=== PATIENT | female | born 1930 | race African-American/Black ===

== ENCOUNTER 2017-05-03 11:11 | Inpatient (IN) | payer OTHER ==
--- NOTE | 2017-05-03 11:15 | PDOC ---
Attending Attestation - Resident Resident Name: Abbe Guzmán - HPI HPI: 05/04/17 07:29 Pt presents to the ED complaining of shortness of breath and pleuritic upper abdominal pain. Patient has a history of COPD, and her symptoms are relieved somewhat with her inhaler. Upper abdominal pain has been present for " a while " as per her daughter, but became acutely worse today. DEnies nausea, vomiting or fever. history of renal failure with baseline Cr of 3. 05/04/17 07:41 - Physicial Exam PE: 05/04/17 07:35 Agree with resident exam. Lungs are clear with decreased air entry at the bases. Abdomen is tender in the epigastrium without guarding or rebound. Patient is tachypneic and tachycardic and appears uncomfortable. 05/04/17 07:41 - Medical Decision Making 05/04/17 08:53 Pt presents to the ED complaining of shortness of breath and upper abdominal pain. Differential included ACS, PE, biliary disease or other intraabdominal pathology, PNA. Initial EKG and troponin are negative. CT scan negative for severe intraabdominal pathology. Patient is unable to recieve contrast due to her chronic renal failure, but I am still suspcious for PE. Will anticoagulate and admit for serial cardiac enzymes and VQ scan.
[2017-05-03] MEDS ORDERED: predniSONE 20 MG TABLET (UD) PO ONE (11:23)
[2017-05-03] MEDS ORDERED: ALBUTEROL SO4 2.5/IPRATROPIUM 0.5 INH SOL 3 ML VIAL.NEB. NEB ONE (11:23)
[2017-05-03 11:24] VITALS: BMI 31.2
[2017-05-03] MEDS ORDERED: methylPREDNISolone NA SUCC 125 MG/2 ML VIAL ONE (11:31)
--- NOTE | 2017-05-03 12:02 | PDOC ---
History of Present Illness - General Chief Complaint: Shortness of Breath Stated Complaint: WEAKNESS Time Seen by Provider: 05/03/17 11:14 History Source: Patient, Family, Old Records Exam Limitations: Language Barrier - History of Present Illness Initial Comments: 05/03/17 12:05 87F Creole speaking woman with pmh of HTN, NIDDM, COPD (former smoker), SDH. CHF brought in by ambulance for increasing difficulty breathing for the past 3 days and upper right abdominal pain under her ribs, She was admitted and released from [facility] on February 19 for Nephrolithiasis treated with fluids. Patient appears tachypneic, shot of breath and tachycardic. 05/03/17 12:53 Past History - Past Medical History Allergies/Adverse Reactions: Allergies Allergy/AdvReac Type Severity Reaction Status Date / Time No Known Allergies Allergy Verified 05/03/17 11:25 Home Medications: Ambulatory Orders Albuterol Sulfate Inhaler - [Ventolin Hfa Inhaler -] 1 - 2 inh PO Q4H 05/03/17 Amlodipine Besylate [Norvasc -] 10 mg PO DAILY 05/03/17 Cyclosporine [Restasis] 1 each OP DAILY 05/03/17 Glipizide [Glipizide ER] 10 mg PO DAILY 05/03/17 Metoprolol Succinate [Toprol Xl -] 50 mg PO DAILY 05/03/17 Oxybutynin Chloride 5 mg PO DAILY 05/03/17 Pantoprazole Sodium [Protonix] 40 mg PO DAILY 05/03/17 Potassium Chloride [Klor-Con M20] 20 meq PO DAILY 05/03/17 Pregabalin [Lyrica] 75 mg PO HS 05/03/17 Rosuvastatin [Crestor -] 20 mg PO DAILY 05/03/17 Salmeterol/Fluticasone [Advair 100Mcg/50Mcg -] 1 inh PO BID 05/03/17 Tramadol HCl/Acetaminophen [Tramadol-Acetaminophn 37.5-325] 1 each PO PRN PRN Valsartan [Diovan] 160 mg PO DAILY 05/03/17 Asthma: Yes COPD: Yes Diabetes: Yes HTN: Yes Kidney Stones: Yes - Suicide/Smoking/Psychosocial Hx Smoking History: Former smoker Have you smoked in the past 12 months: No Information on smoking cessation initiated: No Hx Alcohol Use: No Drug/Substance Use Hx: No Substance Use Type: None Review of Systems - Review of Systems Able to Perform ROS?: Yes Is the patient limited Polish proficient: Yes Constitutional: No: Symptoms Reported HEENTM: No: Symptoms Reported Respiratory: Yes: Shortness of Breath, SOB at Rest, Productive cough Cardiac (ROS): Yes: Palpitations ABD/GI: No: Symptoms Reported *Physical Exam - Vital Signs Last Vital Signs Temp Pulse Resp BP Pulse Ox 97.4 F L 108 H 24 186/94 91 L 05/03/17 11:15 05/03/17 11:15 05/03/17 11:15 05/03/17 11:15 05/03/17 11:15 ED Treatment Course - LABORATORY CBC & Chemistry Diagram: 05/03/17 12:00 05/03/17 12:00 - RADIOLOGY Radiology Studies Ordered: Category Date Time Status CHEST X-RAY PORTABLE* [RAD] Stat Radiology 05/03/17 11:26 Ordered Medical Decision Making - Medical Decision Making 05/03/17 18:37 Partially distended stomach limiting evaluation of its wall with suggestion of thickening of the gastric body wall for which further evaluation with endoscopy is recommended to rule out an infectious versus infiltrative process. There is no evidence of small bowel obstruction. Small fat-containing right inguinal hernia with a herniating air filled bowel loop. Small fatcontaining left inguinal hernia. Moderate bibasal COPD changes with mild bibasal atelectatic changes and minimal right pleural effusion. Patient persistently tachycardic and with chest pain despite duoneb treatment. Elevated creatinine baseline. Will treat for PE prophylactically. *DC/Admit/Observation/Transfer Diagnosis at time of Disposition: Dyspnea, COPD exacerbation - Discharge Dispostion Admit: Yes - Referrals - Patient Instructions - Post Discharge Activity
[2017-05-03] MEDS ORDERED: morphine CARPU-JECT 2 MG/1 ML DISP.SYRIN IVPUSH ONE (12:17)
[2017-05-03 12:19] LABS: VENOUS PC02 48.8 mmHg (38-52); VENOUS PH 7.35 (7.32-7.42); VENOUS PO2 57.5 mmHg (28-48)
[2017-05-03] MEDS ORDERED: MORPHINE SULFATE 10 MG/1 ML *VIAL ONE (12:19)
[2017-05-03 12:20] LABS: BASO % 0.5 % (0-2.0); EOS % 0.8 % (0-4.5); HEMATOCRIT 33.8 % (32.4-45.2); HEMOGLOBIN 11.3 GM/dL (10.7-15.3); LYMPH % 14.9 % (8-40); MCHC 33.5 g/dl (32.0-36.0); MEAN CELL VOLUME 80.7 fl (80-96); MEAN PLT VOLUME 9.4 fl (7.5-11.1); MONO % 4.4 % (3.8-10.2); NEUT % 79.4 % (42.8-82.8); PLATELET COUNT 291 K/MM3 (134-434); RBC 4.19 M/mm3 (3.60-5.2); RDW 15.3 % (11.6-15.6); WHITE BLOOD COUNT 6.9 K/mm3 (4.0-10.0)
[2017-05-03] MEDS ORDERED: methylPREDNISolone NA SUCC 125 MG/2 ML VIAL IVPUSH ONE (12:25)
[2017-05-03 12:45] LABS: ALBUMIN 3.7 g/dl (3.4-5.0); ANION GAP 7 (8-16); BILIRUBIN,TOTAL 0.8 mg/dL (0.2-1.0); BLOOD UREA NITROGEN 27 mg/dL (7-18); CALCIUM 8.8 mg/dL (8.5-10.1); CHLORIDE 107 mmol/L (98-107); CO2 28 mmol/L (21-32); CREATININE 3.3 mg/dL (0.55-1.02); GLUCOSE,RANDOM 137 mg/dL (74-106); POTASSIUM 3.8 mmol/L (3.5-5.1); SGOT/AST 22 U/L (15-37); SGPT/ALT 26 U/L (12-78); SODIUM 142 mmol/L (136-145); TOT PROT 7.5 g/dl (6.4-8.2)
[2017-05-03 12:46] LABS: ALK PHOS 77 U/L (45-117)
[2017-05-03 12:48] LABS: INR 0.91 (0.82-1.09); PROTHROMBIN TIME (PATIENT) 10.3 SEC (9.98-11.88)
[2017-05-03 12:50] LABS: ACTIVATED PTT 31.8 SECONDS (26.9-34.4)
[2017-05-03] MEDS ORDERED: HEPARIN NA (PORCINE) 5,000 UNITS/ML 1ML VIAL IVPUSH PRN ×2 (17:02)
[2017-05-03] MEDS ORDERED: HEPARIN - 25,000 UNIT in SODIUM CHLORIDE 495 ML IV SCH (17:15)
[2017-05-03 18:15] LABS: URINE APPEARANCE CLEAR; URINE BILIRUBIN NEGATIVE (NEGATIVE); URINE BLOOD NEGATIVE (NEGATIVE); URINE COLOR LTYELLOW; URINE GLUCOSE (UA) 1+ (NEGATIVE); URINE KETONE TRACE (NEGATIVE); URINE LEUK ESTERASE NEGATIVE (NEGATIVE); URINE NITRITE NEGATIVE (NEGATIVE); URINE UROBILINOGEN NEGATIVE mg/dL (0.2-1.0)
[2017-05-03] MEDS ORDERED: HEPARIN SOD,PORK IN 0.45% NACL 25,000 UNITS/500 ML INFUS.BAG IVPB SCH (18:15)
[2017-05-03 18:44] LABS: URINE PROTEIN 3+ (NEGATIVE)
[2017-05-03] MEDS ORDERED: ALBUTEROL SO4 2.5/IPRATROPIUM 0.5 INH SOL 3 ML VIAL.NEB. NEB PRN (18:46)
--- NOTE | 2017-05-03 18:46 | PN ---
Teaching Attending Note Name of Resident: Fab Ignacio ATTENDING PHYSICIAN STATEMENT I saw and evaluated the patient. I reviewed the resident's note and discussed the case with the resident. I agree with the resident's findings and plan as documented. SUBJECTIVE: 87 yof with PMhx of HTN, NIDDM, CHF, CKD stage ?III (baseline cr 2.2 in 01/2017 as discussed with ED), remote SDH few years ago, chronic pain on tramadol, admitted to [facility] in for kidney stones managed conservatively, d/ kathryn on lasix 40 mg BID comes with vague complaints of right lower chest, right upper abdominal pain. Patient is Creole speaking and history is obtained from daughter at bedside. As discussed with daughter, patient has chronic pain concerns, generalized, had left flank pain during her admission in 01/2017, also Right upper abdominal pain /right lower chest pain that has been chronic but worsening over the last 2 weeks, prompting her to come to ED. reports sharp pain, constant aggravated by eating, deep breaths and relieve by warm compresses. Decreased PO intake over the last week. No fevers, chills, or urinary symptoms. Also reports worsening breathing (however per daughter at bedside, patient has similar breathing with any exertion or activity 12 point ROS attempted, patient vague historian, but positive as above. OBJECTIVE: Vital Signs Period Temp Pulse Resp BP Sys/Betancourt Pulse Ox Last 24 Hr 97.4 F-98 F 107-112 22-24 160-186/91-99 91-100 Intake & Output 04/30/17 05/01/17 05/02/17 05/03/17 23:59 23:59 23:59 23:59 Weight 160 lb GENERAL: anxious, holding right abdomen from pain, mouth breathing, mild use of acessory muscles of respiration HEAD: Normal with no signs of trauma. EYES: Pupils equal, round and reactive to light, extraocular movements intact, sclera anicteric, conjunctiva clear. No lid lag. EARS, NOSE, THROAT: Ears normal, nares patent, oropharynx clear without exudates. dry oral mucous membrane NECK: soft supple, neck vein distension, but neg reflux LUNGS: Breath sounds equal, clear to auscultation bilaterally. No wheezes, and no crackles. No accessory muscle use. HEART: regular tachycardic ABDOMEN: Soft, throughout, obese, right ruth-umbilical RUQ tenderness, also tenderness along right rib margin, no voluntary or involuntary guarding or rigidity, non specific moaning on exam. MUSCULOSKELETAL: Normal range of motion at all joints. No bony deformities or tenderness. left CVA tenderness (jumps in bed when examined) UPPER EXTREMITIES: 2+ pulses, warm, well-perfused. No cyanosis. No clubbing. No peripheral edema. LOWER EXTREMITIES: 2+ pulses, warm, well-perfused. No calf tenderness. No peripheral edema. NEUROLOGICAL: Cranial nerves II-XII intact. Normal speech. PSYCHIATRIC: anxious, restless SKIN: decreased skin turgor Home Medication List Medication Instructions Recorded Confirmed Type Albuterol Sulfate Inhaler - 1 - 2 inh PO Q4H 05/03/17 05/03/17 History [Ventolin Hfa Inhaler -] Amlodipine Besylate [Norvasc -] 10 mg PO DAILY 05/03/17 05/03/17 History Cyclosporine [Restasis] 1 each OP DAILY 05/03/17 05/03/17 History Glipizide [Glipizide ER] 10 mg PO DAILY 05/03/17 05/03/17 History Metoprolol Succinate [Toprol Xl -] 50 mg PO DAILY 05/03/17 05/03/17 History Oxybutynin Chloride 5 mg PO DAILY 05/03/17 05/03/17 History Pantoprazole Sodium [Protonix] 40 mg PO DAILY 05/03/17 05/03/17 History Potassium Chloride [Klor-Con M20] 20 meq PO DAILY 05/03/17 05/03/17 History Pregabalin [Lyrica] 75 mg PO HS 05/03/17 05/03/17 History Rosuvastatin [Crestor -] 20 mg PO DAILY 05/03/17 05/03/17 History Salmeterol/Fluticasone [Advair 1 inh PO BID 05/03/17 05/03/17 History 100Mcg/50Mcg -] Tramadol HCl/Acetaminophen 1 each PO PRN PRN 05/03/17 05/03/17 History [Tramadol-Acetaminophn 37.5-325] Valsartan [Diovan] 160 mg PO DAILY 05/03/17 05/03/17 History Active Medications Generic Name Dose Route Start Last Admin Trade Name Freq PRN Reason Stop Dose Admin Heparin Sodium (Porcine) 1,000 unit 05/03/17 17:02 Heparin - IVPUSH PRN PRN Heparin Heparin Sodium (Porcine) 5,000 unit 05/03/17 17:02 Heparin - IVPUSH PRN PRN Heparin HEPARIN SOD,PORK IN 0.45% NACL 25,000 units in 500 mls @ 20 mls/hr 05/03/17 18 :15 05/03/17 18:28 Heparin-1/2ns 25,000 Units/500 IVPB 1,000 units/hr TITR FORREST 20 mls/hr Protocol Administration 1,000 UNITS/HR Laboratory Results - last 24 hr 05/03/17 05/03/17 05/03/17 12:00 12:00 12:00 WBC 6.9 RBC 4.19 Hgb 11.3 Hct 33.8 MCV 80.7 MCH 27.0 MCHC 33.5 RDW 15.3 Plt Count 291 MPV 9.4 Neutrophils % 79.4 Lymphocytes % 14.9 Monocytes % 4.4 Eosinophils % 0.8 Basophils % 0.5 PT with INR INR PTT (Actin FS) VBG pH 7.35 POC VBG pCO2 48.8 POC VBG pO2 57.5 H Mixed VBG HCO3 26.2 H Sodium 142 Potassium 3.8 Chloride 107 Carbon Dioxide 28 Anion Gap 7 L BUN 27 H Creatinine 3.3 H Creat Clearance w eGFR 13.22 Random Glucose 137 H Lactic Acid Calcium 8.8 Total Bilirubin 0.8 AST 22 ALT 26 Alkaline Phosphatase 77 Creatine Kinase Creatine Kinase Index CK-MB (CK-2) Troponin I Total Protein 7.5 Albumin 3.7 Urine Color Urine Appearance Urine pH Ur Specific [place] Urine Protein Urine Glucose (UA) Urine Ketones Urine Blood Urine Nitrite Urine Bilirubin Urine Urobilinogen Ur Leukocyte Esterase Blood Type Antibody Screen 05/03/17 05/03/17 05/03/17 12:00 12:00 12:00 WBC RBC Hgb Hct MCV MCH MCHC RDW Plt Count MPV Neutrophils % Lymphocytes % Monocytes % Eosinophils % Basophils % PT with INR 10.30 INR 0.91 PTT (Actin FS) 31.8 VBG pH POC VBG pCO2 POC VBG pO2 Mixed VBG HCO3 Sodium Potassium Chloride Carbon Dioxide Anion Gap BUN Creatinine Creat Clearance w eGFR Random Glucose Lactic Acid 0.8 Calcium Total Bilirubin AST ALT Alkaline Phosphatase Creatine Kinase 202 H Creatine Kinase Index 1.2 CK-MB (CK-2) 2.442 Troponin I 0.02 Total Protein Albumin Urine Color Urine Appearance Urine pH Ur Specific [place] Urine Protein Urine Glucose (UA) Urine Ketones Urine Blood Urine Nitrite Urine Bilirubin Urine Urobilinogen Ur Leukocyte Esterase Blood Type Antibody Screen 05/03/17 05/03/17 12:00 18:00 WBC RBC Hgb Hct MCV MCH MCHC RDW Plt Count MPV Neutrophils % Lymphocytes % Monocytes % Eosinophils % Basophils % PT with INR INR PTT (Actin FS) VBG pH POC VBG pCO2 POC VBG pO2 Mixed VBG HCO3 Sodium Potassium Chloride Carbon Dioxide Anion Gap BUN Creatinine Creat Clearance w eGFR Random Glucose Lactic Acid Calcium Total Bilirubin AST ALT Alkaline Phosphatase Creatine Kinase Creatine Kinase Index CK-MB (CK-2) Troponin I Total Protein Albumin Urine Color Ltyellow Urine Appearance Clear Urine pH 6.0 Ur Specific [place] 1.014 Urine Protein 3+ H Urine Glucose (UA) 1+ H Urine Ketones Trace H Urine Blood Negative Urine Nitrite Negative Urine Bilirubin Negative Urine Urobilinogen Negative Ur Leukocyte Esterase Negative Blood Type A POSITIVE Antibody Screen Negative EKG sinus tach 100s, LVH with strain pattern CXR - ASSESSMENT AND PLAN: 87 yof with HTN, NIDDM, CKD ?stage III, ?CHF, remote SDH, nephrolithiasis admitted with dyspnea, right chest/abdominal pain and LUCY -right chest/abdominal pain, limiting exam and history, ? GB process, stone ruled out on CT A/P, cannot r/o PE given tachycardia, dyspnea, pleuritic component and not very ambulatory at baseline -Dyspnea, ?Anxiety vs Mild Asthma exac (no wheezing or decreased air entry noteD ), r/o PE -Sinus tachycardia, ?from pain, anxiety, r/o PE -LUCY suspect prerenal from decreased PO intake based on history and exam. -NIDDM -HTN -remote SDH Plan: Clears, RUQ ultrasound, pain control with morphine. Zofran prn, serial abdominal exams. IV PPI Emperic heparin (FOBt and CT head though no recent h/o falls/bleed and h/o SDh is remote), LE ultrasound and V/Q scan. pulmonary input based on findings. HOld furosemide, ARB. urine lytes, strict I/Os, renal consult, renal ultrasound. Hold oral hypoglycemics, ISS, diabetic diet Continue metoprolol, amlodipine and statin. IV PPI, heparin drip as above. Plan discussed with patient and daughter at bedside in detail, all questions answered. Total admit time spent 65 min.
[2017-05-03 18:47] LABS: URINE BACTERIA RARE /hpf (NONE SEEN); URINE MUCUS RARE
[2017-05-03] MEDS ORDERED: MORPHINE SULFATE 10 MG/1 ML *VIAL IVPUSH PRN (18:47)
[2017-05-03] MEDS ORDERED: ACETAMINOPHEN 1000 MG/100 ML VIAL (NON FORMULARY) IVPB PRN (18:47)
[2017-05-03] MEDS ORDERED: MAG HYDROX/AL HYDROX/SIMETH 30 ML UNIT-DOSE CUP PO PRN (18:53)
--- NOTE | 2017-05-03 19:16 | HP ---
CHIEF COMPLAINT: pain in right upper quadrant abdomen and lower part of chest on right side, dyspnea HISTORY OF PRESENT ILLNESS: patient is spoor historian,Patient is Creole speaking, history is obtained from daughter at bedside. 87 yof with PMhx of HTN , NIDDM, CHF, CKD stage ?III (baseline cr 2.2 in 01/2017 as discussed with ED), remote SDH few years ago, chronic pain on tramadol, [facility] for kidney stones managed conservatively and was discharged on lasix 40 mg BID. Patient now came in with a complaint on pain in right upper quadrant and lower part of chest on right side.patient states that she has chronic pain which is generalized, She reports that she has this right upper quadrant pain / right lower chest from many months but it got worse in last 2 week, sharp in nature, constant, non radiating, 10/10 in intensity, increases with breathing and touch, also inccreases with eating. Gets better with warm compresses. Patient also reports that she has decreased oral intake over the last week due to pain. Patient also reports that some time she vomits but no episode in last 2 -3 weeks. Denies fevers, chills, or urinary symptoms, productive cough( has chronic cough). Patient also reports that her breathing got worse but daughter states that this is her base line and some time she breathes from mouth. Denies orthopnea, paroxysmal dyspnea, increase swelling in legs ER course was notable for: (1)cbc, cmp, ct abdomen, cxr (2)heparin drip (3)morphine Recent Travel: no PAST MEDICAL HISTORY: as above Social History: Smoking: stopped 20 years ago Alcohol:no Drugs: no Family History: not relevent Allergies No Known Allergies Allergy (Verified 05/03/17 11:25) HOME MEDICATIONS: Home Medications Medication Instructions Recorded Albuterol Sulfate Inhaler - 1 - 2 inh PO Q4H 05/03/17 [Ventolin Hfa Inhaler -] Amlodipine Besylate [Norvasc -] 10 mg PO DAILY 05/03/17 Cyclosporine [Restasis] 1 each OP DAILY 05/03/17 Glipizide [Glipizide ER] 10 mg PO DAILY 05/03/17 Metoprolol Succinate [Toprol Xl -] 50 mg PO DAILY 05/03/17 Oxybutynin Chloride 5 mg PO DAILY 05/03/17 Pantoprazole Sodium [Protonix] 40 mg PO DAILY 05/03/17 Potassium Chloride [Klor-Con M20] 20 meq PO DAILY 05/03/17 Pregabalin [Lyrica] 75 mg PO HS 05/03/17 Rosuvastatin [Crestor -] 20 mg PO DAILY 05/03/17 Salmeterol/Fluticasone [Advair 1 inh PO BID 05/03/17 100Mcg/50Mcg -] Tramadol HCl/Acetaminophen 1 each PO PRN PRN 05/03/17 [Tramadol-Acetaminophn 37.5-325] Valsartan [Diovan] 160 mg PO DAILY 05/03/17 REVIEW OF SYSTEMS CONSTITUTIONAL: Absent: fever, chills, diaphoresis, generalized weakness, malaise, loss of appetite, weight change HEENT: Absent: rhinorrhea, nasal congestion, throat pain, throat swelling, CARDIOVASCULAR: Absent: syncope, palpitations, irregular heart rate, lightheadedness, peripheral edema RESPIRATORY: Absent: dyspnea with exertion, orthopnea, wheezing, stridor, hemoptysis GASTROINTESTINAL: as above GENITOURINARY: Absent: dysuria, frequency, urgency, hesitancy, hematuria, flank pain, genital pain MUSCULOSKELETAL: as above SKIN: Absent: rash, itching, pallor NEUROLOGIC: Absent: headache, focal weakness or paresthesias, PSYCHIATRIC: Absent: anxiety, depressi PHYSICAL EXAMINATION Vital Signs - 24 hr 05/03/17 05/03/17 05/03/17 11:15 11:18 11:30 Temperature 97.4 F L 97.9 F Pulse Rate 108 H 107 H Pulse Rate [ 107 H Left Radial] Respiratory 24 24 Rate Blood Pressure 186/94 Blood Pressure 168/99 [Right Arm] O2 Sat by Pulse 91 L 100 100 Oximetry (%) 05/03/17 05/03/17 05/03/17 11:55 14:56 18:25 Temperature 97.9 F Pulse Rate Pulse Rate [ 111 H 115 H 112 H Left Radial] Respiratory 22 20 24 Rate Blood Pressure Blood Pressure 160/91 161/90 173/92 [Right Arm] O2 Sat by Pulse 100 100 100 Oximetry (%) 05/03/17 05/03/17 18:40 18:42 Temperature 97.9 F 98 F Pulse Rate Pulse Rate [ 112 H Left Radial] Respiratory 24 Rate Blood Pressure Blood Pressure 173/92 [Right Arm] O2 Sat by Pulse 100 Oximetry (%) GENERAL:in acute distress from pain HEAD: Normal with no signs of trauma. EARS, NOSE, THROAT: dry mucous membranes. NECK: Normal range of motion, supple without lymphadenopathy, LUNGS: Breath sounds equal,decrease air entry, clear to auscultation bilaterally. No wheezes, mild crackels on right base, HEART: s1s2 normal ABDOMEN: Soft, tender in right upper quadrant, not distended, normoactive bowel sounds, no guarding, rebound tenderness present, MUSCULOSKELETAL: tenderness on lower part on right side of chest UPPER EXTREMITIES: 2+ pulses, warm, well-perfused. No cyanosis. LOWER EXTREMITIES: No peripheral edema. PSYCHIATRIC: Cooperative. Good eye contact. SKIN: Warm, dry, Laboratory Results - last 24 hr 05/03/17 05/03/17 05/03/17 12:00 12:00 12:00 WBC 6.9 RBC 4.19 Hgb 11.3 Hct 33.8 MCV 80.7 MCH 27.0 MCHC 33.5 RDW 15.3 Plt Count 291 MPV 9.4 Neutrophils % 79.4 Lymphocytes % 14.9 Monocytes % 4.4 Eosinophils % 0.8 Basophils % 0.5 PT with INR INR PTT (Actin FS) VBG pH 7.35 POC VBG pCO2 48.8 POC VBG pO2 57.5 H Mixed VBG HCO3 26.2 H Sodium 142 Potassium 3.8 Chloride 107 Carbon Dioxide 28 Anion Gap 7 L BUN 27 H Creatinine 3.3 H Creat Clearance w eGFR 13.22 Random Glucose 137 H Lactic Acid Calcium 8.8 Total Bilirubin 0.8 AST 22 ALT 26 Alkaline Phosphatase 77 Creatine Kinase Creatine Kinase Index CK-MB (CK-2) Troponin I Total Protein 7.5 Albumin 3.7 Urine Color Urine Appearance Urine pH Ur Specific [place] Urine Protein Urine Glucose (UA) Urine Ketones Urine Blood Urine Nitrite Urine Bilirubin Urine Urobilinogen Ur Leukocyte Esterase Urine WBC (Auto) Urine RBC (Auto) Urine Bacteria Urine Mucus Blood Type Antibody Screen 05/03/17 05/03/17 05/03/17 12:00 12:00 12:00 WBC RBC Hgb Hct MCV MCH MCHC RDW Plt Count MPV Neutrophils % Lymphocytes % Monocytes % Eosinophils % Basophils % PT with INR 10.30 INR 0.91 PTT (Actin FS) 31.8 VBG pH POC VBG pCO2 POC VBG pO2 Mixed VBG HCO3 Sodium Potassium Chloride Carbon Dioxide Anion Gap BUN Creatinine Creat Clearance w eGFR Random Glucose Lactic Acid 0.8 Calcium Total Bilirubin AST ALT Alkaline Phosphatase Creatine Kinase 202 H Creatine Kinase Index 1.2 CK-MB (CK-2) 2.442 Troponin I 0.02 Total Protein Albumin Urine Color Urine Appearance Urine pH Ur Specific [place] Urine Protein Urine Glucose (UA) Urine Ketones Urine Blood Urine Nitrite Urine Bilirubin Urine Urobilinogen Ur Leukocyte Esterase Urine WBC (Auto) Urine RBC (Auto) Urine Bacteria Urine Mucus Blood Type Antibody Screen 05/03/17 05/03/17 12:00 18:00 WBC RBC Hgb Hct MCV MCH MCHC RDW Plt Count MPV Neutrophils % Lymphocytes % Monocytes % Eosinophils % Basophils % PT with INR INR PTT (Actin FS) VBG pH POC VBG pCO2 POC VBG pO2 Mixed VBG HCO3 Sodium Potassium Chloride Carbon Dioxide Anion Gap BUN Creatinine Creat Clearance w eGFR Random Glucose Lactic Acid Calcium Total Bilirubin AST ALT Alkaline Phosphatase Creatine Kinase Creatine Kinase Index CK-MB (CK-2) Troponin I Total Protein Albumin Urine Color Ltyellow Urine Appearance Clear Urine pH 6.0 Ur Specific [place] 1.014 Urine Protein 3+ H Urine Glucose (UA) 1+ H Urine Ketones Trace H Urine Blood Negative Urine Nitrite Negative Urine Bilirubin Negative Urine Urobilinogen Negative Ur Leukocyte Esterase Negative Urine WBC (Auto) 3 Urine RBC (Auto) 2 Urine Bacteria Rare Urine Mucus Rare Blood Type A POSITIVE Antibody Screen Negative EKG sinus tach 100s, LVH with strain pattern ASSESSMENT AND PLAN: 87 yof with HTN, NIDDM, CKD ?stage III, ?CHF, remote SDH, nephrolithiasis admitted with dyspnea, right chest/abdominal pain and LUCY - Right chest/abdominal pain: d/d can be GB stone, PE can not be ruled out patient tachycardia, dyspnea, not ambulatory, Pluritic - CT abdomne reviewed - Ultrasound liver ordered, CT is not sensitive for GB stones. - V/Q scan for pe ordered in ED , cant get CTA due to lucy - Pain control with morphine and tylenol, avoid NSAID - Monito vitals. - Monitor intake and output - stated on clear liquid ( not on iV fluid, has h/o chf) - Zofranfor vomiting - Protonix 40 bid COPD - no wheezing, got solu 125 in ed on duoneb symbicort keep spo2>90 pulmonology consult Tachycardia: could be due to pain, anxiety, pe on heparin drip Follow v/q scan and duplex scan FOBt and CT head ordered ( h/o sdh many year ago) -LUCY likely prerenal stop home lasix 40 bid urine electrolytes, pro: cratnine ordered renal ultrasound ordered avoid nephrotoxic drugs nephro consult DM BGM novalog sliding scale hold oral hypoglycemic HTN hold valsartan continue with amlodipine and metoprolol HLD continue with statin fluid: orally allowed electrolyte: repeat in am diet: clear liquid gi pro: protonix 40 bid dvt pro; heparin drip dispo: tele Visit type - Emergency Visit Emergency Visit: Yes ED Registration Date: 05/03/17 Care time: The patient presented to the Emergency Department on the above date and was hospitalized for further evaluation of their emergent condition. - New Patient This patient is new to me today: Yes Date on this admission: 05/03/17 - Critical Care Critical Care patient: No Hospitalist Screening - Colonoscopy Questionnaire Colonoscopy Questionnaire: Colonoscopy Questionnaire - Patient: 50 - 75 years old and never had a screening colonoscopy: Unknown History of colon or rectal polyps, or CA: Unknown History of IBD, Crohn's disease or UC: Unknown History of abdominal radiation therapy as a child: Unknown - Relative: 1 with colon or rectal CA, or polyps at age 60 or younger: Unknown Colon or rectal CA diagnosed at age 45 or younger: Unknown Multiple relatives with colon or rectal CA: Unknown - Outcome: Screening Result: Negative Screen
[2017-05-03] MEDS ORDERED: amLODIPine BESYLATE 5 MG TABLET (FP) PO ONE (22:22)
[2017-05-03] MEDS: PREGABALIN 25 MG CAPSULE PO SCH (22:35)
[2017-05-03] MEDS: PANTOPRAZOLE SODIUM 40 MG VIAL IVPUSH SCH (22:35)
[2017-05-03] MEDS: METOPROLOL TARTRATE 50 MG TABLET (FP) PO SCH (22:35)
[2017-05-03] MEDS: INSULIN SLIDING SCALE (NOVOLOG) 1 VIAL SQ SCH (22:44)
[2017-05-03] MEDS ORDERED: MELATONIN 5 MG TABLETS PO ONE (23:00)
[2017-05-03] MEDS: BUDESONIDE/FORMETEROL FUMARATE 160/4.5 mcg INHALER IH SCH (23:16)
[2017-05-04] MEDS: INSULIN SLIDING SCALE (NOVOLOG) 1 VIAL SQ SCH ×4 (07:44→21:43)
[2017-05-04 08:06] LABS: BASO % 0.2 % (0-2.0); HEMATOCRIT 28.2 % (32.4-45.2); HEMOGLOBIN 9.5 GM/dL (10.7-15.3); MCH 27.4 pg (25.7-33.7); MCHC 33.5 g/dl (32.0-36.0); MEAN CELL VOLUME 81.7 fl (80-96); MEAN PLT VOLUME 9.4 fl (7.5-11.1); MONO % 10.8 % (3.8-10.2); PLATELET COUNT 252 K/MM3 (134-434); RBC 3.46 M/mm3 (3.60-5.2); RDW 15.1 % (11.6-15.6); WHITE BLOOD COUNT 4.8 K/mm3 (4.0-10.0)
[2017-05-04 08:31] LABS: ANION GAP 12 (8-16); BLOOD UREA NITROGEN 36 mg/dL (7-18); CALCIUM 8.6 mg/dL (8.5-10.1); CHLORIDE 108 mmol/L (98-107); CO2 25 mmol/L (21-32); CREATININE 3.8 mg/dL (0.55-1.02); GLUCOSE,RANDOM 103 mg/dL (74-106); MAGNESIUM 2.3 mg/dL (1.8-2.4); PHOSPHOROUS 5.1 mg/dL (2.5-4.9); POTASSIUM 4.3 mmol/L (3.5-5.1); SGOT/AST 16 U/L (15-37); SGPT/ALT 21 U/L (12-78); SODIUM 145 mmol/L (136-145)
[2017-05-04 08:36] LABS: ALK PHOS 62 U/L (45-117); BILIRUBIN,TOTAL 0.5 mg/dL (0.2-1.0); TOT PROT 6.5 g/dl (6.4-8.2)
[2017-05-04] MEDS ORDERED: hydrALAZINE HCL 20 MG/ML VIAL IVPUSH PRN (08:41)
[2017-05-04] MEDS ORDERED: amLODIPine BESYLATE 10 MG TABLET (FP) PO SCH (10:00)
[2017-05-04] MEDS ORDERED: PANTOPRAZOLE SODIUM 40 MG VIAL IVPUSH SCH (10:00)
[2017-05-04] MEDS ORDERED: VALSARTAN 160 MG TABLET (UD) PO SCH (10:00)
[2017-05-04] MEDS: amLODIPine BESYLATE 10 MG TABLET (FP) PO SCH (10:25)
[2017-05-04] MEDS: METOPROLOL TARTRATE 50 MG TABLET (FP) PO SCH ×2 (10:25→21:19)
[2017-05-04] MEDS: PANTOPRAZOLE SODIUM 40 MG VIAL IVPUSH SCH ×2 (10:25→21:22)
--- NOTE | 2017-05-04 10:54 | CONSULT ---
Consult - text type - Consultation Consultation Note: NEUROSURGERY CONSULTATION Araceli Crouch is a 87 year old female with multiple medical problems who was brought to the [facility] ER yesterday with shortness of breath and flank pain. She has a history of bilateral Subdural hematoma drainage 10 years ago at [facility]. CT Head demonstrates a very thin subdural hematoma layering on the Right sided tentorium with no mass effect. Patient is at her Neurological baseline and per her daughter is alert and oriented although in some respiratory discomfort. Repeat Head CT is stable. At this point, there is no acute Neurosurgical intervention which is planned for this small intracranial bleed and most likely no further imaging will be needed unless she develops new symptoms. I have given them contact information and discussed situations where further investigation may be considered.
[2017-05-04] MEDS: BUDESONIDE/FORMETEROL FUMARATE 160/4.5 mcg INHALER IH SCH ×2 (13:15→21:22)
--- NOTE | 2017-05-04 13:50 | CON.PULM ---
Consult Consult Specialty:: PULMONARY Referred by:: Dr. Ignacio Reason for Consultation:: shortness of breath - History of Present Illness Chief Complaint: shortness of breath History of Present Illness: 87yo female with h/o HTN, DM, CKD, CHF, COPD, subdural hematoma who was admitted with RUQ/chest pain. Also reports worsening shortness of breath from her baseline. Reports a cough productive of white sputum and wheezing. No fevers , chills or sweats. No sick contacts or recent travel. She does follow with an outside head of sales and marketing who has told her that she has COPD and restrictive lung disease. She was a heavy smoker in the past, is originally from [facility]. 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 No occupational exposures. She is maintained at home on Advair, atrovent and proair. Does not use home oxygen. Occasional cough while eating. - History Source History Provided By: Patient, Family Member, Medical Record Limitations to Obtaining History: Language Barrier - Past Medical History Cardio/Vascular: Yes: HTN Pulmonary: Yes: COPD ...: No Endocrine: Yes: Diabetes Mellitus - Alcohol/Substance Use Hx Alcohol Use: No - Smoking History Smoking history: Former smoker Have you smoked in the past 12 months: No Home Medications - Allergies Allergies/Adverse Reactions: Allergies Allergy/AdvReac Type Severity Reaction Status Date / Time No Known Allergies Allergy Verified 05/03/17 11:25 - Home Medications Home Medications: Ambulatory Orders Albuterol Sulfate Inhaler - [Ventolin Hfa Inhaler -] 1 - 2 inh PO Q4H 05/03/17 Amlodipine Besylate [Norvasc -] 10 mg PO DAILY 05/03/17 Cyclosporine [Restasis] 1 each OP DAILY 05/03/17 Glipizide [Glipizide ER] 10 mg PO DAILY 05/03/17 Metoprolol Succinate [Toprol Xl -] 50 mg PO DAILY 05/03/17 Oxybutynin Chloride 5 mg PO DAILY 05/03/17 Pantoprazole Sodium [Protonix] 40 mg PO DAILY 05/03/17 Potassium Chloride [Klor-Con M20] 20 meq PO DAILY 05/03/17 Pregabalin [Lyrica] 75 mg PO HS 05/03/17 Rosuvastatin [Crestor -] 20 mg PO DAILY 05/03/17 Salmeterol/Fluticasone [Advair 100Mcg/50Mcg -] 1 inh PO BID 05/03/17 Tramadol HCl/Acetaminophen [Tramadol-Acetaminophn 37.5-325] 1 each PO PRN PRN Valsartan [Diovan] 160 mg PO DAILY 05/03/17 Review of Systems - Review of Systems Constitutional: denies: Chills, Fever, Weakness Eyes: denies: Recent Change in Vision Neck: denies: Stiffness, Tenderness Cardiovascular: reports: Chest Pain, Shortness of Breath. denies: Edema, Palpitations Respiratory: reports: Cough, Exercise Intolerance, SOB on Exertion, Wheezing. denies: Hemoptysis Gastrointestinal: reports: Abdominal Pain. denies: Nausea, Vomiting Genitourinary: denies: Dysuria, Hematuria Neurological: denies: Dizziness, Headache Physical Exam Vital Sings: Vital Signs Temperature 98.9 F 05/04/17 05:00 Pulse Rate 93 H 05/04/17 05:00 Respiratory Rate 20 05/04/17 05:00 Blood Pressure 143/84 05/04/17 05:00 O2 Sat by Pulse Oximetry (%) 95 05/04/17 03:01 Constitutional: Yes: Mild Distress (tachypneic with minimal exertion) Eyes: Yes: Conjunctiva Clear, EOM Intact HENT: Yes: Atraumatic, Normocephalic Neck: Yes: Supple, Trachea Midline Cardiovascular: Yes: Regular Rate and Rhythm Respiratory: Yes: Rhonchi, Wheezes ...Clubbing: No Gastrointestinal: Yes: Normal Bowel Sounds, Soft. No: Tenderness Edema: No Labs: CBC, BMP 05/04/17 06:00 05/04/17 07:28 Imaging - Results Chest X-ray: Report Reviewed, Image Reviewed (RLL infiltrate) Problem List - Problems (1) COPD exacerbation Code(s): J44.1 - CHRONIC OBSTRUCTIVE PULMONARY DISEASE W (ACUTE) EXACERBATION (2) Pneumonia Code(s): J18.9 - PNEUMONIA, UNSPECIFIED ORGANISM (3) Hypertension Code(s): I10 - ESSENTIAL (PRIMARY) HYPERTENSION (4) Diabetes Code(s): E11.9 - TYPE 2 DIABETES MELLITUS WITHOUT COMPLICATIONS (5) Hypercholesterolemia Code(s): E78.00 - PURE HYPERCHOLESTEROLEMIA, UNSPECIFIED Assessment/Plan Acute COPD Exacerbation r/o Pneumonia/Aspiration HTN DM Hypercholesterolemia - IV medrol - inhaled bronchodilators standing and PRN - will start empiric antibiotics even though pt afebrile and with normal WBC as pt with increasing RLL infiltrate and pleuritic pain - O2 to keep Spo2 >90% - monitor CXR - low suspicion for VTE given negative LE dopplers and pt actively wheezing on exam with significant COPD history, can defer V/Q scan - DVT prophylaxis Thank you for this consult Campos Kolb MD
[2017-05-04] MEDS ORDERED: ALBUTEROL SO4 0.083% IH SOL 2.5 MG/3 ML VIAL.NEB. NEB PRN (13:54)
--- NOTE | 2017-05-04 14:26 | EKG ---
Test Reason : Blood Pressure : / mmHG Vent. Rate : 108 BPM Atrial Rate : 108 BPM P-R Int : 180 ms QRS Dur : 076 ms QT Int : 330 ms P-R-T Axes : 075 073 092 degrees QTc Int : 442 ms POOR DATA QUALITY, INTERPRETATION MAY BE ADVERSELY AFFECTED SINUS TACHYCARDIA LEFT VENTRICULAR HYPERTROPHY WITH REPOLARIZATION ABNORMALITY NONSPECIFIC T WAVE ABNORMALITY ABNORMAL ECG Confirmed by MD JESSICA, VIPUL ([id number]) on 05/04/2017 2:25:50 PM Referred By: Confirmed By:VIPUL LOPEZ MD
--- NOTE | 2017-05-04 14:46 | PN ---
Teaching Attending Note Name of Resident: May Coyle Time of evaluation: 8:40 AM SUBJECTIVE: Patient seen and examined, sleeping comfortable, when woken up, denies any dyspnea or pain, no headaches, new weakness or concerns noted. OBJECTIVE: Vital Signs Period Temp Pulse Resp BP Sys/Betancourt Pulse Ox Last 24 Hr 97.9 F-99.0 F 86-115 18-24 141-178/75-92 95-100 Intake & Output 05/01/17 05/02/17 05/03/17 05/04/17 23:59 23:59 23:59 23:59 Intake Total 140 Balance 140 Weight 160 lb 160 lb General: comfortable in bed CVS;S1S2 regular Chest: decreased air entry with basilar rales, no active wheezing heard currently Abdomen: soft, obese, NT throughout, no RUQ or CVA tenderness elicited currently , no tenderness along right rib margin noted currently Neuro AA, power 5/5, EOMI, PERRL, facial symmetry, sensation intact to light touch, non focal exam Extremities: no edema Home Medication List Medication Instructions Recorded Confirmed Type Albuterol Sulfate Inhaler - 1 - 2 inh PO Q4H 05/03/17 05/03/17 History [Ventolin Hfa Inhaler -] Amlodipine Besylate [Norvasc -] 10 mg PO DAILY 05/03/17 05/03/17 History Cyclosporine [Restasis] 1 each OP DAILY 05/03/17 05/03/17 History Glipizide [Glipizide ER] 10 mg PO DAILY 05/03/17 05/03/17 History Metoprolol Succinate [Toprol Xl -] 50 mg PO DAILY 05/03/17 05/03/17 History Oxybutynin Chloride 5 mg PO DAILY 05/03/17 05/03/17 History Pantoprazole Sodium [Protonix] 40 mg PO DAILY 05/03/17 05/03/17 History Potassium Chloride [Klor-Con M20] 20 meq PO DAILY 05/03/17 05/03/17 History Pregabalin [Lyrica] 75 mg PO HS 05/03/17 05/03/17 History Rosuvastatin [Crestor -] 20 mg PO DAILY 05/03/17 05/03/17 History Salmeterol/Fluticasone [Advair 1 inh PO BID 05/03/17 05/03/17 History 100Mcg/50Mcg -] Tramadol HCl/Acetaminophen 1 each PO PRN PRN 05/03/17 05/03/17 History [Tramadol-Acetaminophn 37.5-325] Valsartan [Diovan] 160 mg PO DAILY 05/03/17 05/03/17 History Active Medications Generic Name Dose Route Start Last Admin Trade Name Shubham PRN Reason Stop Dose Admin Acetaminophen 1,000 mg 05/03/17 18:47 Ofirmev Injection - IVPB Q6H PRN PAIN LEVEL 1-5 Al Hydroxide/Mg Hydroxide 30 ml 05/03/17 18:53 Mylanta Oral Suspension - PO Q6H PRN DYSPEPSIA Albuterol Sulfate 1 amp 05/04/17 13:54 Ventolin 0.083% Nebulizer Soln - NEB Q4H PRN SHORT OF BREATH/WHEEZING Albuterol/Ipratropium 1 amp 05/04/17 16:00 Duoneb - NEB RQID [facility] Amlodipine Besylate 10 mg 05/04/17 10:00 05/04/17 10:25 Norvasc - PO 10 mg DAILY [facility] Administration Budesonide/Formoterol Fumarate 2 puff 05/03/17 22:00 05/04/17 13:15 Symbicort 160/4.5mcg - IH 2 puff BID [facility] Administration Hydralazine HCl 10 mg 05/04/17 08:41 Apresoline Injection - IVPUSH Q6H PRN HYPERTENSION CEFTRIAXONE 1 G/50 ML PREMIX 50 mls @ 100 mls/hr 05/04/17 14:00 Ceftriaxone 1 Gm-D5w Bag IVPB DAILY [facility] Azithromycin 500 mg/ Dextrose 250 mls @ 250 mls/hr 05/04/17 14:00 IVPB 05/08/17 10:59 DAILY [facility] Insulin Aspart 1 vial 05/03/17 22:00 05/04/17 13:15 Novolog Vial Sliding Scale - SQ Not Given ACHS [facility] Protocol Methylprednisolone Sodium Succinate 60 mg 05/04/17 14:00 Solu-Medrol - IVPUSH Q8H-IV [facility] Metoprolol Tartrate 50 mg 05/03/17 22:00 05/04/17 10:25 Lopressor - PO 50 mg BID [facility] Administration Morphine Sulfate 1 mg 05/03/17 18:47 Morphine Injection - IVPUSH Q4H PRN PAIN LEVEL 6-10 Pantoprazole Sodium 40 mg 05/03/17 22:00 05/04/17 10:25 Protonix Iv IVPUSH 40 mg BID [facility] Administration Pregabalin 75 mg 05/03/17 22:00 05/03/17 22:35 Lyrica - PO 75 mg HS [facility] Administration Rosuvastatin Calcium 20 mg 05/04/17 22:00 Crestor - PO HS [facility] Laboratory Results - last 24 hr 05/03/17 05/03/17 05/03/17 12:00 18:00 18:04 WBC RBC Hgb Hct MCV MCH MCHC RDW Plt Count MPV Neutrophils % Lymphocytes % Monocytes % Eosinophils % Basophils % Sodium Potassium Chloride Carbon Dioxide Anion Gap BUN Creatinine Creat Clearance w eGFR POC Glucometer Random Glucose Hemoglobin A1c % Lactic Acid 0.8 Calcium Phosphorus Magnesium Total Bilirubin AST ALT Alkaline Phosphatase Creatine Kinase 197 H Creatine Kinase Index 1.4 CK-MB (CK-2) 2.772 Troponin I 0.03 B-Natriuretic Peptide Total Protein Albumin Urine Color Ltyellow Urine Appearance Clear Urine pH 6.0 Ur Specific [place] 1.014 Urine Protein 3+ H Urine Glucose (UA) 1+ H Urine Ketones Trace H Urine Blood Negative Urine Nitrite Negative Urine Bilirubin Negative Urine Urobilinogen Negative Ur Leukocyte Esterase Negative Urine WBC (Auto) 3 Urine RBC (Auto) 2 Urine Bacteria Rare Urine Mucus Rare 05/03/17 05/03/17 05/04/17 18:04 22:42 05:38 WBC RBC Hgb Hct MCV MCH MCHC RDW Plt Count MPV Neutrophils % Lymphocytes % Monocytes % Eosinophils % Basophils % Sodium Potassium Chloride Carbon Dioxide Anion Gap BUN Creatinine Creat Clearance w eGFR POC Glucometer 210 113 Random Glucose Hemoglobin A1c % Lactic Acid Calcium Phosphorus Magnesium Total Bilirubin AST ALT Alkaline Phosphatase Creatine Kinase Creatine Kinase Index CK-MB (CK-2) Troponin I B-Natriuretic Peptide 2186.06 H Total Protein Albumin Urine Color Urine Appearance Urine pH Ur Specific [place] Urine Protein Urine Glucose (UA) Urine Ketones Urine Blood Urine Nitrite Urine Bilirubin Urine Urobilinogen Ur Leukocyte Esterase Urine WBC (Auto) Urine RBC (Auto) Urine Bacteria Urine Mucus 05/04/17 05/04/17 05/04/17 06:00 06:00 07:28 WBC 4.8 D RBC 3.46 L Hgb 9.5 L D Hct 28.2 L D MCV 81.7 MCH 27.4 MCHC 33.5 RDW 15.1 Plt Count 252 MPV 9.4 Neutrophils % 68.0 Lymphocytes % 21.0 D Monocytes % 10.8 H D Eosinophils % 0.0 D Basophils % 0.2 Sodium 145 Potassium 4.3 Chloride 108 H Carbon Dioxide 25 Anion Gap 12 BUN 36 H Creatinine 3.8 H Creat Clearance w eGFR 11.24 POC Glucometer Random Glucose 103 Hemoglobin A1c % 6.2 H Lactic Acid Calcium 8.6 Phosphorus 5.1 H Magnesium 2.3 Total Bilirubin 0.5 D AST 16 ALT 21 Alkaline Phosphatase 62 Creatine Kinase 167 Creatine Kinase Index 2.0 CK-MB (CK-2) 3.495 Troponin I 0.05 B-Natriuretic Peptide Total Protein 6.5 Albumin 3.0 L Urine Color Urine Appearance Urine pH Ur Specific [place] Urine Protein Urine Glucose (UA) Urine Ketones Urine Blood Urine Nitrite Urine Bilirubin Urine Urobilinogen Ur Leukocyte Esterase Urine WBC (Auto) Urine RBC (Auto) Urine Bacteria Urine Mucus 05/04/17 11:58 WBC RBC Hgb Hct MCV MCH MCHC RDW Plt Count MPV Neutrophils % Lymphocytes % Monocytes % Eosinophils % Basophils % Sodium Potassium Chloride Carbon Dioxide Anion Gap BUN Creatinine Creat Clearance w eGFR POC Glucometer 111 Random Glucose Hemoglobin A1c % Lactic Acid Calcium Phosphorus Magnesium Total Bilirubin AST ALT Alkaline Phosphatase Creatine Kinase Creatine Kinase Index CK-MB (CK-2) Troponin I B-Natriuretic Peptide Total Protein Albumin Urine Color Urine Appearance Urine pH Ur Specific [place] Urine Protein Urine Glucose (UA) Urine Ketones Urine Blood Urine Nitrite Urine Bilirubin Urine Urobilinogen Ur Leukocyte Esterase Urine WBC (Auto) Urine RBC (Auto) Urine Bacteria Urine Mucus Microbiology 05/03/17 12:00 Blood - Peripheral Venous Blood Culture - Preliminary NO GROWTH OBTAINED AFTER 24 HOURS, INCUBATION TO CONTINUE FOR 4 DAYS. 05/03/17 12:00 Blood - Peripheral Venous Blood Culture - Preliminary NO GROWTH OBTAINED AFTER 24 HOURS, INCUBATION TO CONTINUE FOR 4 DAYS. 05/03/17 18:30 Nasopharyngeal Swab Influenza Types A,B Antigen (ALAN) - Preliminary 05/03/17 18:30 Nasopharyngeal Swab - Preliminary CT brain repeat unchanged acute/subacute SDH CXR - worsened RLL findings ASSESSMENT AND PLAN: 87 yof with HTN, NIDDM, CKD ?stage III, ?CHF, remote SDH, nephrolithiasis admitted with dyspnea, right chest/abdominal pain and LUCY -right chest/abdominal pain, suspected RLL CAP -Dyspnea, suspect mild asthma exacerbaton (wheezing noted by pulmonary), no concerns on my exam -Acute/subacute SDH (reports recent h/o falls, ? few months ago however patient poor historian) vs heparin mediated. -Sinus tachycardia, improved -LUCY suspect prerenal from decreased PO intake based on history and exam. -NIDDM -HTN -remote SDH Plan: Symptoms improved. pulmonary input appreciated. Solumedrol, ceftriaxone/azithromycin day 2, standing and prn nebs. Check RA saturations. heparin drip d/kathryn given Acute /subacute SDH, currently contraindication. Pulmonary input noted, also symptoms have improved, HR better, defer V/Q scan for now and monitor. Neuro checks, repeat CT head stable. Neurosurgery input appreciated. Renal function worsening. Needs strict I/Os, bell, renal ultrasound, follow up renal input. Avoid nephrotoxins, hold lasix, renal dosing of meds. ISs, diabetic diet. BP control given SDH. continue metoprolol, norvasc, hold ARB. taper morphine. Stomach thickening on CT A/p, outpatient GI unless new symptoms inhouse. DVTPPX with SCds PT eval, ambulatory oxygen needs Dispo pending above, anticipate in 2-3 days if continues to improve.
[2017-05-04] MEDS ORDERED: MORPHINE SULFATE 10 MG/1 ML *VIAL IVPUSH PRN (14:57)
[2017-05-04] MEDS ORDERED: PT OWN MED DRAWER 7, Y5N ONE (15:13)
[2017-05-04] MEDS: methylPREDNISolone NA SUCC 125 MG/2 ML VIAL IVPUSH SCH ×2 (15:25→17:19)
[2017-05-04] MEDS: CEFTRIAXONE 1 G/50 ML PREMIX 50 ML IVPB SCH (15:26)
[2017-05-04] MEDS: ALBUTEROL SO4 2.5/IPRATROPIUM 0.5 INH SOL 3 ML VIAL.NEB. NEB SCH ×2 (16:20→20:00)
[2017-05-04] MEDS: AZITHROMYCIN IVPB 500 MG in DEXTROSE 5%-WATER - 250 ML IVPB SCH (17:17)
--- NOTE | 2017-05-04 19:36 | CON.NEP ---
Consult Consult Specialty:: nephrology Referred by:: dr gtz Reason for Consultation:: azotemia - History of Present Illness Chief Complaint: right pleuritic pain History of Present Illness: admitted with sob and pleuritic chest pain x 3 days being worked up for pneumonia she has azotemia on admission labs she has a history of kidney disease from before one of the daughters reports that her creatinine has been higher than 2 in the past also there was a question of kidney stone disease managed at [facility] in january 2017 they had brought in some papers from the other other hosp which cannot be found now. reportedly her creat was 2.2 in dec she is s/p bell catheter insertion denies voiding problems - History Source History Provided By: Patient, Family Member - Past Medical History Cardio/Vascular: Yes: HTN Pulmonary: Yes: COPD Renal/: Yes: Renal Calculi (maybe- she had flank pain) ...: No Endocrine: Yes: Diabetes Mellitus - Alcohol/Substance Use Hx Alcohol Use: No - Smoking History Smoking history: Former smoker Have you smoked in the past 12 months: No Home Medications - Allergies Allergies/Adverse Reactions: Allergies Allergy/AdvReac Type Severity Reaction Status Date / Time No Known Allergies Allergy Verified 05/03/17 11:25 - Home Medications Home Medications: Ambulatory Orders Albuterol Sulfate Inhaler - [Ventolin Hfa Inhaler -] 1 - 2 inh PO Q4H 05/03/17 Amlodipine Besylate [Norvasc -] 10 mg PO DAILY 05/03/17 Cyclosporine [Restasis] 1 each OP DAILY 05/03/17 Glipizide [Glipizide ER] 10 mg PO DAILY 05/03/17 Metoprolol Succinate [Toprol Xl -] 50 mg PO DAILY 05/03/17 Oxybutynin Chloride 5 mg PO DAILY 05/03/17 Pantoprazole Sodium [Protonix] 40 mg PO DAILY 05/03/17 Potassium Chloride [Klor-Con M20] 20 meq PO DAILY 05/03/17 Pregabalin [Lyrica] 75 mg PO HS 05/03/17 Rosuvastatin [Crestor -] 20 mg PO DAILY 05/03/17 Salmeterol/Fluticasone [Advair 100Mcg/50Mcg -] 1 inh PO BID 05/03/17 Tramadol HCl/Acetaminophen [Tramadol-Acetaminophn 37.5-325] 1 each PO PRN PRN Valsartan [Diovan] 160 mg PO DAILY 05/03/17 Nephrology Consult - Height Height: 5 ft - Weight Weight: 160 lb - BMI Body Mass Index (BMI): 31.2 - Lab Results CBC,BMP: CBC, BMP 05/04/17 06:00 05/04/17 07:28 Anion Gap: Anion Gap Anion Gap 12 (8-16) 05/04/17 07:28 - Physical Examination Vital Signs: Vital Signs Temperature 98.7 F 05/04/17 17:00 Pulse Rate 103 H 05/04/17 17:00 Respiratory Rate 20 05/04/17 17:00 Blood Pressure 162/87 05/04/17 17:00 O2 Sat by Pulse Oximetry (%) 97 05/04/17 10:00 Musculoskeletal: Yes: Other (tender right rib cage, multiple ribs) Assessment/Plan sob/pleuritic chest pain being worked up for pneumonia tender right rib cage, no recent trauma, no bruise on exam r/o rib fx or other pathology kidney failure/proteinuria- probable acute componenet leonid prerenal 2/2 acute illness underlying CKD in association with HTN and DM she pointedly denies any retinopathy or any laser treatment r/o underlying glomerular disease given moderate degree of proteinuria on u/a hyperphosphatemia suggests long standing advanced stage CKD anemia- needs w/u dm type 2, good control a1c 6.2 LV dysfunction - Elevated BNP would benefit from echocardiogram Plan- renal sono rib xrays urine protein quantitation intact pth consider glomerular disease w/u if proteinuria is significant start renvela for high phosphorus vit d levels outpatient
[2017-05-04] MEDS: PREGABALIN 25 MG CAPSULE PO SCH (21:19)
[2017-05-04] MEDS: ROSUVASTATIN CA 20 MG TABLET (FP) PO SCH (21:19)
[2017-05-04 23:31] LABS: RATIO URIN PROTEIN/URIN CREAT 2.66 MG/DL
[2017-05-05] MEDS: methylPREDNISolone NA SUCC 125 MG/2 ML VIAL IVPUSH SCH ×3 (01:12→19:20)
[2017-05-05] MEDS: INSULIN SLIDING SCALE (NOVOLOG) 1 VIAL SQ SCH ×5 (06:22→21:45)
--- NOTE | 2017-05-05 06:52 | PN ---
Physical Exam: SUBJECTIVE: Patient seen and examined. No acute events overnight. Patient complains of RUQ tenderness which she says she's had since she was admitted. She denies SOB, dizziness, nausea, vomiting, lightheadedness, chest pain. OBJECTIVE: Vital Signs Period Temp Pulse Resp BP Sys/Betancourt Pulse Ox Last 24 Hr 98.1 F-99.0 F 86-103 20-20 139-162/73-92 97-97 GENERAL: The patient is awake, alert, and fully oriented, in no acute distress. EYES: extraocular movements intact ENT:oropharynx clear without exudates, moist mucous membranes. NECK: supple. LUNGS: bibasilar rales, audible wheezing and and course coughing. HEART: Regular rate and rhythm, S1, S2 without murmur, rub or gallop. ABDOMEN: RUQ tenderness, neg cuellar, ND, positive bowel sounds EXTREMITIES: 2+ pulses, warm, well-perfused, no edema. NEUROLOGICAL: Cranial nerves II through XII grossly intact. Normal speech, gait not observed PSYCH: Normal mood, normal affect. Laboratory Results - last 24 hr 05/04/17 05/04/17 05/04/17 06:00 06:00 07:28 WBC 4.8 D RBC 3.46 L Hgb 9.5 L D Hct 28.2 L D MCV 81.7 MCH 27.4 MCHC 33.5 RDW 15.1 Plt Count 252 MPV 9.4 Neutrophils % 68.0 Lymphocytes % 21.0 D Monocytes % 10.8 H D Eosinophils % 0.0 D Basophils % 0.2 Sodium 145 Potassium 4.3 Chloride 108 H Carbon Dioxide 25 Anion Gap 12 BUN 36 H Creatinine 3.8 H Creat Clearance w eGFR 11.24 POC Glucometer Random Glucose 103 Hemoglobin A1c % 6.2 H Calcium 8.6 Phosphorus 5.1 H Magnesium 2.3 Total Bilirubin 0.5 D AST 16 ALT 21 Alkaline Phosphatase 62 Creatine Kinase 167 Creatine Kinase Index 2.0 CK-MB (CK-2) 3.495 Troponin I 0.05 Total Protein 6.5 Albumin 3.0 L Urine Protein U Random Total Protein Ur Random Sodium Ur Random Potassium Ur Random Chloride Urine Creatinine Protein/Creatinin Ratio 05/04/17 05/04/17 05/04/17 11:58 21:25 23:00 WBC RBC Hgb Hct MCV MCH MCHC RDW Plt Count MPV Neutrophils % Lymphocytes % Monocytes % Eosinophils % Basophils % Sodium Potassium Chloride Carbon Dioxide Anion Gap BUN Creatinine Creat Clearance w eGFR POC Glucometer 111 241 Random Glucose Hemoglobin A1c % Calcium Phosphorus Magnesium Total Bilirubin AST ALT Alkaline Phosphatase Creatine Kinase Creatine Kinase Index CK-MB (CK-2) Troponin I Total Protein Albumin Urine Protein U Random Total Protein Ur Random Sodium 16 Ur Random Potassium 38.8 Ur Random Chloride 11 Urine Creatinine Protein/Creatinin Ratio 05/04/17 05/04/17 05/05/17 23:00 23:00 05:55 WBC RBC Hgb Hct MCV MCH MCHC RDW Plt Count MPV Neutrophils % Lymphocytes % Monocytes % Eosinophils % Basophils % Sodium Potassium Chloride Carbon Dioxide Anion Gap BUN Creatinine Creat Clearance w eGFR POC Glucometer 188 Random Glucose Hemoglobin A1c % Calcium Phosphorus Magnesium Total Bilirubin AST ALT Alkaline Phosphatase Creatine Kinase Creatine Kinase Index CK-MB (CK-2) Troponin I Total Protein Albumin Urine Protein Cancelled U Random Total Protein 375 H Ur Random Sodium Ur Random Potassium Ur Random Chloride Urine Creatinine Cancelled 141.0 Protein/Creatinin Ratio 2.66 Active Medications Generic Name Dose Route Start Last Admin Trade Name Freq PRN Reason Stop Dose Admin Acetaminophen 1,000 mg 05/03/17 18:47 Ofirmev Injection - IVPB Q6H PRN PAIN LEVEL 1-5 Al Hydroxide/Mg Hydroxide 30 ml 05/03/17 18:53 05/04/17 18:47 Mylanta Oral Suspension - PO 30 ml Q6H PRN Administration DYSPEPSIA Albuterol Sulfate 1 amp 05/04/17 13:54 Ventolin 0.083% Nebulizer Soln - NEB Q4H PRN SHORT OF BREATH/WHEEZING Albuterol/Ipratropium 1 amp 05/04/17 16:00 05/04/17 20:00 Duoneb - NEB 1 amp RQID [facility] Administration Amlodipine Besylate 10 mg 05/04/17 10:00 05/04/17 10:25 Norvasc - PO 10 mg DAILY [facility] Administration Budesonide/Formoterol Fumarate 2 puff 05/03/17 22:00 05/04/17 21:22 Symbicort 160/4.5mcg - IH 2 puff BID [facility] Administration Hydralazine HCl 10 mg 05/04/17 08:41 Apresoline Injection - IVPUSH Q6H PRN HYPERTENSION CEFTRIAXONE 1 G/50 ML PREMIX 50 mls @ 100 mls/hr 05/04/17 14:00 05/04/17 15: 26 Ceftriaxone 1 Gm-D5w Bag IVPB 100 mls/hr DAILY [facility] Administration Azithromycin 500 mg/ Dextrose 250 mls @ 250 mls/hr 05/04/17 14:00 05/04/17 17 :17 IVPB 05/08/17 10:59 250 mls/hr DAILY [facility] Administration Insulin Aspart 1 vial 05/03/17 22:00 05/05/17 06:22 Novolog Vial Sliding Scale - SQ Not Given ACHS [facility] Protocol Methylprednisolone Sodium Succinate 60 mg 05/04/17 14:00 05/05/17 01:12 Solu-Medrol - IVPUSH 60 mg Q8H-IV [facility] Administration Metoprolol Tartrate 50 mg 05/03/17 22:00 05/04/17 21:19 Lopressor - PO 50 mg BID [facility] Administration Morphine Sulfate 0.5 mg 05/04/17 14:57 Morphine Injection - IVPUSH Q4H PRN PAIN LEVEL 6-10 Pantoprazole Sodium 40 mg 05/03/17 22:00 05/04/17 21:22 Protonix Iv IVPUSH 40 mg BID [facility] Administration Pregabalin 75 mg 05/03/17 22:00 05/04/17 21:19 Lyrica - PO 75 mg HS [facility] Administration Rosuvastatin Calcium 20 mg 05/04/17 22:00 05/04/17 21:19 Crestor - PO 20 mg HS [facility] Administration Sevelamer Carbonate 800 mg 05/05/17 08:00 Renvela - PO TIDCM [facility] ASSESSMENT/PLAN: 87 yof with HTN, NIDDM, CKD stage III? ?CHF, remote SDH, nephrolithiasis admitted with dyspnea, right chest/abdominal pain and LUCY. #RLL CAP -right chest/abdominal pain -Chest Xray 3/4: The patient appears to have a progressive infiltrate / atelectasis at the right base. -Cont. IV abx: Azithromycin/Ceftriaxone Day 2 -no leukocytosis, afebrile #Acute Asthma exacerbation -improved -audible wheezing and coughing on PE -Solu-medrol 60mg IV q8h -Pulm on board -Duonebs standing, PRN -Currently 88% on RA -Doppler LE neg for DVT #Acute on chronic CKD Stage IV -likely pre-renal, decreased PO intake on history -worsening, current Cr 4.1, Cr clearance w GFR: 10.29 -Baseline creatinine 2.61 per PCP from medical records from [facility]. -Patient creatinine in January admission at [facility] 3.03 and improved to 2.8. -Nephro consulted: Renal workup in progress -Canca, panca, hep panel -Renal/Bladder U/S: Small and echogenic kidneys consistent with chronic medical renal disease. There is no evidence of hydronephrosis or acute pathology. -Strict I/O's -Patient pulling on bell, bell d/c'ed -Bladder scan q6h -renal dosing meds -avoid nephrotoxins -FU renal outpatient -Fu renal reccs #Sinus Tachycardia -improved -HR improved -CT chest ordered -doppler LE neg for DVT -Defer V/Q scan for now and monitor #Acute/Subacute Subdural hematoma -reports recent history of falls, very poor historian. vs heparin mediated -heparin d/c'ed given CT Head of acute/subacute subdural hematoma. Contraindicated -neuro checks -repeat CT head stable -Neurosurgery: No acute Neurosurgical intervention planned. -Heparin drip D/c'ed, contraindicated #DM -ISS -BGM -Diabetic diet #HTN -Cont. Metoprolol, Norvasc -Hold ARB #FEN -No IV fluids -replete as needed -diabetic diet #DVT Ppx -SCD's Records obtained from [facility]. In patient file. Dispo: possible discharge in 24 hours if patient stable. Visit type - Emergency Visit Emergency Visit: Yes ED Registration Date: 05/03/17 Care time: The patient presented to the Emergency Department on the above date and was hospitalized for further evaluation of their emergent condition. - New Patient This patient is new to me today: Yes Date on this admission: 05/05/17 - Critical Care Critical Care patient: No
[2017-05-05 07:11] LABS: BASO % 0.1 % (0-2.0); HEMATOCRIT 31.3 % (32.4-45.2); HEMOGLOBIN 10.4 GM/dL (10.7-15.3); LYMPH % 11.3 % (8-40); MCH 27.4 pg (25.7-33.7); MCHC 33.3 g/dl (32.0-36.0); MEAN CELL VOLUME 82.1 fl (80-96); MEAN PLT VOLUME 9.6 fl (7.5-11.1); MONO % 1.1 % (3.8-10.2); NEUT % 87.5 % (42.8-82.8); PLATELET COUNT 268 K/MM3 (134-434); RBC 3.81 M/mm3 (3.60-5.2); RDW 15.4 % (11.6-15.6); WHITE BLOOD COUNT 6.1 K/mm3 (4.0-10.0)
[2017-05-05] MEDS: ALBUTEROL SO4 2.5/IPRATROPIUM 0.5 INH SOL 3 ML VIAL.NEB. NEB SCH ×4 (07:35→20:30)
[2017-05-05 07:41] LABS: CHLORIDE 104 mmol/L (98-107); POTASSIUM 4.6 mmol/L (3.5-5.1); SODIUM 139 mmol/L (136-145)
[2017-05-05 07:48] LABS: ALBUMIN 3.5 g/dl (3.4-5.0); ALK PHOS 66 U/L (45-117); ANION GAP 8 (8-16); BILIRUBIN,TOTAL 0.5 mg/dL (0.2-1.0); BLOOD UREA NITROGEN 50 mg/dL (7-18); CALCIUM 8.3 mg/dL (8.5-10.1); CO2 27 mmol/L (21-32); CREATININE 4.1 mg/dL (0.55-1.02); GLUCOSE,RANDOM 169 mg/dL (74-106); MAGNESIUM 2.5 mg/dL (1.8-2.4); PHOSPHOROUS 4.8 mg/dL (2.5-4.9); SGOT/AST 22 U/L (15-37); SGPT/ALT 25 U/L (12-78); TOT PROT 7.1 g/dl (6.4-8.2)
--- NOTE | 2017-05-05 08:45 | PN ---
Teaching Attending Note Name of Resident: Lyudmila Rasmussen ATTENDING PHYSICIAN STATEMENT Time of evaluation: 10:40 AM I saw and evaluated the patient. I reviewed the resident's note and discussed the case with the resident. I agree with the resident's findings and plan as documented with exceptions mentioned below. SUBJECTIVE: Patient seen and examined. still with right lower chest/upper abdominal pain. dyspnea, no fevers/chills or new concerns. OBJECTIVE: Vital Signs Period Temp Pulse Resp BP Sys/Betancourt Pulse Ox Last 24 Hr 98.1 F-99.0 F 86-103 20-20 139-162/73-92 97-97 Intake & Output 05/02/17 05/03/17 05/04/17 05/05/17 23:59 23:59 23:59 23:59 Intake Total 650 Output Total 300 375 Balance 350 -375 Weight 160 lb 160 lb General: sitting in bed in no acute distress, Audible wheeze with coarse coughing Abdomen: soft, obese, RUQ abdominal pain, vague tenderness, unable to examine Orantes's sign, no voluntary or involuntary guarding or rigidity Chest: bibasilar rales, audible wheezing with coarse cough, positive air entry extremities: no edema Home Medication List Medication Instructions Recorded Confirmed Type Albuterol Sulfate Inhaler - 1 - 2 inh PO Q4H 05/03/17 05/03/17 History [Ventolin Hfa Inhaler -] Amlodipine Besylate [Norvasc -] 10 mg PO DAILY 05/03/17 05/03/17 History Cyclosporine [Restasis] 1 each OP DAILY 05/03/17 05/03/17 History Glipizide [Glipizide ER] 10 mg PO DAILY 05/03/17 05/03/17 History Metoprolol Succinate [Toprol Xl -] 50 mg PO DAILY 05/03/17 05/03/17 History Oxybutynin Chloride 5 mg PO DAILY 05/03/17 05/03/17 History Pantoprazole Sodium [Protonix] 40 mg PO DAILY 05/03/17 05/03/17 History Potassium Chloride [Klor-Con M20] 20 meq PO DAILY 05/03/17 05/03/17 History Pregabalin [Lyrica] 75 mg PO HS 05/03/17 05/03/17 History Rosuvastatin [Crestor -] 20 mg PO DAILY 05/03/17 05/03/17 History Salmeterol/Fluticasone [Advair 1 inh PO BID 05/03/17 05/03/17 History 100Mcg/50Mcg -] Tramadol HCl/Acetaminophen 1 each PO PRN PRN 05/03/17 05/03/17 History [Tramadol-Acetaminophn 37.5-325] Valsartan [Diovan] 160 mg PO DAILY 05/03/17 05/03/17 History Active Medications Generic Name Dose Route Start Last Admin Trade Name Freq PRN Reason Stop Dose Admin Acetaminophen 1,000 mg 05/03/17 18:47 Ofirmev Injection - IVPB Q6H PRN PAIN LEVEL 1-5 Al Hydroxide/Mg Hydroxide 30 ml 05/03/17 18:53 05/04/17 18:47 Mylanta Oral Suspension - PO 30 ml Q6H PRN Administration DYSPEPSIA Albuterol Sulfate 1 amp 05/04/17 13:54 Ventolin 0.083% Nebulizer Soln - NEB Q4H PRN SHORT OF BREATH/WHEEZING Albuterol/Ipratropium 1 amp 05/04/17 16:00 05/05/17 07:35 Duoneb - NEB 1 amp RQID [facility] Administration Amlodipine Besylate 10 mg 05/04/17 10:00 05/04/17 10:25 Norvasc - PO 10 mg DAILY [facility] Administration Budesonide/Formoterol Fumarate 2 puff 05/03/17 22:00 05/04/17 21:22 Symbicort 160/4.5mcg - IH 2 puff BID [facility] Administration Hydralazine HCl 10 mg 05/04/17 08:41 Apresoline Injection - IVPUSH Q6H PRN HYPERTENSION CEFTRIAXONE 1 G/50 ML PREMIX 50 mls @ 100 mls/hr 05/04/17 14:00 05/04/17 15: 26 Ceftriaxone 1 Gm-D5w Bag IVPB 100 mls/hr DAILY [facility] Administration Azithromycin 500 mg/ Dextrose 250 mls @ 250 mls/hr 05/04/17 14:00 05/04/17 17 :17 IVPB 05/08/17 10:59 250 mls/hr DAILY [facility] Administration Insulin Aspart 1 vial 05/03/17 22:00 05/05/17 06:22 Novolog Vial Sliding Scale - SQ Not Given ACHS [facility] Protocol Methylprednisolone Sodium Succinate 60 mg 05/04/17 14:00 05/05/17 01:12 Solu-Medrol - IVPUSH 60 mg Q8H-IV [facility] Administration Metoprolol Tartrate 50 mg 05/03/17 22:00 05/04/17 21:19 Lopressor - PO 50 mg BID [facility] Administration Morphine Sulfate 0.5 mg 05/04/17 14:57 Morphine Injection - IVPUSH Q4H PRN PAIN LEVEL 6-10 Pantoprazole Sodium 40 mg 05/03/17 22:00 05/04/17 21:22 Protonix Iv IVPUSH 40 mg BID [facility] Administration Pregabalin 75 mg 05/03/17 22:00 05/04/17 21:19 Lyrica - PO 75 mg HS [facility] Administration Rosuvastatin Calcium 20 mg 05/04/17 22:00 05/04/17 21:19 Crestor - PO 20 mg HS [facility] Administration Sevelamer Carbonate 800 mg 05/05/17 08:00 Renvela - PO TIDCM [facility] Laboratory Results - last 24 hr 05/04/17 05/04/17 05/04/17 06:00 07:28 11:58 WBC RBC Hgb Hct MCV MCH MCHC RDW Plt Count MPV Neutrophils % Lymphocytes % Monocytes % Eosinophils % Basophils % PTT (Actin FS) Sodium 145 Potassium 4.3 Chloride 108 H Carbon Dioxide 25 Anion Gap 12 BUN 36 H Creatinine 3.8 H Creat Clearance w eGFR 11.24 POC Glucometer 111 Random Glucose 103 Hemoglobin A1c % 6.2 H Calcium 8.6 Phosphorus 5.1 H Magnesium 2.3 Total Bilirubin 0.5 D AST 16 ALT 21 Alkaline Phosphatase 62 Creatine Kinase 167 Creatine Kinase Index 2.0 CK-MB (CK-2) 3.495 Troponin I 0.05 Total Protein 6.5 Albumin 3.0 L Urine Protein U Random Total Protein Ur Random Sodium Ur Random Potassium Ur Random Chloride Urine Creatinine Protein/Creatinin Ratio 05/04/17 05/04/17 05/04/17 21:25 23:00 23:00 WBC RBC Hgb Hct MCV MCH MCHC RDW Plt Count MPV Neutrophils % Lymphocytes % Monocytes % Eosinophils % Basophils % PTT (Actin FS) Sodium Potassium Chloride Carbon Dioxide Anion Gap BUN Creatinine Creat Clearance w eGFR POC Glucometer 241 Random Glucose Hemoglobin A1c % Calcium Phosphorus Magnesium Total Bilirubin AST ALT Alkaline Phosphatase Creatine Kinase Creatine Kinase Index CK-MB (CK-2) Troponin I Total Protein Albumin Urine Protein Cancelled U Random Total Protein Ur Random Sodium 16 Ur Random Potassium 38.8 Ur Random Chloride 11 Urine Creatinine Cancelled Protein/Creatinin Ratio 05/04/17 05/05/17 05/05/17 23:00 05:55 06:45 WBC RBC Hgb Hct MCV MCH MCHC RDW Plt Count MPV Neutrophils % Lymphocytes % Monocytes % Eosinophils % Basophils % PTT (Actin FS) 27.8 Sodium Potassium Chloride Carbon Dioxide Anion Gap BUN Creatinine Creat Clearance w eGFR POC Glucometer 188 Random Glucose Hemoglobin A1c % Calcium Phosphorus Magnesium Total Bilirubin AST ALT Alkaline Phosphatase Creatine Kinase Creatine Kinase Index CK-MB (CK-2) Troponin I Total Protein Albumin Urine Protein U Random Total Protein 375 H Ur Random Sodium Ur Random Potassium Ur Random Chloride Urine Creatinine 141.0 Protein/Creatinin Ratio 2.66 05/05/17 05/05/17 06:45 06:45 WBC 6.1 RBC 3.81 Hgb 10.4 L Hct 31.3 L MCV 82.1 MCH 27.4 MCHC 33.3 RDW 15.4 Plt Count 268 MPV 9.6 Neutrophils % 87.5 H D Lymphocytes % 11.3 D Monocytes % 1.1 L D Eosinophils % 0.0 Basophils % 0.1 PTT (Actin FS) Sodium 139 Potassium 4.6 Chloride 104 Carbon Dioxide 27 Anion Gap 8 BUN 50 H Creatinine 4.1 H Creat Clearance w eGFR 10.29 POC Glucometer Random Glucose 169 H Hemoglobin A1c % Calcium 8.3 L Phosphorus 4.8 Magnesium 2.5 H Total Bilirubin 0.5 AST 22 ALT 25 Alkaline Phosphatase 66 Creatine Kinase Creatine Kinase Index CK-MB (CK-2) Troponin I Total Protein 7.1 Albumin 3.5 Urine Protein U Random Total Protein Ur Random Sodium Ur Random Potassium Ur Random Chloride Urine Creatinine Protein/Creatinin Ratio Microbiology 05/03/17 12:00 Blood - Peripheral Venous Blood Culture - Preliminary NO GROWTH OBTAINED AFTER 24 HOURS, INCUBATION TO CONTINUE FOR 4 DAYS. 05/03/17 12:00 Blood - Peripheral Venous Blood Culture - Preliminary NO GROWTH OBTAINED AFTER 24 HOURS, INCUBATION TO CONTINUE FOR 4 DAYS. 05/03/17 18:30 Nasopharyngeal Swab Influenza Types A,B Antigen (ALAN) - Preliminary 05/03/17 18:30 Nasopharyngeal Swab - Preliminary ASSESSMENT AND PLAN: 87 yof with HTN, NIDDM, CKD ?stage III, ?CHF, remote SDH, nephrolithiasis admitted with dyspnea, right chest/abdominal pain and LUCY -right chest/abdominal pain, suspected RLL CAP (Liver US limited but acute concerns) -Dyspnea, wheezing with coarse cough on exam, making acute asthma exacerbation likely etiology rather than PE. -Acute/subacute SDH (reports recent h/o falls, ? few months ago however patient poor historian) vs heparin mediated. -Sinus tachycardia, improved -LUCY suspect prerenal from decreased PO intake based on history and exam. -NIDDM -HTN -remote SDH Plan: Symptoms improved. pulmonary input appreciated. Solumedrol, ceftriaxone/azithromycin day 2, standing and prn nebs. 88% on RA currently with coarse coughing and audible whezing. heparin drip d/kathryn given Acute /subacute SDH, currently contraindicated. Pulmonary input noted, also symptoms have improved, HR better, CT chest. Defer V /Q scan for now and monitor. doppler LE neg for DVT Neuro checks, repeat CT head stable. Neurosurgery input appreciated. Renal function worsening. Strict I/Os, patient pulling at bell, d/c and bladder scan q6h, follow up renal recs. Avoid nephrotoxins, hold lasix, renal dosing of meds. renal US noted. ISs, diabetic diet. BP control given SDH. continue metoprolol, norvasc, hold ARB. low dose morphine prn. transition to oral tramadol/acetaminophen in 24-48 hours as improves. Stomach thickening on CT A/p, outpatient GI unless new symptoms inhouse. DVTPPX with SCds PT eval, ambulatory oxygen needs Dispo pending above, anticipate in 2-3 days if continues to improve.
[2017-05-05] MEDS: CEFTRIAXONE 1 G/50 ML PREMIX 50 ML IVPB SCH (10:26)
[2017-05-05] MEDS: METOPROLOL TARTRATE 50 MG TABLET (FP) PO SCH ×2 (10:26→21:40)
[2017-05-05] MEDS: PANTOPRAZOLE SODIUM 40 MG VIAL IVPUSH SCH ×2 (10:26→21:41)
[2017-05-05] MEDS: SEVELAMER CARBONATE 800 MG TAB (FP) PO SCH ×3 (10:26→19:19)
[2017-05-05] MEDS: BUDESONIDE/FORMETEROL FUMARATE 160/4.5 mcg INHALER IH SCH ×2 (10:26→21:47)
[2017-05-05] MEDS: amLODIPine BESYLATE 10 MG TABLET (FP) PO SCH (10:26)
--- NOTE | 2017-05-05 12:19 | PN ---
Progress Note, Physician History of Present Illness: PULMONARY ALERT,STILL C/O SOB,COUGH - Current Medication List Current Medications: Active Medications Acetaminophen (Ofirmev Injection -) 1,000 mg IVPB Q6H PRN PRN Reason: PAIN LEVEL 1-5 Al Hydroxide/Mg Hydroxide (Mylanta Oral Suspension -) 30 ml PO Q6H PRN PRN Reason: DYSPEPSIA Last Admin: 05/04/17 18:47 Dose: 30 ml Albuterol Sulfate (Ventolin 0.083% Nebulizer Soln -) 1 amp NEB Q4H PRN PRN Reason: SHORT OF BREATH/WHEEZING Albuterol/Ipratropium (Duoneb -) 1 amp NEB RQID [facility] Last Admin: 05/05/17 11:35 Dose: 1 amp Amlodipine Besylate (Norvasc -) 10 mg PO DAILY [facility] Last Admin: 05/05/17 10:26 Dose: 10 mg Budesonide/Formoterol Fumarate (Symbicort 160/4.5mcg -) 2 puff IH BID [facility] Last Admin: 05/05/17 10:26 Dose: 2 puff Hydralazine HCl (Apresoline Injection -) 10 mg IVPUSH Q6H PRN PRN Reason: HYPERTENSION CEFTRIAXONE 1 G/50 ML PREMIX (Ceftriaxone 1 Gm-D5w Bag) 50 mls @ 100 mls/hr IVPB DAILY [facility] Last Admin: 05/05/17 10:26 Dose: 100 mls/hr Azithromycin 500 mg/ Dextrose 250 mls @ 250 mls/hr IVPB DAILY [facility] Stop: 05/08/17 10:59 Last Admin: 05/04/17 17:17 Dose: 250 mls/hr Insulin Aspart (Novolog Vial Sliding Scale -) 1 vial SQ ACHS [facility] PRN Reason: Protocol Last Admin: 05/05/17 06:22 Dose: Not Given Methylprednisolone Sodium Succinate (Solu-Medrol -) 60 mg IVPUSH Q8H-IV [facility] Last Admin: 05/05/17 10:26 Dose: 60 mg Metoprolol Tartrate (Lopressor -) 50 mg PO BID [facility] Last Admin: 05/05/17 10:26 Dose: 50 mg Pantoprazole Sodium (Protonix Iv) 40 mg IVPUSH BID [facility] Last Admin: 05/05/17 10:26 Dose: 40 mg Pregabalin (Lyrica -) 75 mg PO HS [facility] Last Admin: 05/04/17 21:19 Dose: 75 mg Rosuvastatin Calcium (Crestor -) 20 mg PO [facility] Last Admin: 05/04/17 21:19 Dose: 20 mg Sevelamer Carbonate (Renvela -) 800 mg PO TIDCM [facility] Last Admin: 05/05/17 10:26 Dose: 800 mg - Objective Vital Signs: Vital Signs Temperature 98.7 F 05/05/17 06:00 Pulse Rate 97 H 05/05/17 06:00 Respiratory Rate 20 05/05/17 06:00 Blood Pressure 156/92 05/05/17 06:00 O2 Sat by Pulse Oximetry (%) 97 05/04/17 20:42 Constitutional: Yes: Well Nourished, Calm Eyes: Yes: WNL HENT: Yes: WNL Neck: Yes: WNL Cardiovascular: Yes: Regular Rate and Rhythm, S1, S2 Respiratory: Yes: Wheezes (SCATTERED KAITLIN WHEEZES) Gastrointestinal: Yes: Normal Bowel Sounds, Soft Extremities: Yes: WNL Edema: No Labs: CBC, BMP 05/05/17 06:45 05/05/17 06:45 INR, PTT INR 0.91 (0.82-1.09) 05/03/17 12:00 Problem List - Problems (1) Chronic kidney disease Code(s): N18.9 - CHRONIC KIDNEY DISEASE, UNSPECIFIED (2) Diabetes Code(s): E11.9 - TYPE 2 DIABETES MELLITUS WITHOUT COMPLICATIONS (3) Dyspnea Code(s): R06.00 - DYSPNEA, UNSPECIFIED Assessment/Plan Problem List - Problems (1) COPD exacerbation Code(s): J44.1 - CHRONIC OBSTRUCTIVE PULMONARY DISEASE W (ACUTE) EXACERBATION (2) Pneumonia Code(s): J18.9 - PNEUMONIA, UNSPECIFIED ORGANISM (3) Hypertension Code(s): I10 - ESSENTIAL (PRIMARY) HYPERTENSION (4) Diabetes Code(s): E11.9 - TYPE 2 DIABETES MELLITUS WITHOUT COMPLICATIONS (5) Hypercholesterolemia Code(s): E78.00 - PURE HYPERCHOLESTEROLEMIA, UNSPECIFIED Assessment/Plan Acute COPD Exacerbation r/o Pneumonia/Aspiration HTN DM Hypercholesterolemia - IV medrol - inhaled bronchodilators standing and PRN - will start empiric antibiotics even though pt afebrile and with normal WBC as pt with increasing RLL infiltrate and pleuritic pain - O2 to keep Spo2 >90% - Chest ct - DVT prophylaxis DR SANABRIA
[2017-05-05] MEDS: AZITHROMYCIN IVPB 500 MG in DEXTROSE 5%-WATER - 250 ML IVPB SCH (14:33)
--- NOTE | 2017-05-05 16:03 | PN ---
Progress Note, Physician History of Present Illness: Pt seen and examined at bedside. She is awake and alert. She feels that her breathing is improved with oxygen. Pt and family are not aware of any kidney disease. - Current Medication List Current Medications: Active Medications Acetaminophen (Ofirmev Injection -) 1,000 mg IVPB Q6H PRN PRN Reason: PAIN LEVEL 1-5 Al Hydroxide/Mg Hydroxide (Mylanta Oral Suspension -) 30 ml PO Q6H PRN PRN Reason: DYSPEPSIA Last Admin: 05/04/17 18:47 Dose: 30 ml Albuterol Sulfate (Ventolin 0.083% Nebulizer Soln -) 1 amp NEB Q4H PRN PRN Reason: SHORT OF BREATH/WHEEZING Albuterol/Ipratropium (Duoneb -) 1 amp NEB RQID [facility] Last Admin: 05/05/17 15:50 Dose: 1 amp Amlodipine Besylate (Norvasc -) 10 mg PO DAILY [facility] Last Admin: 05/05/17 10:26 Dose: 10 mg Budesonide/Formoterol Fumarate (Symbicort 160/4.5mcg -) 2 puff IH BID [facility] Last Admin: 05/05/17 10:26 Dose: 2 puff Hydralazine HCl (Apresoline Injection -) 10 mg IVPUSH Q6H PRN PRN Reason: HYPERTENSION CEFTRIAXONE 1 G/50 ML PREMIX (Ceftriaxone 1 Gm-D5w Bag) 50 mls @ 100 mls/hr IVPB DAILY [facility] Last Admin: 05/05/17 10:26 Dose: 100 mls/hr Azithromycin 500 mg/ Dextrose 250 mls @ 250 mls/hr IVPB DAILY [facility] Stop: 05/08/17 10:59 Last Admin: 05/05/17 14:33 Dose: 250 mls/hr Insulin Aspart (Novolog Vial Sliding Scale -) 1 vial SQ ACHS [facility] PRN Reason: Protocol Last Admin: 05/05/17 12:00 Dose: Not Given Methylprednisolone Sodium Succinate (Solu-Medrol -) 60 mg IVPUSH Q8H-IV [facility] Last Admin: 05/05/17 10:26 Dose: 60 mg Metoprolol Tartrate (Lopressor -) 50 mg PO BID [facility] Last Admin: 05/05/17 10:26 Dose: 50 mg Pantoprazole Sodium (Protonix Iv) 40 mg IVPUSH BID [facility] Last Admin: 05/05/17 10:26 Dose: 40 mg Pregabalin (Lyrica -) 75 mg PO [facility] Last Admin: 05/04/17 21:19 Dose: 75 mg Rosuvastatin Calcium (Crestor -) 20 mg PO [facility] Last Admin: 05/04/17 21:19 Dose: 20 mg Sevelamer Carbonate (Renvela -) 800 mg PO TIDCM [facility] Last Admin: 05/05/17 14:33 Dose: 800 mg - Objective Vital Signs: Vital Signs Temperature 98.2 F 05/05/17 10:00 Pulse Rate 93 H 05/05/17 10:00 Respiratory Rate 20 05/05/17 10:00 Blood Pressure 159/71 05/05/17 10:00 O2 Sat by Pulse Oximetry (%) 96 05/05/17 10:00 Constitutional: Yes: Calm Eyes: Yes: Conjunctiva Clear HENT: Yes: Atraumatic Cardiovascular: Yes: S1, S2 Respiratory: Yes: CTA Bilaterally, On Nasal O2 Gastrointestinal: Yes: Soft Genitourinary: Yes: WNL Musculoskeletal: Yes: WNL Edema: Yes Neurological: Yes: Oriented Psychiatric: Yes: Oriented Labs: CBC, BMP 05/05/17 06:45 05/05/17 06:45 INR, PTT INR 0.91 (0.82-1.09) 05/03/17 12:00 - ....Imaging Chest X-ray: Report Reviewed Ultrasound: Report Reviewed Problem List - Problems (1) COPD exacerbation Code(s): J44.1 - CHRONIC OBSTRUCTIVE PULMONARY DISEASE W (ACUTE) EXACERBATION (2) Chronic kidney disease Code(s): N18.9 - CHRONIC KIDNEY DISEASE, UNSPECIFIED (3) Diabetes Code(s): E11.9 - TYPE 2 DIABETES MELLITUS WITHOUT COMPLICATIONS (4) Hypertension Code(s): I10 - ESSENTIAL (PRIMARY) HYPERTENSION Assessment/Plan Current Medications Generic Name Dose Route Start Last Admin Trade Name Freq PRN Reason Stop Dose Admin Acetaminophen 1,000 mg 05/03/17 18:47 Ofirmev Injection - IVPB Q6H PRN PAIN LEVEL 1-5 Al Hydroxide/Mg Hydroxide 30 ml 05/03/17 18:53 05/04/17 18:47 Mylanta Oral Suspension - PO 30 ml Q6H PRN Administration DYSPEPSIA Albuterol Sulfate 1 amp 05/04/17 13:54 Ventolin 0.083% Nebulizer Soln - NEB Q4H PRN SHORT OF BREATH/WHEEZING Albuterol/Ipratropium 1 amp 05/04/17 16:00 05/05/17 15:50 Duoneb - NEB 1 amp RQID [facility] Administration Amlodipine Besylate 10 mg 05/04/17 10:00 05/05/17 10:26 Norvasc - PO 10 mg DAILY [facility] Administration Budesonide/Formoterol Fumarate 2 puff 05/03/17 22:00 05/05/17 10:26 Symbicort 160/4.5mcg - IH 2 puff BID [facility] Administration Hydralazine HCl 10 mg 05/04/17 08:41 Apresoline Injection - IVPUSH Q6H PRN HYPERTENSION CEFTRIAXONE 1 G/50 ML PREMIX 50 mls @ 100 mls/hr 05/04/17 14:00 05/05/17 10: 26 Ceftriaxone 1 Gm-D5w Bag IVPB 100 mls/hr DAILY [facility] Administration Azithromycin 500 mg/ Dextrose 250 mls @ 250 mls/hr 05/04/17 14:00 05/05/17 14 :33 IVPB 05/08/17 10:59 250 mls/hr DAILY [facility] Administration Insulin Aspart 1 vial 05/03/17 22:00 05/05/17 12:00 Novolog Vial Sliding Scale - SQ Not Given ACHS [facility] Protocol Methylprednisolone Sodium Succinate 60 mg 05/04/17 14:00 05/05/17 10:26 Solu-Medrol - IVPUSH 60 mg Q8H-IV [facility] Administration Metoprolol Tartrate 50 mg 05/03/17 22:00 05/05/17 10:26 Lopressor - PO 50 mg BID [facility] Administration Pantoprazole Sodium 40 mg 05/03/17 22:00 05/05/17 10:26 Protonix Iv IVPUSH 40 mg BID [facility] Administration Pregabalin 75 mg 05/03/17 22:00 05/04/17 21:19 Lyrica - PO 75 mg HS [facility] Administration Rosuvastatin Calcium 20 mg 05/04/17 22:00 05/04/17 21:19 Crestor - PO 20 mg HS [facility] Administration Sevelamer Carbonate 800 mg 05/05/17 08:00 05/05/17 14:33 Renvela - PO 800 mg TIDCM [facility] Administration Laboratory Tests 05/03/17 05/04/17 05/04/17 18:00 07:28 23:00 Creatinine 3.8 H Urine Protein 3+ H Urine Blood Negative Protein/Creatinin Ratio 2.66 05/05/17 06:45 Creatinine 4.1 H Urine Protein Urine Blood Protein/Creatinin Ratio Impression 1. CKD 2. HTN 3. HLD 4. COPD exacerbation 5. DM Plan - renal workup in progress - reviewed renal ultrasound and pt does have echogenic kidneys - repeat labs in am - there is negative blood in the urine however she does have about 2.6 grams of protein, which can be explained by DM - will wait for outpt labs to be retrieved Dr Reis
--- NOTE | 2017-05-05 16:10 | PN ---
Progress Note (short form) - Note Progress Note: Patient is Neurologically stable. Awake and alert. No acute Neurosurgical intervention planned.
[2017-05-05] MEDS ORDERED: INSULIN (NOVOLOG) ASPART 100 UNITS/ML 10ML VIAL ONE (18:18)
[2017-05-05] MEDS: ROSUVASTATIN CA 20 MG TABLET (FP) PO SCH (21:40)
[2017-05-05] MEDS: PREGABALIN 25 MG CAPSULE PO SCH (21:41)
[2017-05-06] MEDS: methylPREDNISolone NA SUCC 125 MG/2 ML VIAL IVPUSH SCH ×2 (02:20→09:47)
[2017-05-06] MEDS: INSULIN SLIDING SCALE (NOVOLOG) 1 VIAL SQ SCH ×4 (06:38→22:31)
--- NOTE | 2017-05-06 06:38 | PN ---
Physical Exam: SUBJECTIVE: Patient seen and examined. No acute events overnight. Patient offers no new complaints. Says she still experiences RUQ tenderness. OBJECTIVE: Vital Signs Period Temp Pulse Resp BP Sys/Betancourt Pulse Ox Last 24 Hr 98.2 F-98.8 F 88-103 18-20 137-159/71-90 95-96 GENERAL: The patient is awake, alert, and fully oriented, in no acute distress. EYES: extraocular movements intact ENT:oropharynx clear without exudates, moist mucous membranes. NECK: supple. LUNGS: bibasilar rales, expiratory wheezing and and course coughing. HEART: Regular rate and rhythm, S1, S2 without murmur, rub or gallop. ABDOMEN: RUQ tenderness, neg cuellar, ND, positive bowel sounds EXTREMITIES: 2+ pulses, warm, well-perfused, no edema. NEUROLOGICAL: Cranial nerves II through XII grossly intact. Normal speech, gait not observed PSYCH: Normal mood, normal affect. Laboratory Results - last 24 hr 05/05/17 05/05/17 05/05/17 05:55 06:45 06:45 WBC 6.1 RBC 3.81 Hgb 10.4 L Hct 31.3 L MCV 82.1 MCH 27.4 MCHC 33.3 RDW 15.4 Plt Count 268 MPV 9.6 Neutrophils % 87.5 H D Lymphocytes % 11.3 D Monocytes % 1.1 L D Eosinophils % 0.0 Basophils % 0.1 PTT (Actin FS) 27.8 Sodium Potassium Chloride Carbon Dioxide Anion Gap BUN Creatinine Creat Clearance w eGFR POC Glucometer 188 Random Glucose Calcium Phosphorus Magnesium Total Bilirubin AST ALT Alkaline Phosphatase Total Protein Albumin 05/05/17 05/05/17 05/05/17 06:45 17:17 21:39 WBC RBC Hgb Hct MCV MCH MCHC RDW Plt Count MPV Neutrophils % Lymphocytes % Monocytes % Eosinophils % Basophils % PTT (Actin FS) Sodium 139 Potassium 4.6 Chloride 104 Carbon Dioxide 27 Anion Gap 8 BUN 50 H Creatinine 4.1 H Creat Clearance w eGFR 10.29 POC Glucometer 229 252 Random Glucose 169 H Calcium 8.3 L Phosphorus 4.8 Magnesium 2.5 H Total Bilirubin 0.5 AST 22 ALT 25 Alkaline Phosphatase 66 Total Protein 7.1 Albumin 3.5 Active Medications Generic Name Dose Route Start Last Admin Trade Name Freq PRN Reason Stop Dose Admin Acetaminophen 1,000 mg 05/03/17 18:47 Ofirmev Injection - IVPB Q6H PRN PAIN LEVEL 1-5 Al Hydroxide/Mg Hydroxide 30 ml 05/03/17 18:53 05/04/17 18:47 Mylanta Oral Suspension - PO 30 ml Q6H PRN Administration DYSPEPSIA Albuterol Sulfate 1 amp 05/04/17 13:54 Ventolin 0.083% Nebulizer Soln - NEB Q4H PRN SHORT OF BREATH/WHEEZING Albuterol/Ipratropium 1 amp 05/04/17 16:00 05/05/17 20:30 Duoneb - NEB 1 amp RQID [facility] Administration Amlodipine Besylate 10 mg 05/04/17 10:00 05/05/17 10:26 Norvasc - PO 10 mg DAILY [facility] Administration Budesonide/Formoterol Fumarate 2 puff 05/03/17 22:00 05/05/17 21:47 Symbicort 160/4.5mcg - IH 2 puff BID [facility] Administration Hydralazine HCl 10 mg 05/04/17 08:41 Apresoline Injection - IVPUSH Q6H PRN HYPERTENSION CEFTRIAXONE 1 G/50 ML PREMIX 50 mls @ 100 mls/hr 05/04/17 14:00 05/05/17 10: 26 Ceftriaxone 1 Gm-D5w Bag IVPB 100 mls/hr DAILY [facility] Administration Azithromycin 500 mg/ Dextrose 250 mls @ 250 mls/hr 05/04/17 14:00 05/05/17 14 :33 IVPB 05/08/17 10:59 250 mls/hr DAILY [facility] Administration Insulin Aspart 1 vial 05/03/17 22:00 05/05/17 21:45 Novolog Vial Sliding Scale - SQ 4 units ACHS [facility] Administration Protocol Methylprednisolone Sodium Succinate 60 mg 05/04/17 14:00 05/06/17 02:20 Solu-Medrol - IVPUSH 60 mg Q8H-IV [facility] Administration Metoprolol Tartrate 50 mg 05/03/17 22:00 05/05/17 21:40 Lopressor - PO 50 mg BID [facility] Administration Pantoprazole Sodium 40 mg 05/03/17 22:00 05/05/17 21:41 Protonix Iv IVPUSH 40 mg BID [facility] Administration Pregabalin 75 mg 05/03/17 22:00 05/05/17 21:41 Lyrica - PO 75 mg HS [facility] Administration Rosuvastatin Calcium 20 mg 05/04/17 22:00 05/05/17 21:40 Crestor - PO 20 mg HS [facility] Administration Sevelamer Carbonate 800 mg 05/05/17 08:00 05/05/17 19:19 Renvela - PO 800 mg TIDCM [facility] Administration ASSESSMENT/PLAN: 87 yo f with HTN, NIDDM, CKD, CHF, remote SDH, nephrolithiasis admitted with dyspnea, right chest/abdominal pain and LUCY. #Acute COPD exacerbation -improved -wheezing and coughing on PE -Taper Solu-medrol now 40mg IV q6h -Pulm on board -Duonebs standing, PRN -Chest Xray 3: The patient appears to have a progressive infiltrate / atelectasis at the right base. However not shown on Chest CT. -Cont. IV abx: Azithromycin/Ceftriaxone Day 3 -Doppler LE neg for DVT #Epigastric Pain -possible duodenal ulcer -labs WNL -never had EGD -GI consulted: Dr. Noland -CT abdomen showing partially distended stomach. #Acute on chronic CKD Stage IV -likely pre-renal, decreased PO intake on history -baseline 2.6 -FENA <1%, creatinine 4.1 (No change since yesterday) -Nephro consulted: Renal workup in progress -Canca, panca, hep panel -Renal/Bladder U/S: Small and echogenic kidneys consistent with chronic medical renal disease. There is no evidence of hydronephrosis or acute pathology. -Strict I/O's -Bladder scan q6h -renal dosing meds -avoid nephrotoxins -FU renal outpatient #Sinus Tachycardia -improved -HR improved -CT chest ordered -doppler LE neg for DVT -Defer V/Q scan for now and monitor #Acute/Subacute Subdural hematoma -reports recent history of falls, very poor historian. vs heparin mediated -heparin d/c'ed given CT Head of acute/subacute subdural hematoma. Contraindicated -neuro checks -repeat CT head stable -Neurosurgery: No acute Neurosurgical intervention planned. -Heparin drip D/c'ed, contraindicated #Normocytic Anemia -slowly trending down -iron studies -follow H&H #DM -ISS -BGM -Diabetic diet #HTN -Cont. Metoprolol, Norvasc -Hold ARB #FEN -No IV fluids -replete as needed -diabetic diet #DVT Ppx -SCD's Plan to DC in 24 hours if patient remains stable. Visit type - Emergency Visit Emergency Visit: Yes ED Registration Date: 05/03/17 Care time: The patient presented to the Emergency Department on the above date and was hospitalized for further evaluation of their emergent condition. - New Patient This patient is new to me today: No - Critical Care Critical Care patient: No
[2017-05-06 07:14] LABS: HEMATOCRIT 29.8 % (32.4-45.2); HEMOGLOBIN 9.9 GM/dL (10.7-15.3); MCH 27.2 pg (25.7-33.7); MCHC 33.3 g/dl (32.0-36.0); MEAN CELL VOLUME 81.9 fl (80-96); MEAN PLT VOLUME 9.6 fl (7.5-11.1); PLATELET COUNT 255 K/MM3 (134-434); RBC 3.65 M/mm3 (3.60-5.2); RDW 15.3 % (11.6-15.6); WHITE BLOOD COUNT 8.7 K/mm3 (4.0-10.0)
[2017-05-06 07:36] LABS: ALBUMIN 3.2 g/dl (3.4-5.0); ANION GAP 11 (8-16); BLOOD UREA NITROGEN 59 mg/dL (7-18); CALCIUM 8.9 mg/dL (8.5-10.1); CHLORIDE 106 mmol/L (98-107); CO2 25 mmol/L (21-32); CREATININE 4.1 mg/dL (0.55-1.02); GLUCOSE,RANDOM 147 mg/dL (74-106); POTASSIUM 4.9 mmol/L (3.5-5.1); SGOT/AST 16 U/L (15-37); SGPT/ALT 24 U/L (12-78); SODIUM 142 mmol/L (136-145)
[2017-05-06 07:38] LABS: ALK PHOS 57 U/L (45-117); BILIRUBIN,TOTAL 0.5 mg/dL (0.2-1.0); TOT PROT 6.7 g/dl (6.4-8.2)
[2017-05-06] MEDS: ALBUTEROL SO4 2.5/IPRATROPIUM 0.5 INH SOL 3 ML VIAL.NEB. NEB SCH ×4 (07:40→20:46)
[2017-05-06] MEDS: SEVELAMER CARBONATE 800 MG TAB (FP) PO SCH ×3 (07:48→17:38)
[2017-05-06] MEDS: CEFTRIAXONE 1 G/50 ML PREMIX 50 ML IVPB SCH (09:47)
[2017-05-06] MEDS: METOPROLOL TARTRATE 50 MG TABLET (FP) PO SCH ×2 (09:48→22:15)
[2017-05-06] MEDS: amLODIPine BESYLATE 10 MG TABLET (FP) PO SCH (09:48)
[2017-05-06] MEDS: AZITHROMYCIN IVPB 500 MG in DEXTROSE 5%-WATER - 250 ML IVPB SCH (09:51)
[2017-05-06] MEDS ORDERED: PT OWN MED DRAWER 7, Y5N ONE (09:51)
[2017-05-06] MEDS: BUDESONIDE/FORMETEROL FUMARATE 160/4.5 mcg INHALER IH SCH ×2 (09:52→22:16)
[2017-05-06] MEDS: PANTOPRAZOLE SODIUM 40 MG VIAL IVPUSH SCH ×2 (09:52→22:16)
--- NOTE | 2017-05-06 11:36 | PN ---
Progress Note, Physician History of Present Illness: PULMONARY ALERT,STILL C/O COUGH,STILL CONGESTED - Current Medication List Current Medications: Active Medications Acetaminophen (Ofirmev Injection -) 1,000 mg IVPB Q6H PRN PRN Reason: PAIN LEVEL 1-5 Al Hydroxide/Mg Hydroxide (Mylanta Oral Suspension -) 30 ml PO Q6H PRN PRN Reason: DYSPEPSIA Last Admin: 05/04/17 18:47 Dose: 30 ml Albuterol Sulfate (Ventolin 0.083% Nebulizer Soln -) 1 amp NEB Q4H PRN PRN Reason: SHORT OF BREATH/WHEEZING Albuterol/Ipratropium (Duoneb -) 1 amp NEB RQID [facility] Last Admin: 05/06/17 11:31 Dose: 1 amp Amlodipine Besylate (Norvasc -) 10 mg PO DAILY [facility] Last Admin: 05/06/17 09:48 Dose: 10 mg Budesonide/Formoterol Fumarate (Symbicort 160/4.5mcg -) 2 puff IH BID [facility] Last Admin: 05/06/17 09:52 Dose: 2 puff Hydralazine HCl (Apresoline Injection -) 10 mg IVPUSH Q6H PRN PRN Reason: HYPERTENSION CEFTRIAXONE 1 G/50 ML PREMIX (Ceftriaxone 1 Gm-D5w Bag) 50 mls @ 100 mls/hr IVPB DAILY [facility] Last Admin: 05/06/17 09:47 Dose: 100 mls/hr Azithromycin 500 mg/ Dextrose 250 mls @ 250 mls/hr IVPB DAILY [facility] Stop: 05/08/17 10:59 Last Admin: 05/06/17 09:51 Dose: 250 mls/hr Insulin Aspart (Novolog Vial Sliding Scale -) 1 vial SQ ACHS [facility] PRN Reason: Protocol Last Admin: 05/06/17 06:38 Dose: 2 units Methylprednisolone Sodium Succinate (Solu-Medrol -) 60 mg IVPUSH Q8H-IV [facility] Last Admin: 05/06/17 09:47 Dose: 60 mg Metoprolol Tartrate (Lopressor -) 50 mg PO BID [facility] Last Admin: 05/06/17 09:48 Dose: 50 mg Pantoprazole Sodium (Protonix Iv) 40 mg IVPUSH BID [facility] Last Admin: 05/06/17 09:52 Dose: 40 mg Pregabalin (Lyrica -) 75 mg PO [facility] Last Admin: 05/05/17 21:41 Dose: 75 mg Rosuvastatin Calcium (Crestor -) 20 mg PO [facility] Last Admin: 05/05/17 21:40 Dose: 20 mg Sevelamer Carbonate (Renvela -) 800 mg PO TIDCM [facility] Last Admin: 05/06/17 07:48 Dose: 800 mg - Objective Vital Signs: Vital Signs Temperature 98.6 F 05/06/17 07:51 Pulse Rate 87 05/06/17 07:51 Respiratory Rate 19 05/06/17 07:53 Blood Pressure 143/75 05/06/17 07:51 O2 Sat by Pulse Oximetry (%) 95 05/06/17 07:53 Constitutional: Yes: Well Nourished, Calm Eyes: Yes: WNL HENT: Yes: WNL Neck: Yes: WNL Cardiovascular: Yes: Regular Rate and Rhythm, S1, S2 Respiratory: Yes: Wheezes (BILATERAL WHEEZES) Gastrointestinal: Yes: Normal Bowel Sounds, Soft Extremities: Yes: WNL Edema: No Labs: CBC, BMP 05/06/17 06:30 05/06/17 06:30 INR, PTT INR 0.91 (0.82-1.09) 05/03/17 12:00 - ....Imaging Cat Scan: Report Reviewed, Image Reviewed (chest ct,-infiltrates,-effusions) Problem List - Problems (1) Chronic kidney disease Code(s): N18.9 - CHRONIC KIDNEY DISEASE, UNSPECIFIED (2) Diabetes Code(s): E11.9 - TYPE 2 DIABETES MELLITUS WITHOUT COMPLICATIONS (3) Dyspnea Code(s): R06.00 - DYSPNEA, UNSPECIFIED Assessment/Plan Problem List - Problems (1) COPD exacerbation Code(s): J44.1 - CHRONIC OBSTRUCTIVE PULMONARY DISEASE W (ACUTE) EXACERBATION (2) Pneumonia Code(s): J18.9 - PNEUMONIA, UNSPECIFIED ORGANISM (3) Hypertension Code(s): I10 - ESSENTIAL (PRIMARY) HYPERTENSION (4) Diabetes Code(s): E11.9 - TYPE 2 DIABETES MELLITUS WITHOUT COMPLICATIONS (5) Hypercholesterolemia Code(s): E78.00 - PURE HYPERCHOLESTEROLEMIA, UNSPECIFIED Assessment/Plan Acute COPD Exacerbation r/o Pneumonia/Aspiration HTN DM Hypercholesterolemia - IV medrol taper - inhaled bronchodilators standing and PRN - O2 to keep Spo2 >90 - DVT prophylaxis DR SANABRIA
[2017-05-06 14:14] LABS: MICROALBUMIN/CREATININE RATIO 2061.5 mg/g creat (0.0-30.0)
[2017-05-06 14:55] LABS: LIPASE 93 U/L (73-393)
--- NOTE | 2017-05-06 15:25 | PN ---
Progress Note, Physician History of Present Illness: Pt seen and examined at bedside. She is awake and alert. She feels that her breathing is improving. - Current Medication List Current Medications: Active Medications Acetaminophen (Ofirmev Injection -) 1,000 mg IVPB Q6H PRN PRN Reason: PAIN LEVEL 1-5 Al Hydroxide/Mg Hydroxide (Mylanta Oral Suspension -) 30 ml PO Q6H PRN PRN Reason: DYSPEPSIA Last Admin: 05/04/17 18:47 Dose: 30 ml Albuterol Sulfate (Ventolin 0.083% Nebulizer Soln -) 1 amp NEB Q4H PRN PRN Reason: SHORT OF BREATH/WHEEZING Albuterol/Ipratropium (Duoneb -) 1 amp NEB RQID [facility] Last Admin: 05/06/17 11:31 Dose: 1 amp Amlodipine Besylate (Norvasc -) 10 mg PO DAILY [facility] Last Admin: 05/06/17 09:48 Dose: 10 mg Budesonide/Formoterol Fumarate (Symbicort 160/4.5mcg -) 2 puff IH BID [facility] Last Admin: 05/06/17 09:52 Dose: 2 puff Hydralazine HCl (Apresoline Injection -) 10 mg IVPUSH Q6H PRN PRN Reason: HYPERTENSION CEFTRIAXONE 1 G/50 ML PREMIX (Ceftriaxone 1 Gm-D5w Bag) 50 mls @ 100 mls/hr IVPB DAILY [facility] Last Admin: 05/06/17 09:47 Dose: 100 mls/hr Azithromycin 500 mg/ Dextrose 250 mls @ 250 mls/hr IVPB DAILY [facility] Stop: 05/08/17 10:59 Last Admin: 05/06/17 09:51 Dose: 250 mls/hr Insulin Aspart (Novolog Vial Sliding Scale -) 1 vial SQ ACHS [facility] PRN Reason: Protocol Last Admin: 05/06/17 11:54 Dose: 4 units Methylprednisolone Sodium Succinate (Solu-Medrol -) 40 mg IVPUSH Q8H-IV [facility] Metoprolol Tartrate (Lopressor -) 50 mg PO BID [facility] Last Admin: 05/06/17 09:48 Dose: 50 mg Pantoprazole Sodium (Protonix Iv) 40 mg IVPUSH BID [facility] Last Admin: 05/06/17 09:52 Dose: 40 mg Pregabalin (Lyrica -) 75 mg PO HS [facility] Last Admin: 05/05/17 21:41 Dose: 75 mg Rosuvastatin Calcium (Crestor -) 20 mg PO [facility] Last Admin: 05/05/17 21:40 Dose: 20 mg Sevelamer Carbonate (Renvela -) 800 mg PO TIDCM [facility] Last Admin: 05/06/17 11:55 Dose: 800 mg - Objective Vital Signs: Vital Signs Temperature 97.9 F 05/06/17 14:32 Pulse Rate 97 H 05/06/17 14:32 Respiratory Rate 20 05/06/17 14:32 Blood Pressure 147/73 05/06/17 14:32 O2 Sat by Pulse Oximetry (%) 95 05/06/17 07:53 Constitutional: Yes: Calm Eyes: Yes: Conjunctiva Clear HENT: Yes: Atraumatic Cardiovascular: Yes: S1, S2 Respiratory: Yes: On Nasal O2, Wheezes Gastrointestinal: Yes: Soft Genitourinary: Yes: WNL Musculoskeletal: Yes: WNL Edema: No Neurological: Yes: Oriented Psychiatric: Yes: Oriented Labs: CBC, BMP 05/06/17 06:30 05/06/17 06:30 INR, PTT INR 0.91 (0.82-1.09) 05/03/17 12:00 Problem List - Problems (1) COPD exacerbation Code(s): J44.1 - CHRONIC OBSTRUCTIVE PULMONARY DISEASE W (ACUTE) EXACERBATION (2) Chronic kidney disease Code(s): N18.9 - CHRONIC KIDNEY DISEASE, UNSPECIFIED (3) Diabetes Code(s): E11.9 - TYPE 2 DIABETES MELLITUS WITHOUT COMPLICATIONS (4) Hypertension Code(s): I10 - ESSENTIAL (PRIMARY) HYPERTENSION Assessment/Plan Current Medications Generic Name Dose Route Start Last Admin Trade Name Freq PRN Reason Stop Dose Admin Acetaminophen 1,000 mg 05/03/17 18:47 Ofirmev Injection - IVPB Q6H PRN PAIN LEVEL 1-5 Al Hydroxide/Mg Hydroxide 30 ml 05/03/17 18:53 05/04/17 18:47 Mylanta Oral Suspension - PO 30 ml Q6H PRN Administration DYSPEPSIA Albuterol Sulfate 1 amp 05/04/17 13:54 Ventolin 0.083% Nebulizer Soln - NEB Q4H PRN SHORT OF BREATH/WHEEZING Albuterol/Ipratropium 1 amp 05/04/17 16:00 05/06/17 11:31 Duoneb - NEB 1 amp RQID [facility] Administration Amlodipine Besylate 10 mg 05/04/17 10:00 05/06/17 09:48 Norvasc - PO 10 mg DAILY [facility] Administration Budesonide/Formoterol Fumarate 2 puff 05/03/17 22:00 05/06/17 09:52 Symbicort 160/4.5mcg - IH 2 puff BID [facility] Administration Hydralazine HCl 10 mg 05/04/17 08:41 Apresoline Injection - IVPUSH Q6H PRN HYPERTENSION CEFTRIAXONE 1 G/50 ML PREMIX 50 mls @ 100 mls/hr 05/04/17 14:00 05/06/17 09: 47 Ceftriaxone 1 Gm-D5w Bag IVPB 100 mls/hr DAILY [facility] Administration Azithromycin 500 mg/ Dextrose 250 mls @ 250 mls/hr 05/04/17 14:00 05/06/17 09 :51 IVPB 05/08/17 10:59 250 mls/hr DAILY [facility] Administration Insulin Aspart 1 vial 05/03/17 22:00 05/06/17 11:54 Novolog Vial Sliding Scale - SQ 4 units ACHS [facility] Administration Protocol Methylprednisolone Sodium Succinate 40 mg 05/06/17 11:36 Solu-Medrol - IVPUSH Q8H-IV [facility] Metoprolol Tartrate 50 mg 05/03/17 22:00 05/06/17 09:48 Lopressor - PO 50 mg BID [facility] Administration Pantoprazole Sodium 40 mg 05/03/17 22:00 05/06/17 09:52 Protonix Iv IVPUSH 40 mg BID [facility] Administration Pregabalin 75 mg 05/03/17 22:00 05/05/17 21:41 Lyrica - PO 75 mg HS [facility] Administration Rosuvastatin Calcium 20 mg 05/04/17 22:00 05/05/17 21:40 Crestor - PO 20 mg HS [facility] Administration Sevelamer Carbonate 800 mg 05/05/17 08:00 05/06/17 11:55 Renvela - PO 800 mg TIDCM [facility] Administration Laboratory Tests 05/06/17 06:30 JUAN DAVID Screen Pending c-ANCA Pending Proteinase 3 (PR3) Pending p-ANCA Pending Atypical p-ANCA Pending Myeloperoxidase Ab Pending Hepatitis A Ab Total Pending Hep Bs Antigen Pending Hep Bs Antibody Pending Hep B Core Total Ab Pending Impression 1. CKD 2. HTN 3. HLD 4. COPD exacerbation 5. DM Plan - follow renal workup - will also need outpt follow up - awaiting outpt labs - consider cardio eval - no indication for HD at this point - will follow Dr Reis
--- NOTE | 2017-05-06 15:54 | PN ---
Teaching Attending Note Name of Resident: Lyudmila Rasmussen ATTENDING PHYSICIAN STATEMENT I saw and evaluated the patient. I reviewed the resident's note and discussed the case with the resident. I agree with the resident's findings and plan as documented. SUBJECTIVE: c/o epigastric pain that improves with eating. been having for several months but worse in the past week. breathing has improved. denies Cp, SOB< fever, chills, cough, N/V/C/D OBJECTIVE: Last Vital Signs Temp Pulse Resp BP Pulse Ox 97.9 F 97 H 20 147/73 95 05/06/17 14:32 05/06/17 14:32 05/06/17 14:32 05/06/17 14:32 05/06/17 07:53 General NAD CV S1 S2 RRR no murmur/rub/gallop Lungs diffuse expiratory wheezing no crackles Abdomen soft NT/ND negative cuellar sign Extremities no pedal edema ASSESSMENT AND PLAN: 87yo F wtih PMH DM, HTN, CKD stage 3, CHF, and COPD presented to the ER with difficulty breathing and chest pain 1. Acute COPD exacerbation- modest improvement. agree with pulmonary on slowly titrating down to 40mg Q8H. on Azithromycin and Cefrtriaxone day 3. on inhalers. questionable R base infiltrate on CXR however not seen on abdominal CT. will treat at this time. on nebs. pulmonary on board. will need pre and post prior to discharge 2. Epigastric pain- possible duodenal ulcer. lipase WNL. liver enzymes WNL. not on recent steroids po. never had EGD done. CT of abdomen showing partially distended stomach. concern as pt will be on long steroid taper if there is an ulcer which will place pt at increased risk of bleeding. will consult GI 3. Acute on CKD stage III- baseline Cr 2.6. FeNa <1%. Cr now stabilizing. renal on board. workup sent out. will f/u labs. nephrology on board.hold nephrotoxic agents. no indication for HD 4. SDH- hx of fall. shows stable in size on repeat imaging. no deficits. neurosurgery on board. no intervention indicated at this time 5. Normocytic anemia- slowly trending down. no signs of bleeding. check iron studies. no indication for txn 6. CHF- no signs of volume overload. 7. DVT ppx- SCD 8. case d/w daughter present at bedside. all questions answered. verbalized understanding and agreement with plan. can d/c cardiac monitoring
[2017-05-06] MEDS: methylPREDNISolone NA SUCC 40 MG/1 ML VIAL IVPUSH SCH (17:38)
[2017-05-06] MEDS: ROSUVASTATIN CA 20 MG TABLET (FP) PO SCH (22:15)
[2017-05-06] MEDS: PREGABALIN 25 MG CAPSULE PO SCH (22:15)
[2017-05-07] MEDS: methylPREDNISolone NA SUCC 40 MG/1 ML VIAL IVPUSH SCH ×3 (02:37→21:59)
[2017-05-07] MEDS: INSULIN SLIDING SCALE (NOVOLOG) 1 VIAL SQ SCH ×4 (06:40→21:58)
[2017-05-07 06:59] LABS: HEMATOCRIT 30.1 % (32.4-45.2); HEMOGLOBIN 9.9 GM/dL (10.7-15.3); MCHC 32.8 g/dl (32.0-36.0); MEAN PLT VOLUME 9.4 fl (7.5-11.1); PLATELET COUNT 248 K/MM3 (134-434); RBC 3.66 M/mm3 (3.60-5.2); RDW 15.3 % (11.6-15.6); WHITE BLOOD COUNT 7.7 K/mm3 (4.0-10.0)
[2017-05-07] MEDS: ALBUTEROL SO4 2.5/IPRATROPIUM 0.5 INH SOL 3 ML VIAL.NEB. NEB SCH ×4 (08:08→21:35)
[2017-05-07] MEDS ORDERED: PT OWN MED DRAWER 7, Y5N ONE (08:29)
[2017-05-07 09:18] LABS: ANION GAP 9 (8-16); BLOOD UREA NITROGEN 74 mg/dL (7-18); CALCIUM 8.1 mg/dL (8.5-10.1); CHLORIDE 108 mmol/L (98-107); CO2 25 mmol/L (21-32); CREATININE 4.1 mg/dL (0.55-1.02); GLUCOSE,RANDOM 158 mg/dL (74-106); POTASSIUM 4.5 mmol/L (3.5-5.1); SODIUM 142 mmol/L (136-145)
[2017-05-07] MEDS: CEFTRIAXONE 1 G/50 ML PREMIX 50 ML IVPB SCH (09:36)
[2017-05-07] MEDS: amLODIPine BESYLATE 10 MG TABLET (FP) PO SCH (09:36)
[2017-05-07] MEDS: METOPROLOL TARTRATE 50 MG TABLET (FP) PO SCH ×2 (09:36→21:58)
[2017-05-07] MEDS: PANTOPRAZOLE SODIUM 40 MG VIAL IVPUSH SCH ×2 (09:37→22:15)
[2017-05-07] MEDS: AZITHROMYCIN IVPB 500 MG in DEXTROSE 5%-WATER - 250 ML IVPB SCH (09:37)
[2017-05-07] MEDS: SEVELAMER CARBONATE 800 MG TAB (FP) PO SCH ×3 (09:37→18:02)
[2017-05-07] MEDS: BUDESONIDE/FORMETEROL FUMARATE 160/4.5 mcg INHALER IH SCH ×2 (09:38→21:59)
--- NOTE | 2017-05-07 10:12 | CON.GI ---
Consult Consult Specialty:: GI Reason for Consultation:: epigastric pain - History of Present Illness History of Present Illness: chart reviewed. Events noted. 87F with PMH DM, HTN, CKD stage 3, normocytic, normochroic anemia, CHF, and COPD presented to the ER with COPD excaserbation. recovering nicely from pulmonary standpoint, while on steroids, however now has epigastric pain that improves with meals and not associated with breathing, dyspnea, chest tightness. The non-radiating, 4-5/10, deep pain has been present on/off for few months. The patient was noted to have normal hepatic panel, US of the liver, and lipase. CT a/p revealed thickened gastric antrum. No significant weight loss , jaundice, melena, hematochezia, or hematemesis. - History Source History Provided By: Patient, Medical Record, Caregiver - Past Medical History Cardio/Vascular: Yes: HTN Pulmonary: Yes: COPD Renal/: Yes: Renal Calculi (maybe- she had flank pain) ...: No Endocrine: Yes: Diabetes Mellitus - Alcohol/Substance Use Hx Alcohol Use: No - Smoking History Smoking history: Former smoker Have you smoked in the past 12 months: No Home Medications - Allergies Allergies/Adverse Reactions: Allergies Allergy/AdvReac Type Severity Reaction Status Date / Time No Known Allergies Allergy Verified 05/03/17 11:25 - Home Medications Home Medications: Ambulatory Orders Albuterol Sulfate Inhaler - [Ventolin Hfa Inhaler -] 1 - 2 inh PO Q4H 05/03/17 Amlodipine Besylate [Norvasc -] 10 mg PO DAILY 05/03/17 Cyclosporine [Restasis] 1 each OP DAILY 05/03/17 Glipizide [Glipizide ER] 10 mg PO DAILY 05/03/17 Metoprolol Succinate [Toprol Xl -] 50 mg PO DAILY 05/03/17 Oxybutynin Chloride 5 mg PO DAILY 05/03/17 Pantoprazole Sodium [Protonix] 40 mg PO DAILY 05/03/17 Potassium Chloride [Klor-Con M20] 20 meq PO DAILY 05/03/17 Pregabalin [Lyrica] 75 mg PO HS 05/03/17 Rosuvastatin [Crestor -] 20 mg PO DAILY 05/03/17 Salmeterol/Fluticasone [Advair 100Mcg/50Mcg -] 1 inh PO BID 05/03/17 Tramadol HCl/Acetaminophen [Tramadol-Acetaminophn 37.5-325] 1 each PO PRN PRN Valsartan [Diovan] 160 mg PO DAILY 05/03/17 Family Disease History - Family Disease History Family History: Unremarkable Review of Systems Findings/Remarks: as per HPI, H&P Physical Exam-GI Vital Signs: Vital Signs Temperature 98.6 F 05/07/17 05:55 Pulse Rate 101 H 05/07/17 09:00 Respiratory Rate 20 05/07/17 09:00 Blood Pressure 148/89 05/07/17 09:00 O2 Sat by Pulse Oximetry (%) 95 05/07/17 08:58 Constitutional: Yes: Well Nourished, No Distress Eyes: Yes: Conjunctiva Clear HENT: Yes: Atraumatic Neck: Yes: Supple Gastrointestinal Inspection: No: Ascites, Distention ...Palpate: Yes: Guarding, Soft, Tenderness, Epigastium Neurological: Yes: Alert Labs: CBC, BMP 05/07/17 05:05 05/07/17 05:05 INR, PTT INR 0.91 (0.82-1.09) 05/03/17 12:00 CBCD WBC 7.7 K/mm3 (4.0-10.0) 05/07/17 05:05 RBC 3.66 M/mm3 (3.60-5.2) 05/07/17 05:05 Hgb 9.9 GM/dL (10.7-15.3) L 05/07/17 05:05 Hct 30.1 % (32.4-45.2) L 05/07/17 05:05 MCV 82.0 fl (80-96) 05/07/17 05:05 MCHC 32.8 g/dl (32.0-36.0) 05/07/17 05:05 RDW 15.3 % (11.6-15.6) 05/07/17 05:05 Plt Count 248 K/MM3 (134-434) 05/07/17 05:05 MPV 9.4 fl (7.5-11.1) 05/07/17 05:05 CMP Sodium 142 mmol/L (136-145) 05/07/17 05:05 Potassium 4.5 mmol/L (3.5-5.1) 05/07/17 05:05 Chloride 108 mmol/L (98-107) H 05/07/17 05:05 Carbon Dioxide 25 mmol/L (21-32) 05/07/17 05:05 Anion Gap 9 (8-16) 05/07/17 05:05 BUN 74 mg/dL (7-18) H 05/07/17 05:05 Creatinine 4.1 mg/dL (0.55-1.02) H 05/07/17 05:05 Creat Clearance w eGFR 10.29 (>60) 05/06/17 06:30 Calcium 8.1 mg/dL (8.5-10.1) L 05/07/17 05:05 Total Bilirubin 0.5 mg/dL (0.2-1.0) 05/06/17 06:30 AST 16 U/L (15-37) 05/06/17 06:30 ALT 24 U/L (12-78) 05/06/17 06:30 Alkaline Phosphatase 57 U/L (45-117) 05/06/17 06:30 Total Protein 6.7 g/dl (6.4-8.2) 05/06/17 06:30 Albumin 3.2 g/dl (3.4-5.0) L 05/06/17 06:30 Imaging - Results X-ray: Report Reviewed Cat Scan: Report Reviewed Ultrasound: Report Reviewed Problem List - Problems (1) Epigastric abdominal pain Code(s): R10.13 - EPIGASTRIC PAIN (2) Abnormal CT of the abdomen Code(s): R93.5 - ABN FINDINGS ON DX IMAGING OF ABD REGIONS, INC RETROPERITON (3) COPD exacerbation Code(s): J44.1 - CHRONIC OBSTRUCTIVE PULMONARY DISEASE W (ACUTE) EXACERBATION (4) Chronic kidney disease Code(s): N18.9 - CHRONIC KIDNEY DISEASE, UNSPECIFIED (5) Diabetes Code(s): E11.9 - TYPE 2 DIABETES MELLITUS WITHOUT COMPLICATIONS (6) Dyspnea Code(s): R06.00 - DYSPNEA, UNSPECIFIED (7) Hypercholesterolemia Code(s): E78.00 - PURE HYPERCHOLESTEROLEMIA, UNSPECIFIED (8) Hypertension Code(s): I10 - ESSENTIAL (PRIMARY) HYPERTENSION (9) Pneumonia Code(s): J18.9 - PNEUMONIA, UNSPECIFIED ORGANISM Assessment/Plan An 87 F with multiple risk factors for PU/ presents with abnormal CT of the stomach and epigastric pain. Agree with PPI Plan EGD Full liquid diet today, NPO after midnight.
--- NOTE | 2017-05-07 11:02 | PN ---
Progress Note (short form) - Note Progress Note: PULMONARY Breathing better. Less cough and wheezing. Last Vital Signs Temp Pulse Resp BP Pulse Ox 98.6 F 101 H 20 148/89 95 05/07/17 05:55 05/07/17 09:00 05/07/17 09:00 05/07/17 09:00 05/07/17 08:58 Gen: NAD at rest Heart: RRR Lung: decreased breath sounds at the bases, no wheezes/rhonchi Abd: soft, nontender Ext: no edema CBC, BMP 05/07/17 05:05 05/07/17 05:05 Active Medications Acetaminophen (Ofirmev Injection -) 1,000 mg IVPB Q6H PRN PRN Reason: PAIN LEVEL 1-5 Al Hydroxide/Mg Hydroxide (Mylanta Oral Suspension -) 30 ml PO Q6H PRN PRN Reason: DYSPEPSIA Last Admin: 05/04/17 18:47 Dose: 30 ml Albuterol Sulfate (Ventolin 0.083% Nebulizer Soln -) 1 amp NEB Q4H PRN PRN Reason: SHORT OF BREATH/WHEEZING Albuterol/Ipratropium (Duoneb -) 1 amp NEB RQID [facility] Last Admin: 05/07/17 08:08 Dose: 1 amp Amlodipine Besylate (Norvasc -) 10 mg PO DAILY [facility] Last Admin: 05/07/17 09:36 Dose: 10 mg Budesonide/Formoterol Fumarate (Symbicort 160/4.5mcg -) 2 puff IH BID [facility] Last Admin: 05/07/17 09:38 Dose: 2 puff Hydralazine HCl (Apresoline Injection -) 10 mg IVPUSH Q6H PRN PRN Reason: HYPERTENSION CEFTRIAXONE 1 G/50 ML PREMIX (Ceftriaxone 1 Gm-D5w Bag) 50 mls @ 100 mls/hr IVPB DAILY [facility] Last Admin: 05/07/17 09:36 Dose: 100 mls/hr Azithromycin 500 mg/ Dextrose 250 mls @ 250 mls/hr IVPB DAILY [facility] Stop: 05/08/17 10:59 Last Admin: 05/07/17 09:37 Dose: 250 mls/hr Insulin Aspart (Novolog Vial Sliding Scale -) 1 vial SQ ACHS [facility] PRN Reason: Protocol Last Admin: 03/07/18 06:40 Dose: 2 units Methylprednisolone Sodium Succinate (Solu-Medrol -) 40 mg IVPUSH BID [facility] Metoprolol Tartrate (Lopressor -) 50 mg PO BID [facility] Last Admin: 05/07/17 09:36 Dose: 50 mg Pantoprazole Sodium (Protonix Iv) 40 mg IVPUSH BID [facility] Last Admin: 05/07/17 09:37 Dose: 40 mg Pregabalin (Lyrica -) 75 mg PO [facility] Last Admin: 05/06/17 22:15 Dose: 75 mg Rosuvastatin Calcium (Crestor -) 20 mg PO [facility] Last Admin: 05/06/17 22:15 Dose: 20 mg Sevelamer Carbonate (Renvela -) 800 mg PO TIDCM [facility] Last Admin: 05/07/17 09:37 Dose: 800 mg A/P Acute COPD Exacerbation r/o Pneumonia/Aspiration HTN DM Hypercholesterolemia - medrol taper, if continues to improve can likely change steroids to PO prednisone 40mg daily and taper as outpt - inhaled bronchodilators standing and PRN - would complete 7 days of empiric antibiotics, can change to PO when ready for discharge - O2 to keep Spo2 >90% - will need outpt f/u of CXR to ensure resolution of infiltrate - DVT prophylaxis Problem List - Problems (1) COPD exacerbation Code(s): J44.1 - CHRONIC OBSTRUCTIVE PULMONARY DISEASE W (ACUTE) EXACERBATION (2) Pneumonia Code(s): J18.9 - PNEUMONIA, UNSPECIFIED ORGANISM (3) Hypertension Code(s): I10 - ESSENTIAL (PRIMARY) HYPERTENSION (4) Diabetes Code(s): E11.9 - TYPE 2 DIABETES MELLITUS WITHOUT COMPLICATIONS (5) Hypercholesterolemia Code(s): E78.00 - PURE HYPERCHOLESTEROLEMIA, UNSPECIFIED
--- NOTE | 2017-05-07 11:26 | PN ---
Teaching Attending Note Name of Resident: Lyudmila Rasmussen ATTENDING PHYSICIAN STATEMENT I saw and evaluated the patient. I reviewed the resident's note and discussed the case with the resident. I agree with the resident's findings and plan as documented. SUBJECTIVE:continues to have epigastric pain. breathing improved. denies Cp, SOB , fever, chills, cough, N/V/C/D OBJECTIVE: Last Vital Signs Temp Pulse Resp BP Pulse Ox 98.6 F 101 H 20 148/89 95 05/07/17 05:55 05/07/17 09:00 05/07/17 09:00 05/07/17 09:00 05/07/17 08:58 General NAD CV S1 S2 RRR no murmur/rub/gallop Lungs scattered expiratory wheezing no crackles Abdomen soft +epigatric tenderness ND negative cuellar sign ASSESSMENT AND PLAN: 87yo F wtih PMH DM, HTN, CKD stage 3, CHF, and COPD presented to the ER with difficulty breathing and chest pain 1. Acute COPD exacerbation-improved from yesterday. will decrease steroids to 40mg BID will possible transition to po in 24-48H. on Azithromycin and Cefrtriaxone day 4. on inhalers. on nebs. pulmonary on board. will need pre and post prior to discharge 2. Epigastric pain- possible duodenal ulcer. appreciate GI recommendations and plan to proceed with EGD in AM. NPO past midnight. 3. Acute on CKD stage III- baseline Cr 2.6. FeNa <1%. Cr stable for past 3 days. renal on board. workup sent out. will f/u labs. nephrology on board.hold nephrotoxic agents. no indication for HD 4. SDH- hx of fall. shows stable in size on repeat imaging. no deficits. neurosurgery on board. no intervention indicated at this time 5. Normocytic anemia- Hgb stable. iron studies pending. no indication for txn 6. CHF- no signs of volume overload. 7. DVT ppx- SCD 8. PT eval, pre and post in AM. d/c cardiac monitoring
--- NOTE | 2017-05-07 12:08 | PN ---
Physical Exam: SUBJECTIVE: Patient seen and examined. No acute events overnight. Patient says she still experiences the RUQ/Epigastric pain that has yet to resolve. She denies SOB, dizziness, lightheadedness, chest pain, nausea,vomiting, fevers. OBJECTIVE: Vital Signs Period Temp Pulse Resp BP Sys/Betancourt Pulse Ox Last 24 Hr 97.9 F-99.2 F 84-101 19-20 145-150/71-89 95-95 GENERAL: The patient is awake, alert, and fully oriented, in no acute distress. EYES: extraocular movements intact ENT:oropharynx clear without exudates, moist mucous membranes. NECK: supple. LUNGS: CTA b/l, no wheezing appreciated HEART: Regular rate and rhythm, S1, S2 without murmur, rub or gallop. ABDOMEN: epigastric tenderness, neg cuellar, ND, positive bowel sounds EXTREMITIES: 2+ pulses, warm, well-perfused, no edema. NEUROLOGICAL: Cranial nerves II through XII grossly intact. Normal speech, gait not observed PSYCH: Normal mood, normal affect. Laboratory Results - last 24 hr 05/04/17 05/05/17 05/06/17 23:00 06:45 06:00 WBC RBC Hgb Hct MCV MCH MCHC RDW Plt Count MPV PTT (Actin FS) Sodium Potassium Chloride Carbon Dioxide Anion Gap BUN Creatinine Creat Clearance w eGFR POC Glucometer Random Glucose Calcium 8.9 Ferritin Total Bilirubin AST ALT Alkaline Phosphatase Total Protein Albumin Lipase Cancelled PTH Intact 294 H PTH Intact Intraop 0 m Ur Random Creatinine 130.3 Ur Random Microalbumin 2686.1 Microalb/Creat Ratio 2061.5 H 05/06/17 05/06/17 05/06/17 06:30 11:51 17:31 WBC RBC Hgb Hct MCV MCH MCHC RDW Plt Count MPV PTT (Actin FS) Sodium 142 Potassium 4.9 Chloride 106 Carbon Dioxide 25 Anion Gap 11 BUN 59 H Creatinine 4.1 H Creat Clearance w eGFR 10.29 POC Glucometer 216 246 Random Glucose 147 H Calcium 8.9 Ferritin Total Bilirubin 0.5 AST 16 ALT 24 Alkaline Phosphatase 57 Total Protein 6.7 Albumin 3.2 L Lipase 93 PTH Intact PTH Intact Intraop 0 m Ur Random Creatinine Ur Random Microalbumin Microalb/Creat Ratio 05/06/17 05/07/17 05/07/17 22:30 05:05 05:05 WBC 7.7 RBC 3.66 Hgb 9.9 L Hct 30.1 L MCV 82.0 MCH 27.0 MCHC 32.8 RDW 15.3 Plt Count 248 MPV 9.4 PTT (Actin FS) 22.9 L Sodium Potassium Chloride Carbon Dioxide Anion Gap BUN Creatinine Creat Clearance w eGFR POC Glucometer 233 Random Glucose Calcium Ferritin Total Bilirubin AST ALT Alkaline Phosphatase Total Protein Albumin Lipase PTH Intact PTH Intact Intraop 0 m Ur Random Creatinine Ur Random Microalbumin Microalb/Creat Ratio 05/07/17 05/07/17 05/07/17 05:05 05:05 06:16 WBC RBC Hgb Hct MCV MCH MCHC RDW Plt Count MPV PTT (Actin FS) Sodium 142 Cancelled Potassium 4.5 Cancelled Chloride 108 H Cancelled Carbon Dioxide 25 Cancelled Anion Gap 9 Cancelled BUN 74 H Cancelled Creatinine 4.1 H Cancelled Creat Clearance w eGFR POC Glucometer 165 Random Glucose 158 H Cancelled Calcium 8.1 L Cancelled Ferritin 29.102 Total Bilirubin AST ALT Alkaline Phosphatase Total Protein Albumin Lipase PTH Intact PTH Intact Intraop 0 m Ur Random Creatinine Ur Random Microalbumin Microalb/Creat Ratio 05/07/17 06:18 WBC RBC Hgb Hct MCV MCH MCHC RDW Plt Count MPV PTT (Actin FS) Sodium Potassium Chloride Carbon Dioxide Anion Gap BUN Creatinine Creat Clearance w eGFR POC Glucometer 76 Random Glucose Calcium Ferritin Total Bilirubin AST ALT Alkaline Phosphatase Total Protein Albumin Lipase PTH Intact PTH Intact Intraop 0 m Ur Random Creatinine Ur Random Microalbumin Microalb/Creat Ratio Active Medications Generic Name Dose Route Start Last Admin Trade Name Freq PRN Reason Stop Dose Admin Acetaminophen 1,000 mg 05/03/17 18:47 Ofirmev Injection - IVPB Q6H PRN PAIN LEVEL 1-5 Al Hydroxide/Mg Hydroxide 30 ml 05/03/17 18:53 05/04/17 18:47 Mylanta Oral Suspension - PO 30 ml Q6H PRN Administration DYSPEPSIA Albuterol Sulfate 1 amp 05/04/17 13:54 Ventolin 0.083% Nebulizer Soln - NEB Q4H PRN SHORT OF BREATH/WHEEZING Albuterol/Ipratropium 1 amp 05/04/17 16:00 05/07/17 11:39 Duoneb - NEB 1 amp RQID [facility] Administration Amlodipine Besylate 10 mg 05/04/17 10:00 05/07/17 09:36 Norvasc - PO 10 mg DAILY [facility] Administration Budesonide/Formoterol Fumarate 2 puff 05/03/17 22:00 05/07/17 09:38 Symbicort 160/4.5mcg - IH 2 puff BID [facility] Administration CEFTRIAXONE 1 G/50 ML PREMIX 50 mls @ 100 mls/hr 05/04/17 14:00 05/07/17 09: 36 Ceftriaxone 1 Gm-D5w Bag IVPB 100 mls/hr DAILY [facility] Administration Azithromycin 500 mg/ Dextrose 250 mls @ 250 mls/hr 05/04/17 14:00 05/07/17 09 :37 IVPB 05/08/17 10:59 250 mls/hr DAILY [facility] Administration Insulin Aspart 1 vial 05/03/17 22:00 05/07/17 06:40 Novolog Vial Sliding Scale - SQ 2 units ACHS [facility] Administration Protocol Methylprednisolone Sodium Succinate 40 mg 05/07/17 22:00 Solu-Medrol - IVPUSH BID [facility] Metoprolol Tartrate 50 mg 05/03/17 22:00 05/07/17 09:36 Lopressor - PO 50 mg BID [facility] Administration Pantoprazole Sodium 40 mg 05/03/17 22:00 05/07/17 09:37 Protonix Iv IVPUSH 40 mg BID [facility] Administration Pregabalin 75 mg 05/03/17 22:00 05/06/17 22:15 Lyrica - PO 75 mg HS [facility] Administration Rosuvastatin Calcium 20 mg 05/04/17 22:00 05/06/17 22:15 Crestor - PO 20 mg HS [facility] Administration Sevelamer Carbonate 800 mg 05/05/17 08:00 05/07/17 09:37 Renvela - PO 800 mg TIDCM [facility] Administration ASSESSMENT/PLAN: 87 yo f with HTN, NIDDM, CKD, CHF, remote SDH, nephrolithiasis admitted with dyspnea, right chest/abdominal pain and LUCY. #Acute COPD exacerbation -improved -did not appreciate wheezing on PE this morning -Taper Solu-medrol now 40mg IV BID, plan to transition to oral tomorrow. -Pulm on board -Duonebs standing, PRN -Chest Xray 3/4: The patient appears to have a progressive infiltrate / atelectasis at the right base. However not shown on Chest CT. -Chest CT 05/05- severe emphysematous changes -Cont. IV abx: Azithromycin/Ceftriaxone Day 4 -Doppler LE neg for DVT #Epigastric Pain -possible duodenal ulcer -labs WNL -GI consulted: Dr. Noland -planned EGD for tomorrow. -NPO after midnight -CT abdomen showing partially distended stomach. #Acute on chronic CKD Stage IV -likely pre-renal, decreased PO intake on history -baseline 2.6 -Currently 4.1, stable the last 3 days. -FENA <1%, creatinine 4.1 (No change since yesterday) -Nephro consulted: Renal workup in progress, FU reccs -Canca, panca, hep panel -Renal/Bladder U/S: Small and echogenic kidneys consistent with chronic medical renal disease. There is no evidence of hydronephrosis or acute pathology. -Strict I/O's -renal dosing meds -avoid nephrotoxins -FU renal outpatient #Sinus Tachycardia -improved -doppler LE neg for DVT -Defer V/Q scan for now and monitor #Acute/Subacute Subdural hematoma -reports recent history of falls, very poor historian. vs heparin mediated -heparin d/c'ed given CT Head of acute/subacute subdural hematoma. Contraindicated -neuro checks -repeat CT head stable -No deficits. -Neurosurgery: No acute Neurosurgical intervention planned. -Heparin drip D/c'ed, contraindicated #Normocytic Anemia -slowly trending down -iron studies -follow H&H #DM -ISS -BGM -Diabetic diet #HTN -Cont. Metoprolol, Norvasc -Hold ARB #FEN -No IV fluids -replete as needed -diabetic diet #DVT Ppx -SCD's PT eval. Pre/post in AM Visit type - Emergency Visit Emergency Visit: Yes ED Registration Date: 05/03/17 Care time: The patient presented to the Emergency Department on the above date and was hospitalized for further evaluation of their emergent condition. - New Patient This patient is new to me today: No - Critical Care Critical Care patient: No
--- NOTE | 2017-05-07 13:29 | PN ---
Progress Note, Physician History of Present Illness: Pt seen and examined at bedside. She appear comfortable on oxygen. - Current Medication List Current Medications: Active Medications Acetaminophen (Ofirmev Injection -) 1,000 mg IVPB Q6H PRN PRN Reason: PAIN LEVEL 1-5 Al Hydroxide/Mg Hydroxide (Mylanta Oral Suspension -) 30 ml PO Q6H PRN PRN Reason: DYSPEPSIA Last Admin: 05/04/17 18:47 Dose: 30 ml Albuterol Sulfate (Ventolin 0.083% Nebulizer Soln -) 1 amp NEB Q4H PRN PRN Reason: SHORT OF BREATH/WHEEZING Albuterol/Ipratropium (Duoneb -) 1 amp NEB RQID [facility] Last Admin: 05/07/17 11:39 Dose: 1 amp Amlodipine Besylate (Norvasc -) 10 mg PO DAILY [facility] Last Admin: 05/07/17 09:36 Dose: 10 mg Budesonide/Formoterol Fumarate (Symbicort 160/4.5mcg -) 2 puff IH BID [facility] Last Admin: 05/07/17 09:38 Dose: 2 puff CEFTRIAXONE 1 G/50 ML PREMIX (Ceftriaxone 1 Gm-D5w Bag) 50 mls @ 100 mls/hr IVPB DAILY [facility] Last Admin: 05/07/17 09:36 Dose: 100 mls/hr Azithromycin 500 mg/ Dextrose 250 mls @ 250 mls/hr IVPB DAILY [facility] Stop: 05/08/17 10:59 Last Admin: 05/07/17 09:37 Dose: 250 mls/hr Insulin Aspart (Novolog Vial Sliding Scale -) 1 vial SQ ACHS [facility] PRN Reason: Protocol Last Admin: 05/07/17 13:03 Dose: Not Given Methylprednisolone Sodium Succinate (Solu-Medrol -) 40 mg IVPUSH BID [facility] Metoprolol Tartrate (Lopressor -) 50 mg PO BID [facility] Last Admin: 05/07/17 09:36 Dose: 50 mg Pantoprazole Sodium (Protonix Iv) 40 mg IVPUSH BID [facility] Last Admin: 05/07/17 09:37 Dose: 40 mg Pregabalin (Lyrica -) 75 mg PO [facility] Last Admin: 05/06/17 22:15 Dose: 75 mg Rosuvastatin Calcium (Crestor -) 20 mg PO [facility] Last Admin: 05/06/17 22:15 Dose: 20 mg Sevelamer Carbonate (Renvela -) 800 mg PO TIDCM [facility] Last Admin: 05/07/17 13:03 Dose: 800 mg - Objective Vital Signs: Vital Signs Temperature 98.6 F 05/07/17 05:55 Pulse Rate 101 H 05/07/17 09:00 Respiratory Rate 20 05/07/17 09:00 Blood Pressure 148/89 05/07/17 09:00 O2 Sat by Pulse Oximetry (%) 95 05/07/17 08:58 Constitutional: Yes: Calm Eyes: Yes: Conjunctiva Clear HENT: Yes: Atraumatic Neck: Yes: Supple Cardiovascular: Yes: S1, S2 Respiratory: Yes: On Nasal O2, Wheezes Gastrointestinal: Yes: Soft Genitourinary: Yes: WNL Musculoskeletal: Yes: WNL Edema: No Neurological: Yes: Oriented Psychiatric: Yes: Oriented Labs: CBC, BMP 05/07/17 05:05 05/07/17 05:05 INR, PTT INR 0.91 (0.82-1.09) 05/03/17 12:00 Problem List - Problems (1) COPD exacerbation Code(s): J44.1 - CHRONIC OBSTRUCTIVE PULMONARY DISEASE W (ACUTE) EXACERBATION (2) Chronic kidney disease Code(s): N18.9 - CHRONIC KIDNEY DISEASE, UNSPECIFIED (3) Diabetes Code(s): E11.9 - TYPE 2 DIABETES MELLITUS WITHOUT COMPLICATIONS (4) Hypertension Code(s): I10 - ESSENTIAL (PRIMARY) HYPERTENSION Assessment/Plan Current Medications Generic Name Dose Route Start Last Admin Trade Name Freq PRN Reason Stop Dose Admin Acetaminophen 1,000 mg 05/03/17 18:47 Ofirmev Injection - IVPB Q6H PRN PAIN LEVEL 1-5 Al Hydroxide/Mg Hydroxide 30 ml 05/03/17 18:53 05/04/17 18:47 Mylanta Oral Suspension - PO 30 ml Q6H PRN Administration DYSPEPSIA Albuterol Sulfate 1 amp 05/04/17 13:54 Ventolin 0.083% Nebulizer Soln - NEB Q4H PRN SHORT OF BREATH/WHEEZING Albuterol/Ipratropium 1 amp 05/04/17 16:00 05/07/17 11:39 Duoneb - NEB 1 amp RQID [facility] Administration Amlodipine Besylate 10 mg 05/04/17 10:00 05/07/17 09:36 Norvasc - PO 10 mg DAILY [facility] Administration Budesonide/Formoterol Fumarate 2 puff 05/03/17 22:00 05/07/17 09:38 Symbicort 160/4.5mcg - IH 2 puff BID [facility] Administration CEFTRIAXONE 1 G/50 ML PREMIX 50 mls @ 100 mls/hr 05/04/17 14:00 05/07/17 09: 36 Ceftriaxone 1 Gm-D5w Bag IVPB 100 mls/hr DAILY [facility] Administration Azithromycin 500 mg/ Dextrose 250 mls @ 250 mls/hr 05/04/17 14:00 05/07/17 09 :37 IVPB 05/08/17 10:59 250 mls/hr DAILY [facility] Administration Insulin Aspart 1 vial 05/03/17 22:00 05/07/17 13:03 Novolog Vial Sliding Scale - SQ Not Given ACHS [facility] Protocol Methylprednisolone Sodium Succinate 40 mg 05/07/17 22:00 Solu-Medrol - IVPUSH BID [facility] Metoprolol Tartrate 50 mg 05/03/17 22:00 05/07/17 09:36 Lopressor - PO 50 mg BID [facility] Administration Pantoprazole Sodium 40 mg 05/03/17 22:00 05/07/17 09:37 Protonix Iv IVPUSH 40 mg BID [facility] Administration Pregabalin 75 mg 05/03/17 22:00 05/06/17 22:15 Lyrica - PO 75 mg HS [facility] Administration Rosuvastatin Calcium 20 mg 05/04/17 22:00 05/06/17 22:15 Crestor - PO 20 mg HS [facility] Administration Sevelamer Carbonate 800 mg 05/05/17 08:00 05/07/17 13:03 Renvela - PO 800 mg TIDCM [facility] Administration Laboratory Tests 05/06/17 06:30 JUAN DAVID Screen Pending c-ANCA Pending Proteinase 3 (PR3) Pending p-ANCA Pending Atypical p-ANCA Pending Myeloperoxidase Ab Pending Hepatitis A Ab Total Pending Hep Bs Antigen Pending Hep Bs Antibody Pending Hep B Core Total Ab Pending Impression 1. CKD 2. HTN 3. HLD 4. COPD exacerbation 5. DM Plan - check bmp daily - avoid nsaids - egd in am - renal workup is in progress - awaiting outpt labs - consider cardio eval for the chest pain she gets - no indication for HD at this point - will follow Dr Reis
[2017-05-07] MEDS: PREGABALIN 25 MG CAPSULE PO SCH (21:58)
[2017-05-07] MEDS: ROSUVASTATIN CA 20 MG TABLET (FP) PO SCH (21:59)
[2017-05-08 06:08] LABS: HBSAG SCREEN Negative (Negative); HEP A AB, IGM Negative (Negative); HEP B CORE AB, TOT Positive (Negative)
[2017-05-08] MEDS: INSULIN SLIDING SCALE (NOVOLOG) 1 VIAL SQ SCH ×2 (06:18→12:03)
[2017-05-08 06:39] LABS: HEMATOCRIT 31.4 % (32.4-45.2); HEMOGLOBIN 10.4 GM/dL (10.7-15.3); MCH 27.1 pg (25.7-33.7); MCHC 33.1 g/dl (32.0-36.0); MEAN CELL VOLUME 81.9 fl (80-96); MEAN PLT VOLUME 9.9 fl (7.5-11.1); PLATELET COUNT 292 K/MM3 (134-434); RBC 3.84 M/mm3 (3.60-5.2); RDW 15.5 % (11.6-15.6); WHITE BLOOD COUNT 8.4 K/mm3 (4.0-10.0)
[2017-05-08] MEDS: ALBUTEROL SO4 2.5/IPRATROPIUM 0.5 INH SOL 3 ML VIAL.NEB. NEB SCH ×3 (07:26→15:48)
[2017-05-08 08:00] LABS: CHLORIDE 104 mmol/L (98-107); POTASSIUM 4.1 mmol/L (3.5-5.1); SODIUM 142 mmol/L (136-145)
[2017-05-08 08:09] LABS: ALBUMIN 2.9 g/dl (3.4-5.0); ALK PHOS 50 U/L (45-117); ANION GAP 11 (8-16); BILIRUBIN,TOTAL 0.6 mg/dL (0.2-1.0); BLOOD UREA NITROGEN 66 mg/dL (7-18); CALCIUM 8.3 mg/dL (8.5-10.1); CO2 27 mmol/L (21-32); CREATININE 3.7 mg/dL (0.55-1.02); GLUCOSE,RANDOM 123 mg/dL (74-106); SGOT/AST 11 U/L (15-37); SGPT/ALT 21 U/L (12-78)
[2017-05-08] MEDS: SEVELAMER CARBONATE 800 MG TAB (FP) PO SCH ×2 (08:48→12:24)
[2017-05-08] MEDS: PANTOPRAZOLE SODIUM 40 MG VIAL IVPUSH SCH ×2 (08:51→10:35)
[2017-05-08] MEDS: methylPREDNISolone NA SUCC 40 MG/1 ML VIAL IVPUSH SCH ×2 (08:51→10:34)
[2017-05-08] MEDS: amLODIPine BESYLATE 10 MG TABLET (FP) PO SCH ×2 (08:55→09:50)
[2017-05-08] MEDS: METOPROLOL TARTRATE 50 MG TABLET (FP) PO SCH ×2 (09:00→09:50)
[2017-05-08] MEDS: AZITHROMYCIN IVPB 500 MG in DEXTROSE 5%-WATER - 250 ML IVPB SCH (10:34)
[2017-05-08] MEDS: CEFTRIAXONE 1 G/50 ML PREMIX 50 ML IVPB SCH (10:34)
[2017-05-08] MEDS: BUDESONIDE/FORMETEROL FUMARATE 160/4.5 mcg INHALER IH SCH (10:35)
--- NOTE | 2017-05-08 11:41 | PN ---
Progress Note, Physician History of Present Illness: PULMONARY ALERT,NAD,-SOB. PT SCHEDULED TO HAVE EGD TODAY. - Current Medication List Current Medications: Active Medications Acetaminophen (Ofirmev Injection -) 1,000 mg IVPB Q6H PRN PRN Reason: PAIN LEVEL 1-5 Al Hydroxide/Mg Hydroxide (Mylanta Oral Suspension -) 30 ml PO Q6H PRN PRN Reason: DYSPEPSIA Last Admin: 05/04/17 18:47 Dose: 30 ml Albuterol Sulfate (Ventolin 0.083% Nebulizer Soln -) 1 amp NEB Q4H PRN PRN Reason: SHORT OF BREATH/WHEEZING Albuterol/Ipratropium (Duoneb -) 1 amp NEB RQID [facility] Last Admin: 05/08/17 11:17 Dose: 1 amp Amlodipine Besylate (Norvasc -) 10 mg PO DAILY [facility] Last Admin: 05/08/17 09:50 Dose: Not Given Budesonide/Formoterol Fumarate (Symbicort 160/4.5mcg -) 2 puff IH BID [facility] Last Admin: 05/08/17 10:35 Dose: 2 puff CEFTRIAXONE 1 G/50 ML PREMIX (Ceftriaxone 1 Gm-D5w Bag) 50 mls @ 100 mls/hr IVPB DAILY [facility] Last Admin: 05/08/17 10:34 Dose: 100 mls/hr Insulin Aspart (Novolog Vial Sliding Scale -) 1 vial SQ ACHS [facility] PRN Reason: Protocol Last Admin: 05/08/17 06:18 Dose: Not Given Methylprednisolone Sodium Succinate (Solu-Medrol -) 40 mg IVPUSH BID [facility] Last Admin: 05/08/17 10:34 Dose: 40 mg Metoprolol Tartrate (Lopressor -) 50 mg PO BID [facility] Last Admin: 05/08/17 09:50 Dose: Not Given Pantoprazole Sodium (Protonix Iv) 40 mg IVPUSH BID [facility] Last Admin: 05/08/17 10:35 Dose: 40 mg Pregabalin (Lyrica -) 75 mg PO HS [facility] Last Admin: 05/07/17 21:58 Dose: 75 mg Rosuvastatin Calcium (Crestor -) 20 mg PO HS [facility] Last Admin: 05/07/17 21:59 Dose: 20 mg Sevelamer Carbonate (Renvela -) 800 mg PO TIDCM [facility] Last Admin: 05/08/17 08:48 Dose: Not Given - Objective Vital Signs: Vital Signs Temperature 98.6 F 05/08/17 06:09 Pulse Rate 84 05/08/17 06:09 Respiratory Rate 20 05/08/17 06:09 Blood Pressure 152/75 05/08/17 06:09 O2 Sat by Pulse Oximetry (%) 95 05/07/17 21:00 Constitutional: Yes: Well Nourished, Calm Eyes: Yes: WNL HENT: Yes: WNL Neck: Yes: WNL Cardiovascular: Yes: Regular Rate and Rhythm, S1, S2 Respiratory: Yes: Diminished Gastrointestinal: Yes: Normal Bowel Sounds, Soft Extremities: Yes: WNL Edema: No Labs: CBC, BMP 05/08/17 05:05 05/08/17 05:05 INR, PTT INR 0.91 (0.82-1.09) 05/03/17 12:00 Problem List - Problems (1) Chronic kidney disease Code(s): N18.9 - CHRONIC KIDNEY DISEASE, UNSPECIFIED (2) Diabetes Code(s): E11.9 - TYPE 2 DIABETES MELLITUS WITHOUT COMPLICATIONS (3) Dyspnea Code(s): R06.00 - DYSPNEA, UNSPECIFIED Assessment/Plan Problem List - Problems (1) COPD exacerbation Code(s): J44.1 - CHRONIC OBSTRUCTIVE PULMONARY DISEASE W (ACUTE) EXACERBATION (2) Pneumonia Code(s): J18.9 - PNEUMONIA, UNSPECIFIED ORGANISM (3) Hypertension Code(s): I10 - ESSENTIAL (PRIMARY) HYPERTENSION (4) Diabetes Code(s): E11.9 - TYPE 2 DIABETES MELLITUS WITHOUT COMPLICATIONS (5) Hypercholesterolemia Code(s): E78.00 - PURE HYPERCHOLESTEROLEMIA, UNSPECIFIED Assessment/Plan Acute COPD Exacerbation improving r/o Pneumonia/Aspiration HTN DM Hypercholesterolemia - Prednisone in am - inhaled bronchodilators standing and PRN - O2 to keep Spo2 >90 - DVT prophylaxis - EGD today DR SANABRIA
[2017-05-08] MEDS ORDERED: PROPOFOL 20 ML ONE ×2 (12:46)
[2017-05-08] MEDS ORDERED: MIDAZOLAM HCL 2 MG/2 ML SINGLE DOSE VIAL ONE (12:46)
[2017-05-08] MEDS ORDERED: LIDOCAINE HCL/PF 2% SDV 5ML VIAL ONE (12:47)
--- NOTE | 2017-05-08 12:50 | PN ---
Teaching Attending Note Name of Resident: Lyudmila Rasmussen ATTENDING PHYSICIAN STATEMENT I saw and evaluated the patient. I reviewed the resident's note and discussed the case with the resident. I agree with the resident's findings and plan as documented. SUBJECTIVE:breathing improved. continues to have epigastric pain. denies CP, SOB , fever, chills, N/V/C/D OBJECTIVE: Last Vital Signs Temp Pulse Resp BP Pulse Ox 97.8 F 94 H 18 180/89 94 L 05/08/17 10:00 05/08/17 11:45 05/08/17 10:00 05/08/17 10:00 05/08/17 11:45 General NAD Lungs CTA B/L no wheezing or crackles Abdomen soft +epigatric tenderness ND negative cuellar sign ASSESSMENT AND PLAN: 87yo F wtih PMH DM, HTN, CKD stage 3, CHF, and COPD presented to the ER with difficulty breathing and chest pain 1. Acute COPD exacerbation-improved. will decrase steroids to daily dosing. likely transition to po in the AM. check pre and post. on Azithromycin and Cefrtriaxone day 5. on inhalers and nebs. pulmonary on board. 2. Epigastric pain- possible duodenal ulcer. appreciate GI recommendations and plan to proceed with EGD today 3. Acute on CKD stage III- baseline Cr 2.6. FeNa <1%. slowly trending down. renal on board. workup sent out. will f/u labs. nephrology on board.hold nephrotoxic agents. no indication for HD 4. SDH- hx of fall. shows stable in size on repeat imaging. no deficits. neurosurgery on board. no intervention indicated at this time 5. Normocytic anemia- Hgb stable. iron studies pending. no indication for txn 6. CHF- no signs of volume overload. 7. DVT ppx- SCD 8. PT eval, d/c planning for the AM. notified daughter present at bedside. explained plan. all questions answered. verbalized understanding and agreement
[2017-05-08] MEDS ORDERED: TETRACAINE/BENZOCAINE/BUTAMBEN 20 GM SPR TP ONE (12:58)
--- NOTE | 2017-05-08 13:24 | PROC ---
Endoscopy Procedure Endoscopy procedure completed. Please see scanned procedure report. Mild gastritis in the antrum and esophagitis at the GEJ , otherwise normal exam. No biopsie staken. Avoid NSAIDs. Small dose PPI po qam
[2017-05-08] MEDS ORDERED: METOPROLOL TARTRATE 50 MG TABLET (FP) PO SCH (13:44)
--- NOTE | 2017-05-08 14:14 | PN ---
Progress Note, Physician History of Present Illness: Pt seen and examined at bedside. She is awake and alert. She is going for an endoscopy. - Current Medication List Current Medications: Active Medications Acetaminophen (Ofirmev Injection -) 1,000 mg IVPB Q6H PRN PRN Reason: PAIN LEVEL 1-5 Al Hydroxide/Mg Hydroxide (Mylanta Oral Suspension -) 30 ml PO Q6H PRN PRN Reason: DYSPEPSIA Last Admin: 05/04/17 18:47 Dose: 30 ml Albuterol Sulfate (Ventolin 0.083% Nebulizer Soln -) 1 amp NEB Q4H PRN PRN Reason: SHORT OF BREATH/WHEEZING Albuterol/Ipratropium (Duoneb -) 1 amp NEB RQID [facility] Last Admin: 05/08/17 11:17 Dose: 1 amp Amlodipine Besylate (Norvasc -) 10 mg PO DAILY [facility] Last Admin: 05/08/17 09:50 Dose: Not Given Budesonide/Formoterol Fumarate (Symbicort 160/4.5mcg -) 2 puff IH BID [facility] Last Admin: 05/08/17 10:35 Dose: 2 puff CEFTRIAXONE 1 G/50 ML PREMIX (Ceftriaxone 1 Gm-D5w Bag) 50 mls @ 100 mls/hr IVPB DAILY [facility] Last Admin: 05/08/17 10:34 Dose: 100 mls/hr Insulin Aspart (Novolog Vial Sliding Scale -) 1 vial SQ ACHS [facility] PRN Reason: Protocol Last Admin: 05/08/17 12:03 Dose: Not Given Methylprednisolone Sodium Succinate (Solu-Medrol -) 40 mg IVPUSH BID [facility] Stop: 05/08/17 23:00 Last Admin: 05/08/17 10:34 Dose: 40 mg Metoprolol Tartrate (Lopressor -) 75 mg PO BID [facility] Pantoprazole Sodium (Protonix Iv) 40 mg IVPUSH BID [facility] Last Admin: 05/08/17 10:35 Dose: 40 mg Prednisone (Deltasone -) 40 mg PO DAILY [facility] Pregabalin (Lyrica -) 75 mg PO HS [facility] Last Admin: 05/07/17 21:58 Dose: 75 mg Rosuvastatin Calcium (Crestor -) 20 mg PO HS [facility] Last Admin: 05/07/17 21:59 Dose: 20 mg Sevelamer Carbonate (Renvela -) 800 mg PO TIDCM [facility] Last Admin: 05/08/17 12:24 Dose: Not Given - Objective Vital Signs: Vital Signs Temperature 98.9 F 05/08/17 13:16 Pulse Rate 87 05/08/17 13:58 Respiratory Rate 20 05/08/17 13:58 Blood Pressure 157/72 05/08/17 13:58 O2 Sat by Pulse Oximetry (%) 100 05/08/17 13:58 Constitutional: Yes: Calm Eyes: Yes: Conjunctiva Clear HENT: Yes: Atraumatic Cardiovascular: Yes: S1, S2 Respiratory: Yes: On Nasal O2 Gastrointestinal: Yes: Soft Genitourinary: Yes: WNL Musculoskeletal: Yes: WNL Edema: No Neurological: Yes: Oriented Labs: CBC, BMP 05/08/17 05:05 05/08/17 05:05 INR, PTT INR 0.91 (0.82-1.09) 05/03/17 12:00 Problem List - Problems (1) COPD exacerbation Code(s): J44.1 - CHRONIC OBSTRUCTIVE PULMONARY DISEASE W (ACUTE) EXACERBATION (2) Chronic kidney disease Code(s): N18.9 - CHRONIC KIDNEY DISEASE, UNSPECIFIED (3) Diabetes Code(s): E11.9 - TYPE 2 DIABETES MELLITUS WITHOUT COMPLICATIONS (4) Hypertension Code(s): I10 - ESSENTIAL (PRIMARY) HYPERTENSION Assessment/Plan Current Medications Generic Name Dose Route Start Last Admin Trade Name Freq PRN Reason Stop Dose Admin Acetaminophen 1,000 mg 05/03/17 18:47 Ofirmev Injection - IVPB Q6H PRN PAIN LEVEL 1-5 Al Hydroxide/Mg Hydroxide 30 ml 05/03/17 18:53 05/04/17 18:47 Mylanta Oral Suspension - PO 30 ml Q6H PRN Administration DYSPEPSIA Albuterol Sulfate 1 amp 05/04/17 13:54 Ventolin 0.083% Nebulizer Soln - NEB Q4H PRN SHORT OF BREATH/WHEEZING Albuterol/Ipratropium 1 amp 05/04/17 16:00 05/08/17 11:17 Duoneb - NEB 1 amp RQID [facility] Administration Amlodipine Besylate 10 mg 05/04/17 10:00 05/08/17 09:50 Norvasc - PO Not Given DAILY [facility] Budesonide/Formoterol Fumarate 2 puff 05/03/17 22:00 05/08/17 10:35 Symbicort 160/4.5mcg - IH 2 puff BID [facility] Administration CEFTRIAXONE 1 G/50 ML PREMIX 50 mls @ 100 mls/hr 05/04/17 14:00 05/08/17 10: 34 Ceftriaxone 1 Gm-D5w Bag IVPB 100 mls/hr DAILY [facility] Administration Insulin Aspart 1 vial 05/03/17 22:00 05/08/17 12:03 Novolog Vial Sliding Scale - SQ Not Given ACHS [facility] Protocol Methylprednisolone Sodium Succinate 40 mg 05/07/17 22:00 05/08/17 10:34 Solu-Medrol - IVPUSH 05/08/17 23:00 40 mg BID [facility] Administration Metoprolol Tartrate 75 mg 05/08/17 13:44 Lopressor - PO BID [facility] Pantoprazole Sodium 40 mg 05/03/17 22:00 05/08/17 10:35 Protonix Iv IVPUSH 40 mg BID [facility] Administration Prednisone 40 mg 05/09/17 10:00 Deltasone - PO DAILY [facility] Pregabalin 75 mg 05/03/17 22:00 05/07/17 21:58 Lyrica - PO 75 mg HS [facility] Administration Rosuvastatin Calcium 20 mg 05/04/17 22:00 05/07/17 21:59 Crestor - PO 20 mg HS [facility] Administration Sevelamer Carbonate 800 mg 05/05/17 08:00 05/08/17 12:24 Renvela - PO Not Given TIDCM [facility] Laboratory Tests 05/06/17 06:30 JUAN DAVID Screen Pending c-ANCA Pending Proteinase 3 (PR3) Pending p-ANCA Pending Atypical p-ANCA Pending Myeloperoxidase Ab Pending Hepatitis A Ab Total Positive H Hep Bs Antigen Negative Hep Bs Antibody Reactive Hep B Core Total Ab Positive H Impression 1. CKD 2. HTN 3. HLD 4. COPD exacerbation 5. DM 6. 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
[2017-05-08 14:18] VITALS: PULSE 89
[2017-05-08] MEDS ORDERED: METOPROLOL TARTRATE 25 MG TABLET (FP) PO ONE (14:29)
[2017-05-08 15:09] VITALS: BP 153/85; TEMP 98.8
--- NOTE | 2017-05-08 15:12 | DS ---
Physical Exam: SUBJECTIVE: Patient seen and examined. No acute events overnight. Offers no new complaints. Says her abdominal pain has improved. Also says her breathing is better today but still has shortness of breath at times. She denies chest pain , dizziness, nausea, vomiting, fevers. OBJECTIVE: Vital Signs Period Temp Pulse Resp BP Sys/Betancourt Pulse Ox Last 24 Hr 97.8 F-98.9 F 74-94 18-21 152-180/72-89 92-100 PHYSICAL EXAM GENERAL: The patient is awake, alert, and fully oriented, in no acute distress. EYES: extraocular movements intact ENT:oropharynx clear without exudates, moist mucous membranes. NECK: supple. LUNGS: CTA b/l, no wheezing appreciated HEART: Regular rate and rhythm, S1, S2 without murmur, rub or gallop. ABDOMEN: NT, ND, positive bowel sounds EXTREMITIES: 2+ pulses, warm, well-perfused, no edema. NEUROLOGICAL: Cranial nerves II through XII grossly intact. Normal speech, gait not observed PSYCH: Normal mood, normal affect. LABS Laboratory Results - last 24 hr 05/06/17 05/07/17 05/07/17 06:30 16:15 21:32 WBC RBC Hgb Hct MCV MCH MCHC RDW Plt Count MPV PTT (Actin FS) Sodium Potassium Chloride Carbon Dioxide Anion Gap BUN Creatinine Creat Clearance w eGFR POC Glucometer 231 192 Random Glucose Calcium Total Bilirubin AST ALT Alkaline Phosphatase Total Protein Albumin Hep A IgM Ab Confirm Negative Hepatitis A Ab Total Positive H Hep Bs Antigen Negative Hep Bs Antibody Reactive Hep B Core Total Ab Positive H 05/08/17 05/08/17 05/08/17 05:05 05:05 05:05 WBC 8.4 RBC 3.84 Hgb 10.4 L Hct 31.4 L MCV 81.9 MCH 27.1 MCHC 33.1 RDW 15.5 Plt Count 292 MPV 9.9 PTT (Actin FS) 23.9 L Sodium 142 Potassium 4.1 Chloride 104 Carbon Dioxide 27 Anion Gap 11 BUN 66 H Creatinine 3.7 H Creat Clearance w eGFR 11.59 POC Glucometer Random Glucose 123 H Calcium 8.3 L Total Bilirubin 0.6 AST 11 L ALT 21 Alkaline Phosphatase 50 Total Protein 6.0 L Albumin 2.9 L Hep A IgM Ab Confirm Hepatitis A Ab Total Hep Bs Antigen Hep Bs Antibody Hep B Core Total Ab 05/08/17 05:44 WBC RBC Hgb Hct MCV MCH MCHC RDW Plt Count MPV PTT (Actin FS) Sodium Potassium Chloride Carbon Dioxide Anion Gap BUN Creatinine Creat Clearance w eGFR POC Glucometer 121 Random Glucose Calcium Total Bilirubin AST ALT Alkaline Phosphatase Total Protein Albumin Hep A IgM Ab Confirm Hepatitis A Ab Total Hep Bs Antigen Hep Bs Antibody Hep B Core Total Ab HOSPITAL COURSE: Date of Admission:05/03/17 87yo F wtih PMH DM, HTN, CKD stage 3, CHF, and COPD presented to the ER with difficulty breathing and chest pain and was found to have Acute COPD exacerbation and acute on chronic CKD. Trop negative x 3. Lower extremity duplex negative for dvt. Patient was also found to have SDH on Head CT and repeat showed bleed was stable. no deficits. neurosurgery consulted and no interventions indicated as per neuro. She was followed by Nephrology and Pulm. Patients baseline Cr is 2.6. Her creatinine slowly trended down during hospital stay. Patient was started on IV steroids and IV antibiotics (completed 5 days) . Patient underwent EGD for the chest/abdominal pain and was found to have gastritis/esophagitis. Patient's BP was slightly elevated. She will be discharged on Lopressor 50mg BID, Norvasc 10mg, and Hydralazine 10mg daily. She will also be discharged on a prednisone taper. Patient and family's questions answered. Family in agreement. Patient will follow up with PCP, nephrology and Pulm outpatient in 1 week for further management and care. Date of Discharge: 05/08/17 Minutes to complete discharge: 35 Discharge Summary Reason For Visit: DYSPNEA COPD Current Active Problems Abnormal CT of the abdomen (Acute) COPD exacerbation (Acute) Chronic kidney disease (Acute) Diabetes (Acute) Dyspnea (Acute) Epigastric abdominal pain (Acute) Hypercholesterolemia (Acute) Hypertension (Acute) Pneumonia (Acute) Condition: Stable - Instructions Diet, Activity, Other Instructions: You were at the hospital because of your COPD. You completed antibiotics in the hospital. You are being sent home on a steroid taper. Please follow taper below. Also take protonix while on steroids. this will reduce the risk of developing an ulcer. You have an EGD here to make sure you had no ulcers prior to leaving. You will need to use oxygen while exerting yourself. You will need 2 liters to maintain an oxygen level >20% Your kidney function was poor while in the hospital. It is important yo follow up with polisher and sander for results of workup here Your home medication has changed refer to medication list for these changes. Avoid taking and aspirin on NSAID like products while on steroids (this includes medications like aleive, ibuprofen, naproxen, etc) You will need to follow up with your Lung doctor in 1 week so for further management and testing. You will also need to follow up with your kidney doctor in 1 week. He will go over the lab results. Follow up with your primary care physician in 1 week. You will be discharged on steroids- Prednisone. Take 40mg (4 tablets) for 3 days (end 05/11) 30mg (3 tablets) for 3 days (end 05/14) 20mg (2 tablets) for 3 days (end 05/17) 10mg (1 tablet) for 3 days (end 05/20) If you start feeling short of breath, dizziness, chest pain, or fevers, please call your doctor or go to the nearest emergency department. Referrals: Zelda Reis MD [Staff Physician] - 1 Week Campos Kolb MD, MD [Staff Physician] - 1 Week Disposition: HOME - Home Medications Comprehensive Discharge Medication List: Ambulatory Orders Albuterol Sulfate Inhaler - [Ventolin HFA Inhaler -] 1 - 2 inh PO Q4H 05/03/17 Amlodipine Besylate [Norvasc -] 10 mg PO DAILY 05/03/17 Cyclosporine [Restasis] 1 each OP DAILY 05/03/17 Glipizide [Glipizide ER] 10 mg PO DAILY 05/03/17 Oxybutynin Chloride 5 mg PO DAILY 05/03/17 Pantoprazole Sodium [Protonix] 40 mg PO DAILY 05/03/17 Potassium Chloride [Klor-Con M20] 20 meq PO DAILY 05/03/17 Pregabalin [Lyrica] 75 mg PO HS 05/03/17 Rosuvastatin [Crestor -] 20 mg PO DAILY 05/03/17 Salmeterol/Fluticasone [Advair 100Mcg/50Mcg -] 1 inh PO BID 05/03/17 Tramadol HCl/Acetaminophen [Tramadol-Acetaminophn 37.5-325] 1 each PO PRN PRN Budesonide/Formeterol Fumarate [SYMBICORT 160/4.5mcg -] 2 puff IH BID #1 inhaler 05/08/17 Metoprolol Tartrate [Lopressor -] 50 mg PO BID #60 tablet 05/08/17 Sevelamer Carbonate [Renvela -] 800 mg PO TIDCM #90 tab 05/08/17 predniSONE [Deltasone -] See Taper PO ASDIR #30 tab 05/08/17 This patient is new to me today: No Emergency Visit: Yes ED Registration Date: 05/03/17 Care time: The patient presented to the Emergency Department on the above date and was hospitalized for further evaluation of their emergent condition. Critical Care patient: No - Discharge Referral Referred to [facility] No
[2017-05-09 00:07] LABS: ATYPICAL pANCA <1:20 titer (Neg:<1:20); C-ANCA <1:20 titer (Neg:<1:20); P-ANCA <1:20 titer (Neg:<1:20); PROTEINASE-3 ANTIBODY <3.5 U/mL (0.0-3.5)
[2017-05-09 06:06] LABS: SERUM IRON SATURATION 15 % (15-55); TOTAL IRON BINDING CAPACITY 279 ug/dL (250-450); TRANSFERRIN 250 mg/dL (200-370); UIBC 236 ug/dL (118-369)
[2017-05-09] MEDS ORDERED: predniSONE 20 MG TABLET (UD) PO SCH (10:00)
== END 2017-05-08 16:59 | disposition home or self-care (01) | DRG 193 ==
LOC: JER 11:11 → JERBED 17:52 → J4W 21:39
PROVIDERS: ADMIT Hospitalist; ATTEND Internal Medicine
PROC: 0DJ08ZZ Inspection of Upper Intestinal Tract, Via Natural or Artificial Opening Endoscopic (ICD-10-PCS; principal; 2017-05-08 14:45)
DX: J18.9 Pneumonia, unspecified organism (principal); I62.01 Nontraumatic acute subdural hemorrhage; J44.1 Chronic obstructive pulmonary disease with (acute) exacerbation; N17.9 Acute kidney failure, unspecified; I13.0 Hypertensive heart and chronic kidney disease with heart failure and stage 1 through stage 4 chronic kidney disease, or unspecified chronic kidney disease; J45.901 Unspecified asthma with (acute) exacerbation; J98.11 Atelectasis; R00.0 Tachycardia, unspecified; E78.5 Hyperlipidemia, unspecified; E11.22 Type 2 diabetes mellitus with diabetic chronic kidney disease; N18.3 Chronic kidney disease, stage 3 (moderate); I50.9 Heart failure, unspecified; K29.70 Gastritis, unspecified, without bleeding; K20.9 Esophagitis, unspecified; D64.9 Anemia, unspecified
CPT/HCPCS: 36415; 70450-TC; 71045-TC-FY; 71101-TC-RT-FY; 71250-TC; 74176-TC; 76705-TC; 76775-TC; 76856-TC; 80048; 80053; 81003; 81015; 82043; 82310; 82436; 82550; 82553; 82570; 82728; 82803; 82962; 83036; 83520; 83540; 83550; 83605; 83690; 83735; 83880; 83970; 84100; 84133; 84156; 84300; 84466; 84484; 85025; 85027; 85610; 85730; 86038; 86256; 86704; 86706; 86708; 86850; 86900; 86901; 87040; 87086; 87340; 87804; 93005; 93010; 93970-TC; 94640; 94761; 97116-GP; 97161-GP; 99285-25

== ENCOUNTER 2017-10-08 17:45 | Observation (INO) | payer OTHER ==
[2017-10-08 18:06] VITALS: BMI 24.0
--- NOTE | 2017-10-08 18:36 | PDOC ---
History of Present Illness - General History Source: Patient, Family Exam Limitations: No Limitations - History of Present Illness Initial Comments: 10/08/17 20:34 The patient is an 87-year-old female, with a past medical history of asthma, COPD (on O2 at home), HTN, kidney stones, kidney disease, and frequent UTIs, who presents to the ED with a few days of epigastric pain and constipation. Daughter is at bedside and reports that the patient was recently seen by her PCP for her symptoms and was started on Linzess. Patient reports to the ED for further evaluation because she had 4 episodes of melena today. The patient denies any fever, chills, nausea, or vomiting. Denies any chest pain. Denies any urinary symptoms. Allergies: NKA Social History: Former smoker. Surgical History: None reported. <Anel Walker - Last Filed: 10/08/17 20:43> <Megan Bella - Last Filed: 10/09/17 00:33> - General Chief Complaint: Rectal Bleed Stated Complaint: RECTAL BLEED Time Seen by Provider: 10/08/17 18:35 Past History <Anel Walker - Last Filed: 10/08/17 20:43> - Past Medical History Asthma: Yes COPD: Yes Diabetes: Yes HTN: Yes Kidney Stones: Yes Other medical history: kidney disease, UTI - Immunization History Immunization Up to Date: Yes - Suicide/Smoking/Psychosocial Hx Smoking History: Former smoker Have you smoked in the past 12 months: No Information on smoking cessation initiated: No Hx Alcohol Use: No Drug/Substance Use Hx: No Substance Use Type: None Hx Substance Use Treatment: No <Megan Bella - Last Filed: 10/09/17 00:33> - Past Medical History Allergies/Adverse Reactions: Allergies Allergy/AdvReac Type Severity Reaction Status Date / Time No Known Allergies Allergy Verified 10/08/17 17:57 Home Medications: Ambulatory Orders Albuterol Sulfate Inhaler - [Ventolin HFA Inhaler -] 1 - 2 inh PO Q4H 05/03/17 Amlodipine Besylate [Norvasc -] 10 mg PO DAILY 05/03/17 Cyclosporine [Restasis] 1 each OP DAILY 05/03/17 Glipizide [Glipizide ER] 10 mg PO DAILY 05/03/17 Oxybutynin Chloride 5 mg PO DAILY 05/03/17 Pantoprazole Sodium [Protonix] 40 mg PO DAILY 05/03/17 Potassium Chloride [Klor-Con M20] 20 meq PO DAILY 05/03/17 Pregabalin [Lyrica] 75 mg PO HS 05/03/17 Rosuvastatin [Crestor -] 20 mg PO DAILY 05/03/17 Salmeterol/Fluticasone [Advair 100Mcg/50Mcg -] 1 inh PO BID 05/03/17 Tramadol HCl/Acetaminophen [Tramadol-Acetaminophn 37.5-325] 1 each PO PRN PRN Hydralazine HCl 10 mg PO DAILY #30 tablet 05/08/17 Metoprolol Tartrate [Lopressor -] 50 mg PO BID #60 tablet 05/08/17 Sevelamer Carbonate [Renvela -] 800 mg PO TIDCM #90 tab 05/08/17 predniSONE [Deltasone -] See Taper PO ASDIR #30 tab 05/08/17 Review of Systems - Review of Systems Able to Perform ROS?: Yes Comments:: 10/08/17 20:44 GENERAL/CONSTITUTIONAL: No fever or chills. No weakness. HEAD, EYES, EARS, NOSE AND THROAT: No change in vision. No ear pain or discharge. No sore throat. CARDIOVASCULAR: No chest pain or shortness of breath. RESPIRATORY: No cough, wheezing, or hemoptysis. GASTROINTESTINAL: (+)abdominal pain, constipation, melena. No nausea, vomiting, diarrhea. GENITOURINARY: No dysuria, frequency, or change in urination. MUSCULOSKELETAL: No joint or muscle swelling or pain. No neck or back pain. SKIN: No rash NEUROLOGIC: No headache, vertigo, loss of consciousness, or change in strength/ sensation. ENDOCRINE: No increased thirst. No abnormal weight change. HEMATOLOGIC/LYMPHATIC: No anemia, easy bleeding, or history of blood clots. ALLERGIC/IMMUNOLOGIC: No hives or skin allergy. <Anel Walker - Last Filed: 10/08/17 20:43> *Physical Exam - Vital Signs Last Vital Signs Temp Pulse Resp BP Pulse Ox 99.1 F 87 22 160/71 100 10/08/17 17:57 10/08/17 17:57 10/08/17 17:57 10/08/17 17:57 10/08/17 17:57 - Physical Exam Comments: 10/08/17 20:48 GENERAL: Awake, alert, and fully oriented, in no acute distress HEAD: No signs of trauma EYES: PERRLA, EOMI, sclera anicteric, conjunctiva clear ENT: Auricles normal inspection, hearing grossly normal, nares patent, oropharynx clear without exudates. Moist mucosa NECK: Normal ROM, supple, no lymphadenopathy, JVD, or masses LUNGS: Breath sounds equal, clear to auscultation bilaterally. No wheezes, and no crackles HEART: Regular rate and rhythm, normal S1 and S2, no murmurs, rubs or gallops ABDOMEN: (+)Epigastric tenderness to palpation. Soft, normoactive bowel sounds. No guarding, no rebound. No masses EXTREMITIES: Normal range of motion, no edema. No clubbing or cyanosis. No cords, erythema, or tenderness NEUROLOGICAL: Cranial nerves II through XII grossly intact. Normal speech, normal gait SKIN: Warm, Dry, normal turgor, no rashes or lesions noted. <Anel Walker - Last Filed: 10/08/17 20:43> - Vital Signs Last Vital Signs Temp Pulse Resp BP Pulse Ox 99.1 F 87 22 160/71 100 10/08/17 17:57 10/08/17 17:57 10/08/17 17:57 10/08/17 17:57 10/08/17 17:57 <Megan Bella - Last Filed: 10/09/17 00:33> Heart Score/ECG Review - ECG Intrepretation Comment:: 10/08/17 21:35 sinus at 87, 1st degree av block, nl axis, no acute st/t wave findings, q waves septally that are age indeterminate <Megan Bella - Last Filed: 10/09/17 00:33> ED Treatment Course - LABORATORY CBC & Chemistry Diagram: 10/08/17 20:30 10/08/17 20:30 <Megan Bella - Last Filed: 10/09/17 00:33> Medical Decision Making - Medical Decision Making 10/08/17 21:31 a/p: 87yo Creole speaking female presents with her daughters for eval of 4 episdes of melena today -pt with crampy epigastric pain x 2 weeks -saw her PMD yesterday who started Linzess -today with 4 episodes of melena -no n/v -no cp/sob -no blood thinners -will send labs, ekg, cxr, stool for heme -will start ivf hydration -will give protonix 10/09/17 00:31 ct shows small pericardial effusion gastric inflamm secondary to pud vs infection emphysema small r inguinal hernia that contains small bowel without bowel obstruction case discussed with [facility] who accepts pt to service consult placed to GI pt with 4 episodes of melena earlier today will keep in obs for pud/gi bleed to trend h/h <Megan Bella - Last Filed: 10/09/17 00:33> *DC/Admit/Observation/Transfer - Attestations Scribe Attestion: 10/08/17 20:49 Documentation prepared by Anel Walker, acting as medical assembly for Megan Bella DO. <Anel Walker - Last Filed: 10/08/17 20:43> - Discharge Dispostion Decision to Admit order: Yes - Attestations Physician Attestion: 10/09/17 00:30 I, Dr. Megan Bella DO, attest that this document has been prepared under my direction and personally reviewed by me in its entirety. I further attest, that it accurately reflects all work, treatment, procedures and medical decision -making performed by me. <Megan Bella - Last Filed: 10/09/17 00:33> Diagnosis at time of Disposition: Epigastric abdominal pain, GIB (gastrointestinal bleeding) - Discharge Dispostion Condition at time of disposition: Fair
[2017-10-08] MEDS ORDERED: SODIUM CHLORIDE 0.9% 1000 ML INFUS.BAG IV ONE (19:57)
[2017-10-08] MEDS ORDERED: PANTOPRAZOLE SODIUM 40 MG VIAL IVPUSH ONE (19:57)
[2017-10-08] MEDS ORDERED: PANTOPRAZOLE SODIUM 40 MG/100 ML BAG IVPB ONE (20:59)
[2017-10-08 21:11] LABS: BASO % 0.4 % (0-2.0); EOS % 1.9 % (0-4.5); HEMATOCRIT 30.3 % (32.4-45.2); HEMOGLOBIN 9.9 GM/dL (10.7-15.3); LYMPH % 24.9 % (8-40); MCH 25.9 pg (25.7-33.7); MCHC 32.6 g/dl (32.0-36.0); MEAN CELL VOLUME 79.5 fl (80-96); MEAN PLT VOLUME 8.8 fl (7.5-11.1); MONO % 8.9 % (3.8-10.2); NEUT % 63.9 % (42.8-82.8); PLATELET COUNT 220 K/MM3 (134-434); RBC 3.82 M/mm3 (3.60-5.2); RDW 16.4 % (11.6-15.6); WHITE BLOOD COUNT 5.1 K/mm3 (4.0-10.0)
[2017-10-08 21:20] LABS: URINE APPEARANCE CLEAR; URINE BILIRUBIN NEGATIVE (<2.0 mg/dL); URINE COLOR COLORLESS; URINE GLUCOSE (UA) NEGATIVE (NEGATIVE); URINE KETONE NEGATIVE (NEGATIVE); URINE LEUK ESTERASE NEGATIVE (NEGATIVE); URINE NITRITE NEGATIVE (NEGATIVE); URINE UROBILINOGEN NEGATIVE mg/dL (0.2-1.0)
[2017-10-08 21:23] LABS: INR 0.86 (0.83-1.09); PROTHROMBIN TIME (PATIENT) 9.7 SEC (9.7-13.0)
[2017-10-08 21:24] LABS: URINE PROTEIN 2+ (NEGATIVE)
[2017-10-08 21:26] LABS: ACTIVATED PTT 34.1 SECONDS (25.2-36.5)
[2017-10-08 21:29] LABS: EPI CELLS RARE /HPF (FEW)
[2017-10-08 21:30] LABS: ALBUMIN 4.2 g/dl (3.4-5.0); ANION GAP 11 (8-16); BILIRUBIN,TOTAL 0.9 mg/dL (0.2-1.0); BLOOD UREA NITROGEN 37 mg/dL (7-18); CALCIUM 9.4 mg/dL (8.5-10.1); CHLORIDE 105 mmol/L (98-107); CO2 29 mmol/L (21-32); CREATININE 4.9 mg/dL (0.55-1.02); GLUCOSE,RANDOM 98 mg/dL (74-106); MAGNESIUM 2.4 mg/dL (1.8-2.4); POTASSIUM 3.7 mmol/L (3.5-5.1); SGOT/AST 22 U/L (15-37); SGPT/ALT 21 U/L (12-78); SODIUM 145 mmol/L (136-145); TOT PROT 7.4 g/dl (6.4-8.2)
[2017-10-08 21:33] LABS: ALK PHOS 56 U/L (45-117); LIPASE 217 U/L (73-393)
[2017-10-08] MEDS ORDERED: ACETAMINOPHEN 1000 MG/100 ML VIAL (NON FORMULARY) IVPB ONE (22:00)
[2017-10-09] MEDS ORDERED: MAG HYDROX/AL HYDROX/SIMETH 30 ML UNIT-DOSE CUP PO ONE (00:15)
[2017-10-09] MEDS: SODIUM CHLORIDE 1,000 ML IV SCH ×2 (00:30→23:24)
[2017-10-09] MEDS ORDERED: MAG HYDROX/AL HYDROX/SIMETH 30 ML UNIT-DOSE CUP ONE (00:36)
[2017-10-09] MEDS ORDERED: ALBUTEROL SO4 8 GM HFA INHALER IH SCH (00:45)
[2017-10-09] MEDS ORDERED: ALBUTEROL SO4 8 GM HFA INHALER IH PRN (00:50)
[2017-10-09] MEDS ORDERED: morphine CARPU-JECT 2 MG/1 ML DISP.SYRIN IVPUSH ONE (01:43)
[2017-10-09] MEDS ORDERED: MORPHINE SULFATE 2 MG/ML VIAL ONE (02:08)
--- NOTE | 2017-10-09 03:20 | HP ---
CHIEF COMPLAINT: abdominal pain HISTORY OF PRESENT ILLNESS: 87 year old creole-speaking female with a hx of COPD (2L O2 at home), asthma, hypertension, CHF, renal stones, CKD presented to the hospital for several day history of epigastric abdominal pain. Her daughter reports that she has had a crampy, diffuse pain located mainly in the epigastrum. She was brought to the emergency room for 4 episodes of dark stools. The daughter states that she herself did not see the stools, but the patient only told her after they occurred. Denies any known inciting factors. Currently the patient denies any abdominal pain, chest pain, shortness of breath, nausea, vomiting, diarrhea, fevers, chills, dysuria. Patient saw her PCP recently who prescribed her Linzess , which is the only new medication she has recently gotten. Denies recent travel or sick contacts. Patient had EGD on 05/08/17 Mild gastritis in the antrum and esophagitis at the [facility] , otherwise normal exam. No biopsies Recent Travel: denies PAST MEDICAL HISTORY: COPD (2L O2 at home), asthma, hypertension, renal stones, CKD PAST SURGICAL HISTORY: Social History: Smoking: former smoker Alcohol: denies Drugs: denies Family History: unknown Allergies No Known Allergies Allergy (Verified 10/08/17 17:57) HOME MEDICATIONS: Home Medications Medication Instructions Recorded Albuterol Sulfate Inhaler - 1 - 2 inh PO Q4H 05/03/17 [Ventolin HFA Inhaler -] Amlodipine Besylate [Norvasc -] 10 mg PO DAILY 05/03/17 Cyclosporine [Restasis] 1 each OP DAILY 05/03/17 Glipizide [Glipizide ER] 10 mg PO DAILY 05/03/17 Oxybutynin Chloride 5 mg PO DAILY 05/03/17 Pantoprazole Sodium [Protonix] 40 mg PO DAILY 05/03/17 Potassium Chloride [Klor-Con M20] 20 meq PO DAILY 05/03/17 Pregabalin [Lyrica] 75 mg PO HS 05/03/17 Rosuvastatin [Crestor -] 20 mg PO DAILY 05/03/17 Salmeterol/Fluticasone [Advair 1 inh PO BID 05/03/17 100Mcg/50Mcg -] Tramadol HCl/Acetaminophen 1 each PO PRN PRN 05/03/17 [Tramadol-Acetaminophn 37.5-325] Hydralazine HCl 10 mg PO DAILY #30 tablet 05/08/17 Metoprolol Tartrate [Lopressor -] 50 mg PO BID #60 tablet 05/08/17 Sevelamer Carbonate [Renvela -] 800 mg PO TIDCM #90 tab 05/08/17 predniSONE [Deltasone -] See Taper PO ASDIR #30 tab 05/08/17 REVIEW OF SYSTEMS CONSTITUTIONAL: Absent: fever, chills, diaphoresis, generalized weakness, malaise, loss of appetite, weight change HEENT: Absent: rhinorrhea, nasal congestion, throat pain, throat swelling, difficulty swallowing, mouth swelling, ear pain, eye pain, visual changes CARDIOVASCULAR: Absent: chest pain, syncope, palpitations, irregular heart rate, lightheadedness , peripheral edema RESPIRATORY: Absent: cough, shortness of breath, dyspnea with exertion, orthopnea, wheezing, stridor, hemoptysis GASTROINTESTINAL: Absent: abdominal pain, abdominal distension, nausea, vomiting, diarrhea, constipation, melena, hematochezia GENITOURINARY: Absent: dysuria, frequency, urgency, hesitancy, hematuria, flank pain, genital pain MUSCULOSKELETAL: Absent: myalgia, arthralgia, joint swelling, back pain, neck pain SKIN: Absent: rash, itching, pallor HEMATOLOGIC/IMMUNOLOGIC: Absent: easy bleeding, easy bruising, lymphadenopathy, frequent infections ENDOCRINE: Absent: unexplained weight gain, unexplained weight loss, heat intolerance, cold intolerance NEUROLOGIC: Absent: headache, focal weakness or paresthesias, dizziness, unsteady gait, seizure, mental status changes, bladder or bowel incontinence PSYCHIATRIC: Absent: anxiety, depression, suicidal or homicidal ideation, hallucinations. PHYSICAL EXAMINATION Vital Signs - 24 hr 10/08/17 10/09/17 17:57 01:39 Temperature 99.1 F 97.5 F L Pulse Rate 87 Pulse Rate [ 87 Right Radial] Respiratory 22 24 Rate Blood Pressure 160/71 Blood Pressure 162/94 [Left Arm] O2 Sat by Pulse 100 99 Oximetry (%) GENERAL: A&Ox3, no acute distress EYES: PERRLA, EOMI ENT: Dry mucus membranes NECK: No JVD LUNGS: CTA, no wheezes HEART: RRR, no murmurs ABDOMEN: Soft, nontender, BS present MUSCULOSKELETAL: No CVA Tenderness EXTREMITIES: 2+ pulses, no edema. NEUROLOGICAL: Cranial nerves II-XII intact. Laboratory Results - last 24 hr 10/08/17 10/08/17 10/08/17 20:30 20:30 20:30 WBC RBC Hgb Hct MCV MCH MCHC RDW Plt Count MPV Absolute Neuts (auto) Neutrophils % Lymphocytes % Monocytes % Eosinophils % Basophils % Nucleated RBC % PT with INR 9.70 INR 0.86 PTT (Actin FS) 34.1 Sodium 145 Potassium 3.7 Chloride 105 Carbon Dioxide 29 Anion Gap 11 BUN 37 H Creatinine 4.9 H Creat Clearance w eGFR 8.38 Random Glucose 98 Lactic Acid Calcium 9.4 Magnesium 2.4 Total Bilirubin 0.9 AST 22 ALT 21 Alkaline Phosphatase 56 Creatine Kinase 228 H Creatine Kinase Index 0.6 CK-MB (CK-2) 1.46 Troponin I < 0.02 Total Protein 7.4 Albumin 4.2 Lipase 217 Urine Color Colorless Urine Appearance Clear Urine pH 7.0 Ur Specific Olcott 1.005 Urine Protein 2+ H Urine Glucose (UA) Negative Urine Ketones Negative Urine Blood Negative Urine Nitrite Negative Urine Bilirubin Negative Urine Urobilinogen Negative Ur Leukocyte Esterase Negative Urine WBC (Auto) 1 Urine RBC (Auto) None Ur Epithelial Cells Rare Stool Occult Blood Blood Type Antibody Screen 10/08/17 10/08/17 10/08/17 20:30 20:30 20:30 WBC 5.1 RBC 3.82 Hgb 9.9 L Hct 30.3 L MCV 79.5 L MCH 25.9 MCHC 32.6 RDW 16.4 H Plt Count 220 D MPV 8.8 D Absolute Neuts (auto) 3.3 Neutrophils % 63.9 D Lymphocytes % 24.9 D Monocytes % 8.9 D Eosinophils % 1.9 D Basophils % 0.4 D Nucleated RBC % 0 PT with INR INR PTT (Actin FS) Sodium Potassium Chloride Carbon Dioxide Anion Gap BUN Creatinine Creat Clearance w eGFR Random Glucose Lactic Acid 0.4 Calcium Magnesium Total Bilirubin AST ALT Alkaline Phosphatase Creatine Kinase Creatine Kinase Index CK-MB (CK-2) Troponin I Total Protein Albumin Lipase Urine Color Urine Appearance Urine pH Ur Specific Olcott Urine Protein Urine Glucose (UA) Urine Ketones Urine Blood Urine Nitrite Urine Bilirubin Urine Urobilinogen Ur Leukocyte Esterase Urine WBC (Auto) Urine RBC (Auto) Ur Epithelial Cells Stool Occult Blood Blood Type A POSITIVE Antibody Screen Negative 10/08/17 21:00 WBC RBC Hgb Hct MCV MCH MCHC RDW Plt Count MPV Absolute Neuts (auto) Neutrophils % Lymphocytes % Monocytes % Eosinophils % Basophils % Nucleated RBC % PT with INR INR PTT (Actin FS) Sodium Potassium Chloride Carbon Dioxide Anion Gap BUN Creatinine Creat Clearance w eGFR Random Glucose Lactic Acid Calcium Magnesium Total Bilirubin AST ALT Alkaline Phosphatase Creatine Kinase Creatine Kinase Index CK-MB (CK-2) Troponin I Total Protein Albumin Lipase Urine Color Urine Appearance Urine pH Ur Specific Olcott Urine Protein Urine Glucose (UA) Urine Ketones Urine Blood Urine Nitrite Urine Bilirubin Urine Urobilinogen Ur Leukocyte Esterase Urine WBC (Auto) Urine RBC (Auto) Ur Epithelial Cells Stool Occult Blood Negative Blood Type Antibody Screen ASSESSMENT/PLAN: 87 year old female with a hx of COPD (2L O2 at home), asthma, hypertension, CHF , renal stones, CKD presented to the hospital with epigastric abdominal pain and dark stools #Epigastric Abdominal Pain: resolved currently during exam, daughter reports latest BM being dark brown - likely 2/2 PUD or GERD vs infection -lipase wnl -recent EGD was done: Mild gastritis in the antrum and esophagitis at the [facility] , otherwise normal exam. No biopsies -CT abdomen pelvis shows 1.7cm thick pericardial effusion and gastric inflammation, R inguinal -FOBT negative -GI consulted -will observe H&H overnight -may need new EGD/Colonoscopy -protonix 40mg daily #Anemia: stable, hgb is at current baseline -monitor H&H, transfuse if hgb < 7 #LUCY on CKD: cre 4.9, which is slightly elevated from baseline -monitor BUN/Cre -fluids -continue lasix -hold valsartan due to kidney function #CHF: chronic -continue lasix #DM: chronic -ISS -BGMs #COPD: chronic -Advair, albuterol, trelegy #Hypertension -cont home metoprolol XL 50 #Hyperlipidemia: stable -continue rosuvastatin #FEN -NS @ 75cc/hr -replete lytes in AM -diabetic diet #Prophylaxis -SCDs #Disposition -admit obs Visit type - Emergency Visit Emergency Visit: Yes ED Registration Date: 10/09/17 Care time: The patient presented to the Emergency Department on the above date and was hospitalized for further evaluation of their emergent condition. - New Patient This patient is new to me today: Yes Date on this admission: 10/09/17 - Critical Care Critical Care patient: No Hospitalist Screening - Colonoscopy Questionnaire Colonoscopy Questionnaire: Colonoscopy Questionnaire - Patient: 50 - 75 years old and never had a screening colonoscopy: Unknown History of colon or rectal polyps, or CA: Unknown History of IBD, Crohn's disease or UC: Unknown History of abdominal radiation therapy as a child: Unknown - Relative: 1 with colon or rectal CA, or polyps at age 60 or younger: Unknown Colon or rectal CA diagnosed at age 45 or younger: Unknown Multiple relatives with colon or rectal CA: Unknown - Outcome: Screening Result: Negative Screen
--- NOTE | 2017-10-09 03:22 | PN ---
Teaching Attending Note Name of Resident: Mayco Stock ATTENDING PHYSICIAN STATEMENT I saw and evaluated the patient. Chart, data, imaging reviewed. I reviewed the resident's note and discussed the case with the resident. I agree with the resident's findings and plan as documented. SUBJECTIVE: 87-year-old woman with a past medical history of asthma, COPD (on O2 at home), HTN, kidney stones, kidney disease who was brought in by daughter to hospital because of 4 dark BMs on 10/08 which were concerning for melena. Patient w/ constipation previously, prescribed Linzess by PCP. FOBT neg in ER. Recent egd with only mild gastritis. As per daughter, recent colonoscopy which showed polyps. OBJECTIVE: Last Vital Signs Temp Pulse Resp BP Pulse Ox 97.5 F L 87 24 162/94 99 10/09/17 01:39 10/09/17 01:39 10/09/17 01:39 10/09/17 01:39 10/09/17 01:39 General- nad, nontoxic appearing heent- moist oral mucosa neck - no jvd cv -s1+s2+rrr chest w/ b/l breath sounds abdomen -mild periumbilical tenderness appreciated ext no pedal edema Abnormal Lab Results 10/08/17 10/08/17 10/08/17 20:30 20:30 20:30 Hgb 9.9 L Hct 30.3 L MCV 79.5 L RDW 16.4 H BUN 37 H Creatinine 4.9 H Creatine Kinase 228 H Urine Protein 2+ H ASSESSMENT AND PLAN: 87yo woman with gastritis. FOBT neg so do not suspect GI bleed at this time. H, H stable. -observation -monitor h,h -protonix -avoid NSAIDs -restart home meds -SCDs for dvt ppx
[2017-10-09] MEDS ORDERED: LEVALBUTEROL HCL 1.25 MG IH SCH (04:45)
[2017-10-09] MEDS ORDERED: [UNRECOGNIZED DRUG - OTHER] PO SCH (06:00)
[2017-10-09] MEDS: INSULIN SLIDING SCALE (NOVOLOG) 1 VIAL SQ SCH ×5 (06:50→23:22)
[2017-10-09 07:20] LABS: HEMATOCRIT 29.4 % (32.4-45.2); HEMOGLOBIN 9.7 GM/dL (10.7-15.3); MCH 26.7 pg (25.7-33.7); MCHC 33.1 g/dl (32.0-36.0); MEAN CELL VOLUME 80.6 fl (80-96); MEAN PLT VOLUME 8.6 fl (7.5-11.1); PLATELET COUNT 212 K/MM3 (134-434); RBC 3.64 M/mm3 (3.60-5.2); RDW 16.5 % (11.6-15.6); WHITE BLOOD COUNT 5.8 K/mm3 (4.0-10.0)
[2017-10-09 08:38] LABS: CHLORIDE 108 mmol/L (98-107); POTASSIUM 3.7 mmol/L (3.5-5.1); SODIUM 147 mmol/L (136-145)
[2017-10-09 08:44] LABS: ANION GAP 9 (8-16); BLOOD UREA NITROGEN 34 mg/dL (7-18); CALCIUM 9.4 mg/dL (8.5-10.1); CO2 30 mmol/L (21-32); CREATININE 4.3 mg/dL (0.55-1.02); GLUCOSE,RANDOM 100 mg/dL (74-106); MAGNESIUM 2.6 mg/dL (1.8-2.4)
[2017-10-09] MEDS: ISOSORBIDE DINITRATE 20 MG TABLET (FP) PO SCH ×3 (09:53→17:51)
[2017-10-09] MEDS: hydrALAZINE HCL 25 MG TABLET (FP) PO SCH ×3 (09:53→17:51)
[2017-10-09] MEDS: OXYBUTYNIN CHLORIDE 5 MG TABLET PO SCH (09:54)
[2017-10-09] MEDS: amLODIPine BESYLATE 10 MG TABLET (FP) PO SCH (09:55)
[2017-10-09] MEDS: FUROSEMIDE 40 MG TABLET (FP) PO SCH (09:55)
[2017-10-09] MEDS: PANTOPRAZOLE 40 MG TABLET (FP) PO SCH (09:55)
[2017-10-09] MEDS: FLUTICASONE/SALMETEROL 100 MCG/50 MCG DISKUS IH SCH ×2 (09:56→23:18)
[2017-10-09] MEDS ORDERED: POTASSIUM CHLORIDE TABS 20 MEQ TABLET.ER (FP) PO SCH (10:00)
[2017-10-09] MEDS ORDERED: hydrALAZINE HCL 10 MG TABLET PO SCH (10:00)
[2017-10-09] MEDS ORDERED: VALSARTAN 160 MG TABLET (UD) PO SCH (10:00)
[2017-10-09] MEDS ORDERED: PATIENT'S OWN MEDICATION (NON-FORMULARY) (Cyclosporine [Restasis] 1 EACH) OP SCH ×2 (10:00)
[2017-10-09] MEDS ORDERED: METOPROLOL TARTRATE 50 MG TABLET (FP) PO SCH (10:00)
[2017-10-09] MEDS ORDERED: PANTOPRAZOLE 40 MG TABLET (FP) PO SCH (10:00)
[2017-10-09] MEDS ORDERED: amLODIPine BESYLATE 10 MG TABLET (FP) PO SCH (10:00)
--- NOTE | 2017-10-09 14:12 | ECHO ---
Name: BRIAN ONEILL Exam:Adult Echocardiogram Study Date: 10/09/2017 11:02 AM Age: 87 yrs Reason For Study: PERICARDIAL EFFUSION Height: 64 in Weight: 140 lb BSA: 1.7 m2 MMode/2D Measurements & Calculations IVSd: 1.0 cm Ao root diam: 2.7 cm LVIDd: 4.3 cm LA dimension: 3.8 cm LVIDs: 3.3 cm LVPWd: 1.0 cm EDV(Teich): 84.2 ml TAPSE: 3.3 cm ESV(Teich): 44.6 ml RV S Edinson: 11.9 cm/sec Doppler Measurements & Calculations MV E max edinson: 49.4 cm/sec TR max edinson: 274.7 cm/sec MV A max edinson: 103.2 cm/sec TR max P.3 mmHg MV E/A: 0.48 Med Peak E' Edinson: 3.8 cm/sec Med E/e': 13.1 Lat Peak E' Edinson: 3.1 cm/sec Lat E/e': 15.9 Procedure A complete two-dimensional transthoracic echocardiogram was performed (2D, M-mode, Doppler and color flow Doppler). Left Ventricle The left ventricular size, thickness and function are normal. Ejection Fraction = 60-65%. The left ve ntricular wall motion is normal. Right Ventricle The right ventricle is normal in size and function. Atria Normal left and right atrial size and function. Mitral Valve There is no mitral regurgitation noted. Tricuspid Valve There is mild tricuspid regurgitation. Right ventricular systolic pressure is normal. Aortic Valve No hemodynamically significant valvular aortic stenosis. No aortic regurgitation is present. Pulmonic Valve There is no pulmonic valvular regurgitation. Great Vessels The aortic root is normal size. Pericardium/Pleura Small pericardial effusion (<1cm). There are no echocardiographic indications of cardiac tamponade. Interpretation Summary The left ventricular size, thickness and function are normal. The right ventricle is normal in size and function. There is mild tricuspid regurgitation. Small pericardial effusion (<1cm). There are no echocardiographic indications of cardiac tamponade. MD Go Skinner 10/09/2017 02:11 PM
--- NOTE | 2017-10-09 14:18 | CON.GI ---
Consult Consult Specialty:: GI Reason for Consultation:: epigastric pain, back pain , constipation - History of Present Illness History of Present Illness: Chart reviewed. Events and ED records noted. The pt is known to gi service from prior admission where GI was called for the same. History obtained with help from pt's bartolo Per initial intake: 87 year old creole-speaking female with a hx of COPD (2L O2 at home), asthma, hypertension, CHF, renal stones, CKD presented to the hospital for several day history of epigastric abdominal pain. Her daughter reports that she has had a crampy, diffuse pain located mainly in the epigastrum. She was brought to the emergency room for 4 episodes of dark stools. The daughter states that she herself did not see the stools, but the patient only told her after they occurred. Denies any known inciting factors. Currently the patient denies any abdominal pain, chest pain, shortness of breath , nausea, vomiting, diarrhea, fevers, chills, dysuria. Patient saw her PCP recently who prescribed her Linzess, which is the only new medication she has recently gotten. Denies recent travel or sick contacts. Patient had EGD on 05/08/17. Mild gastritis in the antrum and esophagitis at the GEJ , otherwise normal exam. No biopsies At the time of this encounter in ED, the pt c/o RUQ pain, chich is chronic. No BMs x 12 days until yesterday when she had a large bm after taking a dose of laxative. No melena, hematochezia, nausea, or vomiting, no fever, chills, or jaundice reported. The RUQ pain is chronic and occurs in conjunction with back pain, per pt's daughter. CT, again, reports thickened gastric wall which is more prominent now. Pt was tolerating regular diet while in ED, per pt's nurse. - History Source History Provided By: Patient, Family Member, Medical Record - Past Medical History Cardio/Vascular: Yes: HTN Pulmonary: Yes: COPD Renal/: Yes: Renal Calculi (maybe- she had flank pain) Endocrine: Yes: Diabetes Mellitus - Alcohol/Substance Use Hx Alcohol Use: No - Smoking History Smoking history: Former smoker Have you smoked in the past 12 months: No Home Medications - Allergies Allergies/Adverse Reactions: Allergies Allergy/AdvReac Type Severity Reaction Status Date / Time No Known Allergies Allergy Verified 10/08/17 17:57 - Home Medications Home Medications: Ambulatory Orders Albuterol Sulfate Inhaler - [Ventolin HFA Inhaler -] 1 - 2 inh PO Q6H 05/03/17 Amlodipine Besylate [Norvasc -] 10 mg PO DAILY 05/03/17 Oxybutynin Chloride 5 mg PO BID 05/03/17 Pregabalin [Lyrica] 75 mg PO HS 05/03/17 Sevelamer Carbonate [Renvela -] 800 mg PO TIDCM #90 tab 05/08/17 Calcitriol [Rocaltrol] 0.25 mcg PO ASDIR 10/09/17 Cyclosporine [Restasis] 1 each OP BID 10/09/17 Esomeprazole Magnesium [Nexium 24Hr] 20 mg PO DAILY 10/09/17 Fluticasone/Salmeterol [Advair 250-50 Diskus] 1 each IH Q12H 10/09/17 Fluticasone/Umeclidin/Vilanter [Trelegy Ellipta 100-62.5-25] 1 each IH DAILY 11/18 Furosemide [Lasix] 80 mg PO DAILY 10/09/17 Insulin Lispro [Humalog] 5 unit SQ TID 10/09/17 Isosorbibe Dinit/Hydralazine [Bidil Tablet] 1 each PO TID 10/09/17 Levalbuterol HCl 1.25 mg IH Q8H 10/09/17 Metoprolol Succinate [Toprol Xl] 50 mg PO DAILY 10/09/17 Rosuvastatin Calcium [Crestor] 20 mg PO DAILY 10/09/17 Tramadol HCl 50 mg PO BID 10/09/17 Valsartan 160 mg PO DAILY 10/09/17 Family Disease History - Family Disease History Family History: Unremarkable Review of Systems Findings/Remarks: asp er HPI, ED, H&P Physical Exam-GI Vital Signs: Vital Signs Temperature 98.3 F 10/09/17 09:25 Pulse Rate 86 10/09/17 09:25 Respiratory Rate 18 10/09/17 09:25 Blood Pressure 163/91 10/09/17 09:25 O2 Sat by Pulse Oximetry (%) 99 10/09/17 09:25 Constitutional: Yes: Calm Eyes: Yes: Conjunctiva Clear HENT: Yes: Atraumatic Neck: Yes: Supple Cardiovascular: Yes: Regular Rate and Rhythm Respiratory: Yes: Regular Gastrointestinal Inspection: No: Ascites, Distention ...Auscultate: Yes: Normoactive Bowel Sounds ...Palpate: Yes: Soft. No: Firm/Rigid, Guarding, Mass, Tenderness, Tenderness, Epigastium, Tenderness, Rebound Neurological: Yes: Alert Labs: CBC, BMP 10/09/17 06:30 10/09/17 06:30 INR, PTT INR 0.86 (0.83-1.09) 10/08/17 20:30 Laboratory Last Values WBC 5.8 K/mm3 (4.0-10.0) 10/09/17 06:30 RBC 3.64 M/mm3 (3.60-5.2) 10/09/17 06:30 Hgb 9.7 GM/dL (10.7-15.3) L 10/09/17 06:30 Hct 29.4 % (32.4-45.2) L 10/09/17 06:30 MCV 80.6 fl (80-96) 10/09/17 06:30 MCH 26.7 pg (25.7-33.7) 10/09/17 06:30 MCHC 33.1 g/dl (32.0-36.0) 10/09/17 06:30 RDW 16.5 % (11.6-15.6) H 10/09/17 06:30 Plt Count 212 K/MM3 (134-434) 10/09/17 06:30 MPV 8.6 fl (7.5-11.1) 10/09/17 06:30 Absolute Neuts (auto) 3.3 # 10/08/17 20:30 Neutrophils % 63.9 % (42.8-82.8) D 10/08/17 20:30 Lymphocytes % 24.9 % (8-40) D 10/08/17 20:30 Monocytes % 8.9 % (3.8-10.2) D 10/08/17 20:30 Eosinophils % 1.9 % (0-4.5) D 10/08/17 20:30 Basophils % 0.4 % (0-2.0) D 10/08/17 20:30 Nucleated RBC % 0 % (0-0) 10/08/17 20:30 PT with INR 9.70 SEC (9.7-13.0) 10/08/17 20:30 INR 0.86 (0.83-1.09) 10/08/17 20:30 PTT (Actin FS) 34.1 SECONDS (25.2-36.5) 10/08/17 20:30 Sodium 147 mmol/L (136-145) H 10/09/17 06:30 Potassium 3.7 mmol/L (3.5-5.1) 10/09/17 06:30 Chloride 108 mmol/L (98-107) H 10/09/17 06:30 Carbon Dioxide 30 mmol/L (21-32) 10/09/17 06:30 Anion Gap 9 (8-16) 10/09/17 06:30 BUN 34 mg/dL (7-18) H 10/09/17 06:30 Creatinine 4.3 mg/dL (0.55-1.02) H 10/09/17 06:30 Creat Clearance w eGFR 9.74 (>60) 10/09/17 06:30 POC Glucometer 186 UNITS (80-120) 10/09/17 11:50 Random Glucose 100 mg/dL (74-106) 10/09/17 06:30 Lactic Acid 0.4 mmol/L (0.0-2.0) 10/08/17 20:30 Calcium 9.4 mg/dL (8.5-10.1) 10/09/17 06:30 Magnesium 2.6 mg/dL (1.8-2.4) H 10/09/17 06:30 Total Bilirubin 0.9 mg/dL (0.2-1.0) 10/08/17 20:30 AST 22 U/L (15-37) 10/08/17 20:30 ALT 21 U/L (12-78) 10/08/17 20:30 Alkaline Phosphatase 56 U/L (45-117) 10/08/17 20:30 Creatine Kinase 228 IU/L (26-192) H 10/08/17 20:30 Creatine Kinase Index 0.6 % (0.0-5.0) 10/08/17 20:30 CK-MB (CK-2) 1.46 ng/mL (0.5-3.6) 10/08/17 20:30 Troponin I < 0.02 ng/ml (0.00-0.05) 10/08/17 20:30 Total Protein 7.4 g/dl (6.4-8.2) 10/08/17 20:30 Albumin 4.2 g/dl (3.4-5.0) 10/08/17 20:30 Lipase 217 U/L (73-393) 10/08/17 20:30 Urine Color Colorless 10/08/17 20:30 Urine Appearance Clear 10/08/17 20:30 Urine pH 7.0 (5.0-8.0) 10/08/17 20:30 Ur Specific [place] 1.005 (1.001-1.035) 10/08/17 20:30 Urine Protein 2+ (NEGATIVE) H 10/08/17 20:30 Urine Glucose (UA) Negative (NEGATIVE) 10/08/17 20:30 Urine Ketones Negative (NEGATIVE) 10/08/17 20:30 Urine Blood Negative (NEGATIVE) 10/08/17 20:30 Urine Nitrite Negative (NEGATIVE) 10/08/17 20:30 Urine Bilirubin Negative (<2.0 mg/dL) 10/08/17 20:30 Urine Urobilinogen Negative mg/dL (0.2-1.0) 10/08/17 20:30 Ur Leukocyte Esterase Negative (NEGATIVE) 10/08/17 20:30 Urine WBC (Auto) 1 /hpf (3-5) 10/08/17 20:30 Urine RBC (Auto) None /hpf (0-3) 10/08/17 20:30 Ur Epithelial Cells Rare /HPF (FEW) 10/08/17 20:30 Stool Occult Blood Negative (NEGATIVE) 10/08/17 21:00 Blood Type A POSITIVE 10/08/17 20:30 Antibody Screen Negative 10/08/17 20:30 Imaging - Results Cat Scan: Report Reviewed Problem List - Problems (1) Epigastric abdominal pain Code(s): R10.13 - EPIGASTRIC PAIN (2) Abnormal CT of the abdomen Code(s): R93.5 - ABN FINDINGS ON DX IMAGING OF ABD REGIONS, INC RETROPERITON Assessment/Plan recommend: PPI po, clear liquid deit today, npo after midnight for a repeat EGD in am.
--- NOTE | 2017-10-09 15:03 | PN ---
Teaching Attending Note Name of Resident: Dk Sol ATTENDING PHYSICIAN STATEMENT I saw and evaluated the patient. I reviewed the resident's note and discussed the case with the resident. I agree with the resident's findings and plan as documented. SUBJECTIVE:continues to have abdominal pain. no repeat episods of dark stool since arrival to the hospital. states she saw her PMD for this abdominal pain which she was told is from constipation and linzess was prescribed. seems she had abdominal pain earlier this year which EGD was done showing esophagitis and gastritis. reports decreased appetite and subjective weight loss over the past few months. had colonoscopy in the past showing polyps. denies CP, SOB, fever, chills, N/V/C/D unknown if there is family hx for cancer daughter translated as pt is [place] speaking OBJECTIVE: Last Vital Signs Temp Pulse Resp BP Pulse Ox 98.3 F 86 18 163/91 99 10/09/17 09:25 10/09/17 09:25 10/09/17 09:25 10/09/17 09:25 10/09/17 09:25 General NAD CV S1 S2 heart sounds distant. no JVD Lungs CTA B/L no wheezing/rales/rhonchi Abdomen soft slightly distended. dull to percussion. obese Extremities no pedal edema ASSESSMENT AND PLAN: 87yo F wtih PMH COPD on home O2, HTN, CKD stage V presented to the ER after 4 episodes of black stools iwth abdominal pain 1. Abdominal pain- likely from constipation however concerning for thickened gastric lining in setting of weight loss. will start clear liquid diet. will wait to hear from Gi if they want to repeat EGD. 2. Black stools- low suspicion for melena. FOBT neg x1 with stable Hgb. no repeat episodes. will cont to monitor here 3. Pericardial effusion- seen on CT. will get echo to further clarify. no signs of cardiac tamponade 4. HTN- elevated. will re-start all home medication. titrate to optimizecontrol 5. CKD stage V- pt is getting prepped as outpatient for AV graft placement. no need for emergent HD at this time. cont renvela 6. COPD on home O2 7. DM- controlled. cont medication 8. DVT ppx- SCD. will start hep sq if Hgb remains stable
--- NOTE | 2017-10-09 16:27 | PN ---
Physical Exam: SUBJECTIVE: Patient seen and examined at bedside. still w/ abdominal pain but has not noticed anymore dark stool since arrival to the hospital. reports decreased appetite and subjective weight loss over the past few months. denies fever, chills, CP, SOB, N/V/D, urinary sxs states she saw her PMD for this abdominal pain which she was told is from constipation and linzess was prescribed. seems she had abdominal pain earlier this year which EGD was done showing esophagitis and gastritis. had colonoscopy in the past showing polyps. unknown if there is family hx for cancer daughter translated as pt is Greek speaking OBJECTIVE: Vital Signs Period Temp Pulse Resp BP Sys/Betancourt Pulse Ox Last 24 Hr 97.5 F-99.1 F 78-87 18-24 146-163/71-94 99-100 GENERAL: A&Ox3, no acute distress. obese EYES: PERRLA, EOMI ENT: MMM NECK: No JVD LUNGS: b/l crackles HEART: RRR, S1 S2 distant heart sounds. no m/r/g ABDOMEN: Soft, NTND, BS present MUSCULOSKELETAL: No CVA Tenderness EXTREMITIES: 2+ pulses, no edema. NEUROLOGICAL: Cranial nerves II-XII intact. sensation and strength grossly intact Laboratory Results - last 24 hr 10/08/17 10/08/17 10/08/17 20:30 20:30 20:30 WBC RBC Hgb Hct MCV MCH MCHC RDW Plt Count MPV Absolute Neuts (auto) Neutrophils % Lymphocytes % Monocytes % Eosinophils % Basophils % Nucleated RBC % PT with INR 9.70 INR 0.86 PTT (Actin FS) 34.1 Sodium 145 Potassium 3.7 Chloride 105 Carbon Dioxide 29 Anion Gap 11 BUN 37 H Creatinine 4.9 H Creat Clearance w eGFR 8.38 POC Glucometer Random Glucose 98 Lactic Acid Calcium 9.4 Magnesium 2.4 Total Bilirubin 0.9 AST 22 ALT 21 Alkaline Phosphatase 56 Creatine Kinase 228 H Creatine Kinase Index 0.6 CK-MB (CK-2) 1.46 Troponin I < 0.02 Total Protein 7.4 Albumin 4.2 Lipase 217 Urine Color Colorless Urine Appearance Clear Urine pH 7.0 Ur Specific [place] 1.005 Urine Protein 2+ H Urine Glucose (UA) Negative Urine Ketones Negative Urine Blood Negative Urine Nitrite Negative Urine Bilirubin Negative Urine Urobilinogen Negative Ur Leukocyte Esterase Negative Urine WBC (Auto) 1 Urine RBC (Auto) None Ur Epithelial Cells Rare Stool Occult Blood Blood Type Antibody Screen 10/08/17 10/08/17 10/08/17 20:30 20:30 20:30 WBC 5.1 RBC 3.82 Hgb 9.9 L Hct 30.3 L MCV 79.5 L MCH 25.9 MCHC 32.6 RDW 16.4 H Plt Count 220 D MPV 8.8 D Absolute Neuts (auto) 3.3 Neutrophils % 63.9 D Lymphocytes % 24.9 D Monocytes % 8.9 D Eosinophils % 1.9 D Basophils % 0.4 D Nucleated RBC % 0 PT with INR INR PTT (Actin FS) Sodium Potassium Chloride Carbon Dioxide Anion Gap BUN Creatinine Creat Clearance w eGFR POC Glucometer Random Glucose Lactic Acid 0.4 Calcium Magnesium Total Bilirubin AST ALT Alkaline Phosphatase Creatine Kinase Creatine Kinase Index CK-MB (CK-2) Troponin I Total Protein Albumin Lipase Urine Color Urine Appearance Urine pH Ur Specific [place] Urine Protein Urine Glucose (UA) Urine Ketones Urine Blood Urine Nitrite Urine Bilirubin Urine Urobilinogen Ur Leukocyte Esterase Urine WBC (Auto) Urine RBC (Auto) Ur Epithelial Cells Stool Occult Blood Blood Type A POSITIVE Antibody Screen Negative 10/08/17 10/09/17 10/09/17 21:00 06:30 06:30 WBC 5.8 RBC 3.64 Hgb 9.7 L Hct 29.4 L MCV 80.6 MCH 26.7 MCHC 33.1 RDW 16.5 H Plt Count 212 MPV 8.6 Absolute Neuts (auto) Neutrophils % Lymphocytes % Monocytes % Eosinophils % Basophils % Nucleated RBC % PT with INR INR PTT (Actin FS) Sodium 147 H Potassium 3.7 Chloride 108 H Carbon Dioxide 30 Anion Gap 9 BUN 34 H Creatinine 4.3 H Creat Clearance w eGFR 9.74 POC Glucometer Random Glucose 100 Lactic Acid Calcium 9.4 Magnesium 2.6 H Total Bilirubin AST ALT Alkaline Phosphatase Creatine Kinase Creatine Kinase Index CK-MB (CK-2) Troponin I Total Protein Albumin Lipase Urine Color Urine Appearance Urine pH Ur Specific [place] Urine Protein Urine Glucose (UA) Urine Ketones Urine Blood Urine Nitrite Urine Bilirubin Urine Urobilinogen Ur Leukocyte Esterase Urine WBC (Auto) Urine RBC (Auto) Ur Epithelial Cells Stool Occult Blood Negative Blood Type Antibody Screen 10/09/17 10/09/17 06:49 11:50 WBC RBC Hgb Hct MCV MCH MCHC RDW Plt Count MPV Absolute Neuts (auto) Neutrophils % Lymphocytes % Monocytes % Eosinophils % Basophils % Nucleated RBC % PT with INR INR PTT (Actin FS) Sodium Potassium Chloride Carbon Dioxide Anion Gap BUN Creatinine Creat Clearance w eGFR POC Glucometer 123.91984 186 Random Glucose Lactic Acid Calcium Magnesium Total Bilirubin AST ALT Alkaline Phosphatase Creatine Kinase Creatine Kinase Index CK-MB (CK-2) Troponin I Total Protein Albumin Lipase Urine Color Urine Appearance Urine pH Ur Specific [place] Urine Protein Urine Glucose (UA) Urine Ketones Urine Blood Urine Nitrite Urine Bilirubin Urine Urobilinogen Ur Leukocyte Esterase Urine WBC (Auto) Urine RBC (Auto) Ur Epithelial Cells Stool Occult Blood Blood Type Antibody Screen Active Medications Generic Name Dose Route Start Last Admin Trade Name Freq PRN Reason Stop Dose Admin Amlodipine Besylate 10 mg 10/09/17 10:00 10/09/17 09:55 Norvasc - PO 10 mg DAILY FORREST Administration Furosemide 80 mg 10/09/17 10:00 10/09/17 09:55 Lasix - PO 80 mg DAILY FORREST Administration Hydralazine HCl 37.5 mg 10/09/17 08:00 10/09/17 14:35 Apresoline - PO 37.5 mg TIDISORDIL FORREST Administration Sodium Chloride 1,000 mls @ 75 mls/hr 10/09/17 00:30 10/09/17 00:30 Normal Saline - IV 75 mls/hr ASDIR FORREST Administration Insulin Aspart 1 vial 10/09/17 07:00 10/09/17 12:00 Novolog Vial Sliding Scale - SQ Not Given ACHS FORREST Protocol Isosorbide Dinitrate 20 mg 10/09/17 08:00 10/09/17 14:35 Isordil - PO Not Given TIDISORDIL FORREST Metoprolol Succinate 50 mg 10/09/17 10:00 10/09/17 09:55 Toprol Xl - PO 50 mg DAILY FORREST Administration Non-Formulary Medication 1 each 10/09/17 10:00 Cyclosporine [Restasis] OP DAILY FORREST Non-Formulary Medication 1 each 10/09/17 10:00 Fluticasone/Umeclidin/Vilanter [Trelegy Ellipta 100-62.5-25] IH DAILY FORREST Non-Formulary Medication 1.25 mg 10/09/17 04:45 10/09/17 06:40 Levalbuterol Hcl [Levalbuterol Hcl] IH Not Given Q8H OFRREST Oxybutynin Chloride 5 mg 10/09/17 10:00 10/09/17 09:54 Ditropan - PO 5 mg DAILY FORREST Administration Pantoprazole Sodium 40 mg 10/09/17 10:00 10/09/17 09:55 Protonix - PO 40 mg DAILY FORREST Administration Pregabalin 75 mg 10/09/17 22:00 Lyrica - PO HS FORREST Rosuvastatin Calcium 20 mg 10/09/17 22:00 Crestor - PO HS FORREST Fluticasone/Salmeterol 1 puff 10/09/17 10:00 10/09/17 09:56 Advair 100mcg/50mcg - IH Not Given BID FORREST ASSESSMENT/PLAN: 87 year old female with a hx of COPD (2L O2 at home), asthma, hypertension, CHF , renal stones, CKD stage V (nearing ESRD) presented to the hospital with epigastric abdominal pain and 4 episodes of black stools #Epigastric Abdominal Pain: resolved currently during exam, daughter reports latest BM being dark brown - likely from constipation however concerning for thickened gastric lining in setting of weight loss -GI consult, Dr. Noland -start clear liquid diet -NPO at midnight for repeat EGD. -lipase wnl -recent EGD was done: Mild gastritis in the antrum and esophagitis at the GEJ , otherwise normal exam. No biopsies -CT abdomen pelvis shows 1.7cm thick pericardial effusion and gastric inflammation, R inguinal -FOBT negative -GI consulted -will observe H&H overnight -protonix 40mg daily #Black stools- low suspicion for melena. -FOBT neg x1 with stable Hgb. no repeat episodes. -will cont to monitor here -monitor H/H #Pericardial effusion- seen on CT. -echo shows small pericardial efussion <1cm and no signs of cardiac tamponade #Anemia: stable, hgb is at current baseline -monitor H&H, transfuse if hgb < 7 #LUCY on CKD stage V: cre 4.9, which is slightly elevated from baseline. pt is getting prepped as outpatient for AV graft placement. no need for emergent HD at this time -monitor BUN/Cre -fluids -continue lasix -c/w sevelamer -hold valsartan due to kidney function? #CHF: chronic -continue lasix #DM: chronic controlled. -ISS -BGMs #COPD: chronic. on home O2 -Advair, albuterol, trelegy #Hypertension -cont home meds -hold valsartan? #Hyperlipidemia: stable -continue rosuvastatin #FEN -NS @ 75cc/hr -replete lytes in AM -clear liquid diet -NPO at midnight for repeat EGD. #Prophylaxis -SCDs, start hep sq if Hgb remains stable #Disposition -obs Visit type - Emergency Visit Emergency Visit: Yes ED Registration Date: 10/09/17 Care time: The patient presented to the Emergency Department on the above date and was hospitalized for further evaluation of their emergent condition. - New Patient This patient is new to me today: Yes Date on this admission: 10/09/17 - Critical Care Critical Care patient: No
[2017-10-09] MEDS ORDERED: CALCITRIOL 0.25 MCG PO SCH (16:45)
--- NOTE | 2017-10-09 16:48 | EKG ---
Test Reason : Blood Pressure : / mmHG Vent. Rate : 087 BPM Atrial Rate : 087 BPM P-R Int : 218 ms QRS Dur : 086 ms QT Int : 348 ms P-R-T Axes : 078 081 075 degrees QTc Int : 418 ms SINUS RHYTHM WITH 1ST DEGREE A-V BLOCK SEPTAL INFARCT , AGE UNDETERMINED ABNORMAL ECG WHEN COMPARED WITH ECG OF 03-MAY-2017 11:45, CT INTERVAL HAS INCREASED SEPTAL INFARCT IS NOW PRESENT NONSPECIFIC T WAVE ABNORMALITY HAS REPLACED INVERTED T WAVES IN LATERAL LEADS Confirmed by MADELINE ALDANA MD ([id number]) on 10/09/2017 3:46:44 PM Referred By: Confirmed By:MADELINE ALDANA MD
[2017-10-09] MEDS: SEVELAMER CARBONATE 800 MG TAB (FP) PO SCH (17:50)
[2017-10-09] MEDS: PREGABALIN 25 MG CAPSULE PO SCH (23:17)
[2017-10-09] MEDS: ROSUVASTATIN CA 20 MG TABLET (FP) PO SCH (23:17)
[2017-10-10] MEDS: SODIUM CHLORIDE 1,000 ML IV SCH (04:29)
[2017-10-10] MEDS: INSULIN SLIDING SCALE (NOVOLOG) 1 VIAL SQ SCH ×4 (06:03→21:43)
--- NOTE | 2017-10-10 08:31 | PN ---
Teaching Attending Note Name of Resident: Dk Sol ATTENDING PHYSICIAN STATEMENT I saw and evaluated the patient. I reviewed the resident's note and discussed the case with the resident. I agree with the resident's findings and plan as documented. SUBJECTIVE: Comfortable with no acute distress. OBJECTIVE: Vital Signs Temperature 98.5 F 10/10/17 06:00 Pulse Rate 79 10/10/17 06:00 Respiratory Rate 20 10/10/17 06:00 Blood Pressure 150/77 10/10/17 06:00 O2 Sat by Pulse Oximetry (%) 98 10/10/17 01:00 CBCD WBC 5.8 K/mm3 (4.0-10.0) 10/09/17 06:30 RBC 3.64 M/mm3 (3.60-5.2) 10/09/17 06:30 Hgb 9.7 GM/dL (10.7-15.3) L 10/09/17 06:30 Hct 29.4 % (32.4-45.2) L 10/09/17 06:30 MCV 80.6 fl (80-96) 10/09/17 06:30 MCHC 33.1 g/dl (32.0-36.0) 10/09/17 06:30 RDW 16.5 % (11.6-15.6) H 10/09/17 06:30 Plt Count 212 K/MM3 (134-434) 10/09/17 06:30 MPV 8.6 fl (7.5-11.1) 10/09/17 06:30 CMP Sodium 147 mmol/L (136-145) H 10/09/17 06:30 Potassium 3.7 mmol/L (3.5-5.1) 10/09/17 06:30 Chloride 108 mmol/L (98-107) H 10/09/17 06:30 Carbon Dioxide 30 mmol/L (21-32) 10/09/17 06:30 Anion Gap 9 (8-16) 10/09/17 06:30 BUN 34 mg/dL (7-18) H 10/09/17 06:30 Creatinine 4.3 mg/dL (0.55-1.02) H 10/09/17 06:30 Creat Clearance w eGFR 9.74 (>60) 10/09/17 06:30 Random Glucose 100 mg/dL (74-106) 10/09/17 06:30 Calcium 9.4 mg/dL (8.5-10.1) 10/09/17 06:30 Total Bilirubin 0.9 mg/dL (0.2-1.0) 10/08/17 20:30 AST 22 U/L (15-37) 10/08/17 20:30 ALT 21 U/L (12-78) 10/08/17 20:30 Alkaline Phosphatase 56 U/L (45-117) 10/08/17 20:30 Total Protein 7.4 g/dl (6.4-8.2) 10/08/17 20:30 Albumin 4.2 g/dl (3.4-5.0) 10/08/17 20:30 CARDIAC ENZYMES Creatine Kinase 228 IU/L (26-192) H 10/08/17 20:30 Troponin I < 0.02 ng/ml (0.00-0.05) 10/08/17 20:30 Current Medications Generic Name Dose Route Start Last Admin Trade Name Shubham PRN Reason Stop Dose Admin Amlodipine Besylate 10 mg 10/09/17 10:00 10/09/17 09:55 Norvasc - PO 10 mg DAILY [facility] Administration Furosemide 80 mg 10/09/17 10:00 10/09/17 09:55 Lasix - PO 80 mg DAILY [facility] Administration Hydralazine HCl 37.5 mg 10/09/17 08:00 10/09/17 17:51 Apresoline - PO 37.5 mg TIDISORDIL [facility] Administration Sodium Chloride 1,000 mls @ 75 mls/hr 10/09/17 00:30 10/10/17 04:29 Normal Saline - IV Not Given ASDIR [facility] Insulin Aspart 1 vial 10/09/17 07:00 10/10/17 06:03 Novolog Vial Sliding Scale - SQ Not Given ACHS [facility] Protocol Isosorbide Dinitrate 20 mg 10/09/17 08:00 10/09/17 17:51 Isordil - PO Not Given TIDISORDIL [facility] Metoprolol Succinate 50 mg 10/09/17 10:00 10/09/17 09:55 Toprol Xl - PO 50 mg DAILY [facility] Administration Non-Formulary Medication 1 each 10/09/17 10:00 Cyclosporine [Restasis] OP DAILY [facility] Non-Formulary Medication 1 each 10/09/17 10:00 Fluticasone/Umeclidin/Vilanter [Trelegy Ellipta 100-62.5-25] IH DAILY [facility] Non-Formulary Medication 1.25 mg 10/09/17 04:45 10/09/17 06:40 Levalbuterol Hcl [Levalbuterol Hcl] IH Not Given Q8H [facility] Oxybutynin Chloride 5 mg 10/09/17 10:00 10/09/17 09:54 Ditropan - PO 5 mg DAILY [facility] Administration Pantoprazole Sodium 40 mg 10/09/17 10:00 10/09/17 09:55 Protonix - PO 40 mg DAILY [facility] Administration Pregabalin 75 mg 10/09/17 22:00 10/09/17 23:17 Lyrica - PO 75 mg HS [facility] Administration Rosuvastatin Calcium 20 mg 10/09/17 22:00 10/09/17 23:17 Crestor - PO 20 mg HS [facility] Administration Fluticasone/Salmeterol 1 puff 10/09/17 10:00 10/09/17 23:18 Advair 100mcg/50mcg - IH 1 puff BID [facility] Administration Sevelamer Carbonate 800 mg 10/09/17 17:30 10/09/17 17:50 Renvela - PO 800 mg TIDCM [facility] Administration Home Medications Medication Instructions Recorded Albuterol Sulfate Inhaler - 1 - 2 inh PO Q6H 05/03/17 [Ventolin HFA Inhaler -] Amlodipine Besylate [Norvasc -] 10 mg PO DAILY 05/03/17 Oxybutynin Chloride 5 mg PO BID 05/03/17 Pregabalin [Lyrica] 75 mg PO HS 05/03/17 Sevelamer Carbonate [Renvela -] 800 mg PO TIDCM #90 tab 05/08/17 Calcitriol [Rocaltrol] 0.25 mcg PO ASDIR 10/09/17 Cyclosporine [Restasis] 1 each OP BID 10/09/17 Esomeprazole Magnesium [Nexium 20 mg PO DAILY 10/09/17 24Hr] Fluticasone/Salmeterol [Advair 1 each IH Q12H 10/09/17 250-50 Diskus] Fluticasone/Umeclidin/Vilanter 1 each IH DAILY 10/09/17 [Trelegy Ellipta 100-62.5-25] Furosemide [Lasix] 80 mg PO DAILY 10/09/17 Insulin Lispro [Humalog] 5 unit SQ TID 10/09/17 Levalbuterol HCl 1.25 mg IH Q8H 10/09/17 Metoprolol Succinate [Toprol Xl] 50 mg PO DAILY 10/09/17 Rosuvastatin Calcium [Crestor] 20 mg PO DAILY 10/09/17 Tramadol HCl 50 mg PO BID 10/09/17 General NAD CV S1 S2 heart sounds distant. no JVD Lungs CTA B/L no wheezing/rales/rhonchi Abdomen soft slightly distended. dull to percussion. obese Extremities no pedal edema ASSESSMENT AND PLAN: 87yo F wtih PMH COPD on home O2, HTN, CKD stage V presented to the ER after 4 episodes of black stools iwth abdominal pain # Abdominal pain most likely from constipation .s/p EGD with normal result. thickened gastric lining in setting of weight loss s/p EGD with normal result . # Pericardial effusion- seen on CT. will get echo to further clarify. no signs of cardiac tamponade # HTN- elevated. continue home meds # CKD stage V- pt is getting prepped as outpatient for AV graft placement. no need for emergent HD at this time. cont renvela # COPD continue home O2 # DM- controlled. cont medication DVT ppx- SCD. will start hep sq if Hgb remains stable
[2017-10-10] MEDS: hydrALAZINE HCL 25 MG TABLET (FP) PO SCH ×3 (09:00→18:03)
[2017-10-10] MEDS: ISOSORBIDE DINITRATE 20 MG TABLET (FP) PO SCH ×3 (09:00→18:04)
[2017-10-10] MEDS: SEVELAMER CARBONATE 800 MG TAB (FP) PO SCH ×3 (09:01→18:02)
[2017-10-10] MEDS ORDERED: PT OWN MED DRAWER 7, Y5N ONE ×3 (10:00→21:19)
[2017-10-10] MEDS: amLODIPine BESYLATE 10 MG TABLET (FP) PO SCH (10:01)
[2017-10-10] MEDS: OXYBUTYNIN CHLORIDE 5 MG TABLET PO SCH (10:01)
[2017-10-10] MEDS: FUROSEMIDE 40 MG TABLET (FP) PO SCH (10:02)
[2017-10-10] MEDS: PANTOPRAZOLE 40 MG TABLET (FP) PO SCH (10:02)
[2017-10-10] MEDS: FLUTICASONE/SALMETEROL 100 MCG/50 MCG DISKUS IH SCH ×2 (10:09→21:39)
[2017-10-10 10:10] LABS: BASO % 0.3 % (0-2.0); EOS % 2.9 % (0-4.5); HEMATOCRIT 29.9 % (32.4-45.2); HEMOGLOBIN 9.9 GM/dL (10.7-15.3); LYMPH % 23.3 % (8-40); MCH 26.4 pg (25.7-33.7); MCHC 33.1 g/dl (32.0-36.0); MEAN PLT VOLUME 8.7 fl (7.5-11.1); MONO % 8.8 % (3.8-10.2); NEUT % 64.7 % (42.8-82.8); PLATELET COUNT 202 K/MM3 (134-434); RBC 3.74 M/mm3 (3.60-5.2); RDW 16.5 % (11.6-15.6); WHITE BLOOD COUNT 4.1 K/mm3 (4.0-10.0)
[2017-10-10 10:35] LABS: ALBUMIN 3.9 g/dl (3.4-5.0); ANION GAP 8 (8-16); BLOOD UREA NITROGEN 29 mg/dL (7-18); CALCIUM 9.2 mg/dL (8.5-10.1); CHLORIDE 109 mmol/L (98-107); CO2 31 mmol/L (21-32); CREATININE 3.9 mg/dL (0.55-1.02); GLUCOSE,RANDOM 104 mg/dL (74-106); MAGNESIUM 2.2 mg/dL (1.8-2.4); PHOSPHOROUS 4.7 mg/dL (2.5-4.9); POTASSIUM 3.5 mmol/L (3.5-5.1); SGOT/AST 18 U/L (15-37); SGPT/ALT 19 U/L (12-78); SODIUM 148 mmol/L (136-145)
[2017-10-10 10:38] LABS: ALK PHOS 59 U/L (45-117); BILIRUBIN,TOTAL 1.1 mg/dL (0.2-1.0)
[2017-10-10 10:46] LABS: INR 0.92 (0.83-1.09); PROTHROMBIN TIME (PATIENT) 10.4 SEC (9.7-13.0)
[2017-10-10] MEDS ORDERED: ACETAMINOPHEN 1000 MG/100 ML VIAL (NON FORMULARY) IVPB ONE ×2 (12:00→18:15)
--- NOTE | 2017-10-10 13:57 | PROC ---
Endoscopy Procedure Endoscopy procedure completed. Please see scanned procedure report. Normal upper endoscopy. Consider CT angiogram
--- NOTE | 2017-10-10 15:39 | PN ---
Physical Exam: SUBJECTIVE: Patient seen and examined OBJECTIVE: Vital Signs Period Temp Pulse Resp BP Sys/Betancourt Pulse Ox Last 24 Hr 98.0 F-98.8 F 76-85 18-20 140-161/67-78 93-99 GENERAL: The patient is awake, alert, and fully oriented, in no acute distress. HEAD: Normal with no signs of trauma. EYES: PERRL, extraocular movements intact, sclera anicteric, conjunctiva clear. No ptosis. ENT: Ears normal, nares patent, oropharynx clear without exudates, moist mucous membranes. NECK: Trachea midline, full range of motion, supple. LUNGS: Breath sounds equal, clear to auscultation bilaterally, no wheezes, no crackles, no accessory muscle use. HEART: Regular rate and rhythm, S1, S2 without murmur, rub or gallop. ABDOMEN: Soft, nontender, nondistended, normoactive bowel sounds, no guarding, no rebound, no hepatosplenomegaly, no masses. EXTREMITIES: 2+ pulses, warm, well-perfused, no edema. NEUROLOGICAL: Cranial nerves II through XII grossly intact. Normal speech, gait not observed. PSYCH: Normal mood, normal affect. SKIN: Warm, dry, normal turgor, no rashes or lesions noted Laboratory Results - last 24 hr 10/09/17 10/09/17 10/09/17 17:15 20:30 23:22 WBC RBC Hgb Hct MCV MCH MCHC RDW Plt Count MPV Absolute Neuts (auto) Neutrophils % Lymphocytes % Monocytes % Eosinophils % Basophils % Nucleated RBC % PT with INR INR PTT (Actin FS) 29.8 Sodium Potassium Chloride Carbon Dioxide Anion Gap BUN Creatinine Creat Clearance w eGFR POC Glucometer 106 85 Random Glucose Calcium Phosphorus Magnesium Total Bilirubin AST ALT Alkaline Phosphatase Total Protein Albumin 10/10/17 10/10/17 10/10/17 06:00 09:35 09:55 WBC 4.1 RBC 3.74 Hgb 9.9 L Hct 29.9 L MCV 80.0 MCH 26.4 MCHC 33.1 RDW 16.5 H Plt Count 202 MPV 8.7 Absolute Neuts (auto) 2.6 Neutrophils % 64.7 Lymphocytes % 23.3 Monocytes % 8.8 Eosinophils % 2.9 Basophils % 0.3 Nucleated RBC % 0 PT with INR 10.40 INR 0.92 PTT (Actin FS) Sodium Potassium Chloride Carbon Dioxide Anion Gap BUN Creatinine Creat Clearance w eGFR POC Glucometer 96 Random Glucose Calcium Phosphorus Magnesium Total Bilirubin AST ALT Alkaline Phosphatase Total Protein Albumin 10/10/17 10/10/17 09:55 12:46 WBC RBC Hgb Hct MCV MCH MCHC RDW Plt Count MPV Absolute Neuts (auto) Neutrophils % Lymphocytes % Monocytes % Eosinophils % Basophils % Nucleated RBC % PT with INR INR PTT (Actin FS) Sodium 148 H Potassium 3.5 Chloride 109 H Carbon Dioxide 31 Anion Gap 8 BUN 29 H Creatinine 3.9 H Creat Clearance w eGFR 10.91 POC Glucometer 102 Random Glucose 104 Calcium 9.2 Phosphorus 4.7 Magnesium 2.2 Total Bilirubin 1.1 H AST 18 ALT 19 Alkaline Phosphatase 59 Total Protein 7.0 Albumin 3.9 Active Medications Generic Name Dose Route Start Last Admin Trade Name Freq PRN Reason Stop Dose Admin Amlodipine Besylate 10 mg 10/09/17 10:00 10/10/17 10:01 Norvasc - PO 10 mg DAILY [facility] Administration Furosemide 80 mg 10/09/17 10:00 10/10/17 10:02 Lasix - PO 80 mg DAILY [facility] Administration Hydralazine HCl 37.5 mg 10/09/17 08:00 10/10/17 09:00 Apresoline - PO 37.5 mg TIDISORDIL [facility] Administration Sodium Chloride 1,000 mls @ 75 mls/hr 10/09/17 00:30 10/10/17 04:29 Normal Saline - IV Not Given ASDIR [facility] Insulin Aspart 1 vial 10/09/17 07:00 10/10/17 11:30 Novolog Vial Sliding Scale - SQ Not Given ACHS [facility] Protocol Isosorbide Dinitrate 20 mg 10/09/17 08:00 10/10/17 09:00 Isordil - PO 20 mg TIDISORDIL [facility] Administration Metoprolol Succinate 50 mg 10/09/17 10:00 10/10/17 10:01 Toprol Xl - PO 50 mg DAILY [facility] Administration Non-Formulary Medication 1 each 10/09/17 10:00 Cyclosporine [Restasis] OP DAILY [facility] Non-Formulary Medication 1 each 10/09/17 10:00 Fluticasone/Umeclidin/Vilanter [Trelegy Ellipta 100-62.5-25] IH DAILY [facility] Non-Formulary Medication 1.25 mg 10/09/17 04:45 10/09/17 06:40 Levalbuterol Hcl [Levalbuterol Hcl] IH Not Given Q8H [facility] Oxybutynin Chloride 5 mg 10/09/17 10:00 10/10/17 10:01 Ditropan - PO 5 mg DAILY [facility] Administration Pantoprazole Sodium 40 mg 10/09/17 10:00 10/10/17 10:02 Protonix - PO 40 mg DAILY [facility] Administration Pregabalin 75 mg 10/09/17 22:00 10/09/17 23:17 Lyrica - PO 75 mg HS [facility] Administration Rosuvastatin Calcium 20 mg 10/09/17 22:00 10/09/17 23:17 Crestor - PO 20 mg HS [facility] Administration Fluticasone/Salmeterol 1 puff 10/09/17 10:00 10/10/17 10:09 Advair 100mcg/50mcg - IH 1 puff BID [facility] Administration Sevelamer Carbonate 800 mg 10/09/17 17:30 10/10/17 09:01 Renvela - PO 800 mg TIDCM [facility] Administration ASSESSMENT/PLAN:
--- NOTE | 2017-10-10 16:44 | CONSULT ---
Consult Consult Specialty:: Nephrology Reason for Consultation:: CKD - History of Present Illness Chief Complaint: abdominal pain History of Present Illness: Pt is an 87 year old female with pmhx of CKD, CODP, HTN, and nephrolithiasis who presents to the ER for abdominal pain. Pt also complains of endoscopy. She had also had melena. I was called to evaluate her for elevated creatinine. She has history of CKD. Her renal function is at baseline. I discussed AV access with family as outpt and they will follow with vascular. - History Source History Provided By: Medical Record - Past Medical History Cardio/Vascular: Yes: HTN Pulmonary: Yes: COPD Renal/: Yes: Renal Calculi (maybe- she had flank pain) ...: No Endocrine: Yes: Diabetes Mellitus - Alcohol/Substance Use Hx Alcohol Use: No - Smoking History Smoking history: Former smoker Have you smoked in the past 12 months: No Aproximately how many cigarettes per day: 0 Home Medications - Allergies Allergies/Adverse Reactions: Allergies Allergy/AdvReac Type Severity Reaction Status Date / Time No Known Allergies Allergy Verified 10/08/17 17:57 - Home Medications Home Medications: Ambulatory Orders Albuterol Sulfate Inhaler - [Ventolin HFA Inhaler -] 1 - 2 inh PO Q6H 05/03/17 Amlodipine Besylate [Norvasc -] 10 mg PO DAILY 05/03/17 Oxybutynin Chloride 5 mg PO BID 05/03/17 Pregabalin [Lyrica] 75 mg PO HS 05/03/17 Sevelamer Carbonate [Renvela -] 800 mg PO TIDCM #90 tab 05/08/17 Calcitriol [Rocaltrol] 0.25 mcg PO ASDIR 10/09/17 Cyclosporine [Restasis] 1 each OP BID 10/09/17 Esomeprazole Magnesium [Nexium 24Hr] 20 mg PO DAILY 10/09/17 Fluticasone/Salmeterol [Advair 250-50 Diskus] 1 each IH Q12H 10/09/17 Fluticasone/Umeclidin/Vilanter [Trelegy Ellipta 100-62.5-25] 1 each IH DAILY 11/18 Furosemide [Lasix] 80 mg PO DAILY 10/09/17 Insulin Lispro [Humalog] 5 unit SQ TID 10/09/17 Levalbuterol HCl 1.25 mg IH Q8H 10/09/17 Metoprolol Succinate [Toprol Xl] 50 mg PO DAILY 10/09/17 Rosuvastatin Calcium [Crestor] 20 mg PO DAILY 10/09/17 Tramadol HCl 50 mg PO BID 10/09/17 Cyclosporine [Restasis] 1 drop OP BID 10/10/17 Isosorbibe Dinit/Hydralazine [Bidil Tablet] 37.5 mg PO TID 10/10/17 Linaclotide [Linzess] 290 mcg PO DAILY 10/10/17 Review of Systems - Review of Systems Constitutional: reports: Malaise Eyes: reports: No Symptoms HENT: reports: No Symptoms Neck: reports: No Symptoms Cardiovascular: reports: No Symptoms Respiratory: reports: No Symptoms, SOB on Exertion Gastrointestinal: reports: Abdominal Pain Genitourinary: reports: No Symptoms Musculoskeletal: reports: No Symptoms Integumentary: reports: No Symptoms Neurological: reports: No Symptoms Endocrine: reports: No Symptoms Physical Exam Vital Signs: Vital Signs Temperature 98.2 F 10/10/17 15:14 Pulse Rate 80 10/10/17 15:14 Respiratory Rate 18 10/10/17 15:14 Blood Pressure 161/68 10/10/17 15:14 O2 Sat by Pulse Oximetry (%) 96 10/10/17 14:24 Constitutional: Yes: Calm Eyes: Yes: Conjunctiva Clear HENT: Yes: Atraumatic Cardiovascular: Yes: S1, S2 Respiratory: Yes: CTA Bilaterally Gastrointestinal: Yes: Soft Renal/: Yes: WNL Musculoskeletal: Yes: WNL Edema: No Integumentary: Yes: WNL Neurological: Yes: Oriented Labs: CBC, BMP 10/10/17 09:55 10/10/17 09:55 Imaging - Results Cat Scan: Report Reviewed Problem List - Problems (1) Epigastric abdominal pain Code(s): R10.13 - EPIGASTRIC PAIN (2) Chronic kidney disease Code(s): N18.9 - CHRONIC KIDNEY DISEASE, UNSPECIFIED (3) Hypertension Code(s): I10 - ESSENTIAL (PRIMARY) HYPERTENSION Assessment/Plan Current Medications Generic Name Dose Route Start Last Admin Trade Name Freq PRN Reason Stop Dose Admin Amlodipine Besylate 10 mg 10/09/17 10:00 10/10/17 10:01 Norvasc - PO 10 mg DAILY [facility] Administration Furosemide 80 mg 08/09/18 10:00 10/10/17 10:02 Lasix - PO 80 mg DAILY [facility] Administration Hydralazine HCl 37.5 mg 10/09/17 08:00 10/10/17 09:00 Apresoline - PO 37.5 mg TIDISORDIL [facility] Administration Sodium Chloride 1,000 mls @ 75 mls/hr 10/09/17 00:30 10/10/17 04:29 Normal Saline - IV Not Given ASDIR [facility] Insulin Aspart 1 vial 10/09/17 07:00 10/10/17 11:30 Novolog Vial Sliding Scale - SQ Not Given ACHS [facility] Protocol Isosorbide Dinitrate 20 mg 10/09/17 08:00 10/10/17 09:00 Isordil - PO 20 mg TIDISORDIL [facility] Administration Metoprolol Succinate 50 mg 10/09/17 10:00 10/10/17 10:01 Toprol Xl - PO 50 mg DAILY [facility] Administration Non-Formulary Medication 1 each 10/09/17 10:00 Cyclosporine [Restasis] OP DAILY [facility] Non-Formulary Medication 1 each 10/09/17 10:00 Fluticasone/Umeclidin/Vilanter [Trelegy Ellipta 100-62.5-25] IH DAILY [facility] Non-Formulary Medication 1.25 mg 10/09/17 04:45 10/09/17 06:40 Levalbuterol Hcl [Levalbuterol Hcl] IH Not Given Q8H [facility] Oxybutynin Chloride 5 mg 10/09/17 10:00 10/10/17 10:01 Ditropan - PO 5 mg DAILY [facility] Administration Pantoprazole Sodium 40 mg 10/09/17 10:00 10/10/17 10:02 Protonix - PO 40 mg DAILY [facility] Administration Pregabalin 75 mg 10/09/17 22:00 10/09/17 23:17 Lyrica - PO 75 mg HS [facility] Administration Rosuvastatin Calcium 20 mg 10/09/17 22:00 10/09/17 23:17 Crestor - PO 20 mg HS [facility] Administration Fluticasone/Salmeterol 1 puff 10/09/17 10:00 10/10/17 10:09 Advair 100mcg/50mcg - IH 1 puff BID [facility] Administration Sevelamer Carbonate 800 mg 10/09/17 17:30 10/10/17 09:01 Renvela - PO 800 mg TIDCM [facility] Administration Impression 1. CKD 2. HTN 3. HLD 4. COPD 5. DM 6. pos heb b core 7. abd pain Plan - d/c fluids once pt tolerating diet - av access as outpt - renal function close to baseline - renal diet - avoid nsaids - avoid nephrotoxins - will follow Dr Reis
--- NOTE | 2017-10-10 17:12 | PN ---
Physical Exam: SUBJECTIVE: Patient seen and examined at bedside. NPO overnight for EGD today. still w/ abdominal pain but has not noticed anymore dark stool since arrival to the hospital. denies fever, chills, CP, SOB, N/V/D, urinary sxs OBJECTIVE: Vital Signs Period Temp Pulse Resp BP Sys/Betancourt Pulse Ox Last 24 Hr 98.0 F-98.8 F 76-85 18-20 140-161/67-78 93-99 GENERAL: A&Ox3, no acute distress. obese EYES: PERRLA, EOMI ENT: MMM NECK: No JVD LUNGS: b/l crackles HEART: RRR, S1 S2 distant heart sounds. no m/r/g ABDOMEN: Soft, mild TTP L side ND, BS present MUSCULOSKELETAL: No CVA Tenderness EXTREMITIES: 2+ pulses, no edema. NEUROLOGICAL: Cranial nerves II-XII intact. sensation and strength grossly intact Laboratory Results - last 24 hr 10/09/17 10/09/17 10/09/17 17:15 20:30 23:22 WBC RBC Hgb Hct MCV MCH MCHC RDW Plt Count MPV Absolute Neuts (auto) Neutrophils % Lymphocytes % Monocytes % Eosinophils % Basophils % Nucleated RBC % PT with INR INR PTT (Actin FS) 29.8 Sodium Potassium Chloride Carbon Dioxide Anion Gap BUN Creatinine Creat Clearance w eGFR POC Glucometer 106 85 Random Glucose Calcium Phosphorus Magnesium Total Bilirubin AST ALT Alkaline Phosphatase Total Protein Albumin 10/10/17 10/10/17 10/10/17 06:00 09:35 09:55 WBC 4.1 RBC 3.74 Hgb 9.9 L Hct 29.9 L MCV 80.0 MCH 26.4 MCHC 33.1 RDW 16.5 H Plt Count 202 MPV 8.7 Absolute Neuts (auto) 2.6 Neutrophils % 64.7 Lymphocytes % 23.3 Monocytes % 8.8 Eosinophils % 2.9 Basophils % 0.3 Nucleated RBC % 0 PT with INR 10.40 INR 0.92 PTT (Actin FS) Sodium Potassium Chloride Carbon Dioxide Anion Gap BUN Creatinine Creat Clearance w eGFR POC Glucometer 96 Random Glucose Calcium Phosphorus Magnesium Total Bilirubin AST ALT Alkaline Phosphatase Total Protein Albumin 10/10/17 10/10/17 09:55 12:46 WBC RBC Hgb Hct MCV MCH MCHC RDW Plt Count MPV Absolute Neuts (auto) Neutrophils % Lymphocytes % Monocytes % Eosinophils % Basophils % Nucleated RBC % PT with INR INR PTT (Actin FS) Sodium 148 H Potassium 3.5 Chloride 109 H Carbon Dioxide 31 Anion Gap 8 BUN 29 H Creatinine 3.9 H Creat Clearance w eGFR 10.91 POC Glucometer 102 Random Glucose 104 Calcium 9.2 Phosphorus 4.7 Magnesium 2.2 Total Bilirubin 1.1 H AST 18 ALT 19 Alkaline Phosphatase 59 Total Protein 7.0 Albumin 3.9 Active Medications Generic Name Dose Route Start Last Admin Trade Name Shubham PRN Reason Stop Dose Admin Amlodipine Besylate 10 mg 10/09/17 10:00 10/10/17 10:01 Norvasc - PO 10 mg DAILY [facility] Administration Furosemide 80 mg 10/09/17 10:00 10/10/17 10:02 Lasix - PO 80 mg DAILY [facility] Administration Hydralazine HCl 37.5 mg 10/09/17 08:00 10/10/17 09:00 Apresoline - PO 37.5 mg TIDISORDIL [facility] Administration Sodium Chloride 1,000 mls @ 75 mls/hr 10/09/17 00:30 10/10/17 04:29 Normal Saline - IV Not Given ASDIR [facility] Insulin Aspart 1 vial 10/09/17 07:00 10/10/17 11:30 Novolog Vial Sliding Scale - SQ Not Given ACHS [facility] Protocol Isosorbide Dinitrate 20 mg 10/09/17 08:00 10/10/17 09:00 Isordil - PO 20 mg TIDISORDIL [facility] Administration Metoprolol Succinate 50 mg 10/09/17 10:00 10/10/17 10:01 Toprol Xl - PO 50 mg DAILY [facility] Administration Non-Formulary Medication 1 each 10/09/17 10:00 Cyclosporine [Restasis] OP DAILY [facility] Non-Formulary Medication 1 each 10/09/17 10:00 Fluticasone/Umeclidin/Vilanter [Trelegy Ellipta 100-62.5-25] IH DAILY [facility] Non-Formulary Medication 1.25 mg 10/09/17 04:45 10/09/17 06:40 Levalbuterol Hcl [Levalbuterol Hcl] IH Not Given Q8H [facility] Oxybutynin Chloride 5 mg 10/09/17 10:00 10/10/17 10:01 Ditropan - PO 5 mg DAILY [facility] Administration Pantoprazole Sodium 40 mg 10/09/17 10:00 10/10/17 10:02 Protonix - PO 40 mg DAILY [facility] Administration Pregabalin 75 mg 10/09/17 22:00 10/09/17 23:17 Lyrica - PO 75 mg HS [facility] Administration Rosuvastatin Calcium 20 mg 10/09/17 22:00 10/09/17 23:17 Crestor - PO 20 mg HS [facility] Administration Fluticasone/Salmeterol 1 puff 10/09/17 10:00 10/10/17 10:09 Advair 100mcg/50mcg - IH 1 puff BID [facility] Administration Sevelamer Carbonate 800 mg 10/09/17 17:30 10/10/17 09:01 Renvela - PO 800 mg TIDCM [facility] Administration ASSESSMENT/PLAN: 87 year old female with a hx of COPD (2L O2 at home), asthma, hypertension, CHF , renal stones, CKD stage V (nearing ESRD) presented to the hospital with epigastric abdominal pain and 4 episodes of black stools #Epigastric Abdominal Pain: resolved currently during exam, daughter reports latest BM being dark brown - likely from constipation however concerning for thickened gastric lining in setting of weight loss -GI consult, Dr. Noland -renal diet -EGD today was normal. -lipase wnl -recent EGD was done: Mild gastritis in the antrum and esophagitis at the GEJ , otherwise normal exam. No biopsies -CT abdomen pelvis shows 1.7cm thick pericardial effusion and gastric inflammation, R inguinal -FOBT negative -observe H&H -protonix 40mg daily #Black stools- low suspicion for melena. -FOBT neg x1 with stable Hgb. no repeat episodes. -will cont to monitor here -monitor H/H #Pericardial effusion- seen on CT. -echo shows small pericardial efussion <1cm and no signs of cardiac tamponade #Anemia: stable, hgb is at current baseline -monitor H&H, transfuse if hgb < 7 #LUCY on CKD stage V: cre 4.9...Cr today 3.9, which is slightly elevated from baseline. Follows w/ Dr. Reis outpt. Has declined HD in the past. no need for emergent HD at this time. -monitor BUN/Cre -hold fluids for now -continue lasix -c/w sevelamer -hold valsartan due to kidney function? #CHF: chronic -continue lasix #DM: chronic controlled. -ISS -BGMs #COPD: chronic. on home O2 -Advair, albuterol, trelegy #Hypertension -cont home meds -hold valsartan? #Hyperlipidemia: stable -continue rosuvastatin #FEN -no fluids -replete lytes prn -renal diet low salt low fat #Prophylaxis -SCDs, start hep sq if Hgb remains stable #Disposition -medsurg Visit type - Emergency Visit Emergency Visit: Yes ED Registration Date: 10/09/17 Care time: The patient presented to the Emergency Department on the above date and was hospitalized for further evaluation of their emergent condition. - New Patient This patient is new to me today: Yes Date on this admission: 10/10/17 - Critical Care Critical Care patient: No
[2017-10-10] MEDS ORDERED: ACETAMINOPHEN 325 MG TABLET (FP) PO SCH (21:30)
[2017-10-10] MEDS ORDERED: ACETAMINOPHEN 325 MG TABLET (FP) PO ONE (21:30)
[2017-10-10] MEDS: ROSUVASTATIN CA 20 MG TABLET (FP) PO SCH (21:38)
[2017-10-10] MEDS: PREGABALIN 25 MG CAPSULE PO SCH (21:39)
[2017-10-10] MEDS ORDERED: INSULIN (NOVOLOG) ASPART 100 UNITS/ML 10ML VIAL ONE (21:43)
[2017-10-10] MEDS ORDERED: MELATONIN 5 MG TABLETS PO ONE (22:15)
[2017-10-11] MEDS: INSULIN SLIDING SCALE (NOVOLOG) 1 VIAL SQ SCH ×4 (06:42→21:56)
[2017-10-11 07:58] LABS: BASO % 0.9 % (0-2.0); EOS % 2.2 % (0-4.5); HEMATOCRIT 28.7 % (32.4-45.2); HEMOGLOBIN 9.5 GM/dL (10.7-15.3); LYMPH % 28.7 % (8-40); MCH 26.5 pg (25.7-33.7); MCHC 33.1 g/dl (32.0-36.0); MEAN CELL VOLUME 80.2 fl (80-96); MEAN PLT VOLUME 9.1 fl (7.5-11.1); MONO % 8.1 % (3.8-10.2); NEUT % 60.1 % (42.8-82.8); PLATELET COUNT 207 K/MM3 (134-434); RBC 3.58 M/mm3 (3.60-5.2); RDW 16.5 % (11.6-15.6); WHITE BLOOD COUNT 4.3 K/mm3 (4.0-10.0)
[2017-10-11 08:03] LABS: ALBUMIN 3.7 g/dl (3.4-5.0); ANION GAP 6 (8-16); BLOOD UREA NITROGEN 34 mg/dL (7-18); CHLORIDE 107 mmol/L (98-107); CO2 32 mmol/L (21-32); GLUCOSE,RANDOM 81 mg/dL (74-106); MAGNESIUM 2.1 mg/dL (1.8-2.4); POTASSIUM 3.6 mmol/L (3.5-5.1); SGOT/AST 19 U/L (15-37); SGPT/ALT 19 U/L (12-78); SODIUM 145 mmol/L (136-145)
[2017-10-11 08:06] LABS: ALK PHOS 56 U/L (45-117); CREATININE 4.2 mg/dL (0.55-1.02); TOT PROT 6.8 g/dl (6.4-8.2)
[2017-10-11] MEDS: SEVELAMER CARBONATE 800 MG TAB (FP) PO SCH ×3 (10:06→17:57)
[2017-10-11] MEDS: FUROSEMIDE 40 MG TABLET (FP) PO SCH (10:06)
[2017-10-11] MEDS: PANTOPRAZOLE 40 MG TABLET (FP) PO SCH (10:06)
[2017-10-11] MEDS: OXYBUTYNIN CHLORIDE 5 MG TABLET PO SCH (10:06)
[2017-10-11] MEDS: amLODIPine BESYLATE 10 MG TABLET (FP) PO SCH (10:06)
[2017-10-11] MEDS: hydrALAZINE HCL 25 MG TABLET (FP) PO SCH ×3 (10:07→18:00)
[2017-10-11] MEDS: FLUTICASONE/SALMETEROL 100 MCG/50 MCG DISKUS IH SCH ×2 (10:16→21:47)
[2017-10-11] MEDS ORDERED: PT OWN MED DRAWER 7, Y5N ONE ×2 (10:19→18:12)
[2017-10-11] MEDS: ISOSORBIDE DINITRATE 20 MG TABLET (FP) PO SCH ×3 (10:21→18:00)
--- NOTE | 2017-10-11 11:00 | PN ---
Progress Note (short form) - Note Progress Note: RENAL Pt is awake and alert speaks very little moldovan complains of back pain and asthma nurse speaks czech and translates Last Vital Signs Temp Pulse Resp BP Pulse Ox 98.2 F 85 20 138/65 98 10/11/17 06:00 10/11/17 06:00 10/11/17 06:00 10/11/17 06:00 10/10/17 21:52 lungs crackles cvs s1s2 rr abd soft ext no edema neuro awake, answers questions CBC, BMP 10/11/17 06:00 10/11/17 06:00 Current Medications Generic Name Dose Route Start Last Admin Trade Name Shubham PRN Reason Stop Dose Admin Amlodipine Besylate 10 mg 10/09/17 10:00 10/11/17 10:06 Norvasc - PO 10 mg DAILY [facility] Administration Furosemide 80 mg 10/09/17 10:00 10/11/17 10:06 Lasix - PO 80 mg DAILY [facility] Administration Hydralazine HCl 37.5 mg 10/09/17 08:00 10/11/17 10:07 Apresoline - PO 37.5 mg TIDISORDIL [facility] Administration Insulin Aspart 1 vial 10/09/17 07:00 10/11/17 06:42 Novolog Vial Sliding Scale - SQ Not Given ACHS [facility] Protocol Isosorbide Dinitrate 20 mg 10/09/17 08:00 10/11/17 10:21 Isordil - PO 20 mg TIDISORDIL [facility] Administration Metoprolol Succinate 50 mg 10/09/17 10:00 10/11/17 10:06 Toprol Xl - PO 50 mg DAILY [facility] Administration Non-Formulary Medication 1 each 10/09/17 10:00 Cyclosporine [Restasis] OP DAILY [facility] Non-Formulary Medication 1 each 10/09/17 10:00 Fluticasone/Umeclidin/Vilanter [Trelegy Ellipta 100-62.5-25] IH DAILY [facility] Non-Formulary Medication 1.25 mg 10/09/17 04:45 10/09/17 06:40 Levalbuterol Hcl [Levalbuterol Hcl] IH Not Given Q8H [facility] Oxybutynin Chloride 5 mg 10/09/17 10:00 10/11/17 10:06 Ditropan - PO 5 mg DAILY [facility] Administration Pantoprazole Sodium 40 mg 10/09/17 10:00 10/11/17 10:06 Protonix - PO 40 mg DAILY [facility] Administration Pregabalin 75 mg 10/09/17 22:00 10/10/17 21:39 Lyrica - PO 75 mg HS [facility] Administration Rosuvastatin Calcium 20 mg 10/09/17 22:00 10/10/17 21:38 Crestor - PO 20 mg HS [facility] Administration Fluticasone/Salmeterol 1 puff 10/09/17 10:00 10/11/17 10:16 Advair 100mcg/50mcg - IH 1 puff BID [facility] Administration Sevelamer Carbonate 800 mg 10/09/17 17:30 10/11/17 10:06 Renvela - PO 800 mg TIDCM [facility] Administration Impression 1. CKD 2. HTN 3. HLD 4. COPD 5. DM 6. pos heb b core 7. abd pain 8 chf- probable diastolic dysf Plan - av access as outpt - renal diet - avoid nsaids - avoid nephrotoxins - lasix may have helped her kidney function since she had chf- continue but hold if creat continues to rise MV
[2017-10-11] MEDS: oxyCODONE HCL 5 MG TABLET PO PRN (18:00)
--- NOTE | 2017-10-11 20:26 | PN ---
Progress Note (short form) - Note Progress Note: comfortable with no acute distress. Vital Signs Temperature 98.5 F 10/11/17 18:46 Pulse Rate 78 10/11/17 18:46 Respiratory Rate 20 10/11/17 18:46 Blood Pressure 134/61 10/11/17 18:46 O2 Sat by Pulse Oximetry (%) 98 10/10/17 21:52 CV S1 S2 heart sounds distant. no JVD Lungs CTA B/L no wheezing/rales/rhonchi Abdomen soft slightly distended. dull to percussion. obese Extremities no pedal edema CBCD WBC 4.3 K/mm3 (4.0-10.0) 10/11/17 06:00 RBC 3.58 M/mm3 (3.60-5.2) L 10/11/17 06:00 Hgb 9.5 GM/dL (10.7-15.3) L 10/11/17 06:00 Hct 28.7 % (32.4-45.2) L 10/11/17 06:00 MCV 80.2 fl (80-96) 10/11/17 06:00 MCHC 33.1 g/dl (32.0-36.0) 10/11/17 06:00 RDW 16.5 % (11.6-15.6) H 10/11/17 06:00 Plt Count 207 K/MM3 (134-434) 10/11/17 06:00 MPV 9.1 fl (7.5-11.1) 10/11/17 06:00 CMP Sodium 145 mmol/L (136-145) 10/11/17 06:00 Potassium 3.6 mmol/L (3.5-5.1) 10/11/17 06:00 Chloride 107 mmol/L (98-107) 10/11/17 06:00 Carbon Dioxide 32 mmol/L (21-32) 10/11/17 06:00 Anion Gap 6 (8-16) L 10/11/17 06:00 BUN 34 mg/dL (7-18) H 10/11/17 06:00 Creatinine 4.2 mg/dL (0.55-1.02) H 10/11/17 06:00 Creat Clearance w eGFR 10.01 (>60) 10/11/17 06:00 Random Glucose 81 mg/dL (74-106) 10/11/17 06:00 Calcium 9.0 mg/dL (8.5-10.1) 10/11/17 06:00 Total Bilirubin 1.0 mg/dL (0.2-1.0) 10/11/17 06:00 AST 19 U/L (15-37) 10/11/17 06:00 ALT 19 U/L (12-78) 10/11/17 06:00 Alkaline Phosphatase 56 U/L (45-117) 10/11/17 06:00 Total Protein 6.8 g/dl (6.4-8.2) 10/11/17 06:00 Albumin 3.7 g/dl (3.4-5.0) 10/11/17 06:00 CARDIAC ENZYMES Creatine Kinase 228 IU/L (26-192) H 10/08/17 20:30 Troponin I < 0.02 ng/ml (0.00-0.05) 10/08/17 20:30 Current Medications Generic Name Dose Route Start Last Admin Trade Name Shubham PRN Reason Stop Dose Admin Amlodipine Besylate 10 mg 10/09/17 10:00 10/11/17 10:06 Norvasc - PO 10 mg DAILY [facility] Administration Furosemide 80 mg 10/09/17 10:00 10/11/17 10:06 Lasix - PO 80 mg DAILY [facility] Administration Hydralazine HCl 37.5 mg 10/09/17 08:00 10/11/17 18:00 Apresoline - PO 37.5 mg TIDISORDIL [facility] Administration Insulin Aspart 1 vial 10/09/17 07:00 10/11/17 17:57 Novolog Vial Sliding Scale - SQ Not Given ACHS [facility] Protocol Isosorbide Dinitrate 20 mg 10/09/17 08:00 10/11/17 18:00 Isordil - PO Not Given TIDISORDIL [facility] Metoprolol Succinate 50 mg 10/09/17 10:00 10/11/17 10:06 Toprol Xl - PO 50 mg DAILY [facility] Administration Oxycodone HCl 2.5 mg 10/11/17 17:35 10/11/17 18:00 Roxicodone - PO 2.5 mg Q12H PRN Administration PAIN LEVEL 6-10 Pantoprazole Sodium 40 mg 10/09/17 10:00 10/11/17 10:06 Protonix - PO 40 mg DAILY [facility] Administration Pregabalin 75 mg 10/09/17 22:00 10/10/17 21:39 Lyrica - PO 75 mg HS [facility] Administration Rosuvastatin Calcium 20 mg 10/09/17 22:00 10/10/17 21:38 Crestor - PO 20 mg HS [facility] Administration Fluticasone/Salmeterol 1 puff 10/09/17 10:00 10/11/17 10:16 Advair 100mcg/50mcg - IH 1 puff BID [facility] Administration Sevelamer Carbonate 800 mg 10/09/17 17:30 10/11/17 17:57 Renvela - PO 800 mg TIDCM [facility] Administration Home Medications Medication Instructions Recorded Albuterol Sulfate Inhaler - 1 - 2 inh PO Q6H 05/03/17 [Ventolin HFA Inhaler -] Amlodipine Besylate [Norvasc -] 10 mg PO DAILY 05/03/17 Oxybutynin Chloride 5 mg PO BID 05/03/17 Pregabalin [Lyrica] 75 mg PO HS 05/03/17 Sevelamer Carbonate [Renvela -] 800 mg PO TIDCM #90 tab 05/08/17 Calcitriol [Rocaltrol] 0.25 mcg PO ASDIR 10/09/17 Cyclosporine [Restasis] 1 each OP BID 10/09/17 Esomeprazole Magnesium [Nexium 20 mg PO DAILY 10/09/17 24Hr] Fluticasone/Salmeterol [Advair 1 each IH Q12H 10/09/17 250-50 Diskus] Fluticasone/Umeclidin/Vilanter 1 each IH DAILY 10/09/17 [Trelegy Ellipta 100-62.5-25] Furosemide [Lasix] 80 mg PO DAILY 10/09/17 Insulin Lispro [Humalog] 5 unit SQ TID 10/09/17 Levalbuterol HCl 1.25 mg IH Q8H 10/09/17 Metoprolol Succinate [Toprol Xl] 50 mg PO DAILY 10/09/17 Rosuvastatin Calcium [Crestor] 20 mg PO DAILY 10/09/17 Tramadol HCl 50 mg PO BID 10/09/17 Cyclosporine [Restasis] 1 drop OP BID 10/10/17 Isosorbibe Dinit/Hydralazine 37.5 mg PO TID 10/10/17 [Bidil Tablet] Linaclotide [Linzess] 290 mcg PO DAILY 10/10/17 ASSESSMENT AND PLAN: 87yo F wtih PMH COPD on home O2, HTN, CKD stage V presented to the ER after 4 episodes of black stools iwth abdominal pain # Abdominal pain most likely from constipation .s/p EGD with normal result. thickened gastric lining in setting of weight loss s/p EGD with normal result . # Pericardial effusion- seen on CT. no sign of unstability # HTN- contorlled continue home meds # CKD stage V- pt is getting prepped as outpatient for AV graft placement. no need for emergent HD at this time. cont renvela # COPD continue home O2 # DM- controlled. cont medication DVT ppx- SCD. will start hep sq if Hgb remains stable if dtsble dc in am Visit type - Emergency Visit Emergency Visit: Yes ED Registration Date: 10/09/17 Care time: The patient presented to the Emergency Department on the above date and was hospitalized for further evaluation of their emergent condition. - New Patient This patient is new to me today: No - Critical Care Critical Care patient: No - Discharge Referral Referred to [facility] No
[2017-10-11] MEDS: PREGABALIN 25 MG CAPSULE PO SCH (21:48)
[2017-10-11] MEDS: ROSUVASTATIN CA 20 MG TABLET (FP) PO SCH (21:48)
[2017-10-11 22:17] LABS: URINE APPEARANCE CLEAR; URINE BILIRUBIN NEGATIVE (<2.0 mg/dL); URINE COLOR STRAW; URINE GLUCOSE (UA) NEGATIVE (NEGATIVE); URINE KETONE NEGATIVE (NEGATIVE); URINE LEUK ESTERASE NEGATIVE (NEGATIVE); URINE NITRITE NEGATIVE (NEGATIVE); URINE UROBILINOGEN NEGATIVE mg/dL (0.2-1.0)
[2017-10-11 22:33] LABS: URINE PROTEIN 2+ (NEGATIVE)
[2017-10-11 22:35] LABS: EPI CELLS RARE /HPF (FEW); URINE MUCUS RARE
[2017-10-12] MEDS ORDERED: PT OWN MED DRAWER 7, Y5N ONE (01:58)
[2017-10-12] MEDS: INSULIN SLIDING SCALE (NOVOLOG) 1 VIAL SQ SCH ×4 (06:57→23:11)
[2017-10-12] MEDS: hydrALAZINE HCL 25 MG TABLET (FP) PO SCH ×3 (08:50→18:00)
[2017-10-12] MEDS: FUROSEMIDE 40 MG TABLET (FP) PO SCH ×2 (08:51→12:14)
[2017-10-12] MEDS: amLODIPine BESYLATE 10 MG TABLET (FP) PO SCH ×2 (08:51→12:15)
[2017-10-12] MEDS: SEVELAMER CARBONATE 800 MG TAB (FP) PO SCH ×3 (08:51→16:44)
[2017-10-12] MEDS: oxyCODONE HCL 5 MG TABLET PO PRN ×2 (08:52→16:43)
[2017-10-12] MEDS: PANTOPRAZOLE 40 MG TABLET (FP) PO SCH ×2 (08:53→12:15)
[2017-10-12] MEDS: ISOSORBIDE DINITRATE 20 MG TABLET (FP) PO SCH ×3 (08:54→18:01)
--- NOTE | 2017-10-12 11:13 | PN ---
Progress Note (short form) - Note Progress Note: RENAL Pt is awake and alert speaks very little venezuelan seen with daughter who says she had lower back pain, but is better. Has burning sensation Last Vital Signs Temp Pulse Resp BP Pulse Ox 84 F L 84 20 156/74 98 10/12/17 05:41 10/12/17 05:41 10/12/17 05:41 10/12/17 05:41 10/10/17 21:52 sitting up in bed lungs clear cvs s1s2 rr abd soft ext no edema neuro awake, answers questions CBC, BMP 10/11/17 06:00 10/11/17 06:00 Current Medications Generic Name Dose Route Start Last Admin Trade Name Freq PRN Reason Stop Dose Admin Amlodipine Besylate 10 mg 10/09/17 10:00 10/12/17 08:51 Norvasc - PO 10 mg DAILY [facility] Administration Furosemide 80 mg 10/09/17 10:00 10/12/17 08:51 Lasix - PO 80 mg DAILY [facility] Administration Hydralazine HCl 37.5 mg 10/09/17 08:00 10/12/17 08:50 Apresoline - PO 37.5 mg TIDISORDIL [facility] Administration Insulin Aspart 1 vial 10/09/17 07:00 10/12/17 06:57 Novolog Vial Sliding Scale - SQ Not Given ACHS [facility] Protocol Isosorbide Dinitrate 20 mg 10/09/17 08:00 10/12/17 08:54 Isordil - PO 20 mg TIDISORDIL [facility] Administration Metoprolol Succinate 50 mg 10/09/17 10:00 10/12/17 08:52 Toprol Xl - PO 50 mg DAILY [facility] Administration Oxycodone HCl 2.5 mg 10/11/17 17:35 10/12/17 08:52 Roxicodone - PO 2.5 mg Q12H PRN Administration PAIN LEVEL 6-10 Pantoprazole Sodium 40 mg 10/09/17 10:00 10/12/17 08:53 Protonix - PO 40 mg DAILY [facility] Administration Pregabalin 75 mg 10/09/17 22:00 10/11/17 21:48 Lyrica - PO 75 mg HS [facility] Administration Rosuvastatin Calcium 20 mg 10/09/17 22:00 10/11/17 21:48 Crestor - PO 20 mg HS [facility] Administration Fluticasone/Salmeterol 1 puff 10/09/17 10:00 10/11/17 21:47 Advair 100mcg/50mcg - IH 1 puff BID [facility] Administration Sevelamer Carbonate 800 mg 10/09/17 17:30 10/12/17 08:51 Renvela - PO 800 mg TIDCM [facility] Administration Impression 1. CKD 2. HTN 3. HLD 4. COPD 5. DM 6. pos heb b core 7. abd pain 8 chf- probable diastolic dysf Plan - av access as outpt - renal diet - avoid nsaids - avoid nephrotoxins - lasix may have helped her kidney function since she had chf- continue but hold if creat continues to rise -follow todays labs MV
[2017-10-12] MEDS ORDERED: GLYCERIN 1 RECTAL SUPPOSITORY, ADULT PR ONE (11:29)
[2017-10-12] MEDS: FLUTICASONE/SALMETEROL 100 MCG/50 MCG DISKUS IH SCH ×2 (12:13→23:01)
--- NOTE | 2017-10-12 12:52 | PN ---
Physical Exam: SUBJECTIVE: Patient seen and examined at bedside.tolerating food well. still w/ abdominal pain and c/o of burning w/ urination but has not noticed anymore dark stool since arrival to the hospital. denies fever, chills, CP, SOB, N/V/D, urinary sxs OBJECTIVE: Vital Signs Period Temp Pulse Resp BP Sys/Betancourt Pulse Ox Last 24 Hr 84 F-98.8 F 78-111 20-20 113-156/61-75 GENERAL: A&Ox3, no acute distress. obese EYES: PERRLA, EOMI ENT: MMM NECK: No JVD LUNGS: b/l crackles HEART: RRR, S1 S2 distant heart sounds. no m/r/g ABDOMEN: Soft, mild TTP L side and suprapubic ND, BS present MUSCULOSKELETAL: No CVA Tenderness EXTREMITIES: 2+ pulses, no edema. NEUROLOGICAL: Cranial nerves II-XII intact. sensation and strength grossly intact Laboratory Results - last 24 hr 10/11/17 10/11/17 10/11/17 12:35 20:15 21:50 POC Glucometer 155 124 Urine Color Straw Urine Appearance Clear Urine pH 6.0 Ur Specific [place] 1.010 Urine Protein 2+ H Urine Glucose (UA) Negative Urine Ketones Negative Urine Blood Negative Urine Nitrite Negative Urine Bilirubin Negative Urine Urobilinogen Negative Ur Leukocyte Esterase Negative Urine WBC (Auto) 1 Urine RBC (Auto) 1 Ur Epithelial Cells Rare Urine Mucus Rare 10/12/17 10/12/17 06:55 12:10 POC Glucometer 93 159 Urine Color Urine Appearance Urine pH Ur Specific [place] Urine Protein Urine Glucose (UA) Urine Ketones Urine Blood Urine Nitrite Urine Bilirubin Urine Urobilinogen Ur Leukocyte Esterase Urine WBC (Auto) Urine RBC (Auto) Ur Epithelial Cells Urine Mucus Active Medications Generic Name Dose Route Start Last Admin Trade Name Freq PRN Reason Stop Dose Admin Amlodipine Besylate 10 mg 10/09/17 10:00 10/12/17 12:15 Norvasc - PO Not Given DAILY [facility] Docusate Sodium 300 mg 10/12/17 22:00 Colace - PO HS [facility] Furosemide 80 mg 10/09/17 10:00 10/12/17 12:14 Lasix - PO Not Given DAILY [facility] Hydralazine HCl 37.5 mg 10/09/17 08:00 10/12/17 08:50 Apresoline - PO 37.5 mg TIDISORDIL [facility] Administration Insulin Aspart 1 vial 10/09/17 07:00 10/12/17 12:16 Novolog Vial Sliding Scale - SQ Not Given ACHS [facility] Protocol Isosorbide Dinitrate 20 mg 10/09/17 08:00 10/12/17 08:54 Isordil - PO 20 mg TIDISORDIL [facility] Administration Metoprolol Succinate 50 mg 10/09/17 10:00 10/12/17 12:16 Toprol Xl - PO Not Given DAILY [facility] Oxycodone HCl 2.5 mg 10/11/17 17:35 10/12/17 08:52 Roxicodone - PO 2.5 mg Q12H PRN Administration PAIN LEVEL 6-10 Pantoprazole Sodium 40 mg 10/09/17 10:00 10/12/17 12:15 Protonix - PO 40 mg DAILY [facility] Administration Polyethylene Glycol 17 gm 10/12/17 11:30 Miralax (For Daily Use) - PO BID [facility] Pregabalin 75 mg 10/09/17 22:00 10/11/17 21:48 Lyrica - PO 75 mg HS [facility] Administration Rosuvastatin Calcium 20 mg 10/09/17 22:00 10/11/17 21:48 Crestor - PO 20 mg HS [facility] Administration Fluticasone/Salmeterol 1 puff 10/09/17 10:00 10/12/17 12:13 Advair 100mcg/50mcg - IH 1 puff BID [facility] Administration Sevelamer Carbonate 800 mg 10/09/17 17:30 10/12/17 12:16 Renvela - PO 800 mg TIDCM [facility] Administration ASSESSMENT/PLAN: 87 year old female with a hx of COPD (2L O2 at home), asthma, hypertension, CHF , renal stones, CKD stage V (nearing ESRD) presented to the hospital with epigastric abdominal pain and 4 episodes of black stools #Epigastric Abdominal Pain: resolved currently during exam, daughter reports latest BM being dark brown - likely from constipation however concerning for thickened gastric lining in setting of weight loss -GI consult, Dr. Noland -renal diet -EGD was normal. -lipase wnl -recent EGD was done: Mild gastritis in the antrum and esophagitis at the GEJ , otherwise normal exam. No biopsies -CT abdomen pelvis shows 1.7cm thick pericardial effusion and gastric inflammation, R inguinal -FOBT negative -observe H&H -protonix 40mg daily -aggressive bowel regimen #dysuria -UA neg -Ucx pending -held oxybut #Black stools- low suspicion for melena. -FOBT neg x1 with stable Hgb. no repeat episodes. -will cont to monitor here -monitor H/H #Pericardial effusion- seen on CT. -echo shows small pericardial efussion <1cm and no signs of cardiac tamponade #Anemia: stable, hgb is at current baseline -monitor H&H, transfuse if hgb < 7 #LUCY on CKD stage V: cre 4.9...Cr today 3.9, which is slightly elevated from baseline. Follows w/ Dr. Chato dobson. pt is getting prepped as outpatient for AV graft placement. no need for emergent HD at this time. -monitor BUN/Cre -hold fluids for now -continue lasix -c/w sevelamer -hold valsartan due to kidney function? #CHF: chronic -continue lasix #DM: chronic controlled. -ISS -BGMs #COPD: chronic. on home O2 -Advair, albuterol, trelegy #Hypertension -cont home meds -hold valsartan? #Hyperlipidemia: stable -continue rosuvastatin #FEN -no fluids -replete lytes prn -renal diet low salt low fat #Prophylaxis -SCDs, start hep sq if Hgb remains stable #Disposition -medsurg Visit type - Emergency Visit Emergency Visit: Yes ED Registration Date: 10/09/17 Care time: The patient presented to the Emergency Department on the above date and was hospitalized for further evaluation of their emergent condition. - New Patient This patient is new to me today: Yes Date on this admission: 10/12/17 - Critical Care Critical Care patient: No
[2017-10-12] MEDS: POLYETHYLENE GLYCOL 3350 119 GM BTL PO SCH ×2 (13:36→23:05)
[2017-10-12] MEDS ORDERED: oxyCODONE HCL 5 MG TABLET PO ONE (17:00)
--- NOTE | 2017-10-12 19:03 | PN ---
Teaching Attending Note Name of Resident: Dk Sol ATTENDING PHYSICIAN STATEMENT I saw and evaluated the patient. I reviewed the resident's note and discussed the case with the resident. I agree with the resident's findings and plan as documented. SUBJECTIVE: comfortable with no new changes OBJECTIVE: Vital Signs Temperature 98.4 F 10/12/17 18:59 Pulse Rate 75 10/12/17 18:59 Respiratory Rate 20 10/12/17 18:59 Blood Pressure 121/63 10/12/17 18:59 O2 Sat by Pulse Oximetry (%) 98 10/10/17 21:52 CBCD WBC 4.3 K/mm3 (4.0-10.0) 10/11/17 06:00 RBC 3.58 M/mm3 (3.60-5.2) L 10/11/17 06:00 Hgb 9.5 GM/dL (10.7-15.3) L 10/11/17 06:00 Hct 28.7 % (32.4-45.2) L 10/11/17 06:00 MCV 80.2 fl (80-96) 10/11/17 06:00 MCHC 33.1 g/dl (32.0-36.0) 10/11/17 06:00 RDW 16.5 % (11.6-15.6) H 10/11/17 06:00 Plt Count 207 K/MM3 (134-434) 10/11/17 06:00 MPV 9.1 fl (7.5-11.1) 10/11/17 06:00 CMP Sodium 145 mmol/L (136-145) 10/11/17 06:00 Potassium 3.6 mmol/L (3.5-5.1) 10/11/17 06:00 Chloride 107 mmol/L (98-107) 10/11/17 06:00 Carbon Dioxide 32 mmol/L (21-32) 10/11/17 06:00 Anion Gap 6 (8-16) L 10/11/17 06:00 BUN 34 mg/dL (7-18) H 10/11/17 06:00 Creatinine 4.2 mg/dL (0.55-1.02) H 10/11/17 06:00 Creat Clearance w eGFR 10.01 (>60) 10/11/17 06:00 Random Glucose 81 mg/dL (74-106) 10/11/17 06:00 Calcium 9.0 mg/dL (8.5-10.1) 10/11/17 06:00 Total Bilirubin 1.0 mg/dL (0.2-1.0) 10/11/17 06:00 AST 19 U/L (15-37) 10/11/17 06:00 ALT 19 U/L (12-78) 10/11/17 06:00 Alkaline Phosphatase 56 U/L (45-117) 10/11/17 06:00 Total Protein 6.8 g/dl (6.4-8.2) 10/11/17 06:00 Albumin 3.7 g/dl (3.4-5.0) 10/11/17 06:00 CARDIAC ENZYMES Creatine Kinase 228 IU/L (26-192) H 10/08/17 20:30 Troponin I < 0.02 ng/ml (0.00-0.05) 10/08/17 20:30 Current Medications Generic Name Dose Route Start Last Admin Trade Name Freq PRN Reason Stop Dose Admin Amlodipine Besylate 10 mg 10/09/17 10:00 10/12/17 12:15 Norvasc - PO Not Given DAILY [facility] Docusate Sodium 300 mg 10/12/17 22:00 Colace - PO HS [facility] Furosemide 80 mg 10/09/17 10:00 10/12/17 12:14 Lasix - PO Not Given DAILY [facility] Hydralazine HCl 37.5 mg 10/09/17 08:00 10/12/17 18:00 Apresoline - PO 37.5 mg TIDISORDIL [facility] Administration Insulin Aspart 1 vial 10/09/17 07:00 10/12/17 17:58 Novolog Vial Sliding Scale - SQ Not Given ACHS [facility] Protocol Isosorbide Dinitrate 20 mg 10/09/17 08:00 10/12/17 18:01 Isordil - PO 20 mg TIDISORDIL [facility] Administration Metoprolol Succinate 50 mg 10/09/17 10:00 10/12/17 12:16 Toprol Xl - PO Not Given DAILY [facility] Oxycodone HCl 2.5 mg 10/11/17 17:35 10/12/17 16:43 Roxicodone - PO 2.5 mg Q12H PRN Administration PAIN LEVEL 6-10 Pantoprazole Sodium 40 mg 10/09/17 10:00 10/12/17 12:15 Protonix - PO 40 mg DAILY [facility] Administration Polyethylene Glycol 17 gm 10/12/17 11:30 10/12/17 13:36 Miralax (For Daily Use) - PO 17 gm BID [facility] Administration Pregabalin 75 mg 10/09/17 22:00 10/11/17 21:48 Lyrica - PO 75 mg HS [facility] Administration Rosuvastatin Calcium 20 mg 10/09/17 22:00 10/11/17 21:48 Crestor - PO 20 mg HS [facility] Administration Fluticasone/Salmeterol 1 puff 10/09/17 10:00 10/12/17 12:13 Advair 100mcg/50mcg - IH 1 puff BID [facility] Administration Sevelamer Carbonate 800 mg 10/09/17 17:30 10/12/17 16:44 Renvela - PO 800 mg TIDCM [facility] Administration Home Medications Medication Instructions Recorded Albuterol Sulfate Inhaler - 1 - 2 inh PO Q6H 05/03/17 [Ventolin HFA Inhaler -] Amlodipine Besylate [Norvasc -] 10 mg PO DAILY 05/03/17 Oxybutynin Chloride 5 mg PO BID 05/03/17 Pregabalin [Lyrica] 75 mg PO HS 05/03/17 Sevelamer Carbonate [Renvela -] 800 mg PO TIDCM #90 tab 05/08/17 Calcitriol [Rocaltrol] 0.25 mcg PO ASDIR 10/09/17 Cyclosporine [Restasis] 1 each OP BID 10/09/17 Esomeprazole Magnesium [Nexium 20 mg PO DAILY 10/09/17 24Hr] Fluticasone/Salmeterol [Advair 1 each IH Q12H 10/09/17 250-50 Diskus] Fluticasone/Umeclidin/Vilanter 1 each IH DAILY 10/09/17 [Trelegy Ellipta 100-62.5-25] Furosemide [Lasix] 80 mg PO DAILY 10/09/17 Insulin Lispro [Humalog] 5 unit SQ TID 10/09/17 Levalbuterol HCl 1.25 mg IH Q8H 10/09/17 Metoprolol Succinate [Toprol Xl] 50 mg PO DAILY 08/09/18 Rosuvastatin Calcium [Crestor] 20 mg PO DAILY 10/09/17 Tramadol HCl 50 mg PO BID 10/09/17 Cyclosporine [Restasis] 1 drop OP BID 10/10/17 Isosorbibe Dinit/Hydralazine 37.5 mg PO TID 10/10/17 [Bidil Tablet] Linaclotide [Linzess] 290 mcg PO DAILY 10/10/17 PE: per resident's note ASSESSMENT AND PLAN: 87yo F wtih PMH COPD on home O2, HTN, CKD stage V presented to the ER after 4 episodes of black stools iwth abdominal pain # Abdominal pain most likely from constipation .s/p EGD with normal result. thickened gastric lining in setting of weight loss s/p EGD with normal result . # Pericardial effusion- seen on CT. no sign of unstability # HTN- contorlled continue home meds # CKD stage V- pt is getting prepped as outpatient for AV graft placement. no need for emergent HD at this time. cont renvela # COPD continue home O2 # DM- controlled. cont medication DVT ppx- SCD. will start hep sq if Hgb remains stable if stable dc in am
[2017-10-12] MEDS ORDERED: DOCUSATE SODIUM 100 MG CAPSULE (FP) PO SCH (22:00)
[2017-10-12] MEDS: PREGABALIN 25 MG CAPSULE PO SCH (23:01)
[2017-10-12] MEDS: ROSUVASTATIN CA 20 MG TABLET (FP) PO SCH (23:02)
[2017-10-13] MEDS: INSULIN SLIDING SCALE (NOVOLOG) 1 VIAL SQ SCH ×3 (06:52→16:57)
[2017-10-13 07:35] LABS: BASO % 0.5 % (0-2.0); EOS % 2.5 % (0-4.5); HEMATOCRIT 28.5 % (32.4-45.2); HEMOGLOBIN 9.4 GM/dL (10.7-15.3); LYMPH % 24.7 % (8-40); MCH 26.5 pg (25.7-33.7); MEAN CELL VOLUME 80.4 fl (80-96); MEAN PLT VOLUME 8.9 fl (7.5-11.1); MONO % 7.2 % (3.8-10.2); NEUT % 65.1 % (42.8-82.8); PLATELET COUNT 196 K/MM3 (134-434); RBC 3.54 M/mm3 (3.60-5.2); RDW 16.5 % (11.6-15.6); WHITE BLOOD COUNT 5.9 K/mm3 (4.0-10.0)
[2017-10-13 08:03] LABS: ALBUMIN 3.9 g/dl (3.4-5.0); ALK PHOS 54 U/L (45-117); ANION GAP 8 (8-16); BILIRUBIN,TOTAL 0.8 mg/dL (0.2-1.0); BLOOD UREA NITROGEN 38 mg/dL (7-18); CALCIUM 9.2 mg/dL (8.5-10.1); CHLORIDE 107 mmol/L (98-107); CO2 30 mmol/L (21-32); CREATININE 4.6 mg/dL (0.55-1.02); GLUCOSE,RANDOM 94 mg/dL (74-106); PHOSPHOROUS 4.5 mg/dL (2.5-4.9); SGOT/AST 17 U/L (15-37); SGPT/ALT 18 U/L (12-78); SODIUM 145 mmol/L (136-145); TOT PROT 6.9 g/dl (6.4-8.2)
[2017-10-13] MEDS ORDERED: PT OWN MED DRAWER 7, Y5N ONE ×2 (09:10→18:47)
--- NOTE | 2017-10-13 09:25 | PN ---
Teaching Attending Note Name of Resident: Dk Sol ATTENDING PHYSICIAN STATEMENT I saw and evaluated the patient. I reviewed the resident's note and discussed the case with the resident. I agree with the resident's findings and plan as documented. SUBJECTIVE: Patient is comfortable, family member at bedside. OBJECTIVE: Vital Signs Temperature 98.2 F 10/13/17 06:00 Pulse Rate 88 10/13/17 06:00 Respiratory Rate 20 10/13/17 06:00 Blood Pressure 157/85 10/13/17 06:00 O2 Sat by Pulse Oximetry (%) 98 10/10/17 21:52 CBCD WBC 5.9 K/mm3 (4.0-10.0) 10/13/17 06:15 RBC 3.54 M/mm3 (3.60-5.2) L 10/13/17 06:15 Hgb 9.4 GM/dL (10.7-15.3) L 10/13/17 06:15 Hct 28.5 % (32.4-45.2) L 10/13/17 06:15 MCV 80.4 fl (80-96) 10/13/17 06:15 MCHC 33.0 g/dl (32.0-36.0) 10/13/17 06:15 RDW 16.5 % (11.6-15.6) H 10/13/17 06:15 Plt Count 196 K/MM3 (134-434) 10/13/17 06:15 MPV 8.9 fl (7.5-11.1) 10/13/17 06:15 CMP Sodium 145 mmol/L (136-145) 10/13/17 06:15 Potassium 4.0 mmol/L (3.5-5.1) 10/13/17 06:15 Chloride 107 mmol/L (98-107) 10/13/17 06:15 Carbon Dioxide 30 mmol/L (21-32) 10/13/17 06:15 Anion Gap 8 (8-16) 10/13/17 06:15 BUN 38 mg/dL (7-18) H 10/13/17 06:15 Creatinine 4.6 mg/dL (0.55-1.02) H 10/13/17 06:15 Creat Clearance w eGFR 9.01 (>60) 10/13/17 06:15 Random Glucose 94 mg/dL (74-106) 10/13/17 06:15 Calcium 9.2 mg/dL (8.5-10.1) 10/13/17 06:15 Total Bilirubin 0.8 mg/dL (0.2-1.0) 10/13/17 06:15 AST 17 U/L (15-37) 10/13/17 06:15 ALT 18 U/L (12-78) 10/13/17 06:15 Alkaline Phosphatase 54 U/L (45-117) 10/13/17 06:15 Total Protein 6.9 g/dl (6.4-8.2) 10/13/17 06:15 Albumin 3.9 g/dl (3.4-5.0) 10/13/17 06:15 CARDIAC ENZYMES Creatine Kinase 228 IU/L (26-192) H 10/08/17 20:30 Troponin I < 0.02 ng/ml (0.00-0.05) 10/08/17 20:30 Current Medications Generic Name Dose Route Start Last Admin Trade Name Shubham PRN Reason Stop Dose Admin Amlodipine Besylate 10 mg 10/09/17 10:00 10/12/17 12:15 Norvasc - PO Not Given DAILY [facility] Docusate Sodium 300 mg 10/12/17 22:00 10/12/17 23:01 Colace - PO 300 mg HS [facility] Administration Furosemide 80 mg 10/09/17 10:00 10/12/17 12:14 Lasix - PO Not Given DAILY [facility] Hydralazine HCl 37.5 mg 10/09/17 08:00 10/12/17 18:00 Apresoline - PO 37.5 mg TIDISORDIL [facility] Administration Insulin Aspart 1 vial 10/09/17 07:00 10/13/17 06:52 Novolog Vial Sliding Scale - SQ Not Given ACHS [facility] Protocol Isosorbide Dinitrate 20 mg 10/09/17 08:00 10/12/17 18:01 Isordil - PO 20 mg TIDISORDIL [facility] Administration Metoprolol Succinate 50 mg 10/09/17 10:00 10/12/17 12:16 Toprol Xl - PO Not Given DAILY [facility] Oxycodone HCl 2.5 mg 10/11/17 17:35 10/12/17 16:43 Roxicodone - PO 2.5 mg Q12H PRN Administration PAIN LEVEL 6-10 Pantoprazole Sodium 40 mg 10/09/17 10:00 10/12/17 12:15 Protonix - PO 40 mg DAILY [facility] Administration Polyethylene Glycol 17 gm 10/12/17 11:30 10/12/17 23:05 Miralax (For Daily Use) - PO 17 gm BID [facility] Administration Pregabalin 75 mg 10/09/17 22:00 10/12/17 23:01 Lyrica - PO 75 mg HS [facility] Administration Rosuvastatin Calcium 20 mg 10/09/17 22:00 10/12/17 23:02 Crestor - PO 20 mg HS [facility] Administration Fluticasone/Salmeterol 1 puff 10/09/17 10:00 10/12/17 23:01 Advair 100mcg/50mcg - IH 1 puff BID [facility] Administration Sevelamer Carbonate 800 mg 10/09/17 17:30 10/12/17 16:44 Renvela - PO 800 mg TIDCM [facility] Administration Home Medications Medication Instructions Recorded Albuterol Sulfate Inhaler - 1 - 2 inh PO Q6H 05/03/17 [Ventolin HFA Inhaler -] Amlodipine Besylate [Norvasc -] 10 mg PO DAILY 05/03/17 Oxybutynin Chloride 5 mg PO BID 05/03/17 Pregabalin [Lyrica] 75 mg PO HS 05/03/17 Sevelamer Carbonate [Renvela -] 800 mg PO TIDCM #90 tab 05/08/17 Calcitriol [Rocaltrol] 0.25 mcg PO ASDIR 10/09/17 Cyclosporine [Restasis] 1 each OP BID 10/09/17 Esomeprazole Magnesium [Nexium 20 mg PO DAILY 10/09/17 24Hr] Fluticasone/Salmeterol [Advair 1 each IH Q12H 10/09/17 250-50 Diskus] Fluticasone/Umeclidin/Vilanter 1 each IH DAILY 10/09/17 [Trelegy Ellipta 100-62.5-25] Furosemide [Lasix] 80 mg PO DAILY 10/09/17 Insulin Lispro [Humalog] 5 unit SQ TID 10/09/17 Levalbuterol HCl 1.25 mg IH Q8H 10/09/17 Metoprolol Succinate [Toprol Xl] 50 mg PO DAILY 10/09/17 Rosuvastatin Calcium [Crestor] 20 mg PO DAILY 10/09/17 Tramadol HCl 50 mg PO BID 10/09/17 Cyclosporine [Restasis] 1 drop OP BID 10/10/17 Isosorbibe Dinit/Hydralazine 37.5 mg PO TID 10/10/17 [Bidil Tablet] Linaclotide [Linzess] 290 mcg PO DAILY 10/10/17 PE: per resident's note ASSESSMENT AND PLAN: 87yo F wtih PMH COPD on home O2, HTN, CKD stage V presented to the ER after 4 episodes of black stools iwth abdominal pain # Acute abdominal pain most likely from constipation .s/p EGD with normal result. patient had Miralax and colace given, patient has a BM( small one) will discharge her home on Miralx and Colace 300mg hs # HTN- contorlled continue home meds # CKD stage V- pt is getting prepped as outpatient for AV graft placement. no need for emergent HD at this time. cont renvela, follow with Nephro for further care. # COPD continue home O2 # DM- controlled. cont medication discharge patient home. patient has an aid at home.
[2017-10-13] MEDS: FLUTICASONE/SALMETEROL 100 MCG/50 MCG DISKUS IH SCH (09:29)
[2017-10-13] MEDS: PANTOPRAZOLE 40 MG TABLET (FP) PO SCH (09:30)
[2017-10-13] MEDS: amLODIPine BESYLATE 10 MG TABLET (FP) PO SCH (09:30)
[2017-10-13] MEDS: SEVELAMER CARBONATE 800 MG TAB (FP) PO SCH ×3 (09:30→17:20)
[2017-10-13] MEDS: hydrALAZINE HCL 25 MG TABLET (FP) PO SCH ×3 (09:30→17:19)
[2017-10-13] MEDS: FUROSEMIDE 40 MG TABLET (FP) PO SCH ×2 (09:30→10:22)
[2017-10-13] MEDS: POLYETHYLENE GLYCOL 3350 119 GM BTL PO SCH (09:31)
[2017-10-13] MEDS: ISOSORBIDE DINITRATE 20 MG TABLET (FP) PO SCH ×3 (09:31→17:20)
--- NOTE | 2017-10-13 14:21 | PN ---
Progress Note, Physician History of Present Illness: Pt seen and examined at bedside. She appear comfortable. She denies shortness of breath. - Current Medication List Current Medications: Active Medications Amlodipine Besylate (Norvasc -) 10 mg PO DAILY [facility] Last Admin: 10/13/17 09:30 Dose: 10 mg Docusate Sodium (Colace -) 300 mg PO HS [facility] Last Admin: 10/12/17 23:01 Dose: 300 mg Furosemide (Lasix -) 80 mg PO DAILY [facility] Last Admin: 10/13/17 10:22 Dose: Not Given Hydralazine HCl (Apresoline -) 37.5 mg PO TIDISORDIL [facility] Last Admin: 10/13/17 09:30 Dose: 37.5 mg Insulin Aspart (Novolog Vial Sliding Scale -) 1 vial SQ ACHS [facility]; Protocol Last Admin: 10/13/17 11:52 Dose: Not Given Isosorbide Dinitrate (Isordil -) 20 mg PO TIDISORDIL [facility] Last Admin: 10/13/17 09:31 Dose: 20 mg Metoprolol Succinate (Toprol Xl -) 50 mg PO DAILY [facility] Last Admin: 10/13/17 09:30 Dose: 50 mg Oxycodone HCl (Roxicodone -) 2.5 mg PO Q12H PRN PRN Reason: PAIN LEVEL 6-10 Last Admin: 10/12/17 16:43 Dose: 2.5 mg Pantoprazole Sodium (Protonix -) 40 mg PO DAILY [facility] Last Admin: 10/13/17 09:30 Dose: 40 mg Polyethylene Glycol (Miralax (For Daily Use) -) 17 gm PO TID [facility] Pregabalin (Lyrica -) 75 mg PO [facility] Last Admin: 10/12/17 23:01 Dose: 75 mg Rosuvastatin Calcium (Crestor -) 20 mg PO [facility] Last Admin: 10/12/17 23:02 Dose: 20 mg Fluticasone/Salmeterol (Advair 100mcg/50mcg -) 1 puff IH BID [facility] Last Admin: 10/13/17 09:29 Dose: 1 puff Sevelamer Carbonate (Renvela -) 800 mg PO TIDCM [facility] Last Admin: 10/13/17 09:30 Dose: 800 mg - Objective Vital Signs: Vital Signs Temperature 98.6 F 10/13/17 10:00 Pulse Rate 83 10/13/17 10:00 Respiratory Rate 20 10/13/17 10:00 Blood Pressure 146/74 10/13/17 10:00 O2 Sat by Pulse Oximetry (%) 96 10/13/17 10:00 Constitutional: Yes: Calm Eyes: Yes: Conjunctiva Clear HENT: Yes: Atraumatic Cardiovascular: Yes: S1, S2 Respiratory: Yes: On Nasal O2 Gastrointestinal: Yes: Soft Genitourinary: Yes: WNL Musculoskeletal: Yes: WNL Edema: LLE: Trace, RLE: Trace Neurological: Yes: Oriented Psychiatric: Yes: Oriented Labs: CBC, BMP 10/13/17 06:15 10/13/17 06:15 INR, PTT INR 0.92 (0.83-1.09) 10/10/17 09:35 Problem List - Problems (1) Epigastric abdominal pain Code(s): R10.13 - EPIGASTRIC PAIN (2) Chronic kidney disease Code(s): N18.9 - CHRONIC KIDNEY DISEASE, UNSPECIFIED (3) Hypertension Code(s): I10 - ESSENTIAL (PRIMARY) HYPERTENSION Assessment/Plan Current Medications Generic Name Dose Route Start Last Admin Trade Name Freq PRN Reason Stop Dose Admin Amlodipine Besylate 10 mg 10/09/17 10:00 10/13/17 09:30 Norvasc - PO 10 mg DAILY [facility] Administration Docusate Sodium 300 mg 10/12/17 22:00 10/12/17 23:01 Colace - PO 300 mg HS [facility] Administration Furosemide 80 mg 10/09/17 10:00 10/13/17 10:22 Lasix - PO Not Given DAILY [facility] Hydralazine HCl 37.5 mg 10/09/17 08:00 10/13/17 09:30 Apresoline - PO 37.5 mg TIDISORDIL [facility] Administration Insulin Aspart 1 vial 10/09/17 07:00 10/13/17 11:52 Novolog Vial Sliding Scale - SQ Not Given ACHS [facility] Protocol Isosorbide Dinitrate 20 mg 10/09/17 08:00 10/13/17 09:31 Isordil - PO 20 mg TIDISORDIL [facility] Administration Metoprolol Succinate 50 mg 10/09/17 10:00 10/13/17 09:30 Toprol Xl - PO 50 mg DAILY [facility] Administration Oxycodone HCl 2.5 mg 10/11/17 17:35 10/12/17 16:43 Roxicodone - PO 2.5 mg Q12H PRN Administration PAIN LEVEL 6-10 Pantoprazole Sodium 40 mg 10/09/17 10:00 10/13/17 09:30 Protonix - PO 40 mg DAILY [facility] Administration Polyethylene Glycol 17 gm 10/13/17 22:00 Miralax (For Daily Use) - PO TID [facility] Pregabalin 75 mg 10/09/17 22:00 10/12/17 23:01 Lyrica - PO 75 mg HS [facility] Administration Rosuvastatin Calcium 20 mg 10/09/17 22:00 10/12/17 23:02 Crestor - PO 20 mg HS [facility] Administration Fluticasone/Salmeterol 1 puff 10/09/17 10:00 10/13/17 09:29 Advair 100mcg/50mcg - IH 1 puff BID [facility] Administration Sevelamer Carbonate 800 mg 10/09/17 17:30 10/13/17 09:30 Renvela - PO 800 mg TIDCM [facility] Administration Impression 1. CKD 2. HTN 3. HLD 4. COPD 5. DM 6. pos heb b core 7. abd pain Plan - hold lasix for now - monitor renal function - encourage PO intake - av access as outpt - renal diet - avoid nsaids - avoid nephrotoxins - will follow Dr Reis
[2017-10-13 17:06] VITALS: BP 128/61; PULSE 76; TEMP 97.9
[2017-10-13] MEDS: oxyCODONE HCL 5 MG TABLET PO PRN (17:19)
--- NOTE | 2017-10-13 18:56 | DS ---
Physical Exam: SUBJECTIVE: Patient seen and examined at bedside.tolerating food well. still w/ some abdominal pain but has not noticed anymore dark stool since arrival to the hospital. had two small bowel movements overnight. denies fever, chills, CP, SOB , N/V/D, urinary sxs OBJECTIVE: Vital Signs Period Temp Pulse Resp BP Sys/Betancourt Pulse Ox Last 24 Hr 97.9 F-98.6 F 75-88 20-20 121-157/61-85 96 PHYSICAL EXAM GENERAL: A&Ox3, no acute distress. obese EYES: PERRLA, EOMI ENT: MMM NECK: No JVD LUNGS: b/l crackles HEART: RRR, S1 S2 distant heart sounds. no m/r/g ABDOMEN: Soft, mild TTP L side and suprapubic ND, BS present MUSCULOSKELETAL: No CVA Tenderness EXTREMITIES: 2+ pulses, no edema. NEUROLOGICAL: Cranial nerves II-XII intact. sensation and strength grossly intact LABS Laboratory Results - last 24 hr 10/12/17 10/13/17 10/13/17 23:07 06:15 06:15 WBC 5.9 RBC 3.54 L Hgb 9.4 L Hct 28.5 L MCV 80.4 MCH 26.5 MCHC 33.0 RDW 16.5 H Plt Count 196 MPV 8.9 Absolute Neuts (auto) 3.9 Neutrophils % 65.1 Lymphocytes % 24.7 Monocytes % 7.2 Eosinophils % 2.5 Basophils % 0.5 Nucleated RBC % 0 Sodium 145 Potassium 4.0 Chloride 107 Carbon Dioxide 30 Anion Gap 8 BUN 38 H Creatinine 4.6 H Creat Clearance w eGFR 9.01 POC Glucometer 148 Random Glucose 94 Calcium 9.2 Phosphorus 4.5 Magnesium 2.0 Total Bilirubin 0.8 AST 17 ALT 18 Alkaline Phosphatase 54 Total Protein 6.9 Albumin 3.9 10/13/17 10/13/17 10/13/17 06:52 11:48 16:51 WBC RBC Hgb Hct MCV MCH MCHC RDW Plt Count MPV Absolute Neuts (auto) Neutrophils % Lymphocytes % Monocytes % Eosinophils % Basophils % Nucleated RBC % Sodium Potassium Chloride Carbon Dioxide Anion Gap BUN Creatinine Creat Clearance w eGFR POC Glucometer 98 123 101 Random Glucose Calcium Phosphorus Magnesium Total Bilirubin AST ALT Alkaline Phosphatase Total Protein Albumin HOSPITAL COURSE: Date of Admission:10/09/17 Date of Discharge: 10/13/17 87 year old female with a hx of COPD (2L O2 at home), asthma, hypertension, CHF , renal stones, CKD stage V (nearing ESRD) presented to the hospital with epigastric abdominal pain and 4 episodes of black stools Admitted for epigastric abdominal pain likely 2/2 constipation. H/H remained stable throughout hospitalization at pt baseline. FOBT negative. lipase wnl. CT abdomen pelvis shows 1.7cm thick pericardial effusion and gastric inflammation. Echo showed small pericardial efussion <1cm and no signs of cardiac tamponade. GI was consulted, and pt was given PPI and underwent EGD which was normal/ unchanged from prior EGD. Pt was put on aggressive bowel regimen for constipation. pt had two small BMs w/ no black stools noted. Pt has CKD stage V. Follows w/ Dr. Chato gatespt. pt is getting prepped as outpatient for AV graft placement. There was no need for emergent HD. We held pt's oxybut bec pt was c/o dysuria. UA neg. Ucx showed non significant growth Pt is stable and ready for discharge w/ appropriate follow up. Minutes to complete discharge: 40 Discharge Summary Reason For Visit: EPIGASTRIC PAIN GI HEMORRHAGE Current Active Problems Abnormal CT of the abdomen (Acute) Epigastric abdominal pain (Acute) GIB (gastrointestinal bleeding) (Acute) Gastritis (Acute) Chronic kidney disease (Chronic) Diabetes (Chronic) Hypercholesterolemia (Chronic) Hypertension (Chronic) Condition: Stable - Instructions Diet, Activity, Other Instructions: You came to the hospital with abdominal pain and and black stools. The CT scan showed some inflammation in your stomach and intestines. We did an endoscopy to look at your stomach which was normal. You were found to be constipated. we gave you laxatives which helped. Please continue taking miralax three times a day for 2 days or until you have a bowel movement then you can take two times a day. Please take colace at night Please avoid spicy foods such as peppers Please monitor your blood pressure Please resume your home medications as before coming to the hospital You have bad kidney disease please follow up with your kidney doctor after being discharged Please follow up with your primary care physician in 1 week Please follow up with your GI doctor in 1 week Please follow up with your kidney doctor in 1 week If you experience increase in abdominal pain, chest pain, fever, chills, blood in your stools, diarrhea, blood in your vomit, please call 911 or come to the ER Referrals: Haja Noland MD [Staff Physician] - 1 Week Zelda Reis MD [Staff Physician] - 1 Week Disposition: HOME - Home Medications Comprehensive Discharge Medication List: Ambulatory Orders Albuterol Sulfate Inhaler - [Ventolin HFA Inhaler -] 1 - 2 inh PO Q6H 05/03/17 Amlodipine Besylate [Norvasc -] 10 mg PO DAILY 05/03/17 Oxybutynin Chloride 5 mg PO BID 05/03/17 Pregabalin [Lyrica] 75 mg PO HS 05/03/17 Sevelamer Carbonate [Renvela -] 800 mg PO TIDCM #90 tab 05/08/17 Calcitriol [Rocaltrol] 0.25 mcg PO ASDIR 10/09/17 Cyclosporine [Restasis] 1 each OP BID 10/09/17 Esomeprazole Magnesium [Nexium 24Hr] 20 mg PO DAILY 10/09/17 Fluticasone/Salmeterol [Advair 250-50 Diskus] 1 each IH Q12H 10/09/17 Fluticasone/Umeclidin/Vilanter [Trelegy Ellipta 100-62.5-25] 1 each IH DAILY 11/18 Furosemide [Lasix] 80 mg PO DAILY 10/09/17 Insulin Lispro [Humalog] 5 unit SQ TID 10/09/17 Levalbuterol HCl 1.25 mg IH Q8H 10/09/17 Metoprolol Succinate [Toprol Xl] 50 mg PO DAILY 10/09/17 Rosuvastatin Calcium [Crestor] 20 mg PO DAILY 10/09/17 Isosorbibe Dinit/Hydralazine [Bidil Tablet] 37.5 mg PO TID 10/10/17 Linaclotide [Linzess] 290 mcg PO DAILY 10/10/17 Docusate Sodium [Colace] 300 mg PO HS #100 capsule 10/13/17 Isosorbide Dinitrate [Isordil -] 20 mg PO TIDISORDIL tablet 10/13/17 Pantoprazole Sodium [Protonix -] 40 mg PO DAILY tablet.ec 10/13/17 Polyethylene Glycol 3350 [Miralax 119 gm Btl -] 17 gm PO TID #1 bottle 10/13/17 hydrALAZINE HCL [Apresoline -] 37.5 mg PO TIDISORDIL tablet 10/13/17 This patient is new to me today: Yes Date on this admission: 10/13/17 Emergency Visit: Yes ED Registration Date: 10/09/17 Care time: The patient presented to the Emergency Department on the above date and was hospitalized for further evaluation of their emergent condition. Critical Care patient: No - Discharge Referral Referred to [facility] No
[2017-10-13] MEDS ORDERED: POLYETHYLENE GLYCOL 3350 119 GM BTL PO SCH (22:00)
== END 2017-10-13 20:03 | disposition home or self-care (01) ==
LOC: JER 17:45 → JERBED 10-09 00:30 → UNDOADMOB 10-09 01:17 → JERBED 10-09 01:17 → J7W 10-09 19:30
PROVIDERS: ADMIT Internal Medicine; ATTEND Internal Medicine
PROC: 0DJ08ZZ Inspection of Upper Intestinal Tract, Via Natural or Artificial Opening Endoscopic (ICD-10-PCS; principal; 2017-10-09)
PROC: 3E033NZ Introduction of Analgesics, Hypnotics, Sedatives into Peripheral Vein, Percutaneous Approach (ICD-10-PCS; 2017-10-09)
PROC: 3E033GC Introduction of Other Therapeutic Substance into Peripheral Vein, Percutaneous Approach (ICD-10-PCS; 2017-10-09)
PROC: 3E0337Z Introduction of Electrolytic and Water Balance Substance into Peripheral Vein, Percutaneous Approach (ICD-10-PCS; 2017-10-09)
PROC: 3E0F7GC Introduction of Other Therapeutic Substance into Respiratory Tract, Via Natural or Artificial Opening (ICD-10-PCS; 2017-10-09)
DX: R10.13 Epigastric pain (principal); R19.5 Other fecal abnormalities; E11.22 Type 2 diabetes mellitus with diabetic chronic kidney disease; I12.0 Hypertensive chronic kidney disease with stage 5 chronic kidney disease or end stage renal disease; N18.5 Chronic kidney disease, stage 5; N17.9 Acute kidney failure, unspecified; Z79.84 Long term (current) use of oral hypoglycemic drugs; D64.9 Anemia, unspecified; I50.89 Other heart failure; I44.0 Atrioventricular block, first degree; J44.9 Chronic obstructive pulmonary disease, unspecified; E78.5 Hyperlipidemia, unspecified; R93.5 Abnormal findings on diagnostic imaging of other abdominal regions, including retroperitoneum; I31.3 Pericardial effusion (noninflammatory); R30.0 Dysuria
CPT/HCPCS: 36415; 71045-TC-FY; 74176-TC; 80048; 80053; 81003; 81015; 82272; 82550; 82553; 82962; 83605; 83690; 83735; 84100; 84484; 85025; 85027; 85610; 85730; 86850; 86900; 86901; 87077; 87086; 87186; 93005; 93010; 93306-TC; 94640; 96374; 96375; 96376; 99285-25; G0378; J0131; J7030

== ENCOUNTER 2017-11-12 12:14 | Day surgery (SDC) | payer OTHER ==
[2017-11-12] MEDS ORDERED: HEPARIN NA (PORCINE) 5,000 UNITS/ML 1ML VIAL ONE ×2 (14:10→15:30)
[2017-11-12] MEDS ORDERED: PAPAVERINE HCL 30 MG/1 ML 10 ML VIAL NR ONE (14:10)
[2017-11-12] MEDS ORDERED: LIDOCAINE HCL 2% (20ML MULTI-DOSE VIAL) NR ONE (14:10)
[2017-11-12] MEDS ORDERED: MIDAZOLAM HCL 2 MG/2 ML SINGLE DOSE VIAL ONE (14:20)
[2017-11-12] MEDS ORDERED: PROPOFOL 20 ML ONE (14:27)
[2017-11-12] MEDS ORDERED: LIDOCAINE HCL 1%, 10 MG/ML (20ML VIAL) NR ONE (14:38)
[2017-11-12] MEDS ORDERED: HEPARIN NA (PORCINE) 5,000 UNITS/ML 1ML VIAL SQ ONE (14:42)
--- NOTE | 2017-11-12 15:39 | HP ---
History & Physical Update - Plan Currently as noted:: Creation AV fistula left arm
--- NOTE | 2017-11-12 15:40 | OP ---
Operative Note - Note: Operative Date: 11/12/17 Pre-Operative Diagnosis: CKD stage 5 Operation: Creation AV fistula left arm Findings: Patent cephalic vein above elbow. Brachial artery 4 mm Post-Operative Diagnosis: Same as Pre-op Surgeon: Trevor Gaming Photographic Printer: Ridge Restrepo Anesthesiologist/OBSERVATION NURSE: Radha aLrson MD Anesthesia: Fractional
--- NOTE | 2017-11-12 15:47 | SURG ---
Surgery Assistant Track And Field Coach Note Assistant Track And Field Coach: Ridge Restrepo PA-C Date of Service: 11/12/17 Diagnosis: end stage renal failure Procedure: Creation of AV fistula Left arm I was present for the entirety of the operative procedure. For further detail, please refer to operative report.
[2017-11-12] MEDS ORDERED: ONDANSETRON 4 MG/2 ML VIAL IVPUSH PRN (15:55)
[2017-11-12 17:59] VITALS: BP 151/70; PULSE 84; TEMP 98.7
--- NOTE | 2017-11-24 19:40 | OP ---
DATE OF OPERATION: 11/12/2017 SURGEON: Trevor Galindo MD DUDE RANCH MANAGER: ROCÍO Dixon PROCEDURE: Creation of arteriovenous fistula, left arm. PREOPERATIVE DIAGNOSIS: Chronic kidney disease. POSTOPERATIVE DIAGNOSIS: Chronic kidney disease. ANESTHESIA: Fractional. ANESTHESIOLOGIST: Radha Larson MD OPERATIVE FINDINGS: The left arm cephalic vein was patent from the elbow proximally. The brachial artery was approximately 4 mm in diameter. OPERATIVE PROCEDURE: Following routine patient identification with site and side verification, intravenous sedation was established. The left arm was prepped with ChloraPrep. A time-out was performed. Then 1% lidocaine was infiltrated in the antecubital fossa, and a longitudinal incision was made. The cephalic vein was identified and mobilized from its bed. Left side branches were ligated and divided. The vein was ligated distally and incised. It was distended with heparin and Papaverine solution. No. 5 and No. 8 feeding tubes were passed proximally without resistance. The vein was filled with heparin solution and was occluded with a clamp. The wound was deepened through the muscle fascia, and the brachial artery was mobilized. It was secured proximally and distally with Vessel Loops. Side branches were ligated and divided. The artery was then occluded with the Vessel Loops and opened on exposed surface with a 6-mm arteriotomy. The vein was freed and spatulated and anastomosed to the side of the artery with a running suture of 6-0 Prolene. Prior to completion of the suture line, the artery was allowed to back bleed and flush, and the vein was flushed with heparin solution. Suture line was completed, and all vessels were released. There was good flow through the anastomosis with a palpable thrill proximally. Bleeding from the suture line was controlled with Surgicel. Good hemostasis was achieved. The wounds were irrigated and closed with interrupted suture of 3-0 Vicryl and skin mandy. Sterile dressings were applied, and the patient was taken to the recovery room in stable condition. TREVOR GALINDO M.D. [id number]
== END 2017-11-12 18:00 | disposition home or self-care (01) ==
LOC: JASU-SURG 12:14
PROVIDERS: ATTEND Surgery
PROC: 03180ZD Bypass Left Brachial Artery to Upper Arm Vein, Open Approach (ICD-10-PCS; principal; 2017-11-12 13:30)
DX: I12.0 Hypertensive chronic kidney disease with stage 5 chronic kidney disease or end stage renal disease (principal); E11.22 Type 2 diabetes mellitus with diabetic chronic kidney disease; N18.6 End stage renal disease; Z99.2 Dependence on renal dialysis; Z79.4 Long term (current) use of insulin
CPT/HCPCS: 94760; J1644

== ENCOUNTER 2018-02-10 17:32 | Inpatient (IN) | payer OTHER ==
--- NOTE | 2018-02-10 17:51 | PDOC ---
History of Present Illness - History of Present Illness Initial Comments: 02/10/18 17:51 Ms. Crouch is an 87 yo female w/ pmh of asthma, COPD (on home O2), HTN, nephrolithiasis, frequent UTIs, prior gastrointestinal bleed, CKD stage IV (L A/ V fistula currently maturing but not in use at this time) who presents for evaluation of 1 week of weakness complicated by 1 day history of nausea/ vomiting with abdominal pain. Patient is creole speaking and daughters who are with her translate. Patient also endorses 2 day history of diarrhea as well. The patient denies chest pain, shortness of breath, headache and dizziness. Denies fever, chills, and constipation. Denies dysuria, frequency, urgency and hematuria. <Manuel Rothman - Last Filed: 02/10/18 21:51> <Sally Reece - Last Filed: 02/11/18 00:32> - General Stated Complaint: VOMITING Time Seen by Provider: 02/10/18 17:51 Past History - Past Medical History Asthma: Yes COPD: Yes Diabetes: Yes HTN: Yes Kidney Stones: Yes - Immunization History Immunization Up to Date: Yes - Suicide/Smoking/Psychosocial Hx Smoking History: Former smoker Have you smoked in the past 12 months: No Number of Cigarettes Smoked Daily: 0 Cigars Per Day: 0 Hx Alcohol Use: No Drug/Substance Use Hx: No Substance Use Type: None Hx Substance Use Treatment: No <Manuel Rothman - Last Filed: 02/10/18 21:51> <Sally Reece - Last Filed: 02/11/18 00:32> - Past Medical History Allergies/Adverse Reactions: Allergies Allergy/AdvReac Type Severity Reaction Status Date / Time No Known Allergies Allergy Verified 10/08/17 17:57 Home Medications: Ambulatory Orders Albuterol Sulfate Inhaler - [Ventolin HFA Inhaler -] 1 - 2 inh PO Q6H 05/03/17 Amlodipine Besylate [Norvasc -] 10 mg PO DAILY 05/03/17 Pregabalin [Lyrica] 75 mg PO HS 05/03/17 Sevelamer Carbonate [Renvela -] 800 mg PO TIDCM #90 tab 05/08/17 Calcitriol [Rocaltrol] 0.25 mcg PO ASDIR 10/09/17 Cyclosporine [Restasis] 1 each OP BID 10/09/17 Fluticasone/Umeclidin/Vilanter [Trelegy Ellipta 100-62.5-25] 1 each IH DAILY 11/18 Furosemide [Lasix] 80 mg PO DAILY 10/09/17 Insulin Lispro [Humalog] 5 unit SQ TID 10/09/17 Levalbuterol HCl 1.25 mg IH Q8H 10/09/17 Metoprolol Succinate [Toprol Xl] 50 mg PO DAILY 10/09/17 Rosuvastatin Calcium [Crestor] 20 mg PO DAILY 10/09/17 Pantoprazole Sodium [Protonix -] 40 mg PO DAILY tablet.ec 10/13/17 Polyethylene Glycol 3350 [Miralax 119 gm Btl -] 17 gm PO TID #1 bottle 10/13/17 Acetaminophen W/ Codeine #3 [Tylenol # 3 -] 1 tab PO Q6H PRN #10 tablet MDD 4 Docusate Sodium [Colace] 100 mg PO BID #30 capsule 11/12/17 Review of Systems - Review of Systems Comments:: 02/10/18 18:05 GENERAL/CONSTITUTIONAL: +Weakness for 1 week. No fever or chills. HEAD, EYES, EARS, NOSE AND THROAT: No change in vision. No ear pain or discharge. No sore throat. CARDIOVASCULAR: No chest pain or shortness of breath RESPIRATORY: No cough, wheezing, or hemoptysis. GASTROINTESTINAL: +N/V/D as described. No constipation. GENITOURINARY: No dysuria, frequency, or change in urination. MUSCULOSKELETAL: No joint or muscle swelling or pain. No neck or back pain. SKIN: No rash NEUROLOGIC: No headache, vertigo, loss of consciousness, or change in strength/ sensation. ENDOCRINE: No increased thirst. No abnormal weight change HEMATOLOGIC/LYMPHATIC: No anemia, easy bleeding, or history of blood clots. ALLERGIC/IMMUNOLOGIC: No hives or skin allergy. <Manuel Rothman - Last Filed: 02/10/18 21:51> *Physical Exam - Physical Exam Comments: 02/10/18 18:06 GENERAL: Awake, alert, and fully oriented, in no acute distress HEAD: No signs of trauma, normocephalic, atraumatic EYES: PERRLA, EOMI, sclera anicteric, conjunctiva clear ENT: Auricles normal inspection, hearing grossly normal, nares patent, oropharynx clear without exudates. Moist mucosa NECK: Normal ROM, supple, no lymphadenopathy, JVD, or masses LUNGS: No distress, speaks full sentences, clear to auscultation bilaterally HEART: Regular rate and rhythm, normal S1 and S2, no murmurs, rubs or gallops, peripheral pulses normal and equal bilaterally. ABDOMEN: +Bilateral upper abdominal pain. Soft, normoactive bowel sounds. No guarding, no rebound. No masses EXTREMITIES: Normal inspection, Normal range of motion, no edema. No clubbing or cyanosis. NEUROLOGICAL: Cranial nerves II through XII grossly intact. Normal speech, normal gait, no focal sensorimotor deficits SKIN: Warm, Dry, normal turgor, no rashes or lesions noted. <Manuel Rothman - Last Filed: 02/10/18 21:51> - Vital Signs Last Vital Signs Temp Pulse Resp BP Pulse Ox 97.4 F L 81 24 H 154/74 100 02/10/18 20:24 02/10/18 20:24 02/10/18 20:24 02/10/18 20:24 02/10/18 20:24 <Sally Reece - Last Filed: 02/11/18 00:32> Moderate Sedation - Procedure Monitoring Vital Signs: Procedure Monitoring Vital Signs Temperature 97.4 F L 02/10/18 20:24 Pulse Rate 81 02/10/18 20:24 Respiratory Rate 24 H 02/10/18 20:24 Blood Pressure 154/74 02/10/18 20:24 O2 Sat by Pulse Oximetry (%) 100 02/10/18 20:24 <Sally Reece - Last Filed: 02/11/18 00:32> ED Treatment Course - LABORATORY CBC & Chemistry Diagram: 02/10/18 19:00 02/10/18 19:00 <Manuel Rothman - Last Filed: 02/10/18 21:51> - LABORATORY CBC & Chemistry Diagram: 02/10/18 19:00 02/10/18 19:00 - ADDITIONAL ORDERS Additional order review: Laboratory Results 02/10/18 02/10/18 19:00 18:45 Sodium 146 H Potassium 4.0 Chloride 106 Carbon Dioxide 33 H Anion Gap 8 BUN 47 H Creatinine 4.8 H Creat Clearance w eGFR 8.58 Random Glucose 128 H Calcium 9.2 Total Bilirubin 1.2 H AST 18 ALT 27 Alkaline Phosphatase 80 Creatine Kinase 141 Troponin I 0.02 Total Protein 7.1 Albumin 4.0 Urine Color Straw Urine Appearance Clear Urine pH 8.0 D Ur Specific [place] 1.008 L Urine Protein 3+ H Urine Glucose (UA) Negative Urine Ketones Negative Urine Blood Negative Urine Nitrite Negative Urine Bilirubin Negative Urine Urobilinogen Negative Ur Leukocyte Esterase Negative Urine WBC (Auto) 1 Urine RBC (Auto) <1 Urine Mucus Rare 02/10/18 19:00 RBC 3.43 L MCV 80.1 MCHC 33.9 RDW 16.3 H MPV 9.4 Neutrophils % 79.2 D Lymphocytes % 12.3 D Monocytes % 8.1 Eosinophils % 0.1 D Basophils % 0.3 - Medications Given in the ED: ED Medications Discontinued Medications Generic Name Dose Route Start Last Admin Trade Name Freq PRN Reason Stop Dose Admin Al Hydroxide/Mg Hydroxide 30 ml 02/10/18 18:08 02/10/18 19:09 Mylanta Oral Suspension - PO 02/10/18 18:09 30 ml ONCE ONE Administration Famotidine/Sodium Chloride 20 mg in 50 mls @ 100 mls/hr 02/10/18 18:08 19:09 Pepcid 20 Mg Premixed Ivpb - IVPB 02/10/18 18:37 100 mls/hr ONCE ONE Administration Ondansetron HCl 4 mg 02/10/18 18:08 02/10/18 19:09 Zofran Injection IVPUSH 02/10/18 18:09 4 mg ONCE ONE Administration Ondansetron HCl 4 mg 02/10/18 21:29 02/10/18 22:20 Zofran Injection IVPUSH 02/10/18 21:30 4 mg ONCE ONE Administration <Sally Reece - Last Filed: 02/11/18 00:32> Medical Decision Making - Medical Decision Making 02/10/18 21:29 Ms. Crouch is an 87 yo female w/ pmh as described who presents for evaluation of symptoms concerning for gastritis vs. viral illness vs. GI bleed. Symptomatic relief given w/ GI cocktail; labs and abd/pelvis CT sent for further evaluation. 02/10/18 21:51 Patient signed out to Dr. Reece for further evaluation. <Manuel Rothman - Last Filed: 02/10/18 21:51> *DC/Admit/Observation/Transfer <Manuel Rothman - Last Filed: 02/10/18 21:51> - Discharge Dispostion Decision to Admit order: Yes <Sally Reece - Last Filed: 02/11/18 00:32> Diagnosis at time of Disposition: Epigastric abdominal pain Chronic kidney disease Qualifiers: Chronic kidney disease stage: stage 5, not on chronic dialysis Qualified Code(s ): N18.5 - Chronic kidney disease, stage 5 Vomiting Qualifiers: Vomiting type: unspecified Vomiting Intractability: non-intractable Nausea presence: with nausea Qualified Code(s): R11.2 - Nausea with vomiting, unspecified
[2018-02-10] MEDS ORDERED: ONDANSETRON 4 MG/2 ML VIAL IVPUSH ONE ×2 (18:08→21:29)
[2018-02-10] MEDS ORDERED: FAMOTIDINE 20 MG/50 ML IVPB 20 MG/50 ML MG IVPB ONE ×2 (18:08→18:34)
[2018-02-10] MEDS ORDERED: MAG HYDROX/AL HYDROX/SIMETH 30 ML UNIT-DOSE CUP PO ONE (18:08)
--- NOTE | 2018-02-10 18:09 | PDOC ---
Attending Attestation - HPI HPI: 02/10/18 18:11 The patient is a 87 year old female, creole speaking with sisters at bedside, with a significant past medical history of asthma, COPD (on home O2), HTN, nephrolithiasis, frequent UTIs , who presents to the emergency department with one week of generalized weakness and one day of nausea, vomiting, diarrhea, and midline abdominal pain. The patient denies chest pain, shortness of breath, headache and dizziness. The patient denies fever, chills, and constipation. The patient denies dysuria, frequency, urgency and hematuria. Allergies: NKDA - Physicial Exam PE: 02/10/18 18:11 GENERAL: Well developed, well nourished. Awake and alert. No acute distress. HEENT: Normocephalic, atraumatic. PERRLA, EOMI. No conjunctival pallor. Sclera are non- icteric. Moist mucous membranes. Oropharynx is clear. NECK: Supple. Full ROM. No JVD. Carotid pulses 2+ and symmetric, without bruits. No thyromegaly. No lymphadenopathy. CARDIOVASCULAR: Regular rate and rhythm. No murmurs, rubs, or gallops. Distal pulses are 2+ and symmetric. PULMONARY: No evidence of respiratory distress. Lungs clear to auscultation bilaterally. No wheezing, rales or rhonchi. ABDOMINAL: (+) Bilateral upper abdominal quadrant tenderness on palpation. Soft. Non- distended. No rebound or guarding. No organomegaly. Normoactive bowel sounds. MUSCULOSKELETAL Normal range of motion at all joints. No bony deformities or tenderness. No CVA tenderness. EXTREMITIES: No cyanosis. No clubbing. No edema. No calf tenderness. SKIN: Warm and dry. Normal capillary refill. No rashes. No jaundice. NEUROLOGICAL: Alert, awake, appropriate. Cranial nerves 2-12 intact. Normoreflexic in the upper and lower extremities. Normal speech. Toes are down-going bilaterally. Gait is normal without ataxia. PSYCHIATRIC: Cooperative. Good eye contact. Appropriate mood and affect. - Medical Decision Making 02/10/18 18:11 Documentation prepared by Nafisa Arellano, acting as medical doctor for Sally Reece MD <Nafisa Arellano - Last Filed: 02/10/18 18:12> - Resident Resident Name: Manuel Rothman - ED Attending Attestation I have performed the following: I have examined & evaluated the patient, The case was reviewed & discussed with the resident, I agree w/resident's findings & plan, Exceptions are as noted - Medical Decision Making 02/10/18 18:[address] Gaming created an AV fistula in the left arm. She had EGD done on May 08 this year that showed a mild gastritis and mild esophagitis. She has a history of chronic right upper quadrant pain. History of COPD and she is using 2 L home O2 02/10/18 21:14 labs reviewed and reveals chronic anemia hbg=9.3 ,hct=27 CKI with cr=4.0 02/10/18 23:03 Dr. Simon came into see the patient and feels that she is dehydrated and would benefit from gentle hydration ct scan abd/.pel 02/11/18 00:30 <Sally Reece - Last Filed: 02/11/18 00:31>
[2018-02-10] MEDS ORDERED: MAG HYDROX/AL HYDROX/SIMETH 30 ML UNIT-DOSE CUP ONE (18:33)
[2018-02-10] MEDS ORDERED: ONDANSETRON 4 MG/2 ML VIAL ONE ×2 (18:34→22:06)
[2018-02-10 19:46] LABS: BASO % 0.3 % (0-2.0); EOS % 0.1 % (0-4.5); HEMATOCRIT 27.4 % (32.4-45.2); HEMOGLOBIN 9.3 GM/dL (10.7-15.3); LYMPH % 12.3 % (8-40); MCH 27.1 pg (25.7-33.7); MCHC 33.9 g/dl (32.0-36.0); MEAN CELL VOLUME 80.1 fl (80-96); MEAN PLT VOLUME 9.4 fl (7.5-11.1); MONO % 8.1 % (3.8-10.2); NEUT % 79.2 % (42.8-82.8); PLATELET COUNT 250 K/MM3 (134-434); RBC 3.43 M/mm3 (3.60-5.2); RDW 16.3 % (11.6-15.6); WHITE BLOOD COUNT 4.6 K/mm3 (4.0-10.0)
[2018-02-10 20:09] LABS: URINE APPEARANCE CLEAR; URINE BILIRUBIN NEGATIVE (<2.0 mg/dL); URINE COLOR STRAW; URINE GLUCOSE (UA) NEGATIVE (NEGATIVE); URINE KETONE NEGATIVE (NEGATIVE); URINE LEUK ESTERASE NEGATIVE (NEGATIVE); URINE NITRITE NEGATIVE (NEGATIVE); URINE PROTEIN 3+ (NEGATIVE); URINE UROBILINOGEN NEGATIVE mg/dL (0.2-1.0)
[2018-02-10 20:14] LABS: URINE MUCUS RARE
[2018-02-10 20:19] LABS: ALK PHOS 80 U/L (45-117); ANION GAP 8 MMOL/L (8-16); BILIRUBIN,TOTAL 1.2 mg/dL (0.2-1); BLOOD UREA NITROGEN 47 mg/dL (7-18); CALCIUM 9.2 mg/dL (8.5-10.1); CHLORIDE 106 mmol/L (98-107); CO2 33 mmol/L (21-32); CREATININE 4.8 mg/dL (0.55-1.3); GLUCOSE,RANDOM 128 mg/dL (74-106); SGOT/AST 18 U/L (15-37); SGPT/ALT 27 U/L (13-61); SODIUM 146 mmol/L (136-145); TOT PROT 7.1 g/dl (6.4-8.2)
--- NOTE | 2018-02-10 23:11 | CONSULT ---
Consult Consult Specialty:: Nephrology Reason for Consultation:: CKD - History of Present Illness Chief Complaint: nausea and vomiting History of Present Illness: Pt is an 87 year old female with pmhx of CKD, asthma, COPD on home o2, HTN, UTI , nephrolithiasis and GI bleed who presents with nausea and vomiting. I was called earlier today by her daughter and told that she had been vomiting all day. I recommended that she come in the ER to have her evaluated and her labs checks as she has advanced uremia. She denies shortness of breath. SHe denies abdominal pain. She has av access but is not yet on HD. She is on diuretics at home. - History Source History Provided By: Family Member - Past Medical History Cardio/Vascular: Yes: HTN Pulmonary: Yes: COPD Renal/: Yes: Renal Inusuff, Renal Calculi (maybe- she had flank pain) Endocrine: Yes: Diabetes Mellitus - Past Surgical History Past Surgical History: Yes: AV Fistula/Graft - Alcohol/Substance Use Hx Alcohol Use: No - Smoking History Smoking history: Former smoker Have you smoked in the past 12 months: No Aproximately how many cigarettes per day: 0 Home Medications - Allergies Allergies/Adverse Reactions: Allergies Allergy/AdvReac Type Severity Reaction Status Date / Time No Known Allergies Allergy Verified 10/08/17 17:57 - Home Medications Home Medications: Ambulatory Orders Albuterol Sulfate Inhaler - [Ventolin HFA Inhaler -] 1 - 2 inh PO Q6H 05/03/17 Amlodipine Besylate [Norvasc -] 10 mg PO DAILY 05/03/17 Pregabalin [Lyrica] 75 mg PO HS 05/03/17 Sevelamer Carbonate [Renvela -] 800 mg PO TIDCM #90 tab 05/08/17 Calcitriol [Rocaltrol] 0.25 mcg PO ASDIR 10/09/17 Cyclosporine [Restasis] 1 each OP BID 10/09/17 Fluticasone/Umeclidin/Vilanter [Trelegy Ellipta 100-62.5-25] 1 each IH DAILY 11/18 Furosemide [Lasix] 80 mg PO DAILY 10/09/17 Insulin Lispro [Humalog] 5 unit SQ TID 10/09/17 Levalbuterol HCl 1.25 mg IH Q8H 10/09/17 Metoprolol Succinate [Toprol Xl] 50 mg PO DAILY 10/09/17 Rosuvastatin Calcium [Crestor] 20 mg PO DAILY 10/09/17 Pantoprazole Sodium [Protonix -] 40 mg PO DAILY tablet.ec 10/13/17 Polyethylene Glycol 3350 [Miralax 119 gm Btl -] 17 gm PO TID #1 bottle 10/13/17 Acetaminophen W/ Codeine #3 [Tylenol # 3 -] 1 tab PO Q6H PRN #10 tablet MDD 4 Docusate Sodium [Colace] 100 mg PO BID #30 capsule 11/12/17 Review of Systems - Review of Systems Constitutional: reports: Malaise. denies: Chills, Fever Eyes: reports: No Symptoms HENT: reports: No Symptoms Cardiovascular: reports: No Symptoms Respiratory: reports: SOB on Exertion Gastrointestinal: reports: Abdominal Pain, Diarrhea, Nausea, Vomiting Genitourinary: reports: No Symptoms Musculoskeletal: reports: No Symptoms Integumentary: reports: No Symptoms Neurological: reports: No Symptoms Endocrine: reports: No Symptoms Hematology/Lymphatic: reports: No Symptoms Psychiatric: reports: No Symptoms Physical Exam Vital Signs: Vital Signs Temperature 97.4 F L 02/10/18 20:24 Pulse Rate 81 02/10/18 20:24 Respiratory Rate 24 H 02/10/18 20:24 Blood Pressure 154/74 02/10/18 20:24 O2 Sat by Pulse Oximetry (%) 100 02/10/18 20:24 Constitutional: Yes: Calm Eyes: Yes: Conjunctiva Clear HENT: Yes: Atraumatic Neck: Yes: Supple Cardiovascular: Yes: S1, S2 Respiratory: Yes: CTA Bilaterally Gastrointestinal: Yes: Soft Musculoskeletal: Yes: WNL Edema: No Neurological: Yes: Oriented Psychiatric: Yes: Oriented Labs: CBC, BMP 02/10/18 19:00 02/10/18 19:00 Problem List - Problems (1) Esophagitis Code(s): K20.9 - ESOPHAGITIS, UNSPECIFIED (2) Chronic kidney disease Code(s): N18.9 - CHRONIC KIDNEY DISEASE, UNSPECIFIED (3) Diabetes Code(s): E11.9 - TYPE 2 DIABETES MELLITUS WITHOUT COMPLICATIONS Assessment/Plan Impression 1. CKD 2. HTN 3. HLD 4. COPD 5. DM 6. pos heb b core 7. abd pain 8. vomiting 9. anemia Plan - pt appears dehydrated - hold tomorrows lasix - will give 500 cc of 1/2 ns at 50 cc per hour - follow up ct - discussed with family - discussed with ER - will follow Dr Reis
[2018-02-10] MEDS ORDERED: SODIUM CHLORIDE 0.45% 1,000 ML IV SCH (23:15)
[2018-02-10] MEDS ORDERED: SODIUM CHLORIDE 0.45% 500 ML IV SCH (23:30)
[2018-02-11] MEDS ORDERED: ONDANSETRON 4 MG/2 ML VIAL IVPUSH PRN ×2 (00:12→08:13)
--- NOTE | 2018-02-11 00:16 | PN ---
Teaching Attending Note Name of Resident: Tito Steen ATTENDING PHYSICIAN STATEMENT I saw and evaluated the patient. I reviewed the resident's note and discussed the case with the resident. I agree with the resident's findings and plan as documented. SUBJECTIVE: Seen and examined with resident; please refer to their note for further details. 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 In the ER she was found on imaging to have a R-basilar effusion, enlarging pericardial effusion (small on prior echo), any to have labs consistent with dehydration. Her notch grinder was called who placed her on 1/2NS for 500cc for the dehydration. I spoke with the daughter personally who was able to confirm history. She is doing well here clinically and hasn't had any episodes of emesis and appears comfortable. She is on baseline O2 at home for her COPD at 2L but will titrate up if she becomes subjectively SOB. 10 sys ROS done and negative aside from HPI PMH and PSH reviewed FH asked and noncontributory Social hx reviewed Medication list reviewed; resident to reconcile and confirm with pharmacy when open OBJECTIVE: VS, labs, imaging reviewed NAD, AAO, resting in bed Some mild rales and wheezes R>L but poor respiratory effort, sym exp NT ND +BS CN2-12 wnl, no fnd NC AT EOMI PERRLA Normal mood, appropriate behavior Labs show unremarkable CBC with h/h at baseline and no white count; BMP shows CKD-V without any pressing e-lyte abnormalities. LFTs show slight elevation in bilirubin. CT scan shows R-basilar consolidation, moderate pericardial effusion, gastric thickening ASSESSMENT AND PLAN: Mrs. Crouch is an 87 y/o female presenting to the ER with cough and vomitting found to have a pneumonia, dehydration, and a largening pericardial effusion 1) Likely R-sided PNA -She has a history of productive cough and infiltrate but no WBC or fever; will opt for caution and treat for CAP -CURB-65 very low and she can likely be changed to PO quite quickly -Followup sputum, urine Ag, blood cx -Empiric cef/azith; qTC checked -Monitor O2 requirements, etc. if she goes into a COPD exacerbation. Check swallow study with Ranjeet Bear to ensure no aspiration component given the location of the pneumonia. 2) Moderate Pericardial Effusion -Ddx includes viral issue (but no diffuse ST-T indicating pericarditis) vs. uremic pericarditis vs. other -No s/s tamponade, stable hemodynamics. Already got fluid from nephro. -Consult cardiology; no need for urgent pericardiocentesis. Echo pending 3) Gastric Thickening -No new issues; incidentally found on CT back on last admission and had a negative EGD at that point. Should continue to followup ith GI as an outpatient. 4) Anemia -At baseline; would likely benefit from epo with HD 5) COPD hx -On home O2 2-3L depending on level of SOB; continue O2 and home medications ( no indication to switch off inhalers unless issue #1 causes airway irritation leading to exacerbation). 6) DM -SSI 7) CKD-V pending HD -Management per nephrology -Monitor BMP; got 500cc 1/2NS and then will lock. -HD when physically able with fistula. -Monitor UOP. 8) Vomitting with dehydration -Could be post-tussive, irritation from pericardial effusion, underlying uremia , etc. -PRN management; control underlying issues. Hydrate per nephro 9) Mild hypernatremia -Rechecking after fluids 10) HLD -Continue home tx Consultants: Cardiology, Nephrology FENA -Per nephro; 500cc 1/2NS -PRN replete; monitor -Renal diet -As tolerated Full Code
[2018-02-11] MEDS ORDERED: ALBUTEROL SO4 0.083% IH SOL 2.5 MG/3 ML VIAL.NEB. NEB PRN ×2 (00:29→08:13)
--- NOTE | 2018-02-11 00:47 | HP ---
CHIEF COMPLAINT: nausea/vomiting PCP: HISTORY OF PRESENT ILLNESS: Patient is an 87 y/o F w/ PMHx COPD on 2L O2, HTN, nephrolithiasis, GERD, DM, frequent UTIs, GI bleed, stage IV CKD stage IV w/ A/V fistula placed but not currently on HD. P/w NBNB vomiting x 1-2 days along w/ 1 week mildly productive cough and generalized weakness. Is followed by Dr. Reis for CKD who recommended presentation to ED. VS wnl. Labs on presentation notable for stable chronic anemia, BUN/Cr c/w CKD, electrolytes wnl. UA positive only for protein. CT a/p w/o contrast re-identified gastric thickening seen in October and concerning for malignancy, and identified enlarging pericardial effusion, R basilar consolidation. Endoscopy was recommended at that time but this was apparently not followed up. Given 1/2 NS, [place], pepcid, zofran in ED. Denies any pain at time of encounter. ER course was notable for: (1) Cr 4.8 (2) K 4 (3) CT a/p: re-identification of gastric thickening suspicious for malignancy, pericardial effusion, R basilar effusion Recent Travel: PAST MEDICAL HISTORY: As per HPI PAST SURGICAL HISTORY: As per HPI Social History: Smoking: Alcohol: Drugs: Family History: Allergies No Known Allergies Allergy (Verified 10/08/17 17:57) HOME MEDICATIONS: Home Medications Medication Instructions Recorded Albuterol Sulfate Inhaler - 1 - 2 inh PO Q6H 05/03/17 [Ventolin HFA Inhaler -] Amlodipine Besylate [Norvasc -] 10 mg PO DAILY 05/03/17 Pregabalin [Lyrica] 75 mg PO HS 05/03/17 Sevelamer Carbonate [Renvela -] 800 mg PO TIDCM #90 tab 05/08/17 Calcitriol [Rocaltrol] 0.25 mcg PO ASDIR 10/09/17 Cyclosporine [Restasis] 1 each OP BID 10/09/17 Fluticasone/Umeclidin/Vilanter 1 each IH DAILY 10/09/17 [Trelegy Ellipta 100-62.5-25] Furosemide [Lasix] 80 mg PO DAILY 10/09/17 Insulin Lispro [Humalog] 5 unit SQ TID 10/09/17 Levalbuterol HCl 1.25 mg IH Q8H 10/09/17 Metoprolol Succinate [Toprol Xl] 50 mg PO DAILY 10/09/17 Rosuvastatin Calcium [Crestor] 20 mg PO DAILY 10/09/17 Pantoprazole Sodium [Protonix -] 40 mg PO DAILY tablet.ec 10/13/17 Polyethylene Glycol 3350 [Miralax 17 gm PO TID #1 bottle 10/13/17 119 gm Btl -] Acetaminophen W/ Codeine #3 1 tab PO Q6H PRN #10 tablet MDD 4 11/12/17 [Tylenol # 3 -] Docusate Sodium [Colace] 100 mg PO BID #30 capsule 11/12/17 REVIEW OF SYSTEMS As per HPI PHYSICAL EXAMINATION Vital Signs - 24 hr 02/10/18 02/10/18 02/10/18 17:33 17:56 20:24 Temperature 98.4 F 97.4 F L Pulse Rate 92 H Pulse Rate [ 81 Left] Respiratory 24 H 24 H Rate Blood Pressure 170/88 Blood Pressure 154/74 [Right Arm] O2 Sat by Pulse 97 99 100 Oximetry (%) GENERAL: A&Ox3, NAD HEAD: NC/AT EYES: PERRLA, EOMI EARS, NOSE, THROAT: MMM NECK: No JVD, no LAD LUNGS: Diffuse rhoncorous breath sounds HEART: RRR, holosystolic murmur at LUSB ABDOMEN: +bs, soft, NT, ND UPPER EXTREMITIES: 2+ pulses, warm, well-perfused. AV fistula w/ thrill on left. LOWER EXTREMITIES: 2+ pulses, warm, well-perfused. No calf tenderness. No peripheral edema. NEUROLOGICAL: spinning frame tender, motor, sensory systems w/o focal deficit PSYCHIATRIC: Cooperative. Good eye contact. Appropriate mood and affect. SKIN: Warm, dry, normal turgor, no rashes or lesions noted, normal capillary refill. Laboratory Results - last 24 hr 02/10/18 02/10/18 02/10/18 18:45 19:00 19:00 WBC 4.6 RBC 3.43 L Hgb 9.3 L Hct 27.4 L MCV 80.1 MCH 27.1 MCHC 33.9 RDW 16.3 H Plt Count 250 D MPV 9.4 Absolute Neuts (auto) 3.7 Neutrophils % 79.2 D Lymphocytes % 12.3 D Monocytes % 8.1 Eosinophils % 0.1 D Basophils % 0.3 Nucleated RBC % 0 Sodium 146 H Potassium 4.0 Chloride 106 Carbon Dioxide 33 H Anion Gap 8 BUN 47 H Creatinine 4.8 H Creat Clearance w eGFR 8.58 Random Glucose 128 H Calcium 9.2 Total Bilirubin 1.2 H AST 18 ALT 27 Alkaline Phosphatase 80 Creatine Kinase 141 Troponin I 0.02 Total Protein 7.1 Albumin 4.0 Urine Color Straw Urine Appearance Clear Urine pH 8.0 D Ur Specific [place] 1.008 L Urine Protein 3+ H Urine Glucose (UA) Negative Urine Ketones Negative Urine Blood Negative Urine Nitrite Negative Urine Bilirubin Negative Urine Urobilinogen Negative Ur Leukocyte Esterase Negative Urine WBC (Auto) 1 Urine RBC (Auto) <1 Urine Mucus Rare ASSESSMENT/PLAN: 87 y/o F w/ PMHx COPD on 2L O2, HTN, nephrolithiasis, GERD, DM, HLD, frequent UTIs, GI bleed, stage IV CKD stage IV w/ A/V fistula placed but not currently on HD. P/w nausea and NBNB vomiting x 1-2 days, cough and generalized weakness x 1 week. #cough -CT a/p and CXR demonstrate RLL consolidation -will treat empirically for PNA -ceftriaxone, azithromycin -blood Cx, sputum Cx -ESR, CRP #n/v -questionable presence of abd pain, none on exam -symptoms suggestive of viral gastroenteritis, may also be post-tussive emesis -abnormal CT findings could represent chronic gastritis and/or neoplastic process driving current symptoms -will require endoscopic evaluation; inpatient endoscopy is advisable given prior LTF -per nephrology: -500 ccs 1/2 NS @ 50/hr -hold Lasix at this time #pericardial effusion -enlarging -echo ordered -cardiology consulted -cardiac monitoring #CKD -nephrology consulted -no HD as yet -electrolytes currently wnl -500 ccs 1/2 NS @ 50/hr -hold Lasix given likely dehydration in setting of vomiting -restart sevelamer #GERD -IV protonix #DM -has had no treatment in months, glucose 128 on presentation -BGM ACHS -SSI -repeat A1c #HTN -restart home amlodipine #HLD -restart home statin #FEN -500 ccs 1/2 NS @ 50/hr -monitor and correct electrolytes -renal/diabetic diet #PPx -DVT: heparin subq -GI: IV protonix #code -full #dispo -admit to telemetry Visit type - Emergency Visit Emergency Visit: Yes ED Registration Date: 02/11/18 Care time: The patient presented to the Emergency Department on the above date and was hospitalized for further evaluation of their emergent condition. - New Patient This patient is new to me today: Yes Date on this admission: 02/11/18 - Critical Care Critical Care patient: No
[2018-02-11] MEDS ORDERED: CEFTRIAXONE 1 GM in DEXTROSE 5%-WATER - 100 ML IVPB SCH (01:52)
[2018-02-11] MEDS ORDERED: AZITHROMYCIN IVPB 500 MG in DEXTROSE 5%-WATER - 250 ML IVPB SCH (01:53)
[2018-02-11] MEDS ORDERED: CEFTRIAXONE 1 GM/50 ML BAG ONE (02:13)
[2018-02-11] MEDS ORDERED: AZITHROMYCIN IVPB 500 MG/250 ML BAG IVPB ONE (02:13)
[2018-02-11] MEDS ORDERED: CEFTRIAXONE 1 GM in DEXTROSE 5%-WATER - 50 ML IVPB SCH (05:47)
[2018-02-11] MEDS ORDERED: HEPARIN NA (PORCINE) 5,000 UNITS/ML 1ML VIAL SQ SCH (06:00)
[2018-02-11] MEDS ORDERED: INSULIN SLIDING SCALE (NOVOLOG) 1 VIAL SQ SCH (07:00)
[2018-02-11] MEDS ORDERED: SEVELAMER CARBONATE 800 MG TAB (FP) PO SCH (08:00)
[2018-02-11] MEDS ORDERED: SODIUM CHLORIDE 0.45% 500 ML IV SCH (08:13)
[2018-02-11 08:20] LABS: BASO % 0.5 % (0-2.0); EOS % 0.6 % (0-4.5); HEMATOCRIT 24.6 % (32.4-45.2); HEMOGLOBIN 8.3 GM/dL (10.7-15.3); LYMPH % 20.8 % (8-40); MCH 27.1 pg (25.7-33.7); MCHC 33.5 g/dl (32.0-36.0); MEAN CELL VOLUME 80.8 fl (80-96); MEAN PLT VOLUME 8.3 fl (7.5-11.1); MONO % 9.3 % (3.8-10.2); NEUT % 68.8 % (42.8-82.8); PLATELET COUNT 213 K/MM3 (134-434); RBC 3.05 M/mm3 (3.60-5.2); RDW 16.7 % (11.6-15.6); WHITE BLOOD COUNT 4.2 K/mm3 (4.0-10.0)
[2018-02-11 08:54] LABS: ALBUMIN 3.5 g/dl (3.4-5.0); ALK PHOS 100 U/L (45-117); ANION GAP 10 MMOL/L (8-16); BILIRUBIN,TOTAL 1.3 mg/dL (0.2-1); BLOOD UREA NITROGEN 43 mg/dL (7-18); CALCIUM 8.9 mg/dL (8.5-10.1); CHLORIDE 116 mmol/L (98-107); CO2 33 mmol/L (21-32); CREATININE 4.6 mg/dL (0.55-1.3); GLUCOSE,RANDOM 91 mg/dL (74-106); MAGNESIUM 2.4 mg/dL (1.8-2.4); PHOSPHOROUS 5.4 mg/dL (2.5-4.9); POTASSIUM 4.3 mmol/L (3.5-5.1); SGOT/AST 29 U/L (15-37); SGPT/ALT 33 U/L (13-61); SODIUM 159 mmol/L (136-145); TOT PROT 6.5 g/dl (6.4-8.2)
--- NOTE | 2018-02-11 09:45 | EKG ---
Test Reason : Blood Pressure : / mmHG Vent. Rate : 083 BPM Atrial Rate : 083 BPM P-R Int : 198 ms QRS Dur : 086 ms QT Int : 358 ms P-R-T Axes : 068 061 076 degrees QTc Int : 420 ms SINUS RHYTHM WITH PREMATURE ATRIAL COMPLEXES OTHERWISE NORMAL ECG WHEN COMPARED WITH ECG OF 08-OCT-2017 20:28, PREMATURE ATRIAL COMPLEXES ARE NOW PRESENT Confirmed by MOUSTAPHA MIDDLETON, GAIL ([id number]) on 02/11/2018 9:45:23 AM Referred By: Confirmed By:GAIL GERARD MD
[2018-02-11] MEDS ORDERED: amLODIPine BESYLATE 10 MG TABLET (FP) PO SCH (10:00)
[2018-02-11] MEDS ORDERED: AZITHROMYCIN IVPB 500 MG/250 ML BAG IVPB SCH (10:00)
[2018-02-11] MEDS ORDERED: PANTOPRAZOLE SODIUM 40 MG VIAL IVPUSH SCH (10:00)
[2018-02-11] MEDS ORDERED: DEXTROSE 5%-WATER - 1,000 ML IV SCH ×2 (10:15→12:33)
[2018-02-11] MEDS: PANTOPRAZOLE SODIUM 40 MG VIAL IVPUSH SCH (10:19)
[2018-02-11] MEDS: amLODIPine BESYLATE 10 MG TABLET (FP) PO SCH (10:19)
--- NOTE | 2018-02-11 10:48 | PN ---
Physical Exam: SUBJECTIVE: Patient seen and examined. No acute events overnight. I spoke with Pt.s daughter over the phone and Pt. has dementia/delirium at baseline but is oriented to her name. Over the last week there has been a rapid decline in mental status and ambulation. Pt. was able to walk around her home with a can but over the last week Pt. has been having increased difficulty getting out of bed. Pt. normally eats rice and regular food at home, however Pt. has been eating more and more soft and pureed food especially over this last week. OBJECTIVE: Vital Signs Period Temp Pulse Resp BP Sys/Betancourt Pulse Ox Last 24 Hr 97.4 F-98.6 F 73-92 16-24 123-170/61-88 95-100 GENERAL: The patient is somnolent arousable to verbal and tactile stimulation, in no acute distress HEAD: Normal with no signs of trauma. EYES: PERRL, sclera anicteric, conjunctiva clear. No ptosis. ENT: Ears normal, nares patent, moist mucous membranes. LUNGS: Breath sounds equal, clear to auscultation bilaterally, no wheezes, no crackles, no accessory muscle use. HEART: Regular rate and rhythm, S1, S2 without murmur ABDOMEN: Soft, nontender, nondistended, normoactive bowel sounds, no guarding, no rebound, no CVA tenderness EXTREMITIES: 2+ dorsal pedal pulses, warm, no calf tenderness, well-perfused, no edema. NEUROLOGICAL: Confused vs. delirious PSYCH: Pt. was noncooperative with physical exam. SKIN: Warm, dry, normal turgor Laboratory Results - last 24 hr 02/10/18 02/10/18 02/10/18 18:45 19:00 19:00 WBC 4.6 RBC 3.43 L Hgb 9.3 L Hct 27.4 L MCV 80.1 MCH 27.1 MCHC 33.9 RDW 16.3 H Plt Count 250 D MPV 9.4 Absolute Neuts (auto) 3.7 Neutrophils % 79.2 D Lymphocytes % 12.3 D Monocytes % 8.1 Eosinophils % 0.1 D Basophils % 0.3 Nucleated RBC % 0 ESR Sodium 146 H Potassium 4.0 Chloride 106 Carbon Dioxide 33 H Anion Gap 8 BUN 47 H Creatinine 4.8 H Creat Clearance w eGFR 8.58 POC Glucometer Random Glucose 128 H Hemoglobin A1c % Calcium 9.2 Phosphorus Magnesium Total Bilirubin 1.2 H AST 18 ALT 27 Alkaline Phosphatase 80 Creatine Kinase 141 Troponin I 0.02 C-Reactive Protein Total Protein 7.1 Albumin 4.0 Urine Color Straw Urine Appearance Clear Urine pH 8.0 D Ur Specific [place] 1.008 L Urine Protein 3+ H Urine Glucose (UA) Negative Urine Ketones Negative Urine Blood Negative Urine Nitrite Negative Urine Bilirubin Negative Urine Urobilinogen Negative Ur Leukocyte Esterase Negative Urine WBC (Auto) 1 Urine RBC (Auto) <1 Urine Mucus Rare 02/11/18 02/11/18 02/11/18 03:49 06:33 07:45 WBC 4.2 RBC 3.05 L Hgb 8.3 L Hct 24.6 L MCV 80.8 MCH 27.1 MCHC 33.5 RDW 16.7 H Plt Count 213 MPV 8.3 D Absolute Neuts (auto) 2.9 Neutrophils % 68.8 Lymphocytes % 20.8 D Monocytes % 9.3 Eosinophils % 0.6 D Basophils % 0.5 Nucleated RBC % 0 ESR Sodium Potassium Chloride Carbon Dioxide Anion Gap BUN Creatinine Creat Clearance w eGFR POC Glucometer 112 Random Glucose Hemoglobin A1c % Calcium Phosphorus Magnesium Total Bilirubin AST ALT Alkaline Phosphatase Creatine Kinase Troponin I 0.04 C-Reactive Protein Total Protein Albumin Urine Color Urine Appearance Urine pH Ur Specific [place] Urine Protein Urine Glucose (UA) Urine Ketones Urine Blood Urine Nitrite Urine Bilirubin Urine Urobilinogen Ur Leukocyte Esterase Urine WBC (Auto) Urine RBC (Auto) Urine Mucus 02/11/18 02/11/18 02/11/18 07:45 07:45 07:45 WBC RBC Hgb Hct MCV MCH MCHC RDW Plt Count MPV Absolute Neuts (auto) Neutrophils % Lymphocytes % Monocytes % Eosinophils % Basophils % Nucleated RBC % ESR 20 Sodium 159 H Potassium 4.3 Chloride 116 H Carbon Dioxide 33 H Anion Gap 10 BUN 43 H Creatinine 4.6 H Creat Clearance w eGFR 9.01 POC Glucometer Random Glucose 91 Hemoglobin A1c % Calcium 8.9 Phosphorus 5.4 H Magnesium 2.4 Total Bilirubin 1.3 H AST 29 ALT 33 Alkaline Phosphatase 100 Creatine Kinase Troponin I < 0.02 C-Reactive Protein < 0.3 Total Protein 6.5 Albumin 3.5 Urine Color Urine Appearance Urine pH Ur Specific [place] Urine Protein Urine Glucose (UA) Urine Ketones Urine Blood Urine Nitrite Urine Bilirubin Urine Urobilinogen Ur Leukocyte Esterase Urine WBC (Auto) Urine RBC (Auto) Urine Mucus 02/11/18 07:45 WBC RBC Hgb Hct MCV MCH MCHC RDW Plt Count MPV Absolute Neuts (auto) Neutrophils % Lymphocytes % Monocytes % Eosinophils % Basophils % Nucleated RBC % ESR Sodium Potassium Chloride Carbon Dioxide Anion Gap BUN Creatinine Creat Clearance w eGFR POC Glucometer Random Glucose Hemoglobin A1c % 5.7 Calcium Phosphorus Magnesium Total Bilirubin AST ALT Alkaline Phosphatase Creatine Kinase Troponin I C-Reactive Protein Total Protein Albumin Urine Color Urine Appearance Urine pH Ur Specific [place] Urine Protein Urine Glucose (UA) Urine Ketones Urine Blood Urine Nitrite Urine Bilirubin Urine Urobilinogen Ur Leukocyte Esterase Urine WBC (Auto) Urine RBC (Auto) Urine Mucus Active Medications Home Medications Medication Instructions Recorded Albuterol Sulfate Inhaler - 1 - 2 inh PO Q6H 05/03/17 [Ventolin HFA Inhaler -] Amlodipine Besylate [Norvasc -] 10 mg PO DAILY 05/03/17 Pregabalin [Lyrica] 75 mg PO HS 05/03/17 Sevelamer Carbonate [Renvela -] 800 mg PO TIDCM #90 tab 05/08/17 Calcitriol [Rocaltrol] 0.25 mcg PO ASDIR 10/09/17 Cyclosporine [Restasis] 1 each OP BID 10/09/17 Fluticasone/Umeclidin/Vilanter 1 each IH DAILY 10/09/17 [Trelegy Ellipta 100-62.5-25] Furosemide [Lasix] 80 mg PO DAILY 10/09/17 Insulin Lispro [Humalog] 5 unit SQ TID 10/09/17 Levalbuterol HCl 1.25 mg IH Q8H 10/09/17 Metoprolol Succinate [Toprol Xl] 50 mg PO DAILY 10/09/17 Rosuvastatin Calcium [Crestor] 20 mg PO DAILY 10/09/17 Pantoprazole Sodium [Protonix -] 40 mg PO DAILY tablet.ec 10/13/17 Polyethylene Glycol 3350 [Miralax 17 gm PO TID #1 bottle 10/13/17 119 gm Btl -] Acetaminophen W/ Codeine #3 1 tab PO Q6H PRN #10 tablet MDD 4 11/12/17 [Tylenol # 3 -] Docusate Sodium [Colace] 100 mg PO BID #30 capsule 11/12/17 Current Medications Albuterol Sulfate (Ventolin 0.083% Nebulizer Soln -) 1 amp NEB Q4H PRN PRN Reason: SHORT OF BREATH/WHEEZING Amlodipine Besylate (Norvasc -) 10 mg PO DAILY [facility] Heparin Sodium (Porcine) (Heparin -) 5,000 unit SQ TID [facility] Ceftriaxone Sodium 1 gm/ (Dextrose) 50 mls @ 100 mls/hr IVPB DAILY [facility]; Protocol Azithromycin (Zithromax 500mg Ivpb (Pre-Docked)) 500 mg in 250 mls @ 250 mls/ hr IVPB DAILY [facility] Dextrose (D5w -) 1,000 mls @ 42 mls/hr IV .[id number] [facility] Insulin Aspart (Novolog Vial Sliding Scale -) 1 vial SQ ACHS [facility]; Protocol Metoprolol Succinate (Toprol Xl -) 50 mg PO DAILY [facility] Ondansetron HCl (Zofran Injection) 4 mg IVPUSH Q4H PRN PRN Reason: NAUSEA AND/OR VOMITING Pantoprazole Sodium (Protonix Iv) 40 mg IVPUSH DAILY [facility] Rosuvastatin Calcium (Crestor -) 20 mg PO HS [facility] Sevelamer Carbonate (Renvela -) 800 mg PO TIDCM [facility] ASSESSMENT/PLAN: An 87 y.o. F w/ PMHx. COPD (on 2L O2), HTN, nephrolithiasis, GERD, DM, HLD, frequent UTIs, GI bleed, stage IV CKD w/ A/V fistula (placed but not on HD.) presents with nausea and NB/NB vomiting for 2 days, cough and generalized weakness for 1 week. #R/O CAP -CT a/p and CXR demonstrate RLL consolidation -will treat empirically for PNA as CXR may be delayed in showing infiltrates -c/w ceftriaxone and azithromycin -F/u blood Cx, sputum Cx. -ESR: 20 (wnl) #Nausea/ Vomiting -Questionable presence of abdominal pain, none on exam -symptoms suggestive of viral gastroenteritis, may also be post-tussive emesis -abnormal CT findings could represent chronic gastritis and/or neoplastic process driving current symptoms -may require endoscopic evaluation; inpatient endoscopy is advisable given prior LTF -c/w Ondansetron 4mg q4h -nephrology(Dr. Reis) consult: hold Lasix for today, f/u Cx., no HD today but will talk to family about Dialysis tomorrow #Dementia vs. Uremic Encephalopathy -Pt. likely has a combination of both pathologies. As noted from conversation from daughter, Pt. has been in progressive neurocognitive decline for years but has had a rapid decrease in function and mental status over the last week. -Pt. not currently receiving treatment for dementia -monitor Pt. for signs of improvement #Pericardial effusion -enlarging -Moderate pericardial effusion seen on CT, also seen on echo: normal LV size, thickness and function, mild to moderate MR, severe TR, RV systolic pressure above 60mmHg, no signs of tamponade -cardiology(Dr. León) consulted: no clinical signs of tamponade -consider cardiac monitoring #CKD -Nephrology (Dr. Reis) consulted -no HD as yet -electrolytes currently wnl, f/u urine electrolytes, urea and creatinine -D5W -hold Lasix given likely dehydration in setting of vomiting -c/w sevelamer #GERD -c/w IV Protonix 40mg #DM -Pt. not currently on treatment at home -BGM ACHS -SSI -A1c: 5.7%- consider taking off sliding scale #HTN -c/w Norvasc 10mg -c/w Metoprolol Succinate 50mg Daily -Of note Pt. has not picked up medications since January because medications were on hold? by Dr. Reid Marrufo #HLD -c/w Rosuvastatin #F/E/N -D5W @ 42mls/hr -monitor and correct electrolytes -renal/diabetic diet #PPx -DVT: heparin subq -GI: IV protonix #Code -full #Dispo -Med/Surg Pt.s daughter Heather Francis ([phone])- Can be contacted for translation. Visit type - Emergency Visit Emergency Visit: Yes ED Registration Date: 02/11/18 Care time: The patient presented to the Emergency Department on the above date and was hospitalized for further evaluation of their emergent condition. - New Patient This patient is new to me today: Yes Date on this admission: 02/11/18 - Critical Care Critical Care patient: No - Discharge Referral Referred to [facility] Med [facility] No
[2018-02-11] MEDS ORDERED: cefTRIAXone SODIUM 1 GM VIAL ONE (10:55)
[2018-02-11] MEDS ORDERED: DEXTROSE 5%-WATER - 50 ML IVPB ONE (10:55)
--- NOTE | 2018-02-11 11:43 | CON.CARD ---
Consult Consult Specialty:: Cardiology - History of Present Illness History of Present Illness: Ms. Crouch is an 87 yo female w/ pmh of asthma, COPD (on home O2), HTN, nephrolithiasis, frequent UTIs, prior gastrointestinal bleed, CKD stage IV (L A/ V fistula currently maturing but not in use at this time) who presents for evaluation of 1 week of weakness complicated by 1 day history of nausea/ vomiting with abdominal pain. Patient is creole speaking and daughters who are with her translate. Patient also endorses 2 day history of diarrhea as well. The patient denies chest pain, shortness of breath, headache and dizziness. Denies fever, chills, and constipation. Denies dysuria, frequency, urgency and hematuria. - History Source History Provided By: Patient, Medical Record - Past Medical History Cardio/Vascular: Yes: HTN Pulmonary: Yes: COPD Renal/: Yes: Renal Inusuff, Renal Calculi (maybe- she had flank pain) Endocrine: Yes: Diabetes Mellitus - Past Surgical History Past Surgical History: Yes: AV Fistula/Graft - Alcohol/Substance Use Hx Alcohol Use: No - Smoking History Smoking history: Former smoker Have you smoked in the past 12 months: No Aproximately how many cigarettes per day: 0 Home Medications - Allergies Allergies/Adverse Reactions: Allergies Allergy/AdvReac Type Severity Reaction Status Date / Time No Known Allergies Allergy Verified 10/08/17 17:57 - Home Medications Home Medications: Ambulatory Orders Albuterol Sulfate Inhaler - [Ventolin HFA Inhaler -] 1 - 2 inh PO Q6H 05/03/17 Amlodipine Besylate [Norvasc -] 10 mg PO DAILY 05/03/17 Pregabalin [Lyrica] 75 mg PO HS 05/03/17 Sevelamer Carbonate [Renvela -] 800 mg PO TIDCM #90 tab 05/08/17 Calcitriol [Rocaltrol] 0.25 mcg PO ASDIR 10/09/17 Cyclosporine [Restasis] 1 each OP BID 10/09/17 Fluticasone/Umeclidin/Vilanter [Trelegy Ellipta 100-62.5-25] 1 each IH DAILY 11/18 Furosemide [Lasix] 80 mg PO DAILY 10/09/17 Insulin Lispro [Humalog] 5 unit SQ TID 10/09/17 Levalbuterol HCl 1.25 mg IH Q8H 10/09/17 Metoprolol Succinate [Toprol Xl] 50 mg PO DAILY 10/09/17 Rosuvastatin Calcium [Crestor] 20 mg PO DAILY 10/09/17 Pantoprazole Sodium [Protonix -] 40 mg PO DAILY tablet.ec 10/13/17 Polyethylene Glycol 3350 [Miralax 119 gm Btl -] 17 gm PO TID #1 bottle 10/13/17 Acetaminophen W/ Codeine #3 [Tylenol # 3 -] 1 tab PO Q6H PRN #10 tablet MDD 4 Docusate Sodium [Colace] 100 mg PO BID #30 capsule 11/12/17 Review of Systems - Review of Systems Constitutional: reports: Weakness Eyes: reports: No Symptoms HENT: reports: No Symptoms Neck: reports: No Symptoms Cardiovascular: reports: No Symptoms Gastrointestinal: reports: Nausea, Vomiting Genitourinary: reports: No Symptoms Breasts: reports: No Symptoms Reported Musculoskeletal: reports: No Symptoms Integumentary: reports: No Symptoms Neurological: reports: No Symptoms Endocrine: reports: No Symptoms Hematology/Lymphatic: reports: No Symptoms Psychiatric: reports: No Symptoms Vital Signs: Vital Signs Temperature 98.4 F 02/11/18 09:00 Pulse Rate 83 02/11/18 09:00 Respiratory Rate 20 02/11/18 09:00 Blood Pressure 156/73 02/11/18 09:00 O2 Sat by Pulse Oximetry (%) 99 02/11/18 04:55 Constitutional: Yes: Well Nourished, No Distress, Calm Eyes: Yes: WNL, Conjunctiva Clear, EOM Intact HENT: Yes: WNL, Atraumatic, Normocephalic Neck: Yes: WNL, Supple, Trachea Midline Respiratory: Yes: WNL, Regular, CTA Bilaterally Gastrointestinal: Yes: WNL, Normal Bowel Sounds Renal/: Yes: WNL Cardiovascular: Yes: WNL, Regular Rate and Rhythm Musculoskeletal: Yes: WNL Extremities: Yes: WNL Integumentary: Yes: WNL Neurological: Yes: WNL, Alert, Oriented ...Motor Strength: WNL Psychiatric: Yes: WNL, Alert, Oriented - Other Data Labs, Other Data: CBC, BMP 02/11/18 07:45 Troponin, BNP 02/10/18 02/11/18 02/11/18 19:00 03:49 07:45 Troponin I 0.02 0.04 < 0.02 Troponin, BNP 02/10/18 02/11/18 02/11/18 19:00 03:49 07:45 Troponin I 0.02 0.04 < 0.02 Laboratory Tests 02/10/18 02/10/18 02/10/18 18:45 19:00 19:00 WBC 4.6 RBC 3.43 L Hgb 9.3 L Hct 27.4 L MCV 80.1 MCH 27.1 MCHC 33.9 RDW 16.3 H Plt Count 250 D MPV 9.4 Absolute Neuts (auto) 3.7 Neutrophils % 79.2 D Lymphocytes % 12.3 D Monocytes % 8.1 Eosinophils % 0.1 D Basophils % 0.3 Nucleated RBC % 0 ESR Sodium 146 H Potassium 4.0 Chloride 106 Carbon Dioxide 33 H Anion Gap 8 BUN 47 H Creatinine 4.8 H Creat Clearance w eGFR 8.58 POC Glucometer Random Glucose 128 H Hemoglobin A1c % Calcium 9.2 Phosphorus Magnesium Total Bilirubin 1.2 H AST 18 ALT 27 Alkaline Phosphatase 80 Creatine Kinase 141 Troponin I 0.02 C-Reactive Protein Total Protein 7.1 Albumin 4.0 Urine Color Straw Urine Appearance Clear Urine pH 8.0 D Ur Specific [place] 1.008 L Urine Protein 3+ H Urine Glucose (UA) Negative Urine Ketones Negative Urine Blood Negative Urine Nitrite Negative Urine Bilirubin Negative Urine Urobilinogen Negative Ur Leukocyte Esterase Negative Urine WBC (Auto) 1 Urine RBC (Auto) <1 Urine Mucus Rare 02/11/18 02/11/18 02/11/18 03:49 06:33 07:45 WBC 4.2 RBC 3.05 L Hgb 8.3 L Hct 24.6 L MCV 80.8 MCH 27.1 MCHC 33.5 RDW 16.7 H Plt Count 213 MPV 8.3 D Absolute Neuts (auto) 2.9 Neutrophils % 68.8 Lymphocytes % 20.8 D Monocytes % 9.3 Eosinophils % 0.6 D Basophils % 0.5 Nucleated RBC % 0 ESR Sodium Potassium Chloride Carbon Dioxide Anion Gap BUN Creatinine Creat Clearance w eGFR POC Glucometer 112 Random Glucose Hemoglobin A1c % Calcium Phosphorus Magnesium Total Bilirubin AST ALT Alkaline Phosphatase Creatine Kinase Troponin I 0.04 C-Reactive Protein Total Protein Albumin Urine Color Urine Appearance Urine pH Ur Specific [place] Urine Protein Urine Glucose (UA) Urine Ketones Urine Blood Urine Nitrite Urine Bilirubin Urine Urobilinogen Ur Leukocyte Esterase Urine WBC (Auto) Urine RBC (Auto) Urine Mucus 02/11/18 02/11/18 02/11/18 07:45 07:45 07:45 WBC RBC Hgb Hct MCV MCH MCHC RDW Plt Count MPV Absolute Neuts (auto) Neutrophils % Lymphocytes % Monocytes % Eosinophils % Basophils % Nucleated RBC % ESR 20 Sodium 159 H Potassium 4.3 Chloride 116 H Carbon Dioxide 33 H Anion Gap 10 BUN 43 H Creatinine 4.6 H Creat Clearance w eGFR 9.01 POC Glucometer Random Glucose 91 Hemoglobin A1c % Calcium 8.9 Phosphorus 5.4 H Magnesium 2.4 Total Bilirubin 1.3 H AST 29 ALT 33 Alkaline Phosphatase 100 Creatine Kinase Troponin I < 0.02 C-Reactive Protein < 0.3 Total Protein 6.5 Albumin 3.5 Urine Color Urine Appearance Urine pH Ur Specific [place] Urine Protein Urine Glucose (UA) Urine Ketones Urine Blood Urine Nitrite Urine Bilirubin Urine Urobilinogen Ur Leukocyte Esterase Urine WBC (Auto) Urine RBC (Auto) Urine Mucus 02/11/18 07:45 WBC RBC Hgb Hct MCV MCH MCHC RDW Plt Count MPV Absolute Neuts (auto) Neutrophils % Lymphocytes % Monocytes % Eosinophils % Basophils % Nucleated RBC % ESR Sodium Potassium Chloride Carbon Dioxide Anion Gap BUN Creatinine Creat Clearance w eGFR POC Glucometer Random Glucose Hemoglobin A1c % 5.7 Calcium Phosphorus Magnesium Total Bilirubin AST ALT Alkaline Phosphatase Creatine Kinase Troponin I C-Reactive Protein Total Protein Albumin Urine Color Urine Appearance Urine pH Ur Specific [place] Urine Protein Urine Glucose (UA) Urine Ketones Urine Blood Urine Nitrite Urine Bilirubin Urine Urobilinogen Ur Leukocyte Esterase Urine WBC (Auto) Urine RBC (Auto) Urine Mucus Imaging - Results Chest X-ray: Image Reviewed (no i/e) Cat Scan: Report Reviewed (moderate pericardial effusion) EKG: Image Reviewed (sr apcs rep abn) Problem List - Problems (1) Abnormal CT of the abdomen Code(s): R93.5 - ABN FINDINGS ON DX IMAGING OF ABD REGIONS, INC RETROPERITON (2) Dyspnea Code(s): R06.00 - DYSPNEA, UNSPECIFIED (3) Epigastric abdominal pain Code(s): R10.13 - EPIGASTRIC PAIN (4) Esophagitis Code(s): K20.9 - ESOPHAGITIS, UNSPECIFIED (5) GIB (gastrointestinal bleeding) Code(s): K92.2 - GASTROINTESTINAL HEMORRHAGE, UNSPECIFIED (6) Gastritis Code(s): K29.70 - GASTRITIS, UNSPECIFIED, WITHOUT BLEEDING (7) COPD exacerbation Code(s): J44.1 - CHRONIC OBSTRUCTIVE PULMONARY DISEASE W (ACUTE) EXACERBATION (8) Chronic kidney disease Code(s): N18.9 - CHRONIC KIDNEY DISEASE, UNSPECIFIED (9) Diabetes Code(s): E11.9 - TYPE 2 DIABETES MELLITUS WITHOUT COMPLICATIONS (10) Hypercholesterolemia Code(s): E78.00 - PURE HYPERCHOLESTEROLEMIA, UNSPECIFIED (11) Hypertension Code(s): I10 - ESSENTIAL (PRIMARY) HYPERTENSION (12) Pneumonia Code(s): J18.9 - PNEUMONIA, UNSPECIFIED ORGANISM Assessment/Plan asthma, COPD (on home O2), HTN, nephrolithiasis, frequent UTIs, prior gastrointestinal bleed, CKD stage IV (L A/V fistula currently maturing but not in use at this time) who presents for evaluation of 1 week of weakness complicated by 1 day history of nausea/vomiting with abdominal pain. CT showed moderate pericardial effusion. Plan echo GI w/u will f/u clinnically not in tamponade
[2018-02-11 11:55] LABS: ANION GAP 8 MMOL/L (8-16); BLOOD UREA NITROGEN 43 mg/dL (7-18); CALCIUM 8.7 mg/dL (8.5-10.1); CHLORIDE 104 mmol/L (98-107); CO2 33 mmol/L (21-32); CREATININE 4.8 mg/dL (0.55-1.3); GLUCOSE,RANDOM 132 mg/dL (74-106); POTASSIUM 3.7 mmol/L (3.5-5.1); SODIUM 144 mmol/L (136-145)
[2018-02-11] MEDS: SEVELAMER CARBONATE 800 MG TAB (FP) PO SCH ×2 (12:10→17:43)
[2018-02-11] MEDS: INSULIN SLIDING SCALE (NOVOLOG) 1 VIAL SQ SCH ×2 (12:12→17:32)
--- NOTE | 2018-02-11 12:33 | PN ---
Progress Note, Physician History of Present Illness: Pt seen and examined at bedside. She is awake and appears much more comfortable. She denies shortness of breath. - Current Medication List Current Medications: Active Medications Albuterol Sulfate (Ventolin 0.083% Nebulizer Soln -) 1 amp NEB Q4H PRN PRN Reason: SHORT OF BREATH/WHEEZING Amlodipine Besylate (Norvasc -) 10 mg PO DAILY [facility] Last Admin: 02/11/18 10:19 Dose: 10 mg Heparin Sodium (Porcine) (Heparin -) 5,000 unit SQ TID [facility] Ceftriaxone Sodium 1 gm/ (Dextrose) 50 mls @ 100 mls/hr IVPB DAILY [facility]; Protocol Last Admin: 02/11/18 10:20 Dose: 100 mls/hr Azithromycin (Zithromax 500mg Ivpb (Pre-Docked)) 500 mg in 250 mls @ 250 mls/ hr IVPB DAILY [facility] Last Admin: 02/11/18 12:09 Dose: 250 mls/hr Dextrose (D5w -) 1,000 mls @ 42 mls/hr IV .[id number] [facility] Insulin Aspart (Novolog Vial Sliding Scale -) 1 vial SQ ACHS [facility]; Protocol Last Admin: 02/11/18 12:12 Dose: Not Given Metoprolol Succinate (Toprol Xl -) 50 mg PO DAILY [facility] Last Admin: 02/11/18 10:19 Dose: 50 mg Ondansetron HCl (Zofran Injection) 4 mg IVPUSH Q4H PRN PRN Reason: NAUSEA AND/OR VOMITING Pantoprazole Sodium (Protonix Iv) 40 mg IVPUSH DAILY [facility] Last Admin: 02/11/18 10:19 Dose: 40 mg Rosuvastatin Calcium (Crestor -) 20 mg PO HS [facility] Sevelamer Carbonate (Renvela -) 800 mg PO TIDCM [facility] Last Admin: 02/11/18 12:10 Dose: 800 mg - Objective Vital Signs: Vital Signs Temperature 98.4 F 02/11/18 09:00 Pulse Rate 83 02/11/18 09:00 Respiratory Rate 20 02/11/18 09:00 Blood Pressure 156/73 02/11/18 09:00 O2 Sat by Pulse Oximetry (%) 99 02/11/18 04:55 Constitutional: Yes: Calm Eyes: Yes: Conjunctiva Clear HENT: Yes: Atraumatic Cardiovascular: Yes: S1, S2 Respiratory: Yes: On Nasal O2 Gastrointestinal: Yes: Normal Bowel Sounds, Soft Genitourinary: Yes: WNL Musculoskeletal: Yes: WNL Extremities: Yes: Other (fistula with thrill and bruit) Edema: No Neurological: Yes: Oriented Psychiatric: Yes: Oriented Labs: CBC, BMP 02/11/18 07:45 02/11/18 11:00 Problem List - Problems (1) Esophagitis Code(s): K20.9 - ESOPHAGITIS, UNSPECIFIED (2) Chronic kidney disease Code(s): N18.9 - CHRONIC KIDNEY DISEASE, UNSPECIFIED (3) Diabetes Code(s): E11.9 - TYPE 2 DIABETES MELLITUS WITHOUT COMPLICATIONS Assessment/Plan Current Medications Generic Name Dose Route Start Last Admin Trade Name Freq PRN Reason Stop Dose Admin Albuterol Sulfate 1 amp 02/11/18 08:13 Ventolin 0.083% Nebulizer Soln - NEB Q4H PRN SHORT OF BREATH/WHEEZING Amlodipine Besylate 10 mg 02/11/18 10:00 02/11/18 10:19 Norvasc - PO 10 mg DAILY [facility] Administration Heparin Sodium (Porcine) 5,000 unit 02/11/18 14:00 Heparin - SQ TID [facility] Ceftriaxone Sodium 1 gm/ 50 mls @ 100 mls/hr 02/11/18 05:47 02/11/18 10:20 Dextrose IVPB 100 mls/hr DAILY [facility] Administration Protocol Azithromycin 500 mg in 250 mls @ 250 mls/hr 02/11/18 10:00 02/11/18 12:09 Zithromax 500mg Ivpb (Pre-Docked) IVPB 250 mls/hr DAILY [facility] Administration Dextrose 1,000 mls @ 42 mls/hr 02/11/18 10:15 D5w - IV .[id number] [facility] Insulin Aspart 1 vial 02/11/18 11:00 02/11/18 12:12 Novolog Vial Sliding Scale - SQ Not Given ACHS [facility] Protocol Metoprolol Succinate 50 mg 02/11/18 10:00 02/11/18 10:19 Toprol Xl - PO 50 mg DAILY [facility] Administration Ondansetron HCl 4 mg 02/11/18 08:13 Zofran Injection IVPUSH Q4H PRN NAUSEA AND/OR VOMITING Pantoprazole Sodium 40 mg 02/11/18 10:00 02/11/18 10:19 Protonix Iv IVPUSH 40 mg DAILY [facility] Administration Rosuvastatin Calcium 20 mg 02/11/18 22:00 Crestor - PO HS [facility] Sevelamer Carbonate 800 mg 02/11/18 12:00 02/11/18 12:10 Renvela - PO 800 mg TIDCM [facility] Administration Laboratory Tests 02/10/18 02/11/18 02/11/18 19:00 07:45 11:00 Sodium 146 H 159 H 144 Impression 1. CKD 2. HTN 3. HLD 4. COPD 5. DM 6. pos heb b core 7. abd pain 8. vomiting 9. anemia Plan - repeat sodium is actually in normal range - will give d5w for a few hours - PO intake is improved - hold lasix today - follow cultures - will not start HD at this time - discussed case with her daughter - will follow Dr Reis
--- NOTE | 2018-02-11 14:07 | PN ---
Teaching Attending Note Name of Resident: Catia Mukherjee ATTENDING PHYSICIAN STATEMENT I saw and evaluated the patient. I reviewed the resident's note and discussed the case with the resident. I agree with the resident's findings and plan as documented. SUBJECTIVE: she feels al ittle better , denies any pain. hasno SOB. was hypoxic earlier this am , O2 was increased to 5 L . no N/V and was able to tolerate her food OBJECTIVE: NAD CV: RRR, , JVD Lungs: b/l cracklesa t bases Abd:soft, NT, ND , NL BS Ext : no edema A/P 87 y/o lady with h/o CKD V, COPD on home O2, GERD, htn, HLP, DM, and other medical problems who presented with N/V and was found ot have RLL PNA 1- RLL CAP: CT image and Cxray reviewed. cont Azithro and CEftriaxone . QTC 420. follow blood cultures , legionella AG and sputum cx 2- N/V : likely due to PNA. CT with no obstruction but with gastric wall thickening. family was made aware and will nilson full GI w/u as out pt PPI while here 3- Pericardial effusion : echo to further characterize. no clinical signs of tamponade likely due to uremia check TSH ? HD card eval done 4- hypernatremia, dehydration . due to N/V . repeat NA was NL. likely the acute jump was not real. looks euvolemic on exam received IVF , and on D5w per renal now hold lasix 5- COPD 6- DM : SSI
--- NOTE | 2018-02-11 14:08 | ECHO ---
Name: BRIAN ONEILL Olivia Exam:Adult Echocardiogram Study Date: 02/11/2018 10:01 AM Age: 87 yrs Reason For Study: Pericardial Effusion Height: 63 in Weight: 140 lb BSA: 1.7 m2 MMode/2D Measurements & Calculations IVSd: 1.1 cm Ao root diam: 2.8 cm LVIDd: 4.4 cm LA dimension: 3.8 cm LVIDs: 2.6 cm LVPWd: 1.0 cm EDV(Teich): 88.8 ml ESV(Teich): 25.2 ml Doppler Measurements & Calculations TR max aura: 393.6 cm/sec TR max P.2 mmHg Procedure A two-dimensional transthoracic echocardiogram with color flow and Doppler was performed. Left Ventricle The left ventricular size, thickness and function are normal. The left ventricular ejection fraction is normal. The left ventricular wall motion is normal. Right Ventricle The right ventricle is normal in size and function. Atria Normal left and right atrial size and function. Mitral Valve There is mild mitral valve thickening. There is no mitral valve stenosis. There is mild to moderate m itral regurgitation. Tricuspid Valve There is mild tricuspid valve thickening. There is no tricuspid stenosis. There is severe tricuspid regurgitation. Right ventricular systolic pressure is elevated at >60mmHg. Aortic Valve The aortic valve is normal in structure and function. No hemodynamically significant valvular aortic stenosis. No aortic regurgitation is present. Pulmonic Valve The pulmonic valve is not well visualized. Great Vessels The aortic root is normal size. Pericardium/Pleura Moderate pericardial effusion (1-2 cm). in comparison to previous ECHO on 10-09-2017 pericardial efussi on has increased. A circumferential pericardial effusion is noted. There are no echocardiographic indication s of cardiac tamponade. Interpretation Summary The left ventricular size, thickness and function are normal The left ventricular ejection fraction is normal. Moderate pericardial effusion (1-2 cm) in comparison to previous ECHO on 10-09-2017 pericardial efussion has increased. There is mild to moderate mitral regurgitation. There is severe tricuspid regurgitation. Right ventricular systolic pressure is elevated at >60mmHg. A circumferential pericardial effusion is noted. There are no echocardiographic indications of cardiac tamponade. The left ventricular wall motion is normal. MD Jez León 02/11/2018 02:08 PM
[2018-02-11] MEDS: HEPARIN NA (PORCINE) 5,000 UNITS/ML 1ML VIAL SQ SCH ×2 (14:54→21:50)
[2018-02-11] MEDS ORDERED: ROSUVASTATIN CA 10 MG TABLET (FP) ONE (21:46)
[2018-02-11] MEDS: ROSUVASTATIN CA 20 MG TABLET (FP) PO SCH (21:50)
[2018-02-11] MEDS ORDERED: ROSUVASTATIN CA 20 MG TABLET (FP) PO SCH (22:00)
[2018-02-12] MEDS: HEPARIN NA (PORCINE) 5,000 UNITS/ML 1ML VIAL SQ SCH ×3 (05:51→21:40)
[2018-02-12 07:19] LABS: BASO % 0.4 % (0-2.0); EOS % 1.7 % (0-4.5); HEMATOCRIT 26.4 % (32.4-45.2); HEMOGLOBIN 8.3 GM/dL (10.7-15.3); LYMPH % 27.8 % (8-40); MCH 25.6 pg (25.7-33.7); MCHC 31.3 g/dl (32.0-36.0); MEAN CELL VOLUME 81.7 fl (80-96); MEAN PLT VOLUME 8.6 fl (7.5-11.1); MONO % 5.5 % (3.8-10.2); NEUT % 64.6 % (42.8-82.8); PLATELET COUNT 204 K/MM3 (134-434); RBC 3.23 M/mm3 (3.60-5.2); RDW 16.6 % (11.6-15.6); WHITE BLOOD COUNT 5.5 K/mm3 (4.0-10.0)
[2018-02-12 08:27] LABS: ANION GAP 9 MMOL/L (8-16); BILIRUBIN,TOTAL 0.9 mg/dL (0.2-1); BLOOD UREA NITROGEN 47 mg/dL (7-18); CALCIUM 8.7 mg/dL (8.5-10.1); CHLORIDE 100 mmol/L (98-107); CO2 31 mmol/L (21-32); CREATININE 5.3 mg/dL (0.55-1.3); GLUCOSE,RANDOM 100 mg/dL (74-106); MAGNESIUM 2.1 mg/dL (1.8-2.4); PHOSPHOROUS 4.6 mg/dL (2.5-4.9); POTASSIUM 4.1 mmol/L (3.5-5.1); SODIUM 139 mmol/L (136-145)
[2018-02-12] MEDS: SEVELAMER CARBONATE 800 MG TAB (FP) PO SCH ×3 (08:55→17:33)
[2018-02-12] MEDS ORDERED: cefTRIAXone SODIUM 1 GM VIAL ONE (09:56)
[2018-02-12] MEDS ORDERED: DEXTROSE 5%-WATER - 50 ML IVPB ONE (09:56)
--- NOTE | 2018-02-12 10:42 | PN ---
Teaching Attending Note Name of Resident: Lloyd Akins ATTENDING PHYSICIAN STATEMENT I saw and evaluated the patient. I reviewed the resident's note and discussed the case with the resident. I agree with the resident's findings and plan as documented. SUBJECTIVE: practice assistant phone was used, but patient dod not cooperate with it and could not hear. she did now allow exam as well. over night events were noted for confusion and pulling her IV line ASSESSMENT AND PLAN: 87 y/o lady with h/o CKD V, COPD on home O2, GERD, HTN, HLP, DM, and other medical problems who presented with N/V and was found to have RLL PNA 1- RLL CAP: lost IV access, and has no leukocytosis , fever , or vomiting. switch Abx to po vantin and azithro with adjusted dosing fro her CrCl of 7 legionella AG pending , will straight cath no sputum production. blood cx neg to date 2- N/V : likely due to PNA. resolved . tolerated diet PPI f/u with GI fro endoscopy due to gastric wall thickening noted on CT scan 3- Pericardial effusion: echo with no echocardiographic evidence of tamponate, and clinically remains with no tachycardia, or hypotension effusion is likely due to uremia. TSH NL d/w Dr. Resi, no urgent indication fro HD at this point. family prefer to start HD after new year 4- Dehydration : Unfortunately, I am not able to assess her volume status without exam, buther Cr increased today. will d/w renal if IVF still needed 5- acute delirium: family to stay with her. avoid any sedatives meds. discharge home as soon as possible . 6- COPD 7- DM : SSI PT eval. dispo if volume status is felt to be euvolemic and no IVF needed , then will plan for dc
[2018-02-12] MEDS: amLODIPine BESYLATE 10 MG TABLET (FP) PO SCH (10:50)
[2018-02-12] MEDS ORDERED: CEFPODOXIME PROXETIL 100 MG TABLET PO SCH (11:10)
[2018-02-12] MEDS: AZITHROMYCIN 250 MG TABLET PO SCH (11:55)
--- NOTE | 2018-02-12 11:57 | PN ---
Physical Exam: SUBJECTIVE: Patient seen and examined. Pt. was agitated over night, pulled out her IV multiple times. Pt. had no fevers or chills overnight. Pt. had no BMs overnight. After discussion with family Pt. was confused because Pt. was in ED, fell asleep and awoke when she was in her room so she became confused and thought she was at her neighbors house. When she got out of bed and attempted to go home, security had been called so she then thought she was in [facility]. Pt. is still confused and per family it will take some time to have her become more reoriented to her location. OBJECTIVE: Vital Signs Period Temp Pulse Resp BP Sys/Betancourt Pulse Ox Last 24 Hr 98.2 F-98.4 F 72-76 20-20 120-164/51-72 92-98 GENERAL: The patient is awake and alert to name only, in no acute distress HEAD: Normal with no signs of trauma. EYES: PERRL, sclera anicteric, conjunctiva clear. No ptosis. ENT: Ears normal, nares patent, moist mucous membranes. LUNGS: Breath sounds equal, clear to auscultation bilaterally, no wheezes, no crackles, no accessory muscle use. HEART: Regular rate and rhythm, S1, S2 without murmur ABDOMEN: Soft, nontender, nondistended, normoactive bowel sounds, no guarding, no rebound, no CVA tenderness EXTREMITIES: 2+ dorsal pedal pulses, warm, no calf tenderness, well-perfused, no edema. NEUROLOGICAL: Confused vs. delirious PSYCH: Pt. was noncooperative with physical exam. SKIN: Warm, dry, normal turgor Laboratory Results - last 24 hr 02/11/18 02/12/18 02/12/18 11:57 06:30 06:30 WBC 5.5 RBC 3.23 L Hgb 8.3 L Hct 26.4 L MCV 81.7 MCH 25.6 L MCHC 31.3 L RDW 16.6 H Plt Count 204 MPV 8.6 Absolute Neuts (auto) 3.5 Neutrophils % 64.6 Lymphocytes % 27.8 D Monocytes % 5.5 Eosinophils % 1.7 D Basophils % 0.4 Nucleated RBC % 0 Sodium 139 Potassium 4.1 Chloride 100 Carbon Dioxide 31 Anion Gap 9 BUN 47 H Creatinine 5.3 H Creat Clearance w eGFR 7.65 POC Glucometer 196 Random Glucose 100 Calcium 8.7 Phosphorus 4.6 Magnesium 2.1 Total Bilirubin 0.9 TSH 1.91 Free T4 1.09 Active Medications Home Medications Medication Instructions Recorded Albuterol Sulfate Inhaler - 1 - 2 inh PO Q6H 05/03/17 [Ventolin HFA Inhaler -] Amlodipine Besylate [Norvasc -] 10 mg PO DAILY 05/03/17 Pregabalin [Lyrica] 75 mg PO HS 05/03/17 Sevelamer Carbonate [Renvela -] 800 mg PO TIDCM #90 tab 05/08/17 Calcitriol [Rocaltrol] 0.25 mcg PO ASDIR 10/09/17 Cyclosporine [Restasis] 1 each OP BID 10/09/17 Fluticasone/Umeclidin/Vilanter 1 each IH DAILY 10/09/17 [Trelegy Ellipta 100-62.5-25] Furosemide [Lasix] 80 mg PO DAILY 10/09/17 Insulin Lispro [Humalog] 5 unit SQ TID 10/09/17 Levalbuterol HCl 1.25 mg IH Q8H 10/09/17 Metoprolol Succinate [Toprol Xl] 50 mg PO DAILY 10/09/17 Rosuvastatin Calcium [Crestor] 20 mg PO DAILY 10/09/17 Pantoprazole Sodium [Protonix -] 40 mg PO DAILY tablet.ec 10/13/17 Polyethylene Glycol 3350 [Miralax 17 gm PO TID #1 bottle 10/13/17 119 gm Btl -] Acetaminophen W/ Codeine #3 1 tab PO Q6H PRN #10 tablet MDD 4 11/12/17 [Tylenol # 3 -] Docusate Sodium [Colace] 100 mg PO BID #30 capsule 11/12/17 Esomeprazole Magnesium [Nexium 20 mg PO QID 02/11/18 24Hr] Isosorbibe Dinit/Hydralazine 1 each PO TID 02/11/18 [Bidil Tablet] Current Medications Albuterol Sulfate (Ventolin 0.083% Nebulizer Soln -) 1 amp NEB Q4H PRN PRN Reason: SHORT OF BREATH/WHEEZING Amlodipine Besylate (Norvasc -) 10 mg PO DAILY [facility] Last Admin: 02/12/18 10:50 Dose: 10 mg Azithromycin (Zithromax -) 250 mg PO DAILY [facility] Last Admin: 02/12/18 11:55 Dose: 250 mg Cefpodoxime Proxetil (Vantin -) 200 mg PO DAILY [facility] Heparin Sodium (Porcine) (Heparin -) 5,000 unit SQ TID [facility] Last Admin: 02/12/18 14:55 Dose: 5,000 unit Dextrose/Sodium Chloride (D5-1/3ns -) 500 mls @ 42 mls/hr IV ASDIR [facility] Stop: 02/13/18 00:29 Last Admin: 02/12/18 14:55 Dose: 42 mls/hr Metoprolol Succinate (Toprol Xl -) 50 mg PO DAILY [facility] Last Admin: 02/12/18 10:50 Dose: 50 mg Ondansetron HCl (Zofran Injection) 4 mg IVPUSH Q4H PRN PRN Reason: NAUSEA AND/OR VOMITING Pantoprazole Sodium (Protonix Iv) 40 mg IVPUSH DAILY [facility] Last Admin: 02/12/18 12:54 Dose: Not Given Rosuvastatin Calcium (Crestor -) 20 mg PO HS [facility] Last Admin: 02/11/18 21:50 Dose: 20 mg Sevelamer Carbonate (Renvela -) 800 mg PO TIDCM [facility] Last Admin: 02/12/18 12:40 Dose: 800 mg ASSESSMENT/PLAN: An 87 y.o. F w/ PMHx. COPD (on 2L O2), HTN, nephrolithiasis, GERD, DM, HLD, frequent UTIs, GI bleed, stage IV CKD w/ A/V fistula (placed but not on HD.) presents with nausea and NB/NB vomiting for 2 days, cough and generalized weakness for 1 week. #R/O CAP -CT a/p and CXR demonstrate RLL consolidation -c/w empirical treatment for PNA as CXR may be delayed in showing infiltrates -switched ceftriaxone and azithromycin to PO cefpodoxime and azithromycin -F/u blood Cx, sputum Cx.- NTD -ESR: 20 (wnl) -f/u Legionella Ag #Nausea/ Vomiting-resolved -Questionable presence of abdominal pain, none on exam -c/w Ondansetron 4mg q4h PRN -nephrology (Dr. Reis) consult: hold Lasix for today, f/u Cx., no HD today but will talk to family about Dialysis tomorrow #Dementia vs. Uremic Encephalopathy -Pt. likely has a combination of both pathologies. As noted from conversation from daughter, Pt. has been in progressive neurocognitive decline for years but has had a rapid decrease in function and mental status over the last week. -Pt. not currently receiving treatment for dementia -Monitor Pt. for signs of improvement #CKD -Nephrology (Dr. Reis) consulted -no HD as of yet -electrolytes currently wnl, f/u urine electrolytes, urea and creatinine -IVF -hold Lasix given likely dehydration in setting of vomiting -c/w sevelamer #Pericardial effusion-stable -Enlarged since last Echo -Moderate pericardial effusion seen on CT, also seen on echo: normal LV size, thickness and function, mild to moderate MR, severe TR, RV systolic pressure above 60mmHg, no signs of tamponade -cardiology (Dr. León) consulted: no clinical signs of tamponade -consider cardiac monitoring #GERD -c/w IV Protonix 40mg -Pt. denies any signs or symptoms at this time #DM -Pt. not currently on treatment at home -A1c: 5.7% -D/C-ed ISS and BGMs at this time #HTN -c/w Norvasc 10mg -c/w Metoprolol Succinate 50mg Daily -Of note Pt. has not picked up medications since January because medications were on hold? by Dr. Reid Marrufo #HLD -c/w Rosuvastatin #F/E/N -D/C-ed; started D5 1/3NS @ 42mls/hr -monitor and correct electrolytes -renal/diabetic diet #PPx -DVT: Hep SQ -GI: IV protonix #Code -full #Dispo -Med/Surg Pt.s daughter Heather Francis ([phone])- Health care proxy. Visit type - Emergency Visit Emergency Visit: Yes ED Registration Date: 02/11/18 Care time: The patient presented to the Emergency Department on the above date and was hospitalized for further evaluation of their emergent condition. - New Patient This patient is new to me today: No - Critical Care Critical Care patient: No - Discharge Referral Referred to [facility] Med P.C.: No
--- NOTE | 2018-02-12 12:04 | PN ---
Progress Note, Physician Chief Complaint: Pt sitting up at bedside, eating lunch; not dyspneic. History of Present Illness: Ms. Crouch is an 87 yo black woman w/ pmh of asthma, COPD (on home O2), HTN, nephrolithiasis, frequent UTIs, prior gastrointestinal bleed, CKD stage IV (L A/ V fistula currently maturing but not in use at this time) who presents for evaluation of 1 week of weakness complicated by 1 day history of nausea/ vomiting with abdominal pain. Patient is creole speaking and daughters who are with her translate. Patient also endorses 2 day history of diarrhea as well. - Current Medication List Current Medications: Active Medications Albuterol Sulfate (Ventolin 0.083% Nebulizer Soln -) 1 amp NEB Q4H PRN PRN Reason: SHORT OF BREATH/WHEEZING Amlodipine Besylate (Norvasc -) 10 mg PO DAILY [facility] Last Admin: 02/11/18 10:19 Dose: 10 mg Azithromycin (Zithromax -) 250 mg PO DAILY [facility] Cefpodoxime Proxetil (Vantin -) 200 mg PO DAILY [facility] Heparin Sodium (Porcine) (Heparin -) 5,000 unit SQ TID [facility] Last Admin: 02/12/18 05:51 Dose: 5,000 unit Metoprolol Succinate (Toprol Xl -) 50 mg PO DAILY [facility] Last Admin: 02/11/18 10:19 Dose: 50 mg Ondansetron HCl (Zofran Injection) 4 mg IVPUSH Q4H PRN PRN Reason: NAUSEA AND/OR VOMITING Pantoprazole Sodium (Protonix Iv) 40 mg IVPUSH DAILY [facility] Last Admin: 02/11/18 10:19 Dose: 40 mg Rosuvastatin Calcium (Crestor -) 20 mg PO HS [facility] Last Admin: 02/11/18 21:50 Dose: 20 mg Sevelamer Carbonate (Renvela -) 800 mg PO TIDCM [facility] Last Admin: 02/11/18 17:43 Dose: 800 mg - Objective Vital Signs: Vital Signs Temperature 98.2 F 02/12/18 02:00 Pulse Rate 72 02/12/18 08:00 Respiratory Rate 20 02/12/18 02:00 Blood Pressure 164/72 02/12/18 02:00 O2 Sat by Pulse Oximetry (%) 98 02/12/18 08:01 Constitutional: Yes: Calm Eyes: Yes: WNL HENT: Yes: WNL Neck: Yes: WNL Cardiovascular: Yes: S1, S2, S4 Respiratory: Yes: Regular Gastrointestinal: Yes: Soft ...Rectal Exam: Yes: Deferred Genitourinary: No: Anuria Breast(s): Yes: WNL Musculoskeletal: Yes: WNL Extremities: Yes: WNL Edema: No Peripheral Pulses WNL: Yes Integumentary: Yes: WNL Neurological: Yes: Alert Psychiatric: Yes: Other Labs: CBC, BMP 02/12/18 06:30 02/12/18 06:30 Abnormal Lab Results 02/12/18 02/12/18 06:30 06:30 RBC 3.23 L Hgb 8.3 L Hct 26.4 L MCH 25.6 L MCHC 31.3 L RDW 16.6 H BUN 47 H Creatinine 5.3 H - ....Imaging EKG: Image Reviewed (NSR; APCs) Problem List - Problems (1) Pericardial effusion Assessment/Plan: moderate amount of pericardial effusion ( increase from previous study); no evidence of cardiac tamponade. Normal WBCs; afebrile; BP WNL-->elevated. F/u clinically. Code(s): I31.3 - PERICARDIAL EFFUSION (NONINFLAMMATORY) (2) Diastolic CHF Code(s): I50.30 - UNSPECIFIED DIASTOLIC (CONGESTIVE) HEART FAILURE (3) Moderate to severe pulmonary hypertension Code(s): I27.20 - PULMONARY HYPERTENSION, UNSPECIFIED (4) COPD exacerbation Code(s): J44.1 - CHRONIC OBSTRUCTIVE PULMONARY DISEASE W (ACUTE) EXACERBATION (5) Chronic kidney disease Assessment/Plan: deteriorating since at least 05/2017; f/u with interior painter. Code(s): N18.9 - CHRONIC KIDNEY DISEASE, UNSPECIFIED (6) Diabetes Code(s): E11.9 - TYPE 2 DIABETES MELLITUS WITHOUT COMPLICATIONS (7) Hypercholesterolemia Assessment/Plan: on rosuvastatin. Code(s): E78.00 - PURE HYPERCHOLESTEROLEMIA, UNSPECIFIED (8) Hypertension Assessment/Plan: on amlodipine; f/u BP serially. Code(s): I10 - ESSENTIAL (PRIMARY) HYPERTENSION
[2018-02-12] MEDS: PANTOPRAZOLE SODIUM 40 MG VIAL IVPUSH SCH (12:54)
--- NOTE | 2018-02-12 14:23 | PN ---
Progress Note, Physician History of Present Illness: Pt seen and examined at bedside. She is agitated today. She did agree to physical exam. - Current Medication List Current Medications: Active Medications Albuterol Sulfate (Ventolin 0.083% Nebulizer Soln -) 1 amp NEB Q4H PRN PRN Reason: SHORT OF BREATH/WHEEZING Amlodipine Besylate (Norvasc -) [address] [facility] Last Admin: 02/12/18 10:50 Dose: 10 mg Azithromycin (Zithromax -) [address] [facility] Cefpodoxime Proxetil (Vantin -) [address] [facility] Heparin Sodium (Porcine) (Heparin -) 5,[address] [facility] Last Admin: 02/12/18 05:51 Dose: 5,000 unit Metoprolol Succinate (Toprol Xl -) [address] [facility] Last Admin: 02/12/18 10:50 Dose: 50 mg Ondansetron HCl (Zofran Injection) 4 mg IVPUSH Q4H PRN PRN Reason: NAUSEA AND/OR VOMITING Pantoprazole Sodium (Protonix Iv) [address] [facility] Last Admin: 02/12/18 12:54 Dose: Not Given Rosuvastatin Calcium (Crestor -) [address] [facility] Last Admin: 02/11/18 21:50 Dose: 20 mg Sevelamer Carbonate (Renvela -) [address] [facility] Last Admin: 02/12/18 12:40 Dose: 800 mg - Objective Vital Signs: Vital Signs Temperature 98.6 F 02/12/18 14:16 Pulse Rate 85 02/12/18 14:16 Respiratory Rate 20 02/12/18 02:00 Blood Pressure 161/80 02/12/18 14:16 O2 Sat by Pulse Oximetry (%) 98 02/12/18 08:01 Constitutional: Yes: Calm Eyes: Yes: Conjunctiva Clear HENT: Yes: Atraumatic Cardiovascular: Yes: S1, S2 Respiratory: Yes: On Nasal O2 Gastrointestinal: Yes: Soft Genitourinary: Yes: WNL Musculoskeletal: Yes: WNL Edema: No Neurological: Yes: Confusion Labs: CBC, BMP 02/12/18 06:30 02/12/18 06:30 Problem List - Problems (1) Esophagitis Code(s): K20.9 - ESOPHAGITIS, UNSPECIFIED (2) Chronic kidney disease Code(s): N18.9 - CHRONIC KIDNEY DISEASE, UNSPECIFIED (3) Diabetes Code(s): E11.9 - TYPE 2 DIABETES MELLITUS WITHOUT COMPLICATIONS Assessment/Plan Current Medications Generic Name Dose Route Start Last Admin Trade Name Freq PRN Reason Stop Dose Admin Albuterol Sulfate 1 amp 02/11/18 08:13 Ventolin 0.083% Nebulizer Soln - NEB Q4H PRN SHORT OF BREATH/WHEEZING Amlodipine Besylate 10 mg 02/11/18 10:00 02/12/18 10:50 Norvasc - PO 10 mg DAILY [facility] Administration Azithromycin 250 mg 02/12/18 11:10 Zithromax - PO DAILY [facility] Cefpodoxime Proxetil 200 mg 02/12/18 11:21 Vantin - PO DAILY [facility] Heparin Sodium (Porcine) 5,000 unit 02/11/18 14:00 02/12/18 05:51 Heparin - SQ 5,000 unit TID [facility] Administration Metoprolol Succinate 50 mg 02/11/18 10:00 02/12/18 10:50 Toprol Xl - PO 50 mg DAILY [facility] Administration Ondansetron HCl 4 mg 02/11/18 08:13 Zofran Injection IVPUSH Q4H PRN NAUSEA AND/OR VOMITING Pantoprazole Sodium 40 mg 02/11/18 10:00 02/12/18 12:54 Protonix Iv IVPUSH Not Given DAILY [facility] Rosuvastatin Calcium 20 mg 02/11/18 22:00 02/11/18 21:50 Crestor - PO 20 mg HS [facility] Administration Sevelamer Carbonate 800 mg 02/11/18 12:00 02/12/18 12:40 Renvela - PO 800 mg TIDCM [facility] Administration Impression 1. CKD 2. HTN 3. HLD 4. COPD 5. DM 6. pos heb b core 7. abd pain 8. vomiting 9. anemia Plan - renal function is worsening - will give more fluids - pt confused - called and left message for daughter to discuss HD - hold lasix today - follow cultures - will follow Dr Reis
[2018-02-12] MEDS ORDERED: DEXTROSE 5%-1/3 NS - 500 ML IV SCH (14:30)
[2018-02-12] MEDS ORDERED: MELATONIN 5 MG TABLETS PO ONE (21:32)
[2018-02-12] MEDS ORDERED: ROSUVASTATIN CA 10 MG TABLET (FP) ONE (21:36)
[2018-02-12] MEDS: ROSUVASTATIN CA 20 MG TABLET (FP) PO SCH (21:40)
[2018-02-13] MEDS: HEPARIN NA (PORCINE) 5,000 UNITS/ML 1ML VIAL SQ SCH ×3 (06:11→22:03)
[2018-02-13 07:21] LABS: BASO % 0.5 % (0-2.0); EOS % 1.4 % (0-4.5); HEMOGLOBIN 8.1 GM/dL (10.7-15.3); LYMPH % 18.2 % (8-40); MCH 25.6 pg (25.7-33.7); MCHC 31.3 g/dl (32.0-36.0); MEAN CELL VOLUME 81.8 fl (80-96); MONO % 8.3 % (3.8-10.2); NEUT % 71.6 % (42.8-82.8); PLATELET COUNT 197 K/MM3 (134-434); RBC 3.17 M/mm3 (3.60-5.2); RDW 16.6 % (11.6-15.6); WHITE BLOOD COUNT 4.7 K/mm3 (4.0-10.0)
[2018-02-13 08:17] LABS: ALBUMIN 3.5 g/dl (3.4-5.0); ALK PHOS 68 U/L (45-117); ANION GAP 7 MMOL/L (8-16); BILIRUBIN,TOTAL 0.8 mg/dL (0.2-1); BLOOD UREA NITROGEN 50 mg/dL (7-18); CALCIUM 8.4 mg/dL (8.5-10.1); CHLORIDE 102 mmol/L (98-107); CO2 32 mmol/L (21-32); CREATININE 5.2 mg/dL (0.55-1.3); GLUCOSE,RANDOM 124 mg/dL (74-106); MAGNESIUM 2.3 mg/dL (1.8-2.4); POTASSIUM 3.7 mmol/L (3.5-5.1); SGOT/AST 25 U/L (15-37); SGPT/ALT 27 U/L (13-61); SODIUM 141 mmol/L (136-145); TOT PROT 6.3 g/dl (6.4-8.2)
[2018-02-13] MEDS ORDERED: PT OWN MED DRAWER 7, Y5N ONE (10:56)
[2018-02-13] MEDS: SEVELAMER CARBONATE 800 MG TAB (FP) PO SCH ×3 (10:59→18:09)
[2018-02-13] MEDS: AZITHROMYCIN 250 MG TABLET PO SCH (10:59)
[2018-02-13] MEDS: PANTOPRAZOLE SODIUM 40 MG VIAL IVPUSH SCH (10:59)
[2018-02-13] MEDS: CEFPODOXIME PROXETIL 200 MG TABLET [NF] PO SCH (10:59)
[2018-02-13] MEDS: amLODIPine BESYLATE 10 MG TABLET (FP) PO SCH (10:59)
--- NOTE | 2018-02-13 12:06 | PN ---
Progress Note, Physician History of Present Illness: Pt seen and examined at bedside. She has been confused. - Current Medication List Current Medications: Active Medications Albuterol Sulfate (Ventolin 0.083% Nebulizer Soln -) 1 amp NEB Q4H PRN PRN Reason: SHORT OF BREATH/WHEEZING Amlodipine Besylate (Norvasc -) 10 mg PO DAILY [facility] Last Admin: 02/13/18 10:59 Dose: 10 mg Azithromycin (Zithromax -) 250 mg PO DAILY [facility] Last Admin: 02/13/18 10:59 Dose: 250 mg Cefpodoxime Proxetil (Vantin -) 200 mg PO DAILY [facility] Last Admin: 02/13/18 10:59 Dose: 200 mg Heparin Sodium (Porcine) (Heparin -) 5,000 unit SQ TID [facility] Last Admin: 02/13/18 06:11 Dose: 5,000 unit Metoprolol Succinate (Toprol Xl -) 50 mg PO DAILY [facility] Last Admin: 02/13/18 10:59 Dose: 50 mg Ondansetron HCl (Zofran Injection) 4 mg IVPUSH Q4H PRN PRN Reason: NAUSEA AND/OR VOMITING Pantoprazole Sodium (Protonix Iv) 40 mg IVPUSH DAILY [facility] Last Admin: 02/13/18 10:59 Dose: 40 mg Rosuvastatin Calcium (Crestor -) 20 mg PO HS [facility] Last Admin: 02/12/18 21:40 Dose: 20 mg Sevelamer Carbonate (Renvela -) 800 mg PO TIDCM [facility] Last Admin: 02/13/18 10:59 Dose: 800 mg - Objective Vital Signs: Vital Signs Temperature 98.3 F 02/13/18 11:14 Pulse Rate 73 02/13/18 11:14 Respiratory Rate 20 02/13/18 11:14 Blood Pressure 148/67 02/13/18 11:14 O2 Sat by Pulse Oximetry (%) 97 02/12/18 21:00 Constitutional: Yes: No Distress, Calm Eyes: Yes: Conjunctiva Clear HENT: Yes: Atraumatic Neck: Yes: Supple Cardiovascular: Yes: S1, S2 Respiratory: Yes: CTA Bilaterally, On Nasal O2 Gastrointestinal: Yes: Soft Genitourinary: Yes: WNL Musculoskeletal: Yes: WNL Edema: No Neurological: Yes: Confusion Labs: CBC, BMP 02/13/18 05:40 02/13/18 05:40 Problem List - Problems (1) Esophagitis Code(s): K20.9 - ESOPHAGITIS, UNSPECIFIED (2) Chronic kidney disease Code(s): N18.9 - CHRONIC KIDNEY DISEASE, UNSPECIFIED (3) Diabetes Code(s): E11.9 - TYPE 2 DIABETES MELLITUS WITHOUT COMPLICATIONS Assessment/Plan Current Medications Generic Name Dose Route Start Last Admin Trade Name Freq PRN Reason Stop Dose Admin Albuterol Sulfate 1 amp 02/11/18 08:13 Ventolin 0.083% Nebulizer Soln - NEB Q4H PRN SHORT OF BREATH/WHEEZING Amlodipine Besylate 10 mg 02/11/18 10:00 02/13/18 10:59 Norvasc - PO 10 mg DAILY [facility] Administration Azithromycin 250 mg 02/12/18 11:10 02/13/18 10:59 Zithromax - PO 250 mg DAILY [facility] Administration Cefpodoxime Proxetil 200 mg 02/12/18 11:21 02/13/18 10:59 Vantin - PO 200 mg DAILY [facility] Administration Heparin Sodium (Porcine) 5,000 unit 02/11/18 14:00 02/13/18 06:11 Heparin - SQ 5,000 unit TID [facility] Administration Metoprolol Succinate 50 mg 02/11/18 10:00 02/13/18 10:59 Toprol Xl - PO 50 mg DAILY [facility] Administration Ondansetron HCl 4 mg 02/11/18 08:13 Zofran Injection IVPUSH Q4H PRN NAUSEA AND/OR VOMITING Pantoprazole Sodium 40 mg 02/11/18 10:00 02/13/18 10:59 Protonix Iv IVPUSH 40 mg DAILY [facility] Administration Rosuvastatin Calcium 20 mg 02/11/18 22:00 02/12/18 21:40 Crestor - PO 20 mg HS [facility] Administration Sevelamer Carbonate 800 mg 02/11/18 12:00 02/13/18 10:59 Renvela - PO 800 mg TIDCM [facility] Administration Impression 1. CKD 2. HTN 3. HLD 4. COPD 5. DM 6. pos heb b core 7. abd pain 8. vomiting 9. anemia Plan - cont to monitor renal function - encourage PO intake - cont abx - discussed with family and pmd Dr sanders [phone], [phone] - hold diuretics - will hold of fluids for today - follow cultures - will follow Dr Reis
--- NOTE | 2018-02-13 13:41 | PN ---
Progress Note, Physician History of Present Illness: Ms. Crouch is an 87 yo female w/ pmh of asthma, COPD (on home O2), HTN, nephrolithiasis, frequent UTIs, prior gastrointestinal bleed, CKD stage IV (L A/ V fistula currently maturing but not in use at this time) who presents for evaluation of 1 week of weakness complicated by 1 day history of nausea/ vomiting with abdominal pain. Patient is creole speaking and daughters who are with her translate. Patient also endorses 2 day history of diarrhea as well. The patient denies chest pain, shortness of breath, headache and dizziness. Denies fever, chills, and constipation. Denies dysuria, frequency, urgency and hematuria. - Current Medication List Current Medications: Active Medications Albuterol Sulfate (Ventolin 0.083% Nebulizer Soln -) 1 amp NEB Q4H PRN PRN Reason: SHORT OF BREATH/WHEEZING Amlodipine Besylate (Norvasc -) 10 mg PO DAILY [facility] Last Admin: 02/13/18 10:59 Dose: 10 mg Azithromycin (Zithromax -) 250 mg PO DAILY [facility] Last Admin: 02/13/18 10:59 Dose: 250 mg Cefpodoxime Proxetil (Vantin -) 200 mg PO DAILY [facility] Last Admin: 02/13/18 10:59 Dose: 200 mg Heparin Sodium (Porcine) (Heparin -) 5,000 unit SQ TID [facility] Last Admin: 02/13/18 06:11 Dose: 5,000 unit Metoprolol Succinate (Toprol Xl -) 50 mg PO DAILY [facility] Last Admin: 02/13/18 10:59 Dose: 50 mg Ondansetron HCl (Zofran Injection) 4 mg IVPUSH Q4H PRN PRN Reason: NAUSEA AND/OR VOMITING Pantoprazole Sodium (Protonix Iv) 40 mg IVPUSH DAILY [facility] Last Admin: 02/13/18 10:59 Dose: 40 mg Rosuvastatin Calcium (Crestor -) 20 mg PO HS [facility] Last Admin: 02/12/18 21:40 Dose: 20 mg Sevelamer Carbonate (Renvela -) 800 mg PO TIDCM [facility] Last Admin: 02/13/18 10:59 Dose: 800 mg - Objective Vital Signs: Vital Signs Temperature 98.3 F 02/13/18 11:14 Pulse Rate 73 12/14/18 11:14 Respiratory Rate 20 02/13/18 11:14 Blood Pressure 148/67 02/13/18 11:14 O2 Sat by Pulse Oximetry (%) 97 02/13/18 09:00 Eyes: Yes: WNL, Conjunctiva Clear, EOM Intact HENT: Yes: WNL, Atraumatic, Normocephalic Neck: Yes: WNL, Supple, Trachea Midline Cardiovascular: Yes: WNL, Regular Rate and Rhythm Respiratory: Yes: WNL, Regular, CTA Bilaterally Gastrointestinal: Yes: WNL, Normal Bowel Sounds Genitourinary: Yes: WNL Musculoskeletal: Yes: WNL Extremities: Yes: WNL Edema: No Integumentary: Yes: WNL Neurological: Yes: WNL, Alert, Oriented ...Motor Strength: WNL Psychiatric: Yes: WNL Labs: CBC, BMP 02/13/18 05:40 02/13/18 05:40 Problem List - Problems (1) Abnormal CT of the abdomen Code(s): R93.5 - ABN FINDINGS ON DX IMAGING OF ABD REGIONS, INC RETROPERITON (2) Dyspnea Code(s): R06.00 - DYSPNEA, UNSPECIFIED (3) Epigastric abdominal pain Code(s): R10.13 - EPIGASTRIC PAIN (4) Esophagitis Code(s): K20.9 - ESOPHAGITIS, UNSPECIFIED (5) GIB (gastrointestinal bleeding) Code(s): K92.2 - GASTROINTESTINAL HEMORRHAGE, UNSPECIFIED (6) Gastritis Code(s): K29.70 - GASTRITIS, UNSPECIFIED, WITHOUT BLEEDING (7) COPD exacerbation Code(s): J44.1 - CHRONIC OBSTRUCTIVE PULMONARY DISEASE W (ACUTE) EXACERBATION (8) Chronic kidney disease Code(s): N18.9 - CHRONIC KIDNEY DISEASE, UNSPECIFIED (9) Diabetes Code(s): E11.9 - TYPE 2 DIABETES MELLITUS WITHOUT COMPLICATIONS (10) Hypercholesterolemia Code(s): E78.00 - PURE HYPERCHOLESTEROLEMIA, UNSPECIFIED (11) Hypertension Code(s): I10 - ESSENTIAL (PRIMARY) HYPERTENSION (12) Pneumonia Code(s): J18.9 - PNEUMONIA, UNSPECIFIED ORGANISM Assessment/Plan - Problems (1) Pericardial effusion Assessment/Plan: moderate amount of pericardial effusion ( increase from previous study); no evidence of cardiac tamponade. Normal WBCs; afebrile; BP WNL-->elevated. F/u clinically. f/u ECHO 1-2 weeks Code(s): I31.3 - PERICARDIAL EFFUSION (NONINFLAMMATORY) (2) Diastolic CHF Code(s): I50.30 - UNSPECIFIED DIASTOLIC (CONGESTIVE) HEART FAILURE (3) Moderate to severe pulmonary hypertension Code(s): I27.20 - PULMONARY HYPERTENSION, UNSPECIFIED (4) COPD exacerbation Code(s): J44.1 - CHRONIC OBSTRUCTIVE PULMONARY DISEASE W (ACUTE) EXACERBATION (5) Chronic kidney disease Assessment/Plan: deteriorating since at least 05/2017; f/u with cooker cleaner. Code(s): N18.9 - CHRONIC KIDNEY DISEASE, UNSPECIFIED (6) Diabetes Code(s): E11.9 - TYPE 2 DIABETES MELLITUS WITHOUT COMPLICATIONS (7) Hypercholesterolemia Assessment/Plan: on rosuvastatin. Code(s): E78.00 - PURE HYPERCHOLESTEROLEMIA, UNSPECIFIED (8) Hypertension Assessment/Plan: on amlodipine; f/u BP serially. Code(s): I10 - ESSENTIAL (PRIMARY) HYPERTENSION
--- NOTE | 2018-02-13 16:54 | PN ---
Teaching Attending Note Name of Resident: Lloyd Akins ATTENDING PHYSICIAN STATEMENT I saw and evaluated the patient. I reviewed the resident's note and discussed the case with the resident. I agree with the resident's findings and plan as documented. SUBJECTIVE: No fever or chills . No abd pain . no SOB. OBJECTIVE: NAD , calm and cooperative CV: RRR lungs: bibasilar crackles , now half way down on L side Ext: no edema A/P : 87 y/o lady with h/o CKD V, COPD on home O2, GERD, HTN, HLP, DM, and other medical problems who presented with N/V and was found to have RLL PNA 1- RLL CAP: - cont vantin and azithro. day 3/5 legionella Ag. neg. blood cx nGTD 2- N/V : likely due to PNA. resolved . tolerated diet PPI f/u with GI fro endoscopy due to gastric wall thickening noted on CT scan 3- Pericardial effusion: No tamponade. f/u echo in 1-2 weeks 4- Dehydration : volume status improved . hold off IVF but contot hold lasix. crackle sin lungs worse after IVF. beny monitor closely . 5- Acute delirium: much improved . avoid sedatives 6- COPD 7- DM : SSI dipo : pending decision on HD
--- NOTE | 2018-02-13 16:56 | PN ---
Physical Exam: SUBJECTIVE: Patient seen and examined. Pt. placed on [place] because she was agitated and confused overnight. Pt. uses home O2 when ambulating. Pt. wakes up confused and starts walking, desaturates and then becomes more confused. Pt. given Melatonin to help sleep. OBJECTIVE: Vital Signs Period Temp Pulse Resp BP Sys/Betancourt Pulse Ox Last 24 Hr 70 F-98.3 F 70-75 20-20 120-150/63-80 97-97 GENERAL: The patient is awake and alert to name only, in no acute distress HEAD: Normal with no signs of trauma. EYES: PERRL, sclera anicteric, conjunctiva clear. No ptosis. ENT: Ears normal, nares patent, dry mucous membranes. LUNGS: Breath sounds equal, clear to auscultation bilaterally, no wheezes, no crackles, no accessory muscle use. HEART: Regular rate and rhythm, S1, S2 without murmur ABDOMEN: Soft, nontender, nondistended, normoactive bowel sounds, no guarding, no rebound, no CVA tenderness EXTREMITIES: 2+ dorsal pedal pulses, warm, no calf tenderness, well-perfused, no edema. NEUROLOGICAL: Confused vs. delirious PSYCH: Pt. was noncooperative with physical exam. SKIN: Warm, dry, normal turgor Laboratory Results - last 24 hr 02/13/18 02/13/18 02/13/18 03:21 05:40 05:40 WBC 4.7 RBC 3.17 L Hgb 8.1 L Hct 26.0 L MCV 81.8 MCH 25.6 L MCHC 31.3 L RDW 16.6 H Plt Count 197 MPV 9.0 Absolute Neuts (auto) 3.4 Neutrophils % 71.6 Lymphocytes % 18.2 D Monocytes % 8.3 Eosinophils % 1.4 Basophils % 0.5 Nucleated RBC % 0 Sodium 141 Potassium 3.7 Chloride 102 Carbon Dioxide 32 Anion Gap 7 L BUN 50 H Creatinine 5.2 H Creat Clearance w eGFR 7.82 POC Glucometer 167 Random Glucose 124 H Calcium 8.4 L Phosphorus 5.0 H Magnesium 2.3 Total Bilirubin 0.8 AST 25 ALT 27 Alkaline Phosphatase 68 Total Protein 6.3 L Albumin 3.5 Active Medications Home Medications Medication Instructions Recorded Albuterol Sulfate Inhaler - 1 - 2 inh PO Q6H 05/03/17 [Ventolin HFA Inhaler -] Amlodipine Besylate [Norvasc -] 10 mg PO DAILY 05/03/17 Pregabalin [Lyrica] 75 mg PO HS 05/03/17 Sevelamer Carbonate [Renvela -] 800 mg PO TIDCM #90 tab 05/08/17 Calcitriol [Rocaltrol] 0.25 mcg PO ASDIR 10/09/17 Cyclosporine [Restasis] 1 each OP BID 10/09/17 Fluticasone/Umeclidin/Vilanter 1 each IH DAILY 10/09/17 [Trelegy Ellipta 100-62.5-25] Furosemide [Lasix] 80 mg PO DAILY 10/09/17 Insulin Lispro [Humalog] 5 unit SQ TID 10/09/17 Levalbuterol HCl 1.25 mg IH Q8H 10/09/17 Metoprolol Succinate [Toprol Xl] 50 mg PO DAILY 10/09/17 Rosuvastatin Calcium [Crestor] 20 mg PO DAILY 10/09/17 Pantoprazole Sodium [Protonix -] 40 mg PO DAILY tablet.ec 10/13/17 Polyethylene Glycol 3350 [Miralax 17 gm PO TID #1 bottle 10/13/17 119 gm Btl -] Acetaminophen W/ Codeine #3 1 tab PO Q6H PRN #10 tablet MDD 4 11/12/17 [Tylenol # 3 -] Docusate Sodium [Colace] 100 mg PO BID #30 capsule 11/12/17 Esomeprazole Magnesium [Nexium 20 mg PO QID 02/11/18 24Hr] Isosorbibe Dinit/Hydralazine 1 each PO TID 02/11/18 [Bidil Tablet] Current Medications Albuterol Sulfate (Ventolin 0.083% Nebulizer Soln -) 1 amp NEB Q4H PRN PRN Reason: SHORT OF BREATH/WHEEZING Amlodipine Besylate (Norvasc -) 10 mg PO DAILY [facility] Last Admin: 02/13/18 10:59 Dose: 10 mg Azithromycin (Zithromax -) 250 mg PO DAILY [facility] Last Admin: 02/13/18 10:59 Dose: 250 mg Cefpodoxime Proxetil (Vantin -) 200 mg PO DAILY [facility] Last Admin: 02/13/18 10:59 Dose: 200 mg Heparin Sodium (Porcine) (Heparin -) 5,000 unit SQ TID [facility] Last Admin: 02/13/18 14:22 Dose: 5,000 unit Metoprolol Succinate (Toprol Xl -) 50 mg PO DAILY [facility] Last Admin: 02/13/18 10:59 Dose: 50 mg Ondansetron HCl (Zofran Injection) 4 mg IVPUSH Q4H PRN PRN Reason: NAUSEA AND/OR VOMITING Pantoprazole Sodium (Protonix Iv) 40 mg IVPUSH DAILY [facility] Last Admin: 02/13/18 10:59 Dose: 40 mg Rosuvastatin Calcium (Crestor -) 20 mg PO HS [facility] Last Admin: 02/12/18 21:40 Dose: 20 mg Sevelamer Carbonate (Renvela -) 800 mg PO TIDCM [facility] Last Admin: 02/13/18 12:22 Dose: 800 mg ASSESSMENT/PLAN: An 87 y.o. F w/ PMHx. COPD (on 2L O2), HTN, nephrolithiasis, GERD, DM, HLD, frequent UTIs, GI bleed, stage IV CKD w/ A/V fistula (placed but not on HD.) presents with nausea and NB/NB vomiting for 2 days, cough and generalized weakness for 1 week. #R/O CAP -CT a/p and CXR demonstrate RLL consolidation -c/w empirical treatment for PNA as CXR may be delayed in showing infiltrates -switched ceftriaxone and azithromycin to PO cefpodoxime and azithromycin -F/u blood Cx, sputum Cx.- NTD -ESR: 20 (wnl) -Legionella Ag - -Strep Pneumo Ag - #Nausea/ Vomiting-resolved -Questionable presence of abdominal pain, none on exam -c/w Ondansetron 4mg q4h PRN -nephrology (Dr. Reis) consult: hold Lasix for today, f/u Cx., no HD today but will talk to family about Dialysis tomorrow #Dementia vs. Uremic Encephalopathy -Pt. likely has a combination of both pathologies. As noted from conversation from daughter, Pt. has been in progressive neurocognitive decline for years but has had a rapid decrease in function and mental status over the last week. -Pt. not currently receiving treatment for dementia -Monitor Pt. for signs of improvement #CKD -Nephrology (Dr. Reis) consulted -no HD as of yet -electrolytes currently wnl, f/u urine electrolytes, urea and creatinine -IVF -hold Lasix given likely dehydration in setting of vomiting -c/w sevelamer #Pericardial effusion-stable -Enlarged since last Echo -Moderate pericardial effusion seen on CT, also seen on echo: normal LV size, thickness and function, mild to moderate MR, severe TR, RV systolic pressure above 60mmHg, no signs of tamponade -cardiology (Dr. León) consulted: no clinical signs of tamponade -consider cardiac monitoring #GERD -c/w IV Protonix 40mg -Pt. denies any signs or symptoms at this time #DM -Pt. not currently on treatment at home -A1c: 5.7% -D/C-ed ISS and BGMs at this time #HTN -c/w Norvasc 10mg -c/w Metoprolol Succinate 50mg Daily -Of note Pt. has not picked up medications since January because medications were on hold? by Dr. Reid Marrufo #HLD -c/w Rosuvastatin #F/E/N -Hold IVF for today -monitor and correct electrolytes -renal/diabetic diet #PPx -DVT: Hep SQ -GI: IV protonix #Code -full #Dispo -DC Planning Pt.s daughter Heather Francis ([phone])- Health care proxy. Visit type - Emergency Visit Emergency Visit: Yes ED Registration Date: 02/11/18 Care time: The patient presented to the Emergency Department on the above date and was hospitalized for further evaluation of their emergent condition. - New Patient This patient is new to me today: No - Critical Care Critical Care patient: No - Discharge Referral Referred to [facility] Med P.C.: No
[2018-02-13] MEDS ORDERED: ROSUVASTATIN CA 10 MG TABLET (FP) ONE (21:29)
[2018-02-13] MEDS: ROSUVASTATIN CA 20 MG TABLET (FP) PO SCH (22:03)
[2018-02-13 23:38] VITALS: BMI 24.6
[2018-02-14] MEDS: HEPARIN NA (PORCINE) 5,000 UNITS/ML 1ML VIAL SQ SCH ×3 (06:43→21:50)
[2018-02-14 08:02] LABS: HEMATOCRIT 25.1 % (32.4-45.2); MCH 25.7 pg (25.7-33.7); MCHC 31.8 g/dl (32.0-36.0); MEAN PLT VOLUME 8.6 fl (7.5-11.1); PLATELET COUNT 195 K/MM3 (134-434); RDW 16.6 % (11.6-15.6); WHITE BLOOD COUNT 3.6 K/mm3 (4.0-10.0)
[2018-02-14 08:41] LABS: ANION GAP 6 MMOL/L (8-16); BLOOD UREA NITROGEN 50 mg/dL (7-18); CALCIUM 8.4 mg/dL (8.5-10.1); CHLORIDE 103 mmol/L (98-107); CO2 33 mmol/L (21-32); CREATININE 5.1 mg/dL (0.55-1.3); GLUCOSE,RANDOM 82 mg/dL (74-106); MAGNESIUM 2.4 mg/dL (1.8-2.4); PHOSPHOROUS 5.5 mg/dL (2.5-4.9); POTASSIUM 3.7 mmol/L (3.5-5.1); SODIUM 142 mmol/L (136-145)
[2018-02-14] MEDS: amLODIPine BESYLATE 10 MG TABLET (FP) PO SCH ×2 (08:42→10:22)
[2018-02-14] MEDS: SEVELAMER CARBONATE 800 MG TAB (FP) PO SCH ×3 (08:43→17:45)
--- NOTE | 2018-02-14 09:20 | PN ---
Physical Exam: SUBJECTIVE: Patient seen and examined; first encounter with patient; confused; not at baseline as per daughter; did not understand language when translated by phone. She ate a pancake for breakfast. Denies any pain or OBJECTIVE: Vital Signs Period Temp Pulse Resp BP Sys/Betancourt Pulse Ox Last 24 Hr 97.4 F-98.5 F 70-83 20-20 120-171/63-80 97 GENERAL: The patient is awake, alert, and fully oriented, in no acute distress. HEAD: Normal with no signs of trauma. EYES: PERRL, extraocular movements intact, sclera anicteric, conjunctiva clear. No ptosis. ENT: Ears normal, nares patent, oropharynx clear without exudates, moist mucous membranes. NECK: Trachea midline, full range of motion, supple. LUNGS: Breath sounds equal, clear to auscultation bilaterally, no wheezes, no crackles, no accessory muscle use. HEART: Regular rate and rhythm, S1, S2 without murmur, rub or gallop. ABDOMEN: Soft, nontender, nondistended, normoactive bowel sounds, no guarding, no rebound, no hepatosplenomegaly, no masses. EXTREMITIES: 2+ pulses, warm, well-perfused, no edema. NEUROLOGICAL: Cranial nerves II through XII grossly intact. Normal speech, gait not observed. PSYCH: Normal mood, normal affect. SKIN: Warm, dry, normal turgor, no rashes or lesions noted Laboratory Results - last 24 hr 02/14/18 02/14/18 06:00 06:00 WBC 3.6 L RBC 3.10 L Hgb 8.0 L Hct 25.1 L MCV 81.0 MCH 25.7 MCHC 31.8 L RDW 16.6 H Plt Count 195 MPV 8.6 Sodium 142 Potassium 3.7 Chloride 103 Carbon Dioxide 33 H Anion Gap 6 L BUN 50 H Creatinine 5.1 H Creat Clearance w eGFR 8.00 Random Glucose 82 Calcium 8.4 L Phosphorus 5.5 H Magnesium 2.4 Active Medications Generic Name Dose Route Start Last Admin Trade Name Freq PRN Reason Stop Dose Admin Albuterol Sulfate 1 amp 02/11/18 08:13 Ventolin 0.083% Nebulizer Soln - NEB Q4H PRN SHORT OF BREATH/WHEEZING Amlodipine Besylate 10 mg 02/11/18 10:00 02/14/18 08:42 Norvasc - PO 10 mg DAILY [facility] Administration Azithromycin 250 mg 02/12/18 11:10 02/13/18 10:59 Zithromax - PO 250 mg DAILY [facility] Administration Cefpodoxime Proxetil 200 mg 02/12/18 11:21 02/13/18 10:59 Vantin - PO 200 mg DAILY [facility] Administration Heparin Sodium (Porcine) 5,000 unit 02/11/18 14:00 02/14/18 06:43 Heparin - SQ 5,000 unit TID [facility] Administration Metoprolol Succinate 50 mg 02/11/18 10:00 02/13/18 10:59 Toprol Xl - PO 50 mg DAILY [facility] Administration Ondansetron HCl 4 mg 02/11/18 08:13 Zofran Injection IVPUSH Q4H PRN NAUSEA AND/OR VOMITING Pantoprazole Sodium 40 mg 02/11/18 10:00 02/13/18 10:59 Protonix Iv IVPUSH 40 mg DAILY [facility] Administration Rosuvastatin Calcium 20 mg 02/11/18 22:00 02/13/18 22:03 Crestor - PO 20 mg HS [facility] Administration Sevelamer Carbonate 800 mg 02/11/18 12:00 02/14/18 08:43 Renvela - PO 800 mg TIDCM [facility] Administration ASSESSMENT/PLAN: This is a 87 year old female with a medical history of asthma, COPD (on home O2) , HTN, nephrolithiasis, frequent UTIs, prior gastrointestinal bleed, CKD stage IV (L A/V fistula never used), who presented with nausea, vomiting and generalized weakness, found to have a LLL PNA. Still with altered mental status after receiving antibiotics and afebrile. Multiple etiology, possible UTI, uremic encephalopathy, delerium from hospitalization, CVA?, get UA to rule out other infectious process, if negative proceed with head CT. Plan for possible HD on Friday. #PNA -day 4 out of 5 for azithromycin -cont cefpodoxime #AMS -infection with pna; -r/o UTI --possible delirium -head ct if ua negative -possible uremic encephalopathy; possible HD on Friday as per nephro -appears slightly dry; beny give 1/2 ns 5occ per hour for 4 hrs; encourage po intake #N/V/D: resolved -abdominal CT showing gastric thickening; nee outpatient GI f/u #Pericardial effusion: moderate effusionl will have repeat echo in two weeks as outpatient #CKD -potential plan for HD on Friday as per nephrology -cont monitor renal function -cont renvela to bind phosphate -iron supp -procrit once mental status improves -av fistula never used ; as per nephro HD #anemia -iron supp sec to CKD #HTN; -cont norvas and amlodipine #HLD: -statin #COPD: -supplemental o2 -cont bronchodilators #Walked 50 feet with physical therapy today; fatigued #medication reconciled with [facility] pharmacy VTE : ppl: heparin sq Disposition: medsurg ;cont management Visit type - Emergency Visit Emergency Visit: Yes ED Registration Date: 02/11/18 Care time: The patient presented to the Emergency Department on the above date and was hospitalized for further evaluation of their emergent condition. - New Patient This patient is new to me today: Yes Date on this admission: 02/14/18 - Critical Care Critical Care patient: No - Discharge Referral Referred to [facility] Med P.C.: No
[2018-02-14] MEDS: CEFPODOXIME PROXETIL 200 MG TABLET [NF] PO SCH (10:31)
[2018-02-14] MEDS: AZITHROMYCIN 250 MG TABLET PO SCH (10:31)
[2018-02-14] MEDS: PANTOPRAZOLE SODIUM 40 MG VIAL IVPUSH SCH (10:31)
--- NOTE | 2018-02-14 10:44 | PN ---
Teaching Attending Note Name of Resident: Peri Rene ATTENDING PHYSICIAN STATEMENT I saw and evaluated the patient. I reviewed the resident's note and discussed the case with the resident. I agree with the resident's findings and plan as documented. SUBJECTIVE: Textile Engineer phone was used, but no Creole interpreters were available. slightly confused over night per RN. no other events OBJECTIVE: NAD, calm and cooperative. slightly dry MM CV: RRR lungs: bibasilar crackles, much improved compared to yesterday Ext: no edema A/P : 87 y/o lady with h/o CKD V, COPD on home O2, GERD, HTN, HLP, DM, and other medical problems who presented with N/V and was found to have RLL PNA 1- RLL CAP: - cont vantin and azithro. day 4/5 blood cx neg 72 hours 2- N/V : likely due to PNA. resolved . tolerated diet PPI f/u with GI for endoscopy due to gastric wall thickening noted on CT scan 3- Pericardial effusion: No tamponade. f/u echo in 1-2 weeks 4- slight volume depletion: give 1/2 NS @50 CC hr x 4 hours only . then cont po hydration . hold lasix 5- Acute delirium: much improved . avoid sedatives 6- HTN: there is some confusion bout home meds. will confirm her meds with daughter and pharmacy 7- DM: SSI 8- CKD V: d/w dr. Reis last night. family declined HD at this point. there is no urgency to start HD at this point. will f/u with renal as out pt Dipo : will d/w renal if later today , more renal tests or intervention indicated. if not , can dc. repeat PT eval today
--- NOTE | 2018-02-14 11:36 | PN ---
Progress Note (short form) - Note Progress Note: RENAL Pt is awake, confused daughter by bedside Last Vital Signs Temp Pulse Resp BP Pulse Ox 98.5 F 83 20 171/78 H 97 02/14/18 06:00 02/14/18 06:00 02/14/18 06:00 02/14/18 06:00 02/13/18 21:00 lungs clear cvs s1s2 rr abd soft ext no edema, avf in left upper extremity good thrill neuro has some tremors, also asterixis CBC, BMP 02/14/18 06:00 02/14/18 06:00 Current Medications Generic Name Dose Route Start Last Admin Trade Name Freq PRN Reason Stop Dose Admin Albuterol Sulfate 1 amp 02/11/18 08:13 Ventolin 0.083% Nebulizer Soln - NEB Q4H PRN SHORT OF BREATH/WHEEZING Amlodipine Besylate 10 mg 02/11/18 10:00 02/14/18 10:22 Norvasc - PO Not Given DAILY [facility] Azithromycin 250 mg 02/12/18 11:10 02/14/18 10:31 Zithromax - PO 250 mg DAILY [facility] Administration Cefpodoxime Proxetil 200 mg 02/12/18 11:21 02/14/18 10:31 Vantin - PO 200 mg DAILY [facility] Administration Heparin Sodium (Porcine) 5,000 unit 02/11/18 14:00 02/14/18 06:43 Heparin - SQ 5,000 unit TID [facility] Administration Metoprolol Succinate 50 mg 02/11/18 10:00 02/14/18 10:31 Toprol Xl - PO 50 mg DAILY [facility] Administration Ondansetron HCl 4 mg 02/11/18 08:13 Zofran Injection IVPUSH Q4H PRN NAUSEA AND/OR VOMITING Pantoprazole Sodium 40 mg 02/11/18 10:00 02/14/18 10:31 Protonix Iv IVPUSH 40 mg DAILY [facility] Administration Rosuvastatin Calcium 20 mg 02/11/18 22:00 02/13/18 22:03 Crestor - PO 20 mg HS [facility] Administration Sevelamer Carbonate 800 mg 02/11/18 12:00 02/14/18 08:43 Renvela - PO 800 mg TIDCM [facility] Administration Impression 1. CKD 2. HTN 3. HLD 4. COPD 5. DM 6. pos heb b core 7. abd pain 8. vomiting 9. anemia 10 confusion can be from renal insuff but this is unlikely at this level of BUN Plan -would give trial of hd on friday or friday if MS not improving -repeat urinalysis - dc antibiotics and observe - would give procrit once MS improves MV
[2018-02-14] MEDS ORDERED: SODIUM CHLORIDE 0.45% 1,000 ML IV SCH (12:30)
[2018-02-14] MEDS ORDERED: BACITRACIN 15 GM TUBE TOPICAL OINTMENT TP SCH (13:15)
[2018-02-14] MEDS ORDERED: ZINC OXIDE 20% TOPICAL OINTMENT 30 GM TUBE TP SCH (13:15)
[2018-02-14 17:48] LABS: URINE APPEARANCE CLEAR; URINE BILIRUBIN NEGATIVE (<2.0 mg/dL); URINE COLOR STRAW; URINE GLUCOSE (UA) NEGATIVE (NEGATIVE); URINE KETONE NEGATIVE (NEGATIVE); URINE LEUK ESTERASE NEGATIVE (NEGATIVE); URINE NITRITE NEGATIVE (NEGATIVE); URINE PROTEIN 3+ (NEGATIVE); URINE UROBILINOGEN NEGATIVE mg/dL (0.2-1.0)
[2018-02-14 17:53] LABS: EPI CELLS RARE /HPF (FEW); URINE BACTERIA RARE /hpf (NONE SEEN); URINE MUCUS RARE
[2018-02-14] MEDS ORDERED: ROSUVASTATIN CA 10 MG TABLET (FP) ONE (20:51)
[2018-02-14] MEDS: ROSUVASTATIN CA 20 MG TABLET (FP) PO SCH (21:50)
[2018-02-15] MEDS: HEPARIN NA (PORCINE) 5,000 UNITS/ML 1ML VIAL SQ SCH ×3 (06:01→21:15)
[2018-02-15 07:39] LABS: BASO % 0.9 % (0-2.0); EOS % 2.6 % (0-4.5); HEMATOCRIT 24.4 % (32.4-45.2); HEMOGLOBIN 8.2 GM/dL (10.7-15.3); LYMPH % 22.1 % (8-40); MCH 26.8 pg (25.7-33.7); MCHC 33.4 g/dl (32.0-36.0); MEAN CELL VOLUME 80.2 fl (80-96); MEAN PLT VOLUME 8.8 fl (7.5-11.1); MONO % 9.4 % (3.8-10.2); PLATELET COUNT 221 K/MM3 (134-434); RBC 3.04 M/mm3 (3.60-5.2); RDW 16.7 % (11.6-15.6); WHITE BLOOD COUNT 4.4 K/mm3 (4.0-10.0)
[2018-02-15] MEDS: SEVELAMER CARBONATE 800 MG TAB (FP) PO SCH ×3 (07:59→17:14)
[2018-02-15 08:17] LABS: ALBUMIN 3.5 g/dl (3.4-5.0); ALK PHOS 66 U/L (45-117); ANION GAP 5 MMOL/L (8-16); BLOOD UREA NITROGEN 51 mg/dL (7-18); CALCIUM 8.5 mg/dL (8.5-10.1); CHLORIDE 104 mmol/L (98-107); CO2 33 mmol/L (21-32); GLUCOSE,RANDOM 97 mg/dL (74-106); MAGNESIUM 2.2 mg/dL (1.8-2.4); PHOSPHOROUS 5.1 mg/dL (2.5-4.9); POTASSIUM 3.6 mmol/L (3.5-5.1); SGOT/AST 26 U/L (15-37); SGPT/ALT 29 U/L (13-61); SODIUM 142 mmol/L (136-145); TOT PROT 6.2 g/dl (6.4-8.2)
[2018-02-15] MEDS ORDERED: FERROUS SO4 325 MG TABLET (FP) PO SCH (10:00)
--- NOTE | 2018-02-15 10:15 | PN ---
Progress Note (short form) - Note Progress Note: RENAL Awake appears comfortable langauge barrier Last Vital Signs Temp Pulse Resp BP Pulse Ox 98.4 F 88 20 169/79 99 02/15/18 06:00 02/15/18 06:00 02/15/18 06:00 02/15/18 06:00 02/14/18 21:00 lungs clear cvs s1s2 rr abd soft ext no edema, avf in left upper extremity good thrill neuro has some tremors, also asterixis CBC, BMP 02/15/18 07:15 02/15/18 07:15 Current Medications Generic Name Dose Route Start Last Admin Trade Name Freq PRN Reason Stop Dose Admin Albuterol Sulfate 1 amp 02/11/18 08:13 Ventolin 0.083% Nebulizer Soln - NEB Q4H PRN SHORT OF BREATH/WHEEZING Amlodipine Besylate 10 mg 02/11/18 10:00 02/14/18 10:22 Norvasc - PO Not Given DAILY [facility] Azithromycin 250 mg 02/12/18 11:10 02/14/18 10:31 Zithromax - PO 250 mg DAILY [facility] Administration Cefpodoxime Proxetil 200 mg 02/12/18 11:21 02/14/18 10:31 Vantin - PO 200 mg DAILY [facility] Administration Heparin Sodium (Porcine) 5,000 unit 02/11/18 14:00 02/15/18 06:01 Heparin - SQ 5,000 unit TID [facility] Administration Metoprolol Succinate 50 mg 02/11/18 10:00 02/14/18 10:31 Toprol Xl - PO 50 mg DAILY [facility] Administration Ondansetron HCl 4 mg 02/11/18 08:13 Zofran Injection IVPUSH Q4H PRN NAUSEA AND/OR VOMITING Pantoprazole Sodium 40 mg 02/11/18 10:00 02/14/18 10:31 Protonix Iv IVPUSH 40 mg DAILY [facility] Administration Rosuvastatin Calcium 20 mg 02/11/18 22:00 02/14/18 21:50 Crestor - PO 20 mg HS [facility] Administration Sevelamer Carbonate 800 mg 02/11/18 12:00 02/15/18 07:59 Renvela - PO 800 mg TIDCM [facility] Administration Impression 1. CKD 2. HTN 3. HLD 4. COPD 5. DM 6. pos heb b core 7. abd pain 8. vomiting 9. anemia 10 confusion can be from renal insuff but this is unlikely at this level of BUN Plan - would give trial of hd on friday or friday if MS not improving- to exclude uremia as cause of ams though I doubt - dc antibiotics and observe- ?cause of change in MS - would give procrit once MS improves- this is not urgent MV
[2018-02-15] MEDS: AZITHROMYCIN 250 MG TABLET PO SCH (10:45)
[2018-02-15] MEDS: amLODIPine BESYLATE 10 MG TABLET (FP) PO SCH (10:45)
[2018-02-15] MEDS: PANTOPRAZOLE SODIUM 40 MG VIAL IVPUSH SCH (10:45)
[2018-02-15] MEDS: CEFPODOXIME PROXETIL 200 MG TABLET [NF] PO SCH (10:46)
--- NOTE | 2018-02-15 12:31 | PN ---
Progress Note (short form) - Note Progress Note: Subjective: No events over night , daughter stayed with her Objective: Vital Signs: Last Vital Signs Temp Pulse Resp BP Pulse Ox 98.4 F 82 20 161/68 99 02/15/18 06:00 02/15/18 10:00 02/15/18 10:00 02/15/18 10:00 02/15/18 09:00 Laboratory Results - last 24 hr 02/14/18 02/15/18 02/15/18 15:20 07:15 07:15 WBC 4.4 RBC 3.04 L Hgb 8.2 L Hct 24.4 L MCV 80.2 MCH 26.8 MCHC 33.4 RDW 16.7 H Plt Count 221 MPV 8.8 Absolute Neuts (auto) 2.9 Neutrophils % 65.0 Lymphocytes % 22.1 D Monocytes % 9.4 Eosinophils % 2.6 D Basophils % 0.9 Nucleated RBC % 0 Sodium 142 Potassium 3.6 Chloride 104 Carbon Dioxide 33 H Anion Gap 5 L BUN 51 H Creatinine 5.0 H Creat Clearance w eGFR 8.19 Random Glucose 97 Calcium 8.5 Phosphorus 5.1 H Magnesium 2.2 Total Bilirubin 1.0 AST 26 ALT 29 Alkaline Phosphatase 66 Total Protein 6.2 L Albumin 3.5 Urine Color Straw Urine Appearance Clear Urine pH 6.0 D Ur Specific [place] 1.009 L Urine Protein 3+ H Urine Glucose (UA) Negative Urine Ketones Negative Urine Blood Negative Urine Nitrite Negative Urine Bilirubin Negative Urine Urobilinogen Negative Ur Leukocyte Esterase Negative Urine WBC (Auto) 1 Urine RBC (Auto) <1 Ur Epithelial Cells Rare Urine Bacteria Rare Urine Mucus Rare PE: NAD, calm and cooperative. MMM CV: RRR lungs: bibasilar crackles,. Ext: no edema A/P : 87 y/o lady with h/o CKD V, COPD on home O2, GERD, HTN, HLP, DM, and other medical problems who presented with N/V and was found to have RLL PNA 1- RLL CAP: - day 5 of Abx . will stop blood cx neg 96 hours 2- N/V : likely due to PNA. resolved . tolerated diet PPI f/u with GI for endoscopy due to gastric wall thickening noted on CT scan 3- Pericardial effusion: No tamponade. f/u echo in 1-2 weeks 4- CKD : family to decide on HD. confusion is likely due to delirium rather than renal failure d/w Dr. Patterson 5- Acute delirium: much improved . avoid sedatives 6- HTN: cont norvasc . hold lasix 7- h/o DM: A1c 5.7. not on any treatment at home. will dc SSI family meeting with 3 daughters yesterday. awaiting their decision on HD. at dc will arrange for rehab . if no HD , then can dc tomorrow Visit type - Emergency Visit Emergency Visit: Yes ED Registration Date: 02/14/18 Care time: The patient presented to the Emergency Department on the above date and was hospitalized for further evaluation of their emergent condition. - New Patient This patient is new to me today: No - Critical Care Critical Care patient: No
[2018-02-15] MEDS ORDERED: ROSUVASTATIN CA 10 MG TABLET (FP) ONE (21:02)
[2018-02-15] MEDS: ROSUVASTATIN CA 20 MG TABLET (FP) PO SCH (21:15)
[2018-02-16] MEDS: HEPARIN NA (PORCINE) 5,000 UNITS/ML 1ML VIAL SQ SCH ×2 (06:01→13:54)
--- NOTE | 2018-02-16 06:58 | PN ---
Physical Exam: SUBJECTIVE: Patient seen and examined OBJECTIVE: Vital Signs Temperature 98.1 F 02/16/18 05:30 Pulse Rate 80 02/16/18 05:30 Respiratory Rate 16 02/16/18 05:30 Blood Pressure 159/68 02/16/18 05:30 O2 Sat by Pulse Oximetry (%) 99 02/15/18 21:00 GENERAL: The patient is awake, alert, and fully oriented, in no acute distress. HEAD: Normal with no signs of trauma. EYES: PERRL, extraocular movements intact, sclera anicteric, conjunctiva clear. No ptosis. ENT: Ears normal, nares patent, oropharynx clear without exudates, moist mucous membranes. NECK: Trachea midline, full range of motion, supple. LUNGS: Breath sounds equal, clear to auscultation bilaterally, no wheezes, no crackles, no accessory muscle use. HEART: Regular rate and rhythm, S1, S2 without murmur, rub or gallop. ABDOMEN: Soft, nontender, nondistended, normoactive bowel sounds, no guarding, no rebound, no hepatosplenomegaly, no masses. EXTREMITIES: 2+ pulses, warm, well-perfused, no edema. NEUROLOGICAL: Cranial nerves II through XII grossly intact. Normal speech, gait not observed. PSYCH: Normal mood, normal affect. SKIN: Warm, dry, normal turgor, no rashes or lesions noted CBCD WBC 4.4 K/mm3 (4.0-10.0) 02/15/18 07:15 RBC 3.04 M/mm3 (3.60-5.2) L 02/15/18 07:15 Hgb 8.2 GM/dL (10.7-15.3) L 02/15/18 07:15 Hct 24.4 % (32.4-45.2) L 02/15/18 07:15 MCV 80.2 fl (80-96) 02/15/18 07:15 MCHC 33.4 g/dl (32.0-36.0) 02/15/18 07:15 RDW 16.7 % (11.6-15.6) H 02/15/18 07:15 Plt Count 221 K/MM3 (134-434) 02/15/18 07:15 MPV 8.8 fl (7.5-11.1) 02/15/18 07:15 CMP Sodium 142 mmol/L (136-145) 02/15/18 07:15 Potassium 3.6 mmol/L (3.5-5.1) 02/15/18 07:15 Chloride 104 mmol/L (98-107) 02/15/18 07:15 Carbon Dioxide 33 mmol/L (21-32) H 02/15/18 07:15 Anion Gap 5 MMOL/L (8-16) L 02/15/18 07:15 BUN 51 mg/dL (7-18) H 02/15/18 07:15 Creatinine 5.0 mg/dL (0.55-1.3) H 02/15/18 07:15 Creat Clearance w eGFR 8.19 (>60) 02/15/18 07:15 Calcium 8.5 mg/dL (8.5-10.1) 02/15/18 07:15 Total Bilirubin 1.0 mg/dL (0.2-1) 02/15/18 07:15 AST 26 U/L (15-37) 02/15/18 07:15 ALT 29 U/L (13-61) 02/15/18 07:15 Alkaline Phosphatase 66 U/L (45-117) 02/15/18 07:15 Total Protein 6.2 g/dl (6.4-8.2) L 02/15/18 07:15 Albumin 3.5 g/dl (3.4-5.0) 02/15/18 07:15 Active Medications Albuterol Sulfate (Ventolin 0.083% Nebulizer Soln -) 1 amp NEB Q4H PRN PRN Reason: SHORT OF BREATH/WHEEZING Amlodipine Besylate (Norvasc -) 10 mg PO DAILY [facility] Last Admin: 02/15/18 10:45 Dose: 10 mg Heparin Sodium (Porcine) (Heparin -) 5,000 unit SQ TID [facility] Last Admin: 02/16/18 06:01 Dose: 5,000 unit Metoprolol Succinate (Toprol Xl -) 50 mg PO DAILY [facility] Last Admin: 02/15/18 10:45 Dose: 50 mg Pantoprazole Sodium (Protonix -) 40 mg PO DAILY [facility] Rosuvastatin Calcium (Crestor -) 20 mg PO HS [facility] Last Admin: 02/15/18 21:15 Dose: 20 mg Sevelamer Carbonate (Renvela -) 800 mg PO TIDCM [facility] Last Admin: 02/15/18 17:14 Dose: 800 mg ASSESSMENT/PLAN:
[2018-02-16] MEDS: SEVELAMER CARBONATE 800 MG TAB (FP) PO SCH ×3 (08:33→18:03)
--- NOTE | 2018-02-16 09:28 | PN ---
Teaching Attending Note Name of Resident: Celeste Velazquez ATTENDING PHYSICIAN STATEMENT I saw and evaluated the patient. I reviewed the resident's note and discussed the case with the resident. I agree with the resident's findings and plan as documented. SUBJECTIVE: Not able to obtain hx . no events over night OBJECTIVE: NAD, calm and cooperative. MMM CV: RRR lungs: CTAB Ext: no edema A/P : 87 y/o lady with h/o CKD V, COPD on home O2, GERD, HTN, HLP, DM, and other medical problems who presented with N/V and was found to have RLL PNA 1- RLL CAP: - finished a course of 5 days of Abx . final blood cx neg 2- N/V : likely due to PNA. resolved . tolerated diet PPI f/u with GI for endoscopy due to gastric wall thickening noted on CT scan 3- Pericardial effusion: No tamponade. f/u echo in 1-2 weeks 4- CKD : spoke to daughter Heather, decision was made to do no HD at this point 5- Acute delirium: much improved. 6- HTN: cont norvasc and BB . hold lasix , will resume after dc ( dose will be d/w renal ) 7- h/o DM: A1c 5.7. dispo: BMP is pending . if OK , will dc to rehab penidng bed availability . d/ w SW
[2018-02-16] MEDS ORDERED: PANTOPRAZOLE 40 MG TABLET (FP) PO SCH (10:00)
[2018-02-16] MEDS: amLODIPine BESYLATE 10 MG TABLET (FP) PO SCH (10:52)
[2018-02-16 11:33] LABS: ANION GAP 6 MMOL/L (8-16); BLOOD UREA NITROGEN 50 mg/dL (7-18); CALCIUM 8.4 mg/dL (8.5-10.1); CHLORIDE 104 mmol/L (98-107); CO2 31 mmol/L (21-32); CREATININE 5.1 mg/dL (0.55-1.3); GLUCOSE,RANDOM 194 mg/dL (74-106); POTASSIUM 3.7 mmol/L (3.5-5.1); SODIUM 141 mmol/L (136-145)
--- NOTE | 2018-02-16 14:02 | PN ---
Progress Note, Physician History of Present Illness: Ms. Crouch is an 87 yo female w/ pmh of asthma, COPD (on home O2), HTN, nephrolithiasis, frequent UTIs, prior gastrointestinal bleed, CKD stage IV (L A/ V fistula currently maturing but not in use at this time) who presents for evaluation of 1 week of weakness complicated by 1 day history of nausea/ vomiting with abdominal pain. Patient is creole speaking and daughters who are with her translate. Patient also endorses 2 day history of diarrhea as well. The patient denies chest pain, shortness of breath, headache and dizziness. Denies fever, chills, and constipation. Denies dysuria, frequency, urgency and hematuria. - Current Medication List Current Medications: Active Medications Amlodipine Besylate (Norvasc -) 10 mg PO DAILY [facility] Last Admin: 02/16/18 10:52 Dose: 10 mg Heparin Sodium (Porcine) (Heparin -) 5,000 unit SQ TID [facility] Last Admin: 02/16/18 13:54 Dose: 5,000 unit Metoprolol Succinate (Toprol Xl -) 50 mg PO DAILY [facility] Last Admin: 02/16/18 10:52 Dose: 50 mg Pantoprazole Sodium (Protonix -) 40 mg PO DAILY [facility] Last Admin: 02/16/18 10:52 Dose: 40 mg Rosuvastatin Calcium (Crestor -) 20 mg PO HS [facility] Last Admin: 02/15/18 21:15 Dose: 20 mg Sevelamer Carbonate (Renvela -) 800 mg PO TIDCM [facility] Last Admin: 02/16/18 12:08 Dose: 800 mg - Objective Vital Signs: Vital Signs Temperature 98.1 F 02/16/18 05:30 Pulse Rate 80 02/16/18 05:30 Respiratory Rate 16 02/16/18 05:30 Blood Pressure 159/68 02/16/18 05:30 O2 Sat by Pulse Oximetry (%) 99 02/15/18 21:00 Eyes: Yes: WNL, Conjunctiva Clear, EOM Intact HENT: Yes: WNL, Atraumatic, Normocephalic Neck: Yes: WNL, Supple, Trachea Midline Cardiovascular: Yes: WNL, Regular Rate and Rhythm Respiratory: Yes: WNL, Regular, CTA Bilaterally Gastrointestinal: Yes: WNL, Normal Bowel Sounds Genitourinary: Yes: WNL Musculoskeletal: Yes: WNL Extremities: Yes: WNL Edema: No Integumentary: Yes: WNL Neurological: Yes: WNL, Alert, Oriented ...Motor Strength: WNL Psychiatric: Yes: WNL Labs: CBC, BMP 02/15/18 07:15 02/16/18 10:25 Problem List - Problems (1) Abnormal CT of the abdomen Code(s): R93.5 - ABN FINDINGS ON DX IMAGING OF ABD REGIONS, INC RETROPERITON (2) Dyspnea Code(s): R06.00 - DYSPNEA, UNSPECIFIED (3) Epigastric abdominal pain Code(s): R10.13 - EPIGASTRIC PAIN (4) Esophagitis Code(s): K20.9 - ESOPHAGITIS, UNSPECIFIED (5) GIB (gastrointestinal bleeding) Code(s): K92.2 - GASTROINTESTINAL HEMORRHAGE, UNSPECIFIED (6) Gastritis Code(s): K29.70 - GASTRITIS, UNSPECIFIED, WITHOUT BLEEDING (7) COPD exacerbation Code(s): J44.1 - CHRONIC OBSTRUCTIVE PULMONARY DISEASE W (ACUTE) EXACERBATION (8) Chronic kidney disease Code(s): N18.9 - CHRONIC KIDNEY DISEASE, UNSPECIFIED (9) Diabetes Code(s): E11.9 - TYPE 2 DIABETES MELLITUS WITHOUT COMPLICATIONS (10) Hypercholesterolemia Code(s): E78.00 - PURE HYPERCHOLESTEROLEMIA, UNSPECIFIED (11) Hypertension Code(s): I10 - ESSENTIAL (PRIMARY) HYPERTENSION (12) Pneumonia Code(s): J18.9 - PNEUMONIA, UNSPECIFIED ORGANISM Assessment/Plan - Problems (1) Pericardial effusion Assessment/Plan: moderate amount of pericardial effusion ( increase from previous study); no evidence of cardiac tamponade. Normal WBCs; afebrile; BP WNL-->elevated. F/u clinically. f/u ECHO 1-2 weeks Code(s): I31.3 - PERICARDIAL EFFUSION (NONINFLAMMATORY) (2) Diastolic CHF Code(s): I50.30 - UNSPECIFIED DIASTOLIC (CONGESTIVE) HEART FAILURE (3) Moderate to severe pulmonary hypertension Code(s): I27.20 - PULMONARY HYPERTENSION, UNSPECIFIED (4) COPD exacerbation Code(s): J44.1 - CHRONIC OBSTRUCTIVE PULMONARY DISEASE W (ACUTE) EXACERBATION (5) Chronic kidney disease Assessment/Plan: deteriorating since at least 05/2017; f/u with ping pong table assembler. Code(s): N18.9 - CHRONIC KIDNEY DISEASE, UNSPECIFIED (6) Diabetes Code(s): E11.9 - TYPE 2 DIABETES MELLITUS WITHOUT COMPLICATIONS (7) Hypercholesterolemia Assessment/Plan: on rosuvastatin. Code(s): E78.00 - PURE HYPERCHOLESTEROLEMIA, UNSPECIFIED (8) Hypertension Assessment/Plan: on amlodipine; f/u BP serially. Code(s): I10 - ESSENTIAL (PRIMARY) HYPERTENSION
--- NOTE | 2018-02-16 14:15 | PN ---
Progress Note, Physician History of Present Illness: Pt seen and examined at bedside. She appears calmer today. She is tolerating diet. - Current Medication List Current Medications: Active Medications Amlodipine Besylate (Norvasc -) 10 mg PO DAILY [facility] Last Admin: 02/16/18 10:52 Dose: 10 mg Heparin Sodium (Porcine) (Heparin -) 5,000 unit SQ TID [facility] Last Admin: 02/16/18 13:54 Dose: 5,000 unit Metoprolol Succinate (Toprol Xl -) 50 mg PO DAILY [facility] Last Admin: 02/16/18 10:52 Dose: 50 mg Pantoprazole Sodium (Protonix -) 40 mg PO DAILY [facility] Last Admin: 02/16/18 10:52 Dose: 40 mg Rosuvastatin Calcium (Crestor -) 20 mg PO HS [facility] Last Admin: 02/15/18 21:15 Dose: 20 mg Sevelamer Carbonate (Renvela -) 800 mg PO TIDCM [facility] Last Admin: 02/16/18 12:08 Dose: 800 mg - Objective Vital Signs: Vital Signs Temperature 98.1 F 02/16/18 05:30 Pulse Rate 80 02/16/18 05:30 Respiratory Rate 16 02/16/18 05:30 Blood Pressure 159/68 02/16/18 05:30 O2 Sat by Pulse Oximetry (%) 99 02/15/18 21:00 Constitutional: Yes: Calm Eyes: Yes: Conjunctiva Clear HENT: Yes: Atraumatic Neck: Yes: Supple Cardiovascular: Yes: S1, S2 Respiratory: Yes: CTA Bilaterally, On Nasal O2 Gastrointestinal: Yes: Soft Genitourinary: Yes: WNL Musculoskeletal: Yes: WNL Edema: No Neurological: Yes: Confusion Labs: CBC, BMP 02/15/18 07:15 02/16/18 10:25 Problem List - Problems (1) Esophagitis Code(s): K20.9 - ESOPHAGITIS, UNSPECIFIED (2) Chronic kidney disease Code(s): N18.9 - CHRONIC KIDNEY DISEASE, UNSPECIFIED (3) Diabetes Code(s): E11.9 - TYPE 2 DIABETES MELLITUS WITHOUT COMPLICATIONS Assessment/Plan Current Medications Generic Name Dose Route Start Last Admin Trade Name Freq PRN Reason Stop Dose Admin Amlodipine Besylate 10 mg 02/11/18 10:00 02/16/18 10:52 Norvasc - PO 10 mg DAILY [facility] Administration Heparin Sodium (Porcine) 5,000 unit 02/11/18 14:00 02/16/18 13:54 Heparin - SQ 5,000 unit TID [facility] Administration Metoprolol Succinate 50 mg 02/11/18 10:00 02/16/18 10:52 Toprol Xl - PO 50 mg DAILY [facility] Administration Pantoprazole Sodium 40 mg 02/16/18 10:00 02/16/18 10:52 Protonix - PO 40 mg DAILY [facility] Administration Rosuvastatin Calcium 20 mg 02/11/18 22:00 02/15/18 21:15 Crestor - PO 20 mg HS [facility] Administration Sevelamer Carbonate 800 mg 02/11/18 12:00 02/16/18 12:08 Renvela - PO 800 mg TIDCM [facility] Administration Impression 1. CKD 2. HTN 3. HLD 4. COPD 5. DM 6. pos heb b core 7. abd pain 8. vomiting 9. anemia Plan - will keep lasix on hold for now - pt tolerating diet - family do not want to start HD at this point, will talk to them again - GI workup in progress - pmd Dr sanders [phone], [phone] - will follow Dr Reis
[2018-02-16 15:11] VITALS: BP 142/68; PULSE 72; TEMP 99.1
--- NOTE | 2018-02-16 16:05 | DS ---
Physical Exam: SUBJECTIVE: Patient seen and examined. No acute events overnight. OBJECTIVE: Vital Signs Period Temp Pulse Resp BP Sys/Betancourt Pulse Ox Last 24 Hr 98 F-99.1 F 68-80 16-20 142-159/59-73 99 PHYSICAL EXAM GENERAL: The patient is awake and alert to name only, in no acute distress HEAD: Normal with no signs of trauma. EYES: PERRL, sclera anicteric, conjunctiva clear. No ptosis. ENT: Ears normal, nares patent, dry mucous membranes. LUNGS: Breath sounds equal, clear to auscultation bilaterally, no wheezes, no crackles, no accessory muscle use. HEART: Regular rate and rhythm, S1, S2 without murmur ABDOMEN: Soft, nontender, nondistended, normoactive bowel sounds, no guarding, no rebound, no CVA tenderness EXTREMITIES: 2+ dorsal pedal pulses, warm, no calf tenderness, well-perfused, no edema. NEUROLOGICAL: Confused vs. delirious PSYCH: Pt. was noncooperative with physical exam. SKIN: Warm, dry, normal turgor LABS Laboratory Results - last 24 hr 02/16/18 10:25 Sodium 141 Potassium 3.7 Chloride 104 Carbon Dioxide 31 Anion Gap 6 L BUN 50 H Creatinine 5.1 H Creat Clearance w eGFR 8.00 Random Glucose 194 H Calcium 8.4 L HOSPITAL COURSE: Date of Admission:02/14/18 IMAGING: * CTAP: R basilar consolidation. Moderate pericardial effusion. Gastric thickening, a malignancy cannot be excluded. R hiatal hernia. No acute pathology within abd or pelvis. * CXR: Improvement since 10/08/17. Large heart, sclerotic knob, decreased lung changes. An acute process is not seen. * Head CT: No definite interval change is seen. * Echo: LV size, thickness, fxn are normal. LVEF normal. Moderate pericardial effusion (1-2cm). Pericardial effusion has increased compared to Echo on . Mild to mod MR. Severe TR. RV systolic pressure is elevated at >60 mmHg. Circumferential pericardial effusion is noted. No echocardiographic indications of cardiac tamponade. LV wall motion is normal. 87 y.o. F w/ PMHx. COPD (on 2L O2), HTN, nephrolithiasis, GERD, DM, HLD, frequent UTIs, GI bleed, stage IV CKD w/ A/V fistula (placed but not on HD) presented with nausea and NB/NB vomiting for 2 days, cough and generalized weakness for 1 week. In the ED, CTAP was done that showed RLL consolidation. Pt was given Ceftriaxone and azithromycin. Blood and sputum cultures were neg. Legionella Ag and Strep pneumo Ag were also neg. Pt later switched to Vantin and Azithromycin for treatment of pna and completed a 5 day course of abx throughout hospital stay. CTAP also showed pericardial effusion and cardio was subsequently consulted. Echo was ordered that showed no indication of cardiac tamponade, normal LVEF. Additionally, due to pt's CKD, nephro was consulted. Upon nephro eval, pt was recommended to undergo HD, however, pt's family declined HD at this time. Her initial symptoms of vomiting, cough improved, however pt remained weak. Pt and pt's family weregiven recommendation to discharge her to SNF, however pt's family declined this dispo at this time. Upon discharge, she was advised to follow up with her pcp, nephro for HD, and GI doctor for further evaluation of CTAP findings (gastric thickening). Pt was also advised to follow up with her bass fisher for repeat echo to evaluate pericardial effusion. Pt was given a prescription to take Metoprolol XL and directions to discontinue home Lasix until evaluated by nephro outpatient. All other home meds were continued as directed. Date of Discharge: 02/16/18 Minutes to complete discharge: 40 Discharge Summary Reason For Visit: DIABETES MELLITUS,GASTRITIS,CHRONIC KIDNEY DISEASE Current Active Problems Diastolic CHF (Chronic) Pericardial effusion (Chronic) Condition: Improved - Instructions Diet, Activity, Other Instructions: You were seen in the hospital for complaints of cough and were treated for right lower lobe pneumonia. During your stay, you were given antibiotics and your symptoms improved. An echocardiogram (ultrasound of the heart) was done and you were found to have fluid around your heart. You were evaluated by a bass fisher and found to have no acute cardiac condition at this time. You are being discharged home. Additionally, a CT scan of your abdomen and pelvis was done and you were found to have thickening of your stomach wall. Please follow up with your GI doctor, Dr. Do within 1 week. You will need further evaluation of gastric thickening found on CT scan of the abdomen/pelvis. MEDICAL RECOMMENDATIONS Please stop taking Lasix, and Dr. Reis will guid you regarding that Follow up with your kidney doctor in one week's time to determine if you need to continue lasix. We have started you on a medication for your heart Please continue taking all of your home meds. CONSULT RECOMMENDATIONS Please follow up with your primary care physician within [address] sanders [phone], [phone] Please follow up with your bass fisher, Dr. León within 1-2 weeks. You will need a repeat echocardiogram to assess the fluid around your heart. Please follow up with your GI doctor, Dr. Do within 1 week. You will need further evaluation of gastric thickening found on CT scan of the abdomen/pelvis. Please follow up with your registered route associate, Dr. Reis within 1 week. Referrals: Edson Do DO [Staff Physician] - Jez León MD [Staff Physician] - 2 Weeks Zelda Reis MD [Staff Physician] - 1 Week Disposition: HOME - Home Medications Comprehensive Discharge Medication List: Ambulatory Orders Amlodipine Besylate [Norvasc -] 10 mg PO DAILY 05/03/17 Calcitriol [Rocaltrol] 0.25 mcg PO ASDIR 10/09/17 Fluticasone/Umeclidin/Vilanter [Trelegy Ellipta 100-62.5-25] 1 each IH DAILY 11/18 Levalbuterol HCl 1.25 mg IH Q8H 10/09/17 Polyethylene Glycol 3350 [Miralax 119 gm Btl -] 17 gm PO TID #1 bottle 10/13/17 Esomeprazole Magnesium [Nexium 24Hr] 20 mg PO QID 02/11/18 Linaclotide [Linzess] 290 mcg PO DAILY 02/14/18 Oxybutynin Chloride 5 mg PO DAILY 02/14/18 Sevelamer Carbonate [Renvela -] 800 mg PO TID 02/14/18 Ferrous Sulfate [Feosol] 325 mg PO DAILY [facility] 02/16/18 Metoprolol Succinate [Toprol XL -] 50 mg PO DAILY #30 tab.sr.24h 02/16/18 Pantoprazole Sodium [Protonix -] 40 mg PO DAILY tablet.ec 02/16/18 Rosuvastatin [Crestor -] 20 mg PO HS tablet 02/16/18 Sevelamer Carbonate [Renvela -] 800 mg PO TIDCM tab 02/16/18 This patient is new to me today: Yes Date on this admission: 02/16/18 Emergency Visit: Yes ED Registration Date: 02/14/18 Care time: The patient presented to the Emergency Department on the above date and was hospitalized for further evaluation of their emergent condition. Critical Care patient: No - Discharge Referral Referred to [facility] Med [facility] No Physician Referral: Arturo Do DO (GI)
== END 2018-02-16 20:15 | disposition home or self-care (01) | DRG 194 ==
LOC: JER 17:32 → JERBED 02-11 00:32 → J6S 02-11 06:25 → OBSVTOIN 02-14 15:18
PROVIDERS: ADMIT Internal Medicine; ATTEND Internal Medicine
DX: J18.9 Pneumonia, unspecified organism (principal); N18.5 Chronic kidney disease, stage 5; I50.30 Unspecified diastolic (congestive) heart failure; I31.3 Pericardial effusion (noninflammatory); E87.0 Hyperosmolality and hypernatremia; I13.2 Hypertensive heart and chronic kidney disease with heart failure and with stage 5 chronic kidney disease, or end stage renal disease; R41.0 Disorientation, unspecified; K21.9 Gastro-esophageal reflux disease without esophagitis; E78.5 Hyperlipidemia, unspecified; E11.22 Type 2 diabetes mellitus with diabetic chronic kidney disease; D64.9 Anemia, unspecified; J44.9 Chronic obstructive pulmonary disease, unspecified; R11.2 Nausea with vomiting, unspecified; E86.0 Dehydration; I27.20 Pulmonary hypertension, unspecified
CPT/HCPCS: 36415; 70450-TC; 71045-TC-FY; 74176-TC; 80048; 80053; 81003; 81015; 82247; 82550; 82962; 83036; 83735; 84100; 84439; 84443; 84484; 85025; 85027; 85651; 86140; 87040; 87086; 87899; 93005; 93010; 93306-TC; 97116-GP; 97161-GP; 99283-25; G0378; J1644

== ENCOUNTER 2018-03-04 16:30 | Inpatient (IN) | payer OTHER ==
--- NOTE | 2018-03-04 16:45 | PDOC ---
Rapid Medical Evaluation Chief Complaint: Shortness of Breath Time Seen by Provider: 03/04/18 16:41 Medical Evaluation: Allergies Allergy/AdvReac Type Severity Reaction Status Date / Time egg AdvReac Vomiting Verified 02/14/18 01:43 03/04/18 16:42 I have performed a brief in-person evaluation of this patient. The patient presents with a chief complaint of: sent by renal for admission Pertinent physical exam findings: fine crackles bibasally. 4 word dyspnea I have ordered the following: labs, urine, cxr, ekg The patient will proceed to the ED for further evaluation. Discharge Disposition - Diagnosis Dyspnea - Referrals - Patient Instructions - Post Discharge Activity
--- NOTE | 2018-03-04 17:12 | PDOC ---
History of Present Illness - General Chief Complaint: Shortness of Breath Stated Complaint: PCP ADMIT/DIALYSIS Time Seen by Provider: 03/04/18 16:41 - History of Present Illness Initial Comments: 03/04/18 17:54 The patient is an 87 year old female with a history of HTN, HLD, DM, Asthma, ESRD who presents for admission for dialysis. The patient is accompanied by family who assist in providing the history. They note worsening nausea, vomiting and abdominal discomfort over the past 24 hours. They spoke with the patient's sales agent financial report service Dr. Pack who wanted the patient admitted for dialysis. The patient notes that her symptoms have improved on presentation to the ED, however she continues to be short of breath at baseline and utilizes home O2. They otherwise deny fevers, chills, chest pain, or changes with urination or bowel movements. Past History - Past Medical History Allergies/Adverse Reactions: Allergies Allergy/AdvReac Type Severity Reaction Status Date / Time egg AdvReac Vomiting Verified 02/14/18 01:43 Home Medications: Ambulatory Orders Amlodipine Besylate [Norvasc -] 10 mg PO DAILY 05/03/17 Calcitriol [Rocaltrol] 0.25 mcg PO TID 10/09/17 Esomeprazole Magnesium [Nexium 24Hr] 20 mg PO BID 02/11/18 Metoprolol Succinate [Toprol XL -] 50 mg PO DAILY #30 tab.sr.24h 02/16/18 Rosuvastatin [Crestor -] 20 mg PO HS tablet 02/16/18 Sevelamer Carbonate [Renvela -] 800 mg PO TIDCM tab 02/16/18 Insulin Lispro [Humalog] 100 unit SQ ASDIR 03/04/18 Levalbuterol Tartrate [Xopenex Hfa] 15 gm IH PRN PRN 03/04/18 Pregabalin [Lyrica -] 75 mg PO DAILY 03/04/18 Asthma: Yes COPD: Yes Diabetes: Yes HTN: Yes Kidney Stones: Yes - Immunization History Immunization Up to Date: Yes - Suicide/Smoking/Psychosocial Hx Smoking History: Never smoked Have you smoked in the past 12 months: No Number of Cigarettes Smoked Daily: 0 Cigars Per Day: 0 Information on smoking cessation initiated: No Hx Alcohol Use: No Drug/Substance Use Hx: No Substance Use Type: None Hx Substance Use Treatment: No Review of Systems - Review of Systems Comments:: 03/04/18 18:02 Constitutional: No fevers, chills, fatigue, malaise HEENT: No Rhinorrhea, nasal congestion, visual changes Cardiovascular: No chest pain, syncope, palpitations, lightheadedness Respiratory: SOB. No Cough, Hemoptysis, Gastrointestinal: Abdominal pain, nausea, vomiting. No Constipation, Diarrhea, Melena Genitourinary: No Dysuria, Frequency, Urgency, Hesitancy, Hematuria, Flank pain Musculoskeletal: No Myalgia, arthralgia Skin: No rashes, itching, bruising, pallor Neurologic: No Headache, Dizziness, Numbness, Weakness, or Tingling Psychiatric: No Hallucinations. No SI or HI *Physical Exam - Vital Signs Last Vital Signs Temp Pulse Resp BP Pulse Ox 97.3 F L 95 H 16 181/73 H 97 03/04/18 16:41 03/04/18 16:41 03/04/18 16:41 03/04/18 16:41 03/04/18 16:41 - Physical Exam Comments: 03/04/18 18:02 General Appearance: Nourished. No Apparent Distress HEENT: No Pharyngeal Erythema, Tonsillar Exudate, Tonsillar Erythema Neck: No Cervical Lymphadenopathy Respiratory/Chest: Lungs Clear, Normal Breath Sounds. No Crackles, Rales, Rhonchi, Wheezing Cardiovascular: Regular Rhythm, Regular Rate. No Murmur, Gallops, Rubs Gastrointestinal/Abdominal: Normal Bowel Sounds, Soft. No Guarding, Rebound, Tenderness Musculoskeletal: No CVA Tenderness Extremity: Left AV fistula in place with palpable thrill. Normal Capillary Refill Integumentary: Normal Color, Dry, Warm Neurologic: Fully Oriented, Alert, Normal Mood/Affect, Normal Response, Moderate Sedation - Procedure Monitoring Vital Signs: Procedure Monitoring Vital Signs Temperature 97.3 F L 03/04/18 16:41 Pulse Rate 95 H 03/04/18 16:41 Respiratory Rate 16 03/04/18 16:41 Blood Pressure 181/73 H 03/04/18 16:41 O2 Sat by Pulse Oximetry (%) 97 03/04/18 16:41 ED Treatment Course - LABORATORY CBC & Chemistry Diagram: 03/06/18 06:10 03/06/18 06:10 Medical Decision Making - Medical Decision Making 03/04/18 18:03 The patient is an 87 year old female with a history of HTN, HLD, DM, Asthma, ESRD who presents for admission for dialysis. Given the patient's history and physical exam, we will obtain a cbc, cmp, coags, ekg, chest plain film to evaluate further. We will continue to monitor and reassess while here in the ED. 03/04/18 20:00 CBC, is unremarkable. CMP demonstrates an elevated creatinine. Chest plain film is unremarkable. The patient was signed out to the night team pending admission under the hospitalists for dialysis. *DC/Admit/Observation/Transfer Diagnosis at time of Disposition: Dyspnea - Referrals - Patient Instructions - Post Discharge Activity
--- NOTE | 2018-03-04 17:50 | PDOC ---
Attending Attestation - HPI HPI: 03/04/18 17:54 The patient is a 87 year old female, creole speaking with sisters at bedside, with a significant past medical history of asthma, COPD (on home O2), HTN, nephrolithiasis, frequent UTIs , who presents to the emergency department sent by Dr. Reis for HD who complains of nausea, vomiting, and shakes today. The daughter at bedside states the patient had been looking well the past 3 days, however, woke up nauseous and had multiple episodes of NBNB emesis. The patient reports mild abdominal discomfort yesterday which was alleviated after a bowel movement. She denies pain today. The patient denies chest pain, shortness of breath, headache and dizziness. The patient denies fever, chills, and constipation. The patient denies dysuria, frequency, urgency and hematuria. Allergies: NKDA - Physicial Exam PE: 03/04/18 17:54 GENERAL: The patient is in no acute distress. HEAD: Normal with no signs of trauma. EYES: PERRLA, EOMI, sclera anicteric, conjunctiva clear. ENT: Ears normal, nares patent, oropharynx clear without exudates. Moist mucous membranes. NECK: Normal range of motion, supple without lymphadenopathy, JVD, or masses. LUNGS: (+) coarse breath sounds. Breath sounds equal, No wheezes, and no crackles. HEART:Regular rate and rhythm, normal S1 and S2 without murmur, rub or gallop. ABDOMEN: Soft, nontender, normoactive bowel sounds. No guarding, no rebound. No masses palpable. EXTREMITIES: Normal range of motion, no edema. No clubbing or cyanosis. No erythema, or tenderness. NEUROLOGICAL: (+) tremulous. Cranial nerves II through XII grossly intact. Normal speech. No focal neurological deficits. MUSCULOSKELETAL: Back non-tender to palpation, no CVA tenderness SKIN: Warm, Dry, normal turgor, no rashes or lesions noted. - Medical Decision Making 03/04/18 17:54 Documentation prepared by Nafisa Arellano, acting as medical claims specialist for Pattie Garcia MD <Nafisa Arellano - Last Filed: 03/04/18 17:54> - Resident Resident Name: Obed Claudio - ED Attending Attestation I have performed the following: I have examined & evaluated the patient, The case was reviewed & discussed with the resident, I agree w/resident's findings & plan, Exceptions are as noted - Medical Decision Making 03/04/18 17:53 EKG - Twelve-lead EKG was performed and reviewed by me. There is normal sinus rhythm with a normal rate. The axis is normal. The intervals are normal. There are no ST or T wave abnormalities. Impression: Normal twelve-lead EKG Labs pending Pt sent to the ER for initiation of HD Signed out to Dr Larsen <Pattie Garcia - Last Filed: 03/06/18 08:06>
[2018-03-04 18:09] LABS: BASO % 0.9 % (0-2.0); EOS % 0.6 % (0-4.5); HEMATOCRIT 26.4 % (32.4-45.2); HEMOGLOBIN 9.2 GM/dL (10.7-15.3); LYMPH % 13.4 % (8-40); MCH 27.6 pg (25.7-33.7); MCHC 34.8 g/dl (32.0-36.0); MEAN CELL VOLUME 79.5 fl (80-96); MONO % 4.1 % (3.8-10.2); PLATELET COUNT 273 K/MM3 (134-434); RBC 3.32 M/mm3 (3.60-5.2); RDW 17.5 % (11.6-15.6); WHITE BLOOD COUNT 4.8 K/mm3 (4.0-10.0)
[2018-03-04 18:33] LABS: INR 0.9 (0.83-1.09); PROTHROMBIN TIME (PATIENT) 10.6 SEC (9.7-13.0)
[2018-03-04 18:54] LABS: ALBUMIN 3.7 g/dl (3.4-5.0); ALK PHOS 72 U/L (45-117); ANION GAP 5 MMOL/L (8-16); BILIRUBIN,TOTAL 0.9 mg/dL (0.2-1); BLOOD UREA NITROGEN 43 mg/dL (7-18); CALCIUM 9.2 mg/dL (8.5-10.1); CHLORIDE 103 mmol/L (98-107); CO2 32 mmol/L (21-32); CREATININE 5.9 mg/dL (0.55-1.3); GLUCOSE,RANDOM 156 mg/dL (74-106); POTASSIUM 4.8 mmol/L (3.5-5.1); SGOT/AST 20 U/L (15-37); SGPT/ALT 24 U/L (13-61); SODIUM 140 mmol/L (136-145); TOT PROT 7.2 g/dl (6.4-8.2)
--- NOTE | 2018-03-04 19:34 | PN ---
Teaching Attending Note Name of Resident: Xin Barrera ATTENDING PHYSICIAN STATEMENT I saw and evaluated the patient. I reviewed the resident's note and discussed the case with the resident. I agree with the resident's findings and plan as documented. SUBJECTIVE: Patient is an 87 year old woman with a history of HTN, HLD, DM, Asthma and ESRD who presents for admission for dialysis. The patient is accompanied by family who assist in providing the history. They note worsening nausea, vomiting and abdominal discomfort over the past 24 hours. They spoke with the patient's forensic sergeant Dr. Pack who wanted the patient admitted for dialysis. The patient notes that her symptoms have improved on presentation to the ED, however she continues to have SOB and is on home O2. She denies fevers, chills , chest pain, or changes with urination or bowel movements. OBJECTIVE: Alert Vital Signs Period Temp Pulse Resp BP Sys/Betancourt Pulse Ox Last 24 Hr 97.3 F 77-95 16-16 140-181/73-73 97-99 HEENT: No Jaundice, eye redness or discharge, PERRLA, EOMI. Normocephalic, atraumatic. External ears are normal and hearing is grossly intact. No nasal discharge. Neck: Supple, nontender. No palpable adenopathy or thyromegaly. No JVD Chest: Good effort. Clear to auscultation and percussion. Heart: Regular. No S3, rub or murmur Abdomen: Not distended, soft, nontender and no HSM. No rebound or guarding. Normoactive bowel sounds. Ext: Peripheral pulses intact. Left UE AVF - good thrill and bruit. Trace leg edema. Skin: Warm and dry. No petechiae, rash or ecchymosis. Neuro: Alert. Oriented x3. CN 2-12 grossly intact. Sensation grossly intact in all four extremities and DTR are symmetric. Home Medications Medication Instructions Recorded Amlodipine Besylate [Norvasc -] 10 mg PO DAILY 05/03/17 Calcitriol [Rocaltrol] 0.25 mcg PO TID 10/09/17 Esomeprazole Magnesium [Nexium 20 mg PO BID 02/11/18 24Hr] Metoprolol Succinate [Toprol XL -] 50 mg PO DAILY #30 tab.sr.24h 02/16/18 Rosuvastatin [Crestor -] 20 mg PO HS tablet 02/16/18 Sevelamer Carbonate [Renvela -] 800 mg PO TIDCM tab 02/16/18 Insulin Lispro [Humalog] 100 unit SQ ASDIR 03/04/18 Levalbuterol Tartrate [Xopenex Hfa] 15 gm IH PRN PRN 03/04/18 Pregabalin [Lyrica -] 75 mg PO DAILY 03/04/18 Abnormal Lab Results 03/04/18 03/04/18 17:36 17:53 RBC 3.32 L Hgb 9.2 L Hct 26.4 L MCV 79.5 L RDW 17.5 H Anion Gap 5 L BUN 43 H Creatinine 5.9 H Random Glucose 156 H ASSESSMENT AND PLAN: 1. ESRD - Patient showing symptoms of uremia. CXR shows cardiomegaly. For hemodialysis tomorrow. Continue PPI for possible gastritis. BP improved. Restart home antihypertensive drugs to ultimately attain normotension. Nonpharmacologic measures to control hypertension like weight loss, salt restriction and exercise discussed. 2. DM - For now, we will hold the home diabetes drugs and implement sliding scale insulin regimen. Provide comprehensive diabetes care with patient teaching and counseling about the importance of euglycemia, eye care and foot care. 3. Low MCV Anemia - Do basic anemia work up including serial stool guaiacs, reticulocyte count and iron studies. Would benefit from Procrit therapy once iron replete. 4. DVT prophylaxis - Heparin 5000u sq tid. 5. Advance directives - Full code
--- NOTE | 2018-03-04 21:25 | HP ---
CHIEF COMPLAINT: Starting HD PCP: NEPHRO: Dr. Reis DAUGHTER: Heather Francis [phone] HISTORY OF PRESENT ILLNESS: 87 y/o F, Primarily creole speaking, with PMHx of Stage 4 CKD, COPD (on 2L Home O2), HTN, GERD, DM, CHF presents from Dr. Reis's office to begin HD. Patient is primarily creole speaking, thus most of the history was provided by the Daughter, Heather at bedside. Patients AV Fistula was placed in November [address] Gaming; Patient has not had HD in the past. Patient was recently discharged from [facility] on 02/15 after completing a 5 day course of ABx for PNA. Patient tolerated her meals yesterday and went to sleep without any new symptoms. This morning, patient woke feeling Nausea accompanied by 5 episodes of NBNB Vomiting, Abdominal Discomfort and SOB. She tried her home meds and Inhaler without relief. During her routine appointment at Dr. Reis' s office today, The decision was made to begin hemodialysis tomorrow and the patient visited the ED. Denies any recent fevers, chills, chest pain, SOB, nausea, vomiting, diarrhea, constipation. Recent Travel: Denies PAST MEDICAL HISTORY: Stage 4 CKD (with AV Fistula placed but has not started HD yet), Subdural hematoma, COPD (on 2L Home O2), HTN, GERD, Nephrolithiasis, DM, Frequent UTIs, Asthma, CVA, CHF PAST SURGICAL HISTORY: Subdural hematoma requiring 2 surgeries Social History: Smoking: Quit 30 years ago Alcohol: Denies Drugs: Denies Ambulation: Walker Residence: Lives with Daughter and has multimedia designer Aide Family History: Denies Allergies egg Adverse Reaction (Verified 02/14/18 01:43) Vomiting HOME MEDICATIONS: Home Medications Medication Instructions Recorded Amlodipine Besylate [Norvasc -] 10 mg PO DAILY 05/03/17 Calcitriol [Rocaltrol] 0.25 mcg PO TID 10/09/17 Esomeprazole Magnesium [Nexium 20 mg PO BID 02/11/18 24Hr] Metoprolol Succinate [Toprol XL -] 50 mg PO DAILY #30 tab.sr.24h 02/16/18 Rosuvastatin [Crestor -] 20 mg PO HS tablet 02/16/18 Sevelamer Carbonate [Renvela -] 800 mg PO TIDCM tab 12/17/18 Insulin Lispro [Humalog] 100 unit SQ ASDIR 03/04/18 Levalbuterol Tartrate [Xopenex Hfa] 15 gm IH PRN PRN 03/04/18 Pregabalin [Lyrica -] 75 mg PO DAILY 03/04/18 REVIEW OF SYSTEMS As per HPI PHYSICAL EXAMINATION Vital Signs - 24 hr 03/04/18 03/04/18 16:41 18:27 Temperature 97.3 F L Pulse Rate 95 H 95 H Pulse Rate [ 77 Left Apical] Respiratory 16 16 Rate Blood Pressure 181/73 H Blood Pressure 140/73 [Right Arm] O2 Sat by Pulse 97 99 Oximetry (%) GENERAL: A&Ox3, NAD HEAD: NCAT EYES: PERRL, EOMI EARS, NOSE, THROAT: Moist mucous membranes. NECK: No JVD LUNGS: Rales at the bases, No wheezes, no crackles HEART: Regular rate and rhythm, normal S1 and S2 without murmur ABDOMEN: Soft, nontender, not distended, + bowel sounds, no guarding, no rebound UPPER EXTREMITIES: Left Upper extremity AV Fistula with palpable thrill and auscultatable bruit LOWER EXTREMITIES: 2+ pulses, Trace edema NEUROLOGICAL: Cranial nerves II-XII intact. SKIN: Warm, dry Laboratory Results - last 24 hr 03/04/18 03/04/18 03/04/18 17:36 17:36 17:53 WBC 4.8 RBC 3.32 L Hgb 9.2 L Hct 26.4 L MCV 79.5 L MCH 27.6 MCHC 34.8 RDW 17.5 H Plt Count 273 D MPV 9.0 Absolute Neuts (auto) 3.9 Neutrophils % 81.0 D Lymphocytes % 13.4 D Monocytes % 4.1 Eosinophils % 0.6 Basophils % 0.9 Nucleated RBC % 0 PT with INR 10.60 INR 0.90 Sodium 140 Potassium 4.8 Chloride 103 Carbon Dioxide 32 Anion Gap 5 L BUN 43 H Creatinine 5.9 H Creat Clearance w eGFR 6.76 Random Glucose 156 H Calcium 9.2 Total Bilirubin 0.9 AST 20 ALT 24 Alkaline Phosphatase 72 Total Protein 7.2 Albumin 3.7 ASSESSMENT/PLAN: 87 y/o F with PMHx of Stage 4 CKD, COPD (on 2L Home O2), HTN, GERD, DM, CHF presents to begin HD #Stage 4 CKD -To begin HD Tmrw -AV Fistula placed by Dr. Gaming on 11/18 with palpable thrill -Nephrology (Dr. Reis) consulted -NPO -EKG: NSR, VR 95, QTc 424 #Microcytic Anemia -Iron studies, Retic Count, FOBT Pending #DM -ISS BGMs ACHS #HTN -Restart home dose Norvasc, Metoprolol #GERD -PO Protonix 20mg BID #COPD -CXR: Large heart, No infiltrate or effusion on my read, pending official read -Continue 2L via NC -Continue home dose inhalers #FEN -PO FLuids -Lytes WNL -NPO #PPx -DVT: Heparin TID Dispo: Admit to Med-Surg, will need Med-Rec Visit type - Emergency Visit Emergency Visit: Yes ED Registration Date: 03/04/18 Care time: The patient presented to the Emergency Department on the above date and was hospitalized for further evaluation of their emergent condition. - New Patient This patient is new to me today: Yes Date on this admission: 03/06/18 - Critical Care Critical Care patient: No
[2018-03-04] MEDS ORDERED: PANTOPRAZOLE 40 MG TABLET (FP) ONE (22:10)
[2018-03-04] MEDS ORDERED: INSULIN (NOVOLOG) ASPART 100 UNITS/ML 10ML VIAL ONE (22:26)
[2018-03-04] MEDS: PANTOPRAZOLE 20 MG TABLET (FP) PO SCH (22:32)
[2018-03-04] MEDS: INSULIN SLIDING SCALE (NOVOLOG) 1 VIAL SQ SCH (22:32)
[2018-03-04] MEDS ORDERED: SODIUM CHLORIDE 250 ML IV PRN (22:58)
[2018-03-05] MEDS: INSULIN SLIDING SCALE (NOVOLOG) 1 VIAL SQ SCH ×4 (06:05→22:01)
[2018-03-05] MEDS: HEPARIN NA (PORCINE) 5,000 UNITS/ML 1ML VIAL SQ SCH ×3 (06:06→21:56)
[2018-03-05 07:47] LABS: BASO % 0.5 % (0-2.0); EOS % 1.3 % (0-4.5); HEMATOCRIT 25.3 % (32.4-45.2); HEMOGLOBIN 8.2 GM/dL (10.7-15.3); LYMPH % 28.9 % (8-40); MCH 26.4 pg (25.7-33.7); MCHC 32.4 g/dl (32.0-36.0); MEAN CELL VOLUME 81.4 fl (80-96); MEAN PLT VOLUME 8.3 fl (7.5-11.1); NEUT % 62.3 % (42.8-82.8); PLATELET COUNT 204 K/MM3 (134-434); RDW 17.1 % (11.6-15.6); WHITE BLOOD COUNT 4.7 K/mm3 (4.0-10.0)
[2018-03-05 08:37] LABS: ALBUMIN 3.2 g/dl (3.4-5.0); ALK PHOS 64 U/L (45-117); ANION GAP 5 MMOL/L (8-16); BILIRUBIN,TOTAL 0.9 mg/dL (0.2-1); BLOOD UREA NITROGEN 44 mg/dL (7-18); CALCIUM 8.5 mg/dL (8.5-10.1); CHLORIDE 105 mmol/L (98-107); CO2 30 mmol/L (21-32); CREATININE 5.7 mg/dL (0.55-1.3); GLUCOSE,RANDOM 79 mg/dL (74-106); PHOSPHOROUS 4.5 mg/dL (2.5-4.9); POTASSIUM 4.4 mmol/L (3.5-5.1); SGOT/AST 16 U/L (15-37); SGPT/ALT 21 U/L (13-61); SODIUM 140 mmol/L (136-145)
[2018-03-05] MEDS: amLODIPine BESYLATE 10 MG TABLET (FP) PO SCH ×2 (12:13→15:41)
--- NOTE | 2018-03-05 15:09 | CONSULT ---
Consult Consult Specialty:: Nephrology Reason for Consultation:: ESRD - History of Present Illness Chief Complaint: sent in for uremia History of Present Illness: Pt is an 87 year old female with pmhx of ckd htn and anemia who I sent in from my office to start HD. She presented yesterday with weakness and vomiting. She has not had appetite. She also has worsening of her shortness of breath. She denies chest pain. Her renal failure has been progressive. She does have a fistula. - History Source History Provided By: Medical Record - Past Medical History Cardio/Vascular: Yes: HTN Pulmonary: Yes: COPD Gastrointestinal: Yes: GERD Renal/: Yes: Renal Inusuff, Renal Calculi (maybe- she had flank pain) Endocrine: Yes: Diabetes Mellitus - Past Surgical History Past Surgical History: Yes: AV Fistula/Graft - Alcohol/Substance Use Hx Alcohol Use: No - Smoking History Smoking history: Former smoker Have you smoked in the past 12 months: No Aproximately how many cigarettes per day: 0 Home Medications - Allergies Allergies/Adverse Reactions: Allergies Allergy/AdvReac Type Severity Reaction Status Date / Time egg AdvReac Vomiting Verified 02/14/18 01:43 - Home Medications Home Medications: Ambulatory Orders Amlodipine Besylate [Norvasc -] 10 mg PO DAILY 05/03/17 Calcitriol [Rocaltrol] 0.25 mcg PO TID 10/09/17 Esomeprazole Magnesium [Nexium 24Hr] 20 mg PO BID 02/11/18 Metoprolol Succinate [Toprol XL -] 50 mg PO DAILY #30 tab.sr.24h 02/16/18 Rosuvastatin [Crestor -] 20 mg PO HS tablet 02/16/18 Sevelamer Carbonate [Renvela -] 800 mg PO TIDCM tab 02/16/18 Insulin Lispro [Humalog] 100 unit SQ ASDIR 03/04/18 Levalbuterol Tartrate [Xopenex Hfa] 15 gm IH PRN PRN 03/04/18 Pregabalin [Lyrica -] 75 mg PO DAILY 03/04/18 Family Disease History - Family Disease History Family History: Unable to Obtain Review of Systems - Review of Systems Constitutional: reports: Loss of Appetite, Malaise. denies: Chills, Fever Eyes: reports: No Symptoms HENT: reports: No Symptoms Neck: reports: No Symptoms Cardiovascular: reports: Edema, Shortness of Breath Respiratory: reports: Cough, SOB, SOB on Exertion Gastrointestinal: reports: Nausea, Vomiting Musculoskeletal: reports: No Symptoms Integumentary: reports: No Symptoms Neurological: reports: No Symptoms Endocrine: reports: No Symptoms Hematology/Lymphatic: reports: No Symptoms Physical Exam Vital Signs: Vital Signs Temperature 97.5 F L 03/05/18 14:58 Pulse Rate 87 03/05/18 14:58 Respiratory Rate 18 03/05/18 14:58 Blood Pressure 183/77 H 03/05/18 14:58 O2 Sat by Pulse Oximetry (%) 98 03/05/18 09:00 Constitutional: Yes: Calm Eyes: Yes: Conjunctiva Clear HENT: Yes: Atraumatic Cardiovascular: Yes: S1, S2 Respiratory: Yes: On Nasal O2 Gastrointestinal: Yes: Normal Bowel Sounds, Soft Renal/: Yes: WNL Musculoskeletal: Yes: WNL Edema: Yes Edema: LLE: Trace, RLE: Trace Neurological: Yes: Oriented Psychiatric: Yes: Oriented Labs: CBC, BMP 03/05/18 06:30 03/05/18 06:30 Laboratory Tests 03/04/18 03/05/18 03/05/18 17:53 06:30 06:30 Hgb 9.2 L 8.2 L Sodium 140 Potassium 4.4 Anion Gap 5 L BUN 44 H Creatinine 5.7 H Hepatitis A Ab Total Hep Bs Antigen Hep Bs Antibody Hep B Core Total Ab Hep C Ab Diagnostic 03/05/18 03/05/18 12:40 12:40 Hgb Sodium Potassium Anion Gap BUN Creatinine Hepatitis A Ab Total Pending Hep Bs Antigen Pending Hep Bs Antibody Pending Hep B Core Total Ab Pending Hep C Ab Diagnostic Pending Imaging - Results Chest X-ray: Report Reviewed Problem List - Problems (1) ESRD (end stage renal disease) Code(s): N18.6 - END STAGE RENAL DISEASE (2) Dyspnea Code(s): R06.00 - DYSPNEA, UNSPECIFIED Assessment/Plan Current Medications Generic Name Dose Route Start Last Admin Trade Name Freq PRN Reason Stop Dose Admin Amlodipine Besylate 10 mg 03/05/18 10:00 03/05/18 12:13 Norvasc - PO Not Given DAILY [facility] Heparin Sodium (Porcine) 5,000 unit 03/05/18 06:00 03/05/18 06:06 Heparin - SQ 5,000 unit TID [facility] Administration Sodium Chloride 250 mls @ 3,000 mls/hr 03/04/18 22:58 Normal Saline - IV 03/05/18 22:58 PRN PRN Hypotension during Dialysis Insulin Aspart 1 vial 03/04/18 22:00 03/05/18 12:13 Novolog Vial Sliding Scale - SQ Not Given ACHS [facility] Protocol Metoprolol Succinate 50 mg 03/05/18 10:00 03/05/18 12:13 Toprol Xl - PO Not Given DAILY [facility] Pantoprazole Sodium 20 mg 03/04/18 22:00 03/04/18 22:32 Protonix - PO 20 mg BID [facility] Administration Impression 1. ESRD 2. HTN 3. HLD 4. COPD 5. DM 6. pos heb b core 7. abd pain 8. vomiting 9. anemia Plan - will start HD today - pt seen on HD - discussed with family at bedside - follow hep panel - hold bp meds before HD - will dialyze a short run today - will not UF volume today - [facility] - spoke to nurse outreach case manager - will follow Dr Reis
[2018-03-05] MEDS ORDERED: PT OWN MED DRAWER 7, Y5N ONE (15:27)
[2018-03-05] MEDS: PANTOPRAZOLE 20 MG TABLET (FP) PO SCH ×2 (15:41→21:56)
--- NOTE | 2018-03-05 16:13 | PN ---
Physical Exam: SUBJECTIVE: Patient seen and examined. Abdominal pain, nausea, vomiting improved. OBJECTIVE: Vital Signs Period Temp Pulse Resp BP Sys/Betancourt Pulse Ox Last 24 Hr 97.3 F-98.2 F 77-97 16-18 140-188/57-101 97-99 GENERAL: The patient is awake, alert, and fully oriented, in no acute distress. LUNGS: Breath sounds equal, clear to auscultation bilaterally, no wheezes, no crackles, no accessory muscle use. HEART: Regular rate and rhythm, S1, S2 without murmur, rub or gallop. ABDOMEN: Soft, nontender, nondistended, normoactive bowel sounds, no guarding, no rebound, no hepatosplenomegaly, no masses. EXTREMITIES: 2+ pulses, warm, well-perfused, no edema. Laboratory Results - last 24 hr 03/04/18 03/04/18 03/04/18 06:30 17:36 17:36 WBC RBC Hgb Hct MCV MCH MCHC RDW Plt Count MPV Absolute Neuts (auto) Neutrophils % Lymphocytes % Monocytes % Eosinophils % Basophils % Nucleated RBC % Retic Count 1.02 PT with INR 10.60 INR 0.90 Sodium 140 Potassium 4.8 Chloride 103 Carbon Dioxide 32 Anion Gap 5 L BUN 43 H Creatinine 5.9 H Creat Clearance w eGFR 6.76 POC Glucometer Random Glucose 156 H Calcium 9.2 Phosphorus Magnesium Ferritin Total Bilirubin 0.9 AST 20 ALT 24 Alkaline Phosphatase 72 Total Protein 7.2 Albumin 3.7 03/04/18 03/04/18 03/05/18 17:53 22:14 06:04 WBC 4.8 RBC 3.32 L Hgb 9.2 L Hct 26.4 L MCV 79.5 L MCH 27.6 MCHC 34.8 RDW 17.5 H Plt Count 273 D MPV 9.0 Absolute Neuts (auto) 3.9 Neutrophils % 81.0 D Lymphocytes % 13.4 D Monocytes % 4.1 Eosinophils % 0.6 Basophils % 0.9 Nucleated RBC % 0 Retic Count PT with INR INR Sodium Potassium Chloride Carbon Dioxide Anion Gap BUN Creatinine Creat Clearance w eGFR POC Glucometer 152.01155 89 Random Glucose Calcium Phosphorus Magnesium Ferritin Total Bilirubin AST ALT Alkaline Phosphatase Total Protein Albumin 03/05/18 03/05/18 03/05/18 06:30 06:30 11:57 WBC 4.7 RBC 3.10 L Hgb 8.2 L Hct 25.3 L MCV 81.4 MCH 26.4 MCHC 32.4 RDW 17.1 H Plt Count 204 D MPV 8.3 Absolute Neuts (auto) 2.9 Neutrophils % 62.3 D Lymphocytes % 28.9 D Monocytes % 7.0 Eosinophils % 1.3 D Basophils % 0.5 Nucleated RBC % 0 Retic Count PT with INR INR Sodium 140 Potassium 4.4 Chloride 105 Carbon Dioxide 30 Anion Gap 5 L BUN 44 H Creatinine 5.7 H Creat Clearance w eGFR 7.04 POC Glucometer 89 Random Glucose 79 Calcium 8.5 Phosphorus 4.5 Magnesium 2.0 Ferritin 31.8 Total Bilirubin 0.9 AST 16 ALT 21 Alkaline Phosphatase 64 Total Protein 6.0 L Albumin 3.2 L 03/05/18 14:25 WBC RBC Hgb Hct MCV MCH MCHC RDW Plt Count MPV Absolute Neuts (auto) Neutrophils % Lymphocytes % Monocytes % Eosinophils % Basophils % Nucleated RBC % Retic Count PT with INR INR Sodium Potassium Chloride Carbon Dioxide Anion Gap BUN Creatinine Creat Clearance w eGFR POC Glucometer 122 Random Glucose Calcium Phosphorus Magnesium Ferritin Total Bilirubin AST ALT Alkaline Phosphatase Total Protein Albumin Active Medications Generic Name Dose Route Start Last Admin Trade Name Freq PRN Reason Stop Dose Admin Amlodipine Besylate 10 mg 03/05/18 10:00 03/05/18 15:41 Norvasc - PO 10 mg DAILY [facility] Administration Heparin Sodium (Porcine) 5,000 unit 03/05/18 06:00 03/05/18 15:42 Heparin - SQ 5,000 unit TID [facility] Administration Sodium Chloride 250 mls @ 3,000 mls/hr 03/04/18 22:58 Normal Saline - IV 03/05/18 22:58 PRN PRN Hypotension during Dialysis Insulin Aspart 1 vial 03/04/18 22:00 03/05/18 12:13 Novolog Vial Sliding Scale - SQ Not Given ACHS [facility] Protocol Metoprolol Succinate 50 mg 03/05/18 10:00 03/05/18 15:41 Toprol Xl - PO 50 mg DAILY [facility] Administration Pantoprazole Sodium 20 mg 03/04/18 22:00 03/05/18 15:41 Protonix - PO 20 mg BID [facility] Administration ASSESSMENT/PLAN: This is an 87 year old woman with a history of stage 4 CKD, chronic hypoxic respiratory failure, COPD, HTN, GERD, type 2 DM, chronic diastolic heart failure who presented to the ED with SOB, abdominal pain, nausea, vomiting. 1. ESRD - HD started today - Will do outpatient HD at [facility] 2. Abdominal pain, nausea, vomiting, SOB secondary to ESRD - Improved after HD - Start clear liquids and advance as tolerated 3. Anemia, likely secondary to CKD - Iron studies pending 4. Type 2 DM - Continue Novolog sliding scale 5. HTN - Continue Norvasc, Toprol XL 6. GERD - Continue Protonix 7. Chronic hypoxic respiratory failure secondary to COPD - Continue oxygen to maintain saturation >90% 8. Chronic diastolic heart failure - Stable Visit type - Emergency Visit Emergency Visit: Yes ED Registration Date: 03/04/18 Care time: The patient presented to the Emergency Department on the above date and was hospitalized for further evaluation of their emergent condition. - New Patient This patient is new to me today: Yes Date on this admission: 03/05/18 - Critical Care Critical Care patient: No - Discharge Referral Referred to [facility] Med [facility] No
--- NOTE | 2018-03-05 16:19 | EKG ---
Test Reason : Blood Pressure : / mmHG Vent. Rate : 095 BPM Atrial Rate : 095 BPM P-R Int : 198 ms QRS Dur : 084 ms QT Int : 338 ms P-R-T Axes : 065 068 058 degrees QTc Int : 424 ms NORMAL SINUS RHYTHM NORMAL ECG WHEN COMPARED WITH ECG OF 10-FEB-2018 19:52, PREMATURE ATRIAL COMPLEXES ARE NO LONGER PRESENT Confirmed by MADELINE ALDANA MD ([id number]) on 03/05/2018 4:19:19 PM Referred By: Confirmed By:MADELINE ALDANA MD
[2018-03-06 04:15] LABS: SERUM IRON SATURATION 14 % (15-55); TOTAL IRON BINDING CAPACITY 301 ug/dL (250-450); UIBC 258 ug/dL (118-369)
[2018-03-06] MEDS: HEPARIN NA (PORCINE) 5,000 UNITS/ML 1ML VIAL SQ SCH ×3 (07:00→21:02)
[2018-03-06] MEDS: INSULIN SLIDING SCALE (NOVOLOG) 1 VIAL SQ SCH ×4 (07:02→21:46)
[2018-03-06 07:30] LABS: HEMATOCRIT 24.1 % (32.4-45.2); HEMOGLOBIN 7.7 GM/dL (10.7-15.3); MCH 25.8 pg (25.7-33.7); MCHC 31.8 g/dl (32.0-36.0); MEAN PLT VOLUME 8.7 fl (7.5-11.1); PLATELET COUNT 171 K/MM3 (134-434); RBC 2.98 M/mm3 (3.60-5.2); RDW 16.9 % (11.6-15.6); WHITE BLOOD COUNT 3.5 K/mm3 (4.0-10.0)
[2018-03-06 07:46] LABS: ANION GAP 6 MMOL/L (8-16); BLOOD UREA NITROGEN 27 mg/dL (7-18); CALCIUM 8.6 mg/dL (8.5-10.1); CHLORIDE 104 mmol/L (98-107); CO2 32 mmol/L (21-32); CREATININE 4.3 mg/dL (0.55-1.3); GLUCOSE,RANDOM 77 mg/dL (74-106); POTASSIUM 4.1 mmol/L (3.5-5.1); SODIUM 142 mmol/L (136-145)
--- NOTE | 2018-03-06 14:08 | PN ---
Progress Note, Physician History of Present Illness: Pt seen and examined at bedside. She tolerated HD yesterday. She feels that her appetite is improved. - Current Medication List Current Medications: Active Medications Amlodipine Besylate (Norvasc -) 10 mg PO DAILY [facility] Last Admin: 03/05/18 15:41 Dose: 10 mg Heparin Sodium (Porcine) (Heparin -) 5,000 unit SQ TID [facility] Last Admin: 03/06/18 07:00 Dose: 5,000 unit Sodium Chloride (Normal Saline -) 250 mls @ 3,000 mls/hr IV PRN PRN PRN Reason: Hypotension during Dialysis Stop: 03/05/18 22:58 Insulin Aspart (Novolog Vial Sliding Scale -) 1 vial SQ ACHS [facility]; Protocol Last Admin: 03/06/18 12:10 Dose: Not Given Metoprolol Succinate (Toprol Xl -) 50 mg PO DAILY [facility] Last Admin: 03/05/18 15:41 Dose: 50 mg Pantoprazole Sodium (Protonix -) 20 mg PO BID [facility] Last Admin: 03/05/18 21:56 Dose: 20 mg - Objective Vital Signs: Vital Signs Temperature 97.9 F 03/06/18 06:00 Pulse Rate 78 03/06/18 06:00 Respiratory Rate 18 03/06/18 06:00 Blood Pressure 157/71 03/06/18 06:00 O2 Sat by Pulse Oximetry (%) 98 03/05/18 21:00 Constitutional: Yes: Calm Eyes: Yes: Conjunctiva Clear HENT: Yes: Atraumatic Cardiovascular: Yes: S1, S2 Respiratory: Yes: On Nasal O2 Gastrointestinal: Yes: Soft Genitourinary: Yes: WNL Musculoskeletal: Yes: WNL Edema: Yes Edema: LLE: 1+, RLE: 1+ Neurological: Yes: Oriented Psychiatric: Yes: Oriented Labs: CBC, BMP 03/06/18 06:10 03/06/18 06:10 INR, PTT INR 0.90 (0.83-1.09) 03/04/18 17:36 Problem List - Problems (1) ESRD (end stage renal disease) Code(s): N18.6 - END STAGE RENAL DISEASE (2) Dyspnea Code(s): R06.00 - DYSPNEA, UNSPECIFIED Assessment/Plan Current Medications Generic Name Dose Route Start Last Admin Trade Name Freq PRN Reason Stop Dose Admin Amlodipine Besylate 10 mg 03/05/18 10:00 03/05/18 15:41 Norvasc - PO 10 mg DAILY [facility] Administration Epoetin Nnamdi 6,000 unit 03/06/18 14:05 Epogen - IVPUSH 03/06/18 14:06 ONCE ONE Heparin Sodium (Porcine) 5,000 unit 03/05/18 06:00 03/06/18 07:00 Heparin - SQ 5,000 unit TID [facility] Administration Sodium Chloride 250 mls @ 3,000 mls/hr 03/04/18 22:58 Normal Saline - IV 03/05/18 22:58 PRN PRN Hypotension during Dialysis Sodium Chloride 250 mls @ 3,000 mls/hr 03/06/18 14:05 Normal Saline - IV 03/07/18 14:05 PRN PRN Hypotension during Dialysis Insulin Aspart 1 vial 03/04/18 22:00 03/06/18 12:10 Novolog Vial Sliding Scale - SQ Not Given ACHS [facility] Protocol Metoprolol Succinate 50 mg 03/05/18 10:00 03/05/18 15:41 Toprol Xl - PO 50 mg DAILY [facility] Administration Pantoprazole Sodium 20 mg 03/04/18 22:00 03/05/18 21:56 Protonix - PO 20 mg BID [facility] Administration Impression 1. ESRD 2. HTN 3. HLD 4. COPD 5. DM 6. pos heb b core 7. abd pain 8. vomiting 9. anemia Plan - will arrange for HD today - will do another short run - will start epogen - repeat cbc in am - may need transfusion if she is dropping - renal diet - will UF volume today - can give lasix on non HD days if needed - pending placement in HD - will follow Dr Reis
[2018-03-06] MEDS ORDERED: SODIUM CHLORIDE 250 ML IV PRN (14:34)
[2018-03-06] MEDS ORDERED: EPOETIN ALFA 2,000 UNIT/1 ML VIAL IVPUSH ONE (14:45)
--- NOTE | 2018-03-06 14:48 | PN ---
Physical Exam: SUBJECTIVE: Patient seen and examined, she is back to her baseline per her daughter and she is hungry to eat real food and has tolerated clear liquid diet OBJECTIVE: Vital Signs Period Temp Pulse Resp BP Sys/Betancourt Pulse Ox Last 24 Hr 97.5 F-97.9 F 76-87 18-18 146-183/64-88 98 she is an elderly, at baseline is SOB and has severe NÚÑEZ and is on home o2 Is skiny, in no distress CVS:S1S2 has decreased breath sounds, no wheezing at this time Abd:BS+ NT/ND No ELAINA edema at this time Laboratory Results - last 24 hr 03/05/18 03/05/18 03/05/18 06:30 12:40 14:25 WBC RBC Hgb Hct MCV MCH MCHC RDW Plt Count MPV Sodium Potassium Chloride Carbon Dioxide Anion Gap BUN Creatinine Creat Clearance w eGFR POC Glucometer 122 Random Glucose Calcium Iron 43 TIBC 301 Iron Saturation 14 L Transferrin 243 Hep C Ab Diagnostic 0.1 03/05/18 03/05/18 03/06/18 17:01 22:00 06:10 WBC 3.5 L RBC 2.98 L Hgb 7.7 L Hct 24.1 L MCV 81.0 MCH 25.8 MCHC 31.8 L RDW 16.9 H Plt Count 171 MPV 8.7 Sodium Potassium Chloride Carbon Dioxide Anion Gap BUN Creatinine Creat Clearance w eGFR POC Glucometer 190 80 Random Glucose Calcium Iron TIBC Iron Saturation Transferrin Hep C Ab Diagnostic 03/06/18 03/06/18 03/06/18 06:10 07:01 11:46 WBC RBC Hgb Hct MCV MCH MCHC RDW Plt Count MPV Sodium 142 Potassium 4.1 Chloride 104 Carbon Dioxide 32 Anion Gap 6 L BUN 27 H Creatinine 4.3 H Creat Clearance w eGFR 9.74 POC Glucometer 80 121 Random Glucose 77 Calcium 8.6 Iron TIBC Iron Saturation Transferrin Hep C Ab Diagnostic Active Medications Generic Name Dose Route Start Last Admin Trade Name Freq PRN Reason Stop Dose Admin Amlodipine Besylate 10 mg 03/05/18 10:00 03/05/18 15:41 Norvasc - PO 10 mg DAILY [facility] Administration Epoetin Nnamdi 6,000 unit 03/06/18 14:45 Epogen - IVPUSH 03/06/18 14:46 ONCE ONE Heparin Sodium (Porcine) 5,000 unit 03/05/18 06:00 03/06/18 07:00 Heparin - SQ 5,000 unit TID [facility] Administration Sodium Chloride 250 mls @ 3,000 mls/hr 03/06/18 14:34 Normal Saline - IV 03/07/18 14:33 PRN PRN Hypotension during Dialysis Insulin Aspart 1 vial 03/04/18 22:00 03/06/18 12:10 Novolog Vial Sliding Scale - SQ Not Given ACHS [facility] Protocol Metoprolol Succinate 50 mg 03/05/18 10:00 03/05/18 15:41 Toprol Xl - PO 50 mg DAILY [facility] Administration Pantoprazole Sodium 20 mg 03/04/18 22:00 03/05/18 21:56 Protonix - PO 20 mg BID [facility] Administration ASSESSMENT/PLAN: This is an 87 year old woman with a history of stage 4 CKD, chronic hypoxic respiratory failure, COPD, HTN, GERD, type 2 DM, chronic diastolic heart failure who presented to the ED with SOB, abdominal pain, nausea, vomiting. she has no complaints at this time and her breathing is at baseline. 1. ESRD - HD started on 03/05 and is to get one today - Will do outpatient HD at [facility] 2. Abdominal pain, nausea, vomiting, SOB secondary to ESRD,has improved, tolerated clear liquid will advance it to renal diet - 3. Anemia, likely secondary to CKD, has low Iron sat, will be repleted by nephrology 4. Type 2 DM - Continue Novolog sliding scale 5. HTN - Continue Norvasc, Toprol XL 6. GERD - Continue Protonix 7. Chronic hypoxic respiratory failure secondary to COPD - Continue oxygen to maintain saturation >90% 8. Chronic diastolic heart failure - Stable Visit type - Emergency Visit Emergency Visit: No - New Patient This patient is new to me today: Yes Date on this admission: 03/06/18 - Critical Care Critical Care patient: No - Discharge Referral Referred to [facility] No
[2018-03-06] MEDS: amLODIPine BESYLATE 10 MG TABLET (FP) PO SCH (17:47)
[2018-03-06] MEDS: PANTOPRAZOLE 20 MG TABLET (FP) PO SCH (17:47)
[2018-03-06 22:12] LABS: HBSAG SCREEN Negative (Negative); HEP A AB, IGM Negative (Negative); HEP B CORE AB, TOT Positive (Negative)
[2018-03-07] MEDS: HEPARIN NA (PORCINE) 5,000 UNITS/ML 1ML VIAL SQ SCH ×3 (06:01→21:39)
[2018-03-07] MEDS: INSULIN SLIDING SCALE (NOVOLOG) 1 VIAL SQ SCH ×4 (06:26→21:40)
--- NOTE | 2018-03-07 08:55 | PN ---
Progress Note, Physician History of Present Illness: no issues overnight - Current Medication List Current Medications: Active Medications Amlodipine Besylate (Norvasc -) 10 mg PO DAILY [facility] Last Admin: 03/06/18 17:47 Dose: 10 mg Heparin Sodium (Porcine) (Heparin -) 5,000 unit SQ TID [facility] Last Admin: 03/07/18 06:01 Dose: Not Given Sodium Chloride (Normal Saline -) 250 mls @ 3,000 mls/hr IV PRN PRN PRN Reason: Hypotension during Dialysis Stop: 03/07/18 14:33 Insulin Aspart (Novolog Vial Sliding Scale -) 1 vial SQ ACHS [facility]; Protocol Last Admin: 03/07/18 06:26 Dose: Not Given Metoprolol Succinate (Toprol Xl -) 50 mg PO DAILY [facility] Last Admin: 03/06/18 14:54 Dose: 50 mg Pantoprazole Sodium (Protonix -) 20 mg PO BID [facility] - Objective Vital Signs: Vital Signs Temperature 98 F 03/07/18 05:53 Pulse Rate 82 03/07/18 05:53 Respiratory Rate 18 03/07/18 05:53 Blood Pressure 172/74 H 03/07/18 05:53 O2 Sat by Pulse Oximetry (%) 98 03/06/18 21:00 Constitutional: Yes: Well Nourished, No Distress, Calm Eyes: Yes: WNL, Conjunctiva Clear, EOM Intact HENT: Yes: Atraumatic, Normocephalic Neck: Yes: WNL, Supple, Trachea Midline Cardiovascular: Yes: WNL, Regular Rate and Rhythm Respiratory: Yes: WNL, Regular, CTA Bilaterally Gastrointestinal: Yes: WNL, Normal Bowel Sounds, Soft ...Rectal Exam: Yes: Deferred Edema: LLE: Trace, RLE: Trace Labs: CBC, BMP 03/06/18 06:10 03/06/18 06:10 INR, PTT INR 0.90 (0.83-1.09) 03/04/18 17:36 Problem List - Problems (1) Dyspnea Code(s): R06.00 - DYSPNEA, UNSPECIFIED (2) ESRD (end stage renal disease) Code(s): N18.6 - END STAGE RENAL DISEASE (3) Epigastric abdominal pain Code(s): R10.13 - EPIGASTRIC PAIN (4) Esophagitis Code(s): K20.9 - ESOPHAGITIS, UNSPECIFIED (5) Gastritis Code(s): K29.70 - GASTRITIS, UNSPECIFIED, WITHOUT BLEEDING (6) COPD exacerbation Code(s): J44.1 - CHRONIC OBSTRUCTIVE PULMONARY DISEASE W (ACUTE) EXACERBATION (7) Diabetes Code(s): E11.9 - TYPE 2 DIABETES MELLITUS WITHOUT COMPLICATIONS (8) Diastolic CHF Code(s): I50.30 - UNSPECIFIED DIASTOLIC (CONGESTIVE) HEART FAILURE (9) Hypercholesterolemia Code(s): E78.00 - PURE HYPERCHOLESTEROLEMIA, UNSPECIFIED (10) Hypertension Code(s): I10 - ESSENTIAL (PRIMARY) HYPERTENSION Assessment/Plan This is an 87 year old woman with a history of stage 4 CKD, chronic hypoxic respiratory failure, COPD, HTN, GERD, type 2 DM, chronic diastolic heart failure who presented to the ED with SOB, abdominal pain, nausea, vomiting. 1. ESRD - HD started today - Will do outpatient HD at [facility] [place] 2. Abdominal pain, nausea, vomiting, SOB secondary to ESRD - Improved after HD - Start clear liquids and advance as tolerated 3. Anemia, likely secondary to CKD - Iron studies pending 4. Type 2 DM - Continue Novolog sliding scale 5. HTN - Continue amlodipine - c/w metoprolol succinate XL 6. GERD - Continue pantaprazole 7. Chronic hypoxic respiratory failure secondary to COPD - Continue oxygen to maintain saturation >90% 8. Chronic diastolic heart failure - Stable
[2018-03-07] MEDS: amLODIPine BESYLATE 10 MG TABLET (FP) PO SCH (11:58)
[2018-03-07] MEDS: PANTOPRAZOLE 20 MG TABLET (FP) PO SCH ×2 (11:59→21:39)
--- NOTE | 2018-03-07 22:12 | PN ---
Progress Note (short form) - Note Progress Note: problems 1. ESRD 2. HTN 3. HLD 4. COPD 5. DM 6. pos heb b core 7. abd pain 8. vomiting 9. anemia Current Medications Amlodipine Besylate (Norvasc -) 10 mg PO DAILY [facility] Last Admin: 03/07/18 11:58 Dose: 10 mg Heparin Sodium (Porcine) (Heparin -) 5,000 unit SQ TID [facility] Last Admin: 03/07/18 21:39 Dose: 5,000 unit Insulin Aspart (Novolog Vial Sliding Scale -) 1 vial SQ ACHS [facility]; Protocol Last Admin: 03/07/18 21:40 Dose: 2 units Metoprolol Succinate (Toprol Xl -) 50 mg PO DAILY [facility] Last Admin: 03/07/18 11:58 Dose: 50 mg Pantoprazole Sodium (Protonix -) 20 mg PO BID [facility] Last Admin: 03/07/18 21:39 Dose: 20 mg Last Vital Signs Temp Pulse Resp BP Pulse Ox 98.6 F 75 20 150/67 98 03/07/18 20:11 03/07/18 20:11 03/07/18 20:11 03/07/18 20:11 03/07/18 09:00 Lungs clear Heart reg Abd soft Ext no edema CBC, BMP 03/06/18 06:10 03/06/18 06:10 IMP- ESRD no sign of fluid overload Plan- HD on friday
[2018-03-08] MEDS: HEPARIN NA (PORCINE) 5,000 UNITS/ML 1ML VIAL SQ SCH ×3 (05:51→21:32)
[2018-03-08] MEDS: INSULIN SLIDING SCALE (NOVOLOG) 1 VIAL SQ SCH ×4 (06:01→21:32)
--- NOTE | 2018-03-08 08:15 | PN ---
Progress Note, Physician History of Present Illness: no issues overnight - Current Medication List Current Medications: Active Medications Amlodipine Besylate (Norvasc -) 10 mg PO DAILY [facility] Last Admin: 03/07/18 11:58 Dose: 10 mg Heparin Sodium (Porcine) (Heparin -) 5,000 unit SQ TID [facility] Last Admin: 03/08/18 05:51 Dose: 5,000 unit Insulin Aspart (Novolog Vial Sliding Scale -) 1 vial SQ ACHS [facility]; Protocol Last Admin: 03/08/18 06:01 Dose: Not Given Metoprolol Succinate (Toprol Xl -) 50 mg PO DAILY [facility] Last Admin: 03/07/18 11:58 Dose: 50 mg Pantoprazole Sodium (Protonix -) 20 mg PO BID [facility] Last Admin: 03/07/18 21:39 Dose: 20 mg - Objective Vital Signs: Vital Signs Temperature 98.6 F 03/07/18 20:11 Pulse Rate 77 03/08/18 04:00 Respiratory Rate 20 03/08/18 04:00 Blood Pressure 159/67 03/08/18 04:00 O2 Sat by Pulse Oximetry (%) 98 03/07/18 21:00 Constitutional: Yes: Well Nourished, No Distress, Calm Eyes: Yes: WNL, Conjunctiva Clear, EOM Intact HENT: Yes: WNL, Atraumatic, Normocephalic Neck: Yes: WNL, Supple, Trachea Midline Cardiovascular: Yes: WNL, Regular Rate and Rhythm, S1, S2 Respiratory: Yes: WNL, Regular, CTA Bilaterally Gastrointestinal: Yes: WNL, Normal Bowel Sounds, Soft Musculoskeletal: Yes: WNL Extremities: Yes: WNL Integumentary: Yes: WNL Neurological: Yes: WNL, Alert ...Motor Strength: WNL Psychiatric: Yes: WNL, Alert, Oriented (to herself) Labs: INR, PTT INR 0.90 (0.83-1.09) 03/04/18 17:36 Problem List - Problems (1) Dyspnea Code(s): R06.00 - DYSPNEA, UNSPECIFIED (2) ESRD (end stage renal disease) Code(s): N18.6 - END STAGE RENAL DISEASE (3) Epigastric abdominal pain Code(s): R10.13 - EPIGASTRIC PAIN (4) Esophagitis Code(s): K20.9 - ESOPHAGITIS, UNSPECIFIED (5) Gastritis Code(s): K29.70 - GASTRITIS, UNSPECIFIED, WITHOUT BLEEDING (6) COPD exacerbation Code(s): J44.1 - CHRONIC OBSTRUCTIVE PULMONARY DISEASE W (ACUTE) EXACERBATION (7) Diabetes Code(s): E11.9 - TYPE 2 DIABETES MELLITUS WITHOUT COMPLICATIONS (8) Diastolic CHF Code(s): I50.30 - UNSPECIFIED DIASTOLIC (CONGESTIVE) HEART FAILURE (9) Hypercholesterolemia Code(s): E78.00 - PURE HYPERCHOLESTEROLEMIA, UNSPECIFIED (10) Hypertension Code(s): I10 - ESSENTIAL (PRIMARY) HYPERTENSION Assessment/Plan This is an 87 year old woman with a history of stage 4 CKD, chronic hypoxic respiratory failure, COPD, HTN, GERD, type 2 DM, chronic diastolic heart failure who presented to the ED with SOB, abdominal pain, nausea, vomiting. 1. ESRD - HD started today - Will do outpatient HD at [facility] 2. Abdominal pain, nausea, vomiting, SOB secondary to ESRD - Improved after HD - Start clear liquids and advance as tolerated 3. Anemia, likely secondary to CKD - Iron studies pending 4. Type 2 DM - Continue Novolog sliding scale 5. HTN - Continue amlodipine - c/w metoprolol succinate XL 6. GERD - Continue pantaprazole 7. Chronic hypoxic respiratory failure secondary to COPD - Continue oxygen to maintain saturation >90% 8. Chronic diastolic heart failure - Stable
[2018-03-08] MEDS ORDERED: PT OWN MED DRAWER 7, Y5N ONE (11:24)
[2018-03-08] MEDS: amLODIPine BESYLATE 10 MG TABLET (FP) PO SCH (11:35)
[2018-03-08] MEDS: PANTOPRAZOLE 20 MG TABLET (FP) PO SCH ×2 (11:35→21:33)
[2018-03-08 12:32] LABS: BLOOD UREA NITROGEN 27 mg/dL (7-18); CHLORIDE 104 mmol/L (98-107); CO2 33 mmol/L (21-32); CREATININE 5.3 mg/dL (0.55-1.3); GLUCOSE,RANDOM 74 mg/dL (74-106); POTASSIUM 3.8 mmol/L (3.5-5.1); SODIUM 143 mmol/L (136-145)
[2018-03-08 12:33] LABS: ALK PHOS 56 U/L (45-117); ANION GAP 6 MMOL/L (8-16); BILIRUBIN,TOTAL 0.8 mg/dL (0.2-1); CALCIUM 8.2 mg/dL (8.5-10.1); MAGNESIUM 1.7 mg/dL (1.8-2.4); SGOT/AST 16 U/L (15-37); SGPT/ALT 16 U/L (13-61); TOT PROT 5.5 g/dl (6.4-8.2)
[2018-03-08 14:00] LABS: BASO % 0.8 % (0-2.0); EOS % 1.8 % (0-4.5); HEMATOCRIT 25.8 % (32.4-45.2); HEMOGLOBIN 8.1 GM/dL (10.7-15.3); LYMPH % 37.7 % (8-40); MCH 25.5 pg (25.7-33.7); MCHC 31.3 g/dl (32.0-36.0); MEAN CELL VOLUME 81.5 fl (80-96); MEAN PLT VOLUME 9.2 fl (7.5-11.1); MONO % 9.3 % (3.8-10.2); NEUT % 50.4 % (42.8-82.8); PLATELET COUNT 121 K/MM3 (134-434); RBC 3.16 M/mm3 (3.60-5.2); RDW 17.1 % (11.6-15.6)
[2018-03-08] MEDS ORDERED: INSULIN (NOVOLOG) ASPART 100 UNITS/ML 10ML VIAL ONE (20:26)
--- NOTE | 2018-03-08 21:49 | PN ---
Progress Note (short form) - Note Progress Note: problems 1. ESRD 2. HTN 3. HLD 4. COPD 5. DM 6. pos heb b core 7. abd pain 8. vomiting 9. anemia Current Medications Amlodipine Besylate (Norvasc -) 10 mg PO DAILY [facility] Last Admin: 03/08/18 11:35 Dose: 10 mg Heparin Sodium (Porcine) (Heparin -) 5,000 unit SQ TID [facility] Last Admin: 03/08/18 21:32 Dose: 5,000 unit Sodium Chloride (Normal Saline -) 250 mls @ 3,000 mls/hr IV PRN PRN PRN Reason: Hypotension during Dialysis Stop: 03/09/18 21:44 Insulin Aspart (Novolog Vial Sliding Scale -) 1 vial SQ ACHS [facility]; Protocol Last Admin: 03/08/18 21:32 Dose: Not Given Metoprolol Succinate (Toprol Xl -) 50 mg PO DAILY [facility] Last Admin: 03/08/18 11:35 Dose: 50 mg Pantoprazole Sodium (Protonix -) 20 mg PO BID [facility] Last Admin: 03/08/18 21:33 Dose: 20 mg Last Vital Signs Temp Pulse Resp BP Pulse Ox 98.2 F 71 18 152/61 98 03/08/18 18:00 03/08/18 18:00 03/08/18 18:00 03/08/18 18:00 03/08/18 09:00 Lungs clear Heart reg Abd soft Ext no edema CBC, BMP 03/08/18 06:35 03/08/18 06:35 IMP- ESRD no sign of fluid overload Plan- HD tomorrow increase duration of tx (tolerated 2 hours well) increase blood flow
[2018-03-09] MEDS: INSULIN SLIDING SCALE (NOVOLOG) 1 VIAL SQ SCH ×4 (06:05→21:41)
[2018-03-09] MEDS: HEPARIN NA (PORCINE) 5,000 UNITS/ML 1ML VIAL SQ SCH ×3 (06:13→21:41)
[2018-03-09] MEDS: PANTOPRAZOLE 20 MG TABLET (FP) PO SCH ×2 (10:21→21:41)
--- NOTE | 2018-03-09 13:13 | PN ---
Progress Note, Physician History of Present Illness: Pt seen and examined at bedside. She appears comfortable. Appetite is improved. - Current Medication List Current Medications: Active Medications Amlodipine Besylate (Norvasc -) 10 mg PO DAILY [facility] Last Admin: 03/08/18 11:35 Dose: 10 mg Heparin Sodium (Porcine) (Heparin -) 5,000 unit SQ TID [facility] Last Admin: 03/09/18 06:13 Dose: 5,000 unit Sodium Chloride (Normal Saline -) 250 mls @ 3,000 mls/hr IV PRN PRN PRN Reason: Hypotension during Dialysis Stop: 03/09/18 21:44 Insulin Aspart (Novolog Vial Sliding Scale -) 1 vial SQ ACHS [facility]; Protocol Last Admin: 03/09/18 12:16 Dose: Not Given Metoprolol Succinate (Toprol Xl -) 50 mg PO DAILY [facility] Last Admin: 03/09/18 10:19 Dose: 50 mg Pantoprazole Sodium (Protonix -) 20 mg PO BID [facility] Last Admin: 03/09/18 10:21 Dose: 20 mg - Objective Vital Signs: Vital Signs Temperature 98.2 F 03/09/18 06:25 Pulse Rate 75 03/09/18 06:25 Respiratory Rate 18 03/09/18 06:25 Blood Pressure 168/83 03/09/18 06:25 O2 Sat by Pulse Oximetry (%) 99 03/08/18 21:00 Constitutional: Yes: Calm Eyes: Yes: Conjunctiva Clear Cardiovascular: Yes: S1, S2 Respiratory: Yes: CTA Bilaterally Gastrointestinal: Yes: Normal Bowel Sounds, Soft Genitourinary: Yes: WNL Edema: Yes Edema: LLE: 1+, RLE: 1+ Neurological: Yes: Oriented Psychiatric: Yes: Oriented Labs: CBC, BMP 03/08/18 06:35 03/08/18 06:35 INR, PTT INR 0.90 (0.83-1.09) 03/04/18 17:36 Problem List - Problems (1) ESRD (end stage renal disease) Code(s): N18.6 - END STAGE RENAL DISEASE (2) Dyspnea Code(s): R06.00 - DYSPNEA, UNSPECIFIED Assessment/Plan Current Medications Generic Name Dose Route Start Last Admin Trade Name Freq PRN Reason Stop Dose Admin Amlodipine Besylate 10 mg 03/05/18 10:00 03/08/18 11:35 Norvasc - PO 10 mg DAILY [facility] Administration Heparin Sodium (Porcine) 5,000 unit 03/05/18 06:00 03/09/18 06:13 Heparin - SQ 5,000 unit TID [facility] Administration Sodium Chloride 250 mls @ 3,000 mls/hr 03/08/18 21:44 Normal Saline - IV 03/09/18 21:44 PRN PRN Hypotension during Dialysis Insulin Aspart 1 vial 03/04/18 22:00 03/09/18 12:16 Novolog Vial Sliding Scale - SQ Not Given ACHS [facility] Protocol Metoprolol Succinate 50 mg 03/05/18 10:00 03/09/18 10:19 Toprol Xl - PO 50 mg DAILY [facility] Administration Pantoprazole Sodium 20 mg 03/07/18 10:00 03/09/18 10:21 Protonix - PO 20 mg BID [facility] Administration Impression 1. ESRD 2. HTN 3. HLD 4. COPD 5. DM 6. pos heb b core 7. abd pain 8. vomiting 9. anemia Plan - HD today - pending placement for HD - epogen for anemia - appetite is improving - renal diet - will UF volume today - can give lasix on non HD days if needed - will follow Dr Reis
--- NOTE | 2018-03-09 13:29 | PN ---
Physical Exam: SUBJECTIVE: Patient seen and examined Feels better. No acute distress. Comfortable. OBJECTIVE: Vital Signs Period Temp Pulse Resp BP Sys/Betancourt Pulse Ox Last 24 Hr 98.2 F-98.4 F 69-77 18-24 133-168/47-83 99 GENERAL: The patient is awake, alert, and fully oriented, in no acute distress. HEAD: Normal with no signs of trauma. EYES: PERRL, extraocular movements intact, sclera anicteric, conjunctiva clear. No ptosis. ENT: Ears normal, nares patent, oropharynx clear without exudates, moist mucous membranes. NECK: Trachea midline, full range of motion, supple. LUNGS: Breath sounds equal, clear to auscultation bilaterally, no wheezes, no crackles, no accessory muscle use. HEART: Regular rate and rhythm, S1, S2 without murmur, rub or gallop. ABDOMEN: Soft, nontender, nondistended, normoactive bowel sounds, no guarding, no rebound, no hepatosplenomegaly, no masses. EXTREMITIES: 2+ pulses, warm, LUE AVF with mild edema. NEUROLOGICAL: Cranial nerves II through XII grossly intact. Normal speech, gait not observed. PSYCH: Normal mood, normal affect. SKIN: Warm, dry, normal turgor, no rashes or lesions noted Laboratory Results - last 24 hr 03/08/18 03/08/18 03/08/18 06:35 17:36 21:30 WBC 4.0 RBC 3.16 L Hgb 8.1 L Hct 25.8 L MCV 81.5 MCH 25.5 L MCHC 31.3 L RDW 17.1 H Plt Count 121 L D MPV 9.2 Absolute Neuts (auto) 2.0 Neutrophils % 50.4 Lymphocytes % 37.7 D Monocytes % 9.3 Eosinophils % 1.8 Basophils % 0.8 Nucleated RBC % 0 POC Glucometer 124 119 03/09/18 03/09/18 05:52 12:01 WBC RBC Hgb Hct MCV MCH MCHC RDW Plt Count MPV Absolute Neuts (auto) Neutrophils % Lymphocytes % Monocytes % Eosinophils % Basophils % Nucleated RBC % POC Glucometer 94 104 Active Medications Generic Name Dose Route Start Last Admin Trade Name Freq PRN Reason Stop Dose Admin Amlodipine Besylate 10 mg 03/05/18 10:00 03/08/18 11:35 Norvasc - PO 10 mg DAILY [facility] Administration Epoetin Nnamdi 7,000 unit 03/09/18 13:13 Procrit - IVPUSH 03/09/18 13:14 ONCE ONE Heparin Sodium (Porcine) 5,000 unit 03/05/18 06:00 03/09/18 06:13 Heparin - SQ 5,000 unit TID [facility] Administration Sodium Chloride 250 mls @ 3,000 mls/hr 03/08/18 21:44 Normal Saline - IV 03/09/18 21:44 PRN PRN Hypotension during Dialysis Insulin Aspart 1 vial 03/04/18 22:00 03/09/18 12:16 Novolog Vial Sliding Scale - SQ Not Given ACHS [facility] Protocol Metoprolol Succinate 50 mg 03/05/18 10:00 03/09/18 10:19 Toprol Xl - PO 50 mg DAILY [facility] Administration Pantoprazole Sodium 20 mg 03/07/18 10:00 03/09/18 10:21 Protonix - PO 20 mg BID [facility] Administration ASSESSMENT/PLAN: 87 y/o F, Primarily creole speaking, with PMHx of Stage 4 CKD, COPD (on 2L Home O2), HTN, GERD, DM, CHF presents from Dr. Reis's office to begin HD. Patient is primarily creole speaking, thus most of the history was provided by the Daughter, Heather at bedside. Patients AV Fistula was placed in November [address] Gaming; Patient has not had HD in the past. Patient was recently discharged from [facility] on 02/15 after completing a 5 day course of ABx for PNA. # ESRD on HD now. Awaiting HD placement. # HTN > Uncontrolled. Will adjust BP meds accordingly. # Chronic Respiratory failure 2/2 COPD. On home . # GERD/DM/CHF >> Clinically stable. C/W current medical mgmt. Visit type - Emergency Visit Emergency Visit: Yes ED Registration Date: 03/04/18 Care time: The patient presented to the Emergency Department on the above date and was hospitalized for further evaluation of their emergent condition. - New Patient This patient is new to me today: Yes Date on this admission: 03/09/18 - Critical Care Critical Care patient: No - Discharge Referral Referred to [facility] No
[2018-03-09] MEDS ORDERED: SODIUM CHLORIDE 250 ML IV PRN (13:39)
[2018-03-09] MEDS: amLODIPine BESYLATE 10 MG TABLET (FP) PO SCH (13:47)
[2018-03-09] MEDS ORDERED: EPOETIN ALFA 10,000 UNIT/1 ML VIAL IVPUSH ONE (14:15)
[2018-03-09 15:42] VITALS: BMI 22.1
[2018-03-10] MEDS: INSULIN SLIDING SCALE (NOVOLOG) 1 VIAL SQ SCH ×4 (06:45→21:39)
[2018-03-10] MEDS: HEPARIN NA (PORCINE) 5,000 UNITS/ML 1ML VIAL SQ SCH ×3 (06:45→21:39)
[2018-03-10] MEDS: amLODIPine BESYLATE 10 MG TABLET (FP) PO SCH (09:25)
[2018-03-10] MEDS: PANTOPRAZOLE 20 MG TABLET (FP) PO SCH ×2 (09:25→21:38)
--- NOTE | 2018-03-10 11:29 | PN ---
Physical Exam: SUBJECTIVE: Patient seen and examined OBJECTIVE: bp elevated, start hydralazine Vital Signs Period Temp Pulse Resp BP Sys/Betancourt Pulse Ox Last 24 Hr 97.9 F-98.8 F 72-88 18-20 148-202/68-101 100 GENERAL: The patient is awake, alert, and fully oriented, in no acute distress - speaks creole, daughter at bedside. HEAD: Normal with no signs of trauma. EYES: PERRL, extraocular movements intact, sclera anicteric, conjunctiva clear. No ptosis. ENT: Ears normal, nares patent, oropharynx clear without exudates, moist mucous membranes. NECK: Trachea midline, full range of motion, supple. LUNGS: Breath sounds equal, clear to auscultation bilaterally HEART: Regular rate and rhythm, S1, S2 without murmur, rub or gallop. ABDOMEN: Soft, nontender, nondistended, normoactive bowel sounds, no guarding, no rebound, no hepatosplenomegaly, no masses. EXTREMITIES:+ bruit thrill on left upper arm NEUROLOGICAL: Normal speech, gait not observed. PSYCH: Normal mood, normal affect. Laboratory Results - last 24 hr 03/09/18 03/09/18 03/09/18 12:01 17:33 21:08 POC Glucometer 104 148 113 03/10/18 06:27 POC Glucometer 93 Active Medications Generic Name Dose Route Start Last Admin Trade Name Nileq PRN Reason Stop Dose Admin Amlodipine Besylate 10 mg 03/05/18 10:00 03/10/18 09:25 Norvasc - PO 10 mg DAILY [facility] Administration Heparin Sodium (Porcine) 5,000 unit 03/05/18 06:00 03/10/18 06:45 Heparin - SQ Not Given TID [facility] Hydralazine HCl 10 mg 03/10/18 11:30 Apresoline - PO BID [facility] Insulin Aspart 1 vial 03/04/18 22:00 03/10/18 11:23 Novolog Vial Sliding Scale - SQ 4 units ACHS [facility] Administration Protocol Metoprolol Succinate 100 mg 03/10/18 07:49 03/10/18 09:25 Toprol Xl - PO 100 mg DAILY [facility] Administration Pantoprazole Sodium 20 mg 03/07/18 10:00 03/10/18 09:25 Protonix - PO 20 mg BID [facility] Administration ASSESSMENT/PLAN: Patient is an 87 year old female with a significant past medical history of stage 4 CKD, COPD (on 2L Home O2), HTN, GERD, DM, CHF presents from Dr. Reis 's office to begin HD. Patient is primarily creole speaking, thus most of the history was provided by the Daughter, Heather at bedside. Patients AV Fistula was placed in November [address] Gaming; Patient has not had HD in the past. Patient was recently discharged from [facility] on 02/15/18 after completing a 5 day course of ABx for PNA. Renal ESRD on dialysis via left upper arm fistula Awaiting HD placement for dialysis tomorrow. had dialysis yesterday. Cardiology: Hypertension. uncontrolled On metoprolol succ 100mg daily. add hydralazine low dose and monitor Pulm: Chronic Respiratory failure 2/2 COPD. On home 02. at baseline. fen no ivf, has esrd monitor electrolytes renal diet full code heparin tid Visit type - Emergency Visit Emergency Visit: Yes ED Registration Date: 03/04/18 Care time: The patient presented to the Emergency Department on the above date and was hospitalized for further evaluation of their emergent condition. - New Patient This patient is new to me today: Yes Date on this admission: 03/10/18 - Critical Care Critical Care patient: No - Discharge Referral Referred to [facility] No
[2018-03-10] MEDS: hydrALAZINE HCL 10 MG TABLET PO SCH ×2 (12:00→21:38)
[2018-03-10 12:15] LABS: EOS % 2.4 % (0-4.5); HEMATOCRIT 24.5 % (32.4-45.2); HEMOGLOBIN 8.1 GM/dL (10.7-15.3); LYMPH % 20.2 % (8-40); MCH 26.8 pg (25.7-33.7); MCHC 33.2 g/dl (32.0-36.0); MEAN CELL VOLUME 80.6 fl (80-96); MEAN PLT VOLUME 8.1 fl (7.5-11.1); MONO % 8.7 % (3.8-10.2); NEUT % 67.7 % (42.8-82.8); PLATELET COUNT 151 K/MM3 (134-434); RBC 3.03 M/mm3 (3.60-5.2); RDW 17.2 % (11.6-15.6); WHITE BLOOD COUNT 3.9 K/mm3 (4.0-10.0)
[2018-03-10 12:55] LABS: ALBUMIN 3.1 g/dl (3.4-5.0); ALK PHOS 55 U/L (45-117); ANION GAP 3 MMOL/L (8-16); BILIRUBIN,TOTAL 0.8 mg/dL (0.2-1); BLOOD UREA NITROGEN 18 mg/dL (7-18); CALCIUM 8.5 mg/dL (8.5-10.1); CHLORIDE 101 mmol/L (98-107); CO2 34 mmol/L (21-32); CREATININE 4.6 mg/dL (0.55-1.3); GLUCOSE,RANDOM 206 mg/dL (74-106); POTASSIUM 3.6 mmol/L (3.5-5.1); SGOT/AST 9 U/L (15-37); SGPT/ALT 16 U/L (13-61); SODIUM 139 mmol/L (136-145)
--- NOTE | 2018-03-10 15:04 | PN ---
Progress Note, Physician History of Present Illness: Pt seen and examined at bedside. She is awake and alert. She denies shortness of breath. - Current Medication List Current Medications: Active Medications Amlodipine Besylate (Norvasc -) 10 mg PO DAILY [facility] Last Admin: 03/10/18 09:25 Dose: 10 mg Heparin Sodium (Porcine) (Heparin -) 5,000 unit SQ TID [facility] Last Admin: 03/10/18 13:38 Dose: 5,000 unit Hydralazine HCl (Apresoline -) 10 mg PO BID [facility] Last Admin: 03/10/18 12:00 Dose: 10 mg Insulin Aspart (Novolog Vial Sliding Scale -) 1 vial SQ ACHS [facility]; Protocol Last Admin: 03/10/18 11:23 Dose: 4 units Metoprolol Succinate (Toprol Xl -) 100 mg PO DAILY [facility] Last Admin: 03/10/18 09:25 Dose: 100 mg Pantoprazole Sodium (Protonix -) 20 mg PO BID [facility] Last Admin: 03/10/18 09:25 Dose: 20 mg - Objective Vital Signs: Vital Signs Temperature 98.4 F 03/10/18 09:00 Pulse Rate 72 03/10/18 09:00 Respiratory Rate 18 03/10/18 09:00 Blood Pressure 185/70 H 03/10/18 09:00 O2 Sat by Pulse Oximetry (%) 100 03/10/18 09:00 Constitutional: Yes: Calm Eyes: Yes: Conjunctiva Clear HENT: Yes: Atraumatic Cardiovascular: Yes: S1, S2 Respiratory: Yes: CTA Bilaterally Gastrointestinal: Yes: Normal Bowel Sounds, Soft Genitourinary: Yes: WNL Edema: Yes Edema: LLE: Trace, RLE: Trace Neurological: Yes: Oriented Psychiatric: Yes: Oriented Labs: CBC, BMP 03/10/18 11:55 03/10/18 11:55 INR, PTT INR 0.90 (0.83-1.09) 03/04/18 17:36 Problem List - Problems (1) ESRD (end stage renal disease) Code(s): N18.6 - END STAGE RENAL DISEASE (2) Dyspnea Code(s): R06.00 - DYSPNEA, UNSPECIFIED Assessment/Plan Current Medications Generic Name Dose Route Start Last Admin Trade Name Freq PRN Reason Stop Dose Admin Amlodipine Besylate 10 mg 03/05/18 10:00 03/10/18 09:25 Norvasc - PO 10 mg DAILY [facility] Administration Heparin Sodium (Porcine) 5,000 unit 03/05/18 06:00 03/10/18 13:38 Heparin - SQ 5,000 unit TID [facility] Administration Hydralazine HCl 10 mg 03/10/18 11:45 03/10/18 12:00 Apresoline - PO 10 mg BID [facility] Administration Insulin Aspart 1 vial 03/04/18 22:00 03/10/18 11:23 Novolog Vial Sliding Scale - SQ 4 units ACHS [facility] Administration Protocol Metoprolol Succinate 100 mg 03/10/18 07:49 03/10/18 09:25 Toprol Xl - PO 100 mg DAILY [facility] Administration Pantoprazole Sodium 20 mg 03/07/18 10:00 03/10/18 09:25 Protonix - PO 20 mg BID [facility] Administration Impression 1. ESRD 2. HTN 3. HLD 4. COPD 5. DM 6. pos heb b core 7. abd pain 8. vomiting 9. anemia Plan - increase hydralazine - repeat bmp after meds - metoprolol increased yesterday - she has HD set up for tomorrow - epogen for anemia - appetite is improving - renal diet - will follow Dr Reis
[2018-03-10] MEDS ORDERED: INSULIN (NOVOLOG) ASPART 100 UNITS/ML 10ML VIAL ONE (21:07)
[2018-03-11] MEDS: HEPARIN NA (PORCINE) 5,000 UNITS/ML 1ML VIAL SQ SCH ×2 (06:28→14:34)
[2018-03-11] MEDS: INSULIN SLIDING SCALE (NOVOLOG) 1 VIAL SQ SCH ×3 (06:28→17:34)
[2018-03-11] MEDS: amLODIPine BESYLATE 10 MG TABLET (FP) PO SCH (10:49)
[2018-03-11] MEDS: PANTOPRAZOLE 20 MG TABLET (FP) PO SCH (10:49)
[2018-03-11] MEDS: hydrALAZINE HCL 10 MG TABLET PO SCH (10:49)
--- NOTE | 2018-03-11 11:41 | PN ---
Physical Exam: SUBJECTIVE: Patient seen and examined OBJECTIVE: The patient requires a light weight wheel chair in order to complete ADLs within the home. Patient can not self propel in a standard wheelchair due to her COPD/CHF and past CVA. She can self propel in a light weight chair. Vital Signs Period Temp Pulse Resp BP Sys/Betancourt Pulse Ox Last 24 Hr 97.9 F-99.2 F 68-82 18-18 138-160/64-88 100 GENERAL: The patient is awake, alert, and fully oriented, in no acute distress. HEAD: Normal with no signs of trauma. EYES: PERRL, extraocular movements intact, sclera anicteric, conjunctiva clear. No ptosis. ENT: Ears normal, nares patent, oropharynx clear without exudates, moist mucous membranes. NECK: Trachea midline, full range of motion, supple. LUNGS: Breath sounds equal, clear to auscultation bilaterally, no wheezes, no crackles, no accessory muscle use. HEART: Regular rate and rhythm, S1, S2 without murmur, rub or gallop. ABDOMEN: Soft, nontender, nondistended, normoactive bowel sounds, no guarding, no rebound, no hepatosplenomegaly, no masses. EXTREMITIES: 2+ pulses, warm, well-perfused, no edema. NEUROLOGICAL: Cranial nerves II through XII grossly intact. Normal speech, gait not observed. PSYCH: Normal mood, normal affect. SKIN: Warm, dry, normal turgor, no rashes or lesions noted Laboratory Results - last 24 hr 03/10/18 03/10/18 03/10/18 11:19 11:55 11:55 WBC 3.9 L RBC 3.03 L Hgb 8.1 L Hct 24.5 L MCV 80.6 MCH 26.8 MCHC 33.2 RDW 17.2 H Plt Count 151 D MPV 8.1 D Absolute Neuts (auto) 2.7 Neutrophils % 67.7 D Lymphocytes % 20.2 D Monocytes % 8.7 Eosinophils % 2.4 Basophils % 1.0 Nucleated RBC % 0 Sodium 139 Potassium 3.6 Chloride 101 Carbon Dioxide 34 H Anion Gap 3 L BUN 18 Creatinine 4.6 H Creat Clearance w eGFR 9.01 POC Glucometer 239 Random Glucose 206 H Calcium 8.5 Total Bilirubin 0.8 AST 9 L ALT 16 Alkaline Phosphatase 55 Total Protein 6.0 L Albumin 3.1 L 03/10/18 03/10/18 03/11/18 16:21 21:31 05:49 WBC RBC Hgb Hct MCV MCH MCHC RDW Plt Count MPV Absolute Neuts (auto) Neutrophils % Lymphocytes % Monocytes % Eosinophils % Basophils % Nucleated RBC % Sodium Potassium Chloride Carbon Dioxide Anion Gap BUN Creatinine Creat Clearance w eGFR POC Glucometer 95 141 87 Random Glucose Calcium Total Bilirubin AST ALT Alkaline Phosphatase Total Protein Albumin Active Medications Generic Name Dose Route Start Last Admin Trade Name Nileq PRN Reason Stop Dose Admin Amlodipine Besylate 10 mg 03/05/18 10:00 03/11/18 10:49 Norvasc - PO 10 mg DAILY [facility] Administration Heparin Sodium (Porcine) 5,000 unit 03/05/18 06:00 03/11/18 06:28 Heparin - SQ 5,000 unit TID [facility] Administration Hydralazine HCl 10 mg 03/10/18 11:45 03/11/18 10:49 Apresoline - PO 10 mg BID [facility] Administration Insulin Aspart 1 vial 03/04/18 22:00 03/11/18 06:28 Novolog Vial Sliding Scale - SQ Not Given ACHS [facility] Protocol Metoprolol Succinate 100 mg 03/10/18 07:49 03/11/18 10:49 Toprol Xl - PO 100 mg DAILY [facility] Administration Pantoprazole Sodium 20 mg 03/07/18 10:00 03/11/18 10:49 Protonix - PO 20 mg BID [facility] Administration ASSESSMENT/PLAN:
[2018-03-11] MEDS ORDERED: EPOETIN ALFA 10,000 UNIT/1 ML VIAL IVPUSH ONE (12:11)
--- NOTE | 2018-03-11 12:13 | PN ---
Progress Note, Physician History of Present Illness: Pt seen and examined at bedside. She is tolerating HD. She is going home today. She has HD set up as outpt. - Current Medication List Current Medications: Active Medications Amlodipine Besylate (Norvasc -) 10 mg PO DAILY [facility] Last Admin: 03/11/18 10:49 Dose: 10 mg Heparin Sodium (Porcine) (Heparin -) 5,000 unit SQ TID [facility] Last Admin: 03/11/18 06:28 Dose: 5,000 unit Hydralazine HCl (Apresoline -) 10 mg PO BID [facility] Last Admin: 03/11/18 10:49 Dose: 10 mg Insulin Aspart (Novolog Vial Sliding Scale -) 1 vial SQ ACHS [facility]; Protocol Last Admin: 03/11/18 06:28 Dose: Not Given Metoprolol Succinate (Toprol Xl -) 100 mg PO DAILY [facility] Last Admin: 03/11/18 10:49 Dose: 100 mg Pantoprazole Sodium (Protonix -) 20 mg PO BID [facility] Last Admin: 03/11/18 10:49 Dose: 20 mg - Objective Vital Signs: Vital Signs Temperature 98.3 F 03/11/18 06:00 Pulse Rate 82 03/11/18 06:00 Respiratory Rate 18 03/11/18 06:00 Blood Pressure 138/68 03/11/18 06:00 O2 Sat by Pulse Oximetry (%) 100 03/10/18 21:00 Constitutional: Yes: Calm Eyes: Yes: Conjunctiva Clear HENT: Yes: Atraumatic Neck: Yes: Supple Cardiovascular: Yes: S1, S2 Respiratory: Yes: On Nasal O2 Gastrointestinal: Yes: Soft Genitourinary: Yes: WNL Musculoskeletal: Yes: WNL Edema: No Neurological: Yes: Oriented Labs: CBC, BMP 03/10/18 11:55 03/10/18 11:55 INR, PTT INR 0.90 (0.83-1.09) 03/04/18 17:36 Problem List - Problems (1) ESRD (end stage renal disease) Code(s): N18.6 - END STAGE RENAL DISEASE (2) Dyspnea Code(s): R06.00 - DYSPNEA, UNSPECIFIED Assessment/Plan Current Medications Generic Name Dose Route Start Last Admin Trade Name Freq PRN Reason Stop Dose Admin Amlodipine Besylate 10 mg 03/05/18 10:00 03/11/18 10:49 Norvasc - PO 10 mg DAILY [facility] Administration Epoetin Nnamdi 10,000 unit 03/11/18 12:11 Procrit - IVPUSH 03/11/18 12:12 ONCE ONE Heparin Sodium (Porcine) 5,000 unit 03/05/18 06:00 03/11/18 06:28 Heparin - SQ 5,000 unit TID [facility] Administration Hydralazine HCl 10 mg 03/10/18 11:45 03/11/18 10:49 Apresoline - PO 10 mg BID [facility] Administration Insulin Aspart 1 vial 03/04/18 22:00 03/11/18 06:28 Novolog Vial Sliding Scale - SQ Not Given ACHS [facility] Protocol Metoprolol Succinate 100 mg 03/10/18 07:49 03/11/18 10:49 Toprol Xl - PO 100 mg DAILY [facility] Administration Pantoprazole Sodium 20 mg 03/07/18 10:00 03/11/18 10:49 Protonix - PO 20 mg BID [facility] Administration Impression 1. ESRD 2. HTN 3. HLD 4. COPD 5. DM 6. pos heb b core 7. abd pain 8. vomiting 9. anemia Plan - bp is improved - HD today - she has HD set up as outpt - epogen for anemia - appetite is improving - renal diet - will follow Dr Reis
--- NOTE | 2018-03-11 12:33 | DS ---
Physical Exam: SUBJECTIVE: Patient seen and examined at the bedside. feels well, at dialysis. dialysis scheduled outpatient at [facility] on a MWF schedule at 11am OBJECTIVE: Patient requires a light weight wheelchair in order to complete ADLs within the home. Patient cannot self propel in a standard wheelchair due to her COPD, CHF and past CVA. Patient can self propel with ligh weight wheelchair. Vital Signs Period Temp Pulse Resp BP Sys/Betancourt Pulse Ox Last 24 Hr 97.9 F-99.2 F 68-82 18-18 138-160/64-88 100 PHYSICAL EXAM GENERAL: The patient is awake, alert, and fully oriented, in no acute distress - speaks creole, daughter at bedside. HEAD: Normal with no signs of trauma. EYES: PERRL, extraocular movements intact, sclera anicteric, conjunctiva clear. No ptosis. ENT: Ears normal, nares patent, oropharynx clear without exudates, moist mucous membranes. NECK: Trachea midline, full range of motion, supple. LUNGS: Breath sounds equal, clear to auscultation bilaterally HEART: Regular rate and rhythm, S1, S2 without murmur, rub or gallop. ABDOMEN: Soft, nontender, nondistended, normoactive bowel sounds, no guarding, no rebound, no hepatosplenomegaly, no masses. EXTREMITIES:+ bruit thrill on left upper arm NEUROLOGICAL: Normal speech, gait not observed. PSYCH: Normal mood, normal affect. LABS Laboratory Results - last 24 hr 03/10/18 03/10/18 03/10/18 11:55 16:21 21:31 Sodium 139 Potassium 3.6 Chloride 101 Carbon Dioxide 34 H Anion Gap 3 L BUN 18 Creatinine 4.6 H Creat Clearance w eGFR 9.01 POC Glucometer 95 141 Random Glucose 206 H Calcium 8.5 Total Bilirubin 0.8 AST 9 L ALT 16 Alkaline Phosphatase 55 Total Protein 6.0 L Albumin 3.1 L 03/11/18 05:49 Sodium Potassium Chloride Carbon Dioxide Anion Gap BUN Creatinine Creat Clearance w eGFR POC Glucometer 87 Random Glucose Calcium Total Bilirubin AST ALT Alkaline Phosphatase Total Protein Albumin HOSPITAL COURSE: Patient is an 87 year old female with a significant past medical history of stage 4 CKD, COPD (on 2L Home O2), HTN, GERD, DM, CHF presents from Dr. Reis 's office to begin HD. Patient is primarily creole speaking, thus most of the history was provided by the Daughter, Heather at bedside. Patients AV Fistula was placed in November [address] Gaming; Patient has not had HD in the past. Patient was recently discharged from [facility] on 02/15/18 after completing a 5 day course of ABx for pneumonia. Renal ESRD on dialysis via left upper arm fistula Patient to continue dialysis at [facility] on a MWF schedule. She had dialysis today prior to discharge. next dialysis on Friday at 11am Cardiology: Hypertension. uncontrolled On metoprolol succ 100mg daily. added hydralazine low dose and monitor BP monitoring outpatient. Pulm: Chronic Respiratory failure 2/2 COPD. On home 02. at baseline. Patient is being discharged today to her home. She will receive dialysis via her left arm fistula at [facility] Dialysis center on MWF at 11a.m. Date of Admission:03/04/18 Date of Discharge: 03/11/18 Minutes to complete discharge: 60 Discharge Summary Reason For Visit: SOB/DIALYSIS PATIENT Current Active Problems Dyspnea (Acute) ESRD (end stage renal disease) (Acute) Condition: Improved - Instructions Diet, Activity, Other Instructions: Mrs Crouch: You were admitted for shortness of breath and we have started dialysis. Please continue dialysis as an outpatient as we have set up for you. Here are our recommendations #ESRD on dialysis via left upper arm fistula. continue dialysis as an outpatient. Dialysis scheduled outpatient at [facility] on a MWF schedule at 11am Please protect your left arm from any heavy weights or needle sticks. Your blood pressure should be done on your right arm only #High blood pressure Your blood pressures have been high. We started you on metoprolol 100mg daily, Amlodopine 10mg daily and Hydralazine 10mg twice per day. These medications may need to be adjusted if your blood pressure remains high. #Pulmonary: continue your home oxygen therapy Please call me with any questions you may have. Thank you [facility] [phone] Referrals: Reid Marrufo [Primary Care Provider] - Zelda Reis MD [Staff Physician] - 1 Week Disposition: HOME - Home Medications Comprehensive Discharge Medication List: Ambulatory Orders Amlodipine Besylate [Norvasc -] 10 mg PO DAILY 05/03/17 Calcitriol [Rocaltrol] 0.25 mcg PO TID 10/09/17 Esomeprazole Magnesium [Nexium 24Hr] 20 mg PO BID 02/11/18 Metoprolol Succinate [Toprol XL -] 50 mg PO DAILY #30 tab.sr.24h 02/16/18 Rosuvastatin [Crestor -] 20 mg PO HS tablet 02/16/18 Sevelamer Carbonate [Renvela -] 800 mg PO TIDCM tab 02/16/18 Insulin Lispro [Humalog] 100 unit SQ ASDIR 03/04/18 Levalbuterol Tartrate [Xopenex Hfa] 15 gm IH PRN PRN 03/04/18 Pregabalin [Lyrica -] 75 mg PO DAILY 03/04/18 This patient is new to me today: No Emergency Visit: Yes ED Registration Date: 03/04/18 Care time: The patient presented to the Emergency Department on the above date and was hospitalized for further evaluation of their emergent condition. Critical Care patient: No - Discharge Referral Referred to [facility] No
[2018-03-11 13:41] VITALS: TEMP 98.2
[2018-03-11 15:12] VITALS: BP 150/62; PULSE 74
== END 2018-03-11 17:45 | disposition home or self-care (01) | DRG 291 ==
LOC: JER 16:30 → JERBED 19:52 → OBSVTOIN 20:55 → J5S 03-05 02:55
PROVIDERS: ADMIT Internal Medicine; ATTEND Nurse Practitioner Family
PROC: 5A1D70Z Performance of Urinary Filtration, Intermittent, Less than 6 Hours Per Day (ICD-10-PCS; principal; 2018-03-06)
PROC: 5A1D70Z Performance of Urinary Filtration, Intermittent, Less than 6 Hours Per Day (ICD-10-PCS; 2018-03-09)
PROC: 5A1D70Z Performance of Urinary Filtration, Intermittent, Less than 6 Hours Per Day (ICD-10-PCS; 2018-03-11)
DX: I13.2 Hypertensive heart and chronic kidney disease with heart failure and with stage 5 chronic kidney disease, or end stage renal disease (principal); N18.6 End stage renal disease; J96.11 Chronic respiratory failure with hypoxia; I50.22 Chronic systolic (congestive) heart failure; E78.5 Hyperlipidemia, unspecified; J44.9 Chronic obstructive pulmonary disease, unspecified; K21.9 Gastro-esophageal reflux disease without esophagitis; R10.9 Unspecified abdominal pain; R11.2 Nausea with vomiting, unspecified; E11.22 Type 2 diabetes mellitus with diabetic chronic kidney disease; D63.1 Anemia in chronic kidney disease; Z99.2 Dependence on renal dialysis; Z99.81 Dependence on supplemental oxygen; Z87.442 Personal history of urinary calculi
CPT/HCPCS: 36415; 71046-TC-FY; 80048; 80053; 82728; 82962; 83540; 83550; 83735; 84100; 84466; 85025; 85027; 85044; 85610; 86704; 86706; 86708; 86803; 87340; 93005; 93010; 97116-GP; 97162-GP; 99285-25; G0378; J0885; J1644

== ENCOUNTER 2018-04-08 14:29 | Inpatient (IN) | payer OTHER ==
[2018-04-08 14:49] VITALS: BMI 23.0
--- NOTE | 2018-04-08 14:51 | PDOC ---
Attending Attestation - Resident Resident Name: IsisChevy - ED Attending Attestation I have performed the following: I have examined & evaluated the patient, The case was reviewed & discussed with the resident, I agree w/resident's findings & plan, Exceptions are as noted - HPI HPI: 04/08/18 16:23 The patient is an 87-year-old female, with a history of HTN, HLD, DM, Asthma, COPD, kidney stones, ESRD who presents to the ED via EMS for sudden onset of chest pain and shortness of breath while getting dialyzed today. The patient finished 2 of her normal 3 hours of HD. Patients BP was noted to be 220/100 at the dialysis center and 180/100 upon arrival of EMS. She was placed on cpap and given 2 sublingual nitrates prior to arrival to the ED. Pt reports feeling better at tihis madhav, but still SOB. DEnies headache, focal weakness/numbness, fevers, chills. - Physicial Exam PE: 04/08/18 16:29 agree with resident exam - Medical Decision Making 04/08/18 16:00 87yo F hx ESRD on HD presents to the ED with sudden onset SOB during HD. BP elevated to the 200s/100s in the field, improved with cpap/nitro with improvement in sxs. Pt put on bipap in ED, BP 145/82, pt states she feels better. Lungs with bibasilar rales on initial evaluation. Likely acute pulm edema due to fluid shifts during HD. ACS and PE also on ddx, but in light of improvement with BP control with nitro and bipap, more likely APE. Will continue bipap, anticipate admission. 04/08/18 16:40 Pt remians on bipap Labs with elevated BNP although unreliable as pt is HD pt. CXR with possible effusion on L, some congestion on my read. Trop neg Pt admitted to Dr. Ybarra for further mgmt Case discussed in detail with admitting physician including history, physical exam and ancillary studies. Admitting physician has assumed care for the patient, will follow all pending diagnostics and will complete the evaluation and treatment. Heart Score/ECG Review #1 04/08/18 14:50 Twelve-lead EKG was performed and reviewed by me. Sinus rhythm, rate 74. Normal axis. No ST elevations .
--- NOTE | 2018-04-08 15:29 | PDOC ---
History of Present Illness - General Chief Complaint: Shortness of Breath Stated Complaint: Shortness of Breath Time Seen by Provider: 04/08/18 14:39 History Source: Patient Exam Limitations: No Limitations - History of Present Illness Initial Comments: 04/08/18 15:24 Patient is an 87F with history of HTN, HLD, DM, Asthma, ESRD on dialysis here today complaining of shortness of breath. Patient speaks creole and her aide was used to help collect history. Patient started feeling short of breath acutely after 2 of 3 hours of dialysis. Patient also complained of an associated epigastric and lower chest pain. Denies fevers, chills, nausea, vomiting. Denies lower abdominal pain, arm pain, fistula pain, leg swelling/ pain. Denies history of blood clots. Paramedics report that she was found initially to be tachypneic with a BP of 220 /110. Patient was given two nitrate tabs, and improved. Past History - Past Medical History Allergies/Adverse Reactions: Allergies Allergy/AdvReac Type Severity Reaction Status Date / Time egg AdvReac Vomiting Verified 04/08/18 14:49 Home Medications: Ambulatory Orders Acetaminophen W/ Codeine #3 [Tylenol # 3 -] 1 tab PO TID 04/08/18 Amlodipine Besylate 10 mg PO DAILY 04/08/18 Docusate Sodium 100 mg PO BID 04/08/18 Glipizide 10 mg PO BID 04/08/18 Metoprolol Tartrate 50 mg PO BID 04/08/18 Pregabalin [Lyrica -] 150 mg PO BID 04/08/18 Rosuvastatin [Crestor -] 20 mg PO HS 04/08/18 Salmeterol/Fluticasone [Advair 100Mcg/50Mcg -] 1 puff IH BID 04/08/18 Sevelamer Carbonate [Renvela -] 800 mg PO TID 04/08/18 Ventolin HFA Inhaler - 2 puff IH QID 04/08/18 Asthma: Yes COPD: Yes CHF: Yes Diabetes: Yes GI Disorders: Yes (GERD) HTN: Yes Kidney Stones: Yes - Immunization History Immunization Up to Date: Yes - Suicide/Smoking/Psychosocial Hx Smoking History: Former smoker Have you smoked in the past 12 months: No Number of Cigarettes Smoked Daily: 0 Cigars Per Day: 0 Information on smoking cessation initiated: No Hx Alcohol Use: No Drug/Substance Use Hx: No Substance Use Type: None Hx Substance Use Treatment: No Review of Systems - Review of Systems Comments:: 04/08/18 15:26 GENERAL/CONSTITUTIONAL: No fever or chills. No weakness. HEAD, EYES, EARS, NOSE AND THROAT: No change in vision. No sore throat. CARDIOVASCULAR: +chest pain +shortness of breath RESPIRATORY: No cough, wheezing, or hemoptysis. GASTROINTESTINAL: No nausea, vomiting, diarrhea or constipation. GENITOURINARY: No dysuria, frequency, or change in urination. MUSCULOSKELETAL: No joint or muscle swelling or pain. No neck or back pain. SKIN: No rash NEUROLOGIC: No headache, vertigo, loss of consciousness, or change in strength/ sensation. ENDOCRINE: No increased thirst. No abnormal weight change HEMATOLOGIC/LYMPHATIC: +anemia, no easy bleeding, or history of blood clots. ALLERGIC/IMMUNOLOGIC: No hives or skin allergy. *Physical Exam - Vital Signs Last Vital Signs Temp Pulse Resp BP Pulse Ox 73 22 H 143/65 98 04/08/18 14:48 04/08/18 14:48 04/08/18 14:48 04/08/18 14:48 - Physical Exam Comments: 04/08/18 15:27 GENERAL: Awake, alert, on CPAP HEAD: No signs of trauma, normocephalic, atraumatic EYES: PERRLA, EOMI, sclera anicteric, conjunctiva clear ENT: Auricles normal inspection, hearing grossly normal, nares patent, oropharynx clear without exudates. Moist mucosa NECK: Normal ROM, supple, no lymphadenopathy, JVD, or masses LUNGS: Tachypneic, coarse breath sounds bilaterally HEART: Regular rate and rhythm, normal S1 and S2, no murmurs, rubs or gallops, peripheral pulses normal and equal bilaterally. ABDOMEN: Soft, nontender, normoactive bowel sounds. No guarding, no rebound. No masses EXTREMITIES: Normal inspection, Normal range of motion, no edema. No clubbing or cyanosis. NEUROLOGICAL: Cranial nerves II through XII grossly intact. Normal speech, no focal sensorimotor deficits SKIN: Warm, Dry, normal turgor, no rashes or lesions noted. Moderate Sedation - Procedure Monitoring Vital Signs: Procedure Monitoring Vital Signs Temperature Pulse Rate 73 04/08/18 14:48 Respiratory Rate 22 H 04/08/18 14:48 Blood Pressure 143/65 04/08/18 14:48 O2 Sat by Pulse Oximetry (%) 98 04/08/18 14:48 ED Treatment Course - LABORATORY CBC & Chemistry Diagram: 04/08/18 15:26 04/08/18 15:26 - RADIOLOGY Radiology Studies Ordered: Category Date Time Status CHEST X-RAY PORTABLE* [RAD] Stat Radiology 04/08/18 14:39 Ordered Medical Decision Making - Medical Decision Making 04/08/18 15:27 Patient is 87F here today from dialysis with shortness of breath. Vitals initially hypertensive in the field, on CPAP. BPs normalized now in ED. Vitals stable. Suspect acute pulmonary edema, likely 2/2 fluid shifts 2/2 dialysis. DDx also includes, but is not limited to: ACS, CHF exacerbation. Will send cardiac labs, ekg, cxr. 04/08/18 16:39 CBC stable anemia. CMP reassuring. Trop 0.02, less than threshold. BNP elevated. EKG shows normal sinus rhythm with rate of 74. No st elevations/depressions. Normal axis. Normal intervals. No significant t-wave abnormalities. CXR shows cadiomegaly, likely left pleural effusion. No infiltrate. Bipap titrated down to 40% O2. Stable. D/w Dr Ybarra, admitted to floor. 04/08/18 19:29 Patient weaned off bipap, satting 95%, on 4L. *DC/Admit/Observation/Transfer Diagnosis at time of Disposition: Acute pulmonary edema - Discharge Dispostion Condition at time of disposition: Stable Decision to Admit order: Yes - Referrals - Patient Instructions - Post Discharge Activity
[2018-04-08 15:37] LABS: BASO % 0.8 % (0-2.0); EOS % 0.7 % (0-4.5); HEMATOCRIT 27.4 % (32.4-45.2); HEMOGLOBIN 9.2 GM/dL (10.7-15.3); LYMPH % 9.4 % (8-40); MCH 28.5 pg (25.7-33.7); MCHC 33.5 g/dl (32.0-36.0); MEAN CELL VOLUME 85.1 fl (80-96); MONO % 9.1 % (3.8-10.2); RBC 3.22 M/mm3 (3.60-5.2); WHITE BLOOD COUNT 6.5 K/mm3 (4.0-10.0)
[2018-04-08 16:02] LABS: INR 0.89 (0.83-1.09); PROTHROMBIN TIME (PATIENT) 10.5 SEC (9.7-13.0)
[2018-04-08 16:07] LABS: ALBUMIN 3.4 g/dl (3.4-5.0); ALK PHOS 61 U/L (45-117); ANION GAP 4 MMOL/L (8-16); BILIRUBIN,TOTAL 0.7 mg/dL (0.2-1); BLOOD UREA NITROGEN 16 mg/dL (7-18); CALCIUM 8.5 mg/dL (8.5-10.1); CHLORIDE 104 mmol/L (98-107); CO2 32 mmol/L (21-32); CREATININE 3.3 mg/dL (0.55-1.3); GLUCOSE,RANDOM 113 mg/dL (74-106); MAGNESIUM 2.2 mg/dL (1.8-2.4); N-TERMINAL BNP 2764.7 pg/ml (5-450); POTASSIUM 4.2 mmol/L (3.5-5.1); SGOT/AST 21 U/L (15-37); SGPT/ALT 14 U/L (13-61); SODIUM 140 mmol/L (136-145); TOT PROT 6.3 g/dl (6.4-8.2)
[2018-04-08 16:26] LABS: PLATELET COUNT 70 K/MM3 (134-434)
[2018-04-08 16:41] LABS: PLATELET ESTIMATE DECREASED
--- NOTE | 2018-04-08 21:31 | HP ---
Admitting History and Physical - Primary Care Physician PCP: Lisset Ybarra - Admission History of Present Illness: 87F with history of HTN, HLD, DM, Asthma, ESRD on dialysis here today complaining of shortness of breath. Patient speaks creole and her aide was used to help collect history. Patient started feeling short of breath acutely after 2 of 3 hours of dialysis. Patient also complained of an associated epigastric and lower chest pain. Denies fevers, chills, nausea, vomiting. Denies lower abdominal pain, arm pain, fistula pain, leg swelling/pain. Denies history of blood clots. Paramedics report that she was found initially to be tachypneic with a BP of 220 /110. Patient was given two nitrate tabs, and improved. - Past Medical History Cardiovascular: Yes: HTN Pulmonary: Yes: COPD Gastrointestinal: Yes: GERD Renal/: Yes: Renal Inusuff, Renal Calculi (maybe- she had flank pain) Endocrine: Yes: Diabetes Mellitus - Past Surgical History Past Surgical History: Yes: AV Fistula/Graft - Smoking History Smoking history: Former smoker Have you smoked in the past 12 months: No Aproximately how many cigarettes per day: 0 - Alcohol/Substance Use Hx Alcohol Use: No Home Medications - Allergies Allergies/Adverse Reactions: Allergies Allergy/AdvReac Type Severity Reaction Status Date / Time egg AdvReac Vomiting Verified 04/08/18 14:49 - Home Medications Home Medications: Ambulatory Orders Acetaminophen W/ Codeine #3 [Tylenol # 3 -] 1 tab PO TID 04/08/18 Amlodipine Besylate 10 mg PO DAILY 04/08/18 Docusate Sodium 100 mg PO BID 04/08/18 Glipizide 10 mg PO BID 04/08/18 Metoprolol Tartrate 50 mg PO BID 04/08/18 Pregabalin [Lyrica -] 150 mg PO BID 04/08/18 Rosuvastatin [Crestor -] 20 mg PO HS 04/08/18 Salmeterol/Fluticasone [Advair 100Mcg/50Mcg -] 1 puff IH BID 04/08/18 Sevelamer Carbonate [Renvela -] 800 mg PO TID 04/08/18 Ventolin HFA Inhaler - 2 puff IH QID 04/08/18 Review of Systems - Review of Systems Respiratory: reports: SOB Physical Examination Vital Signs: Vital Signs Temperature 98.7 F 04/08/18 19:32 Pulse Rate 72 04/08/18 19:32 Respiratory Rate 16 04/08/18 19:32 Blood Pressure 157/72 04/08/18 19:32 O2 Sat by Pulse Oximetry (%) 100 04/08/18 19:32 Constitutional: Yes: No Distress HENT: Yes: Atraumatic Neck: Yes: Supple Cardiovascular: Yes: Regular Rate and Rhythm Respiratory: Yes: CTA Bilaterally Gastrointestinal: Yes: Normal Bowel Sounds Extremities: Yes: WNL Edema: No Neurological: Yes: Alert, Oriented Labs: CBC, BMP 04/08/18 15:26 04/08/18 15:26 Problem List - Problems (1) Acute pulmonary edema Code(s): J81.0 - ACUTE PULMONARY EDEMA (2) ESRD (end stage renal disease) Assessment/Plan: for hd Code(s): N18.6 - END STAGE RENAL DISEASE (3) Chronic kidney disease Code(s): N18.9 - CHRONIC KIDNEY DISEASE, UNSPECIFIED (4) Diabetes Assessment/Plan: on meds stable Code(s): E11.9 - TYPE 2 DIABETES MELLITUS WITHOUT COMPLICATIONS Qualifiers: Diabetes mellitus type: type 2 Diabetes mellitus manager long term care insulin use: without manager long term care use Diabetes mellitus complication status: with kidney complications Diabetes mellitus complication detail: with chronic kidney disease Chronic kidney disease stage: on chronic dialysis Qualified Code(s) : E11.22 - Type 2 diabetes mellitus with diabetic chronic kidney disease; N18.6 - End stage renal disease; Z99.2 - Dependence on renal dialysis (5) Diastolic CHF Assessment/Plan: for echo cardio on board Code(s): I50.30 - UNSPECIFIED DIASTOLIC (CONGESTIVE) HEART FAILURE Qualifiers: Heart failure chronicity: acute on chronic Qualified Code(s): I50.33 - Acute on chronic diastolic (congestive) heart failure (6) Hypercholesterolemia Assessment/Plan: on meds Code(s): E78.00 - PURE HYPERCHOLESTEROLEMIA, UNSPECIFIED Assessment/Plan Laboratory Tests 04/08/18 04/08/18 04/08/18 15:26 15:26 15:26 WBC 6.5 RBC 3.22 L Hgb 9.2 L Hct 27.4 L MCV 85.1 MCH 28.5 MCHC 33.5 RDW 18.0 H Plt Count 70 L D Absolute Neuts (auto) 5.2 Neutrophils % 80.0 Lymphocytes % 9.4 D Monocytes % 9.1 Eosinophils % 0.7 Basophils % 0.8 Nucleated RBC % 0 Platelet Estimate Decreased Platelet Comment No clumping noted PT with INR 10.50 INR 0.89 Sodium 140 Potassium 4.2 Chloride 104 Carbon Dioxide 32 Anion Gap 4 L BUN 16 Creatinine 3.3 H Creat Clearance w eGFR 13.22 Random Glucose 113 H Calcium 8.5 Magnesium 2.2 Total Bilirubin 0.7 AST 21 ALT 14 Alkaline Phosphatase 61 Creatine Kinase 49 Troponin I 0.02 B-Natriuretic Peptide 2764.7 H Total Protein 6.3 L Albumin 3.4 Active Medications Generic Name Dose Route Start Last Admin Trade Name Freq PRN Reason Stop Dose Admin Albuterol Sulfate 2 puff 04/08/18 21:34 Ventolin Hfa Inhaler - IH Q4H PRN SHORT OF BREATH/WHEEZING Amlodipine Besylate 10 mg 04/09/18 10:00 04/09/18 10:52 Norvasc - PO 10 mg DAILY FOR[facility] Administration Glipizide 10 mg 04/09/18 07:00 04/09/18 16:53 Glucotrol - PO Not Given BIDI [facility] Hydralazine HCl 10 mg 04/09/18 22:00 Apresoline - PO BID FOR[facility] Sodium Chloride 250 mls @ 3,000 mls/hr 04/09/18 19:16 Normal Saline - IV 04/10/18 19:15 PRN PRN Hypotension during Dialysis Metoprolol Tartrate 50 mg 04/08/18 22:00 04/09/18 10:52 Lopressor - PO 50 mg BID FORREST Administration Pregabalin 100 mg/ Pregabalin 150 mg 04/08/18 22:00 04/09/18 10:52 50 mg PO 150 mg BID FORREST Administration Rosuvastatin Calcium 20 mg 04/08/18 22:00 04/08/18 22:15 Crestor - PO 20 mg HS FORREST Administration Fluticasone/Salmeterol 1 puff 04/08/18 22:00 04/09/18 11:40 Advair 100mcg/50mcg - IH 1 puff BID FOR[facility] Administration Sevelamer Carbonate 800 mg 04/09/18 08:00 04/09/18 16:53 Renvela - PO Not Given TIDCM [facility]
[2018-04-08] MEDS ORDERED: ALBUTEROL SO4 8 GM HFA INHALER IH PRN (21:34)
[2018-04-08] MEDS ORDERED: PATIENT'S OWN MEDICATION (NON-FORMULARY) (Pregabalin [Lyrica -] 150 MG) PO SCH (22:00)
[2018-04-08] MEDS: ROSUVASTATIN CA 20 MG TABLET (FP) PO SCH (22:15)
[2018-04-09] MEDS ORDERED: PREGABALIN 100 MG CAPSULE ONE ×3 (01:01→23:33)
[2018-04-09] MEDS ORDERED: PREGABALIN 50 MG CAPSULE ONE ×3 (01:01→23:32)
[2018-04-09] MEDS: PREGABALIN 100 MG, PREGABALIN 50 MG PO SCH ×3 (01:19→23:35)
[2018-04-09] MEDS ORDERED: glipiZIDE 5 MG TABLET (FP) ONE (07:04)
[2018-04-09] MEDS: glipiZIDE 10 MG TABLET (FP) PO SCH ×2 (07:11→16:53)
[2018-04-09] MEDS: METOPROLOL TARTRATE 50 MG TABLET (FP) PO SCH ×3 (07:11→23:35)
[2018-04-09 07:44] LABS: HEMATOCRIT 27.5 % (32.4-45.2); HEMOGLOBIN 9.1 GM/dL (10.7-15.3); MCH 28.1 pg (25.7-33.7); MEAN CELL VOLUME 85.1 fl (80-96); MEAN PLT VOLUME 8.9 fl (7.5-11.1); PLATELET COUNT 90 K/MM3 (134-434); RBC 3.23 M/mm3 (3.60-5.2); RDW 18.4 % (11.6-15.6); WHITE BLOOD COUNT 5.1 K/mm3 (4.0-10.0)
[2018-04-09 08:33] LABS: ALBUMIN 3.2 g/dl (3.4-5.0); ALK PHOS 52 U/L (45-117); ANION GAP 4 MMOL/L (8-16); BILIRUBIN,TOTAL 0.6 mg/dL (0.2-1); BLOOD UREA NITROGEN 20 mg/dL (7-18); CALCIUM 8.4 mg/dL (8.5-10.1); CHLORIDE 106 mmol/L (98-107); CO2 32 mmol/L (21-32); CREATININE 4.2 mg/dL (0.55-1.3); GLUCOSE,RANDOM 81 mg/dL (74-106); POTASSIUM 4.1 mmol/L (3.5-5.1); SGOT/AST 14 U/L (15-37); SGPT/ALT 14 U/L (13-61); SODIUM 142 mmol/L (136-145); TOT PROT 5.8 g/dl (6.4-8.2)
[2018-04-09] MEDS: amLODIPine BESYLATE 10 MG TABLET (FP) PO SCH (10:52)
[2018-04-09] MEDS: SEVELAMER CARBONATE 800 MG TAB (FP) PO SCH ×3 (10:52→16:53)
--- NOTE | 2018-04-09 10:58 | CON.CARD ---
Consult Consult Specialty:: Cardiology Referred by:: Hospitalist Medicine Reason for Consultation:: Diastolic heart failure - History of Present Illness Chief Complaint: Dyspnea History of Present Illness: Ms. Crouch is an 87 yo female w/ pmh of asthma, COPD (on home O2), HTN, nephrolithiasis, frequent UTIs, prior gastrointestinal bleed, ESRD on HD, hyperlipidemia, DM who presents for shortness of breath. Patient speaks creole and her aide was used to help collect history. Patient started feeling short of breath acutely after 2 of 3 hours of dialysis. Patient also complained of an associated epigastric and lower chest pain. Denies fevers, chills, nausea, vomiting. Denies lower abdominal pain, arm pain, fistula pain, leg swelling/pain , near or true syncope, palpitations, orthopnea, history of blood clots. Paramedics report that she was found initially to be tachypneic with a BP of 220 /110. Patient was given two nitrate tabs, and symptoms improved. - History Source History Provided By: Medical Record Limitations to Obtaining History: Language Barrier - Past Medical History Cardio/Vascular: Yes: HTN Pulmonary: Yes: COPD Gastrointestinal: Yes: GERD Renal/: Yes: Renal Inusuff, Renal Calculi (maybe- she had flank pain) Endocrine: Yes: Diabetes Mellitus - Past Surgical History Past Surgical History: Yes: AV Fistula/Graft - Alcohol/Substance Use Hx Alcohol Use: No - Smoking History Smoking history: Former smoker Have you smoked in the past 12 months: No Aproximately how many cigarettes per day: 0 Home Medications - Allergies Allergies/Adverse Reactions: Allergies Allergy/AdvReac Type Severity Reaction Status Date / Time egg AdvReac Vomiting Verified 04/08/18 14:49 - Home Medications Home Medications: Ambulatory Orders Acetaminophen W/ Codeine #3 [Tylenol # 3 -] 1 tab PO TID 04/08/18 Amlodipine Besylate 10 mg PO DAILY 04/08/18 Docusate Sodium 100 mg PO BID 04/08/18 Glipizide 10 mg PO BID 04/08/18 Metoprolol Tartrate 50 mg PO BID 04/08/18 Pregabalin [Lyrica -] 150 mg PO BID 04/08/18 Rosuvastatin [Crestor -] 20 mg PO HS 04/08/18 Salmeterol/Fluticasone [Advair 100Mcg/50Mcg -] 1 puff IH BID 04/08/18 Sevelamer Carbonate [Renvela -] 800 mg PO TID 04/08/18 Ventolin HFA Inhaler - 2 puff IH QID 04/08/18 Review of Systems - Review of Systems Respiratory: reports: Exercise Intolerance, SOB Vital Signs: Vital Signs Temperature 98.7 F 04/09/18 08:00 Pulse Rate 79 04/09/18 08:00 Respiratory Rate 15 04/09/18 08:00 Blood Pressure 151/91 04/09/18 08:00 O2 Sat by Pulse Oximetry (%) 100 04/09/18 08:00 Constitutional: Yes: No Distress, Calm Neck: Yes: Supple Respiratory: Yes: Regular, Diminished, On Nasal O2 Gastrointestinal: Yes: Normal Bowel Sounds, Soft Cardiovascular: Yes: Regular Rate and Rhythm JVD: No Carotid Bruit: No Heart Sounds: Yes: S1, S2 Murmur: Yes: Systolic Murmur, Grade 2 Edema: No - Other Data Labs, Other Data: CBC, BMP 04/09/18 06:25 04/09/18 06:25 INR, PTT INR 0.89 (0.83-1.09) 04/08/18 15:26 Troponin, BNP 04/08/18 15:26 Troponin I 0.02 B-Natriuretic Peptide 2764.7 H Troponin, BNP 04/08/18 15:26 Troponin I 0.02 B-Natriuretic Peptide 2764.7 H NSR @ 95 Ejection Fraction %: LVEF > or = 40 % Imaging - Results Chest X-ray: Report Reviewed (Possible retrocardiac infiltrate, no failure) Problem List - Problems (1) Hypertensive urgency Code(s): I16.0 - HYPERTENSIVE URGENCY (2) Dyspnea Code(s): R06.00 - DYSPNEA, UNSPECIFIED Qualifiers: Dyspnea type: shortness of breath Qualified Code(s): R06.02 - Shortness of breath; R06.00 - Dyspnea, unspecified; R06.01 - Orthopnea (3) ESRD (end stage renal disease) Code(s): N18.6 - END STAGE RENAL DISEASE (4) Diabetes Code(s): E11.9 - TYPE 2 DIABETES MELLITUS WITHOUT COMPLICATIONS Qualifiers: Diabetes mellitus type: type 2 Diabetes mellitus custodial insulin use: without custodial use Diabetes mellitus complication status: with kidney complications Diabetes mellitus complication detail: with chronic kidney disease Chronic kidney disease stage: on chronic dialysis Qualified Code(s) : E11.22 - Type 2 diabetes mellitus with diabetic chronic kidney disease; N18.6 - End stage renal disease; Z99.2 - Dependence on renal dialysis (5) Diastolic CHF Code(s): I50.30 - UNSPECIFIED DIASTOLIC (CONGESTIVE) HEART FAILURE Qualifiers: Heart failure chronicity: acute on chronic Qualified Code(s): I50.33 - Acute on chronic diastolic (congestive) heart failure (6) Hypercholesterolemia Code(s): E78.00 - PURE HYPERCHOLESTEROLEMIA, UNSPECIFIED (7) Pericardial effusion Code(s): I31.3 - PERICARDIAL EFFUSION (NONINFLAMMATORY) Assessment/Plan 02/11/2018 Echo: Normal LV size and fxn, moderate pericardial effusion, mild- mod MR, severe TR, RVSP>60 1. Acute on chronic diastolic heart failure with pulm HTN 2. Hypertensive urgency 3. ESRD on HD 4. COPD 5. Type 2 DM 6. Hyperlipidemia 7. Pericardial effusion suspect uremic etiology 8. Anemia, thrombocytopenia P:1. Volume removal via HD 2. Continue Norvasc 10 qd, Lopressor 50 bid, Crestor 20 qhs with uptitration as hemodynamics tolerate 3. Repeat echo to assess interval change in pericardial effusion with HD, check lipid panel 4. BD, O2 as needed 5. Thank you for consultative opportunity
[2018-04-09] MEDS: FLUTICASONE/SALMETEROL 100 MCG/50 MCG DISKUS IH SCH ×2 (11:40→23:35)
[2018-04-09 12:06] LABS: ANISOCYTOSIS 1+; MACROCYTOSIS 0; PLATELET ESTIMATE DECREASED
--- NOTE | 2018-04-09 15:32 | CONSULT ---
Consult Consult Specialty:: Nephrology Reason for Consultation:: ESRD - History of Present Illness Chief Complaint: shortness of breath History of Present Illness: Pt is an 87 year old female with pmhx of ESRD, HTN, DM, asthma, copd, and pericardial effusion who was sent to the ER for chest pain and shortness of breath. SHe currently denies chest pain. SHe complains of shortness of breath with minimal exertion. She is on home 02 at baseline. She was also markedly hypertensive yesterday. It is unclear if she took her am bp meds yesterday. - History Source History Provided By: Medical Record - Past Medical History Cardio/Vascular: Yes: HTN Pulmonary: Yes: COPD Gastrointestinal: Yes: GERD Renal/: Yes: Renal Inusuff, Hemodialysis, Renal Calculi (maybe- she had flank pain) Endocrine: Yes: Diabetes Mellitus - Past Surgical History Past Surgical History: Yes: AV Fistula/Graft - Alcohol/Substance Use Hx Alcohol Use: No - Smoking History Smoking history: Former smoker Have you smoked in the past 12 months: No Aproximately how many cigarettes per day: 0 Home Medications - Allergies Allergies/Adverse Reactions: Allergies Allergy/AdvReac Type Severity Reaction Status Date / Time egg AdvReac Vomiting Verified 04/08/18 14:49 - Home Medications Home Medications: Ambulatory Orders Acetaminophen W/ Codeine #3 [Tylenol # 3 -] 1 tab PO TID 04/08/18 Amlodipine Besylate 10 mg PO DAILY 04/08/18 Docusate Sodium 100 mg PO BID 04/08/18 Glipizide 10 mg PO BID 04/08/18 Metoprolol Tartrate 50 mg PO BID 04/08/18 Pregabalin [Lyrica -] 150 mg PO BID 04/08/18 Rosuvastatin [Crestor -] 20 mg PO HS 04/08/18 Salmeterol/Fluticasone [Advair 100Mcg/50Mcg -] 1 puff IH BID 04/08/18 Sevelamer Carbonate [Renvela -] 800 mg PO TID 04/08/18 Ventolin HFA Inhaler - 2 puff IH QID 04/08/18 Family Disease History - Family Disease History Family History: Denies Review of Systems - Review of Systems Constitutional: reports: Malaise. denies: Chills Eyes: reports: No Symptoms HENT: reports: No Symptoms Neck: reports: No Symptoms Cardiovascular: reports: Chest Pain, Edema, Shortness of Breath Respiratory: reports: SOB Gastrointestinal: reports: No Symptoms Genitourinary: reports: No Symptoms Musculoskeletal: reports: No Symptoms Integumentary: reports: No Symptoms Neurological: reports: No Symptoms Endocrine: reports: No Symptoms Hematology/Lymphatic: reports: No Symptoms Psychiatric: reports: No Symptoms Physical Exam Vital Signs: Vital Signs Temperature 98.7 F 04/09/18 08:00 Pulse Rate 79 04/09/18 08:00 Respiratory Rate 15 04/09/18 08:00 Blood Pressure 151/91 04/09/18 08:00 O2 Sat by Pulse Oximetry (%) 95 04/09/18 11:37 Constitutional: Yes: Calm Eyes: Yes: Conjunctiva Clear HENT: Yes: Atraumatic Neck: Yes: Supple Cardiovascular: Yes: S1, S2 Respiratory: Yes: On Nasal O2 Gastrointestinal: Yes: Soft Renal/: Yes: WNL Musculoskeletal: Yes: WNL Edema: Yes Edema: LLE: Trace, RLE: Trace Neurological: Yes: Oriented Psychiatric: Yes: Oriented Labs: CBC, BMP 04/09/18 06:25 04/09/18 06:25 Imaging - Results Chest X-ray: Report Reviewed Problem List - Problems (1) Hypertensive urgency Code(s): I16.0 - HYPERTENSIVE URGENCY (2) ESRD (end stage renal disease) Code(s): N18.6 - END STAGE RENAL DISEASE (3) Pericardial effusion Code(s): I31.3 - PERICARDIAL EFFUSION (NONINFLAMMATORY) Assessment/Plan Current Medications Generic Name Dose Route Start Last Admin Trade Name Freq PRN Reason Stop Dose Admin Albuterol Sulfate 2 puff 04/08/18 21:34 Ventolin Hfa Inhaler - IH Q4H PRN SHORT OF BREATH/WHEEZING Amlodipine Besylate 10 mg 04/09/18 10:00 04/09/18 10:52 Norvasc - PO 10 mg DAILY FORREST Administration Glipizide 10 mg 04/09/18 07:00 04/09/18 07:11 Glucotrol - PO 10 mg BIDI FORREST Administration Hydralazine HCl 10 mg 04/09/18 22:00 Apresoline - PO BID FORREST Sodium Chloride 250 mls @ 3,000 mls/hr 04/09/18 14:56 Normal Saline - IV 04/10/18 14:56 PRN PRN Hypotension during Dialysis Metoprolol Tartrate 50 mg 04/08/18 22:00 04/09/18 10:52 Lopressor - PO 50 mg BID FORREST Administration Pregabalin 100 mg/ Pregabalin 150 mg 04/08/18 22:00 04/09/18 10:52 50 mg PO 150 mg BID FORREST Administration Rosuvastatin Calcium 20 mg 04/08/18 22:00 04/08/18 22:15 Crestor - PO 20 mg HS FORREST Administration Fluticasone/Salmeterol 1 puff 04/08/18 22:00 04/09/18 11:40 Advair 100mcg/50mcg - IH 1 puff BID FORREST Administration Sevelamer Carbonate 800 mg 04/09/18 08:00 04/09/18 12:18 Renvela - PO Not Given TIDCM FOR[facility] Impression 1. ESRD 2. HTN 3. HLD 4. COPD 5. DM 6. pos heb b core 7. abd pain 8. vomiting 9. anemia 10. pericardial effusion Plan - will arrange for HD today as she did not complete her session yesterday - follow up echo, discussed with cardio - bp is better today - cont to monitor - monitor mental status - discussed with family - renal diet - will follow Dr Reis
--- NOTE | 2018-04-09 16:04 | ECHO ---
Name: BRIAN ONEILL Exam:Adult Echocardiogram Study Date: 04/09/2018 12:50 PM Age: 87 yrs Reason For Study: ESRD ON HD, ASSESS PERICARDIAL EFFUSION Height: 63 in Weight: 130 lb BSA: 1.6 m2 MMode/2D Measurements & Calculations IVSs: 1.3 cm Ao root diam: 3.2 cm LA dimension: 4.5 cm Doppler Measurements & Calculations MV E max edinson: 78.0 cm/sec Ao V2 max: 187.9 cm/sec MV A max edinson: 90.3 cm/sec Ao max P.1 mmHg MV E/A: 0.86 Ao V2 mean: 133.9 cm/sec Ao mean P.7 mmHg Ao V2 VTI: 42.4 cm TR max edinson: 342.7 cm/sec Med Peak E' Edinson: 4.2 cm/sec TR max P.0 mmHg Med E/e': 18.6 Lat Peak E' Edinson: 5.1 cm/sec Lat E/e': 15.4 Procedure A complete two-dimensional transthoracic echocardiogram was performed (2D, M-mode, Doppler and color flow Doppler). Left Ventricle The left ventricular size, thickness and function are normal. The left ventricular ejection fraction is normal. Ejection Fraction = 60-65%. The left ventricular wall motion is normal. Right Ventricle The right ventricle is normal in size and function. Atria Normal left and right atrial size and function. Mitral Valve There is mild mitral regurgitation. Tricuspid Valve There is moderate tricuspid regurgitation. Right ventricular systolic pressure is elevated at 40-50mm Hg. Aortic Valve No hemodynamically significant valvular aortic stenosis. No aortic regurgitation is present. Pulmonic Valve There is no pulmonic valvular regurgitation. Great Vessels The aortic root is normal size. Pericardium/Pleura Small pericardial effusion (<1cm). There are no echocardiographic indications of cardiac tamponade. Interpretation Summary The left ventricular size, thickness and function are normal The right ventricle is normal in size and function. There is mild mitral regurgitation. There is moderate tricuspid regurgitation. Right ventricular systolic pressure is elevated at 40-50mmHg. Small pericardial effusion (<1cm) MD Go Skinner 04/09/2018 04:03 PM
--- NOTE | 2018-04-09 16:45 | EKG ---
Test Reason : Blood Pressure : / mmHG Vent. Rate : 074 BPM Atrial Rate : 074 BPM P-R Int : 172 ms QRS Dur : 078 ms QT Int : 364 ms P-R-T Axes : 065 042 074 degrees QTc Int : 404 ms SINUS RHYTHM WITH PREMATURE ATRIAL COMPLEXES OTHERWISE NORMAL ECG WHEN COMPARED WITH ECG OF 04-MAR-2018 17:48, PREMATURE ATRIAL COMPLEXES ARE NOW PRESENT Confirmed by JOVAN MIDDLETON, MADELINE ([id number]) on 04/09/2018 4:45:13 PM Referred By: Confirmed By:MADELINE ALDANA MD
[2018-04-09 17:40] LABS: CREATININE 4.8 mg/dL (0.55-1.3)
[2018-04-09] MEDS ORDERED: SODIUM CHLORIDE 250 ML IV PRN (19:16)
--- NOTE | 2018-04-09 19:53 | PN ---
Progress Note, Physician - Current Medication List Current Medications: Active Medications Albuterol Sulfate (Ventolin Hfa Inhaler -) 2 puff IH Q4H PRN PRN Reason: SHORT OF BREATH/WHEEZING Amlodipine Besylate (Norvasc -) 10 mg PO DAILY [facility] Last Admin: 04/09/18 10:52 Dose: 10 mg Glipizide (Glucotrol -) 10 mg PO BIDI [facility] Last Admin: 04/09/18 16:53 Dose: Not Given Hydralazine HCl (Apresoline -) 10 mg PO BID [facility] Sodium Chloride (Normal Saline -) 250 mls @ 3,000 mls/hr IV PRN PRN PRN Reason: Hypotension during Dialysis Stop: 04/10/18 19:15 Metoprolol Tartrate (Lopressor -) 50 mg PO BID [facility] Last Admin: 04/09/18 10:52 Dose: 50 mg Pregabalin 100 mg/ Pregabalin (50 mg) 150 mg PO BID [facility] Last Admin: 04/09/18 10:52 Dose: 150 mg Rosuvastatin Calcium (Crestor -) 20 mg PO HS [facility] Last Admin: 04/08/18 22:15 Dose: 20 mg Fluticasone/Salmeterol (Advair 100mcg/50mcg -) 1 puff IH BID [facility] Last Admin: 04/09/18 11:40 Dose: 1 puff Sevelamer Carbonate (Renvela -) 800 mg PO TIDCM [facility] Last Admin: 04/09/18 16:53 Dose: Not Given - Objective Vital Signs: Vital Signs Temperature 98.3 F 04/09/18 14:10 Pulse Rate 190 H 04/09/18 19:10 Respiratory Rate 18 04/09/18 19:10 Blood Pressure 163/75 04/09/18 19:10 O2 Sat by Pulse Oximetry (%) 95 04/09/18 11:37 Constitutional: Yes: No Distress HENT: Yes: Atraumatic Neck: Yes: Supple Cardiovascular: Yes: Regular Rate and Rhythm Respiratory: Yes: CTA Bilaterally Gastrointestinal: Yes: Normal Bowel Sounds Extremities: Yes: WNL Edema: No Peripheral Pulses WNL: Yes Neurological: Yes: Alert, Oriented Labs: CBC, BMP 04/09/18 06:25 04/09/18 16:55 INR, PTT INR 0.89 (0.83-1.09) 04/08/18 15:26 Problem List - Problems (1) Acute pulmonary edema Code(s): J81.0 - ACUTE PULMONARY EDEMA (2) ESRD (end stage renal disease) Assessment/Plan: for hd Code(s): N18.6 - END STAGE RENAL DISEASE (3) Chronic kidney disease Code(s): N18.9 - CHRONIC KIDNEY DISEASE, UNSPECIFIED (4) Diabetes Assessment/Plan: on meds stable Code(s): E11.9 - TYPE 2 DIABETES MELLITUS WITHOUT COMPLICATIONS Qualifiers: Diabetes mellitus type: type 2 Diabetes mellitus rn long term care insulin use: without rn long term care use Diabetes mellitus complication status: with kidney complications Diabetes mellitus complication detail: with chronic kidney disease Chronic kidney disease stage: on chronic dialysis Qualified Code(s) : E11.22 - Type 2 diabetes mellitus with diabetic chronic kidney disease; N18.6 - End stage renal disease; Z99.2 - Dependence on renal dialysis (5) Diastolic CHF Assessment/Plan: echo done cardio on board Code(s): I50.30 - UNSPECIFIED DIASTOLIC (CONGESTIVE) HEART FAILURE Qualifiers: Heart failure chronicity: acute on chronic Qualified Code(s): I50.33 - Acute on chronic diastolic (congestive) heart failure (6) Hypercholesterolemia Assessment/Plan: on meds Code(s): E78.00 - PURE HYPERCHOLESTEROLEMIA, UNSPECIFIED
[2018-04-09 21:46] LABS: CREATININE 1.4 mg/dL (0.55-1.3)
[2018-04-09] MEDS ORDERED: hydrALAZINE HCL 10 MG TABLET PO SCH (22:00)
[2018-04-09] MEDS: ROSUVASTATIN CA 20 MG TABLET (FP) PO SCH (23:35)
[2018-04-10 06:32] LABS: HEMATOCRIT 27.4 % (32.4-45.2); MCHC 32.8 g/dl (32.0-36.0); MEAN CELL VOLUME 85.5 fl (80-96); MEAN PLT VOLUME 8.1 fl (7.5-11.1); PLATELET COUNT 64 K/MM3 (134-434); RDW 18.8 % (11.6-15.6); WHITE BLOOD COUNT 4.5 K/mm3 (4.0-10.0)
[2018-04-10] MEDS: hydrALAZINE HCL 10 MG TABLET PO SCH ×2 (06:50→13:10)
[2018-04-10] MEDS: glipiZIDE 10 MG TABLET (FP) PO SCH ×2 (06:50→17:33)
[2018-04-10 07:07] LABS: ANION GAP 4 MMOL/L (8-16); BLOOD UREA NITROGEN 10 mg/dL (7-18); CALCIUM 8.4 mg/dL (8.5-10.1); CHLORIDE 103 mmol/L (98-107); CHOLESTEROL 166 mg/dL (50-200); CO2 35 mmol/L (21-32); CREATININE 2.8 mg/dL (0.55-1.3); GLUCOSE,RANDOM 70 mg/dL (74-106); HDL CHOLESTEROL 86 mg/dL (40-60); POTASSIUM 3.7 mmol/L (3.5-5.1); SODIUM 141 mmol/L (136-145); TRIGLYCERIDES 77 mg/dL (0-150)
--- NOTE | 2018-04-10 08:57 | PN ---
Progress Note, Physician History of Present Illness: No further chest pain or dyspnea. BP with improved control. - Current Medication List Current Medications: Active Medications Albuterol Sulfate (Ventolin Hfa Inhaler -) 2 puff IH Q4H PRN PRN Reason: SHORT OF BREATH/WHEEZING Amlodipine Besylate (Norvasc -) 10 mg PO DAILY [facility] Last Admin: 04/09/18 10:52 Dose: 10 mg Glipizide (Glucotrol -) 10 mg PO BIDI [facility] Last Admin: 04/10/18 06:50 Dose: 10 mg Hydralazine HCl (Apresoline -) 10 mg PO TID [facility] Last Admin: 04/10/18 06:50 Dose: 10 mg Sodium Chloride (Normal Saline -) 250 mls @ 3,000 mls/hr IV PRN PRN PRN Reason: Hypotension during Dialysis Stop: 04/10/18 19:15 Metoprolol Tartrate (Lopressor -) 50 mg PO BID [facility] Last Admin: 04/09/18 23:35 Dose: 50 mg Pregabalin 100 mg/ Pregabalin (50 mg) 150 mg PO BID [facility] Last Admin: 04/09/18 23:35 Dose: 150 mg Rosuvastatin Calcium (Crestor -) 20 mg PO HS [facility] Last Admin: 04/09/18 23:35 Dose: 20 mg Fluticasone/Salmeterol (Advair 100mcg/50mcg -) 1 puff IH BID [facility] Last Admin: 04/09/18 23:35 Dose: Not Given Sevelamer Carbonate (Renvela -) 800 mg PO TIDCM [facility] Last Admin: 04/09/18 16:53 Dose: Not Given - Objective Vital Signs: Vital Signs Temperature 98.4 F 04/10/18 02:00 Pulse Rate 78 04/10/18 06:00 Respiratory Rate 20 04/10/18 06:00 Blood Pressure 161/72 04/10/18 06:00 O2 Sat by Pulse Oximetry (%) 95 04/09/18 21:31 Constitutional: Yes: No Distress, Calm Neck: Yes: Supple Cardiovascular: Yes: Regular Rate and Rhythm Respiratory: Yes: Regular, Diminished Gastrointestinal: Yes: Normal Bowel Sounds, Soft Edema: No Labs: CBC, BMP 04/10/18 05:30 04/10/18 06:00 INR, PTT INR 0.89 (0.83-1.09) 04/08/18 15:26 Problem List - Problems (1) Hypertensive urgency Code(s): I16.0 - HYPERTENSIVE URGENCY (2) Dyspnea Code(s): R06.00 - DYSPNEA, UNSPECIFIED Qualifiers: Dyspnea type: shortness of breath Qualified Code(s): R06.02 - Shortness of breath; R06.00 - Dyspnea, unspecified; R06.01 - Orthopnea (3) ESRD (end stage renal disease) Code(s): N18.6 - END STAGE RENAL DISEASE (4) Diabetes Code(s): E11.9 - TYPE 2 DIABETES MELLITUS WITHOUT COMPLICATIONS Qualifiers: Diabetes mellitus type: type 2 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 use: without joint terminal attack controller use Diabetes mellitus complication status: with kidney complications Diabetes mellitus complication detail: with chronic kidney disease Chronic kidney disease stage: on chronic dialysis Qualified Code(s) : E11.22 - Type 2 diabetes mellitus with diabetic chronic kidney disease; N18.6 - End stage renal disease; Z99.2 - Dependence on renal dialysis (5) Diastolic CHF Code(s): I50.30 - UNSPECIFIED DIASTOLIC (CONGESTIVE) HEART FAILURE Qualifiers: Heart failure chronicity: acute on chronic Qualified Code(s): I50.33 - Acute on chronic diastolic (congestive) heart failure (6) Hypercholesterolemia Code(s): E78.00 - PURE HYPERCHOLESTEROLEMIA, UNSPECIFIED (7) Pericardial effusion Code(s): I31.3 - PERICARDIAL EFFUSION (NONINFLAMMATORY) Assessment/Plan 02/11/2018 Echo: Normal LV size and fxn, moderate pericardial effusion, mild- mod MR, severe TR, RVSP>60 04/09/2018 Echo: Normal LV and RV size and fxn, mod TR RVSP 40-50 mmHg, mild MR , small pericardial effusion < 1 cm 1. Acute on chronic diastolic heart failure with pulm HTN resolving 2. Hypertensive urgency 3. ESRD on HD 4. COPD 5. Type 2 DM 6. Hyperlipidemia 7. Pericardial effusion suspect uremic etiology resolving 8. Anemia, thrombocytopenia P:1. Volume removal via HD 2. Continue Norvasc 10 qd, Lopressor 50 bid, Crestor 20 qhs, hydralazine 10 tid with uptitration as hemodynamics tolerate 3. BD, O2 as needed
[2018-04-10] MEDS ORDERED: PREGABALIN 50 MG CAPSULE ONE ×2 (09:01→21:05)
[2018-04-10] MEDS ORDERED: PREGABALIN 100 MG CAPSULE ONE ×2 (09:01→21:05)
[2018-04-10] MEDS: SEVELAMER CARBONATE 800 MG TAB (FP) PO SCH ×3 (09:58→17:34)
[2018-04-10 10:00] LABS: ANISOCYTOSIS 0; MACROCYTOSIS 0; PLATELET ESTIMATE DECREASED; TARGET CELLS 1+
[2018-04-10] MEDS: amLODIPine BESYLATE 10 MG TABLET (FP) PO SCH (10:11)
[2018-04-10] MEDS: FLUTICASONE/SALMETEROL 100 MCG/50 MCG DISKUS IH SCH ×2 (10:12→22:30)
[2018-04-10] MEDS: METOPROLOL TARTRATE 50 MG TABLET (FP) PO SCH ×2 (10:12→22:30)
[2018-04-10] MEDS: PREGABALIN 100 MG, PREGABALIN 50 MG PO SCH ×2 (10:12→22:30)
--- NOTE | 2018-04-10 12:19 | DS ---
Physical Examination Vital Signs: Vital Signs Temperature 98 F 04/10/18 10:00 Pulse Rate 76 04/10/18 10:00 Respiratory Rate 20 04/10/18 10:00 Blood Pressure 165/77 04/10/18 10:00 O2 Sat by Pulse Oximetry (%) 97 04/10/18 09:00 Labs: CBC, BMP 04/10/18 05:30 04/10/18 06:00 Discharge Summary Reason For Visit: ACUTE PULMONARY EDEMA Current Active Problems Acute pulmonary edema (Acute) Hypertensive urgency (Acute) Condition: Stable - Instructions Diet, Activity, Other Instructions: see your pmd/renal in 2-3 days - Home Medications Comprehensive Discharge Medication List: Ambulatory Orders Acetaminophen W/ Codeine #3 [Tylenol # 3 -] 1 tab PO TID 04/08/18 Amlodipine Besylate 10 mg PO DAILY 04/08/18 Docusate Sodium 100 mg PO BID 04/08/18 Glipizide 10 mg PO BID 04/08/18 Metoprolol Tartrate 50 mg PO BID 04/08/18 Pregabalin [Lyrica -] 150 mg PO BID 04/08/18 Rosuvastatin [Crestor -] 20 mg PO HS 04/08/18 Salmeterol/Fluticasone [Advair 100Mcg/50Mcg -] 1 puff IH BID 04/08/18 Sevelamer Carbonate [Renvela -] 800 mg PO TID 04/08/18 Ventolin HFA Inhaler - 2 puff IH QID 04/08/18 dc
--- NOTE | 2018-04-10 16:32 | PN ---
Progress Note, Physician History of Present Illness: Pt seen and examined at bedside. She is still short of breath. She tolerated HD last night. She did require bipap. - Current Medication List Current Medications: Active Medications Albuterol Sulfate (Ventolin Hfa Inhaler -) 2 puff IH Q4H PRN PRN Reason: SHORT OF BREATH/WHEEZING Amlodipine Besylate (Norvasc -) 10 mg PO DAILY [facility] Last Admin: 04/10/18 10:11 Dose: 10 mg Glipizide (Glucotrol -) 10 mg PO BIDI [facility] Last Admin: 04/10/18 06:50 Dose: 10 mg Hydralazine HCl (Apresoline -) 10 mg PO TID [facility] Last Admin: 04/10/18 13:10 Dose: 10 mg Sodium Chloride (Normal Saline -) 250 mls @ 3,000 mls/hr IV PRN PRN PRN Reason: Hypotension during Dialysis Stop: 04/10/18 19:15 Metoprolol Tartrate (Lopressor -) 50 mg PO BID [facility] Last Admin: 04/10/18 10:12 Dose: 50 mg Pregabalin 100 mg/ Pregabalin (50 mg) 150 mg PO BID [facility] Last Admin: 04/10/18 10:12 Dose: 150 mg Rosuvastatin Calcium (Crestor -) 20 mg PO HS [facility] Last Admin: 04/09/18 23:35 Dose: 20 mg Fluticasone/Salmeterol (Advair 100mcg/50mcg -) 1 puff IH BID [facility] Last Admin: 04/10/18 10:12 Dose: 1 puff Sevelamer Carbonate (Renvela -) 800 mg PO TIDCM [facility] Last Admin: 04/10/18 12:22 Dose: Not Given - Objective Vital Signs: Vital Signs Temperature 98.2 F 04/10/18 14:15 Pulse Rate 77 04/10/18 14:15 Respiratory Rate 20 04/10/18 14:15 Blood Pressure 149/93 04/10/18 14:15 O2 Sat by Pulse Oximetry (%) 97 04/10/18 09:00 Constitutional: Yes: Calm Eyes: Yes: Conjunctiva Clear HENT: Yes: Atraumatic Cardiovascular: Yes: S1, S2 Respiratory: Yes: On Nasal O2 Gastrointestinal: Yes: Soft Genitourinary: Yes: WNL Musculoskeletal: Yes: WNL Edema: Yes Edema: LLE: Trace, RLE: Trace Neurological: Yes: Oriented Psychiatric: Yes: Oriented Labs: CBC, BMP 04/10/18 05:30 04/10/18 06:00 INR, PTT INR 0.89 (0.83-1.09) 04/08/18 15:26 Problem List - Problems (1) Hypertensive urgency Code(s): I16.0 - HYPERTENSIVE URGENCY (2) ESRD (end stage renal disease) Code(s): N18.6 - END STAGE RENAL DISEASE (3) Pericardial effusion Code(s): I31.3 - PERICARDIAL EFFUSION (NONINFLAMMATORY) Assessment/Plan Current Medications Generic Name Dose Route Start Last Admin Trade Name Freq PRN Reason Stop Dose Admin Albuterol Sulfate 2 puff 04/08/18 21:34 Ventolin Hfa Inhaler - IH Q4H PRN SHORT OF BREATH/WHEEZING Amlodipine Besylate 10 mg 04/09/18 10:00 04/10/18 10:11 Norvasc - PO 10 mg DAILY [facility] Administration Glipizide 10 mg 04/09/18 07:00 04/10/18 06:50 Glucotrol - PO 10 mg BIDI [facility] Administration Hydralazine HCl 10 mg 04/10/18 06:00 04/10/18 13:10 Apresoline - PO 10 mg TID [facility] Administration Sodium Chloride 250 mls @ 3,000 mls/hr 04/09/18 19:16 Normal Saline - IV 04/10/18 19:15 PRN PRN Hypotension during Dialysis Metoprolol Tartrate 50 mg 04/08/18 22:00 04/10/18 10:12 Lopressor - PO 50 mg BID [facility] Administration Pregabalin 100 mg/ Pregabalin 150 mg 04/08/18 22:00 04/10/18 10:12 50 mg PO 150 mg BID [facility] Administration Rosuvastatin Calcium 20 mg 04/08/18 22:00 04/09/18 23:35 Crestor - PO 20 mg HS [facility] Administration Fluticasone/Salmeterol 1 puff 04/08/18 22:00 04/10/18 10:12 Advair 100mcg/50mcg - IH 1 puff BID [facility] Administration Sevelamer Carbonate 800 mg 04/09/18 08:00 04/10/18 12:22 Renvela - PO Not Given TIDCM [facility] Impression 1. ESRD 2. HTN 3. HLD 4. COPD 5. DM 6. pos heb b core 7. abd pain 8. vomiting 9. anemia 10. pericardial effusion Plan - HD tomorrow - do not discharge today - cont oxygen - pt does have significan underlying copd - discussed with family - renal diet - will follow Dr Reis
[2018-04-10] MEDS ORDERED: DEXTROSE 50%-WATER - 25 GM/50 ML VIAL ONE (17:17)
--- NOTE | 2018-04-10 17:29 | PN ---
Progress Note, Physician - Current Medication List Current Medications: Active Medications Albuterol Sulfate (Ventolin Hfa Inhaler -) 2 puff IH Q4H PRN PRN Reason: SHORT OF BREATH/WHEEZING Amlodipine Besylate (Norvasc -) 10 mg PO DAILY [facility] Epoetin Nnamdi (Procrit -) 10,000 unit IVPUSH ONCE ONE Stop: 04/11/18 16:35 Glipizide (Glucotrol -) 10 mg PO BIDI [facility] Last Admin: 04/10/18 06:50 Dose: 10 mg Hydralazine HCl (Apresoline -) 25 mg PO BID [facility] Sodium Chloride (Normal Saline -) 250 mls @ 3,000 mls/hr IV PRN PRN PRN Reason: Hypotension during Dialysis Stop: 04/10/18 19:15 Sodium Chloride (Normal Saline -) 250 mls @ 3,000 mls/hr IV PRN PRN PRN Reason: Hypotension during Dialysis Stop: 04/11/18 16:34 Metoprolol Tartrate (Lopressor -) 50 mg PO BID [facility] Last Admin: 04/10/18 10:12 Dose: 50 mg Pregabalin 100 mg/ Pregabalin (50 mg) 150 mg PO BID [facility] Last Admin: 04/10/18 10:12 Dose: 150 mg Rosuvastatin Calcium (Crestor -) 20 mg PO HS [facility] Last Admin: 04/09/18 23:35 Dose: 20 mg Fluticasone/Salmeterol (Advair 100mcg/50mcg -) 1 puff IH BID [facility] Last Admin: 04/10/18 10:12 Dose: 1 puff Sevelamer Carbonate (Renvela -) 800 mg PO TIDCM [facility] Last Admin: 04/10/18 12:22 Dose: Not Given - Objective Vital Signs: Vital Signs Temperature 98.2 F 04/10/18 14:15 Pulse Rate 77 04/10/18 14:15 Respiratory Rate 20 04/10/18 14:15 Blood Pressure 149/93 04/10/18 14:15 O2 Sat by Pulse Oximetry (%) 97 04/10/18 09:00 Constitutional: Yes: No Distress HENT: Yes: Atraumatic Neck: Yes: Supple Cardiovascular: Yes: Regular Rate and Rhythm Respiratory: Yes: Rhonchi Gastrointestinal: Yes: Normal Bowel Sounds Extremities: Yes: WNL Edema: No Peripheral Pulses WNL: Yes Neurological: Yes: Alert, Oriented Labs: CBC, BMP 04/10/18 05:30 04/10/18 06:00 INR, PTT INR 0.89 (0.83-1.09) 04/08/18 15:26 Problem List - Problems (1) Acute pulmonary edema Code(s): J81.0 - ACUTE PULMONARY EDEMA (2) ESRD (end stage renal disease) Assessment/Plan: for hd Code(s): N18.6 - END STAGE RENAL DISEASE (3) Chronic kidney disease Code(s): N18.9 - CHRONIC KIDNEY DISEASE, UNSPECIFIED (4) Diabetes Assessment/Plan: on meds stable monitor bs Code(s): E11.9 - TYPE 2 DIABETES MELLITUS WITHOUT COMPLICATIONS Qualifiers: Diabetes mellitus type: type 2 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 use: without retirement use Diabetes mellitus complication status: with kidney complications Diabetes mellitus complication detail: with chronic kidney disease Chronic kidney disease stage: on chronic dialysis Qualified Code(s) : E11.22 - Type 2 diabetes mellitus with diabetic chronic kidney disease; N18.6 - End stage renal disease; Z99.2 - Dependence on renal dialysis (5) Diastolic CHF Assessment/Plan: echo done cardio on board on meds Code(s): I50.30 - UNSPECIFIED DIASTOLIC (CONGESTIVE) HEART FAILURE Qualifiers: Heart failure chronicity: acute on chronic Qualified Code(s): I50.33 - Acute on chronic diastolic (congestive) heart failure (6) Hypercholesterolemia Assessment/Plan: on meds Code(s): E78.00 - PURE HYPERCHOLESTEROLEMIA, UNSPECIFIED
[2018-04-10] MEDS ORDERED: DEXTROSE 50%-WATER - 25 GM/50 ML VIAL IVPUSH ONE ×2 (18:00→23:45)
[2018-04-10] MEDS ORDERED: hydrALAZINE HCL 25 MG TABLET (FP) PO SCH (22:00)
[2018-04-10] MEDS: ROSUVASTATIN CA 20 MG TABLET (FP) PO SCH (22:30)
[2018-04-10] MEDS ORDERED: DEXTROSE 50%-WATER 25 GM/50 ML DISP.SYRIN ONE (22:52)
[2018-04-11] MEDS ORDERED: DEXTROSE 50%-WATER 25 GM/50 ML DISP.SYRIN ONE (05:41)
[2018-04-11] MEDS ORDERED: DEXTROSE 50%-WATER - 25 GM/50 ML VIAL IVPUSH ONE (06:15)
--- NOTE | 2018-04-11 06:49 | PN ---
Progress Note (short form) - Note Progress Note: Chief Complaint: Events noted, notes reviewed, confused and disoriented self D/ C monitor, mild respiratory distress, denies any chest pain, on HD History of Present Illness: Seen and examined on telemetry. Events noted, notes reviewed, confused and disoriented self D/C monitor, mild respiratory distress, denies any chest pain, on HD Echocardiography dated 02/11/2018 revealed normal LV size and function, moderate pericardial effusion, mild-moderate MR, severe TR, RVSP>60 Echocardiography dated 04/09/2018 revealed normal LV and RV size and function, moderate TR with RVSP 40-50 mmHg, mild MR, small pericardial effusion < 1 cm Current Medications: Current Medications Albuterol Sulfate (Ventolin Hfa Inhaler -) 2 puff IH Q4H PRN PRN Reason: SHORT OF BREATH/WHEEZING Amlodipine Besylate (Norvasc -) 10 mg PO DAILY [facility] Epoetin Nnamdi (Procrit -) 10,000 unit IVPUSH ONCE ONE Stop: 04/11/18 09:01 Hydralazine HCl (Apresoline -) 25 mg PO BID [facility] Last Admin: 04/10/18 22:30 Dose: 25 mg Sodium Chloride (Normal Saline -) 250 mls @ 3,000 mls/hr IV PRN PRN PRN Reason: Hypotension during Dialysis Stop: 04/12/18 07:59 Metoprolol Tartrate (Lopressor -) 50 mg PO BID [facility] Last Admin: 04/10/18 22:30 Dose: 50 mg Pregabalin 100 mg/ Pregabalin (50 mg) 150 mg PO BID [facility] Last Admin: 04/10/18 22:30 Dose: 150 mg Rosuvastatin Calcium (Crestor -) 20 mg PO HS [facility] Last Admin: 04/10/18 22:30 Dose: 20 mg Fluticasone/Salmeterol (Advair 100mcg/50mcg -) 1 puff IH BID [facility] Last Admin: 04/10/18 22:30 Dose: 1 puff Sevelamer Carbonate (Renvela -) 800 mg PO TIDCM [facility] Last Admin: 04/10/18 17:34 Dose: Not Given Review of Systems Constitutional: denies Chills or Fever Respiratory: denies Cough or Sputum Production Cardiovascular: As noted above Gastrointestinal: denies Nausea, Vomiting, Diarrhea, Constipation or Abdominal Pain Genitourinary: denies Frequency or Urgency Musculoskeletal: No symptoms reported - Objective Vital Signs: Last Vital Signs Temp Pulse Resp BP Pulse Ox 98.2 F 84 20 154/80 95 04/11/18 06:00 04/11/18 06:00 04/11/18 06:00 04/11/18 06:00 04/10/18 19:35 Intake & Output 04/08/18 04/09/18 04/10/18 04/11/18 23:59 23:59 23:59 23:59 Intake Total 20 60 Balance 20 60 Weight 130 lb Neck: Supple Negative JVD No bruit Respiratory: Diminished breath sounds at the bases Cardiovascular: S1, S2 Regular Rate Rhythm Gastrointestinal: Soft Benign Normal Bowel Sounds Ext: Negative Edema Labs: CBC, BMP 04/10/18 05:30 04/10/18 19:00 Assessment/Plan ASSESSMENT: 1. Acute on chronic class II-III NYHA classification diastolic heart failure, resolving 2. CAD/coronary artery calcification on CT scan of the chest 05/05/2017 with no clinical angina pectoris 3. Hypertensive urgency, resolved 3. DM 4. Hypercholesterolemia 5. Pericardial effusion suspect uremic etiology resolving 6. 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 COPD 8. ESRD on HD 9. Anemia, thrombocytopenia PLAN: 1. HD as per renal service 2. Continue Norvasc 3. Continue Lopressor 4. Add ACEI or ARBS unless contraindicated 5. D/C Hydralazine 6. Continue Crestor 7. May transfer to floor care from the cardiovascular point of view Karen Garcia MD
[2018-04-11] MEDS ORDERED: SODIUM CHLORIDE 250 ML IV PRN (08:00)
[2018-04-11] MEDS: SEVELAMER CARBONATE 800 MG TAB (FP) PO SCH ×2 (08:30→12:06)
[2018-04-11 08:41] LABS: HEMATOCRIT 27.5 % (32.4-45.2); MCHC 32.9 g/dl (32.0-36.0); MEAN PLT VOLUME 8.9 fl (7.5-11.1); PLATELET COUNT 94 K/MM3 (134-434); RBC 3.23 M/mm3 (3.60-5.2); RDW 19.2 % (11.6-15.6); WHITE BLOOD COUNT 4.3 K/mm3 (4.0-10.0)
[2018-04-11 08:55] LABS: ANION GAP 4 MMOL/L (8-16); BLOOD UREA NITROGEN 24 mg/dL (7-18); CALCIUM 7.9 mg/dL (8.5-10.1); CHLORIDE 103 mmol/L (98-107); CO2 33 mmol/L (21-32); CREATININE 3.9 mg/dL (0.55-1.3); GLUCOSE,RANDOM 54 mg/dL (74-106); POTASSIUM 3.8 mmol/L (3.5-5.1); SODIUM 140 mmol/L (136-145)
[2018-04-11] MEDS ORDERED: EPOETIN ALFA 10,000 UNIT/1 ML VIAL IVPUSH ONE (09:00)
[2018-04-11] MEDS ORDERED: VALSARTAN 80 MG TABLET (UD) PO SCH (10:00)
[2018-04-11] MEDS ORDERED: amLODIPine BESYLATE 10 MG TABLET (FP) PO SCH (10:00)
[2018-04-11 11:14] LABS: HBSAG SCREEN Negative (Negative); HEP A AB, IGM Negative (Negative); HEP B CORE AB, TOT Positive (Negative)
[2018-04-11] MEDS ORDERED: PREGABALIN 50 MG CAPSULE ONE (11:16)
[2018-04-11] MEDS ORDERED: PREGABALIN 100 MG CAPSULE ONE (11:17)
[2018-04-11] MEDS: PREGABALIN 100 MG, PREGABALIN 50 MG PO SCH (12:06)
[2018-04-11] MEDS: FLUTICASONE/SALMETEROL 100 MCG/50 MCG DISKUS IH SCH (12:06)
[2018-04-11] MEDS: METOPROLOL TARTRATE 50 MG TABLET (FP) PO SCH (12:07)
--- NOTE | 2018-04-11 14:10 | PN ---
Progress Note (short form) - Note Progress Note: JOLLY I saw this patient in the dialysis unit and sent her to the [facility] she was very dyspneic and had JVD today she is much better for dialysis today Last Vital Signs Temp Pulse Resp BP Pulse Ox 98.5 F 91 H 18 119/62 99 04/11/18 07:35 04/11/18 11:00 04/11/18 11:00 04/11/18 11:00 04/11/18 09:56 lungs clear cvs s1s2 rr abd soft ext no edema neuro alert Current Medications Generic Name Dose Route Start Last Admin Trade Name Freq PRN Reason Stop Dose Admin Albuterol Sulfate 2 puff 04/08/18 21:34 Ventolin Hfa Inhaler - IH Q4H PRN SHORT OF BREATH/WHEEZING Amlodipine Besylate 10 mg 04/11/18 10:00 04/11/18 12:06 Norvasc - PO 10 mg DAILY [facility] Administration Sodium Chloride 250 mls @ 3,000 mls/hr 04/11/18 08:00 Normal Saline - IV 04/12/18 07:59 PRN PRN Hypotension during Dialysis Metoprolol Tartrate 50 mg 04/08/18 22:00 04/11/18 12:07 Lopressor - PO 50 mg BID [facility] Administration Pregabalin 100 mg/ Pregabalin 150 mg 04/08/18 22:00 04/11/18 12:06 50 mg PO 150 mg BID [facility] Administration Rosuvastatin Calcium 20 mg 04/08/18 22:00 04/10/18 22:30 Crestor - PO 20 mg HS [facility] Administration Fluticasone/Salmeterol 1 puff 04/08/18 22:00 04/11/18 12:06 Advair 100mcg/50mcg - IH 1 puff BID [facility] Administration Sevelamer Carbonate 800 mg 04/09/18 08:00 04/11/18 12:06 Renvela - PO 800 mg TIDCM [facility] Administration Valsartan 80 mg 04/11/18 10:00 04/11/18 12:07 Diovan - PO 80 mg DAILY [facility] Administration CBC, BMP 04/11/18 07:30 04/11/18 07:30 Impression 1. ESRD 2. HTN 3. HLD 4. COPD 5. DM 6. pos heb b core 7. abd pain 8. vomiting 9. anemia 10. pericardial effusion Plan I think she sounded more like a copd exacerbation on admission than chf though could have been both for hd today continue current meds and oxygen MV
[2018-04-11 14:37] VITALS: BP 129/56; PULSE 78; TEMP 97.7
--- NOTE | 2018-04-11 16:35 | DS ---
Physical Examination Vital Signs: Vital Signs Temperature 97.7 F 04/11/18 14:00 Pulse Rate 78 04/11/18 14:00 Respiratory Rate 22 H 04/11/18 14:00 Blood Pressure 129/56 L 04/11/18 14:00 O2 Sat by Pulse Oximetry (%) 99 04/11/18 09:56 Constitutional: Yes: No Distress HENT: Yes: Atraumatic Neck: Yes: Supple Cardiovascular: Yes: Regular Rate and Rhythm Respiratory: Yes: CTA Bilaterally Gastrointestinal: Yes: Normal Bowel Sounds Extremities: Yes: WNL Edema: No Neurological: Yes: Alert, Oriented Labs: CBC, BMP 04/11/18 07:30 04/11/18 07:30 Discharge Summary Reason For Visit: ACUTE PULMONARY EDEMA Current Active Problems Acute pulmonary edema (Acute) Hypertensive urgency (Acute) Condition: Stable - Instructions Diet, Activity, Other Instructions: see your pmd/renal in 2-3 days patients blood glucose have been extremely low, monitor at home stop glipizide discuss with your pmd - Home Medications Comprehensive Discharge Medication List: Ambulatory Orders Acetaminophen W/ Codeine #3 [Tylenol # 3 -] 1 tab PO TID 04/08/18 Amlodipine Besylate 10 mg PO DAILY 04/08/18 Docusate Sodium 100 mg PO BID 04/08/18 Metoprolol Tartrate 50 mg PO BID 04/08/18 Pregabalin [Lyrica -] 150 mg PO BID 04/08/18 Rosuvastatin [Crestor -] 20 mg PO HS 04/08/18 Salmeterol/Fluticasone [Advair 100Mcg/50Mcg -] 1 puff IH BID 04/08/18 Sevelamer Carbonate [Renvela -] 800 mg PO TID 04/08/18 Ventolin HFA Inhaler - 2 puff IH QID 04/08/18 oh home
== END 2018-04-11 17:23 | disposition home or self-care (01) | DRG 291 ==
LOC: JER 14:29 → JERBED 16:39 → INTOOBSV 16:39 → J4W 04-09 09:19 → OBSVTOIN 04-10 14:46
PROVIDERS: ADMIT Internal Medicine; ATTEND Internal Medicine
PROC: 5A1D70Z Performance of Urinary Filtration, Intermittent, Less than 6 Hours Per Day (ICD-10-PCS; principal; 2018-04-09)
DX: I13.2 Hypertensive heart and chronic kidney disease with heart failure and with stage 5 chronic kidney disease, or end stage renal disease (principal); N18.6 End stage renal disease; I50.33 Acute on chronic diastolic (congestive) heart failure; I31.3 Pericardial effusion (noninflammatory); I16.0 Hypertensive urgency; J44.9 Chronic obstructive pulmonary disease, unspecified; E11.22 Type 2 diabetes mellitus with diabetic chronic kidney disease; D64.9 Anemia, unspecified; E78.5 Hyperlipidemia, unspecified; D69.6 Thrombocytopenia, unspecified; I25.10 Atherosclerotic heart disease of native coronary artery without angina pectoris; I27.20 Pulmonary hypertension, unspecified; Z99.2 Dependence on renal dialysis
CPT/HCPCS: 36415; 71045-TC-FY; 80048; 80053; 80061; 82550; 82565; 82947; 82962; 83721; 83735; 83880; 84484; 84520; 85025; 85027; 85610; 86704; 86706; 86708; 86803; 87340; 93005; 93010; 93306-TC; 94660; 99285-25; G0378; J0885

== ENCOUNTER 2018-04-29 13:09 | Inpatient (IN) | payer OTHER ==
--- NOTE | 2018-04-29 13:27 | PDOC ---
History of Present Illness - General Chief Complaint: Shortness of Breath Stated Complaint: DIFFICULTY BREATHING Time Seen by Provider: 04/29/18 13:27 History Source: Patient, Care Provider Exam Limitations: Language Barrier - History of Present Illness Initial Comments: 04/29/18 13:51 88 year old female with PMH ESRD on HD (M/W/F), CHF, COPD, asthma, GERD, HTN, DM , on home O2 (2L) brought to ED via ambulance from Dialysis center for acute SOB. Pt stated she received 1.5 hours of dialysis, then became acutely short of breath with chest pain. She stated when she was removed from the dialysis machine her symptoms resolved. She denied fever, chills, coughing, nausea, vomiting, diarrhea, lower extremity swelling. Nephro: Dr. Reis Past History - Past Medical History Allergies/Adverse Reactions: Allergies Allergy/AdvReac Type Severity Reaction Status Date / Time egg AdvReac Vomiting Verified 04/29/18 13:24 Home Medications: Ambulatory Orders Acetaminophen W/ Codeine #3 [Tylenol # 3 -] 1 tab PO TID 04/08/18 Amlodipine Besylate 10 mg PO DAILY 04/08/18 Docusate Sodium 100 mg PO BID 04/08/18 Metoprolol Tartrate 50 mg PO BID 04/08/18 Pregabalin [Lyrica -] 150 mg PO BID 04/08/18 Rosuvastatin [Crestor -] 20 mg PO HS 04/08/18 Salmeterol/Fluticasone [Advair 100Mcg/50Mcg -] 1 puff IH BID 04/08/18 Sevelamer Carbonate [Renvela -] 800 mg PO TID 04/08/18 Ventolin HFA Inhaler - 2 puff IH QID 04/08/18 Asthma: Yes COPD: Yes (home o2) CHF: Yes Diabetes: Yes GI Disorders: Yes (GERD) HTN: Yes Kidney Stones: Yes - Immunization History Immunization Up to Date: Yes - Suicide/Smoking/Psychosocial Hx Smoking History: Former smoker Have you smoked in the past 12 months: No Number of Cigarettes Smoked Daily: 0 Cigars Per Day: 0 Hx Alcohol Use: No Drug/Substance Use Hx: No Substance Use Type: None Hx Substance Use Treatment: No Review of Systems - Review of Systems Able to Perform ROS?: Yes Comments:: 04/29/18 13:53 General: denied fever, chills, night sweats, generalized weakness. HEENT: denied sore throat, rhinorrhea, ear pain. Heart: admitted to chest pain. denied palpitations, syncope, diaphoresis. Respiratory: admitted to shortness of breath. denied cough, sputum production, hemoptysis. Abdomen: denied abdominal pain, nausea, vomiting, diarrhea, constipation, blood in stool. : denied dysuria, increased urinary frequency, hematuria, urinary incontinence , flank pain. Back: denied back pain. Musculoskeletal: denied joint pain, muscle pain, joint swelling. Neurological: denied headache, dizziness, numbness, tingling, weakness. Skin: denied rash, laceration, abrasion. *Physical Exam - Physical Exam Comments: 04/29/18 13:55 Constitutional: Well-nourished, Well-developed, appearing stated age. HEENT: head is normocephalic, atraumatic. EOMI. PERRLA. Neck: supple. Full ROM. Heart: regular rhythm. no murmurs, rubs or gallops. Lungs: bibasilar crackles, R>L. no wheezing. Abdomen: soft, nontender. normal bowel sounds. no rebound, guarding, masses. Extremities: Peripheral pulses intact. No lower extremity edema. Neurological: CN 2-12 grossly intact. Moves all four extremities. Psych: awake, alert, oriented x3. Follows commands. Answers questions appropriately. ED Treatment Course - LABORATORY CBC & Chemistry Diagram: 04/29/18 17:28 04/29/18 13:42 Medical Decision Making - Medical Decision Making 04/29/18 13:56 88 year old female with above PMH BIBA to ED for acute shortness of breath and chest pain while at dialysis today. Dr. Reis, nephro, at bedside upon presentation. Stated pt has history of SOB with dialysis. Initial Vital Signs Temp Pulse Resp BP Pulse Ox 97.5 F L 84 20 140/65 100 04/29/18 13:25 04/29/18 13:25 04/29/18 13:25 04/29/18 13:25 04/29/18 13:25 Afebrile. No tachycardia. No tachypnea. Mild systolic hypertension. No hypoxia on 4L O2. Labs ordered: CBC, CMP, BNP, troponin, PT/PTT, Mag, Phos Imaging ordered: CXR Medications ordered: none EKG performed at 1331: rate 83, regular rhythm, normal axis, normal intervals, no acute ST changes, LVH. CBC WBC 6.1 K/mm3 (4.0-10.0) 04/29/18 13:42 RBC 4.03 M/mm3 (3.60-5.2) 04/29/18 13:42 Hgb 11.5 GM/dL (10.7-15.3) 04/29/18 13:42 Hct 35.0 % (32.4-45.2) D 04/29/18 13:42 MCV 86.7 fl (80-96) 04/29/18 13:42 MCH 28.6 pg (25.7-33.7) 04/29/18 13:42 MCHC 33.0 g/dl (32.0-36.0) 04/29/18 13:42 RDW 18.2 % (11.6-15.6) H 04/29/18 13:42 Absolute Neuts (auto) 5.2 K/mm3 (1.5-8.0) 04/29/18 13:42 Neutrophils % 84.8 % (42.8-82.8) H 04/29/18 13:42 Lymphocytes % 4.0 % (8-40) L D 04/29/18 13:42 Monocytes % 9.9 % (3.8-10.2) 04/29/18 13:42 Eosinophils % 0.9 % (0-4.5) 04/29/18 13:42 Basophils % 0.4 % (0-2.0) 04/29/18 13:42 Nucleated RBC % 0 % (0-0) 04/29/18 13:42 No leukocytosis. No anemia. Thrombocytopenia - Plt 27 - Hx of thrombocytopenia, but usually higher (60s, 70s, 90s). 04/29/18 14:49 CMP Sodium 137 mmol/L (136-145) 04/29/18 13:42 Potassium 3.9 mmol/L (3.5-5.1) 04/29/18 13:42 Chloride 103 mmol/L (98-107) 04/29/18 13:42 Carbon Dioxide 31 mmol/L (21-32) 04/29/18 13:42 Anion Gap 4 MMOL/L (8-16) L 04/29/18 13:42 BUN 32 mg/dL (7-18) H 04/29/18 13:42 Creatinine 5.6 mg/dL (0.55-1.3) H 04/29/18 13:42 Creat Clearance w eGFR 7.17 (>60) 04/29/18 13:42 Random Glucose 203 mg/dL (74-106) H 04/29/18 13:42 Calcium 8.5 mg/dL (8.5-10.1) 04/29/18 13:42 Phosphorus 1.9 mg/dL (2.5-4.9) L 04/29/18 13:42 Magnesium 2.0 mg/dL (1.8-2.4) 04/29/18 13:42 Total Bilirubin 0.9 mg/dL (0.2-1) 04/29/18 13:42 AST 13 U/L (15-37) L 04/29/18 13:42 ALT 12 U/L (13-61) L 04/29/18 13:42 Alkaline Phosphatase 53 U/L (45-117) 04/29/18 13:42 Troponin I < 0.02 ng/ml (0.00-0.05) 04/29/18 13:42 B-Natriuretic Peptide 1611.0 pg/ml (5-450) H 04/29/18 13:42 Total Protein 6.8 g/dl (6.4-8.2) 04/29/18 13:42 Albumin 3.7 g/dl (3.4-5.0) 04/29/18 13:42 Hypophosphatemia. No other electrolyte abnormalities. CKD No transaminitis. First troponin normal. Mild elevation of BNP, would expect higher value for acute CHF exacerbation. Dr. Reis paged for recs. 04/29/18 15:35 Dr. Reis recs admission for new thrombocytopenia, recs hem/onc consult. - Nonemergency consultation to be done by admitting team Medications ordered: 2 Phos PO packets 04/29/18 15:53 I spoke with IM resident Dr. Burnette about the case, pt admitted to Dr. Myers 's service. Pending admission. Pending official CXR report. 04/29/18 17:57 Official CXR report: large heart, sclerotic knob, prominent gadiel, scarring in the right upper lobe and some atelectatic changes at bases. since 04/08/2018 the retrocardiac area appears better aerated. *DC/Admit/Observation/Transfer Diagnosis at time of Disposition: Thrombocytopenia, Shortness of breath, History of end stage renal disease, Hypophosphatemia - Discharge Dispostion Condition at time of disposition: Stable Decision to Admit order: Yes - Referrals - Patient Instructions - Post Discharge Activity
[2018-04-29 13:55] LABS: BASO % 0.4 % (0-2.0); EOS % 0.9 % (0-4.5); HEMOGLOBIN 11.5 GM/dL (10.7-15.3); MCH 28.6 pg (25.7-33.7); MEAN CELL VOLUME 86.7 fl (80-96); MONO % 9.9 % (3.8-10.2); NEUT % 84.8 % (42.8-82.8); RBC 4.03 M/mm3 (3.60-5.2); RDW 18.2 % (11.6-15.6); WHITE BLOOD COUNT 6.1 K/mm3 (4.0-10.0)
[2018-04-29 14:31] LABS: ALBUMIN 3.7 g/dl (3.4-5.0); ALK PHOS 53 U/L (45-117); ANION GAP 4 MMOL/L (8-16); BILIRUBIN,TOTAL 0.9 mg/dL (0.2-1); BLOOD UREA NITROGEN 32 mg/dL (7-18); CALCIUM 8.5 mg/dL (8.5-10.1); CHLORIDE 103 mmol/L (98-107); CO2 31 mmol/L (21-32); CREATININE 5.6 mg/dL (0.55-1.3); GLUCOSE,RANDOM 203 mg/dL (74-106); PHOSPHOROUS 1.9 mg/dL (2.5-4.9); POTASSIUM 3.9 mmol/L (3.5-5.1); SGOT/AST 13 U/L (15-37); SGPT/ALT 12 U/L (13-61); SODIUM 137 mmol/L (136-145); TOT PROT 6.8 g/dl (6.4-8.2)
[2018-04-29 14:44] LABS: INR 0.9 (0.83-1.09); PROTHROMBIN TIME (PATIENT) 10.6 SEC (9.7-13.0)
--- NOTE | 2018-04-29 14:44 | PDOC ---
Attending Attestation - HPI HPI: 04/29/18 15:41 The patient is a 88 year old female, with a significant past medical history of ESRD on HD (M/W/F), CHF, COPD, asthma, GERD, HTN, DM, on home O2 (2L) who presents to the emergency department who presents via ems from Dialysis center for acute onset of shortness of breath after receiving about 1.5 hours of dialysis. The patient denies chest pain, headache and dizziness. The patient denies fever , chills, nausea, vomit, diarrhea and constipation. The patient denies dysuria, frequency, urgency and hematuria. PCP - Dr. Garcia Nephro: Dr. Reis - Physicial Exam PE: 04/29/18 15:41 Constitutional: Well-nourished, Well-developed, appearing stated age. HEENT: head is normocephalic, atraumatic. EOMI. PERRLA. Neck: supple. Full ROM. Heart: regular rhythm. no murmurs, rubs or gallops. Lungs: (+)bibasilar crackles(R>L). no wheezing. Abdomen: soft, nontender. normal bowel sounds. no rebound, guarding, masses. Extremities: Peripheral pulses intact. No lower extremity edema. Neurological: CN 2-12 grossly intact. Moves all four extremities. Psych: awake, alert, oriented x3. Follows commands. Answers questions appropriately. <Nafisa Arellano - Last Filed: 04/29/18 16:20> - Resident Resident Name: Gena Maciel - ED Attending Attestation I have performed the following: I have examined & evaluated the patient, The case was reviewed & discussed with the resident, I agree w/resident's findings & plan, Exceptions are as noted - Medical Decision Making 04/30/18 08:30 Laboratory Tests 04/29/18 04/29/18 04/29/18 13:42 13:42 13:42 WBC 6.1 Hgb 11.5 Hct 35.0 D Plt Count 27 L* D INR 0.90 Potassium 3.9 BUN 32 H Creatinine 5.6 H Troponin I < 0.02 B-Natriuretic Peptide 1611.0 H Pt platelets are low which is a new finding for her Will plan to admit for further assessment Pt trop negative No evidence of fluid overloading SOB has resolved since pt is off of HD machine Clinical impression: thrombocytopenia, initial presentation <Pattie Garcia - Last Filed: 04/30/18 08:32> Attestations - Attestations 04/29/18 15:41 Documentation prepared by Nafisa Arellano, acting as curator medical museum for Pattie Garcia MD <Nafisa Arellano - Last Filed: 04/29/18 16:20>
[2018-04-29 14:57] LABS: PLATELET ESTIMATE DECREASED
[2018-04-29 15:03] LABS: PLATELET COUNT 27 K/MM3 (134-434)
[2018-04-29] MEDS ORDERED: NAPH,MB-DB/K PH,MBDB POWDER PACKET PO ONE (15:35)
--- NOTE | 2018-04-29 16:38 | PN ---
Teaching Attending Note Name of Resident: Mayco Burnette ATTENDING PHYSICIAN STATEMENT I saw and evaluated the patient. I reviewed the resident's note and discussed the case with the resident. I agree with the resident's findings and plan as documented. SUBJECTIVE: Patient is a creol speaking lady from [facility]. was send ti ed. due to having low platelets. OBJECTIVE: Vital Signs Temperature 97.5 F L 04/29/18 13:25 Pulse Rate 84 04/29/18 13:25 Respiratory Rate 20 04/29/18 13:25 Blood Pressure 140/65 04/29/18 13:25 O2 Sat by Pulse Oximetry (%) 100 04/29/18 13:25 GENERAL: NAD, awake, alert, and fully oriented HEENT: Nc/AT, EOMI, MARZENA, sclera anicteric, no mucosal ulcerations, MMM, no JVD noted LUNGS: CTA bilaterally. No wheezes, and no crackles. No accessory muscle use. On 2.5L HEART: RRR, normal S1 and S2 without murmur ABDOMEN: Soft, NT/ND, normoactive bowel sounds, no guarding, No hepatomegaly per palpation, no splenomegaly per palpation. MUSCULOSKELETAL: Contracted lower extremities, no CVA tenderness. EXTREMITIES: LUE AV fistula with palpable thrill, no signs of bleeding, bandages overlying without blood, 1+ pulses in other 3 limbs, warm, No calf tenderness. No peripheral edema. PSYCHIATRIC: Cooperative. Good eye contact. Appropriate mood and affect. SKIN: Warm, dry, no rashes or lesions noted including palpable purpura CBCD WBC 6.1 K/mm3 (4.0-10.0) 04/29/18 13:42 RBC 4.03 M/mm3 (3.60-5.2) 04/29/18 13:42 Hgb 11.5 GM/dL (10.7-15.3) 04/29/18 13:42 Hct 35.0 % (32.4-45.2) D 04/29/18 13:42 MCV 86.7 fl (80-96) 04/29/18 13:42 MCHC 33.0 g/dl (32.0-36.0) 04/29/18 13:42 RDW 18.2 % (11.6-15.6) H 04/29/18 13:42 Plt Count 27 K/MM3 (134-434) L* D 04/29/18 13:42 MPV 8.0 fl (7.5-11.1) D 04/29/18 13:42 CMP Sodium 137 mmol/L (136-145) 04/29/18 13:42 Potassium 3.9 mmol/L (3.5-5.1) 04/29/18 13:42 Chloride 103 mmol/L (98-107) 04/29/18 13:42 Carbon Dioxide 31 mmol/L (21-32) 04/29/18 13:42 Anion Gap 4 MMOL/L (8-16) L 04/29/18 13:42 BUN 32 mg/dL (7-18) H 04/29/18 13:42 Creatinine 5.6 mg/dL (0.55-1.3) H 04/29/18 13:42 Creat Clearance w eGFR 7.17 (>60) 04/29/18 13:42 Random Glucose 203 mg/dL (74-106) H 04/29/18 13:42 Calcium 8.5 mg/dL (8.5-10.1) 04/29/18 13:42 Total Bilirubin 0.9 mg/dL (0.2-1) 04/29/18 13:42 AST 13 U/L (15-37) L 04/29/18 13:42 ALT 12 U/L (13-61) L 04/29/18 13:42 Alkaline Phosphatase 53 U/L (45-117) 04/29/18 13:42 Total Protein 6.8 g/dl (6.4-8.2) 04/29/18 13:42 Albumin 3.7 g/dl (3.4-5.0) 04/29/18 13:42 CARDIAC ENZYMES Troponin I < 0.02 ng/ml (0.00-0.05) 04/29/18 13:42 Home Medications Medication Instructions Recorded Acetaminophen W/ Codeine #3 1 tab PO TID 04/08/18 [Tylenol # 3 -] Amlodipine Besylate 10 mg PO DAILY 04/08/18 Docusate Sodium 100 mg PO BID 04/08/18 Metoprolol Tartrate 50 mg PO BID 04/08/18 Pregabalin [Lyrica -] 150 mg PO BID 04/08/18 Rosuvastatin [Crestor -] 20 mg PO HS 04/08/18 Salmeterol/Fluticasone [Advair 1 puff IH BID 04/08/18 100Mcg/50Mcg -] Sevelamer Carbonate [Renvela -] 800 mg PO TID 04/08/18 Ventolin HFA Inhaler - 2 puff IH QID 04/08/18 ASSESSMENT AND PLAN: Patient is a 88yo creol speaking Female with PMHx of ESRD (M/W/F), 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 Patient was send to ED. for further care and was found to have low platelets of 27K. #Acute thrombocytopenia repeat level the same, will get HIT2 level since patient a dialysis patient and given HEPARIN, FOR CONSULT. FALL PRECAUTION, BED ALARM. #ESRD on HD , on the case. #Hypophosphatemia : patient is a dialysis patient. # hx of COPD (not in exacerbation)continue home meds. # Hx of CHF (not in exacerbation) # hx of HTN continue home meds. # hx of DM ss with coverage. DVT Px; SCDs patient is bedridden.
--- NOTE | 2018-04-29 16:40 | HP ---
CHIEF COMPLAINT: Shortness of breath during dialysis PCP: HISTORY OF PRESENT ILLNESS: *Pt is Creole-speaking and history obtained with assistance from daughter at bedside* 88yo F with h/o ESRD (M/W/F), ? CHF, COPD (2.5-3L 02 dependent), HTN, DM who presents today due to shortness of breath during her dialysis session. Pt was undergoing her routine dialysis session at [facility] dialysis when around the 1.5hr tyesha she developed shortness of breath. She reports she couldn't catch her breath and she admittedly became anxious. Pt reports that once the machine was stopped she started to feel better. She was sent here for further evaluation/investigation. In the ED she was incidentally found to have severe thrombocytopenia down to 27,000 (down from her usual 90,000). Pt denies having continuous bleeding her graft site as well as any other bleeding problems in the past. She denies any recent viral illness or sick contacts. Pt denies headaches, lightheadedness, blurry vision, cough, chest pain/discomfort. Pt reports being anuric and thus has no urinary symptoms to relay. Currently pt has improved breathing and only has complaint of generalized dull abdominal discomfort, however the pt reports having chronic constipation and not having a BM in 1 day. She reports taking Colace regularly, but sometimes will need to take extra. No nausea or vomiting Recent Travel: Denies PAST MEDICAL HISTORY: ESRD (M/W/F; 4hrs, heparin given during session, [facility]) COPD (2.5-3L baseline) ? CHF (last echo 04/09/18 - LV size/function normal, RV normal, Mild MR, Mod TR , RV pressures 40-50, Small pericardial effusion [<1cm]) HTN NIDDM PAST SURGICAL HISTORY: AV fistula creation Social History: Smoking: Denies Alcohol: Denies Drugs: Denies Wheelchair bound, lives with daughter (eldest) Family History: No history of bleeding disorders or vasculitis Allergies egg Adverse Reaction (Verified 04/29/18 13:24) Vomiting HOME MEDICATIONS: Home Medications Medication Instructions Recorded Acetaminophen W/ Codeine #3 1 tab PO TID 04/08/18 [Tylenol # 3 -] Amlodipine Besylate 10 mg PO DAILY 04/08/18 Docusate Sodium 100 mg PO BID 04/08/18 Metoprolol Tartrate 50 mg PO BID 04/08/18 Pregabalin [Lyrica -] 150 mg PO BID 04/08/18 Rosuvastatin [Crestor -] 20 mg PO HS 04/08/18 Salmeterol/Fluticasone [Advair 1 puff IH BID 04/08/18 100Mcg/50Mcg -] Sevelamer Carbonate [Renvela -] 800 mg PO TID 04/08/18 Ventolin HFA Inhaler - 2 puff IH QID 04/08/18 REVIEW OF SYSTEMS As per HPI PHYSICAL EXAMINATION Vital Signs - 24 hr 04/29/18 13:25 Temperature 97.5 F L Pulse Rate 84 Respiratory 20 Rate Blood Pressure 140/65 O2 Sat by Pulse 100 Oximetry (%) GENERAL: NAD, awake, alert, and fully oriented HEENT: Nc/AT, EOMI, MARZENA, sclera anicteric, no mucosal ulcerations, MMM, no JVD noted LUNGS: CTA bilaterally. No wheezes, and no crackles. No accessory muscle use. On baseline 2.5L HEART: RRR, normal S1 and S2 without murmur ABDOMEN: Soft, NT/ND, normoactive bowel sounds, no guarding, No hepatomegaly per palpation, no splenomegaly per palpation. MUSCULOSKELETAL: Contracted lower extremities, no CVA tenderness. EXTREMITIES: LUE AV fistula with palpable thrill, no signs of bleeding, bandages overlying without blood, 1+ pulses in other 3 limbs, warm, No calf tenderness. No peripheral edema. PSYCHIATRIC: Cooperative. Good eye contact. Appropriate mood and affect. SKIN: Warm, dry, no rashes or lesions noted including palpable purpura Laboratory Results 04/29/18 13:42 WBC 6.1 RBC 4.03 Hgb 11.5 Hct 35.0 D MCV 86.7 MCH 28.6 MCHC 33.0 RDW 18.2 H Plt Count 27 L* D MPV 8.0 D Absolute Neuts (auto) 5.2 Neutrophils % 84.8 H Lymphocytes % 4.0 L D Monocytes % 9.9 Eosinophils % 0.9 Basophils % 0.4 Nucleated RBC % 0 Platelet Estimate Decreased Platelet Comment Rare giant plts PT with INR 10.60 INR 0.9 PTT (Actin FS) 28.6 Sodium Potassium Chloride Carbon Dioxide Anion Gap BUN Creatinine Creat Clearance w eGFR Random Glucose Calcium Phosphorus Magnesium Total Bilirubin AST ALT Alkaline Phosphatase Troponin I B-Natriuretic Peptide Total Protein Albumin 04/29/18 13:42 WBC RBC Hgb Hct MCV MCH MCHC RDW Plt Count MPV Absolute Neuts (auto) Neutrophils % Lymphocytes % Monocytes % Eosinophils % Basophils % Nucleated RBC % Platelet Estimate Platelet Comment PT with INR INR PTT (Actin FS) Sodium 137 Potassium 3.9 Chloride 103 Carbon Dioxide 31 Anion Gap 4 L BUN 32 H Creatinine 5.6 H Creat Clearance w eGFR 7.17 Random Glucose 203 H Calcium 8.5 Phosphorus 1.9 L Magnesium 2.0 Total Bilirubin 0.9 AST 13 L ALT 12 L Alkaline Phosphatase 53 Troponin I < 0.02 B-Natriuretic Peptide 1611.0 H Total Protein 6.8 Albumin 3.7 ECG - NSR@83bpm, normal axis, delayed R-wave progression with evidence of LVH, no MARY KAY/STD, isolated Q-wave in Lead III without evidence of R-heart strain, no alternans, QTc 406ms ASSESSMENT/PLAN: Severe thrombocytopenia ESRD on dialysis Hypophosphatemia Shortness of breath COPD (not in exacerbation) CHF (not in exacerbation) HTN DM --Thrombocytopenia acutely lower than baselne (now 27,000 from 90,000's) --DDx includes HIT (heparin during dialysis sessions), ITP, lab error --Unlikely TTP/HUS due to lack of signs/symptoms --Unlikely vasculitis issue surfacing now --Rpt CBC stat --B12 and folate ordered --HIT antibody ordered --Monitor for signs of bleeding; currently none --Hematology consulted --Pt received 1.5/4 hr of dialysis today --Not acutely overloaded; not overly uremia, no potassium abnormalities --Nephrology consulted --Shortness of breath likely 2/2 to anxiety during dialysis sessions --Doubt COPD exacerbation; not fluid overloaded --Doubt PE due to lack of hypoxia (baseline 2.5-3L O2 unchanged and not tachycardic) --BGM ACHS; ISS --Hold oral glycemic control medications FEN: Fluids: Not indicated Electrolyte abnormalities: Hypophosphatemia (Na-K packet supplementation) Nutrition: Renal diabetic diet PPX: DVT - Mod risk; avoid prophylaxis due to severe thrombocytopenia GI - Not indicated Dispo: M/S obs Case discussed with Dr. Barrios and Dr. Chato Burnette, DO - IM PGY-2 Visit type - Emergency Visit Emergency Visit: Yes ED Registration Date: 04/29/18 Care time: The patient presented to the Emergency Department on the above date and was hospitalized for further evaluation of their emergent condition. - New Patient This patient is new to me today: Yes Date on this admission: 04/29/18 - Critical Care Critical Care patient: No
--- NOTE | 2018-04-29 16:52 | CONSULT ---
Consult Consult Specialty:: Nephrology Reason for Consultation:: ESRD - History of Present Illness Chief Complaint: dyspnea History of Present Illness: Pt is an 88 year old female with pmhx of ESRD, CHF, COPD, astham, HTN, and DM who was sent in from HD for SOB. She became short of breath at about an hour into HD. She was then anxious. She was taken off of the machine and given oxygen at which point she calmed down. She appears comfortable and denies shortness of breath at the moment. She denies fevers or chills. - History Source History Provided By: Patient, Family Member - Past Medical History Cardio/Vascular: Yes: HTN Pulmonary: Yes: COPD Gastrointestinal: Yes: GERD Renal/: Yes: Renal Inusuff, Hemodialysis, Renal Calculi (maybe- she had flank pain) Endocrine: Yes: Diabetes Mellitus - Past Surgical History Past Surgical History: Yes: AV Fistula/Graft - Alcohol/Substance Use Hx Alcohol Use: No - Smoking History Smoking history: Former smoker Have you smoked in the past 12 months: No Aproximately how many cigarettes per day: 0 Home Medications - Allergies Allergies/Adverse Reactions: Allergies Allergy/AdvReac Type Severity Reaction Status Date / Time egg AdvReac Vomiting Verified 04/29/18 13:24 - Home Medications Home Medications: Ambulatory Orders Acetaminophen W/ Codeine #3 [Tylenol # 3 -] 1 tab PO TID 04/08/18 Amlodipine Besylate 10 mg PO DAILY 04/08/18 Docusate Sodium 100 mg PO BID 04/08/18 Metoprolol Tartrate 50 mg PO BID 04/08/18 Pregabalin [Lyrica -] 150 mg PO BID 04/08/18 Rosuvastatin [Crestor -] 20 mg PO HS 04/08/18 Salmeterol/Fluticasone [Advair 100Mcg/50Mcg -] 1 puff IH BID 04/08/18 Sevelamer Carbonate [Renvela -] 800 mg PO TID 04/08/18 Ventolin HFA Inhaler - 2 puff IH QID 04/08/18 Family Disease History - Family Disease History Family History: Denies Review of Systems - Review of Systems Constitutional: reports: Malaise. denies: Chills, Fever Eyes: reports: No Symptoms HENT: reports: No Symptoms Neck: reports: No Symptoms Cardiovascular: reports: No Symptoms Respiratory: reports: SOB Gastrointestinal: reports: No Symptoms Genitourinary: reports: No Symptoms Musculoskeletal: reports: No Symptoms Integumentary: reports: No Symptoms Neurological: reports: No Symptoms Endocrine: reports: No Symptoms Hematology/Lymphatic: reports: No Symptoms Psychiatric: reports: No Symptoms Physical Exam Vital Signs: Vital Signs Temperature 97.5 F L 04/29/18 13:25 Pulse Rate 84 04/29/18 13:25 Respiratory Rate 20 04/29/18 13:25 Blood Pressure 140/65 04/29/18 13:25 O2 Sat by Pulse Oximetry (%) 100 04/29/18 13:25 Constitutional: Yes: Calm Eyes: Yes: Conjunctiva Clear HENT: Yes: Atraumatic Cardiovascular: Yes: S1, S2 Respiratory: Yes: On Nasal O2 Gastrointestinal: Yes: Soft Renal/: Yes: WNL Musculoskeletal: Yes: WNL Edema: No Neurological: Yes: Oriented Psychiatric: Yes: Oriented Labs: CBC, BMP 04/29/18 13:42 04/29/18 13:42 Laboratory Tests 03/08/18 04/08/18 04/09/18 06:35 15:26 06:25 WBC RBC Plt Count 121 L D 70 L D 90 L D INR Sodium Potassium BUN Creatinine 04/10/18 04/11/18 04/29/18 05:30 07:30 13:42 WBC 6.1 RBC 4.03 Plt Count 64 L D 94 L D 27 L* D INR Sodium Potassium BUN Creatinine 04/29/18 04/29/18 13:42 13:42 WBC RBC Plt Count INR 0.90 Sodium 137 Potassium 3.9 BUN 32 H Creatinine 5.6 H Assessment/Plan Current Medications Generic Name Dose Route Start Last Admin Trade Name Freq PRN Reason Stop Dose Admin Amlodipine Besylate 10 mg 04/30/18 10:00 Norvasc - PO DAILY FORREST Docusate Sodium 100 mg 04/29/18 22:00 Colace - PO BID FORREST Metoprolol Tartrate 50 mg 04/29/18 22:00 Lopressor - PO BID FORREST Rosuvastatin Calcium 20 mg 04/29/18 22:00 Crestor - PO HS FORREST Fluticasone/Salmeterol 1 puff 04/29/18 22:00 Advair 100mcg/50mcg - IH BID FORREST Impression 1. ESRD 2. HTN 3. HLD 4. COPD 5. DM 6. pos heb b core 7. abd pain 8. vomiting 9. anemia 10. pericardial effusion 11. thrombocytopenia Plan - pt had about an hour and a half of hd today - send platelet abx - heme eval - d/c heparin from hd, she did get 500 cc today - repeat labs in am - discussed with medicine
[2018-04-29 17:37] LABS: WHITE BLOOD COUNT 6.2 K/mm3 (4.0-10.0)
[2018-04-29 17:43] LABS: HEMATOCRIT 35.5 % (32.4-45.2); HEMOGLOBIN 11.9 GM/dL (10.7-15.3); MCH 29.1 pg (25.7-33.7); MCHC 33.6 g/dl (32.0-36.0); MEAN CELL VOLUME 86.6 fl (80-96); MEAN PLT VOLUME 8.3 fl (7.5-11.1); RDW 18.4 % (11.6-15.6)
[2018-04-29 17:46] LABS: PLATELET COUNT 28 K/MM3 (134-434)
[2018-04-29] MEDS ORDERED: INSULIN (NOVOLOG) ASPART 100 UNITS/ML 10ML VIAL ONE (21:30)
[2018-04-29] MEDS ORDERED: ROSUVASTATIN CA 20 MG TABLET (FP) PO SCH (22:00)
[2018-04-29] MEDS: DOCUSATE SODIUM 100 MG CAPSULE (FP) PO SCH (22:02)
[2018-04-29] MEDS: FLUTICASONE/SALMETEROL 100 MCG/50 MCG DISKUS IH SCH (22:03)
[2018-04-29] MEDS: METOPROLOL TARTRATE 50 MG TABLET (FP) PO SCH (22:03)
[2018-04-29] MEDS: INSULIN SLIDING SCALE (NOVOLOG) 1 VIAL SQ SCH (22:21)
[2018-04-30] MEDS: INSULIN SLIDING SCALE (NOVOLOG) 1 VIAL SQ SCH ×4 (06:06→21:05)
--- NOTE | 2018-04-30 08:43 | PN ---
Progress Note (short form) - Note Progress Note: outpt labs 03/13/18 platelets 236 04/08/18 platelets 247
[2018-04-30 09:18] LABS: BASO % 1.4 % (0-2.0); EOS % 1.2 % (0-4.5); HEMATOCRIT 36.7 % (32.4-45.2); HEMOGLOBIN 11.9 GM/dL (10.7-15.3); LYMPH % 9.4 % (8-40); MCH 28.7 pg (25.7-33.7); MCHC 32.6 g/dl (32.0-36.0); MEAN CELL VOLUME 88.1 fl (80-96); MEAN PLT VOLUME 9.9 fl (7.5-11.1); MONO % 11.1 % (3.8-10.2); NEUT % 76.9 % (42.8-82.8); PLATELET COUNT 67 K/MM3 (134-434); RBC 4.16 M/mm3 (3.60-5.2); RDW 18.5 % (11.6-15.6); WHITE BLOOD COUNT 4.6 K/mm3 (4.0-10.0)
[2018-04-30 09:30] LABS: INR 0.86 (0.83-1.09); PROTHROMBIN TIME (PATIENT) 10.1 SEC (9.7-13.0)
[2018-04-30 09:33] LABS: ACTIVATED PTT 26.7 SECONDS (25.2-36.5)
[2018-04-30 09:39] LABS: ALBUMIN 3.7 g/dl (3.4-5.0); ALK PHOS 53 U/L (45-117); ANION GAP 10 MMOL/L (8-16); BILIRUBIN,TOTAL 0.9 mg/dL (0.2-1); BLOOD UREA NITROGEN 43 mg/dL (7-18); CALCIUM 9.1 mg/dL (8.5-10.1); CHLORIDE 109 mmol/L (98-107); CO2 25 mmol/L (21-32); CREATININE 6.7 mg/dL (0.55-1.3); GLUCOSE,RANDOM 87 mg/dL (74-106); POTASSIUM 4.7 mmol/L (3.5-5.1); SGOT/AST 13 U/L (15-37); SGPT/ALT 12 U/L (13-61); SODIUM 144 mmol/L (136-145); TOT PROT 6.6 g/dl (6.4-8.2)
[2018-04-30] MEDS ORDERED: SODIUM CHLORIDE 250 ML IV PRN ×2 (09:59→18:41)
[2018-04-30] MEDS ORDERED: amLODIPine BESYLATE 10 MG TABLET (FP) PO SCH (10:00)
[2018-04-30] MEDS ORDERED: PT OWN MED DRAWER 7, Y5N ONE ×3 (10:55→21:40)
[2018-04-30] MEDS: DOCUSATE SODIUM 100 MG CAPSULE (FP) PO SCH ×2 (10:56→21:05)
[2018-04-30] MEDS: METOPROLOL TARTRATE 50 MG TABLET (FP) PO SCH ×3 (10:57→21:05)
[2018-04-30] MEDS: FLUTICASONE/SALMETEROL 100 MCG/50 MCG DISKUS IH SCH ×2 (10:58→21:12)
--- NOTE | 2018-04-30 13:34 | CONSULT ---
Consultation: REQUESTING PROVIDER: Dr. Burnette CONSULT REQUEST: We have been asked to medically evaluate this patient for thrombocytopenia. HISTORY OF PRESENT ILLNESS: This is an 88 year old female with a history ESRD on HD, CHF, COPD on home oxygen, HTN , DM , who presented with shortness of breath while getting dialysis found to have severe thrombocytopenia, platelets 27,000. Coagulation studies wnl. Patient denies active bleed, or history of bleed, she gets heparin with dialysis. Previous records indicate that she had platelet count of 70 04/08/18 when she was admitted for pulmonary edema and hypertensive urgency. All other platelet counts recorded ranged 200-300s. Daughter at bedside; translating; patient speaks Creole; As per daughter, patients admits to chronic history of abdominal pain, n, intermittent vomiting and wt loss over the past year or more. She has never had GI evaluation; never had colonoscopy or endoscopy. REVIEW OF SYSTEMS: CONSTITUTIONAL: Absent: fever, chills, diaphoresis, generalized weakness, malaise, loss of appetite, weight change HEENT: Absent: rhinorrhea, nasal congestion, throat pain, throat swelling, difficulty swallowing, mouth swelling, ear pain, eye pain, visual changes CARDIOVASCULAR: Absent: chest pain, syncope, palpitations, irregular heart rate, lightheadedness , peripheral edema RESPIRATORY: Absent: cough, shortness of breath, dyspnea with exertion, orthopnea, wheezing, stridor, hemoptysis GASTROINTESTINAL: Absent: abdominal pain, abdominal distension, nausea, vomiting, diarrhea, constipation, melena, hematochezia GENITOURINARY: Absent: dysuria, frequency, urgency, hesitancy, hematuria, flank pain, genital pain MUSCULOSKELETAL: Absent: myalgia, arthralgia, joint swelling, back pain, neck pain SKIN: Absent: rash, itching, pallor HEMATOLOGIC/IMMUNOLOGIC: Absent: easy bleeding, easy bruising, lymphadenopathy, frequent infections ENDOCRINE: Absent: unexplained weight gain, unexplained weight loss, heat intolerance, cold intolerance NEUROLOGIC: Absent: headache, focal weakness or paresthesias, dizziness, unsteady gait, seizure, mental status changes, bladder or bowel incontinence PSYCHIATRIC: Absent: anxiety, depression, suicidal or homicidal ideation, hallucinations. PHYSICAL EXAMINATION Vital Signs - 24 hr 04/29/18 04/29/18 04/29/18 17:53 19:03 21:09 Temperature 98.2 F 98.7 F 98.7 F Pulse Rate 69 69 Pulse Rate [ 69 Right Radial] Respiratory 17 22 H 22 H Rate Blood Pressure 129/57 L 129/57 L Blood Pressure 130/80 [Left Arm] O2 Sat by Pulse 100 98 Oximetry (%) 04/29/18 04/30/18 04/30/18 23:00 00:40 07:00 Temperature 98.7 F 98.3 F Pulse Rate 69 72 Pulse Rate [ Right Radial] Respiratory 22 H 22 H 20 Rate Blood Pressure 129/57 L 144/77 Blood Pressure [Left Arm] O2 Sat by Pulse 98 Oximetry (%) 04/30/18 04/30/18 04/30/18 10:48 11:45 11:50 Temperature 98.2 F Pulse Rate 66 71 68 Pulse Rate [ Right Radial] Respiratory 20 18 18 Rate Blood Pressure 137/59 L 171/70 H 152/66 Blood Pressure [Left Arm] O2 Sat by Pulse Oximetry (%) 04/30/18 04/30/18 04/30/18 12:20 12:45 12:50 Temperature Pulse Rate 99 H 96 H 99 H Pulse Rate [ Right Radial] Respiratory 18 18 18 Rate Blood Pressure 160/86 172/85 H 170/82 Blood Pressure [Left Arm] O2 Sat by Pulse Oximetry (%) GENERAL: Awake, alert, and fully oriented, in no acute distress. NECK: Normal range of motion, supple without lymphadenopathy, JVD, or masses. LUNGS: scattered rhonchi HEART: Regular rate and rhythm, normal S1 and S2 without murmur, rub or gallop. Breast/axilly; no masses, lumps, nipple discharge ABDOMEN: soft; tenderness to palpation of the spleen and gallbladder UPPER EXTREMITIES: 2+ pulses, warm, well-perfused. No cyanosis. No clubbing. Cap refill <2 seconds. No peripheral edema. LOWER EXTREMITIES: 2+ pulses, warm, well-perfused. No calf tenderness. No peripheral edema. NEUROLOGICAL: Cranial nerves II-XII intact. Normal speech. PSYCHIATRIC: Cooperative. Good eye contact. Appropriate mood and affect. SKIN: Warm, dry, normal turgor, no rashes or lesions noted. Laboratory Results - last 24 hr 04/29/18 04/29/18 04/29/18 13:42 13:42 13:42 WBC 6.1 RBC 4.03 Hgb 11.5 Hct 35.0 D MCV 86.7 MCH 28.6 MCHC 33.0 RDW 18.2 H Plt Count 27 L* D MPV 8.0 D Absolute Neuts (auto) 5.2 Neutrophils % 84.8 H Lymphocytes % 4.0 L D Monocytes % 9.9 Eosinophils % 0.9 Basophils % 0.4 Nucleated RBC % 0 Platelet Estimate Decreased Platelet Comment Rare giant plts PT with INR 10.60 INR 0.90 PTT (Actin FS) 28.6 Sodium Potassium Chloride Carbon Dioxide Anion Gap BUN Creatinine Creat Clearance w eGFR POC Glucometer Random Glucose Calcium Phosphorus Magnesium Total Bilirubin AST ALT Alkaline Phosphatase Troponin I B-Natriuretic Peptide Total Protein Albumin Vitamin B12 Serum Folate 04/29/18 04/29/18 04/29/18 13:42 17:28 17:28 WBC 6.2 RBC 4.10 Hgb 11.9 Hct 35.5 MCV 86.6 MCH 29.1 MCHC 33.6 RDW 18.4 H Plt Count 28 L* MPV 8.3 Absolute Neuts (auto) Neutrophils % Lymphocytes % Monocytes % Eosinophils % Basophils % Nucleated RBC % Platelet Estimate Platelet Comment PT with INR INR PTT (Actin FS) Sodium 137 Potassium 3.9 Chloride 103 Carbon Dioxide 31 Anion Gap 4 L BUN 32 H Creatinine 5.6 H Creat Clearance w eGFR 7.17 POC Glucometer Random Glucose 203 H Calcium 8.5 Phosphorus 1.9 L Magnesium 2.0 Total Bilirubin 0.9 AST 13 L ALT 12 L Alkaline Phosphatase 53 Troponin I < 0.02 B-Natriuretic Peptide 1611.0 H Total Protein 6.8 Albumin 3.7 Vitamin B12 531 Serum Folate 9 04/29/18 04/29/18 04/30/18 17:28 22:06 05:55 WBC RBC Hgb Hct MCV MCH MCHC RDW Plt Count MPV Absolute Neuts (auto) Neutrophils % Lymphocytes % Monocytes % Eosinophils % Basophils % Nucleated RBC % Platelet Estimate Platelet Comment PT with INR INR PTT (Actin FS) Sodium Potassium Chloride Carbon Dioxide Anion Gap BUN Creatinine Creat Clearance w eGFR POC Glucometer 171 79 Random Glucose Calcium Phosphorus Magnesium Total Bilirubin AST ALT Alkaline Phosphatase Troponin I 0.03 B-Natriuretic Peptide Total Protein Albumin Vitamin B12 Serum Folate 04/30/18 04/30/18 04/30/18 08:50 08:50 08:50 WBC 4.6 RBC 4.16 Hgb 11.9 Hct 36.7 MCV 88.1 MCH 28.7 MCHC 32.6 RDW 18.5 H Plt Count 67 L D MPV 9.9 D Absolute Neuts (auto) 3.5 Neutrophils % 76.9 Lymphocytes % 9.4 D Monocytes % 11.1 H Eosinophils % 1.2 Basophils % 1.4 D Nucleated RBC % 0 Platelet Estimate Platelet Comment PT with INR 10.10 INR 0.86 PTT (Actin FS) 26.7 Sodium 144 Potassium 4.7 Chloride 109 H Carbon Dioxide 25 Anion Gap 10 BUN 43 H Creatinine 6.7 H Creat Clearance w eGFR 5.83 POC Glucometer Random Glucose 87 Calcium 9.1 Phosphorus Magnesium Total Bilirubin 0.9 AST 13 L ALT 12 L Alkaline Phosphatase 53 Troponin I B-Natriuretic Peptide Total Protein 6.6 Albumin 3.7 Vitamin B12 Serum Folate Active Medications Generic Name Dose Route Start Last Admin Trade Name Freq PRN Reason Stop Dose Admin Amlodipine Besylate 10 mg 04/30/18 10:00 04/30/18 10:57 Norvasc - PO Not Given DAILY [facility] Docusate Sodium 100 mg 04/29/18 22:00 04/30/18 10:56 Colace - PO Not Given BID [facility] Sodium Chloride 250 mls @ 3,000 mls/hr 04/30/18 09:59 Normal Saline - IV 05/01/18 09:59 PRN PRN Hypotension during Dialysis Insulin Aspart 1 vial 04/29/18 22:00 04/30/18 06:06 Novolog Vial Sliding Scale - SQ Not Given ACHS [facility] Protocol Losartan Potassium 50 mg 04/30/18 13:30 Cozaar - PO DAILY [facility] Metoprolol Tartrate 50 mg 04/29/18 22:00 04/30/18 10:57 Lopressor - PO Not Given BID [facility] Rosuvastatin Calcium 20 mg 04/29/18 22:00 04/29/18 22:02 Crestor - PO 20 mg HS [facility] Administration Fluticasone/Salmeterol 1 puff 04/29/18 22:00 04/30/18 10:58 Advair 100mcg/50mcg - IH 1 puff BID [facility] Administration ASSESSMENT/PLAN: This is an 88 year old female with a history ESRD on HD, CHF, COPD on home oxygen, HTN , DM , who presented with shortness of breath while getting dialysis found to have severe thrombocytopenia, platelets 27,000. Coagulation studies wnl. Thrombocytopenia; Abdominal pain ESRD on HD la err/ due to clumpting vs ITP? vsHIT? -platelets 27-->67 today; no active bleed; coagulation studies wnl -last admission 04/08/18 platelet cbc 70; and as per nephrology; labs drawn same day at dialysis center platelets were 247 -need to get proper tubing for lab draw to prevent clumping ; green top or blue top -HIT antibody pending -seretonin releease assay pending -abdominal US pending Dispo: We will continue to follow the patient. Thank you for this consultative opportunity. Visit type - Emergency Visit Emergency Visit: Yes ED Registration Date: 04/30/18 Care time: The patient presented to the Emergency Department on the above date and was hospitalized for further evaluation of their emergent condition. - New Patient This patient is new to me today: Yes Date on this admission: 04/30/18 - Critical Care Critical Care patient: No
[2018-04-30] MEDS: LOSARTAN POTASSIUM 50 MG TABLET (FP) PO SCH (13:51)
[2018-04-30] MEDS ORDERED: NITROGLYCERIN 2% OINTMENT - 1GM PACKET TD ONE (14:19)
--- NOTE | 2018-04-30 15:10 | PN ---
Teaching Attending Note Name of Resident: Escobar Kelley ATTENDING PHYSICIAN STATEMENT I saw and evaluated the patient. I reviewed the resident's note and discussed the case with the resident. I agree with the resident's findings and plan as documented. SUBJECTIVE: patient is c/o stomach pain . is going for dialysis today. OBJECTIVE: Vital Signs Temperature 98.2 F 04/30/18 13:35 Pulse Rate 91 H 04/30/18 13:35 Respiratory Rate 20 04/30/18 13:35 Blood Pressure 143/72 04/30/18 13:35 O2 Sat by Pulse Oximetry (%) 98 04/30/18 00:40 GENERAL: NAD, awake, alert, and fully oriented HEENT: Nc/AT, EOMI, MARZENA, sclera anicteric, no mucosal ulcerations, MMM, no JVD noted LUNGS: CTA bilaterally. No wheezes, and no crackles. No accessory muscle use. On 2.5L at home. HEART: RRR, normal S1 and S2 without murmur ABDOMEN: Soft, NT/ND, normoactive bowel sounds, no guarding, No hepatomegaly per palpation, no splenomegaly per palpation. MUSCULOSKELETAL: Contracted lower extremities, no CVA tenderness. EXTREMITIES: LUE AV fistula with palpable thrill, no signs of bleeding, bandages overlying without blood, 1+ pulses in other 3 limbs, warm, No calf tenderness. No peripheral edema. PSYCHIATRIC: Cooperative. Good eye contact. Appropriate mood and affect. SKIN: Warm, dry, no rashes or lesions noted including palpable purpura CBCD WBC 4.6 K/mm3 (4.0-10.0) 04/30/18 08:50 RBC 4.16 M/mm3 (3.60-5.2) 04/30/18 08:50 Hgb 11.9 GM/dL (10.7-15.3) 04/30/18 08:50 Hct 36.7 % (32.4-45.2) 04/30/18 08:50 MCV 88.1 fl (80-96) 04/30/18 08:50 MCHC 32.6 g/dl (32.0-36.0) 04/30/18 08:50 RDW 18.5 % (11.6-15.6) H 04/30/18 08:50 Plt Count 67 K/MM3 (134-434) L D 04/30/18 08:50 MPV 9.9 fl (7.5-11.1) D 04/30/18 08:50 CMP Sodium 144 mmol/L (136-145) 04/30/18 08:50 Potassium 4.7 mmol/L (3.5-5.1) 04/30/18 08:50 Chloride 109 mmol/L (98-107) H 04/30/18 08:50 Carbon Dioxide 25 mmol/L (21-32) 04/30/18 08:50 Anion Gap 10 MMOL/L (8-16) 04/30/18 08:50 BUN 43 mg/dL (7-18) H 04/30/18 08:50 Creatinine 6.7 mg/dL (0.55-1.3) H 04/30/18 08:50 Creat Clearance w eGFR 5.83 (>60) 04/30/18 08:50 Random Glucose 87 mg/dL (74-106) 04/30/18 08:50 Calcium 9.1 mg/dL (8.5-10.1) 04/30/18 08:50 Total Bilirubin 0.9 mg/dL (0.2-1) 04/30/18 08:50 AST 13 U/L (15-37) L 04/30/18 08:50 ALT 12 U/L (13-61) L 04/30/18 08:50 Alkaline Phosphatase 53 U/L (45-117) 04/30/18 08:50 Total Protein 6.6 g/dl (6.4-8.2) 04/30/18 08:50 Albumin 3.7 g/dl (3.4-5.0) 04/30/18 08:50 CARDIAC ENZYMES Troponin I 0.03 ng/ml (0.00-0.05) 04/29/18 17:28 Current Medications Generic Name Dose Route Start Last Admin Trade Name Freq PRN Reason Stop Dose Admin Amlodipine Besylate 10 mg 04/30/18 10:00 04/30/18 10:57 Norvasc - PO Not Given DAILY [facility] Docusate Sodium 100 mg 04/29/18 22:00 04/30/18 10:56 Colace - PO Not Given BID [facility] Sodium Chloride 250 mls @ 3,000 mls/hr 04/30/18 09:59 Normal Saline - IV 05/01/18 09:59 PRN PRN Hypotension during Dialysis Insulin Aspart 1 vial 04/29/18 22:00 04/30/18 13:31 Novolog Vial Sliding Scale - SQ Not Given ACHS [facility] Protocol Losartan Potassium 50 mg 04/30/18 13:30 04/30/18 13:51 Cozaar - PO 50 mg DAILY [facility] Administration Metoprolol Tartrate 50 mg 04/29/18 22:00 04/30/18 13:59 Lopressor - PO 50 mg BID [facility] Administration Rosuvastatin Calcium 20 mg 04/29/18 22:00 04/29/18 22:02 Crestor - PO 20 mg HS [facility] Administration Fluticasone/Salmeterol 1 puff 04/29/18 22:00 04/30/18 10:58 Advair 100mcg/50mcg - IH 1 puff BID [facility] Administration Home Medications Medication Instructions Recorded RX: Acetaminophen W/ Codeine #3 1 tab PO TID 04/08/18 [Tylenol # 3 -] RX: Amlodipine Besylate 10 mg PO DAILY 04/08/18 RX: Docusate Sodium 100 mg PO BID 04/08/18 RX: Metoprolol Tartrate 50 mg PO BID 04/08/18 RX: Pregabalin [Lyrica -] 150 mg PO BID 04/08/18 RX: Rosuvastatin [Crestor -] 20 mg PO HS 04/08/18 RX: Salmeterol/Fluticasone [Advair 1 puff IH BID 04/08/18 100Mcg/50Mcg -] RX: Sevelamer Carbonate [Renvela -] 800 mg PO TID 04/08/18 Ventolin HFA Inhaler - 2 puff IH QID 04/08/18 ASSESSMENT AND PLAN: Patient is a 88yo creol speaking Female with PMHx of ESRD (M/W/F), 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 Patient was send to ED. for further care and was found to have low platelets of 27K. #Acute thrombocytopenia 27k--28k--> 68k today, follow HIT2 level since patient a dialysis patient and receives HEPARIN during dialysis. FOR CONSULT appreciated. #ESRD on HD , on the case. #Hypophosphatemia : patient is a dialysis patient. # hx of COPD (not in exacerbation)continue home meds. # Hx of CHF (not in exacerbation) # hx of HTN continue home meds. # hx of DM ss with coverage. DVT Px; SCDs patient is bedridden. FALL PRECAUTION, BED ALARM. Inpatient today
--- NOTE | 2018-04-30 15:21 | PN ---
Physical Exam: SUBJECTIVE: Patient seen and examined at bed side , no acute events over night , reports abdominal pain RUQ this am with no N/v , feel constipated reports SOB when on HD OBJECTIVE: Vital Signs Period Temp Pulse Resp BP Sys/Betancourt Pulse Ox Last 24 Hr 98.2 F-98.7 F 66-99 17-22 129-172/57-86 98-100 GENERAL: NAD, AAOx3 , bed ridden HEENT: Nc/AT, EOMI, MARZENA, MMM, No JVD LUNGS: CTA bilaterally. fine crackles at left base , On baseline 2.5L HEART: RRR, normal S1 and S2 without murmur ABDOMEN: Soft, NT/ND, normoactive bowel sounds, no guarding, MUSCULOSKELETAL: Contracted lower extremities, no CVA tenderness. EXTREMITIES: LUE AV fistula with palpable thrill, no signs of bleeding, bandages overlying without blood, 1+ pulses in other 3 limbs, warm, No calf tenderness. No peripheral edema. PSYCHIATRIC: Cooperative. Laboratory Results - last 24 hr 04/29/18 04/29/18 04/29/18 11:50 17:28 17:28 WBC 6.2 RBC 4.10 Hgb 11.9 Hct 35.5 MCV 86.6 MCH 29.1 MCHC 33.6 RDW 18.4 H Plt Count 28 L* MPV 8.3 Absolute Neuts (auto) Neutrophils % Lymphocytes % Monocytes % Eosinophils % Basophils % Nucleated RBC % PT with INR INR PTT (Actin FS) Sodium Potassium Chloride Carbon Dioxide Anion Gap BUN Creatinine Creat Clearance w eGFR POC Glucometer Random Glucose Calcium Total Bilirubin AST ALT Alkaline Phosphatase Troponin I Total Protein Albumin Vitamin B12 531 Serum Folate 9 Blood Type A POSITIVE Antibody Screen Negative 04/29/18 04/29/18 04/30/18 17:28 22:06 05:55 WBC RBC Hgb Hct MCV MCH MCHC RDW Plt Count MPV Absolute Neuts (auto) Neutrophils % Lymphocytes % Monocytes % Eosinophils % Basophils % Nucleated RBC % PT with INR INR PTT (Actin FS) Sodium Potassium Chloride Carbon Dioxide Anion Gap BUN Creatinine Creat Clearance w eGFR POC Glucometer 171 79 Random Glucose Calcium Total Bilirubin AST ALT Alkaline Phosphatase Troponin I 0.03 Total Protein Albumin Vitamin B12 Serum Folate Blood Type Antibody Screen 04/30/18 04/30/18 04/30/18 08:50 08:50 08:50 WBC 4.6 RBC 4.16 Hgb 11.9 Hct 36.7 MCV 88.1 MCH 28.7 MCHC 32.6 RDW 18.5 H Plt Count 67 L D MPV 9.9 D Absolute Neuts (auto) 3.5 Neutrophils % 76.9 Lymphocytes % 9.4 D Monocytes % 11.1 H Eosinophils % 1.2 Basophils % 1.4 D Nucleated RBC % 0 PT with INR 10.10 INR 0.86 PTT (Actin FS) 26.7 Sodium 144 Potassium 4.7 Chloride 109 H Carbon Dioxide 25 Anion Gap 10 BUN 43 H Creatinine 6.7 H Creat Clearance w eGFR 5.83 POC Glucometer Random Glucose 87 Calcium 9.1 Total Bilirubin 0.9 AST 13 L ALT 12 L Alkaline Phosphatase 53 Troponin I Total Protein 6.6 Albumin 3.7 Vitamin B12 Serum Folate Blood Type Antibody Screen 04/30/18 13:30 WBC RBC Hgb Hct MCV MCH MCHC RDW Plt Count MPV Absolute Neuts (auto) Neutrophils % Lymphocytes % Monocytes % Eosinophils % Basophils % Nucleated RBC % PT with INR INR PTT (Actin FS) Sodium Potassium Chloride Carbon Dioxide Anion Gap BUN Creatinine Creat Clearance w eGFR POC Glucometer 104 Random Glucose Calcium Total Bilirubin AST ALT Alkaline Phosphatase Troponin I Total Protein Albumin Vitamin B12 Serum Folate Blood Type Antibody Screen Active Medications Generic Name Dose Route Start Last Admin Trade Name Freq PRN Reason Stop Dose Admin Amlodipine Besylate 10 mg 04/30/18 10:00 04/30/18 10:57 Norvasc - PO Not Given DAILY [facility] Docusate Sodium 100 mg 04/29/18 22:00 04/30/18 10:56 Colace - PO Not Given BID [facility] Sodium Chloride 250 mls @ 3,000 mls/hr 04/30/18 09:59 Normal Saline - IV 05/01/18 09:59 PRN PRN Hypotension during Dialysis Insulin Aspart 1 vial 04/29/18 22:00 04/30/18 13:31 Novolog Vial Sliding Scale - SQ Not Given ACHS [facility] Protocol Losartan Potassium 50 mg 04/30/18 13:30 04/30/18 13:51 Cozaar - PO 50 mg DAILY [facility] Administration Metoprolol Tartrate 50 mg 04/29/18 22:00 04/30/18 13:59 Lopressor - PO 50 mg BID [facility] Administration Rosuvastatin Calcium 20 mg 04/29/18 22:00 04/29/18 22:02 Crestor - PO 20 mg HS [facility] Administration Fluticasone/Salmeterol 1 puff 04/29/18 22:00 04/30/18 10:58 Advair 100mcg/50mcg - IH 1 puff BID [facility] Administration CBC, BMP 04/30/18 08:50 04/30/18 08:50 ECG - NSR@83bpm, normal axis, delayed R-wave progression with evidence of LVH, no MARY KAY/STD, isolated Q-wave in Lead III without evidence of R-heart strain, no alternans, QTc 406ms ASSESSMENT/PLAN: Patient is a 88yo creol speaking Female with PMHx of ESRD (M/W/F), 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 Patient was send to ED. for further care and was found to have low platelets of 27K. #Thrombocytopenia acutely lower than baselne (now 27,000 from 90,000's) * DDx includes HIT (heparin during dialysis sessions), ITP, lab error * Rpt CBC this AM with PLt [id number] , monitor * B12 and folate WNL * HIT antibody peniing , avoid Heparine or LMWH * Monitor for signs of bleeding * Hematology consulted #chest pain during HD and Shortness of breath * transfer to tele * cardiology consulted recommend losartan 50 daily, cont Norvasc and lopressor , * EKG , Trop trend , CXR , echo # Abdominal pain likley due to contipation will start colace 100 po BID and US pending , # ESRD on MWF HD * has session today last one hour * Nephro on board DR Griffin recomendation appreciated # HTN , resume home meds # HLD: cont Crestor 20 mg HS #DM * BGM ACHS; ISS * Hold oral agents # H/O CHF and H/O COPD not in exacerbation #FEN: F: No standing fluids E: monitor and replinished as needed Nutrition: Renal diabetic diet #PPX: DVT - Mod risk; avoid prophylaxis due to severe thrombocytopenia, scds GI - Not indicated #Dispo: M/S switch to inpatient tele Visit type - Emergency Visit Emergency Visit: Yes ED Registration Date: 04/30/18 Care time: The patient presented to the Emergency Department on the above date and was hospitalized for further evaluation of their emergent condition. - New Patient This patient is new to me today: Yes Date on this admission: 04/30/18 - Critical Care Critical Care patient: No - Discharge Referral Referred to [facility] Med P.C.: No
--- NOTE | 2018-04-30 15:32 | PN ---
Progress Note, Physician History of Present Illness: Pt seen and examined at bedside. She developed chest pain about 45 minutes into HD today. She had a similar episode yesterday in HD. - Current Medication List Current Medications: Active Medications Amlodipine Besylate (Norvasc -) 10 mg PO DAILY [facility] Last Admin: 04/30/18 10:57 Dose: Not Given Docusate Sodium (Colace -) 100 mg PO BID [facility] Last Admin: 04/30/18 10:56 Dose: Not Given Sodium Chloride (Normal Saline -) 250 mls @ 3,000 mls/hr IV PRN PRN PRN Reason: Hypotension during Dialysis Stop: 05/01/18 09:59 Insulin Aspart (Novolog Vial Sliding Scale -) 1 vial SQ ACHS [facility]; Protocol Last Admin: 04/30/18 13:31 Dose: Not Given Losartan Potassium (Cozaar -) 50 mg PO DAILY [facility] Last Admin: 04/30/18 13:51 Dose: 50 mg Metoprolol Tartrate (Lopressor -) 50 mg PO BID [facility] Last Admin: 04/30/18 13:59 Dose: 50 mg Rosuvastatin Calcium (Crestor -) 20 mg PO HS [facility] Last Admin: 04/29/18 22:02 Dose: 20 mg Fluticasone/Salmeterol (Advair 100mcg/50mcg -) 1 puff IH BID [facility] Last Admin: 04/30/18 10:58 Dose: 1 puff - Objective Vital Signs: Vital Signs Temperature 98.2 F 04/30/18 13:35 Pulse Rate 91 H 04/30/18 13:35 Respiratory Rate 20 04/30/18 13:35 Blood Pressure 143/72 04/30/18 13:35 O2 Sat by Pulse Oximetry (%) 98 04/30/18 00:40 Constitutional: Yes: Anxious Eyes: Yes: Conjunctiva Clear HENT: Yes: Atraumatic Cardiovascular: Yes: S1, S2 Respiratory: Yes: On Nasal O2 Gastrointestinal: Yes: Normal Bowel Sounds, Soft Genitourinary: Yes: WNL Musculoskeletal: Yes: WNL Edema: LLE: Trace, RLE: Trace Neurological: Yes: Oriented Psychiatric: Yes: Oriented Labs: CBC, BMP 04/30/18 08:50 04/30/18 08:50 INR, PTT INR 0.86 (0.83-1.09) 04/30/18 08:50 Assessment/Plan Current Medications Generic Name Dose Route Start Last Admin Trade Name Shubham PRN Reason Stop Dose Admin Amlodipine Besylate 10 mg 04/30/18 10:00 04/30/18 10:57 Norvasc - PO Not Given DAILY [facility] Docusate Sodium 100 mg 04/29/18 22:00 04/30/18 10:56 Colace - PO Not Given BID [facility] Sodium Chloride 250 mls @ 3,000 mls/hr 04/30/18 09:59 Normal Saline - IV 05/01/18 09:59 PRN PRN Hypotension during Dialysis Insulin Aspart 1 vial 04/29/18 22:00 04/30/18 13:31 Novolog Vial Sliding Scale - SQ Not Given ACHS [facility] Protocol Losartan Potassium 50 mg 04/30/18 13:30 04/30/18 13:51 Cozaar - PO 50 mg DAILY [facility] Administration Metoprolol Tartrate 50 mg 04/29/18 22:00 04/30/18 13:59 Lopressor - PO 50 mg BID [facility] Administration Rosuvastatin Calcium 20 mg 04/29/18 22:00 04/29/18 22:02 Crestor - PO 20 mg HS [facility] Administration Fluticasone/Salmeterol 1 puff 04/29/18 22:00 04/30/18 10:58 Advair 100mcg/50mcg - IH 1 puff BID [facility] Administration Impression 1. ESRD 2. HTN 3. HLD 4. COPD 5. DM 6. pos heb b core 7. abd pain 8. vomiting 9. anemia 10. pericardial effusion 11. thrombocytopenia 12. chest pain Plan - terminated HD due to chest pain - check cardiac enzymes, get cxr, and transfer to tele, spoke to medical team about plan - cardio eval - platelets are improved - hematology follow up - get echo - pt now off of heparin - discussed plan with family - dialyzer used here is different than dialyzer used in HD - bp is better controlled - please do not hold bp meds in am on HD days
--- NOTE | 2018-04-30 16:51 | EKG ---
Test Reason : Blood Pressure : / mmHG Vent. Rate : 091 BPM Atrial Rate : 091 BPM P-R Int : 202 ms QRS Dur : 084 ms QT Int : 348 ms P-R-T Axes : 082 062 081 degrees QTc Int : 428 ms SINUS RHYTHM WITH OCCASIONAL PREMATURE VENTRICULAR COMPLEXES MODERATE VOLTAGE CRITERIA FOR LVH, MAY BE NORMAL VARIANT BORDERLINE ECG WHEN COMPARED WITH ECG OF 29-APR-2018 13:31, PREMATURE VENTRICULAR COMPLEXES ARE NOW PRESENT Confirmed by MADELINE ALDANA MD ([id number]) on 04/30/2018 4:51:20 PM Referred By: CAMDEN ZAMARRIPA Confirmed By:MADELINE ALDANA MD
--- NOTE | 2018-04-30 16:57 | EKG ---
Test Reason : Blood Pressure : / mmHG Vent. Rate : 083 BPM Atrial Rate : 083 BPM P-R Int : 194 ms QRS Dur : 078 ms QT Int : 346 ms P-R-T Axes : 073 028 072 degrees QTc Int : 406 ms NORMAL SINUS RHYTHM POSSIBLE LEFT ATRIAL ENLARGEMENT LEFT VENTRICULAR HYPERTROPHY ABNORMAL ECG WHEN COMPARED WITH ECG OF 08-APR-2018 14:43, PREMATURE ATRIAL COMPLEXES ARE NO LONGER PRESENT Confirmed by JOVAN MIDDLETON, MADELINE ([id number]) on 04/30/2018 4:57:17 PM Referred By: Confirmed By:MADELINE ALDANA MD
[2018-04-30] MEDS: ROSUVASTATIN CA 20 MG TABLET (FP) PO SCH (21:05)
--- NOTE | 2018-04-30 23:05 | PN ---
Teaching Attending Note Name of Resident: Peri Rene ATTENDING PHYSICIAN STATEMENT I saw and evaluated the patient. I reviewed the resident's note and discussed the case with the resident. I agree with the resident's findings and plan as documented. ASSESSMENT AND PLAN: This is an 88 year old female with a history ESRD on HD, CHF, COPD on home oxygen, HTN , DM , who presented with shortness of breath while getting dialysis found to have severe thrombocytopenia, platelets 27,000. Coagulation studies wnl. Thrombocytopenia ESRD on HD cxr with bibasilar opacities r/o pneumonia-- ID consult/cultures low platelets --?passive congestion ? occult infection ? liver disease ? ITP improving and suspect passive congestion will follow
[2018-05-01] MEDS: INSULIN SLIDING SCALE (NOVOLOG) 1 VIAL SQ SCH ×4 (06:14→22:04)
[2018-05-01 07:04] LABS: ALBUMIN 3.3 g/dl (3.4-5.0); ALK PHOS 45 U/L (45-117); ANION GAP 4 MMOL/L (8-16); BILIRUBIN,TOTAL 0.8 mg/dL (0.2-1); BLOOD UREA NITROGEN 37 mg/dL (7-18); CALCIUM 7.9 mg/dL (8.5-10.1); CHLORIDE 106 mmol/L (98-107); CO2 32 mmol/L (21-32); CREATININE 5.8 mg/dL (0.55-1.3); GLUCOSE,RANDOM 76 mg/dL (74-106); PHOSPHOROUS 3.7 mg/dL (2.5-4.9); POTASSIUM 4.2 mmol/L (3.5-5.1); SGOT/AST 10 U/L (15-37); SGPT/ALT 14 U/L (13-61); SODIUM 142 mmol/L (136-145); TOT PROT 6.1 g/dl (6.4-8.2)
[2018-05-01 09:09] LABS: BASO % 0.4 % (0-2.0); EOS % 2.8 % (0-4.5); HEMATOCRIT 39.3 % (32.4-45.2); HEMOGLOBIN 12.9 GM/dL (10.7-15.3); LYMPH % 20.8 % (8-40); MCH 28.7 pg (25.7-33.7); MCHC 32.7 g/dl (32.0-36.0); MEAN CELL VOLUME 87.7 fl (80-96); MEAN PLT VOLUME 10.4 fl (7.5-11.1); MONO % 9.2 % (3.8-10.2); NEUT % 66.8 % (42.8-82.8); PLATELET COUNT 72 K/MM3 (134-434); RBC 4.49 M/mm3 (3.60-5.2); RDW 18.1 % (11.6-15.6); WHITE BLOOD COUNT 4.6 K/mm3 (4.0-10.0)
[2018-05-01] MEDS ORDERED: PT OWN MED DRAWER 7, Y5N ONE (09:41)
[2018-05-01] MEDS: DOCUSATE SODIUM 100 MG CAPSULE (FP) PO SCH ×2 (10:06→21:57)
[2018-05-01] MEDS: amLODIPine BESYLATE 10 MG TABLET (FP) PO SCH (10:06)
[2018-05-01] MEDS: METOPROLOL TARTRATE 50 MG TABLET (FP) PO SCH ×2 (10:07→21:57)
[2018-05-01] MEDS: LOSARTAN POTASSIUM 50 MG TABLET (FP) PO SCH (10:07)
[2018-05-01] MEDS: FLUTICASONE/SALMETEROL 100 MCG/50 MCG DISKUS IH SCH ×2 (10:09→21:56)
--- NOTE | 2018-05-01 10:35 | PN ---
Progress Note (short form) - Note Progress Note: ID consult dictated [email or web address] asked to see for possible pneumonia 88 you female admitted from hd with chest pain and SOB on 04/29 found to have thrombocytopenia HD started in March no fevers notes intermittent abdominal pain states she has had it for a month treated in January for pneumonia lungs are clear has not completed HD session due to recurrent Chest pain while on HD suspect cxray findings are mild volume overload thrombocytopenia sob do not suspect pneumonia clinically suspect mild volume overload agree with blood cultures HIT antibody pending heme f/u abdominal pain agree with ultrasound of RUQ (normal lfts, normal wbc, no fever or cough) of noted ct scan abd/pelvis in January was notable for gastric thickening- could she have a gastric malignancy esrd/hd history of cad copd home oxygen would continue workup off antibiotics for now Problem List - Problems (1) Shortness of breath Code(s): R06.02 - SHORTNESS OF BREATH (2) Thrombocytopenia Code(s): D69.6 - THROMBOCYTOPENIA, UNSPECIFIED (3) Abdominal pain Code(s): R10.9 - UNSPECIFIED ABDOMINAL PAIN (4) Abnormal CT of the abdomen Code(s): R93.5 - ABN FINDINGS ON DX IMAGING OF ABD REGIONS, INC RETROPERITON (5) ESRD (end stage renal disease) on dialysis Code(s): N18.6 - END STAGE RENAL DISEASE; Z99.2 - DEPENDENCE ON RENAL DIALYSIS
--- NOTE | 2018-05-01 11:30 | CONS ---
DATE OF CONSULTATION: DATE OF DICTATION: 05/01/2018 REQUESTING PHYSICIAN: Fern Harris MD HISTORY OF PRESENT ILLNESS: This is an 88-year-old woman with a past medical history of CKD recently started on dialysis in March. She has a history of CHF, COPD on home oxygen, asthma, GERD, hypertension, diabetes. She is primarily Creole-speaking. She is originally from [facility], has been in this country for 12 years. The history was obtained via [employer] phone as the patient does not speak Kazakh. She lives at home with her daughter. She was sent from dialysis. On the , became fishy, became short of breath, and developed chest pain during dialysis. Symptoms all resolved after she came to the emergency room. She was admitted for further evaluation. At the same time, she was noted to be profoundly thrombocytopenic with a platelet count of 27,000. Prior to dialysis in January, her platelet count was normal, and it started dropping in March and in April, she had 2 admissions, and during the 2nd admission, it was noted to be low. She was treated in January for community-acquired pneumonia, right lower lobe, with Rocephin and Zithromax. She currently has no fever or cough. She notes she has had this right-sided abdominal pain for about 1 month now. She has no cough and she otherwise has no complaints. She notes she has had some constipation. She has no diarrhea. She is able to eat. Food does not affect her abdominal pain at all, and currently, now that she is off dialysis, she has no chest pain. PAST MEDICAL HISTORY: As previously stated is notable for history of end-stage renal disease, recently started dialysis in March, COPD, she is on oxygen at home, congestive heart failure, on her admission in January prior to starting dialysis, she had a moderate pericardial effusion, has a history of hypertension, [id number] diabetes. Surgical history notable for AV fistula. She was admitted in March to start dialysis, was readmitted in April for pulmonary edema. ALLERGIES: She is allergic to EGGS. MEDICATIONS: As an outpatient include Ventolin inhaler, Renvela, Advair, Crestor, Lyrica, metoprolol, Colace, amlodipine, and Tylenol Number 3. FAMILY HISTORY: Noncontributory. SOCIAL HISTORY: She is originally from [facility]. No recent travel. She came here 12 years ago. There is no history of cigarette, alcohol, or substance use. She uses a wheelchair at home. REVIEW OF SYSTEMS: As per HPI. She denies shortness of breath. She currently has no chest pain. She has had this abdominal discomfort for the last month. PHYSICAL EXAMINATION Vital signs: She is afebrile. She has never had any fever since admission. Temperature is 97.8; pulse is 76, blood pressure is 152/68, respiratory rate 18, she weighs 52 kg. HEENT: She is normocephalic. Her eyes are anicteric. Neck: Supple. Lungs: Clear to auscultation. Heart: Regular rate and rhythm. Abdomen: Soft. She has some right upper quadrant discomfort on deep palpation. There is no rebound or guarding. She has good bowel sounds. Extremities: Without edema. AV fistula is without edema. DIAGNOSTIC DATA: Labs are notable for a white count of 4.6, hemoglobin 12.9, platelets are 72,000 (they were 28 on admission). Her BUN is 37, creatinine is 5.8. Troponins are normal. Urinalysis is not done. Her hepatitis antibody is pending. She is hepatitis A positive and hepatitis B core antibody positive and hepatitis C negative. Blood cultures are pending. Chest x-ray is notable for cardiomegaly. There is no clear infiltrate. SUMMARY: This is an 88-year-old woman on hemodialysis admitted with chest pain, shortness of breath, asked to see for possible pneumonia. Her lungs are clear on exam. She has not completed any hemodialysis session due to recurrent chest pain. I would suspect increased markings on her chest x-ray are more consistent with mild volume overload. The etiology of her thrombocytopenia appears to be temporally related to her dialysis. She is now off heparin. I would await her antibody. I would agree with blood cultures for the thrombocytopenia, would agree with ultrasound of the right upper quadrant given the pain she describes for the last month. Of note, a CT scan that was done in January of her abdomen and pelvis was notable for gastric thickening. This would raise the issue of whether she needs endoscopy and whether she has a gastric malignancy. I would continue her workup off antibiotics for now. CARL MADRID M.D. [id number]
--- NOTE | 2018-05-01 13:04 | CON.CARD ---
Consult Consult Specialty:: Cardiology Referred by:: Hospitalist Medicine Reason for Consultation:: Chest pain - History of Present Illness Chief Complaint: Chest pain History of Present Illness: Ms. Crouch is an 87 yo bedbound female w/ pmh of asthma, COPD (on home O2), HTN , nephrolithiasis, frequent UTIs, prior gastrointestinal bleed, ESRD on HD, hyperlipidemia, DM, diastolic dysfunction with h/o failure who presents for shortness of breath, elevated BP and chest pain an hour into HD. Patient speaks creole and her aide was used to help collect history. She denies palpitations, near or true syncope, or LE edema. - History Source History Provided By: Family Member Limitations to Obtaining History: Language Barrier - Past Medical History Cardio/Vascular: Yes: HTN Pulmonary: Yes: COPD Gastrointestinal: Yes: GERD Renal/: Yes: Renal Inusuff, Hemodialysis, Renal Calculi (maybe- she had flank pain) ...: No Endocrine: Yes: Diabetes Mellitus - Past Surgical History Past Surgical History: Yes: AV Fistula/Graft - Alcohol/Substance Use Hx Alcohol Use: No - Smoking History Smoking history: Former smoker Have you smoked in the past 12 months: No Aproximately how many cigarettes per day: 0 Home Medications - Allergies Allergies/Adverse Reactions: Allergies Allergy/AdvReac Type Severity Reaction Status Date / Time egg AdvReac Vomiting Verified 04/29/18 13:24 - Home Medications Home Medications: Ambulatory Orders Acetaminophen W/ Codeine #3 [Tylenol # 3 -] 1 tab PO TID 04/08/18 Amlodipine Besylate 10 mg PO DAILY 04/08/18 Docusate Sodium 100 mg PO BID 04/08/18 Metoprolol Tartrate 50 mg PO BID 04/08/18 Pregabalin [Lyrica -] 150 mg PO BID 04/08/18 Rosuvastatin [Crestor -] 20 mg PO HS 04/08/18 Salmeterol/Fluticasone [Advair 100Mcg/50Mcg -] 1 puff IH BID 04/08/18 Sevelamer Carbonate [Renvela -] 800 mg PO TID 04/08/18 Ventolin HFA Inhaler - 2 puff IH QID 04/08/18 Review of Systems - Review of Systems Cardiovascular: reports: Chest Pain Respiratory: reports: SOB Vital Signs: Vital Signs Temperature 97.8 F 05/01/18 06:00 Pulse Rate 76 05/01/18 06:00 Respiratory Rate 18 05/01/18 06:00 Blood Pressure 152/68 05/01/18 06:00 O2 Sat by Pulse Oximetry (%) 98 04/30/18 19:58 Constitutional: Yes: No Distress, Calm Neck: Yes: Supple Respiratory: Yes: Regular, CTA Bilaterally Gastrointestinal: Yes: Normal Bowel Sounds, Soft Cardiovascular: Yes: Regular Rate and Rhythm JVD: No Carotid Bruit: No Heart Sounds: Yes: S1, S2 Murmur: Yes: Systolic Murmur, Grade 2 Edema: No - Other Data Labs, Other Data: CBC, BMP 05/01/18 08:40 05/01/18 06:00 INR, PTT INR 0.86 (0.83-1.09) 04/30/18 08:50 Troponin, BNP 04/30/18 04/30/18 04/30/18 12:54 20:19 23:34 Troponin I < 0.02 0.02 0.03 05/01/18 08:40 Troponin I 0.02 Troponin, BNP 04/30/18 04/30/18 04/30/18 12:54 20:19 23:34 Troponin I < 0.02 0.02 0.03 05/01/18 08:40 Troponin I 0.02 NSR @ 91 1st deg AVB LVH, PVC Ejection Fraction %: LVEF > or = 40 % Imaging - Results Chest X-ray: Report Reviewed (Retrocardiac and right base infiltrate vs ATX) Problem List - Problems (1) ESRD (end stage renal disease) on dialysis Code(s): N18.6 - END STAGE RENAL DISEASE; Z99.2 - DEPENDENCE ON RENAL DIALYSIS (2) Shortness of breath Code(s): R06.02 - SHORTNESS OF BREATH (3) Acute pulmonary edema Code(s): J81.0 - ACUTE PULMONARY EDEMA (4) Hypertensive urgency Code(s): I16.0 - HYPERTENSIVE URGENCY (5) Diastolic CHF Code(s): I50.30 - UNSPECIFIED DIASTOLIC (CONGESTIVE) HEART FAILURE Qualifiers: Heart failure chronicity: acute on chronic Qualified Code(s): I50.33 - Acute on chronic diastolic (congestive) heart failure (6) Hypercholesterolemia Code(s): E78.00 - PURE HYPERCHOLESTEROLEMIA, UNSPECIFIED (7) Hypertension Code(s): I10 - ESSENTIAL (PRIMARY) HYPERTENSION Qualifiers: Hypertension type: essential hypertension Qualified Code(s): I10 - Essential (primary) hypertension (8) Pulmonary hypertension Code(s): I27.20 - PULMONARY HYPERTENSION, UNSPECIFIED Assessment/Plan 02/11/2018 Echo: Normal LV size and fxn, moderate pericardial effusion, mild- mod MR, severe TR, RVSP>60 04/09/2018 Echo: Normal LV and RV size and fxn, mod TR RVSP 40-50 mmHg, mild MR , small pericardial effusion < 1 cm 05/01/2018 Echo: Normal LV and RV size and fxn LVEF 55-60%, mod TR RVSP 40-50 mmHg, mild MR trace pericardial effusion 1. Acute on chronic diastolic heart failure with pulm HTN resolving 2. Hypertensive urgency 3. ESRD on HD 4. COPD 5. Type 2 DM 6. Hyperlipidemia 7. Pericardial effusion suspect uremic etiology resolving 8. Anemia, thrombocytopenia referable to passive congestion improving P:1. Ruled out for UT, volume removal via HD as tolerated 2. Agree with adding Imdur 30 qd to decrease pulm pressures, continue Norvasc 10 qd, Lopressor 50 bid, Crestor 20 qhs with uptitration as hemodynamics tolerate 3. BD, O2 as needed 4. Lexiscan Myoview r/o ischemia once euvolemic
--- NOTE | 2018-05-01 13:36 | PN ---
Physical Exam: SUBJECTIVE: Patient seen and examined at bedside- no acute events overnight; patient still complaining of slight RUQ pain however denies any CP or shortness of breath OBJECTIVE: Vital Signs Period Temp Pulse Resp BP Sys/Betancourt Pulse Ox Last 24 Hr 97.2 F-98.2 F 69-91 18-20 135-152/56-72 98-98 GENERAL: The patient is awake, alert, and fully oriented, in no acute distress. EYES: PEERLA; eomi; no scleral icterus . NECK: no JVD; no lymhadenopathy LUNGS: CTA B/L; no rales, rhonchi ro wheezing HEART: Regular rate and rhythm, S1, S2 without murmur, rub or gallop. ABDOMEN: Soft, slight RUQ tenderness upon palpation, nondistended, normoactive bowel sounds, no guarding, no rebound, no hepatosplenomegaly, no masses. EXTREMITIES: 2+ pulses, warm, well-perfused, no edema. PSYCH: Normal mood, normal affect. SKIN: Warm, dry, normal turgor, no rashes or lesions noted Laboratory Results - last 24 hr 04/29/18 04/30/18 04/30/18 11:50 12:54 13:30 WBC RBC Hgb Hct MCV MCH MCHC RDW Plt Count MPV Absolute Neuts (auto) Neutrophils % Lymphocytes % Monocytes % Eosinophils % Basophils % Nucleated RBC % Sodium Potassium Chloride Carbon Dioxide Anion Gap BUN Creatinine Creat Clearance w eGFR POC Glucometer 104 Random Glucose Calcium Phosphorus Magnesium Total Bilirubin AST ALT Alkaline Phosphatase Creatine Kinase 39 Troponin I < 0.02 Total Protein Albumin Blood Type A POSITIVE Antibody Screen Negative 04/30/18 04/30/18 04/30/18 17:16 20:19 20:51 WBC RBC Hgb Hct MCV MCH MCHC RDW Plt Count MPV Absolute Neuts (auto) Neutrophils % Lymphocytes % Monocytes % Eosinophils % Basophils % Nucleated RBC % Sodium Potassium Chloride Carbon Dioxide Anion Gap BUN Creatinine Creat Clearance w eGFR POC Glucometer 256 125 Random Glucose Calcium Phosphorus Magnesium Total Bilirubin AST ALT Alkaline Phosphatase Creatine Kinase Troponin I 0.02 Total Protein Albumin Blood Type Antibody Screen 04/30/18 05/01/18 05/01/18 23:34 05:43 06:00 WBC RBC Hgb Hct MCV MCH MCHC RDW Plt Count MPV Absolute Neuts (auto) Neutrophils % Lymphocytes % Monocytes % Eosinophils % Basophils % Nucleated RBC % Sodium 142 Potassium 4.2 Chloride 106 Carbon Dioxide 32 Anion Gap 4 L BUN 37 H Creatinine 5.8 H Creat Clearance w eGFR 6.88 POC Glucometer 78 Random Glucose 76 Calcium 7.9 L Phosphorus 3.7 Magnesium 2.0 Total Bilirubin 0.8 AST 10 L ALT 14 Alkaline Phosphatase 45 Creatine Kinase Troponin I 0.03 Total Protein 6.1 L Albumin 3.3 L Blood Type Antibody Screen 05/01/18 05/01/18 08:40 08:40 WBC 4.6 RBC 4.49 Hgb 12.9 Hct 39.3 MCV 87.7 MCH 28.7 MCHC 32.7 RDW 18.1 H Plt Count 72 L MPV 10.4 Absolute Neuts (auto) 3.1 Neutrophils % 66.8 Lymphocytes % 20.8 D Monocytes % 9.2 Eosinophils % 2.8 D Basophils % 0.4 Nucleated RBC % 0 Sodium Potassium Chloride Carbon Dioxide Anion Gap BUN Creatinine Creat Clearance w eGFR POC Glucometer Random Glucose Calcium Phosphorus Magnesium Total Bilirubin AST ALT Alkaline Phosphatase Creatine Kinase Troponin I 0.02 Total Protein Albumin Blood Type Antibody Screen Active Medications Generic Name Dose Route Start Last Admin Trade Name Freq PRN Reason Stop Dose Admin Amlodipine Besylate 10 mg 05/01/18 10:00 Norvasc - PO DAILY FORREST Docusate Sodium 100 mg 04/30/18 22:00 04/30/18 21:05 Colace - PO 100 mg BID FORREST Administration Insulin Aspart 1 vial 04/30/18 22:00 05/01/18 06:14 Novolog Vial Sliding Scale - SQ Not Given ACHS FORREST Protocol Losartan Potassium 50 mg 04/30/18 13:30 04/30/18 13:51 Cozaar - PO 50 mg DAILY FORREST Administration Metoprolol Tartrate 50 mg 04/30/18 22:00 04/30/18 21:05 Lopressor - PO 50 mg BID FORREST Administration Rosuvastatin Calcium 20 mg 04/30/18 22:00 04/30/18 21:05 Crestor - PO 20 mg HS FORREST Administration Fluticasone/Salmeterol 1 puff 04/30/18 22:00 05/01/18 10:09 Advair 100mcg/50mcg - IH 1 puff BID FORREST Administration ASSESSMENT/PLAN: Patient is a 88yo creol speaking Female with PMHx of ESRD (M/W/F), 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 Patient was send to ED. for further care and was found to have low platelets of 27K. #Thrombocytopenia acutely lower than baseline - improving this AM 72,000 * DDx includes HIT (heparin during dialysis sessions), ITP, lab error * B12 and folate WNL * HIT antibody peniing , avoid Heparine or LMWH * Monitor for signs of bleeding * Hematology consulted- * ultrasound showed either fatty infiltration v. passive congestion #chest pain during HD and Shortness of breath * transfer to tele * cardiology consulted recommend losartan 50 daily, cont Norvasc and lopressor added imdur 30 today, * going for stress tonight * # Abdominal pain likley due to contipation will start colace 100 po BID and US pending , # ESRD on MWF HD * going today for HD- add imdur to hopefully decrease chest pain * Nephro on board DR Griffin recomendation appreciated # HTN , resume home meds # HLD: cont Crestor 20 mg HS #DM * BGM ACHS; ISS * Hold oral agents # H/O CHF and H/O COPD not in exacerbation #FEN: F: No standing fluids E: monitor and replinished as needed Nutrition: Renal diabetic diet #PPX: DVT - Mod risk; avoid prophylaxis due to severe thrombocytopenia, scds GI - Not indicated Visit type - Emergency Visit Emergency Visit: Yes ED Registration Date: 04/30/18 Care time: The patient presented to the Emergency Department on the above date and was hospitalized for further evaluation of their emergent condition. - New Patient This patient is new to me today: Yes Date on this admission: 05/01/18 - Critical Care Critical Care patient: No
--- NOTE | 2018-05-01 13:39 | PN ---
Teaching Attending Note Name of Resident: Basia Stevens ATTENDING PHYSICIAN STATEMENT I saw and evaluated the patient. I reviewed the resident's note and discussed the case with the resident. I agree with the resident's findings and plan as documented. SUBJECTIVE: Patient is feeling better but c/o having chest pain every time she goes into dialysis. OBJECTIVE: Vital Signs Temperature 97.8 F 05/01/18 06:00 Pulse Rate 76 05/01/18 06:00 Respiratory Rate 18 05/01/18 06:00 Blood Pressure 152/68 05/01/18 06:00 O2 Sat by Pulse Oximetry (%) 98 04/30/18 19:58 GENERAL: NAD, awake, alert, and fully oriented HEENT: Nc/AT, EOMI, MARZENA, sclera anicteric, no mucosal ulcerations, MMM, no JVD noted LUNGS: CTA bilaterally. No wheezes, and no crackles. No accessory muscle use. On 2.5L at home. HEART: RRR, normal S1 and S2 without murmur ABDOMEN: Soft, NT/ND, normoactive bowel sounds, no guarding, No hepatomegaly per palpation, no splenomegaly per palpation. MUSCULOSKELETAL: Contracted lower extremities, no CVA tenderness. EXTREMITIES: LUE AV fistula with palpable thrill, bandages overlying without blood, 1+ pulses in other 3 limbs, warm, No peripheral edema. PSYCHIATRIC: Cooperative. Good eye contact. Appropriate mood and affect. SKIN: Warm, dry, no rashes or lesions noted including palpable purpura CBCD WBC 4.6 K/mm3 (4.0-10.0) 05/01/18 08:40 RBC 4.49 M/mm3 (3.60-5.2) 05/01/18 08:40 Hgb 12.9 GM/dL (10.7-15.3) 05/01/18 08:40 Hct 39.3 % (32.4-45.2) 05/01/18 08:40 MCV 87.7 fl (80-96) 05/01/18 08:40 MCHC 32.7 g/dl (32.0-36.0) 05/01/18 08:40 RDW 18.1 % (11.6-15.6) H 05/01/18 08:40 Plt Count 72 K/MM3 (134-434) L 05/01/18 08:40 MPV 10.4 fl (7.5-11.1) 05/01/18 08:40 CMP Sodium 142 mmol/L (136-145) 05/01/18 06:00 Potassium 4.2 mmol/L (3.5-5.1) 05/01/18 06:00 Chloride 106 mmol/L (98-107) 05/01/18 06:00 Carbon Dioxide 32 mmol/L (21-32) 05/01/18 06:00 Anion Gap 4 MMOL/L (8-16) L 05/01/18 06:00 BUN 37 mg/dL (7-18) H 05/01/18 06:00 Creatinine 5.8 mg/dL (0.55-1.3) H 05/01/18 06:00 Creat Clearance w eGFR 6.88 (>60) 05/01/18 06:00 Random Glucose 76 mg/dL (74-106) 05/01/18 06:00 Calcium 7.9 mg/dL (8.5-10.1) L 05/01/18 06:00 Total Bilirubin 0.8 mg/dL (0.2-1) 05/01/18 06:00 AST 10 U/L (15-37) L 05/01/18 06:00 ALT 14 U/L (13-61) 05/01/18 06:00 Alkaline Phosphatase 45 U/L (45-117) 05/01/18 06:00 Total Protein 6.1 g/dl (6.4-8.2) L 05/01/18 06:00 Albumin 3.3 g/dl (3.4-5.0) L 05/01/18 06:00 CARDIAC ENZYMES Creatine Kinase 39 U/L (26-192) 04/30/18 12:54 Troponin I 0.02 ng/ml (0.00-0.05) 05/01/18 08:40 Current Medications Generic Name Dose Route Start Last Admin Trade Name Nileq PRN Reason Stop Dose Admin Amlodipine Besylate 10 mg 05/01/18 10:00 Norvasc - PO DAILY FORREST Docusate Sodium 100 mg 04/30/18 22:00 04/30/18 21:05 Colace - PO 100 mg BID FORREST Administration Insulin Aspart 1 vial 04/30/18 22:00 05/01/18 06:14 Novolog Vial Sliding Scale - SQ Not Given ACHS FORREST Protocol Losartan Potassium 50 mg 04/30/18 13:30 04/30/18 13:51 Cozaar - PO 50 mg DAILY FORREST Administration Metoprolol Tartrate 50 mg 04/30/18 22:00 04/30/18 21:05 Lopressor - PO 50 mg BID FORREST Administration Rosuvastatin Calcium 20 mg 04/30/18 22:00 04/30/18 21:05 Crestor - PO 20 mg HS FORREST Administration Fluticasone/Salmeterol 1 puff 04/30/18 22:00 05/01/18 10:09 Advair 100mcg/50mcg - IH 1 puff BID FORREST Administration Home Medications Medication Instructions Recorded Acetaminophen W/ Codeine #3 1 tab PO TID 04/08/18 [Tylenol # 3 -] Amlodipine Besylate 10 mg PO DAILY 04/08/18 Docusate Sodium 100 mg PO BID 04/08/18 Metoprolol Tartrate 50 mg PO BID 04/08/18 Pregabalin [Lyrica -] 150 mg PO BID 04/08/18 Rosuvastatin [Crestor -] 20 mg PO HS 04/08/18 Salmeterol/Fluticasone [Advair 1 puff IH BID 04/08/18 100Mcg/50Mcg -] Sevelamer Carbonate [Renvela -] 800 mg PO TID 04/08/18 Ventolin HFA Inhaler - 2 puff IH QID 04/08/18 ASSESSMENT AND PLAN: Patient is a 88yo creol speaking Female with PMHx of ESRD (M/W/F), 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 Patient was send to ED. for further care and was found to have low platelets of 27K. #Acute thrombocytopenia 27k--28k--> 68k-->72K today, follow HIT2 level since patient a dialysis patient and receives HEPARIN during dialysis. FOR CONSULT appreciated. # Acute chest pain during dialysis will need to r/o ischemia , will place the patient on Imdur 30mg dily discussed with and Nina, will dialysis her in am. also stress test on friday as per . #ESRD on HD, on the case. #Hypophosphatemia : patient is a dialysis patient. # hx of COPD (not in exacerbation)continue home meds. # Hx of CHF (not in exacerbation) # hx of HTN continue home meds. # hx of DM ss with coverage. DVT Px; SCDs patient is bedridden. FALL PRECAUTION, BED ALARM.
--- NOTE | 2018-05-01 13:50 | ECHO ---
Name: BRIAN ONEILL Olivia Exam:Adult Echocardiogram Study Date: 05/01/2018 11:45 AM Age: 88 yrs Reason For Study: chest pain sob Height: 62 in Weight: 127 lb BSA: 1.6 m2 MMode/2D Measurements & Calculations IVSd: 1.0 cm Ao root diam: 2.6 cm LVIDd: 5.1 cm LA dimension: 2.9 cm LVIDs: 3.1 cm LVPWd: 0.93 cm LVPWs: 2.2 cm EDV(Teich): 123.4 ml ESV(Teich): 37.1 ml LVOT diam: 1.8 cm TAPSE: 1.7 cm RV S Edinson: 12.2 cm/sec Doppler Measurements & Calculations MV E max edinson: 48.9 cm/sec Ao V2 max: 168.1 cm/sec MV A max edinson: 92.8 cm/sec Ao max P.3 mmHg MV E/A: 0.53 Ao V2 mean: 115.2 cm/sec MV dec time: 0.13 sec Ao mean P.0 mmHg Ao V2 VTI: 38.7 cm SRAVANTHI(I,D): 2.4 cm2 SRAVANTHI(V,D): 2.2 cm2 LV V1 max P.0 mmHg SV(LVOT): 94.8 ml LV V1 mean P.8 mmHg LV V1 max: 139.5 cm/sec LV V1 mean: 90.8 cm/sec LV V1 VTI: 35.8 cm TR max edinson: 337.8 cm/sec PA V2 max: 109.3 cm/sec TR max P.9 mmHg PA max P.8 mmHg PI end-d edinson: 167.6 cm/sec Med Peak E' Edinson: 3.6 cm/sec Med E/e': 13.5 Lat Peak E' Edinson: 3.0 cm/sec Lat E/e': 16.2 Left Ventricle Ejection Fraction = 55-60%. The transmitral spectral Doppler flow pattern is suggestive of impaired L V relaxation. Right Ventricle The right ventricle is normal in size and function. Atria The left atrium is borderline dilated. Right atrial size is normal. The atrial septum is aneurysmal. Mitral Valve There is mild mitral annular calcification. There is no mitral valve stenosis. There is mild mitral regurgitation. Tricuspid Valve The tricuspid valve is normal in structure and function. There is moderate tricuspid regurgitation. R ight ventricular systolic pressure is elevated at 40-50mmHg. Aortic Valve The aortic valve opens well. No hemodynamically significant valvular aortic stenosis. No aortic regur gitation is present. Pulmonic Valve The pulmonic valve is not well seen, but is grossly normal. There is no pulmonic valvular stenosis. M ild pulmonic valvular regurgitation. Great Vessels The aortic root is normal size. Pericardium/Pleura Trivial pericardial effusion not hemodynamically significant. Interpretation Summary Trivial pericardial effusion not hemodynamically significant Ejection Fraction = 55-60%. The transmitral spectral Doppler flow pattern is suggestive of impaired LV relaxation. The right ventricle is normal in size and function. There is mild mitral annular calcification. There is mild mitral regurgitation. There is moderate tricuspid regurgitation. Right ventricular systolic pressure is elevated at 40-50mmHg. The atrial septum is aneurysmal. MD Cunningham *Chitra 05/01/2018 01:49 PM
[2018-05-01] MEDS: ISOSORBIDE MONONITRATE 30 MG TAB.SR.24H (FP) PO SCH (15:05)
[2018-05-01] MEDS ORDERED: SODIUM CHLORIDE 250 ML IV PRN (15:44)
--- NOTE | 2018-05-01 15:44 | PN ---
Progress Note, Physician History of Present Illness: Pt seen and examined at bedside. She is awake and alert. She appears comfortable. Family are at bedside. - Current Medication List Current Medications: Active Medications Amlodipine Besylate (Norvasc -) 10 mg PO DAILY [facility] Docusate Sodium (Colace -) 100 mg PO BID [facility] Last Admin: 04/30/18 21:05 Dose: 100 mg Insulin Aspart (Novolog Vial Sliding Scale -) 1 vial SQ ACHS [facility]; Protocol Last Admin: 05/01/18 06:14 Dose: Not Given Isosorbide Mononitrate (Imdur -) 30 mg PO DAILY [facility] Losartan Potassium (Cozaar -) 50 mg PO DAILY [facility] Last Admin: 04/30/18 13:51 Dose: 50 mg Metoprolol Tartrate (Lopressor -) 50 mg PO BID [facility] Last Admin: 04/30/18 21:05 Dose: 50 mg Rosuvastatin Calcium (Crestor -) 20 mg PO HS [facility] Last Admin: 04/30/18 21:05 Dose: 20 mg Fluticasone/Salmeterol (Advair 100mcg/50mcg -) 1 puff IH BID [facility] Last Admin: 05/01/18 10:09 Dose: 1 puff - Objective Vital Signs: Vital Signs Temperature 98.9 F 05/01/18 13:20 Pulse Rate 87 05/01/18 13:20 Respiratory Rate 16 05/01/18 13:20 Blood Pressure 162/78 05/01/18 13:20 O2 Sat by Pulse Oximetry (%) 98 04/30/18 19:58 Constitutional: Yes: Calm Eyes: Yes: Conjunctiva Clear HENT: Yes: Atraumatic Cardiovascular: Yes: S1, S2 Respiratory: Yes: On Nasal O2 Gastrointestinal: Yes: Soft Genitourinary: Yes: WNL Musculoskeletal: Yes: WNL Edema: Yes Edema: LLE: Trace, RLE: Trace Neurological: Yes: Oriented Psychiatric: Yes: Oriented Labs: CBC, BMP 05/01/18 08:40 05/01/18 06:00 INR, PTT INR 0.86 (0.83-1.09) 04/30/18 08:50 Assessment/Plan Current Medications Generic Name Dose Route Start Last Admin Trade Name Freq PRN Reason Stop Dose Admin Amlodipine Besylate 10 mg 05/01/18 10:00 Norvasc - PO DAILY [facility] Docusate Sodium 100 mg 04/30/18 22:00 04/30/18 21:05 Colace - PO 100 mg BID [facility] Administration Insulin Aspart 1 vial 04/30/18 22:00 05/01/18 06:14 Novolog Vial Sliding Scale - SQ Not Given ACHS [facility] Protocol Isosorbide Mononitrate 30 mg 05/01/18 14:15 Imdur - PO DAILY [facility] Losartan Potassium 50 mg 04/30/18 13:30 04/30/18 13:51 Cozaar - PO 50 mg DAILY [facility] Administration Metoprolol Tartrate 50 mg 04/30/18 22:00 04/30/18 21:05 Lopressor - PO 50 mg BID [facility] Administration Rosuvastatin Calcium 20 mg 04/30/18 22:00 04/30/18 21:05 Crestor - PO 20 mg HS [facility] Administration Fluticasone/Salmeterol 1 puff 04/30/18 22:00 05/01/18 10:09 Advair 100mcg/50mcg - IH 1 puff BID [facility] Administration Impression 1. ESRD 2. HTN 3. HLD 4. COPD 5. DM 6. pos heb b core 7. abd pain 8. vomiting 9. anemia 10. pericardial effusion 11. thrombocytopenia 12. chest pain 13. angina Plan - case discussed with medical team - imdur started today - HD tomorrow, low flow, will monitor for chest pain - platelets improving, hit abs pending - citrate bath on HD - pt to get cardiac stress test - PD is not an option for this patient as she can not do it herself and there is noone at home to help, spoke to family again. - will follow Dr Reis
[2018-05-01] MEDS: ROSUVASTATIN CA 20 MG TABLET (FP) PO SCH (21:57)
[2018-05-02] MEDS: INSULIN SLIDING SCALE (NOVOLOG) 1 VIAL SQ SCH ×4 (06:08→21:44)
[2018-05-02 06:41] LABS: HEMATOCRIT 34.7 % (32.4-45.2); HEMOGLOBIN 11.3 GM/dL (10.7-15.3); MCH 28.2 pg (25.7-33.7); MCHC 32.5 g/dl (32.0-36.0); MEAN CELL VOLUME 86.8 fl (80-96); PLATELET COUNT 104 K/MM3 (134-434); RDW 18.3 % (11.6-15.6); WHITE BLOOD COUNT 4.2 K/mm3 (4.0-10.0)
[2018-05-02 07:23] LABS: ALBUMIN 3.5 g/dl (3.4-5.0); ALK PHOS 49 U/L (45-117); ANION GAP 7 MMOL/L (8-16); BILIRUBIN,TOTAL 1.1 mg/dL (0.2-1); BLOOD UREA NITROGEN 54 mg/dL (7-18); CALCIUM 8.2 mg/dL (8.5-10.1); CHLORIDE 104 mmol/L (98-107); CO2 31 mmol/L (21-32); CREATININE 6.5 mg/dL (0.55-1.3); GLUCOSE,RANDOM 85 mg/dL (74-106); MAGNESIUM 1.9 mg/dL (1.8-2.4); PHOSPHOROUS 4.3 mg/dL (2.5-4.9); POTASSIUM 3.6 mmol/L (3.5-5.1); SGOT/AST 11 U/L (15-37); SGPT/ALT 13 U/L (13-61); SODIUM 142 mmol/L (136-145); TOT PROT 6.4 g/dl (6.4-8.2)
--- NOTE | 2018-05-02 08:32 | PN ---
Progress Note (short form) - Note Progress Note: Chief Complaint: Events noted, notes reviewed, denies any chest pain or dyspnea , HD session in progress at the bedside History of Present Illness: Seen and examined on telemetry. Events noted, notes reviewed, denies any chest pain or dyspnea, HD session in progress at the bedside 02/11/2018 Echo: Normal LV size and fxn, moderate pericardial effusion, mild- mod MR, severe TR, RVSP>60 04/09/2018 Echo: Normal LV and RV size and fxn, mod TR RVSP 40-50 mmHg, mild MR , small pericardial effusion < 1 cm 05/01/2018 Echo: Normal LV and RV size and fxn LVEF 55-60%, mod TR RVSP 40-50 mmHg, mild MR trace pericardial effusion - Current Medication List Current Medications: Current Medications Amlodipine Besylate (Norvasc -) 10 mg PO DAILY [facility] Last Admin: 05/01/18 10:06 Dose: 10 mg Docusate Sodium (Colace -) 100 mg PO BID [facility] Last Admin: 05/01/18 21:57 Dose: 100 mg Sodium Chloride (Normal Saline -) 250 mls @ 3,000 mls/hr IV PRN PRN PRN Reason: Hypotension during Dialysis Stop: 05/02/18 15:44 Insulin Aspart (Novolog Vial Sliding Scale -) 1 vial SQ ACHS [facility]; Protocol Last Admin: 05/02/18 06:08 Dose: Not Given Isosorbide Mononitrate (Imdur -) 30 mg PO DAILY [facility] Last Admin: 05/01/18 15:05 Dose: 30 mg Losartan Potassium (Cozaar -) 50 mg PO DAILY [facility] Last Admin: 05/01/18 10:07 Dose: 50 mg Metoprolol Tartrate (Lopressor -) 50 mg PO BID [facility] Last Admin: 05/01/18 21:57 Dose: 50 mg Rosuvastatin Calcium (Crestor -) 20 mg PO HS [facility] Last Admin: 05/01/18 21:57 Dose: 20 mg Fluticasone/Salmeterol (Advair 100mcg/50mcg -) 1 puff IH BID [facility] Last Admin: 05/01/18 21:56 Dose: 1 puff Review of Systems Cardiovascular: As noted above Respiratory: denies: denies: Cough or Sputum Production Gastrointestinal: denies: Nausea, Vomiting, Diarrhea, Constipation or Abdominal Discomfort Musculoskeletal: No Symptoms Reported Endocrine: No Symptoms Reported - Objective Vital Signs: Last Vital Signs Temp Pulse Resp BP Pulse Ox 98.4 F 100 H 18 173/96 H 95 05/02/18 06:50 05/02/18 08:00 05/02/18 08:00 05/02/18 08:00 05/01/18 21:00 Intake & Output 04/29/18 04/30/18 05/01/18 05/02/18 23:59 23:59 23:59 23:59 Intake Total 200 1040 880 100 Balance 200 1040 880 100 Weight 127 lb 3.2 oz 116 lb 12.8 oz Constitutional: No Distress Neck: Supple Negative JVD No Bruit Cardiovascular: S1 S2 Regular Rate Rhythm Respiratory: Diminished Breath Sounds Bilaterally Gastrointestinal: Soft Benign Normal Bowel Sounds Ext: No Edema Labs: Troponin, BNP 05/01/18 08:40 Troponin I 0.02 CBC, BMP 05/02/18 05:45 05/02/18 05:45 Hepatic Panel Total Bilirubin 1.1 mg/dL (0.2-1) H 05/02/18 05:45 AST 11 U/L (15-37) L 05/02/18 05:45 ALT 13 U/L (13-61) 05/02/18 05:45 Alkaline Phosphatase 49 U/L (45-117) 05/02/18 05:45 Albumin 3.5 g/dl (3.4-5.0) 05/02/18 05:45 Assessment/Plan ASSESSMENT: 1. 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 Hypertensive urgency, resolved 3. CAD angina pectoris 4. DM 5. Hyperlipidemia 6. Pericardial effusion, probably uremic 7. COPD 8. ESRD on HD 9. Anemia and thrombocytopenia PLAN: 1. HD as per renal service 2. Continue Imdur 3. Continue Norvasc 4. Continue Lopressor 5. Continue Cozaaar 6. Continue Crestor 7. Pharmacologic MPI study once clinically euvolemic Karen Garcia MD
[2018-05-02] MEDS: amLODIPine BESYLATE 10 MG TABLET (FP) PO SCH (10:40)
[2018-05-02] MEDS: DOCUSATE SODIUM 100 MG CAPSULE (FP) PO SCH ×2 (10:40→21:46)
[2018-05-02] MEDS: ISOSORBIDE MONONITRATE 30 MG TAB.SR.24H (FP) PO SCH (10:40)
[2018-05-02] MEDS: LOSARTAN POTASSIUM 50 MG TABLET (FP) PO SCH (10:41)
[2018-05-02] MEDS: METOPROLOL TARTRATE 50 MG TABLET (FP) PO SCH ×2 (10:41→21:46)
[2018-05-02] MEDS: FLUTICASONE/SALMETEROL 100 MCG/50 MCG DISKUS IH SCH ×2 (10:49→21:46)
--- NOTE | 2018-05-02 15:07 | PN ---
Progress Note, Physician History of Present Illness: Pt seen and examined at bedside. She is awake and alert. She tolerated HD today. She did not have any chest pain. - Current Medication List Current Medications: Active Medications Amlodipine Besylate (Norvasc -) 10 mg PO DAILY [facility] Last Admin: 05/02/18 10:40 Dose: 10 mg Docusate Sodium (Colace -) 100 mg PO BID [facility] Last Admin: 05/02/18 10:40 Dose: 100 mg Sodium Chloride (Normal Saline -) 250 mls @ 3,000 mls/hr IV PRN PRN PRN Reason: Hypotension during Dialysis Stop: 05/02/18 15:44 Insulin Aspart (Novolog Vial Sliding Scale -) 1 vial SQ ACHS [facility]; Protocol Last Admin: 05/02/18 10:56 Dose: 2 units Isosorbide Mononitrate (Imdur -) 30 mg PO DAILY [facility] Last Admin: 05/02/18 10:40 Dose: 30 mg Losartan Potassium (Cozaar -) 50 mg PO DAILY [facility] Last Admin: 05/02/18 10:41 Dose: 50 mg Metoprolol Tartrate (Lopressor -) 50 mg PO BID [facility] Last Admin: 05/02/18 10:41 Dose: 50 mg Rosuvastatin Calcium (Crestor -) 20 mg PO HS [facility] Last Admin: 05/01/18 21:57 Dose: 20 mg Fluticasone/Salmeterol (Advair 100mcg/50mcg -) 1 puff IH BID [facility] Last Admin: 05/02/18 10:49 Dose: 1 puff - Objective Vital Signs: Vital Signs Temperature 98.2 F 05/02/18 14:00 Pulse Rate 78 05/02/18 14:00 Respiratory Rate 18 05/02/18 14:00 Blood Pressure 130/65 05/02/18 14:00 O2 Sat by Pulse Oximetry (%) 100 05/02/18 09:00 Constitutional: Yes: Calm Eyes: Yes: Conjunctiva Clear HENT: Yes: Atraumatic Neck: Yes: Supple Cardiovascular: Yes: S1, S2 Respiratory: Yes: On Nasal O2 Gastrointestinal: Yes: Soft Genitourinary: Yes: WNL Musculoskeletal: Yes: WNL Edema: No Neurological: Yes: Oriented Psychiatric: Yes: Oriented Labs: CBC, BMP 05/02/18 05:45 05/02/18 05:45 INR, PTT INR 0.86 (0.83-1.09) 04/30/18 08:50 Problem List - Problems (1) ESRD (end stage renal disease) on dialysis Code(s): N18.6 - END STAGE RENAL DISEASE; Z99.2 - DEPENDENCE ON RENAL DIALYSIS Assessment/Plan Current Medications Generic Name Dose Route Start Last Admin Trade Name Freq PRN Reason Stop Dose Admin Amlodipine Besylate 10 mg 05/01/18 10:00 05/02/18 10:40 Norvasc - PO 10 mg DAILY [facility] Administration Docusate Sodium 100 mg 04/30/18 22:00 05/02/18 10:40 Colace - PO 100 mg BID [facility] Administration Sodium Chloride 250 mls @ 3,000 mls/hr 05/01/18 15:44 Normal Saline - IV 05/02/18 15:44 PRN PRN Hypotension during Dialysis Insulin Aspart 1 vial 04/30/18 22:00 05/02/18 10:56 Novolog Vial Sliding Scale - SQ 2 units ACHS [facility] Administration Protocol Isosorbide Mononitrate 30 mg 05/01/18 14:15 05/02/18 10:40 Imdur - PO 30 mg DAILY [facility] Administration Losartan Potassium 50 mg 04/30/18 13:30 05/02/18 10:41 Cozaar - PO 50 mg DAILY [facility] Administration Metoprolol Tartrate 50 mg 04/30/18 22:00 05/02/18 10:41 Lopressor - PO 50 mg BID [facility] Administration Rosuvastatin Calcium 20 mg 04/30/18 22:00 05/01/18 21:57 Crestor - PO 20 mg HS [facility] Administration Fluticasone/Salmeterol 1 puff 04/30/18 22:00 05/02/18 10:49 Advair 100mcg/50mcg - IH 1 puff BID [facility] Administration Laboratory Tests 04/29/18 05/02/18 17:28 05:45 Plt Count 104 L D Heparin-Ind Plt Ab Scrn 0.298 Impression 1. ESRD 2. HTN 3. HLD 4. COPD 5. DM 6. pos heb b core 7. abd pain 8. vomiting 9. anemia 10. pericardial effusion 11. thrombocytopenia 12. chest pain 13. angina Plan - cont with imdur - stress test on Friday - pt tolerated HD today - low blood flow on HD, 300 cc - platelets improved and HIT ab neg Dr Reis
--- NOTE | 2018-05-02 20:26 | PN ---
Progress Note (short form) - Note Progress Note: Patient is feeling better, had dialysis today without any chest pain. Vital Signs Temperature 98.9 F 05/02/18 17:59 Pulse Rate 74 05/02/18 17:59 Respiratory Rate 20 05/02/18 17:59 Blood Pressure 137/67 05/02/18 17:59 O2 Sat by Pulse Oximetry (%) 100 05/02/18 09:00 GENERAL: NAD, awake, alert, and fully oriented HEENT: Nc/AT, EOMI, MARZENA, sclera anicteric, no mucosal ulcerations, MMM, no JVD noted LUNGS: CTA bilaterally. No wheezes, and no crackles. No accessory muscle use. On 2.5L at home. HEART: RRR, normal S1 and S2 without murmur ABDOMEN: Soft, NT/ND, normoactive bowel sounds, no guarding, No hepatomegaly per palpation, no splenomegaly per palpation. MUSCULOSKELETAL: Contracted lower extremities, no CVA tenderness. EXTREMITIES: LUE AV fistula with palpable thrill, bandages overlying without blood, 1+ pulses in other 3 limbs, warm, No peripheral edema. PSYCHIATRIC: Cooperative. Good eye contact. Appropriate mood and affect. SKIN: Warm, dry, no rashes or lesions noted including palpable purpuraCBCD WBC 4.2 K/mm3 (4.0-10.0) 05/02/18 05:45 RBC 4.00 M/mm3 (3.60-5.2) 05/02/18 05:45 Hgb 11.3 GM/dL (10.7-15.3) 05/02/18 05:45 Hct 34.7 % (32.4-45.2) 05/02/18 05:45 MCV 86.8 fl (80-96) 05/02/18 05:45 MCHC 32.5 g/dl (32.0-36.0) 05/02/18 05:45 RDW 18.3 % (11.6-15.6) H 05/02/18 05:45 Plt Count 104 K/MM3 (134-434) L D 05/02/18 05:45 MPV 10.0 fl (7.5-11.1) 05/02/18 05:45 CMP Sodium 142 mmol/L (136-145) 05/02/18 05:45 Potassium 3.6 mmol/L (3.5-5.1) 05/02/18 05:45 Chloride 104 mmol/L (98-107) 05/02/18 05:45 Carbon Dioxide 31 mmol/L (21-32) 05/02/18 05:45 Anion Gap 7 MMOL/L (8-16) L 05/02/18 05:45 BUN 54 mg/dL (7-18) H 05/02/18 05:45 Creatinine 6.5 mg/dL (0.55-1.3) H 05/02/18 05:45 Creat Clearance w eGFR 6.03 (>60) 05/02/18 05:45 Random Glucose 85 mg/dL (74-106) 05/02/18 05:45 Calcium 8.2 mg/dL (8.5-10.1) L 05/02/18 05:45 Total Bilirubin 1.1 mg/dL (0.2-1) H 05/02/18 05:45 AST 11 U/L (15-37) L 05/02/18 05:45 ALT 13 U/L (13-61) 05/02/18 05:45 Alkaline Phosphatase 49 U/L (45-117) 05/02/18 05:45 Total Protein 6.4 g/dl (6.4-8.2) 05/02/18 05:45 Albumin 3.5 g/dl (3.4-5.0) 05/02/18 05:45 CARDIAC ENZYMES Creatine Kinase 39 U/L (26-192) 04/30/18 12:54 Troponin I 0.02 ng/ml (0.00-0.05) 05/01/18 08:40 Current Medications Generic Name Dose Route Start Last Admin Trade Name Freq PRN Reason Stop Dose Admin Amlodipine Besylate 10 mg 05/01/18 10:00 05/02/18 10:40 Norvasc - PO 10 mg DAILY [facility] Administration Docusate Sodium 100 mg 04/30/18 22:00 05/02/18 10:40 Colace - PO 100 mg BID [facility] Administration Sodium Chloride 250 mls @ 3,000 mls/hr 05/01/18 15:44 Normal Saline - IV 05/02/18 15:44 PRN PRN Hypotension during Dialysis Insulin Aspart 1 vial 04/30/18 22:00 05/02/18 17:03 Novolog Vial Sliding Scale - SQ Not Given ACHS [facility] Protocol Isosorbide Mononitrate 30 mg 05/01/18 14:15 05/02/18 10:40 Imdur - PO 30 mg DAILY [facility] Administration Losartan Potassium 50 mg 04/30/18 13:30 05/02/18 10:41 Cozaar - PO 50 mg DAILY [facility] Administration Metoprolol Tartrate 50 mg 04/30/18 22:00 05/02/18 10:41 Lopressor - PO 50 mg BID [facility] Administration Rosuvastatin Calcium 20 mg 04/30/18 22:00 05/01/18 21:57 Crestor - PO 20 mg HS [facility] Administration Fluticasone/Salmeterol 1 puff 04/30/18 22:00 05/02/18 10:49 Advair 100mcg/50mcg - IH 1 puff BID [facility] Administration Home Medications Medication Instructions Recorded RX: Acetaminophen W/ Codeine #3 1 tab PO TID 04/08/18 [Tylenol # 3 -] RX: Amlodipine Besylate 10 mg PO DAILY 04/08/18 RX: Docusate Sodium 100 mg PO BID 04/08/18 RX: Metoprolol Tartrate 50 mg PO BID 04/08/18 RX: Pregabalin [Lyrica -] 150 mg PO BID 04/08/18 RX: Rosuvastatin [Crestor -] 20 mg PO HS 04/08/18 RX: Salmeterol/Fluticasone [Advair 1 puff IH BID 04/08/18 100Mcg/50Mcg -] RX: Sevelamer Carbonate [Renvela -] 800 mg PO TID 04/08/18 Ventolin HFA Inhaler - 2 puff IH QID 04/08/18 Assessment/plan: Patient is a 88yo creol speaking Female with PMHx of ESRD (M/W/F), 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 Patient was send to ED. for further care and was found to have low platelets of 27K. #Acute thrombocytopenia 27k--28k--> 68k-->72K-->104 today, follow HIT2 antibodies are Negative. FOR CONSULT appreciated. # Acute chest pain during dialysis resolved post adding Imdur 30mg po daily , will need stress test to r/o ischemia. will have stress test on Friday. Discussed with Cardio And . #ESRD on HD(MWF) , on the case. #Hypophosphatemia : patient is a dialysis patient. # hx of COPD (not in exacerbation)continue home meds. # Hx of CHF (not in exacerbation) # hx of HTN continue home meds. # hx of DM ss with coverage. DVT Px; SCDs patient is bedridden. FALL PRECAUTION, BED ALARM. Visit type - Emergency Visit Emergency Visit: Yes ED Registration Date: 04/30/18 Care time: The patient presented to the Emergency Department on the above date and was hospitalized for further evaluation of their emergent condition. - New Patient This patient is new to me today: No - Critical Care Critical Care patient: No - Discharge Referral Referred to [facility] Med [facility].: No
[2018-05-02] MEDS ORDERED: PT OWN MED DRAWER 7, Y5N ONE (21:30)
[2018-05-02] MEDS: ROSUVASTATIN CA 20 MG TABLET (FP) PO SCH (21:46)
[2018-05-03] MEDS: INSULIN SLIDING SCALE (NOVOLOG) 1 VIAL SQ SCH ×4 (06:01→22:13)
--- NOTE | 2018-05-03 07:46 | PN ---
Progress Note (short form) - Note Progress Note: Chief Complaint: Events noted, notes reviewed, denies any chest pain or dyspnea History of Present Illness: Seen and examined on telemetry. Events noted, notes reviewed, denies any chest pain or dyspnea 02/11/2018 Echo: Normal LV size and fxn, moderate pericardial effusion, mild- mod MR, severe TR, RVSP>60 04/09/2018 Echo: Normal LV and RV size and fxn, mod TR RVSP 40-50 mmHg, mild MR , small pericardial effusion < 1 cm 05/01/2018 Echo: Normal LV and RV size and fxn LVEF 55-60%, mod TR RVSP 40-50 mmHg, mild MR trace pericardial effusion - Current Medication List Current Medications: Current Medications Amlodipine Besylate (Norvasc -) 10 mg PO DAILY [facility] Last Admin: 05/03/18 09:13 Dose: 10 mg Docusate Sodium (Colace -) 100 mg PO BID [facility] Last Admin: 05/03/18 09:13 Dose: 100 mg Sodium Chloride (Normal Saline -) 250 mls @ 3,000 mls/hr IV PRN PRN PRN Reason: Hypotension during Dialysis Stop: 05/02/18 15:44 Insulin Aspart (Novolog Vial Sliding Scale -) 1 vial SQ ACHS [facility]; Protocol Last Admin: 05/03/18 06:01 Dose: Not Given Isosorbide Mononitrate (Imdur -) 30 mg PO DAILY [facility] Last Admin: 05/03/18 09:13 Dose: 30 mg Losartan Potassium (Cozaar -) 50 mg PO DAILY [facility] Last Admin: 05/03/18 09:13 Dose: 50 mg Metoprolol Tartrate (Lopressor -) 50 mg PO BID [facility] Last Admin: 05/03/18 09:13 Dose: 50 mg Rosuvastatin Calcium (Crestor -) 20 mg PO HS [facility] Last Admin: 05/02/18 21:46 Dose: 20 mg Fluticasone/Salmeterol (Advair 100mcg/50mcg -) 1 puff IH BID [facility] Last Admin: 05/03/18 09:13 Dose: 1 puff Review of Systems Cardiovascular: As noted above Respiratory: denies: denies: Cough or Sputum Production Gastrointestinal: denies: Nausea, Vomiting, Diarrhea, Constipation or Abdominal Discomfort Musculoskeletal: No Symptoms Reported Endocrine: No Symptoms Reported - Objective Vital Signs: Last Vital Signs Temp Pulse Resp BP Pulse Ox 98.1 F 76 18 152/72 99 05/03/18 06:00 05/03/18 06:00 05/03/18 06:00 05/03/18 06:00 05/02/18 21:00 Intake & Output 04/30/18 05/01/18 05/02/18 05/03/18 23:59 23:59 23:59 23:59 Intake Total 1040 880 790 Balance 1040 880 790 Weight 116 lb 12.8 oz Constitutional: No Distress Neck: Supple Negative JVD No Bruit Cardiovascular: S1 S2 Regular Rate Rhythm Respiratory: Diminished Breath Sounds Bilaterally Gastrointestinal: Soft Benign Normal Bowel Sounds Ext: No Edema Labs: CBC, BMP 05/02/18 05:45 05/02/18 05:45 Hepatic Panel Total Bilirubin 1.1 mg/dL (0.2-1) H 05/02/18 05:45 AST 11 U/L (15-37) L 05/02/18 05:45 ALT 13 U/L (13-61) 05/02/18 05:45 Alkaline Phosphatase 49 U/L (45-117) 05/02/18 05:45 Albumin 3.5 g/dl (3.4-5.0) 05/02/18 05:45 INR, PTT INR 0.86 (0.83-1.09) 04/30/18 08:50 Assessment/Plan ASSESSMENT: 1. 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 HTN post hypertensive urgency, resolved 3. CAD angina pectoris, stabilized 4. DM 5. Hyperlipidemia 6. Pericardial effusion, probably uremic etiology 7. COPD 8. ESRD on HD 9. Anemia and thrombocytopenia PLAN: 1. HD as per renal service 2. Continue Imdur and titrate dosage as needed and tolerated 3. Continue Norvasc 4. Continue Lopressor 5. Continue Cozaaar 6. Continue Crestor 7. Recommend ASA unless it is contraindicated 8. Pharmacologic MPI study as planned Karen Garcia MD
[2018-05-03] MEDS ORDERED: PT OWN MED DRAWER 7, Y5N ONE (09:10)
[2018-05-03] MEDS: DOCUSATE SODIUM 100 MG CAPSULE (FP) PO SCH ×2 (09:13→22:13)
[2018-05-03] MEDS: LOSARTAN POTASSIUM 50 MG TABLET (FP) PO SCH (09:13)
[2018-05-03] MEDS: ISOSORBIDE MONONITRATE 30 MG TAB.SR.24H (FP) PO SCH (09:13)
[2018-05-03] MEDS: FLUTICASONE/SALMETEROL 100 MCG/50 MCG DISKUS IH SCH ×2 (09:13→22:13)
[2018-05-03] MEDS: METOPROLOL TARTRATE 50 MG TABLET (FP) PO SCH ×2 (09:13→22:13)
[2018-05-03] MEDS: amLODIPine BESYLATE 10 MG TABLET (FP) PO SCH (09:13)
--- NOTE | 2018-05-03 13:21 | PN ---
Physical Exam: SUBJECTIVE: Patient seen and examined at bedside. Feeling well. Not complaining of chest pain today. OBJECTIVE: Vital Signs Period Temp Pulse Resp BP Sys/Betancourt Pulse Ox Last 24 Hr 98.0 F-98.9 F 65-79 18-20 130-159/65-81 94-99 GENERAL: The patient is awake, alert, and fully oriented, in no acute distress. NECK: full range of motion, supple. LUNGS: Breath sounds equal, clear to auscultation bilaterally, no wheezes, no crackles, no accessory muscle use. HEART: Regular rate and rhythm, S1, S2 without murmur, rub or gallop. ABDOMEN: Soft, nontender, nondistended, normoactive bowel sounds, no guarding, no rebound, no hepatosplenomegaly, no masses. EXTREMITIES: warm, well-perfused, no edema. NEUROLOGICAL: Cranial nerves II through XII grossly intact. Normal speech, gait not observed. PSYCH: Normal mood, normal affect. SKIN: Warm, dry Laboratory Results - last 24 hr 05/02/18 05/02/18 05/03/18 17:02 21:43 05:46 POC Glucometer 114 83 97 05/03/18 12:12 POC Glucometer 101 Active Medications Generic Name Dose Route Start Last Admin Trade Name Freq PRN Reason Stop Dose Admin Amlodipine Besylate 10 mg 05/01/18 10:00 05/03/18 09:13 Norvasc - PO 10 mg DAILY [facility] Administration Docusate Sodium 100 mg 04/30/18 22:00 05/03/18 09:13 Colace - PO 100 mg BID [facility] Administration Sodium Chloride 250 mls @ 3,000 mls/hr 05/01/18 15:44 Normal Saline - IV 05/02/18 15:44 PRN PRN Hypotension during Dialysis Insulin Aspart 1 vial 04/30/18 22:00 05/03/18 12:16 Novolog Vial Sliding Scale - SQ Not Given ACHS [facility] Protocol Isosorbide Mononitrate 30 mg 05/01/18 14:15 05/03/18 09:13 Imdur - PO 30 mg DAILY [facility] Administration Losartan Potassium 50 mg 04/30/18 13:30 05/03/18 09:13 Cozaar - PO 50 mg DAILY [facility] Administration Metoprolol Tartrate 50 mg 04/30/18 22:00 05/03/18 09:13 Lopressor - PO 50 mg BID [facility] Administration Rosuvastatin Calcium 20 mg 04/30/18 22:00 05/02/18 21:46 Crestor - PO 20 mg HS [facility] Administration Fluticasone/Salmeterol 1 puff 04/30/18 22:00 05/03/18 09:13 Advair 100mcg/50mcg - IH 1 puff BID [facility] Administration ASSESSMENT/PLAN: Patient is a 88yo creol speaking Female with PMHx of ESRD (M/W/F), 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 Patient was send to ED. for further care and was found to have low platelets of 27K. #Thrombocytopenia Improving - at 102 today B12 and folate WNL HIT antibody peniing , avoid Heparine or LMWH Monitor for signs of bleeding Hematology consulted- ultrasound showed either fatty infiltration v. passive congestion #chest pain during HD and Shortness of breath cardiology consulted recommend losartan 50 daily, cont Norvasc and lopressor added imdur 30 today, going for stress tomorrow AM chest pain improved with imdur # Abdominal pain likely due to constipation colace 100 po BID # ESRD on MWF HD HD per nephrology # HTN resume home meds # HLD cont Crestor 20 mg HS #DM BGM ACHS; ISS Hold oral agents # H/O CHF and H/O COPD not in exacerbation #FEN: F: No standing fluids E: monitor and replenished as needed Nutrition: Renal diabetic diet #PPX: DVT - Mod risk; scds due to low platelets #Dispo: Monitor on tele Visit type - Emergency Visit Emergency Visit: Yes ED Registration Date: 04/30/18 Care time: The patient presented to the Emergency Department on the above date and was hospitalized for further evaluation of their emergent condition. - New Patient This patient is new to me today: Yes Date on this admission: 05/03/18 - Critical Care Critical Care patient: No
--- NOTE | 2018-05-03 17:34 | PN ---
Progress Note, Physician Chief Complaint: Pt seen and examined at bedside. She has not had any chest pain. History of Present Illness: Pt seen and examined at bedside. SHe has not had any chest pain. She feels that her breathing is comfortable. - Current Medication List Current Medications: Active Medications Amlodipine Besylate (Norvasc -) 10 mg PO DAILY [facility] Last Admin: 05/03/18 09:13 Dose: 10 mg Docusate Sodium (Colace -) 100 mg PO BID [facility] Last Admin: 05/03/18 09:13 Dose: 100 mg Sodium Chloride (Normal Saline -) 250 mls @ 3,000 mls/hr IV PRN PRN PRN Reason: Hypotension during Dialysis Stop: 05/02/18 15:44 Insulin Aspart (Novolog Vial Sliding Scale -) 1 vial SQ ACHS [facility]; Protocol Last Admin: 05/03/18 17:24 Dose: Not Given Isosorbide Mononitrate (Imdur -) 30 mg PO DAILY [facility] Last Admin: 05/03/18 09:13 Dose: 30 mg Losartan Potassium (Cozaar -) 50 mg PO DAILY [facility] Last Admin: 05/03/18 09:13 Dose: 50 mg Metoprolol Tartrate (Lopressor -) 50 mg PO BID [facility] Last Admin: 05/03/18 09:13 Dose: 50 mg Rosuvastatin Calcium (Crestor -) 20 mg PO HS [facility] Last Admin: 05/02/18 21:46 Dose: 20 mg Fluticasone/Salmeterol (Advair 100mcg/50mcg -) 1 puff IH BID [facility] Last Admin: 05/03/18 09:13 Dose: 1 puff - Objective Vital Signs: Vital Signs Temperature 97.9 F 05/03/18 14:00 Pulse Rate 69 05/03/18 14:00 Respiratory Rate 18 05/03/18 14:00 Blood Pressure 131/56 L 05/03/18 14:00 O2 Sat by Pulse Oximetry (%) 94 L 05/03/18 10:00 Constitutional: Yes: Calm Eyes: Yes: Conjunctiva Clear HENT: Yes: Atraumatic Neck: Yes: Supple Cardiovascular: Yes: S1, S2 Respiratory: Yes: On Nasal O2 Gastrointestinal: Yes: Soft Genitourinary: Yes: WNL Musculoskeletal: Yes: WNL Edema: No Neurological: Yes: Oriented Psychiatric: Yes: Oriented Labs: CBC, BMP 05/02/18 05:45 05/02/18 05:45 INR, PTT INR 0.86 (0.83-1.09) 04/30/18 08:50 Problem List - Problems (1) ESRD (end stage renal disease) on dialysis Code(s): N18.6 - END STAGE RENAL DISEASE; Z99.2 - DEPENDENCE ON RENAL DIALYSIS Assessment/Plan Current Medications Generic Name Dose Route Start Last Admin Trade Name Freq PRN Reason Stop Dose Admin Amlodipine Besylate 10 mg 05/01/18 10:00 05/03/18 09:13 Norvasc - PO 10 mg DAILY [facility] Administration Docusate Sodium 100 mg 04/30/18 22:00 05/03/18 09:13 Colace - PO 100 mg BID [facility] Administration Sodium Chloride 250 mls @ 3,000 mls/hr 05/01/18 15:44 Normal Saline - IV 05/02/18 15:44 PRN PRN Hypotension during Dialysis Insulin Aspart 1 vial 04/30/18 22:00 05/03/18 17:24 Novolog Vial Sliding Scale - SQ Not Given ACHS [facility] Protocol Isosorbide Mononitrate 30 mg 05/01/18 14:15 05/03/18 09:13 Imdur - PO 30 mg DAILY [facility] Administration Losartan Potassium 50 mg 04/30/18 13:30 05/03/18 09:13 Cozaar - PO 50 mg DAILY [facility] Administration Metoprolol Tartrate 50 mg 04/30/18 22:00 05/03/18 09:13 Lopressor - PO 50 mg BID [facility] Administration Rosuvastatin Calcium 20 mg 04/30/18 22:00 05/02/18 21:46 Crestor - PO 20 mg HS [facility] Administration Fluticasone/Salmeterol 1 puff 04/30/18 22:00 05/03/18 09:13 Advair 100mcg/50mcg - IH 1 puff BID [facility] Administration Impression 1. ESRD 2. HTN 3. HLD 4. COPD 5. DM 6. pos heb b core 7. abd pain 8. vomiting 9. anemia 10. pericardial effusion 11. thrombocytopenia 12. chest pain 13. angina Plan - pt for stress test tomorrow - HD tomorrow, pt on MW schedule - monitor bp - cont with imdur - low blood flow on HD, 300 cc - platelets improved and HIT ab neg Dr Reis
[2018-05-03] MEDS ORDERED: SODIUM CHLORIDE 250 ML IV PRN (18:36)
--- NOTE | 2018-05-03 20:24 | PN ---
Teaching Attending Note Name of Resident: Guy Lagos ATTENDING PHYSICIAN STATEMENT I saw and evaluated the patient. I reviewed the resident's note and discussed the case with the resident. I agree with the resident's findings and plan as documented. SUBJECTIVE: Patient is comfortable with no acute distress. Chest pain resolved post Imdur. OBJECTIVE: Vital Signs Temperature 98.8 F 05/03/18 18:41 Pulse Rate 69 05/03/18 18:41 Respiratory Rate 18 05/03/18 18:41 Blood Pressure 148/69 05/03/18 18:41 O2 Sat by Pulse Oximetry (%) 94 L 05/03/18 10:00 GENERAL: NAD, awake, alert, and fully oriented HEENT: Nc/AT, EOMI, MARZENA, sclera anicteric, no mucosal ulcerations, MMM, no JVD noted LUNGS: CTA bilaterally. No wheezes, and no crackles. No accessory muscle use. On 2.5L at home. HEART: RRR, normal S1 and S2 without murmur ABDOMEN: Soft, NT/ND, BS positive, no guarding, No hepatomegaly or splenomegaly per palpation. EXTREMITIES: LUE AV fistula with palpable thrill, bandages overlying without blood, positive pulses. No peripheral edema. PSYCHIATRIC: Cooperative. Good eye contact. Appropriate mood and affect. SKIN: Warm, dry, no rashes or lesions. CBCD WBC 4.2 K/mm3 (4.0-10.0) 05/02/18 05:45 RBC 4.00 M/mm3 (3.60-5.2) 05/02/18 05:45 Hgb 11.3 GM/dL (10.7-15.3) 05/02/18 05:45 Hct 34.7 % (32.4-45.2) 05/02/18 05:45 MCV 86.8 fl (80-96) 05/02/18 05:45 MCHC 32.5 g/dl (32.0-36.0) 05/02/18 05:45 RDW 18.3 % (11.6-15.6) H 05/02/18 05:45 Plt Count 104 K/MM3 (134-434) L D 05/02/18 05:45 MPV 10.0 fl (7.5-11.1) 05/02/18 05:45 CMP Sodium 142 mmol/L (136-145) 05/02/18 05:45 Potassium 3.6 mmol/L (3.5-5.1) 05/02/18 05:45 Chloride 104 mmol/L (98-107) 05/02/18 05:45 Carbon Dioxide 31 mmol/L (21-32) 05/02/18 05:45 Anion Gap 7 MMOL/L (8-16) L 05/02/18 05:45 BUN 54 mg/dL (7-18) H 05/02/18 05:45 Creatinine 6.5 mg/dL (0.55-1.3) H 05/02/18 05:45 Creat Clearance w eGFR 6.03 (>60) 05/02/18 05:45 Random Glucose 85 mg/dL (74-106) 05/02/18 05:45 Calcium 8.2 mg/dL (8.5-10.1) L 05/02/18 05:45 Total Bilirubin 1.1 mg/dL (0.2-1) H 05/02/18 05:45 AST 11 U/L (15-37) L 05/02/18 05:45 ALT 13 U/L (13-61) 05/02/18 05:45 Alkaline Phosphatase 49 U/L (45-117) 05/02/18 05:45 Total Protein 6.4 g/dl (6.4-8.2) 05/02/18 05:45 Albumin 3.5 g/dl (3.4-5.0) 05/02/18 05:45 CARDIAC ENZYMES Creatine Kinase 39 U/L (26-192) 04/30/18 12:54 Troponin I 0.02 ng/ml (0.00-0.05) 05/01/18 08:40 Current Medications Generic Name Dose Route Start Last Admin Trade Name Freq PRN Reason Stop Dose Admin Amlodipine Besylate 10 mg 05/01/18 10:00 05/03/18 09:13 Norvasc - PO 10 mg DAILY [facility] Administration Docusate Sodium 100 mg 04/30/18 22:00 05/03/18 09:13 Colace - PO 100 mg BID [facility] Administration Sodium Chloride 250 mls @ 3,000 mls/hr 05/03/18 17:34 Normal Saline - IV 05/04/18 17:34 PRN PRN Hypotension during Dialysis Insulin Aspart 1 vial 04/30/18 22:00 05/03/18 17:24 Novolog Vial Sliding Scale - SQ Not Given ACHS [facility] Protocol Isosorbide Mononitrate 30 mg 05/01/18 14:15 05/03/18 09:13 Imdur - PO 30 mg DAILY [facility] Administration Losartan Potassium 50 mg 04/30/18 13:30 05/03/18 09:13 Cozaar - PO 50 mg DAILY [facility] Administration Metoprolol Tartrate 50 mg 04/30/18 22:00 05/03/18 09:13 Lopressor - PO 50 mg BID [facility] Administration Rosuvastatin Calcium 20 mg 04/30/18 22:00 05/02/18 21:46 Crestor - PO 20 mg HS [facility] Administration Fluticasone/Salmeterol 1 puff 04/30/18 22:00 05/03/18 09:13 Advair 100mcg/50mcg - IH 1 puff BID [facility] Administration Home Medications Medication Instructions Recorded Acetaminophen W/ Codeine #3 1 tab PO TID 04/08/18 [Tylenol # 3 -] Amlodipine Besylate 10 mg PO DAILY 04/08/18 Docusate Sodium 100 mg PO BID 04/08/18 Metoprolol Tartrate 50 mg PO BID 04/08/18 Pregabalin [Lyrica -] 150 mg PO BID 04/08/18 Rosuvastatin [Crestor -] 20 mg PO HS 04/08/18 Salmeterol/Fluticasone [Advair 1 puff IH BID 04/08/18 100Mcg/50Mcg -] Sevelamer Carbonate [Renvela -] 800 mg PO TID 04/08/18 Ventolin HFA Inhaler - 2 puff IH QID 04/08/18 ASSESSMENT AND PLAN: Patient is a 88yo creol speaking Female with PMHx of ESRD (M/W/F), 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 Patient was send to ED. for further care and was found to have low platelets of 27K. #Acute thrombocytopenia 27k--28k--> 68k-->72K-->104 today, HIT2 antibodies are Negative. 's CONSULT appreciated. # Acute chest pain during dialysis resolved post adding Imdur 30mg po daily , will need stress test to r/o ischemia. will have stress test on Friday. Discussed with Cardio And . #ESRD on HD(MWF) , on the case. #Hypophosphatemia : patient is a dialysis patient. # hx of COPD (not in exacerbation)continue home meds. # Hx of CHF (not in exacerbation) # hx of HTN continue home meds. # hx of DM ss with coverage. DVT Px; SCDs patient is bedridden. FALL PRECAUTION, BED ALARM. NPO after midnight stress test in am
[2018-05-03] MEDS: ROSUVASTATIN CA 20 MG TABLET (FP) PO SCH (22:13)
[2018-05-04] MEDS: INSULIN SLIDING SCALE (NOVOLOG) 1 VIAL SQ SCH ×4 (06:22→22:42)
[2018-05-04 07:50] LABS: ALK PHOS 57 U/L (45-117); ANION GAP 9 MMOL/L (8-16); BILIRUBIN,TOTAL 0.9 mg/dL (0.2-1); BLOOD UREA NITROGEN 56 mg/dL (7-18); CALCIUM 8.5 mg/dL (8.5-10.1); CHLORIDE 99 mmol/L (98-107); CO2 32 mmol/L (21-32); CREATININE 6.3 mg/dL (0.55-1.3); GLUCOSE,RANDOM 85 mg/dL (74-106); SGOT/AST 13 U/L (15-37); SGPT/ALT 16 U/L (13-61); SODIUM 140 mmol/L (136-145); TOT PROT 7.2 g/dl (6.4-8.2)
[2018-05-04] MEDS ORDERED: PT OWN MED DRAWER 7, Y5N ONE (08:25)
[2018-05-04] MEDS: METOPROLOL TARTRATE 50 MG TABLET (FP) PO SCH ×3 (08:30→22:37)
[2018-05-04] MEDS: FLUTICASONE/SALMETEROL 100 MCG/50 MCG DISKUS IH SCH ×3 (08:31→22:37)
[2018-05-04] MEDS: ISOSORBIDE MONONITRATE 30 MG TAB.SR.24H (FP) PO SCH ×2 (08:31→11:26)
[2018-05-04] MEDS: amLODIPine BESYLATE 10 MG TABLET (FP) PO SCH ×2 (08:31→11:28)
[2018-05-04] MEDS: DOCUSATE SODIUM 100 MG CAPSULE (FP) PO SCH ×3 (08:31→22:36)
[2018-05-04] MEDS: LOSARTAN POTASSIUM 50 MG TABLET (FP) PO SCH ×2 (08:31→11:26)
--- NOTE | 2018-05-04 09:12 | PN ---
Physical Exam: SUBJECTIVE: Patient seen and examined at bedside- no acute events overnight; patient states she is feeling better- she denies any more CP or abdominal pain; going for stress test this AM and then going for HD. OBJECTIVE: Vital Signs Period Temp Pulse Resp BP Sys/Betancourt Pulse Ox Last 24 Hr 97.3 F-98.8 F 69-79 18-20 131-179/56-84 94-94 GENERAL: The patient is awake, alert, and fully oriented, in no acute distress. EYES: PEERLA; EOMI; no scleral icteus . NECK: no JVD; no lymphadenopathy LUNGS: CTA B/L; no rales, rhonchi or wheezing HEART: Regular rate and rhythm, S1, S2 without murmur, rub or gallop. ABDOMEN: soft; non-tender; non-distended +BS in all 4 quadrants EXTREMITIES: 2+ pulses, warm, well-perfused, no edema. PSYCH: Normal mood, normal affect. SKIN: Warm, dry, normal turgor, no rashes or lesions noted Laboratory Results - last 24 hr 05/03/18 05/03/18 05/03/18 12:12 17:20 22:12 Sodium Potassium Chloride Carbon Dioxide Anion Gap BUN Creatinine Creat Clearance w eGFR POC Glucometer 101 118 95 Random Glucose Calcium Total Bilirubin AST ALT Alkaline Phosphatase Total Protein Albumin 05/04/18 05/04/18 06:20 06:21 Sodium 140 Potassium 4.0 Chloride 99 Carbon Dioxide 32 Anion Gap 9 BUN 56 H Creatinine 6.3 H Creat Clearance w eGFR 6.26 POC Glucometer 90 Random Glucose 85 Calcium 8.5 Total Bilirubin 0.9 AST 13 L ALT 16 Alkaline Phosphatase 57 Total Protein 7.2 Albumin 4.0 Active Medications Generic Name Dose Route Start Last Admin Trade Name Freq PRN Reason Stop Dose Admin Amlodipine Besylate 10 mg 05/01/18 10:00 05/04/18 08:31 Norvasc - PO 10 mg DAILY [facility] Administration Docusate Sodium 100 mg 04/30/18 22:00 05/04/18 08:31 Colace - PO 100 mg BID [facility] Administration Sodium Chloride 250 mls @ 3,000 mls/hr 05/03/18 17:34 Normal Saline - IV 05/04/18 17:34 PRN PRN Hypotension during Dialysis Insulin Aspart 1 vial 04/30/18 22:00 05/04/18 06:22 Novolog Vial Sliding Scale - SQ Not Given ACHS [facility] Protocol Isosorbide Mononitrate 60 mg 05/04/18 07:36 05/04/18 08:31 Imdur - PO 60 mg DAILY [facility] Administration Losartan Potassium 50 mg 04/30/18 13:30 05/04/18 08:31 Cozaar - PO 50 mg DAILY [facility] Administration Metoprolol Tartrate 50 mg 04/30/18 22:00 05/03/18 22:13 Lopressor - PO 50 mg BID [facility] Administration Rosuvastatin Calcium 20 mg 04/30/18 22:00 05/03/18 22:13 Crestor - PO 20 mg HS [facility] Administration Fluticasone/Salmeterol 1 puff 04/30/18 22:00 05/04/18 08:31 Advair 100mcg/50mcg - IH 1 puff BID [facility] Administration ASSESSMENT/PLAN: Patient is a 88yo creol speaking Female with PMHx of ESRD (M/W/F), 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 Patient was send to ED. for further care and was found to have low platelets of 27K. #Thrombocytopenia Improving -135 this AM B12 and folate WNL HIT antibody peniing , avoid Heparine or LMWH Monitor for signs of bleeding Hematology consulted- ultrasound showed either fatty infiltration v. passive congestion #chest pain during HD and Shortness of breath cardiology consulted recommend losartan 50 daily, cont Norvasc and lopressor 50 daily, increased imdur to 60 daily going for stress this AM # Abdominal pain likely due to constipation colace 100 po BID # ESRD on MWF HD HD per nephrology this AM # HTN resume home meds # HLD cont Crestor 20 mg HS #DM BGM ACHS; ISS Hold oral agents # H/O CHF and H/O COPD not in exacerbation #FEN: F: No standing fluids E: monitor and replenished as needed Nutrition: Renal diabetic diet #PPX: DVT - Mod risk; scds due to low platelets Problem List - Problems (1) ESRD (end stage renal disease) on dialysis Code(s): N18.6 - END STAGE RENAL DISEASE; Z99.2 - DEPENDENCE ON RENAL DIALYSIS (2) Pulmonary hypertension Code(s): I27.20 - PULMONARY HYPERTENSION, UNSPECIFIED (3) History of end stage renal disease Code(s): Z87.448 - PERSONAL HISTORY OF OTHER DISEASES OF URINARY SYSTEM (4) Shortness of breath Code(s): R06.02 - SHORTNESS OF BREATH (5) Thrombocytopenia Code(s): D69.6 - THROMBOCYTOPENIA, UNSPECIFIED Visit type - Emergency Visit Emergency Visit: Yes ED Registration Date: 04/30/18 Care time: The patient presented to the Emergency Department on the above date and was hospitalized for further evaluation of their emergent condition. - New Patient This patient is new to me today: No - Critical Care Critical Care patient: No
[2018-05-04] MEDS ORDERED: REGADENOSON 0.4 MG/5 ML PRE-FILLED SYRINGE IVPUSH ONE ×2 (09:25→10:30)
[2018-05-04 09:28] LABS: BASO % 0.9 % (0-2.0); EOS % 2.4 % (0-4.5); HEMATOCRIT 39.6 % (32.4-45.2); HEMOGLOBIN 13.1 GM/dL (10.7-15.3); LYMPH % 42.6 % (8-40); MCH 28.8 pg (25.7-33.7); MCHC 33.2 g/dl (32.0-36.0); MEAN CELL VOLUME 86.7 fl (80-96); MEAN PLT VOLUME 10.4 fl (7.5-11.1); MONO % 10.3 % (3.8-10.2); NEUT % 43.8 % (42.8-82.8); PLATELET COUNT 135 K/MM3 (134-434); RBC 4.57 M/mm3 (3.60-5.2); RDW 17.6 % (11.6-15.6); WHITE BLOOD COUNT 5.1 K/mm3 (4.0-10.0)
--- NOTE | 2018-05-04 10:03 | PN ---
Progress Note, Physician History of Present Illness: No further shortness of breath and chest pain. She denies palpitations, near or true syncope, or LE edema. Nuclear stress negative for ischemia. - Current Medication List Current Medications: Active Medications Amlodipine Besylate (Norvasc -) 10 mg PO DAILY [facility] Last Admin: 05/04/18 08:31 Dose: 10 mg Docusate Sodium (Colace -) 100 mg PO BID [facility] Last Admin: 05/04/18 08:31 Dose: 100 mg Sodium Chloride (Normal Saline -) 250 mls @ 3,000 mls/hr IV PRN PRN PRN Reason: Hypotension during Dialysis Stop: 05/04/18 17:34 Insulin Aspart (Novolog Vial Sliding Scale -) 1 vial SQ ACHS [facility]; Protocol Last Admin: 05/04/18 06:22 Dose: Not Given Isosorbide Mononitrate (Imdur -) 60 mg PO DAILY [facility] Last Admin: 05/04/18 08:31 Dose: 60 mg Losartan Potassium (Cozaar -) 50 mg PO DAILY [facility] Last Admin: 05/04/18 08:31 Dose: 50 mg Metoprolol Tartrate (Lopressor -) 50 mg PO BID [facility] Last Admin: 05/03/18 22:13 Dose: 50 mg Rosuvastatin Calcium (Crestor -) 20 mg PO HS [facility] Last Admin: 05/03/18 22:13 Dose: 20 mg Fluticasone/Salmeterol (Advair 100mcg/50mcg -) 1 puff IH BID [facility] Last Admin: 05/04/18 08:31 Dose: 1 puff - Objective Vital Signs: Vital Signs Temperature 98.6 F 05/04/18 07:31 Pulse Rate 73 05/04/18 07:31 Respiratory Rate 18 05/04/18 07:31 Blood Pressure 148/64 05/04/18 07:31 O2 Sat by Pulse Oximetry (%) 94 L 05/03/18 21:00 Constitutional: Yes: No Distress, Calm, Thin Neck: Yes: Supple Cardiovascular: Yes: Regular Rate and Rhythm Respiratory: Yes: Regular, Diminished Gastrointestinal: Yes: Normal Bowel Sounds, Soft Edema: No Labs: CBC, BMP 05/04/18 06:20 05/04/18 06:20 INR, PTT INR 0.86 (0.83-1.09) 04/30/18 08:50 Problem List - Problems (1) ESRD (end stage renal disease) on dialysis Code(s): N18.6 - END STAGE RENAL DISEASE; Z99.2 - DEPENDENCE ON RENAL DIALYSIS (2) Shortness of breath Code(s): R06.02 - SHORTNESS OF BREATH (3) Acute pulmonary edema Code(s): J81.0 - ACUTE PULMONARY EDEMA (4) Hypertensive urgency Code(s): I16.0 - HYPERTENSIVE URGENCY (5) Diastolic CHF Code(s): I50.30 - UNSPECIFIED DIASTOLIC (CONGESTIVE) HEART FAILURE Qualifiers: Heart failure chronicity: acute on chronic Qualified Code(s): I50.33 - Acute on chronic diastolic (congestive) heart failure (6) Hypercholesterolemia Code(s): E78.00 - PURE HYPERCHOLESTEROLEMIA, UNSPECIFIED (7) Hypertension Code(s): I10 - ESSENTIAL (PRIMARY) HYPERTENSION Qualifiers: Hypertension type: essential hypertension Qualified Code(s): I10 - Essential (primary) hypertension (8) Pulmonary hypertension Code(s): I27.20 - PULMONARY HYPERTENSION, UNSPECIFIED Assessment/Plan 02/11/2018 Echo: Normal LV size and fxn, moderate pericardial effusion, mild- mod MR, severe TR, RVSP>60 04/09/2018 Echo: Normal LV and RV size and fxn, mod TR RVSP 40-50 mmHg, mild MR , small pericardial effusion < 1 cm 05/01/2018 Echo: Normal LV and RV size and fxn LVEF 55-60%, mod TR RVSP 40-50 mmHg, mild MR trace pericardial effusion 05/04/2018 Regadenoson Myoview: No ischemia, occ PVC, normal LVEF 85% 1. 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 HTN post hypertensive urgency, resolved 3. CAD angina pectoris, MPI negative for ischemia 4. DM 5. Hyperlipidemia 6. Pericardial effusion, probably uremic etiology 7. COPD 8. ESRD on HD 9. Resolved thrombocytopenia P:1. Ruled out for LA, volume removal via HD as tolerated 2. Continue Imdur 60 qd to decrease pulm pressures, continue Norvasc 10 qd, Lopressor 50 bid, Cozaar 50 qd, Crestor 20 qhs with uptitration as hemodynamics tolerate, add ASA 81 qd as Plt recovered 3. BD, O2 as needed 4. D/c planning with f/u in office
--- NOTE | 2018-05-04 14:23 | PN ---
Teaching Attending Note Name of Resident: Basia Stevens ATTENDING PHYSICIAN STATEMENT I saw and evaluated the patient. I reviewed the resident's note and discussed the case with the resident. I agree with the resident's findings and plan as documented. SUBJECTIVE: Patient is comfortable with no acute distress. Patient had the stress test. OBJECTIVE: Vital Signs Temperature 98.1 F 05/04/18 08:30 Pulse Rate 77 05/04/18 08:30 Respiratory Rate 20 05/04/18 08:30 Blood Pressure 165/79 05/04/18 08:30 O2 Sat by Pulse Oximetry (%) 94 L 05/04/18 08:30 GENERAL: NAD, awake, alert, and fully oriented HEENT: Nc/AT, EOMI, MARZENA, sclera anicteric, no mucosal ulcerations, MMM, no JVD noted LUNGS: CTA bilaterally. No wheezes, and no crackles. No accessory muscle use. On 2.5L at home. HEART: RRR, normal S1 and S2 without murmur ABDOMEN: Soft, NT/ND, BS positive, no guarding, No hepatomegaly or splenomegaly per palpation. EXTREMITIES: LUE AV fistula with palpable thrill. positive pulses. No peripheral edema. PSYCHIATRIC: Cooperative. Good eye contact. Appropriate mood and affect. SKIN: Warm, dry, no rashes or lesions. CBCD WBC 5.1 K/mm3 (4.0-10.0) 05/04/18 06:20 RBC 4.57 M/mm3 (3.60-5.2) 05/04/18 06:20 Hgb 13.1 GM/dL (10.7-15.3) 05/04/18 06:20 Hct 39.6 % (32.4-45.2) 05/04/18 06:20 MCV 86.7 fl (80-96) 05/04/18 06:20 MCHC 33.2 g/dl (32.0-36.0) 05/04/18 06:20 RDW 17.6 % (11.6-15.6) H 05/04/18 06:20 Plt Count 135 K/MM3 (134-434) D 05/04/18 06:20 MPV 10.4 fl (7.5-11.1) 05/04/18 06:20 CMP Sodium 140 mmol/L (136-145) 05/04/18 06:20 Potassium 4.0 mmol/L (3.5-5.1) 05/04/18 06:20 Chloride 99 mmol/L (98-107) 05/04/18 06:20 Carbon Dioxide 32 mmol/L (21-32) 05/04/18 06:20 Anion Gap 9 MMOL/L (8-16) 05/04/18 06:20 BUN 56 mg/dL (7-18) H 05/04/18 06:20 Creatinine 6.3 mg/dL (0.55-1.3) H 05/04/18 06:20 Creat Clearance w eGFR 6.26 (>60) 05/04/18 06:20 Random Glucose 85 mg/dL (74-106) 05/04/18 06:20 Calcium 8.5 mg/dL (8.5-10.1) 05/04/18 06:20 Total Bilirubin 0.9 mg/dL (0.2-1) 05/04/18 06:20 AST 13 U/L (15-37) L 05/04/18 06:20 ALT 16 U/L (13-61) 05/04/18 06:20 Alkaline Phosphatase 57 U/L (45-117) 05/04/18 06:20 Total Protein 7.2 g/dl (6.4-8.2) 05/04/18 06:20 Albumin 4.0 g/dl (3.4-5.0) 05/04/18 06:20 CARDIAC ENZYMES Creatine Kinase 39 U/L (26-192) 04/30/18 12:54 Troponin I 0.02 ng/ml (0.00-0.05) 05/01/18 08:40 Current Medications Generic Name Dose Route Start Last Admin Trade Name Freq PRN Reason Stop Dose Admin Amlodipine Besylate 10 mg 05/01/18 10:00 05/04/18 11:28 Norvasc - PO Not Given DAILY [facility] Docusate Sodium 100 mg 04/30/18 22:00 05/04/18 11:25 Colace - PO Not Given BID [facility] Sodium Chloride 250 mls @ 3,000 mls/hr 05/03/18 17:34 Normal Saline - IV 05/04/18 17:34 PRN PRN Hypotension during Dialysis Insulin Aspart 1 vial 04/30/18 22:00 05/04/18 12:22 Novolog Vial Sliding Scale - SQ Not Given ACHS [facility] Protocol Isosorbide Mononitrate 60 mg 05/04/18 07:36 05/04/18 11:26 Imdur - PO Not Given DAILY [facility] Losartan Potassium 50 mg 04/30/18 13:30 05/04/18 11:26 Cozaar - PO Not Given DAILY [facility] Metoprolol Tartrate 50 mg 04/30/18 22:00 05/04/18 11:27 Lopressor - PO Not Given BID [facility] Rosuvastatin Calcium 20 mg 04/30/18 22:00 05/03/18 22:13 Crestor - PO 20 mg HS [facility] Administration Fluticasone/Salmeterol 1 puff 04/30/18 22:00 05/04/18 11:25 Advair 100mcg/50mcg - IH Not Given BID [facility] Home Medications Medication Instructions Recorded Acetaminophen W/ Codeine #3 1 tab PO TID 04/08/18 [Tylenol # 3 -] Amlodipine Besylate 10 mg PO DAILY 04/08/18 Docusate Sodium 100 mg PO BID 04/08/18 Metoprolol Tartrate 50 mg PO BID 04/08/18 Pregabalin [Lyrica -] 150 mg PO BID 04/08/18 Rosuvastatin [Crestor -] 20 mg PO HS 04/08/18 Salmeterol/Fluticasone [Advair 1 puff IH BID 04/08/18 100Mcg/50Mcg -] Sevelamer Carbonate [Renvela -] 800 mg PO TID 04/08/18 Ventolin HFA Inhaler - 2 puff IH QID 04/08/18 Isosorbide Mononitrate [Imdur -] 30 mg PO DAILY #30 tab.sr.24h 05/04/18 Losartan Potassium [Cozaar -] 50 mg PO DAILY 30 Days #30 tablet 05/04/18 ASSESSMENT AND PLAN: Patient is a 88yo creol speaking Female with PMHx of ESRD (M/W/F), 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 Patient was send to ED. for further care and was found to have low platelets of 27K. #Acute thrombocytopenia 27k--28k--> 68k-->72K-->104-->135K today, HIT2 antibodies are Negative. 's CONSULT appreciated. # Acute chest pain during dialysis resolved post adding Imdur 60mg po daily increased by ,stress test is negative , no ischemia. As per cardio and nephro , patient can go home. # Acute shortness of breath due to her COPD, while getting dialyzed , patient became short of breath. Given a nebulizer treatment, felt better, will get pulmonary to see her before her discharge. # hx of COPD continue home meds. #ESRD on HD(MWF) , on the case. #Hypophosphatemia : patient is a dialysis patient. # Hx of CHF (not in exacerbation) # hx of HTN continue home meds. # hx of DM ss with coverage. DVT Px; SCDs patient is bedridden. FALL PRECAUTION, BED ALARM.
--- NOTE | 2018-05-04 14:52 | PN ---
Progress Note, Physician History of Present Illness: Pt seen and examined at bedside. She is tolerating HD so far. - Current Medication List Current Medications: Active Medications Amlodipine Besylate (Norvasc -) 10 mg PO DAILY [facility] Last Admin: 05/04/18 11:28 Dose: Not Given Docusate Sodium (Colace -) 100 mg PO BID [facility] Last Admin: 05/04/18 11:25 Dose: Not Given Sodium Chloride (Normal Saline -) 250 mls @ 3,000 mls/hr IV PRN PRN PRN Reason: Hypotension during Dialysis Stop: 05/04/18 17:34 Insulin Aspart (Novolog Vial Sliding Scale -) 1 vial SQ ACHS [facility]; Protocol Last Admin: 05/04/18 12:22 Dose: Not Given Isosorbide Mononitrate (Imdur -) 60 mg PO DAILY [facility] Last Admin: 05/04/18 11:26 Dose: Not Given Losartan Potassium (Cozaar -) 50 mg PO DAILY [facility] Last Admin: 05/04/18 11:26 Dose: Not Given Metoprolol Tartrate (Lopressor -) 50 mg PO BID [facility] Last Admin: 05/04/18 11:27 Dose: Not Given Rosuvastatin Calcium (Crestor -) 20 mg PO HS [facility] Last Admin: 05/03/18 22:13 Dose: 20 mg Fluticasone/Salmeterol (Advair 100mcg/50mcg -) 1 puff IH BID [facility] Last Admin: 05/04/18 11:25 Dose: Not Given - Objective Vital Signs: Vital Signs Temperature 98.1 F 05/04/18 08:30 Pulse Rate 77 05/04/18 08:30 Respiratory Rate 20 05/04/18 08:30 Blood Pressure 165/79 05/04/18 08:30 O2 Sat by Pulse Oximetry (%) 94 L 05/04/18 08:30 Constitutional: Yes: Calm Eyes: Yes: Conjunctiva Clear HENT: Yes: Atraumatic Cardiovascular: Yes: S1, S2 Respiratory: Yes: On Nasal O2 Gastrointestinal: Yes: Soft Genitourinary: Yes: WNL Musculoskeletal: Yes: WNL Edema: No Neurological: Yes: Oriented Psychiatric: Yes: Oriented Labs: CBC, BMP 05/04/18 06:20 05/04/18 06:20 INR, PTT INR 0.86 (0.83-1.09) 04/30/18 08:50 Problem List - Problems (1) ESRD (end stage renal disease) on dialysis Code(s): N18.6 - END STAGE RENAL DISEASE; Z99.2 - DEPENDENCE ON RENAL DIALYSIS Assessment/Plan Current Medications Generic Name Dose Route Start Last Admin Trade Name Freq PRN Reason Stop Dose Admin Amlodipine Besylate 10 mg 05/01/18 10:00 05/04/18 11:28 Norvasc - PO Not Given DAILY [facility] Docusate Sodium 100 mg 04/30/18 22:00 05/04/18 11:25 Colace - PO Not Given BID [facility] Sodium Chloride 250 mls @ 3,000 mls/hr 05/03/18 17:34 Normal Saline - IV 05/04/18 17:34 PRN PRN Hypotension during Dialysis Insulin Aspart 1 vial 04/30/18 22:00 05/04/18 12:22 Novolog Vial Sliding Scale - SQ Not Given ACHS [facility] Protocol Isosorbide Mononitrate 60 mg 05/04/18 07:36 05/04/18 11:26 Imdur - PO Not Given DAILY [facility] Losartan Potassium 50 mg 04/30/18 13:30 05/04/18 11:26 Cozaar - PO Not Given DAILY [facility] Metoprolol Tartrate 50 mg 04/30/18 22:00 05/04/18 11:27 Lopressor - PO Not Given BID [facility] Rosuvastatin Calcium 20 mg 04/30/18 22:00 05/03/18 22:13 Crestor - PO 20 mg HS [facility] Administration Fluticasone/Salmeterol 1 puff 04/30/18 22:00 05/04/18 11:25 Advair 100mcg/50mcg - IH Not Given BID [facility] Impression 1. ESRD 2. HTN 3. HLD 4. COPD 5. DM 6. pos heb b core 7. abd pain 8. vomiting 9. anemia 10. pericardial effusion 11. thrombocytopenia 12. chest pain 13. angina Plan - HD today - monitor for chest pain - cont cozaar on discharge - monitor bp - cont with imdur - low blood flow on HD, 300 cc, called unit and changed rate - HIT ab neg Dr Reis
[2018-05-04] MEDS ORDERED: ALBUTEROL SO4 2.5/IPRATROPIUM 0.5 INH SOL 3 ML VIAL.NEB. NEB ONE ×2 (14:54→15:35)
[2018-05-04 15:38] LABS: HEMATOCRIT 34.3 % (32.4-45.2); HEMOGLOBIN 11.3 GM/dL (10.7-15.3); MCH 28.2 pg (25.7-33.7); MCHC 32.9 g/dl (32.0-36.0); MEAN CELL VOLUME 85.7 fl (80-96); PLATELET COUNT 140 K/MM3 (134-434); RDW 17.5 % (11.6-15.6); WHITE BLOOD COUNT 4.1 K/mm3 (4.0-10.0)
[2018-05-04 15:46] LABS: ANION GAP 10 MMOL/L (8-16); BLOOD UREA NITROGEN 58 mg/dL (7-18); CALCIUM 8.2 mg/dL (8.5-10.1); CHLORIDE 99 mmol/L (98-107); CO2 29 mmol/L (21-32); CREATININE 6.9 mg/dL (0.55-1.3); GLUCOSE,RANDOM 179 mg/dL (74-106); POTASSIUM 4.1 mmol/L (3.5-5.1); SODIUM 138 mmol/L (136-145)
[2018-05-04 19:47] LABS: CREATININE 2.4 mg/dL (0.55-1.3)
[2018-05-04] MEDS: ROSUVASTATIN CA 20 MG TABLET (FP) PO SCH (22:37)
[2018-05-05] MEDS: INSULIN SLIDING SCALE (NOVOLOG) 1 VIAL SQ SCH ×3 (06:20→17:42)
--- NOTE | 2018-05-05 08:20 | PN ---
Teaching Attending Note Name of Resident: Basia Stevens ATTENDING PHYSICIAN STATEMENT I saw and evaluated the patient. I reviewed the resident's note and discussed the case with the resident. I agree with the resident's findings and plan as documented. SUBJECTIVE: Patient is feeling better today with no acute distress, daughter at bedside. discussed the plan. OBJECTIVE: Vital Signs Temperature 98.1 F 05/05/18 06:00 Pulse Rate 65 05/05/18 06:00 Respiratory Rate 18 05/05/18 06:00 Blood Pressure 150/66 05/05/18 06:00 O2 Sat by Pulse Oximetry (%) 98 05/04/18 21:00 Initial Vital Signs Temp Pulse Resp BP Pulse Ox 97.5 F L 84 20 140/65 100 04/29/18 13:25 04/29/18 13:25 04/29/18 13:25 04/29/18 13:25 04/29/18 13:25 GENERAL: NAD, awake, alert, and fully oriented HEENT: Nc/AT, EOMI, MARZENA, sclera anicteric, no mucosal ulcerations, MMM, no JVD noted LUNGS: CTA bilaterally. No wheezes, and no crackles. No accessory muscle use. On 2.5L at home. HEART: RRR, normal S1 and S2 without murmur ABDOMEN: Soft, NT/ND, BS positive, no guarding, No hepatomegaly or splenomegaly per palpation. EXTREMITIES: LUE AV fistula with palpable thrill. positive pulses. No peripheral edema. PSYCHIATRIC: Cooperative. Good eye contact. Appropriate mood and affect. SKIN: Warm, dry, no rashes or lesions. CBCD WBC 4.1 K/mm3 (4.0-10.0) 05/04/18 14:25 RBC 4.00 M/mm3 (3.60-5.2) 05/04/18 14:25 Hgb 11.3 GM/dL (10.7-15.3) 05/04/18 14:25 Hct 34.3 % (32.4-45.2) 05/04/18 14:25 MCV 85.7 fl (80-96) 05/04/18 14:25 MCHC 32.9 g/dl (32.0-36.0) 05/04/18 14:25 RDW 17.5 % (11.6-15.6) H 05/04/18 14:25 Plt Count 140 K/MM3 (134-434) 05/04/18 14:25 MPV 10.0 fl (7.5-11.1) 05/04/18 14:25 CMP Sodium 138 mmol/L (136-145) 05/04/18 14:25 Potassium 4.1 mmol/L (3.5-5.1) 05/04/18 14:25 Chloride 99 mmol/L (98-107) 05/04/18 14:25 Carbon Dioxide 29 mmol/L (21-32) 05/04/18 14:25 Anion Gap 10 MMOL/L (8-16) 05/04/18 14:25 BUN 16 mg/dL (7-18) 05/04/18 17:00 Creatinine 2.4 mg/dL (0.55-1.3) H 05/04/18 17:00 Creat Clearance w eGFR 5.63 (>60) 05/04/18 14:25 Random Glucose 179 mg/dL (74-106) H 05/04/18 14:25 Calcium 8.2 mg/dL (8.5-10.1) L 05/04/18 14:25 Total Bilirubin 0.9 mg/dL (0.2-1) 05/04/18 06:20 AST 13 U/L (15-37) L 05/04/18 06:20 ALT 16 U/L (13-61) 05/04/18 06:20 Alkaline Phosphatase 57 U/L (45-117) 05/04/18 06:20 Total Protein 7.2 g/dl (6.4-8.2) 05/04/18 06:20 Albumin 4.0 g/dl (3.4-5.0) 05/04/18 06:20 CARDIAC ENZYMES Creatine Kinase 39 U/L (26-192) 04/30/18 12:54 Troponin I 0.02 ng/ml (0.00-0.05) 05/01/18 08:40 Current Medications Generic Name Dose Route Start Last Admin Trade Name Freq PRN Reason Stop Dose Admin Amlodipine Besylate 10 mg 05/01/18 10:00 05/04/18 11:28 Norvasc - PO Not Given DAILY [facility] Docusate Sodium 100 mg 04/30/18 22:00 05/04/18 22:36 Colace - PO 100 mg BID [facility] Administration Insulin Aspart 1 vial 04/30/18 22:00 05/05/18 06:20 Novolog Vial Sliding Scale - SQ Not Given ACHS [facility] Protocol Isosorbide Mononitrate 60 mg 05/04/18 07:36 05/04/18 11:26 Imdur - PO Not Given DAILY [facility] Losartan Potassium 50 mg 04/30/18 13:30 05/04/18 11:26 Cozaar - PO Not Given DAILY [facility] Metoprolol Tartrate 50 mg 04/30/18 22:00 05/04/18 22:37 Lopressor - PO 50 mg BID [facility] Administration Rosuvastatin Calcium 20 mg 04/30/18 22:00 05/04/18 22:37 Crestor - PO 20 mg HS [facility] Administration Fluticasone/Salmeterol 1 puff 04/30/18 22:00 05/04/18 22:37 Advair 100mcg/50mcg - IH 1 puff BID [facility] Administration Home Medications Medication Instructions Recorded Acetaminophen W/ Codeine #3 1 tab PO TID 04/08/18 [Tylenol # 3 -] Amlodipine Besylate 10 mg PO DAILY 04/08/18 Docusate Sodium 100 mg PO BID 04/08/18 Metoprolol Tartrate 50 mg PO BID 04/08/18 Pregabalin [Lyrica -] 150 mg PO BID 04/08/18 Rosuvastatin [Crestor -] 20 mg PO HS 04/08/18 Salmeterol/Fluticasone [Advair 1 puff IH BID 04/08/18 100Mcg/50Mcg -] Sevelamer Carbonate [Renvela -] 800 mg PO TID 04/08/18 Ventolin HFA Inhaler - 2 puff IH QID 04/08/18 Losartan Potassium [Cozaar -] 50 mg PO DAILY 30 Days #30 tablet 05/04/18 Isosorbide Mononitrate [Imdur -] 60 mg PO DAILY #30 tab.sr.24h 05/05/18 ASSESSMENT AND PLAN: Patient is a 88yo creol speaking Female with PMHx of ESRD (M/W/F), 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 Patient was send to ED. for further care and was found to have low platelets of 27K. #Acute thrombocytopenia 27k--28k--> 68k-->72K-->104-->135K-->140k today, HIT2 antibodies are Negative. 's CONSULT appreciated. # Acute chest pain during dialysis resolved post adding Imdur 60mg po daily increased by ,stress test is negative , no ischemia. As per cardio and nephro , patient can go home. also post Imdur patient has no longer chest pain. # Acute shortness of breath due to her COPD, while getting dialyzed as per patient , patient became short of breath. Given a nebulizer treatment, felt better, pulmonary consult appreciated. CT of chest ordered, No acute changes, Emphysematoes lung. continue o2 at home, as per Dr. Gautam Jimenez while having dialysis. . # hx of COPD continue home meds. continue home 02 #ESRD on HD(MWF) , on the case. # Hx of CHF (not in exacerbation) # hx of HTN continue home meds. # hx of DM ss with coverage. continue home meds. patient is bedridden.
[2018-05-05] MEDS ORDERED: PT OWN MED DRAWER 7, Y5N ONE (09:06)
[2018-05-05] MEDS: FLUTICASONE/SALMETEROL 100 MCG/50 MCG DISKUS IH SCH (09:20)
[2018-05-05] MEDS: LOSARTAN POTASSIUM 50 MG TABLET (FP) PO SCH (09:20)
[2018-05-05] MEDS: DOCUSATE SODIUM 100 MG CAPSULE (FP) PO SCH (09:20)
[2018-05-05] MEDS: ISOSORBIDE MONONITRATE 30 MG TAB.SR.24H (FP) PO SCH (09:20)
[2018-05-05] MEDS: amLODIPine BESYLATE 10 MG TABLET (FP) PO SCH (09:21)
[2018-05-05] MEDS: METOPROLOL TARTRATE 50 MG TABLET (FP) PO SCH (09:21)
--- NOTE | 2018-05-05 10:19 | PN ---
Progress Note, Physician Chief Complaint: Events noted Appears comfortable this am History of Present Illness: Patient was seen and examined. Awake and alert. Chart was reviewed Denies chest pain, less SOB and no palpitations - Current Medication List Current Medications: Active Medications Amlodipine Besylate (Norvasc -) 10 mg PO DAILY [facility] Last Admin: 05/05/18 09:21 Dose: 10 mg Docusate Sodium (Colace -) 100 mg PO BID [facility] Last Admin: 05/05/18 09:20 Dose: 100 mg Insulin Aspart (Novolog Vial Sliding Scale -) 1 vial SQ ACHS [facility]; Protocol Last Admin: 05/05/18 06:20 Dose: Not Given Isosorbide Mononitrate (Imdur -) 60 mg PO DAILY [facility] Last Admin: 05/05/18 09:20 Dose: 60 mg Losartan Potassium (Cozaar -) 50 mg PO DAILY [facility] Last Admin: 05/05/18 09:20 Dose: 50 mg Metoprolol Tartrate (Lopressor -) 50 mg PO BID [facility] Last Admin: 05/05/18 09:21 Dose: 50 mg Rosuvastatin Calcium (Crestor -) 20 mg PO HS [facility] Last Admin: 05/04/18 22:37 Dose: 20 mg Fluticasone/Salmeterol (Advair 100mcg/50mcg -) 1 puff IH BID [facility] Last Admin: 05/05/18 09:20 Dose: 1 puff - Objective Vital Signs: Vital Signs Temperature 98.1 F 05/05/18 06:00 Pulse Rate 65 05/05/18 06:00 Respiratory Rate 18 05/05/18 06:00 Blood Pressure 150/66 05/05/18 06:00 O2 Sat by Pulse Oximetry (%) 98 05/04/18 21:00 HENT: Yes: Atraumatic Neck: Yes: Supple Cardiovascular: Yes: Regular Rate and Rhythm, S1, S2 Respiratory: Yes: CTA Bilaterally Gastrointestinal: Yes: Normal Bowel Sounds, Soft. No: Tenderness Edema: No Additional Findings/Remarks: - Review of Systems Constitutional: denies: Chills, Fever Cardiovascular: denies: Shortness of Breath. denies: Chest Pain, Palpitations Respiratory: denies: SOB, SOB on Exertion. denies: Cough, Hemoptysis, Orthopnea , PND Gastrointestinal: denies: Abdominal Pain, Constipation, Diarrhea, Melena, Nausea , Rectal Bleeding, Vomiting Musculoskeletal: denies: Back Pain, Joint Pain Neurological: denies: Dizziness, Headache, Seizure, Syncope Labs: CBC, BMP 05/04/18 14:25 05/04/18 17:00 Problem List - Problems (1) ESRD (end stage renal disease) on dialysis Code(s): N18.6 - END STAGE RENAL DISEASE; Z99.2 - DEPENDENCE ON RENAL DIALYSIS (2) Pulmonary hypertension Code(s): I27.20 - PULMONARY HYPERTENSION, UNSPECIFIED (3) Shortness of breath Code(s): R06.02 - SHORTNESS OF BREATH (4) Thrombocytopenia Code(s): D69.6 - THROMBOCYTOPENIA, UNSPECIFIED (5) Diabetes Code(s): E11.9 - TYPE 2 DIABETES MELLITUS WITHOUT COMPLICATIONS Qualifiers: Diabetes mellitus type: type 2 Diabetes mellitus fdc insulin use: without long term acute care registered nurse use Diabetes mellitus complication status: with kidney complications Diabetes mellitus complication detail: with chronic kidney disease Chronic kidney disease stage: on chronic dialysis Qualified Code(s) : E11.22 - Type 2 diabetes mellitus with diabetic chronic kidney disease; N18.6 - End stage renal disease; Z99.2 - Dependence on renal dialysis (6) Diastolic CHF Code(s): I50.30 - UNSPECIFIED DIASTOLIC (CONGESTIVE) HEART FAILURE Qualifiers: Heart failure chronicity: acute on chronic Qualified Code(s): I50.33 - Acute on chronic diastolic (congestive) heart failure (7) Hypercholesterolemia Code(s): E78.00 - PURE HYPERCHOLESTEROLEMIA, UNSPECIFIED (8) Hypertension Code(s): I10 - ESSENTIAL (PRIMARY) HYPERTENSION Qualifiers: Hypertension type: essential hypertension Qualified Code(s): I10 - Essential (primary) hypertension (9) Pericardial effusion Code(s): I31.3 - PERICARDIAL EFFUSION (NONINFLAMMATORY) Assessment/Plan 1. Acute on chronic class II-III NYHA classification diastolic heart failure with pulmonary HTN 2. HTN 3. CAD angina pectoris, MPI negative for ischemia 4. DM 5. Hypercholesterolemia 6. Pericardial effusion, probably uremic etiology 7. COPD 8. ESRD on HD 9. Resolved thrombocytopenia PLAN: 1. HD as per Renal 2. Respiratory symptom appears to be due to pulmonary HTN as nuclear MPI was unremarkable for CAD. Echocardiography report was noted. Continue Imdur 60 mg QD and continue Norvasc 10 mg QD, Lopressor 50 mg BID, Cozaar 50 mg QD and Crestor 20 mg QHS with uptitration as tolerated. 3. Bronchodilator and O2 as needed 4. D/c planning with f/u in office Onesimo Hightower MD
[2018-05-05] MEDS ORDERED: SODIUM CHLORIDE 250 ML IV PRN (11:54)
--- NOTE | 2018-05-05 11:54 | PN ---
Progress Note, Physician History of Present Illness: Pt seen and examined at bedside. She is awake and alert. She is not short of breath today. - Current Medication List Current Medications: Active Medications Amlodipine Besylate (Norvasc -) 10 mg PO DAILY [facility] Last Admin: 05/05/18 09:21 Dose: 10 mg Docusate Sodium (Colace -) 100 mg PO BID [facility] Last Admin: 05/05/18 09:20 Dose: 100 mg Insulin Aspart (Novolog Vial Sliding Scale -) 1 vial SQ ACHS [facility]; Protocol Last Admin: 05/05/18 06:20 Dose: Not Given Isosorbide Mononitrate (Imdur -) 60 mg PO DAILY [facility] Last Admin: 05/05/18 09:20 Dose: 60 mg Losartan Potassium (Cozaar -) 50 mg PO DAILY [facility] Last Admin: 05/05/18 09:20 Dose: 50 mg Metoprolol Tartrate (Lopressor -) 50 mg PO BID [facility] Last Admin: 05/05/18 09:21 Dose: 50 mg Rosuvastatin Calcium (Crestor -) 20 mg PO HS [facility] Last Admin: 05/04/18 22:37 Dose: 20 mg Fluticasone/Salmeterol (Advair 100mcg/50mcg -) 1 puff IH BID [facility] Last Admin: 05/05/18 09:20 Dose: 1 puff - Objective Vital Signs: Vital Signs Temperature 98.1 F 05/05/18 06:00 Pulse Rate 65 05/05/18 06:00 Respiratory Rate 18 05/05/18 06:00 Blood Pressure 150/66 05/05/18 06:00 O2 Sat by Pulse Oximetry (%) 98 05/04/18 21:00 Constitutional: Yes: Calm Eyes: Yes: Conjunctiva Clear HENT: Yes: Atraumatic Neck: Yes: Supple Cardiovascular: Yes: S1, S2 Respiratory: Yes: On Nasal O2 Gastrointestinal: Yes: Soft Genitourinary: Yes: WNL Musculoskeletal: Yes: WNL Edema: No Neurological: Yes: Oriented Psychiatric: Yes: Oriented Labs: CBC, BMP 05/04/18 14:25 05/04/18 17:00 INR, PTT INR 0.86 (0.83-1.09) 04/30/18 08:50 Problem List - Problems (1) ESRD (end stage renal disease) on dialysis Code(s): N18.6 - END STAGE RENAL DISEASE; Z99.2 - DEPENDENCE ON RENAL DIALYSIS Assessment/Plan Current Medications Generic Name Dose Route Start Last Admin Trade Name Shubham PRN Reason Stop Dose Admin Amlodipine Besylate 10 mg 05/01/18 10:00 05/05/18 09:21 Norvasc - PO 10 mg DAILY [facility] Administration Docusate Sodium 100 mg 04/30/18 22:00 05/05/18 09:20 Colace - PO 100 mg BID [facility] Administration Insulin Aspart 1 vial 04/30/18 22:00 05/05/18 06:20 Novolog Vial Sliding Scale - SQ Not Given ACHS [facility] Protocol Isosorbide Mononitrate 60 mg 05/04/18 07:36 05/05/18 09:20 Imdur - PO 60 mg DAILY [facility] Administration Losartan Potassium 50 mg 04/30/18 13:30 05/05/18 09:20 Cozaar - PO 50 mg DAILY [facility] Administration Metoprolol Tartrate 50 mg 04/30/18 22:00 05/05/18 09:21 Lopressor - PO 50 mg BID [facility] Administration Rosuvastatin Calcium 20 mg 04/30/18 22:00 05/04/18 22:37 Crestor - PO 20 mg HS [facility] Administration Fluticasone/Salmeterol 1 puff 04/30/18 22:00 05/05/18 09:20 Advair 100mcg/50mcg - IH 1 puff BID [facility] Administration Impression 1. ESRD 2. HTN 3. HLD 4. COPD 5. DM 6. pos heb b core 7. abd pain 8. vomiting 9. anemia 10. pericardial effusion 11. thrombocytopenia 12. chest pain 13. angina Plan - pt had HD yesterday - cont current meds - imdur increased to 60 mg - monitor bp - she has HD set up as outpt - HIT ab neg Dr Reis
--- NOTE | 2018-05-05 13:29 | PN ---
Progress Note (short form) - Note Progress Note: PULMONARY CONSULTATION DICTATED 05/05/18 IMP DYSPNEA CHF ESRD PULMONARY HTN COPD O2 DEPENDENT ASHD HTN DM PERICARDIAL EFFUSION THROMBOCYOPENIA RESOLVED PLAN O2 INHALED BRONCHODILATORS CONSIDER BIPAP DURING DIALYSIS CHEST CT IMDUR ABG PFTS OUTPATIENT DR SANABRIA Problem List - Problems (1) ESRD (end stage renal disease) on dialysis Code(s): N18.6 - END STAGE RENAL DISEASE; Z99.2 - DEPENDENCE ON RENAL DIALYSIS (2) History of end stage renal disease Code(s): Z87.448 - PERSONAL HISTORY OF OTHER DISEASES OF URINARY SYSTEM (3) Pulmonary hypertension Code(s): I27.20 - PULMONARY HYPERTENSION, UNSPECIFIED (4) Shortness of breath Code(s): R06.02 - SHORTNESS OF BREATH (5) Thrombocytopenia Code(s): D69.6 - THROMBOCYTOPENIA, UNSPECIFIED (6) Acute pulmonary edema Code(s): J81.0 - ACUTE PULMONARY EDEMA (7) Dyspnea Code(s): R06.00 - DYSPNEA, UNSPECIFIED Qualifiers: Dyspnea type: shortness of breath Qualified Code(s): R06.02 - Shortness of breath; R06.00 - Dyspnea, unspecified; R06.01 - Orthopnea (8) COPD exacerbation Code(s): J44.1 - CHRONIC OBSTRUCTIVE PULMONARY DISEASE W (ACUTE) EXACERBATION (9) Diastolic CHF Code(s): I50.30 - UNSPECIFIED DIASTOLIC (CONGESTIVE) HEART FAILURE Qualifiers: Heart failure chronicity: acute on chronic Qualified Code(s): I50.33 - Acute on chronic diastolic (congestive) heart failure (10) Hypertension Code(s): I10 - ESSENTIAL (PRIMARY) HYPERTENSION Qualifiers: Hypertension type: essential hypertension Qualified Code(s): I10 - Essential (primary) hypertension (11) Pericardial effusion Code(s): I31.3 - PERICARDIAL EFFUSION (NONINFLAMMATORY)
--- NOTE | 2018-05-05 13:55 | CONS ---
DATE OF CONSULTATION: 05/05/2018 REFERRING PHYSICIAN: Vivian Barrios MD HISTORY: The patient is an 88-year-old black female with past medical history of end-stage renal disease on hemodialysis 3 times weekly for approximately 2 months, CHF, pulmonary hypertension, COPD O2 dependent, hypertension, diabetes, ASHD admitted to [facility] on April 30 secondary to shortness of breath while getting dialysis. The patient apparently while getting dialysis became acutely short of breath. She presented to [facility] ER for further monitoring. In the ER, she was also noted to be severely thrombocytopenic with a platelet count of 27,000. She was admitted for further therapy. On admission, she was evaluated by Dr. Conrad for cardiology consultation and felt that the patient likely had acute on chronic CHF. She was also evaluated by Hematology who felt that the thrombocytopenia was most likely due to passive congestion. Hospitalization is significant for her symptoms improved. Thrombocytopenia resolved. Yesterday, while the patient was getting dialysis again, she developed respiratory distress at which time she was placed on BiPAP with a good clinical response. She denied any chest pain, nausea, vomiting, or diaphoresis at that time. There was no hemoptysis. According to the patient's daughter, since she has been on dialysis for approximately 2 months, every time she starts the procedure she develops severe dyspnea requiring her to go to the ER as well as developed chest pains. Of note, as an outpatient she has been tried on different dialyzers as well as given Ativan prior to initiation of therapy, which also not much improvement. The patient has a history of tobacco use approximately 30 years. Quit 30 years ago. There is no history of occupational exposure to chemicals or fumes. She was born in [facility] and moved to the [facility] many years ago. PAST MEDICAL HISTORY: Again, includes COPD on home O2, hypertension, nephrolithiasis, frequent UTIs, history of GI bleed, end-stage renal disease on hemodialysis, hyperlipidemia, diabetes, diastolic dysfunction with heart failure. REVIEW OF SYSTEMS: Positive dyspnea. No cough. Positive intermittent chest pains, which have subsequently resolved. No fever, no chills, no hemoptysis, no abdominal pain. CURRENT MEDICATIONS: Include Ativan, Cozaar, Lopressor, Colace, Norvasc, normal saline, Crestor, NovoLog, and Imdur. PHYSICAL EXAMINATION: General: The patient is an elderly black female awake, alert in no acute distress. Vital Signs: She is afebrile. Blood pressure is 133/60, respirations 18, O2 saturation 98% on 2 L nasal cannula. HEENT: Normocephalic and atraumatic. Neck: Supple. Heart: Regular with S1, S2. Chest: Clear. Abdomen: Soft. Bowel sounds positive. Extremities: No cyanosis or edema. LABORATORIES: WBC 4.1, hemoglobin 11.3, hematocrit 34.3 with a platelet count of 140,000. INR 0.86. Venous blood gas 7.35, PCO2 of 38, PO2 of 57, BUN 16, creatinine 2.4. Chest x-ray: Retrocardiac area possible infiltrate, minimal fluid, possible infiltrate right base. IMPRESSION: 1. Dyspnea most likely acute on chronic congestive heart failure. 2. Shortness of breath during hemodialysis possibly secondary to dialysis, possible hypoventilation during procedure. 3. Possible anxiety. 4. Possible arteriosclerotic heart disease. 5. Pulmonary hypertension, again, end-stage renal disease. 6. Chronic obstructive pulmonary disease O2 dependent. 7. Arteriosclerotic heart disease. 8. Diagnosed with hypertension. 9. Pericardial effusion. 10. Thrombocytopenia, resolved. PLAN: Continue O2. Inhaled bronchodilators. Consider BiPAP during dialysis. CT scan of the chest. Imdur. Consider ABG to see if the patient is significantly hypercapnic. PFT as an outpatient. SEBASTIAN SANABRIA M.D. BRIAN/[id number]
[2018-05-05 14:43] LABS: ARTERIAL BLD GAS O2 SATURATION 97.5 % (90-98.9); ARTERIAL BLOOD GAS BASE EXCESS 7.1 meq/l (-2-2); ARTERIAL BLOOD GAS PCO2 46.6 mmHg (35-45); ARTERIAL BLOOD GAS PO2 95.3 mmHg (68-100); ARTERIAL BLOOD GAS pH 7.45 (7.35-7.45)
[2018-05-05 14:44] LABS: ALLENS TEST POSITIVE
[2018-05-05 14:49] VITALS: BMI 23.0
--- NOTE | 2018-05-05 17:16 | PN ---
Physical Exam: SUBJECTIVE: Patient seen and examined OBJECTIVE: Vital Signs Period Temp Pulse Resp BP Sys/Betancourt Pulse Ox Last 24 Hr 97.8 F-98.9 F 65-97 18-19 111-151/49-84 98-98 GENERAL: The patient is awake, alert, and fully oriented, in no acute distress. HEAD: Normal with no signs of trauma. EYES: PERRL, extraocular movements intact, sclera anicteric, conjunctiva clear. No ptosis. ENT: Ears normal, nares patent, oropharynx clear without exudates, moist mucous membranes. NECK: Trachea midline, full range of motion, supple. LUNGS: Breath sounds equal, clear to auscultation bilaterally, no wheezes, no crackles, no accessory muscle use. HEART: Regular rate and rhythm, S1, S2 without murmur, rub or gallop. ABDOMEN: Soft, nontender, nondistended, normoactive bowel sounds, no guarding, no rebound, no hepatosplenomegaly, no masses. EXTREMITIES: 2+ pulses, warm, well-perfused, no edema. NEUROLOGICAL: Cranial nerves II through XII grossly intact. Normal speech, gait not observed. PSYCH: Normal mood, normal affect. SKIN: Warm, dry, normal turgor, no rashes or lesions noted Laboratory Results - last 24 hr 05/04/18 05/04/18 05/04/18 17:00 17:23 22:35 Puncture Site ABG pH ABG pCO2 at Pt Temp ABG pO2 at Pt Temp ABG HCO3 ABG O2 Sat (Measured) ABG O2 Content ABG Base Excess Usman Test Oxygen Flow Rate BUN 16 Creatinine 2.4 H POC Glucometer 101 101 05/05/18 05/05/18 05/05/18 06:19 11:17 13:33 Puncture Site Right radial ABG pH 7.45 ABG pCO2 at Pt Temp 46.6 H ABG pO2 at Pt Temp 95.3 ABG HCO3 31.6 H ABG O2 Sat (Measured) 97.5 ABG O2 Content 14.4 L ABG Base Excess 7.1 H Usman Test Positive Oxygen Flow Rate Yes BUN Creatinine POC Glucometer 79 223 05/05/18 16:20 Puncture Site ABG pH ABG pCO2 at Pt Temp ABG pO2 at Pt Temp ABG HCO3 ABG O2 Sat (Measured) ABG O2 Content ABG Base Excess Usman Test Oxygen Flow Rate BUN Creatinine POC Glucometer 182 Active Medications Generic Name Dose Route Start Last Admin Trade Name Freq PRN Reason Stop Dose Admin Amlodipine Besylate 10 mg 05/01/18 10:00 05/05/18 09:21 Norvasc - PO 10 mg DAILY FORREST Administration Docusate Sodium 100 mg 04/30/18 22:00 05/05/18 09:20 Colace - PO 100 mg BID FORREST Administration Sodium Chloride 250 mls @ 3,000 mls/hr 05/05/18 11:54 Normal Saline - IV 05/06/18 11:54 PRN PRN Hypotension during Dialysis Insulin Aspart 1 vial 04/30/18 22:00 05/05/18 12:44 Novolog Vial Sliding Scale - SQ 4 units ACHS FORREST Administration Protocol Isosorbide Mononitrate 60 mg 05/04/18 07:36 05/05/18 09:20 Imdur - PO 60 mg DAILY FORREST Administration Losartan Potassium 50 mg 04/30/18 13:30 05/05/18 09:20 Cozaar - PO 50 mg DAILY FORREST Administration Metoprolol Tartrate 50 mg 04/30/18 22:00 05/05/18 09:21 Lopressor - PO 50 mg BID FORREST Administration Rosuvastatin Calcium 20 mg 04/30/18 22:00 05/04/18 22:37 Crestor - PO 20 mg HS FORREST Administration Fluticasone/Salmeterol 1 puff 04/30/18 22:00 05/05/18 09:20 Advair 100mcg/50mcg - IH 1 puff BID FORREST Administration ASSESSMENT/PLAN: Patient is a 88yo creol speaking Female with PMHx of ESRD (M/W/F), 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 Patient was send to ED. for further care and was found to have low platelets of 27K. #Thrombocytopenia Improving -135 this AM B12 and folate WNL HIT antibody peniing , avoid Heparine or LMWH Monitor for signs of bleeding Hematology consulted- ultrasound showed either fatty infiltration v. passive congestion #chest pain during HD and Shortness of breath cardiology consulted recommend losartan 50 daily, cont Norvasc and lopressor 50 daily, increased imdur to 60 daily going for stress this AM # Abdominal pain likely due to constipation colace 100 po BID # ESRD on MWF HD HD per nephrology this AM # HTN resume home meds # HLD cont Crestor 20 mg HS #DM BGM ACHS; ISS Hold oral agents # H/O CHF and H/O COPD not in exacerbation #FEN: F: No standing fluids E: monitor and replenished as needed Nutrition: Renal diabetic diet #PPX: DVT - Mod risk; scds due to low platelets Problem List - Problems (1) ESRD (end stage renal disease) on dialysis Code(s): N18.6 - END STAGE RENAL DISEASE; Z99.2 - DEPENDENCE ON RENAL DIALYSIS (2) Pulmonary hypertension Code(s): I27.20 - PULMONARY HYPERTENSION, UNSPECIFIED (3) History of end stage renal disease Code(s): Z87.448 - PERSONAL HISTORY OF OTHER DISEASES OF URINARY SYSTEM (4) Shortness of breath Code(s): R06.02 - SHORTNESS OF BREATH (5) Thrombocytopenia Code(s): D69.6 - THROMBOCYTOPENIA, UNSPECIFIED
[2018-05-05 18:22] VITALS: BP 112/53; PULSE 70; TEMP 98.1
--- NOTE | 2018-05-05 18:54 | DS ---
Physical Exam: SUBJECTIVE: Patient seen and examined at bedside no acute events overngight ; patient is not longer ahving dyspnea and she is ready to go home- denies CP./SOB /N/V OBJECTIVE: Vital Signs Period Temp Pulse Resp BP Sys/Betancourt Pulse Ox Last 24 Hr 97.8 F-98.9 F 65-97 18-18 111-151/49-84 98-98 PHYSICAL EXAM GENERAL: The patient is awake, alert, and fully oriented, in no acute distress. EYES: PEERLA: EOMI no scleral icteus NECK: no JVD: no lymphadenopathy. LUNGS: slight rales at the bases HEART: Regular rate and rhythm, S1, S2 without murmur, rub or gallop. ABDOMEN: Soft, nontender, nondistended, normoactive bowel sounds, no guarding, no rebound, no hepatosplenomegaly, no masses. EXTREMITIES: 2+ pulses, warm, well-perfused, no edema. PSYCH: Normal mood, normal affect. SKIN: Warm, dry, normal turgor, no rashes or lesions noted. LABS Laboratory Results - last 24 hr 05/04/18 05/04/18 05/05/18 17:00 22:35 06:19 Puncture Site ABG pH ABG pCO2 at Pt Temp ABG pO2 at Pt Temp ABG HCO3 ABG O2 Sat (Measured) ABG O2 Content ABG Base Excess Usman Test Oxygen Flow Rate BUN 16 Creatinine 2.4 H POC Glucometer 101 79 05/05/18 05/05/18 05/05/18 11:17 13:33 16:20 Puncture Site Right radial ABG pH 7.45 ABG pCO2 at Pt Temp 46.6 H ABG pO2 at Pt Temp 95.3 ABG HCO3 31.6 H ABG O2 Sat (Measured) 97.5 ABG O2 Content 14.4 L ABG Base Excess 7.1 H Usman Test Positive Oxygen Flow Rate Yes BUN Creatinine POC Glucometer 223 182 HOSPITAL COURSE: Date of Admission:04/30/18 88 y/o female with PMH CKD< HTN , HLD presented while having chest pain and shortness of breath duirng dialysis and was sent in by dr perkins. in addition her plateelts were found to be very low at 23 on arrival. she was given 2 units of platelets, seen by heme-onc who did U/S of abdomen which showed hepatic congestion v. fatty disease/. CXR was done which shows emphseyma with air trapping but no focal infiltrate. in regards to her chest pain, she had a stress test which was negative and an echo which was normal/ she was discharged home on imdur 60 - she was also given neb treatments. she was discharged home with follow up to see the wheat shipper and pulmonolgist as patient may need BIPAP during dialysis as this has been happening to her quite frequently in the past. she was stable enough for dc home Date of Discharge: 05/05/18 Minutes to complete discharge: 39 Discharge Summary Reason For Visit: SOB/THROMBOCYTOPENIA/HYPOPHOSPHATEMIA/END-STAGE Current Active Problems Abdominal pain (Acute) ESRD (end stage renal disease) on dialysis (Acute) History of end stage renal disease (Acute) Hypophosphatemia (Acute) Pulmonary hypertension (Acute) Shortness of breath (Acute) Thrombocytopenia (Acute) Condition: Stable - Instructions Diet, Activity, Other Instructions: You came to the hospital with worsening of shortness of breath and chest pain during your regularly scheduled dialysis session and you underwent a stress test which was normal. In addition, your platelets were found to be low on admission to the hospital, which has since improved. Please resume all of your home medications in addition: -please take the medication Imdur 60mg daily -please take the medication Losartan 50mg daily Please follow up with your primary care physician, Dr. Marrufo within one week Please follow up with Dr. Reis within one week Please follow up with Dr. Conrad, the wheat shipper within one week Please follow up with Dr. Florez, the land development manager within one week to get pulmonary function tests performed PLease use your nebulizer before dialysis and BIPAP during dialysis to reduce shortness of breath. *if you begin to experience any chest pains, shortness of breath, nausea/ vomiting please return to the emergency room immediately Referrals: Reid Marrufo [Other] - 1 Week Ayden Florez MD [Staff Physician] - 1 Week Zelda Reis MD [Staff Physician] - 1 Week Hal Conrad MD [Staff Physician] - 1 Week Disposition: HOME - Home Medications Comprehensive Discharge Medication List: Ambulatory Orders Acetaminophen W/ Codeine #3 [Tylenol # 3 -] 1 tab PO TID 04/08/18 Amlodipine Besylate 10 mg PO DAILY 04/08/18 Docusate Sodium 100 mg PO BID 04/08/18 Metoprolol Tartrate 50 mg PO BID 04/08/18 Pregabalin [Lyrica -] 150 mg PO BID 04/08/18 Rosuvastatin [Crestor -] 20 mg PO HS 04/08/18 Salmeterol/Fluticasone [Advair 100Mcg/50Mcg -] 1 puff IH BID 04/08/18 Sevelamer Carbonate [Renvela -] 800 mg PO TID 04/08/18 Ventolin HFA Inhaler - 2 puff IH QID 04/08/18 Losartan Potassium [Cozaar -] 50 mg PO DAILY 30 Days #30 tablet 05/04/18 Isosorbide Mononitrate [Imdur -] 60 mg PO DAILY #30 tab.sr.24h 05/05/18 Problem List - Problems (1) ESRD (end stage renal disease) on dialysis Code(s): N18.6 - END STAGE RENAL DISEASE; Z99.2 - DEPENDENCE ON RENAL DIALYSIS (2) Pulmonary hypertension Code(s): I27.20 - PULMONARY HYPERTENSION, UNSPECIFIED (3) History of end stage renal disease Code(s): Z87.448 - PERSONAL HISTORY OF OTHER DISEASES OF URINARY SYSTEM (4) Shortness of breath Code(s): R06.02 - SHORTNESS OF BREATH (5) Thrombocytopenia Code(s): D69.6 - THROMBOCYTOPENIA, UNSPECIFIED This patient is new to me today: No Emergency Visit: Yes ED Registration Date: 04/30/18 Care time: The patient presented to the Emergency Department on the above date and was hospitalized for further evaluation of their emergent condition. Critical Care patient: No - Discharge Referral Referred to [facility] Med [facility].C[facility] No
== END 2018-05-05 19:35 | disposition home or self-care (01) | DRG 813 ==
LOC: JER 13:09 → JERBED 15:37 → J5S 18:23 → OBSVTOIN 04-30 11:15 → J4S 04-30 15:46
PROVIDERS: ADMIT Internal Medicine; ATTEND Internal Medicine
PROC: 5A1D70Z Performance of Urinary Filtration, Intermittent, Less than 6 Hours Per Day (ICD-10-PCS; principal; 2018-04-30)
PROC: 5A1D70Z Performance of Urinary Filtration, Intermittent, Less than 6 Hours Per Day (ICD-10-PCS; 2018-05-02)
PROC: 5A1D70Z Performance of Urinary Filtration, Intermittent, Less than 6 Hours Per Day (ICD-10-PCS; 2018-05-04)
DX: D69.6 Thrombocytopenia, unspecified (principal); N18.6 End stage renal disease; I50.33 Acute on chronic diastolic (congestive) heart failure; J81.0 Acute pulmonary edema; I31.3 Pericardial effusion (noninflammatory); I13.2 Hypertensive heart and chronic kidney disease with heart failure and with stage 5 chronic kidney disease, or end stage renal disease; K21.9 Gastro-esophageal reflux disease without esophagitis; E11.9 Type 2 diabetes mellitus without complications; E83.39 Other disorders of phosphorus metabolism; N20.0 Calculus of kidney; R11.10 Vomiting, unspecified; R07.89 Other chest pain; J44.9 Chronic obstructive pulmonary disease, unspecified; I27.20 Pulmonary hypertension, unspecified; I16.0 Hypertensive urgency; E11.22 Type 2 diabetes mellitus with diabetic chronic kidney disease; Z99.2 Dependence on renal dialysis; I25.119 Atherosclerotic heart disease of native coronary artery with unspecified angina pectoris; D64.9 Anemia, unspecified; Z99.81 Dependence on supplemental oxygen; Z87.891 Personal history of nicotine dependence
CPT/HCPCS: 36415; 36600; 71045-TC-FY; 71250-TC; 76700-TC; 78452-TC; 80048; 80053; 82542; 82550; 82565; 82607; 82746; 82803; 82962; 83735; 83880; 84100; 84484; 84520; 85025; 85027; 85610; 85730; 86022; 86850; 86900; 86901; 87040; 93005; 93010; 93017; 93306-TC; 94640; 99284-25; A9502; G0378; J2785

== ENCOUNTER 2018-05-27 12:15 | Inpatient (IN) | payer OTHER ==
--- NOTE | 2018-05-27 13:48 | CONSULT ---
Consultation: CONSULT REQUEST: Nephrology HISTORY OF PRESENT ILLNESS: Poor historian 88yo F with h/o ESRD (M/W/F), COPD (on home O2), HTN, DM, diastolic dysfunction who was sent here from dialysis center because she was being combative during dialysis. Per daughter, patient has been confused and more altered over the last 5 days. She says her mom has been urinating less over the past week and had complaints of lower abdominal pain. The daughter did not report any other complaints or symptoms from the patient. PMHx: ESRD (M/W/F), COPD (on home O2), HTN, DM, diastolic dysfunction Social hx: unable to obtain REVIEW OF SYSTEMS: unable to obtain due to confusion. PHYSICAL EXAMINATION Vital Signs - 24 hr 05/27/18 12:43 Pulse Rate 112 H Respiratory 20 Rate Blood Pressure 190/83 H O2 Sat by Pulse 91 L Oximetry (%) Limited Physical exam due to confusion and patient combative. GENERAL: in no acute distress, confused and combative EYES: Pupils equal, round and reactive to light, conjunctiva clear. LUNGS: Breath sounds equal, clear to auscultation bilaterally HEART: Regular rate and rhythm ABDOMEN: nontender but very difficult to assess due to her being combative. LOWER EXTREMITIES: No peripheral edema. ASSESSMENT/PLAN: 88yo F with h/o ESRD (M/W/F), COPD (on home O2), HTN, DM, diastolic dysfunction who was sent here from dialysis center because of confusion. #AMS #ESRD #COPD #HTN #DM #D CHF -Check U/A, urine culture -Will need Head CT -Order CXR -Follow BMP -Will dialyze once CVA r/o -cont home breathing treatments -avoid nephrotoxins Dispo: We will continue to follow the patient. Thank you for this consultative opportunity. Visit type - Emergency Visit Emergency Visit: Yes Care time: The patient presented to the Emergency Department on the above date and was hospitalized for further evaluation of their emergent condition. - New Patient This patient is new to me today: Yes Date on this admission: 05/27/18 - Critical Care Critical Care patient: No
--- NOTE | 2018-05-27 13:56 | PDOC ---
Attending Attestation - HPI HPI: 05/27/18 14:33 The patient is a 88 year old female, with a significant past medical history of ESRD (on HD M/W/F), CHF, COPD (on home O2 2L), asthma, GERD, HTN, DM, and diastolic dysfunction, who presents to the emergency department with, 5 days of worsening altered mental status. As per aid at bedside translating (patient speaks Creole), she has come increasingly combative at dialysis prompting her arrival to the ED. Allergies: Egg. Primary Care Physician: Dr. Garcia Nephro: Dr. Reis <Pio Fulton - Last Filed: 05/27/18 14:33> - Resident Resident Name: Bartolo Bruno - ED Attending Attestation I have performed the following: I have examined & evaluated the patient, The case was reviewed & discussed with the resident, I agree w/resident's findings & plan, Exceptions are as noted - Physicial Exam PE: 05/27/18 15:37 Patient is alert, agitated, combative, attempting to spit, bite and strike staff members Normocephalic and atraumatic PERRLA, EOMI CTA RRR Moving all extremities symmetrically - Medical Decision Making 05/27/18 15:37 Patient is an 88-year-old female with multiple comorbidities, history of end- stage renal disease on hemodialysis (Friday/Friday/Friday) last dialysis 2 days previously presents to the ER with altered mental status, agitation and hallucinations. Symptoms are consistent with acute delirium. Patient will require physical and chemical sedation. Will obtain CT head. Will rule out infection or metabolic encephalopathy. Likely admission. <Blayne Branham - Last Filed: 05/27/18 15:39> Attestations - Attestations 05/27/18 14:34 Documentation prepared by Pio Fulton, acting as medical management specialist for Blayne Branham MD. <Pio Fulton - Last Filed: 05/27/18 14:33>
[2018-05-27] MEDS ORDERED: LORazepam 2 MG/ML SDV VIAL ONE (14:00)
--- NOTE | 2018-05-27 14:18 | PDOC ---
History of Present Illness - General Chief Complaint: Altered Mental Status Stated Complaint: Altered Mental Status Time Seen by Provider: 05/27/18 13:06 History Source: Patient Exam Limitations: No Limitations - History of Present Illness Initial Comments: 05/27/18 14:07 88 yo female pmh NIDDM, COPD (2L O2 at home) HTN, CKD (Nephro is [facility], dialysis M/W/F, last dialyzed on Friday) HTN, HLD and recent admission for SOB during dialysis (found to also have hepatic congestion with platelets of 23 requiring transfusion) presents to the ED with worsening AMS for 5 days. Pt speaks Creole, Human Geography Faculty Member present and HPI provided by pts daughter over the phone. States her mother was a previously high functioning 88 yo, AOX3 but recently has been acting very odd. Pt has been hallucinating, states someone is trying to kill her and has been crawling on her bed like a baby. Today pt is AOX1, became agitated and aggressive while at dialysis (did not start dialysis today due to aggression). Family states pt does currently make urine however pt has not been producing as much urine recently and also had suprapubic discomfort. Pt has never had a similar episode in the past, family denies recent illness/sick contacts, F/C/N/V, CP, SOB, back pain Past History - Past Medical History Allergies/Adverse Reactions: Allergies Allergy/AdvReac Type Severity Reaction Status Date / Time egg AdvReac Vomiting Verified 05/27/18 12:48 Home Medications: Ambulatory Orders Albuterol Sulfate Inhaler - [Ventolin Hfa Inhaler -] 2 inh PO Q6H 05/27/18 Amlodipine Besylate 10 mg PO HS 05/27/18 Isosorbide Mononitrate [Imdur -] 60 mg PO DAILY 05/27/18 Losartan Potassium 50 mg PO DAILY 05/27/18 Metoprolol Tartrate 50 mg PO BID 05/27/18 Pregabalin [Lyrica -] 75 mg PO DAILY 05/27/18 Rosuvastatin [Crestor -] 20 mg PO HS 05/27/18 Salmeterol/Fluticasone [Advair 100Mcg/50Mcg -] 1 inh PO BID 05/27/18 Sevelamer Carbonate [Renvela] 800 mg PO TID 05/27/18 Anemia: Yes Asthma: Yes Cancer: No CVA: Yes COPD: Yes (home o2) CHF: Yes Dementia: No Diabetes: Yes GI Disorders: Yes (GERD) HTN: Yes Kidney Stones: Yes Liver Disease: No Seizures: No Thyroid Disease: No - Surgical History Abdominal Surgery: No - Immunization History Immunization Up to Date: Yes - Suicide/Smoking/Psychosocial Hx Smoking History: Never smoked Have you smoked in the past 12 months: No Number of Cigarettes Smoked Daily: 0 Cigars Per Day: 0 Information on smoking cessation initiated: No Hx Alcohol Use: No Drug/Substance Use Hx: No Substance Use Type: None Hx Substance Use Treatment: No Review of Systems - Review of Systems Able to Perform ROS?: No (AMS) *Physical Exam - Vital Signs Last Vital Signs Temp Pulse Resp BP Pulse Ox 112 H 20 190/83 H 91 L 05/27/18 12:43 05/27/18 12:43 05/27/18 12:43 05/27/18 12:43 - Physical Exam General Appearance: Yes: Nourished, Appropriately Dressed, Apparent Distress ( combative ) HEENT: positive: EOMI, CHAN, Normal Voice, Hearing Grossly Normal Neck: positive: Supple. negative: Carotid bruit, Decreased range of motion, Tender midline Respiratory/Chest: positive: Lungs Clear, Normal Breath Sounds. negative: Accessory Muscle Use, Rapid RR, Crackles, Rales, Rhonchi, Stridor, Wheezing Cardiovascular: positive: Regular Rhythm, Tachycardia. negative: Edema, Murmur Vascular Pulses: Dorsalis-Pedis (R): 4+, Doralis-Pedis (L): 4+ Gastrointestinal/Abdominal: positive: Flat, Soft. negative: Pulsatile Mass, Protuberent, Distended, Guarding, Rebound, Tenderness Musculoskeletal: positive: Normal Inspection. negative: CVA Tenderness Extremity: positive: Normal Capillary Refill, Normal Inspection, Normal Range of Motion. negative: Pedal Edema Integumentary: positive: Normal Color, Dry, Warm Neurologic: positive: electronic resources librarian II-XII NML intact (unable to follow commands however 2 -12 appear grossly intact ), Alert, Motor Strength 5/5 (moving all ext againts resistance), Confused, Disoriented. negative: Fully Oriented (X1), Normal Mood/ Affect (aggitated, aggressive and hallucinations), EOM Palsy, Facial Droop ED Treatment Course - LABORATORY CBC & Chemistry Diagram: 05/28/18 06:30 05/28/18 06:30 - RADIOLOGY Radiology Studies Ordered: Category Date Time Status HEAD CT WITHOUT CONTRAST [CT] Stat CT Scan 05/27/18 13:19 Ordered CHEST X-RAY PORTABLE* [RAD] Stat Radiology 05/27/18 13:23 Ordered Medical Decision Making - Medical Decision Making 05/27/18 18:21 88 yo prior high functioning female, pmh CKD presents with hallucinations, agitation and aggression. Recently started Lyrica and Ranexa. Vitals show elevated HR and BP, O2 at bedside 94% on RA. Pt is to combative to keep home O2 of 2L on currently EKG NSR without ST elevations or depressions Pt very combative in the ED attempts to kick and bite staff. Physical and chemical restraints required to attain blood, prevent pt from removing IV and to keep calm for imaging. Pt responds to ativan and benadryl, 2L NC O2 given DDX INLT: Infectious/toxic/metabolic etiology, CVA, uremia, hepatic encephalopathy, UTI Head CT negative for acute pathology Labs including ammonia, WBC and UA negative Pt continues to be agitated and have hallucinations. Daughters present at the bedside Case discussed with Dr. Breen (Neurology) states pt would benefit from MRI and admission for further work up Nephro aware of pt and was seen at the bedside Pt admitted for further workup of AMS *DC/Admit/Observation/Transfer Diagnosis at time of Disposition: Altered mental status, unspecified - Discharge Dispostion Decision to Admit order: Yes - Referrals - Patient Instructions - Post Discharge Activity
[2018-05-27 14:28] LABS: BASO % 0.8 % (0-2.0); EOS % 0.1 % (0-4.5); HEMATOCRIT 41.5 % (32.4-45.2); HEMOGLOBIN 13.1 GM/dL (10.7-15.3); LYMPH % 6.3 % (8-40); MCH 26.8 pg (25.7-33.7); MCHC 31.5 g/dl (32.0-36.0); MEAN PLT VOLUME 9.5 fl (7.5-11.1); MONO % 7.1 % (3.8-10.2); NEUT % 85.7 % (42.8-82.8); PLATELET COUNT 126 K/MM3 (134-434); RBC 4.88 M/mm3 (3.60-5.2); RDW 16.4 % (11.6-15.6); WHITE BLOOD COUNT 4.4 K/mm3 (4.0-10.0)
[2018-05-27 14:46] LABS: INR 0.82 (0.83-1.09); PROTHROMBIN TIME (PATIENT) 9.7 SEC (9.7-13.0)
[2018-05-27 14:48] LABS: ACTIVATED PTT 24.9 SECONDS (25.2-36.5)
[2018-05-27 14:51] LABS: ALBUMIN 4.4 g/dl (3.4-5.0); ALK PHOS 78 U/L (45-117); ANION GAP 10 MMOL/L (8-16); BILIRUBIN,TOTAL 0.7 mg/dL (0.2-1); BLOOD UREA NITROGEN 38 mg/dL (7-18); CALCIUM 9.3 mg/dL (8.5-10.1); CHLORIDE 101 mmol/L (98-107); CO2 29 mmol/L (21-32); CREATININE 7.1 mg/dL (0.55-1.3); GLUCOSE,RANDOM 151 mg/dL (74-106); POTASSIUM 4.4 mmol/L (3.5-5.1); SGOT/AST 17 U/L (15-37); SGPT/ALT 15 U/L (13-61); SODIUM 140 mmol/L (136-145); TOT PROT 7.8 g/dl (6.4-8.2)
[2018-05-27 17:43] LABS: MAGNESIUM 2.1 mg/dL (1.8-2.4); PHOSPHOROUS 2.1 mg/dL (2.5-4.9)
--- NOTE | 2018-05-27 17:57 | PN ---
Teaching Attending Note Name of Resident: Lyudmila Rasmussen (Nephrology) ATTENDING PHYSICIAN STATEMENT I saw and evaluated the patient. I reviewed the resident's note and discussed the case with the resident. I agree with the resident's findings and plan as documented. Renal Pt is an 88 year old female with pmhx of esrd, copd, htn and enemia who I sent in from HD for agitation. She presented with confusion this morning. She is unable to give history. I spoke to her daughter and she says that her symptoms started on Friday and have gotten worse. She also has suprapubic discomfort. pmhx esrd htn copd pshx avg allergies egg family hx non contrib ros unable to assess Microbiology Laboratory Tests 05/27/18 05/27/18 13:59 13:59 WBC 4.4 Hgb 13.1 Potassium 4.4 Carbon Dioxide 29 cardio s1s2 reg pulm fine rhonchi right base Gi soft ext neg edema neuro confusion skin neg rash Impression 1. ESRD 2. HTN 3. HLD 4. COPD 5. DM 6. pos heb b core 7. confusion with altered mental status 8. anemia Plan - send urine and blood cultures - check ua - pt is too agitated for HD at this point - ct head neg - repeat labs in am - resume bp meds - if she refused PO can give IV
[2018-05-27 19:03] LABS: PH,URINE 8.5 (5.0-8.0); URINE APPEARANCE CLEAR; URINE BACTERIA 0.8 /hpf (NEGATIVE); URINE BILIRUBIN NEGATIVE (NEGATIVE); URINE CASTS 2 /hpf (0-8); URINE COLOR YELLOW; URINE GLUCOSE (UA) NEGATIVE (NEGATIVE); URINE KETONE NEGATIVE (NEGATIVE); URINE LEUK ESTERASE NEGATIVE (NEGATIVE); URINE NITRITE NEGATIVE (NEGATIVE); URINE PROTEIN 3+ (NEGATIVE); URINE RBC 3 /hpf (0-4); URINE UROBILINOGEN 0.2 mg/dL (0.2-1.0); URINE WBC 1 /hpf (0-5)
--- NOTE | 2018-05-27 19:50 | HP ---
CHIEF COMPLAINT: Agitation ,AMS PCP: Dr. Garcia HISTORY OF PRESENT ILLNESS: Patient is an 88 year old woman with PMH of ESRD on hemodialysis (M/W/F), COPD ( on home O2), HTN, NIDDM and diastolic dysfunction who was sent here from dialysis center because she was being combative during dialysis. Per daughter, patient has been confused and more altered over the last 5 days. She says her mom has been urinating less over the past week and had complaints of lower abdominal pain. The daughter did not report any other complaints or symptoms from the patient. ER course was notable for: (1) CT head (2)cbc, cmp (3)Ativan , Benadryl , IV fluids Recent Travel:denies PAST MEDICAL HISTORY: as per HPI PAST SURGICAL HISTORY: Av fistula Social History: Smoking:denies Alcohol:denies Drugs: denies Family History: noncontributory Allergies egg Adverse Reaction (Verified 05/27/18 12:48) Vomiting HOME MEDICATIONS: Home Medications Medication Instructions Recorded Albuterol Sulfate Inhaler - 2 inh PO Q6H 05/27/18 [Ventolin Hfa Inhaler -] Amlodipine Besylate 10 mg PO HS 05/27/18 Isosorbide Mononitrate [Imdur -] 60 mg PO DAILY 05/27/18 Losartan Potassium 50 mg PO DAILY 05/27/18 Metoprolol Tartrate 50 mg PO BID 05/27/18 Pregabalin [Lyrica -] 150 mg PO BID 05/27/18 Rosuvastatin [Crestor -] 20 mg PO HS 05/27/18 Salmeterol/Fluticasone [Advair 1 inh PO BID 05/27/18 100Mcg/50Mcg -] Sevelamer Carbonate [Renvela] 800 mg PO TID 05/27/18 REVIEW OF SYSTEMS: Agitation , AMS , paranoid CONSTITUTIONAL: Absent: fever, chills, diaphoresis, generalized weakness, malaise, loss of appetite, weight change HEENT: Absent: rhinorrhea, nasal congestion, throat pain, throat swelling, difficulty swallowing, mouth swelling, ear pain, eye pain, visual changes CARDIOVASCULAR: Absent: chest pain, syncope, palpitations, irregular heart rate, lightheadedness , peripheral edema RESPIRATORY: Absent: cough, shortness of breath, dyspnea with exertion, orthopnea, wheezing, stridor, hemoptysis GASTROINTESTINAL: Absent: abdominal pain, abdominal distension, nausea, vomiting, diarrhea, constipation, melena, hematochezia GENITOURINARY: Absent: dysuria, frequency, urgency, hesitancy, hematuria, flank pain, genital pain MUSCULOSKELETAL: Absent: myalgia, arthralgia, joint swelling, back pain, neck pain SKIN: Absent: rash, itching, pallor HEMATOLOGIC/IMMUNOLOGIC: Absent: easy bleeding, easy bruising, lymphadenopathy, frequent infections ENDOCRINE: Absent: unexplained weight gain, unexplained weight loss, heat intolerance, cold intolerance NEUROLOGIC: Absent: headache, focal weakness or paresthesias, dizziness, unsteady gait, seizure, mental status changes, bladder or bowel incontinence PSYCHIATRIC: Absent: anxiety, depression, suicidal or homicidal ideation, hallucinations. PHYSICAL EXAMINATION Vital Signs - 24 hr 05/27/18 05/27/18 05/27/18 12:43 12:52 18:40 Temperature 98.3 F 98 F Pulse Rate 112 H Pulse Rate [ 98 H Left Radial] Respiratory 20 18 Rate Blood Pressure 190/83 H Blood Pressure 162/86 [Right Arm] O2 Sat by Pulse 91 L 98 Oximetry (%) GENERAL: Awake, alert, and fully oriented, in no acute distress. HEAD: Normal with no signs of trauma. EYES: Pupils equal, round and reactive to light, extraocular movements intact, sclera anicteric, conjunctiva clear. No lid lag. EARS, NOSE, THROAT: Ears normal, nares patent, oropharynx clear without exudates. Moist mucous membranes. NECK: Normal range of motion, supple without lymphadenopathy, JVD, or masses. LUNGS: Breath sounds equal, clear to auscultation bilaterally. No wheezes, and no crackles. No accessory muscle use. HEART: Regular rate and rhythm, normal S1 and S2 without murmur, rub or gallop. ABDOMEN: Soft, nontender, not distended, normoactive bowel sounds, no guarding, no rebound, no masses. No hepatomegaly or splenomegaly. MUSCULOSKELETAL: Normal range of motion at all joints. No bony deformities or tenderness. No CVA tenderness. UPPER EXTREMITIES: 2+ pulses, warm, well-perfused. No cyanosis. No clubbing. No peripheral edema. LOWER EXTREMITIES: 2+ pulses, warm, well-perfused. No calf tenderness. No peripheral edema. NEUROLOGICAL: Cranial nerves II-XII intact. Normal speech. Normal gait. PSYCHIATRIC: Cooperative. Good eye contact. Appropriate mood and affect. SKIN: Warm, dry, normal turgor, no rashes or lesions noted, normal capillary refill. Laboratory Results - last 24 hr 05/27/18 05/27/18 05/27/18 13:59 13:59 13:59 WBC 4.4 RBC 4.88 Hgb 13.1 Hct 41.5 D MCV 85.0 MCH 26.8 MCHC 31.5 L RDW 16.4 H Plt Count 126 L MPV 9.5 Absolute Neuts (auto) 3.7 Neutrophils % 85.7 H D Lymphocytes % 6.3 L D Monocytes % 7.1 Eosinophils % 0.1 D Basophils % 0.8 Nucleated RBC % 0 PT with INR 9.70 INR 0.82 L PTT (Actin FS) 24.9 L Sodium 140 Potassium 4.4 Chloride 101 Carbon Dioxide 29 Anion Gap 10 BUN 38 H Creatinine 7.1 H Creat Clearance w eGFR 5.45 POC Glucometer Random Glucose 151 H Lactic Acid Calcium 9.3 Phosphorus 2.1 L Magnesium 2.1 Total Bilirubin 0.7 AST 17 ALT 15 Alkaline Phosphatase 78 Ammonia Creatine Kinase 74 Troponin I < 0.02 Total Protein 7.8 Albumin 4.4 Urine Color Urine Appearance Urine pH Ur Specific [place] Urine Protein Urine Glucose (UA) Urine Ketones Urine Blood Urine Nitrite Urine Bilirubin Urine Urobilinogen Ur Leukocyte Esterase Urine WBC (Auto) Urine RBC (Auto) Urine Casts (Auto) U Epithel Cells (Auto) Urine Bacteria (Auto) Blood Type Antibody Screen 05/27/18 05/27/18 05/27/18 13:59 13:59 13:59 WBC RBC Hgb Hct MCV MCH MCHC RDW Plt Count MPV Absolute Neuts (auto) Neutrophils % Lymphocytes % Monocytes % Eosinophils % Basophils % Nucleated RBC % PT with INR INR PTT (Actin FS) Sodium Potassium Chloride Carbon Dioxide Anion Gap BUN Creatinine Creat Clearance w eGFR POC Glucometer Random Glucose Lactic Acid 2.4 H* Calcium Phosphorus Magnesium Total Bilirubin AST ALT Alkaline Phosphatase Ammonia 14.30 Creatine Kinase Troponin I Total Protein Albumin Urine Color Urine Appearance Urine pH Ur Specific [place] Urine Protein Urine Glucose (UA) Urine Ketones Urine Blood Urine Nitrite Urine Bilirubin Urine Urobilinogen Ur Leukocyte Esterase Urine WBC (Auto) Urine RBC (Auto) Urine Casts (Auto) U Epithel Cells (Auto) Urine Bacteria (Auto) Blood Type A POSITIVE Antibody Screen Negative 05/27/18 05/27/18 14:08 16:13 WBC RBC Hgb Hct MCV MCH MCHC RDW Plt Count MPV Absolute Neuts (auto) Neutrophils % Lymphocytes % Monocytes % Eosinophils % Basophils % Nucleated RBC % PT with INR INR PTT (Actin FS) Sodium Potassium Chloride Carbon Dioxide Anion Gap BUN Creatinine Creat Clearance w eGFR POC Glucometer 147 Random Glucose Lactic Acid Calcium Phosphorus Magnesium Total Bilirubin AST ALT Alkaline Phosphatase Ammonia Creatine Kinase Troponin I Total Protein Albumin Urine Color Yellow Urine Appearance Clear Urine pH 8.5 H D Ur Specific [place] 1.014 Urine Protein 3+ H Urine Glucose (UA) Negative Urine Ketones Negative Urine Blood Negative Urine Nitrite Negative Urine Bilirubin Negative Urine Urobilinogen 0.2 Ur Leukocyte Esterase Negative Urine WBC (Auto) 1 Urine RBC (Auto) 3 Urine Casts (Auto) 2 U Epithel Cells (Auto) 2.0 Urine Bacteria (Auto) 0.8 Blood Type Antibody Screen CBC, BMP 05/27/18 13:59 05/27/18 13:59 ASSESSMENT/PLAN: #AMS likely due to uremia vs dehydration vs HTN encephalopathy vs electrolytes imbalance hypophosphatemia * started on Friday and has been worsning , could not finish HD today due to agitation * AAOx2 place and person with fluctuation * LA was elevated R.O infection componenet , impoved with Gentle hydration , * will hold merari and renvela for now * Head CT with no acute pathology * R.O reversible causes : B12 , folic acid and TSH * was given ativan and Benadryl in ED for agitation * cxr with scoliosis, blunted left CP angle and RLL atelectasis will monitor off abx # Thrombocytopenia likley due to hepatic congestion * worked up in last visit * chronic , no active bleeding * DC Heparin if drop below 100 * repeat lab #ESRD on dialysis * cont HD M/W/F * Dr Reis consulted #Hypophosphatemia * acute on chronic * replinished as needed as it might contribute to ai agitation #COPD (not in exacerbation) * cont home meds Adavir , duoneb , albuterol PRN #D CHF (not in exacerbation) * resume home meds #HTN resume home meds * she was dc on imdur 60 once daily alst visit switch by her pcp to BIDIL * resume other home meds #DM * last A1c 5.6 but daughter reports some elevation at home in 200 * ISS * BGM ACHS * diabetic diet low NA diet # FEN * NS @ 42 CC/hr * Monitor lytes and replinished as needed * low NA , diabetic diet # Proph * DVTS: SCDS , Hep BID * GI: PPI 20 mg po daily * Visit type - Emergency Visit Emergency Visit: Yes ED Registration Date: 05/27/18 Care time: The patient presented to the Emergency Department on the above date and was hospitalized for further evaluation of their emergent condition. - New Patient This patient is new to me today: Yes Date on this admission: 05/27/18 - Critical Care Critical Care patient: No
--- NOTE | 2018-05-27 20:35 | PN ---
Teaching Attending Note Name of Resident: Escobar Kelley ATTENDING PHYSICIAN STATEMENT I saw and evaluated the patient. I reviewed the resident's note and discussed the case with the resident. I agree with the resident's findings and plan as documented. SUBJECTIVE: Patient is an 88 year old woman with PMH of ESRD on hemodialysis (M/W/F), COPD ( on home O2), HTN, NIDDM and diastolic dysfunction who was sent here from dialysis center because she was being combative during dialysis. Per daughter, patient has been confused and more altered over the last 5 days. She says her mom has been urinating less over the past week and had complaints of lower abdominal pain. The daughter did not report any other complaints or symptoms from the patient. OBJECTIVE: Alert Vital Signs Period Temp Pulse Resp BP Sys/Betancourt Pulse Ox Last 24 Hr 98 F-98.3 F 98-112 18-20 162-190/83-86 91-98 HEENT: No Jaundice, eye redness or discharge, PERRLA, EOMI. Normocephalic, atraumatic. External ears are normal and hearing is grossly intact. No nasal discharge. Neck: Supple, nontender. No palpable adenopathy or thyromegaly. No JVD Chest: Good effort. Clear to auscultation and percussion. Heart: Regular. No S3, rub or murmur Abdomen: Not distended, soft, nontender and no HSM. No rebound or guarding. Normal bowel sounds. Ext: Peripheral pulses intact. No leg edema. Skin: Warm and dry. No petechiae, rash or ecchymosis. Neuro: Alert. Agitated. Oriented to person. CN 2-12 grossly intact. Sensation grossly intact in all four extremities and DTR are symmetric. Psych: Agitated. Home Medications Medication Instructions Recorded Albuterol Sulfate Inhaler - 2 inh PO Q6H 05/27/18 [Ventolin Hfa Inhaler -] Amlodipine Besylate 10 mg PO HS 05/27/18 Isosorbide Mononitrate [Imdur -] 60 mg PO DAILY 05/27/18 Losartan Potassium 50 mg PO DAILY 05/27/18 Metoprolol Tartrate 50 mg PO BID 05/27/18 Pregabalin [Lyrica -] 150 mg PO BID 05/27/18 Rosuvastatin [Crestor -] 20 mg PO HS 05/27/18 Salmeterol/Fluticasone [Advair 1 inh PO BID 05/27/18 100Mcg/50Mcg -] Sevelamer Carbonate [Renvela] 800 mg PO TID 05/27/18 Abnormal Lab Results 05/27/18 05/27/18 05/27/18 13:59 13:59 13:59 MCHC 31.5 L RDW 16.4 H Plt Count 126 L Neutrophils % 85.7 H D Lymphocytes % 6.3 L D INR 0.82 L PTT (Actin FS) 24.9 L BUN 38 H Creatinine 7.1 H Random Glucose 151 H Lactic Acid Phosphorus 2.1 L Urine pH Urine Protein 05/27/18 05/27/18 13:59 16:13 MCHC RDW Plt Count Neutrophils % Lymphocytes % INR PTT (Actin FS) BUN Creatinine Random Glucose Lactic Acid 2.4 H* Phosphorus Urine pH 8.5 H D Urine Protein 3+ H ASSESSMENT AND PLAN: 1. Altered Mental Status - Etiology unclear. No acute pathology on head CT. CXR shows scoliosis, blunted left CP angle and RLL atelectasis. No acute ST-T wave changes on EKG. Lactic acidosis raises the possibility of infection, but there is no other finding in support of infection and no obvious source. Will repeat lactic acid level and monitor her closely. No indication for antibiotics at his time. Hypertensive encephalopathy may be the culprit - will treat hypertension. Unclear why she is on Lyrica - will hold Lyrica since it may have LEAD SHIPPER side effects. Hypophosphatemia may be due to Renvela therapy and may partly explain AMS. Will hold Renvela and treat with Neutraphos. 2. DM Will implement sliding scale insulin regimen. Provide comprehensive diabetes care with patient teaching and counseling about the importance of adherence to prescribed diabetes regimen, euglycemia, eye care and foot care. 3. ESRD - Will consult nephrology to review dialysis prescription and continue thrice weekly hemodialysis. 4. Hypertension - Restart outpatient antihypertensive drugs and ensure adequate dialytic fluid removal to ensure smooth [id number] good BP control. Nonpharmacologic measures to control hypertension like weight loss, salt restriction and exercise discussed. 5. DVT prophylaxis - Heparin 5000u sq tid. 6. Advance directives - Full code
[2018-05-27] MEDS ORDERED: SODIUM CHLORIDE 1,000 ML IV SCH (21:15)
[2018-05-27] MEDS ORDERED: NAPH,MB-DB/K PH,MBDB POWDER PACKET PO ONE (21:29)
[2018-05-27] MEDS ORDERED: ROSUVASTATIN CA 20 MG TABLET (FP) PO SCH (22:00)
[2018-05-27] MEDS ORDERED: PREGABALIN 75 MG CAPSULE PO SCH (22:00)
[2018-05-27] MEDS: FLUTICASONE/SALMETEROL 100 MCG/50 MCG DISKUS IH SCH (22:58)
[2018-05-27] MEDS: amLODIPine BESYLATE 10 MG TABLET (FP) PO SCH (22:59)
[2018-05-27] MEDS: HEPARIN NA (PORCINE) 5,000 UNITS/ML 1ML VIAL SQ SCH (22:59)
[2018-05-27] MEDS: METOPROLOL TARTRATE 50 MG TABLET (FP) PO SCH (22:59)
[2018-05-27] MEDS: ROSUVASTATIN CA 10 MG TABLET (FP) PO SCH (22:59)
[2018-05-27] MEDS: RANOLAZINE E.R. 500 MG TABLET (FP) PO SCH (23:00)
[2018-05-27] MEDS: INSULIN SLIDING SCALE (NOVOLOG) 1 VIAL SQ SCH (23:00)
[2018-05-28] MEDS: ALBUTEROL SO4 8 GM HFA INHALER IH SCH ×4 (01:58→17:26)
[2018-05-28] MEDS: INSULIN SLIDING SCALE (NOVOLOG) 1 VIAL SQ SCH ×4 (06:15→21:23)
[2018-05-28 07:57] LABS: INR 0.87 (0.83-1.09); PROTHROMBIN TIME (PATIENT) 10.3 SEC (9.7-13.0)
[2018-05-28 07:58] LABS: HEMATOCRIT 39.4 % (32.4-45.2); HEMOGLOBIN 12.6 GM/dL (10.7-15.3); MCH 27.6 pg (25.7-33.7); MCHC 32.1 g/dl (32.0-36.0); PLATELET COUNT 144 K/MM3 (134-434); RBC 4.58 M/mm3 (3.60-5.2); RDW 16.3 % (11.6-15.6); WHITE BLOOD COUNT 6.2 K/mm3 (4.0-10.0)
[2018-05-28 07:59] LABS: ACTIVATED PTT 30.7 SECONDS (25.2-36.5)
[2018-05-28 08:00] LABS: ALBUMIN 3.9 g/dl (3.4-5.0); ALK PHOS 71 U/L (45-117); ANION GAP 9 MMOL/L (8-16); BILIRUBIN,TOTAL 0.8 mg/dL (0.2-1); BLOOD UREA NITROGEN 43 mg/dL (7-18); CALCIUM 8.7 mg/dL (8.5-10.1); CHLORIDE 107 mmol/L (98-107); CO2 27 mmol/L (21-32); GLUCOSE,RANDOM 85 mg/dL (74-106); PHOSPHOROUS 3.6 mg/dL (2.5-4.9); POTASSIUM 4.4 mmol/L (3.5-5.1); SGOT/AST 19 U/L (15-37); SGPT/ALT 14 U/L (13-61); SODIUM 143 mmol/L (136-145); TOT PROT 6.9 g/dl (6.4-8.2)
[2018-05-28] MEDS ORDERED: SEVELAMER CARBONATE 800 MG TAB (FP) PO SCH (08:00)
[2018-05-28 08:15] LABS: CREATININE 7.5 mg/dL (0.55-1.3)
--- NOTE | 2018-05-28 08:53 | CON.NEURO ---
Consult - History of Present Illness History of Present Illness: 88 year old woman with PMH of ESRD on hemodialysis (M/W/F), COPD (on home O2), HTN, NIDDM and diastolic dysfunction who was sent here from dialysis center because she was being combative during dialysis. Per daughter, patient has been confused and more altered over the last 5 days. She says her mom has been urinating less over the past week and had complaints of lower abdominal pain. The daughter did not report any other complaints or symptoms from the patient. THis AM agitated and speaking creole , as per nephro this is not her baseline -elevated lactic acid -CT HD No intracranial hemorrhage is seen. There is no extra-axial fluid collection. No discrete infarct is identified within the limitations of CT. In comparison to prior CT studies of 02/15/2018 and 05/03/2017 note is again made of minimal to mild focal hyperdense dural thickening along the right tentorial leaf medially. Status post small bilateral parietal craniotomies as on prior studies. There is no gross mass lesion on noncontrast imaging. No obstructive hydrocephalus is noted. Impression: There is no CT evidence of acute intracranial pathology. No definite interval change is identified in comparison to prior exams. Note is again made of stable nonspecific minimal to mild focal dural thickening along the right tentorial leaf. Correlation with 6-12 month follow-up CT is suggested to document continued stability. - Past Medical History Cardio/Vascular: Yes: HTN Pulmonary: Yes: COPD Gastrointestinal: Yes: GERD Renal/: Yes: Renal Inusuff, Hemodialysis, Renal Calculi (maybe- she had flank pain) Endocrine: Yes: Diabetes Mellitus - Past Surgical History Past Surgical History: Yes: AV Fistula/Graft - Alcohol/Substance Use Hx Alcohol Use: No - Smoking History Smoking history: Former smoker Have you smoked in the past 12 months: No Aproximately how many cigarettes per day: 0 Home Medications - Allergies Allergies/Adverse Reactions: Allergies Allergy/AdvReac Type Severity Reaction Status Date / Time egg AdvReac Vomiting Verified 05/27/18 12:48 - Home Medications Home Medications: Ambulatory Orders Albuterol Sulfate Inhaler - [Ventolin Hfa Inhaler -] 2 inh PO Q6H 05/27/18 Amlodipine Besylate 10 mg PO HS 05/27/18 Isosorbide Mononitrate [Imdur -] 60 mg PO DAILY 05/27/18 Losartan Potassium 50 mg PO DAILY 05/27/18 Metoprolol Tartrate 50 mg PO BID 05/27/18 Pregabalin [Lyrica -] 75 mg PO DAILY 05/27/18 Rosuvastatin [Crestor -] 20 mg PO HS 05/27/18 Salmeterol/Fluticasone [Advair 100Mcg/50Mcg -] 1 inh PO BID 05/27/18 Sevelamer Carbonate [Renvela] 800 mg PO TID 05/27/18 Physical Exam-Neuro Vital Signs: Vital Signs Temperature 98.4 F 05/28/18 05:48 Pulse Rate 101 H 05/28/18 05:48 Respiratory Rate 20 05/28/18 05:48 Blood Pressure 160/79 05/28/18 05:48 O2 Sat by Pulse Oximetry (%) 98 05/27/18 21:43 Labs: CBC, BMP 05/28/18 06:30 05/28/18 06:30 INR, PTT INR 0.87 (0.83-1.09) 05/28/18 06:30 Problem List - Problems (1) Altered mental status, unspecified Code(s): R41.82 - ALTERED MENTAL STATUS, UNSPECIFIED (2) ESRD (end stage renal disease) Code(s): N18.6 - END STAGE RENAL DISEASE (3) Epigastric abdominal pain Code(s): R10.13 - EPIGASTRIC PAIN Assessment/Plan 88 year old woman with PMH of ESRD on hemodialysis (M/W/F), COPD (on home O2), HTN, NIDDM and diastolic dysfunction who was sent here from dialysis center because she was being combative during dialysis. Per daughter, patient has been confused and more altered over the last 5 days. She says her mom has been urinating less over the past week and had complaints of lower abdominal pain. The daughter did not report any other complaints or symptoms from the patient. AP : suspect either new onset delirium vs new stroke, less likely encephalitis/ meningitis she was unable to complete dialysis, so metabolic derangements compound this issue ? underlying infection now new medication reported , agree with DC LYRICA can use ATIVAN 1mg to help with agitation PRN , if dialysis required (can give up to 2mg AND IF NO change consider low dose HALDOL 2mg) MRI BRAIN ; slight dural thickening/hyperdensity over R tentorium --stable on CT; no acute finding DR STINSON
[2018-05-28] MEDS ORDERED: ISOSORBIDE DINITRATE 20 MG TABLET (FP) PO SCH (10:00)
[2018-05-28] MEDS ORDERED: ISOSORBIDE MONONITRATE 60 MG TAB.SR.24H (FP) PO SCH (10:00)
[2018-05-28 11:34] LABS: ANISOCYTOSIS 1+; MACROCYTOSIS 0; PLATELET ESTIMATE NORMAL; TARGET CELLS 1+
--- NOTE | 2018-05-28 11:49 | EKG ---
Test Reason : Blood Pressure : / mmHG Vent. Rate : 097 BPM Atrial Rate : 097 BPM P-R Int : 188 ms QRS Dur : 094 ms QT Int : 356 ms P-R-T Axes : 077 082 078 degrees QTc Int : 452 ms NORMAL SINUS RHYTHM VOLTAGE CRITERIA FOR LEFT VENTRICULAR HYPERTROPHY ABNORMAL ECG WHEN COMPARED WITH ECG OF 30-APR-2018 13:17, PREMATURE VENTRICULAR COMPLEXES ARE NO LONGER PRESENT Confirmed by JOVAN MIDDLETON, MADELINE ([id number]) on 05/28/2018 11:49:26 AM Referred By: Confirmed By:MADELINE ALDANA MD
[2018-05-28] MEDS ORDERED: METOPROLOL TARTRATE 5 MG/5 ML VIAL IVPUSH PRN (12:08)
[2018-05-28] MEDS: FLUTICASONE/SALMETEROL 100 MCG/50 MCG DISKUS IH SCH ×2 (12:38→21:26)
[2018-05-28] MEDS: LOSARTAN POTASSIUM 50 MG TABLET (FP) PO SCH ×2 (12:38→12:58)
[2018-05-28] MEDS: hydrALAZINE HCL 25 MG TABLET (FP) PO SCH ×3 (12:38→17:25)
[2018-05-28] MEDS: HEPARIN NA (PORCINE) 5,000 UNITS/ML 1ML VIAL SQ SCH ×2 (12:38→21:27)
[2018-05-28] MEDS: RANOLAZINE E.R. 500 MG TABLET (FP) PO SCH ×3 (12:39→21:27)
[2018-05-28] MEDS: METOPROLOL TARTRATE 50 MG TABLET (FP) PO SCH ×3 (12:39→21:27)
[2018-05-28] MEDS: PANTOPRAZOLE 20 MG TABLET (FP) PO SCH ×2 (12:39→12:58)
--- NOTE | 2018-05-28 13:08 | PN ---
Physical Exam: SUBJECTIVE: Patient seen and examined at bedside- patient is very combative and agitated kicking and speaking in creole; seems very anxious this AM; spit out all of her PO meds- ROS could not be obtained given AMS OBJECTIVE: Vital Signs Period Temp Pulse Resp BP Sys/Betancourt Pulse Ox Last 24 Hr 98 F-98.4 F 90-101 18-20 152-162/79-89 96-98 GENERAL: The patient is awake, agitated; combative EYES:PEERLA: EOMI; no scleral icterus. NECK: no JVD: no lymphadenopathy LUNGS: CTA B/L; no rales, rhonchi or wheezing HEART: Regular rate and rhythm, S1, S2 without murmur, rub or gallop. ABDOMEN: Soft, nontender, nondistended, normoactive bowel sounds, no guarding, no rebound, no hepatosplenomegaly, no masses. EXTREMITIES: 2+ pulses, warm, well-perfused, no edema. PSYCH: confused; kicking/screaming; agitated SKIN: Warm, dry, normal turgor, no rashes or lesions noted Laboratory Results - last 24 hr 05/27/18 05/27/18 05/27/18 13:59 13:59 13:59 WBC 4.4 RBC 4.88 Hgb 13.1 Hct 41.5 D MCV 85.0 MCH 26.8 MCHC 31.5 L RDW 16.4 H Plt Count 126 L MPV 9.5 Absolute Neuts (auto) 3.7 Neutrophils % 85.7 H D Neutrophils % (Manual) Band Neutrophils % Lymphocytes % 6.3 L D Lymphocytes % (Manual) Monocytes % 7.1 Monocytes % (Manual) Eosinophils % 0.1 D Eosinophils % (Manual) Basophils % 0.8 Basophils % (Manual) Myelocytes % (Man) Promyelocytes % (Man) Blast Cells % (Manual) Nucleated RBC % 0 Metamyelocytes Hypochromia Platelet Estimate Polychromasia Poikilocytosis Anisocytosis Microcytosis Macrocytosis Target Cells PT with INR 9.70 INR 0.82 L PTT (Actin FS) 24.9 L Sodium 140 Potassium 4.4 Chloride 101 Carbon Dioxide 29 Anion Gap 10 BUN 38 H Creatinine 7.1 H Creat Clearance w eGFR 5.45 POC Glucometer Random Glucose 151 H Lactic Acid Calcium 9.3 Phosphorus 2.1 L Magnesium 2.1 Total Bilirubin 0.7 AST 17 ALT 15 Alkaline Phosphatase 78 Ammonia Creatine Kinase 74 Troponin I < 0.02 C-Reactive Protein B-Natriuretic Peptide Total Protein 7.8 Albumin 4.4 Vitamin B12 Serum Folate TSH Urine Color Urine Appearance Urine pH Ur Specific [place] Urine Protein Urine Glucose (UA) Urine Ketones Urine Blood Urine Nitrite Urine Bilirubin Urine Urobilinogen Ur Leukocyte Esterase Urine WBC (Auto) Urine RBC (Auto) Urine Casts (Auto) U Epithel Cells (Auto) Urine Bacteria (Auto) Blood Type Antibody Screen 05/27/18 05/27/18 05/27/18 13:59 13:59 13:59 WBC RBC Hgb Hct MCV MCH MCHC RDW Plt Count MPV Absolute Neuts (auto) Neutrophils % Neutrophils % (Manual) Band Neutrophils % Lymphocytes % Lymphocytes % (Manual) Monocytes % Monocytes % (Manual) Eosinophils % Eosinophils % (Manual) Basophils % Basophils % (Manual) Myelocytes % (Man) Promyelocytes % (Man) Blast Cells % (Manual) Nucleated RBC % Metamyelocytes Hypochromia Platelet Estimate Polychromasia Poikilocytosis Anisocytosis Microcytosis Macrocytosis Target Cells PT with INR INR PTT (Actin FS) Sodium Potassium Chloride Carbon Dioxide Anion Gap BUN Creatinine Creat Clearance w eGFR POC Glucometer Random Glucose Lactic Acid 2.4 H* Calcium Phosphorus Magnesium Total Bilirubin AST ALT Alkaline Phosphatase Ammonia 14.30 Creatine Kinase Troponin I C-Reactive Protein B-Natriuretic Peptide Total Protein Albumin Vitamin B12 Serum Folate TSH Urine Color Urine Appearance Urine pH Ur Specific [place] Urine Protein Urine Glucose (UA) Urine Ketones Urine Blood Urine Nitrite Urine Bilirubin Urine Urobilinogen Ur Leukocyte Esterase Urine WBC (Auto) Urine RBC (Auto) Urine Casts (Auto) U Epithel Cells (Auto) Urine Bacteria (Auto) Blood Type A POSITIVE Antibody Screen Negative 05/27/18 05/27/18 05/27/18 14:08 16:13 22:47 WBC RBC Hgb Hct MCV MCH MCHC RDW Plt Count MPV Absolute Neuts (auto) Neutrophils % Neutrophils % (Manual) Band Neutrophils % Lymphocytes % Lymphocytes % (Manual) Monocytes % Monocytes % (Manual) Eosinophils % Eosinophils % (Manual) Basophils % Basophils % (Manual) Myelocytes % (Man) Promyelocytes % (Man) Blast Cells % (Manual) Nucleated RBC % Metamyelocytes Hypochromia Platelet Estimate Polychromasia Poikilocytosis Anisocytosis Microcytosis Macrocytosis Target Cells PT with INR INR PTT (Actin FS) Sodium Potassium Chloride Carbon Dioxide Anion Gap BUN Creatinine Creat Clearance w eGFR POC Glucometer 147 82 Random Glucose Lactic Acid Calcium Phosphorus Magnesium Total Bilirubin AST ALT Alkaline Phosphatase Ammonia Creatine Kinase Troponin I C-Reactive Protein B-Natriuretic Peptide Total Protein Albumin Vitamin B12 Serum Folate TSH Urine Color Yellow Urine Appearance Clear Urine pH 8.5 H D Ur Specific [place] 1.014 Urine Protein 3+ H Urine Glucose (UA) Negative Urine Ketones Negative Urine Blood Negative Urine Nitrite Negative Urine Bilirubin Negative Urine Urobilinogen 0.2 Ur Leukocyte Esterase Negative Urine WBC (Auto) 1 Urine RBC (Auto) 3 Urine Casts (Auto) 2 U Epithel Cells (Auto) 2.0 Urine Bacteria (Auto) 0.8 Blood Type Antibody Screen 05/28/18 05/28/18 05/28/18 02:10 05:50 06:30 WBC 6.2 RBC 4.58 Hgb 12.6 Hct 39.4 MCV 86.0 MCH 27.6 MCHC 32.1 RDW 16.3 H Plt Count 144 MPV 10.0 Absolute Neuts (auto) 3.8 Neutrophils % No Result Required. Neutrophils % (Manual) 69.5 Band Neutrophils % 0.0 Lymphocytes % No Result Required. Lymphocytes % (Manual) 16.2 D Monocytes % Monocytes % (Manual) 7 Eosinophils % Eosinophils % (Manual) 0.9 Basophils % Basophils % (Manual) 1.0 Myelocytes % (Man) 0 Promyelocytes % (Man) 0 Blast Cells % (Manual) 0 Nucleated RBC % 0 Metamyelocytes 0 Hypochromia 0 Platelet Estimate Normal Polychromasia 0 Poikilocytosis 1+ Anisocytosis 1+ Microcytosis 1+ Macrocytosis 0 Target Cells 1+ PT with INR INR PTT (Actin FS) Sodium Potassium Chloride Carbon Dioxide Anion Gap BUN Creatinine Creat Clearance w eGFR POC Glucometer 91 Random Glucose Lactic Acid 0.7 Calcium Phosphorus Magnesium Total Bilirubin AST ALT Alkaline Phosphatase Ammonia Creatine Kinase Troponin I C-Reactive Protein B-Natriuretic Peptide Total Protein Albumin Vitamin B12 Serum Folate TSH Urine Color Urine Appearance Urine pH Ur Specific [place] Urine Protein Urine Glucose (UA) Urine Ketones Urine Blood Urine Nitrite Urine Bilirubin Urine Urobilinogen Ur Leukocyte Esterase Urine WBC (Auto) Urine RBC (Auto) Urine Casts (Auto) U Epithel Cells (Auto) Urine Bacteria (Auto) Blood Type Antibody Screen 05/28/18 05/28/18 05/28/18 06:30 06:30 06:30 WBC RBC Hgb Hct MCV MCH MCHC RDW Plt Count MPV Absolute Neuts (auto) Neutrophils % Neutrophils % (Manual) Band Neutrophils % Lymphocytes % Lymphocytes % (Manual) Monocytes % Monocytes % (Manual) Eosinophils % Eosinophils % (Manual) Basophils % Basophils % (Manual) Myelocytes % (Man) Promyelocytes % (Man) Blast Cells % (Manual) Nucleated RBC % Metamyelocytes Hypochromia Platelet Estimate Polychromasia Poikilocytosis Anisocytosis Microcytosis Macrocytosis Target Cells PT with INR 10.30 INR 0.87 PTT (Actin FS) 30.7 Sodium 143 Potassium 4.4 Chloride 107 Carbon Dioxide 27 Anion Gap 9 BUN 43 H Creatinine 7.5 H* Creat Clearance w eGFR 5.12 POC Glucometer Random Glucose 85 Lactic Acid 0.7 Calcium 8.7 Phosphorus 3.6 Magnesium 2.0 Total Bilirubin 0.8 AST 19 ALT 14 Alkaline Phosphatase 71 Ammonia Creatine Kinase Troponin I C-Reactive Protein < 0.3 B-Natriuretic Peptide 2868.0 H Total Protein 6.9 Albumin 3.9 Vitamin B12 531 Serum Folate 13 TSH 1.17 Urine Color Urine Appearance Urine pH Ur Specific [place] Urine Protein Urine Glucose (UA) Urine Ketones Urine Blood Urine Nitrite Urine Bilirubin Urine Urobilinogen Ur Leukocyte Esterase Urine WBC (Auto) Urine RBC (Auto) Urine Casts (Auto) U Epithel Cells (Auto) Urine Bacteria (Auto) Blood Type Antibody Screen Active Medications Generic Name Dose Route Start Last Admin Trade Name Freq PRN Reason Stop Dose Admin Albuterol Sulfate 2 puff 05/28/18 00:00 05/28/18 06:15 Ventolin Hfa Inhaler - IH Not Given Q6HPO [facility] Albuterol/Ipratropium 1 amp 05/27/18 21:23 Duoneb - NEB Q4H PRN SHORTNESS OF BREATH Amlodipine Besylate 10 mg 05/27/18 22:00 05/27/18 22:59 Norvasc - PO 10 mg HS [facility] Administration Heparin Sodium (Porcine) 5,000 unit 05/27/18 22:00 05/28/18 12:38 Heparin - SQ Not Given BID [facility] Hydralazine HCl 37.5 mg 05/28/18 10:00 05/28/18 12:58 Apresoline - PO 37.5 mg BID@1000,1800 [facility] Administration Insulin Aspart 1 vial 05/27/18 22:00 05/28/18 06:15 Novolog Vial Sliding Scale - SQ Not Given ACHS [facility] Protocol Isosorbide Dinitrate 20 mg 05/28/18 10:00 05/28/18 12:39 Isordil - PO Not Given BIDISORDIL [facility] Losartan Potassium 50 mg 05/28/18 10:00 05/28/18 12:58 Cozaar - PO 50 mg DAILY [facility] Administration Metoprolol Tartrate 50 mg 05/27/18 22:00 05/28/18 12:58 Lopressor - PO 50 mg BID [facility] Administration Metoprolol Tartrate 5 mg 05/28/18 12:48 Lopressor Injection - IVPB Q4H PRN HYPERTENSION Pantoprazole Sodium 20 mg 05/28/18 10:00 05/28/18 12:58 Protonix - PO 20 mg DAILY [facility] Administration Ranolazine 500 mg 05/27/18 22:00 05/28/18 12:58 Ranexa - PO 500 mg BID [facility] Administration Rosuvastatin Calcium 10 mg 05/27/18 22:00 05/27/18 22:59 Crestor - PO 10 mg HS [facility] Administration Fluticasone/Salmeterol 1 puff 05/27/18 22:00 05/28/18 12:38 Advair 100mcg/50mcg - IH Not Given BID [facility] ASSESSMENT/PLAN: 88 y/o female with PMH of ESRD (m/w/f) COPD, HTN, DM was sent in from dialysis after she was found to be very agitated/altered and combative. #AMS possibly 2/2 not completing dialysis however etiology unclear head CT negative; MRI ordered (if cannot be done then repeat CT in 24 hrs as per neuro) neuro on board U/A negative hholding lyrica as could give DOCUMENTATION LEAD effects ativan 2mg PRN for agitation psych consult placed avoid fluids as patient has elevated BNP and CKD #HTN since patient not tolerating PO HTN meds; will give lopressor 5 q4H with holding parameters (hr < 60, sys BP <120) monitor hemodynamics #ESRD patient did not completed HD yesterday Dr. Reis on board monitor electrolytes #DM ISS BGMS ACHS #COPD not currently in exacerbation c/w home inhalers F/E/N not on fluids monitor electrolytes diabetic diet Problem List - Problems (1) Altered mental status, unspecified Code(s): R41.82 - ALTERED MENTAL STATUS, UNSPECIFIED (2) ESRD (end stage renal disease) Code(s): N18.6 - END STAGE RENAL DISEASE Visit type - Emergency Visit Emergency Visit: Yes ED Registration Date: 05/27/18 Care time: The patient presented to the Emergency Department on the above date and was hospitalized for further evaluation of their emergent condition. - New Patient This patient is new to me today: Yes Date on this admission: 05/28/18 - Critical Care Critical Care patient: No
[2018-05-28] MEDS ORDERED: EPOETIN ALFA 2,000 UNIT/1 ML VIAL IVPUSH ONE (13:55)
[2018-05-28] MEDS ORDERED: SODIUM CHLORIDE 250 ML IV PRN (13:55)
--- NOTE | 2018-05-28 13:55 | PN ---
Progress Note, Physician History of Present Illness: Pt seen and examined at bedside. She remains confused. Her daughter is at bedside. - Current Medication List Current Medications: Active Medications Albuterol Sulfate (Ventolin Hfa Inhaler -) 2 puff IH Q6HPO [facility] Last Admin: 05/28/18 13:19 Dose: Not Given Albuterol/Ipratropium (Duoneb -) 1 amp NEB Q4H PRN PRN Reason: SHORTNESS OF BREATH Amlodipine Besylate (Norvasc -) 10 mg PO HS [facility] Last Admin: 05/27/18 22:59 Dose: 10 mg Heparin Sodium (Porcine) (Heparin -) 5,000 unit SQ BID [facility] Last Admin: 05/28/18 12:38 Dose: Not Given Hydralazine HCl (Apresoline -) 37.5 mg PO BID@1000,1800 [facility] Last Admin: 05/28/18 12:58 Dose: 37.5 mg Insulin Aspart (Novolog Vial Sliding Scale -) 1 vial SQ ACHS [facility]; Protocol Last Admin: 05/28/18 13:19 Dose: Not Given Isosorbide Dinitrate (Isordil -) 20 mg PO BIDISORDIL [facility] Last Admin: 05/28/18 12:39 Dose: Not Given Losartan Potassium (Cozaar -) 50 mg PO DAILY [facility] Last Admin: 05/28/18 12:58 Dose: 50 mg Metoprolol Tartrate (Lopressor -) 50 mg PO BID [facility] Last Admin: 05/28/18 12:58 Dose: 50 mg Metoprolol Tartrate (Lopressor Injection -) 5 mg IVPB Q4H PRN PRN Reason: HYPERTENSION Pantoprazole Sodium (Protonix -) 20 mg PO DAILY [facility] Last Admin: 05/28/18 12:58 Dose: 20 mg Ranolazine (Ranexa -) 500 mg PO BID [facility] Last Admin: 05/28/18 12:58 Dose: 500 mg Rosuvastatin Calcium (Crestor -) 10 mg PO HS [facility] Last Admin: 05/27/18 22:59 Dose: 10 mg Fluticasone/Salmeterol (Advair 100mcg/50mcg -) 1 puff IH BID [facility] Last Admin: 05/28/18 12:38 Dose: Not Given - Objective Vital Signs: Vital Signs Temperature 97.2 F L 03/28/19 13:03 Pulse Rate 97 H 05/28/18 13:03 Respiratory Rate 18 05/28/18 13:03 Blood Pressure 148/71 05/28/18 13:03 O2 Sat by Pulse Oximetry (%) 98 05/27/18 21:43 Constitutional: Yes: Calm Eyes: Yes: Conjunctiva Clear HENT: Yes: Atraumatic Cardiovascular: Yes: S1, S2 Respiratory: Yes: On Nasal O2 Gastrointestinal: Yes: Soft Genitourinary: Yes: Incontinence Musculoskeletal: Yes: WNL Edema: Yes Edema: LLE: Trace, RLE: Trace Integumentary: Yes: WNL Neurological: Yes: Confusion Labs: CBC, BMP 05/28/18 06:30 05/28/18 06:30 INR, PTT INR 0.87 (0.83-1.09) 05/28/18 06:30 Assessment/Plan Current Medications Generic Name Dose Route Start Last Admin Trade Name Freq PRN Reason Stop Dose Admin Albuterol Sulfate 2 puff 05/28/18 00:00 05/28/18 13:19 Ventolin Hfa Inhaler - IH Not Given Q6HPO [facility] Albuterol/Ipratropium 1 amp 05/27/18 21:23 Duoneb - NEB Q4H PRN SHORTNESS OF BREATH Amlodipine Besylate 10 mg 05/27/18 22:00 05/27/18 22:59 Norvasc - PO 10 mg HS [facility] Administration Heparin Sodium (Porcine) 5,000 unit 05/27/18 22:00 05/28/18 12:38 Heparin - SQ Not Given BID [facility] Hydralazine HCl 37.5 mg 05/28/18 10:00 05/28/18 12:58 Apresoline - PO 37.5 mg BID@1000,1800 [facility] Administration Insulin Aspart 1 vial 05/27/18 22:00 05/28/18 13:19 Novolog Vial Sliding Scale - SQ Not Given ACHS [facility] Protocol Isosorbide Dinitrate 20 mg 05/28/18 10:00 05/28/18 12:39 Isordil - PO Not Given BIDISORDIL [facility] Losartan Potassium 50 mg 05/28/18 10:00 05/28/18 12:58 Cozaar - PO 50 mg DAILY [facility] Administration Metoprolol Tartrate 50 mg 05/27/18 22:00 03/28/19 12:58 Lopressor - PO 50 mg BID [facility] Administration Metoprolol Tartrate 5 mg 05/28/18 12:48 Lopressor Injection - IVPB Q4H PRN HYPERTENSION Pantoprazole Sodium 20 mg 05/28/18 10:00 05/28/18 12:58 Protonix - PO 20 mg DAILY [facility] Administration Ranolazine 500 mg 05/27/18 22:00 05/28/18 12:58 Ranexa - PO 500 mg BID [facility] Administration Rosuvastatin Calcium 10 mg 05/27/18 22:00 05/27/18 22:59 Crestor - PO 10 mg HS [facility] Administration Fluticasone/Salmeterol 1 puff 05/27/18 22:00 05/28/18 12:38 Advair 100mcg/50mcg - IH Not Given BID [facility] Microbiology Laboratory Tests 05/27/18 16:13 Urine WBC (Auto) 1 Urine Bacteria (Auto) 0.8 Impression 1. ESRD 2. HTN 3. HLD 4. COPD 5. DM 6. pos heb b core 7. confusion with altered mental status 8. anemia Plan - neuro input appreciated, discussed with them today - follow cultures - will give ativan before HD, pt was on ativan at home - discussed plan with daughter at length
[2018-05-28] MEDS ORDERED: METOPROLOL TARTRATE 5 MG/5 ML VIAL IVPB PRN (14:15)
[2018-05-28] MEDS ORDERED: LORazepam 2 MG/ML SDV VIAL IVPUSH ONE (14:30)
--- NOTE | 2018-05-28 15:16 | EKG ---
Test Reason : Blood Pressure : / mmHG Vent. Rate : 093 BPM Atrial Rate : 093 BPM P-R Int : 190 ms QRS Dur : 090 ms QT Int : 356 ms P-R-T Axes : 081 082 089 degrees QTc Int : 442 ms NORMAL SINUS RHYTHM NORMAL ECG WHEN COMPARED WITH ECG OF 27-MAY-2018 17:38, NO SIGNIFICANT CHANGE WAS FOUND Confirmed by MADELINE ALDANA MD ([id number]) on 05/28/2018 3:16:24 PM Referred By: Confirmed By:MADELINE ALDANA MD
--- NOTE | 2018-05-28 17:10 | PN ---
Teaching Attending Note Name of Resident: Basia Stevens ATTENDING PHYSICIAN STATEMENT I saw and evaluated the patient. I reviewed the resident's note and discussed the case with the resident. I agree with the resident's findings and plan as documented. SUBJECTIVE: Patient is a agitated and confused. OBJECTIVE: Vital Signs Temperature 97.9 F 05/28/18 15:15 Pulse Rate 93 H 05/28/18 16:50 Respiratory Rate 18 05/28/18 16:50 Blood Pressure 135/83 05/28/18 16:50 O2 Sat by Pulse Oximetry (%) 98 05/27/18 21:43 GENERAL: The patient is awake, agitated; combative EYES:PEERLA: EOMI; no scleral icterus. NECK: no JVD: no lymphadenopathy LUNGS: decreased BS at the basis HEART: Regular rate and rhythm, S1, S2 without murmur, rub or gallop. ABDOMEN: Soft, NT, ND, normoactive bowel sounds, no guarding, no rebound, no hepatosplenomegaly, no masses. EXTREMITIES: 2+ pulses, warm, well-perfused, no edema. PSYCH: confused; agitated SKIN: Warm, dry, normal turgor, no rashes or lesions noted CBCD WBC 6.2 K/mm3 (4.0-10.0) 05/28/18 06:30 RBC 4.58 M/mm3 (3.60-5.2) 05/28/18 06:30 Hgb 12.6 GM/dL (10.7-15.3) 05/28/18 06:30 Hct 39.4 % (32.4-45.2) 05/28/18 06:30 MCV 86.0 fl (80-96) 05/28/18 06:30 MCHC 32.1 g/dl (32.0-36.0) 05/28/18 06:30 RDW 16.3 % (11.6-15.6) H 05/28/18 06:30 Plt Count 144 K/MM3 (134-434) 05/28/18 06:30 MPV 10.0 fl (7.5-11.1) 05/28/18 06:30 CMP Sodium 143 mmol/L (136-145) 05/28/18 06:30 Potassium 4.4 mmol/L (3.5-5.1) 05/28/18 06:30 Chloride 107 mmol/L (98-107) 05/28/18 06:30 Carbon Dioxide 27 mmol/L (21-32) 05/28/18 06:30 Anion Gap 9 MMOL/L (8-16) 05/28/18 06:30 BUN 43 mg/dL (7-18) H 05/28/18 06:30 Creatinine 7.5 mg/dL (0.55-1.3) H* 05/28/18 06:30 Creat Clearance w eGFR 5.12 (>60) 05/28/18 06:30 Random Glucose 85 mg/dL (74-106) 05/28/18 06:30 Calcium 8.7 mg/dL (8.5-10.1) 05/28/18 06:30 Total Bilirubin 0.8 mg/dL (0.2-1) 05/28/18 06:30 AST 19 U/L (15-37) 05/28/18 06:30 ALT 14 U/L (13-61) 05/28/18 06:30 Alkaline Phosphatase 71 U/L (45-117) 05/28/18 06:30 Total Protein 6.9 g/dl (6.4-8.2) 05/28/18 06:30 Albumin 3.9 g/dl (3.4-5.0) 05/28/18 06:30 CARDIAC ENZYMES Creatine Kinase 74 U/L (26-192) 05/27/18 13:59 Troponin I < 0.02 ng/ml (0.00-0.05) 05/27/18 13:59 Current Medications Generic Name Dose Route Start Last Admin Trade Name Shubham PRN Reason Stop Dose Admin Albuterol Sulfate 2 puff 05/28/18 00:00 05/28/18 13:19 Ventolin Hfa Inhaler - IH Not Given Q6HPO [facility] Albuterol/Ipratropium 1 amp 05/27/18 21:23 Duoneb - NEB Q4H PRN SHORTNESS OF BREATH Amlodipine Besylate 10 mg 05/27/18 22:00 05/27/18 22:59 Norvasc - PO 10 mg HS [facility] Administration Heparin Sodium (Porcine) 5,000 unit 05/27/18 22:00 05/28/18 12:38 Heparin - SQ Not Given BID [facility] Hydralazine HCl 37.5 mg 05/28/18 10:00 05/28/18 12:58 Apresoline - PO 37.5 mg BID@1000,1800 [facility] Administration Sodium Chloride 250 mls @ 3,000 mls/hr 05/28/18 13:55 Normal Saline - IV 05/29/18 13:55 PRN PRN Hypotension during Dialysis Insulin Aspart 1 vial 05/27/18 22:00 05/28/18 13:19 Novolog Vial Sliding Scale - SQ Not Given ACHS [facility] Protocol Isosorbide Dinitrate 20 mg 05/28/18 10:00 05/28/18 12:39 Isordil - PO Not Given BIDISORDIL [facility] Losartan Potassium 50 mg 05/28/18 10:00 05/28/18 12:58 Cozaar - PO 50 mg DAILY [facility] Administration Metoprolol Tartrate 50 mg 05/27/18 22:00 05/28/18 12:58 Lopressor - PO 50 mg BID [facility] Administration Metoprolol Tartrate 5 mg 05/28/18 14:15 Lopressor Injection - IVPB Q4H PRN HYPERTENSION Pantoprazole Sodium 20 mg 05/28/18 10:00 05/28/18 12:58 Protonix - PO 20 mg DAILY [facility] Administration Ranolazine 500 mg 05/27/18 22:00 05/28/18 12:58 Ranexa - PO 500 mg BID [facility] Administration Rosuvastatin Calcium 10 mg 05/27/18 22:00 05/27/18 22:59 Crestor - PO 10 mg HS [facility] Administration Fluticasone/Salmeterol 1 puff 05/27/18 22:00 05/28/18 12:38 Advair 100mcg/50mcg - IH Not Given BID [facility] Home Medications Medication Instructions Recorded Albuterol Sulfate Inhaler - 2 inh PO Q6H 05/27/18 [Ventolin Hfa Inhaler -] Amlodipine Besylate 10 mg PO HS 05/27/18 Isosorbide Mononitrate [Imdur -] 60 mg PO DAILY 05/27/18 Losartan Potassium 50 mg PO DAILY 05/27/18 Metoprolol Tartrate 50 mg PO BID 05/27/18 Pregabalin [Lyrica -] 75 mg PO DAILY 05/27/18 Rosuvastatin [Crestor -] 20 mg PO HS 05/27/18 Salmeterol/Fluticasone [Advair 1 inh PO BID 05/27/18 100Mcg/50Mcg -] Sevelamer Carbonate [Renvela] 800 mg PO TID 05/27/18 ASSESSMENT AND PLAN: Patient is an 88 y/o female with PMHx of ESRD (m/w/f) COPD, HTN, DM was sent in from dialysis after she was found to be very agitated/altered and combative. #AMS due metabolic encephalopathy #HTN continue with IV Lopressor since not taking her oral meds. #ESRD (MWF) irvin on board #T2DM sliding scale #COPD continue home meds. 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 consult _Lopressor IV since not taking her meds orally spitting up -continue home inhalers DVT Px: heparin sq
--- NOTE | 2018-05-28 18:09 | PN ---
Progress Note, Physician Chief Complaint: CALLED TO SEE PATIENT FOR ALTERER MENTAL STATUS TAKEN TO DIALYSIS, UNABLE TO COMPLETE FULL EXAMINATION. sHE IS AN 88YO FEMALE, CARED FOR BY DAUGHTER. sHE HAS RECENT ONSET OF CONFUSION REFUSING HER DIALYSIS YESTERDAY. cONSULT CALLED BY THERESE Orozco FROM [facility]. CT SCAN COMPLETE TODAY. hISTORY OF PRESENT ILLNESS INFORMATION PROVIDED BY ASHLEIGH Pierce. aPPARENTLY SHE SPIT OUT HER MEDICATIONS TODAY, ANXIOUS LEVEL . sHE WAS GIVEN ATIVAN 0.5 MG IV PUSH THAT IMEDIATLY CALMED HER PRIOR TO GOING TO dIALYSIS. sPEAKS CREOLE, DAUGHTER WAS RE-COUNTING NUMBERS IN [place] TO [place] TODAY TO HER SOOTHE HER. RECOMMEND KEEPING LORAZEPAM DOSE LOW EFFECTIVE DOSE, DUE TO COPD HISTORY. HAD ATIVAN AND BENADRLY FOR AGITATION IN ER. NO ALCHOL SUBSTANCE USE HISTORY. WILL COME BACK TO SEE PATIENT. - Current Medication List Current Medications: Active Medications Albuterol Sulfate (Ventolin Hfa Inhaler -) 2 puff IH Q6HPO [facility] Last Admin: 05/28/18 17:26 Dose: Not Given Albuterol/Ipratropium (Duoneb -) 1 amp NEB Q4H PRN PRN Reason: SHORTNESS OF BREATH Amlodipine Besylate (Norvasc -) 10 mg PO HS [facility] Last Admin: 05/27/18 22:59 Dose: 10 mg Heparin Sodium (Porcine) (Heparin -) 5,000 unit SQ BID [facility] Last Admin: 05/28/18 12:38 Dose: Not Given Hydralazine HCl (Apresoline -) 37.5 mg PO BID@1000,1800 [facility] Last Admin: 05/28/18 17:25 Dose: Not Given Sodium Chloride (Normal Saline -) 250 mls @ 3,000 mls/hr IV PRN PRN PRN Reason: Hypotension during Dialysis Stop: 05/29/18 13:55 Insulin Aspart (Novolog Vial Sliding Scale -) 1 vial SQ ACHS [facility]; Protocol Last Admin: 05/28/18 17:20 Dose: Not Given Isosorbide Mononitrate (Imdur -) 60 mg PO DAILY [facility] Losartan Potassium (Cozaar -) 50 mg PO DAILY [facility] Last Admin: 05/28/18 12:58 Dose: 50 mg Metoprolol Tartrate (Lopressor -) 50 mg PO BID [facility] Last Admin: 05/28/18 12:58 Dose: 50 mg Metoprolol Tartrate (Lopressor Injection -) 5 mg IVPB Q4H PRN PRN Reason: HYPERTENSION Pantoprazole Sodium (Protonix -) 20 mg PO DAILY [facility] Last Admin: 05/28/18 12:58 Dose: 20 mg Ranolazine (Ranexa -) 500 mg PO BID [facility] Last Admin: 05/28/18 12:58 Dose: 500 mg Rosuvastatin Calcium (Crestor -) 10 mg PO HS [facility] Last Admin: 05/27/18 22:59 Dose: 10 mg Fluticasone/Salmeterol (Advair 100mcg/50mcg -) 1 puff IH BID [facility] Last Admin: 05/28/18 12:38 Dose: Not Given - Objective Vital Signs: Vital Signs Temperature 97.9 F 05/28/18 15:15 Pulse Rate 93 H 05/28/18 16:50 Respiratory Rate 18 05/28/18 16:50 Blood Pressure 135/83 05/28/18 16:50 O2 Sat by Pulse Oximetry (%) 98 05/27/18 21:43 Labs: CBC, BMP 05/28/18 06:30 05/28/18 06:30 INR, PTT INR 0.87 (0.83-1.09) 05/28/18 06:30
[2018-05-28] MEDS: amLODIPine BESYLATE 10 MG TABLET (FP) PO SCH (21:26)
[2018-05-28] MEDS: ROSUVASTATIN CA 10 MG TABLET (FP) PO SCH (21:26)
[2018-05-29] MEDS: ALBUTEROL SO4 8 GM HFA INHALER IH SCH ×5 (00:33→23:21)
[2018-05-29] MEDS: INSULIN SLIDING SCALE (NOVOLOG) 1 VIAL SQ SCH ×4 (06:09→21:51)
[2018-05-29 07:17] LABS: HEMATOCRIT 42.7 % (32.4-45.2); HEMOGLOBIN 13.5 GM/dL (10.7-15.3); MCH 27.2 pg (25.7-33.7); MCHC 31.6 g/dl (32.0-36.0); MEAN CELL VOLUME 86.1 fl (80-96); MEAN PLT VOLUME 8.8 fl (7.5-11.1); PLATELET COUNT 99 K/MM3 (134-434); RBC 4.96 M/mm3 (3.60-5.2); RDW 16.2 % (11.6-15.6); WHITE BLOOD COUNT 7.8 K/mm3 (4.0-10.0)
[2018-05-29 07:43] LABS: ANION GAP 6 MMOL/L (8-16); BLOOD UREA NITROGEN 25 mg/dL (7-18); CALCIUM 8.6 mg/dL (8.5-10.1); CHLORIDE 101 mmol/L (98-107); CO2 32 mmol/L (21-32); CREATININE 5.1 mg/dL (0.55-1.3); GLUCOSE,RANDOM 74 mg/dL (74-106); PHOSPHOROUS 4.3 mg/dL (2.5-4.9); POTASSIUM 3.9 mmol/L (3.5-5.1); SODIUM 138 mmol/L (136-145)
[2018-05-29] MEDS ORDERED: PT OWN MED DRAWER 7, Y5N ONE (08:59)
--- NOTE | 2018-05-29 09:12 | PN ---
Progress Note (short form) - Note Progress Note: HPI: 88 year old woman with PMH of ESRD on hemodialysis (M/W/F), COPD (on home O2), HTN, NIDDM and diastolic dysfunction who was sent here from dialysis center because she was being combative during dialysis. Per daughter, patient has been confused and more altered over the last 5 days. She says her mom has been urinating less over the past week and had complaints of lower abdominal pain. The daughter did not report any other complaints or symptoms from the patient. THis AM agitated and speaking creole , as per nephro this is not her baseline -elevated lactic acid -CT HD No intracranial hemorrhage is seen. There is no extra-axial fluid collection. No discrete infarct is identified within the limitations of CT. In comparison to prior CT studies of 02/15/2018 and 05/03/2017 note is again made of minimal to mild focal hyperdense dural thickening along the right tentorial leaf medially. Status post small bilateral parietal craniotomies as on prior studies. MRI Impression. Limited study due to the motion artifacts. No evidence of hydrocephalus, midline shift, intra-axial, extra-axial fluid collections. The CSF spaces are age-appropriate. Supratentorial chronic white matter microangiopathic ischemic changes, gliosis. No restrictive changes are seen on the diffusion-weighted images. FU : this AM more alert and awake, though still maybe inattentive MRI BRAIN reviewed--no new stroke - Past Medical History Cardio/Vascular: Yes: HTN Pulmonary: Yes: COPD Gastrointestinal: Yes: GERD Renal/: Yes: Renal Inusuff, Hemodialysis, Renal Calculi (maybe- she had flank pain) Endocrine: Yes: Diabetes Mellitus - Past Surgical History Past Surgical History: Yes: AV Fistula/Graft - Alcohol/Substance Use Hx Alcohol Use: No - Smoking History Smoking history: Former smoker Have you smoked in the past 12 months: No Aproximately how many cigarettes per day: 0 Home Medications - Allergies Allergies/Adverse Reactions: Allergies Allergy/AdvReac Type Severity Reaction Status Date / Time egg AdvReac Vomiting Verified 05/27/18 12:48 - Home Medications Home Medications: Ambulatory Orders Albuterol Sulfate Inhaler - [Ventolin Hfa Inhaler -] 2 inh PO Q6H 05/27/18 Amlodipine Besylate 10 mg PO HS 05/27/18 Isosorbide Mononitrate [Imdur -] 60 mg PO DAILY 05/27/18 Losartan Potassium 50 mg PO DAILY 05/27/18 Metoprolol Tartrate 50 mg PO BID 05/27/18 Pregabalin [Lyrica -] 75 mg PO DAILY 05/27/18 Rosuvastatin [Crestor -] 20 mg PO HS 05/27/18 Salmeterol/Fluticasone [Advair 100Mcg/50Mcg -] 1 inh PO BID 05/27/18 Sevelamer Carbonate [Renvela] 800 mg PO TID 05/27/18 Physical Exam-Neuro Vital Signs: Vital Signs Temperature 98.0 F 05/29/18 06:27 Pulse Rate 80 05/29/18 06:27 Respiratory Rate 18 05/29/18 06:27 Blood Pressure 122/59 L 05/29/18 06:27 O2 Sat by Pulse Oximetry (%) 98 05/28/18 21:00 Labs: CBC, BMP 05/28/18 06:30 05/28/18 06:30 INR, PTT INR 0.87 (0.83-1.09) 05/28/18 06:30 Problem List - Problems (1) Altered mental status, unspecified Code(s): R41.82 - ALTERED MENTAL STATUS, UNSPECIFIED (2) ESRD (end stage renal disease) Code(s): N18.6 - END STAGE RENAL DISEASE (3) Epigastric abdominal pain Code(s): R10.13 - EPIGASTRIC PAIN Assessment/Plan 88 year old woman with PMH of ESRD on hemodialysis (M/W/F), COPD (on home O2), HTN, NIDDM and diastolic dysfunction who was sent here from dialysis center because she was being combative during dialysis. Per daughter, patient has been confused and more altered over the last 5 days. She says her mom has been urinating less over the past week and had complaints of lower abdominal pain. The daughter did not report any other complaints or symptoms from the patient. AP : suspect either new onset delirium , less likely encephalitis/meningitis perhaps underlying dementia as well she was unable to complete dialysis, so metabolic derangements compound this issue MS improving suggesting toxic/metabolic/infectious cause , closer to baseline MRI (-) acute pathology DR STINSON Problem List - Problems (1) Altered mental status, unspecified Code(s): R41.82 - ALTERED MENTAL STATUS, UNSPECIFIED (2) ESRD (end stage renal disease) Code(s): N18.6 - END STAGE RENAL DISEASE (3) Epigastric abdominal pain Code(s): R10.13 - EPIGASTRIC PAIN
--- NOTE | 2018-05-29 09:19 | PN ---
Physical Exam: SUBJECTIVE: Patient seen and examined at bedside- no acute events overnight; patient is more awake/alert today and is no longer combative and is off restraints. she denies any complaints OBJECTIVE: Vital Signs Period Temp Pulse Resp BP Sys/Betancourt Pulse Ox Last 24 Hr 97.2 F-98.0 F 80-97 18-18 116-171/59-102 98 GENERAL: The patient is awake, alert, orienetd to self/time/ EYES: PEERLA; EOMI; no scleral icterus NECK: no JVD; no lymphadenopathy LUNGS:CTA B/L; no rales, rhonchi or wheezing HEART: Regular rate and rhythm, S1, S2 without murmur, rub or gallop. ABDOMEN: Soft, nontender, nondistended, normoactive bowel sounds, no guarding, no rebound, no hepatosplenomegaly, no masses. EXTREMITIES: 2+ pulses, warm, well-perfused, no edema. PSYCH: no longer agitated, no longer wearing restraints . SKIN: Warm, dry, normal turgor, no rashes or lesions noted Laboratory Results - last 24 hr 05/28/18 05/28/18 05/28/18 06:30 06:30 06:30 WBC RBC Hgb Hct MCV MCH MCHC RDW Plt Count MPV Neutrophils % (Manual) 69.5 Band Neutrophils % 0.0 Lymphocytes % (Manual) 16.2 D Monocytes % (Manual) 7 Eosinophils % (Manual) 0.9 Basophils % (Manual) 1.0 Myelocytes % (Man) 0 Promyelocytes % (Man) 0 Blast Cells % (Manual) 0 Metamyelocytes 0 Hypochromia 0 Platelet Estimate Normal Polychromasia 0 Poikilocytosis 1+ Anisocytosis 1+ Microcytosis 1+ Macrocytosis 0 Target Cells 1+ ESR 7 Sodium 143 Potassium 4.4 Chloride 107 Carbon Dioxide 27 Anion Gap 9 BUN 43 H Creatinine 7.5 H* Creat Clearance w eGFR 5.12 POC Glucometer Random Glucose 85 Calcium 8.7 Phosphorus 3.6 Magnesium 2.0 Total Bilirubin 0.8 AST 19 ALT 14 Alkaline Phosphatase 71 C-Reactive Protein < 0.3 B-Natriuretic Peptide 2868.0 H Total Protein 6.9 Albumin 3.9 Vitamin B12 531 Serum Folate 13 TSH 1.17 03/28/19 03/28/19 03/29/19 13:16 21:20 06:08 WBC RBC Hgb Hct MCV MCH MCHC RDW Plt Count MPV Neutrophils % (Manual) Band Neutrophils % Lymphocytes % (Manual) Monocytes % (Manual) Eosinophils % (Manual) Basophils % (Manual) Myelocytes % (Man) Promyelocytes % (Man) Blast Cells % (Manual) Metamyelocytes Hypochromia Platelet Estimate Polychromasia Poikilocytosis Anisocytosis Microcytosis Macrocytosis Target Cells ESR Sodium Potassium Chloride Carbon Dioxide Anion Gap BUN Creatinine Creat Clearance w eGFR POC Glucometer 129 86 80 Random Glucose Calcium Phosphorus Magnesium Total Bilirubin AST ALT Alkaline Phosphatase C-Reactive Protein B-Natriuretic Peptide Total Protein Albumin Vitamin B12 Serum Folate TSH 05/29/18 05/29/18 06:30 06:30 WBC 7.8 RBC 4.96 Hgb 13.5 Hct 42.7 MCV 86.1 MCH 27.2 MCHC 31.6 L RDW 16.2 H Plt Count 99 L D MPV 8.8 D Neutrophils % (Manual) Band Neutrophils % Lymphocytes % (Manual) Monocytes % (Manual) Eosinophils % (Manual) Basophils % (Manual) Myelocytes % (Man) Promyelocytes % (Man) Blast Cells % (Manual) Metamyelocytes Hypochromia Platelet Estimate Polychromasia Poikilocytosis Anisocytosis Microcytosis Macrocytosis Target Cells ESR Sodium 138 Potassium 3.9 Chloride 101 Carbon Dioxide 32 Anion Gap 6 L BUN 25 H Creatinine 5.1 H Creat Clearance w eGFR 7.98 POC Glucometer Random Glucose 74 Calcium 8.6 Phosphorus 4.3 Magnesium 2.0 Total Bilirubin AST ALT Alkaline Phosphatase C-Reactive Protein B-Natriuretic Peptide Total Protein Albumin Vitamin B12 Serum Folate TSH Active Medications Generic Name Dose Route Start Last Admin Trade Name Freq PRN Reason Stop Dose Admin Albuterol Sulfate 2 puff 05/28/18 00:00 05/29/18 06:11 Ventolin Hfa Inhaler - IH Not Given Q6HPO [facility] Albuterol/Ipratropium 1 amp 05/27/18 21:23 Duoneb - NEB Q4H PRN SHORTNESS OF BREATH Amlodipine Besylate 10 mg 05/27/18 22:00 05/28/18 21:26 Norvasc - PO 10 mg HS [facility] Administration Heparin Sodium (Porcine) 5,000 unit 05/27/18 22:00 05/28/18 21:27 Heparin - SQ 5,000 unit BID [facility] Administration Hydralazine HCl 37.5 mg 05/28/18 10:00 05/28/18 17:25 Apresoline - PO Not Given BID@1000,1800 [facility] Sodium Chloride 250 mls @ 3,000 mls/hr 05/28/18 13:55 Normal Saline - IV 05/29/18 13:55 PRN PRN Hypotension during Dialysis Insulin Aspart 1 vial 05/27/18 22:00 05/29/18 06:09 Novolog Vial Sliding Scale - SQ Not Given ACHS [facility] Protocol Isosorbide Mononitrate 60 mg 05/29/18 10:00 Imdur - PO DAILY [facility] Losartan Potassium 50 mg 05/28/18 10:00 05/28/18 12:58 Cozaar - PO 50 mg DAILY [facility] Administration Metoprolol Tartrate 50 mg 05/27/18 22:00 05/28/18 21:27 Lopressor - PO 50 mg BID [facility] Administration Metoprolol Tartrate 5 mg 05/28/18 14:15 Lopressor Injection - IVPB Q4H PRN HYPERTENSION Pantoprazole Sodium 20 mg 05/28/18 10:00 05/28/18 12:58 Protonix - PO 20 mg DAILY [facility] Administration Ranolazine 500 mg 05/27/18 22:00 05/28/18 21:27 Ranexa - PO 500 mg BID [facility] Administration Rosuvastatin Calcium 10 mg 05/27/18 22:00 05/28/18 21:26 Crestor - PO 10 mg HS [facility] Administration Fluticasone/Salmeterol 1 puff 05/27/18 22:00 05/28/18 21:26 Advair 100mcg/50mcg - IH 1 puff BID [facility] Administration ASSESSMENT/PLAN: 88 y/o female with PMH of ESRD (m/w/f) COPD, HTN, DM was sent in from dialysis after she was found to be very agitated/altered and combative. #AMS patients mental status has improved f/u MRI report d/c lyrica monitor mental status #HTN since patient not tolerating PO HTN meds; will give lopressor 5 q4H with holding parameters (hr < 60, sys BP <120) monitor hemodynamics #ESRD pateint got HD yesterday; will get again tomorrow Dr. Samarneh on board monitor electrolytes #DM ISS BGMS ACHS #COPD not currently in exacerbation c/w home inhalers F/E/N not on fluids monitor electrolytes diabetic diet Problem List - Problems (1) Altered mental status, unspecified Code(s): R41.82 - ALTERED MENTAL STATUS, UNSPECIFIED (2) ESRD (end stage renal disease) Code(s): N18.6 - END STAGE RENAL DISEASE Visit type - Emergency Visit Emergency Visit: Yes ED Registration Date: 05/27/18 Care time: The patient presented to the Emergency Department on the above date and was hospitalized for further evaluation of their emergent condition. - New Patient This patient is new to me today: No - Critical Care Critical Care patient: No
[2018-05-29] MEDS: PANTOPRAZOLE 20 MG TABLET (FP) PO SCH (09:36)
[2018-05-29] MEDS: LOSARTAN POTASSIUM 50 MG TABLET (FP) PO SCH (09:36)
[2018-05-29] MEDS: METOPROLOL TARTRATE 50 MG TABLET (FP) PO SCH ×2 (09:36→21:52)
[2018-05-29] MEDS: ISOSORBIDE MONONITRATE 60 MG TAB.SR.24H (FP) PO SCH (09:36)
[2018-05-29] MEDS ORDERED: LORazepam 2 MG/ML SDV VIAL IVPUSH ONE (09:38)
[2018-05-29] MEDS: RANOLAZINE E.R. 500 MG TABLET (FP) PO SCH ×2 (09:38→21:52)
[2018-05-29] MEDS: hydrALAZINE HCL 25 MG TABLET (FP) PO SCH ×2 (09:38→18:12)
[2018-05-29] MEDS: HEPARIN NA (PORCINE) 5,000 UNITS/ML 1ML VIAL SQ SCH ×2 (09:38→21:52)
[2018-05-29] MEDS: FLUTICASONE/SALMETEROL 100 MCG/50 MCG DISKUS IH SCH ×2 (09:44→21:52)
[2018-05-29] MEDS: ALBUTEROL SO4 2.5/IPRATROPIUM 0.5 INH SOL 3 ML VIAL.NEB. NEB PRN (13:50)
[2018-05-29] MEDS: ACETAMINOPHEN 325 MG TABLET (FP) PO PRN (14:15)
[2018-05-29] MEDS ORDERED: SODIUM CHLORIDE 250 ML IV PRN (15:21)
--- NOTE | 2018-05-29 15:21 | PN ---
Progress Note, Physician History of Present Illness: Pt seen and examined at bedside. She is calmer but still confused. She denies shortness of breath. - Current Medication List Current Medications: Active Medications Acetaminophen (Tylenol -) 650 mg PO Q6H PRN PRN Reason: Fever Or Pain Last Admin: 05/29/18 14:15 Dose: 650 mg Albuterol Sulfate (Ventolin Hfa Inhaler -) 2 puff IH Q6HPO [facility] Last Admin: 05/29/18 14:14 Dose: Not Given Albuterol/Ipratropium (Duoneb -) 1 amp NEB Q4H PRN PRN Reason: SHORTNESS OF BREATH Amlodipine Besylate (Norvasc -) 10 mg PO [facility] Last Admin: 05/28/18 21:26 Dose: 10 mg Heparin Sodium (Porcine) (Heparin -) 5,000 unit SQ BID [facility] Last Admin: 05/29/18 09:38 Dose: 5,000 unit Hydralazine HCl (Apresoline -) 37.5 mg PO BID@1000,1800 [facility] Last Admin: 05/29/18 09:38 Dose: 37.5 mg Insulin Aspart (Novolog Vial Sliding Scale -) 1 vial SQ [facility]; Protocol Last Admin: 05/29/18 11:24 Dose: Not Given Isosorbide Mononitrate (Imdur -) 60 mg PO DAILY [facility] Last Admin: 05/29/18 09:36 Dose: 60 mg Lorazepam (Ativan Injection -) 1 mg IVPUSH ONCE ONE Stop: 05/29/18 09:39 Losartan Potassium (Cozaar -) 50 mg PO DAILY [facility] Last Admin: 05/29/18 09:36 Dose: 50 mg Metoprolol Tartrate (Lopressor -) 50 mg PO BID [facility] Last Admin: 05/29/18 09:36 Dose: 50 mg Metoprolol Tartrate (Lopressor Injection -) 5 mg IVPB Q4H PRN PRN Reason: HYPERTENSION Pantoprazole Sodium (Protonix -) 20 mg PO DAILY [facility] Last Admin: 05/29/18 09:36 Dose: 20 mg Ranolazine (Ranexa -) 500 mg PO BID [facility] Last Admin: 05/29/18 09:38 Dose: 500 mg Rosuvastatin Calcium (Crestor -) 10 mg PO [facility] Last Admin: 05/28/18 21:26 Dose: 10 mg Fluticasone/Salmeterol (Advair 100mcg/50mcg -) 1 puff IH BID [facility] Last Admin: 05/29/18 09:44 Dose: Not Given - Objective Vital Signs: Vital Signs Temperature 100.6 F H 05/29/18 14:04 Pulse Rate 79 05/29/18 14:04 Respiratory Rate 20 05/29/18 14:04 Blood Pressure 119/51 L 05/29/18 14:04 O2 Sat by Pulse Oximetry (%) 97 05/29/18 09:00 Constitutional: Yes: Calm Eyes: Yes: Conjunctiva Clear HENT: Yes: Atraumatic Cardiovascular: Yes: S1, S2 Respiratory: Yes: CTA Bilaterally Gastrointestinal: Yes: Soft Genitourinary: Yes: WNL Musculoskeletal: Yes: WNL Edema: No Neurological: Yes: Confusion Labs: CBC, BMP 05/29/18 06:30 05/29/18 06:30 INR, PTT INR 0.87 (0.83-1.09) 05/28/18 06:30 Assessment/Plan Current Medications Generic Name Dose Route Start Last Admin Trade Name Freq PRN Reason Stop Dose Admin Acetaminophen 650 mg 05/29/18 13:45 05/29/18 14:15 Tylenol - PO 650 mg Q6H PRN Administration Fever Or Pain Albuterol Sulfate 2 puff 05/28/18 00:00 05/29/18 14:14 Ventolin Hfa Inhaler - IH Not Given Q6HPO [facility] Albuterol/Ipratropium 1 amp 05/27/18 21:23 Duoneb - NEB Q4H PRN SHORTNESS OF BREATH Amlodipine Besylate 10 mg 05/27/18 22:00 05/28/18 21:26 Norvasc - PO 10 mg HS [facility] Administration Heparin Sodium (Porcine) 5,000 unit 05/27/18 22:00 05/29/18 09:38 Heparin - SQ 5,000 unit BID [facility] Administration Hydralazine HCl 37.5 mg 05/28/18 10:00 05/29/18 09:38 Apresoline - PO 37.5 mg BID@1000,1800 [facility] Administration Insulin Aspart 1 vial 05/27/18 22:00 05/29/18 11:24 Novolog Vial Sliding Scale - SQ Not Given ACHS [facility] Protocol Isosorbide Mononitrate 60 mg 05/29/18 10:00 05/29/18 09:36 Imdur - PO 60 mg DAILY [facility] Administration Lorazepam 1 mg 05/29/18 09:38 Ativan Injection - IVPUSH 05/29/18 09:39 ONCE ONE Losartan Potassium 50 mg 05/28/18 10:00 05/29/18 09:36 Cozaar - PO 50 mg DAILY [facility] Administration Metoprolol Tartrate 50 mg 05/27/18 22:00 05/29/18 09:36 Lopressor - PO 50 mg BID [facility] Administration Metoprolol Tartrate 5 mg 05/28/18 14:15 Lopressor Injection - IVPB Q4H PRN HYPERTENSION Pantoprazole Sodium 20 mg 05/28/18 10:00 05/29/18 09:36 Protonix - PO 20 mg DAILY [facility] Administration Ranolazine 500 mg 05/27/18 22:00 05/29/18 09:38 Ranexa - PO 500 mg BID [facility] Administration Rosuvastatin Calcium 10 mg 05/27/18 22:00 05/28/18 21:26 Crestor - PO 10 mg HS [facility] Administration Fluticasone/Salmeterol 1 puff 05/27/18 22:00 05/29/18 09:44 Advair 100mcg/50mcg - IH Not Given BID [facility] Microbiology 05/27/18 16:13 Urine - Urine - Catheterized Urine Culture - Final NO GROWTH OBTAINED 05/27/18 13:59 Blood - Peripheral Venous Blood Culture - Preliminary NO GROWTH OBTAINED AFTER 48 HOURS, INCUBATION TO CONTINUE FOR 3 DAYS. 05/27/18 13:59 Blood - Peripheral Venous Blood Culture - Preliminary NO GROWTH OBTAINED AFTER 48 HOURS, INCUBATION TO CONTINUE FOR 3 DAYS. Impression 1. ESRD 2. HTN 3. HLD 4. COPD 5. DM 6. pos heb b core 7. confusion with altered mental status 8. anemia Plan - will order HD for tomorrow, pt is off schedule, should be on MWF starting next week - cultures are negative so far - PO antivan tomorrow before HD - discussed plan with daughter
--- NOTE | 2018-05-29 18:41 | PN ---
Teaching Attending Note Name of Resident: Basia Stevens ATTENDING PHYSICIAN STATEMENT I saw and evaluated the patient. I reviewed the resident's note and discussed the case with the resident. I agree with the resident's findings and plan as documented. SUBJECTIVE: Patient is feeling better today, back to her norm. Not agitated or combative. OBJECTIVE: Vital Signs Temperature 99.7 F H 05/29/18 15:39 Pulse Rate 79 05/29/18 14:04 Respiratory Rate 20 05/29/18 14:04 Blood Pressure 119/51 L 05/29/18 14:04 O2 Sat by Pulse Oximetry (%) 97 05/29/18 09:00 GENERAL: The patient is awake, agitated; combative EYES:PEERLA: EOMI; no scleral icterus. NECK: no JVD: no lymphadenopathy LUNGS: decreased BS at the basis HEART: Regular rate and rhythm, S1, S2 without murmur, rub or gallop. ABDOMEN: Soft, NT, ND, normoactive bowel sounds, no guarding, no rebound, no hepatosplenomegaly, no masses. EXTREMITIES: 2+ pulses, warm, well-perfused, no edema. PSYCH: back to her baseline SKIN: Warm, dry, normal turgor, no rashes or lesions noted CBCD WBC 7.8 K/mm3 (4.0-10.0) 05/29/18 06:30 RBC 4.96 M/mm3 (3.60-5.2) 05/29/18 06:30 Hgb 13.5 GM/dL (10.7-15.3) 05/29/18 06:30 Hct 42.7 % (32.4-45.2) 05/29/18 06:30 MCV 86.1 fl (80-96) 05/29/18 06:30 MCHC 31.6 g/dl (32.0-36.0) L 05/29/18 06:30 RDW 16.2 % (11.6-15.6) H 05/29/18 06:30 Plt Count 99 K/MM3 (134-434) L D 05/29/18 06:30 MPV 8.8 fl (7.5-11.1) D 05/29/18 06:30 CMP Sodium 138 mmol/L (136-145) 05/29/18 06:30 Potassium 3.9 mmol/L (3.5-5.1) 05/29/18 06:30 Chloride 101 mmol/L (98-107) 05/29/18 06:30 Carbon Dioxide 32 mmol/L (21-32) 05/29/18 06:30 Anion Gap 6 MMOL/L (8-16) L 05/29/18 06:30 BUN 25 mg/dL (7-18) H 05/29/18 06:30 Creatinine 5.1 mg/dL (0.55-1.3) H 05/29/18 06:30 Creat Clearance w eGFR 7.98 (>60) 05/29/18 06:30 Random Glucose 74 mg/dL (74-106) 05/29/18 06:30 Calcium 8.6 mg/dL (8.5-10.1) 05/29/18 06:30 Total Bilirubin 0.8 mg/dL (0.2-1) 05/28/18 06:30 AST 19 U/L (15-37) 05/28/18 06:30 ALT 14 U/L (13-61) 05/28/18 06:30 Alkaline Phosphatase 71 U/L (45-117) 05/28/18 06:30 Total Protein 6.9 g/dl (6.4-8.2) 05/28/18 06:30 Albumin 3.9 g/dl (3.4-5.0) 05/28/18 06:30 CARDIAC ENZYMES Creatine Kinase 74 U/L (26-192) 05/27/18 13:59 Troponin I < 0.02 ng/ml (0.00-0.05) 05/27/18 13:59 Current Medications Generic Name Dose Route Start Last Admin Trade Name Freq PRN Reason Stop Dose Admin Acetaminophen 650 mg 05/29/18 13:45 05/29/18 14:15 Tylenol - PO 650 mg Q6H PRN Administration Fever Or Pain Albuterol Sulfate 2 puff 05/28/18 00:00 05/29/18 18:33 Ventolin Hfa Inhaler - IH 2 puff Q6HPO [facility] Administration Albuterol/Ipratropium 1 amp 05/27/18 21:23 05/29/18 13:50 Duoneb - NEB 1 amp Q4H PRN Administration SHORTNESS OF BREATH Amlodipine Besylate 10 mg 05/27/18 22:00 05/28/18 21:26 Norvasc - PO 10 mg HS [facility] Administration Heparin Sodium (Porcine) 5,000 unit 05/27/18 22:00 05/29/18 09:38 Heparin - SQ 5,000 unit BID [facility] Administration Hydralazine HCl 37.5 mg 05/28/18 10:00 05/29/18 18:12 Apresoline - PO Not Given BID@1000,1800 [facility] Sodium Chloride 250 mls @ 3,000 mls/hr 05/29/18 15:21 Normal Saline - IV 05/30/18 15:21 PRN PRN Hypotension during Dialysis Insulin Aspart 1 vial 05/27/18 22:00 05/29/18 17:48 Novolog Vial Sliding Scale - SQ Not Given ACHS [facility] Protocol Isosorbide Mononitrate 60 mg 05/29/18 10:00 05/29/18 09:36 Imdur - PO 60 mg DAILY [facility] Administration Lorazepam 1 mg 05/29/18 09:38 Ativan Injection - IVPUSH 05/29/18 09:39 ONCE ONE Lorazepam 0.5 mg 05/30/18 10:00 Ativan - PO DAILY PRN ANXIETY BEFORE DIALYSIS Losartan Potassium 50 mg 05/28/18 10:00 05/29/18 09:36 Cozaar - PO 50 mg DAILY [facility] Administration Metoprolol Tartrate 50 mg 05/27/18 22:00 05/29/18 09:36 Lopressor - PO 50 mg BID [facility] Administration Metoprolol Tartrate 5 mg 05/28/18 14:15 Lopressor Injection - IVPB Q4H PRN HYPERTENSION Pantoprazole Sodium 20 mg 05/28/18 10:00 05/29/18 09:36 Protonix - PO 20 mg DAILY [facility] Administration Ranolazine 500 mg 05/27/18 22:00 05/29/18 09:38 Ranexa - PO 500 mg BID [facility] Administration Rosuvastatin Calcium 10 mg 05/27/18 22:00 05/28/18 21:26 Crestor - PO 10 mg HS [facility] Administration Fluticasone/Salmeterol 1 puff 05/27/18 22:00 05/29/18 09:44 Advair 100mcg/50mcg - IH Not Given BID [facility] Home Medications Medication Instructions Recorded Albuterol Sulfate Inhaler - 2 inh PO Q6H 05/27/18 [Ventolin HFA Inhaler -] Amlodipine Besylate 10 mg PO HS 05/27/18 Isosorbide Mononitrate [Imdur -] 60 mg PO DAILY 05/27/18 Losartan Potassium 50 mg PO DAILY 05/27/18 Metoprolol Tartrate 50 mg PO BID 05/27/18 Rosuvastatin [Crestor -] 20 mg PO HS 05/27/18 Salmeterol/Fluticasone [Advair 1 inh PO BID 05/27/18 100Mcg/50Mcg -] Sevelamer Carbonate [Renvela -] 800 mg PO TID 05/27/18 MRI: slight dural thickening/hyperdensity over R tentorium --stable; no acute finding ASSESSMENT AND PLAN: Patient is an 88 y/o female with PMHx of ESRD (m/w/f) COPD, HTN, DM was sent in from dialysis after she was found to be very agitated/altered and combative. #AMS due metabolic encephalopathy: back to her norm. now #HTN continue with IV Lopressor , will switch back to her po meds. #ESRD (MWF) irvin on board #T2DM sliding scale #COPD continue home meds. -neuro consult appreciated, hold lyrica for possible HEEL SCOURER effect -follow MRi of the head (if cannot be done then repeat CT in 24 hrs as per neuro ) -ativan as per neuro prn -avoid fluids -nephro consulted for esrd MWF -[facility] consult appreciated -continue home inhalers DVT Px: heparin sq can be discharged home, post dialysis in am
[2018-05-29] MEDS: amLODIPine BESYLATE 10 MG TABLET (FP) PO SCH (21:52)
[2018-05-29] MEDS: ROSUVASTATIN CA 10 MG TABLET (FP) PO SCH (21:52)
[2018-05-30] MEDS: ACETAMINOPHEN 325 MG TABLET (FP) PO PRN ×2 (01:32→10:49)
[2018-05-30] MEDS: INSULIN SLIDING SCALE (NOVOLOG) 1 VIAL SQ SCH ×4 (06:42→21:55)
[2018-05-30] MEDS: ALBUTEROL SO4 8 GM HFA INHALER IH SCH ×3 (06:42→18:24)
[2018-05-30 07:07] LABS: HEMATOCRIT 36.1 % (32.4-45.2); HEMOGLOBIN 11.8 GM/dL (10.7-15.3); MCHC 32.7 g/dl (32.0-36.0); MEAN CELL VOLUME 85.6 fl (80-96); MEAN PLT VOLUME 9.9 fl (7.5-11.1); PLATELET COUNT 112 K/MM3 (134-434); RBC 4.21 M/mm3 (3.60-5.2); RDW 16.2 % (11.6-15.6); WHITE BLOOD COUNT 6.6 K/mm3 (4.0-10.0)
[2018-05-30 07:28] LABS: ANION GAP 8 MMOL/L (8-16); BLOOD UREA NITROGEN 40 mg/dL (7-18); CALCIUM 7.8 mg/dL (8.5-10.1); CHLORIDE 103 mmol/L (98-107); CO2 30 mmol/L (21-32); CREATININE 7.1 mg/dL (0.55-1.3); GLUCOSE,RANDOM 88 mg/dL (74-106); MAGNESIUM 1.7 mg/dL (1.8-2.4); POTASSIUM 4.5 mmol/L (3.5-5.1); SODIUM 141 mmol/L (136-145)
--- NOTE | 2018-05-30 08:24 | PN ---
Progress Note (short form) - Note Progress Note: RENAL Pt is awake and alert comfortable smiling Last Vital Signs Temp Pulse Resp BP Pulse Ox 98.9 F 84 20 136/59 L 97 05/30/18 05:35 05/30/18 05:35 05/30/18 05:35 05/30/18 05:35 05/29/18 21:00 lungs has end expiratory wheezes and basialr crackles cvs s1s2 rr abd soft ext no edema, left avf +thrill neuro awake and alert CBC, BMP 05/30/18 05:30 05/30/18 05:30 Current Medications Generic Name Dose Route Start Last Admin Trade Name Freq PRN Reason Stop Dose Admin Acetaminophen 650 mg 05/29/18 13:45 05/30/18 01:32 Tylenol - PO 650 mg Q6H PRN Administration Fever Or Pain Albuterol Sulfate 2 puff 05/28/18 00:00 05/30/18 06:42 Ventolin Hfa Inhaler - IH Not Given Q6HPO [facility] Albuterol/Ipratropium 1 amp 05/27/18 21:23 05/29/18 13:50 Duoneb - NEB 1 amp Q4H PRN Administration SHORTNESS OF BREATH Amlodipine Besylate 10 mg 05/27/18 22:00 05/29/18 21:52 Norvasc - PO 10 mg HS [facility] Administration Heparin Sodium (Porcine) 5,000 unit 05/27/18 22:00 05/29/18 21:52 Heparin - SQ 5,000 unit BID [facility] Administration Hydralazine HCl 37.5 mg 05/28/18 10:00 05/29/18 18:12 Apresoline - PO Not Given BID@1000,1800 [facility] Sodium Chloride 250 mls @ 3,000 mls/hr 05/29/18 15:21 Normal Saline - IV 05/30/18 15:21 PRN PRN Hypotension during Dialysis Insulin Aspart 1 vial 05/27/18 22:00 05/30/18 06:42 Novolog Vial Sliding Scale - SQ Not Given ACHS [facility] Protocol Isosorbide Mononitrate 60 mg 05/29/18 10:00 05/29/18 09:36 Imdur - PO 60 mg DAILY [facility] Administration Lorazepam 1 mg 05/29/18 09:38 Ativan Injection - IVPUSH 05/29/18 09:39 ONCE ONE Lorazepam 0.5 mg 05/30/18 10:00 Ativan - PO DAILY PRN ANXIETY BEFORE DIALYSIS Losartan Potassium 50 mg 05/28/18 10:00 05/29/18 09:36 Cozaar - PO 50 mg DAILY [facility] Administration Metoprolol Tartrate 50 mg 05/27/18 22:00 05/29/18 21:52 Lopressor - PO 50 mg BID [facility] Administration Metoprolol Tartrate 5 mg 05/28/18 14:15 Lopressor Injection - IVPB Q4H PRN HYPERTENSION Pantoprazole Sodium 20 mg 05/28/18 10:00 05/29/18 09:36 Protonix - PO 20 mg DAILY [facility] Administration Ranolazine 500 mg 05/27/18 22:00 05/29/18 21:52 Ranexa - PO 500 mg BID [facility] Administration Rosuvastatin Calcium 10 mg 05/27/18 22:00 05/29/18 21:52 Crestor - PO 10 mg HS [facility] Administration Fluticasone/Salmeterol 1 puff 05/27/18 22:00 05/29/18 21:52 Advair 100mcg/50mcg - IH Not Given BID [facility] Impression 1. ESRD 2. HTN 3. HLD 4. COPD 5. DM 6. pos heb b core 7. confusion with altered mental status 8. anemia and thrombocytopenia Plan for HD today, daughter to be present as a calming effect continue inhaled steroids MV
[2018-05-30] MEDS: hydrALAZINE HCL 25 MG TABLET (FP) PO SCH ×2 (09:55→18:20)
[2018-05-30] MEDS ORDERED: LORazepam 0.5 MG TABLET PO PRN (10:00)
[2018-05-30 10:09] LABS: HBSAG SCREEN Negative (Negative); HEP A AB, IGM Negative (Negative); HEP B CORE AB, TOT Positive (Negative)
[2018-05-30] MEDS ORDERED: PT OWN MED DRAWER 7, Y5N ONE (12:40)
[2018-05-30] MEDS: HEPARIN NA (PORCINE) 5,000 UNITS/ML 1ML VIAL SQ SCH ×2 (12:52→21:54)
[2018-05-30] MEDS: PANTOPRAZOLE 20 MG TABLET (FP) PO SCH (12:52)
[2018-05-30] MEDS: METOPROLOL TARTRATE 50 MG TABLET (FP) PO SCH ×2 (12:52→21:54)
[2018-05-30] MEDS: RANOLAZINE E.R. 500 MG TABLET (FP) PO SCH ×2 (12:52→21:55)
[2018-05-30] MEDS: LOSARTAN POTASSIUM 50 MG TABLET (FP) PO SCH (12:53)
[2018-05-30] MEDS: FLUTICASONE/SALMETEROL 100 MCG/50 MCG DISKUS IH SCH ×2 (12:56→21:53)
[2018-05-30] MEDS: ISOSORBIDE MONONITRATE 60 MG TAB.SR.24H (FP) PO SCH (12:56)
[2018-05-30] MEDS: ALBUTEROL SO4 2.5/IPRATROPIUM 0.5 INH SOL 3 ML VIAL.NEB. NEB PRN ×2 (16:20→21:30)
--- NOTE | 2018-05-30 19:44 | PN ---
Progress Note (short form) - Note Progress Note: Patient is comfortable with no acute distress, comfortable. less agitated today. Vital Signs Temperature 98.6 F 05/30/18 14:58 Pulse Rate 94 H 05/30/18 14:58 Respiratory Rate 20 05/30/18 14:58 Blood Pressure 124/54 L 05/30/18 14:58 O2 Sat by Pulse Oximetry (%) 100 05/30/18 13:05 GENERAL: The patient is awake, less agitated EYES:PEERLA: EOMI; no scleral icterus. NECK: no JVD: no lymphadenopathy LUNGS: decreased BS at the basis HEART: Regular rate and rhythm, S1, S2 without murmur, rub or gallop. ABDOMEN: Soft, NT, ND, normoactive bowel sounds, no guarding, no rebound, no hepatosplenomegaly, no masses. EXTREMITIES: 2+ pulses, warm, well-perfused, no edema. PSYCH: back to her baseline SKIN: Warm, dry, normal turgor, no rashes or lesions noted CBCD WBC 6.6 K/mm3 (4.0-10.0) 05/30/18 05:30 RBC 4.21 M/mm3 (3.60-5.2) 05/30/18 05:30 Hgb 11.8 GM/dL (10.7-15.3) 05/30/18 05:30 Hct 36.1 % (32.4-45.2) D 05/30/18 05:30 MCV 85.6 fl (80-96) 05/30/18 05:30 MCHC 32.7 g/dl (32.0-36.0) 05/30/18 05:30 RDW 16.2 % (11.6-15.6) H 05/30/18 05:30 Plt Count 112 K/MM3 (134-434) L 05/30/18 05:30 MPV 9.9 fl (7.5-11.1) D 05/30/18 05:30 CMP Sodium 141 mmol/L (136-145) 05/30/18 05:30 Potassium 4.5 mmol/L (3.5-5.1) 05/30/18 05:30 Chloride 103 mmol/L (98-107) 05/30/18 05:30 Carbon Dioxide 30 mmol/L (21-32) 05/30/18 05:30 Anion Gap 8 MMOL/L (8-16) 05/30/18 05:30 BUN 40 mg/dL (7-18) H 05/30/18 05:30 Creatinine 7.1 mg/dL (0.55-1.3) H 05/30/18 05:30 Creat Clearance w eGFR 5.45 (>60) 05/30/18 05:30 Random Glucose 88 mg/dL (74-106) 05/30/18 05:30 Calcium 7.8 mg/dL (8.5-10.1) L 05/30/18 05:30 Total Bilirubin 0.8 mg/dL (0.2-1) 05/28/18 06:30 AST 19 U/L (15-37) 05/28/18 06:30 ALT 14 U/L (13-61) 05/28/18 06:30 Alkaline Phosphatase 71 U/L (45-117) 05/28/18 06:30 Total Protein 6.9 g/dl (6.4-8.2) 05/28/18 06:30 Albumin 3.9 g/dl (3.4-5.0) 05/28/18 06:30 CARDIAC ENZYMES Creatine Kinase 74 U/L (26-192) 05/27/18 13:59 Troponin I < 0.02 ng/ml (0.00-0.05) 05/27/18 13:59 Current Medications Generic Name Dose Route Start Last Admin Trade Name Freq PRN Reason Stop Dose Admin Acetaminophen 650 mg 05/29/18 13:45 05/30/18 10:49 Tylenol - PO 650 mg Q6H PRN Administration Fever Or Pain Albuterol Sulfate 2 puff 05/28/18 00:00 05/30/18 18:24 Ventolin Hfa Inhaler - IH Not Given Q6HPO [facility] Albuterol/Ipratropium 1 amp 05/27/18 21:23 05/30/18 16:20 Duoneb - NEB 1 amp Q4H PRN Administration SHORTNESS OF BREATH Amlodipine Besylate 10 mg 05/27/18 22:00 05/29/18 21:52 Norvasc - PO 10 mg HS [facility] Administration Heparin Sodium (Porcine) 5,000 unit 05/27/18 22:00 05/30/18 12:52 Heparin - SQ 5,000 unit BID [facility] Administration Hydralazine HCl 37.5 mg 05/28/18 10:00 05/30/18 18:20 Apresoline - PO 37.5 mg BID@1000,1800 [facility] Administration Sodium Chloride 250 mls @ 3,000 mls/hr 05/29/18 15:21 Normal Saline - IV 05/30/18 15:21 PRN PRN Hypotension during Dialysis Insulin Aspart 1 vial 05/27/18 22:00 05/30/18 17:16 Novolog Vial Sliding Scale - SQ Not Given ACHS [facility] Protocol Isosorbide Mononitrate 60 mg 05/29/18 10:00 05/30/18 12:56 Imdur - PO 60 mg DAILY [facility] Administration Lorazepam 1 mg 05/29/18 09:38 Ativan Injection - IVPUSH 05/29/18 09:39 ONCE ONE Lorazepam 0.5 mg 05/30/18 10:00 05/30/18 08:53 Ativan - PO 0.5 mg DAILY PRN Administration ANXIETY BEFORE DIALYSIS Losartan Potassium 50 mg 05/28/18 10:00 05/30/18 12:53 Cozaar - PO 50 mg DAILY [facility] Administration Metoprolol Tartrate 50 mg 05/27/18 22:00 05/30/18 12:52 Lopressor - PO 50 mg BID [facility] Administration Metoprolol Tartrate 5 mg 05/28/18 14:15 Lopressor Injection - IVPB Q4H PRN HYPERTENSION Pantoprazole Sodium 20 mg 05/28/18 10:00 05/30/18 12:52 Protonix - PO 20 mg DAILY [facility] Administration Ranolazine 500 mg 05/27/18 22:00 05/30/18 12:52 Ranexa - PO 500 mg BID [facility] Administration Rosuvastatin Calcium 10 mg 05/27/18 22:00 05/29/18 21:52 Crestor - PO 10 mg HS [facility] Administration Fluticasone/Salmeterol 1 puff 05/27/18 22:00 05/30/18 12:56 Advair 100mcg/50mcg - IH 1 puff BID [facility] Administration Home Medications Medication Instructions Recorded Albuterol Sulfate Inhaler - 2 inh PO Q6H 05/27/18 [Ventolin HFA Inhaler -] Amlodipine Besylate 10 mg PO HS 05/27/18 Isosorbide Mononitrate [Imdur -] 60 mg PO DAILY 05/27/18 Losartan Potassium 50 mg PO DAILY 05/27/18 Metoprolol Tartrate 50 mg PO BID 05/27/18 Rosuvastatin [Crestor -] 20 mg PO HS 05/27/18 Salmeterol/Fluticasone [Advair 1 inh PO BID 05/27/18 100Mcg/50Mcg -] Sevelamer Carbonate [Renvela -] 800 mg PO TID 05/27/18 MRI: slight dural thickening/hyperdensity over R tentorium --stable; no acute finding ASSESSMENT AND PLAN: Patient is an 88 y/o female with PMHx of ESRD (m/w/f) COPD, HTN, DM was sent in from dialysis after she was found to be very agitated/altered and combative. #AMS due metabolic encephalopathy: back to her norm. now, most likely due waxing and weaning symptoms of dementia #HTN continue with IV Lopressor , will switch back to her po meds. #ESRD (MWF) caroline on board #T2DM sliding scale #COPD continue home meds. -neuro consult appreciated, hold lyrica for possible BRICK PICKER effect -follow MRi of the head (if cannot be done then repeat CT in 24 hrs as per neuro ) -ativan as per neuro prn -avoid fluids -nephro consulted for esrd MWF -[facility]. consult appreciated -continue home inhalers DVT Px: heparin sq can be discharged in am if stable Visit type - Emergency Visit Emergency Visit: Yes ED Registration Date: 05/27/18 Care time: The patient presented to the Emergency Department on the above date and was hospitalized for further evaluation of their emergent condition. - New Patient This patient is new to me today: No - Critical Care Critical Care patient: No - Discharge Referral Referred to [facility] Med P.C.: No
[2018-05-30] MEDS: ROSUVASTATIN CA 10 MG TABLET (FP) PO SCH (21:54)
[2018-05-30] MEDS: amLODIPine BESYLATE 10 MG TABLET (FP) PO SCH (21:54)
[2018-05-31] MEDS: ALBUTEROL SO4 8 GM HFA INHALER IH SCH ×4 (00:23→18:02)
[2018-05-31] MEDS: INSULIN SLIDING SCALE (NOVOLOG) 1 VIAL SQ SCH ×4 (06:02→22:36)
[2018-05-31] MEDS ORDERED: PT OWN MED DRAWER 7, Y5N ONE (09:21)
--- NOTE | 2018-05-31 09:21 | PN ---
Progress Note (short form) - Note Progress Note: RENAL Pt is awake and alert comfortable smiling had rigors during hd without fever Last Vital Signs Temp Pulse Resp BP Pulse Ox 98.9 F 85 18 140/65 95 05/31/18 05:45 05/31/18 05:45 05/31/18 08:59 05/31/18 05:45 05/31/18 08:59 lungs has wheezes and basialr crackles cvs s1s2 rr abd soft ext no edema, left avf +thrill neuro awake and alert CBC, BMP 05/30/18 05:30 05/30/18 05:30 Current Medications Generic Name Dose Route Start Last Admin Trade Name Freq PRN Reason Stop Dose Admin Acetaminophen 650 mg 05/29/18 13:45 05/30/18 10:49 Tylenol - PO 650 mg Q6H PRN Administration Fever Or Pain Albuterol Sulfate 2 puff 05/28/18 00:00 05/31/18 06:03 Ventolin Hfa Inhaler - IH 2 puff Q6HPO [facility] Administration Albuterol/Ipratropium 1 amp 05/27/18 21:23 05/30/18 21:30 Duoneb - NEB 1 amp Q4H PRN Administration SHORTNESS OF BREATH Amlodipine Besylate 10 mg 05/27/18 22:00 05/30/18 21:54 Norvasc - PO 10 mg HS [facility] Administration Heparin Sodium (Porcine) 5,000 unit 05/27/18 22:00 05/30/18 21:54 Heparin - SQ 5,000 unit BID [facility] Administration Hydralazine HCl 37.5 mg 05/28/18 10:00 05/30/18 18:20 Apresoline - PO 37.5 mg BID@1000,1800 [facility] Administration Sodium Chloride 250 mls @ 3,000 mls/hr 05/29/18 15:21 Normal Saline - IV 05/30/18 15:21 PRN PRN Hypotension during Dialysis Insulin Aspart 1 vial 05/27/18 22:00 05/31/18 06:02 Novolog Vial Sliding Scale - SQ Not Given ACHS [facility] Protocol Isosorbide Mononitrate 60 mg 05/29/18 10:00 05/30/18 12:56 Imdur - PO 60 mg DAILY [facility] Administration Lorazepam 1 mg 05/29/18 09:38 Ativan Injection - IVPUSH 05/29/18 09:39 ONCE ONE Lorazepam 0.5 mg 05/30/18 10:00 05/30/18 08:53 Ativan - PO 0.5 mg DAILY PRN Administration ANXIETY BEFORE DIALYSIS Losartan Potassium 50 mg 05/28/18 10:00 05/30/18 12:53 Cozaar - PO 50 mg DAILY [facility] Administration Metoprolol Tartrate 50 mg 05/27/18 22:00 05/30/18 21:54 Lopressor - PO 50 mg BID [facility] Administration Metoprolol Tartrate 5 mg 05/28/18 14:15 Lopressor Injection - IVPB Q4H PRN HYPERTENSION Pantoprazole Sodium 20 mg 05/28/18 10:00 05/30/18 12:52 Protonix - PO 20 mg DAILY [facility] Administration Ranolazine 500 mg 05/27/18 22:00 05/30/18 21:55 Ranexa - PO 500 mg BID [facility] Administration Rosuvastatin Calcium 10 mg 05/27/18 22:00 05/30/18 21:54 Crestor - PO 10 mg HS [facility] Administration Fluticasone/Salmeterol 1 puff 05/27/18 22:00 05/30/18 21:53 Advair 100mcg/50mcg - IH 1 puff BID [facility] Administration Impression 1. ESRD 2. HTN 3. HLD 4. COPD 5. DM 6. pos heb b core 7. confusion with altered mental status 8. anemia and thrombocytopenia Plan heparin free hd given thrombocytopenia continue inhaled steroids follow blood culture from hd unit yesterday. So far neg MV
[2018-05-31] MEDS: PANTOPRAZOLE 20 MG TABLET (FP) PO SCH (09:24)
[2018-05-31] MEDS: HEPARIN NA (PORCINE) 5,000 UNITS/ML 1ML VIAL SQ SCH ×2 (09:24→22:36)
[2018-05-31] MEDS: METOPROLOL TARTRATE 50 MG TABLET (FP) PO SCH ×2 (09:24→22:36)
[2018-05-31] MEDS: LOSARTAN POTASSIUM 50 MG TABLET (FP) PO SCH (09:24)
[2018-05-31] MEDS: hydrALAZINE HCL 25 MG TABLET (FP) PO SCH ×2 (09:24→18:01)
[2018-05-31] MEDS: ISOSORBIDE MONONITRATE 60 MG TAB.SR.24H (FP) PO SCH (09:24)
[2018-05-31] MEDS: RANOLAZINE E.R. 500 MG TABLET (FP) PO SCH ×2 (09:28→22:36)
[2018-05-31] MEDS: FLUTICASONE/SALMETEROL 100 MCG/50 MCG DISKUS IH SCH ×2 (09:45→22:35)
--- NOTE | 2018-05-31 14:45 | PN ---
Progress Note (short form) - Note Progress Note: Patient is having mild labored breathing. no fever or chills. Vital Signs Temperature 98.7 F 05/31/18 14:30 Pulse Rate 75 05/31/18 14:30 Respiratory Rate 18 05/31/18 14:30 Blood Pressure 106/52 L 05/31/18 14:30 O2 Sat by Pulse Oximetry (%) 100 05/31/18 08:59 GENERAL: The patient is awake, less agitated, calmer and smiling EYES:PEERLA: EOMI; no scleral icterus. NECK: no JVD: no lymphadenopathy LUNGS: decreased BS at the basis , positive for wheezing with increased use of increased accessory muscle use. HEART: Regular rate and rhythm, S1, S2 without murmur, rub or gallop. ABDOMEN: Soft, NT, ND, normoactive bowel sounds, no guarding, no rebound, no hepatosplenomegaly, no masses. EXTREMITIES: 2+ pulses, warm, well-perfused, no edema. PSYCH: back to her baseline SKIN: Warm, dry, normal turgor, no rashes or lesions noted CBCD WBC 6.6 K/mm3 (4.0-10.0) 05/30/18 05:30 RBC 4.21 M/mm3 (3.60-5.2) 05/30/18 05:30 Hgb 11.8 GM/dL (10.7-15.3) 05/30/18 05:30 Hct 36.1 % (32.4-45.2) D 05/30/18 05:30 MCV 85.6 fl (80-96) 05/30/18 05:30 MCHC 32.7 g/dl (32.0-36.0) 05/30/18 05:30 RDW 16.2 % (11.6-15.6) H 05/30/18 05:30 Plt Count 112 K/MM3 (134-434) L 05/30/18 05:30 MPV 9.9 fl (7.5-11.1) D 05/30/18 05:30 CMP Sodium 141 mmol/L (136-145) 05/30/18 05:30 Potassium 4.5 mmol/L (3.5-5.1) 05/30/18 05:30 Chloride 103 mmol/L (98-107) 05/30/18 05:30 Carbon Dioxide 30 mmol/L (21-32) 05/30/18 05:30 Anion Gap 8 MMOL/L (8-16) 05/30/18 05:30 BUN 40 mg/dL (7-18) H 05/30/18 05:30 Creatinine 7.1 mg/dL (0.55-1.3) H 05/30/18 05:30 Creat Clearance w eGFR 5.45 (>60) 05/30/18 05:30 Random Glucose 88 mg/dL (74-106) 05/30/18 05:30 Calcium 7.8 mg/dL (8.5-10.1) L 05/30/18 05:30 Total Bilirubin 0.8 mg/dL (0.2-1) 05/28/18 06:30 AST 19 U/L (15-37) 05/28/18 06:30 ALT 14 U/L (13-61) 05/28/18 06:30 Alkaline Phosphatase 71 U/L (45-117) 05/28/18 06:30 Total Protein 6.9 g/dl (6.4-8.2) 05/28/18 06:30 Albumin 3.9 g/dl (3.4-5.0) 05/28/18 06:30 CARDIAC ENZYMES Creatine Kinase 74 U/L (26-192) 05/27/18 13:59 Troponin I < 0.02 ng/ml (0.00-0.05) 05/27/18 13:59 Current Medications Generic Name Dose Route Start Last Admin Trade Name Freq PRN Reason Stop Dose Admin Acetaminophen 650 mg 05/29/18 13:45 05/30/18 10:49 Tylenol - PO 650 mg Q6H PRN Administration Fever Or Pain Albuterol Sulfate 2 puff 05/28/18 00:00 05/31/18 06:03 Ventolin Hfa Inhaler - IH 2 puff Q6HPO [facility] Administration Albuterol/Ipratropium 1 amp 05/27/18 21:23 05/30/18 21:30 Duoneb - NEB 1 amp Q4H PRN Administration SHORTNESS OF BREATH Amlodipine Besylate 10 mg 05/27/18 22:00 05/30/18 21:54 Norvasc - PO 10 mg HS [facility] Administration Heparin Sodium (Porcine) 5,000 unit 05/27/18 22:00 05/31/18 09:24 Heparin - SQ 5,000 unit BID [facility] Administration Hydralazine HCl 37.5 mg 05/28/18 10:00 05/31/18 09:24 Apresoline - PO 37.5 mg BID@1000,1800 [facility] Administration Sodium Chloride 250 mls @ 3,000 mls/hr 05/29/18 15:21 Normal Saline - IV 05/30/18 15:21 PRN PRN Hypotension during Dialysis Insulin Aspart 1 vial 05/27/18 22:00 05/31/18 13:50 Novolog Vial Sliding Scale - SQ Not Given ACHS [facility] Protocol Isosorbide Mononitrate 60 mg 05/29/18 10:00 05/31/18 09:24 Imdur - PO 60 mg DAILY [facility] Administration Lorazepam 1 mg 05/29/18 09:38 Ativan Injection - IVPUSH 05/29/18 09:39 ONCE ONE Lorazepam 0.5 mg 05/30/18 10:00 05/30/18 08:53 Ativan - PO 0.5 mg DAILY PRN Administration ANXIETY BEFORE DIALYSIS Losartan Potassium 50 mg 05/28/18 10:00 05/31/18 09:24 Cozaar - PO 50 mg DAILY [facility] Administration Metoprolol Tartrate 50 mg 05/27/18 22:00 05/31/18 09:24 Lopressor - PO 50 mg BID [facility] Administration Metoprolol Tartrate 5 mg 05/28/18 14:15 Lopressor Injection - IVPB Q4H PRN HYPERTENSION Pantoprazole Sodium 20 mg 05/28/18 10:00 05/31/18 09:24 Protonix - PO 20 mg DAILY [facility] Administration Ranolazine 500 mg 05/27/18 22:00 05/31/18 09:28 Ranexa - PO 500 mg BID [facility] Administration Rosuvastatin Calcium 10 mg 05/27/18 22:00 05/30/18 21:54 Crestor - PO 10 mg HS [facility] Administration Fluticasone/Salmeterol 1 puff 05/27/18 22:00 05/31/18 09:45 Advair 100mcg/50mcg - IH 1 puff BID [facility] Administration Home Medications Medication Instructions Recorded Albuterol Sulfate Inhaler - 2 inh PO Q6H 05/27/18 [Ventolin HFA Inhaler -] Amlodipine Besylate 10 mg PO HS 05/27/18 Isosorbide Mononitrate [Imdur -] 60 mg PO DAILY 05/27/18 Losartan Potassium 50 mg PO DAILY 05/27/18 Metoprolol Tartrate 50 mg PO BID 05/27/18 Rosuvastatin [Crestor -] 20 mg PO HS 05/27/18 Salmeterol/Fluticasone [Advair 1 inh PO BID 05/27/18 100Mcg/50Mcg -] Sevelamer Carbonate [Renvela -] 800 mg PO TID 05/27/18 MRI: slight dural thickening/hyperdensity over R tentorium --stable; no acute finding ASSESSMENT AND PLAN: Patient is an 88 y/o female with PMHx of ESRD (m/w/f) COPD, HTN, DM was sent in from dialysis after she was found to be very agitated/altered and combative. # acute mild exacerbation of COPD with labored breathing #AMS due metabolic encephalopathy: back to her norm. will get y to evaluate the patient. #HTN continue with IV Lopressor , will switch back to her po meds. #ESRD (MWF) brooke on board #T2DM sliding scale #COPD continue home meds. -neuro consult appreciated, hold lyrica for possible PUBLIC STENOGRAPHER effect - MRi of the head done, reviewed -ativan as per neuro prn -avoid fluids -nephro for esrd MWF -[facility]. consult appreciated -continue home inhalers DVT Px: heparin sq can be discharged in am if stable Visit type - Emergency Visit Emergency Visit: Yes ED Registration Date: 05/27/18 Care time: The patient presented to the Emergency Department on the above date and was hospitalized for further evaluation of their emergent condition. - New Patient This patient is new to me today: No - Critical Care Critical Care patient: No - Discharge Referral Referred to [facility] Med P.C.: No
[2018-05-31] MEDS: ALBUTEROL SO4 2.5/IPRATROPIUM 0.5 INH SOL 3 ML VIAL.NEB. NEB PRN (15:57)
[2018-05-31] MEDS: ROSUVASTATIN CA 10 MG TABLET (FP) PO SCH (22:35)
[2018-05-31] MEDS: amLODIPine BESYLATE 10 MG TABLET (FP) PO SCH (22:36)
[2018-06-01] MEDS: ALBUTEROL SO4 8 GM HFA INHALER IH SCH ×4 (02:17→17:38)
[2018-06-01] MEDS: INSULIN SLIDING SCALE (NOVOLOG) 1 VIAL SQ SCH ×4 (06:06→21:18)
[2018-06-01] MEDS: HEPARIN NA (PORCINE) 5,000 UNITS/ML 1ML VIAL SQ SCH ×3 (09:12→21:14)
[2018-06-01] MEDS: METOPROLOL TARTRATE 50 MG TABLET (FP) PO SCH ×3 (09:13→21:12)
[2018-06-01] MEDS: LOSARTAN POTASSIUM 50 MG TABLET (FP) PO SCH ×2 (09:13→10:23)
[2018-06-01] MEDS: hydrALAZINE HCL 25 MG TABLET (FP) PO SCH ×3 (09:13→17:33)
[2018-06-01] MEDS: PANTOPRAZOLE 20 MG TABLET (FP) PO SCH ×2 (09:13→10:23)
[2018-06-01] MEDS: RANOLAZINE E.R. 500 MG TABLET (FP) PO SCH ×3 (09:13→21:12)
[2018-06-01] MEDS: ISOSORBIDE MONONITRATE 60 MG TAB.SR.24H (FP) PO SCH ×2 (09:13→10:23)
[2018-06-01] MEDS: FLUTICASONE/SALMETEROL 100 MCG/50 MCG DISKUS IH SCH ×3 (09:14→21:22)
[2018-06-01] MEDS ORDERED: LORazepam 0.5 MG TABLET PO PRN (09:15)
[2018-06-01] MEDS ORDERED: LORazepam 2 MG/ML SDV VIAL IVPUSH ONE ×2 (11:00→14:06)
--- NOTE | 2018-06-01 13:02 | PN ---
Physical Exam: SUBJECTIVE: Patient seen and examined at bedside- patient is very agitated/ combative this AM not tolerating any PO meds; OBJECTIVE: Vital Signs Period Temp Pulse Resp BP Sys/Betancourt Pulse Ox Last 24 Hr 98.4 F-99 F 69-93 18-20 106-150/52-81 96 GENERAL: The patient is awake, alert, agitated/combative. EYES:PEERLA: EOMI no scleral icterus. NECK: no JV: no lymphadenopathy LUNGS: diminished breath sounds HEART: Regular rate and rhythm, S1, S2 without murmur, rub or gallop. ABDOMEN: Soft, nontender, nondistended, normoactive bowel sounds, no guarding, no rebound, no hepatosplenomegaly, no masses. EXTREMITIES: 2+ pulses, warm, well-perfused, no edema. . PSYCH: agitated/combative. SKIN: Warm, dry, normal turgor, no rashes or lesions noted Laboratory Results - last 24 hr 05/31/18 05/31/18 05/31/18 12:52 13:01 16:56 POC Glucometer 56 59 71 05/31/18 06/01/18 06/01/18 22:34 04:59 12:01 POC Glucometer 91 91 110 Active Medications Generic Name Dose Route Start Last Admin Trade Name Freq PRN Reason Stop Dose Admin Acetaminophen 650 mg 05/29/18 13:45 05/30/18 10:49 Tylenol - PO 650 mg Q6H PRN Administration Fever Or Pain Albuterol Sulfate 2 puff 05/28/18 00:00 06/01/18 05:15 Ventolin Hfa Inhaler - IH Not Given Q6HPO [facility] Albuterol/Ipratropium 1 amp 05/27/18 21:23 05/31/18 15:57 Duoneb - NEB 1 amp Q4H PRN Administration SHORTNESS OF BREATH Amlodipine Besylate 10 mg 05/27/18 22:00 05/31/18 22:36 Norvasc - PO 10 mg HS [facility] Administration Heparin Sodium (Porcine) 5,000 unit 05/27/18 22:00 06/01/18 10:23 Heparin - SQ Not Given BID [facility] Hydralazine HCl 37.5 mg 05/28/18 10:00 06/01/18 10:23 Apresoline - PO Not Given BID@1000,1800 [facility] Insulin Aspart 1 vial 05/27/18 22:00 06/01/18 12:05 Novolog Vial Sliding Scale - SQ Not Given ACHS [facility] Protocol Isosorbide Mononitrate 60 mg 05/29/18 10:00 06/01/18 10:23 Imdur - PO Not Given DAILY [facility] Lorazepam 0.5 mg 06/01/18 09:15 Ativan - PO DAILY PRN ANXIETY BEFORE DIALYSIS Losartan Potassium 50 mg 05/28/18 10:00 06/01/18 10:23 Cozaar - PO Not Given DAILY [facility] Metoprolol Tartrate 50 mg 05/27/18 22:00 06/01/18 10:23 Lopressor - PO Not Given BID [facility] Metoprolol Tartrate 5 mg 05/28/18 14:15 06/01/18 10:31 Lopressor Injection - IVPB 5 mg Q4H PRN Administration HYPERTENSION Pantoprazole Sodium 20 mg 05/28/18 10:00 06/01/18 10:23 Protonix - PO Not Given DAILY [facility] Ranolazine 500 mg 05/27/18 22:00 06/01/18 10:24 Ranexa - PO Not Given BID [facility] Rosuvastatin Calcium 10 mg 05/27/18 22:00 05/31/18 22:35 Crestor - PO 10 mg HS [facility] Administration Fluticasone/Salmeterol 1 puff 05/27/18 22:00 06/01/18 10:23 Advair 100mcg/50mcg - IH Not Given BID [facility] ASSESSMENT/PLAN: 88 y/o female with PMH of ESRD (m/w/f) COPD, HTN, DM was sent in from dialysis after she was found to be very agitated/altered and combative. #AMS pateint is still agitated/combative at times d/c lyrica monitor mental status #HTN since patient not tolerating PO HTN meds; will give lopressor 5 q4H with holding parameters (hr < 60, sys BP <120) monitor hemodynamics #ESRD will get HD again tomorrow Dr. Reis on board monitor electrolytes #DM ISS BGMS ACHS #COPD not currently in exacerbation c/w home inhalers F/E/N not on fluids monitor electrolytes diabetic diet Problem List - Problems (1) Altered mental status, unspecified Code(s): R41.82 - ALTERED MENTAL STATUS, UNSPECIFIED (2) ESRD (end stage renal disease) Code(s): N18.6 - END STAGE RENAL DISEASE Visit type - Emergency Visit Emergency Visit: Yes ED Registration Date: 05/27/18 Care time: The patient presented to the Emergency Department on the above date and was hospitalized for further evaluation of their emergent condition. - New Patient This patient is new to me today: No - Critical Care Critical Care patient: No
[2018-06-01] MEDS ORDERED: SODIUM CHLORIDE 250 ML IV PRN (13:54)
--- NOTE | 2018-06-01 13:54 | PN ---
Progress Note, Physician History of Present Illness: Pt seen and examined at bedside. She is awake but is still confused. She requires a one to one sit. - Current Medication List Current Medications: Active Medications Acetaminophen (Tylenol -) 650 mg PO Q6H PRN PRN Reason: Fever Or Pain Last Admin: 05/30/18 10:49 Dose: 650 mg Albuterol Sulfate (Ventolin Hfa Inhaler -) 2 puff IH Q6HPO [facility] Last Admin: 06/01/18 13:31 Dose: Not Given Albuterol/Ipratropium (Duoneb -) 1 amp NEB Q4H PRN PRN Reason: SHORTNESS OF BREATH Last Admin: 05/31/18 15:57 Dose: 1 amp Amlodipine Besylate (Norvasc -) 10 mg PO HS [facility] Last Admin: 05/31/18 22:36 Dose: 10 mg Heparin Sodium (Porcine) (Heparin -) 5,000 unit SQ BID [facility] Last Admin: 06/01/18 10:23 Dose: Not Given Hydralazine HCl (Apresoline -) 37.5 mg PO BID@1000,1800 [facility] Last Admin: 06/01/18 10:23 Dose: Not Given Insulin Aspart (Novolog Vial Sliding Scale -) 1 vial SQ [facility]; Protocol Last Admin: 06/01/18 12:05 Dose: Not Given Isosorbide Mononitrate (Imdur -) 60 mg PO DAILY [facility] Last Admin: 06/01/18 10:23 Dose: Not Given Lorazepam (Ativan -) 0.5 mg PO DAILY PRN PRN Reason: ANXIETY BEFORE DIALYSIS Losartan Potassium (Cozaar -) 50 mg PO DAILY [facility] Last Admin: 06/01/18 10:23 Dose: Not Given Metoprolol Tartrate (Lopressor -) 50 mg PO BID [facility] Last Admin: 06/01/18 10:23 Dose: Not Given Metoprolol Tartrate (Lopressor Injection -) 5 mg IVPB Q4H PRN PRN Reason: HYPERTENSION Last Admin: 06/01/18 10:31 Dose: 5 mg Pantoprazole Sodium (Protonix -) 20 mg PO DAILY [facility] Last Admin: 06/01/18 10:23 Dose: Not Given Ranolazine (Ranexa -) 500 mg PO BID [facility] Last Admin: 06/01/18 10:24 Dose: Not Given Rosuvastatin Calcium (Crestor -) 10 mg PO HS [facility] Last Admin: 05/31/18 22:35 Dose: 10 mg Fluticasone/Salmeterol (Advair 100mcg/50mcg -) 1 puff IH BID [facility] Last Admin: 06/01/18 10:23 Dose: Not Given - Objective Vital Signs: Vital Signs Temperature 99 F 06/01/18 05:24 Pulse Rate 93 H 06/01/18 10:31 Respiratory Rate 20 06/01/18 10:00 Blood Pressure 149/81 06/01/18 10:31 O2 Sat by Pulse Oximetry (%) 96 06/01/18 09:00 Constitutional: Yes: Calm Eyes: Yes: Conjunctiva Clear HENT: Yes: Atraumatic Cardiovascular: Yes: S1, S2 Respiratory: Yes: On Nasal O2 Gastrointestinal: Yes: Normal Bowel Sounds, Soft Genitourinary: Yes: Incontinence Musculoskeletal: Yes: WNL Edema: No Neurological: Yes: Confusion Labs: CBC, BMP 05/30/18 05:30 05/30/18 05:30 INR, PTT INR 0.87 (0.83-1.09) 05/28/18 06:30 Assessment/Plan Current Medications Generic Name Dose Route Start Last Admin Trade Name Freq PRN Reason Stop Dose Admin Acetaminophen 650 mg 05/29/18 13:45 05/30/18 10:49 Tylenol - PO 650 mg Q6H PRN Administration Fever Or Pain Albuterol Sulfate 2 puff 05/28/18 00:00 06/01/18 13:31 Ventolin Hfa Inhaler - IH Not Given Q6HPO [facility] Albuterol/Ipratropium 1 amp 05/27/18 21:23 05/31/18 15:57 Duoneb - NEB 1 amp Q4H PRN Administration SHORTNESS OF BREATH Amlodipine Besylate 10 mg 05/27/18 22:00 05/31/18 22:36 Norvasc - PO 10 mg HS [facility] Administration Heparin Sodium (Porcine) 5,000 unit 05/27/18 22:00 06/01/18 10:23 Heparin - SQ Not Given BID [facility] Hydralazine HCl 37.5 mg 05/28/18 10:00 06/01/18 10:23 Apresoline - PO Not Given BID@1000,1800 [facility] Insulin Aspart 1 vial 05/27/18 22:00 06/01/18 12:05 Novolog Vial Sliding Scale - SQ Not Given ACHS [facility] Protocol Isosorbide Mononitrate 60 mg 05/29/18 10:00 06/01/18 10:23 Imdur - PO Not Given DAILY [facility] Lorazepam 0.5 mg 06/01/18 09:15 Ativan - PO DAILY PRN ANXIETY BEFORE DIALYSIS Losartan Potassium 50 mg 05/28/18 10:00 06/01/18 10:23 Cozaar - PO Not Given DAILY [facility] Metoprolol Tartrate 50 mg 05/27/18 22:00 06/01/18 10:23 Lopressor - PO Not Given BID [facility] Metoprolol Tartrate 5 mg 05/28/18 14:15 06/01/18 10:31 Lopressor Injection - IVPB 5 mg Q4H PRN Administration HYPERTENSION Pantoprazole Sodium 20 mg 05/28/18 10:00 06/01/18 10:23 Protonix - PO Not Given DAILY [facility] Ranolazine 500 mg 05/27/18 22:00 06/01/18 10:24 Ranexa - PO Not Given BID [facility] Rosuvastatin Calcium 10 mg 05/27/18 22:00 05/31/18 22:35 Crestor - PO 10 mg HS [facility]REST Administration Fluticasone/Salmeterol 1 puff 05/27/18 22:00 06/01/18 10:23 Advair 100mcg/50mcg - IH Not Given BID [facility] Impression 1. ESRD 2. HTN 3. HLD 4. COPD 5. DM 6. pos heb b core 7. confusion with altered mental status 8. anemia Plan - HD tomorrow - atican before HD - mental status has not improved - will not be able to dialyze pt as outpt unless she is calm
--- NOTE | 2018-06-01 18:09 | CON.PSY ---
Psychiatry Consult Chief Complaint: 88 year old female with a history of DEmentia, ESRD seen for acute onset of Visual hallucinations and paranoid and aggressive behaviour. patient accusing staff and her own family that they are going to kill her. apprehensive and agitated and placed on 1:1. Case discussed and additiuonal history obtained from daughters. Symptoms: reports: Sleep Disturbance, Memory Impairment, Aggressivity, Impulsivity, Disorganized/Disruptive Thoughts, Hallucinations, Paranoia - Previous Psychiatric Treatment Outpatient: None Inpatient: None - Previous Substance Abuse Treatment Outpatient: None Inpatient: None - Current Medications Current Medications: Active Medications Acetaminophen (Tylenol -) 650 mg PO Q6H PRN PRN Reason: Fever Or Pain Last Admin: 05/30/18 10:49 Dose: 650 mg Albuterol Sulfate (Ventolin Hfa Inhaler -) 2 puff IH Q6HPO [facility] Last Admin: 06/01/18 17:38 Dose: 2 puff Albuterol/Ipratropium (Duoneb -) 1 amp NEB Q4H PRN PRN Reason: SHORTNESS OF BREATH Last Admin: 05/31/18 15:57 Dose: 1 amp Amlodipine Besylate (Norvasc -) 10 mg PO HS [facility] Last Admin: 05/31/18 22:36 Dose: 10 mg Heparin Sodium (Porcine) (Heparin -) 5,000 unit SQ BID [facility] Last Admin: 06/01/18 10:23 Dose: Not Given Hydralazine HCl (Apresoline -) 37.5 mg PO BID@1000,1800 [facility] Last Admin: 06/01/18 17:33 Dose: 37.5 mg Sodium Chloride (Normal Saline -) 250 mls @ 3,000 mls/hr IV PRN PRN PRN Reason: Hypotension during Dialysis Stop: 06/02/18 13:54 Insulin Aspart (Novolog Vial Sliding Scale -) 1 vial SQ ACHS [facility]; Protocol Last Admin: 06/01/18 16:52 Dose: Not Given Isosorbide Mononitrate (Imdur -) 60 mg PO DAILY [facility] Last Admin: 06/01/18 10:23 Dose: Not Given Losartan Potassium (Cozaar -) 50 mg PO DAILY [facility] Last Admin: 06/01/18 10:23 Dose: Not Given Metoprolol Tartrate (Lopressor -) 50 mg PO BID [facility] Last Admin: 06/01/18 10:23 Dose: Not Given Metoprolol Tartrate (Lopressor Injection -) 5 mg IVPB Q4H PRN PRN Reason: HYPERTENSION Last Admin: 06/01/18 10:31 Dose: 5 mg Pantoprazole Sodium (Protonix -) 20 mg PO DAILY [facility] Last Admin: 06/01/18 10:23 Dose: Not Given Ranolazine (Ranexa -) 500 mg PO BID [facility] Last Admin: 06/01/18 10:24 Dose: Not Given Rosuvastatin Calcium (Crestor -) 10 mg PO HS [facility] Last Admin: 05/31/18 22:35 Dose: 10 mg Fluticasone/Salmeterol (Advair 100mcg/50mcg -) 1 puff IH BID [facility] Last Admin: 06/01/18 10:23 Dose: Not Given - Allergies Allergies: Allergies Allergy/AdvReac Type Severity Reaction Status Date / Time egg AdvReac Vomiting Verified 05/27/18 12:48 - Current Living Status Usual Living Arrangement: With Significant Other - Current Mental Status Evaluation Appearance: Well Groomed Attitude: Uncooperative - Affect Affect: Constrictive Appropriateness: Not Appropriate - Mood Mood: Angry - Speech/Language Expressive: Delayed - Psychomotor Activity Psychomotor Activity: Agitated - Thought Process Thought Process: Circumstantial - Thought Content Type: Auditory Type: Persectory - Self Perception Self Perception: No Impairment - Cognition Attention: Alert Orientation: Time Memory, Short Term: 1/3 Memory, Remote with Promptin/3 - Abstraction Proverb Interpretation: Impaired Judgement: Moderately Impaired - Insight Insight: Impaired - Impulse Control Impulse Control: Moderately Impaired - Suicidal Ideation Suicidal Ideation: No - Homicidal Ideation Homicidal Ideation: No Assessment/Plan 1) No more Benzos. 2) zyprexa 5mg po BID>
[2018-06-01] MEDS ORDERED: INSULIN (NOVOLOG) ASPART 100 UNITS/ML 10ML VIAL ONE (18:43)
[2018-06-01] MEDS ORDERED: PT OWN MED DRAWER 7, Y5N ONE (18:44)
--- NOTE | 2018-06-01 20:53 | PN ---
Teaching Attending Note Name of Resident: Basia Stevens ATTENDING PHYSICIAN STATEMENT I saw and evaluated the patient. I reviewed the resident's note and discussed the case with the resident. I agree with the resident's findings and plan as documented. SUBJECTIVE: Patient is confused, slightly better than yesterday, her niece is at bedside, patient is having visual hallucinations. OBJECTIVE: Vital Signs Temperature 98.1 F 06/01/18 18:00 Pulse Rate 95 H 06/01/18 18:00 Respiratory Rate 18 06/01/18 18:00 Blood Pressure 138/87 06/01/18 18:00 O2 Sat by Pulse Oximetry (%) 96 06/01/18 09:00 GENERAL: The patient is awake, confused ,not agitated; combative EYES:PEERLA: EOMI; no scleral icterus. NECK: no JVD: no lymphadenopathy LUNGS: decreased BS at the basis HEART: Regular rate and rhythm, S1, S2 without murmur, rub or gallop. ABDOMEN: Soft, NT, ND, normoactive bowel sounds, no guarding, no rebound, no hepatosplenomegaly, no masses. EXTREMITIES: 2+ pulses, warm, well-perfused, no edema. PSYCH: back to her baseline SKIN: Warm, dry, normal turgor, no rashes or lesions noted CBCD WBC 6.6 K/mm3 (4.0-10.0) 05/30/18 05:30 RBC 4.21 M/mm3 (3.60-5.2) 05/30/18 05:30 Hgb 11.8 GM/dL (10.7-15.3) 05/30/18 05:30 Hct 36.1 % (32.4-45.2) D 05/30/18 05:30 MCV 85.6 fl (80-96) 05/30/18 05:30 MCHC 32.7 g/dl (32.0-36.0) 05/30/18 05:30 RDW 16.2 % (11.6-15.6) H 05/30/18 05:30 Plt Count 112 K/MM3 (134-434) L 05/30/18 05:30 MPV 9.9 fl (7.5-11.1) D 05/30/18 05:30 CMP Sodium 141 mmol/L (136-145) 05/30/18 05:30 Potassium 4.5 mmol/L (3.5-5.1) 05/30/18 05:30 Chloride 103 mmol/L (98-107) 05/30/18 05:30 Carbon Dioxide 30 mmol/L (21-32) 05/30/18 05:30 Anion Gap 8 MMOL/L (8-16) 05/30/18 05:30 BUN 40 mg/dL (7-18) H 05/30/18 05:30 Creatinine 7.1 mg/dL (0.55-1.3) H 05/30/18 05:30 Creat Clearance w eGFR 5.45 (>60) 05/30/18 05:30 Random Glucose 88 mg/dL (74-106) 05/30/18 05:30 Calcium 7.8 mg/dL (8.5-10.1) L 05/30/18 05:30 Total Bilirubin 0.8 mg/dL (0.2-1) 05/28/18 06:30 AST 19 U/L (15-37) 05/28/18 06:30 ALT 14 U/L (13-61) 05/28/18 06:30 Alkaline Phosphatase 71 U/L (45-117) 05/28/18 06:30 Total Protein 6.9 g/dl (6.4-8.2) 05/28/18 06:30 Albumin 3.9 g/dl (3.4-5.0) 05/28/18 06:30 CARDIAC ENZYMES Creatine Kinase 74 U/L (26-192) 05/27/18 13:59 Troponin I < 0.02 ng/ml (0.00-0.05) 05/27/18 13:59 Current Medications Generic Name Dose Route Start Last Admin Trade Name Freq PRN Reason Stop Dose Admin Acetaminophen 650 mg 05/29/18 13:45 05/30/18 10:49 Tylenol - PO 650 mg Q6H PRN Administration Fever Or Pain Albuterol Sulfate 2 puff 05/28/18 00:00 06/01/18 17:38 Ventolin Hfa Inhaler - IH 2 puff Q6HPO [facility] Administration Albuterol/Ipratropium 1 amp 05/27/18 21:23 05/31/18 15:57 Duoneb - NEB 1 amp Q4H PRN Administration SHORTNESS OF BREATH Amlodipine Besylate 10 mg 03/27/19 22:00 05/31/18 22:36 Norvasc - PO 10 mg HS [facility] Administration Heparin Sodium (Porcine) 5,000 unit 05/27/18 22:00 06/01/18 10:23 Heparin - SQ Not Given BID [facility] Hydralazine HCl 37.5 mg 05/28/18 10:00 06/01/18 17:33 Apresoline - PO 37.5 mg BID@1000,1800 [facility] Administration Sodium Chloride 250 mls @ 3,000 mls/hr 06/01/18 13:54 Normal Saline - IV 06/02/18 13:54 PRN PRN Hypotension during Dialysis Insulin Aspart 1 vial 05/27/18 22:00 06/01/18 16:52 Novolog Vial Sliding Scale - SQ Not Given ACHS [facility] Protocol Isosorbide Mononitrate 60 mg 05/29/18 10:00 06/01/18 10:23 Imdur - PO Not Given DAILY [facility] Losartan Potassium 50 mg 05/28/18 10:00 06/01/18 10:23 Cozaar - PO Not Given DAILY [facility] Metoprolol Tartrate 50 mg 05/27/18 22:00 06/01/18 10:23 Lopressor - PO Not Given BID [facility] Metoprolol Tartrate 5 mg 05/28/18 14:15 06/01/18 10:31 Lopressor Injection - IVPB 5 mg Q4H PRN Administration HYPERTENSION Olanzapine 5 mg 06/01/18 22:00 Zyprexa - PO BID [facility] Pantoprazole Sodium 20 mg 05/28/18 10:00 06/01/18 10:23 Protonix - PO Not Given DAILY [facility] Ranolazine 500 mg 05/27/18 22:00 06/01/18 10:24 Ranexa - PO Not Given BID [facility] Rosuvastatin Calcium 10 mg 05/27/18 22:00 05/31/18 22:35 Crestor - PO 10 mg HS [facility] Administration Fluticasone/Salmeterol 1 puff 05/27/18 22:00 06/01/18 10:23 Advair 100mcg/50mcg - IH Not Given BID [facility] Home Medications Medication Instructions Recorded Albuterol Sulfate Inhaler - 2 inh PO Q6H 05/27/18 [Ventolin HFA Inhaler -] Amlodipine Besylate 10 mg PO HS 05/27/18 Isosorbide Mononitrate [Imdur -] 60 mg PO DAILY 05/27/18 Losartan Potassium 50 mg PO DAILY 05/27/18 Metoprolol Tartrate 50 mg PO BID 05/27/18 Rosuvastatin [Crestor -] 20 mg PO HS 05/27/18 Salmeterol/Fluticasone [Advair 1 inh PO BID 05/27/18 100Mcg/50Mcg -] Sevelamer Carbonate [Renvela -] 800 mg PO TID 05/27/18 MRI: slight dural thickening/hyperdensity over R tentorium --stable; no acute finding ASSESSMENT AND PLAN: Patient is an 88 y/o female with PMHx of ESRD (m/w/f) COPD, HTN, DM was sent in from dialysis after she was found to be very agitated/altered and combative. #AMS due metabolic encephalopathy: patient is confused again, psych consult appreciated, and started the patient on Zyprxa 2.5mg po bid , and suggested not to give ativan #HTN continue her meds. #ESRD (MWF) irvin on board #T2DM sliding scale #COPD continue home meds. 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
[2018-06-01] MEDS: OLANZapine 5 MG TABLET PO SCH (21:12)
[2018-06-01] MEDS: amLODIPine BESYLATE 10 MG TABLET (FP) PO SCH (21:12)
[2018-06-01] MEDS: ROSUVASTATIN CA 10 MG TABLET (FP) PO SCH (21:13)
[2018-06-01 21:57] LABS: ARTERIAL BLOOD GAS BASE EXCESS 2.2 meq/l (-2-2); ARTERIAL BLOOD GAS PO2 60.6 mmHg (80-105); ARTERIAL BLOOD GAS pH 7.34 (7.35-7.45)
[2018-06-01 21:59] LABS: ALLENS TEST POSITIVE
[2018-06-02] MEDS: ALBUTEROL SO4 2.5/IPRATROPIUM 0.5 INH SOL 3 ML VIAL.NEB. NEB PRN ×4 (01:29→19:09)
[2018-06-02] MEDS: ALBUTEROL SO4 8 GM HFA INHALER IH SCH ×4 (02:16→17:27)
[2018-06-02] MEDS: INSULIN SLIDING SCALE (NOVOLOG) 1 VIAL SQ SCH ×4 (06:03→22:32)
--- NOTE | 2018-06-02 08:37 | PN ---
Physical Exam: SUBJECTIVE: Patient seen and examined at bedside- patient is still very agitated and confused- she is going for HD today. OBJECTIVE: Vital Signs Period Temp Pulse Resp BP Sys/Betancourt Pulse Ox Last 24 Hr 98.1 F-99.2 F 83-97 18-20 138-160/61-87 96-100 GENERAL: The patient is awake, alert, agitated/combative EYES: PEERLA: EOMI; no scleral icterus NECK: no JVD; no lymphadenopathy LUNGS: dimished breath sounds HEART: Regular rate and rhythm, S1, S2 without murmur, rub or gallop. ABDOMEN: Soft, nontender, nondistended, normoactive bowel sounds, no guarding, no rebound, no hepatosplenomegaly, no masses. EXTREMITIES: 2+ pulses, warm, well-perfused, no edema. PSYCH: agitated/restless. SKIN: Warm, dry, normal turgor, no rashes or lesions noted Laboratory Results - last 24 hr 05/31/18 06/01/18 06/01/18 22:34 12:01 16:25 Anticoagulation Therapy Puncture Site ABG pH ABG pCO2 at Pt Temp ABG pO2 at Pt Temp ABG HCO3 ABG O2 Sat (Measured) ABG O2 Content ABG Base Excess Usman Test O2 Delivery Device Oxygen Flow Rate Vent Mode Vent Rate Mechanical Rate Pressure Support Vent POC Glucometer 91 110 121 06/01/18 06/01/18 06/02/18 21:16 21:30 05:27 Anticoagulation Therapy No Result Required. Puncture Site Right radial ABG pH 7.34 L ABG pCO2 at Pt Temp 55.0 H ABG pO2 at Pt Temp 60.6 L ABG HCO3 28.6 H ABG O2 Sat (Measured) 88.0 L ABG O2 Content 15.9 ABG Base Excess 2.2 H Usman Test Positive O2 Delivery Device No Result Required. Oxygen Flow Rate Yes Vent Mode No Result Required. Vent Rate No Result Required. Mechanical Rate No Result Required. Pressure Support Vent No Result Required. POC Glucometer 161 79 Active Medications Generic Name Dose Route Start Last Admin Trade Name Freq PRN Reason Stop Dose Admin Acetaminophen 650 mg 05/29/18 13:45 05/30/18 10:49 Tylenol - PO 650 mg Q6H PRN Administration Fever Or Pain Albuterol Sulfate 2 puff 05/28/18 00:00 06/02/18 05:28 Ventolin Hfa Inhaler - IH 2 puff Q6HPO [facility] Administration Albuterol/Ipratropium 1 amp 05/27/18 21:23 06/02/18 01:29 Duoneb - NEB 1 amp Q4H PRN Administration SHORTNESS OF BREATH Amlodipine Besylate 10 mg 05/27/18 22:00 06/01/18 21:12 Norvasc - PO 10 mg HS [facility] Administration Heparin Sodium (Porcine) 5,000 unit 05/27/18 22:00 06/01/18 21:14 Heparin - SQ 5,000 unit BID [facility] Administration Hydralazine HCl 37.5 mg 05/28/18 10:00 06/01/18 17:33 Apresoline - PO 37.5 mg BID@1000,1800 [facility] Administration Sodium Chloride 250 mls @ 3,000 mls/hr 06/01/18 13:54 Normal Saline - IV 06/02/18 13:54 PRN PRN Hypotension during Dialysis Insulin Aspart 1 vial 05/27/18 22:00 06/02/18 06:03 Novolog Vial Sliding Scale - SQ Not Given ACHS [facility] Protocol Isosorbide Mononitrate 60 mg 05/29/18 10:00 06/01/18 10:23 Imdur - PO Not Given DAILY [facility] Losartan Potassium 50 mg 05/28/18 10:00 06/01/18 10:23 Cozaar - PO Not Given DAILY [facility] Metoprolol Tartrate 50 mg 05/27/18 22:00 06/01/18 21:12 Lopressor - PO 50 mg BID [facility] Administration Metoprolol Tartrate 5 mg 05/28/18 14:15 06/01/18 10:31 Lopressor Injection - IVPB 5 mg Q4H PRN Administration HYPERTENSION Olanzapine 5 mg 06/01/18 22:00 06/01/18 21:12 Zyprexa - PO 5 mg BID [facility] Administration Pantoprazole Sodium 20 mg 05/28/18 10:00 06/01/18 10:23 Protonix - PO Not Given DAILY [facility] Ranolazine 500 mg 05/27/18 22:00 06/01/18 21:12 Ranexa - PO 500 mg BID [facility] Administration Rosuvastatin Calcium 10 mg 05/27/18 22:00 06/01/18 21:13 Crestor - PO 10 mg HS [facility] Administration Fluticasone/Salmeterol 1 puff 05/27/18 22:00 06/01/18 21:22 Advair 100mcg/50mcg - IH 1 puff BID [facility] Administration ASSESSMENT/PLAN: 88 y/o female with PMH of ESRD (m/w/f) COPD, HTN, DM was sent in from dialysis after she was found to be very agitated/altered and combative. #AMS pateint is still agitated/combative at times d/c lyrica monitor mental status dr. fuentes saw patient last night: no benzos; added zyprexa 5mg BID #HTN since patient not tolerating PO HTN meds; will give lopressor 5 q4H with holding parameters (hr < 60, sys BP <120) monitor hemodynamics #ESRD getting HD again this AM Dr. Reis on board monitor electrolytes #DM ISS BGMS ACHS #COPD not currently in exacerbation c/w home inhalers F/E/N not on fluids monitor electrolytes diabetic diet Problem List - Problems (1) Altered mental status, unspecified Code(s): R41.82 - ALTERED MENTAL STATUS, UNSPECIFIED (2) ESRD (end stage renal disease) Code(s): N18.6 - END STAGE RENAL DISEASE Visit type - Emergency Visit Emergency Visit: Yes ED Registration Date: 05/27/18 Care time: The patient presented to the Emergency Department on the above date and was hospitalized for further evaluation of their emergent condition. - New Patient This patient is new to me today: No - Critical Care Critical Care patient: No
--- NOTE | 2018-06-02 08:39 | PN ---
Teaching Attending Note Name of Resident: Basia Stevens ATTENDING PHYSICIAN STATEMENT I saw and evaluated the patient. I reviewed the resident's note and discussed the case with the resident. I agree with the resident's findings and plan as documented. SUBJECTIVE: Patient is back agitated and confused. OBJECTIVE: Vital Signs Temperature 99.2 F 06/02/18 05:43 Pulse Rate 83 06/02/18 05:43 Respiratory Rate 18 06/02/18 05:43 Blood Pressure 139/61 06/02/18 05:43 O2 Sat by Pulse Oximetry (%) 100 06/01/18 21:00 GENERAL: The patient is awake, agitated; confused aain EYES:PEERLA: EOMI; no scleral icterus. NECK: no JVD: no lymphadenopathy LUNGS: decreased BS at the basis HEART: Regular rate and rhythm, S1, S2 without murmur, rub or gallop. ABDOMEN: Soft, NT, ND, normoactive bowel sounds, no guarding, no rebound, no hepatosplenomegaly, no masses. EXTREMITIES: 2+ pulses, warm, well-perfused, no edema. PSYCH: back to her baseline SKIN: Warm, dry, normal turgor, no rashes or lesions noted CBCD WBC 6.6 K/mm3 (4.0-10.0) 05/30/18 05:30 RBC 4.21 M/mm3 (3.60-5.2) 05/30/18 05:30 Hgb 11.8 GM/dL (10.7-15.3) 05/30/18 05:30 Hct 36.1 % (32.4-45.2) D 05/30/18 05:30 MCV 85.6 fl (80-96) 05/30/18 05:30 MCHC 32.7 g/dl (32.0-36.0) 05/30/18 05:30 RDW 16.2 % (11.6-15.6) H 05/30/18 05:30 Plt Count 112 K/MM3 (134-434) L 05/30/18 05:30 MPV 9.9 fl (7.5-11.1) D 05/30/18 05:30 CMP Sodium 141 mmol/L (136-145) 05/30/18 05:30 Potassium 4.5 mmol/L (3.5-5.1) 05/30/18 05:30 Chloride 103 mmol/L (98-107) 05/30/18 05:30 Carbon Dioxide 30 mmol/L (21-32) 05/30/18 05:30 Anion Gap 8 MMOL/L (8-16) 05/30/18 05:30 BUN 40 mg/dL (7-18) H 05/30/18 05:30 Creatinine 7.1 mg/dL (0.55-1.3) H 05/30/18 05:30 Creat Clearance w eGFR 5.45 (>60) 05/30/18 05:30 Random Glucose 88 mg/dL (74-106) 05/30/18 05:30 Calcium 7.8 mg/dL (8.5-10.1) L 05/30/18 05:30 Total Bilirubin 0.8 mg/dL (0.2-1) 05/28/18 06:30 AST 19 U/L (15-37) 05/28/18 06:30 ALT 14 U/L (13-61) 05/28/18 06:30 Alkaline Phosphatase 71 U/L (45-117) 05/28/18 06:30 Total Protein 6.9 g/dl (6.4-8.2) 05/28/18 06:30 Albumin 3.9 g/dl (3.4-5.0) 05/28/18 06:30 CARDIAC ENZYMES Creatine Kinase 74 U/L (26-192) 05/27/18 13:59 Troponin I < 0.02 ng/ml (0.00-0.05) 05/27/18 13:59 Current Medications Generic Name Dose Route Start Last Admin Trade Name Nileq PRN Reason Stop Dose Admin Acetaminophen 650 mg 05/29/18 13:45 05/30/18 10:49 Tylenol - PO 650 mg Q6H PRN Administration Fever Or Pain Albuterol Sulfate 2 puff 05/28/18 00:00 06/02/18 05:28 Ventolin Hfa Inhaler - IH 2 puff Q6HPO [facility] Administration Albuterol/Ipratropium 1 amp 05/27/18 21:23 06/02/18 01:29 Duoneb - NEB 1 amp Q4H PRN Administration SHORTNESS OF BREATH Amlodipine Besylate 10 mg 05/27/18 22:00 06/01/18 21:12 Norvasc - PO 10 mg HS [facility] Administration Heparin Sodium (Porcine) 5,000 unit 05/27/18 22:00 06/01/18 21:14 Heparin - SQ 5,000 unit BID [facility] Administration Hydralazine HCl 37.5 mg 05/28/18 10:00 06/01/18 17:33 Apresoline - PO 37.5 mg BID@1000,1800 [facility] Administration Sodium Chloride 250 mls @ 3,000 mls/hr 06/01/18 13:54 Normal Saline - IV 06/02/18 13:54 PRN PRN Hypotension during Dialysis Insulin Aspart 1 vial 05/27/18 22:00 06/02/18 06:03 Novolog Vial Sliding Scale - SQ Not Given ACHS [facility] Protocol Isosorbide Mononitrate 60 mg 05/29/18 10:00 06/01/18 10:23 Imdur - PO Not Given DAILY [facility] Losartan Potassium 50 mg 05/28/18 10:00 06/01/18 10:23 Cozaar - PO Not Given DAILY [facility] Metoprolol Tartrate 50 mg 05/27/18 22:00 06/01/18 21:12 Lopressor - PO 50 mg BID [facility] Administration Metoprolol Tartrate 5 mg 05/28/18 14:15 06/01/18 10:31 Lopressor Injection - IVPB 5 mg Q4H PRN Administration HYPERTENSION Olanzapine 5 mg 06/01/18 22:00 06/01/18 21:12 Zyprexa - PO 5 mg BID [facility] Administration Pantoprazole Sodium 20 mg 05/28/18 10:00 06/01/18 10:23 Protonix - PO Not Given DAILY [facility] Ranolazine 500 mg 05/27/18 22:00 06/01/18 21:12 Ranexa - PO 500 mg BID [facility] Administration Rosuvastatin Calcium 10 mg 05/27/18 22:00 06/01/18 21:13 Crestor - PO 10 mg HS [facility] Administration Fluticasone/Salmeterol 1 puff 05/27/18 22:00 06/01/18 21:22 Advair 100mcg/50mcg - IH 1 puff BID [facility] Administration Home Medications Medication Instructions Recorded Albuterol Sulfate Inhaler - 2 inh PO Q6H 05/27/18 [Ventolin HFA Inhaler -] Amlodipine Besylate 10 mg PO HS 05/27/18 Isosorbide Mononitrate [Imdur -] 60 mg PO DAILY 05/27/18 Losartan Potassium 50 mg PO DAILY 05/27/18 Metoprolol Tartrate 50 mg PO BID 05/27/18 Rosuvastatin [Crestor -] 20 mg PO HS 05/27/18 Salmeterol/Fluticasone [Advair 1 inh PO BID 05/27/18 100Mcg/50Mcg -] Sevelamer Carbonate [Renvela -] 800 mg PO TID 05/27/18 MRI: slight dural thickening/hyperdensity over R tentorium --stable; no acute finding ASSESSMENT AND PLAN: Patient is an 88 y/o female with PMHx of ESRD (m/w/f) COPD, HTN, DM was sent in from dialysis after she was found to be very agitated/altered and combative. #AMS due metabolic encephalopathy: patient is agitated again, psych consult appreciated, started on Zyprxa 2.5mg po bid as per psych. #HTN continue her po meds. #ESRD (MWF) irvin on board #T2DM sliding scale #COPD continue home meds. 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
[2018-06-02 08:55] LABS: ANION GAP 12 MMOL/L (8-16); BLOOD UREA NITROGEN 53 mg/dL (7-18); CALCIUM 9.1 mg/dL (8.5-10.1); CHLORIDE 103 mmol/L (98-107); CO2 24 mmol/L (21-32); GLUCOSE,RANDOM 87 mg/dL (74-106); MAGNESIUM 2.2 mg/dL (1.8-2.4); PHOSPHOROUS 5.2 mg/dL (2.5-4.9); SODIUM 139 mmol/L (136-145)
[2018-06-02 08:58] LABS: HEMATOCRIT 41.3 % (32.4-45.2); HEMOGLOBIN 13.1 GM/dL (10.7-15.3); MCH 27.4 pg (25.7-33.7); MCHC 31.7 g/dl (32.0-36.0); MEAN CELL VOLUME 86.4 fl (80-96); MEAN PLT VOLUME 9.8 fl (7.5-11.1); PLATELET COUNT 226 K/MM3 (134-434); RBC 4.78 M/mm3 (3.60-5.2); RDW 16.1 % (11.6-15.6); WHITE BLOOD COUNT 7.2 K/mm3 (4.0-10.0)
[2018-06-02 09:23] LABS: CREATININE 7.7 mg/dL (0.55-1.3)
[2018-06-02] MEDS ORDERED: LORazepam 2 MG/ML SDV VIAL IVPUSH ONE (10:29)
[2018-06-02 10:58] LABS: ANISOCYTOSIS 1+; MACROCYTOSIS 0; PLATELET ESTIMATE NORMAL; TARGET CELLS 1+; TEAR DROP CELLS 1+
[2018-06-02] MEDS: FLUTICASONE/SALMETEROL 100 MCG/50 MCG DISKUS IH SCH ×2 (13:20→22:40)
[2018-06-02] MEDS: hydrALAZINE HCL 25 MG TABLET (FP) PO SCH ×2 (13:20→17:26)
[2018-06-02] MEDS: OLANZapine 5 MG TABLET PO SCH ×2 (13:22→22:31)
[2018-06-02] MEDS: HEPARIN NA (PORCINE) 5,000 UNITS/ML 1ML VIAL SQ SCH ×2 (13:22→22:40)
[2018-06-02] MEDS: METOPROLOL TARTRATE 50 MG TABLET (FP) PO SCH ×2 (13:22→22:32)
[2018-06-02] MEDS: RANOLAZINE E.R. 500 MG TABLET (FP) PO SCH ×2 (13:22→22:32)
--- NOTE | 2018-06-02 13:58 | PN ---
Progress Note, Physician History of Present Illness: Pt seen and examined at bedside. She is tolerating HD. SHe has family at bedside. She appears calm. - Current Medication List Current Medications: Active Medications Acetaminophen (Tylenol -) 650 mg PO Q6H PRN PRN Reason: Fever Or Pain Last Admin: 05/30/18 10:49 Dose: 650 mg Albuterol Sulfate (Ventolin Hfa Inhaler -) 2 puff IH Q6HPO [facility] Last Admin: 06/02/18 13:53 Dose: Not Given Albuterol/Ipratropium (Duoneb -) 1 amp NEB Q4H PRN PRN Reason: SHORTNESS OF BREATH Last Admin: 06/02/18 09:01 Dose: 1 amp Amlodipine Besylate (Norvasc -) 10 mg PO HS [facility] Last Admin: 06/01/18 21:12 Dose: 10 mg Heparin Sodium (Porcine) (Heparin -) 5,000 unit SQ BID [facility] Last Admin: 06/02/18 13:22 Dose: Not Given Hydralazine HCl (Apresoline -) 37.5 mg PO BID@1000,1800 [facility] Last Admin: 06/02/18 13:20 Dose: Not Given Sodium Chloride (Normal Saline -) 250 mls @ 3,000 mls/hr IV PRN PRN PRN Reason: Hypotension during Dialysis Stop: 06/02/18 13:54 Insulin Aspart (Novolog Vial Sliding Scale -) 1 vial SQ ACHS [facility]; Protocol Last Admin: 06/02/18 13:23 Dose: Not Given Isosorbide Mononitrate (Imdur -) 60 mg PO DAILY [facility] Last Admin: 06/01/18 10:23 Dose: Not Given Losartan Potassium (Cozaar -) 50 mg PO DAILY [facility] Last Admin: 06/01/18 10:23 Dose: Not Given Metoprolol Tartrate (Lopressor -) 50 mg PO BID [facility] Last Admin: 06/02/18 13:22 Dose: Not Given Metoprolol Tartrate (Lopressor Injection -) 5 mg IVPB Q4H PRN PRN Reason: HYPERTENSION Last Admin: 06/01/18 10:31 Dose: 5 mg Olanzapine (Zyprexa -) 5 mg PO BID [facility] Last Admin: 06/02/18 13:22 Dose: Not Given Pantoprazole Sodium (Protonix -) 20 mg PO DAILY [facility] Last Admin: 06/01/18 10:23 Dose: Not Given Ranolazine (Ranexa -) 500 mg PO BID [facility] Last Admin: 06/02/18 13:22 Dose: Not Given Rosuvastatin Calcium (Crestor -) 10 mg PO HS [facility] Last Admin: 06/01/18 21:13 Dose: 10 mg Fluticasone/Salmeterol (Advair 100mcg/50mcg -) 1 puff IH BID [facility] Last Admin: 06/02/18 13:20 Dose: Not Given - Objective Vital Signs: Vital Signs Temperature 98 F 06/02/18 10:35 Pulse Rate 100 H 06/02/18 13:10 Respiratory Rate 18 06/02/18 13:10 Blood Pressure 178/80 H 06/02/18 13:10 O2 Sat by Pulse Oximetry (%) 94 L 06/02/18 09:00 Constitutional: Yes: Calm Eyes: Yes: Conjunctiva Clear HENT: Yes: Atraumatic Cardiovascular: Yes: S1, S2 Respiratory: Yes: On Nasal O2 Gastrointestinal: Yes: Normal Bowel Sounds, Soft Genitourinary: Yes: WNL Musculoskeletal: Yes: WNL Edema: No Integumentary: Yes: WNL Neurological: Yes: Confusion Labs: CBC, BMP 06/02/18 06:30 06/02/18 06:30 INR, PTT INR 0.87 (0.83-1.09) 05/28/18 06:30 Problem List - Problems (1) Altered mental status, unspecified Code(s): R41.82 - ALTERED MENTAL STATUS, UNSPECIFIED (2) ESRD (end stage renal disease) Code(s): N18.6 - END STAGE RENAL DISEASE Assessment/Plan Current Medications Generic Name Dose Route Start Last Admin Trade Name Freq PRN Reason Stop Dose Admin Acetaminophen 650 mg 05/29/18 13:45 05/30/18 10:49 Tylenol - PO 650 mg Q6H PRN Administration Fever Or Pain Albuterol Sulfate 2 puff 05/28/18 00:00 06/02/18 13:53 Ventolin Hfa Inhaler - IH Not Given Q6HPO [facility] Albuterol/Ipratropium 1 amp 05/27/18 21:23 06/02/18 09:01 Duoneb - NEB 1 amp Q4H PRN Administration SHORTNESS OF BREATH Amlodipine Besylate 10 mg 05/27/18 22:00 06/01/18 21:12 Norvasc - PO 10 mg HS [facility] Administration Heparin Sodium (Porcine) 5,000 unit 05/27/18 22:00 06/02/18 13:22 Heparin - SQ Not Given BID [facility] Hydralazine HCl 37.5 mg 05/28/18 10:00 06/02/18 13:20 Apresoline - PO Not Given BID@1000,1800 [facility] Sodium Chloride 250 mls @ 3,000 mls/hr 06/01/18 13:54 Normal Saline - IV 06/02/18 13:54 PRN PRN Hypotension during Dialysis Insulin Aspart 1 vial 05/27/18 22:00 06/02/18 13:23 Novolog Vial Sliding Scale - SQ Not Given ACHS [facility] Protocol Isosorbide Mononitrate 60 mg 05/29/18 10:00 06/01/18 10:23 Imdur - PO Not Given DAILY [facility] Losartan Potassium 50 mg 05/28/18 10:00 06/01/18 10:23 Cozaar - PO Not Given DAILY [facility] Metoprolol Tartrate 50 mg 05/27/18 22:00 06/02/18 13:22 Lopressor - PO Not Given BID [facility] Metoprolol Tartrate 5 mg 05/28/18 14:15 06/01/18 10:31 Lopressor Injection - IVPB 5 mg Q4H PRN Administration HYPERTENSION Olanzapine 5 mg 06/01/18 22:00 06/02/18 13:22 Zyprexa - PO Not Given BID [facility] Pantoprazole Sodium 20 mg 05/28/18 10:00 06/01/18 10:23 Protonix - PO Not Given DAILY [facility] Ranolazine 500 mg 05/27/18 22:00 06/02/18 13:22 Ranexa - PO Not Given BID [facility] Rosuvastatin Calcium 10 mg 05/27/18 22:00 06/01/18 21:13 Crestor - PO 10 mg HS [facility] Administration Fluticasone/Salmeterol 1 puff 05/27/18 22:00 06/02/18 13:20 Advair 100mcg/50mcg - IH Not Given BID [facility] Impression 1. ESRD 2. HTN 3. HLD 4. COPD 5. DM 6. pos heb b core 7. confusion with altered mental status 8. anemia Plan - pt tolerating HD - she appears to be calmer today - renal diet - psych recommended to stop benzos and use zyprexa - cxr reviewed
[2018-06-02] MEDS: ISOSORBIDE MONONITRATE 60 MG TAB.SR.24H (FP) PO SCH (14:30)
[2018-06-02] MEDS: LOSARTAN POTASSIUM 50 MG TABLET (FP) PO SCH (14:30)
[2018-06-02] MEDS: PANTOPRAZOLE 20 MG TABLET (FP) PO SCH (14:31)
[2018-06-02] MEDS ORDERED: FUROSEMIDE 40 MG/4 ML INJECTABLE VIAL IVPUSH ONE (18:59)
[2018-06-02] MEDS ORDERED: FUROSEMIDE 40 MG/4 ML INJECTABLE VIAL ONE (19:06)
[2018-06-02] MEDS ORDERED: PT OWN MED DRAWER 7, Y5N ONE (20:37)
[2018-06-02] MEDS: amLODIPine BESYLATE 10 MG TABLET (FP) PO SCH (22:31)
[2018-06-02] MEDS: ROSUVASTATIN CA 10 MG TABLET (FP) PO SCH (22:31)
[2018-06-03] MEDS: ALBUTEROL SO4 8 GM HFA INHALER IH SCH ×4 (00:47→18:07)
[2018-06-03] MEDS: INSULIN SLIDING SCALE (NOVOLOG) 1 VIAL SQ SCH ×3 (06:17→18:05)
[2018-06-03] MEDS ORDERED: FUROSEMIDE 40 MG/4 ML INJECTABLE VIAL IVPUSH ONE (07:30)
[2018-06-03 07:59] LABS: HEMATOCRIT 40.5 % (32.4-45.2); HEMOGLOBIN 12.9 GM/dL (10.7-15.3); MCH 27.3 pg (25.7-33.7); MCHC 31.8 g/dl (32.0-36.0); MEAN CELL VOLUME 85.9 fl (80-96); MEAN PLT VOLUME 8.7 fl (7.5-11.1); PLATELET COUNT 188 K/MM3 (134-434); RBC 4.72 M/mm3 (3.60-5.2); RDW 15.2 % (11.6-15.6); WHITE BLOOD COUNT 5.5 K/mm3 (4.0-10.0)
[2018-06-03 08:27] LABS: ANION GAP 7 MMOL/L (8-16); BLOOD UREA NITROGEN 33 mg/dL (7-18); CALCIUM 8.7 mg/dL (8.5-10.1); CHLORIDE 104 mmol/L (98-107); CO2 34 mmol/L (21-32); CREATININE 5.3 mg/dL (0.55-1.3); GLUCOSE,RANDOM 89 mg/dL (74-106); MAGNESIUM 2.1 mg/dL (1.8-2.4); PHOSPHOROUS 3.8 mg/dL (2.5-4.9); POTASSIUM 4.3 mmol/L (3.5-5.1); SODIUM 144 mmol/L (136-145)
--- NOTE | 2018-06-03 09:09 | PN ---
Physical Exam: SUBJECTIVE: Patient seen and examined at bedside- patient was more calm last night however has been having trouble breathing since dialysis ; she received a neb treatment and 1 dose of 20 mg IV lasix; denies any CP/N/V however endorses dyspnea - = OBJECTIVE: Vital Signs Period Temp Pulse Resp BP Sys/Betancourt Pulse Ox Last 24 Hr 97.8 F-99.2 F 89-114 16-18 133-178/56-89 94 GENERAL: The patient is awake, alert, and fully oriented, in no acute distress. HEAD: Normal with no signs of trauma. EYES: PERRL, extraocular movements intact, sclera anicteric, conjunctiva clear. No ptosis. ENT: Ears normal, nares patent, oropharynx clear without exudates, moist mucous membranes. NECK: Trachea midline, full range of motion, supple. LUNGS: Breath sounds equal, clear to auscultation bilaterally, no wheezes, no crackles, no accessory muscle use. HEART: Regular rate and rhythm, S1, S2 without murmur, rub or gallop. ABDOMEN: Soft, nontender, nondistended, normoactive bowel sounds, no guarding, no rebound, no hepatosplenomegaly, no masses. EXTREMITIES: 2+ pulses, warm, well-perfused, no edema. NEUROLOGICAL: Cranial nerves II through XII grossly intact. Normal speech, gait not observed. PSYCH: Normal mood, normal affect. SKIN: Warm, dry, normal turgor, no rashes or lesions noted Laboratory Results - last 24 hr 06/02/18 06/02/18 06/02/18 06:30 06:30 14:25 WBC 7.2 RBC 4.78 Hgb 13.1 Hct 41.3 MCV 86.4 MCH 27.4 MCHC 31.7 L RDW 16.1 H Plt Count 226 D MPV 9.8 Absolute Neuts (auto) 4.7 Neutrophils % No Result Required. Neutrophils % (Manual) 71.0 Band Neutrophils % 4.0 Lymphocytes % No Result Required. Lymphocytes % (Manual) 19.0 Monocytes % (Manual) 4 Eosinophils % (Manual) 0.0 D Basophils % (Manual) 0.0 Myelocytes % (Man) 2 D Promyelocytes % (Man) 0 Blast Cells % (Manual) 0 Nucleated RBC % 0 Metamyelocytes 0 Hypochromia 0 Platelet Estimate Normal Polychromasia 0 Poikilocytosis 0 Anisocytosis 1+ Microcytosis 1+ Macrocytosis 0 Target Cells 1+ Tear Drop Cells 1+ Sodium 139 Potassium 5.0 Chloride 103 Carbon Dioxide 24 Anion Gap 12 BUN 53 H Creatinine 7.7 H* Creat Clearance w eGFR 4.96 POC Glucometer 135 Random Glucose 87 Calcium 9.1 Phosphorus 5.2 H Magnesium 2.2 TSH 1.12 06/02/18 06/02/18 06/03/18 17:30 22:29 05:51 WBC RBC Hgb Hct MCV MCH MCHC RDW Plt Count MPV Absolute Neuts (auto) Neutrophils % Neutrophils % (Manual) Band Neutrophils % Lymphocytes % Lymphocytes % (Manual) Monocytes % (Manual) Eosinophils % (Manual) Basophils % (Manual) Myelocytes % (Man) Promyelocytes % (Man) Blast Cells % (Manual) Nucleated RBC % Metamyelocytes Hypochromia Platelet Estimate Polychromasia Poikilocytosis Anisocytosis Microcytosis Macrocytosis Target Cells Tear Drop Cells Sodium Potassium Chloride Carbon Dioxide Anion Gap BUN Creatinine Creat Clearance w eGFR POC Glucometer 171 209 76 Random Glucose Calcium Phosphorus Magnesium TSH 06/03/18 06/03/18 07:15 07:15 WBC 5.5 RBC 4.72 Hgb 12.9 Hct 40.5 MCV 85.9 MCH 27.3 MCHC 31.8 L RDW 15.2 Plt Count 188 MPV 8.7 D Absolute Neuts (auto) Neutrophils % Neutrophils % (Manual) Band Neutrophils % Lymphocytes % Lymphocytes % (Manual) Monocytes % (Manual) Eosinophils % (Manual) Basophils % (Manual) Myelocytes % (Man) Promyelocytes % (Man) Blast Cells % (Manual) Nucleated RBC % Metamyelocytes Hypochromia Platelet Estimate Polychromasia Poikilocytosis Anisocytosis Microcytosis Macrocytosis Target Cells Tear Drop Cells Sodium 144 Potassium 4.3 Chloride 104 Carbon Dioxide 34 H Anion Gap 7 L BUN 33 H Creatinine 5.3 H Creat Clearance w eGFR 7.64 POC Glucometer Random Glucose 89 Calcium 8.7 Phosphorus 3.8 Magnesium 2.1 TSH Active Medications Generic Name Dose Route Start Last Admin Trade Name Freq PRN Reason Stop Dose Admin Acetaminophen 650 mg 05/29/18 13:45 05/30/18 10:49 Tylenol - PO 650 mg Q6H PRN Administration Fever Or Pain Albuterol Sulfate 2 puff 05/28/18 00:00 06/03/18 06:17 Ventolin Hfa Inhaler - IH Not Given Q6HPO [facility] Albuterol/Ipratropium 1 amp 05/27/18 21:23 06/02/18 19:09 Duoneb - NEB 1 amp Q4H PRN Administration SHORTNESS OF BREATH Amlodipine Besylate 10 mg 05/27/18 22:00 06/02/18 22:31 Norvasc - PO 10 mg HS [facility] Administration Heparin Sodium (Porcine) 5,000 unit 05/27/18 22:00 06/02/18 22:40 Heparin - SQ 5,000 unit BID [facility] Administration Hydralazine HCl 37.5 mg 05/28/18 10:00 06/02/18 17:26 Apresoline - PO 37.5 mg BID@1000,1800 [facility] Administration Sodium Chloride 250 mls @ 3,000 mls/hr 06/01/18 13:54 Normal Saline - IV 06/02/18 13:54 PRN PRN Hypotension during Dialysis Insulin Aspart 1 vial 05/27/18 22:00 06/03/18 06:17 Novolog Vial Sliding Scale - SQ Not Given ACHS [facility] Protocol Isosorbide Mononitrate 60 mg 05/29/18 10:00 06/02/18 14:30 Imdur - PO 60 mg DAILY [facility] Administration Losartan Potassium 50 mg 05/28/18 10:00 06/02/18 14:30 Cozaar - PO 50 mg DAILY [facility] Administration Metoprolol Tartrate 50 mg 05/27/18 22:00 06/02/18 22:32 Lopressor - PO 50 mg BID [facility] Administration Metoprolol Tartrate 5 mg 05/28/18 14:15 06/01/18 10:31 Lopressor Injection - IVPB 5 mg Q4H PRN Administration HYPERTENSION Olanzapine 5 mg 06/01/18 22:00 06/02/18 22:31 Zyprexa - PO 5 mg BID [facility] Administration Pantoprazole Sodium 20 mg 05/28/18 10:00 06/02/18 14:31 Protonix - PO 20 mg DAILY [facility] Administration Ranolazine 500 mg 05/27/18 22:00 06/02/18 22:32 Ranexa - PO 500 mg BID [facility] Administration Rosuvastatin Calcium 10 mg 05/27/18 22:00 06/02/18 22:31 Crestor - PO 10 mg HS [facility] Administration Fluticasone/Salmeterol 1 puff 05/27/18 22:00 06/02/18 22:40 Advair 100mcg/50mcg - IH 1 puff BID [facility] Administration ASSESSMENT/PLAN: 88 y/o female with PMH of ESRD (m/w/f) COPD, HTN, DM was sent in from dialysis after she was found to be very agitated/altered and combative. #AMS pateint is still agitated/combative at times d/c lyrica monitor mental status dr. fuentes saw patient : no benzos; added zyprexa 5mg BID #HTN since patient not tolerating PO HTN meds; will give lopressor 5 q4H with holding parameters (hr < 60, sys BP <120) monitor hemodynamics #ESRD had HD yesterday Dr. Reis on board monitor electrolytes #DM ISS BGMS ACHS #COPD not currently in exacerbation c/w home inhalers F/E/N not on fluids monitor electrolytes diabetic diet Problem List - Problems (1) Altered mental status, unspecified Code(s): R41.82 - ALTERED MENTAL STATUS, UNSPECIFIED (2) ESRD (end stage renal disease) Code(s): N18.6 - END STAGE RENAL DISEASE
[2018-06-03] MEDS: hydrALAZINE HCL 25 MG TABLET (FP) PO SCH ×2 (09:27→18:06)
[2018-06-03] MEDS: ISOSORBIDE MONONITRATE 60 MG TAB.SR.24H (FP) PO SCH (09:27)
[2018-06-03] MEDS: HEPARIN NA (PORCINE) 5,000 UNITS/ML 1ML VIAL SQ SCH (09:27)
[2018-06-03] MEDS: RANOLAZINE E.R. 500 MG TABLET (FP) PO SCH (09:27)
[2018-06-03] MEDS: OLANZapine 5 MG TABLET PO SCH (09:28)
[2018-06-03] MEDS: FLUTICASONE/SALMETEROL 100 MCG/50 MCG DISKUS IH SCH (09:28)
[2018-06-03] MEDS: LOSARTAN POTASSIUM 50 MG TABLET (FP) PO SCH (09:28)
[2018-06-03] MEDS: PANTOPRAZOLE 20 MG TABLET (FP) PO SCH (09:28)
[2018-06-03] MEDS: METOPROLOL TARTRATE 50 MG TABLET (FP) PO SCH (09:28)
--- NOTE | 2018-06-03 11:18 | CONSULT ---
Admitting History and Physical - Primary Care Physician PCP: Yon Carson - Admission History of Present Illness: 88 year old woman with PMH of ESRD on hemodialysis (M/W/F), COPD (on home O2), HTN, NIDDM and diastolic dysfunction admitted from dialysis center because increased confusion/combativeness. MRI (-) acute pathology Apprehensive and agitated- placed on 1:1. Last evening, per report pt tolerated dialysis but was coughing and wheezing was heard on expiration. CXR done and swallowing evaluation placed. Selected Entries 06/01/18 06/01/18 06/01/18 00:00 05:24 18:00 Breakfast Temperature 99 F 99 F 98.1 F 06/01/18 06/02/18 06/02/18 22:00 01:16 05:43 Breakfast Temperature 98.1 F 98.1 F 99.2 F 06/02/18 06/02/18 06/02/18 09:34 09:35 10:00 Breakfast 25% 25% 25% Temperature 06/02/18 06/02/18 06/02/18 10:35 14:34 18:00 Breakfast Temperature 98 F 98 F 97.8 F 06/02/18 06/03/18 06/03/18 22:00 05:54 09:21 Breakfast 75% Temperature 99 F 99.2 F Laboratory Tests 06/02/18 06/03/18 06:30 07:15 WBC 7.2 5.5 History Source: Family Member, Medical Record Limitations to Obtaining History: Clinical Condition, Language Barrier - Past Medical History Cardiovascular: Yes: HTN Pulmonary: Yes: COPD Gastrointestinal: Yes: GERD Renal/: Yes: Renal Inusuff, Hemodialysis, Renal Calculi (maybe- she had flank pain) Endocrine: Yes: Diabetes Mellitus - Past Surgical History Past Surgical History: Yes: AV Fistula/Graft - Smoking History Smoking history: Never smoked Have you smoked in the past 12 months: No Aproximately how many cigarettes per day: 0 - Alcohol/Substance Use Hx Alcohol Use: No History - Admission Reason For Visit: ALTERED MENTAL STATUS - Diagnostics X-ray: Report Reviewed - General Mental Status: Awake and Alert, Able to Follow Commands, Vague, Intermittently Confused Attention: Distractible, Mild Impairment Ability to Follow Directions: Good Head/Neck Control: WFL - Hearing Hearing: Normal Hearing Aide: No With Patient: No Speech Evaluation - Communication Primary Language: SHYANN BERNSTEIN Communication: Yes: Within Normal Limits, Language Barrier Oral Expression Ability: Yes: No Impairment - Speech Production Able to Make Needs Known: Yes: WNL Intelligibility: Yes: WNL - Speech Characteristics Voice Loudness: Normal Voice Pitch: Yes: Normal Voice Phonatory-based Quality: Yes: Normal Speech Pattern: Normal Speech Clarity: < 100% Nasal Resonance: Normal Articulation: Yes: Precise Rate of Speech: Intact - Language/Auditory Comprehension Follows: Yes: 1 Stage Simple Commands - Language/Verbal Expression Able to Respond to Simple Queries: Yes: WNL Able to Communicate Wants and Needs: Yes: WNL Functional Communication Status: Yes: WNL - Swallow Evaluation/Bedside Assessment Current Nutritional Intake: Regular, Thin Liquids Oral Secretions: Yes: WFL Dentition: Yes: Adequate Facial Symmetry at Rest: Symmetrical Facial Symmetry on Retraction: Symmetrical Facial Movement: Controlled Against Resistance Opening: Normal Against Resistance Closing: Normal Pucker Lips: Normal Smile: Normal Lingual Movement: Normal, Symmetric Lingual Speed of Movement: Normal Lingual Movement Strgth Against Opposition: Normal Lingual Movement Characteristics: Normal Velopharyngeal Movement: Normal Laryngeal Elevation: WFL Laryngeal Movement: Able to Palpate Rate of Intake: Impulsive Bolus Size: WFL Labial Seal: WFL Chewing: WFL Oral Prep Time: WFL A-P Transit: WFL Pocketing: None Coughing/Throat Clear: No Change in Voice: No Recommendations - Speech Evaluation, Impression/Plan Impression: Daughters served at informant and engineering [employer]. Intermittently oriented, thought she was in the market but when oriented to hospital, she said she was here all week.Impaired reasoning.Defensive.Paranoid-like. Reported to be more cooperative. - Dysphagia Impressions/Plan Swallowing Skills: WF Dysphagia Impressions: No Impairment *Silent aspiration: cannot be R/O at bedside Dysphagia Treatment Plan: OOB for meals, OOB for 1 h. after meals - Recommendations Diet Consistency: Regular Medication Administration: Whole with water Liquids: Thin Liquids
[2018-06-03 12:17] VITALS: BMI 19.8
[2018-06-03] MEDS ORDERED: SODIUM CHLORIDE 250 ML IV PRN (12:40)
--- NOTE | 2018-06-03 12:40 | PN ---
Progress Note, Physician History of Present Illness: Pt seen and examined at bedside. She is calm but confused. Family at bedside and care discussed with them. - Current Medication List Current Medications: Active Medications Acetaminophen (Tylenol -) 650 mg PO Q6H PRN PRN Reason: Fever Or Pain Last Admin: 05/30/18 10:49 Dose: 650 mg Albuterol Sulfate (Ventolin Hfa Inhaler -) 2 puff IH Q6HPO [facility] Last Admin: 06/03/18 12:05 Dose: Not Given Albuterol/Ipratropium (Duoneb -) 1 amp NEB Q4H PRN PRN Reason: SHORTNESS OF BREATH Last Admin: 06/02/18 19:09 Dose: 1 amp Amlodipine Besylate (Norvasc -) 10 mg PO HS [facility] Last Admin: 06/02/18 22:31 Dose: 10 mg Heparin Sodium (Porcine) (Heparin -) 5,000 unit SQ BID [facility] Last Admin: 06/03/18 09:27 Dose: 5,000 unit Hydralazine HCl (Apresoline -) 37.5 mg PO BID@1000,1800 [facility] Last Admin: 06/03/18 09:27 Dose: 37.5 mg Insulin Aspart (Novolog Vial Sliding Scale -) 1 vial SQ ACHS [facility]; Protocol Last Admin: 06/03/18 11:44 Dose: Not Given Isosorbide Mononitrate (Imdur -) 60 mg PO DAILY [facility] Last Admin: 06/03/18 09:27 Dose: 60 mg Losartan Potassium (Cozaar -) 50 mg PO DAILY [facility] Last Admin: 06/03/18 09:28 Dose: 50 mg Metoprolol Tartrate (Lopressor -) 50 mg PO BID [facility] Last Admin: 06/03/18 09:28 Dose: 50 mg Metoprolol Tartrate (Lopressor Injection -) 5 mg IVPB Q4H PRN PRN Reason: HYPERTENSION Last Admin: 06/01/18 10:31 Dose: 5 mg Olanzapine (Zyprexa -) 5 mg PO BID [facility] Last Admin: 06/03/18 09:28 Dose: 5 mg Pantoprazole Sodium (Protonix -) 20 mg PO DAILY [facility] Last Admin: 06/03/18 09:28 Dose: 20 mg Ranolazine (Ranexa -) 500 mg PO BID [facility] Last Admin: 06/03/18 09:27 Dose: 500 mg Rosuvastatin Calcium (Crestor -) 10 mg PO HS [facility] Last Admin: 06/02/18 22:31 Dose: 10 mg Fluticasone/Salmeterol (Advair 100mcg/50mcg -) 1 puff IH BID [facility] Last Admin: 06/03/18 09:28 Dose: 1 puff - Objective Vital Signs: Vital Signs Temperature 98.9 F 06/03/18 10:00 Pulse Rate 95 H 06/03/18 10:00 Respiratory Rate 20 06/03/18 10:00 Blood Pressure 147/60 06/03/18 10:00 O2 Sat by Pulse Oximetry (%) 94 L 06/02/18 21:00 Constitutional: Yes: Calm Eyes: Yes: Conjunctiva Clear HENT: Yes: Atraumatic Cardiovascular: Yes: S1, S2 Respiratory: Yes: CTA Bilaterally Gastrointestinal: Yes: Soft Genitourinary: Yes: WNL Musculoskeletal: Yes: WNL Edema: No Neurological: Yes: Confusion Labs: CBC, BMP 06/03/18 07:15 06/03/18 07:15 INR, PTT INR 0.87 (0.83-1.09) 05/28/18 06:30 Problem List - Problems (1) Altered mental status, unspecified Code(s): R41.82 - ALTERED MENTAL STATUS, UNSPECIFIED (2) ESRD (end stage renal disease) Code(s): N18.6 - END STAGE RENAL DISEASE Assessment/Plan Current Medications Generic Name Dose Route Start Last Admin Trade Name Freq PRN Reason Stop Dose Admin Acetaminophen 650 mg 05/29/18 13:45 05/30/18 10:49 Tylenol - PO 650 mg Q6H PRN Administration Fever Or Pain Albuterol Sulfate 2 puff 05/28/18 00:00 06/03/18 12:05 Ventolin Hfa Inhaler - IH Not Given Q6HPO [facility] Albuterol/Ipratropium 1 amp 05/27/18 21:23 06/02/18 19:09 Duoneb - NEB 1 amp Q4H PRN Administration SHORTNESS OF BREATH Amlodipine Besylate 10 mg 05/27/18 22:00 06/02/18 22:31 Norvasc - PO 10 mg HS [facility] Administration Heparin Sodium (Porcine) 5,000 unit 05/27/18 22:00 06/03/18 09:27 Heparin - SQ 5,000 unit BID [facility] Administration Hydralazine HCl 37.5 mg 05/28/18 10:00 06/03/18 09:27 Apresoline - PO 37.5 mg BID@1000,1800 [facility] Administration Insulin Aspart 1 vial 05/27/18 22:00 06/03/18 11:44 Novolog Vial Sliding Scale - SQ Not Given ACHS [facility] Protocol Isosorbide Mononitrate 60 mg 05/29/18 10:00 06/03/18 09:27 Imdur - PO 60 mg DAILY [facility] Administration Losartan Potassium 50 mg 05/28/18 10:00 06/03/18 09:28 Cozaar - PO 50 mg DAILY [facility] Administration Metoprolol Tartrate 50 mg 05/27/18 22:00 06/03/18 09:28 Lopressor - PO 50 mg BID [facility] Administration Metoprolol Tartrate 5 mg 05/28/18 14:15 06/01/18 10:31 Lopressor Injection - IVPB 5 mg Q4H PRN Administration HYPERTENSION Olanzapine 5 mg 06/01/18 22:00 06/03/18 09:28 Zyprexa - PO 5 mg BID [facility] Administration Pantoprazole Sodium 20 mg 05/28/18 10:00 06/03/18 09:28 Protonix - PO 20 mg DAILY [facility] Administration Ranolazine 500 mg 05/27/18 22:00 06/03/18 09:27 Ranexa - PO 500 mg BID [facility] Administration Rosuvastatin Calcium 10 mg 05/27/18 22:00 06/02/18 22:31 Crestor - PO 10 mg HS [facility] Administration Fluticasone/Salmeterol 1 puff 05/27/18 22:00 06/03/18 09:28 Advair 100mcg/50mcg - IH 1 puff BID [facility] Administration Impression 1. ESRD 2. HTN 3. HLD 4. COPD 5. DM 6. pos heb b core 7. confusion with altered mental status 8. anemia Plan - next HD tomorrow - she appear calmer - pt now on zyprexa - renal diet - discussed with family - d/c planning, family is not sure if they can care for her at home
--- NOTE | 2018-06-03 14:00 | PN ---
Teaching Attending Note Name of Resident: Basia Stevens ATTENDING PHYSICIAN STATEMENT I saw and evaluated the patient. I reviewed the resident's note and discussed the case with the resident. I agree with the resident's findings and plan as documented. SUBJECTIVE: No events over night . OBJECTIVE: NAD,awake, and alert . calm and cooperative. MMM CV: RRR, no MRG lungs: CTAB Ext: no edema A/P : 87 y/o lady with h/o ESRD on HD MWF, COPD on home O2, GERD, HTN, HLP, DM, and other medical problems who presented with agitation and AMS during HD 1- AMS: likely due to delirium on a back ground of possible early dementia improved after adding zyprexa. cont to hold ativan during Hd cont to hold lyrica full neuropsych eval as out pt 2- ESRD: cont HD as out pt. next one tomorrow 3- HTN: cont [facility] emeds . BP is controlled 4- COPD, cont home inhalers and O2 dispo : DC home with VNS and increased hours of aid. f/u as out pt for full neuropsych eval
--- NOTE | 2018-06-03 14:00 | DS ---
Physical Exam: SUBJECTIVE: Patient seen and examined at bedside- patient was more calm last night however has been having trouble breathing since dialysis ; she received a neb treatment and 1 dose of 20 mg IV lasix; denies any CP/N/V however endorses dyspnea - OBJECTIVE: Vital Signs Period Temp Pulse Resp BP Sys/Betancourt Pulse Ox Last 24 Hr 97.8 F-99.2 F 81-114 16-20 101-157/50-86 94 PHYSICAL EXAM GENERAL: The patient is awake, alert, oriented EYES:PEERLA: EOMI; no scleral icterus . NECK: no JVD; no lymphadenopathy LUNGS: slight crackles at the bases. HEART: Regular rate and rhythm, S1, S2 without murmur, rub or gallop. ABDOMEN: Soft, nontender, nondistended, normoactive bowel sounds, no guarding, no rebound, no hepatosplenomegaly, no masses. EXTREMITIES: 2+ pulses, warm, well-perfused, no edema. PSYCH: more calm today SKIN: Warm, dry, normal turgor, no rashes or lesions noted. LABS Laboratory Results - last 24 hr 06/02/18 06/02/18 06/02/18 14:25 17:30 22:29 WBC RBC Hgb Hct MCV MCH MCHC RDW Plt Count MPV Sodium Potassium Chloride Carbon Dioxide Anion Gap BUN Creatinine Creat Clearance w eGFR POC Glucometer 135 171 209 Random Glucose Calcium Phosphorus Magnesium 06/03/18 06/03/18 06/03/18 05:51 07:15 07:15 WBC 5.5 RBC 4.72 Hgb 12.9 Hct 40.5 MCV 85.9 MCH 27.3 MCHC 31.8 L RDW 15.2 Plt Count 188 MPV 8.7 D Sodium 144 Potassium 4.3 Chloride 104 Carbon Dioxide 34 H Anion Gap 7 L BUN 33 H Creatinine 5.3 H Creat Clearance w eGFR 7.64 POC Glucometer 76 Random Glucose 89 Calcium 8.7 Phosphorus 3.8 Magnesium 2.1 06/03/18 11:40 WBC RBC Hgb Hct MCV MCH MCHC RDW Plt Count MPV Sodium Potassium Chloride Carbon Dioxide Anion Gap BUN Creatinine Creat Clearance w eGFR POC Glucometer 88 Random Glucose Calcium Phosphorus Magnesium Brain MRI: MRI: slight dural thickening/hyperdensity over R tentorium --stable; no acute finding HOSPITAL COURSE: Date of Admission:05/27/18 Patient is an 88 year old woman with PMH of ESRD on hemodialysis (M/W/F), COPD ( on home O2), HTN, NIDDM and diastolic dysfunction who was sent here from dialysis center because she was being combative during dialysis. Per daughter, patient has been confused and more altered over the last 5 days. when she came her BP was elevated but she did not have an elevated WBC, U/A was negative. head CT was negative for any acute pathology- she was seen by neurology who recommedned brain MRI (with results shown above). she remained slightly altered through her stay needing ativan and restraints during HD> she was seen by psych who recommended no benzos and started patient on zyprexa 5 mg BID- patients mental sttaus improved and she was stbale to be dc home. she will be resuming her normal m/w/f HD schedule with more home health aid hours Date of Discharge: 06/03/18 Minutes to complete discharge: 39 Discharge Summary Reason For Visit: ALTERED MENTAL STATUS Condition: Improved - Instructions Diet, Activity, Other Instructions: You came to the emergency room after you were sent in from dialysis for having changes in mental status and behavior. You got an MRI and a cat scan of your head both of which were normal. You were seen by both a neurologist and psychiatrist who started who on a new medication. You had dialysis while in the hospital and your mental status improved and you were stable to be discharged home. Please resume all of your home medications in addition: please take the medication Zyprexa 5mg twice a day EXCEPT: do not continue taking Lyrica Please follow up with Dr. Reis within one week Please follow up with Dr. Breen, the neurologist within one week Please follow up with Dr. Dangelo, the psychiatrist Please resume your normal Friday ,Friday,Friday dialysis schedule *if you begin to experience any changes in behavior/mental status, chest pains, shortness of breath, nausea/vomiting please return to the emergency room immediately please follow up with Dr. Breen , for further neuro psych eval fro dementia follow up with Dr. Dietrich from psych - avoid ativan with dialysis Referrals: Ke Dangelo MD [Staff Physician] - 1 Week Yusef Breen DO [Staff Physician] - 1 Week Zelda Reis MD [Primary Care Provider] - 1 Week Disposition: VNS/HOME HEALTH CARE - Home Medications Comprehensive Discharge Medication List: Ambulatory Orders Albuterol Sulfate Inhaler - [Ventolin HFA Inhaler -] 2 inh PO Q6H 05/27/18 Amlodipine Besylate 10 mg PO HS 05/27/18 Isosorbide Mononitrate [Imdur -] 60 mg PO DAILY 05/27/18 Losartan Potassium 50 mg PO DAILY 05/27/18 Metoprolol Tartrate 50 mg PO BID 05/27/18 Rosuvastatin [Crestor -] 20 mg PO HS 05/27/18 Salmeterol/Fluticasone [Advair 100Mcg/50Mcg -] 1 inh PO BID 05/27/18 Sevelamer Carbonate [Renvela -] 800 mg PO TID 05/27/18 Olanzapine [Zyprexa -] 5 mg PO BID #60 tablet 06/03/18 Problem List - Problems (1) Altered mental status, unspecified Code(s): R41.82 - ALTERED MENTAL STATUS, UNSPECIFIED (2) ESRD (end stage renal disease) Code(s): N18.6 - END STAGE RENAL DISEASE This patient is new to me today: No Emergency Visit: Yes ED Registration Date: 05/27/18 Care time: The patient presented to the Emergency Department on the above date and was hospitalized for further evaluation of their emergent condition. Critical Care patient: No - Discharge Referral Referred to [facility] Med P.C.: No
[2018-06-03 19:12] VITALS: BP 131/61; PULSE 89; TEMP 97.6
== END 2018-06-03 20:26 | disposition home health service (06) | DRG 884 ==
LOC: JER 12:15 → SUPCPDRO 12:15 → JERBED 20:04 → J7W 21:31
PROVIDERS: ADMIT Internal Medicine; ATTEND Internal Medicine
PROC: 5A1D70Z Performance of Urinary Filtration, Intermittent, Less than 6 Hours Per Day (ICD-10-PCS; principal; 2018-06-02)
DX: F03.90 Unspecified dementia, unspecified severity, without behavioral disturbance, psychotic disturbance, mood disturbance, and anxiety (principal); G93.41 Metabolic encephalopathy; N18.6 End stage renal disease; F05 Delirium due to known physiological condition; I67.4 Hypertensive encephalopathy; J98.11 Atelectasis; I12.0 Hypertensive chronic kidney disease with stage 5 chronic kidney disease or end stage renal disease; J44.1 Chronic obstructive pulmonary disease with (acute) exacerbation; R41.0 Disorientation, unspecified; E11.22 Type 2 diabetes mellitus with diabetic chronic kidney disease; Z99.2 Dependence on renal dialysis; R41.82 Altered mental status, unspecified; K21.9 Gastro-esophageal reflux disease without esophagitis; E78.5 Hyperlipidemia, unspecified; D64.9 Anemia, unspecified; D69.6 Thrombocytopenia, unspecified; E83.39 Other disorders of phosphorus metabolism
CPT/HCPCS: 36415; 36600; 70450-TC; 70551-TC; 71045-TC-FY; 80048; 80053; 81003; 82140; 82550; 82607; 82746; 82803; 82962; 83605; 83735; 83880; 84100; 84439; 84443; 84484; 85025; 85027; 85610; 85651; 85730; 86140; 86704; 86706; 86708; 86803; 86850; 86900; 86901; 87040; 87086; 87340; 93005; 93010; 94640; 97116-GP; 97161-GP; 99283-25; J1644; J7030

== ENCOUNTER 2018-06-04 23:58 | Inpatient (IN) | payer OTHER ==
--- NOTE | 2018-06-05 00:14 | PDOC ---
History of Present Illness - General Stated Complaint: DIFFUCULTY BREATHING History Source: Patient Exam Limitations: No Limitations - History of Present Illness Initial Comments: 06/05/18 00:06 88YOF with h/o ESRD on hemodialysis (normally is MWF but recently was admitted and was on /Fri schedule, last tx was this , next scheduled treatment is this Fri), COPD (on home O2 2 LPM), HTN, NIDDM, and diastolic dysfunction who returns to [facility] with continued (and now worsening) SOB similar to that which she had on recent admission. She was discharged on 06/03/18 after admission for delirium, and her daughter states that she became SOB during the admission and this worsened significantly just after she returned home. She has additionally had a wet-sounding cough and began to tire out this evening, which prompted them to come back to the hospital. The daughter needed to give her Lasix 20 mg which they had a stock of at home (but patient does not regularly take this). No f/c/n/v/d/c, dysuria, chest pain, abdominal pain, swelling, etc. Patient is DNR (no chest compressions) but she is not DNI (family states she would want intubation if necessary). Past History - Past Medical History Allergies/Adverse Reactions: Allergies Allergy/AdvReac Type Severity Reaction Status Date / Time egg AdvReac Vomiting Verified 05/27/18 12:48 Home Medications: Ambulatory Orders Albuterol Sulfate Inhaler - [Ventolin HFA Inhaler -] 2 inh PO Q6H 05/27/18 Amlodipine Besylate 10 mg PO HS 05/27/18 Isosorbide Mononitrate [Imdur -] 60 mg PO DAILY 05/27/18 Losartan Potassium 50 mg PO DAILY 05/27/18 Metoprolol Tartrate 50 mg PO BID 05/27/18 Rosuvastatin [Crestor -] 20 mg PO HS 05/27/18 Salmeterol/Fluticasone [Advair 100Mcg/50Mcg -] 1 inh PO BID 05/27/18 Sevelamer Carbonate [Renvela -] 800 mg PO TID 05/27/18 Olanzapine [Zyprexa -] 5 mg PO BID #60 tablet 06/03/18 Anemia: Yes Asthma: Yes Cancer: No Cardiac Disorders: No CVA: Yes COPD: Yes (home o2) CHF: Yes Dementia: No Diabetes: Yes GI Disorders: Yes (GERD) Disorders: Yes HTN: Yes Hypercholesterolemia: Yes Kidney Stones: Yes Liver Disease: No Seizures: No Thyroid Disease: No - Surgical History Abdominal Surgery: No Appendectomy: No Cardiac Surgery: No Cholecystectomy: No Lung Surgery: No Neurologic Surgery: Yes (CRANIOTOMY 10YEARS AGO) Orthopedic Surgery: No - Immunization History Immunization Up to Date: Yes - Suicide/Smoking/Psychosocial Hx Smoking History: Never smoked Have you smoked in the past 12 months: No Number of Cigarettes Smoked Daily: 0 Cigars Per Day: 0 Hx Alcohol Use: No Drug/Substance Use Hx: No Substance Use Type: None Hx Substance Use Treatment: No Review of Systems - Review of Systems Able to Perform ROS?: Yes Comments:: 06/05/18 00:14 GEN: no fever, chills, malaise, generalized weakness, or weight change HEENT: no ear pain, sore throat, vision change, or eye pain CV: no chest pain, palpitations, lightheadedness, syncope, or edema RESP: cough, wheezing, SOB GI: no abdominal pain, nausea, vomiting, diarrhea, constipation, or white/black/ bloody stool : no dysuria, hematuria, incontinence, retention, bleeding, or discharge MSK: no neck/back pain, muscle weakness/pain, or joint swelling/pain NEURO: no headache, seizure, vertigo, numbness, tingling, or focal weakness PSYCH: no substance use, no behavior change SKIN: no jaundice, no rash ROS otherwise negative except as noted in HPI *Physical Exam - Vital Signs Initial Vital Signs Temp Pulse Resp BP Pulse Ox 99.8 F H 101 H 19 162/71 100 06/05/18 00:15 06/05/18 00:15 06/05/18 00:15 06/05/18 00:15 06/05/18 00:15 - Physical Exam Comments: GENERAL: elderly, [id number]-voominll and daughter translates, on venti-mask and sitting upright straight, not tripoding HEENT: PERRLA, EOMI, moist mucous membranes NECK/BACK: no spinal stepoff or deformity, no hematoma, neck supple CARDIOVASCULAR: regular rate/rhythm, normal S1S2, no MGR, capillary refill <2 seconds, extremities wwp, no edema LUNGS/RESPIRATORY: tachypneic, 3 word sentences, occasional wet cough with poor force, b/l mild wheezes with poor air movement, diffuse crackles GI/ABDOMEN: symmetric [id number], normoactive BS, soft, no midline pulsatile masses, no organomegaly : normal external appearance, no lesions, no swelling, non-malodorous EXTREMITIES: no muscle atrophy, no acute deformity, no edema SKIN: warm and dry, no pallor, no jaundice, no rash, no bruising, no skin breakdown, no cuts NEUROLOGICAL: CN II-XII grossly intact, no obvious facial droop, moving all extremities Heart Score/ECG Review #1 06/05/18 06:05 Sinus rhythm, rate 100, normal axis, mild prolonged EMy=[id number], no MARY KAY, meets LVH criteria ED Treatment Course - LABORATORY CBC & Chemistry Diagram: 06/05/18 10:34 06/05/18 10:34 Medical Decision Making - Medical Decision Making 06/05/18 00:29 Pt with h/o CHF and ESRD and COPD who p/w SOB, cough, orthopnea same as their prior CHF. Initial Vital Signs Temp Pulse Resp BP Pulse Ox 99.8 F H 101 H 19 162/71 100 06/05/18 00:15 06/05/18 00:15 06/05/18 00:15 06/05/18 00:15 06/05/18 00:15 Exam: As noted in Physical Exam section. DDX IBNLT: pulmonary edema, CHF, volume overload from under-dialysis, COPD, PNA/ bronchitis, anemia, ACS, cardiomyopathy, PE, malignancy (e.g. causing pericardial effusion or vascular shunt), other infection, pulmonary HTN, etc. W/U ordered: CBCD CMP Mg Phos Troponin CK CKMB BNP Blood Gas UA UCx EKG CXR TX ordered: O2, BiPAP, Pt positioned with head of bed up EKG: Reviewed; results as noted in ECG Review section. RAD/CHEST X-RAY PORTABLE* Chest: Shortness of breath Single AP view of the chest is submitted. Since the prior study of 06/02/2018 there are progressive bibasilar infiltrates. Laboratory Tests 06/05/18 06/05/18 06/05/18 00:30 00:30 00:30 WBC 10.8 H RBC 4.38 Hgb 12.3 Hct 37.2 MCV 85.0 MCH 28.0 MCHC 32.9 RDW 15.9 H Plt Count 209 MPV 9.4 Absolute Neuts (auto) 9.7 H Neutrophils % 89.9 H Lymphocytes % 3.9 L D Monocytes % 6.0 Eosinophils % 0.0 D Basophils % 0.2 Nucleated RBC % 0 PT with INR 10.70 INR 0.91 PTT (Actin FS) 30.9 VBG pH 7.34 POC VBG pCO2 59.6 H POC VBG pO2 42.1 H VBG HCO3 31.6 H VBG O2 Sat (Claudia) 70.4 VBG Base Excess 4.8 H Sodium Potassium Chloride Carbon Dioxide Anion Gap BUN Creatinine Creat Clearance w eGFR Random Glucose Calcium Phosphorus Magnesium Total Bilirubin AST ALT Alkaline Phosphatase Creatine Kinase Troponin I Total Protein Albumin Blood Type Antibody Screen 06/05/18 06/05/18 00:30 00:30 WBC RBC Hgb Hct MCV MCH MCHC RDW Plt Count MPV Absolute Neuts (auto) Neutrophils % Lymphocytes % Monocytes % Eosinophils % Basophils % Nucleated RBC % PT with INR INR PTT (Actin FS) VBG pH POC VBG pCO2 POC VBG pO2 VBG HCO3 VBG O2 Sat (Claudia) VBG Base Excess Sodium 141 Potassium 5.4 H Chloride 105 Carbon Dioxide 32 Anion Gap 4 L BUN 53 H Creatinine 8.3 H* Creat Clearance w eGFR 4.55 Random Glucose 204 H Calcium 8.8 Phosphorus 1.8 L Magnesium 1.8 Total Bilirubin 0.6 AST 25 ALT 19 Alkaline Phosphatase 70 Creatine Kinase 50 Troponin I < 0.02 Total Protein 7.3 Albumin 3.3 L Blood Type A POSITIVE Antibody Screen Negative Reassessment: Patient appears more comfortable still on BiPAP. ADMIT The Pt is unsafe for discharge at this time. They require further hospital observation, workup, and treatment. Microblog sent to [facility] for admission. Blank Decision to Admit order is placed per ED protocol. 06/05/18 03:54 Spoke with admitting team cordage sales representative Escobar Kelley, in agreement Pt to be admitted. Decision to Admit order corrected with admitting team covering attendings name , Dr. Schwarz. *DC/Admit/Observation/Transfer Diagnosis at time of Disposition: Shortness of breath, Generalized weakness - Discharge Dispostion Condition at time of disposition: Guarded Decision to Admit order: Yes - Referrals - Patient Instructions - Post Discharge Activity
[2018-06-05 00:50] LABS: BASO % 0.2 % (0-2.0); HEMATOCRIT 37.2 % (32.4-45.2); HEMOGLOBIN 12.3 GM/dL (10.7-15.3); LYMPH % 3.9 % (8-40); MCHC 32.9 g/dl (32.0-36.0); MEAN PLT VOLUME 9.4 fl (7.5-11.1); NEUT % 89.9 % (42.8-82.8); PLATELET COUNT 209 K/MM3 (134-434); RBC 4.38 M/mm3 (3.60-5.2); RDW 15.9 % (11.6-15.6); VENOUS PC02 59.6 mmHg (41-51); VENOUS PH 7.34 (7.31-7.41); VENOUS PO2 42.1 mmHg (30-40); WHITE BLOOD COUNT 10.8 K/mm3 (4.0-10.0)
[2018-06-05 01:05] LABS: INR 0.91 (0.83-1.09); PROTHROMBIN TIME (PATIENT) 10.7 SEC (9.7-13.0)
[2018-06-05 01:08] LABS: ACTIVATED PTT 30.9 SECONDS (25.2-36.5)
[2018-06-05 01:33] LABS: ALBUMIN 3.3 g/dl (3.4-5.0); ALK PHOS 70 U/L (45-117); ANION GAP 4 MMOL/L (8-16); BILIRUBIN,TOTAL 0.6 mg/dL (0.2-1); BLOOD UREA NITROGEN 53 mg/dL (7-18); CALCIUM 8.8 mg/dL (8.5-10.1); CHLORIDE 105 mmol/L (98-107); CO2 32 mmol/L (21-32); GLUCOSE,RANDOM 204 mg/dL (74-106); MAGNESIUM 1.8 mg/dL (1.8-2.4); PHOSPHOROUS 1.8 mg/dL (2.5-4.9); POTASSIUM 5.4 mmol/L (3.5-5.1); SGOT/AST 25 U/L (15-37); SGPT/ALT 19 U/L (13-61); SODIUM 141 mmol/L (136-145); TOT PROT 7.3 g/dl (6.4-8.2)
[2018-06-05 01:38] LABS: CREATININE 8.3 mg/dL (0.55-1.3)
--- NOTE | 2018-06-05 02:03 | PDOC ---
Attending Attestation - Resident Resident Name: Lisa Crockett - ED Attending Attestation I have performed the following: I have examined & evaluated the patient, The case was reviewed & discussed with the resident, I agree w/resident's findings & plan, Exceptions are as noted - HPI HPI: 06/05/18 07:18 88F pmh ESRD on HD TTS, COPD, DM, HTN, here after being discharged from inpatient on 06/03/18. C/o sob and productive cough. - Physicial Exam PE: 06/05/18 07:19 Lungs good air movement, increased wob crackles at bases of lungs R>L - Medical Decision Making 06/05/18 07:20 Consider failure, new infection, HCAP? f/u labs, cxr RLL pna? admit for HCAP
[2018-06-05] MEDS ORDERED: ALBUTEROL SO4 2.5/IPRATROPIUM 0.5 INH SOL 3 ML VIAL.NEB. NEB ONE ×3 (03:19→17:21)
--- NOTE | 2018-06-05 04:16 | HP ---
CHIEF COMPLAINT: SOB , cough green sputum PCP:Dr. Garcia HISTORY OF PRESENT ILLNESS: 88YOF with h/o ESRD on hemodialysis (normally is MWF but recently was admitted and was on /Fri schedule, last tx was this , next scheduled treatment is this Fri), COPD (on home O2 2 LPM), HTN, NIDDM, and diastolic dysfunction who returns to [facility] with continued (and now worsening) SOB similar to that which she had on recent admission. She was discharged on 06/03/18 after admission for delirium, and her daughter states that she became SOB during the admission and this worsened significantly just after she returned home. She has additionally had a wet-sounding cough and began to tire out this evening, which prompted them to come back to the hospital. The daughter needed to give her Lasix 20 mg which they had a stock of at home (but patient does not regularly take this). No f/c/n/v/d/c, dysuria, chest pain, abdominal pain, swelling, etc. Patient is DNR (no chest compressions) but she is not DNI (family states she would want intubation if necessary). pt denies using any zeprexa since dc and denies any psychosis begavior but they are using Ativan PRN at home ER course was notable for: (1)CXR (2)cbc, cmp (3)Duoneb Recent Travel: denies PAST MEDICAL HISTORY: as per HPI PAST SURGICAL HISTORY: AV fistula Social History: Smoking:denies Alcohol:denies Drugs: denies Family History: Allergies egg Adverse Reaction (Verified 05/27/18 12:48) Vomiting HOME MEDICATIONS: Home Medications Medication Instructions Recorded Albuterol Sulfate Inhaler - 2 inh PO Q6H 05/27/18 [Ventolin HFA Inhaler -] Amlodipine Besylate 10 mg PO HS 05/27/18 Isosorbide Mononitrate [Imdur -] 60 mg PO DAILY 05/27/18 Losartan Potassium 50 mg PO DAILY 05/27/18 Metoprolol Tartrate 50 mg PO BID 05/27/18 Rosuvastatin [Crestor -] 20 mg PO HS 05/27/18 Salmeterol/Fluticasone [Advair 1 inh PO BID 05/27/18 100Mcg/50Mcg -] Sevelamer Carbonate [Renvela -] 800 mg PO TID 05/27/18 Olanzapine [Zyprexa -] 5 mg PO BID #60 tablet 06/03/18 REVIEW OF SYSTEMS: cough, wheezing, SOB CONSTITUTIONAL: Absent: fever, chills, diaphoresis, generalized weakness, malaise, loss of appetite, weight change HEENT: Absent: rhinorrhea, nasal congestion, throat pain, throat swelling, difficulty swallowing, mouth swelling, ear pain, eye pain, visual changes CARDIOVASCULAR: Absent: chest pain, syncope, palpitations, irregular heart rate, lightheadedness , peripheral edema RESPIRATORY: Absent: cough, shortness of breath, dyspnea with exertion, orthopnea, wheezing, stridor, hemoptysis GASTROINTESTINAL: Absent: abdominal pain, abdominal distension, nausea, vomiting, diarrhea, constipation, melena, hematochezia GENITOURINARY: Absent: dysuria, frequency, urgency, hesitancy, hematuria, flank pain, genital pain MUSCULOSKELETAL: Absent: myalgia, arthralgia, joint swelling, back pain, neck pain SKIN: Absent: rash, itching, pallor HEMATOLOGIC/IMMUNOLOGIC: Absent: easy bleeding, easy bruising, lymphadenopathy, frequent infections ENDOCRINE: Absent: unexplained weight gain, unexplained weight loss, heat intolerance, cold intolerance NEUROLOGIC: Absent: headache, focal weakness or paresthesias, dizziness, unsteady gait, seizure, mental status changes, bladder or bowel incontinence PSYCHIATRIC: Absent: anxiety, depression, suicidal or homicidal ideation, hallucinations. PHYSICAL EXAMINATION Vital Signs - 24 hr 06/05/18 06/05/18 00:15 00:30 Temperature 99.8 F H Pulse Rate 101 H Respiratory 19 Rate Blood Pressure 162/71 O2 Sat by Pulse 100 97 Oximetry (%) GENERAL: The patient is awake ,not agitated; EYES:PEERLA: EOMI; no scleral icterus. NECK: no JVD: no lymphadenopathy LUNGS: coarse breath sound at ai bases , Right base with crackles HEART: Sinus tachy , S1, S2, 2/6 systolic murmur LUSB , no rub or gallop. ABDOMEN: Soft, NT, ND, normoactive bowel sounds, EXTREMITIES: 2+ pulses, warm, well-perfused, no edema. PSYCH: cooperative SKIN: Warm, dry, Laboratory Results - last 24 hr 06/05/18 06/05/18 06/05/18 00:30 00:30 00:30 WBC 10.8 H RBC 4.38 Hgb 12.3 Hct 37.2 MCV 85.0 MCH 28.0 MCHC 32.9 RDW 15.9 H Plt Count 209 MPV 9.4 Absolute Neuts (auto) 9.7 H Neutrophils % 89.9 H Lymphocytes % 3.9 L D Monocytes % 6.0 Eosinophils % 0.0 D Basophils % 0.2 Nucleated RBC % 0 PT with INR 10.70 INR 0.91 PTT (Actin FS) 30.9 VBG pH 7.34 POC VBG pCO2 59.6 H POC VBG pO2 42.1 H VBG HCO3 31.6 H VBG O2 Sat (Claudia) 70.4 VBG Base Excess 4.8 H Sodium Potassium Chloride Carbon Dioxide Anion Gap BUN Creatinine Creat Clearance w eGFR Random Glucose Calcium Phosphorus Magnesium Total Bilirubin AST ALT Alkaline Phosphatase Creatine Kinase Troponin I Total Protein Albumin Blood Type Antibody Screen 06/05/18 06/05/18 00:30 00:30 WBC RBC Hgb Hct MCV MCH MCHC RDW Plt Count MPV Absolute Neuts (auto) Neutrophils % Lymphocytes % Monocytes % Eosinophils % Basophils % Nucleated RBC % PT with INR INR PTT (Actin FS) VBG pH POC VBG pCO2 POC VBG pO2 VBG HCO3 VBG O2 Sat (Claudia) VBG Base Excess Sodium 141 Potassium 5.4 H Chloride 105 Carbon Dioxide 32 Anion Gap 4 L BUN 53 H Creatinine 8.3 H* Creat Clearance w eGFR 4.55 Random Glucose 204 H Calcium 8.8 Phosphorus 1.8 L Magnesium 1.8 Total Bilirubin 0.6 AST 25 ALT 19 Alkaline Phosphatase 70 Creatine Kinase 50 Troponin I < 0.02 Total Protein 7.3 Albumin 3.3 L Blood Type A POSITIVE Antibody Screen Negative CBC, BMP 06/05/18 00:30 06/05/18 00:30 ASSESSMENT/PLAN: 88YOF with h/o ESRD on hemodialysis (normally is MWF but recently was admitted and was on /Fri schedule, last tx was this , next scheduled treatment is this Fri), COPD (on home O2 2 LPM), HTN, NIDDM, and diastolic dysfunction who returns to [facility] with SOBa nd productive cough of green sputum admitted for RLL PNA # SOB Acute hypoxic respiratory failure with RLL PNA Aspiration vs HPNA * CXR RLL consolidation , cough with green sputum , WBC 10.8 drom 5.5 2 days ago * o2 to maintain o2 > 90 * urine legionella ag * vanco,zosyn , azithromycin * duoneb , albuterol , Solumedrol 40 Q 8hr * recieved lasix 80 Po at home by her niece will give 20 mg IVPUSH as need if over loaded * Mucinix 600 BID #ESRD on dialysis # Hyperkalemia * cont HD M/W/F * Dr Reis consulted * repeat later after HD * no EKG changes #Hypophosphatemia * acute on chronic * replenished as needed Phospho pack TID #COPD (not in exacerbation) * cont home meds Adavir , duoneb , albuterol PRN * abx and Solumedrol as above #D CHF (not in exacerbation) * resume home meds #HTN resume home meds * she was dc on imdur 60 once daily last visit switch by her pcp to BIDIL * resume other home meds #DM * last A1c 5.6 but daughter reports some elevation at home in 200 * ISS * BGM ACHS * diabetic diet low NA diet # AMS with psychosis in 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 - New Patient This patient is new to me today: Yes Date on this admission: 06/05/18 - Critical Care Critical Care patient: No
--- NOTE | 2018-06-05 04:32 | PN ---
Teaching Attending Note Name of Resident: Escobar Kelley ATTENDING PHYSICIAN STATEMENT I saw and evaluated the patient. I reviewed the resident's note and discussed the case with the resident. I agree with the resident's findings and plan as documented. SUBJECTIVE: Patient is an 88 year old woman with PMH of ESRD on hemodialysis, COPD (on home O2), HTN, NIDDM, craniotomy and diastolic dysfunction who returns to [facility] with continued (and now worsening) SOB similar to that which she had on recent admission. On 05/27/18 she was sent to the ER from dialysis center because she was being combative during dialysis. Per daughter, patient had been confused and more altered - her hospital stay was complicated by SOB. She was discharged on 06/03/18 and her daughter states that SOB has worsened significantly just after she returned home. She has additionally had a wet- sounding cough and began to tire out this evening. There was no associated nausea, fever, cough, vomiting, diarrhea, constipation, dysuria, chest pain, or abdominal pain. Patient has DNR instructions (no chest compressions) but she is not DNI (family states she would want intubation if necessary). OBJECTIVE: Alert and on Bipap Vital Signs Period Temp Pulse Resp BP Sys/Betancourt Pulse Ox Last 24 Hr 99.8 F 101 19 162/71 97-100 HEENT: No Jaundice, eye redness or discharge, PERRLA, EOMI. Normocephalic, atraumatic. External ears are normal and hearing is grossly intact. No nasal discharge. Neck: Supple, nontender. No palpable adenopathy or thyromegaly. No JVD Chest: Good effort. Wheezing and coarse breath sounds, but diminished in the right base. Clear to percussion. Heart: Tachycardia. No S3, rub or murmur Abdomen: Not distended, soft, nontender and no HSM. No rebound or guarding. Normal bowel sounds. Ext: Peripheral pulses intact. No leg edema. Left UE AVF - good thrill and bruit. Skin: Warm and dry. No petechiae, rash or ecchymosis. Neuro: Alert. Oriented x3. CN 2-12 grossly intact. Sensation grossly intact in all four extremities and DTR are symmetric. Psych: Appropriate mood and affect. Good insight. Current Medications Generic Name Dose Route Start Last Admin Trade Name Freq PRN Reason Stop Dose Admin Albuterol Sulfate 1 amp 06/05/18 04:34 Ventolin 0.083% Nebulizer Soln - NEB Q6H PRN SHORT OF BREATH/WHEEZING Albuterol/Ipratropium 1 amp 06/05/18 04:45 Duoneb - NEB RQ4H [facility] Amlodipine Besylate 10 mg 06/05/18 22:00 Norvasc - PO HS [facility] Enoxaparin Sodium 30 mg 06/05/18 10:00 Lovenox - SQ DAILY [facility] Vancomycin HCl 1,000 mg/ 250 mls @ 166.667 mls/hr 06/05/18 04:41 Dextrose IVPB 06/05/18 06:10 ONCE ONE Protocol Isosorbide Mononitrate 60 mg 06/05/18 10:00 Imdur - PO DAILY [facility] Losartan Potassium 50 mg 06/05/18 10:00 Cozaar - PO DAILY [facility] Metoprolol Tartrate 50 mg 06/05/18 10:00 Lopressor - PO BID [facility] Olanzapine 5 mg 06/05/18 10:00 Zyprexa - PO BID [facility] Rosuvastatin Calcium 20 mg 06/05/18 22:00 Crestor - PO HS [facility] Fluticasone/Salmeterol 1 puff 06/05/18 10:00 Advair 100mcg/50mcg - IH BID [facility] Home Medications Medication Instructions Recorded Albuterol Sulfate Inhaler - 2 inh PO Q6H 05/27/18 [Ventolin HFA Inhaler -] Amlodipine Besylate 10 mg PO HS 05/27/18 Isosorbide Mononitrate [Imdur -] 60 mg PO DAILY 05/27/18 Losartan Potassium 50 mg PO DAILY 05/27/18 Metoprolol Tartrate 50 mg PO BID 05/27/18 Rosuvastatin [Crestor -] 20 mg PO HS 05/27/18 Salmeterol/Fluticasone [Advair 1 inh PO BID 05/27/18 100Mcg/50Mcg -] Sevelamer Carbonate [Renvela -] 800 mg PO TID 05/27/18 Olanzapine [Zyprexa -] 5 mg PO BID #60 tablet 06/03/18 Abnormal Lab Results 06/05/18 06/05/18 06/05/18 00:30 00:30 00:30 WBC 10.8 H RDW 15.9 H Absolute Neuts (auto) 9.7 H Neutrophils % 89.9 H Lymphocytes % 3.9 L D POC VBG pCO2 59.6 H POC VBG pO2 42.1 H VBG HCO3 31.6 H VBG Base Excess 4.8 H Potassium 5.4 H Anion Gap 4 L BUN 53 H Creatinine 8.3 H* Random Glucose 204 H Phosphorus 1.8 L Albumin 3.3 L ASSESSMENT AND PLAN: 1. Sepsis due to RLL Pneumonia - Likely due to aspiration and technically HCAP. Will treat with GFR-adjusted doses of IV vancomycin, zosyn and azithromycin as well as solumedrol 40 mg q 8 hours and duoneb q 4 hours. Consult nephrology for thrice weekly hemodialysis. Hold Renvela in view of hypophosphatemia, allow her to eat a regular diet and ensure adequate protein intake of at least 1.5 gm/Kg body weight per day. Treat with neutraphos 2 tablets tid. EKG shows sinus tachycardia with no significant ST-T wave changes. 2. Hypoalbuminemia - Possibly due to combined effects of malnutrition and inflammation associated with comorbid chronic conditions. Will ensure adequate dietary protein intake and also consult sales negotiator. 3. DM For now, we will hold the home diabetes drugs and implement sliding scale insulin regimen. Provide comprehensive diabetes care with patient teaching and counseling about the importance of adherence to prescribed diabetes regimen, euglycemia, eye care and foot care. 4. Hypertension - Restart outpatient antihypertensive drugs and ensure adequate dialytic fluid removal to control BP. Nonpharmacologic measures to control hypertension like weight loss, salt restriction and exercise discussed. 5. DVT prophylaxis - Heparin 5000u sq tid. 6. Advance directives - DNR (no chest compression but wants intubation)
[2018-06-05] MEDS ORDERED: ALBUTEROL SO4 0.083% IH SOL 2.5 MG/3 ML VIAL.NEB. NEB PRN (04:34)
[2018-06-05] MEDS: ALBUTEROL SO4 2.5/IPRATROPIUM 0.5 INH SOL 3 ML VIAL.NEB. NEB SCH ×5 (04:45→20:27)
[2018-06-05] MEDS ORDERED: VANCOMYCIN 1 GRAM (PRE-DOCKED) 1,000 MG/250 ML BAG IVPB ONE (04:45)
[2018-06-05] MEDS: INSULIN SLIDING SCALE (NOVOLOG) 1 VIAL SQ SCH ×4 (07:04→21:37)
[2018-06-05] MEDS: NAPH,MB-DB/K PH,MBDB POWDER PACKET PO SCH ×3 (07:25→21:37)
[2018-06-05 07:48] LABS: URINE APPEARANCE CLEAR; URINE BACTERIA 492.5 /hpf (NEGATIVE); URINE BILIRUBIN NEGATIVE (NEGATIVE); URINE CASTS 4 /hpf (0-8); URINE COLOR YELLOW; URINE GLUCOSE (UA) NEGATIVE (NEGATIVE); URINE KETONE NEGATIVE (NEGATIVE); URINE LEUK ESTERASE NEGATIVE (NEGATIVE); URINE NITRITE NEGATIVE (NEGATIVE); URINE PROTEIN 3+ (NEGATIVE); URINE UROBILINOGEN 0.2 mg/dL (0.2-1.0); URINE WBC 6 /hpf (0-5)
[2018-06-05 09:32] LABS: URINE RBC 12.8 /hpf (0-4)
--- NOTE | 2018-06-05 09:36 | PN ---
Physical Exam: SUBJECTIVE: Patient seen and examined at bedside- patient is currently using the BIPAP with saturations in the high 90's ; does not seem in distress she denies having any CP/N/V of fevers OBJECTIVE: Vital Signs Period Temp Pulse Resp BP Sys/Betancourt Pulse Ox Last 24 Hr 99.8 F 101-107 19-30 127-162/65-71 95-100 GENERAL: The patient is awake, alert, and fully oriented,wearing BIPAP EYES: PEERLA: EOMI: no scleral icterus. NECK: no JVD: no lymphadenopathy LUNGS: coarse breath sounds B/L with slight crackles at right base HEART: Regular rate and rhythm, S1, S2 without murmur, rub or gallop. ABDOMEN: Soft, nontender, nondistended, normoactive bowel sounds, no guarding, no rebound, no hepatosplenomegaly, no masses. EXTREMITIES: 2+ pulses, warm, well-perfused, no edema. PSYCH: Normal mood, normal affect. SKIN: Warm, dry, normal turgor, no rashes or lesions noted Laboratory Results - last 24 hr 06/05/18 06/05/18 06/05/18 00:30 00:30 00:30 WBC 10.8 H RBC 4.38 Hgb 12.3 Hct 37.2 MCV 85.0 MCH 28.0 MCHC 32.9 RDW 15.9 H Plt Count 209 MPV 9.4 Absolute Neuts (auto) 9.7 H Neutrophils % 89.9 H Lymphocytes % 3.9 L D Monocytes % 6.0 Eosinophils % 0.0 D Basophils % 0.2 Nucleated RBC % 0 PT with INR 10.70 INR 0.91 PTT (Actin FS) 30.9 VBG pH 7.34 POC VBG pCO2 59.6 H POC VBG pO2 42.1 H VBG HCO3 31.6 H VBG O2 Sat (Claudia) 70.4 VBG Base Excess 4.8 H Sodium Potassium Chloride Carbon Dioxide Anion Gap BUN Creatinine Creat Clearance w eGFR POC Glucometer Random Glucose Calcium Phosphorus Magnesium Total Bilirubin AST ALT Alkaline Phosphatase Creatine Kinase Troponin I Total Protein Albumin Urine Color Urine Appearance Urine pH Ur Specific Anderson Urine Protein Urine Glucose (UA) Urine Ketones Urine Blood Urine Nitrite Urine Bilirubin Urine Urobilinogen Ur Leukocyte Esterase Urine WBC (Auto) Urine RBC (Auto) Urine Casts (Auto) U Epithel Cells (Auto) Urine Bacteria (Auto) Blood Type Antibody Screen 06/05/18 06/05/18 06/05/18 00:30 00:30 05:01 WBC RBC Hgb Hct MCV MCH MCHC RDW Plt Count MPV Absolute Neuts (auto) Neutrophils % Lymphocytes % Monocytes % Eosinophils % Basophils % Nucleated RBC % PT with INR INR PTT (Actin FS) VBG pH POC VBG pCO2 POC VBG pO2 VBG HCO3 VBG O2 Sat (Claudia) VBG Base Excess Sodium 141 Potassium 5.4 H Chloride 105 Carbon Dioxide 32 Anion Gap 4 L BUN 53 H Creatinine 8.3 H* Creat Clearance w eGFR 4.55 POC Glucometer 131 Random Glucose 204 H Calcium 8.8 Phosphorus 1.8 L Magnesium 1.8 Total Bilirubin 0.6 AST 25 ALT 19 Alkaline Phosphatase 70 Creatine Kinase 50 Troponin I < 0.02 Total Protein 7.3 Albumin 3.3 L Urine Color Urine Appearance Urine pH Ur Specific Anderson Urine Protein Urine Glucose (UA) Urine Ketones Urine Blood Urine Nitrite Urine Bilirubin Urine Urobilinogen Ur Leukocyte Esterase Urine WBC (Auto) Urine RBC (Auto) Urine Casts (Auto) U Epithel Cells (Auto) Urine Bacteria (Auto) Blood Type A POSITIVE Antibody Screen Negative 06/05/18 06:30 WBC RBC Hgb Hct MCV MCH MCHC RDW Plt Count MPV Absolute Neuts (auto) Neutrophils % Lymphocytes % Monocytes % Eosinophils % Basophils % Nucleated RBC % PT with INR INR PTT (Actin FS) VBG pH POC VBG pCO2 POC VBG pO2 VBG HCO3 VBG O2 Sat (Claudia) VBG Base Excess Sodium Potassium Chloride Carbon Dioxide Anion Gap BUN Creatinine Creat Clearance w eGFR POC Glucometer Random Glucose Calcium Phosphorus Magnesium Total Bilirubin AST ALT Alkaline Phosphatase Creatine Kinase Troponin I Total Protein Albumin Urine Color Yellow Urine Appearance Clear Urine pH 6.0 D Ur Specific Anderson 1.014 Urine Protein 3+ H Urine Glucose (UA) Negative Urine Ketones Negative Urine Blood Negative Urine Nitrite Negative Urine Bilirubin Negative Urine Urobilinogen 0.2 Ur Leukocyte Esterase Negative Urine WBC (Auto) 6 Urine RBC (Auto) 12.8 Urine Casts (Auto) 4 U Epithel Cells (Auto) 3.0 Urine Bacteria (Auto) 492.5 Blood Type Antibody Screen Active Medications Generic Name Dose Route Start Last Admin Trade Name Freq PRN Reason Stop Dose Admin Albuterol Sulfate 1 amp 06/05/18 04:34 Ventolin 0.083% Nebulizer Soln - NEB Q6H PRN SHORT OF BREATH/WHEEZING Albuterol/Ipratropium 1 amp 06/05/18 04:45 06/05/18 07:55 Duoneb - NEB 1 amp RQ4H [facility] Administration Amlodipine Besylate 10 mg 06/05/18 22:00 Norvasc - PO HS [facility] Enoxaparin Sodium 30 mg 06/05/18 10:00 Lovenox - SQ DAILY [facility] Guaifenesin 600 mg 06/05/18 10:00 Mucinex - PO BID [facility] Piperacillin Sod/Tazobactam 50 mls @ 100 mls/hr 06/05/18 10:00 Sod 2.25 gm/ Dextrose IVPB Q8H-IV [facility] Protocol Piperacillin Sod/Tazobactam 50 mls @ 100 mls/hr 06/05/18 10:00 Sod 2.25 gm/ Dextrose IVPB 06/06/18 02:29 Q8H-IV [facility] Protocol Azithromycin 250 mg/ Dextrose 250 mls @ 250 mls/hr 06/05/18 10:00 IVPB DAILY [facility] Insulin Aspart 1 vial 06/05/18 07:00 06/05/18 07:04 Novolog Vial Sliding Scale - SQ Not Given ACHS [facility] Protocol Isosorbide Mononitrate 60 mg 06/05/18 10:00 Imdur - PO DAILY [facility] Methylprednisolone Sodium Succinate 40 mg 06/05/18 10:00 Solu-Medrol - IVPUSH Q8H-IV [facility] Metoprolol Tartrate 50 mg 06/05/18 10:00 Lopressor - PO BID [facility] Olanzapine 5 mg 06/05/18 10:00 Zyprexa - PO BID [facility] Potassium Phos/Sodium Phos 1 packet 06/05/18 06:00 Phos-Nak Packet - PO TID [facility] Rosuvastatin Calcium 10 mg 06/05/18 22:00 Crestor - PO HS [facility] Fluticasone/Salmeterol 1 puff 06/05/18 10:00 Advair 100mcg/50mcg - IH BID [facility] ASSESSMENT/PLAN: SOB Acute hypoxic respiratory failure with RLL PNA Aspiration vs HPNA * CXR RLL consolidation , cough with green sputum , elevated WBC at 10.8 * o2 to maintain o2 > 90 * urine legionella ag * vanco,zosyn , azithromycin * duoneb , albuterol , Solumedrol 40 Q 8hr * Mucinix 600 BID * Pulm consult pending #ESRD on dialysis * cont HD M// * Dr Reis consulted #COPD (not in exacerbation) * cont home meds Adavir , duoneb , albuterol PRN * abx and Solumedrol as above #CHF (not in exacerbation) * resume home meds #HTN resume home meds #DM * ISS * BGM ACHS * diabetic diet low NA diet # AMS with psychosis in last visit started on Zyprexa 5 mg po daily , cont * pt daughter denies using it at home and report using ATivan # FEN * no standing fluids * Monitor lytes and replinished as needed * high protien diet Problem List - Problems (1) Shortness of breath Code(s): R06.02 - SHORTNESS OF BREATH (2) Abdominal pain Code(s): R10.9 - UNSPECIFIED ABDOMINAL PAIN (3) Dyspnea Code(s): R06.00 - DYSPNEA, UNSPECIFIED Qualifiers: Dyspnea type: shortness of breath Qualified Code(s): R06.02 - Shortness of breath; R06.00 - Dyspnea, unspecified; R06.01 - Orthopnea (4) ESRD (end stage renal disease) Code(s): N18.6 - END STAGE RENAL DISEASE Visit type - Emergency Visit Emergency Visit: Yes ED Registration Date: 06/05/18 Care time: The patient presented to the Emergency Department on the above date and was hospitalized for further evaluation of their emergent condition. - New Patient This patient is new to me today: Yes Date on this admission: 06/05/18 - Critical Care Critical Care patient: No
[2018-06-05] MEDS ORDERED: methylPREDNISolone NA SUCC 40 MG/1 ML VIAL IVPUSH SCH (10:00)
[2018-06-05] MEDS ORDERED: ENOXAPARIN NA (PORCINE) 30 MG/0.3 ML DISP.SYRIN SQ SCH (10:00)
[2018-06-05] MEDS ORDERED: LOSARTAN POTASSIUM 50 MG TABLET (FP) PO SCH (10:00)
[2018-06-05] MEDS ORDERED: PIPERACILLIN/TAZOB 2.25 GM 2.25 GM in DEXTROSE 5%-WATER - 50 ML IVPB SCH (10:00)
[2018-06-05] MEDS ORDERED: PIPERACILLIN/TAZOB 2.25 GM 2.25 GM/50 ML BAG IVPB ONE ×2 (10:12→18:17)
[2018-06-05 10:48] LABS: ARTERIAL BLD GAS O2 SATURATION 89.8 % (95-98); ARTERIAL BLOOD GAS BASE EXCESS 4.9 meq/l (-2-2); ARTERIAL BLOOD GAS PCO2 51.4 mmHg (35-45); ARTERIAL BLOOD GAS PO2 61.1 mmHg (80-105); ARTERIAL BLOOD GAS pH 7.39 (7.35-7.45)
[2018-06-05] MEDS: guaiFENesin 600 MG TABLET.ER (FP) PO SCH ×2 (10:50→21:37)
[2018-06-05] MEDS: OLANZapine 5 MG TABLET PO SCH ×2 (10:50→21:37)
[2018-06-05] MEDS: METOPROLOL TARTRATE 50 MG TABLET (FP) PO SCH ×2 (11:00→21:37)
[2018-06-05] MEDS: FLUTICASONE/SALMETEROL 100 MCG/50 MCG DISKUS IH SCH ×2 (11:00→21:36)
[2018-06-05] MEDS: ISOSORBIDE MONONITRATE 60 MG TAB.SR.24H (FP) PO SCH (11:00)
[2018-06-05 11:06] LABS: BASO % 0.2 % (0-2.0); HEMATOCRIT 36.5 % (32.4-45.2); HEMOGLOBIN 11.8 GM/dL (10.7-15.3); LYMPH % 8.1 % (8-40); MCH 27.4 pg (25.7-33.7); MCHC 32.2 g/dl (32.0-36.0); MEAN CELL VOLUME 85.1 fl (80-96); MEAN PLT VOLUME 9.7 fl (7.5-11.1); MONO % 5.2 % (3.8-10.2); NEUT % 86.5 % (42.8-82.8); PLATELET COUNT 223 K/MM3 (134-434); RBC 4.29 M/mm3 (3.60-5.2); RDW 15.5 % (11.6-15.6)
[2018-06-05 11:08] LABS: ALLENS TEST POSITIVE
[2018-06-05 11:40] LABS: ANION GAP 9 MMOL/L (8-16); BLOOD UREA NITROGEN 59 mg/dL (7-18); CALCIUM 8.8 mg/dL (8.5-10.1); CHLORIDE 105 mmol/L (98-107); CO2 31 mmol/L (21-32); GLUCOSE,RANDOM 120 mg/dL (74-106); MAGNESIUM 1.7 mg/dL (1.8-2.4); POTASSIUM 4.8 mmol/L (3.5-5.1); SODIUM 144 mmol/L (136-145)
[2018-06-05 11:41] LABS: ALBUMIN 3.3 g/dl (3.4-5.0); ALK PHOS 73 U/L (45-117); BILIRUBIN,TOTAL 0.7 mg/dL (0.2-1); SGOT/AST 18 U/L (15-37); SGPT/ALT 16 U/L (13-61)
[2018-06-05 12:21] LABS: CREATININE 8.9 mg/dL (0.55-1.3)
--- NOTE | 2018-06-05 12:22 | EKG ---
Test Reason : Blood Pressure : / mmHG Vent. Rate : 102 BPM Atrial Rate : 102 BPM P-R Int : 166 ms QRS Dur : 080 ms QT Int : 350 ms P-R-T Axes : 053 -74 071 degrees QTc Int : 456 ms SINUS TACHYCARDIA LEFT AXIS DEVIATION ABNORMAL ECG WHEN COMPARED WITH ECG OF 28-MAY-2018 13:17, QRS AXIS SHIFTED LEFT Confirmed by GAIL GERARD MD [id number]) on 06/05/2018 12:22:03 PM Referred By: RENEE ANDREWS Confirmed By:GAIL GERARD MD
--- NOTE | 2018-06-05 12:58 | CON.NEP ---
Consult Consult Specialty:: Nephrology Referred by:: kahlil Reason for Consultation:: esrd. hd. hyperkalemia - History of Present Illness Chief Complaint: sob, pna, needs dialysis History of Present Illness: esrd on hd TIW MWF readmitted after d/c on friday from hosp did not get dialysis on friday came to er night c/ worse sob progressing to distress cxr shows new and progressing basilar infiltrates being rx'd for pneumonia/copd exacerbation - History Source History Provided By: Family Member (daughter ) - Past Medical History Cardio/Vascular: Yes: HTN Pulmonary: Yes: COPD Gastrointestinal: Yes: GERD Renal/: Yes: Renal Inusuff, Hemodialysis, Renal Calculi (maybe- she had flank pain) Endocrine: Yes: Diabetes Mellitus - Past Surgical History Past Surgical History: Yes: AV Fistula/Graft - Alcohol/Substance Use Hx Alcohol Use: No - Smoking History Smoking history: Never smoked Have you smoked in the past 12 months: No Aproximately how many cigarettes per day: 0 - Social History Usual Living Arrangement: With Significant Other Home Medications - Allergies Allergies/Adverse Reactions: Allergies Allergy/AdvReac Type Severity Reaction Status Date / Time egg AdvReac Vomiting Verified 05/27/18 12:48 - Home Medications Home Medications: Ambulatory Orders Albuterol Sulfate Inhaler - [Ventolin HFA Inhaler -] 2 inh PO Q6H 05/27/18 Amlodipine Besylate 10 mg PO HS 05/27/18 Isosorbide Mononitrate [Imdur -] 60 mg PO DAILY 05/27/18 Losartan Potassium 50 mg PO DAILY 05/27/18 Metoprolol Tartrate 50 mg PO BID 05/27/18 Rosuvastatin [Crestor -] 20 mg PO HS 05/27/18 Salmeterol/Fluticasone [Advair 100Mcg/50Mcg -] 1 inh PO BID 05/27/18 Sevelamer Carbonate [Renvela -] 800 mg PO TID 05/27/18 Olanzapine [Zyprexa -] 5 mg PO BID #60 tablet 06/03/18 Nephrology Consult - Height Height: 5 ft 4 in - Weight Weight: 125 lb - BMI Body Mass Index (BMI): 21.4 - Lab Results CBC,BMP: CBC, BMP 06/05/18 10:34 06/05/18 10:34 Anion Gap: Anion Gap Anion Gap 9 MMOL/L (8-16) 06/05/18 10:34 - Physical Examination Vital Signs: Vital Signs Temperature 98.9 F 06/05/18 10:55 Pulse Rate 110 H 06/05/18 11:30 Respiratory Rate 18 06/05/18 11:30 Blood Pressure 141/71 06/05/18 11:30 O2 Sat by Pulse Oximetry (%) 98 06/05/18 11:00 Constitutional: Yes: Cachectic, Severe Distress Eyes: Yes: EOM Intact. No: Sclera Icterus HENT: Yes: WNL, Atraumatic, Normocephalic Neck: Yes: WNL, Supple, Trachea Midline Cardiovascular: Yes: Tachycardia, JVD Respiratory: Yes: Accessory Muscle Use, Diminished, On BiPap, Rhonchi (Left lung field posteriorly), SOB Gastrointestinal: Yes: WNL, Normal Bowel Sounds Access for Hemodialysis: AV Fistula (left upper arm) Musculoskeletal: Yes: WNL Edema: No Peripheral Pulses WNL: Yes Assessment/Plan ESRD ON HD TIW MWF AT [facility] PNA COPD EXACERBATION CHRONIC HYPOXIA seen on dialysis on BiPap mildly improved during the first hour of HD Unclear what her current weight is 54.5 KG in chronic unit currently weight is recorded at 125lbs (56.8 kg) Plan- HD with fluid removal as drake eval for short tx tomorrow
--- NOTE | 2018-06-05 14:10 | EKG ---
Test Reason : Blood Pressure : / mmHG Vent. Rate : 114 BPM Atrial Rate : 114 BPM P-R Int : 154 ms QRS Dur : 090 ms QT Int : 348 ms P-R-T Axes : 087 087 068 degrees QTc Int : 479 ms SINUS TACHYCARDIA RIGHT ATRIAL ENLARGEMENT VOLTAGE CRITERIA FOR LEFT VENTRICULAR HYPERTROPHY ABNORMAL ECG WHEN COMPARED WITH ECG OF 05-JUN-2018 06:05, PREMATURE ATRIAL COMPLEXES ARE NO LONGER PRESENT T WAVE INVERSION NO LONGER EVIDENT IN LATERAL LEADS Confirmed by GAIL GERARD MD ([id number]) on 06/05/2018 2:10:06 PM Referred By: JAYSHREE CUEVAS Confirmed By:GAIL GERARD MD
--- NOTE | 2018-06-05 14:15 | CON.PULM ---
Consult Consult Specialty:: PULM/CCM Referred by:: Hospitalist Reason for Consultation:: SOB - History of Present Illness Chief Complaint: SOB History of Present Illness: 88 F, ESRD on HD (TTS), last treatment was this Tues, O2 dependent COPD (2 LPM) , HTN, NIDDM, and diastolic dysfunction. Admitted via the ER due to progressive worsening of SOB that apparently started during her recent hospitalization. She was recently admitted to [facility] for an acute delirium and was discharged on 06/03/2018. Reports of a "wet sounding" cough that prompted the family to give her 20mg Lasix and subsequently brought her to the hospital. No documented fever or chills. No night sweats or hemoptysis. 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 No: Asthma, Pulmonary Embolus, Sleep Apnea Gastrointestinal: Yes: GERD Renal/: Yes: Renal Inusuff, Hemodialysis, Renal Calculi (maybe- she had flank pain) Endocrine: Yes: Diabetes Mellitus - Past Surgical History Past Surgical History: Yes: AV Fistula/Graft - Alcohol/Substance Use Hx Alcohol Use: No - Smoking History Smoking history: Never smoked Have you smoked in the past 12 months: No Aproximately how many cigarettes per day: 0 - Social History Usual Living Arrangement: With Significant Other Home Medications - Allergies Allergies/Adverse Reactions: Allergies Allergy/AdvReac Type Severity Reaction Status Date / Time egg AdvReac Vomiting Verified 05/27/18 12:48 - Home Medications Home Medications: Ambulatory Orders Albuterol Sulfate Inhaler - [Ventolin HFA Inhaler -] 2 inh PO Q6H 05/27/18 Amlodipine Besylate 10 mg PO HS 05/27/18 Isosorbide Mononitrate [Imdur -] 60 mg PO DAILY 05/27/18 Losartan Potassium 50 mg PO DAILY 05/27/18 Metoprolol Tartrate 50 mg PO BID 05/27/18 Rosuvastatin [Crestor -] 20 mg PO HS 05/27/18 Salmeterol/Fluticasone [Advair 100Mcg/50Mcg -] 1 inh PO BID 05/27/18 Sevelamer Carbonate [Renvela -] 800 mg PO TID 05/27/18 Olanzapine [Zyprexa -] 5 mg PO BID #60 tablet 06/03/18 Review of Systems Unable to obtain ROS, reason: unable to provide Physical Exam Vital Sings: Vital Signs Temperature 98.9 F 06/05/18 10:55 Pulse Rate 120 H 06/05/18 12:30 Respiratory Rate 18 06/05/18 12:30 Blood Pressure 131/72 06/05/18 12:30 O2 Sat by Pulse Oximetry (%) 98 06/05/18 11:00 Constitutional: Yes: No Distress, Thin Eyes: Yes: Conjunctiva Clear, EOM Intact HENT: Yes: Atraumatic, Normocephalic Neck: Yes: Supple, Trachea Midline Cardiovascular: Yes: Regular Rate and Rhythm Respiratory: Yes: Cough, Diminished, On BiPap, Rhonchi, SOB, SOB on Exertion, Tachypnea, Wheezes. No: Accessory Muscle Use, Rales, Stridor ...Inspection: Yes: WNL ...Clubbing: No Gastrointestinal: Yes: Normal Bowel Sounds, Soft Renal/: Yes: WNL Musculoskeletal: Yes: WNL Extremities: Yes: WNL Edema: No Peripheral Pulses WNL: Yes Integumentary: Yes: WNL Neurological: Yes: Confusion Labs: CBC, BMP 06/05/18 10:34 06/05/18 10:34 ABG Results ABG pH 7.39 (7.35-7.45) 06/05/18 10:32 ABG pCO2 at Pt Temp 51.4 mmHg (35-45) H 06/05/18 10:32 ABG pO2 at Pt Temp 61.1 mmHg (80-105) L 06/05/18 10:32 ABG HCO3 30.4 mmol/L (22-27) H 06/05/18 10:32 ABG O2 Sat (Measured) 89.8 % (95-98) L 06/05/18 10:32 ABG O2 Content 14.7 % vol (15-22) L 06/05/18 10:32 ABG Base Excess 4.9 meq/l (-2-2) H 06/05/18 10:32 Imaging - Results Chest X-ray: Report Reviewed, Image Reviewed Problem List - Problems (1) Acute respiratory failure Code(s): J96.00 - ACUTE RESPIRATORY FAILURE, UNSP W HYPOXIA OR HYPERCAPNIA (2) Shortness of breath Code(s): R06.02 - SHORTNESS OF BREATH (3) Dyspnea Code(s): R06.00 - DYSPNEA, UNSPECIFIED Qualifiers: Dyspnea type: shortness of breath Qualified Code(s): R06.02 - Shortness of breath; R06.00 - Dyspnea, unspecified; R06.01 - Orthopnea (4) ESRD (end stage renal disease) on dialysis Code(s): N18.6 - END STAGE RENAL DISEASE; Z99.2 - DEPENDENCE ON RENAL DIALYSIS (5) History of end stage renal disease Code(s): Z87.448 - PERSONAL HISTORY OF OTHER DISEASES OF URINARY SYSTEM (6) COPD exacerbation Code(s): J44.1 - CHRONIC OBSTRUCTIVE PULMONARY DISEASE W (ACUTE) EXACERBATION (7) Diabetes Code(s): E11.9 - TYPE 2 DIABETES MELLITUS WITHOUT COMPLICATIONS Qualifiers: Diabetes mellitus type: type 2 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: without long-term use Diabetes mellitus complication status: with kidney complications Diabetes mellitus complication detail: with chronic kidney disease Chronic kidney disease stage: on chronic dialysis Qualified Code(s) : E11.22 - Type 2 diabetes mellitus with diabetic chronic kidney disease; N18.6 - End stage renal disease; Z99.2 - Dependence on renal dialysis (8) Hypercholesterolemia Code(s): E78.00 - PURE HYPERCHOLESTEROLEMIA, UNSPECIFIED (9) Hypertension Code(s): I10 - ESSENTIAL (PRIMARY) HYPERTENSION Qualifiers: Hypertension type: essential hypertension Qualified Code(s): I10 - Essential (primary) hypertension (10) Pneumonia Code(s): J18.9 - PNEUMONIA, UNSPECIFIED ORGANISM Qualifiers: Laterality: bilateral Lung location: lower lobe of lung Assessment/Plan Zosyn / Zithromax Check sputum if able Aspiration precautions NIPPV support Trial of VM O2 ID evaluation Medrol BD TX standing and PRN 4W / 4S for oximetry monitoring Will follow Thank you. Dr Owen
[2018-06-05] MEDS: AZITHROMYCIN IVPB 250 MG in DEXTROSE 5%-WATER - 250 ML IVPB SCH (15:30)
--- NOTE | 2018-06-05 17:15 | PN ---
Progress Note (short form) - Note Progress Note: ID consult dictated imp/reccd 88 yo female just discharged on Friday, she had HD on Friday- on she was short of breath all day with cough, brought to ER last night temp 99.8 cxray bibasilar infiltrates left greater then right now on bipap was here for one week for combative behavior just discharged on Friday COPD on home oxygen HAP COPD requiring oxygen esrd/hd blood cultures urinary antigens received vanco/zosyn/zith can d/c zith if legionella antigen is negative continue zosyn f/u cultures Problem List - Problems (1) Pneumonia Code(s): J18.9 - PNEUMONIA, UNSPECIFIED ORGANISM Qualifiers: Laterality: bilateral Lung location: lower lobe of lung (2) COPD exacerbation Code(s): J44.1 - CHRONIC OBSTRUCTIVE PULMONARY DISEASE W (ACUTE) EXACERBATION (3) ESRD (end stage renal disease) on dialysis Code(s): N18.6 - END STAGE RENAL DISEASE; Z99.2 - DEPENDENCE ON RENAL DIALYSIS
--- NOTE | 2018-06-05 17:33 | PN ---
Teaching Attending Note Name of Resident: Basia Stevens ATTENDING PHYSICIAN STATEMENT I saw and evaluated the patient. I reviewed the resident's note and discussed the case with the resident. I agree with the resident's findings and plan as documented. SUBJECTIVE: seen around 10 am . daughter at bedside No fever or chills. No ART. SOB is better . daughter reports cough with seen sputum production. OBJECTIVE: NAD,awake, and alert . calm and cooperative. MMM CV: RRR, no MRG lungs: R base crackles Ext: no edema A/P : 87 y/o lady with h/o ESRD on HD MWF, COPD on home O2, GERD, HTN, HLP, DM, and other medical problems with recent hospitalization for agitation who presented this time with SOB and productive cough. She was found to have RLL PNA 1- Acute hypoxic resp failure RLL PNA: - cont zosyn and azithro - follow blood cx - order sputum cx - steroids added for possible COPD component - BIPAP as needed . keep satO2 88-93 % 2- ESRD with hyperkalemia: - was supposed to get HD yesterday per a new schedule but she did not - held ARB today due to hyperkalemia pending HD - monitor K in am and decide on ARB 3- HTN: cont BB, norvasc and imdur, and hold ARB for today 4- Agitation with HD. cont zyprexa. out pt neuropsych eval Code status : d/w daughter . full code for now DVT PX: dc lovenox nad add heparin sq
[2018-06-05] MEDS: PIPERACILLIN/TAZOB 2.25 GM 2.25 GM in DEXTROSE 5%-WATER - 50 ML IVPB SCH (18:20)
[2018-06-05] MEDS: methylPREDNISolone NA SUCC 40 MG/1 ML VIAL IVPUSH SCH (18:20)
--- NOTE | 2018-06-05 18:49 | CONS ---
DATE OF CONSULTATION: DATE OF DICTATION: 06/05/2018 INFECTIOUS DISEASE CONSULTATION REQUESTING PHYSICIAN: Hospitalist Service CONSULTING PHYSICIAN: Holli Morales M.D. HISTORY OF PRESENT ILLNESS: This is an 88-year-old woman who lives at home with her family. She is from [facility] and primarily Creole speaking. Her daughter is present at the bedside and is serving as button pusher. She was recently in the hospital from the to the 03 of June for aggressive combative behavior while on dialysis. She had an evaluation including blood cultures, CT, MRI of the head, all of which were unremarkable. She was seen by psychiatry and neurology, and on the she was discharged home. She has end-stage renal disease and is on dialysis. She had dialysis on Friday prior to discharge on Friday. Her family notes that on she became quite short of breath at home, leading them to bring her to the emergency room night. They report she has a cough. In the emergency room, she had a temperature of 99.8. I am asked to see her for possible pneumonia. She received vancomycin, Zosyn, and Zithromax in the ER. She is currently without complaint. She is wearing BiPAP which she wants to remove, and she is hungry and she wants to eat. Her daughter denies any vomiting at home. She states she was somewhat confused with the shortness of breath but it improved. PAST MEDICAL HISTORY: Notable for end-stage renal disease recently started on dialysis in March. She has a left arm AV fistula, COPD on oxygen at home, congestive heart failure, prior history of pericardial effusion, hypertension, noninsulin dependent diabetes. SURGICAL HISTORY: Notable for AV fistula. She is allergic to EGGS. SOCIAL HISTORY: She is primarily Creole speaking from [facility], has been in this country for 12 years. She lives with her daughter. There is no history of any recent travel. There is no history of cigarette, alcohol, or substance use. MEDICATION: At home include Renvela, Advair, Crestor, Zyprexa, metoprolol, losartan, Imdur, amlodipine, and Ventolin inhaler. She is on home oxygen. REVIEW OF SYSTEMS: The family notes the shortness of breath. They deny nausea, vomiting, diarrhea, or dysuria. They report that she really does not urinate much. PHYSICAL EXAMINATION: GENERAL: She is awake and alert. She recognizes her family members. She follows commands. VITAL SIGNS: Temperature is 97.8, she is wearing BiPAP, T-max is 99.8. Pulse is 114, blood pressure is 135/45, respiratory rate is 26. She is saturating 96% on BiPAP. HEENT: Normocephalic. Eyes are anicteric. She is wearing the BiPAP. NECK: Supple. LUNGS: Diminished breath sounds at the bases. HEART: Regular rate and rhythm. ABDOMEN: Soft, nontender. She has a left arm AV fistula. EXTREMITIES: Without edema. LABORATORY: White count is 12, hemoglobin 11.8, platelets are 223. BUN and creatinine are 59 and 8.9 with normal LFTs. No blood cultures were sent. Chest x-ray shows progressive bibasilar infiltrates. IMPRESSION: 1. In summary, this is an elderly woman who was just discharged on Friday, admitted on night with shortness of breath, bibasilar infiltrates in the setting of end-stage renal disease on dialysis. Concern is for hospital acquired pneumonia. She has a history of chronic obstructive pulmonary disease as well and is on oxygen. Would treat her with Zosyn and Zithromax. Can stop the Zithromax of the legionella antigen is negative. She had no cultures obtained, so would do that at this time as well. 2. End-stage renal disease, on dialysis. 3. History of congestive heart failure. She had a recent echo May 01 of this year which shows somewhat elevated pulmonary pressures of about 40 mmHg. Further recommendations to follow. Bianca [id number]
[2018-06-05] MEDS: HEPARIN NA (PORCINE) 5,000 UNITS/ML 1ML VIAL SQ SCH (21:36)
[2018-06-05] MEDS: ROSUVASTATIN CA 10 MG TABLET (FP) PO SCH (21:37)
[2018-06-05] MEDS: amLODIPine BESYLATE 10 MG TABLET (FP) PO SCH (21:37)
[2018-06-06] MEDS: PIPERACILLIN/TAZOB 2.25 GM 2.25 GM in DEXTROSE 5%-WATER - 50 ML IVPB SCH ×3 (02:00→18:10)
[2018-06-06] MEDS: methylPREDNISolone NA SUCC 40 MG/1 ML VIAL IVPUSH SCH ×3 (02:00→18:10)
[2018-06-06] MEDS ORDERED: PIPERACILLIN/TAZOBACTAM 2.25 GM VIAL IVPB ONE ×3 (04:06→17:56)
[2018-06-06] MEDS ORDERED: DEXTROSE 5%-WATER - 50 ML IVPB ONE ×3 (04:07→17:57)
[2018-06-06] MEDS: HEPARIN NA (PORCINE) 5,000 UNITS/ML 1ML VIAL SQ SCH ×3 (06:45→21:53)
[2018-06-06] MEDS: NAPH,MB-DB/K PH,MBDB POWDER PACKET PO SCH ×3 (06:46→21:52)
[2018-06-06] MEDS: INSULIN SLIDING SCALE (NOVOLOG) 1 VIAL SQ SCH ×4 (06:46→21:53)
[2018-06-06 07:52] LABS: HEMATOCRIT 38.2 % (32.4-45.2); MCH 27.3 pg (25.7-33.7); MCHC 31.4 g/dl (32.0-36.0); MEAN CELL VOLUME 86.9 fl (80-96); MEAN PLT VOLUME 9.7 fl (7.5-11.1); PLATELET COUNT 176 K/MM3 (134-434); RBC 4.39 M/mm3 (3.60-5.2); RDW 16.1 % (11.6-15.6); WHITE BLOOD COUNT 15.2 K/mm3 (4.0-10.0)
[2018-06-06] MEDS: ALBUTEROL SO4 2.5/IPRATROPIUM 0.5 INH SOL 3 ML VIAL.NEB. NEB SCH ×4 (08:00→19:35)
[2018-06-06 08:03] LABS: ANION GAP 9 MMOL/L (8-16); BLOOD UREA NITROGEN 41 mg/dL (7-18); CALCIUM 8.9 mg/dL (8.5-10.1); CHLORIDE 101 mmol/L (98-107); CO2 32 mmol/L (21-32); GLUCOSE,RANDOM 168 mg/dL (74-106); MAGNESIUM 2.1 mg/dL (1.8-2.4); PHOSPHOROUS 4.9 mg/dL (2.5-4.9); SODIUM 142 mmol/L (136-145)
[2018-06-06] MEDS ORDERED: PT OWN MED DRAWER 7, Y5N ONE (09:33)
--- NOTE | 2018-06-06 09:39 | PN ---
Physical Exam: SUBJECTIVE: Patient seen and examined at bedside- no acute events overnight; patient used BIPAP all night however was resting comfortably with nasal canula this AM was slightly agitated overnight but for the most part comfortable OBJECTIVE: Vital Signs Period Temp Pulse Resp BP Sys/Betancourt Pulse Ox Last 24 Hr 97.8 F-99.1 F 74-120 18-28 100-172/43-94 93-100 GENERAL: The patient is awake, alert, resting comfortably on NC HEAD: Normal with no signs of trauma. EYES: PEERLA: EOMI no scleral icterus NECK:no JVD: no lymphadenopathy. LUNGS: slight rhonchi B/L with diminsihed breath sounds at right base HEART: Regular rate and rhythm, S1, S2 without murmur, rub or gallop. ABDOMEN: Soft, nontender, nondistended, normoactive bowel sounds, no guarding, no rebound, no hepatosplenomegaly, no masses. EXTREMITIES: 2+ pulses, warm, well-perfused, no edema. PSYCH: Normal mood, normal affect. SKIN: Warm, dry, normal turgor, no rashes or lesions noted Laboratory Results - last 24 hr 06/05/18 06/05/18 06/05/18 10:32 10:34 10:34 WBC 12.0 H RBC 4.29 Hgb 11.8 Hct 36.5 MCV 85.1 MCH 27.4 MCHC 32.2 RDW 15.5 Plt Count 223 MPV 9.7 Absolute Neuts (auto) 10.4 H Neutrophils % 86.5 H Lymphocytes % 8.1 D Monocytes % 5.2 Eosinophils % 0.0 Basophils % 0.2 Nucleated RBC % 0 Anticoagulation Therapy No Result Required. Puncture Site Right radial ABG pH 7.39 ABG pCO2 at Pt Temp 51.4 H ABG pO2 at Pt Temp 61.1 L ABG HCO3 30.4 H ABG O2 Sat (Measured) 89.8 L ABG O2 Content 14.7 L ABG Base Excess 4.9 H Usman Test Positive O2 Delivery Device Bipap Oxygen Flow Rate 35% Vent Mode S/t Vent Rate 14 Mechanical Rate Bipap Pressure Support Vent 10/5 Sodium 144 Potassium 4.8 Chloride 105 Carbon Dioxide 31 Anion Gap 9 BUN 59 H Creatinine 8.9 H* Creat Clearance w eGFR 4.20 POC Glucometer Random Glucose 120 H Lactic Acid Calcium 8.8 Phosphorus 2.0 L Magnesium 1.7 L Total Bilirubin 0.7 AST 18 ALT 16 Alkaline Phosphatase 73 Troponin I < 0.02 Total Protein 7.0 Albumin 3.3 L Random Vancomycin 06/05/18 06/05/18 06/05/18 10:34 17:25 21:33 WBC RBC Hgb Hct MCV MCH MCHC RDW Plt Count MPV Absolute Neuts (auto) Neutrophils % Lymphocytes % Monocytes % Eosinophils % Basophils % Nucleated RBC % Anticoagulation Therapy Puncture Site ABG pH ABG pCO2 at Pt Temp ABG pO2 at Pt Temp ABG HCO3 ABG O2 Sat (Measured) ABG O2 Content ABG Base Excess Usman Test O2 Delivery Device Oxygen Flow Rate Vent Mode Vent Rate Mechanical Rate Pressure Support Vent Sodium Potassium Chloride Carbon Dioxide Anion Gap BUN Creatinine Creat Clearance w eGFR POC Glucometer 151 239 Random Glucose Lactic Acid 1.1 Calcium Phosphorus Magnesium Total Bilirubin AST ALT Alkaline Phosphatase Troponin I Total Protein Albumin Random Vancomycin 06/06/18 06/06/18 06/06/18 06:08 07:15 07:15 WBC 15.2 H RBC 4.39 Hgb 12.0 Hct 38.2 MCV 86.9 MCH 27.3 MCHC 31.4 L RDW 16.1 H Plt Count 176 D MPV 9.7 Absolute Neuts (auto) Neutrophils % Lymphocytes % Monocytes % Eosinophils % Basophils % Nucleated RBC % Anticoagulation Therapy Puncture Site ABG pH ABG pCO2 at Pt Temp ABG pO2 at Pt Temp ABG HCO3 ABG O2 Sat (Measured) ABG O2 Content ABG Base Excess Usman Test O2 Delivery Device Oxygen Flow Rate Vent Mode Vent Rate Mechanical Rate Pressure Support Vent Sodium Potassium Chloride Carbon Dioxide Anion Gap BUN Creatinine Creat Clearance w eGFR POC Glucometer 153 Random Glucose Lactic Acid Calcium Phosphorus Magnesium Total Bilirubin AST ALT Alkaline Phosphatase Troponin I Total Protein Albumin Random Vancomycin 11.5 L 06/06/18 07:15 WBC RBC Hgb Hct MCV MCH MCHC RDW Plt Count MPV Absolute Neuts (auto) Neutrophils % Lymphocytes % Monocytes % Eosinophils % Basophils % Nucleated RBC % Anticoagulation Therapy Puncture Site ABG pH ABG pCO2 at Pt Temp ABG pO2 at Pt Temp ABG HCO3 ABG O2 Sat (Measured) ABG O2 Content ABG Base Excess Usman Test O2 Delivery Device Oxygen Flow Rate Vent Mode Vent Rate Mechanical Rate Pressure Support Vent Sodium 142 Potassium 5.0 Chloride 101 Carbon Dioxide 32 Anion Gap 9 BUN 41 H Creatinine 6.0 H Creat Clearance w eGFR 6.62 POC Glucometer Random Glucose 168 H Lactic Acid Calcium 8.9 Phosphorus 4.9 Magnesium 2.1 Total Bilirubin AST ALT Alkaline Phosphatase Troponin I Total Protein Albumin Random Vancomycin Active Medications Generic Name Dose Route Start Last Admin Trade Name Freq PRN Reason Stop Dose Admin Albuterol Sulfate 1 amp 06/05/18 04:34 Ventolin 0.083% Nebulizer Soln - NEB Q6H PRN SHORT OF BREATH/WHEEZING Albuterol/Ipratropium 1 amp 06/05/18 16:00 06/06/18 08:00 Duoneb - NEB 1 amp RQID [facility] Administration Amlodipine Besylate 10 mg 06/05/18 22:00 06/05/18 21:37 Norvasc - PO 10 mg HS [facility] Administration Guaifenesin 600 mg 06/05/18 10:00 06/05/18 21:37 Mucinex - PO 600 mg BID [facility] Administration Heparin Sodium (Porcine) 5,000 unit 06/05/18 22:00 06/06/18 06:45 Heparin - SQ 5,000 unit TID [facility] Administration Azithromycin 250 mg/ Dextrose 250 mls @ 250 mls/hr 06/05/18 10:00 06/05/18 15 :30 IVPB 250 mls/hr DAILY [facility] Administration Piperacillin Sod/Tazobactam 50 mls @ 100 mls/hr 06/05/18 18:00 06/06/18 02:00 Sod 2.25 gm/ Dextrose IVPB 100 mls/hr Q8H-IV [facility] Administration Protocol Insulin Aspart 1 vial 06/05/18 07:00 06/06/18 06:46 Novolog Vial Sliding Scale - SQ Not Given ACHS [facility] Protocol Isosorbide Mononitrate 60 mg 06/05/18 10:00 06/05/18 11:00 Imdur - PO Not Given DAILY [facility] Methylprednisolone Sodium Succinate 40 mg 06/05/18 18:00 06/06/18 02:00 Solu-Medrol - IVPUSH 40 mg Q8H-IV [facility] Administration Metoprolol Tartrate 50 mg 06/05/18 10:00 06/05/18 21:37 Lopressor - PO 50 mg BID [facility] Administration Olanzapine 5 mg 06/05/18 10:00 06/05/18 21:37 Zyprexa - PO 5 mg BID [facility] Administration Potassium Phos/Sodium Phos 1 packet 06/05/18 06:00 06/06/18 06:46 Phos-Nak Packet - PO Not Given TID [facility] Rosuvastatin Calcium 10 mg 06/05/18 22:00 06/05/18 21:37 Crestor - PO 10 mg HS [facility] Administration Fluticasone/Salmeterol 1 puff 06/05/18 10:00 06/05/18 21:36 Advair 100mcg/50mcg - IH 1 puff BID [facility] Administration ASSESSMENT/PLAN: SOB Acute hypoxic respiratory failure with RLL PNA Aspiration vs HPNA * o2 to maintain o2 > 90 * urine legionella negative * d/c vanco; c/w zosyn and azithro * ID on board * duoneb , albuterol , Solumedrol 40 Q 8hr * Mucinix 600 BID * Pulm consult; recs appreciated #ESRD on dialysis * cont HD M/W/F * Dr Reis consulted #COPD (not in exacerbation) * cont home meds Adavir , duoneb , albuterol PRN * abx and Solumedrol as above #CHF (not in exacerbation) * resume home meds #HTN resume home meds #DM * ISS * BGM ACHS * diabetic diet low NA diet # AMS with psychosis in last visit started on Zyprexa 5 mg po daily , cont * pt daughter denies using it at home and report using ATivan Problem List - Problems (1) Shortness of breath Code(s): R06.02 - SHORTNESS OF BREATH (2) Abdominal pain Code(s): R10.9 - UNSPECIFIED ABDOMINAL PAIN (3) Dyspnea Code(s): R06.00 - DYSPNEA, UNSPECIFIED Qualifiers: Dyspnea type: shortness of breath Qualified Code(s): R06.02 - Shortness of breath; R06.00 - Dyspnea, unspecified; R06.01 - Orthopnea (4) ESRD (end stage renal disease) Code(s): N18.6 - END STAGE RENAL DISEASE Visit type - Emergency Visit Emergency Visit: Yes ED Registration Date: 06/05/18 Care time: The patient presented to the Emergency Department on the above date and was hospitalized for further evaluation of their emergent condition. - New Patient This patient is new to me today: No - Critical Care Critical Care patient: No
[2018-06-06] MEDS: OLANZapine 5 MG TABLET PO SCH ×2 (09:44→21:52)
[2018-06-06] MEDS: guaiFENesin 600 MG TABLET.ER (FP) PO SCH ×2 (09:44→21:53)
[2018-06-06] MEDS: METOPROLOL TARTRATE 50 MG TABLET (FP) PO SCH ×2 (09:44→21:52)
[2018-06-06] MEDS: ISOSORBIDE MONONITRATE 60 MG TAB.SR.24H (FP) PO SCH (09:44)
[2018-06-06] MEDS: FLUTICASONE/SALMETEROL 100 MCG/50 MCG DISKUS IH SCH ×2 (09:46→21:54)
[2018-06-06] MEDS: AZITHROMYCIN IVPB 250 MG in DEXTROSE 5%-WATER - 250 ML IVPB SCH (10:25)
--- NOTE | 2018-06-06 10:34 | PN ---
Progress Note, Physician History of Present Illness: PULMONARY alert,still congested,+ cough ,less dyspneic - Current Medication List Current Medications: Active Medications Albuterol Sulfate (Ventolin 0.083% Nebulizer Soln -) 1 amp NEB Q6H PRN PRN Reason: SHORT OF BREATH/WHEEZING Albuterol/Ipratropium (Duoneb -) 1 amp NEB RQID [facility] Last Admin: 06/06/18 08:00 Dose: 1 amp Amlodipine Besylate (Norvasc -) 10 mg PO HS [facility] Last Admin: 06/05/18 21:37 Dose: 10 mg Guaifenesin (Mucinex -) 600 mg PO BID [facility] Last Admin: 06/06/18 09:44 Dose: 600 mg Heparin Sodium (Porcine) (Heparin -) 5,000 unit SQ TID [facility] Last Admin: 06/06/18 06:45 Dose: 5,000 unit Azithromycin 250 mg/ Dextrose 250 mls @ 250 mls/hr IVPB DAILY [facility] Last Admin: 06/06/18 10:25 Dose: 250 mls/hr Piperacillin Sod/Tazobactam (Sod 2.25 gm/ Dextrose) 50 mls @ 100 mls/hr IVPB Q8H-IV [facility]; Protocol Last Admin: 06/06/18 09:44 Dose: 100 mls/hr Insulin Aspart (Novolog Vial Sliding Scale -) 1 vial SQ ACHS [facility]; Protocol Last Admin: 06/06/18 06:46 Dose: Not Given Isosorbide Mononitrate (Imdur -) 60 mg PO DAILY [facility] Last Admin: 06/06/18 09:44 Dose: 60 mg Methylprednisolone Sodium Succinate (Solu-Medrol -) 40 mg IVPUSH Q8H-IV [facility] Last Admin: 06/06/18 09:44 Dose: 40 mg Metoprolol Tartrate (Lopressor -) 50 mg PO BID [facility] Last Admin: 06/06/18 09:44 Dose: 50 mg Olanzapine (Zyprexa -) 5 mg PO BID [facility] Last Admin: 06/06/18 09:44 Dose: 5 mg Potassium Phos/Sodium Phos (Phos-Nak Packet -) 1 packet PO TID [facility] Last Admin: 06/06/18 06:46 Dose: Not Given Rosuvastatin Calcium (Crestor -) 10 mg PO HS [facility] Last Admin: 06/05/18 21:37 Dose: 10 mg Fluticasone/Salmeterol (Advair 100mcg/50mcg -) 1 puff IH BID [facility] Last Admin: 06/06/18 09:46 Dose: 1 puff - Objective Vital Signs: Vital Signs Temperature 99.1 F 06/06/18 06:00 Pulse Rate 84 06/06/18 06:00 Respiratory Rate 20 06/06/18 06:00 Blood Pressure 111/43 L 06/06/18 06:00 O2 Sat by Pulse Oximetry (%) 93 L 06/06/18 08:30 Constitutional: Yes: Calm, Thin Eyes: Yes: WNL HENT: Yes: WNL Neck: Yes: WNL Cardiovascular: Yes: Regular Rate and Rhythm, S1, S2 Respiratory: Yes: Rhonchi (bilateral rhonchi) Gastrointestinal: Yes: Normal Bowel Sounds, Soft Extremities: Yes: WNL Edema: No Labs: CBC, BMP 06/06/18 07:15 06/06/18 07:15 INR, PTT INR 0.91 (0.83-1.09) 06/05/18 00:30 Problem List - Problems (1) Acute on chronic respiratory failure with hypoxia and hypercapnia Code(s): J96.21 - ACUTE AND CHRONIC RESPIRATORY FAILURE WITH HYPOXIA; J96.22 - ACUTE AND CHRONIC RESPIRATORY FAILURE WITH HYPERCAPNIA Assessment/Plan Problem List - Problems (1) Acute respiratory failure Code(s): J96.00 - ACUTE RESPIRATORY FAILURE, UNSP W HYPOXIA OR HYPERCAPNIA (2) Shortness of breath Code(s): R06.02 - SHORTNESS OF BREATH (3) Dyspnea Code(s): R06.00 - DYSPNEA, UNSPECIFIED Qualifiers: Dyspnea type: shortness of breath Qualified Code(s): R06.02 - Shortness of breath; R06.00 - Dyspnea, unspecified; R06.01 - Orthopnea (4) ESRD (end stage renal disease) on dialysis Code(s): N18.6 - END STAGE RENAL DISEASE; Z99.2 - DEPENDENCE ON RENAL DIALYSIS (5) History of end stage renal disease Code(s): Z87.448 - PERSONAL HISTORY OF OTHER DISEASES OF URINARY SYSTEM (6) COPD exacerbation Code(s): J44.1 - CHRONIC OBSTRUCTIVE PULMONARY DISEASE W (ACUTE) EXACERBATION (7) Diabetes Code(s): E11.9 - TYPE 2 DIABETES MELLITUS WITHOUT COMPLICATIONS Qualifiers: Diabetes mellitus type: type 2 Diabetes mellitus termite renewal inspector insulin use: without termite renewal inspector use Diabetes mellitus complication status: with kidney complications Diabetes mellitus complication detail: with chronic kidney disease Chronic kidney disease stage: on chronic dialysis Qualified Code(s) : E11.22 - Type 2 diabetes mellitus with diabetic chronic kidney disease; N18.6 - End stage renal disease; Z99.2 - Dependence on renal dialysis (8) Hypercholesterolemia Code(s): E78.00 - PURE HYPERCHOLESTEROLEMIA, UNSPECIFIED (9) Hypertension Code(s): I10 - ESSENTIAL (PRIMARY) HYPERTENSION Qualifiers: Hypertension type: essential hypertension Qualified Code(s): I10 - Essential (primary) hypertension (10) Pneumonia Code(s): J18.9 - PNEUMONIA, UNSPECIFIED ORGANISM Qualifiers: Laterality: bilateral Lung location: lower lobe of lung Assessment/Plan Zosyn / Zithromax Aspiration precautions NIPPV support as needed VM O2 ID evaluation Medrol BD TX standing and PRN chest ct hd as per renal DR SANABRIA
--- NOTE | 2018-06-06 11:36 | PN ---
Teaching Attending Note Name of Resident: Basia Stevens ATTENDING PHYSICIAN STATEMENT I saw and evaluated the patient. I reviewed the resident's note and discussed the case with the resident. I agree with the resident's findings and plan as documented. SUBJECTIVE: No events over night.used BIPAP at night. could not communicate with her despite using director television phone. OBJECTIVE: NAD,awake, and alert . calm and cooperative. CV: RRR, no MRG lungs: R base crackles worse today Ext: no edema Abd: soft, NT, ND , NL BS A/P : 87 y/o lady with h/o ESRD on HD MWF, COPD on home O2, GERD, HTN, HLP, DM, and other medical problems with recent hospitalization for agitation who presented this time with SOB and productive cough. She was found to have RLL PNA 1- Acute hypoxic resp failure RLL PNA: - cont zosyn and azithro - blood cx neg to date - sputum cx pending - cont steroids . - BIPAP q HS and as needed. - now on NC, doing well - d/w renal, HD today as chest xray is worse with congestion and pleural effusions 2- ESRD with hyperkalemia: - d/w renal, HD today -resume losartan tomorrow 3- HTN: cont BB, norvasc and imdur, and resume losartan 4- Agitation with HD. cont zyprexa. out pt neuropsych eval Code status : full code for now DVT PX: heparin sq
--- NOTE | 2018-06-06 12:11 | PN ---
Progress Note, Physician History of Present Illness: Renal f/u Pt appears comfortable sitting up in bed with NC O2 in place Had BiPAP last night Had HD yesterday uneventfully with removal of 2 kgs - Current Medication List Current Medications: Active Medications Albuterol Sulfate (Ventolin 0.083% Nebulizer Soln -) 1 amp NEB Q6H PRN PRN Reason: SHORT OF BREATH/WHEEZING Albuterol/Ipratropium (Duoneb -) 1 amp NEB RQID [facility] Last Admin: 06/06/18 08:00 Dose: 1 amp Amlodipine Besylate (Norvasc -) 10 mg PO HS [facility] Last Admin: 06/05/18 21:37 Dose: 10 mg Guaifenesin (Mucinex -) 600 mg PO BID REPLAC[facility] BY [facility] Last Admin: 06/06/18 09:44 Dose: 600 mg Heparin Sodium (Porcine) (Heparin -) 5,000 unit SQ TID [facility] Last Admin: 06/06/18 06:45 Dose: 5,000 unit Azithromycin 250 mg/ Dextrose 250 mls @ 250 mls/hr IVPB DAILY [facility] Last Admin: 06/06/18 10:25 Dose: 250 mls/hr Piperacillin Sod/Tazobactam (Sod 2.25 gm/ Dextrose) 50 mls @ 100 mls/hr IVPB Q8H-IV [facility]; Protocol Last Admin: 06/06/18 09:44 Dose: 100 mls/hr Insulin Aspart (Novolog Vial Sliding Scale -) 1 vial SQ ACHS [facility]; Protocol Last Admin: 06/06/18 11:57 Dose: 8 units Isosorbide Mononitrate (Imdur -) 60 mg PO DAILY [facility]PLAC[facility] BY [facility] Last Admin: 06/06/18 09:44 Dose: 60 mg Methylprednisolone Sodium Succinate (Solu-Medrol -) 40 mg IVPUSH Q8H-IV [facility] Last Admin: 06/06/18 09:44 Dose: 40 mg Metoprolol Tartrate (Lopressor -) 50 mg PO BID [facility] Last Admin: 06/06/18 09:44 Dose: 50 mg Olanzapine (Zyprexa -) 5 mg PO BID REPLACED BY [facility] Last Admin: 06/06/18 09:44 Dose: 5 mg Potassium Phos/Sodium Phos (Phos-Nak Packet -) 1 packet PO TID REPLACED BY [facility] Last Admin: 06/06/18 06:46 Dose: Not Given Rosuvastatin Calcium (Crestor -) 10 mg PO HS [facility] Last Admin: 06/05/18 21:37 Dose: 10 mg Fluticasone/Salmeterol (Advair 100mcg/50mcg -) 1 puff IH BID [facility] Last Admin: 06/06/18 09:46 Dose: 1 puff - Objective Vital Signs: Vital Signs Temperature 97.2 F L 06/06/18 10:00 Pulse Rate 99 H 06/06/18 10:00 Respiratory Rate 20 06/06/18 10:00 Blood Pressure 130/59 L 06/06/18 10:00 O2 Sat by Pulse Oximetry (%) 93 L 06/06/18 08:30 Cardiovascular: Yes: S1, S2. No: JVD Respiratory: Yes: Diminished, Rales Gastrointestinal: Yes: Soft. No: Tenderness, Rebound Extremities: Yes: Other (AV access in LUE with thrill) Edema: No Labs: CBC, BMP 06/06/18 07:15 06/06/18 07:15 INR, PTT INR 0.91 (0.83-1.09) 06/05/18 00:30 Assessment/Plan Impression ESRD ON HD TIW PNA COPD with chronic hypoxia -exacerbation on continuous oxygen HFpEF HTN DM Plan D/C Neutrophos at this time Rpt CXR today Next HD tentatively 06/[address] R[address] labs in am Dr Molina
--- NOTE | 2018-06-06 13:45 | PN ---
Progress Note (short form) - Note Progress Note: Renal F/U CXR shows progressive effusions so will give another HD tx today Discussed with the Hospitalist Dr Molina
[2018-06-06 14:40] VITALS: BMI 19.2
[2018-06-06] MEDS: amLODIPine BESYLATE 10 MG TABLET (FP) PO SCH (21:52)
[2018-06-06] MEDS: ROSUVASTATIN CA 10 MG TABLET (FP) PO SCH (21:53)
[2018-06-07] MEDS ORDERED: DEXTROSE 5%-WATER - 50 ML IVPB ONE ×3 (01:24→17:18)
[2018-06-07] MEDS ORDERED: PIPERACILLIN/TAZOBACTAM 2.25 GM VIAL IVPB ONE ×3 (01:24→17:18)
[2018-06-07] MEDS: methylPREDNISolone NA SUCC 40 MG/1 ML VIAL IVPUSH SCH ×3 (01:40→17:21)
[2018-06-07] MEDS: PIPERACILLIN/TAZOB 2.25 GM 2.25 GM in DEXTROSE 5%-WATER - 50 ML IVPB SCH ×3 (01:40→17:21)
[2018-06-07] MEDS: NAPH,MB-DB/K PH,MBDB POWDER PACKET PO SCH ×3 (06:47→22:37)
[2018-06-07] MEDS: INSULIN SLIDING SCALE (NOVOLOG) 1 VIAL SQ SCH ×4 (06:47→22:38)
[2018-06-07] MEDS: HEPARIN NA (PORCINE) 5,000 UNITS/ML 1ML VIAL SQ SCH ×3 (06:47→22:38)
[2018-06-07 06:57] LABS: HEMATOCRIT 35.8 % (32.4-45.2); HEMOGLOBIN 11.4 GM/dL (10.7-15.3); MCH 27.1 pg (25.7-33.7); MCHC 31.7 g/dl (32.0-36.0); MEAN CELL VOLUME 85.2 fl (80-96); MEAN PLT VOLUME 9.5 fl (7.5-11.1); PLATELET COUNT 202 K/MM3 (134-434); RDW 15.8 % (11.6-15.6); WHITE BLOOD COUNT 12.2 K/mm3 (4.0-10.0)
[2018-06-07 07:17] LABS: ANION GAP 8 MMOL/L (8-16); BLOOD UREA NITROGEN 38 mg/dL (7-18); CALCIUM 8.9 mg/dL (8.5-10.1); CHLORIDE 98 mmol/L (98-107); CO2 31 mmol/L (21-32); CREATININE 4.4 mg/dL (0.55-1.3); GLUCOSE,RANDOM 209 mg/dL (74-106); MAGNESIUM 2.1 mg/dL (1.8-2.4); PHOSPHOROUS 6.1 mg/dL (2.5-4.9); POTASSIUM 4.4 mmol/L (3.5-5.1); SODIUM 138 mmol/L (136-145)
[2018-06-07] MEDS: ALBUTEROL SO4 2.5/IPRATROPIUM 0.5 INH SOL 3 ML VIAL.NEB. NEB SCH ×4 (08:07→19:50)
[2018-06-07] MEDS: guaiFENesin 600 MG TABLET.ER (FP) PO SCH ×2 (09:53→22:37)
[2018-06-07] MEDS: LOSARTAN POTASSIUM 50 MG TABLET (FP) PO SCH (09:53)
[2018-06-07] MEDS: OLANZapine 5 MG TABLET PO SCH ×2 (09:53→22:37)
[2018-06-07] MEDS: ISOSORBIDE MONONITRATE 60 MG TAB.SR.24H (FP) PO SCH (09:53)
[2018-06-07] MEDS: FLUTICASONE/SALMETEROL 100 MCG/50 MCG DISKUS IH SCH ×2 (09:54→22:46)
[2018-06-07] MEDS: METOPROLOL TARTRATE 50 MG TABLET (FP) PO SCH ×2 (09:55→22:38)
[2018-06-07] MEDS: AZITHROMYCIN IVPB 250 MG in DEXTROSE 5%-WATER - 250 ML IVPB SCH (10:46)
--- NOTE | 2018-06-07 11:04 | PN ---
Progress Note, Physician History of Present Illness: PULMONARY ALERT,COMFORTABLE,LESS DYSPNEIC ON NASAL CANNULA - Current Medication List Current Medications: Active Medications Albuterol Sulfate (Ventolin 0.083% Nebulizer Soln -) 1 amp NEB Q6H PRN PRN Reason: SHORT OF BREATH/WHEEZING Albuterol/Ipratropium (Duoneb -) 1 amp NEB RQID [facility] Last Admin: 06/07/18 08:07 Dose: 1 amp Amlodipine Besylate (Norvasc -) 10 mg PO HS [facility] Last Admin: 06/06/18 21:52 Dose: 10 mg Guaifenesin (Mucinex -) 600 mg PO BID [facility] Last Admin: 06/07/18 09:53 Dose: 600 mg Heparin Sodium (Porcine) (Heparin -) 5,000 unit SQ TID [facility] Last Admin: 06/07/18 06:47 Dose: 5,000 unit Azithromycin 250 mg/ Dextrose 250 mls @ 250 mls/hr IVPB DAILY [facility] Last Admin: 06/07/18 10:46 Dose: 250 mls/hr Piperacillin Sod/Tazobactam (Sod 2.25 gm/ Dextrose) 50 mls @ 100 mls/hr IVPB Q8H-IV [facility]; Protocol Last Admin: 06/07/18 09:55 Dose: 100 mls/hr Insulin Aspart (Novolog Vial Sliding Scale -) 1 vial SQ ACHS [facility]; Protocol Last Admin: 06/07/18 06:47 Dose: 2 units Isosorbide Mononitrate (Imdur -) 60 mg PO DAILY [facility] Last Admin: 06/07/18 09:53 Dose: 60 mg Losartan Potassium (Cozaar -) 50 mg PO DAILY [facility] Last Admin: 06/07/18 09:53 Dose: 50 mg Methylprednisolone Sodium Succinate (Solu-Medrol -) 40 mg IVPUSH Q8H-IV [facility] Last Admin: 06/07/18 09:55 Dose: 40 mg Metoprolol Tartrate (Lopressor -) 50 mg PO BID [facility] Last Admin: 06/07/18 09:55 Dose: 50 mg Olanzapine (Zyprexa -) 5 mg PO BID [facility] Last Admin: 06/07/18 09:53 Dose: 5 mg Potassium Phos/Sodium Phos (Phos-Nak Packet -) 1 packet PO TID [facility] Last Admin: 04/07/19 06:47 Dose: 1 packet Rosuvastatin Calcium (Crestor -) 10 mg PO HS [facility] Last Admin: 06/06/18 21:53 Dose: 10 mg Fluticasone/Salmeterol (Advair 100mcg/50mcg -) 1 puff IH BID [facility] Last Admin: 06/07/18 09:54 Dose: 1 puff - Objective Vital Signs: Vital Signs Temperature 97.5 F L 06/07/18 08:17 Pulse Rate 67 06/07/18 08:17 Respiratory Rate 20 06/07/18 08:17 Blood Pressure 113/52 L 06/07/18 08:17 O2 Sat by Pulse Oximetry (%) 93 L 06/07/18 08:20 Constitutional: Yes: Calm, Thin Eyes: Yes: WNL HENT: Yes: WNL Neck: Yes: WNL Cardiovascular: Yes: Regular Rate and Rhythm, S1, S2 Respiratory: Yes: Rales (SCATTERED CRACKLES AND RHONCHI), Rhonchi Gastrointestinal: Yes: Normal Bowel Sounds, Soft Extremities: Yes: WNL Edema: No Labs: CBC, BMP 06/07/18 06:00 06/07/18 06:00 INR, PTT INR 0.91 (0.83-1.09) 06/05/18 00:30 Problem List - Problems (1) Acute on chronic respiratory failure with hypoxia and hypercapnia Code(s): J96.21 - ACUTE AND CHRONIC RESPIRATORY FAILURE WITH HYPOXIA; J96.22 - ACUTE AND CHRONIC RESPIRATORY FAILURE WITH HYPERCAPNIA Assessment/Plan Problem List - Problems (1) Acute respiratory failure Code(s): J96.00 - ACUTE RESPIRATORY FAILURE, UNSP W HYPOXIA OR HYPERCAPNIA (2) Shortness of breath Code(s): R06.02 - SHORTNESS OF BREATH (3) Dyspnea Code(s): R06.00 - DYSPNEA, UNSPECIFIED Qualifiers: Dyspnea type: shortness of breath Qualified Code(s): R06.02 - Shortness of breath; R06.00 - Dyspnea, unspecified; R06.01 - Orthopnea (4) ESRD (end stage renal disease) on dialysis Code(s): N18.6 - END STAGE RENAL DISEASE; Z99.2 - DEPENDENCE ON RENAL DIALYSIS (5) History of end stage renal disease Code(s): Z87.448 - PERSONAL HISTORY OF OTHER DISEASES OF URINARY SYSTEM (6) COPD exacerbation Code(s): J44.1 - CHRONIC OBSTRUCTIVE PULMONARY DISEASE W (ACUTE) EXACERBATION (7) Diabetes Code(s): E11.9 - TYPE 2 DIABETES MELLITUS WITHOUT COMPLICATIONS Qualifiers: Diabetes mellitus type: type 2 Diabetes mellitus alf insulin use: without alf use Diabetes mellitus complication status: with kidney complications Diabetes mellitus complication detail: with chronic kidney disease Chronic kidney disease stage: on chronic dialysis Qualified Code(s) : E11.22 - Type 2 diabetes mellitus with diabetic chronic kidney disease; N18.6 - End stage renal disease; Z99.2 - Dependence on renal dialysis (8) Hypercholesterolemia Code(s): E78.00 - PURE HYPERCHOLESTEROLEMIA, UNSPECIFIED (9) Hypertension Code(s): I10 - ESSENTIAL (PRIMARY) HYPERTENSION Qualifiers: Hypertension type: essential hypertension Qualified Code(s): I10 - Essential (primary) hypertension (10) Pneumonia Code(s): J18.9 - PNEUMONIA, UNSPECIFIED ORGANISM Qualifiers: Laterality: bilateral Lung location: lower lobe of lung Assessment/Plan Zosyn / Zithromax Aspiration precautions NIPPV support as needed VM O2 ID evaluation Medrol same dose BD TX standing and PRN chest ct hd as per renal DR SANABRIA
[2018-06-07] MEDS: AMINO ACIDS/PROTEIN HYDROLYS 30 ML LIQUID.PKT PO SCH (11:56)
[2018-06-07] MEDS ORDERED: Insulin (LOG) Aspart 100 UNITS/ML VIAL SQ ONE (12:29)
[2018-06-07] MEDS ORDERED: INSULIN (NOVOLOG) ASPART 100 UNITS/ML 10ML VIAL SQ ONE (12:45)
[2018-06-07 14:26] LABS: ANION GAP 13 MMOL/L (8-16); BLOOD UREA NITROGEN 52 mg/dL (7-18); CHLORIDE 96 mmol/L (98-107); CO2 29 mmol/L (21-32); CREATININE 5.5 mg/dL (0.55-1.3); GLUCOSE,RANDOM 236 mg/dL (74-106); POTASSIUM 4.3 mmol/L (3.5-5.1); SODIUM 138 mmol/L (136-145)
[2018-06-07 14:27] LABS: CALCIUM 8.9 mg/dL (8.5-10.1)
[2018-06-07] MEDS ORDERED: POLYETHYLENE GLYCOL 3350 119 GM BTL PO ONE (16:08)
[2018-06-07] MEDS ORDERED: BISACODYL 10 MG SUPP.RECT RC ONE (16:08)
--- NOTE | 2018-06-07 16:11 | PN ---
Progress Note (short form) - Note Progress Note: Subjective: No fever or chills. denies any N/V. No SOB today but feels that she has abd pain. no BM in days Objective: Vital Signs: Last Vital Signs Temp Pulse Resp BP Pulse Ox 98.1 F 102 H 18 99/56 L 94 L 06/07/18 15:17 06/07/18 15:17 06/07/18 15:17 06/07/18 15:17 06/07/18 15:34 Laboratory Results - last 24 hr 06/06/18 06/06/18 06/07/18 18:02 21:51 06:00 WBC 12.2 H RBC 4.20 Hgb 11.4 Hct 35.8 MCV 85.2 MCH 27.1 MCHC 31.7 L RDW 15.8 H Plt Count 202 MPV 9.5 Sodium Potassium Chloride Carbon Dioxide Anion Gap BUN Creatinine Creat Clearance w eGFR POC Glucometer 177 213 Random Glucose Calcium Phosphorus Magnesium 06/07/18 06/07/18 06/07/18 06:00 06:21 11:54 WBC RBC Hgb Hct MCV MCH MCHC RDW Plt Count MPV Sodium 138 Potassium 4.4 Chloride 98 Carbon Dioxide 31 Anion Gap 8 BUN 38 H Creatinine 4.4 H Creat Clearance w eGFR 9.47 POC Glucometer 188 426 Random Glucose 209 H Calcium 8.9 Phosphorus 6.1 H Magnesium 2.1 06/07/18 06/07/18 13:16 13:49 WBC RBC Hgb Hct MCV MCH MCHC RDW Plt Count MPV Sodium 138 Potassium 4.3 Chloride 96 L Carbon Dioxide 29 Anion Gap 13 BUN 52 H Creatinine 5.5 H Creat Clearance w eGFR 7.32 POC Glucometer 272 Random Glucose 236 H Calcium 8.9 Phosphorus Magnesium Physical Exam: NAD,awake, and alert . calm and cooperative.daughter at bedside CV: RRR, no MRG lungs:L base crackles today Ext: no edema Abd: soft, minimal tenderness in al l quadrants , ND , NL BS A/P : 87 y/o lady with h/o ESRD on HD MWF, COPD on home O2, GERD, HTN, HLP, DM, and other medical problems with recent hospitalization for agitation who presented this time with SOB and productive cough. She was found to have RLL PNA 1- Acute hypoxic resp failure RLL PNA: - cont zosyn and azithro day 3 - blood cx neg to date - sputum cx pending - cont steroids . - BIPAP q HS and as needed. 2- ESRD with hyperkalemia: -HD per schedule from now on -no hyperkalemia 3- HTN: cont BB, norvasc , losartan and imdur 4- Agitation with HD. cont zyprexa. out pt neuropsych eval Code status : full code for now DVT PX: heparin sq Visit type - Emergency Visit Emergency Visit: Yes ED Registration Date: 06/05/18 Care time: The patient presented to the Emergency Department on the above date and was hospitalized for further evaluation of their emergent condition. - New Patient This patient is new to me today: No - Critical Care Critical Care patient: No
--- NOTE | 2018-06-07 17:59 | EKG ---
Test Reason : Blood Pressure : / mmHG Vent. Rate : 089 BPM Atrial Rate : 089 BPM P-R Int : 160 ms QRS Dur : 080 ms QT Int : 342 ms P-R-T Axes : 051 064 079 degrees QTc Int : 416 ms SINUS RHYTHM WITH OCCASIONAL PREMATURE VENTRICULAR COMPLEXES MODERATE VOLTAGE CRITERIA FOR LVH, MAY BE NORMAL VARIANT BORDERLINE ECG WHEN COMPARED WITH ECG OF 05-JUN-2018 12:30, PREMATURE VENTRICULAR COMPLEXES ARE NOW PRESENT Confirmed by GONZALO DEXTER MD ([id number]) on 06/07/2018 5:58:46 PM Referred By: Laurent WHITE Confirmed By:GONZALO DEXTER MD
[2018-06-07 18:39] LABS: ANION GAP 13 MMOL/L (8-16); BLOOD UREA NITROGEN 65 mg/dL (7-18); CALCIUM 8.5 mg/dL (8.5-10.1); CHLORIDE 97 mmol/L (98-107); CO2 29 mmol/L (21-32); CREATININE 5.9 mg/dL (0.55-1.3); GLUCOSE,RANDOM 260 mg/dL (74-106); POTASSIUM 4.3 mmol/L (3.5-5.1); SODIUM 139 mmol/L (136-145)
--- NOTE | 2018-06-07 20:29 | PN ---
Progress Note, Physician History of Present Illness: Renal f/u Pt looks and feels much better today Not tachypneic with VM in place Family at bedside - Current Medication List Current Medications: Active Medications Albuterol Sulfate (Ventolin 0.083% Nebulizer Soln -) 1 amp NEB Q6H PRN PRN Reason: SHORT OF BREATH/WHEEZING Albuterol/Ipratropium (Duoneb -) 1 amp NEB RQID [facility] Last Admin: 06/07/18 15:35 Dose: Not Given Amino Acids (Prosource No Carb Liquid Pkt) 30 ml PO DAILY@0800 [facility] Last Admin: 06/07/18 11:56 Dose: 30 ml Amlodipine Besylate (Norvasc -) 10 mg PO HS [facility] Last Admin: 06/06/18 21:52 Dose: 10 mg Guaifenesin (Mucinex -) 600 mg PO BID [facility] Last Admin: 06/07/18 09:53 Dose: 600 mg Heparin Sodium (Porcine) (Heparin -) 5,000 unit SQ TID [facility] Last Admin: 06/07/18 15:14 Dose: 5,000 unit Azithromycin 250 mg/ Dextrose 250 mls @ 250 mls/hr IVPB DAILY [facility] Last Admin: 06/07/18 10:46 Dose: 250 mls/hr Piperacillin Sod/Tazobactam (Sod 2.25 gm/ Dextrose) 50 mls @ 100 mls/hr IVPB Q8H-IV [facility]; Protocol Last Admin: 06/07/18 17:21 Dose: 100 mls/hr Insulin Aspart (Novolog Vial Sliding Scale -) 1 vial SQ ACHS [facility]; Protocol Last Admin: 06/07/18 17:12 Dose: 4 units Isosorbide Mononitrate (Imdur -) 60 mg PO DAILY [facility] Last Admin: 06/07/18 09:53 Dose: 60 mg Losartan Potassium (Cozaar -) 50 mg PO DAILY [facility] Last Admin: 06/07/18 09:53 Dose: 50 mg Methylprednisolone Sodium Succinate (Solu-Medrol -) 40 mg IVPUSH Q8H-IV [facility] Last Admin: 06/07/18 17:21 Dose: 40 mg Metoprolol Tartrate (Lopressor -) 50 mg PO BID [facility] Last Admin: 06/07/18 09:55 Dose: 50 mg Olanzapine (Zyprexa -) 5 mg PO BID [facility] Last Admin: 06/07/18 09:53 Dose: 5 mg Polyethylene Glycol (Miralax (For Daily Use) -) 17 gm PO DAILY [facility] Potassium Phos/Sodium Phos (Phos-Nak Packet -) 1 packet PO TID [facility] Last Admin: 06/07/18 15:14 Dose: 1 packet Rosuvastatin Calcium (Crestor -) 10 mg PO HS [facility] Last Admin: 06/06/18 21:53 Dose: 10 mg Fluticasone/Salmeterol (Advair 100mcg/50mcg -) 1 puff IH BID [facility] Last Admin: 06/07/18 09:54 Dose: 1 puff Senna (Senna -) 1 tab PO BID [facility] - Objective Vital Signs: Vital Signs Temperature 98.1 F 06/07/18 15:17 Pulse Rate 102 H 06/07/18 15:17 Respiratory Rate 18 06/07/18 15:17 Blood Pressure 99/56 L 06/07/18 15:17 O2 Sat by Pulse Oximetry (%) 94 L 06/07/18 15:34 Cardiovascular: Yes: S1, S2, Other (Decreased adventitious lung sounds today) Gastrointestinal: Yes: Soft. No: Tenderness, Rebound Musculoskeletal: Yes: Other (AVF in LUE with thrill) Edema: No Labs: CBC, BMP 06/07/18 06:00 06/07/18 17:50 INR, PTT INR 0.91 (0.83-1.09) 06/05/18 00:30 Assessment/Plan Impression ESRD ON HD TIW PNA COPD exacerbation with chronic hypoxia requiring continuous oxygen HFpEF HTN DM with exacerbation on steroids Plan Next HD tentatively 06/08 since pt usually dialyzed MWF- orders written Steroids Abx Insulin Dr Molina
[2018-06-07] MEDS: amLODIPine BESYLATE 10 MG TABLET (FP) PO SCH (22:37)
[2018-06-07] MEDS: ROSUVASTATIN CA 10 MG TABLET (FP) PO SCH (22:37)
[2018-06-07] MEDS: SENNOSIDES 8.6MG TABLET (FP) PO SCH (22:37)
[2018-06-08] MEDS ORDERED: PIPERACILLIN/TAZOBACTAM 2.25 GM VIAL IVPB ONE ×2 (01:07→11:16)
[2018-06-08] MEDS ORDERED: DEXTROSE 5%-WATER - 50 ML IVPB ONE ×2 (01:08→11:17)
[2018-06-08] MEDS: PIPERACILLIN/TAZOB 2.25 GM 2.25 GM in DEXTROSE 5%-WATER - 50 ML IVPB SCH ×3 (01:13→19:05)
[2018-06-08] MEDS: methylPREDNISolone NA SUCC 40 MG/1 ML VIAL IVPUSH SCH ×4 (01:13→21:39)
[2018-06-08] MEDS: NAPH,MB-DB/K PH,MBDB POWDER PACKET PO SCH ×3 (05:54→21:39)
[2018-06-08] MEDS: INSULIN SLIDING SCALE (NOVOLOG) 1 VIAL SQ SCH ×4 (06:08→21:39)
[2018-06-08] MEDS: HEPARIN NA (PORCINE) 5,000 UNITS/ML 1ML VIAL SQ SCH ×2 (06:08→16:49)
[2018-06-08] MEDS: ALBUTEROL SO4 2.5/IPRATROPIUM 0.5 INH SOL 3 ML VIAL.NEB. NEB SCH ×4 (07:45→20:15)
--- NOTE | 2018-06-08 07:47 | EKG ---
Test Reason : Blood Pressure : / mmHG Vent. Rate : 100 BPM Atrial Rate : 100 BPM P-R Int : 206 ms QRS Dur : 086 ms QT Int : 374 ms P-R-T Axes : 086 074 067 degrees QTc Int : 482 ms SINUS RHYTHM WITH PREMATURE ATRIAL COMPLEXES VOLTAGE CRITERIA FOR LEFT VENTRICULAR HYPERTROPHY T WAVE ABNORMALITY, CONSIDER LATERAL ISCHEMIA PROLONGED QT ABNORMAL ECG WHEN COMPARED WITH ECG OF 05-JUN-2018 00:38, PREMATURE ATRIAL COMPLEXES ARE NOW PRESENT QRS AXIS SHIFTED RIGHT T WAVE INVERSION NOW EVIDENT IN LATERAL LEADS Confirmed by MOUSTAPHA MIDDLETON, GAIL ([id number]) on 06/05/2018 12:22:12 PM Referred By: Confirmed By:GAIL GERARD MD
[2018-06-08 08:03] LABS: BASO % 0.5 % (0-2.0); HEMATOCRIT 35.2 % (32.4-45.2); HEMOGLOBIN 11.3 GM/dL (10.7-15.3); MCH 27.5 pg (25.7-33.7); MEAN CELL VOLUME 85.8 fl (80-96); MEAN PLT VOLUME 10.7 fl (7.5-11.1); MONO % 2.5 % (3.8-10.2); PLATELET COUNT 252 K/MM3 (134-434); RDW 15.5 % (11.6-15.6); WHITE BLOOD COUNT 14.8 K/mm3 (4.0-10.0)
[2018-06-08 08:23] LABS: ANION GAP 14 MMOL/L (8-16); BLOOD UREA NITROGEN 84 mg/dL (7-18); CALCIUM 8.1 mg/dL (8.5-10.1); CHLORIDE 94 mmol/L (98-107); CO2 28 mmol/L (21-32); CREATININE 7.2 mg/dL (0.55-1.3); GLUCOSE,RANDOM 238 mg/dL (74-106); POTASSIUM 4.6 mmol/L (3.5-5.1); SODIUM 136 mmol/L (136-145)
[2018-06-08] MEDS: AMINO ACIDS/PROTEIN HYDROLYS 30 ML LIQUID.PKT PO SCH (08:50)
--- NOTE | 2018-06-08 10:06 | PN ---
Progress Note (short form) - Note Progress Note: clinically improved sitting up in bed no complaints Vital Signs Period Temp Pulse Resp BP Sys/Betancourt Pulse Ox Last 24 Hr 97.6 F-98.7 F 87-104 18-20 99-113/43-56 94-99 cor-rrr lungs decreased bs at bases abd soft,nt ext no edema CBC, BMP 06/08/18 06:20 06/08/18 06:20 Microbiology 06/05/18 08:45 Blood - Peripheral Venous Blood Culture - Preliminary NO GROWTH OBTAINED AFTER 48 HOURS, INCUBATION TO CONTINUE FOR 3 DAYS. 06/05/18 17:19 Blood - Peripheral Venous Blood Culture - Preliminary NO GROWTH OBTAINED AFTER 48 HOURS, INCUBATION TO CONTINUE FOR 3 DAYS. 06/05/18 06:30 Urine For Antigen Detection Legionella Antigen - Final 06/05/18 06:30 Urine For Antigen Detection Streptococcus pneumoniae Antigen (M - Final Current Medications Albuterol Sulfate (Ventolin 0.083% Nebulizer Soln -) 1 amp NEB Q6H PRN PRN Reason: SHORT OF BREATH/WHEEZING Albuterol/Ipratropium (Duoneb -) 1 amp NEB RQID [facility] Last Admin: 06/08/18 07:45 Dose: 1 amp Amino Acids (Prosource No Carb Liquid Pkt) 30 ml PO DAILY@0800 [facility] Last Admin: 06/08/18 08:50 Dose: Not Given Amlodipine Besylate (Norvasc -) 10 mg PO HS [facility] Last Admin: 06/07/18 22:37 Dose: 10 mg Guaifenesin (Mucinex -) 600 mg PO BID [facility] Last Admin: 06/07/18 22:37 Dose: 600 mg Heparin Sodium (Porcine) (Heparin -) 5,000 unit SQ TID [facility] Last Admin: 06/08/18 06:08 Dose: 5,000 unit Azithromycin 250 mg/ Dextrose 250 mls @ 250 mls/hr IVPB DAILY [facility] Last Admin: 06/07/18 10:46 Dose: 250 mls/hr Piperacillin Sod/Tazobactam (Sod 2.25 gm/ Dextrose) 50 mls @ 100 mls/hr IVPB Q8H-IV [facility]; Protocol Last Admin: 06/08/18 01:13 Dose: 100 mls/hr Insulin Aspart (Novolog Vial Sliding Scale -) 1 vial SQ ACHS [facility]; Protocol Last Admin: 06/08/18 06:08 Dose: 4 units Isosorbide Mononitrate (Imdur -) 60 mg PO DAILY [facility] Last Admin: 06/07/18 09:53 Dose: 60 mg Losartan Potassium (Cozaar -) 50 mg PO DAILY [facility] Last Admin: 06/07/18 09:53 Dose: 50 mg Methylprednisolone Sodium Succinate (Solu-Medrol -) 40 mg IVPUSH Q8H-IV [facility] Last Admin: 06/08/18 01:13 Dose: 40 mg Metoprolol Tartrate (Lopressor -) 50 mg PO BID [facility] Last Admin: 06/07/18 22:38 Dose: 50 mg Olanzapine (Zyprexa -) 5 mg PO BID [facility] Last Admin: 06/07/18 22:37 Dose: 5 mg Polyethylene Glycol (Miralax (For Daily Use) -) 17 gm PO DAILY [facility] Potassium Phos/Sodium Phos (Phos-Nak Packet -) 1 packet PO TID [facility] Last Admin: 06/08/18 05:54 Dose: Not Given Rosuvastatin Calcium (Crestor -) 10 mg PO HS [facility] Last Admin: 06/07/18 22:37 Dose: 10 mg Fluticasone/Salmeterol (Advair 100mcg/50mcg -) 1 puff IH BID [facility] Last Admin: 06/07/18 22:46 Dose: Not Given Senna (Senna -) 1 tab PO BID [facility] Last Admin: 06/07/18 22:37 Dose: 1 tab a/p HAP COPD home oxygen esrd/hd day #3 zosyn/zithromax suspect leukocytosis is due to steroids clinically improved HD today consider switch to po augmentin 500 mg daily to complete 7 days
[2018-06-08] MEDS: SENNOSIDES 8.6MG TABLET (FP) PO SCH ×2 (10:20→21:39)
[2018-06-08] MEDS: POLYETHYLENE GLYCOL 3350 119 GM BTL PO SCH ×2 (10:20→16:48)
[2018-06-08] MEDS ORDERED: PT OWN MED DRAWER 7, Y5N ONE (11:16)
[2018-06-08] MEDS: OLANZapine 5 MG TABLET PO SCH ×2 (11:20→21:39)
[2018-06-08 11:24] LABS: ANISOCYTOSIS 0; MACROCYTOSIS 0; OVALOCYTE 1+; PLATELET ESTIMATE NORMAL; TARGET CELLS 1+
--- NOTE | 2018-06-08 12:07 | PN ---
Progress Note, Physician History of Present Illness: PULMONARY ALERT,FEELING BETTER,LESS DYSPNEIC,LESS CONGESTED - Current Medication List Current Medications: Active Medications Albuterol Sulfate (Ventolin 0.083% Nebulizer Soln -) 1 amp NEB Q6H PRN PRN Reason: SHORT OF BREATH/WHEEZING Albuterol/Ipratropium (Duoneb -) 1 amp NEB RQID [facility] Last Admin: 06/08/18 11:58 Dose: 1 amp Amino Acids (Prosource No Carb Liquid Pkt) 30 ml PO DAILY@0800 [facility] Last Admin: 06/08/18 08:50 Dose: Not Given Amlodipine Besylate (Norvasc -) 10 mg PO HS [facility] Last Admin: 06/07/18 22:37 Dose: 10 mg Guaifenesin (Mucinex -) 600 mg PO BID [facility] Last Admin: 06/07/18 22:37 Dose: 600 mg Heparin Sodium (Porcine) (Heparin -) 5,000 unit SQ TID [facility] Last Admin: 06/08/18 06:08 Dose: 5,000 unit Azithromycin 250 mg/ Dextrose 250 mls @ 250 mls/hr IVPB DAILY [facility] Last Admin: 06/07/18 10:46 Dose: 250 mls/hr Piperacillin Sod/Tazobactam (Sod 2.25 gm/ Dextrose) 50 mls @ 100 mls/hr IVPB Q8H-IV [facility]; Protocol Last Admin: 06/08/18 01:13 Dose: 100 mls/hr Insulin Aspart (Novolog Vial Sliding Scale -) 1 vial SQ ACHS [facility]; Protocol Last Admin: 06/08/18 06:08 Dose: 4 units Isosorbide Mononitrate (Imdur -) 60 mg PO DAILY [facility] Last Admin: 06/07/18 09:53 Dose: 60 mg Losartan Potassium (Cozaar -) 50 mg PO DAILY [facility] Last Admin: 06/07/18 09:53 Dose: 50 mg Methylprednisolone Sodium Succinate (Solu-Medrol -) 40 mg IVPUSH Q8H-IV [facility] Last Admin: 06/08/18 01:13 Dose: 40 mg Metoprolol Tartrate (Lopressor -) 50 mg PO BID [facility] Last Admin: 06/07/18 22:38 Dose: 50 mg Olanzapine (Zyprexa -) 5 mg PO BID [facility] Last Admin: 06/07/18 22:37 Dose: 5 mg Polyethylene Glycol (Miralax (For Daily Use) -) 17 gm PO DAILY [facility] Potassium Phos/Sodium Phos (Phos-Nak Packet -) 1 packet PO TID [facility] Last Admin: 06/08/18 05:54 Dose: Not Given Rosuvastatin Calcium (Crestor -) 10 mg PO HS [facility] Last Admin: 06/07/18 22:37 Dose: 10 mg Fluticasone/Salmeterol (Advair 100mcg/50mcg -) 1 puff IH BID [facility] Last Admin: 06/07/18 22:46 Dose: Not Given Senna (Senna -) 1 tab PO BID [facility] Last Admin: 06/07/18 22:37 Dose: 1 tab - Objective Vital Signs: Vital Signs Temperature 98.1 F 06/08/18 06:38 Pulse Rate 87 06/08/18 06:38 Respiratory Rate 20 06/08/18 06:38 Blood Pressure 112/56 L 06/08/18 06:38 O2 Sat by Pulse Oximetry (%) 99 06/08/18 07:45 Constitutional: Yes: Calm, Thin Eyes: Yes: WNL HENT: Yes: WNL Neck: Yes: WNL Cardiovascular: Yes: Regular Rate and Rhythm, S1, S2 Respiratory: Yes: Rales, Rhonchi (KAITLIN CRACKLES AND RHONCHI) Gastrointestinal: Yes: Normal Bowel Sounds, Soft Extremities: Yes: WNL Edema: No Labs: CBC, BMP 06/08/18 06:20 06/08/18 06:20 INR, PTT INR 0.91 (0.83-1.09) 06/05/18 00:30 Problem List - Problems (1) Acute on chronic respiratory failure with hypoxia and hypercapnia Code(s): J96.21 - ACUTE AND CHRONIC RESPIRATORY FAILURE WITH HYPOXIA; J96.22 - ACUTE AND CHRONIC RESPIRATORY FAILURE WITH HYPERCAPNIA Assessment/Plan Problem List - Problems (1) Acute respiratory failure Code(s): J96.00 - ACUTE RESPIRATORY FAILURE, UNSP W HYPOXIA OR HYPERCAPNIA (2) Shortness of breath Code(s): R06.02 - SHORTNESS OF BREATH (3) Dyspnea Code(s): R06.00 - DYSPNEA, UNSPECIFIED Qualifiers: Dyspnea type: shortness of breath Qualified Code(s): R06.02 - Shortness of breath; R06.00 - Dyspnea, unspecified; R06.01 - Orthopnea (4) ESRD (end stage renal disease) on dialysis Code(s): N18.6 - END STAGE RENAL DISEASE; Z99.2 - DEPENDENCE ON RENAL DIALYSIS (5) History of end stage renal disease Code(s): Z87.448 - PERSONAL HISTORY OF OTHER DISEASES OF URINARY SYSTEM (6) COPD exacerbation Code(s): J44.1 - CHRONIC OBSTRUCTIVE PULMONARY DISEASE W (ACUTE) EXACERBATION (7) Diabetes Code(s): E11.9 - TYPE 2 DIABETES MELLITUS WITHOUT COMPLICATIONS Qualifiers: Diabetes mellitus type: type 2 Diabetes mellitus sap architect insulin use: without sap architect use Diabetes mellitus complication status: with kidney complications Diabetes mellitus complication detail: with chronic kidney disease Chronic kidney disease stage: on chronic dialysis Qualified Code(s) : E11.22 - Type 2 diabetes mellitus with diabetic chronic kidney disease; N18.6 - End stage renal disease; Z99.2 - Dependence on renal dialysis (8) Hypercholesterolemia Code(s): E78.00 - PURE HYPERCHOLESTEROLEMIA, UNSPECIFIED (9) Hypertension Code(s): I10 - ESSENTIAL (PRIMARY) HYPERTENSION Qualifiers: Hypertension type: essential hypertension Qualified Code(s): I10 - Essential (primary) hypertension (10) Pneumonia Code(s): J18.9 - PNEUMONIA, UNSPECIFIED ORGANISM Qualifiers: Laterality: bilateral Lung location: lower lobe of lung Assessment/Plan Zosyn / Zithromax Aspiration precautions NIPPV support as needed VM O2 ID evaluation Medrol taper BD TX standing and prn hd as per renal DR SANABRIA
[2018-06-08] MEDS: FLUTICASONE/SALMETEROL 100 MCG/50 MCG DISKUS IH SCH ×2 (12:26→21:38)
[2018-06-08] MEDS: guaiFENesin 600 MG TABLET.ER (FP) PO SCH ×2 (12:30→21:39)
--- NOTE | 2018-06-08 12:56 | PN ---
Progress Note, Physician History of Present Illness: Pt seen and examined at bedside. She appears comfortable. She denies shortness of breath. - Current Medication List Current Medications: Active Medications Albuterol Sulfate (Ventolin 0.083% Nebulizer Soln -) 1 amp NEB Q6H PRN PRN Reason: SHORT OF BREATH/WHEEZING Albuterol/Ipratropium (Duoneb -) 1 amp NEB RQID [facility] Last Admin: 06/08/18 11:58 Dose: 1 amp Amino Acids (Prosource No Carb Liquid Pkt) 30 ml PO DAILY@0800 [facility] Last Admin: 06/08/18 08:50 Dose: Not Given Amlodipine Besylate (Norvasc -) 10 mg PO HS [facility] Last Admin: 06/07/18 22:37 Dose: 10 mg Guaifenesin (Mucinex -) 600 mg PO BID [facility] Last Admin: 06/08/18 12:30 Dose: 600 mg Heparin Sodium (Porcine) (Heparin -) 5,000 unit SQ TID [facility] Last Admin: 06/08/18 06:08 Dose: 5,000 unit Azithromycin 250 mg/ Dextrose 250 mls @ 250 mls/hr IVPB DAILY [facility] Last Admin: 06/07/18 10:46 Dose: 250 mls/hr Piperacillin Sod/Tazobactam (Sod 2.25 gm/ Dextrose) 50 mls @ 100 mls/hr IVPB Q8H-IV [facility]; Protocol Last Admin: 06/08/18 12:40 Dose: 100 mls/hr Insulin Aspart (Novolog Vial Sliding Scale -) 1 vial SQ ACHS [facility]; Protocol Last Admin: 06/08/18 12:25 Dose: 8 units Isosorbide Mononitrate (Imdur -) 60 mg PO DAILY [facility] Last Admin: 06/07/18 09:53 Dose: 60 mg Losartan Potassium (Cozaar -) 50 mg PO DAILY [facility] Last Admin: 06/07/18 09:53 Dose: 50 mg Methylprednisolone Sodium Succinate (Solu-Medrol -) 40 mg IVPUSH BID [facility] Last Admin: 06/08/18 12:31 Dose: 40 mg Metoprolol Tartrate (Lopressor -) 50 mg PO BID [facility] Last Admin: 06/07/18 22:38 Dose: 50 mg Olanzapine (Zyprexa -) 5 mg PO BID [facility] Last Admin: 06/07/18 22:37 Dose: 5 mg Polyethylene Glycol (Miralax (For Daily Use) -) 17 gm PO DAILY [facility] Potassium Phos/Sodium Phos (Phos-Nak Packet -) 1 packet PO TID [facility] Last Admin: 06/08/18 05:54 Dose: Not Given Rosuvastatin Calcium (Crestor -) 10 mg PO HS [facility] Last Admin: 06/07/18 22:37 Dose: 10 mg Fluticasone/Salmeterol (Advair 100mcg/50mcg -) 1 puff IH BID [facility] Last Admin: 06/08/18 12:26 Dose: 1 puff Senna (Senna -) 1 tab PO BID [facility] Last Admin: 06/07/18 22:37 Dose: 1 tab - Objective Vital Signs: Vital Signs Temperature 98.1 F 06/08/18 06:38 Pulse Rate 87 06/08/18 06:38 Respiratory Rate 20 06/08/18 06:38 Blood Pressure 112/56 L 06/08/18 06:38 O2 Sat by Pulse Oximetry (%) 99 06/08/18 07:45 Constitutional: Yes: Calm Eyes: Yes: Conjunctiva Clear HENT: Yes: Atraumatic Neck: Yes: Supple Cardiovascular: Yes: S1, S2 Respiratory: Yes: CTA Bilaterally Gastrointestinal: Yes: Soft Genitourinary: Yes: WNL Musculoskeletal: Yes: WNL Edema: No Neurological: Yes: Confusion Labs: CBC, BMP 06/08/18 06:20 06/08/18 06:20 INR, PTT INR 0.91 (0.83-1.09) 06/05/18 00:30 Assessment/Plan Current Medications Generic Name Dose Route Start Last Admin Trade Name Freq PRN Reason Stop Dose Admin Albuterol Sulfate 1 amp 06/05/18 04:34 Ventolin 0.083% Nebulizer Soln - NEB Q6H PRN SHORT OF BREATH/WHEEZING Albuterol/Ipratropium 1 amp 06/05/18 16:00 06/08/18 11:58 Duoneb - NEB 1 amp RQID [facility] Administration Amino Acids 30 ml 06/07/18 11:30 06/08/18 08:50 Prosource No Carb Liquid Pkt PO Not Given DAILY@0800 [facility] Amlodipine Besylate 10 mg 06/05/18 22:00 06/07/18 22:37 Norvasc - PO 10 mg HS [facility] Administration Guaifenesin 600 mg 06/05/18 10:00 06/08/18 12:30 Mucinex - PO 600 mg BID [facility] Administration Heparin Sodium (Porcine) 5,000 unit 06/05/18 22:00 06/08/18 06:08 Heparin - SQ 5,000 unit TID [facility] Administration Azithromycin 250 mg/ Dextrose 250 mls @ 250 mls/hr 06/05/18 10:00 06/07/18 10 :46 IVPB 250 mls/hr DAILY [facility] Administration Piperacillin Sod/Tazobactam 50 mls @ 100 mls/hr 06/05/18 18:00 06/08/18 12:40 Sod 2.25 gm/ Dextrose IVPB 100 mls/hr Q8H-IV [facility] Administration Protocol Insulin Aspart 1 vial 06/05/18 07:00 06/08/18 12:25 Novolog Vial Sliding Scale - SQ 8 units ACHS [facility] Administration Protocol Isosorbide Mononitrate 60 mg 06/05/18 10:00 06/07/18 09:53 Imdur - PO 60 mg DAILY [facility] Administration Losartan Potassium 50 mg 06/07/18 10:00 06/07/18 09:53 Cozaar - PO 50 mg DAILY [facility] Administration Methylprednisolone Sodium Succinate 40 mg 06/08/18 12:15 06/08/18 12:31 Solu-Medrol - IVPUSH 40 mg BID [facility] Administration Metoprolol Tartrate 50 mg 06/05/18 10:00 06/07/18 22:38 Lopressor - PO 50 mg BID [facility] Administration Olanzapine 5 mg 06/05/18 10:00 06/07/18 22:37 Zyprexa - PO 5 mg BID [facility] Administration Polyethylene Glycol 17 gm 06/08/18 10:00 Miralax (For Daily Use) - PO DAILY [facility] Potassium Phos/Sodium Phos 1 packet 06/05/18 06:00 06/08/18 05:54 Phos-Nak Packet - PO Not Given TID [facility] Rosuvastatin Calcium 10 mg 06/05/18 22:00 06/07/18 22:37 Crestor - PO 10 mg HS [facility] Administration Fluticasone/Salmeterol 1 puff 06/05/18 10:00 06/08/18 12:26 Advair 100mcg/50mcg - IH 1 puff BID [facility] Administration Senna 1 tab 06/07/18 22:00 06/07/18 22:37 Senna - PO 1 tab BID [facility] Administration Impression 1. ESRD 2. HTN 3. HLD 4. COPD 5. DM 6. pos heb b core 7. confusion with altered mental status 8. anemia Plan - will arrange for HD tomorrow - pt off of HD schedule - monitor bp - pt now on zyprexa - renal diet can care for her at home
--- NOTE | 2018-06-08 14:33 | PN ---
Teaching Attending Note Name of Resident: Lyudmila Rasmussen ATTENDING PHYSICIAN STATEMENT I saw and evaluated the patient. I reviewed the resident's note and discussed the case with the resident. I agree with the resident's findings and plan as documented. SUBJECTIVE: no fever or chills. No ART . SOB is better. no PC . had a BM and Abd feels better OBJECTIVE: NAD,awake, and alert. calm and cooperative.daughter at bedside CV: RRR, no MRG lungs: L base crackles today Ext: no edema Abd: soft, minimal tenderness in all quadrants , ND , NL BS A/P : 87 y/o lady with h/o ESRD on HD MWF, COPD on home O2, GERD, HTN, HLP, DM, and other medical problems with recent hospitalization for agitation who presented this time with SOB and productive cough. She was found to have RLL PNA 1- Acute hypoxic resp failure RLL PNA: - cont zosyn and azithro day 4 - blood cx neg to date - sputum cx not done - cont steroids . leukocytosis is likely due to that - BIPAP q HS and as needed. 2- ESRD - HD per renal 3- HTN: cont BB, norvasc , losartan and imdur 4- DM with hyperglycemia. not on any meds at home. now on steroids - cont SSI now - A1c - might need po agents at dc 5- Agitation with HD. cont zyprexa. out pt neuropsych eval Code status : full code DVT PX: heparin sq Rehab at dc when ready
--- NOTE | 2018-06-08 15:04 | PN ---
Physical Exam: SUBJECTIVE: Patient seen and examined this AM. No acute over night events as per nursing staff. Patient tolerated NIPPV overnight. She admits to feeling somewhat better however continues to have nonproductive cough. Had BM yesterday. Denies any SOB, Chest pain, fevers, chills. OBJECTIVE: Vital Signs Period Temp Pulse Resp BP Sys/Betancourt Pulse Ox Last 24 Hr 97.6 F-98.7 F 87-104 18-20 99-113/43-56 94-99 GENERAL: The patient is awake, alert, and fully oriented, in no acute distress. HEAD: NCAT EYES: PERRL, EOMI ENT: moist mucous membranes. NECK: Supple, No JVD LUNGS: Rales at the L Base, no wheezes, no crackles HEART: Regular rate and rhythm, S1, S2 without murmur ABDOMEN: Soft, nontender, nondistended, + bowel sounds, no guarding EXTREMITIES: No edema. LUE Fistula with palpable thrill and audible bruit NEUROLOGICAL: Cranial nerves II through XII grossly intact. Normal speech. SKIN: Warm, dry Laboratory Results - last 24 hr 06/07/18 06/07/18 06/07/18 17:06 17:50 22:36 WBC RBC Hgb Hct MCV MCH MCHC RDW Plt Count MPV Absolute Neuts (auto) Neutrophils % Neutrophils % (Manual) Band Neutrophils % Lymphocytes % Lymphocytes % (Manual) Monocytes % Monocytes % (Manual) Eosinophils % Eosinophils % (Manual) Basophils % Basophils % (Manual) Myelocytes % (Man) Promyelocytes % (Man) Blast Cells % (Manual) Nucleated RBC % Metamyelocytes Hypochromia Platelet Estimate Polychromasia Poikilocytosis Anisocytosis Microcytosis Macrocytosis Target Cells Ovalocytes Sodium 139 Potassium 4.3 Chloride 97 L Carbon Dioxide 29 Anion Gap 13 BUN 65 H Creatinine 5.9 H Creat Clearance w eGFR 6.75 POC Glucometer 210 212 Random Glucose 260 H Hemoglobin A1c % Calcium 8.5 06/08/18 06/08/18 06/08/18 06:07 06:20 06:20 WBC 14.8 H RBC 4.10 Hgb 11.3 Hct 35.2 MCV 85.8 MCH 27.5 MCHC 32.0 RDW 15.5 Plt Count 252 D MPV 10.7 D Absolute Neuts (auto) 13.9 H Neutrophils % 94.0 H Neutrophils % (Manual) 92.0 H Band Neutrophils % 1.0 Lymphocytes % 3.0 L D Lymphocytes % (Manual) 6.0 L D Monocytes % 2.5 L Monocytes % (Manual) 0 L D Eosinophils % 0.0 Eosinophils % (Manual) 0.0 Basophils % 0.5 Basophils % (Manual) 0.0 Myelocytes % (Man) 1 D Promyelocytes % (Man) 0 Blast Cells % (Manual) 0 Nucleated RBC % 0 Metamyelocytes 0 Hypochromia 0 Platelet Estimate Normal Polychromasia 0 Poikilocytosis 0 Anisocytosis 0 Microcytosis 0 Macrocytosis 0 Target Cells 1+ Ovalocytes 1+ Sodium 136 Potassium 4.6 Chloride 94 L Carbon Dioxide 28 Anion Gap 14 BUN 84 H Creatinine 7.2 H Creat Clearance w eGFR 5.36 POC Glucometer 210 Random Glucose 238 H Hemoglobin A1c % Calcium 8.1 L 06/08/18 06/08/18 06:20 11:20 WBC RBC Hgb Hct MCV MCH MCHC RDW Plt Count MPV Absolute Neuts (auto) Neutrophils % Neutrophils % (Manual) Band Neutrophils % Lymphocytes % Lymphocytes % (Manual) Monocytes % Monocytes % (Manual) Eosinophils % Eosinophils % (Manual) Basophils % Basophils % (Manual) Myelocytes % (Man) Promyelocytes % (Man) Blast Cells % (Manual) Nucleated RBC % Metamyelocytes Hypochromia Platelet Estimate Polychromasia Poikilocytosis Anisocytosis Microcytosis Macrocytosis Target Cells Ovalocytes Sodium Potassium Chloride Carbon Dioxide Anion Gap BUN Creatinine Creat Clearance w eGFR POC Glucometer 323 Random Glucose Hemoglobin A1c % 5.3 Calcium Active Medications Albuterol Sulfate (Ventolin 0.083% Nebulizer Soln -) 1 amp NEB Q6H PRN PRN Reason: SHORT OF BREATH/WHEEZING Albuterol/Ipratropium (Duoneb -) 1 amp NEB RQID [facility] Last Admin: 06/08/18 11:58 Dose: 1 amp Amino Acids (Prosource No Carb Liquid Pkt) 30 ml PO DAILY@0800 [facility] Last Admin: 06/08/18 08:50 Dose: Not Given Amlodipine Besylate (Norvasc -) 10 mg PO HS [facility] Last Admin: 06/07/18 22:37 Dose: 10 mg Guaifenesin (Mucinex -) 600 mg PO BID [facility] Last Admin: 06/08/18 12:30 Dose: 600 mg Heparin Sodium (Porcine) (Heparin -) 5,000 unit SQ TID [facility] Last Admin: 06/08/18 06:08 Dose: 5,000 unit Azithromycin 250 mg/ Dextrose 250 mls @ 250 mls/hr IVPB DAILY [facility] Last Admin: 06/07/18 10:46 Dose: 250 mls/hr Piperacillin Sod/Tazobactam (Sod 2.25 gm/ Dextrose) 50 mls @ 100 mls/hr IVPB Q8H-IV [facility]; Protocol Last Admin: 06/08/18 12:40 Dose: 100 mls/hr Insulin Aspart (Novolog Vial Sliding Scale -) 1 vial SQ ACHS [facility]; Protocol Last Admin: 06/08/18 12:25 Dose: 8 units Isosorbide Mononitrate (Imdur -) 60 mg PO DAILY [facility] Last Admin: 06/07/18 09:53 Dose: 60 mg Losartan Potassium (Cozaar -) 50 mg PO DAILY [facility] Last Admin: 06/07/18 09:53 Dose: 50 mg Methylprednisolone Sodium Succinate (Solu-Medrol -) 40 mg IVPUSH BID [facility] Last Admin: 06/08/18 12:31 Dose: 40 mg Metoprolol Tartrate (Lopressor -) 50 mg PO BID [facility] Last Admin: 06/07/18 22:38 Dose: 50 mg Olanzapine (Zyprexa -) 5 mg PO BID [facility] Last Admin: 06/07/18 22:37 Dose: 5 mg Polyethylene Glycol (Miralax (For Daily Use) -) 17 gm PO DAILY [facility] Potassium Phos/Sodium Phos (Phos-Nak Packet -) 1 packet PO TID [facility] Last Admin: 06/08/18 05:54 Dose: Not Given Rosuvastatin Calcium (Crestor -) 10 mg PO HS [facility] Last Admin: 06/07/18 22:37 Dose: 10 mg Fluticasone/Salmeterol (Advair 100mcg/50mcg -) 1 puff IH BID [facility] Last Admin: 06/08/18 12:26 Dose: 1 puff Senna (Senna -) 1 tab PO BID [facility] Last Admin: 06/07/18 22:37 Dose: 1 tab Microbiology 06/05/18 08:45 Blood - Peripheral Venous Blood Culture - Preliminary NO GROWTH OBTAINED AFTER 48 HOURS, INCUBATION TO CONTINUE FOR 3 DAYS. 04/05/19 17:19 Blood - Peripheral Venous Blood Culture - Preliminary NO GROWTH OBTAINED AFTER 48 HOURS, INCUBATION TO CONTINUE FOR 3 DAYS. 06/05/18 06:30 Urine For Antigen Detection Legionella Antigen - Final 06/05/18 06:30 Urine For Antigen Detection Streptococcus pneumoniae Antigen (M - Final IMAGING: -CXR: Single AP view of the chest is submitted. Since the prior study of 2018 there are progressive bibasilar infiltrates. -CXR: AP view of the chest is been submitted. Since 06/05/2018, there are progressive bilateral effusions with basilar atelectasis or infiltrate as well as a large heart, sclerotic knob and chin artifact. Correlation recommended. -EKG: Sinus with occasional PVCs, VR 89, QTc 416 ASSESSMENT/PLAN: 88 y/o F with PMHx of ESRD on HD (M/W/), COPD on 2L Home O2, HTN, NIDDM, Diastolic dysfunction was admitted for RLL PNA #Acute hypoxic respiratory failure -Likely due to RLL PNA -Leukocytosis in the setting of Steroid use -Imaging and Micro noted above -Sputum Cx pending -Continue Piperacillin/Tazobactam 2.25gm IV Q8h and Azithromycin 250mg Daily ( day 3) -Continue Bronchodilators-- Albuterol Nebs, Albuterol/Ipatropium -IV Methylprednisolone 40mg BID -Mucinix 600mg BID -Pulmonary consulted, appreciate recs -ID (Dr. Morales) Consulted -NIPPV (12/05/13/40%) HS PRN -Supplemental O2 to maintain SpO2 > 90% #ESRD on HD (//) -Dr Reis consulted, appreciate rec's -Was not dialized today; LIkely tmrw as per renal #COPD--O2 Dependent (not in exacerbation) -Continue home dose Fluticasone/Salmeterol 100mcg/50mcg 1 puff BID -Additional Bronchodilator therapy, ABx, and Steroids as per above #HTN -Continue home dose Amlodipine 10mg PO HS, Isosorbide Mononitrate 60 mg PO DAILY , Losartan 50mg PO DAILY, Metoprolol Tartrate 50mg PO BID #HLD -Continue home dose Rosuvastatin 10 mg PO HS #DM -ISS BGM ACHS -Elevated BG in the setting of steroid use -Check A1c #?Psychosis/Agitation -Continue home dose Olanzapine 5mg PO BID #FEN -No standing fluids -Lytes WNL -Renal diet #PPx -DVT: Heparin TID Visit type - Emergency Visit Emergency Visit: Yes ED Registration Date: 06/05/18 Care time: The patient presented to the Emergency Department on the above date and was hospitalized for further evaluation of their emergent condition. - New Patient This patient is new to me today: Yes Date on this admission: 06/08/18 - Critical Care Critical Care patient: No
[2018-06-08] MEDS ORDERED: LOSARTAN POTASSIUM 50 MG TABLET (FP) PO SCH (16:45)
[2018-06-08] MEDS: ISOSORBIDE MONONITRATE 60 MG TAB.SR.24H (FP) PO SCH (16:47)
[2018-06-08] MEDS: METOPROLOL TARTRATE 50 MG TABLET (FP) PO SCH ×2 (16:48→21:39)
[2018-06-08] MEDS: AZITHROMYCIN IVPB 250 MG in DEXTROSE 5%-WATER - 250 ML IVPB SCH (16:48)
[2018-06-08] MEDS: LOSARTAN POTASSIUM 50 MG TABLET (FP) PO SCH (16:49)
--- NOTE | 2018-06-08 17:53 | PN ---
Progress Note (short form) - Note Progress Note: Called by Nurse to evaluate the patient. Nurse states patient appears uncomfortable and sob. Physical: VS: 105/55 AL: 118 RR 16 Gen: Patient mildy dyspneic CV: irregularly irregular, no murmurs appreciated Lung: crackles at the bases b/l Ext: no edema EKG taken: A-fib w/ RVR Rate 118 CXR: with no change from previous (slight improvement) 1x dose of metoprolol 25mg ordered. Discussed A-fib diagnosis with 2 of the patients daughter. I discussed the risks and benefits of anticoagulation and the risks of bleeding. Family denies bleeding history. All questions answered. Family in agreement to start AC with Eliquis. Will order Eliquis 2.5 BID. Will consult Cardiology. Cont. Rate control with metoprolol Monitor BP Cardiac monitoring. Bipap as needed.
[2018-06-08] MEDS ORDERED: METOPROLOL TARTRATE 25 MG TABLET (FP) PO ONE (18:15)
[2018-06-08] MEDS ORDERED: APIXABAN 2.5 MG TABLET PO ONE (18:15)
--- NOTE | 2018-06-08 21:20 | CON.CARD ---
Consult Consult Specialty:: Cardiology - History of Present Illness Chief Complaint: SOB History of Present Illness: 88YOF with h/o ESRD on hemodialysis (normally is MWF but recently was admitted and was on /Fri schedule, last tx was this , next scheduled treatment is this Fri), COPD (on home O2 2 LPM), HTN, NIDDM, and diastolic dysfunction who returns to [facility] with continued (and now worsening) SOB similar to that which she had on recent admission. She was discharged on 06/03/18 after admission for delirium, and her daughter states that she became SOB during the admission and this worsened significantly just after she returned home. She has additionally had a wet-sounding cough and began to tire out this evening, which prompted them to come back to the hospital. The daughter needed to give her Lasix 20 mg which they had a stock of at home (but patient does not regularly take this). No f/c/n/v/d/c, dysuria, chest pain, abdominal pain, swelling, etc. Patient is DNR (no chest compressions) but she is not DNI (family states she would want intubation if necessary). 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 No: Asthma, Pulmonary Embolus, Sleep Apnea Gastrointestinal: Yes: GERD Renal/: Yes: Renal Inusuff, Hemodialysis, Renal Calculi (maybe- she had flank pain) Endocrine: Yes: Diabetes Mellitus - Past Surgical History Past Surgical History: Yes: AV Fistula/Graft - Alcohol/Substance Use Hx Alcohol Use: No - Smoking History Smoking history: Never smoked Have you smoked in the past 12 months: No Aproximately how many cigarettes per day: 0 - Social History Usual Living Arrangement: With Significant Other Home Medications - Allergies Allergies/Adverse Reactions: Allergies Allergy/AdvReac Type Severity Reaction Status Date / Time egg AdvReac Vomiting Verified 05/27/18 12:48 - Home Medications Home Medications: Ambulatory Orders Albuterol Sulfate Inhaler - [Ventolin HFA Inhaler -] 2 inh PO Q6H 05/27/18 Amlodipine Besylate 10 mg PO HS 05/27/18 Isosorbide Mononitrate [Imdur -] 60 mg PO DAILY 05/27/18 Losartan Potassium 50 mg PO DAILY 05/27/18 Metoprolol Tartrate 50 mg PO BID 05/27/18 Rosuvastatin [Crestor -] 20 mg PO HS 05/27/18 Salmeterol/Fluticasone [Advair 100Mcg/50Mcg -] 1 inh PO BID 05/27/18 Sevelamer Carbonate [Renvela -] 800 mg PO TID 05/27/18 Olanzapine [Zyprexa -] 5 mg PO BID #60 tablet 06/03/18 Review of Systems - Review of Systems Constitutional: reports: No Symptoms Eyes: reports: No Symptoms HENT: reports: No Symptoms Neck: reports: No Symptoms Cardiovascular: reports: No Symptoms Respiratory: reports: SOB Gastrointestinal: reports: No Symptoms Genitourinary: reports: No Symptoms Breasts: reports: No Symptoms Reported Musculoskeletal: reports: No Symptoms Integumentary: reports: No Symptoms Neurological: reports: No Symptoms Endocrine: reports: No Symptoms Hematology/Lymphatic: reports: No Symptoms Psychiatric: reports: No Symptoms Vital Signs: Vital Signs Temperature 97.4 F L 06/08/18 16:40 Pulse Rate 115 H 06/08/18 17:42 Respiratory Rate 26 H 06/08/18 17:42 Blood Pressure 105/59 L 06/08/18 17:42 O2 Sat by Pulse Oximetry (%) 95 06/08/18 15:45 Constitutional: Yes: Well Nourished, No Distress, Calm Eyes: Yes: WNL, Conjunctiva Clear, EOM Intact HENT: Yes: WNL, Atraumatic, Normocephalic Neck: Yes: WNL, Supple, Trachea Midline Respiratory: Yes: Diminished Gastrointestinal: Yes: WNL, Normal Bowel Sounds Renal/: Yes: WNL Cardiovascular: Yes: Pulse Irregular Musculoskeletal: Yes: WNL Extremities: Yes: WNL Integumentary: Yes: WNL Neurological: Yes: WNL, Alert, Oriented ...Motor Strength: WNL Psychiatric: Yes: WNL, Alert, Oriented - Other Data Labs, Other Data: CBC, BMP 06/08/18 06:20 06/08/18 06:20 INR, PTT INR 0.91 (0.83-1.09) 06/05/18 00:30 Laboratory Tests 06/05/18 06/05/18 06/05/18 00:30 00:30 00:30 WBC 10.8 H RBC 4.38 Hgb 12.3 Hct 37.2 MCV 85.0 MCH 28.0 MCHC 32.9 RDW 15.9 H Plt Count 209 MPV 9.4 Absolute Neuts (auto) 9.7 H Neutrophils % 89.9 H Neutrophils % (Manual) Band Neutrophils % Lymphocytes % 3.9 L D Lymphocytes % (Manual) Monocytes % 6.0 Monocytes % (Manual) Eosinophils % 0.0 D Eosinophils % (Manual) Basophils % 0.2 Basophils % (Manual) Myelocytes % (Man) Promyelocytes % (Man) Blast Cells % (Manual) Nucleated RBC % 0 Metamyelocytes Hypochromia Platelet Estimate Polychromasia Poikilocytosis Anisocytosis Microcytosis Macrocytosis Target Cells Ovalocytes PT with INR 10.70 INR 0.91 PTT (Actin FS) 30.9 Anticoagulation Therapy Puncture Site ABG pH ABG pCO2 at Pt Temp ABG pO2 at Pt Temp ABG HCO3 ABG O2 Sat (Measured) ABG O2 Content ABG Base Excess Usman Test VBG pH 7.34 POC VBG pCO2 59.6 H POC VBG pO2 42.1 H VBG HCO3 31.6 H VBG O2 Sat (Claudia) 70.4 VBG Base Excess 4.8 H O2 Delivery Device Oxygen Flow Rate Vent Mode Vent Rate Mechanical Rate Pressure Support Vent Sodium Potassium Chloride Carbon Dioxide Anion Gap BUN Creatinine Creat Clearance w eGFR POC Glucometer Random Glucose Hemoglobin A1c % Lactic Acid Calcium Phosphorus Magnesium Total Bilirubin AST ALT Alkaline Phosphatase Creatine Kinase Troponin I Total Protein Albumin Urine Color Urine Appearance Urine pH Ur Specific Winkelman Urine Protein Urine Glucose (UA) Urine Ketones Urine Blood Urine Nitrite Urine Bilirubin Urine Urobilinogen Ur Leukocyte Esterase Urine WBC (Auto) Urine RBC (Auto) Urine Casts (Auto) U Epithel Cells (Auto) Urine Bacteria (Auto) Random Vancomycin Blood Type Antibody Screen 06/05/18 06/05/18 06/05/18 00:30 00:30 05:01 WBC RBC Hgb Hct MCV MCH MCHC RDW Plt Count MPV Absolute Neuts (auto) Neutrophils % Neutrophils % (Manual) Band Neutrophils % Lymphocytes % Lymphocytes % (Manual) Monocytes % Monocytes % (Manual) Eosinophils % Eosinophils % (Manual) Basophils % Basophils % (Manual) Myelocytes % (Man) Promyelocytes % (Man) Blast Cells % (Manual) Nucleated RBC % Metamyelocytes Hypochromia Platelet Estimate Polychromasia Poikilocytosis Anisocytosis Microcytosis Macrocytosis Target Cells Ovalocytes PT with INR INR PTT (Actin FS) Anticoagulation Therapy Puncture Site ABG pH ABG pCO2 at Pt Temp ABG pO2 at Pt Temp ABG HCO3 ABG O2 Sat (Measured) ABG O2 Content ABG Base Excess Usman Test VBG pH POC VBG pCO2 POC VBG pO2 VBG HCO3 VBG O2 Sat (Claudia) VBG Base Excess O2 Delivery Device Oxygen Flow Rate Vent Mode Vent Rate Mechanical Rate Pressure Support Vent Sodium 141 Potassium 5.4 H Chloride 105 Carbon Dioxide 32 Anion Gap 4 L BUN 53 H Creatinine 8.3 H* Creat Clearance w eGFR 4.55 POC Glucometer 131 Random Glucose 204 H Hemoglobin A1c % Lactic Acid Calcium 8.8 Phosphorus 1.8 L Magnesium 1.8 Total Bilirubin 0.6 AST 25 ALT 19 Alkaline Phosphatase 70 Creatine Kinase 50 Troponin I < 0.02 Total Protein 7.3 Albumin 3.3 L Urine Color Urine Appearance Urine pH Ur Specific Winkelman Urine Protein Urine Glucose (UA) Urine Ketones Urine Blood Urine Nitrite Urine Bilirubin Urine Urobilinogen Ur Leukocyte Esterase Urine WBC (Auto) Urine RBC (Auto) Urine Casts (Auto) U Epithel Cells (Auto) Urine Bacteria (Auto) Random Vancomycin Blood Type A POSITIVE Antibody Screen Negative 06/05/18 06/05/18 06/05/18 06:30 10:32 10:34 WBC 12.0 H RBC 4.29 Hgb 11.8 Hct 36.5 MCV 85.1 MCH 27.4 MCHC 32.2 RDW 15.5 Plt Count 223 MPV 9.7 Absolute Neuts (auto) 10.4 H Neutrophils % 86.5 H Neutrophils % (Manual) Band Neutrophils % Lymphocytes % 8.1 D Lymphocytes % (Manual) Monocytes % 5.2 Monocytes % (Manual) Eosinophils % 0.0 Eosinophils % (Manual) Basophils % 0.2 Basophils % (Manual) Myelocytes % (Man) Promyelocytes % (Man) Blast Cells % (Manual) Nucleated RBC % 0 Metamyelocytes Hypochromia Platelet Estimate Polychromasia Poikilocytosis Anisocytosis Microcytosis Macrocytosis Target Cells Ovalocytes PT with INR INR PTT (Actin FS) Anticoagulation Therapy No Result Required. Puncture Site Right radial ABG pH 7.39 ABG pCO2 at Pt Temp 51.4 H ABG pO2 at Pt Temp 61.1 L ABG HCO3 30.4 H ABG O2 Sat (Measured) 89.8 L ABG O2 Content 14.7 L ABG Base Excess 4.9 H Usman Test Positive VBG pH POC VBG pCO2 POC VBG pO2 VBG HCO3 VBG O2 Sat (Claudia) VBG Base Excess O2 Delivery Device Bipap Oxygen Flow Rate 35% Vent Mode S/t Vent Rate 14 Mechanical Rate Bipap Pressure Support Vent 10/5 Sodium Potassium Chloride Carbon Dioxide Anion Gap BUN Creatinine Creat Clearance w eGFR POC Glucometer Random Glucose Hemoglobin A1c % Lactic Acid Calcium Phosphorus Magnesium Total Bilirubin AST ALT Alkaline Phosphatase Creatine Kinase Troponin I Total Protein Albumin Urine Color Yellow Urine Appearance Clear Urine pH 6.0 D Ur Specific Winkelman 1.014 Urine Protein 3+ H Urine Glucose (UA) Negative Urine Ketones Negative Urine Blood Negative Urine Nitrite Negative Urine Bilirubin Negative Urine Urobilinogen 0.2 Ur Leukocyte Esterase Negative Urine WBC (Auto) 6 Urine RBC (Auto) 12.8 Urine Casts (Auto) 4 U Epithel Cells (Auto) 3.0 Urine Bacteria (Auto) 492.5 Random Vancomycin Blood Type Antibody Screen 06/05/18 06/05/18 06/05/18 10:34 10:34 17:25 WBC RBC Hgb Hct MCV MCH MCHC RDW Plt Count MPV Absolute Neuts (auto) Neutrophils % Neutrophils % (Manual) Band Neutrophils % Lymphocytes % Lymphocytes % (Manual) Monocytes % Monocytes % (Manual) Eosinophils % Eosinophils % (Manual) Basophils % Basophils % (Manual) Myelocytes % (Man) Promyelocytes % (Man) Blast Cells % (Manual) Nucleated RBC % Metamyelocytes Hypochromia Platelet Estimate Polychromasia Poikilocytosis Anisocytosis Microcytosis Macrocytosis Target Cells Ovalocytes PT with INR INR PTT (Actin FS) Anticoagulation Therapy Puncture Site ABG pH ABG pCO2 at Pt Temp ABG pO2 at Pt Temp ABG HCO3 ABG O2 Sat (Measured) ABG O2 Content ABG Base Excess Usman Test VBG pH POC VBG pCO2 POC VBG pO2 VBG HCO3 VBG O2 Sat (Claudia) VBG Base Excess O2 Delivery Device Oxygen Flow Rate Vent Mode Vent Rate Mechanical Rate Pressure Support Vent Sodium 144 Potassium 4.8 Chloride 105 Carbon Dioxide 31 Anion Gap 9 BUN 59 H Creatinine 8.9 H* Creat Clearance w eGFR 4.20 POC Glucometer 151 Random Glucose 120 H Hemoglobin A1c % Lactic Acid 1.1 Calcium 8.8 Phosphorus 2.0 L Magnesium 1.7 L Total Bilirubin 0.7 AST 18 ALT 16 Alkaline Phosphatase 73 Creatine Kinase Troponin I < 0.02 Total Protein 7.0 Albumin 3.3 L Urine Color Urine Appearance Urine pH Ur Specific Winkelman Urine Protein Urine Glucose (UA) Urine Ketones Urine Blood Urine Nitrite Urine Bilirubin Urine Urobilinogen Ur Leukocyte Esterase Urine WBC (Auto) Urine RBC (Auto) Urine Casts (Auto) U Epithel Cells (Auto) Urine Bacteria (Auto) Random Vancomycin Blood Type Antibody Screen 06/05/18 06/06/18 06/06/18 21:33 06:08 07:15 WBC RBC Hgb Hct MCV MCH MCHC RDW Plt Count MPV Absolute Neuts (auto) Neutrophils % Neutrophils % (Manual) Band Neutrophils % Lymphocytes % Lymphocytes % (Manual) Monocytes % Monocytes % (Manual) Eosinophils % Eosinophils % (Manual) Basophils % Basophils % (Manual) Myelocytes % (Man) Promyelocytes % (Man) Blast Cells % (Manual) Nucleated RBC % Metamyelocytes Hypochromia Platelet Estimate Polychromasia Poikilocytosis Anisocytosis Microcytosis Macrocytosis Target Cells Ovalocytes PT with INR INR PTT (Actin FS) Anticoagulation Therapy Puncture Site ABG pH ABG pCO2 at Pt Temp ABG pO2 at Pt Temp ABG HCO3 ABG O2 Sat (Measured) ABG O2 Content ABG Base Excess Usman Test VBG pH POC VBG pCO2 POC VBG pO2 VBG HCO3 VBG O2 Sat (Claudia) VBG Base Excess O2 Delivery Device Oxygen Flow Rate Vent Mode Vent Rate Mechanical Rate Pressure Support Vent Sodium Potassium Chloride Carbon Dioxide Anion Gap BUN Creatinine Creat Clearance w eGFR POC Glucometer 239 153 Random Glucose Hemoglobin A1c % Lactic Acid Calcium Phosphorus Magnesium Total Bilirubin AST ALT Alkaline Phosphatase Creatine Kinase Troponin I Total Protein Albumin Urine Color Urine Appearance Urine pH Ur Specific Winkelman Urine Protein Urine Glucose (UA) Urine Ketones Urine Blood Urine Nitrite Urine Bilirubin Urine Urobilinogen Ur Leukocyte Esterase Urine WBC (Auto) Urine RBC (Auto) Urine Casts (Auto) U Epithel Cells (Auto) Urine Bacteria (Auto) Random Vancomycin 11.5 L Blood Type Antibody Screen 06/06/18 06/06/18 06/06/18 07:15 07:15 11:50 WBC 15.2 H RBC 4.39 Hgb 12.0 Hct 38.2 MCV 86.9 MCH 27.3 MCHC 31.4 L RDW 16.1 H Plt Count 176 D MPV 9.7 Absolute Neuts (auto) Neutrophils % Neutrophils % (Manual) Band Neutrophils % Lymphocytes % Lymphocytes % (Manual) Monocytes % Monocytes % (Manual) Eosinophils % Eosinophils % (Manual) Basophils % Basophils % (Manual) Myelocytes % (Man) Promyelocytes % (Man) Blast Cells % (Manual) Nucleated RBC % Metamyelocytes Hypochromia Platelet Estimate Polychromasia Poikilocytosis Anisocytosis Microcytosis Macrocytosis Target Cells Ovalocytes PT with INR INR PTT (Actin FS) Anticoagulation Therapy Puncture Site ABG pH ABG pCO2 at Pt Temp ABG pO2 at Pt Temp ABG HCO3 ABG O2 Sat (Measured) ABG O2 Content ABG Base Excess Usman Test VBG pH POC VBG pCO2 POC VBG pO2 VBG HCO3 VBG O2 Sat (Claudia) VBG Base Excess O2 Delivery Device Oxygen Flow Rate Vent Mode Vent Rate Mechanical Rate Pressure Support Vent Sodium 142 Potassium 5.0 Chloride 101 Carbon Dioxide 32 Anion Gap 9 BUN 41 H Creatinine 6.0 H Creat Clearance w eGFR 6.62 POC Glucometer 311 Random Glucose 168 H Hemoglobin A1c % Lactic Acid Calcium 8.9 Phosphorus 4.9 Magnesium 2.1 Total Bilirubin AST ALT Alkaline Phosphatase Creatine Kinase Troponin I Total Protein Albumin Urine Color Urine Appearance Urine pH Ur Specific Winkelman Urine Protein Urine Glucose (UA) Urine Ketones Urine Blood Urine Nitrite Urine Bilirubin Urine Urobilinogen Ur Leukocyte Esterase Urine WBC (Auto) Urine RBC (Auto) Urine Casts (Auto) U Epithel Cells (Auto) Urine Bacteria (Auto) Random Vancomycin Blood Type Antibody Screen 06/06/18 06/06/18 06/07/18 18:02 21:51 06:00 WBC 12.2 H RBC 4.20 Hgb 11.4 Hct 35.8 MCV 85.2 MCH 27.1 MCHC 31.7 L RDW 15.8 H Plt Count 202 MPV 9.5 Absolute Neuts (auto) Neutrophils % Neutrophils % (Manual) Band Neutrophils % Lymphocytes % Lymphocytes % (Manual) Monocytes % Monocytes % (Manual) Eosinophils % Eosinophils % (Manual) Basophils % Basophils % (Manual) Myelocytes % (Man) Promyelocytes % (Man) Blast Cells % (Manual) Nucleated RBC % Metamyelocytes Hypochromia Platelet Estimate Polychromasia Poikilocytosis Anisocytosis Microcytosis Macrocytosis Target Cells Ovalocytes PT with INR INR PTT (Actin FS) Anticoagulation Therapy Puncture Site ABG pH ABG pCO2 at Pt Temp ABG pO2 at Pt Temp ABG HCO3 ABG O2 Sat (Measured) ABG O2 Content ABG Base Excess Usman Test VBG pH POC VBG pCO2 POC VBG pO2 VBG HCO3 VBG O2 Sat (Claudia) VBG Base Excess O2 Delivery Device Oxygen Flow Rate Vent Mode Vent Rate Mechanical Rate Pressure Support Vent Sodium Potassium Chloride Carbon Dioxide Anion Gap BUN Creatinine Creat Clearance w eGFR POC Glucometer 177 213 Random Glucose Hemoglobin A1c % Lactic Acid Calcium Phosphorus Magnesium Total Bilirubin AST ALT Alkaline Phosphatase Creatine Kinase Troponin I Total Protein Albumin Urine Color Urine Appearance Urine pH Ur Specific Winkelman Urine Protein Urine Glucose (UA) Urine Ketones Urine Blood Urine Nitrite Urine Bilirubin Urine Urobilinogen Ur Leukocyte Esterase Urine WBC (Auto) Urine RBC (Auto) Urine Casts (Auto) U Epithel Cells (Auto) Urine Bacteria (Auto) Random Vancomycin Blood Type Antibody Screen 06/07/18 06/07/18 06/07/18 06:00 06:21 11:54 WBC RBC Hgb Hct MCV MCH MCHC RDW Plt Count MPV Absolute Neuts (auto) Neutrophils % Neutrophils % (Manual) Band Neutrophils % Lymphocytes % Lymphocytes % (Manual) Monocytes % Monocytes % (Manual) Eosinophils % Eosinophils % (Manual) Basophils % Basophils % (Manual) Myelocytes % (Man) Promyelocytes % (Man) Blast Cells % (Manual) Nucleated RBC % Metamyelocytes Hypochromia Platelet Estimate Polychromasia Poikilocytosis Anisocytosis Microcytosis Macrocytosis Target Cells Ovalocytes PT with INR INR PTT (Actin FS) Anticoagulation Therapy Puncture Site ABG pH ABG pCO2 at Pt Temp ABG pO2 at Pt Temp ABG HCO3 ABG O2 Sat (Measured) ABG O2 Content ABG Base Excess Usman Test VBG pH POC VBG pCO2 POC VBG pO2 VBG HCO3 VBG O2 Sat (Claudia) VBG Base Excess O2 Delivery Device Oxygen Flow Rate Vent Mode Vent Rate Mechanical Rate Pressure Support Vent Sodium 138 Potassium 4.4 Chloride 98 Carbon Dioxide 31 Anion Gap 8 BUN 38 H Creatinine 4.4 H Creat Clearance w eGFR 9.47 POC Glucometer 188 426 Random Glucose 209 H Hemoglobin A1c % Lactic Acid Calcium 8.9 Phosphorus 6.1 H Magnesium 2.1 Total Bilirubin AST ALT Alkaline Phosphatase Creatine Kinase Troponin I Total Protein Albumin Urine Color Urine Appearance Urine pH Ur Specific Winkelman Urine Protein Urine Glucose (UA) Urine Ketones Urine Blood Urine Nitrite Urine Bilirubin Urine Urobilinogen Ur Leukocyte Esterase Urine WBC (Auto) Urine RBC (Auto) Urine Casts (Auto) U Epithel Cells (Auto) Urine Bacteria (Auto) Random Vancomycin Blood Type Antibody Screen 06/07/18 06/07/18 06/07/18 13:16 13:49 17:06 WBC RBC Hgb Hct MCV MCH MCHC RDW Plt Count MPV Absolute Neuts (auto) Neutrophils % Neutrophils % (Manual) Band Neutrophils % Lymphocytes % Lymphocytes % (Manual) Monocytes % Monocytes % (Manual) Eosinophils % Eosinophils % (Manual) Basophils % Basophils % (Manual) Myelocytes % (Man) Promyelocytes % (Man) Blast Cells % (Manual) Nucleated RBC % Metamyelocytes Hypochromia Platelet Estimate Polychromasia Poikilocytosis Anisocytosis Microcytosis Macrocytosis Target Cells Ovalocytes PT with INR INR PTT (Actin FS) Anticoagulation Therapy Puncture Site ABG pH ABG pCO2 at Pt Temp ABG pO2 at Pt Temp ABG HCO3 ABG O2 Sat (Measured) ABG O2 Content ABG Base Excess Usman Test VBG pH POC VBG pCO2 POC VBG pO2 VBG HCO3 VBG O2 Sat (Claudia) VBG Base Excess O2 Delivery Device Oxygen Flow Rate Vent Mode Vent Rate Mechanical Rate Pressure Support Vent Sodium 138 Potassium 4.3 Chloride 96 L Carbon Dioxide 29 Anion Gap 13 BUN 52 H Creatinine 5.5 H Creat Clearance w eGFR 7.32 POC Glucometer 272 210 Random Glucose 236 H Hemoglobin A1c % Lactic Acid Calcium 8.9 Phosphorus Magnesium Total Bilirubin AST ALT Alkaline Phosphatase Creatine Kinase Troponin I Total Protein Albumin Urine Color Urine Appearance Urine pH Ur Specific Winkelman Urine Protein Urine Glucose (UA) Urine Ketones Urine Blood Urine Nitrite Urine Bilirubin Urine Urobilinogen Ur Leukocyte Esterase Urine WBC (Auto) Urine RBC (Auto) Urine Casts (Auto) U Epithel Cells (Auto) Urine Bacteria (Auto) Random Vancomycin Blood Type Antibody Screen 06/07/18 06/07/18 06/08/18 17:50 22:36 06:07 WBC RBC Hgb Hct MCV MCH MCHC RDW Plt Count MPV Absolute Neuts (auto) Neutrophils % Neutrophils % (Manual) Band Neutrophils % Lymphocytes % Lymphocytes % (Manual) Monocytes % Monocytes % (Manual) Eosinophils % Eosinophils % (Manual) Basophils % Basophils % (Manual) Myelocytes % (Man) Promyelocytes % (Man) Blast Cells % (Manual) Nucleated RBC % Metamyelocytes Hypochromia Platelet Estimate Polychromasia Poikilocytosis Anisocytosis Microcytosis Macrocytosis Target Cells Ovalocytes PT with INR INR PTT (Actin FS) Anticoagulation Therapy Puncture Site ABG pH ABG pCO2 at Pt Temp ABG pO2 at Pt Temp ABG HCO3 ABG O2 Sat (Measured) ABG O2 Content ABG Base Excess Usman Test VBG pH POC VBG pCO2 POC VBG pO2 VBG HCO3 VBG O2 Sat (Claudia) VBG Base Excess O2 Delivery Device Oxygen Flow Rate Vent Mode Vent Rate Mechanical Rate Pressure Support Vent Sodium 139 Potassium 4.3 Chloride 97 L Carbon Dioxide 29 Anion Gap 13 BUN 65 H Creatinine 5.9 H Creat Clearance w eGFR 6.75 POC Glucometer 212 210 Random Glucose 260 H Hemoglobin A1c % Lactic Acid Calcium 8.5 Phosphorus Magnesium Total Bilirubin AST ALT Alkaline Phosphatase Creatine Kinase Troponin I Total Protein Albumin Urine Color Urine Appearance Urine pH Ur Specific Winkelman Urine Protein Urine Glucose (UA) Urine Ketones Urine Blood Urine Nitrite Urine Bilirubin Urine Urobilinogen Ur Leukocyte Esterase Urine WBC (Auto) Urine RBC (Auto) Urine Casts (Auto) U Epithel Cells (Auto) Urine Bacteria (Auto) Random Vancomycin Blood Type Antibody Screen 06/08/18 06/08/18 06/08/18 06:20 06:20 06:20 WBC 14.8 H RBC 4.10 Hgb 11.3 Hct 35.2 MCV 85.8 MCH 27.5 MCHC 32.0 RDW 15.5 Plt Count 252 D MPV 10.7 D Absolute Neuts (auto) 13.9 H Neutrophils % 94.0 H Neutrophils % (Manual) 92.0 H Band Neutrophils % 1.0 Lymphocytes % 3.0 L D Lymphocytes % (Manual) 6.0 L D Monocytes % 2.5 L Monocytes % (Manual) 0 L D Eosinophils % 0.0 Eosinophils % (Manual) 0.0 Basophils % 0.5 Basophils % (Manual) 0.0 Myelocytes % (Man) 1 D Promyelocytes % (Man) 0 Blast Cells % (Manual) 0 Nucleated RBC % 0 Metamyelocytes 0 Hypochromia 0 Platelet Estimate Normal Polychromasia 0 Poikilocytosis 0 Anisocytosis 0 Microcytosis 0 Macrocytosis 0 Target Cells 1+ Ovalocytes 1+ PT with INR INR PTT (Actin FS) Anticoagulation Therapy Puncture Site ABG pH ABG pCO2 at Pt Temp ABG pO2 at Pt Temp ABG HCO3 ABG O2 Sat (Measured) ABG O2 Content ABG Base Excess Usman Test VBG pH POC VBG pCO2 POC VBG pO2 VBG HCO3 VBG O2 Sat (Claudia) VBG Base Excess O2 Delivery Device Oxygen Flow Rate Vent Mode Vent Rate Mechanical Rate Pressure Support Vent Sodium 136 Potassium 4.6 Chloride 94 L Carbon Dioxide 28 Anion Gap 14 BUN 84 H Creatinine 7.2 H Creat Clearance w eGFR 5.36 POC Glucometer Random Glucose 238 H Hemoglobin A1c % 5.3 Lactic Acid Calcium 8.1 L Phosphorus Magnesium Total Bilirubin AST ALT Alkaline Phosphatase Creatine Kinase Troponin I Total Protein Albumin Urine Color Urine Appearance Urine pH Ur Specific Winkelman Urine Protein Urine Glucose (UA) Urine Ketones Urine Blood Urine Nitrite Urine Bilirubin Urine Urobilinogen Ur Leukocyte Esterase Urine WBC (Auto) Urine RBC (Auto) Urine Casts (Auto) U Epithel Cells (Auto) Urine Bacteria (Auto) Random Vancomycin Blood Type Antibody Screen 06/08/18 06/08/18 11:20 16:28 WBC RBC Hgb Hct MCV MCH MCHC RDW Plt Count MPV Absolute Neuts (auto) Neutrophils % Neutrophils % (Manual) Band Neutrophils % Lymphocytes % Lymphocytes % (Manual) Monocytes % Monocytes % (Manual) Eosinophils % Eosinophils % (Manual) Basophils % Basophils % (Manual) Myelocytes % (Man) Promyelocytes % (Man) Blast Cells % (Manual) Nucleated RBC % Metamyelocytes Hypochromia Platelet Estimate Polychromasia Poikilocytosis Anisocytosis Microcytosis Macrocytosis Target Cells Ovalocytes PT with INR INR PTT (Actin FS) Anticoagulation Therapy Puncture Site ABG pH ABG pCO2 at Pt Temp ABG pO2 at Pt Temp ABG HCO3 ABG O2 Sat (Measured) ABG O2 Content ABG Base Excess Usman Test VBG pH POC VBG pCO2 POC VBG pO2 VBG HCO3 VBG O2 Sat (Claudia) VBG Base Excess O2 Delivery Device Oxygen Flow Rate Vent Mode Vent Rate Mechanical Rate Pressure Support Vent Sodium Potassium Chloride Carbon Dioxide Anion Gap BUN Creatinine Creat Clearance w eGFR POC Glucometer 323 308 Random Glucose Hemoglobin A1c % Lactic Acid Calcium Phosphorus Magnesium Total Bilirubin AST ALT Alkaline Phosphatase Creatine Kinase Troponin I Total Protein Albumin Urine Color Urine Appearance Urine pH Ur Specific Winkelman Urine Protein Urine Glucose (UA) Urine Ketones Urine Blood Urine Nitrite Urine Bilirubin Urine Urobilinogen Ur Leukocyte Esterase Urine WBC (Auto) Urine RBC (Auto) Urine Casts (Auto) U Epithel Cells (Auto) Urine Bacteria (Auto) Random Vancomycin Blood Type Antibody Screen Imaging - Results Chest X-ray: Image Reviewed (lll infiltrate) EKG: Pending Problem List - Problems (1) Acute on chronic respiratory failure with hypoxia and hypercapnia Code(s): J96.21 - ACUTE AND CHRONIC RESPIRATORY FAILURE WITH HYPOXIA; J96.22 - ACUTE AND CHRONIC RESPIRATORY FAILURE WITH HYPERCAPNIA (2) Acute respiratory failure Code(s): J96.00 - ACUTE RESPIRATORY FAILURE, UNSP W HYPOXIA OR HYPERCAPNIA (3) Generalized weakness Code(s): R53.1 - WEAKNESS (4) Shortness of breath Code(s): R06.02 - SHORTNESS OF BREATH (5) Abdominal pain Code(s): R10.9 - UNSPECIFIED ABDOMINAL PAIN (6) Abnormal CT of the abdomen Code(s): R93.5 - ABN FINDINGS ON DX IMAGING OF ABD REGIONS, INC RETROPERITON (7) Acute pulmonary edema Code(s): J81.0 - ACUTE PULMONARY EDEMA (8) Dyspnea Code(s): R06.00 - DYSPNEA, UNSPECIFIED Qualifiers: Dyspnea type: shortness of breath Qualified Code(s): R06.02 - Shortness of breath; R06.00 - Dyspnea, unspecified; R06.01 - Orthopnea (9) ESRD (end stage renal disease) Code(s): N18.6 - END STAGE RENAL DISEASE (10) ESRD (end stage renal disease) on dialysis Code(s): N18.6 - END STAGE RENAL DISEASE; Z99.2 - DEPENDENCE ON RENAL DIALYSIS (11) Epigastric abdominal pain Code(s): R10.13 - EPIGASTRIC PAIN (12) Esophagitis Code(s): K20.9 - ESOPHAGITIS, UNSPECIFIED (13) GIB (gastrointestinal bleeding) Code(s): K92.2 - GASTROINTESTINAL HEMORRHAGE, UNSPECIFIED (14) Gastritis Code(s): K29.70 - GASTRITIS, UNSPECIFIED, WITHOUT BLEEDING (15) History of end stage renal disease Code(s): Z87.448 - PERSONAL HISTORY OF OTHER DISEASES OF URINARY SYSTEM (16) Hypertensive urgency Code(s): I16.0 - HYPERTENSIVE URGENCY (17) Hypophosphatemia Code(s): E83.39 - OTHER DISORDERS OF PHOSPHORUS METABOLISM (18) Pulmonary hypertension Code(s): I27.20 - PULMONARY HYPERTENSION, UNSPECIFIED (19) Thrombocytopenia Code(s): D69.6 - THROMBOCYTOPENIA, UNSPECIFIED (20) COPD exacerbation Code(s): J44.1 - CHRONIC OBSTRUCTIVE PULMONARY DISEASE W (ACUTE) EXACERBATION (21) Chronic kidney disease Code(s): N18.9 - CHRONIC KIDNEY DISEASE, UNSPECIFIED (22) Diabetes Code(s): E11.9 - TYPE 2 DIABETES MELLITUS WITHOUT COMPLICATIONS Qualifiers: Diabetes mellitus type: type 2 Diabetes mellitus [facility] insulin use: without [facility] use Diabetes mellitus complication status: with kidney complications Diabetes mellitus complication detail: with chronic kidney disease Chronic kidney disease stage: on chronic dialysis Qualified Code(s) : E11.22 - Type 2 diabetes mellitus with diabetic chronic kidney disease; N18.6 - End stage renal disease; Z99.2 - Dependence on renal dialysis (23) Diastolic CHF Code(s): I50.30 - UNSPECIFIED DIASTOLIC (CONGESTIVE) HEART FAILURE Qualifiers: Heart failure chronicity: acute on chronic Qualified Code(s): I50.33 - Acute on chronic diastolic (congestive) heart failure (24) Hypercholesterolemia Code(s): E78.00 - PURE HYPERCHOLESTEROLEMIA, UNSPECIFIED (25) Hypertension Code(s): I10 - ESSENTIAL (PRIMARY) HYPERTENSION Qualifiers: Hypertension type: essential hypertension Qualified Code(s): I10 - Essential (primary) hypertension (26) Pericardial effusion Code(s): I31.3 - PERICARDIAL EFFUSION (NONINFLAMMATORY) (27) Altered mental status, unspecified Code(s): R41.82 - ALTERED MENTAL STATUS, UNSPECIFIED (28) Pneumonia Code(s): J18.9 - PNEUMONIA, UNSPECIFIED ORGANISM Qualifiers: Laterality: bilateral Lung location: lower lobe of lung Assessment/Plan ESRD on hemodialysis (normally is MWF but recently was admitted and was on / Fri schedule, last tx was this , next scheduled treatment is this Fri), COPD (on home O2 2 LPM), HTN, NIDDM, and diastolic dysfunction who developed new onset AF. - Problems (1) New onset atrial fibrillation Assessment/Plan: Now on increased dose metoprolol tartrate (to 75 mg bid) for AF with RVR, with good response. Started on apixaban. ECHO: normal LVEF; borderline dillated LA. Code(s): I48.91 - UNSPECIFIED ATRIAL FIBRILLATION (2) Shortness of breath Code(s): R06.02 - SHORTNESS OF BREATH (3) ESRD (end stage renal disease) on dialysis Assessment/Plan: hemodialysis per asset management coordinator. Code(s): N18.6 - END STAGE RENAL DISEASE; Z99.2 - DEPENDENCE ON RENAL DIALYSIS (4) Acute on chronic diastolic (congestive) heart failure Assessment/Plan: On metoprolol For hemodialysis. F/u BUn/Cr, electrolytes, Is and Os, and daily weight. Code(s): I50.33 - ACUTE ON CHRONIC DIASTOLIC (CONGESTIVE) HEART FAILURE (5) Hypertension Assessment/Plan: On metoprolol Code(s): I10 - ESSENTIAL (PRIMARY) HYPERTENSION Qualifiers: Hypertension type: essential hypertension Qualified Code(s): I10 - Essential (primary) hypertension
[2018-06-08] MEDS: ROSUVASTATIN CA 10 MG TABLET (FP) PO SCH (21:39)
[2018-06-08] MEDS: amLODIPine BESYLATE 10 MG TABLET (FP) PO SCH (21:39)
[2018-06-08] MEDS ORDERED: APIXABAN 2.5 MG TABLET PO SCH (22:00)
[2018-06-09] MEDS ORDERED: DEXTROSE 5%-WATER - 50 ML IVPB ONE ×3 (02:12→17:23)
[2018-06-09] MEDS ORDERED: PIPERACILLIN/TAZOBACTAM 2.25 GM VIAL IVPB ONE ×3 (02:12→17:22)
[2018-06-09] MEDS: PIPERACILLIN/TAZOB 2.25 GM 2.25 GM in DEXTROSE 5%-WATER - 50 ML IVPB SCH ×3 (02:37→17:54)
[2018-06-09] MEDS: NAPH,MB-DB/K PH,MBDB POWDER PACKET PO SCH ×2 (05:41→14:49)
[2018-06-09] MEDS: INSULIN SLIDING SCALE (NOVOLOG) 1 VIAL SQ SCH ×4 (06:50→22:27)
[2018-06-09] MEDS: ALBUTEROL SO4 2.5/IPRATROPIUM 0.5 INH SOL 3 ML VIAL.NEB. NEB SCH ×2 (08:00→11:43)
[2018-06-09] MEDS ORDERED: PT OWN MED DRAWER 7, Y5N ONE (10:22)
[2018-06-09 10:23] LABS: BASO % 0.3 % (0-2.0); EOS % 0.2 % (0-4.5); HEMATOCRIT 36.4 % (32.4-45.2); HEMOGLOBIN 11.9 GM/dL (10.7-15.3); MCH 27.6 pg (25.7-33.7); MCHC 32.8 g/dl (32.0-36.0); MEAN CELL VOLUME 84.1 fl (80-96); MEAN PLT VOLUME 10.3 fl (7.5-11.1); MONO % 5.2 % (3.8-10.2); NEUT % 86.3 % (42.8-82.8); PLATELET COUNT 260 K/MM3 (134-434); RBC 4.33 M/mm3 (3.60-5.2); RDW 15.4 % (11.6-15.6); WHITE BLOOD COUNT 13.8 K/mm3 (4.0-10.0)
[2018-06-09] MEDS ORDERED: dilTIAZem HCL 50 MG/10 ML - 10 ML VIAL IVPUSH ONE (10:30)
--- NOTE | 2018-06-09 11:21 | PN ---
Progress Note, Physician History of Present Illness: PULMONARY - Current Medication List Current Medications: Active Medications Albuterol Sulfate (Ventolin 0.083% Nebulizer Soln -) 1 amp NEB Q6H PRN PRN Reason: SHORT OF BREATH/WHEEZING Albuterol/Ipratropium (Duoneb -) 1 amp NEB RQID [facility] Last Admin: 06/09/18 08:00 Dose: 1 amp Amino Acids (Prosource No Carb Liquid Pkt) 30 ml PO DAILY@0800 [facility] Last Admin: 06/08/18 08:50 Dose: Not Given Apixaban (Eliquis -) 2.5 mg PO BID [facility] Guaifenesin (Mucinex -) 600 mg PO BID [facility] Last Admin: 06/08/18 21:39 Dose: 600 mg Azithromycin 250 mg/ Dextrose 250 mls @ 250 mls/hr IVPB DAILY [facility] Last Admin: 06/08/18 16:48 Dose: 250 mls/hr Piperacillin Sod/Tazobactam (Sod 2.25 gm/ Dextrose) 50 mls @ 100 mls/hr IVPB Q8H-IV [facility]; Protocol Last Admin: 06/09/18 02:37 Dose: 100 mls/hr Insulin Aspart (Novolog Vial Sliding Scale -) 1 vial SQ ACHS [facility]; Protocol Last Admin: 06/09/18 06:50 Dose: 4 units Isosorbide Mononitrate (Imdur -) 60 mg PO DAILY [facility] Last Admin: 06/08/18 16:47 Dose: Not Given Methylprednisolone Sodium Succinate (Solu-Medrol -) 40 mg IVPUSH BID [facility] Last Admin: 06/08/18 21:39 Dose: 40 mg Metoprolol Tartrate (Lopressor -) 50 mg PO BID [facility] Last Admin: 06/08/18 21:39 Dose: 50 mg Olanzapine (Zyprexa -) 5 mg PO BID [facility] Last Admin: 06/08/18 21:39 Dose: 5 mg Polyethylene Glycol (Miralax (For Daily Use) -) 17 gm PO DAILY [facility] Last Admin: 06/08/18 16:48 Dose: 17 grams Potassium Phos/Sodium Phos (Phos-Nak Packet -) 1 packet PO TID [facility] Last Admin: 06/09/18 05:41 Dose: Not Given Rosuvastatin Calcium (Crestor -) 10 mg PO HS [facility] Last Admin: 06/08/18 21:39 Dose: 10 mg Fluticasone/Salmeterol (Advair 100mcg/50mcg -) 1 puff IH BID [facility] Last Admin: 06/08/18 21:38 Dose: 1 puff Senna (Senna -) 1 tab PO BID [facility] Last Admin: 06/08/18 21:39 Dose: 1 tab - Objective Vital Signs: Vital Signs Temperature 97.5 F L 06/09/18 09:25 Pulse Rate 118 H 06/09/18 10:30 Respiratory Rate 18 06/09/18 10:30 Blood Pressure 107/71 06/09/18 10:30 O2 Sat by Pulse Oximetry (%) 100 06/09/18 08:00 Labs: CBC, BMP 06/09/18 09:40 INR, PTT INR 0.91 (0.83-1.09) 06/05/18 00:30 Problem List - Problems (1) Acute on chronic respiratory failure with hypoxia and hypercapnia Code(s): J96.21 - ACUTE AND CHRONIC RESPIRATORY FAILURE WITH HYPOXIA; J96.22 - ACUTE AND CHRONIC RESPIRATORY FAILURE WITH HYPERCAPNIA Assessment/Plan Problem List - Problems (1) Acute respiratory failure Code(s): J96.00 - ACUTE RESPIRATORY FAILURE, UNSP W HYPOXIA OR HYPERCAPNIA (2) Shortness of breath Code(s): R06.02 - SHORTNESS OF BREATH (3) Dyspnea Code(s): R06.00 - DYSPNEA, UNSPECIFIED Qualifiers: Dyspnea type: shortness of breath Qualified Code(s): R06.02 - Shortness of breath; R06.00 - Dyspnea, unspecified; R06.01 - Orthopnea (4) ESRD (end stage renal disease) on dialysis Code(s): N18.6 - END STAGE RENAL DISEASE; Z99.2 - DEPENDENCE ON RENAL DIALYSIS (5) History of end stage renal disease Code(s): Z87.448 - PERSONAL HISTORY OF OTHER DISEASES OF URINARY SYSTEM (6) COPD exacerbation Code(s): J44.1 - CHRONIC OBSTRUCTIVE PULMONARY DISEASE W (ACUTE) EXACERBATION (7) Diabetes Code(s): E11.9 - TYPE 2 DIABETES MELLITUS WITHOUT COMPLICATIONS Qualifiers: Diabetes mellitus type: type 2 Diabetes mellitus senior care insulin use: without mobile ui/ux designer use Diabetes mellitus complication status: with kidney complications Diabetes mellitus complication detail: with chronic kidney disease Chronic kidney disease stage: on chronic dialysis Qualified Code(s) : E11.22 - Type 2 diabetes mellitus with diabetic chronic kidney disease; N18.6 - End stage renal disease; Z99.2 - Dependence on renal dialysis (8) Hypercholesterolemia Code(s): E78.00 - PURE HYPERCHOLESTEROLEMIA, UNSPECIFIED (9) Hypertension Code(s): I10 - ESSENTIAL (PRIMARY) HYPERTENSION Qualifiers: Hypertension type: essential hypertension Qualified Code(s): I10 - Essential (primary) hypertension (10) Pneumonia Code(s): J18.9 - PNEUMONIA, UNSPECIFIED ORGANISM Qualifiers: Laterality: bilateral Lung location: lower lobe of lung Assessment/Plan Zosyn / Zithromax Aspiration precautions NIPPV support as needed VM O2 ID evaluation Medrol taper BD TX standing and prn hd as per renal DR SANABRIA
[2018-06-09 11:36] LABS: ALK PHOS 56 U/L (45-117); ANION GAP 18 MMOL/L (8-16); BILIRUBIN,TOTAL 1.4 mg/dL (0.2-1); CALCIUM 7.6 mg/dL (8.5-10.1); CHLORIDE 91 mmol/L (98-107); CO2 25 mmol/L (21-32); GLUCOSE,RANDOM 288 mg/dL (74-106); MAGNESIUM 2.2 mg/dL (1.8-2.4); POTASSIUM 4.5 mmol/L (3.5-5.1); SGOT/AST 9 U/L (15-37); SGPT/ALT 19 U/L (13-61); SODIUM 134 mmol/L (136-145); TOT PROT 6.7 g/dl (6.4-8.2)
[2018-06-09 11:59] LABS: BLOOD UREA NITROGEN 118 mg/dL (7-18)
[2018-06-09 12:03] LABS: CREATININE 9.7 mg/dL (0.55-1.3); PHOSPHOROUS 9.3 mg/dL (2.5-4.9)
[2018-06-09] MEDS: METOPROLOL TARTRATE 50 MG TABLET (FP) PO SCH ×2 (12:52→23:38)
[2018-06-09] MEDS: methylPREDNISolone NA SUCC 40 MG/1 ML VIAL IVPUSH SCH ×2 (12:52→22:25)
[2018-06-09] MEDS: OLANZapine 5 MG TABLET PO SCH ×2 (12:53→23:38)
[2018-06-09] MEDS: guaiFENesin 600 MG TABLET.ER (FP) PO SCH ×2 (12:53→23:37)
[2018-06-09] MEDS: FLUTICASONE/SALMETEROL 100 MCG/50 MCG DISKUS IH SCH ×2 (12:53→22:26)
[2018-06-09] MEDS: APIXABAN 2.5 MG TABLET PO SCH ×2 (12:53→23:39)
[2018-06-09] MEDS: POLYETHYLENE GLYCOL 3350 119 GM BTL PO SCH (12:54)
[2018-06-09] MEDS: SENNOSIDES 8.6MG TABLET (FP) PO SCH (12:54)
[2018-06-09] MEDS: AMINO ACIDS/PROTEIN HYDROLYS 30 ML LIQUID.PKT PO SCH (12:54)
[2018-06-09] MEDS: AZITHROMYCIN IVPB 250 MG in DEXTROSE 5%-WATER - 250 ML IVPB SCH (12:54)
[2018-06-09] MEDS: ISOSORBIDE MONONITRATE 60 MG TAB.SR.24H (FP) PO SCH (13:05)
--- NOTE | 2018-06-09 14:26 | EKG ---
Test Reason : Blood Pressure : / mmHG Vent. Rate : 119 BPM Atrial Rate : 113 BPM P-R Int : 000 ms QRS Dur : 086 ms QT Int : 312 ms P-R-T Axes : 000 088 053 degrees QTc Int : 438 ms ATRIAL FIBRILLATION WITH RAPID VENTRICULAR RESPONSE VOLTAGE CRITERIA FOR LEFT VENTRICULAR HYPERTROPHY ABNORMAL ECG WHEN COMPARED WITH ECG OF 06-JUN-2018 13:45, ATRIAL FIBRILLATION HAS REPLACED SINUS RHYTHM Confirmed by MD Nargis, Elvis ([id number]) on 06/09/2018 2:25:48 PM Referred By: Confirmed By:Elvis Barillas MD
--- NOTE | 2018-06-09 14:27 | PN ---
Progress Note, Physician History of Present Illness: Pt seen and examined at bedside. HD was terminated early secondary to tachycardia. - Current Medication List Current Medications: Active Medications Albuterol Sulfate (Ventolin 0.083% Nebulizer Soln -) 1 amp NEB Q6H PRN PRN Reason: SHORT OF BREATH/WHEEZING Albuterol/Ipratropium (Duoneb -) 1 amp NEB RQID [facility] Last Admin: 06/09/18 11:43 Dose: Not Given Amino Acids (Prosource No Carb Liquid Pkt) 30 ml PO DAILY@0800 [facility] Last Admin: 06/09/18 12:54 Dose: 30 ml Apixaban (Eliquis -) 2.5 mg PO BID [facility] Last Admin: 06/09/18 12:53 Dose: 2.5 mg Guaifenesin (Mucinex -) 600 mg PO BID [facility] Last Admin: 06/09/18 12:53 Dose: 600 mg Azithromycin 250 mg/ Dextrose 250 mls @ 250 mls/hr IVPB DAILY [facility] Last Admin: 06/09/18 12:54 Dose: 250 mls/hr Piperacillin Sod/Tazobactam (Sod 2.25 gm/ Dextrose) 50 mls @ 100 mls/hr IVPB Q8H-IV [facility]; Protocol Last Admin: 06/09/18 12:53 Dose: 100 mls/hr Insulin Aspart (Novolog Vial Sliding Scale -) 1 vial SQ ACHS [facility]; Protocol Last Admin: 06/09/18 13:09 Dose: 6 units Isosorbide Mononitrate (Imdur -) 60 mg PO DAILY [facility] Last Admin: 06/09/18 13:05 Dose: Not Given Methylprednisolone Sodium Succinate (Solu-Medrol -) 40 mg IVPUSH BID [facility] Last Admin: 06/09/18 12:52 Dose: 40 mg Metoprolol Tartrate (Lopressor -) 50 mg PO BID [facility] Last Admin: 06/09/18 12:52 Dose: 50 mg Olanzapine (Zyprexa -) 5 mg PO BID [facility] Last Admin: 06/09/18 12:53 Dose: 5 mg Polyethylene Glycol (Miralax (For Daily Use) -) 17 gm PO DAILY [facility] Last Admin: 06/09/18 12:54 Dose: Not Given Potassium Phos/Sodium Phos (Phos-Nak Packet -) 1 packet PO TID [facility] Last Admin: 06/09/18 05:41 Dose: Not Given Rosuvastatin Calcium (Crestor -) 10 mg PO HS [facility] Last Admin: 06/08/18 21:39 Dose: 10 mg Fluticasone/Salmeterol (Advair 100mcg/50mcg -) 1 puff IH BID [facility] Last Admin: 06/09/18 12:53 Dose: 1 puff Senna (Senna -) 1 tab PO BID [facility] Last Admin: 06/09/18 12:54 Dose: Not Given - Objective Vital Signs: Vital Signs Temperature 97.5 F L 06/09/18 09:25 Pulse Rate 126 H 06/09/18 12:08 Respiratory Rate 24 H 06/09/18 12:08 Blood Pressure 129/65 06/09/18 12:08 O2 Sat by Pulse Oximetry (%) 100 06/09/18 08:00 Constitutional: Yes: Calm Eyes: Yes: Conjunctiva Clear HENT: Yes: Atraumatic Cardiovascular: Yes: S1, S2 Respiratory: Yes: CTA Bilaterally, On Nasal O2 Gastrointestinal: Yes: Soft Genitourinary: Yes: WNL Musculoskeletal: Yes: WNL Edema: No Integumentary: Yes: WNL Neurological: Yes: Confusion Labs: CBC, BMP 06/09/18 09:40 06/09/18 09:40 INR, PTT INR 0.91 (0.83-1.09) 06/05/18 00:30 - ....Imaging Chest X-ray: Report Reviewed Assessment/Plan Current Medications Generic Name Dose Route Start Last Admin Trade Name Freq PRN Reason Stop Dose Admin Albuterol Sulfate 1 amp 06/05/18 04:34 Ventolin 0.083% Nebulizer Soln - NEB Q6H PRN SHORT OF BREATH/WHEEZING Albuterol/Ipratropium 1 amp 06/05/18 16:00 06/09/18 11:43 Duoneb - NEB Not Given RQID [facility] Amino Acids 30 ml 06/07/18 11:30 06/09/18 12:54 Prosource No Carb Liquid Pkt PO 30 ml DAILY@0800 [facility] Administration Apixaban 2.5 mg 06/09/18 10:00 06/09/18 12:53 Eliquis - PO 2.5 mg BID [facility] Administration Guaifenesin 600 mg 06/05/18 10:00 06/09/18 12:53 Mucinex - PO 600 mg BID [facility] Administration Azithromycin 250 mg/ Dextrose 250 mls @ 250 mls/hr 06/05/18 10:00 06/09/18 12 :54 IVPB 250 mls/hr DAILY [facility] Administration Piperacillin Sod/Tazobactam 50 mls @ 100 mls/hr 06/05/18 18:00 06/09/18 12:53 Sod 2.25 gm/ Dextrose IVPB 100 mls/hr Q8H-IV [facility] Administration Protocol Insulin Aspart 1 vial 06/05/18 07:00 06/09/18 13:09 Novolog Vial Sliding Scale - SQ 6 units ACHS [facility] Administration Protocol Isosorbide Mononitrate 60 mg 06/05/18 10:00 06/09/18 13:05 Imdur - PO Not Given DAILY [facility] Methylprednisolone Sodium Succinate 40 mg 06/08/18 12:15 06/09/18 12:52 Solu-Medrol - IVPUSH 40 mg BID [facility] Administration Metoprolol Tartrate 50 mg 06/05/18 10:00 06/09/18 12:52 Lopressor - PO 50 mg BID [facility] Administration Olanzapine 5 mg 06/05/18 10:00 06/09/18 12:53 Zyprexa - PO 5 mg BID [facility] Administration Polyethylene Glycol 17 gm 06/08/18 10:00 06/09/18 12:54 Miralax (For Daily Use) - PO Not Given DAILY [facility] Potassium Phos/Sodium Phos 1 packet 06/05/18 06:00 06/09/18 05:41 Phos-Nak Packet - PO Not Given TID [facility] Rosuvastatin Calcium 10 mg 06/05/18 22:00 06/08/18 21:39 Crestor - PO 10 mg HS [facility] Administration Fluticasone/Salmeterol 1 puff 06/05/18 10:00 06/09/18 12:53 Advair 100mcg/50mcg - IH 1 puff BID [facility] Administration Senna 1 tab 06/07/18 22:00 06/09/18 12:54 Senna - PO Not Given BID [facility] Impression 1. ESRD 2. HTN 3. HLD 4. COPD 5. DM 6. pos heb b core 7. confusion with altered mental status 8. anemia Plan - HD today - d/c phos supplements - start phos binders - bipap as needed - cxr reviewed from yesterday - renal diet can care for her at home
[2018-06-09 14:35] LABS: ANISOCYTOSIS 0; MACROCYTOSIS 0; PLATELET ESTIMATE NORMAL; TARGET CELLS 1+
--- NOTE | 2018-06-09 14:59 | PN ---
Physical Exam: SUBJECTIVE: Patient seen and examined this AM. Was found to be in AFib with RVR yesterday afternoon; was given one dose metoprolol 25mg and started on Eliquis BID. Otherwise, No acute over night events as per nursing staff. During HD this am, patient had tachycardia to the 140s and was given Cardizem 5mg IV Push. OBJECTIVE: Vital Signs Period Temp Pulse Resp BP Sys/Betancourt Pulse Ox Last 24 Hr 97.3 F-98.1 F 105-129 18-26 96-129/43-76 95-100 GENERAL: The patient is awake, alert, and fully oriented, in no acute distress. HEAD: NCAT EYES: PERRL, EOMI ENT: moist mucous membranes. NECK: Supple, No JVD LUNGS: Diminished breath sounds at the bases, no wheezes, no crackles HEART: Regular rate and rhythm, S1, S2 without murmur ABDOMEN: Soft, nontender, nondistended, + bowel sounds, no guarding EXTREMITIES: No edema. LUE Fistula with palpable thrill and audible bruit NEUROLOGICAL: Cranial nerves II through XII grossly intact. Normal speech. SKIN: Warm, dry Laboratory Results - last 24 hr 06/08/18 06/08/18 06/09/18 16:28 21:36 06:00 WBC RBC Hgb Hct MCV MCH MCHC RDW Plt Count MPV Absolute Neuts (auto) Neutrophils % Neutrophils % (Manual) Band Neutrophils % Lymphocytes % Lymphocytes % (Manual) Monocytes % Monocytes % (Manual) Eosinophils % Eosinophils % (Manual) Basophils % Basophils % (Manual) Myelocytes % (Man) Promyelocytes % (Man) Blast Cells % (Manual) Nucleated RBC % Metamyelocytes Hypochromia Platelet Estimate Polychromasia Poikilocytosis Anisocytosis Microcytosis Macrocytosis Target Cells Sodium Potassium Chloride Carbon Dioxide Anion Gap BUN Creatinine Creat Clearance w eGFR POC Glucometer 308 227 Random Glucose Hemoglobin A1c % 5.6 Calcium Phosphorus Magnesium Total Bilirubin AST ALT Alkaline Phosphatase Total Protein Albumin 06/09/18 06/09/18 06/09/18 06:01 09:40 09:40 WBC 13.8 H RBC 4.33 Hgb 11.9 Hct 36.4 MCV 84.1 MCH 27.6 MCHC 32.8 RDW 15.4 Plt Count 260 MPV 10.3 Absolute Neuts (auto) 11.9 H Neutrophils % 86.3 H Neutrophils % (Manual) 92.9 H Band Neutrophils % 0.0 Lymphocytes % 8.0 D Lymphocytes % (Manual) 0.0 L Monocytes % 5.2 D Monocytes % (Manual) 3 L D Eosinophils % 0.2 D Eosinophils % (Manual) 0.0 Basophils % 0.3 Basophils % (Manual) 0.0 Myelocytes % (Man) 1 Promyelocytes % (Man) 0 Blast Cells % (Manual) 0 Nucleated RBC % 0 Metamyelocytes 0 Hypochromia 1+ Platelet Estimate Normal Polychromasia 1+ Poikilocytosis 1+ Anisocytosis 0 Microcytosis 0 Macrocytosis 0 Target Cells 1+ Sodium 134 L Potassium 4.5 Chloride 91 L Carbon Dioxide 25 Anion Gap 18 H BUN 118 H* Creatinine 9.7 H* Creat Clearance w eGFR 3.80 POC Glucometer 236 Random Glucose 288 H Hemoglobin A1c % Calcium 7.6 L Phosphorus 9.3 H* Magnesium 2.2 Total Bilirubin 1.4 H AST 9 L ALT 19 Alkaline Phosphatase 56 Total Protein 6.7 Albumin 3.0 L 06/09/18 12:06 WBC RBC Hgb Hct MCV MCH MCHC RDW Plt Count MPV Absolute Neuts (auto) Neutrophils % Neutrophils % (Manual) Band Neutrophils % Lymphocytes % Lymphocytes % (Manual) Monocytes % Monocytes % (Manual) Eosinophils % Eosinophils % (Manual) Basophils % Basophils % (Manual) Myelocytes % (Man) Promyelocytes % (Man) Blast Cells % (Manual) Nucleated RBC % Metamyelocytes Hypochromia Platelet Estimate Polychromasia Poikilocytosis Anisocytosis Microcytosis Macrocytosis Target Cells Sodium Potassium Chloride Carbon Dioxide Anion Gap BUN Creatinine Creat Clearance w eGFR POC Glucometer 283 Random Glucose Hemoglobin A1c % Calcium Phosphorus Magnesium Total Bilirubin AST ALT Alkaline Phosphatase Total Protein Albumin Microbiology 06/05/18 08:45 Blood - Peripheral Venous Blood Culture - Preliminary NO GROWTH OBTAINED AFTER 72 HOURS, INCUBATION TO CONTINUE FOR 2 DAYS. 06/05/18 17:19 Blood - Peripheral Venous Blood Culture - Preliminary NO GROWTH OBTAINED AFTER 72 HOURS, INCUBATION TO CONTINUE FOR 2 DAYS. 06/05/18 06:30 Urine For Antigen Detection Legionella Antigen - Final 06/05/18 06:30 Urine For Antigen Detection Streptococcus pneumoniae Antigen (M - Final Active Medications Amino Acids (Prosource No Carb Liquid Pkt) 30 ml PO DAILY@0800 [facility] Last Admin: 06/09/18 12:54 Dose: 30 ml Apixaban (Eliquis -) 2.5 mg PO BID [facility] Last Admin: 06/09/18 12:53 Dose: 2.5 mg Calcium Acetate (Phoslo -) 1,334 mg PO TIDCM [facility] Guaifenesin (Mucinex -) 600 mg PO BID [facility] Last Admin: 06/09/18 12:53 Dose: 600 mg Azithromycin 250 mg/ Dextrose 250 mls @ 250 mls/hr IVPB DAILY [facility] Last Admin: 06/09/18 12:54 Dose: 250 mls/hr Piperacillin Sod/Tazobactam (Sod 2.25 gm/ Dextrose) 50 mls @ 100 mls/hr IVPB Q8H-IV [facility]; Protocol Last Admin: 06/09/18 12:53 Dose: 100 mls/hr Insulin Aspart (Novolog Vial Sliding Scale -) 1 vial SQ ACHS [facility]; Protocol Last Admin: 06/09/18 13:09 Dose: 6 units Isosorbide Mononitrate (Imdur -) 60 mg PO DAILY [facility] Last Admin: 06/09/18 13:05 Dose: Not Given Levalbuterol HCl (Xopenex) 0.31 mg IH RTID [facility] Methylprednisolone Sodium Succinate (Solu-Medrol -) 40 mg IVPUSH BID [facility] Last Admin: 06/09/18 12:52 Dose: 40 mg Metoprolol Tartrate (Lopressor -) 50 mg PO BID [facility] Last Admin: 06/09/18 12:52 Dose: 50 mg Olanzapine (Zyprexa -) 5 mg PO BID [facility] Last Admin: 06/09/18 12:53 Dose: 5 mg Polyethylene Glycol (Miralax (For Daily Use) -) 17 gm PO DAILY [facility] Last Admin: 06/09/18 12:54 Dose: Not Given Rosuvastatin Calcium (Crestor -) 10 mg PO HS [facility] Last Admin: 06/08/18 21:39 Dose: 10 mg Fluticasone/Salmeterol (Advair 100mcg/50mcg -) 1 puff IH BID [facility] Last Admin: 06/09/18 12:53 Dose: 1 puff Senna (Senna -) 1 tab PO BID [facility] Last Admin: 06/09/18 12:54 Dose: Not Given IMAGING: -CXR: Single AP view of the chest is submitted. Since the prior study of 2018 there are progressive bibasilar infiltrates. -CXR: AP view of the chest is been submitted. Since 06/05/2018, there are progressive bilateral effusions with basilar atelectasis or infiltrate as well as a large heart, sclerotic knob and chin artifact. Correlation recommended. -EKG: Sinus with occasional PVCs, VR 89, QTc 416 ASSESSMENT/PLAN: 88 y/o F with PMHx of ESRD on HD (M/W/), COPD on 2L Home O2, HTN, NIDDM, Diastolic dysfunction was admitted for RLL PNA #Acute hypoxic respiratory failure -Likely due to RLL PNA -Sputum Cx pending -Continue Piperacillin/Tazobactam 2.25gm IV Q8h and Azithromycin 250mg Daily ( day 4) -Continue Bronchodilators-- Now on Levalbuterol 0.31mg TID -Decrease IV Methylprednisolone to 30mg BID -Mucinix 600mg BID -Pulmonary consulted, appreciate recs -ID (Dr. Morales) Consulted -NIPPV (12/05/13/40%) HS PRN -Supplemental O2 to maintain SpO2 > 90% #AFib with RVR -Remains tachycardic -Increase Metoprolol Tartrate to 75mg PO BID -Continue Apixaban 2.5mg PO BID #ESRD on HD (//) -Dr Reis consulted, appreciate rec's #COPD--O2 Dependent (not in exacerbation) -Continue home dose Fluticasone/Salmeterol 100mcg/50mcg 1 puff BID -Additional Bronchodilator therapy, ABx, and Steroids as per above #HTN -D/C Amlodipine, Losartan -Hold Isosorbide Mononitrate -Increase Metoprolol Tartrate to 75mg PO BID #HLD -Continue home dose Rosuvastatin 10 mg PO HS #DM -ISS BGM ACHS -Elevated BG in the setting of steroid use -A1c 5.6% #?Psychosis/Agitation -Continue home dose Olanzapine 5mg PO BID #FEN -No standing fluids -Lytes WNL -Renal diet #PPx -DVT: Heparin TID Visit type - Emergency Visit Emergency Visit: Yes ED Registration Date: 06/05/18 Care time: The patient presented to the Emergency Department on the above date and was hospitalized for further evaluation of their emergent condition. - New Patient This patient is new to me today: No - Critical Care Critical Care patient: No
--- NOTE | 2018-06-09 15:48 | PN ---
Progress Note, Physician Chief Complaint: Pt in bed. Her daughter is visiting. Pt has not chest pain, dizziness, palpitations, or dyspnea. History of Present Illness: 88YOF with h/o ESRD on hemodialysis (normally is MWF but recently was admitted and was on /Fri schedule, last tx was this , next scheduled treatment is this Fri), COPD (on home O2 2 LPM), HTN, NIDDM, and diastolic dysfunction who returns to [facility] with continued (and now worsening) SOB similar to that which she had on recent admission. She was discharged on 06/03/18 after admission for delirium, and her daughter states that she became SOB during the admission and this worsened significantly just after she returned home. She has additionally had a wet-sounding cough and began to tire out this evening, which prompted them to come back to the hospital. The daughter needed to give her Lasix 20 mg which they had a stock of at home (but patient does not regularly take this). No f/c/n/v/d/c, dysuria, chest pain, abdominal pain, swelling, etc. Patient is DNR (no chest compressions) but she is not DNI (family states she would want intubation if necessary). - Current Medication List Current Medications: Active Medications Amino Acids (Prosource No Carb Liquid Pkt) 30 ml PO DAILY@0800 [facility] Last Admin: 06/09/18 12:54 Dose: 30 ml Apixaban (Eliquis -) 2.5 mg PO BID [facility] Last Admin: 06/09/18 12:53 Dose: 2.5 mg Calcium Acetate (Phoslo -) 1,334 mg PO TIDCM [facility] Guaifenesin (Mucinex -) 600 mg PO BID [facility] Last Admin: 06/09/18 12:53 Dose: 600 mg Azithromycin 250 mg/ Dextrose 250 mls @ 250 mls/hr IVPB DAILY [facility] Last Admin: 06/09/18 12:54 Dose: 250 mls/hr Piperacillin Sod/Tazobactam (Sod 2.25 gm/ Dextrose) 50 mls @ 100 mls/hr IVPB Q8H-IV [facility]; Protocol Last Admin: 06/09/18 12:53 Dose: 100 mls/hr Insulin Aspart (Novolog Vial Sliding Scale -) 1 vial SQ ACHS [facility]; Protocol Last Admin: 06/09/18 13:09 Dose: 6 units Isosorbide Mononitrate (Imdur -) 60 mg PO DAILY [facility] Last Admin: 06/09/18 13:05 Dose: Not Given Levalbuterol HCl (Xopenex) 0.31 mg IH RTID [facility] Methylprednisolone Sodium Succinate (Solu-Medrol -) 30 mg IVPUSH BID [facility] Metoprolol Tartrate (Lopressor -) 75 mg PO BID [facility] Olanzapine (Zyprexa -) 5 mg PO BID [facility] Last Admin: 06/09/18 12:53 Dose: 5 mg Rosuvastatin Calcium (Crestor -) 10 mg PO HS [facility] Last Admin: 06/08/18 21:39 Dose: 10 mg Fluticasone/Salmeterol (Advair 100mcg/50mcg -) 1 puff IH BID [facility] Last Admin: 06/09/18 12:53 Dose: 1 puff - Objective Vital Signs: Vital Signs Temperature 97 F L 06/09/18 15:33 Pulse Rate 73 06/09/18 15:33 Respiratory Rate 20 06/09/18 15:33 Blood Pressure 113/63 06/09/18 15:33 O2 Sat by Pulse Oximetry (%) 100 06/09/18 08:00 Constitutional: Yes: Calm Eyes: Yes: WNL HENT: Yes: WNL Neck: Yes: WNL Cardiovascular: Yes: S1 (varies in intensity), S2 Respiratory: Yes: WNL ...Rectal Exam: Yes: Deferred Genitourinary: No: Anuria Edema: No Neurological: Yes: Alert, Oriented, Weakness Labs: CBC, BMP 06/09/18 09:40 06/09/18 09:40 INR, PTT INR 0.91 (0.83-1.09) 06/05/18 00:30 Abnormal Lab Results 06/09/18 06/09/18 09:40 09:40 WBC 13.8 H Absolute Neuts (auto) 11.9 H Neutrophils % 86.3 H Neutrophils % (Manual) 92.9 H Lymphocytes % (Manual) 0.0 L Monocytes % (Manual) 3 L D Sodium 134 L Chloride 91 L Anion Gap 18 H BUN 118 H* Creatinine 9.7 H* Random Glucose 288 H Calcium 7.6 L Phosphorus 9.3 H* Total Bilirubin 1.4 H AST 9 L Albumin 3.0 L Problem List - Problems (1) New onset atrial fibrillation Assessment/Plan: Now on increased dose metoprolol tartrate (to 75 mg bid) for AF with RVR, with good response. Started on apixaban. ECHO: normal LVEF; borderline dillated LA. 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 Code(s): N18.6 - END STAGE RENAL DISEASE; Z99.2 - DEPENDENCE ON RENAL DIALYSIS (4) Acute on chronic diastolic (congestive) heart failure Assessment/Plan: On metoprolol For hemodialysis. F/u BUn/Cr, electrolytes, Is and Os, and daily weight. Code(s): I50.33 - ACUTE ON CHRONIC DIASTOLIC (CONGESTIVE) HEART FAILURE (5) Hypertension Assessment/Plan: On metoprolol Code(s): I10 - ESSENTIAL (PRIMARY) HYPERTENSION Qualifiers: Hypertension type: essential hypertension Qualified Code(s): I10 - Essential (primary) hypertension
[2018-06-09] MEDS ORDERED: LOSARTAN POTASSIUM 25 MG TABLET PO SCH (16:45)
[2018-06-09] MEDS: CALCIUM ACETATE 667 MG CAPSULE (FP) PO SCH (17:54)
--- NOTE | 2018-06-09 17:59 | PN ---
Teaching Attending Note Name of Resident: Xin Barrera ATTENDING PHYSICIAN STATEMENT I saw and evaluated the patient. I reviewed the resident's note and discussed the case with the resident. I agree with the resident's findings and plan as documented. SUBJECTIVE: seen during HD. No SOB , tiered. no dizziness. tachy to 140 s, no CP . given 5 of cardizem and then BP dropped to 80s/50s. given IVF abd recovered to 110/60 OBJECTIVE: NAD,awake, tachypnic .daughter at bedside CV: RRR, no MRG lungs: CTAB Ext: no edema Abd: soft, minimal tenderness in all quadrants , ND , NL BS A/P : 87 y/o lady with h/o ESRD on HD MWF, COPD on home O2, GERD, HTN, HLP, DM, and other medical problems with recent hospitalization for agitation who presented this time with SOB and productive cough. She was found to have RLL PNA 1- New onset A fib with RVR: this am , not controlled on 50 mg of lopresor BID. BP on lower side ( 90-105) increase lopressore to 75 BID. hold losartan, norvasc, to give room for rate control will resume imdur tomorrow will resume losartan at lower dose later. probably will not resume norvasc had echo 05/01/18 . no need to reorder card consult 2- Acute hypoxic resp failure RLL PNA: continued SOB is probably due to RVR - cont zosyn and azithro day 5. will d/w ID the possibility to switch to po abx and dc azithro - cont steroids ( dose decreased) . - BIPAP q HS and as needed. 3- ESRD - HD today 4- HTN:as above 4- h/o DM with hyperglycemia. not on any meds at home. now on steroids - cont SSI now - A1c - might need SSI at dc or an oral agent , especially while on steroids 5- Agitation with HD. cont zyprexa. out pt neuropsych eval Code status : full code DVT PX: heparin sq Rehab at dc when ready
--- NOTE | 2018-06-09 19:19 | PN ---
Progress Note, Physician History of Present Illness: PULMONARY ALERT,ON HD,DYSPNEA IMPROVING - Current Medication List Current Medications: Active Medications Amino Acids (Prosource No Carb Liquid Pkt) 30 ml PO DAILY@0800 [facility] Last Admin: 06/09/18 12:54 Dose: 30 ml Apixaban (Eliquis -) 2.5 mg PO BID [facility] Last Admin: 06/09/18 12:53 Dose: 2.5 mg Calcium Acetate (Phoslo -) 1,334 mg PO TIDCM [facility] Last Admin: 06/09/18 17:54 Dose: 1,334 mg Guaifenesin (Mucinex -) 600 mg PO BID [facility] Last Admin: 06/09/18 12:53 Dose: 600 mg Azithromycin 250 mg/ Dextrose 250 mls @ 250 mls/hr IVPB DAILY [facility] Last Admin: 06/09/18 12:54 Dose: 250 mls/hr Piperacillin Sod/Tazobactam (Sod 2.25 gm/ Dextrose) 50 mls @ 100 mls/hr IVPB Q8H-IV [facility]; Protocol Last Admin: 06/09/18 17:54 Dose: 100 mls/hr Insulin Aspart (Novolog Vial Sliding Scale -) 1 vial SQ ACHS [facility]; Protocol Last Admin: 06/09/18 17:54 Dose: 6 units Isosorbide Mononitrate (Imdur -) 60 mg PO DAILY [facility] Last Admin: 06/09/18 13:05 Dose: Not Given Levalbuterol HCl (Xopenex) 0.31 mg IH RTID [facility] Methylprednisolone Sodium Succinate (Solu-Medrol -) 30 mg IVPUSH BID [facility] Metoprolol Tartrate (Lopressor -) 75 mg PO BID [facility] Olanzapine (Zyprexa -) 5 mg PO BID [facility] Last Admin: 06/09/18 12:53 Dose: 5 mg Rosuvastatin Calcium (Crestor -) 10 mg PO HS [facility] Last Admin: 06/08/18 21:39 Dose: 10 mg Fluticasone/Salmeterol (Advair 100mcg/50mcg -) 1 puff IH BID [facility] Last Admin: 06/09/18 12:53 Dose: 1 puff - Objective Vital Signs: Vital Signs Temperature 97.4 F L 06/09/18 16:40 Pulse Rate 116 H 06/09/18 16:40 Respiratory Rate 20 06/09/18 16:40 Blood Pressure 107/43 L 06/09/18 16:40 O2 Sat by Pulse Oximetry (%) 100 06/09/18 08:00 Constitutional: Yes: Calm, Thin Eyes: Yes: WNL HENT: Yes: WNL Neck: Yes: WNL Cardiovascular: Yes: Regular Rate and Rhythm, S1, S2 Respiratory: Yes: Rales (BIBASILAR CRACKLES) Gastrointestinal: Yes: Normal Bowel Sounds, Soft Extremities: Yes: WNL Edema: No Labs: CBC, BMP 06/09/18 09:40 06/09/18 09:40 INR, PTT INR 0.91 (0.83-1.09) 06/05/18 00:30 Problem List - Problems (1) Acute on chronic respiratory failure with hypoxia and hypercapnia Code(s): J96.21 - ACUTE AND CHRONIC RESPIRATORY FAILURE WITH HYPOXIA; J96.22 - ACUTE AND CHRONIC RESPIRATORY FAILURE WITH HYPERCAPNIA Assessment/Plan Problem List - Problems (1) Acute respiratory failure Code(s): J96.00 - ACUTE RESPIRATORY FAILURE, UNSP W HYPOXIA OR HYPERCAPNIA (2) Shortness of breath Code(s): R06.02 - SHORTNESS OF BREATH (3) Dyspnea Code(s): R06.00 - DYSPNEA, UNSPECIFIED Qualifiers: Dyspnea type: shortness of breath Qualified Code(s): R06.02 - Shortness of breath; R06.00 - Dyspnea, unspecified; R06.01 - Orthopnea (4) ESRD (end stage renal disease) on dialysis Code(s): N18.6 - END STAGE RENAL DISEASE; Z99.2 - DEPENDENCE ON RENAL DIALYSIS (5) History of end stage renal disease Code(s): Z87.448 - PERSONAL HISTORY OF OTHER DISEASES OF URINARY SYSTEM (6) COPD exacerbation Code(s): J44.1 - CHRONIC OBSTRUCTIVE PULMONARY DISEASE W (ACUTE) EXACERBATION (7) Diabetes Code(s): E11.9 - TYPE 2 DIABETES MELLITUS WITHOUT COMPLICATIONS Qualifiers: Diabetes mellitus type: type 2 Diabetes mellitus exterminator insulin use: without exterminator use Diabetes mellitus complication status: with kidney complications Diabetes mellitus complication detail: with chronic kidney disease Chronic kidney disease stage: on chronic dialysis Qualified Code(s) : E11.22 - Type 2 diabetes mellitus with diabetic chronic kidney disease; N18.6 - End stage renal disease; Z99.2 - Dependence on renal dialysis (8) Hypercholesterolemia Code(s): E78.00 - PURE HYPERCHOLESTEROLEMIA, UNSPECIFIED (9) Hypertension Code(s): I10 - ESSENTIAL (PRIMARY) HYPERTENSION Qualifiers: Hypertension type: essential hypertension Qualified Code(s): I10 - Essential (primary) hypertension (10) Pneumonia Code(s): J18.9 - PNEUMONIA, UNSPECIFIED ORGANISM Qualifiers: Laterality: bilateral Lung location: lower lobe of lung Assessment/Plan Zosyn / Zithromax Aspiration precautions NIPPV support as needed VM O2 Medrol taper BD TX standing and prn hd as per renal DR SANABRIA
[2018-06-09] MEDS: LEVALBUTEROL HCL 0.31 MG/3 ML VIAL.NEB IH SCH (21:31)
[2018-06-09] MEDS: ROSUVASTATIN CA 10 MG TABLET (FP) PO SCH (23:39)
[2018-06-10] MEDS ORDERED: PIPERACILLIN/TAZOBACTAM 2.25 GM VIAL IVPB ONE ×3 (01:21→20:06)
[2018-06-10] MEDS ORDERED: DEXTROSE 5%-WATER - 50 ML IVPB ONE ×3 (01:21→20:06)
[2018-06-10] MEDS: PIPERACILLIN/TAZOB 2.25 GM 2.25 GM in DEXTROSE 5%-WATER - 50 ML IVPB SCH ×3 (01:45→22:01)
[2018-06-10 07:01] LABS: BASO % 0.1 % (0-2.0); HEMATOCRIT 38.3 % (32.4-45.2); HEMOGLOBIN 12.2 GM/dL (10.7-15.3); LYMPH % 8.5 % (8-40); MCH 27.1 pg (25.7-33.7); MEAN CELL VOLUME 84.7 fl (80-96); MEAN PLT VOLUME 9.7 fl (7.5-11.1); MONO % 3.6 % (3.8-10.2); NEUT % 87.8 % (42.8-82.8); PLATELET COUNT 209 K/MM3 (134-434); RBC 4.52 M/mm3 (3.60-5.2); RDW 15.1 % (11.6-15.6); WHITE BLOOD COUNT 12.7 K/mm3 (4.0-10.0)
[2018-06-10 07:27] LABS: ALBUMIN 2.7 g/dl (3.4-5.0); ALK PHOS 52 U/L (45-117); ANION GAP 12 MMOL/L (8-16); BILIRUBIN,TOTAL 1.1 mg/dL (0.2-1); BLOOD UREA NITROGEN 85 mg/dL (7-18); CALCIUM 7.4 mg/dL (8.5-10.1); CHLORIDE 92 mmol/L (98-107); CO2 30 mmol/L (21-32); GLUCOSE,RANDOM 275 mg/dL (74-106); MAGNESIUM 2.1 mg/dL (1.8-2.4); POTASSIUM 4.8 mmol/L (3.5-5.1); SGOT/AST 9 U/L (15-37); SGPT/ALT 18 U/L (13-61); SODIUM 134 mmol/L (136-145); TOT PROT 6.3 g/dl (6.4-8.2)
[2018-06-10] MEDS: INSULIN SLIDING SCALE (NOVOLOG) 1 VIAL SQ SCH ×4 (08:01→22:04)
[2018-06-10] MEDS: LEVALBUTEROL HCL 0.31 MG/3 ML VIAL.NEB IH SCH ×3 (08:12→21:15)
--- NOTE | 2018-06-10 08:26 | PN ---
Physical Exam: SUBJECTIVE: Patient seen and examined this AM. BB adjusted yesterday afternoon given tachycardia; HR improved and patient tolerated it well. No acute over night events as per nursing staff. OBJECTIVE: Vital Signs Period Temp Pulse Resp BP Sys/Betancourt Pulse Ox Last 24 Hr 97 F-98.5 F 73-129 18-24 100-129/43-76 95-98 GENERAL: The patient is awake, alert, and fully oriented, in no acute distress. HEAD: NCAT EYES: PERRL, EOMI ENT: moist mucous membranes. NECK: Supple, No JVD LUNGS: Diminished breath sounds at the bases, no wheezes, no crackles HEART: RRR, S1, S2 without murmur ABDOMEN: Soft, nontender, nondistended, + bowel sounds, no guarding EXTREMITIES: No edema. LUE Fistula with palpable thrill and audible bruit NEUROLOGICAL: Cranial nerves II through XII grossly intact. Normal speech. SKIN: Warm, dry Laboratory Results - last 24 hr 06/09/18 06/09/18 06/09/18 06:00 09:40 09:40 WBC 13.8 H RBC 4.33 Hgb 11.9 Hct 36.4 MCV 84.1 MCH 27.6 MCHC 32.8 RDW 15.4 Plt Count 260 MPV 10.3 Absolute Neuts (auto) 11.9 H Neutrophils % 86.3 H Neutrophils % (Manual) 92.9 H Band Neutrophils % 0.0 Lymphocytes % 8.0 D Lymphocytes % (Manual) 0.0 L Monocytes % 5.2 D Monocytes % (Manual) 3 L D Eosinophils % 0.2 D Eosinophils % (Manual) 0.0 Basophils % 0.3 Basophils % (Manual) 0.0 Myelocytes % (Man) 1 Promyelocytes % (Man) 0 Blast Cells % (Manual) 0 Nucleated RBC % 0 Metamyelocytes 0 Hypochromia 1+ Platelet Estimate Normal Polychromasia 1+ Poikilocytosis 1+ Anisocytosis 0 Microcytosis 0 Macrocytosis 0 Target Cells 1+ Sodium 134 L Potassium 4.5 Chloride 91 L Carbon Dioxide 25 Anion Gap 18 H BUN 118 H* Creatinine 9.7 H* Creat Clearance w eGFR 3.80 POC Glucometer Random Glucose 288 H Hemoglobin A1c % 5.6 Calcium 7.6 L Phosphorus 9.3 H* Magnesium 2.2 Total Bilirubin 1.4 H AST 9 L ALT 19 Alkaline Phosphatase 56 Total Protein 6.7 Albumin 3.0 L 06/09/18 06/09/18 06/09/18 12:06 17:52 22:24 WBC RBC Hgb Hct MCV MCH MCHC RDW Plt Count MPV Absolute Neuts (auto) Neutrophils % Neutrophils % (Manual) Band Neutrophils % Lymphocytes % Lymphocytes % (Manual) Monocytes % Monocytes % (Manual) Eosinophils % Eosinophils % (Manual) Basophils % Basophils % (Manual) Myelocytes % (Man) Promyelocytes % (Man) Blast Cells % (Manual) Nucleated RBC % Metamyelocytes Hypochromia Platelet Estimate Polychromasia Poikilocytosis Anisocytosis Microcytosis Macrocytosis Target Cells Sodium Potassium Chloride Carbon Dioxide Anion Gap BUN Creatinine Creat Clearance w eGFR POC Glucometer 283 280 129 Random Glucose Hemoglobin A1c % Calcium Phosphorus Magnesium Total Bilirubin AST ALT Alkaline Phosphatase Total Protein Albumin 06/10/18 06/10/18 06/10/18 06:30 06:30 06:45 WBC 12.7 H RBC 4.52 Hgb 12.2 Hct 38.3 MCV 84.7 MCH 27.1 MCHC 32.0 RDW 15.1 Plt Count 209 MPV 9.7 Absolute Neuts (auto) 11.1 H Neutrophils % 87.8 H Neutrophils % (Manual) Band Neutrophils % Lymphocytes % 8.5 Lymphocytes % (Manual) Monocytes % 3.6 L Monocytes % (Manual) Eosinophils % 0.0 D Eosinophils % (Manual) Basophils % 0.1 Basophils % (Manual) Myelocytes % (Man) Promyelocytes % (Man) Blast Cells % (Manual) Nucleated RBC % 0 Metamyelocytes Hypochromia Platelet Estimate Polychromasia Poikilocytosis Anisocytosis Microcytosis Macrocytosis Target Cells Sodium 134 L Potassium 4.8 Chloride 92 L Carbon Dioxide 30 Anion Gap 12 BUN 85 H Creatinine 7.0 H Creat Clearance w eGFR 5.54 POC Glucometer 272 Random Glucose 275 H Hemoglobin A1c % Calcium 7.4 L Phosphorus Magnesium 2.1 Total Bilirubin 1.1 H AST 9 L ALT 18 Alkaline Phosphatase 52 Total Protein 6.3 L Albumin 2.7 L Microbiology 06/05/18 08:45 Blood - Peripheral Venous Blood Culture - Preliminary NO GROWTH OBTAINED AFTER 72 HOURS, INCUBATION TO CONTINUE FOR 2 DAYS. 06/05/18 17:19 Blood - Peripheral Venous Blood Culture - Preliminary NO GROWTH OBTAINED AFTER 72 HOURS, INCUBATION TO CONTINUE FOR 2 DAYS. 06/05/18 06:30 Urine For Antigen Detection Legionella Antigen - Final 06/05/18 06:30 Urine For Antigen Detection Streptococcus pneumoniae Antigen (M - Final Active Medications Amino Acids (Prosource No Carb Liquid Pkt) 30 ml PO DAILY@0800 [facility] Last Admin: 06/09/18 12:54 Dose: 30 ml Apixaban (Eliquis -) 2.5 mg PO BID [facility] Last Admin: 06/09/18 23:39 Dose: 2.5 mg Calcium Acetate (Phoslo -) 1,334 mg PO TIDCM [facility] Last Admin: 06/09/18 17:54 Dose: 1,334 mg Guaifenesin (Mucinex -) 600 mg PO BID [facility] Last Admin: 06/09/18 23:37 Dose: 600 mg Azithromycin 250 mg/ Dextrose 250 mls @ 250 mls/hr IVPB DAILY [facility] Last Admin: 06/09/18 12:54 Dose: 250 mls/hr Piperacillin Sod/Tazobactam (Sod 2.25 gm/ Dextrose) 50 mls @ 100 mls/hr IVPB Q8H-IV [facility]; Protocol Last Admin: 06/10/18 01:45 Dose: 100 mls/hr Insulin Aspart (Novolog Vial Sliding Scale -) 1 vial SQ ACHS [facility]; Protocol Last Admin: 06/10/18 08:01 Dose: 6 units Isosorbide Mononitrate (Imdur -) 60 mg PO DAILY [facility] Last Admin: 06/09/18 13:05 Dose: Not Given Levalbuterol HCl (Xopenex) 0.31 mg IH RTID [facility] Last Admin: 06/10/18 08:12 Dose: Not Given Methylprednisolone Sodium Succinate (Solu-Medrol -) 30 mg IVPUSH BID [facility] Last Admin: 06/09/18 22:25 Dose: 30 mg Metoprolol Tartrate (Lopressor -) 75 mg PO BID [facility] Last Admin: 06/09/18 23:38 Dose: 75 mg Olanzapine (Zyprexa -) 5 mg PO BID [facility] Last Admin: 06/09/18 23:38 Dose: 5 mg Rosuvastatin Calcium (Crestor -) 10 mg PO HS [facility] Last Admin: 06/09/18 23:39 Dose: 10 mg Fluticasone/Salmeterol (Advair 100mcg/50mcg -) 1 puff IH BID [facility] Last Admin: 06/09/18 22:26 Dose: 1 puff IMAGING: -CXR: Single AP view of the chest is submitted. Since the prior study of 2018 there are progressive bibasilar infiltrates. -CXR: AP view of the chest is been submitted. Since 06/05/2018, there are progressive bilateral effusions with basilar atelectasis or infiltrate as well as a large heart, sclerotic knob and chin artifact. Correlation recommended. -EKG: Sinus with occasional PVCs, VR 89, QTc 416 ASSESSMENT/PLAN: 88 y/o F with PMHx of ESRD on HD (M/W/F), COPD on 2L Home O2, HTN, NIDDM, Diastolic dysfunction was admitted for RLL PNA #Acute hypoxic respiratory failure -Likely due to RLL PNA -Sputum Cx pending -Continue Piperacillin/Tazobactam 2.25gm IV Q8h (day 5) -Completed course of Azithromycin 250mg Daily -Continue Bronchodilators--Levalbuterol 0.31mg TID -Taper IV Methylprednisolone -Mucinix 600mg BID -Pulmonary consulted, appreciate recs -ID (Dr. Morales) Consulted -NIPPV (12/05/13/40%) HS PRN -Supplemental O2 to maintain SpO2 > 90% #AFib with RVR -Tachycardia improved -Increase Metoprolol Tartrate 75mg PO to TID -ContinueApixaban 2.5mg PO BID #ESRD on HD (M/W/F) -Dr Reis consulted, appreciate rec's #COPD--O2 Dependent (not in exacerbation) -Continue home dose Fluticasone/Salmeterol 100mcg/50mcg 1 puff BID -Additional Bronchodilator therapy, ABx, and Steroids as per above #HTN -D/C Amlodipine, Losartan -Start Isosorbide Mononitrate 30mg daily -Continue Metoprolol Tartrate #HLD -Continue home dose Rosuvastatin 10 mg PO HS #DM -ISS BGM ACHS -Elevated BG in the setting of steroid use -A1c 5.6% #?Psychosis/Agitation -Continue home dose Olanzapine 5mg PO BID #FEN -No standing fluids -Lytes WNL -Renal diet #PPx -DVT: Apixaban BID Visit type - Emergency Visit Emergency Visit: Yes ED Registration Date: 06/05/18 Care time: The patient presented to the Emergency Department on the above date and was hospitalized for further evaluation of their emergent condition. - New Patient This patient is new to me today: No - Critical Care Critical Care patient: No
[2018-06-10 08:41] LABS: PHOSPHOROUS > 9.0 mg/dL (2.5-4.9)
[2018-06-10] MEDS ORDERED: PT OWN MED DRAWER 7, Y5N ONE (10:05)
--- NOTE | 2018-06-10 10:19 | PN ---
Progress Note, Physician History of Present Illness: 88YOF with h/o ESRD on hemodialysis (normally is MWF but recently was admitted and was on /Fri schedule, last tx was this , next scheduled treatment is this Fri), COPD (on home O2 2 LPM), HTN, NIDDM, and diastolic dysfunction who returns to [facility] with continued (and now worsening) SOB similar to that which she had on recent admission. She was discharged on 06/03/18 after admission for delirium, and her daughter states that she became SOB during the admission and this worsened significantly just after she returned home. She has additionally had a wet-sounding cough and began to tire out this evening, which prompted them to come back to the hospital. The daughter needed to give her Lasix 20 mg which they had a stock of at home (but patient does not regularly take this). No f/c/n/v/d/c, dysuria, chest pain, abdominal pain, swelling, etc. Patient is DNR (no chest compressions) but she is not DNI (family states she would want intubation if necessary). - Current Medication List Current Medications: Active Medications Amino Acids (Prosource No Carb Liquid Pkt) 30 ml PO DAILY@0800 [facility] Last Admin: 06/09/18 12:54 Dose: 30 ml Apixaban (Eliquis -) 2.5 mg PO BID [facility] Last Admin: 06/09/18 23:39 Dose: 2.5 mg Calcium Acetate (Phoslo -) 1,334 mg PO TIDCM [facility] Last Admin: 06/09/18 17:54 Dose: 1,334 mg Guaifenesin (Mucinex -) 600 mg PO BID [facility] Last Admin: 06/09/18 23:37 Dose: 600 mg Azithromycin 250 mg/ Dextrose 250 mls @ 250 mls/hr IVPB DAILY [facility] Last Admin: 06/09/18 12:54 Dose: 250 mls/hr Piperacillin Sod/Tazobactam (Sod 2.25 gm/ Dextrose) 50 mls @ 100 mls/hr IVPB Q8H-IV [facility]; Protocol Last Admin: 06/10/18 01:45 Dose: 100 mls/hr Insulin Aspart (Novolog Vial Sliding Scale -) 1 vial SQ ACHS [facility]; Protocol Last Admin: 06/10/18 08:01 Dose: 6 units Isosorbide Mononitrate (Imdur -) 60 mg PO DAILY [facility] Last Admin: 06/09/18 13:05 Dose: Not Given Levalbuterol HCl (Xopenex) 0.31 mg IH RTID [facility] Last Admin: 06/10/18 08:12 Dose: Not Given Methylprednisolone Sodium Succinate (Solu-Medrol -) 30 mg IVPUSH BID [facility] Last Admin: 06/09/18 22:25 Dose: 30 mg Metoprolol Tartrate (Lopressor -) 75 mg PO BID [facility] Last Admin: 06/09/18 23:38 Dose: 75 mg Olanzapine (Zyprexa -) 5 mg PO BID [facility] Last Admin: 06/09/18 23:38 Dose: 5 mg Rosuvastatin Calcium (Crestor -) 10 mg PO HS [facility] Last Admin: 06/09/18 23:39 Dose: 10 mg Fluticasone/Salmeterol (Advair 100mcg/50mcg -) 1 puff IH BID [facility] Last Admin: 06/09/18 22:26 Dose: 1 puff - Objective Vital Signs: Vital Signs Temperature 98.1 F 06/10/18 06:00 Pulse Rate 97 H 06/10/18 06:00 Respiratory Rate 18 06/10/18 06:00 Blood Pressure 115/62 06/10/18 06:00 O2 Sat by Pulse Oximetry (%) 95 06/10/18 08:11 Eyes: Yes: WNL, Conjunctiva Clear, EOM Intact HENT: Yes: WNL, Atraumatic, Normocephalic Neck: Yes: WNL, Supple, Trachea Midline Cardiovascular: Yes: WNL, Regular Rate and Rhythm Respiratory: Yes: WNL, Regular, CTA Bilaterally Gastrointestinal: Yes: WNL, Normal Bowel Sounds Genitourinary: Yes: WNL Musculoskeletal: Yes: WNL Extremities: Yes: WNL Edema: No Integumentary: Yes: WNL Neurological: Yes: WNL, Alert, Oriented ...Motor Strength: WNL Psychiatric: Yes: WNL Labs: CBC, BMP 06/10/18 06:30 06/10/18 06:30 INR, PTT INR 0.91 (0.83-1.09) 06/05/18 00:30 Problem List - Problems (1) Acute on chronic respiratory failure with hypoxia and hypercapnia Code(s): J96.21 - ACUTE AND CHRONIC RESPIRATORY FAILURE WITH HYPOXIA; J96.22 - ACUTE AND CHRONIC RESPIRATORY FAILURE WITH HYPERCAPNIA (2) Acute respiratory failure Code(s): J96.00 - ACUTE RESPIRATORY FAILURE, UNSP W HYPOXIA OR HYPERCAPNIA (3) Generalized weakness Code(s): R53.1 - WEAKNESS (4) Shortness of breath Code(s): R06.02 - SHORTNESS OF BREATH (5) Abdominal pain Code(s): R10.9 - UNSPECIFIED ABDOMINAL PAIN (6) Abnormal CT of the abdomen Code(s): R93.5 - ABN FINDINGS ON DX IMAGING OF ABD REGIONS, INC RETROPERITON (7) Acute pulmonary edema Code(s): J81.0 - ACUTE PULMONARY EDEMA (8) Dyspnea Code(s): R06.00 - DYSPNEA, UNSPECIFIED Qualifiers: Dyspnea type: shortness of breath Qualified Code(s): R06.02 - Shortness of breath; R06.00 - Dyspnea, unspecified; R06.01 - Orthopnea (9) ESRD (end stage renal disease) Code(s): N18.6 - END STAGE RENAL DISEASE (10) ESRD (end stage renal disease) on dialysis Code(s): N18.6 - END STAGE RENAL DISEASE; Z99.2 - DEPENDENCE ON RENAL DIALYSIS (11) Epigastric abdominal pain Code(s): R10.13 - EPIGASTRIC PAIN (12) Esophagitis Code(s): K20.9 - ESOPHAGITIS, UNSPECIFIED (13) GIB (gastrointestinal bleeding) Code(s): K92.2 - GASTROINTESTINAL HEMORRHAGE, UNSPECIFIED (14) Gastritis Code(s): K29.70 - GASTRITIS, UNSPECIFIED, WITHOUT BLEEDING (15) History of end stage renal disease Code(s): Z87.448 - PERSONAL HISTORY OF OTHER DISEASES OF URINARY SYSTEM (16) Hypertensive urgency Code(s): I16.0 - HYPERTENSIVE URGENCY (17) Hypophosphatemia Code(s): E83.39 - OTHER DISORDERS OF PHOSPHORUS METABOLISM (18) Pulmonary hypertension Code(s): I27.20 - PULMONARY HYPERTENSION, UNSPECIFIED (19) Thrombocytopenia Code(s): D69.6 - THROMBOCYTOPENIA, UNSPECIFIED (20) COPD exacerbation Code(s): J44.1 - CHRONIC OBSTRUCTIVE PULMONARY DISEASE W (ACUTE) EXACERBATION (21) Chronic kidney disease Code(s): N18.9 - CHRONIC KIDNEY DISEASE, UNSPECIFIED (22) Diabetes Code(s): E11.9 - TYPE 2 DIABETES MELLITUS WITHOUT COMPLICATIONS Qualifiers: Diabetes mellitus type: type 2 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 use: without detention use Diabetes mellitus complication status: with kidney complications Diabetes mellitus complication detail: with chronic kidney disease Chronic kidney disease stage: on chronic dialysis Qualified Code(s) : E11.22 - Type 2 diabetes mellitus with diabetic chronic kidney disease; N18.6 - End stage renal disease; Z99.2 - Dependence on renal dialysis (23) Diastolic CHF Code(s): I50.30 - UNSPECIFIED DIASTOLIC (CONGESTIVE) HEART FAILURE Qualifiers: Heart failure chronicity: acute on chronic Qualified Code(s): I50.33 - Acute on chronic diastolic (congestive) heart failure (24) Hypercholesterolemia Code(s): E78.00 - PURE HYPERCHOLESTEROLEMIA, UNSPECIFIED (25) Hypertension Code(s): I10 - ESSENTIAL (PRIMARY) HYPERTENSION Qualifiers: Hypertension type: essential hypertension Qualified Code(s): I10 - Essential (primary) hypertension (26) Pericardial effusion Code(s): I31.3 - PERICARDIAL EFFUSION (NONINFLAMMATORY) (27) Altered mental status, unspecified Code(s): R41.82 - ALTERED MENTAL STATUS, UNSPECIFIED (28) Pneumonia Code(s): J18.9 - PNEUMONIA, UNSPECIFIED ORGANISM Qualifiers: Laterality: bilateral Lung location: lower lobe of lung Assessment/Plan ESRD on hemodialysis (normally is MWF but recently was admitted and was on // Fri schedule, last tx was this , next scheduled treatment is this Fri), COPD (on home O2 2 LPM), HTN, NIDDM, and diastolic dysfunction who developed new onset AF. - Problems (1) New onset atrial fibrillation Assessment/Plan: in NSR now - Now on increased dose metoprolol tartrate (to 75 mg bid) for AF with RVR, with good response. Started on apixaban. ECHO: normal LVEF; borderline dillated LA. 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 Code(s): N18.6 - END STAGE RENAL DISEASE; Z99.2 - DEPENDENCE ON RENAL DIALYSIS (4) Acute on chronic diastolic (congestive) heart failure Assessment/Plan: On metoprolol For hemodialysis. F/u BUn/Cr, electrolytes, Is and Os, and daily weight. Code(s): I50.33 - ACUTE ON CHRONIC DIASTOLIC (CONGESTIVE) HEART FAILURE (5) Hypertension Assessment/Plan: On metoprolol Code(s): I10 - ESSENTIAL (PRIMARY) HYPERTENSION Qualifiers: Hypertension type: essential hypertension Qualified Code(s): I10 - Essential (primary) hypertension
[2018-06-10] MEDS: CALCIUM ACETATE 667 MG CAPSULE (FP) PO SCH ×3 (10:44→17:23)
[2018-06-10] MEDS: METOPROLOL TARTRATE 50 MG TABLET (FP) PO SCH ×2 (10:44→22:00)
[2018-06-10] MEDS: APIXABAN 2.5 MG TABLET PO SCH ×2 (10:44→22:01)
[2018-06-10] MEDS: OLANZapine 5 MG TABLET PO SCH ×2 (10:44→22:01)
[2018-06-10] MEDS: guaiFENesin 600 MG TABLET.ER (FP) PO SCH ×2 (10:44→22:00)
[2018-06-10] MEDS: AMINO ACIDS/PROTEIN HYDROLYS 30 ML LIQUID.PKT PO SCH (10:45)
[2018-06-10] MEDS: FLUTICASONE/SALMETEROL 100 MCG/50 MCG DISKUS IH SCH ×2 (10:45→22:01)
[2018-06-10] MEDS: methylPREDNISolone NA SUCC 40 MG/1 ML VIAL IVPUSH SCH ×2 (10:46→22:00)
[2018-06-10] MEDS: AZITHROMYCIN IVPB 250 MG in DEXTROSE 5%-WATER - 250 ML IVPB SCH (10:46)
[2018-06-10] MEDS ORDERED: SODIUM CHLORIDE 250 ML IV PRN (11:42)
--- NOTE | 2018-06-10 11:42 | PN ---
Progress Note, Physician History of Present Illness: Pt seen and examined at bedside. SHe appear comfortable. She is confused. - Current Medication List Current Medications: Active Medications Amino Acids (Prosource No Carb Liquid Pkt) 30 ml PO DAILY@0800 [facility] Last Admin: 06/10/18 10:45 Dose: 30 ml Apixaban (Eliquis -) 2.5 mg PO BID [facility] Last Admin: 06/10/18 10:44 Dose: 2.5 mg Calcium Acetate (Phoslo -) 1,334 mg PO TIDCM [facility] Last Admin: 06/10/18 10:44 Dose: 1,334 mg Guaifenesin (Mucinex -) 600 mg PO BID [facility] Last Admin: 06/10/18 10:44 Dose: 600 mg Azithromycin 250 mg/ Dextrose 250 mls @ 250 mls/hr IVPB DAILY [facility] Last Admin: 06/10/18 10:46 Dose: 250 mls/hr Piperacillin Sod/Tazobactam (Sod 2.25 gm/ Dextrose) 50 mls @ 100 mls/hr IVPB Q8H-IV [facility]; Protocol Last Admin: 06/10/18 10:46 Dose: 100 mls/hr Insulin Aspart (Novolog Vial Sliding Scale -) 1 vial SQ ACHS [facility]; Protocol Last Admin: 06/10/18 08:01 Dose: 6 units Isosorbide Mononitrate (Imdur -) 60 mg PO DAILY [facility] Last Admin: 06/09/18 13:05 Dose: Not Given Levalbuterol HCl (Xopenex) 0.31 mg IH RTID [facility] Last Admin: 06/10/18 08:12 Dose: Not Given Methylprednisolone Sodium Succinate (Solu-Medrol -) 30 mg IVPUSH BID [facility] Last Admin: 06/10/18 10:46 Dose: 30 mg Metoprolol Tartrate (Lopressor -) 75 mg PO BID [facility] Last Admin: 06/10/18 10:44 Dose: 75 mg Olanzapine (Zyprexa -) 5 mg PO BID [facility] Last Admin: 06/10/18 10:44 Dose: 5 mg Rosuvastatin Calcium (Crestor -) 10 mg PO HS [facility] Last Admin: 06/09/18 23:39 Dose: 10 mg Fluticasone/Salmeterol (Advair 100mcg/50mcg -) 1 puff IH BID [facility] Last Admin: 06/10/18 10:45 Dose: 1 puff Sevelamer Carbonate (Renvela -) 800 mg PO TIDCM [facility] - Objective Vital Signs: Vital Signs Temperature 98.1 F 06/10/18 06:00 Pulse Rate 97 H 06/10/18 06:00 Respiratory Rate 18 06/10/18 06:00 Blood Pressure 115/62 06/10/18 06:00 O2 Sat by Pulse Oximetry (%) 95 06/10/18 08:11 Constitutional: Yes: Calm Eyes: Yes: Conjunctiva Clear HENT: Yes: Atraumatic Cardiovascular: Yes: S1, S2 Respiratory: Yes: On Nasal O2, Other (decreased at bases) Gastrointestinal: Yes: Soft Genitourinary: Yes: WNL Musculoskeletal: Yes: WNL Edema: No Neurological: Yes: Confusion Labs: CBC, BMP 06/10/18 06:30 06/10/18 06:30 INR, PTT INR 0.91 (0.83-1.09) 06/05/18 00:30 Assessment/Plan Current Medications Generic Name Dose Route Start Last Admin Trade Name Nileq PRN Reason Stop Dose Admin Amino Acids 30 ml 06/07/18 11:30 06/10/18 10:45 Prosource No Carb Liquid Pkt PO 30 ml DAILY@0800 [facility] Administration Apixaban 2.5 mg 06/09/18 10:00 06/10/18 10:44 Eliquis - PO 2.5 mg BID [facility] Administration Calcium Acetate 1,334 mg 06/09/18 17:30 06/10/18 10:44 Phoslo - PO 1,334 mg TIDCM [facility] Administration Guaifenesin 600 mg 06/05/18 10:00 06/10/18 10:44 Mucinex - PO 600 mg BID [facility] Administration Azithromycin 250 mg/ Dextrose 250 mls @ 250 mls/hr 06/05/18 10:00 06/10/18 10 :46 IVPB 250 mls/hr DAILY [facility] Administration Piperacillin Sod/Tazobactam 50 mls @ 100 mls/hr 06/05/18 18:00 06/10/18 10:46 Sod 2.25 gm/ Dextrose IVPB 100 mls/hr Q8H-IV [facility] Administration Protocol Insulin Aspart 1 vial 06/05/18 07:00 06/10/18 08:01 Novolog Vial Sliding Scale - SQ 6 units ACHS [facility] Administration Protocol Isosorbide Mononitrate 60 mg 06/05/18 10:00 06/09/18 13:05 Imdur - PO Not Given DAILY [facility] Levalbuterol HCl 0.31 mg 06/09/18 20:00 06/10/18 08:12 Xopenex IH Not Given RTID [facility] Methylprednisolone Sodium Succinate 30 mg 06/09/18 14:54 06/10/18 10:46 Solu-Medrol - IVPUSH 30 mg BID [facility] Administration Metoprolol Tartrate 75 mg 06/09/18 14:56 06/10/18 10:44 Lopressor - PO 75 mg BID [facility] Administration Olanzapine 5 mg 06/05/18 10:00 06/10/18 10:44 Zyprexa - PO 5 mg BID [facility] Administration Rosuvastatin Calcium 10 mg 06/05/18 22:00 06/09/18 23:39 Crestor - PO 10 mg HS [facility] Administration Fluticasone/Salmeterol 1 puff 06/05/18 10:00 06/10/18 10:45 Advair 100mcg/50mcg - IH 1 puff BID [facility] Administration Sevelamer Carbonate 800 mg 06/10/18 12:00 Renvela - PO TIDCM [facility] Impression 1. ESRD 2. HTN 3. HLD 4. COPD 5. DM 6. pos heb b core 7. confusion with altered mental status 8. anemia 9. a-fib Plan - HD tomorrow - add sevelemer to phoslo - check phos daily - renal diet - bipap as needed
--- NOTE | 2018-06-10 12:45 | PN ---
Progress Note, Physician History of Present Illness: pulmonary alert,feeling better,developed increased respiratory distress yesterday,new onset afib post dialysis,chf - Current Medication List Current Medications: Active Medications Amino Acids (Prosource No Carb Liquid Pkt) 30 ml PO DAILY@0800 [facility] Last Admin: 06/10/18 10:45 Dose: 30 ml Apixaban (Eliquis -) 2.5 mg PO BID [facility] Last Admin: 06/10/18 10:44 Dose: 2.5 mg Calcium Acetate (Phoslo -) 1,334 mg PO TIDCM [facility] Last Admin: 06/10/18 10:44 Dose: 1,334 mg Guaifenesin (Mucinex -) 600 mg PO BID [facility] Last Admin: 06/10/18 10:44 Dose: 600 mg Azithromycin 250 mg/ Dextrose 250 mls @ 250 mls/hr IVPB DAILY [facility] Last Admin: 06/10/18 10:46 Dose: 250 mls/hr Piperacillin Sod/Tazobactam (Sod 2.25 gm/ Dextrose) 50 mls @ 100 mls/hr IVPB Q8H-IV [facility]; Protocol Last Admin: 06/10/18 10:46 Dose: 100 mls/hr Sodium Chloride (Normal Saline -) 250 mls @ 3,000 mls/hr IV PRN PRN PRN Reason: Hypotension during Dialysis Stop: 06/11/18 11:42 Insulin Aspart (Novolog Vial Sliding Scale -) 1 vial SQ ACHS [facility]; Protocol Last Admin: 06/10/18 12:26 Dose: 10 units Isosorbide Mononitrate (Imdur -) 60 mg PO DAILY [facility] Last Admin: 06/09/18 13:05 Dose: Not Given Levalbuterol HCl (Xopenex) 0.31 mg IH RTID [facility] Last Admin: 06/10/18 08:12 Dose: Not Given Methylprednisolone Sodium Succinate (Solu-Medrol -) 30 mg IVPUSH BID [facility] Last Admin: 06/10/18 10:46 Dose: 30 mg Metoprolol Tartrate (Lopressor -) 75 mg PO BID [facility] Last Admin: 06/10/18 10:44 Dose: 75 mg Olanzapine (Zyprexa -) 5 mg PO BID [facility] Last Admin: 06/10/18 10:44 Dose: 5 mg Rosuvastatin Calcium (Crestor -) 10 mg PO HS [facility] Last Admin: 04/09/19 23:39 Dose: 10 mg Fluticasone/Salmeterol (Advair 100mcg/50mcg -) 1 puff IH BID [facility] Last Admin: 06/10/18 10:45 Dose: 1 puff Sevelamer Carbonate (Renvela -) 800 mg PO TIDCM [facility] - Objective Vital Signs: Vital Signs Temperature 98.1 F 06/10/18 06:00 Pulse Rate 97 H 06/10/18 06:00 Respiratory Rate 18 06/10/18 06:00 Blood Pressure 115/62 06/10/18 06:00 O2 Sat by Pulse Oximetry (%) 95 06/10/18 08:11 Constitutional: Yes: Calm, Thin Eyes: Yes: WNL HENT: Yes: WNL Neck: Yes: WNL Cardiovascular: Yes: Pulse Irregular, S1, S2 Respiratory: Yes: Rales (bilateral rales, rhonchi), Rhonchi Gastrointestinal: Yes: Normal Bowel Sounds, Soft Extremities: Yes: WNL Edema: No Labs: CBC, BMP 06/10/18 06:30 06/10/18 06:30 INR, PTT INR 0.91 (0.83-1.09) 06/05/18 00:30 Problem List - Problems (1) Acute on chronic respiratory failure with hypoxia and hypercapnia Code(s): J96.21 - ACUTE AND CHRONIC RESPIRATORY FAILURE WITH HYPOXIA; J96.22 - ACUTE AND CHRONIC RESPIRATORY FAILURE WITH HYPERCAPNIA Assessment/Plan Problem List - Problems (1) Acute respiratory failure Code(s): J96.00 - ACUTE RESPIRATORY FAILURE, UNSP W HYPOXIA OR HYPERCAPNIA (2) Shortness of breath Code(s): R06.02 - SHORTNESS OF BREATH (3) Dyspnea Code(s): R06.00 - DYSPNEA, UNSPECIFIED Qualifiers: Dyspnea type: shortness of breath Qualified Code(s): R06.02 - Shortness of breath; R06.00 - Dyspnea, unspecified; R06.01 - Orthopnea (4) ESRD (end stage renal disease) on dialysis Code(s): N18.6 - END STAGE RENAL DISEASE; Z99.2 - DEPENDENCE ON RENAL DIALYSIS (5) History of end stage renal disease Code(s): Z87.448 - PERSONAL HISTORY OF OTHER DISEASES OF URINARY SYSTEM (6) COPD exacerbation Code(s): J44.1 - CHRONIC OBSTRUCTIVE PULMONARY DISEASE W (ACUTE) EXACERBATION (7) Diabetes Code(s): E11.9 - TYPE 2 DIABETES MELLITUS WITHOUT COMPLICATIONS Qualifiers: Diabetes mellitus type: type 2 Diabetes mellitus fpc insulin use: without fpc use Diabetes mellitus complication status: with kidney complications Diabetes mellitus complication detail: with chronic kidney disease Chronic kidney disease stage: on chronic dialysis Qualified Code(s) : E11.22 - Type 2 diabetes mellitus with diabetic chronic kidney disease; N18.6 - End stage renal disease; Z99.2 - Dependence on renal dialysis (8) Hypercholesterolemia Code(s): E78.00 - PURE HYPERCHOLESTEROLEMIA, UNSPECIFIED (9) Hypertension Code(s): I10 - ESSENTIAL (PRIMARY) HYPERTENSION Qualifiers: Hypertension type: essential hypertension Qualified Code(s): I10 - Essential (primary) hypertension (10) Pneumonia Code(s): J18.9 - PNEUMONIA, UNSPECIFIED ORGANISM Qualifiers: Laterality: bilateral Lung location: lower lobe of lung 11 .NEW ONSET AFIB Assessment/Plan Zosyn / Zithromax Aspiration precautions NIPPV support as needed VM O2 rate control lopressor ac Medrol taper BD TX standing and prn hd as per renal DR SANABRIA
[2018-06-10 12:46] LABS: ANISOCYTOSIS 2+; MACROCYTOSIS 0; OVALOCYTE 1+; PLATELET ESTIMATE NORMAL; TARGET CELLS 1+; TEAR DROP CELLS 1+
[2018-06-10] MEDS: SEVELAMER CARBONATE 800 MG TAB (FP) PO SCH ×2 (13:10→17:23)
--- NOTE | 2018-06-10 17:17 | PN ---
Teaching Attending Note Name of Resident: Xin Barrera ATTENDING PHYSICIAN STATEMENT I saw and evaluated the patient. I reviewed the resident's note and discussed the case with the resident. I agree with the resident's findings and plan as documented. SUBJECTIVE: Patient is feeling better, with no acute distress. OBJECTIVE: Vital Signs Temperature 97.9 F 06/10/18 14:00 Pulse Rate 98 H 06/10/18 14:00 Respiratory Rate 18 06/10/18 14:00 Blood Pressure 118/65 06/10/18 14:00 O2 Sat by Pulse Oximetry (%) 95 06/10/18 10:00 GENERAL: The patient is awake, alert, and fully oriented, in no acute distress. HEAD: NCAT, EYES: PERRL, EOMI ENT: moist mucous membranes. NECK: Supple, No JVD LUNGS: Diminished breath sounds at the bases, no wheezes, no crackles HEART: RRR, S1, S2 without murmur ABDOMEN: Soft, NT, ND, positive for BS, no guarding EXTREMITIES: No edema. LUE Fistula with palpable thrill and audible bruit NEUROLOGICAL: Cranial nerves II through XII grossly intact. Normal speech. SKIN: Warm, dry. CBCD WBC 12.7 K/mm3 (4.0-10.0) H 06/10/18 06:30 RBC 4.52 M/mm3 (3.60-5.2) 06/10/18 06:30 Hgb 12.2 GM/dL (10.7-15.3) 06/10/18 06:30 Hct 38.3 % (32.4-45.2) 06/10/18 06:30 MCV 84.7 fl (80-96) 06/10/18 06:30 MCHC 32.0 g/dl (32.0-36.0) 06/10/18 06:30 RDW 15.1 % (11.6-15.6) 06/10/18 06:30 Plt Count 209 K/MM3 (134-434) 06/10/18 06:30 MPV 9.7 fl (7.5-11.1) 06/10/18 06:30 CMP Sodium 134 mmol/L (136-145) L 06/10/18 06:30 Potassium 4.8 mmol/L (3.5-5.1) 06/10/18 06:30 Chloride 92 mmol/L (98-107) L 06/10/18 06:30 Carbon Dioxide 30 mmol/L (21-32) 06/10/18 06:30 Anion Gap 12 MMOL/L (8-16) 06/10/18 06:30 BUN 85 mg/dL (7-18) H 06/10/18 06:30 Creatinine 7.0 mg/dL (0.55-1.3) H 06/10/18 06:30 Creat Clearance w eGFR 5.54 (>60) 06/10/18 06:30 Random Glucose 275 mg/dL (74-106) H 06/10/18 06:30 Calcium 7.4 mg/dL (8.5-10.1) L 06/10/18 06:30 Total Bilirubin 1.1 mg/dL (0.2-1) H 06/10/18 06:30 AST 9 U/L (15-37) L 06/10/18 06:30 ALT 18 U/L (13-61) 06/10/18 06:30 Alkaline Phosphatase 52 U/L (45-117) 06/10/18 06:30 Total Protein 6.3 g/dl (6.4-8.2) L 06/10/18 06:30 Albumin 2.7 g/dl (3.4-5.0) L 06/10/18 06:30 CARDIAC ENZYMES Creatine Kinase 50 U/L (26-192) 06/05/18 00:30 Troponin I < 0.02 ng/ml (0.00-0.05) 06/05/18 10:34 Current Medications Generic Name Dose Route Start Last Admin Trade Name Nileq PRN Reason Stop Dose Admin Amino Acids 30 ml 06/07/18 11:30 06/10/18 10:45 Prosource No Carb Liquid Pkt PO 30 ml DAILY@0800 [facility] Administration Apixaban 2.5 mg 06/09/18 10:00 06/10/18 10:44 Eliquis - PO 2.5 mg BID [facility] Administration Calcium Acetate 1,334 mg 06/09/18 17:30 06/10/18 13:09 Phoslo - PO Not Given TIDCM [facility] Guaifenesin 600 mg 06/05/18 10:00 06/10/18 10:44 Mucinex - PO 600 mg BID [facility] Administration Piperacillin Sod/Tazobactam 50 mls @ 100 mls/hr 06/05/18 18:00 06/10/18 10:46 Sod 2.25 gm/ Dextrose IVPB 100 mls/hr Q8H-IV [facility] Administration Protocol Sodium Chloride 250 mls @ 3,000 mls/hr 06/10/18 11:42 Normal Saline - IV 06/11/18 11:42 PRN PRN Hypotension during Dialysis Insulin Aspart 1 vial 06/05/18 07:00 06/10/18 12:26 Novolog Vial Sliding Scale - SQ 10 units ACHS [facility] Administration Protocol Isosorbide Mononitrate 30 mg 06/10/18 15:05 Imdur - PO DAILY [facility] Levalbuterol HCl 0.31 mg 06/09/18 20:00 06/10/18 13:43 Xopenex IH 0.31 mg RTID [facility] Administration Methylprednisolone Sodium Succinate 30 mg 06/09/18 14:54 06/10/18 10:46 Solu-Medrol - IVPUSH 30 mg BID [facility] Administration Metoprolol Tartrate 75 mg 06/10/18 22:00 Lopressor - PO TID [facility] Olanzapine 5 mg 06/05/18 10:00 06/10/18 10:44 Zyprexa - PO 5 mg BID [facility] Administration Rosuvastatin Calcium 10 mg 06/05/18 22:00 06/09/18 23:39 Crestor - PO 10 mg HS [facility] Administration Fluticasone/Salmeterol 1 puff 06/05/18 10:00 06/10/18 10:45 Advair 100mcg/50mcg - IH 1 puff BID [facility] Administration Sevelamer Carbonate 800 mg 06/10/18 12:00 06/10/18 13:10 Renvela - PO Not Given TIDCM [facility] Home Medications Medication Instructions Recorded Albuterol Sulfate Inhaler - 2 inh PO Q6H 05/27/18 [Ventolin HFA Inhaler -] Amlodipine Besylate 10 mg PO HS 05/27/18 Isosorbide Mononitrate [Imdur -] 60 mg PO DAILY 05/27/18 Losartan Potassium 50 mg PO DAILY 05/27/18 Metoprolol Tartrate 50 mg PO BID 05/27/18 Rosuvastatin [Crestor -] 20 mg PO HS 05/27/18 Salmeterol/Fluticasone [Advair 1 inh PO BID 05/27/18 100Mcg/50Mcg -] Sevelamer Carbonate [Renvela -] 800 mg PO TID 05/27/18 Olanzapine [Zyprexa -] 5 mg PO BID #60 tablet 06/03/18 ASSESSMENT AND PLAN: Patient is a 87 y/o lady with PMHx of ESRD on HD MWF, COPD on home O2, GERD, HTN, HLP, DM, who presented with SOB and productive cough. She was found to have RLL PNA # New onset A fib with RVR: on 50 mg of lopresor BID. BP on lower side ( 90-105 ) , increased the dose of lopresore to 75 BID. will continue to hold losartan, norvasc, to give her room for rate control, continue resume imdur. Had echo on 05/01/18 . no need to reorder card consult # Acute hypoxic respirtory failure due to RLL PNA: continue IV antibiotic Zosyn , on Solu medrol IV continue # ESRD on HD continue # HTN:as above # T2DM: on steroids , continue SSI now. - might need SSI at dc or an oral agent , especially while on steroids # Agitation with HD. cont zyprexa. out pt neuropsych eval Code status : full code DVT PX: heparin sq to Rehab possible dc in am.
[2018-06-10] MEDS: ROSUVASTATIN CA 10 MG TABLET (FP) PO SCH (22:00)
[2018-06-11] MEDS: PIPERACILLIN/TAZOB 2.25 GM 2.25 GM in DEXTROSE 5%-WATER - 50 ML IVPB SCH ×3 (03:35→17:41)
[2018-06-11] MEDS: METOPROLOL TARTRATE 50 MG TABLET (FP) PO SCH ×2 (06:30→15:47)
[2018-06-11] MEDS: INSULIN SLIDING SCALE (NOVOLOG) 1 VIAL SQ SCH ×4 (06:32→21:32)
[2018-06-11] MEDS: LEVALBUTEROL HCL 0.31 MG/3 ML VIAL.NEB IH SCH ×3 (07:25→21:19)
[2018-06-11] MEDS ORDERED: DEXTROSE 5%-WATER - 50 ML IVPB ONE ×2 (10:04→16:15)
[2018-06-11] MEDS ORDERED: PIPERACILLIN/TAZOBACTAM 2.25 GM VIAL IVPB ONE ×2 (10:04→16:15)
[2018-06-11] MEDS: methylPREDNISolone NA SUCC 40 MG/1 ML VIAL IVPUSH SCH ×2 (10:09→21:32)
[2018-06-11] MEDS: SEVELAMER CARBONATE 800 MG TAB (FP) PO SCH ×3 (10:10→17:34)
[2018-06-11] MEDS: CALCIUM ACETATE 667 MG CAPSULE (FP) PO SCH ×3 (10:10→17:34)
[2018-06-11] MEDS: OLANZapine 5 MG TABLET PO SCH ×2 (10:10→21:32)
[2018-06-11] MEDS: guaiFENesin 600 MG TABLET.ER (FP) PO SCH ×2 (10:10→21:32)
[2018-06-11] MEDS: APIXABAN 2.5 MG TABLET PO SCH ×2 (10:10→21:32)
[2018-06-11] MEDS: FLUTICASONE/SALMETEROL 100 MCG/50 MCG DISKUS IH SCH ×2 (10:11→21:33)
[2018-06-11] MEDS: AMINO ACIDS/PROTEIN HYDROLYS 30 ML LIQUID.PKT PO SCH (10:11)
[2018-06-11] MEDS ORDERED: METOPROLOL TARTRATE 25 MG TABLET (FP) PO ONE (11:45)
[2018-06-11 12:11] LABS: HEMATOCRIT 36.1 % (32.4-45.2); HEMOGLOBIN 11.7 GM/dL (10.7-15.3); MCH 27.2 pg (25.7-33.7); MCHC 32.4 g/dl (32.0-36.0); MEAN CELL VOLUME 84.1 fl (80-96); MEAN PLT VOLUME 9.9 fl (7.5-11.1); PLATELET COUNT 220 K/MM3 (134-434); RDW 14.9 % (11.6-15.6); WHITE BLOOD COUNT 11.8 K/mm3 (4.0-10.0)
[2018-06-11 12:43] LABS: ALBUMIN 2.6 g/dl (3.4-5.0); ALK PHOS 47 U/L (45-117); ANION GAP 14 MMOL/L (8-16); BILIRUBIN,TOTAL 1.1 mg/dL (0.2-1); CALCIUM 7.6 mg/dL (8.5-10.1); CHLORIDE 89 mmol/L (98-107); CO2 26 mmol/L (21-32); POTASSIUM 4.8 mmol/L (3.5-5.1); SGOT/AST 6 U/L (15-37); SGPT/ALT 15 U/L (13-61); SODIUM 129 mmol/L (136-145); TOT PROT 6.1 g/dl (6.4-8.2)
[2018-06-11 12:50] LABS: BLOOD UREA NITROGEN 121 mg/dL (7-18); CREATININE 9.3 mg/dL (0.55-1.3); GLUCOSE,RANDOM 324 mg/dL (74-106)
--- NOTE | 2018-06-11 12:51 | PN ---
Progress Note (short form) - Note Progress Note: PULMONARY Appears comfortable. No fevers recorded. Currently receiving HD. Vital Signs Period Temp Pulse Resp BP Sys/Betancourt Pulse Ox Last 24 Hr 97.5 F-98.0 F 66-106 18-20 113-138/63-77 100 Gen: NAD at rest Heart: RRR Lung: decreased breath sounds at the bases Abd: soft, nontender Ext: no edema CBC, BMP 06/11/18 11:30 06/11/18 06:00 Active Medications Amino Acids (Prosource No Carb Liquid Pkt) 30 ml PO DAILY@0800 [facility] Last Admin: 06/11/18 10:11 Dose: 30 ml Apixaban (Eliquis -) 2.5 mg PO BID [facility] Last Admin: 06/11/18 10:10 Dose: 2.5 mg Calcium Acetate (Phoslo -) 1,334 mg PO TIDCM [facility] Last Admin: 06/11/18 10:10 Dose: 1,334 mg Guaifenesin (Mucinex -) 600 mg PO BID [facility] Last Admin: 06/11/18 10:10 Dose: 600 mg Piperacillin Sod/Tazobactam (Sod 2.25 gm/ Dextrose) 50 mls @ 100 mls/hr IVPB Q8H-IV [facility]; Protocol Last Admin: 06/11/18 10:09 Dose: 100 mls/hr Insulin Aspart (Novolog Vial Sliding Scale -) 1 vial SQ ACHS [facility]; Protocol Last Admin: 06/11/18 11:38 Dose: 8 units Isosorbide Mononitrate (Imdur -) 30 mg PO DAILY [facility] Levalbuterol HCl (Xopenex) 0.31 mg IH RTID [facility] Last Admin: 06/11/18 07:25 Dose: 0.31 mg Methylprednisolone Sodium Succinate (Solu-Medrol -) 30 mg IVPUSH BID [facility] Last Admin: 06/11/18 10:09 Dose: 30 mg Metoprolol Tartrate (Lopressor -) 75 mg PO TID [facility] Last Admin: 06/11/18 06:30 Dose: Not Given Olanzapine (Zyprexa -) 5 mg PO BID [facility] Last Admin: 06/11/18 10:10 Dose: 5 mg Rosuvastatin Calcium (Crestor -) 10 mg PO HS [facility] Last Admin: 06/10/18 22:00 Dose: 10 mg Fluticasone/Salmeterol (Advair 100mcg/50mcg -) 1 puff IH BID [facility] Last Admin: 06/11/18 10:11 Dose: 1 puff Sevelamer Carbonate (Renvela -) 800 mg PO TIDCM [facility] Last Admin: 06/11/18 10:10 Dose: 800 mg A/P Pneumonia COPD Chronic Hypoxic Respiratory Failure Atrial Fibrillation ESRD on HD HTN DM - complete antibiotics - HD per renal - O2 to keep Spo2 >90% - inhaled bronchodilators - rate control - continue anticoagulation
--- NOTE | 2018-06-11 14:47 | PN ---
Physical Exam: SUBJECTIVE: Patient seen and examined this AM. HR remains above goal. HD this AM. No acute over night events as per nursing staff. OBJECTIVE: Vital Signs Period Temp Pulse Resp BP Sys/Betancourt Pulse Ox Last 24 Hr 97.5 F-98.0 F 50-106 18-20 101-138/60-77 100-100 GENERAL: The patient is awake, alert, and fully oriented, in no acute distress. HEAD: NCAT EYES: PERRL, EOMI ENT: moist mucous membranes. NECK: Supple, No JVD LUNGS: Diminished breath sounds at the bases, no wheezes, no crackles HEART: Tachycardic S1, S2 without murmur ABDOMEN: Soft, nontender, nondistended, + bowel sounds, no guarding EXTREMITIES: No edema. LUE Fistula with palpable thrill and audible bruit NEUROLOGICAL: Cranial nerves II through XII grossly intact. Normal speech. SKIN: Warm, dry Laboratory Results - last 24 hr 06/11/18 06/11/18 06/11/18 05:42 06:00 11:30 WBC 11.8 H RBC 4.30 Hgb 11.7 Hct 36.1 MCV 84.1 MCH 27.2 MCHC 32.4 RDW 14.9 Plt Count 220 MPV 9.9 Absolute Neuts (auto) 9.9 H Neutrophils % No Result Required. Lymphocytes % No Result Required. Nucleated RBC % 0 Sodium 129 L Potassium 4.8 Chloride 89 L Carbon Dioxide 26 Anion Gap 14 BUN 121 H* Creatinine 9.3 H* Creat Clearance w eGFR 3.99 POC Glucometer 246 Random Glucose 324 H* Calcium 7.6 L Magnesium 2.0 Total Bilirubin 1.1 H AST 6 L ALT 15 Alkaline Phosphatase 47 Total Protein 6.1 L Albumin 2.6 L Microbiology 06/05/18 08:45 Blood - Peripheral Venous Blood Culture - Final NO GROWTH AFTER 5 DAYS INCUBATION 06/05/18 17:19 Blood - Peripheral Venous Blood Culture - Final NO GROWTH AFTER 5 DAYS INCUBATION 06/05/18 06:30 Urine For Antigen Detection Legionella Antigen - Final 06/05/18 06:30 Urine For Antigen Detection Streptococcus pneumoniae Antigen (M - Final Active Medications Amino Acids (Prosource No Carb Liquid Pkt) 30 ml PO DAILY@0800 [facility] Last Admin: 06/11/18 10:11 Dose: 30 ml Apixaban (Eliquis -) 2.5 mg PO BID [facility] Last Admin: 06/11/18 10:10 Dose: 2.5 mg Calcium Acetate (Phoslo -) 1,334 mg PO TIDCM [facility] Last Admin: 06/11/18 14:18 Dose: 1,334 mg Guaifenesin (Mucinex -) 600 mg PO BID [facility] Last Admin: 06/11/18 10:10 Dose: 600 mg Piperacillin Sod/Tazobactam (Sod 2.25 gm/ Dextrose) 50 mls @ 100 mls/hr IVPB Q8H-IV [facility]; Protocol Last Admin: 06/11/18 10:09 Dose: 100 mls/hr Insulin Aspart (Novolog Vial Sliding Scale -) 1 vial SQ ACHS [facility]; Protocol Last Admin: 06/11/18 11:38 Dose: 8 units Isosorbide Mononitrate (Imdur -) 30 mg PO DAILY [facility] Levalbuterol HCl (Xopenex) 0.31 mg IH RTID [facility] Last Admin: 06/11/18 14:29 Dose: 0.31 mg Methylprednisolone Sodium Succinate (Solu-Medrol -) 30 mg IVPUSH BID [facility] Last Admin: 06/11/18 10:09 Dose: 30 mg Metoprolol Tartrate (Lopressor -) 75 mg PO TID [facility] Last Admin: 06/11/18 06:30 Dose: Not Given Olanzapine (Zyprexa -) 5 mg PO BID [facility] Last Admin: 06/11/18 10:10 Dose: 5 mg Rosuvastatin Calcium (Crestor -) 10 mg PO HS [facility] Last Admin: 06/10/18 22:00 Dose: 10 mg Fluticasone/Salmeterol (Advair 100mcg/50mcg -) 1 puff IH BID [facility] Last Admin: 06/11/18 10:11 Dose: 1 puff Sevelamer Carbonate (Renvela -) 800 mg PO TIDCM [facility] Last Admin: 06/11/18 14:19 Dose: Not Given IMAGING: -CXR: Single AP view of the chest is submitted. Since the prior study of 2018 there are progressive bibasilar infiltrates. -CXR: AP view of the chest is been submitted. Since 06/05/2018, there are progressive bilateral effusions with basilar atelectasis or infiltrate as well as a large heart, sclerotic knob and chin artifact. Correlation recommended. -EKG: Sinus with occasional PVCs, VR 89, QTc 416 ASSESSMENT/PLAN: 88 y/o F with PMHx of ESRD on HD (//), COPD on 2L Home O2, HTN, NIDDM, Diastolic dysfunction was admitted for RLL PNA #Acute hypoxic respiratory failure -Likely due to RLL PNA -Piperacillin/Tazobactam 2.25gm IV Q8h (day 6) -Bronchodilators--Levalbuterol 0.31mg TID -Taper IV Methylprednisolone -Mucinix 600mg BID -Pulmonary consulted, appreciate recs -ID (Dr. Morales) Consulted -NIPPV (12/05/13/40%) HS PRN -Supplemental O2 to maintain SpO2 > 90% #AFib with RVR -HR Remains above goal -D/C Metoprolol Tartrate 75mg TID; Start Metoprolol Succinate 100mg BID -Continue Apixaban 2.5mg PO BID #ESRD on HD (//) -Dr Reis consulted, appreciate rec's #COPD--O2 Dependent (not in exacerbation) -Continue home dose Fluticasone/Salmeterol 100mcg/50mcg 1 puff BID -Additional Bronchodilator therapy, ABx, and Steroids as per above #HTN -Isosorbide Mononitrate 30mg daily #HLD -Continue home dose Rosuvastatin 10 mg PO HS #DM -ISS BGM ACHS -Elevated BG in the setting of steroid use -A1c 5.6% #?Psychosis/Agitation -Continue home dose Olanzapine 5mg PO BID #FEN -No standing fluids -Lytes WNL -Renal diet #PPx -DVT: Apixaban BID Visit type - Emergency Visit Emergency Visit: Yes ED Registration Date: 06/05/18 Care time: The patient presented to the Emergency Department on the above date and was hospitalized for further evaluation of their emergent condition. - New Patient This patient is new to me today: No - Critical Care Critical Care patient: No - Discharge Referral Referred to [facility] No
[2018-06-11 15:16] LABS: ANISOCYTOSIS 1+; MACROCYTOSIS 0; PLATELET ESTIMATE NORMAL
--- NOTE | 2018-06-11 15:18 | PN ---
Progress Note, Physician Chief Complaint: Pt sampson finishedhemodialysis. Sits up; mild SOB. History of Present Illness: 88Y black woman (inessa Garcia) with h/o ESRD on hemodialysis (normally is MWF but recently was admitted and was on /Fri schedule, last tx was this , next scheduled treatment is this Fri), COPD (on home O2 2 LPM), HTN, NIDDM, and diastolic dysfunction who returns to [facility] with continued (and now worsening) SOB similar to that which she had on recent admission. She was discharged on 06/03 after admission for delirium, and her daughter states that she became SOB during the admission and this worsened significantly just after she returned home. She has additionally had a wet-sounding cough and began to tire out this evening, which prompted them to come back to the hospital. The daughter needed to give her Lasix 20 mg which they had a stock of at home (but patient does not regularly take this). No f/c/n/v/d/c, dysuria, chest pain, abdominal pain, swelling, etc. Patient is DNR (no chest compressions) but she is not DNI ( family states she would want intubation if necessary). - Current Medication List Current Medications: Active Medications Amino Acids (Prosource No Carb Liquid Pkt) 30 ml PO DAILY@0800 [facility] Last Admin: 06/11/18 10:11 Dose: 30 ml Apixaban (Eliquis -) 2.5 mg PO BID [facility] Last Admin: 06/11/18 10:10 Dose: 2.5 mg Calcium Acetate (Phoslo -) 1,334 mg PO TIDCM [facility] Last Admin: 06/11/18 14:18 Dose: 1,334 mg Guaifenesin (Mucinex -) 600 mg PO BID [facility] Last Admin: 06/11/18 10:10 Dose: 600 mg Piperacillin Sod/Tazobactam (Sod 2.25 gm/ Dextrose) 50 mls @ 100 mls/hr IVPB Q8H-IV [facility]; Protocol Last Admin: 06/11/18 10:09 Dose: 100 mls/hr Insulin Aspart (Novolog Vial Sliding Scale -) 1 vial SQ ACHS [facility]; Protocol Last Admin: 06/11/18 11:38 Dose: 8 units Isosorbide Mononitrate (Imdur -) 30 mg PO DAILY [facility] Levalbuterol HCl (Xopenex) 0.31 mg IH RTID [facility] Last Admin: 06/11/18 14:29 Dose: 0.31 mg Methylprednisolone Sodium Succinate (Solu-Medrol -) 30 mg IVPUSH BID [facility] Last Admin: 06/11/18 10:09 Dose: 30 mg Metoprolol Tartrate (Lopressor -) 75 mg PO TID [facility] Last Admin: 06/11/18 06:30 Dose: Not Given Olanzapine (Zyprexa -) 5 mg PO BID [facility] Last Admin: 06/11/18 10:10 Dose: 5 mg Rosuvastatin Calcium (Crestor -) 10 mg PO HS [facility] Last Admin: 06/10/18 22:00 Dose: 10 mg Fluticasone/Salmeterol (Advair 100mcg/50mcg -) 1 puff IH BID [facility] Last Admin: 06/11/18 10:11 Dose: 1 puff Sevelamer Carbonate (Renvela -) 800 mg PO TIDCM [facility] Last Admin: 06/11/18 14:19 Dose: Not Given - Objective Vital Signs: Vital Signs Temperature 97.6 F 06/11/18 13:10 Pulse Rate 52 L 06/11/18 14:35 Respiratory Rate 18 06/11/18 14:35 Blood Pressure 116/69 06/11/18 14:35 O2 Sat by Pulse Oximetry (%) 100 06/11/18 09:00 Constitutional: Yes: Calm, Thin Eyes: Yes: WNL HENT: Yes: WNL Neck: Yes: WNL Cardiovascular: Yes: S1 (varies in intensity), S2 Respiratory: Yes: Diminished Gastrointestinal: Yes: Soft ...Rectal Exam: Yes: Deferred Genitourinary: No: Anuria Musculoskeletal: Yes: Muscle Weakness Extremities: Yes: Cool Edema: No Peripheral Pulses WNL: Yes Integumentary: Yes: WNL Neurological: Yes: Alert Psychiatric: Yes: Alert Labs: CBC, BMP 06/11/18 11:30 06/11/18 06:00 INR, PTT INR 0.91 (0.83-1.09) 06/05/18 00:30 Abnormal Lab Results 06/11/18 06/11/18 06:00 11:30 WBC 11.8 H Absolute Neuts (auto) 9.9 H Sodium 129 L Chloride 89 L BUN 121 H* Creatinine 9.3 H* Random Glucose 324 H* Calcium 7.6 L Total Bilirubin 1.1 H AST 6 L Total Protein 6.1 L Albumin 2.6 L Abnormal Lab Results 06/11/18 06/11/18 06:00 11:30 WBC 11.8 H Absolute Neuts (auto) 9.9 H Sodium 129 L Chloride 89 L BUN 121 H* Creatinine 9.3 H* Random Glucose 324 H* Calcium 7.6 L Total Bilirubin 1.1 H AST 6 L Total Protein 6.1 L Albumin 2.6 L - ....Imaging Other: Image Reviewed (telemetry: NSR; isolated PVCs) Problem List - Problems (1) New onset atrial fibrillation Assessment/Plan: Pt is in sinus tachycardia post-hemodialysis. O2 sat 96% on 2 L NC O2. Metoprolol had been held this morning; 75 mg has just be given. On apixaban for anticoagulation. Andemia, pain, anemia, volume status, sepsis, respiratory distress are all among the potential contributing factors to the rapid sinus rate. Code(s): I48.91 - UNSPECIFIED ATRIAL FIBRILLATION (2) Shortness of breath Code(s): R06.02 - SHORTNESS OF BREATH (3) ESRD (end stage renal disease) on dialysis Assessment/Plan: hemodialysis per tire worker. Code(s): N18.6 - END STAGE RENAL DISEASE; Z99.2 - DEPENDENCE ON RENAL DIALYSIS (4) Acute on chronic diastolic (congestive) heart failure Assessment/Plan: On metoprolol For hemodialysis. F/u BUn/Cr, electrolytes, Is and Os, and daily weight. Code(s): I50.33 - ACUTE ON CHRONIC DIASTOLIC (CONGESTIVE) HEART FAILURE (5) Hypertension Assessment/Plan: On metoprolol Code(s): I10 - ESSENTIAL (PRIMARY) HYPERTENSION Qualifiers: Hypertension type: essential hypertension Qualified Code(s): I10 - Essential (primary) hypertension
--- NOTE | 2018-06-11 15:28 | PN ---
Progress Note, Physician History of Present Illness: Pt seen and examined at bedside. She tolerated HD. She did not have any chest pain on HD. - Current Medication List Current Medications: Active Medications Amino Acids (Prosource No Carb Liquid Pkt) 30 ml PO DAILY@0800 [facility] Last Admin: 06/11/18 10:11 Dose: 30 ml Apixaban (Eliquis -) 2.5 mg PO BID [facility] Last Admin: 06/11/18 10:10 Dose: 2.5 mg Calcium Acetate (Phoslo -) 1,334 mg PO TIDCM [facility] Last Admin: 06/11/18 14:18 Dose: 1,334 mg Guaifenesin (Mucinex -) 600 mg PO BID [facility] Last Admin: 06/11/18 10:10 Dose: 600 mg Piperacillin Sod/Tazobactam (Sod 2.25 gm/ Dextrose) 50 mls @ 100 mls/hr IVPB Q8H-IV [facility]; Protocol Last Admin: 06/11/18 10:09 Dose: 100 mls/hr Insulin Aspart (Novolog Vial Sliding Scale -) 1 vial SQ ACHS [facility]; Protocol Last Admin: 06/11/18 11:38 Dose: 8 units Isosorbide Mononitrate (Imdur -) 30 mg PO DAILY [facility] Levalbuterol HCl (Xopenex) 0.31 mg IH RTID [facility] Last Admin: 06/11/18 14:29 Dose: 0.31 mg Methylprednisolone Sodium Succinate (Solu-Medrol -) 30 mg IVPUSH BID [facility] Last Admin: 06/11/18 10:09 Dose: 30 mg Metoprolol Tartrate (Lopressor -) 75 mg PO TID [facility] Last Admin: 06/11/18 06:30 Dose: Not Given Olanzapine (Zyprexa -) 5 mg PO BID [facility] Last Admin: 06/11/18 10:10 Dose: 5 mg Rosuvastatin Calcium (Crestor -) 10 mg PO HS [facility] Last Admin: 06/10/18 22:00 Dose: 10 mg Fluticasone/Salmeterol (Advair 100mcg/50mcg -) 1 puff IH BID [facility] Last Admin: 06/11/18 10:11 Dose: 1 puff Sevelamer Carbonate (Renvela -) 800 mg PO TIDCM [facility] Last Admin: 06/11/18 14:19 Dose: Not Given - Objective Vital Signs: Vital Signs Temperature 97.6 F 06/11/18 13:10 Pulse Rate 52 L 06/11/18 14:35 Respiratory Rate 18 06/11/18 14:35 Blood Pressure 116/69 06/11/18 14:35 O2 Sat by Pulse Oximetry (%) 100 06/11/18 09:00 Constitutional: Yes: Calm Eyes: Yes: Conjunctiva Clear HENT: Yes: Atraumatic Cardiovascular: Yes: S1, S2 Respiratory: Yes: On Nasal O2 Gastrointestinal: Yes: Normal Bowel Sounds, Soft Genitourinary: Yes: WNL Musculoskeletal: Yes: WNL Edema: No Integumentary: Yes: WNL Neurological: Yes: Confusion Psychiatric: Yes: Oriented Labs: CBC, BMP 06/11/18 11:30 06/11/18 06:00 INR, PTT INR 0.91 (0.83-1.09) 06/05/18 00:30 Assessment/Plan Current Medications Generic Name Dose Route Start Last Admin Trade Name Freq PRN Reason Stop Dose Admin Amino Acids 30 ml 06/07/18 11:30 06/11/18 10:11 Prosource No Carb Liquid Pkt PO 30 ml DAILY@0800 [facility] Administration Apixaban 2.5 mg 06/09/18 10:00 06/11/18 10:10 Eliquis - PO 2.5 mg BID [facility] Administration Calcium Acetate 1,334 mg 06/09/18 17:30 06/11/18 14:18 Phoslo - PO 1,334 mg TIDCM [facility] Administration Guaifenesin 600 mg 06/05/18 10:00 06/11/18 10:10 Mucinex - PO 600 mg BID [facility] Administration Piperacillin Sod/Tazobactam 50 mls @ 100 mls/hr 06/05/18 18:00 06/11/18 10:09 Sod 2.25 gm/ Dextrose IVPB 100 mls/hr Q8H-IV [facility] Administration Protocol Insulin Aspart 1 vial 06/05/18 07:00 06/11/18 11:38 Novolog Vial Sliding Scale - SQ 8 units ACHS [facility] Administration Protocol Isosorbide Mononitrate 30 mg 06/10/18 15:05 Imdur - PO DAILY [facility] Levalbuterol HCl 0.31 mg 06/09/18 20:00 06/11/18 14:29 Xopenex IH 0.31 mg RTID [facility] Administration Methylprednisolone Sodium Succinate 30 mg 06/09/18 14:54 06/11/18 10:09 Solu-Medrol - IVPUSH 30 mg BID [facility] Administration Metoprolol Tartrate 75 mg 06/10/18 22:00 06/11/18 06:30 Lopressor - PO Not Given TID [facility] Olanzapine 5 mg 06/05/18 10:00 06/11/18 10:10 Zyprexa - PO 5 mg BID [facility] Administration Rosuvastatin Calcium 10 mg 06/05/18 22:00 06/10/18 22:00 Crestor - PO 10 mg HS [facility] Administration Fluticasone/Salmeterol 1 puff 06/05/18 10:00 06/11/18 10:11 Advair 100mcg/50mcg - IH 1 puff BID [facility] Administration Sevelamer Carbonate 800 mg 06/10/18 12:00 06/11/18 14:19 Renvela - PO Not Given TIDCM [facility] Impression 1. ESRD 2. HTN 3. HLD 4. COPD 5. DM 6. pos heb b core 7. confusion with altered mental status 8. anemia 9. a-fib Plan - pt tolerated HD today - monitor phos levels - will need better glucose control - renal diet - bipap as needed
--- NOTE | 2018-06-11 17:20 | PN ---
Teaching Attending Note Name of Resident: Xin Barrera ATTENDING PHYSICIAN STATEMENT I saw and evaluated the patient. I reviewed the resident's note and discussed the case with the resident. I agree with the resident's findings and plan as documented. SUBJECTIVE: Patient is having dialysis, continues to have afib with rvr. other kong no chest pain or palpitations. OBJECTIVE: Vital Signs Temperature 97.6 F 06/11/18 14:55 Pulse Rate 124 H 06/11/18 15:35 Respiratory Rate 20 06/11/18 15:35 Blood Pressure 136/64 06/11/18 15:35 O2 Sat by Pulse Oximetry (%) 100 06/11/18 09:00 GENERAL: The patient is awake, alert, and fully oriented, in no acute distress. HEAD: NCAT, EYES: PERRL, EOMI ENT: moist mucous membranes. NECK: Supple, No JVD LUNGS: Diminished breath sounds at the bases, no wheezes, no crackles HEART: RRR, S1, S2 without murmur ABDOMEN: Soft, NT, ND, positive for BS, no guarding EXTREMITIES: No edema. LUE Fistula with palpable thrill and audible bruit NEUROLOGICAL: Cranial nerves II through XII grossly intact. Normal speech. SKIN: Warm, dry. CBCD WBC 11.8 K/mm3 (4.0-10.0) H 06/11/18 11:30 RBC 4.30 M/mm3 (3.60-5.2) 06/11/18 11:30 Hgb 11.7 GM/dL (10.7-15.3) 06/11/18 11:30 Hct 36.1 % (32.4-45.2) 06/11/18 11:30 MCV 84.1 fl (80-96) 06/11/18 11:30 MCHC 32.4 g/dl (32.0-36.0) 06/11/18 11:30 RDW 14.9 % (11.6-15.6) 06/11/18 11:30 Plt Count 220 K/MM3 (134-434) 06/11/18 11:30 MPV 9.9 fl (7.5-11.1) 06/11/18 11:30 CMP Sodium 129 mmol/L (136-145) L 06/11/18 06:00 Potassium 4.8 mmol/L (3.5-5.1) 06/11/18 06:00 Chloride 89 mmol/L (98-107) L 06/11/18 06:00 Carbon Dioxide 26 mmol/L (21-32) 06/11/18 06:00 Anion Gap 14 MMOL/L (8-16) 06/11/18 06:00 BUN 121 mg/dL (7-18) H* 06/11/18 06:00 Creatinine 9.3 mg/dL (0.55-1.3) H* 06/11/18 06:00 Creat Clearance w eGFR 3.99 (>60) 06/11/18 06:00 Random Glucose 324 mg/dL (74-106) H* 06/11/18 06:00 Calcium 7.6 mg/dL (8.5-10.1) L 06/11/18 06:00 Total Bilirubin 1.1 mg/dL (0.2-1) H 06/11/18 06:00 AST 6 U/L (15-37) L 06/11/18 06:00 ALT 15 U/L (13-61) 06/11/18 06:00 Alkaline Phosphatase 47 U/L (45-117) 06/11/18 06:00 Total Protein 6.1 g/dl (6.4-8.2) L 06/11/18 06:00 Albumin 2.6 g/dl (3.4-5.0) L 06/11/18 06:00 CARDIAC ENZYMES Creatine Kinase 50 U/L (26-192) 06/05/18 00:30 Troponin I < 0.02 ng/ml (0.00-0.05) 06/05/18 10:34 Current Medications Generic Name Dose Route Start Last Admin Trade Name Freq PRN Reason Stop Dose Admin Amino Acids 30 ml 06/07/18 11:30 06/11/18 10:11 Prosource No Carb Liquid Pkt PO 30 ml DAILY@0800 [facility] Administration Apixaban 2.5 mg 06/09/18 10:00 06/11/18 10:10 Eliquis - PO 2.5 mg BID [facility] Administration Calcium Acetate 1,334 mg 06/09/18 17:30 06/11/18 14:18 Phoslo - PO 1,334 mg TIDCM [facility] Administration Guaifenesin 600 mg 06/05/18 10:00 06/11/18 10:10 Mucinex - PO 600 mg BID [facility] Administration Piperacillin Sod/Tazobactam 50 mls @ 100 mls/hr 06/05/18 18:00 06/11/18 10:09 Sod 2.25 gm/ Dextrose IVPB 100 mls/hr Q8H-IV [facility] Administration Protocol Insulin Aspart 1 vial 06/05/18 07:00 06/11/18 11:38 Novolog Vial Sliding Scale - SQ 8 units ACHS [facility] Administration Protocol Isosorbide Mononitrate 30 mg 06/10/18 15:05 Imdur - PO DAILY [facility] Levalbuterol HCl 0.31 mg 06/09/18 20:00 06/11/18 14:29 Xopenex IH 0.31 mg RTID [facility] Administration Methylprednisolone Sodium Succinate 30 mg 06/09/18 14:54 06/11/18 10:09 Solu-Medrol - IVPUSH 30 mg BID [facility] Administration Metoprolol Tartrate 75 mg 06/10/18 22:00 06/11/18 15:47 Lopressor - PO 75 mg TID [facility] Administration Olanzapine 5 mg 06/05/18 10:00 06/11/18 10:10 Zyprexa - PO 5 mg BID [facility] Administration Rosuvastatin Calcium 10 mg 06/05/18 22:00 06/10/18 22:00 Crestor - PO 10 mg HS [facility] Administration Fluticasone/Salmeterol 1 puff 06/05/18 10:00 06/11/18 10:11 Advair 100mcg/50mcg - IH 1 puff BID [facility] Administration Sevelamer Carbonate 800 mg 06/10/18 12:00 06/11/18 14:19 Renvela - PO Not Given TIDCM [facility] Home Medications Medication Instructions Recorded Albuterol Sulfate Inhaler - 2 inh PO Q6H 05/27/18 [Ventolin HFA Inhaler -] Amlodipine Besylate 10 mg PO HS 05/27/18 Isosorbide Mononitrate [Imdur -] 60 mg PO DAILY 05/27/18 Losartan Potassium 50 mg PO DAILY 05/27/18 Metoprolol Tartrate 50 mg PO BID 05/27/18 Rosuvastatin [Crestor -] 20 mg PO HS 05/27/18 Salmeterol/Fluticasone [Advair 1 inh PO BID 05/27/18 100Mcg/50Mcg -] Sevelamer Carbonate [Renvela -] 800 mg PO TID 05/27/18 Olanzapine [Zyprexa -] 5 mg PO BID #60 tablet 06/03/18 ASSESSMENT AND PLAN: Patient is a 87 y/o lady with PMHx of ESRD on HD MWF, COPD on home O2, GERD, HTN, HLP, DM, who presented with SOB and productive cough. She was found to have RLL PNA # New onset A fib with RVR ( rate of 124) will increase lopresor to 75mg tid, resume imdur 30mg from home at a lower dose . Had echo on 05/01/18 . no need to reorder. card consult appreciated. # Acute hypoxic respirtory failure due to RLL PNA: continue IV antibiotic Zosyn , on Solu medrol IV continue ## T2DM: on steroids , will add Levemir to sliding scale in am continue SSI. while on steroids # ESRD on HD continue # HTN:as above # Agitation with HD. cont zyprexa. out pt neuropsych eval Code status : full code DVT Px: heparin sq to Rehab possible dc in am.
[2018-06-11] MEDS: ROSUVASTATIN CA 10 MG TABLET (FP) PO SCH (21:32)
[2018-06-12] MEDS ORDERED: PIPERACILLIN/TAZOBACTAM 2.25 GM VIAL IVPB ONE ×3 (01:13→16:45)
[2018-06-12] MEDS ORDERED: DEXTROSE 5%-WATER - 50 ML IVPB ONE ×3 (01:13→16:46)
[2018-06-12] MEDS: PIPERACILLIN/TAZOB 2.25 GM 2.25 GM in DEXTROSE 5%-WATER - 50 ML IVPB SCH ×3 (01:47→17:25)
[2018-06-12 06:40] LABS: ALBUMIN 2.5 g/dl (3.4-5.0); ALK PHOS 44 U/L (45-117); ANION GAP 9 MMOL/L (8-16); BILIRUBIN,TOTAL 0.7 mg/dL (0.2-1); BLOOD UREA NITROGEN 66 mg/dL (7-18); CALCIUM 7.3 mg/dL (8.5-10.1); CHLORIDE 92 mmol/L (98-107); CO2 31 mmol/L (21-32); CREATININE 5.5 mg/dL (0.55-1.3); MAGNESIUM 1.8 mg/dL (1.8-2.4); PHOSPHOROUS 5.9 mg/dL (2.5-4.9); POTASSIUM 4.7 mmol/L (3.5-5.1); SGOT/AST 10 U/L (15-37); SGPT/ALT 16 U/L (13-61); SODIUM 132 mmol/L (136-145); TOT PROT 5.6 g/dl (6.4-8.2)
[2018-06-12 06:42] LABS: GLUCOSE,RANDOM 308 mg/dL (74-106)
[2018-06-12] MEDS: INSULIN SLIDING SCALE (NOVOLOG) 1 VIAL SQ SCH ×4 (06:53→21:21)
[2018-06-12] MEDS ORDERED: INSULIN (LEVEMIR) 100 UNITS/ML UNITS SQ SCH ×2 (07:00→08:04)
[2018-06-12 07:38] LABS: PHOSPHOROUS 8.4 mg/dL (2.5-4.9)
--- NOTE | 2018-06-12 07:58 | PN ---
Teaching Attending Note Name of Resident: Xin Barrera ATTENDING PHYSICIAN STATEMENT I saw and evaluated the patient. I reviewed the resident's note and discussed the case with the resident. I agree with the resident's findings and plan as documented. SUBJECTIVE: Patient is feeling better with no acute distress. no nausea or vomiting. OBJECTIVE: Vital Signs Temperature 97.9 F 06/12/18 02:00 Pulse Rate 85 06/12/18 02:00 Respiratory Rate 20 06/12/18 02:00 Blood Pressure 131/62 06/12/18 02:00 O2 Sat by Pulse Oximetry (%) 98 06/12/18 00:24 GENERAL: The patient is awake, alert, and fully oriented, in no acute distress. HEAD: NCAT, EYES: PERRL, EOMI ENT: moist mucous membranes. NECK: Supple, No JVD LUNGS: Diminished breath sounds at the bases, positive for rhonchi. no crackles HEART: RRR, S1, S2 without murmur ABDOMEN: Soft, NT, ND, positive for BS, no guarding EXTREMITIES: No edema. LUE Fistula with palpable thrill and audible bruit NEUROLOGICAL: Cranial nerves II through XII grossly intact. Normal speech. SKIN: Warm, dry. CBCD WBC 11.8 K/mm3 (4.0-10.0) H 06/11/18 11:30 RBC 4.30 M/mm3 (3.60-5.2) 06/11/18 11:30 Hgb 11.7 GM/dL (10.7-15.3) 06/11/18 11:30 Hct 36.1 % (32.4-45.2) 06/11/18 11:30 MCV 84.1 fl (80-96) 06/11/18 11:30 MCHC 32.4 g/dl (32.0-36.0) 06/11/18 11:30 RDW 14.9 % (11.6-15.6) 06/11/18 11:30 Plt Count 220 K/MM3 (134-434) 06/11/18 11:30 MPV 9.9 fl (7.5-11.1) 06/11/18 11:30 CMP Sodium 132 mmol/L (136-145) L 06/12/18 05:30 Potassium 4.7 mmol/L (3.5-5.1) 06/12/18 05:30 Chloride 92 mmol/L (98-107) L 06/12/18 05:30 Carbon Dioxide 31 mmol/L (21-32) 06/12/18 05:30 Anion Gap 9 MMOL/L (8-16) 06/12/18 05:30 BUN 66 mg/dL (7-18) H 06/12/18 05:30 Creatinine 5.5 mg/dL (0.55-1.3) H 06/12/18 05:30 Creat Clearance w eGFR 7.32 (>60) 06/12/18 05:30 Random Glucose 308 mg/dL (74-106) H* 06/12/18 05:30 Calcium 7.3 mg/dL (8.5-10.1) L 06/12/18 05:30 Total Bilirubin 0.7 mg/dL (0.2-1) 06/12/18 05:30 AST 10 U/L (15-37) L 06/12/18 05:30 ALT 16 U/L (13-61) 06/12/18 05:30 Alkaline Phosphatase 44 U/L (45-117) L 06/12/18 05:30 Total Protein 5.6 g/dl (6.4-8.2) L 06/12/18 05:30 Albumin 2.5 g/dl (3.4-5.0) L 06/12/18 05:30 CARDIAC ENZYMES Creatine Kinase 50 U/L (26-192) 06/05/18 00:30 Troponin I < 0.02 ng/ml (0.00-0.05) 06/05/18 10:34 Current Medications Generic Name Dose Route Start Last Admin Trade Name Freq PRN Reason Stop Dose Admin Amino Acids 30 ml 06/07/18 11:30 06/11/18 10:11 Prosource No Carb Liquid Pkt PO 30 ml DAILY@0800 [facility] Administration Apixaban 2.5 mg 06/09/18 10:00 06/11/18 21:32 Eliquis - PO 2.5 mg BID [facility] Administration Calcium Acetate 1,334 mg 06/09/18 17:30 06/11/18 17:34 Phoslo - PO 1,334 mg TIDCM [facility] Administration Guaifenesin 600 mg 06/05/18 10:00 06/11/18 21:32 Mucinex - PO 600 mg BID [facility] Administration Piperacillin Sod/Tazobactam 50 mls @ 100 mls/hr 06/05/18 18:00 06/12/18 01:47 Sod 2.25 gm/ Dextrose IVPB 100 mls/hr Q8H-IV [facility] Administration Protocol Insulin Aspart 1 vial 06/05/18 07:00 06/12/18 06:53 Novolog Vial Sliding Scale - SQ 8 units ACHS [facility] Administration Protocol Insulin Detemir 10 units 06/12/18 07:00 06/12/18 06:53 Levemir Vial SQ 10 units DAILY@0700 [facility] Administration Isosorbide Mononitrate 30 mg 06/10/18 15:05 Imdur - PO DAILY [facility] Levalbuterol HCl 0.31 mg 06/09/18 20:00 06/11/18 21:19 Xopenex IH 0.31 mg RTID [facility] Administration Methylprednisolone Sodium Succinate 30 mg 06/09/18 14:54 06/11/18 21:32 Solu-Medrol - IVPUSH 30 mg BID [facility] Administration Metoprolol Succinate 100 mg 06/11/18 22:00 06/11/18 21:32 Toprol Xl - PO 100 mg BID [facility] Administration Olanzapine 5 mg 06/05/18 10:00 06/11/18 21:32 Zyprexa - PO 5 mg BID [facility] Administration Rosuvastatin Calcium 10 mg 06/05/18 22:00 06/11/18 21:32 Crestor - PO 10 mg HS [facility] Administration Fluticasone/Salmeterol 1 puff 06/05/18 10:00 06/11/18 21:33 Advair 100mcg/50mcg - IH 1 puff BID [facility] Administration Sevelamer Carbonate 800 mg 06/10/18 12:00 06/11/18 17:34 Renvela - PO 800 mg TIDCM [facility] Administration Home Medications Medication Instructions Recorded RX: Albuterol Sulfate Inhaler - 2 inh PO Q6H 05/27/18 [Ventolin HFA Inhaler -] RX: Amlodipine Besylate 10 mg PO HS 05/27/18 RX: Isosorbide Mononitrate [Imdur 60 mg PO DAILY 05/27/18 -] RX: Losartan Potassium 50 mg PO DAILY 05/27/18 RX: Metoprolol Tartrate 50 mg PO BID 05/27/18 RX: Rosuvastatin [Crestor -] 20 mg PO HS 05/27/18 RX: Salmeterol/Fluticasone [Advair 1 inh PO BID 05/27/18 100Mcg/50Mcg -] RX: Sevelamer Carbonate [Renvela -] 800 mg PO TID 05/27/18 RX: Olanzapine [Zyprexa -] 5 mg PO BID #60 tablet 06/03/18 ASSESSMENT AND PLAN: Patient is a 87 y/o lady with PMHx of ESRD on HD MWF, COPD on home O2, GERD, HTN, HLP, DM, who presented with SOB and productive cough. She was found to have RLL PNA # New onset A fib , rate is controlled now (85), increased to Toprol Xl 100mg po bid will continue , resume imdur 30mg from home at a lower dose . Had echo on 05/01/18 . no need to reorder. card consult appreciated. # Acute hypoxic respiratory failure due to RLL PNA/ESRD on Dialysis: continue IV antibiotic Zosyn , will switch to oral Prednisone from Solu medrol IV 30mg BID to 12 day prednisone taper. # T2DM: on steroids, elevated due to steroid # ESRD on HD continue # HTN:as above # Agitation with HD. cont zyprexa. out pt neuropsych eval Code status : full code DVT Px: heparin sq to Rehab possible in am.
[2018-06-12] MEDS: LEVALBUTEROL HCL 0.31 MG/3 ML VIAL.NEB IH SCH ×3 (08:17→21:12)
[2018-06-12] MEDS ORDERED: PT OWN MED DRAWER 7, Y5N ONE ×2 (09:31→19:32)
[2018-06-12] MEDS: SEVELAMER CARBONATE 800 MG TAB (FP) PO SCH ×3 (09:41→17:25)
[2018-06-12] MEDS: predniSONE 10 MG TABLET (UD) PO SCH (09:41)
[2018-06-12] MEDS: APIXABAN 2.5 MG TABLET PO SCH ×2 (09:41→21:21)
[2018-06-12] MEDS: CALCIUM ACETATE 667 MG CAPSULE (FP) PO SCH ×3 (09:41→17:25)
[2018-06-12] MEDS: ISOSORBIDE MONONITRATE 30 MG TAB.SR.24H (FP) PO SCH (09:41)
[2018-06-12] MEDS: OLANZapine 5 MG TABLET PO SCH ×2 (09:41→21:21)
[2018-06-12] MEDS: guaiFENesin 600 MG TABLET.ER (FP) PO SCH ×2 (09:41→21:26)
[2018-06-12] MEDS: AMINO ACIDS/PROTEIN HYDROLYS 30 ML LIQUID.PKT PO SCH (09:42)
[2018-06-12] MEDS: FLUTICASONE/SALMETEROL 100 MCG/50 MCG DISKUS IH SCH ×2 (09:51→21:25)
--- NOTE | 2018-06-12 11:23 | PN ---
Progress Note, Physician Chief Complaint: Pt alert; lying in bed; breathing is regular, not labored or tachypneic. History of Present Illness: 88Y black woman (inessa Garcia) with h/o ESRD on hemodialysis (normally is MWF but recently was admitted and was on /Fri schedule, last tx was this , next scheduled treatment is this Fri), COPD (on home O2 2 LPM), HTN, NIDDM, and diastolic dysfunction who returns to [facility] with continued (and now worsening) SOB similar to that which she had on recent admission. She was discharged on 06/03 after admission for delirium, and her daughter states that she became SOB during the admission and this worsened significantly just after she returned home. She has additionally had a wet-sounding cough and began to tire out this evening, which prompted them to come back to the hospital. The daughter needed to give her Lasix 20 mg which they had a stock of at home (but patient does not regularly take this). No f/c/n/v/d/c, dysuria, chest pain, abdominal pain, swelling, etc. Patient is DNR (no chest compressions) but she is not DNI ( family states she would want intubation if necessary). Normal stress Lexiscan MIBI 05/2018. Normla LVEF on 05/2018 ECHO. - Current Medication List Current Medications: Active Medications Amino Acids (Prosource No Carb Liquid Pkt) 30 ml PO DAILY@0800 [facility] Last Admin: 06/12/18 09:42 Dose: 30 ml Apixaban (Eliquis -) 2.5 mg PO BID [facility] Last Admin: 06/12/18 09:41 Dose: 2.5 mg Calcium Acetate (Phoslo -) 1,334 mg PO TIDCM [facility] Last Admin: 06/12/18 09:41 Dose: 1,334 mg Guaifenesin (Mucinex -) 600 mg PO BID [facility] Last Admin: 06/12/18 09:41 Dose: 600 mg Piperacillin Sod/Tazobactam (Sod 2.25 gm/ Dextrose) 50 mls @ 100 mls/hr IVPB Q8H-IV [facility]; Protocol Last Admin: 06/12/18 09:42 Dose: 100 mls/hr Insulin Aspart (Novolog Vial Sliding Scale -) 1 vial SQ ACHS [facility]; Protocol Last Admin: 06/12/18 06:53 Dose: 8 units Insulin Detemir (Levemir Vial) 20 units SQ DAILY@0700 [facility] Isosorbide Mononitrate (Imdur -) 30 mg PO DAILY [facility] Last Admin: 06/12/18 09:41 Dose: 30 mg Levalbuterol HCl (Xopenex) 0.31 mg IH RTID [facility] Last Admin: 06/12/18 08:17 Dose: 0.31 mg Olanzapine (Zyprexa -) 5 mg PO BID [facility] Last Admin: 06/12/18 09:41 Dose: 5 mg Prednisone (Deltasone -) 30 mg PO DAILY [facility] Last Admin: 06/12/18 09:41 Dose: 30 mg Rosuvastatin Calcium (Crestor -) 10 mg PO HS [facility] Last Admin: 06/11/18 21:32 Dose: 10 mg Fluticasone/Salmeterol (Advair 100mcg/50mcg -) 1 puff IH BID [facility] Last Admin: 06/12/18 09:51 Dose: 1 puff Sevelamer Carbonate (Renvela -) 800 mg PO TIDCM [facility] Last Admin: 06/12/18 09:41 Dose: 800 mg - Objective Vital Signs: Vital Signs Temperature 98.2 F 06/12/18 10:00 Pulse Rate 92 H 06/12/18 10:00 Respiratory Rate 20 06/12/18 10:00 Blood Pressure 138/64 06/12/18 10:00 O2 Sat by Pulse Oximetry (%) 98 06/12/18 09:00 Constitutional: Yes: Thin Eyes: Yes: WNL HENT: Yes: WNL Neck: Yes: WNL Cardiovascular: Yes: S1, S2 Respiratory: Yes: Regular Gastrointestinal: Yes: Soft ...Rectal Exam: Yes: Deferred Genitourinary: No: Anuria Breast(s): Yes: WNL Musculoskeletal: Yes: Muscle Weakness Extremities: Yes: Cool Edema: No Peripheral Pulses WNL: Yes Integumentary: Yes: WNL Neurological: Yes: Alert, Weakness Psychiatric: Yes: Alert Labs: CBC, BMP 06/11/18 11:30 06/12/18 05:30 INR, PTT INR 0.91 (0.83-1.09) 06/05/18 00:30 Abnormal Lab Results 06/11/18 06/11/18 06/12/18 06:00 11:30 05:30 WBC 11.8 H Absolute Neuts (auto) 9.9 H Sodium 129 L 132 L Chloride 89 L 92 L BUN 121 H* 66 H Creatinine 9.3 H* 5.5 H Random Glucose 324 H* 308 H* Calcium 7.6 L 7.3 L Phosphorus 8.4 H 5.9 H Total Bilirubin 1.1 H AST 6 L 10 L Alkaline Phosphatase 44 L Total Protein 6.1 L 5.6 L Albumin 2.6 L 2.5 L - ....Imaging Other: Image Reviewed (telemetry: NSR; isolated PVCs, with one run of wide- complex tachycardia yesterday early evening) Problem List - Problems (1) New onset atrial fibrillation Assessment/Plan: Pt is in sinus tachycardia; had one run of wide-complex tachycardia (AF with wide-complex QRS vs NSVT). O2 sat 96% on 2 L NC O2. Metoprolol had been held yesterday morning; continue around the clock now. Maintain K 4-4.5, Mg 2-2.4. On apixaban for anticoagulation. Andemia, pain, anemia, volume status, sepsis, respiratory distress are all among the potential contributing factors to the rapid sinus rate. Normal Stress Lexicscan MIBI 05/2018. Normal LVEF on ECHO. Code(s): I48.91 - UNSPECIFIED ATRIAL FIBRILLATION (2) Shortness of breath Code(s): R06.02 - SHORTNESS OF BREATH (3) ESRD (end stage renal disease) on dialysis Assessment/Plan: hemodialysis per electrolysis operator. Code(s): N18.6 - END STAGE RENAL DISEASE; Z99.2 - DEPENDENCE ON RENAL DIALYSIS (4) Acute on chronic diastolic (congestive) heart failure Assessment/Plan: On metoprolol. hemodialysis is aiding volume control, electrolyte imbalance. F/u BUn/Cr, electrolytes, Is and Os, and daily weight. Code(s): I50.33 - ACUTE ON CHRONIC DIASTOLIC (CONGESTIVE) HEART FAILURE (5) Hypertension Assessment/Plan: On metoprolol Code(s): I10 - ESSENTIAL (PRIMARY) HYPERTENSION Qualifiers: Hypertension type: essential hypertension Qualified Code(s): I10 - Essential (primary) hypertension
--- NOTE | 2018-06-12 14:26 | PN ---
Progress Note, Physician History of Present Illness: PULMONARY ALERT,NO DISTRESS,OOB-CHAIR,-SOB - Current Medication List Current Medications: Active Medications Amino Acids (Prosource No Carb Liquid Pkt) 30 ml PO DAILY@0800 [facility] Last Admin: 06/12/18 09:42 Dose: 30 ml Apixaban (Eliquis -) 2.5 mg PO BID [facility] Last Admin: 06/12/18 09:41 Dose: 2.5 mg Calcium Acetate (Phoslo -) 1,334 mg PO TIDCM [facility] Last Admin: 06/12/18 12:14 Dose: 1,334 mg Guaifenesin (Mucinex -) 600 mg PO BID [facility] Last Admin: 06/12/18 09:41 Dose: 600 mg Piperacillin Sod/Tazobactam (Sod 2.25 gm/ Dextrose) 50 mls @ 100 mls/hr IVPB Q8H-IV [facility]; Protocol Last Admin: 06/12/18 09:42 Dose: 100 mls/hr Insulin Aspart (Novolog Vial Sliding Scale -) 1 vial SQ ACHS [facility]; Protocol Last Admin: 06/12/18 12:09 Dose: 2 units Insulin Detemir (Levemir Vial) 20 units SQ DAILY@0700 [facility] Isosorbide Mononitrate (Imdur -) 30 mg PO DAILY [facility] Last Admin: 06/12/18 09:41 Dose: 30 mg Levalbuterol HCl (Xopenex) 0.31 mg IH RTID [facility] Last Admin: 06/12/18 08:17 Dose: 0.31 mg Olanzapine (Zyprexa -) 5 mg PO BID [facility] Last Admin: 06/12/18 09:41 Dose: 5 mg Prednisone (Deltasone -) 30 mg PO DAILY [facility] Last Admin: 06/12/18 09:41 Dose: 30 mg Rosuvastatin Calcium (Crestor -) 10 mg PO HS [facility] Last Admin: 06/11/18 21:32 Dose: 10 mg Fluticasone/Salmeterol (Advair 100mcg/50mcg -) 1 puff IH BID [facility] Last Admin: 06/12/18 09:51 Dose: 1 puff Sevelamer Carbonate (Renvela -) 800 mg PO TIDCM [facility] Last Admin: 06/12/18 12:16 Dose: 800 mg - Objective Vital Signs: Vital Signs Temperature 98.2 F 06/12/18 10:00 Pulse Rate 92 H 06/12/18 10:00 Respiratory Rate 20 06/12/18 10:00 Blood Pressure 138/64 06/12/18 10:00 O2 Sat by Pulse Oximetry (%) 98 06/12/18 09:00 Constitutional: Yes: Calm, Thin Eyes: Yes: WNL HENT: Yes: WNL Neck: Yes: WNL Cardiovascular: Yes: Pulse Irregular, S1, S2 Respiratory: Yes: CTA Bilaterally Gastrointestinal: Yes: Normal Bowel Sounds, Soft Extremities: Yes: WNL Edema: No Labs: CBC, BMP 06/11/18 11:30 06/12/18 05:30 INR, PTT INR 0.91 (0.83-1.09) 06/05/18 00:30 Problem List - Problems (1) Acute on chronic respiratory failure with hypoxia and hypercapnia Code(s): J96.21 - ACUTE AND CHRONIC RESPIRATORY FAILURE WITH HYPOXIA; J96.22 - ACUTE AND CHRONIC RESPIRATORY FAILURE WITH HYPERCAPNIA Assessment/Plan Problem List - Problems (1) Acute respiratory failure Code(s): J96.00 - ACUTE RESPIRATORY FAILURE, UNSP W HYPOXIA OR HYPERCAPNIA (2) Shortness of breath Code(s): R06.02 - SHORTNESS OF BREATH (3) Dyspnea Code(s): R06.00 - DYSPNEA, UNSPECIFIED Qualifiers: Dyspnea type: shortness of breath Qualified Code(s): R06.02 - Shortness of breath; R06.00 - Dyspnea, unspecified; R06.01 - Orthopnea (4) ESRD (end stage renal disease) on dialysis Code(s): N18.6 - END STAGE RENAL DISEASE; Z99.2 - DEPENDENCE ON RENAL DIALYSIS (5) History of end stage renal disease Code(s): Z87.448 - PERSONAL HISTORY OF OTHER DISEASES OF URINARY SYSTEM (6) COPD exacerbation Code(s): J44.1 - CHRONIC OBSTRUCTIVE PULMONARY DISEASE W (ACUTE) EXACERBATION (7) Diabetes Code(s): E11.9 - TYPE 2 DIABETES MELLITUS WITHOUT COMPLICATIONS Qualifiers: Diabetes mellitus type: type 2 Diabetes mellitus retirement insulin use: without buttermaker continuous churn use Diabetes mellitus complication status: with kidney complications Diabetes mellitus complication detail: with chronic kidney disease Chronic kidney disease stage: on chronic dialysis Qualified Code(s) : E11.22 - Type 2 diabetes mellitus with diabetic chronic kidney disease; N18.6 - End stage renal disease; Z99.2 - Dependence on renal dialysis (8) Hypercholesterolemia Code(s): E78.00 - PURE HYPERCHOLESTEROLEMIA, UNSPECIFIED (9) Hypertension Code(s): I10 - ESSENTIAL (PRIMARY) HYPERTENSION Qualifiers: Hypertension type: essential hypertension Qualified Code(s): I10 - Essential (primary) hypertension (10) Pneumonia Code(s): J18.9 - PNEUMONIA, UNSPECIFIED ORGANISM Qualifiers: Laterality: bilateral Lung location: lower lobe of lung 11 .NEW ONSET AFIB Assessment/Plan nasal o2 rate control lopressor ac prednisone BD TX standing and prn hd as per renal DR SANABRIA
--- NOTE | 2018-06-12 15:50 | PN ---
Physical Exam: SUBJECTIVE: Patient seen and examined this AM. No new complaints. No acute over night events as per nursing staff. OBJECTIVE: Vital Signs Period Temp Pulse Resp BP Sys/Betancourt Pulse Ox Last 24 Hr 97.8 F-98.2 F 85-124 20-20 117-138/62-69 98-100 GENERAL: The patient is awake, alert, and fully oriented, in no acute distress. HEAD: NCAT EYES: PERRL, EOMI ENT: moist mucous membranes. NECK: Supple, No JVD LUNGS: Diminished breath sounds at the bases, no wheezes, no crackles HEART: RRR S1, S2 without murmur ABDOMEN: Soft, nontender, nondistended, + bowel sounds, no guarding EXTREMITIES: No edema. LUE Fistula with palpable thrill and audible bruit NEUROLOGICAL: Cranial nerves II through XII grossly intact. Normal speech. SKIN: Warm, dry Laboratory Results - last 24 hr 06/11/18 06/11/18 06/11/18 06:00 16:34 21:31 Sodium 129 L Potassium 4.8 Chloride 89 L Carbon Dioxide 26 Anion Gap 14 BUN 121 H* Creatinine 9.3 H* Creat Clearance w eGFR 3.99 POC Glucometer 329 306 Random Glucose 324 H* Calcium 7.6 L Phosphorus 8.4 H Magnesium 2.0 Total Bilirubin 1.1 H AST 6 L ALT 15 Alkaline Phosphatase 47 Total Protein 6.1 L Albumin 2.6 L 06/12/18 06/12/18 06/12/18 05:08 05:30 11:42 Sodium 132 L Potassium 4.7 Chloride 92 L Carbon Dioxide 31 Anion Gap 9 BUN 66 H Creatinine 5.5 H Creat Clearance w eGFR 7.32 POC Glucometer 305 167 Random Glucose 308 H* Calcium 7.3 L Phosphorus 5.9 H Magnesium 1.8 Total Bilirubin 0.7 AST 10 L ALT 16 Alkaline Phosphatase 44 L Total Protein 5.6 L Albumin 2.5 L Microbiology 06/05/18 08:45 Blood - Peripheral Venous Blood Culture - Final NO GROWTH AFTER 5 DAYS INCUBATION 06/05/18 17:19 Blood - Peripheral Venous Blood Culture - Final NO GROWTH AFTER 5 DAYS INCUBATION 06/05/18 06:30 Urine For Antigen Detection Legionella Antigen - Final 06/05/18 06:30 Urine For Antigen Detection Streptococcus pneumoniae Antigen (M - Final Active Medications Amino Acids (Prosource No Carb Liquid Pkt) 30 ml PO DAILY@0800 [facility] Last Admin: 06/12/18 09:42 Dose: 30 ml Apixaban (Eliquis -) 2.5 mg PO BID [facility] Last Admin: 06/12/18 09:41 Dose: 2.5 mg Calcium Acetate (Phoslo -) 1,334 mg PO TIDCM [facility] Last Admin: 06/12/18 12:14 Dose: 1,334 mg Guaifenesin (Mucinex -) 600 mg PO BID [facility] Last Admin: 06/12/18 09:41 Dose: 600 mg Piperacillin Sod/Tazobactam (Sod 2.25 gm/ Dextrose) 50 mls @ 100 mls/hr IVPB Q8H-IV [facility]; Protocol Last Admin: 06/12/18 09:42 Dose: 100 mls/hr Insulin Aspart (Novolog Vial Sliding Scale -) 1 vial SQ ACHS [facility]; Protocol Last Admin: 06/12/18 12:09 Dose: 2 units Insulin Detemir (Levemir Vial) 20 units SQ DAILY@0700 [facility] Isosorbide Mononitrate (Imdur -) 30 mg PO DAILY [facility] Last Admin: 06/12/18 09:41 Dose: 30 mg Levalbuterol HCl (Xopenex) 0.31 mg IH RTID [facility] Last Admin: 06/12/18 15:28 Dose: Not Given Olanzapine (Zyprexa -) 5 mg PO BID [facility] Last Admin: 06/12/18 09:41 Dose: 5 mg Prednisone (Deltasone -) 30 mg PO DAILY [facility] Last Admin: 06/12/18 09:41 Dose: 30 mg Rosuvastatin Calcium (Crestor -) 10 mg PO HS [facility] Last Admin: 06/11/18 21:32 Dose: 10 mg Fluticasone/Salmeterol (Advair 100mcg/50mcg -) 1 puff IH BID [facility] Last Admin: 06/12/18 09:51 Dose: 1 puff Sevelamer Carbonate (Renvela -) 800 mg PO TIDCM [facility] Last Admin: 06/12/18 12:16 Dose: 800 mg IMAGING: -CXR: Single AP view of the chest is submitted. Since the prior study of 2018 there are progressive bibasilar infiltrates. -CXR: AP view of the chest is been submitted. Since 06/05/2018, there are progressive bilateral effusions with basilar atelectasis or infiltrate as well as a large heart, sclerotic knob and chin artifact. Correlation recommended. -EKG: Sinus with occasional PVCs, VR 89, QTc 416 ASSESSMENT/PLAN: 88 y/o F with PMHx of ESRD on HD (M/W/F), COPD on 2L Home O2, HTN, NIDDM, Diastolic dysfunction was admitted for RLL PNA #Acute hypoxic respiratory failure -Likely due to RLL PNA -Piperacillin/Tazobactam 2.25gm IV Q8h (day 7) -Bronchodilators--Levalbuterol 0.31mg TID -Prednisone 30 mg PO Daily -Mucinix 600mg BID -Pulmonary consulted, appreciate recs -ID (Dr. Morales) Consulted -NIPPV (12/05//40%) HS PRN -Supplemental O2 to maintain SpO2 > 90% #AFib with RVR -HR Remains above goal -Metoprolol Succinate 100mg BID -Apixaban 2.5mg PO BID #ESRD on HD (//) -Dr Reis consulted, appreciate rec's #COPD--O2 Dependent (not in exacerbation) -Continue home dose Fluticasone/Salmeterol 100mcg/50mcg 1 puff BID -Additional Bronchodilator therapy, ABx, and Steroids as per above #HTN -Isosorbide Mononitrate 30mg daily #HLD -Continue home dose Rosuvastatin 10 mg PO HS #DM -ISS BGM ACHS -Detemir 20u AM -A1c 5.6% #?Psychosis/Agitation -Continue home dose Olanzapine 5mg PO BID #FEN -No standing fluids -Lytes WNL -Renal diet #PPx -DVT: Apixaban BID Visit type - Emergency Visit Emergency Visit: Yes ED Registration Date: 06/05/18 Care time: The patient presented to the Emergency Department on the above date and was hospitalized for further evaluation of their emergent condition. - New Patient This patient is new to me today: No - Critical Care Critical Care patient: No - Discharge Referral Referred to [facility] No
[2018-06-12] MEDS ORDERED: SODIUM CHLORIDE 250 ML IV PRN (16:05)
--- NOTE | 2018-06-12 16:05 | PN ---
Progress Note, Physician History of Present Illness: Pt seen and examined at bedside. She is awake and appears comfortable. - Current Medication List Current Medications: Active Medications Amino Acids (Prosource No Carb Liquid Pkt) 30 ml PO DAILY@0800 [facility] Last Admin: 06/12/18 09:42 Dose: 30 ml Apixaban (Eliquis -) 2.5 mg PO BID [facility] Last Admin: 06/12/18 09:41 Dose: 2.5 mg Calcium Acetate (Phoslo -) 1,334 mg PO TIDCM [facility] Last Admin: 06/12/18 12:14 Dose: 1,334 mg Guaifenesin (Mucinex -) 600 mg PO BID [facility] Last Admin: 06/12/18 09:41 Dose: 600 mg Piperacillin Sod/Tazobactam (Sod 2.25 gm/ Dextrose) 50 mls @ 100 mls/hr IVPB Q8H-IV [facility]; Protocol Last Admin: 06/12/18 09:42 Dose: 100 mls/hr Insulin Aspart (Novolog Vial Sliding Scale -) 1 vial SQ ACHS [facility]; Protocol Last Admin: 06/12/18 12:09 Dose: 2 units Insulin Detemir (Levemir Vial) 20 units SQ DAILY@0700 [facility] Isosorbide Mononitrate (Imdur -) 30 mg PO DAILY [facility] Last Admin: 06/12/18 09:41 Dose: 30 mg Levalbuterol HCl (Xopenex) 0.31 mg IH RTID [facility] Last Admin: 06/12/18 15:28 Dose: Not Given Metoprolol Succinate (Toprol Xl -) 100 mg PO BID [facility] Olanzapine (Zyprexa -) 5 mg PO BID [facility] Last Admin: 06/12/18 09:41 Dose: 5 mg Prednisone (Deltasone -) 30 mg PO DAILY [facility] Last Admin: 06/12/18 09:41 Dose: 30 mg Rosuvastatin Calcium (Crestor -) 10 mg PO HS [facility] Last Admin: 06/11/18 21:32 Dose: 10 mg Fluticasone/Salmeterol (Advair 100mcg/50mcg -) 1 puff IH BID [facility] Last Admin: 06/12/18 09:51 Dose: 1 puff Sevelamer Carbonate (Renvela -) 800 mg PO TIDCM [facility] Last Admin: 06/12/18 12:16 Dose: 800 mg - Objective Vital Signs: Vital Signs Temperature 98.2 F 06/12/18 10:00 Pulse Rate 92 H 06/12/18 10:00 Respiratory Rate 20 06/12/18 10:00 Blood Pressure 138/64 06/12/18 10:00 O2 Sat by Pulse Oximetry (%) 98 06/12/18 09:00 Constitutional: Yes: Calm Eyes: Yes: Conjunctiva Clear HENT: Yes: Atraumatic Cardiovascular: Yes: S1, S2 Respiratory: Yes: On Nasal O2 Gastrointestinal: Yes: Soft Genitourinary: Yes: WNL Musculoskeletal: Yes: WNL Edema: No Integumentary: Yes: WNL Neurological: Yes: Confusion Labs: CBC, BMP 06/11/18 11:30 06/12/18 05:30 INR, PTT INR 0.91 (0.83-1.09) 06/05/18 00:30 Assessment/Plan Current Medications Generic Name Dose Route Start Last Admin Trade Name Freq PRN Reason Stop Dose Admin Amino Acids 30 ml 06/07/18 11:30 06/12/18 09:42 Prosource No Carb Liquid Pkt PO 30 ml DAILY@0800 [facility] Administration Apixaban 2.5 mg 06/09/18 10:00 06/12/18 09:41 Eliquis - PO 2.5 mg BID [facility] Administration Calcium Acetate 1,334 mg 06/09/18 17:30 06/12/18 12:14 Phoslo - PO 1,334 mg TIDCM [facility] Administration Guaifenesin 600 mg 06/05/18 10:00 06/12/18 09:41 Mucinex - PO 600 mg BID [facility] Administration Piperacillin Sod/Tazobactam 50 mls @ 100 mls/hr 06/05/18 18:00 06/12/18 09:42 Sod 2.25 gm/ Dextrose IVPB 100 mls/hr Q8H-IV [facility] Administration Protocol Insulin Aspart 1 vial 06/05/18 07:00 06/12/18 12:09 Novolog Vial Sliding Scale - SQ 2 units ACHS [facility] Administration Protocol Insulin Detemir 20 units 06/12/18 08:04 Levemir Vial SQ DAILY@0700 [facility] Isosorbide Mononitrate 30 mg 06/10/18 15:05 06/12/18 09:41 Imdur - PO 30 mg DAILY [facility] Administration Levalbuterol HCl 0.31 mg 06/09/18 20:00 06/12/18 15:28 Xopenex IH Not Given RTID [facility] Metoprolol Succinate 100 mg 06/12/18 22:00 Toprol Xl - PO BID [facility] Olanzapine 5 mg 06/05/18 10:00 06/12/18 09:41 Zyprexa - PO 5 mg BID [facility] Administration Prednisone 30 mg 06/12/18 10:00 06/12/18 09:41 Deltasone - PO 30 mg DAILY [facility] Administration Rosuvastatin Calcium 10 mg 06/05/18 22:00 06/11/18 21:32 Crestor - PO 10 mg HS [facility] Administration Fluticasone/Salmeterol 1 puff 06/05/18 10:00 06/12/18 09:51 Advair 100mcg/50mcg - IH 1 puff BID [facility] Administration Sevelamer Carbonate 800 mg 06/10/18 12:00 06/12/18 12:16 Renvela - PO 800 mg TIDCM [facility] Administration Laboratory Tests 05/28/18 06/11/18 16:00 06:00 Sodium 129 L Potassium 4.8 BUN 121 H* Creatinine 9.3 H* Random Glucose 324 H* Hep Bs Antigen Negative Hep Bs Antibody Reactive Hep B Core Total Ab Positive H Laboratory Tests 06/12/18 05:30 Phosphorus 5.9 H Impression 1. ESRD 2. HTN 3. HLD 4. COPD 5. DM 6. pos heb b core 7. confusion with altered mental status 8. anemia 9. a-fib Plan - HD in am - HD is set up at [facility] for a TTS schedule - pt can be discharged tomorrow after HD from renal standpoint - phos levels improved - will need better glucose control - renal diet - bipap as needed
[2018-06-12] MEDS: ROSUVASTATIN CA 10 MG TABLET (FP) PO SCH (21:21)
[2018-06-13] MEDS ORDERED: PIPERACILLIN/TAZOBACTAM 2.25 GM VIAL IVPB ONE ×2 (01:35→10:45)
[2018-06-13] MEDS ORDERED: DEXTROSE 5%-WATER - 50 ML IVPB ONE ×2 (01:35→10:45)
[2018-06-13] MEDS: PIPERACILLIN/TAZOB 2.25 GM 2.25 GM in DEXTROSE 5%-WATER - 50 ML IVPB SCH ×2 (01:47→11:14)
[2018-06-13] MEDS: INSULIN SLIDING SCALE (NOVOLOG) 1 VIAL SQ SCH ×2 (06:01→12:10)
[2018-06-13 08:21] LABS: ANION GAP 14 MMOL/L (8-16); BLOOD UREA NITROGEN 99 mg/dL (7-18); CHLORIDE 93 mmol/L (98-107); CO2 26 mmol/L (21-32); CREATININE 7.3 mg/dL (0.55-1.3); GLUCOSE,RANDOM 124 mg/dL (74-106); MAGNESIUM 1.6 mg/dL (1.8-2.4); PHOSPHOROUS 6.7 mg/dL (2.5-4.9); POTASSIUM 4.4 mmol/L (3.5-5.1); SODIUM 133 mmol/L (136-145)
[2018-06-13] MEDS: LEVALBUTEROL HCL 0.31 MG/3 ML VIAL.NEB IH SCH (08:40)
[2018-06-13 08:47] LABS: CALCIUM 6.9 mg/dL (8.5-10.1)
[2018-06-13] MEDS: CALCIUM ACETATE 667 MG CAPSULE (FP) PO SCH ×2 (08:55→12:11)
[2018-06-13] MEDS: AMINO ACIDS/PROTEIN HYDROLYS 30 ML LIQUID.PKT PO SCH (08:56)
[2018-06-13] MEDS: SEVELAMER CARBONATE 800 MG TAB (FP) PO SCH ×2 (08:57→12:11)
--- NOTE | 2018-06-13 10:50 | PN ---
Progress Note, Physician Chief Complaint: Coverage for Drs. León and Maxine Being dialyzed this AM Does not appear to be in distress History of Present Illness: Patient was seen and examined. Awake. Chart was reviewed Denies chest pain or SOB Sinus rhythm - Current Medication List Current Medications: Active Medications Amino Acids (Prosource No Carb Liquid Pkt) 30 ml PO DAILY@0800 [facility] Last Admin: 06/13/18 08:56 Dose: Not Given Apixaban (Eliquis -) 2.5 mg PO BID [facility] Last Admin: 06/12/18 21:21 Dose: 2.5 mg Calcium Acetate (Phoslo -) 1,334 mg PO TIDCM [facility] Last Admin: 06/13/18 08:55 Dose: Not Given Guaifenesin (Mucinex -) 600 mg PO BID [facility] Last Admin: 06/12/18 21:26 Dose: 600 mg Piperacillin Sod/Tazobactam (Sod 2.25 gm/ Dextrose) 50 mls @ 100 mls/hr IVPB Q8H-IV [facility]; Protocol Last Admin: 06/13/18 01:47 Dose: 100 mls/hr Sodium Chloride (Normal Saline -) 250 mls @ 3,000 mls/hr IV PRN PRN PRN Reason: Hypotension during Dialysis Stop: 06/13/18 16:05 Insulin Aspart (Novolog Vial Sliding Scale -) 1 vial SQ ACHS [facility]; Protocol Last Admin: 06/13/18 06:01 Dose: Not Given Insulin Detemir (Levemir Vial) 20 units SQ DAILY@0700 [facility] Isosorbide Mononitrate (Imdur -) 30 mg PO DAILY [facility] Last Admin: 06/12/18 09:41 Dose: 30 mg Levalbuterol HCl (Xopenex) 0.31 mg IH RTID [facility] Last Admin: 06/12/18 21:12 Dose: 0.31 mg Metoprolol Succinate (Toprol Xl -) 100 mg PO BID [facility] Last Admin: 06/12/18 21:21 Dose: 100 mg Olanzapine (Zyprexa -) 5 mg PO BID [facility] Last Admin: 06/12/18 21:21 Dose: 5 mg Prednisone (Deltasone -) 30 mg PO DAILY [facility] Last Admin: 06/12/18 09:41 Dose: 30 mg Rosuvastatin Calcium (Crestor -) 10 mg PO HS [facility] Last Admin: 04/12/19 21:21 Dose: 10 mg Fluticasone/Salmeterol (Advair 100mcg/50mcg -) 1 puff IH BID [facility] Last Admin: 06/12/18 21:25 Dose: 1 puff Sevelamer Carbonate (Renvela -) 800 mg PO TIDCM [facility] Last Admin: 06/13/18 08:57 Dose: Not Given - Objective Vital Signs: Vital Signs Temperature 98.5 F 06/13/18 06:55 Pulse Rate 68 06/13/18 10:00 Respiratory Rate 18 06/13/18 10:00 Blood Pressure 115/67 06/13/18 10:00 O2 Sat by Pulse Oximetry (%) 100 06/12/18 21:00 Eyes: Yes: PERRL HENT: Yes: Atraumatic Neck: Yes: Supple Cardiovascular: Yes: Regular Rate and Rhythm, S1, S2 Respiratory: Yes: Diminished Gastrointestinal: Yes: Normal Bowel Sounds, Soft. No: Tenderness Edema: No Labs: CBC, BMP 06/11/18 11:30 06/13/18 07:00 Problem List - Problems (1) Acute on chronic diastolic (congestive) heart failure Code(s): I50.33 - ACUTE ON CHRONIC DIASTOLIC (CONGESTIVE) HEART FAILURE (2) Generalized weakness Code(s): R53.1 - WEAKNESS (3) New onset atrial fibrillation Code(s): I48.91 - UNSPECIFIED ATRIAL FIBRILLATION (4) Shortness of breath Code(s): R06.02 - SHORTNESS OF BREATH (5) ESRD (end stage renal disease) on dialysis Code(s): N18.6 - END STAGE RENAL DISEASE; Z99.2 - DEPENDENCE ON RENAL DIALYSIS (6) Diabetes Code(s): E11.9 - TYPE 2 DIABETES MELLITUS WITHOUT COMPLICATIONS Qualifiers: Diabetes mellitus type: type 2 Diabetes mellitus rn long term care insulin use: without rn long term care use Diabetes mellitus complication status: with kidney complications Diabetes mellitus complication detail: with chronic kidney disease Chronic kidney disease stage: on chronic dialysis Qualified Code(s) : E11.22 - Type 2 diabetes mellitus with diabetic chronic kidney disease; N18.6 - End stage renal disease; Z99.2 - Dependence on renal dialysis (7) Hypercholesterolemia Code(s): E78.00 - PURE HYPERCHOLESTEROLEMIA, UNSPECIFIED (8) Hypertension Code(s): I10 - ESSENTIAL (PRIMARY) HYPERTENSION Qualifiers: Hypertension type: essential hypertension Qualified Code(s): I10 - Essential (primary) hypertension Assessment/Plan 1. PAF currently in sinus rhythm on DOAC 2. ESRD on HD 3. Acute on chronic LV diastolic failure 4. HTN 5. DM 6. COPD PLAN: 1. HD as per Renal service 2. Continue Eliquis 2.5 mg BID 3. Continue Toprol XL 100 mg BID as tolerated 4. Continue Crestor 10 mg QHS 5. Monitor renal function and electrolytes Further supportive care Onesimo Hightower MD
[2018-06-13] MEDS: ISOSORBIDE MONONITRATE 30 MG TAB.SR.24H (FP) PO SCH (11:13)
[2018-06-13] MEDS: predniSONE 10 MG TABLET (UD) PO SCH (11:13)
[2018-06-13] MEDS: APIXABAN 2.5 MG TABLET PO SCH (11:14)
[2018-06-13] MEDS: guaiFENesin 600 MG TABLET.ER (FP) PO SCH (11:14)
[2018-06-13] MEDS: OLANZapine 5 MG TABLET PO SCH (11:15)
--- NOTE | 2018-06-13 11:46 | DS ---
Physical Exam: SUBJECTIVE: Patient seen and examined Patient is doing well with no acute distress, no nausea or vomiting, feeling better today, on chronic oxygen at home. going to rehab. OBJECTIVE: Vital Signs Temperature 98.5 F 06/13/18 06:55 Pulse Rate 92 H 06/13/18 10:20 Respiratory Rate 18 06/13/18 10:20 Blood Pressure 129/78 06/13/18 10:20 O2 Sat by Pulse Oximetry (%) 100 06/12/18 21:00 PHYSICAL EXAM GENERAL: The patient is awake, alert, and fully oriented, in no acute distress. HEAD: NCAT, EYES: PERRL, EOMI ENT: moist mucous membranes. NECK: Supple, No JVD LUNGS: Diminished breath sounds at the bases, otherwise GAE, no wheeze, no crackles HEART: RRR, S1, S2 , MARLINE 2/6 ABDOMEN: Soft, NT, ND, positive for BS, no guarding EXTREMITIES: No edema. LUE Fistula with palpable thrill and audible bruit NEUROLOGICAL: Cranial nerves II through XII grossly intact. Normal speech. SKIN: Warm, dry. LABS Laboratory Results - last 24 hr 06/12/18 06/12/18 06/13/18 16:30 20:48 05:52 Sodium Potassium Chloride Carbon Dioxide Anion Gap BUN Creatinine Creat Clearance w eGFR POC Glucometer 208 237 126 Random Glucose Calcium Phosphorus Magnesium 06/13/18 07:00 Sodium 133 L Potassium 4.4 Chloride 93 L Carbon Dioxide 26 Anion Gap 14 BUN 99 H Creatinine 7.3 H Creat Clearance w eGFR 5.28 POC Glucometer Random Glucose 124 H Calcium 6.9 L* Phosphorus 6.7 H Magnesium 1.6 L CBCD WBC 11.8 K/mm3 (4.0-10.0) H 06/11/18 11:30 RBC 4.30 M/mm3 (3.60-5.2) 06/11/18 11:30 Hgb 11.7 GM/dL (10.7-15.3) 06/11/18 11:30 Hct 36.1 % (32.4-45.2) 06/11/18 11:30 MCV 84.1 fl (80-96) 06/11/18 11:30 MCHC 32.4 g/dl (32.0-36.0) 06/11/18 11:30 RDW 14.9 % (11.6-15.6) 06/11/18 11:30 Plt Count 220 K/MM3 (134-434) 06/11/18 11:30 MPV 9.9 fl (7.5-11.1) 06/11/18 11:30 CMP Sodium 133 mmol/L (136-145) L 06/13/18 07:00 Potassium 4.4 mmol/L (3.5-5.1) 06/13/18 07:00 Chloride 93 mmol/L (98-107) L 06/13/18 07:00 Carbon Dioxide 26 mmol/L (21-32) 06/13/18 07:00 Anion Gap 14 MMOL/L (8-16) 06/13/18 07:00 BUN 99 mg/dL (7-18) H 06/13/18 07:00 Creatinine 7.3 mg/dL (0.55-1.3) H 06/13/18 07:00 Creat Clearance w eGFR 5.28 (>60) 06/13/18 07:00 Random Glucose 124 mg/dL (74-106) H 06/13/18 07:00 Calcium 6.9 mg/dL (8.5-10.1) L* 06/13/18 07:00 Total Bilirubin 0.7 mg/dL (0.2-1) 06/12/18 05:30 AST 10 U/L (15-37) L 06/12/18 05:30 ALT 16 U/L (13-61) 06/12/18 05:30 Alkaline Phosphatase 44 U/L (45-117) L 06/12/18 05:30 Total Protein 5.6 g/dl (6.4-8.2) L 06/12/18 05:30 Albumin 2.5 g/dl (3.4-5.0) L 06/12/18 05:30 CARDIAC ENZYMES Creatine Kinase 50 U/L (26-192) 06/05/18 00:30 Troponin I < 0.02 ng/ml (0.00-0.05) 06/05/18 10:34 Current Medications Generic Name Dose Route Start Last Admin Trade Name Freq PRN Reason Stop Dose Admin Amino Acids 30 ml 06/07/18 11:30 06/13/18 08:56 Prosource No Carb Liquid Pkt PO Not Given DAILY@0800 [facility] Apixaban 2.5 mg 06/09/18 10:00 06/13/18 11:14 Eliquis - PO 2.5 mg BID [facility] Administration Calcium Acetate 1,334 mg 06/09/18 17:30 06/13/18 08:55 Phoslo - PO Not Given TIDCM [facility] Guaifenesin 600 mg 06/05/18 10:00 06/13/18 11:14 Mucinex - PO 600 mg BID [facility] Administration Piperacillin Sod/Tazobactam 50 mls @ 100 mls/hr 06/05/18 18:00 06/13/18 11:14 Sod 2.25 gm/ Dextrose IVPB 100 mls/hr Q8H-IV [facility] Administration Protocol Sodium Chloride 250 mls @ 3,000 mls/hr 06/12/18 16:05 Normal Saline - IV 06/13/18 16:05 PRN PRN Hypotension during Dialysis Insulin Aspart 1 vial 06/05/18 07:00 06/13/18 06:01 Novolog Vial Sliding Scale - SQ Not Given ACHS [facility] Protocol Insulin Detemir 20 units 06/12/18 08:04 06/13/18 11:12 Levemir Vial SQ Not Given DAILY@0700 [facility] Isosorbide Mononitrate 30 mg 06/10/18 15:05 06/13/18 11:13 Imdur - PO 30 mg DAILY [facility] Administration Levalbuterol HCl 0.31 mg 06/09/18 20:00 06/13/18 08:40 Xopenex IH 0.31 mg RTID [facility] Administration Metoprolol Succinate 100 mg 06/12/18 22:00 06/13/18 11:14 Toprol Xl - PO 100 mg BID [facility] Administration Olanzapine 5 mg 06/05/18 10:00 06/13/18 11:15 Zyprexa - PO 5 mg BID [facility] Administration Prednisone 30 mg 06/12/18 10:00 06/13/18 11:13 Deltasone - PO 30 mg DAILY [facility] Administration Rosuvastatin Calcium 10 mg 06/05/18 22:00 06/12/18 21:21 Crestor - PO 10 mg HS [facility] Administration Fluticasone/Salmeterol 1 puff 06/05/18 10:00 06/12/18 21:25 Advair 100mcg/50mcg - IH 1 puff BID [facility] Administration Sevelamer Carbonate 800 mg 06/10/18 12:00 06/13/18 08:57 Renvela - PO Not Given TIDCM [facility] Home Medications Medication Instructions Recorded Albuterol Sulfate Inhaler - 2 inh PO Q6H 05/27/18 [Ventolin HFA Inhaler -] Amlodipine Besylate 10 mg PO HS 05/27/18 Isosorbide Mononitrate [Imdur -] 60 mg PO DAILY 05/27/18 Losartan Potassium 50 mg PO DAILY 05/27/18 Metoprolol Tartrate 50 mg PO BID 05/27/18 Rosuvastatin [Crestor -] 20 mg PO HS 05/27/18 Salmeterol/Fluticasone [Advair 1 inh PO BID 05/27/18 100Mcg/50Mcg -] Sevelamer Carbonate [Renvela -] 800 mg PO TID 05/27/18 Olanzapine [Zyprexa -] 5 mg PO BID #60 tablet 06/03/18 HOSPITAL COURSE: Date of Admission:06/05/18 Date of Discharge: 06/13/18 Patient is a 88 y/o F with PMHx of ESRD on HD (M/W/F) with , COPD on 2L Home O2, HTN, NIDDM, Diastolic dysfunction was admitted for RLL PNA. Patient completed a course of IV ABx and steroids during her stay. She used Bipap PRN to assist in the work of breathing. She was found to be in AFib with RVR during her stay for which she was started on Anticoagulation and Rate control. She continued hemodialysis during her stay and her home dose medications were optimized. Pulm, ID, Cardio, and Nephro were consulted. She remained Afebrile without any signs of infection: Her SOB and cough improved. Patient is going to SNF today with strict instructions for medication compliance and physician follow up. # New onset A fib , rate is controlled now on Toprol Xl 100mg po bid will continue , resume imdur 30mg from home at a lower dose . Had echo on 05/01/18 . no need to reorder. card consult appreciated. # Acute hypoxic respiratory failure due to RLL PNA/ESRD on Dialysis: will switch to 4 more days of Augmentin 500mg po tid as per ID's recommendation, from IV antibiotic Zosyn , continue oral Prednisone from Solu medrol IV 30mg BID to 12 day prednisone taper. # T2DM: on steroids, elevated due to steroid, on levemir continue, needs to be reevaluated once off the steroid, to readjust the Levemir dose. # ESRD on HD continue # HTN:as above # Agitation with HD. cont zyprexa. out pt neuropsych eval Code status : full code DVT Px: heparin sq to Rehab today Minutes to complete discharge: 35 Discharge Summary Reason For Visit: DYSPNEA,WEAKNESS Current Active Problems Acute on chronic diastolic (congestive) heart failure (Acute) Acute on chronic respiratory failure with hypoxia and hypercapnia (Acute) Acute respiratory failure (Acute) Generalized weakness (Acute) New onset atrial fibrillation (Acute) Shortness of breath (Acute) Condition: Improved - Instructions Diet, Activity, Other Instructions: You came to the hospital after having a experiencing shortness of breath from pneumonia. You were additionally found to be in Atrial fibrillation. Medication Changes: 1. You are being started on Apixiban (Eliquis)--This is a blood thinner and can cause bleeding--Please watch for any signs of bleeding including in your stool, urine or cough 2. Continue Toprol XL 100mg twice a day 3. Decrease your Isosorbide mononitrate (Imdur) dose to 30mg daily 4. Continue Advair 1 puff twice a day 5. Stop taking Amlodipine 10mg, Losartan 50mg, Metoprolol Tartrate (lopressor) 50mg twice Follow up with the following physicians: 1. PCP in one week 2. Pulmonology--Dr. Florez in one week 3. Cardiology--Dr. Goodman in one week 4. Nephrology--Dr. Reis in one week Continue all other medications as prescribed. Please return to the ER if you have any signs or symptoms of chest pain, shortness of breath, uncontrollable fever, chills, nausea, vomiting, numbness, tingling, or weakness in any part of your body, changes in vision, slurred speech, changes in speech/gait, or dizziness. Please return to the ER if symptoms persist, worsen, or new symptoms arise. Referrals: Ayden Florez MD [Staff Physician] - Lavelle Goodman MD [Staff Physician] - Zelda Reis MD [Staff Physician] - Disposition: LONGTERM FACILITY - Home Medications Comprehensive Discharge Medication List: Ambulatory Orders Albuterol Sulfate Inhaler - [Ventolin HFA Inhaler -] 2 inh PO Q6H 05/27/18 Amlodipine Besylate 10 mg PO HS 05/27/18 Isosorbide Mononitrate [Imdur -] 60 mg PO DAILY 05/27/18 Losartan Potassium 50 mg PO DAILY 05/27/18 Metoprolol Tartrate 50 mg PO BID 05/27/18 Rosuvastatin [Crestor -] 20 mg PO HS 05/27/18 Salmeterol/Fluticasone [Advair 100Mcg/50Mcg -] 1 inh PO BID 05/27/18 Sevelamer Carbonate [Renvela -] 800 mg PO TID 05/27/18 Olanzapine [Zyprexa -] 5 mg PO BID #60 tablet 06/03/18 This patient is new to me today: No Emergency Visit: Yes ED Registration Date: 06/05/18 Care time: The patient presented to the Emergency Department on the above date and was hospitalized for further evaluation of their emergent condition. Critical Care patient: No - Discharge Referral Referred to [facility] Med P.C.: No
[2018-06-13] MEDS: FLUTICASONE/SALMETEROL 100 MCG/50 MCG DISKUS IH SCH (11:53)
[2018-06-13] MEDS ORDERED: AMOX TR/POT CLAV 500MG/125MG TABLETS (FP) PO SCH (12:15)
[2018-06-13 14:29] VITALS: BP 111/48; PULSE 87; TEMP 98.3
--- NOTE | 2018-06-13 15:20 | PN ---
Progress Note, Physician History of Present Illness: Pt tolerated HD today. She has HD set up as outpt. - Objective Vital Signs: Vital Signs Temperature 98.3 F 06/13/18 14:00 Pulse Rate 87 06/13/18 14:00 Respiratory Rate 18 06/13/18 14:00 Blood Pressure 111/48 L 06/13/18 14:00 O2 Sat by Pulse Oximetry (%) 98 06/13/18 10:00 Constitutional: Yes: Calm Eyes: Yes: Conjunctiva Clear HENT: Yes: Atraumatic Neck: Yes: Supple Cardiovascular: Yes: S1, S2 Respiratory: Yes: On Nasal O2 Gastrointestinal: Yes: WNL Genitourinary: Yes: WNL Edema: No Integumentary: Yes: WNL Neurological: Yes: Confusion Labs: CBC, BMP 06/11/18 11:30 06/13/18 07:00 INR, PTT INR 0.91 (0.83-1.09) 06/05/18 00:30 Assessment/Plan Impression 1. ESRD 2. HTN 3. HLD 4. COPD 5. DM 6. pos heb b core 7. confusion with altered mental status 8. anemia 9. a-fib Plan - HD today - she has HD set up as outpt - next HD for Friday, she is now on a TTS schedule - renal diet
--- NOTE | 2018-06-15 16:39 | PN ---
Progress Note (short form) - Note Progress Note: Informed this AM patient has MRSA + Sputum. Called [facility] ([phone]) and Informed Ranjeet (Nurse) of Sputum culture results.
== END 2018-06-13 14:54 | DRG 193 ==
LOC: JER 23:58 → JERBED 06-05 03:23 → OBSVTOIN 06-05 12:57 → J4S 06-05 20:22
PROVIDERS: ADMIT Internal Medicine; ATTEND Internal Medicine
PROC: 5A1D70Z Performance of Urinary Filtration, Intermittent, Less than 6 Hours Per Day (ICD-10-PCS; principal; 2018-06-05)
PROC: 5A09457 Assistance with Respiratory Ventilation, 24-96 Consecutive Hours, Continuous Positive Airway Pressure (ICD-10-PCS; 2018-06-05)
PROC: 5A1D70Z Performance of Urinary Filtration, Intermittent, Less than 6 Hours Per Day (ICD-10-PCS; 2018-06-06)
PROC: 5A1D70Z Performance of Urinary Filtration, Intermittent, Less than 6 Hours Per Day (ICD-10-PCS; 2018-06-09)
PROC: 5A1D70Z Performance of Urinary Filtration, Intermittent, Less than 6 Hours Per Day (ICD-10-PCS; 2018-06-11)
PROC: 5A1D70Z Performance of Urinary Filtration, Intermittent, Less than 6 Hours Per Day (ICD-10-PCS; 2018-06-13)
DX: J18.9 Pneumonia, unspecified organism (principal); N18.6 End stage renal disease; J96.01 Acute respiratory failure with hypoxia; J96.02 Acute respiratory failure with hypercapnia; E46 Unspecified protein-calorie malnutrition; Z68.1 Body mass index [BMI] 19.9 or less, adult; R64 Cachexia; J98.11 Atelectasis; J44.1 Chronic obstructive pulmonary disease with (acute) exacerbation; I50.30 Unspecified diastolic (congestive) heart failure; I13.2 Hypertensive heart and chronic kidney disease with heart failure and with stage 5 chronic kidney disease, or end stage renal disease; E11.22 Type 2 diabetes mellitus with diabetic chronic kidney disease; E88.09 Other disorders of plasma-protein metabolism, not elsewhere classified; R10.9 Unspecified abdominal pain; K21.9 Gastro-esophageal reflux disease without esophagitis; F03.90 Unspecified dementia, unspecified severity, without behavioral disturbance, psychotic disturbance, mood disturbance, and anxiety; E78.00 Pure hypercholesterolemia, unspecified; E83.39 Other disorders of phosphorus metabolism; E87.5 Hyperkalemia; R45.1 Restlessness and agitation; D64.9 Anemia, unspecified; E11.65 Type 2 diabetes mellitus with hyperglycemia; I48.91 Unspecified atrial fibrillation; Z99.81 Dependence on supplemental oxygen; Z99.2 Dependence on renal dialysis; Z66 Do not resuscitate
CPT/HCPCS: 36415; 36600; 71045-TC-FY; 80048; 80053; 81003; 82550; 82803; 82962; 83036; 83605; 83735; 84100; 84484; 85025; 85027; 85610; 85730; 86850; 86900; 86901; 87040; 87070; 87186; 87205; 87899; 93005; 93010; 94640; 94660; 97116-GP; 97161-GP; 99285-25; G0378; G0480; J1644

== ENCOUNTER 2018-11-05 22:46 | Inpatient (IN) | payer OTHER ==
--- NOTE | 2018-11-06 00:01 | PDOC ---
History of Present Illness - General Chief Complaint: Pain, Acute Stated Complaint: ABD PAIN Time Seen by Provider: 11/05/18 23:57 - History of Present Illness Initial Comments: 11/06/18 02:20 88 year old female with a PMH of ESRD (on T//Fri HD), COPD (not on home O2), Anemia, Asthma, CHF, DM, GERD, AFib (on A/C) presents with 2 day h/o abdominal pain. Patient is a Sami Creole speaker and daughter at bedside assists in history and translation. Daughter states at baseline patient is alert and oriented to self, intermittently oriented to place. Patient has been complaining of abdominal pain and localizing pain to her suprapubic region. Patient has been vomiting, however, patient often has small NBNB emesis post HD. Notes patient has a h/o UTI's in the past few years, however for the past 3 months patient has stopped producing urine. No fever, chest pain, shortness of breath and patient is currently at baseline mental status which includes some confusion in the evening hours. Past History - Past Medical History Allergies/Adverse Reactions: Allergies Allergy/AdvReac Type Severity Reaction Status Date / Time egg AdvReac Vomiting Verified 11/05/18 22:59 Home Medications: Ambulatory Orders Apixaban [Eliquis -] 2.5 mg PO BID tablet 06/13/18 Isosorbide Mononitrate [Imdur -] 30 mg PO DAILY tab.sr.24h 06/13/18 Sevelamer Carbonate [Renvela -] 800 mg PO TIDCM tab 06/13/18 Alendronate Sodium [Binosto] 70 mg PO DAILY 11/05/18 Atorvastatin Ca [Lipitor] 20 mg PO HS 11/05/18 Esomeprazole Magnesium 20 mg PO DAILY 11/05/18 Fluticasone/Umeclidin/Vilanter [Trelegy Ellipta 100-62.5-25] 1 each IH DAILY 07/19 Hydralazine HCl 100 mg PO PRN 11/05/18 Insulin Glargine,Hum.rec.anlog [Alejandro Spencer] 10 unit SQ DAILY 11/05/18 Metoprolol Succinate [Toprol XL -] 100 mg PO DAILY 11/05/18 Ondansetron [Zofran *Odt*] 4 mg SL DAILY 11/05/18 Ranolazine [Ranolazine ER] 500 mg PO BID 11/05/18 Telmisartan/Amlodipine [Telmisartan-Amlodipine 80-10] 1 each PO DAILY 11/05/18 Anemia: Yes Asthma: Yes Cancer: No Cardiac Disorders: No CVA: Yes COPD: Yes (home o2) CHF: Yes Dementia: No Diabetes: Yes GI Disorders: Yes (GERD) Disorders: Yes HTN: Yes Hypercholesterolemia: Yes Kidney Stones: Yes Liver Disease: No Seizures: No Thyroid Disease: No - Surgical History Abdominal Surgery: No Appendectomy: No Cardiac Surgery: No Cholecystectomy: No Lung Surgery: No Neurologic Surgery: Yes (CRANIOTOMY 10YEARS AGO) Orthopedic Surgery: No - Immunization History Immunization Up to Date: Yes - Suicide/Smoking/Psychosocial Hx Smoking History: Former smoker Have you smoked in the past 12 months: No Number of Cigarettes Smoked Daily: 0 Cigars Per Day: 0 Information on smoking cessation initiated: No Hx Alcohol Use: No Drug/Substance Use Hx: No Substance Use Type: None Hx Substance Use Treatment: No Review of Systems - Review of Systems Constitutional: No: Fever Respiratory: No: Cough, Shortness of Breath Cardiac (ROS): No: Chest Pain, Lightheadedness, Palpitations, Syncope ABD/GI: Yes: Constipated (chronic), Vomiting, Abdominal cramping. No: Diarrhea , Nausea *Physical Exam - Vital Signs Last Vital Signs Temp Pulse Resp BP Pulse Ox 97.6 F 91 H 20 176/84 H 96 11/05/18 22:57 11/05/18 22:57 11/05/18 22:57 11/05/18 22:57 11/05/18 22:57 - Physical Exam Comments: 11/06/18 07:43 Alert, non-toxic appearing Abdomen: suprapubic TTP w/o peritoneal sign, (+) bowel sounds CV: S1, S2, RRR Respiratory: CLTA B/L, no wheeze/crackle Extremity: 2+ DP pulse, no edema Neuro: (baseline) alert, currently oriented to self, place ED Treatment Course - LABORATORY CBC & Chemistry Diagram: 11/06/18 00:17 11/06/18 00:17 Medical Decision Making - Medical Decision Making 11/06/18 03:12 -88 year old female with suprapubic abdominal pain - Limited historian 2/2 to baseline dementia - Hypertensive (SBP 176), Afebrile, other VS unremarkable - Belly exam w/suprapubic TTP w/o peritoneal sign - Will obtain CTAP - frontal diagnosis includes UTI/Cystitis however patient does not produce urine, also consider acute appendicitis, colitis, cannot r/o SBO, bowel perforation, mesenteric ischemia. - CT showed: ultiple dilated loops of small bowel w air fluid levels, bilateral inguinal hernias containing small bowel, on the L side dilated loops, R side has collapsed loops. No noted free air. Noted fluid in the pelvic gutter - Case d/w Dr. Orellana (General Surgery) requests CTAP w/PO contrast; NGT - Patient admitted to inpatient hospitalist medicine service. *DC/Admit/Observation/Transfer Diagnosis at time of Disposition: SBO (small bowel obstruction) - Discharge Dispostion Condition at time of disposition: Fair Decision to Admit order: Yes - Referrals - Patient Instructions - Post Discharge Activity
--- NOTE | 2018-11-06 00:31 | PDOC ---
Attending Attestation - Resident Resident Name: TylerAlaina - ED Attending Attestation I have performed the following: I have examined & evaluated the patient, The case was reviewed & discussed with the resident, I agree w/resident's findings & plan, Exceptions are as noted - HPI HPI: 11/06/18 00:30 88F c/o suprapubic abdominal px a/w nausea, vomiting. Pt is anuric - Physicial Exam PE: 11/06/18 08:06 Agree with exam as documented by resident - Medical Decision Making 11/06/18 08:06 suprapubic abd px a/w n/v, recently anuric but consider cystitis? eval for appy, colitis, obstruction f/u labs, ct dispo per clinical course ct with sbo admit
[2018-11-06 00:39] LABS: BASO % 0.2 % (0-2.0); EOS % 0.2 % (0-4.5); HEMATOCRIT 40.6 % (32.4-45.2); HEMOGLOBIN 13.3 GM/dL (10.7-15.3); LYMPH % 11.2 % (8-40); MCH 27.2 pg (25.7-33.7); MCHC 32.8 g/dl (32.0-36.0); MEAN CELL VOLUME 83.1 fl (80-96); MEAN PLT VOLUME 9.6 fl (7.5-11.1); MONO % 5.6 % (3.8-10.2); NEUT % 82.8 % (42.8-82.8); PLATELET COUNT 224 K/MM3 (134-434); RBC 4.89 M/mm3 (3.60-5.2); RDW 15.5 % (11.6-15.6); WHITE BLOOD COUNT 9.1 K/mm3 (4.0-10.0)
[2018-11-06 01:14] LABS: INR 0.93 (0.83-1.09)
[2018-11-06 01:22] LABS: ALBUMIN 4.3 g/dl (3.4-5.0); ALK PHOS 61 U/L (45-117); ANION GAP 9 MMOL/L (8-16); BILIRUBIN,TOTAL 1.1 mg/dL (0.2-1); BLOOD UREA NITROGEN 27.7 mg/dL (7-18); CHLORIDE 95 mmol/L (98-107); CO2 37 mmol/L (21-32); CREATININE 3.9 mg/dL (0.55-1.3); GLUCOSE,RANDOM 134 mg/dL (74-106); POTASSIUM 5.5 mmol/L (3.5-5.1); SGOT/AST 26 U/L (15-37); SGPT/ALT 16 U/L (13-61); SODIUM 141 mmol/L (136-145); TOT PROT 7.8 g/dl (6.4-8.2)
[2018-11-06] MEDS ORDERED: morphine CARPU-JECT 2 MG/1 ML DISP.SYRIN IVPUSH ONE (03:40)
[2018-11-06] MEDS ORDERED: MORPHINE SULFATE 2 MG/ML VIAL ONE (03:52)
--- NOTE | 2018-11-06 04:20 | HP ---
CHIEF COMPLAINT: abdominal pain PCP: Dr. Reid Marrufo HISTORY OF PRESENT ILLNESS: Araceli Crouch is an 88 year old female with a past medical history of ESRD (,, Fri), COPD, anemia, asthma, CHF, DM, GERD, HTN, HLD, afib who presents with abdominal pain worsened over the last day. The patient had been getting dialysis since May and has had episodes of nausea and vomiting and poor appetite. She was losing weight since her dialysis began mainly due to her loss of appetite and constant bouts of nausea. During the last dialysis session on the patient had nausea and vomited and then complained of abdominal pain that would not remit. The pain was localized mainly to the LLQ with some radiation throughout the whole abdomen. She continued to feel nauseous. Endorsed constipation over the last several days. Denied chest pain, shortness of breath, headaches, dizziness, fever, chills. Does not produce urine. ER course was notable for: (1) CT scan showing multiple dilated loops of small bowel w air fluid levels, bilateral inguinal hernias containing small bowel, on the L side dilated loops, R side has collapsed loops. No noted free air. Noted fluid in the pelvic gutter (2) BUN 27.7, CRE 3.9 Recent Travel: denies PAST MEDICAL HISTORY: as above PAST SURGICAL HISTORY: craniotomy denies abdominal surgery Social History: Smoking: former smoker Alcohol: alcohol Drugs: alcohol Family History: denies significant family history Allergies egg Adverse Reaction (Verified 11/05/18 22:59) Vomiting HOME MEDICATIONS: Home Medications Medication Instructions Recorded Apixaban [Eliquis -] 2.5 mg PO BID tablet 06/13/18 Isosorbide Mononitrate [Imdur -] 30 mg PO DAILY tab.sr.24h 06/13/18 Sevelamer Carbonate [Renvela -] 800 mg PO TIDCM tab 06/13/18 Alendronate Sodium [Binosto] 70 mg PO DAILY 11/05/18 Atorvastatin Ca [Lipitor] 20 mg PO HS 11/05/18 Esomeprazole Magnesium 20 mg PO DAILY 11/05/18 Fluticasone/Umeclidin/Vilanter 1 each IH DAILY 11/05/18 [Trelegy Ellipta 100-62.5-25] Hydralazine HCl 100 mg PO PRN 11/05/18 Insulin Glargine,Hum.rec.anlog 10 unit SQ DAILY 11/05/18 [Darreljncelia Cisnerosellen] Metoprolol Succinate [Toprol XL -] 100 mg PO DAILY 11/05/18 Ondansetron [Zofran *Odt*] 4 mg SL DAILY 11/05/18 Ranolazine [Ranolazine ER] 500 mg PO BID 11/05/18 Telmisartan/Amlodipine 1 each PO DAILY 11/05/18 [Telmisartan-Amlodipine 80-10] REVIEW OF SYSTEMS CONSTITUTIONAL: generalized weakness, loss of appetite, weight change Absent: fever, chills, diaphoresis, malaise, HEENT: Absent: rhinorrhea, nasal congestion, throat pain, visual changes CARDIOVASCULAR: Absent: chest pain, syncope, palpitations, irregular heart rate, lightheadedness , peripheral edema RESPIRATORY: Absent: cough, shortness of breath, dyspnea with exertion, orthopnea, wheezing, GASTROINTESTINAL: abdominal pain, abdominal distension, nausea, vomiting, constipation Absent: diarrhea, melena, hematochezia GENITOURINARY: does not produce urine Absent: dysuria, frequency, urgency, hesitancy, hematuria, flank pain, genital pain MUSCULOSKELETAL: Absent: myalgia, arthralgia, joint swelling, back pain, neck pain SKIN: Absent: rash, itching, pallor HEMATOLOGIC/IMMUNOLOGIC: Absent: easy bleeding, easy bruising, frequent infections ENDOCRINE: Absent: unexplained weight gain, unexplained weight loss, heat intolerance, cold intolerance NEUROLOGIC: Absent: headache, focal weakness or paresthesias, dizziness, unsteady gait, seizure, mental status changes, bladder or bowel incontinence PSYCHIATRIC: Absent: anxiety, depression, suicidal or homicidal ideation, hallucinations. PHYSICAL EXAMINATION Vital Signs - 24 hr 11/05/18 22:57 Temperature 97.6 F Pulse Rate 91 H Respiratory 20 Rate Blood Pressure 176/84 H O2 Sat by Pulse 96 Oximetry (%) GENERAL: Awake, alert, and fully oriented, in moderate acute distress. [place]ian- Creole speaker. HEAD: Normal with no signs of trauma. EYES: Pupils equal, round and reactive to light, extraocular movements intact, sclera anicteric, conjunctiva clear. EARS, NOSE, THROAT: Oropharynx clear without exudates. Dry mucous membranes. NECK: Normal range of motion, supple without lymphadenopathy, JVD. LUNGS: Breath sounds equal, clear to auscultation bilaterally. No wheezes, and no crackles. No accessory muscle use. HEART: Regular rate and rhythm, normal S1 and S2 without murmur, rub. ABDOMEN: Soft, tender throughout more pronounced in the LLQ, mildly distended, hypoactive bowel sounds, occasional guarding, no rebound. Noted palpated hernia on L side. MUSCULOSKELETAL: Normal range of motion at all joints. No bony deformities or tenderness. UPPER EXTREMITIES: 2+ pulses, warm, well-perfused. No cyanosis. No clubbing. No peripheral edema. LOWER EXTREMITIES: 2+ pulses, warm, well-perfused. No calf tenderness. 1+ peripheral edema. NEUROLOGICAL: Cranial nerves II-XII intact. PSYCHIATRIC: Cooperative. Good eye contact. Appropriate mood and affect. SKIN: Warm, dry, normal turgor, no rashes or lesions noted, normal capillary refill. Laboratory Results - last 24 hr 11/06/18 11/06/18 11/06/18 00:17 00:17 00:17 WBC 9.1 RBC 4.89 Hgb 13.3 Hct 40.6 MCV 83.1 MCH 27.2 MCHC 32.8 RDW 15.5 Plt Count 224 MPV 9.6 Absolute Neuts (auto) 7.5 Neutrophils % 82.8 Lymphocytes % 11.2 D Monocytes % 5.6 Eosinophils % 0.2 D Basophils % 0.2 Nucleated RBC % 0 PT with INR INR PTT (Actin FS) 31.1 Sodium 141 Potassium 5.5 H Chloride 95 L Carbon Dioxide 37 H Anion Gap 9 BUN 27.7 H Creatinine 3.9 H Est GFR (CKD-EPI)AfAm 11.24 Est GFR (CKD-EPI)NonAf 9.70 Random Glucose 134 H Lactic Acid Calcium 11.0 H Total Bilirubin 1.1 H AST 26 ALT 16 Alkaline Phosphatase 61 Creatine Kinase 85 Troponin I < 0.02 B-Natriuretic Peptide 1705.0 H Total Protein 7.8 Albumin 4.3 Blood Type Antibody Screen 11/06/18 11/06/18 11/06/18 00:17 00:17 00:17 WBC RBC Hgb Hct MCV MCH MCHC RDW Plt Count MPV Absolute Neuts (auto) Neutrophils % Lymphocytes % Monocytes % Eosinophils % Basophils % Nucleated RBC % PT with INR 11.00 INR 0.93 PTT (Actin FS) Sodium Potassium Chloride Carbon Dioxide Anion Gap BUN Creatinine Est GFR (CKD-EPI)AfAm Est GFR (CKD-EPI)NonAf Random Glucose Lactic Acid 1.3 Calcium Total Bilirubin AST ALT Alkaline Phosphatase Creatine Kinase Troponin I B-Natriuretic Peptide Total Protein Albumin Blood Type A POSITIVE Antibody Screen Negative EKG--> NSR, LVH, QTc 437 ASSESSMENT/PLAN: Araceli Crouch is an 88 year old female with a past medical history of ESRD (T,, Fri), COPD, anemia, asthma, CHF, DM, GERD, HTN, HLD who is admitted for abdominal pain likely secondary to small bowel obstruction. Abdominal Pain ESRD COPD CHF DM HTN HLD Afib Hyperkalemia Abdominal Pain - likely secondary to small bowel obstruction as noted on CT scan - Dr. Orellana consulted - recommending NG tube placement and repeat CT with contrast - NPO - morning labs for pre-op for possible surgical intervention ESRD - nephrology consulted - dialysis T//Sat COPD - Duoneb q6h prn CHF - echo in May showing EF 55-60%, impaired LV relaxation, RV systolic pressure elevated, moderate tricuspid regurgitation DM - BGM - ISS HTN - patient NPO - control BP with labetalol 20mg q8h, hold parameters of SBP <150, DBP <90, HR < 65 - restart PO meds when possible for adequate BP control HLD - holding home cholesterol medications while NPO Afib - on home Eliquis - consider starting heparin drip while NPO - currently in sinus rhythm Hyperkalemia - Insulin 10 units - D50 - EKG with no acute changes - dialysis FEN - no standing fluids in the setting of ESRD and CHF - continue to monitor electrolytes and replete as necessary - NPO pending SBO resolution and clearance by surgery Prophylaxis - heparin 5000 units subq bid Code - was DNR on previous admission, need to obtain code status JAYSHREE STAPLES DO - PGY-1 Visit type - Emergency Visit Emergency Visit: Yes ED Registration Date: 11/06/18 Care time: The patient presented to the Emergency Department on the above date and was hospitalized for further evaluation of their emergent condition. - New Patient This patient is new to me today: Yes Date on this admission: 11/06/18 - Critical Care Critical Care patient: No
[2018-11-06] MEDS ORDERED: ALBUTEROL SO4 2.5/IPRATROPIUM 0.5 INH SOL 3 ML VIAL.NEB. NEB PRN (04:26)
[2018-11-06] MEDS ORDERED: LIDOCAINE VISCOUS 2% ORAL/TOP 20 ML UNIT-DOSE CUP ONE (05:12)
[2018-11-06] MEDS ORDERED: LIDOCAINE HCL 2% JELLY (5 ML/TUBE) ONE (05:13)
[2018-11-06] MEDS ORDERED: LORazepam 2 MG/ML SDV VIAL ONE (05:39)
[2018-11-06] MEDS ORDERED: INSULIN SLIDING SCALE (NOVOLOG) 1 VIAL SQ SCH (06:00)
[2018-11-06] MEDS ORDERED: INSULIN REGULAR HUMAN 100 UNITS/ML *VIAL IVPUSH ONE (06:23)
[2018-11-06] MEDS ORDERED: DEXTROSE 50%-WATER - 25 GM/50 ML VIAL IVPUSH ONE (06:23)
--- NOTE | 2018-11-06 06:57 | PN ---
Teaching Attending Note Name of Resident: Mayco Michael ATTENDING PHYSICIAN STATEMENT I saw and evaluated the patient. I reviewed the resident's note and discussed the case with the resident. I agree with the resident's findings and plan as documented. SUBJECTIVE: 88 year old female with a past medical history of ESRD (T,Th,Sat), COPD, anemia , asthma, CHF, DM, GERD, HTN, HLD, afib who presented from HD after having developed acute suprapubic/abdominal OBJECTIVE: Last Vital Signs Temp Pulse Resp BP Pulse Ox 97.6 F 89 17 158/86 96 11/05/18 22:57 11/06/18 03:59 11/06/18 03:59 11/06/18 03:59 11/06/18 03:59 general -nad, nontoxic heent- at, moist oral mucosa neck supple cv - s1+s2+rrr ches clear abdomen- soft, bs decreased no hernia appreciated ext- left upper ext av fistula Abnormal Lab Results 11/06/18 00:17 Potassium 5.5 H Chloride 95 L Carbon Dioxide 37 H BUN 27.7 H Creatinine 3.9 H Random Glucose 134 H Calcium 11.0 H Total Bilirubin 1.1 H B-Natriuretic Peptide 1705.[address] abd/pelvis showed sbo, b/l inguinal hernias cxr reviewed ASSESSMENT AND PLAN: #SBO -Dr. Orellana consulted -NG tube placement, intermittent suction, and repeat CT with contrast as per surgery recs -NPO -morning labs for pre-op for possible surgical intervention #ESRD on hd w/ hyperkalemia, likely fluid overload -nephrology consulted -dialysis T//Sat -insulin sc+ d50 for hyperkalemia #Uncontrolled htn - prob from hypervolemia from underdialysis -hd -labetolol 20mg IV pushes (NPO because of sbo) #Afib -heparin drip in place of eliquis as she is npo (if does not go to OR) dvt ppx- scd vs heparin drip
[2018-11-06] MEDS ORDERED: DEXTROSE 50%-WATER 25 GM/50 ML DISP.SYRIN ONE (07:08)
--- NOTE | 2018-11-06 07:38 | DS ---
Physical Exam: SUBJECTIVE: Patient seen and examined; discussed with ER; pateint will require transfer to [facility] facility for specialty surgical consultation due to the presence of an ileal conduit with current SBO. This was discussed with resident Tyler who spoke with Dr. Orellana. I have coordinated transfer as of 7 :50 AM and the patient is aware andpaperwork being completed. Clinically stable ; exam remains unchanged. Please refer to Dr. Castle' exam for 24 hour billing period; I examined patient and he has essentially an unchanged presentation. Per admitting HPI: "Araceli Crouch is an 88 year old female with a past medical history of ESRD (T,,Fri), COPD, anemia, asthma, CHF, DM, GERD, HTN, HLD, afib who presents with abdominal pain worsened over the last day. The patient had been getting dialysis since May and has had episodes of nausea and vomiting and poor appetite. She was losing weight since her dialysis began mainly due to her loss of appetite and constant bouts of nausea. During the last dialysis session on the patient had nausea and vomited and then complained of abdominal pain that would not remit. The pain was localized mainly to the LLQ with some radiation throughout the whole abdomen. She continued to feel nauseous. Endorsed constipation over the last several days. Denied chest pain, shortness of breath, headaches, dizziness, fever, chills. Does not produce urine." OBJECTIVE: Vital Signs Period Temp Pulse Resp BP Sys/Betancourt Pulse Ox Last 24 Hr 97.6 F 89-96 17-20 158-176/84-87 92-96 PHYSICAL EXAM Essentially nchanged from admitting history and physical. Briefly, Mild distress, resting in bed, VSS RRR s1/2 Lungs CTAB Tender to palpatin, distended. Did not try to refuce inguinal hernia CN2-12 wnl, no fnd. Ileal conduit noted. LABS Laboratory Results - last 24 hr 11/06/18 11/06/18 11/06/18 00:17 00:17 00:17 WBC 9.1 RBC 4.89 Hgb 13.3 Hct 40.6 MCV 83.1 MCH 27.2 MCHC 32.8 RDW 15.5 Plt Count 224 MPV 9.6 Absolute Neuts (auto) 7.5 Neutrophils % 82.8 Lymphocytes % 11.2 D Monocytes % 5.6 Eosinophils % 0.2 D Basophils % 0.2 Nucleated RBC % 0 PT with INR INR PTT (Actin FS) 31.1 Sodium 141 Potassium 5.5 H Chloride 95 L Carbon Dioxide 37 H Anion Gap 9 BUN 27.7 H Creatinine 3.9 H Est GFR (CKD-EPI)AfAm 11.24 Est GFR (CKD-EPI)NonAf 9.70 POC Glucometer Random Glucose 134 H Lactic Acid Calcium 11.0 H Total Bilirubin 1.1 H AST 26 ALT 16 Alkaline Phosphatase 61 Creatine Kinase 85 Troponin I < 0.02 B-Natriuretic Peptide 1705.0 H Total Protein 7.8 Albumin 4.3 Blood Type Antibody Screen 11/06/18 11/06/18 11/06/18 00:17 00:17 00:17 WBC RBC Hgb Hct MCV MCH MCHC RDW Plt Count MPV Absolute Neuts (auto) Neutrophils % Lymphocytes % Monocytes % Eosinophils % Basophils % Nucleated RBC % PT with INR 11.00 INR 0.93 PTT (Actin FS) Sodium Potassium Chloride Carbon Dioxide Anion Gap BUN Creatinine Est GFR (CKD-EPI)AfAm Est GFR (CKD-EPI)NonAf POC Glucometer Random Glucose Lactic Acid 1.3 Calcium Total Bilirubin AST ALT Alkaline Phosphatase Creatine Kinase Troponin I B-Natriuretic Peptide Total Protein Albumin Blood Type A POSITIVE Antibody Screen Negative 11/06/18 06:27 WBC RBC Hgb Hct MCV MCH MCHC RDW Plt Count MPV Absolute Neuts (auto) Neutrophils % Lymphocytes % Monocytes % Eosinophils % Basophils % Nucleated RBC % PT with INR INR PTT (Actin FS) Sodium Potassium Chloride Carbon Dioxide Anion Gap BUN Creatinine Est GFR (CKD-EPI)AfAm Est GFR (CKD-EPI)NonAf POC Glucometer 118 Random Glucose Lactic Acid Calcium Total Bilirubin AST ALT Alkaline Phosphatase Creatine Kinase Troponin I B-Natriuretic Peptide Total Protein Albumin Blood Type Antibody Screen HOSPITAL COURSE: Date of Admission:11/06/18 Date of Discharge: 11/06/18 30 minutes after completion of the history and physical I was alerted by ER that surgical services at our facility cannot take care of his underlying issues due to the past surgical history of ileal conduit with the presenting diagnosis of small bowel obstruction. Prelim read reviewed; final read pending. Prelim read: "Positive for small bowel obstruction. There are multiple dilated loops of small bowel with air-fluid levels. There are also bilateral inguinal hernias. Both inguinal hernias contain small bowel. The left inguinal hernia contains a dilated loop. The right inguinal hernia contains collapsed loops. Therefore the source of the small bowel obstruction is more likely to be the left inguinal hernia. This is not completely certain therefore recommend correlation with the site of the pain. There is also some fluid in the right inguinal hernia. Small amount of fluid in the pelvic gutter. Abundant stool in the colon. There is no free intraperitoneal air." Discharge Summary Reason For Visit: SMALL BOWEL OBSTRUCTION - Instructions - Home Medications Comprehensive Discharge Medication List: Ambulatory Orders Apixaban [Eliquis -] 2.5 mg PO BID tablet 06/13/18 Isosorbide Mononitrate [Imdur -] 30 mg PO DAILY tab.sr.24h 06/13/18 Sevelamer Carbonate [Renvela -] 800 mg PO TIDCM tab 06/13/18 Alendronate Sodium [Binosto] 70 mg PO DAILY 11/05/18 Atorvastatin Ca [Lipitor] 20 mg PO HS 11/05/18 Esomeprazole Magnesium 20 mg PO DAILY 11/05/18 Fluticasone/Umeclidin/Vilanter [Trelegy Ellipta 100-62.5-25] 1 each IH DAILY 07/19 Hydralazine HCl 100 mg PO PRN 11/05/18 Insulin Glargine,Hum.rec.anlog [Toujeo Solostar] 10 unit SQ DAILY 11/05/18 Metoprolol Succinate [Toprol XL -] 100 mg PO DAILY 11/05/18 Ondansetron [Zofran *Odt*] 4 mg SL DAILY 11/05/18 Ranolazine [Ranolazine ER] 500 mg PO BID 11/05/18 Telmisartan/Amlodipine [Telmisartan-Amlodipine 80-10] 1 each PO DAILY 11/05/18
[2018-11-06 08:58] LABS: BASO % 0.6 % (0-2.0); EOS % 0.9 % (0-4.5); HEMATOCRIT 37.6 % (32.4-45.2); HEMOGLOBIN 12.4 GM/dL (10.7-15.3); LYMPH % 17.9 % (8-40); MCH 27.5 pg (25.7-33.7); MCHC 32.9 g/dl (32.0-36.0); MEAN CELL VOLUME 83.4 fl (80-96); MEAN PLT VOLUME 8.6 fl (7.5-11.1); MONO % 10.4 % (3.8-10.2); NEUT % 70.2 % (42.8-82.8); PLATELET COUNT 216 K/MM3 (134-434); RDW 15.5 % (11.6-15.6); WHITE BLOOD COUNT 7.6 K/mm3 (4.0-10.0)
[2018-11-06 09:12] LABS: INR 0.92 (0.83-1.09); PROTHROMBIN TIME (PATIENT) 10.8 SEC (9.7-13.0)
[2018-11-06 09:25] LABS: ALBUMIN 3.6 g/dl (3.4-5.0); BILIRUBIN,TOTAL 0.9 mg/dL (0.2-1); BLOOD UREA NITROGEN 33.2 mg/dL (7-18); CALCIUM 10.4 mg/dL (8.5-10.1); CREATININE 4.7 mg/dL (0.55-1.3); MAGNESIUM 2.4 mg/dL (1.8-2.4); POTASSIUM 4.7 mmol/L (3.5-5.1); TOT PROT 6.5 g/dl (6.4-8.2)
--- NOTE | 2018-11-06 09:50 | CONSULT ---
Consultation: CONSULT SERVICE: Nephrology Resident (Dr. Reis) HISTORY OF PRESENT ILLNESS: *Pt is Creole-speaking and history obtained with assistance from daughter at bedside* 88yo F with h/o ESRD (M/W/F; [place]), pulmonary HTn, COPD (2-3L [place]) , HTN, T2DM who presents to this facility originally due to abdominal pain and nausea suspected to have SBO. We were asked to medically evaluate this patient due to her chronic dialysis needs. Pt last underwent dialysis yesterday 11/05/18, however she was noted to have a low blood pressures which responded to fluid during her session. Pt today has minimal abdominal pain and denies any difficulty breathing, cough, chest pain, palpitations. In addition, pt was noted in ER to have hyperkalemia of 5.5 which was treated with D50 and Insulin regular 10U with resulting K+ this AM of 4.7. No EKG changes were noted throughout her stay today. PMHx: ESRD (M/W/F; 4hrs, heparin given during session), COPD (2.5-3L baseline) , Pulmonary HTN stage II, HTN, T2DM PSHx: AV fistula creation SoHx: Smoking: Denies Alcohol: Denies Drugs: Denies Wheelchair bound, lives with daughter (eldest) Family History: No history of bleeding disorders or vasculitis REVIEW OF SYSTEMS: As per HPI PHYSICAL EXAMINATION Vital Signs - 24 hr 11/05/18 11/06/18 11/06/18 22:57 03:59 07:04 Temperature 97.6 F Pulse Rate 91 H Pulse Rate [ 89 96 H Right] Respiratory 20 17 20 Rate Blood Pressure 176/84 H Blood Pressure 158/86 163/87 [Right Arm] O2 Sat by Pulse 96 96 92 L Oximetry (%) GENERAL: Awake, alert, in no acute distress, speaking coherantly according to family HEENT: Nc/AT, EOMi, MARZENA, sclera anicteric, NGT in place with minimal drainage noted in collection, MMM NECK: No JVD LUNGS: CTA bilaterally. No wheezes, and no crackles. No accessory muscle use. 2LNC (baseline) HEART: RRR, normal S1 and S2 without murmur ABDOMEN: Soft, minimally distended, nontender, hypoactive bowel sounds, no guarding, EXTREMITIES: 1+ DP pulses b/l, warm, No calf tenderness. No peripheral edema. SKIN: Warm, dry, neg. tenting, no rashes or lesions noted. Laboratory Results 11/06/18 11/06/18 11/06/18 00:17 00:17 00:17 WBC 9.1 RBC 4.89 Hgb 13.3 Hct 40.6 MCV 83.1 MCH 27.2 MCHC 32.8 RDW 15.5 Plt Count 224 MPV 9.6 Absolute Neuts (auto) 7.5 Neutrophils % 82.8 Lymphocytes % 11.2 D Monocytes % 5.6 Eosinophils % 0.2 D Basophils % 0.2 Nucleated RBC % 0 PT with INR INR PTT (Actin FS) 31.1 Sodium 141 Potassium 5.5 H Chloride 95 L Carbon Dioxide 37 H Anion Gap 9 BUN 27.7 H Creatinine 3.9 H Est GFR (CKD-EPI)AfAm 11.24 Est GFR (CKD-EPI)NonAf 9.70 POC Glucometer Random Glucose 134 H Lactic Acid Calcium 11.0 H Magnesium Total Bilirubin 1.1 H AST 26 ALT 16 Alkaline Phosphatase 61 Creatine Kinase 85 Troponin I < 0.02 B-Natriuretic Peptide 1705.0 H Total Protein 7.8 Albumin 4.3 Blood Type Antibody Screen 11/06/18 11/06/18 11/06/18 00:17 00:17 00:17 WBC RBC Hgb Hct MCV MCH MCHC RDW Plt Count MPV Absolute Neuts (auto) Neutrophils % Lymphocytes % Monocytes % Eosinophils % Basophils % Nucleated RBC % PT with INR 11.00 INR 0.93 PTT (Actin FS) Sodium Potassium Chloride Carbon Dioxide Anion Gap BUN Creatinine Est GFR (CKD-EPI)AfAm Est GFR (CKD-EPI)NonAf POC Glucometer Random Glucose Lactic Acid 1.3 Calcium Magnesium Total Bilirubin AST ALT Alkaline Phosphatase Creatine Kinase Troponin I B-Natriuretic Peptide Total Protein Albumin Blood Type A POSITIVE Antibody Screen Negative 11/06/18 11/06/18 11/06/18 06:27 08:49 08:49 WBC 7.6 RBC 4.50 Hgb 12.4 Hct 37.6 MCV 83.4 MCH 27.5 MCHC 32.9 RDW 15.5 Plt Count 216 MPV 8.6 D Absolute Neuts (auto) 5.3 Neutrophils % 70.2 Lymphocytes % 17.9 D Monocytes % 10.4 H D Eosinophils % 0.9 D Basophils % 0.6 Nucleated RBC % 0 PT with INR INR PTT (Actin FS) Sodium 140 Potassium 4.7 Chloride 100 Carbon Dioxide 37 H Anion Gap 3 L BUN 33.2 H Creatinine 4.7 H Est GFR (CKD-EPI)AfAm 8.97 Est GFR (CKD-EPI)NonAf 7.74 POC Glucometer 118 Random Glucose 115 H Lactic Acid Calcium 10.4 H Magnesium 2.4 Total Bilirubin 0.9 AST 17 ALT 15 Alkaline Phosphatase 56 Creatine Kinase Troponin I B-Natriuretic Peptide Total Protein 6.5 Albumin 3.6 Blood Type Antibody Screen 11/06/18 08:49 WBC RBC Hgb Hct MCV MCH MCHC RDW Plt Count MPV Absolute Neuts (auto) Neutrophils % Lymphocytes % Monocytes % Eosinophils % Basophils % Nucleated RBC % PT with INR 10.80 INR 0.92 PTT (Actin FS) Sodium Potassium Chloride Carbon Dioxide Anion Gap BUN Creatinine Est GFR (CKD-EPI)AfAm Est GFR (CKD-EPI)NonAf POC Glucometer Random Glucose Lactic Acid Calcium Magnesium Total Bilirubin AST ALT Alkaline Phosphatase Creatine Kinase Troponin I B-Natriuretic Peptide Total Protein Albumin Blood Type Antibody Screen Active Medications Generic Name Dose Route Start Last Admin Trade Name Freq PRN Reason Stop Dose Admin Albuterol/Ipratropium 1 amp 11/06/18 04:26 Duoneb - NEB RQID PRN SHORT OF BREATH/WHEEZING Heparin Sodium (Porcine) 5,000 unit 11/06/18 10:00 Heparin - SQ BID [facility] Insulin Aspart 1 vial 11/06/18 06:00 11/06/18 06:31 Novolog Vial Sliding Scale - SQ Not Given Q6HPO [facility] Protocol Labetalol HCl 20 mg 11/06/18 10:00 Normodyne Injection - IVPUSH Q8H [facility] ASSESSMENT/PLAN: ESRD (M/W/F) Hyperkalemia (improved) HyperCalcemia (improved) Suspected partial SBO Pulmonary HTN Anemia of chronic disease Type 2 DM --Pt to have dialysis session tomorrow --Otherwise monitor electrolytes and will adjust diasylate for K+ tomorrow --Avoid Lokelma due to SBO if need to treat hyperkalema --Avoid excessive fluid and monitor fluid status Rest per primary teams Thank you for this consultative opportunity Case discussed with Dr. Chato Burnette, DO - IM PGY-3 Visit type - Emergency Visit Emergency Visit: Yes ED Registration Date: 11/06/18 Care time: The patient presented to the Emergency Department on the above date and was hospitalized for further evaluation of their emergent condition. - New Patient This patient is new to me today: Yes Date on this admission: 11/06/18 - Critical Care Critical Care patient: No
--- NOTE | 2018-11-06 09:56 | CONSULT ---
- Consultation REQUESTING PROVIDER: CONSULT REQUEST: We have been asked to surgically evaluate this patient for SBO. PCP:Prabhjot Harrington MD HISTORY OF PRESENT ILLNESS: 88 y/o F w/ PMHx ESRD via LUE AVF(,,Fri), COPD, anemia, asthma, CHF, DM, GERD, HTN, HLD, afib on Eliquis brought to the ED by her daughter due to abdominal pain. Per pts daughter pt began HD in May and has been having nausea and vomiting after HD. Pts daughter reports pt has lost a significant amount of weight due to n/v. Daughter reports during the last dialysis session (), patient had nausea and vomited and then complained of continuous abdominal pain. Reports pain was localized mainly to the LLQ with some radiation to the right. Pt has been constipated over the last few days, had one small bowel movement yesterday per daughter. Denies chest pain, shortness of breath, headaches, dizziness, fever, chills. Does not produce urine. At baseline, pt lives home with daughter. Cared for by daughter and [employer]. Ambulates minimally in home with walker (per daughter pt is very unsteady). CT scan done in ER (noncon) revealing multiple dilated loops of small bowel w air fluid levels, bilateral inguinal hernias containing small bowel, on the L side dilated loops, R side has collapsed loops. No noted free air. Noted fluid in the pelvic gutter PMHx: as above PSHx: LUE AVF (Dr Gaming, 11/12/17) Home Medications Medication Instructions Recorded Apixaban [Eliquis -] 2.5 mg PO BID tablet 06/13/18 Isosorbide Mononitrate [Imdur -] 30 mg PO DAILY tab.sr.24h 06/13/18 Sevelamer Carbonate [Renvela -] 800 mg PO TIDCM tab 06/13/18 Alendronate Sodium [Binosto] 70 mg PO DAILY 11/05/18 Atorvastatin Ca [Lipitor] 20 mg PO HS 11/05/18 Esomeprazole Magnesium 20 mg PO DAILY 11/05/18 Fluticasone/Umeclidin/Vilanter 1 each IH DAILY 11/05/18 [Trelegy Ellipta 100-62.5-25] Hydralazine HCl 100 mg PO PRN 11/05/18 Insulin Glargine,Hum.rec.anlog 10 unit SQ DAILY 11/05/18 [Darreljncelia Johanna] Metoprolol Succinate [Toprol XL -] 100 mg PO DAILY 11/05/18 Ondansetron [Zofran *Odt*] 4 mg SL DAILY 11/05/18 Ranolazine [Ranolazine ER] 500 mg PO BID 11/05/18 Telmisartan/Amlodipine 1 each PO DAILY 11/05/18 [Telmisartan-Amlodipine 80-10] Allergies Allergy/AdvReac Type Severity Reaction Status Date / Time egg AdvReac Vomiting Verified 11/05/18 22:59 REVIEW OF SYSTEMS: CONSTITUTIONAL: Absent: fever, chills CARDIOVASCULAR: Absent: chest pain, syncope RESPIRATORY: Absent: cough, shortness of breath GASTROINTESTINAL: +abdominal pain, + nausea, vomiting, - diarrhea, + constipation PHYSICAL EXAM: GENERAL: Awake, alert, in no acute distress. HEAD: Normal with no signs of trauma. NGT in place with dark red blood in canister (approx 25ml) and bright red blood in tubing. Posterior pharynx with no bleeding visualized. ABDOMEN: Soft, nontender, not distended, normoactive bowel sounds, no guarding, no rebound, + R inguinal hernia (large), easily reducible no ttp. L groin with small inguinal hernia, reducible. Vital Signs Temperature 97.6 F 11/05/18 22:57 Pulse Rate 96 H 11/06/18 07:04 Respiratory Rate 20 11/06/18 07:04 Blood Pressure 163/87 11/06/18 07:04 O2 Sat by Pulse Oximetry (%) 92 L 11/06/18 07:04 Lab Results WBC 7.6 K/mm3 (4.0-10.0) 11/06/18 08:49 RBC 4.50 M/mm3 (3.60-5.2) 11/06/18 08:49 Hgb 12.4 GM/dL (10.7-15.3) 11/06/18 08:49 Hct 37.6 % (32.4-45.2) 11/06/18 08:49 MCV 83.4 fl (80-96) 11/06/18 08:49 MCHC 32.9 g/dl (32.0-36.0) 11/06/18 08:49 RDW 15.5 % (11.6-15.6) 11/06/18 08:49 Plt Count 216 K/MM3 (134-434) 11/06/18 08:49 Sodium 140 mmol/L (136-145) 11/06/18 08:49 Potassium 4.7 mmol/L (3.5-5.1) 11/06/18 08:49 Chloride 100 mmol/L (98-107) 11/06/18 08:49 Carbon Dioxide 37 mmol/L (21-32) H 11/06/18 08:49 Anion Gap 3 MMOL/L (8-16) L 11/06/18 08:49 BUN 33.2 mg/dL (7-18) H 11/06/18 08:49 Creatinine 4.7 mg/dL (0.55-1.3) H 11/06/18 08:49 Random Glucose 115 mg/dL (74-106) H 11/06/18 08:49 Calcium 10.4 mg/dL (8.5-10.1) H 11/06/18 08:49 Blood Type A POSITIVE 11/06/18 00:17 Antibody Screen Negative 11/06/18 00:17 INR 0.92 (0.83-1.09) 11/06/18 08:49 A/P: 88 y/o F w/ PMHx ESRD via LUE AVF(T,Th,Sat), COPD, anemia, asthma, CHF, DM , GERD, HTN, HLD, afib on Eliquis brought to the ED by her daughter due to abdominal pain. Repeat CT a/p with oral contrast: Interval improvement after NGT decompression, possibly manual decompression by surgery in the left groin, oral contrast which appears new in the small bowel, right colon and terminal ileum which is seen to be denser than older contrast noted in the distal left colon, sigmoid and rectum likely from prior procedure. Clinical exam/imagining consistent with self reduced inguinal hernia. -NGT removed this afternoon without issue, keep npo until tomorrow, 11/07 -Can begin liquid diet tomorrow and advance as tolerated -Can consider elective repair as an outpatient, however pt is elderly with multiple comorbidities. plan discussed with pts daughter D/w attending Dr Orellana
[2018-11-06] MEDS ORDERED: HEPARIN NA (PORCINE) 5,000 UNITS/ML 1ML VIAL SQ SCH (10:00)
[2018-11-06] MEDS ORDERED: LABETALOL HCL 5 MG/1 ML (100MG/20 ML VIAL) IVPUSH SCH (10:00)
[2018-11-06 10:58] LABS: BLOOD UREA NITROGEN 35.1 mg/dL (7-18); CALCIUM 10.2 mg/dL (8.5-10.1); CREATININE 4.7 mg/dL (0.55-1.3); POTASSIUM 4.5 mmol/L (3.5-5.1)
[2018-11-06] MEDS ORDERED: LABETALOL HCL 5 MG/1 ML (200MG/40ML VIAL) IVPB ONE (11:25)
--- NOTE | 2018-11-06 11:37 | PN ---
Teaching Attending Note Name of Resident: Singh Reynoso ATTENDING PHYSICIAN STATEMENT Seen and examined; NGT in. Pending surgical evaluation. Afebrile and hemodynamically stable. Abdominal CT reviewed; L-sided inguinal findings likely contributing to the obstruction. Nephrology to dialyze; following up BMP. TTS HD schedule. Changing meds to IV; MT 5mg IV Q6H ATC, PRN hydralazine can be given IV. Discussing continuing eliquis vs. hep drip (SQ lovenox contraindicated with ESRD ). Home meds reviewed; please see orders/reconciliation.
[2018-11-06] MEDS ORDERED: METOPROLOL TARTRATE 5 MG/5 ML VIAL IVPUSH PRN (11:49)
[2018-11-06] MEDS ORDERED: HYDROmorphone HCL CARPU-JECT 2 MG/1 ML DISP.SYRIN IVPUSH PRN (11:51)
--- NOTE | 2018-11-06 11:54 | PN ---
Physical Exam: SUBJECTIVE: Patient seen and examined OBJECTIVE: Vital Signs Period Temp Pulse Resp BP Sys/Betancourt Pulse Ox Last 24 Hr 97.6 F-99.1 F 89-96 17-20 150-176/75-87 92-100 GENERAL: The patient is awake, alert, and fully oriented, in no acute distress. HEAD: Normal with no signs of trauma. EYES: PERRL, extraocular movements intact, sclera anicteric, conjunctiva clear. No ptosis. ENT: Ears normal, nares patent, oropharynx clear without exudates, moist mucous membranes. NECK: Trachea midline, full range of motion, supple. LUNGS: Breath sounds equal, clear to auscultation bilaterally, no wheezes, no crackles, no accessory muscle use. HEART: Regular rate and rhythm, S1, S2 without murmur, rub or gallop. ABDOMEN: Soft, nontender, nondistended, normoactive bowel sounds, no guarding, no rebound, no hepatosplenomegaly, no masses. EXTREMITIES: 2+ pulses, warm, well-perfused, no edema. NEUROLOGICAL: Cranial nerves II through XII grossly intact. Normal speech, gait not observed. PSYCH: Normal mood, normal affect. SKIN: Warm, dry, normal turgor, no rashes or lesions noted Laboratory Results - last 24 hr 11/06/18 11/06/18 11/06/18 00:17 00:17 00:17 WBC 9.1 RBC 4.89 Hgb 13.3 Hct 40.6 MCV 83.1 MCH 27.2 MCHC 32.8 RDW 15.5 Plt Count 224 MPV 9.6 Absolute Neuts (auto) 7.5 Neutrophils % 82.8 Lymphocytes % 11.2 D Monocytes % 5.6 Eosinophils % 0.2 D Basophils % 0.2 Nucleated RBC % 0 PT with INR INR PTT (Actin FS) 31.1 Sodium 141 Potassium 5.5 H Chloride 95 L Carbon Dioxide 37 H Anion Gap 9 BUN 27.7 H Creatinine 3.9 H Est GFR (CKD-EPI)AfAm 11.24 Est GFR (CKD-EPI)NonAf 9.70 POC Glucometer Random Glucose 134 H Lactic Acid Calcium 11.0 H Magnesium Total Bilirubin 1.1 H AST 26 ALT 16 Alkaline Phosphatase 61 Creatine Kinase 85 Troponin I < 0.02 B-Natriuretic Peptide 1705.0 H Total Protein 7.8 Albumin 4.3 Blood Type Antibody Screen 11/06/18 11/06/18 11/06/18 00:17 00:17 00:17 WBC RBC Hgb Hct MCV MCH MCHC RDW Plt Count MPV Absolute Neuts (auto) Neutrophils % Lymphocytes % Monocytes % Eosinophils % Basophils % Nucleated RBC % PT with INR 11.00 INR 0.93 PTT (Actin FS) Sodium Potassium Chloride Carbon Dioxide Anion Gap BUN Creatinine Est GFR (CKD-EPI)AfAm Est GFR (CKD-EPI)NonAf POC Glucometer Random Glucose Lactic Acid 1.3 Calcium Magnesium Total Bilirubin AST ALT Alkaline Phosphatase Creatine Kinase Troponin I B-Natriuretic Peptide Total Protein Albumin Blood Type A POSITIVE Antibody Screen Negative 11/06/18 11/06/18 11/06/18 06:27 08:49 08:49 WBC 7.6 RBC 4.50 Hgb 12.4 Hct 37.6 MCV 83.4 MCH 27.5 MCHC 32.9 RDW 15.5 Plt Count 216 MPV 8.6 D Absolute Neuts (auto) 5.3 Neutrophils % 70.2 Lymphocytes % 17.9 D Monocytes % 10.4 H D Eosinophils % 0.9 D Basophils % 0.6 Nucleated RBC % 0 PT with INR INR PTT (Actin FS) Sodium 140 Potassium 4.7 Chloride 100 Carbon Dioxide 37 H Anion Gap 3 L BUN 33.2 H Creatinine 4.7 H Est GFR (CKD-EPI)AfAm 8.97 Est GFR (CKD-EPI)NonAf 7.74 POC Glucometer 118 Random Glucose 115 H Lactic Acid Calcium 10.4 H Magnesium 2.4 Total Bilirubin 0.9 AST 17 ALT 15 Alkaline Phosphatase 56 Creatine Kinase Troponin I B-Natriuretic Peptide Total Protein 6.5 Albumin 3.6 Blood Type Antibody Screen 11/06/18 11/06/18 11/06/18 08:49 10:06 10:06 WBC RBC Hgb Hct MCV MCH MCHC RDW Plt Count MPV Absolute Neuts (auto) Neutrophils % Lymphocytes % Monocytes % Eosinophils % Basophils % Nucleated RBC % PT with INR 10.80 INR 0.92 PTT (Actin FS) Sodium 141 Potassium 4.5 Chloride 97 L Carbon Dioxide 38 H Anion Gap 7 L BUN 35.1 H Creatinine 4.7 H Est GFR (CKD-EPI)AfAm 8.97 Est GFR (CKD-EPI)NonAf 7.74 POC Glucometer Random Glucose 88 Lactic Acid 1.3 Calcium 10.2 H Magnesium Total Bilirubin AST ALT Alkaline Phosphatase Creatine Kinase Troponin I B-Natriuretic Peptide Total Protein Albumin Blood Type Antibody Screen Active Medications Generic Name Dose Route Start Last Admin Trade Name Shubham PRN Reason Stop Dose Admin Albuterol/Ipratropium 1 amp 11/06/18 04:26 Duoneb - NEB RQID PRN SHORT OF BREATH/WHEEZING Hydromorphone HCl 1 mg 11/06/18 11:51 Dilaudid Injection - IVPUSH Q4H PRN PAIN LEVEL 6-10 Sodium Chloride 1,000 mls @ 50 mls/hr 11/06/18 12:00 Normal Saline - IV 11/07/18 11:47 ASDIR [facility] Insulin Aspart 1 vial 11/06/18 11:47 Novolog Vial Sliding Scale - SQ Q6HPO [facility] Protocol Metoprolol Tartrate 5 mg 11/06/18 11:49 Lopressor Injection - IVPUSH Q6H PRN HYPERTENSION Pantoprazole Sodium 40 mg 11/06/18 12:00 Protonix Iv IVPUSH DAILY [facility] ASSESSMENT/PLAN: ATTENDING PHYSICIAN STATEMENT I saw and evaluated the patient. I reviewed the resident's note and discussed the case with the resident. I agree with the resident's findings and plan as documented. SUBJECTIVE: OBJECTIVE: ASSESSMENT AND PLAN:
[2018-11-06] MEDS ORDERED: SODIUM CHLORIDE 1,000 ML IV SCH (12:00)
[2018-11-06] MEDS: INSULIN SLIDING SCALE (NOVOLOG) 1 VIAL SQ SCH ×3 (13:18→23:41)
[2018-11-06] MEDS ORDERED: PANTOPRAZOLE SODIUM 40 MG VIAL ONE (13:29)
[2018-11-06] MEDS: PANTOPRAZOLE SODIUM 40 MG VIAL IVPUSH SCH (13:37)
--- NOTE | 2018-11-06 14:05 | EKG ---
Test Reason : Blood Pressure : / mmHG Vent. Rate : 094 BPM Atrial Rate : 094 BPM P-R Int : 184 ms QRS Dur : 092 ms QT Int : 350 ms P-R-T Axes : 080 065 079 degrees QTc Int : 437 ms NORMAL SINUS RHYTHM WITH SINUS ARRHYTHMIA VOLTAGE CRITERIA FOR LEFT VENTRICULAR HYPERTROPHY POOR R WAVE PROGRESSION Confirmed by MAMIE VARGAS MD ([id number]) on 11/06/2018 2:05:08 PM Referred By: Confirmed By:MAMIE VARGAS MD
[2018-11-06] MEDS ORDERED: SODIUM CHLORIDE 250 ML IV PRN (15:39)
--- NOTE | 2018-11-06 15:39 | PN ---
Teaching Attending Note Name of Resident: Mayco Burnette (Nephrology) ATTENDING PHYSICIAN STATEMENT I saw and evaluated the patient. I reviewed the resident's note and discussed the case with the resident. I agree with the resident's findings and plan as documented. Renal Pt is an 88 year old female with pmhx of htn esrd dm and copd who presents to the ER with abdominal pain. She was found to have a partial SBO. Her last HD was yesterday. She says that the abd pain is improved today. pmhx esrd dm htn allergies egg family hx non contrib social hx neg ros abd pain Laboratory Tests 11/06/18 11/06/18 08:49 10:06 WBC 7.6 Hgb 12.4 Sodium 141 Potassium 4.5 Creatinine 4.7 H Current Medications Generic Name Dose Route Start Last Admin Trade Name Freq PRN Reason Stop Dose Admin Albuterol/Ipratropium 1 amp 11/06/18 04:26 Duoneb - NEB RQID PRN SHORT OF BREATH/WHEEZING Hydromorphone HCl 1 mg 11/06/18 11:51 Dilaudid Injection - IVPUSH Q4H PRN PAIN LEVEL 6-10 Sodium Chloride 1,000 mls @ 50 mls/hr 11/06/18 12:00 11/06/18 13:36 Normal Saline - IV 11/07/18 11:47 50 mls/hr [facility] Administration Insulin Aspart 1 vial 11/06/18 11:47 11/06/18 13:18 Novolog Vial Sliding Scale - SQ Not Given Q6HPO [facility] Protocol Metoprolol Tartrate 5 mg 11/06/18 11:49 Lopressor Injection - IVPUSH Q6H PRN HYPERTENSION Pantoprazole Sodium 40 mg 11/06/18 12:00 11/06/18 13:37 Protonix Iv IVPUSH 40 mg DAILY [facility] Administration Last Vital Signs Temp Pulse Resp BP Pulse Ox 99.1 F 94 H 17 150/75 100 11/06/18 10:48 11/06/18 10:48 11/06/18 10:48 11/06/18 10:48 11/06/18 10:48 cardio s1s2 pulm on nc gi soft ext trace edema neuro awake skin neg rash Impression 1. ESRD 2. HTN 3. HLD 4. COPD 5. DM 6. pos heb b core 7. partial sbo / abd pain 8. anemia 9. a-fib Plan - will arrange for HD tomorrow - will keep fluid balance even - follow up abd imaging for sbo - monitor bp
--- NOTE | 2018-11-06 19:23 | CONS ---
DATE OF CONSULTATION: 11/06/2018 REASON FOR CONSULTATION: Small bowel obstruction. Bilateral inguinal hernia. Possible left incarcerated inguinal hernia. BRIEF HISTORY: This is an 88-year-old female with multiple medical problems who presented with nausea and vomiting after dialysis, which she states often occurs. She had a CAT scan without oral contrast in the middle of the night, which suggested a small bowel obstruction, and it showed 2 inguinal hernias on both the right and the left, both containing bowel with the possibility of the left side being an area of incarceration and obstruction. There was no oral contrast, and the initial interpretation per the emergency physician is that it was unclear which hernia was the cause. At my request, a nasogastric tube was placed, and a 2nd CAT scan was done with oral contrast. That CAT scan showed no bowel obstruction and it showed nonincarcerated left and right inguinal hernias. The one on the left appeared initially to be stuck, now appeared to be mostly in, and the one on the right appeared to be soft and nonobstructive. The nasogastric tube was removed, and the patient has remained well. PAST MEDICAL HISTORY: Significant for dialysis, COPD, anemia, heart failure, asthma, atrial fibrillation that she takes Eliquis, as well as diabetes. ALLERGIES: EGGS. MEDICATION: She is on multiple medications, of note are Eliquis, Imdur, hydralazine, insulin, metoprolol, Zofran, telmisartan. PAST SURGICAL HISTORY: Includes craniotomy. No abdominal surgery. SOCIAL HISTORY: Positive for quitting tobacco. Negative for alcohol. REVIEW OF SYSTEMS: GENERAL: Denies fatigue. CARDIAC: Denies chest pain. RESPIRATORY: Denies shortness of breath. GASTROINTESTINAL: Currently no pain. GENITOURINARY: Denies dysuria. MUSCULOSKELETAL: Admits arthritic pain. PSYCHIATRIC: Denies depression. PHYSICAL EXAMINATION: GENERAL: This is a thin, 88-year-old female in no distress. However, she is on oxygen, nasal cannula. HEAD: Normocephalic, sclerae anicteric. NECK: Supple. CHEST: Clear. ABDOMEN: Soft. She has a completely reduced inguinal hernia on the left, which was small, and a moderate inguinal hernia on the right which is reducible. She had no surgical scars. No apparent femoral hernias. EXTREMITIES: Trace edema. LABORATORY: White blood cell count was normal. Her chemistries are consistent with renal failure. IMAGING: As in HPI. ASSESSMENT: This is an 88-year-old female with multiple medical problems involving kidneys, heart and lungs. She is also fully anticoagulated and she had bilateral inguinal hernias. It is possible that the left inguinal hernia was incarcerated but self reduced . It is also possible that her inguinal hernias are innocent of causing her symptoms this admission, and perhaps this was enteritis or reaction to dialysis. In either event, there is no current emergency . The nasogastric tube has been removed. Patient can start on liquid diet tomorrow and likely be discharged. If she wishes to consider having these hernias repaired electively, she would need an extensive medical optimization, evaluated by cardiology, pulmonary, and renal, and then could consider repair of these hernias. Patient's life expectancy is likely 2 years, and it is unclear if benefit of surgery would outweigh the risks. DO TERRIE SEARS/[id number]
[2018-11-07] MEDS ORDERED: HALOPERIDOL LACTATE 5 MG/ML IM ONE ×2 (05:59→10:00)
[2018-11-07] MEDS: INSULIN SLIDING SCALE (NOVOLOG) 1 VIAL SQ SCH (07:46)
--- NOTE | 2018-11-07 08:37 | PN ---
Progress Note (short form) - Note Progress Note: yardage caller resident paged to evaluate physically combative patient attempting to leave her room. Upon arrival patient outside of her room verbally and physically agitated towards nursing staff. Verbal efforts attempted to calm patient and communicate patient's concerns; [employer] phone was used to access [employer] security tester, however patient refusing to use security tester phone. Patient's daughter called in attempt to re-orient patient, however unable to re- orient the patient. Security nichole called to bedside. Haldol 5mg IV ordered, however nursing staff unable to administer as patient remains combative. After repeated attempts to verbally re-orient patient, she appears more calm, however still refusing to return to her room. Patient continues to be monitored by nursing staff. Case discussed with Dr. Castle, and Nursing Machine Printer. Events discussed with primary team attending torey.
[2018-11-07] MEDS ORDERED: HYDROmorphone HCl 2 MG/ML VIAL IVPUSH PRN (10:00)
[2018-11-07] MEDS ORDERED: hydrALAZINE HCL 20 MG/ML VIAL IVPUSH ONE (11:30)
--- NOTE | 2018-11-07 11:43 | PN ---
Physical Exam: SUBJECTIVE: Patient seen and examined; overnight events noted. Psychiatry consult pending. Hypotension during HD; noted order 250cc NS bolus. Now 140-160. Under 160 acceptable. Will monitor. Discussed with Dr. Orellana; he can followup with him as OP if she desires surgery. From a surgical perspective he states that she may be discharged if she tolerates PO. ROS unreliable OBJECTIVE: Vital Signs Period Temp Pulse Resp BP Sys/Betancourt Pulse Ox Last 24 Hr 97.8 F-98.8 F 54-100 16-22 149-179/72-102 95-100 GENERAL: The patient is awake, alert, and fully oriented, in no acute distress. HEAD: Normal with no signs of trauma. EYES: PERRL, extraocular movements intact, sclera anicteric, conjunctiva clear. No ptosis. ENT: Ears normal, nares patent, oropharynx clear without exudates, moist mucous membranes. NECK: Trachea midline, full range of motion, supple. LUNGS: Breath sounds equal, clear to auscultation bilaterally, no wheezes, no crackles, no accessory muscle use. HEART: Regular rate and rhythm, S1, S2 without murmur, rub or gallop. ABDOMEN: Soft, nontender, improved distention, reduced but positive BS EXTREMITIES: 2+ pulses, warm, well-perfused, no edema. NEUROLOGICAL: Cranial nerves II through XII grossly intact. Normal speech but in creole, gait not observed. PSYCH: Agitation from overnight improved; no active hallucinations. SKIN: Warm, dry, normal turgor, no rashes or lesions noted Laboratory Results - last 24 hr 11/06/18 11/06/18 11/06/18 13:15 18:33 23:35 POC Glucometer 94 100 82 Active Medications Generic Name Dose Route Start Last Admin Trade Name Freq PRN Reason Stop Dose Admin Albuterol/Ipratropium 1 amp 11/06/18 04:26 Duoneb - NEB RQID PRN SHORT OF BREATH/WHEEZING Sodium Chloride 1,000 mls @ 50 mls/hr 11/06/18 12:00 11/06/18 13:36 Normal Saline - IV 11/07/18 11:47 50 mls/hr ASDIR FORREST Administration Sodium Chloride 250 mls @ 3,000 mls/hr 11/06/18 15:39 Normal Saline - IV 11/07/18 15:39 PRN PRN Hypotension during Dialysis Metoprolol Tartrate 5 mg 11/06/18 11:49 Lopressor Injection - IVPUSH Q6H PRN HYPERTENSION Pantoprazole Sodium 40 mg 11/06/18 12:00 11/06/18 13:37 Protonix Iv IVPUSH 40 mg DAILY [facility] Administration ASSESSMENT/PLAN: Presents with partial SBO; now with +BS. Discussing BM with nursing. Cleared by sgy if tolerating PO but developed severe agitation. Having psych see to recommend any adjustments given overnight events. # SBO 2/2 b/l inguinal hernia, L-sided transition point (advance; DC if tolerating diet from surgical perspective. May followup with Dr. Orellana OP if she desires surgery). # Dementia with behavioral disturbance (As documented overnight; somewhat improved now. Consulting psychiatry; monitor QTc (AM EKG ordered if haldol continues to be used. Will consider seroquel qHS.) # ESRD on HD (Given 250cc bolus per nephro with hypotension at HD; management per nephro. FU post HD labs, QD BMP, Mg, phos. Strict is and os; DC IVF when on PO) # HTN (160s now; monitor. If persistently >160 will give PRN hydralazine but given that hypotensive this AM will be cautious) # HLD (Monitor; OP FLP resume statin PRN) # DM (Holding SSI as 80-110 and not eating; if >200 resume) # COPD hx (Monitor, no exacerbation) # Atrial fibrillation (IV to PO metoprolol for rate control [will resume home dose] when taking PO; prior AC recs) # Anemia (Chronic, monitor) Code status unchanged Dispo: Pending psych consult, tolerating diet. Will have PT/CM see to delineate if will require placement. Visit type - Emergency Visit Emergency Visit: No - New Patient This patient is new to me today: No - Critical Care Critical Care patient: No
[2018-11-07] MEDS ORDERED: SEVELAMER CARBONATE 800 MG TAB (FP) PO SCH (12:00)
--- NOTE | 2018-11-07 12:33 | PN ---
Progress Note (short form) - Note Progress Note: RENAL Pt is awake and alert currently on hemodialysis appears comfortable Last Vital Signs Temp Pulse Resp BP Pulse Ox 98.8 F 98 H 18 135/79 95 11/07/18 09:55 11/07/18 12:00 11/07/18 12:00 11/07/18 12:00 11/07/18 01:17 lungs clear cvs s1s2 rr abd soft ext no edema neuro confused per daughter CBC, BMP 11/06/18 08:49 11/06/18 10:06 Current Medications Generic Name Dose Route Start Last Admin Trade Name Freq PRN Reason Stop Dose Admin Albuterol/Ipratropium 1 amp 11/06/18 04:26 Duoneb - NEB RQID PRN SHORT OF BREATH/WHEEZING Amlodipine Besylate 10 mg 11/08/18 10:00 Norvasc - PO DAILY [facility] Atorvastatin Calcium 20 mg 11/07/18 22:00 Lipitor - PO HS [facility] Sodium Chloride 250 mls @ 3,000 mls/hr 11/06/18 15:39 Normal Saline - IV 11/07/18 15:39 PRN PRN Hypotension during Dialysis Isosorbide Mononitrate 30 mg 11/08/18 10:00 Imdur - PO DAILY [facility] Metoprolol Succinate 100 mg 11/08/18 10:00 Toprol Xl - PO DAILY [facility] Non-Formulary Medication 1 each 11/07/18 11:45 Fluticasone/Umeclidin/Vilanter [Trelegy Ellipta 100-62.5-25] IH DAILY [facility] Pantoprazole Sodium 40 mg 11/06/18 12:00 11/06/18 13:37 Protonix Iv IVPUSH 40 mg DAILY [facility] Administration Ranolazine 500 mg 11/07/18 11:45 Ranexa - PO BID [facility] Sevelamer Carbonate 800 mg 11/07/18 12:00 Renvela - PO TIDCM [facility] Valsartan 320 mg 11/08/18 10:00 Diovan - PO DAILY [facility] IMPRESSION 1. ESRD 2. HTN 3. HLD 4. COPD 5. DM 6. pos heb b core 7. partial sbo / abd pain 8. anemia 9. a-fib Plan continue hd tiw surgical follow up of sbo dc sevelamer given its association with fecal impaction and intestinal obstruction MV
[2018-11-07 13:09] LABS: BASO % 0.3 % (0-2.0); EOS % 2.9 % (0-4.5); HEMATOCRIT 30.6 % (32.4-45.2); HEMOGLOBIN 10.1 GM/dL (10.7-15.3); LYMPH % 25.8 % (8-40); MCH 27.2 pg (25.7-33.7); MEAN CELL VOLUME 82.3 fl (80-96); MEAN PLT VOLUME 8.7 fl (7.5-11.1); MONO % 7.5 % (3.8-10.2); NEUT % 63.5 % (42.8-82.8); PLATELET COUNT 193 K/MM3 (134-434); RBC 3.71 M/mm3 (3.60-5.2); RDW 15.1 % (11.6-15.6); WHITE BLOOD COUNT 4.5 K/mm3 (4.0-10.0)
[2018-11-07 13:47] LABS: CALCIUM 8.3 mg/dL (8.5-10.1); CREATININE 1.5 mg/dL (0.55-1.3); MAGNESIUM 1.9 mg/dL (1.8-2.4); POTASSIUM 3.2 mmol/L (3.5-5.1)
[2018-11-07 13:55] LABS: PHOSPHOROUS 1.1 mg/dL (2.5-4.9)
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
[2018-11-07] MEDS ORDERED: PT OWN MED DRAWER 7, Y5N ONE ×3 (14:53→20:15)
[2018-11-07] MEDS: RANOLAZINE E.R. 500 MG TABLET (FP) PO SCH ×2 (15:03→21:00)
[2018-11-07] MEDS: PANTOPRAZOLE SODIUM 40 MG VIAL IVPUSH SCH (15:03)
[2018-11-07] MEDS ORDERED: NAPH,MB-DB/K PH,MBDB POWDER PACKET PO ONE (15:06)
[2018-11-07] MEDS: ATORVASTATIN CA 20 MG TABLET (FP) PO SCH (21:00)
[2018-11-07] MEDS: OLANZapine 5 MG TABLET PO SCH (21:00)
[2018-11-08 07:41] LABS: BASO % 0.3 % (0-2.0); EOS % 5.4 % (0-4.5); HEMATOCRIT 33.3 % (32.4-45.2); HEMOGLOBIN 10.8 GM/dL (10.7-15.3); LYMPH % 35.1 % (8-40); MCH 27.6 pg (25.7-33.7); MCHC 32.5 g/dl (32.0-36.0); MEAN CELL VOLUME 85.1 fl (80-96); MEAN PLT VOLUME 9.3 fl (7.5-11.1); NEUT % 46.2 % (42.8-82.8); PLATELET COUNT 194 K/MM3 (134-434); RBC 3.92 M/mm3 (3.60-5.2); RDW 15.7 % (11.6-15.6); WHITE BLOOD COUNT 4.6 K/mm3 (4.0-10.0)
[2018-11-08 07:58] LABS: CALCIUM 8.9 mg/dL (8.5-10.1); CREATININE 3.8 mg/dL (0.55-1.3); MAGNESIUM 2.2 mg/dL (1.8-2.4); PHOSPHOROUS 4.6 mg/dL (2.5-4.9); POTASSIUM 4.5 mmol/L (3.5-5.1)
--- NOTE | 2018-11-08 09:13 | PN ---
Progress Note (short form) - Note Progress Note: RENAL Pt is awake and alert appears comfortable Last Vital Signs Temp Pulse Resp BP Pulse Ox 98.8 F 89 19 156/73 100 11/08/18 06:00 11/08/18 06:00 11/08/18 06:00 11/08/18 06:00 11/07/18 21:00 lungs clear cvs s1s2 rr abd soft ext no edema neuro awake CBC, BMP 11/08/18 06:00 11/08/18 06:00 Current Medications Generic Name Dose Route Start Last Admin Trade Name Freq PRN Reason Stop Dose Admin Albuterol/Ipratropium 1 amp 11/06/18 04:26 Duoneb - NEB RQID PRN SHORT OF BREATH/WHEEZING Amlodipine Besylate 10 mg 11/08/18 10:00 Norvasc - PO DAILY [facility] Atorvastatin Calcium 20 mg 11/07/18 22:00 11/07/18 21:00 Lipitor - PO 20 mg HS [facility] Administration Sodium Chloride 250 mls @ 3,000 mls/hr 11/06/18 15:39 Normal Saline - IV 11/07/18 15:39 PRN PRN Hypotension during Dialysis Isosorbide Mononitrate 30 mg 11/08/18 10:00 Imdur - PO DAILY [facility] Metoprolol Succinate 100 mg 11/08/18 10:00 Toprol Xl - PO DAILY [facility] Non-Formulary Medication 1 each 11/07/18 11:45 Fluticasone/Umeclidin/Vilanter [Trelegy Ellipta 100-62.5-25] IH DAILY [facility] Olanzapine 5 mg 11/07/18 22:00 11/07/18 21:00 Zyprexa - PO 5 mg HS [facility] Administration Ranolazine 500 mg 11/07/18 11:45 11/07/18 21:00 Ranexa - PO 500 mg BID [facility] Administration Valsartan 320 mg 11/08/18 10:00 Diovan - PO DAILY [facility] IMPRESSION 1. ESRD 2. HTN 3. HLD 4. COPD 5. DM 6. pos heb b core 7. partial sbo / abd pain 8. anemia 9. a-fib Plan continue hd tiw surgical follow up of sbo monitor phos off sevelamer, would try another non calcium based binder since her calcium was 11 on 11/06 MV
[2018-11-08] MEDS: ISOSORBIDE MONONITRATE 30 MG TAB.SR.24H (FP) PO SCH (10:35)
[2018-11-08] MEDS: VALSARTAN 160 MG TABLET (UD) PO SCH (10:36)
[2018-11-08] MEDS: amLODIPine BESYLATE 10 MG TABLET (FP) PO SCH (10:36)
[2018-11-08] MEDS: RANOLAZINE E.R. 500 MG TABLET (FP) PO SCH ×2 (10:36→21:01)
--- NOTE | 2018-11-08 18:10 | PN ---
Physical Exam: SUBJECTIVE: Patient seen and examined; no events overnight. Agitation improved ; appreciate psych input. Informed this AM daughter wanted to have procedure inpatient. Pending conversation with her this afternoon. As continued to wish for surgical opinion we opted to hold the eliquis and c/w SCDs as daughter is stating she would absolutely desire an inpatient procedure. No worsening pain; R-side reducible with no pain some discomfort on R-side. Was tolerating fulls but still no BM. 10 sys ROS done and negative aside from HPI OBJECTIVE: Vital Signs Period Temp Pulse Resp BP Sys/Betancourt Pulse Ox Last 24 Hr 97.8 F-98.8 F 84-90 18-20 140-172/63-89 100-100 Laboratory Results - last 24 hr 11/07/18 11/08/18 11/08/18 10:00 06:00 06:00 WBC 4.6 RBC 3.92 Hgb 10.8 Hct 33.3 MCV 85.1 MCH 27.6 MCHC 32.5 RDW 15.7 H Plt Count 194 MPV 9.3 Absolute Neuts (auto) 2.1 Neutrophils % 46.2 D Lymphocytes % 35.1 D Monocytes % 13.0 H Eosinophils % 5.4 H D Basophils % 0.3 Nucleated RBC % 0 PTT (Actin FS) Sodium 141 Potassium 4.5 Chloride 101 Carbon Dioxide 38 H Anion Gap 2 L BUN 17.0 Creatinine 3.8 H Est GFR (CKD-EPI)AfAm 11.60 Est GFR (CKD-EPI)NonAf 10.01 Random Glucose 78 Calcium 8.9 Phosphorus 4.6 Magnesium 2.2 Hep Bs Antigen Negative Hep C Ab Diagnostic <0.1 11/08/18 09:05 WBC RBC Hgb Hct MCV MCH MCHC RDW Plt Count MPV Absolute Neuts (auto) Neutrophils % Lymphocytes % Monocytes % Eosinophils % Basophils % Nucleated RBC % PTT (Actin FS) 39.7 H Sodium Potassium Chloride Carbon Dioxide Anion Gap BUN Creatinine Est GFR (CKD-EPI)AfAm Est GFR (CKD-EPI)NonAf Random Glucose Calcium Phosphorus Magnesium Hep Bs Antigen Hep C Ab Diagnostic Active Medications Generic Name Dose Route Start Last Admin Trade Name Freq PRN Reason Stop Dose Admin Albuterol/Ipratropium 1 amp 11/06/18 04:26 Duoneb - NEB RQID PRN SHORT OF BREATH/WHEEZING Amlodipine Besylate 10 mg 11/08/18 10:00 11/08/18 10:36 Norvasc - PO 10 mg DAILY [facility] Administration Atorvastatin Calcium 20 mg 11/07/18 22:00 11/07/18 21:00 Lipitor - PO 20 mg HS [facility] Administration Sodium Chloride 250 mls @ 3,000 mls/hr 11/06/18 15:39 Normal Saline - IV 11/07/18 15:39 PRN PRN Hypotension during Dialysis Isosorbide Mononitrate 30 mg 11/08/18 10:00 11/08/18 10:35 Imdur - PO 30 mg DAILY [facility] Administration Metoprolol Succinate 100 mg 11/08/18 10:00 11/08/18 10:36 Toprol Xl - PO 100 mg DAILY [facility] Administration Non-Formulary Medication 1 each 11/07/18 11:45 Fluticasone/Umeclidin/Vilanter [Trelegy Ellipta 100-62.5-25] IH DAILY [facility] Olanzapine 5 mg 11/07/18 22:00 11/07/18 21:00 Zyprexa - PO 5 mg HS [facility] Administration Ranolazine 500 mg 11/07/18 11:45 11/08/18 10:36 Ranexa - PO 500 mg BID [facility] Administration Valsartan 320 mg 11/08/18 10:00 11/08/18 10:36 Diovan - PO 320 mg DAILY [facility] Administration ASSESSMENT/PLAN: Presents with partial SBO; now with +BS. Discussing BM with nursing. Cleared by sgy if tolerating PO but daughter is insisting on further inpatent assessment and pending meeting with me. Will discuss with family, patient, and her surgeon. # SBO 2/2 b/l inguinal hernia, L-sided transition point (advance; DC if tolerating diet from surgical perspective. May followup with Dr. Orellana OP if she desires surgery. Meet with daughter regarding requests. R-side benign with some tenderness on L but reducible without issues). # Dementia with behavioral disturbance (Much improved; follow psych recs) # ESRD on HD (Nephrology following. Careful fluid management. QD BMP, Mg, phos. Strict is and os; DC IVF when on PO) # HTN (160s now; monitor. If persistently >160 will give PRN hydralazine but given that hypotensive this AM will be cautious) # HLD (Monitor; OP FLP resume statin PRN) # DM (Holding SSI as 80-110 and not eating; if >200 resume) # COPD hx (Monitor, no exacerbation) # Atrial fibrillation (IV to PO metoprolol for rate control [will resume home dose] when taking PO; prior AC recs) # Anemia (Chronic, monitor) Code status unchanged Dispo: Pending family meeting and discussion with surgical team Visit type - Emergency Visit Emergency Visit: No - New Patient This patient is new to me today: No - Critical Care Critical Care patient: No
--- NOTE | 2018-11-08 18:36 | PN ---
Progress Note (short form) - Note Progress Note: Discussed with daughter. States she wants second opinion as "if something needs to be done she would like it done inpaient." Discussed with her surgeon. Will find willing consult to provide surgical eval per family request. Visit type - Emergency Visit Emergency Visit: No - New Patient This patient is new to me today: No - Critical Care Critical Care patient: No
[2018-11-08 19:26] LABS: INR 0.9 (0.83-1.09); PROTHROMBIN TIME (PATIENT) 10.6 SEC (9.7-13.0)
[2018-11-08] MEDS ORDERED: PT OWN MED DRAWER 7, Y5N ONE (20:54)
[2018-11-08] MEDS: OLANZapine 5 MG TABLET PO SCH (21:01)
[2018-11-08] MEDS: ATORVASTATIN CA 20 MG TABLET (FP) PO SCH (21:01)
[2018-11-09 07:55] LABS: HEMATOCRIT 32.2 % (32.4-45.2); HEMOGLOBIN 10.3 GM/dL (10.7-15.3); MCH 27.3 pg (25.7-33.7); MEAN CELL VOLUME 85.2 fl (80-96); MEAN PLT VOLUME 9.6 fl (7.5-11.1); PLATELET COUNT 202 K/MM3 (134-434); RBC 3.78 M/mm3 (3.60-5.2); RDW 15.7 % (11.6-15.6); WHITE BLOOD COUNT 5.1 K/mm3 (4.0-10.0)
[2018-11-09 08:00] LABS: BLOOD UREA NITROGEN 28.2 mg/dL (7-18); CREATININE 5.1 mg/dL (0.55-1.3); MAGNESIUM 2.1 mg/dL (1.8-2.4); PHOSPHOROUS 5.2 mg/dL (2.5-4.9); POTASSIUM 4.8 mmol/L (3.5-5.1)
--- NOTE | 2018-11-09 08:49 | CONSULT ---
- Consultation REQUESTING PROVIDER: Juany MIDDLETON CONSULT REQUEST: We have been asked to surgically evaluate this patient for b/l inguinal hernias PCP:Prabhjot Harrington MD HISTORY OF PRESENT ILLNESS: [facility] admitted 11/06/18 w/n/v/and left LLQ abdominal pain; w/u reveled SBO secondary to an incarcerated LIH which ? reduced ? spontaneously and bowel function returned; patient in addition has a RIH which is reducible; she was seen by another surgical services asst who advised outpatient elective repair h/e the family is requesting surgery be done while she is here; I was asked to Consult as a second opinion and take over the case at the families request. PMHx: ESRD/HLD/IDDM/HTN PSHx: none Home Medications Medication Instructions Recorded Apixaban [Eliquis -] 2.5 mg PO BID tablet 06/13/18 Isosorbide Mononitrate [Imdur -] 30 mg PO DAILY tab.sr.24h 06/13/18 Sevelamer Carbonate [Renvela -] 800 mg PO TIDCM tab 06/13/18 Alendronate Sodium [Binosto] 70 mg PO DAILY 11/05/18 Atorvastatin Ca [Lipitor] 20 mg PO HS 11/05/18 Esomeprazole Magnesium 20 mg PO DAILY 11/05/18 Fluticasone/Umeclidin/Vilanter 1 each IH DAILY 11/05/18 [Trelegy Ellipta 100-62.5-25] Hydralazine HCl 100 mg PO PRN 11/05/18 Insulin Glargine,Hum.rec.anlog 10 unit SQ DAILY 11/05/18 [Toucelia Solostar] Metoprolol Succinate [Toprol XL -] 100 mg PO DAILY 11/05/18 Ondansetron [Zofran *Odt*] 4 mg SL DAILY 11/05/18 Ranolazine [Ranolazine ER] 500 mg PO BID 11/05/18 Telmisartan/Amlodipine 1 each PO DAILY 11/05/18 [Telmisartan-Amlodipine 80-10] Allergies Allergy/AdvReac Type Severity Reaction Status Date / Time egg AdvReac Vomiting Verified 11/05/18 22:59 REVIEW OF SYSTEMS: she philip not speak [place]; info obtained from chart review. PHYSICAL EXAM: GENERAL: Awake, alert, and fully oriented, in no acute distress. HEAD: Normal with no signs of trauma. EYES: sclera anicteric, conjunctiva clear. NECK: Normal ROM, supple without lymphadenopathy, JVD, or masses. ABDOMEN: Soft, nontender, not distended, normoactive bowel sounds, no guarding, no rebound, no masses. No organomegaly. Reducible R>LIH; no scars MUSCULOSKELETAL: Normal ROM at all joints. No bony deformities or tenderness. No CVA tenderness. UPPER EXTREMITIES: 2+ pulses, warm, well-perfused. No cyanosis. Cap refill <2 seconds. No peripheral edema. HD LUE LOWER EXTREMITIES: 2+ pulses, warm, well-perfused. No calf tenderness. No peripheral edema. NEUROLOGICAL: Normal speech, gait not observed. PSYCH: Cooperative. Good eye contact. Appropriate mood and affect. SKIN: Warm, dry, normal turgor, no rashes or lesions noted. Vital Signs Temperature 98.4 F 11/09/18 06:19 Pulse Rate 98 H 11/09/18 06:19 Respiratory Rate 22 H 11/09/18 06:19 Blood Pressure 155/66 11/09/18 06:19 O2 Sat by Pulse Oximetry (%) 100 11/08/18 21:00 Lab Results WBC 5.1 K/mm3 (4.0-10.0) 11/09/18 06:45 RBC 3.78 M/mm3 (3.60-5.2) 11/09/18 06:45 Hgb 10.3 GM/dL (10.7-15.3) L 11/09/18 06:45 Hct 32.2 % (32.4-45.2) L 11/09/18 06:45 MCV 85.2 fl (80-96) 11/09/18 06:45 MCHC 32.0 g/dl (32.0-36.0) 11/09/18 06:45 RDW 15.7 % (11.6-15.6) H 11/09/18 06:45 Plt Count 202 K/MM3 (134-434) 11/09/18 06:45 Sodium 140 mmol/L (136-145) 11/09/18 06:45 Potassium 4.8 mmol/L (3.5-5.1) 11/09/18 06:45 Chloride 99 mmol/L (98-107) 11/09/18 06:45 Carbon Dioxide 36 mmol/L (21-32) H 11/09/18 06:45 Anion Gap 5 MMOL/L (8-16) L 11/09/18 06:45 BUN 28.2 mg/dL (7-18) H 11/09/18 06:45 Creatinine 5.1 mg/dL (0.55-1.3) H 11/09/18 06:45 Random Glucose 78 mg/dL (74-106) 11/09/18 06:45 Calcium 9.0 mg/dL (8.5-10.1) 11/09/18 06:45 Blood Type A POSITIVE 11/08/18 18:50 Antibody Screen Negative 11/08/18 18:50 INR 0.90 (0.83-1.09) 11/08/18 18:50 CT scan a/p reviwed IMP: BIH's; left s/p incarceration and causing SBO now resolved. PLAN: Although patient is high risk I believe repair now is indicated of the left side and should consider b/l repair on this admission as opposed to waiting until the hernia on the left incarcerates again and she develops an SBO and possible compromised bowel; will d/w the patients daughter who is her HCP. Lucas Waggoner MD FACS
[2018-11-09] MEDS ORDERED: SEVOFLURANE 250 ML BTL ONE (09:15)
[2018-11-09] MEDS ORDERED: LIDOCAINE HCL/PF 2% SDV 5ML VIAL ONE (09:19)
[2018-11-09] MEDS ORDERED: ceFAZolin SODIUM 1 GM VIAL ONE (09:19)
[2018-11-09] MEDS ORDERED: DEXAMETHASONE SOD PHOSPHATE 4 MG/1 ML VIAL ONE (09:19)
[2018-11-09] MEDS ORDERED: SODIUM CHLORIDE 0.9% P/F 10 ML VIAL IJ ONE ×2 (09:19→09:25)
[2018-11-09] MEDS ORDERED: PROPOFOL 20 ML ONE (09:20)
[2018-11-09] MEDS ORDERED: SUCCINYLCHOLINE CHLORIDE 200 MG/10 ML SYRINGE ONE (09:21)
[2018-11-09] MEDS ORDERED: MIDAZOLAM HCL 2 MG/2 ML SINGLE DOSE VIAL ONE (09:21)
[2018-11-09] MEDS ORDERED: ROCURONIUM BROMIDE 50 MG/5 ML SYRINGE ONE (09:21)
[2018-11-09] MEDS ORDERED: BUPIVACAINE HCL/PF 0.25% (2.5MG/ML) 10 ML VIAL ONE (09:34)
[2018-11-09] MEDS ORDERED: DEXAMETHASONE SOD PHOSPHATE/PF 10 MG/ML SDV ONE (09:34)
[2018-11-09] MEDS ORDERED: LIDOCAINE HCL 1%, 10 MG/ML (20ML VIAL) ONE (09:36)
[2018-11-09] MEDS ORDERED: BENZOIN TINCTURE SWABSTICK TP ONE (09:36)
[2018-11-09] MEDS ORDERED: BUPIVACAINE HCL/PF 0.5% (5 MG/ML) 30 ML VIAL IJ ONE ×2 (09:36→10:50)
[2018-11-09] MEDS ORDERED: ceFAZolin SODIUM 1 GM VIAL IVPB ONE (10:50)
[2018-11-09] MEDS ORDERED: LIDOCAINE HCL 1%, 10 MG/ML (20ML VIAL) INF ONE (10:50)
[2018-11-09] MEDS ORDERED: EPHEDRINE SULFATE/0.9% NACL/PF 50 MG/10 ML SYRINGE NR ONE (11:22)
[2018-11-09] MEDS ORDERED: NEOSTIGMINE METHYLSULFATE 0.5 MG/ML - 10 ML MDV ONE (12:01)
[2018-11-09] MEDS ORDERED: GLYCOPYRROLATE 0.2 MG/1 ML VIAL ONE ×2 (12:01)
[2018-11-09] MEDS ORDERED: ONDANSETRON 4 MG/2 ML VIAL IVPUSH PRN ×2 (12:17→12:56)
[2018-11-09] MEDS ORDERED: ACETAMINOPHEN 1000 MG/100 ML VIAL (NON FORMULARY) IVPB ONE ×2 (12:18→12:56)
[2018-11-09] MEDS ORDERED: LACTATED RINGERS SOLUTION 1,000 ML IV SCH ×2 (12:30→12:56)
--- NOTE | 2018-11-09 12:30 | OP ---
Operative Note - Note: Operative Date: 11/09/18 Pre-Operative Diagnosis: bilateral inguinal hernias; left incarcerated Operation: repair b/l inguinal hernias w/Parietex Pro Expressive Music Therapist mesh Findings: L> R inguinal hernias; left incarcerated reduced under anesthesia Surgeon: Lucas Waggoner Records Management Specialist: Marcelino Veliz II Anesthesiologist/ARCHITECT MARINE: Octavio Olivo Anesthesia: General (w/ TAP block.) Specimens Removed: b/l round ligaments and left lipoma Estimated Blood Loss (mls): 15
[2018-11-09] MEDS ORDERED: ALBUTEROL SO4 2.5/IPRATROPIUM 0.5 INH SOL 3 ML VIAL.NEB. NEB PRN (12:56)
[2018-11-09] MEDS ORDERED: ACETAMINOPHEN WITH CODEINE 300MG/30MG TABLET PO PRN (13:03)
--- NOTE | 2018-11-09 14:14 | SURG ---
Surgery Community Cultural Development Officer Note Community Cultural Development Officer: ROCÍO Perez Date of Service: 11/09/18 Diagnosis: Bilateral inguinal hernias Procedure: Repair of left incarcerated inguinal hernia with mesh. Repair of right inguinal hernia with mesh I was present for the entirety of the operative procedure. For further detail, please refer to operative report.
--- NOTE | 2018-11-09 15:24 | PN ---
Progress Note, Physician History of Present Illness: Pt seen and examined at bedside. She is awake and alert. She had her hernias repaired today. - Current Medication List Current Medications: Active Medications Acetaminophen/Codeine Phosphate (Tylenol # 3 -) 1 tab PO Q6H PRN PRN Reason: PAIN LEVEL 6-10 Albuterol/Ipratropium (Duoneb -) 1 amp NEB RQID PRN PRN Reason: SHORT OF BREATH/WHEEZING Amlodipine Besylate (Norvasc -) 10 mg PO DAILY [facility] Atorvastatin Calcium (Lipitor -) 20 mg PO HS [facility] Fentanyl (Sublimaze Injection -) 25 mcg IVPUSH Q5M PRN PRN Reason: PAIN-PACU ORDER X 4 DOSES ONLY Lactated Ringer's (Lactated Ringers Solution) 1,000 mls @ 75 mls/hr IV ASDIR [facility] Last Admin: 11/09/18 15:03 Dose: Not Given Isosorbide Mononitrate (Imdur -) 30 mg PO DAILY [facility] Metoprolol Succinate (Toprol Xl -) 100 mg PO DAILY [facility] Non-Formulary Medication (Fluticasone/Umeclidin/Vilanter [Trelegy Ellipta 100- 62.5-25]) 1 each IH DAILY [facility] Olanzapine (Zyprexa -) 5 mg PO HS [facility] Ondansetron HCl (Zofran Injection) 4 mg IVPUSH Q6H PRN PRN Reason: NAUSEA AND/OR VOMITING Ranolazine (Ranexa -) 500 mg PO BID [facility] Valsartan (Diovan -) 320 mg PO DAILY [facility] - Objective Vital Signs: Vital Signs Temperature 97.8 F 11/09/18 12:38 Pulse Rate 88 11/09/18 14:00 Respiratory Rate 14 11/09/18 14:00 Blood Pressure 168/76 11/09/18 14:00 O2 Sat by Pulse Oximetry (%) 98 11/09/18 14:00 Constitutional: Yes: Calm Eyes: Yes: Conjunctiva Clear HENT: Yes: Atraumatic Cardiovascular: Yes: S1, S2 Respiratory: Yes: CTA Bilaterally Gastrointestinal: Yes: Normal Bowel Sounds, Soft, Other (dressing in place) Genitourinary: Yes: WNL Musculoskeletal: Yes: WNL Extremities: Yes: WNL Edema: No Neurological: Yes: Oriented Psychiatric: Yes: Oriented Labs: CBC, BMP 11/09/18 06:45 11/09/18 06:45 INR, PTT INR 0.90 (0.83-1.09) 11/08/18 18:50 Problem List - Problems (1) ESRD (end stage renal disease) Code(s): N18.6 - END STAGE RENAL DISEASE Assessment/Plan Current Medications Generic Name Dose Route Start Last Admin Trade Name Freq PRN Reason Stop Dose Admin Acetaminophen/Codeine Phosphate 1 tab 11/09/18 13:03 Tylenol # 3 - PO Q6H PRN PAIN LEVEL 6-10 Albuterol/Ipratropium 1 amp 11/09/18 12:56 Duoneb - NEB RQID PRN SHORT OF BREATH/WHEEZING Amlodipine Besylate 10 mg 11/10/18 10:00 Norvasc - PO DAILY [facility] Atorvastatin Calcium 20 mg 11/09/18 22:00 Lipitor - PO HS [facility]CLUD[facility] Fentanyl 25 mcg 11/09/18 14:52 Sublimaze Injection - IVPUSH Q5M PRN PAIN-PACU ORDER X 4 DOSES ONLY Lactated Ringer's 1,000 mls @ 75 mls/hr 11/09/18 12:56 11/09/18 15:03 Lactated Ringers Solution IV Not Given ASDIR COUNT INCLUDES [facility] Isosorbide Mononitrate 30 mg 11/10/18 10:00 Imdur - PO DAILY [facility] Metoprolol Succinate 100 mg 11/10/18 10:00 Toprol Xl - PO DAILY [facility]CLUD[facility] Non-Formulary Medication 1 each 11/10/18 10:00 Fluticasone/Umeclidin/Vilanter [Trelegy Ellipta 100-62.5-25] IH DAILY COUNT [facility]CLUDES [facility] Olanzapine 5 mg 11/09/18 22:00 Zyprexa - PO HS [facility]CLUD[facility] Ondansetron HCl 4 mg 11/09/18 12:56 Zofran Injection IVPUSH Q6H PRN NAUSEA AND/OR VOMITING Ranolazine 500 mg 11/09/18 22:00 Ranexa - PO BID COUNT INCLUDES [facility] Valsartan 320 mg 11/10/18 10:00 Diovan - PO DAILY [facility]CLUDES [facility] Impression 1. ESRD 2. HTN 3. HLD 4. COPD 5. DM 6. pos heb b core 7. partial sbo / abd pain 8. anemia 9. a-fib Plan - HD tomorrow - s/p hernia repair - renal diet - surgery follow up - monitor bp
[2018-11-09] MEDS: RANOLAZINE E.R. 500 MG TABLET (FP) PO SCH ×2 (15:40→21:34)
[2018-11-09] MEDS: amLODIPine BESYLATE 10 MG TABLET (FP) PO SCH (15:40)
[2018-11-09] MEDS: ISOSORBIDE MONONITRATE 30 MG TAB.SR.24H (FP) PO SCH (15:40)
[2018-11-09] MEDS: VALSARTAN 160 MG TABLET (UD) PO SCH (15:40)
[2018-11-09] MEDS ORDERED: VALSARTAN 160 MG TABLET (UD) PO ONE (16:36)
[2018-11-09] MEDS ORDERED: ISOSORBIDE MONONITRATE 30 MG TAB.SR.24H (FP) PO ONE (16:36)
--- NOTE | 2018-11-09 19:01 | PN ---
Physical Exam: SUBJECTIVE: Patient seen and examined; to OR today. All questions answered. 10 sys ROS done and negative aside from HPI OBJECTIVE: Vital Signs Period Temp Pulse Resp BP Sys/Betancourt Pulse Ox Last 24 Hr 97.8 F-98.8 F 68-98 14-22 125-168/55-87 96-100 Laboratory Results - last 24 hr 11/08/18 11/08/18 11/08/18 18:50 18:50 19:01 WBC RBC Hgb Hct MCV MCH MCHC RDW Plt Count MPV PT with INR 10.60 INR 0.90 Sodium Potassium Chloride Carbon Dioxide Anion Gap BUN Creatinine Est GFR (CKD-EPI)AfAm Est GFR (CKD-EPI)NonAf POC Glucometer 147 Random Glucose Calcium Phosphorus Magnesium Blood Type A POSITIVE Antibody Screen Negative 11/09/18 11/09/18 11/09/18 06:16 06:45 06:45 WBC 5.1 RBC 3.78 Hgb 10.3 L Hct 32.2 L MCV 85.2 MCH 27.3 MCHC 32.0 RDW 15.7 H Plt Count 202 MPV 9.6 PT with INR INR Sodium 140 Potassium 4.8 Chloride 99 Carbon Dioxide 36 H Anion Gap 5 L BUN 28.2 H Creatinine 5.1 H Est GFR (CKD-EPI)AfAm 8.13 Est GFR (CKD-EPI)NonAf 7.01 POC Glucometer 88 Random Glucose 78 Calcium 9.0 Phosphorus 5.2 H Magnesium 2.1 Blood Type Antibody Screen 11/09/18 14:46 WBC RBC Hgb Hct MCV MCH MCHC RDW Plt Count MPV PT with INR INR Sodium Potassium Chloride Carbon Dioxide Anion Gap BUN Creatinine Est GFR (CKD-EPI)AfAm Est GFR (CKD-EPI)NonAf POC Glucometer 113 Random Glucose Calcium Phosphorus Magnesium Blood Type Antibody Screen Active Medications Generic Name Dose Route Start Last Admin Trade Name Freq PRN Reason Stop Dose Admin Acetaminophen/Codeine Phosphate 1 tab 11/09/18 13:03 Tylenol # 3 - PO Q6H PRN PAIN LEVEL 6-10 Albuterol/Ipratropium 1 amp 11/09/18 12:56 Duoneb - NEB RQID PRN SHORT OF BREATH/WHEEZING Amlodipine Besylate 10 mg 11/10/18 10:00 Norvasc - PO DAILY [facility] Atorvastatin Calcium 20 mg 11/09/18 22:00 Lipitor - PO HS [facility] Epoetin Nnamdi 3,000 unit 11/10/18 15:25 Procrit - IVPUSH 11/10/18 15:26 ONCE ONE Fentanyl 25 mcg 11/09/18 14:52 Sublimaze Injection - IVPUSH Q5M PRN PAIN-PACU ORDER X 4 DOSES ONLY Lactated Ringer's 1,000 mls @ 75 mls/hr 11/09/18 12:56 11/09/18 15:03 Lactated Ringers Solution IV Not Given ASDIR [facility] Sodium Chloride 250 mls @ 3,000 mls/hr 11/09/18 15:25 Normal Saline - IV 11/10/18 15:25 PRN PRN Hypotension during Dialysis Isosorbide Mononitrate 30 mg 11/10/18 10:00 Imdur - PO DAILY [facility] Metoprolol Succinate 100 mg 11/10/18 10:00 Toprol Xl - PO DAILY [facility] Non-Formulary Medication 1 each 11/10/18 10:00 Fluticasone/Umeclidin/Vilanter [Trelegy Ellipta 100-62.5-25] IH DAILY [facility] Olanzapine 5 mg 11/09/18 22:00 Zyprexa - PO HS [facility] Ondansetron HCl 4 mg 11/09/18 12:56 Zofran Injection IVPUSH Q6H PRN NAUSEA AND/OR VOMITING Ranolazine 500 mg 11/09/18 22:00 Ranexa - PO BID [facility] Valsartan 320 mg 11/10/18 10:00 Diovan - PO DAILY [facility] ASSESSMENT/PLAN:
[2018-11-09] MEDS: OLANZapine 5 MG TABLET PO SCH (21:34)
[2018-11-09] MEDS: ATORVASTATIN CA 20 MG TABLET (FP) PO SCH (21:34)
[2018-11-10] MEDS ORDERED: EPOETIN ALFA 3,000 UNIT/1 ML ML IVPUSH ONE (08:00)
[2018-11-10] MEDS ORDERED: SODIUM CHLORIDE 250 ML IV PRN (08:00)
--- NOTE | 2018-11-10 08:04 | PN ---
Progress Note (short form) - Note Progress Note: POD #1 s/p repair b/l inguinal hernias w/Parietex Pro Coal Sample Tester mesh Alert. Sitting on edge of bed. C/o mild incisional tenderness. Adequate pain control. Voiding spontaneously. Denies n/v/f/c, CP, SOB or NÚÑEZ. AVSS. Afeb. Gen: nad ABD: groin dressings c/d/i bilat. No hematoma. LE: soft. supple. nt. Problem List - Problems (1) Bilateral inguinal hernia Assessment/Plan: POD #1 Advance diet as tolerated. Cont OOB and ambulate No further surgical intervention. Cleared for dc from the surgical service. Patient post-op care outlined in the DISCHARGE PLAN tab. On behalf of Dr. Waggoner, thank you for the opportunity to participate in your patient's care. Code(s): K40.20 - BI INGUINAL HERNIA, W/O OBST OR GANGRENE, NOT SPCF RECUR (2) ESRD (end stage renal disease) on dialysis Assessment/Plan: HD per her normal schedule Code(s): N18.6 - END STAGE RENAL DISEASE; Z99.2 - DEPENDENCE ON RENAL DIALYSIS (3) COPD exacerbation Code(s): J44.1 - CHRONIC OBSTRUCTIVE PULMONARY DISEASE W (ACUTE) EXACERBATION (4) Diabetes Assessment/Plan: Finger stick checks ACHS Tight glycemic control Code(s): E11.9 - TYPE 2 DIABETES MELLITUS WITHOUT COMPLICATIONS Qualifiers: Diabetes mellitus type: type 2 Diabetes mellitus terminal superintendent insulin use: without terminal superintendent use Diabetes mellitus complication status: with kidney complications Diabetes mellitus complication detail: with chronic kidney disease Chronic kidney disease stage: on chronic dialysis Qualified Code(s) : E11.22 - Type 2 diabetes mellitus with diabetic chronic kidney disease; N18.6 - End stage renal disease; Z99.2 - Dependence on renal dialysis
[2018-11-10 08:54] LABS: HEMATOCRIT 29.2 % (32.4-45.2); HEMOGLOBIN 9.7 GM/dL (10.7-15.3); MCH 27.4 pg (25.7-33.7); MCHC 33.2 g/dl (32.0-36.0); MEAN CELL VOLUME 82.5 fl (80-96); MEAN PLT VOLUME 9.2 fl (7.5-11.1); PLATELET COUNT 230 K/MM3 (134-434); RBC 3.54 M/mm3 (3.60-5.2); RDW 15.9 % (11.6-15.6); WHITE BLOOD COUNT 7.6 K/mm3 (4.0-10.0)
[2018-11-10 09:14] LABS: BLOOD UREA NITROGEN 42.7 mg/dL (7-18); CALCIUM 9.1 mg/dL (8.5-10.1); CREATININE 6.7 mg/dL (0.55-1.3); POTASSIUM 4.5 mmol/L (3.5-5.1)
--- NOTE | 2018-11-10 09:57 | PN ---
Teaching Attending Note Name of Resident: Singh Reynoso ATTENDING PHYSICIAN STATEMENT I saw and evaluated the patient. I reviewed the resident's note and discussed the case with the resident. I agree with the resident's findings and plan as documented. SUBJECTIVE: OBJECTIVE: ASSESSMENT AND PLAN:
--- NOTE | 2018-11-10 09:58 | CONSULT ---
Admitting History and Physical - Primary Care Physician PCP: Prabhjot Harrington - Admission History of Present Illness: 88 year old female with a past medical history of ESRD (T,Th,Sat), COPD, anemia , asthma, CHF, DM, GERD, HTN, HLD who is admitted for abdominal pain and was found to have a partial SBO. s/p hernia repair Selected Entries 11/08/18 11/08/18 11/08/18 11:17 14:20 18:19 Breakfast 50% Diet Tolerated Fair Fair Fair Lunch 75% Supper 75% Temperature 11/09/18 11/09/18 11/09/18 06:19 10:00 12:38 Breakfast Diet Tolerated Lunch Supper Temperature 98.4 F 98.8 F 97.8 F 11/09/18 11/09/18 11/09/18 14:45 15:42 19:49 Breakfast Diet Tolerated Lunch Supper Temperature 97.8 F 97.8 F 98.1 F 11/09/18 11/10/18 11/10/18 22:00 01:12 06:00 Breakfast Diet Tolerated Lunch Supper Temperature 98.4 F 98 F 97.7 F 11/10/18 11/10/18 11/10/18 08:05 09:55 09:57 Breakfast 75% 75% Diet Tolerated Well Well Lunch Supper Temperature 97.8 F Laboratory Tests 11/10/18 08:15 WBC 7.6 Pt fed herself and tolerated diet well, per nursing. Pt seen in HD. Seen 06/2018-tolerated reg/thin liquid at that time. History Source: Medical Record Limitations to Obtaining History: Clinical Condition, Language Barrier - Past Medical History SHOP DIRECTOR: Yes: Dementia Cardiovascular: Yes: HTN Pulmonary: Yes: COPD, O2 Dependent, Pneumonia. No: Asthma, Pulmonary Embolus, Sleep Apnea Gastrointestinal: Yes: GERD Renal/: Yes: Renal Inusuff, Hemodialysis, Renal Calculi (maybe- she had flank pain) ...: No Endocrine: Yes: Diabetes Mellitus - Past Surgical History Past Surgical History: Yes: AV Fistula/Graft - Advance Directives Advance Directives: Yes: Health Care Proxy - Smoking History Smoking history: Former smoker Have you smoked in the past 12 months: No Aproximately how many cigarettes per day: 0 - Alcohol/Substance Use Hx Alcohol Use: No History - Admission Reason For Visit: SMALL BOWEL OBSTRUCTION - General Mental Status: Awake and Alert (Verbal/Creole. Confused? Speaking frequently, while drinking as well. Pt was confused during 06/2018 admission.) Attention: Intact - Hearing Hearing: Normal Hearing Aide: No With Patient: No Speech Evaluation - Communication Primary Language: KOREAN CREOLE - Speech Production Intelligibility: Yes: WNL - Speech Characteristics Voice Loudness: Normal Voice Pitch: Yes: Normal Voice Phonatory-based Quality: Yes: Normal Speech Pattern: Normal Speech Clarity: < 100% Nasal Resonance: Normal Articulation: Yes: Precise Rate of Speech: Intact - Swallow Evaluation/Bedside Assessment Current Nutritional Intake: Regular, Thin Liquids Dentition: Yes: Adequate Facial Symmetry at Rest: Symmetrical Facial Symmetry on Retraction: Symmetrical Facial Movement: Controlled Against Resistance Opening: Normal Against Resistance Closing: Normal Pucker Lips: Normal Smile: Normal Lingual Movement: Normal, Symmetric Lingual Speed of Movement: Normal Lingual Movement Strgth Against Opposition: Normal Lingual Movement Characteristics: Normal Velopharyngeal Movement: Normal Laryngeal Movement: Able to Palpate Labial Seal: WFL Oral Prep Time: WFL A-P Transit: WFL Timing of Swallow: WFL Coughing/Throat Clear: No Change in Voice: No Recommendations - Speech Evaluation, Impression/Plan Impression: Seen in HD. 3 oz water test (-). Pt tolerated regular diet for breakfast - Dysphagia Impressions/Plan Swallowing Skills: WFL Dysphagia Impressions: No Impairment *Silent aspiration: cannot be R/O at bedside Dysphagia Treatment Plan: Small Bites, Chin Tuck/Down, Safe Rate, 1/2 tsp. at a time, Elevate HOB during feed - Recommendations Diet Consistency: Regular Liquids: Thin Liquids
[2018-11-10] MEDS: amLODIPine BESYLATE 10 MG TABLET (FP) PO SCH (12:05)
[2018-11-10] MEDS: VALSARTAN 160 MG TABLET (UD) PO SCH (12:06)
[2018-11-10] MEDS: RANOLAZINE E.R. 500 MG TABLET (FP) PO SCH ×2 (12:06→23:37)
[2018-11-10] MEDS: ISOSORBIDE MONONITRATE 30 MG TAB.SR.24H (FP) PO SCH (12:07)
--- NOTE | 2018-11-10 13:08 | PN ---
Progress Note, Physician History of Present Illness: Pt seen and examined at bedside. She is tolerating HD. She denies shortness of breath. - Current Medication List Current Medications: Active Medications Acetaminophen/Codeine Phosphate (Tylenol # 3 -) 1 tab PO Q6H PRN PRN Reason: PAIN LEVEL 6-10 Albuterol/Ipratropium (Duoneb -) 1 amp NEB RQID PRN PRN Reason: SHORT OF BREATH/WHEEZING Amlodipine Besylate (Norvasc -) 10 mg PO DAILY [facility] Last Admin: 11/10/18 12:05 Dose: 10 mg Atorvastatin Calcium (Lipitor -) 20 mg PO HS [facility] Last Admin: 11/09/18 21:34 Dose: 20 mg Fentanyl (Sublimaze Injection -) 25 mcg IVPUSH Q5M PRN PRN Reason: PAIN-PACU ORDER X 4 DOSES ONLY Lactated Ringer's (Lactated Ringers Solution) 1,000 mls @ 75 mls/hr IV ASDIR [facility] Last Admin: 11/09/18 15:03 Dose: Not Given Isosorbide Mononitrate (Imdur -) 30 mg PO DAILY [facility] Last Admin: 11/10/18 12:07 Dose: 30 mg Metoprolol Succinate (Toprol Xl -) 100 mg PO DAILY [facility] Last Admin: 11/10/18 12:07 Dose: 100 mg Non-Formulary Medication (Fluticasone/Umeclidin/Vilanter [Trelegy Ellipta 100- 62.5-25]) 1 each IH DAILY [facility] Olanzapine (Zyprexa -) 5 mg PO HS [facility] Last Admin: 11/09/18 21:34 Dose: 5 mg Ondansetron HCl (Zofran Injection) 4 mg IVPUSH Q6H PRN PRN Reason: NAUSEA AND/OR VOMITING Ranolazine (Ranexa -) 500 mg PO BID [facility] Last Admin: 11/10/18 12:06 Dose: 500 mg Valsartan (Diovan -) 320 mg PO DAILY [facility] Last Admin: 11/10/18 12:06 Dose: 320 mg - Objective Vital Signs: Vital Signs Temperature 97.6 F 11/10/18 11:34 Pulse Rate 80 11/10/18 11:34 Respiratory Rate 16 11/10/18 11:34 Blood Pressure 171/79 H 11/10/18 11:34 O2 Sat by Pulse Oximetry (%) 97 11/10/18 09:00 Constitutional: Yes: Calm Eyes: Yes: Conjunctiva Clear HENT: Yes: Atraumatic Cardiovascular: Yes: S1, S2 Respiratory: Yes: CTA Bilaterally Gastrointestinal: Yes: Normal Bowel Sounds, Soft, Other (dressing in place) Genitourinary: Yes: WNL Musculoskeletal: Yes: WNL Edema: No Neurological: Yes: Oriented Psychiatric: Yes: Oriented Labs: CBC, BMP 11/10/18 08:15 11/10/18 08:15 INR, PTT INR 0.90 (0.83-1.09) 11/08/18 18:50 Problem List - Problems (1) ESRD (end stage renal disease) Code(s): N18.6 - END STAGE RENAL DISEASE Assessment/Plan Current Medications Generic Name Dose Route Start Last Admin Trade Name Freq PRN Reason Stop Dose Admin Acetaminophen/Codeine Phosphate 1 tab 11/09/18 13:03 Tylenol # 3 - PO Q6H PRN PAIN LEVEL 6-10 Albuterol/Ipratropium 1 amp 11/09/18 12:56 Duoneb - NEB RQID PRN SHORT OF BREATH/WHEEZING Amlodipine Besylate 10 mg 11/10/18 10:00 11/10/18 12:05 Norvasc - PO 10 mg DAILY [facility] Administration Atorvastatin Calcium 20 mg 11/09/18 22:00 11/09/18 21:34 Lipitor - PO 20 mg HS [facility] Administration Fentanyl 25 mcg 11/09/18 14:52 Sublimaze Injection - IVPUSH Q5M PRN PAIN-PACU ORDER X 4 DOSES ONLY Lactated Ringer's 1,000 mls @ 75 mls/hr 11/09/18 12:56 11/09/18 15:03 Lactated Ringers Solution IV Not Given ASDIR [facility] Isosorbide Mononitrate 30 mg 11/10/18 10:00 11/10/18 12:07 Imdur - PO 30 mg DAILY [facility] Administration Metoprolol Succinate 100 mg 11/10/18 10:00 11/10/18 12:07 Toprol Xl - PO 100 mg DAILY [facility] Administration Non-Formulary Medication 1 each 11/10/18 10:00 Fluticasone/Umeclidin/Vilanter [Trelegy Ellipta 100-62.5-25] IH DAILY [facility] Olanzapine 5 mg 11/09/18 22:00 11/09/18 21:34 Zyprexa - PO 5 mg HS [facility] Administration Ondansetron HCl 4 mg 11/09/18 12:56 Zofran Injection IVPUSH Q6H PRN NAUSEA AND/OR VOMITING Ranolazine 500 mg 11/09/18 22:00 11/10/18 12:06 Ranexa - PO 500 mg BID [facility] Administration Valsartan 320 mg 11/10/18 10:00 11/10/18 12:06 Diovan - PO 320 mg DAILY [facility] Administration Impression 1. ESRD 2. HTN 3. HLD 4. COPD 5. DM 6. pos heb b core 7. partial sbo / abd pain 8. anemia 9. a-fib Plan - pt tolerating HD - surgery follow up - wound care - renal diet - monitor bp
--- NOTE | 2018-11-10 16:52 | PATH ---
Surgical Pathology Report Patient Name: BRIAN ONEILL Med. Rec. #: [id number] /Age/Gender: 1930 (Age: 88) / F Account: [id number] Location: [facility] MED/SURG Taken: 11/09/2018 Received: 11/09/2018 Reported: 11/10/2018 Physicians: Lucas Waggoner MD Specimen(s) Received A: RIGHT ROUND LIGAMENT B: LEFT ROUND LIGAMENT C: LIPOMA Clinical History Bilateral inguinal hernia Final Diagnosis A. ROUND LIGAMENT, RIGHT, EXCISION: FRAGMENT OF BENIGN FIBROUS TO FIBROADIPOSE TISSUE, AND SKELETAL MUSCLE CONSISTENT WITH ROUND LIGAMENT. B. ROUND LIGAMENT, LEFT, EXCISION: FRAGMENT OF BENIGN FIBROADIPOSE TISSUE, FIBROVASCULAR TISSUE, AND SKELETAL MUSCLE CONSISTENT WITH ROUND LIGAMENT. C. LIPOMA, EXCISION: MATURE FIBROADIPOSE TISSUE COMPATIBLE WITH LIPOMA. SCANT SKELETAL MUSCLE. ONE BENIGN LYMPH NODE (0/). Electronically Signed Catia Pizarro M.D. Gross Description A. Received in formalin labeled "right round ligament" is an irregular fragment of pink-su, fibromembranous tissue measuring 2.5 x 1 x 0.5 cm. The specimen is serially sectioned and entirely submitted in one cassette. B. Received in formalin labeled "left round ligament" is an irregular fragment of pink-su fibromembranous tissue measuring 3 x 1 x 0.3 cm. The specimen is serially sectioned and entirely submitted in one cassette. C. Received in formalin labeled "lipoma" is an irregular piece of fibromembranous to fibrofatty soft tissue measuring 7.5 x 2 x 1 cm. Sectioning shows yellow adipose tissue. No lesions are identified. Independent Insurance Adjuster sections submitted one cassette.
[2018-11-10] MEDS ORDERED: PT OWN MED DRAWER 7, Y5N ONE (21:06)
--- NOTE | 2018-11-10 21:50 | PN ---
Physical Exam: SUBJECTIVE: Patient seen and examined; doing well post op. Passing flatus, no worsening pain. Clear for DC per surgical service but could not wean from O2 and is not on home O2. Will investigate further and hold DC. Nephrology following for HD. Interestingly, she specifically denies SOB. Had resident complete pre/post in PM once cleared with Dr. Waggoner but unfortunately required O2. 10 sys ROS done and negative aside from HPI OBJECTIVE: Vital Signs Period Temp Pulse Resp BP Sys/Betancourt Pulse Ox Last 24 Hr 97.6 F-98.9 F 66-93 16-20 134-171/65-93 97 GENERAL: The patient is awake, alert, and fully oriented, in no acute distress. O2 via NC 2-3L. HEAD: Normal with no signs of trauma. EYES: PERRL, extraocular movements intact, sclera anicteric ENT: Ears normal, nares patent, oropharynx clear NECK: Trachea midline, full range of motion, supple. LUNGS: Breath sounds equal, relatively clear to auscultation bilaterally, no wheezes HEART: Regular rate and rhythm, S1/2. ABDOMEN: Soft, nontender, nondistended, normoactive bowel sounds, no guarding, no rebound, EXTREMITIES: 2+ pulses, warm, well-perfused, no edema. Palpable thrill on AVF. NEUROLOGICAL: Cranial nerves II through XII grossly intact. Normal speech, gait not observed. PSYCH: Normal mood, normal affect. SKIN: Warm, dry, normal turgor, no rashes or lesions noted Laboratory Results - last 24 hr 11/10/18 11/10/18 11/10/18 00:41 05:39 08:15 WBC 7.6 RBC 3.54 L Hgb 9.7 L Hct 29.2 L MCV 82.5 MCH 27.4 MCHC 33.2 RDW 15.9 H Plt Count 230 MPV 9.2 Sodium Potassium Chloride Carbon Dioxide Anion Gap BUN Creatinine Est GFR (CKD-EPI)AfAm Est GFR (CKD-EPI)NonAf POC Glucometer 162 124 Random Glucose Calcium 11/10/18 11/10/18 08:15 19:25 WBC RBC Hgb Hct MCV MCH MCHC RDW Plt Count MPV Sodium 134 L Potassium 4.5 Chloride 95 L Carbon Dioxide 29 Anion Gap 10 BUN 42.7 H Creatinine 6.7 H Est GFR (CKD-EPI)AfAm 5.84 Est GFR (CKD-EPI)NonAf 5.04 POC Glucometer 134 Random Glucose 182 H Calcium 9.1 Active Medications Generic Name Dose Route Start Last Admin Trade Name Freq PRN Reason Stop Dose Admin Acetaminophen/Codeine Phosphate 1 tab 11/09/18 13:03 Tylenol # 3 - PO Q6H PRN PAIN LEVEL 6-10 Albuterol/Ipratropium 1 amp 11/09/18 12:56 Duoneb - NEB RQID PRN SHORT OF BREATH/WHEEZING Amlodipine Besylate 10 mg 11/10/18 10:00 11/10/18 12:05 Norvasc - PO 10 mg DAILY [facility] Administration Atorvastatin Calcium 20 mg 11/09/18 22:00 11/09/18 21:34 Lipitor - PO 20 mg HS [facility] Administration Fentanyl 25 mcg 11/09/18 14:52 Sublimaze Injection - IVPUSH Q5M PRN PAIN-PACU ORDER X 4 DOSES ONLY Lactated Ringer's 1,000 mls @ 75 mls/hr 11/09/18 12:56 11/09/18 15:03 Lactated Ringers Solution IV Not Given ASDIR [facility] Isosorbide Mononitrate 30 mg 11/10/18 10:00 11/10/18 12:07 Imdur - PO 30 mg DAILY [facility] Administration Metoprolol Succinate 100 mg 11/10/18 10:00 11/10/18 12:07 Toprol Xl - PO 100 mg DAILY [facility] Administration Non-Formulary Medication 1 each 11/10/18 10:00 Fluticasone/Umeclidin/Vilanter [Trelegy Ellipta 100-62.5-25] IH DAILY [facility] Olanzapine 5 mg 11/09/18 22:00 11/09/18 21:34 Zyprexa - PO 5 mg HS [facility] Administration Ondansetron HCl 4 mg 11/09/18 12:56 Zofran Injection IVPUSH Q6H PRN NAUSEA AND/OR VOMITING Ranolazine 500 mg 11/09/18 22:00 11/10/18 12:06 Ranexa - PO 500 mg BID [facility] Administration Valsartan 320 mg 11/10/18 10:00 11/10/18 12:06 Diovan - PO 320 mg DAILY [facility] Administration ASSESSMENT/PLAN: Presents with SBO with LLQ transition point found to have b/l inguinal hernias; requested second surgical opinion and is now POD#2 surgical repair. Pending DC this PM but could not wean from O2. She is not on home O2. Will monitor, obtain ABG, CXR in AM. Deferring fluid removal at HD to nephrology. She is otherwise symptom free. Starting incentive spirometry. She is notably off her AC and we should talk to surgery in AM to resume (on for AF, elevated CV2 score but risks>benefits of AC at this juncture). No further issues with agitation. Problems include: -SBO s/p inguinal hernia repair POD#1 -ESRD on HD per nephrology -O2 requirement, not SOB, dx pending (ABG in AM, CXR) -Dementia w/ behavioral disturbance (S/P psych consult, PRN continued) -Hx HTN -Hx CAD -Recommendation for dysphagia screen (passed swallow eval) Full Code Visit type - Emergency Visit Emergency Visit: No - New Patient This patient is new to me today: No - Critical Care Critical Care patient: No
[2018-11-10] MEDS: ATORVASTATIN CA 20 MG TABLET (FP) PO SCH (22:36)
[2018-11-10] MEDS: OLANZapine 5 MG TABLET PO SCH (22:36)
[2018-11-11] MEDS: ISOSORBIDE MONONITRATE 30 MG TAB.SR.24H (FP) PO SCH (09:41)
[2018-11-11] MEDS: VALSARTAN 160 MG TABLET (UD) PO SCH (09:41)
[2018-11-11] MEDS: amLODIPine BESYLATE 10 MG TABLET (FP) PO SCH (09:41)
[2018-11-11] MEDS: RANOLAZINE E.R. 500 MG TABLET (FP) PO SCH (09:41)
--- NOTE | 2018-11-11 10:15 | PN ---
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
--- NOTE | 2018-11-11 11:25 | PN ---
Teaching Attending Note Name of Resident: Singh Reynoso ATTENDING PHYSICIAN STATEMENT I saw and evaluated the patient. I reviewed the resident's note and discussed the case with the resident. I agree with the resident's findings and plan as documented with exceptions below. SUBJECTIVE: patient seen and examined. no complaints, eating burger, tolerating diet. OBJECTIVE: Vital Signs Period Temp Pulse Resp BP Sys/Betancourt Pulse Ox Last 24 Hr 97.6 F-98.9 F 75-96 16-20 133-171/66-79 99 Intake & Output 11/08/18 11/09/18 11/10/18 11/11/18 23:59 23:59 23:59 23:59 Intake Total 600 850 500 0 Output Total 120 1500 Balance 600 730 -1000 0 Weight 108 lb 114 lb 8 oz 114 lb 6.4 oz 113 lb 1.6 oz General: sitting in bed, eating burger, no acute distress Neck: soft, supple, no JVd Chest: no rales or wheezing appreciated, good air entry bilaterally Abdomen:Soft, NT, ND, pos bowel sounds, surgical site dressing clean Extremities: no edema Home Medications Medication Instructions Recorded Apixaban [Eliquis -] 2.5 mg PO BID tablet 06/13/18 Isosorbide Mononitrate [Imdur -] 30 mg PO DAILY tab.sr.24h 06/13/18 Sevelamer Carbonate [Renvela -] 800 mg PO TIDCM tab 06/13/18 Alendronate Sodium [Binosto] 70 mg PO DAILY 11/05/18 Atorvastatin Ca [Lipitor] 20 mg PO HS 11/05/18 Esomeprazole Magnesium 20 mg PO DAILY 11/05/18 Fluticasone/Umeclidin/Vilanter 1 each IH DAILY 11/05/18 [Trelegy Ellipta 100-62.5-25] Hydralazine HCl 100 mg PO PRN 11/05/18 Insulin Glargine,Hum.rec.anlog 10 unit SQ DAILY 11/05/18 [Toujeo Solostar] Metoprolol Succinate [Toprol XL -] 100 mg PO DAILY 11/05/18 Ondansetron [Zofran *Odt*] 4 mg SL DAILY 11/05/18 Ranolazine [Ranolazine ER] 500 mg PO BID 11/05/18 Telmisartan/Amlodipine 1 each PO DAILY 11/05/18 [Telmisartan-Amlodipine 80-10] Olanzapine [Zyprexa -] 5 mg PO HS #10 tablet 11/10/18 Active Medications Acetaminophen/Codeine Phosphate (Tylenol # 3 -) 1 tab PO Q6H PRN PRN Reason: PAIN LEVEL 6-10 Albuterol/Ipratropium (Duoneb -) 1 amp NEB RQID PRN PRN Reason: SHORT OF BREATH/WHEEZING Amlodipine Besylate (Norvasc -) 10 mg PO DAILY [facility] Last Admin: 11/11/18 09:41 Dose: 10 mg Atorvastatin Calcium (Lipitor -) 20 mg PO HS [facility] Last Admin: 11/10/18 22:36 Dose: 20 mg Fentanyl (Sublimaze Injection -) 25 mcg IVPUSH Q5M PRN PRN Reason: PAIN-PACU ORDER X 4 DOSES ONLY Lactated Ringer's (Lactated Ringers Solution) 1,000 mls @ 75 mls/hr IV ASDIR [facility] Last Admin: 11/09/18 15:03 Dose: Not Given Isosorbide Mononitrate (Imdur -) 30 mg PO DAILY [facility] Last Admin: 11/11/18 09:41 Dose: 30 mg Metoprolol Succinate (Toprol Xl -) 100 mg PO DAILY [facility] Last Admin: 11/11/18 09:41 Dose: 100 mg Non-Formulary Medication (Fluticasone/Umeclidin/Vilanter [Trelegy Ellipta 100- 62.5-25]) 1 each IH DAILY [facility] Olanzapine (Zyprexa -) 5 mg PO HS [facility] Last Admin: 11/10/18 22:36 Dose: 5 mg Ondansetron HCl (Zofran Injection) 4 mg IVPUSH Q6H PRN PRN Reason: NAUSEA AND/OR VOMITING Ranolazine (Ranexa -) 500 mg PO BID [facility] Last Admin: 11/11/18 09:41 Dose: 500 mg Valsartan (Diovan -) 320 mg PO DAILY [facility] Last Admin: 11/11/18 09:41 Dose: 320 mg ASSESSMENT AND PLAN: 88 yof with PMhx of ESRD (T,Th,Sat), COPD, anemia, asthma, CHF, DM, GERD, HTN, HLD, afib admitted with left incarcerated inguinal hernia with SBO s/p repair -Left incarcerated inguinal hernia with small bowel obstruction s/p repair -Post operative hypoxia, suspect atelectasis/underlying COPD,+/- Acute on chronic diastolic HF from fluid resuscitation, low suspicion for PNA -Chronic diastolic heart failure -Afib on Eliquis -IDDM -HTN -HLD -GERD Plan: Doing well, lung exam clear. Fluid removed with HD on 11/10. Off IV hydration. Incentive spirometry, encourage ambulation Resume home inhalers. Patient already has home oxygen. Surgery input noted. PO as tolerated. outpatient. Discussed with alee Roberson to resume eliquis. PO improved, home diabetic regimem with home BGM monitoring Continue metoprolol/amlodipine/ARB Continue statin/imdur DVTPPX resume eliquis PT eval noted. Dispo dc home with services today with outpatient surgery/nephrology follow up. Discussed with nursing.
[2018-11-11] MEDS ORDERED: APIXABAN 2.5 MG TABLET PO SCH (11:30)
--- NOTE | 2018-11-11 12:29 | PN ---
Progress Note, Physician History of Present Illness: Pt seen and examined at bedside. She is awake and alert. She denies shortness of breath. - Current Medication List Current Medications: Active Medications Acetaminophen/Codeine Phosphate (Tylenol # 3 -) 1 tab PO Q6H PRN PRN Reason: PAIN LEVEL 6-10 Last Admin: 11/11/18 12:16 Dose: 1 tab Albuterol/Ipratropium (Duoneb -) 1 amp NEB RQID PRN PRN Reason: SHORT OF BREATH/WHEEZING Amlodipine Besylate (Norvasc -) 10 mg PO DAILY [facility] Last Admin: 11/11/18 09:41 Dose: 10 mg Apixaban (Eliquis -) 2.5 mg PO BID [facility] Last Admin: 11/11/18 12:16 Dose: 2.5 mg Atorvastatin Calcium (Lipitor -) 20 mg PO HS [facility] Last Admin: 11/10/18 22:36 Dose: 20 mg Fentanyl (Sublimaze Injection -) 25 mcg IVPUSH Q5M PRN PRN Reason: PAIN-PACU ORDER X 4 DOSES ONLY Isosorbide Mononitrate (Imdur -) 30 mg PO DAILY [facility] Last Admin: 11/11/18 09:41 Dose: 30 mg Metoprolol Succinate (Toprol Xl -) 100 mg PO DAILY [facility] Last Admin: 11/11/18 09:41 Dose: 100 mg Non-Formulary Medication (Fluticasone/Umeclidin/Vilanter [Trelegy Ellipta 100- 62.5-25]) 1 each IH DAILY [facility] Olanzapine (Zyprexa -) 5 mg PO HS [facility] Last Admin: 11/10/18 22:36 Dose: 5 mg Ondansetron HCl (Zofran Injection) 4 mg IVPUSH Q6H PRN PRN Reason: NAUSEA AND/OR VOMITING Ranolazine (Ranexa -) 500 mg PO BID [facility] Last Admin: 11/11/18 09:41 Dose: 500 mg Valsartan (Diovan -) 320 mg PO DAILY [facility] Last Admin: 11/11/18 09:41 Dose: 320 mg - Objective Vital Signs: Vital Signs Temperature 98.4 F 11/11/18 09:40 Pulse Rate 96 H 11/11/18 09:40 Respiratory Rate 18 11/11/18 09:40 Blood Pressure 154/79 11/11/18 09:40 O2 Sat by Pulse Oximetry (%) 99 11/10/18 21:00 Constitutional: Yes: Calm Eyes: Yes: Conjunctiva Clear HENT: Yes: Atraumatic Cardiovascular: Yes: S1, S2 Respiratory: Yes: On Nasal O2 Gastrointestinal: Yes: Soft, Other (dressing in place) Genitourinary: Yes: WNL Musculoskeletal: Yes: WNL Edema: No Neurological: Yes: Oriented Psychiatric: Yes: Oriented Labs: CBC, BMP 11/10/18 08:15 11/10/18 08:15 INR, PTT INR 0.90 (0.83-1.09) 11/08/18 18:50 Problem List - Problems (1) ESRD (end stage renal disease) Code(s): N18.6 - END STAGE RENAL DISEASE Assessment/Plan Current Medications Generic Name Dose Route Start Last Admin Trade Name Freq PRN Reason Stop Dose Admin Acetaminophen/Codeine Phosphate 1 tab 11/09/18 13:03 11/11/18 12:16 Tylenol # 3 - PO 1 tab Q6H PRN Administration PAIN LEVEL 6-10 Albuterol/Ipratropium 1 amp 11/09/18 12:56 Duoneb - NEB RQID PRN SHORT OF BREATH/WHEEZING Amlodipine Besylate 10 mg 11/10/18 10:00 11/11/18 09:41 Norvasc - PO 10 mg DAILY [facility] Administration Apixaban 2.5 mg 11/11/18 11:30 11/11/18 12:16 Eliquis - PO 2.5 mg BID [facility] Administration Atorvastatin Calcium 20 mg 11/09/18 22:00 11/10/18 22:36 Lipitor - PO 20 mg HS [facility] Administration Fentanyl 25 mcg 11/09/18 14:52 Sublimaze Injection - IVPUSH Q5M PRN PAIN-PACU ORDER X 4 DOSES ONLY Isosorbide Mononitrate 30 mg 11/10/18 10:00 11/11/18 09:41 Imdur - PO 30 mg DAILY [facility] Administration Metoprolol Succinate 100 mg 11/10/18 10:00 11/11/18 09:41 Toprol Xl - PO 100 mg DAILY [facility] Administration Non-Formulary Medication 1 each 11/10/18 10:00 Fluticasone/Umeclidin/Vilanter [Trelegy Ellipta 100-62.5-25] IH DAILY [facility] Olanzapine 5 mg 11/09/18 22:00 11/10/18 22:36 Zyprexa - PO 5 mg HS [facility] Administration Ondansetron HCl 4 mg 11/09/18 12:56 Zofran Injection IVPUSH Q6H PRN NAUSEA AND/OR VOMITING Ranolazine 500 mg 11/09/18 22:00 11/11/18 09:41 Ranexa - PO 500 mg BID [facility] Administration Valsartan 320 mg 11/10/18 10:00 11/11/18 09:41 Diovan - PO 320 mg DAILY [facility] Administration Impression 1. ESRD 2. HTN 3. HLD 4. COPD 5. DM 6. pos heb b core 7. partial sbo / abd pain 8. anemia 9. a-fib Plan - HD tomorrow - she has HD set up as outpt - do not restart fluids - renal diet - pain control - monitor bp
[2018-11-11] MEDS ORDERED: SODIUM CHLORIDE 250 ML IV PRN (12:30)
[2018-11-11 12:41] VITALS: BMI 19.3
[2018-11-11 14:45] VITALS: BP 115/61; PULSE 81; TEMP 98.5
--- NOTE | 2018-11-11 16:18 | DS ---
Physical Exam: SUBJECTIVE: Patient seen and examined at bedside. feels well post op. Passing gas OBJECTIVE: Vital Signs Period Temp Pulse Resp BP Sys/Betancourt Pulse Ox Last 24 Hr 98.2 F-98.9 F 75-101 18-20 115-161/61-79 98-99 PHYSICAL EXAM General: sitting in bed, no acute distress Neck: soft, supple, no JVd Cardio: rrr, normal s1s2, no mrg Pulm: cta b/l Abdomen:Soft, NT, ND, pos bowel sounds, surgical site dressing clean Extremities: no edema LABS Laboratory Results - last 24 hr 11/10/18 11/11/18 11/11/18 19:25 05:42 11:20 POC Glucometer 134 80 101 HOSPITAL COURSE: Date of Admission:11/06/18 Date of Discharge: 11/11/18 88 yof with PMhx of ESRD (T,Th,Sat), COPD, anemia, asthma, CHF, DM, GERD, HTN, HLD, afib admitted with left incarcerated inguinal hernia with SBO. The pt was found to have R reducible hernia and L incarcerated hernia. She was seen by surgery and was taken to the operating room for b/l hernia repair. Post operatively, she required supplemental oxygen to maintain saturation, likely due to post-op atalectasis. The surgery went well with no complications. The patient was sent home with oxygen. Pt has ESRD which was addressed by nephrology with HD. Her COPD, asthma, CHF, DM, GERD, HTN, HLD, AF were stable and were managed with home medications. Home Medication List Medication Instructions Recorded Confirmed Type Alendronate Sodium [Binosto] 70 mg PO DAILY 11/05/18 11/05/18 History Atorvastatin Ca [Lipitor] 20 mg PO HS 11/05/18 11/05/18 History Esomeprazole Magnesium 20 mg PO DAILY 11/05/18 11/05/18 History Fluticasone/Umeclidin/Vilanter 1 each IH DAILY 11/05/18 11/05/18 History [Angelina Ellipta 100-62.5-25] Hydralazine HCl 100 mg PO PRN 11/05/18 11/05/18 History Insulin Glargine,Hum.rec.anlog 10 unit SQ DAILY 11/05/18 11/05/18 History [Alejandro Spencer] Metoprolol Succinate [Toprol XL -] 100 mg PO DAILY 11/05/18 11/05/18 History Ondansetron [Zofran *Odt*] 4 mg SL DAILY 11/05/18 11/05/18 History Ranolazine [Ranolazine ER] 500 mg PO BID 11/05/18 11/05/18 History Telmisartan/Amlodipine 1 each PO DAILY 11/05/18 11/05/18 History [Telmisartan-Amlodipine 80-10] Minutes to complete discharge: 30 Discharge Summary Reason For Visit: SMALL BOWEL OBSTRUCTION Current Active Problems Bilateral inguinal hernia (Acute) Condition: Stable - Instructions Diet, Activity, Other Instructions: You were in the hospital because of hernia. You need to follow up with the following doctors: Dr. Reid Marrufo, primary care, 3-[address] Waggoner, general surgery, [address] Reis, nephrology, [address] Dangelo, psychiatry, 1 week Continue taking your home medications as before. If your symptoms get worse, return to the emergency department. Continue home oxygen 2L continuous and follow up with your doctor. Dr. Waggoner Discharge Instructions Dear BRIAN ONEILL, Post Operative Instructions Physical activity Resume your normal everyday activity as tolerated no heavy lifting or exercise until seen by your surgeon. You may walk unlimited amounts of and climb stairs. You may resume driving the car when you feel safe and comfortable behind the wheel. Wound care If you have a bandage, leave it on, and keep dry for 48 - 72 hours. After that time discard the outer bandage. If there are tapes on the skin under the outer bandage, leave them in place. They will peel off in the next 7 to 10 days. Do Not peel them off. You may shower 2 days after surgery. If there are tapes present on the skin, they can get wet. Diet There are no dietary restrictions. Eat healthy, high-fiber foods. Drink 6 to 8 glasses of liquid each day. This will assist in keeping your bowels are regular. Pain management You may take Tylenol or acetaminophen or Ibuprofen (for example, Motrin, Advil etc.) Any pain prescription medication ordered should be taken as prescribed for moderate to severe pain. Call Dr. Waggoner for any of the following: Severe pain not relieved by medication Fever of 101 or higher Excessive bleeding or drainage on dressing Inability to urinate Call the office at [phone] for a post operative appointment in 7 - 10 days. Referrals: Lucas Waggoner MD [Staff Physician] - 1 Week Zelda Reis MD [Staff Physician] - 1 Week Disposition: VNS/HOME HEALTH CARE - Home Medications Comprehensive Discharge Medication List: Ambulatory Orders Apixaban [Eliquis -] 2.5 mg PO BID tablet 06/13/18 Isosorbide Mononitrate [Imdur -] 30 mg PO DAILY tab.sr.24h 06/13/18 Sevelamer Carbonate [Renvela -] 800 mg PO TIDCM tab 06/13/18 Alendronate Sodium [Binosto] 70 mg PO DAILY 11/05/18 Atorvastatin Ca [Lipitor] 20 mg PO HS 11/05/18 Esomeprazole Magnesium 20 mg PO DAILY 11/05/18 Fluticasone/Umeclidin/Vilanter [Trelegy Ellipta 100-62.5-25] 1 each IH DAILY 07/19 Hydralazine HCl 100 mg PO PRN 11/05/18 Insulin Glargine,Hum.rec.anlog [Toujeo Solostar] 10 unit SQ DAILY 11/05/18 Metoprolol Succinate [Toprol XL -] 100 mg PO DAILY 11/05/18 Ondansetron [Zofran *Odt*] 4 mg SL DAILY 11/05/18 Ranolazine [Ranolazine ER] 500 mg PO BID 11/05/18 Telmisartan/Amlodipine [Telmisartan-Amlodipine 80-10] 1 each PO DAILY 11/05/18 This patient is new to me today: No Emergency Visit: No Critical Care patient: No - Discharge Referral Referred to [facility] Med [facility] No ATTENDING PHYSICIAN STATEMENT I saw and evaluated the patient. I reviewed the resident's note and discussed the case with the resident. I agree with the resident's findings and plan as documented. SUBJECTIVE: OBJECTIVE: ASSESSMENT AND PLAN:
--- NOTE | 2018-11-12 11:59 | OP ---
DATE OF OPERATION: 11/09/2018 DATE OF DICTATION: 11/12/2018 PREOPERATIVE DIAGNOSIS: Bilateral inguinal hernias, left incarcerated. PROCEDURE: Repair, bilateral inguinal hernias, with mesh. SURGEON: Lucas Waggoner MD ORE MIXER: Marcelino Veliz II, PA-C ANESTHESIA: General. OPERATIVE FINDINGS: There was an incarcerated left inguinal hernia containing viable omentum. There was a right inguinal hernia. Both hernias were direct in nature and on the left side indirect as well and the right hernia was clinically larger than the left. PROCEDURE: The patient was placed on the operating table in the supine position and after the induction of general anesthesia the patient's lower abdomen was prepped with ChloraPrep and draped in sterile fashion. A timeout was taken and bilateral groin incisions were mapped out. Surgery began on the left side where the skin was incised with a scalpel and taken down through skin and subcutaneous tissue and Jose fascia. The external oblique fascia was identified and opened proximally and distally in the direction of its fibers. The previously noted findings were observed. The floor of the inguinal canal with the hernia was reduced and then a piece of Parietex ProGrip mesh fashioned into the defect and sutured in place at the pubic tubercle, conjoint tendon and shelving edge, respectively, with interrupted 2-0 Prolene. Prior to this the round ligament was mobilized and excised and sent for pathological examination. The proximal mesh was tucked under the proximal aspect of the external oblique fascia and then hemostasis checked for and noted to be good. The wound was then irrigated with sterile saline and the external oblique fascia closed using continuous 2-0 Vicryl, the Jose fascia with interrupted 2-0 Vicryl, the deep dermis with interrupted 3-0 Vicryl and the skin edges with 4-0 Monocryl in a subcuticular continuous fashion. The exact same procedure was repeated on the contralateral (right) side. At the completion of the right side both wounds were dressed with Dermabond and dry sterile dressings and the patient aroused from general anesthesia and transferred to the postanesthesia care unit in stable condition, awake and alert. ESTIMATED BLOOD LOSS: 15 mL. REPLACEMENT: Crystalloid. DRAINS: None. SPECIMENS: Bilateral round ligaments to Pathology. I, Lucas Waggoner, was physically present in the operating room from the time the patient was placed on the operating table until she was transferred to the postanesthesia care unit in my accompaniment. MD KOMAL Carlson/[id number]
[2018-11-12] MEDS ORDERED: EPOETIN ALFA 2,000 UNIT/1 ML VIAL IVPUSH ONE (12:30)
== END 2018-11-11 17:57 | disposition home health service (06) | DRG 350 ==
LOC: JER 22:46 → JERBED 11-06 04:24 → J7W 11-07 02:09
PROVIDERS: ADMIT Internal Medicine; ATTEND Hospitalist
PROC: 5A1D70Z Performance of Urinary Filtration, Intermittent, Less than 6 Hours Per Day (ICD-10-PCS; 2018-11-07)
PROC: 0YUA0JZ Supplement Bilateral Inguinal Region with Synthetic Substitute, Open Approach (ICD-10-PCS; principal; 2018-11-09 12:00)
PROC: 5A1D70Z Performance of Urinary Filtration, Intermittent, Less than 6 Hours Per Day (ICD-10-PCS; 2018-11-10)
DX: K40.30 Unilateral inguinal hernia, with obstruction, without gangrene, not specified as recurrent (principal); N18.6 End stage renal disease; I50.33 Acute on chronic diastolic (congestive) heart failure; I13.2 Hypertensive heart and chronic kidney disease with heart failure and with stage 5 chronic kidney disease, or end stage renal disease; J98.11 Atelectasis; K56.699 Other intestinal obstruction unspecified as to partial versus complete obstruction; F03.91 Unspecified dementia, unspecified severity, with behavioral disturbance; J95.89 Other postprocedural complications and disorders of respiratory system, not elsewhere classified; J44.9 Chronic obstructive pulmonary disease, unspecified; D64.9 Anemia, unspecified; K21.9 Gastro-esophageal reflux disease without esophagitis; I48.91 Unspecified atrial fibrillation; E78.00 Pure hypercholesterolemia, unspecified; E11.22 Type 2 diabetes mellitus with diabetic chronic kidney disease; Z99.2 Dependence on renal dialysis; E87.5 Hyperkalemia; E78.5 Hyperlipidemia, unspecified; E87.70 Fluid overload, unspecified; Y83.8 Other surgical procedures as the cause of abnormal reaction of the patient, or of later complication, without mention of misadventure at the time of the procedure
CPT/HCPCS: 36415; 70450-TC; 71045-TC-FY; 74019-TC-FY; 74176-TC; 80048; 80053; 82550; 82962; 83605; 83735; 83880; 84100; 84484; 85025; 85027; 85610; 85730; 86803; 86850; 86900; 86901; 87340; 88304-TC; 93005; 93010; 94760; 94761; 97116-GP; 97161-GP; 99285-25; J0131; J1644; J7030

== ENCOUNTER 2019-03-03 20:30 | Observation (INO) | payer OTHER ==
[2019-03-03 23:03] LABS: BASO % 0.8 % (0-2.0); HEMATOCRIT 37.6 % (32.4-45.2); HEMOGLOBIN 12.3 GM/dL (10.7-15.3); LYMPH % 34.4 % (8-40); MCH 27.2 pg (25.7-33.7); MCHC 32.7 g/dl (32.0-36.0); MEAN CELL VOLUME 83.2 fl (80-96); MEAN PLT VOLUME 8.5 fl (7.5-11.1); MONO % 7.7 % (3.8-10.2); NEUT % 53.1 % (42.8-82.8); PLATELET COUNT 237 K/MM3 (134-434); RBC 4.52 M/mm3 (3.60-5.2); RDW 15.8 % (11.6-15.6); WHITE BLOOD COUNT 4.5 K/mm3 (4.0-10.0)
--- NOTE | 2019-03-03 23:07 | PDOC ---
History of Present Illness - General Chief Complaint: Altered Mental Status Stated Complaint: AMS Time Seen by Provider: 03/03/19 21:23 - History of Present Illness Initial Comments: Araceli Crouch is an 88yo woman with a PMH of ESRD (HD TThSa), COPD, asthma, CHF, DM, HTN, HLD, a-fib, anemia, GERD, L incarcerated hernia and SBO s/p repair (2018) who was brought to the ED by her daughter with report of altered mental status today. The pt is Creole-speaking, and her daughter is at bedside to translate. Per the daughter, the pt has been acting oddly on and off for weeks to months. Recently, she has started eating less and has needed someone to help feed her. She also has periods of time where she does not act like herself. Yesterday, the daughter noted that her mother was talking incessently for several hours, and she was not making much sense. This evening, when the daughter got home from work, the pt did not speak at all for several hours. She called the pt's PMD and was instructed that she had altered mental status and should be seen in the ED. Currently, the pt has started speaking again. Her daughter feels she is back at baseline. The daughter denies any recent cough, congestion, fever, vomiting, change in bowel habits, or rash. The patient is aneuric; she received her regular Friday dialysis on Friday due to the holiday. Past History - Past Medical History Allergies/Adverse Reactions: Allergies Allergy/AdvReac Type Severity Reaction Status Date / Time egg AdvReac Vomiting Verified 03/03/19 20:38 Home Medications: Ambulatory Orders Apixaban [Eliquis -] 2.5 mg PO BID tablet 06/13/18 Isosorbide Mononitrate [Imdur -] 30 mg PO DAILY tab.sr.24h 06/13/18 Sevelamer Carbonate [Renvela -] 800 mg PO TIDCM tab 06/13/18 Alendronate Sodium [Binosto] 70 mg PO DAILY 11/05/18 Atorvastatin Ca [Lipitor] 20 mg PO HS 11/05/18 Esomeprazole Magnesium 20 mg PO DAILY 11/05/18 Fluticasone/Umeclidin/Vilanter [Trelegy Ellipta 100-62.5-25] 1 each IH DAILY 07/19 Hydralazine HCl 100 mg PO PRN 11/05/18 Insulin Glargine,Hum.rec.anlog [Darreljncelia Cisnerosellen] 10 unit SQ DAILY 11/05/18 Metoprolol Succinate [Toprol XL -] 100 mg PO DAILY 11/05/18 Ondansetron [Zofran *Odt*] 4 mg SL DAILY 11/05/18 Ranolazine [Ranolazine ER] 500 mg PO BID 11/05/18 Telmisartan/Amlodipine [Telmisartan-Amlodipine 80-10] 1 each PO DAILY 11/05/18 Anemia: Yes Asthma: Yes Cancer: No Cardiac Disorders: No CVA: Yes COPD: Yes (home o2) CHF: Yes Dementia: No Diabetes: Yes GI Disorders: Yes (GERD) Disorders: Yes HTN: Yes Hypercholesterolemia: Yes Kidney Stones: Yes Liver Disease: No Seizures: No Thyroid Disease: No - Surgical History Abdominal Surgery: No Appendectomy: No Cardiac Surgery: No Cholecystectomy: No Lung Surgery: No Neurologic Surgery: Yes (CRANIOTOMY 10YEARS AGO) Orthopedic Surgery: No - Immunization History Immunization Up to Date: Yes - Psycho Social/Smoking Cessation Hx Smoking History: Never smoked Have you smoked in the past 12 months: No Number of Cigarettes Smoked Daily: 0 Cigars Per Day: 0 Hx Alcohol Use: No Drug/Substance Use Hx: No Substance Use Type: None Hx Substance Use Treatment: No Review of Systems - Review of Systems Comments:: General: No fevers, no chills, no weight or appetite change, no malaise HEENT: No changes in vision, no changes in hearing, no congestion, no sore throat CV: No chest pain, no palpitations, no LE edema Pulm: No SOB, no cough, no wheezing GI: No nausea or vomiting, no change in bowel habits, no melena : Aneuric, on HD Musc: No back pain, no joint swelling, no recent injury Skin: No rash, no lesions, no erythema Endo: No excessive thirst, no heat/cold intolerance Heme: No unusual bruising or bleeding, no swollen glands Neuro: No syncope, no numbness/tingling, no focal weakness. See HPI Vasc: No claudication Psych: No recent change in mood, no SI or HI *Physical Exam - Vital Signs Last Vital Signs Temp Pulse Resp BP Pulse Ox 97.9 F 81 18 165/68 100 03/03/19 20:36 03/03/19 20:36 03/03/19 20:36 03/03/19 20:36 03/03/19 20:36 - Physical Exam General: Comfortable, no acute distress HEENT: Atraumatic, PERRL, EOMI, MMM, voice normal, normal neck ROM Cards: RRR, no murmur appreciated Pulm: Comfortable on room air, clear to auscultation bilaterally Abd: Soft, nontender, nondistended. Well-healed surgical scar c/w inguinal hernia repair : No CVA tenderness Ext: Atraumatic. No LE edema. Moves all extremities. WWP Skin: Normal color, no rashes or lesions Neuro: Awake and alert, CN grossly intact, motor/sensory grossly intact and symmetric ED Treatment Course - LABORATORY CBC & Chemistry Diagram: 03/03/19 22:50 03/03/19 22:50 - RADIOLOGY Radiology Studies Ordered: Category Date Time Status HEAD CT WITHOUT CONTRAST [CT] Stat CT Scan 03/03/19 22:59 Ordered Medical Decision Making - Medical Decision Making 03/03/19 23:00 Araceli Crouch is an 88yo woman with a PMH of ESRD (HD TThSa), COPD, asthma, CHF, DM, HTN, HLD, a-fib, anemia, GERD, L incarcerated hernia and SBO s/p repair (2018) who was brought to the ED by her daughter with report of altered mental status today. The pt is Creole-speaking, and her daughter is at bedside to translate. - Currently asymptomatic, back to baseline - Given multiple recent changes over time, may be secondary to advancing age. However, pt had her HD early and could have electrolyte abnormalities, will check CBC, CMP, ammonia to evaluate - No infectious symptoms reported - CT head given AMS, though no reported or visualized trauma 03/03/19 23:53 - Labs reviewed. No concerning abnormalities. Lytes WNL, Cr 6.9 similar to prior - EKG w/ HSR, HR 77, normal axis, long OR at 204 c/w 1st degree block. T-wave inversions in V5 and V6 not seen on prior. - Trop added - Plan to admit for ACS workup 03/04/19 01:15 - CT negative for acute pathology - Trop pending - Will send microblog for admission for ACS workup 03/04/19 02:16 - Sign out given to Dr Tatum by Dr Marinelli. Will be admitted to med/surg on telemetry Discussed with Dr aMrija Knight PGY2 Discharge - Discharge Information Problems reviewed: Yes Clinical Impression/Diagnosis: Nonspecific ST-T wave electrocardiographic changes Altered mental status Qualifiers: Altered mental status type: transient alteration of awareness Qualified Code(s) : R40.4 - Transient alteration of awareness Condition: Fair - Admission Yes - Follow up/Referral - Patient Discharge Instructions - Post Discharge Activity
[2019-03-03 23:33] LABS: ALBUMIN 4.2 g/dl (3.4-5.0); ALK PHOS 74 U/L (45-117); ANION GAP 4 MMOL/L (8-16); BILIRUBIN,TOTAL 1.1 mg/dL (0.2-1); BLOOD UREA NITROGEN 36.6 mg/dL (7-18); CALCIUM 10.3 mg/dL (8.5-10.1); CHLORIDE 102 mmol/L (98-107); CO2 35 mmol/L (21-32); CREATININE 6.2 mg/dL (0.55-1.3); GLUCOSE,RANDOM 107 mg/dL (74-106); POTASSIUM 4.3 mmol/L (3.5-5.1); SGOT/AST 12 U/L (15-37); SGPT/ALT 15 U/L (13-61); SODIUM 140 mmol/L (136-145); TOT PROT 7.2 g/dl (6.4-8.2)
--- NOTE | 2019-03-03 23:55 | PDOC ---
Attending Attestation - Resident Resident Name: AntoniaKarin - ED Attending Attestation I have performed the following: I have examined & evaluated the patient, The case was reviewed & discussed with the resident, I agree w/resident's findings & plan - HPI HPI: 03/03/19 23:54 88yo woman with a PMH of ESRD (HD TThSa), COPD, asthma, CHF, DM, HTN, HLD, a- fib, anemia, GERD, L incarcerated hernia and SBO s/p repair (11/2018) who was brought to the ED by her daughter with periods of AMS. Came home in the evening, talking less x several hours - mute. per daughter, pt has been behaving strangely intermittently x weeks to months; eating less, requiring help to feed. Appetite loss x long time. No history of dementia. No trauma No infectious sx. Per the daughter, the pt has been acting oddly on and off for weeks to months. Recently, she has started eating less and has needed someone to help feed her. She also has periods of time where she does not act like herself. Yesterday, the daughter noted that her mother was talking incessently for several hours, and she was not making much sense. This evening, when the daughter got home from work, the pt did not speak at all for several hours. She called the pt's PMD and was instructed that she had altered mental status and should be seen in the ED. Currently, the pt has started speaking again. Her daughter feels she is back at baseline. The daughter denies any recent cough, congestion, fever, vomiting, change in bowel habits, or rash. The patient is aneuric; she received her regular Friday dialysis on Friday due to the holiday. 03/04/19 03:04 - Physicial Exam PE: 03/03/19 23:54 Agree with the resident's HPI and PE as documented in the electronic medical record. NAD, well appearing, EOMI, PERRL, nl conjunctiva, anicteric; neck supple. lungs clear, RRR, abdomen soft nontender. No rebound, no guarding. Back nontender. CABRERA x4, no focal neuro deficits. No peripheral edema. normal color for ethnicity , WWP. - Medical Decision Making 03/03/19 23:54 Vital Signs Temp Pulse Resp BP Pulse Ox 97.9 F 81 18 165/68 100 03/03/19 20:36 03/03/19 20:36 03/03/19 20:36 03/03/19 20:36 03/03/19 20:36 vitals wnl. reassuring neuro intact, now back to baseline. speech clear. no focal deficits. labs and lytes wnl, reassuring, trop neg, doubt cardiac EKG with new changes TWI in lateral leads, changed from prior Cr at baseline admit for AMS, abnormal EKG, serial trop 03/04/19 03:02 03/04/19 03:04 Heart Score/ECG Review #1 ECG reviewed & interpreted by me at: 23:10 General ECG Interpretation: Sinus Rhythm, Normal Rate, Normal Intervals 03/03/19 23:55 ecg sinus rhythm 77 bpm, normal interval, normal axis, nonspecific TWI in V5-6. no ST elevations or depressions.
--- NOTE | 2019-03-04 01:31 | PN ---
Teaching Attending Note Name of Resident: Yolis Arriaga ATTENDING PHYSICIAN STATEMENT I saw and evaluated the patient. I reviewed the resident's note and discussed the case with the resident. I agree with the resident's findings and plan as documented. SUBJECTIVE: Patient is an 88 year old woman with a PMH of ESRD on hemodialysis (TThSa), COPD (on home O2), Asthma, CHF, Thrombocytopenia, NIDDM, HTN, HLD, Afib, Craniotomy, Anemia, GERD, Left incarcerated hernia and SBO s/p repair (11/2018) who was brought to the ER by her daughter with report of altered mental status today. The pt is Creole-speaking, and her daughter is at bedside to translate. Per the daughter, the patient has been acting oddly on and off for weeks to months. Recently, she started eating less and needed someone to feed her. She also has periods of time where she does not act like herself. Yesterday, the daughter noted that her mother was talking incessantly for several hours, and she was not making much sense. This evening, when the daughter got home from work, the patient did not speak at all for several hours. She called the patient 's PMD and was instructed that she had altered mental status and should be seen in the ER. Patient started speaking again in the ER and her daughter feels she is back at baseline. Has had constipation for 1 week and uses a wheelchair. The daughter denies any recent cough, congestion, fever, vomiting or rash. Patient is anuric and she received her regular Friday dialysis on Friday due to the holiday. No history of alcohol, tobacco or illicit drug use. OBJECTIVE: Vital Signs Period Temp Pulse Resp BP Sys/Betancourt Pulse Ox Last 24 Hr 97.9 F 77-81 18-20 147-165/68-74 100-100 HEENT: No Jaundice, eye redness or discharge, PERRLA, EOMI. Normocephalic, atraumatic. External ears are normal and hearing is grossly intact. No nasal discharge. Neck: Supple, nontender. No palpable adenopathy or thyromegaly. No JVD Chest: Good effort. Clear to auscultation and percussion. Heart: Regular. No S3, rub or murmur Abdomen: Not distended, soft, upper abdominal tenderness and no HSM. No rebound or guarding. Normal bowel sounds. Ext: Peripheral pulses intact. No leg edema. LUE AVF. Skin: Warm and dry. No petechiae, rash or ecchymosis. Neuro: Alert. Oriented x3. CN 2-12 grossly intact. Sensation grossly intact in all four extremities and DTR are symmetric. Psych: Appropriate mood and affect. Good insight. Home Medications Medication Instructions Recorded Apixaban [Eliquis -] 2.5 mg PO BID tablet 06/13/18 Isosorbide Mononitrate [Imdur -] 30 mg PO DAILY tab.sr.24h 06/13/18 Sevelamer Carbonate [Renvela -] 800 mg PO TIDCM tab 06/13/18 Alendronate Sodium [Binosto] 70 mg PO DAILY 11/05/18 Atorvastatin Ca [Lipitor] 20 mg PO HS 11/05/18 Esomeprazole Magnesium 20 mg PO DAILY 11/05/18 Fluticasone/Umeclidin/Vilanter 1 each IH DAILY 11/05/18 [Trelegy Ellipta 100-62.5-25] Hydralazine HCl 100 mg PO PRN 11/05/18 Insulin Glargine,Hum.rec.anlog 10 unit SQ DAILY 11/05/18 [Toujeo Solostar] Metoprolol Succinate [Toprol XL -] 100 mg PO DAILY 11/05/18 Ondansetron [Zofran *Odt*] 4 mg SL DAILY 11/05/18 Ranolazine [Ranolazine ER] 500 mg PO BID 11/05/18 Telmisartan/Amlodipine 1 each PO DAILY 11/05/18 [Telmisartan-Amlodipine 80-10] Abnormal Lab Results 03/03/19 03/03/19 22:50 22:50 RDW 15.8 H Carbon Dioxide 35 H Anion Gap 4 L BUN 36.6 H Creatinine 6.2 H Random Glucose 107 H Calcium 10.3 H Total Bilirubin 1.1 H AST 12 L ASSESSMENT AND PLAN: 1. AMS/Rule out ACS - AMS consistent with delirium, but the underlying cause is unclear. No obvious infection source. No acute abnormality on head CT. CXR pending. EKG shows NSR with LVH and new T wave inversion in V5-6 but initial troponin is negative. Will rule out ACS, get CT abdomen/pelvis and treat constipation with saline enema. Hypercalcemia is unexplained. Will check PTH, phosphate and contact the dialysis facility during the day to confirm her medication list and verify if she is on parenteral vitamin d analogues. Consult Nephrology to continue thrice weekly hemodialysis. Will continue comprehensive care for all of patients comorbid conditions including Eliquis for Afib. 2. DM For now, we will hold the home diabetes drugs and implement sliding scale insulin regimen. Provide comprehensive diabetes care with patient teaching and counseling about the importance of adherence to prescribed diabetes regimen, euglycemia, eye care and foot care. 3. Hypertension - Restart suitable outpatient antihypertensive drugs when clinically appropriate. Revise regimen to ensure [id number] excellent BP control and treatment counselor patient on the injurious effects of uncontrolled hypertension. Nonpharmacologic measures to control hypertension like weight loss , salt restriction and exercise discussed. Importance of adherence to treatment regimen and attainment of normotension emphasized. 4. DVT prophylaxis - On Eliquis for Afib. 5. Advance directives - Full code
--- NOTE | 2019-03-04 02:40 | HP ---
CHIEF COMPLAINT: AMS PCP: Dr. Marrufo HISTORY OF PRESENT ILLNESS: Ms. Crouch is an 88 year old female with ESRD (HD /), COPD (on home O2 2L) , asthma, CHF, DM, HTN, HLD, a-fib, anemia, GERD, L incarcerated hernia and SBO s/p repair (11/2018) who presents with AMS. Pt speaks Creole. Daughter at bedside to assist with history. Pt lives at home with daughter and has daily [employer]. At baseline she is alert and oriented, completes full sentences, uses a wheelchair, does not make urine. Over the past few months, she has had a slow decline in her mental status and has become progressively confused. On Friday, pt was found talking incessantly for hours, telling stories, rambling, and not making sense. Pt otherwise was well and went to sleep. Woke up yesterday and did not speak at all. Daughter says that family was over at the house and the patient would not speak to anyone, even though she was awake and alert. They called PCP who advised they come to ER. When pt arrived at ER, she "woke up" out of her previous state and was confused where she was. She was able to be oriented by her daughter that she was in the hospital. Pt did not remember any events from the day, including seeing any of her family at her house. Daughter states that the patient was last "normal" on Friday when family was over (pt was talking with family, had no confusion or changes in mental status). Pt has been eating less over the past several weeks and has had vague abdominal discomfort and nausea. Last , patient had several episodes of vomiting after dialysis, which resolved on its own. Denies any fevers, chills, diarrhea, chest pain, SOB. She is constipated at baseline (last BM x1 week ago). Last dialysis was on Friday (instead of Friday) due to holiday. Of note, pt was hospitalized in June 2018 for agitation/combative behavior/ delirium thought to be 2/2 dementia. She was started with Zyprexa, but unknown compliance with this medication since. ER course was notable for: (1) CT head: negative (2) EKG: NSR, no st elevations, TWI in V5, V6 (3) Recent Travel: denies PAST MEDICAL HISTORY: As per HPI PAST SURGICAL HISTORY: Open skull surgery for subdural hematomas 2/2 fall x10 years ago L hernia repair Social History: Smoking: quit 40 years ago Alcohol: denies Drugs: denies Allergies egg Adverse Reaction (Verified 03/03/19 20:38) Vomiting HOME MEDICATIONS: Home Medications Medication Instructions Recorded Apixaban [Eliquis -] 2.5 mg PO BID tablet 06/13/18 Isosorbide Mononitrate [Imdur -] 30 mg PO DAILY tab.sr.24h 06/13/18 Sevelamer Carbonate [Renvela -] 800 mg PO TIDCM tab 06/13/18 Alendronate Sodium [Binosto] 70 mg PO DAILY 11/05/18 Atorvastatin Ca [Lipitor] 20 mg PO HS 11/05/18 Esomeprazole Magnesium 20 mg PO DAILY 11/05/18 Fluticasone/Umeclidin/Vilanter 1 each IH DAILY 11/05/18 [Trelegy Ellipta 100-62.5-25] Hydralazine HCl 100 mg PO PRN 11/05/18 Insulin Glargine,Hum.rec.anlog 10 unit SQ DAILY 11/05/18 [Toujeo Solostar] Metoprolol Succinate [Toprol XL -] 100 mg PO DAILY 11/05/18 Ondansetron [Zofran *Odt*] 4 mg SL DAILY 11/05/18 Ranolazine [Ranolazine ER] 500 mg PO BID 11/05/18 Telmisartan/Amlodipine 1 each PO DAILY 11/05/18 [Telmisartan-Amlodipine 80-10] REVIEW OF SYSTEMS CONSTITUTIONAL: Absent: fever, chills, diaphoresis, generalized weakness, malaise, loss of appetite, weight change HEENT: Absent: rhinorrhea, nasal congestion, throat pain, throat swelling, difficulty swallowing, mouth swelling, ear pain, eye pain, visual changes CARDIOVASCULAR: Absent: chest pain, syncope, palpitations, irregular heart rate, lightheadedness , peripheral edema RESPIRATORY: Absent: cough, shortness of breath, dyspnea with exertion, orthopnea, wheezing, stridor, hemoptysis GASTROINTESTINAL: abdominal pain, nausea, vomiting, constipation Absent: abdominal distension, diarrhea, melena, hematochezia GENITOURINARY: Absent: dysuria, frequency, urgency, hesitancy, hematuria, flank pain, genital pain MUSCULOSKELETAL: Absent: myalgia, arthralgia, joint swelling, back pain, neck pain SKIN: Absent: rash, itching, pallor HEMATOLOGIC/IMMUNOLOGIC: Absent: easy bleeding, easy bruising, lymphadenopathy, frequent infections ENDOCRINE: Absent: unexplained weight gain, unexplained weight loss, heat intolerance, cold intolerance NEUROLOGIC: mental status changes Absent: headache, focal weakness or paresthesias, dizziness, unsteady gait, seizure, bladder or bowel incontinence PSYCHIATRIC: Absent: anxiety, depression, suicidal or homicidal ideation, hallucinations. PHYSICAL EXAMINATION Vital Signs - 24 hr 03/03/19 03/04/19 20:36 00:57 Temperature 97.9 F Pulse Rate 81 Pulse Rate [ 77 Apical] Respiratory 18 20 Rate Blood Pressure 165/68 Blood Pressure 147/74 [Right Arm] O2 Sat by Pulse 100 100 Oximetry (%) GENERAL: Awake, alert, intermittently able to be oriented. Appears mildly agitated. Occasional tic. HEAD: Normal with no signs of trauma. EYES: Pupils equal, round and reactive to light, extraocular movements intact, sclera anicteric, conjunctiva clear. No lid lag. EARS, NOSE, THROAT: Ears normal, nares patent, oropharynx clear without exudates. Moist mucous membranes. NECK: Normal range of motion, supple without lymphadenopathy, JVD, or masses. LUNGS: Bibasilar crackles, coarse breath sounds and ronchi diffusely. No accessory muscle use. HEART: Regular rate and rhythm, normal S1 and S2, mild systolic murmur. ABDOMEN: Soft, diffusely tender, not distended, normoactive bowel sounds, no guarding, no rebound, no masses. No hepatomegaly or splenomegaly. MUSCULOSKELETAL: Normal range of motion at all joints. No bony deformities or tenderness. No CVA tenderness. UPPER EXTREMITIES: 2+ pulses, warm, well-perfused. No cyanosis. No clubbing. No peripheral edema. LUE fistula with palpable thrill LOWER EXTREMITIES: 2+ pulses, warm, well-perfused. No calf tenderness. No peripheral edema. NEUROLOGICAL: Cranial nerves II-XII intact. Normal speech. Gait not observed. Tremor in L hand. PSYCHIATRIC: Cooperative. Good eye contact. Appropriate mood and affect. SKIN: Warm, dry, normal turgor, no rashes or lesions noted, normal capillary refill. Laboratory Results - last 24 hr 03/03/19 03/03/19 22:50 22:50 WBC 4.5 RBC 4.52 Hgb 12.3 Hct 37.6 D MCV 83.2 MCH 27.2 MCHC 32.7 RDW 15.8 H Plt Count 237 MPV 8.5 Absolute Neuts (auto) 2.4 Neutrophils % 53.1 Lymphocytes % 34.4 Monocytes % 7.7 Eosinophils % 4.0 Basophils % 0.8 Nucleated RBC % 0 Sodium 140 Potassium 4.3 Chloride 102 Carbon Dioxide 35 H Anion Gap 4 L BUN 36.6 H Creatinine 6.2 H Est GFR (CKD-EPI)AfAm 6.42 Est GFR (CKD-EPI)NonAf 5.54 Random Glucose 107 H Calcium 10.3 H Total Bilirubin 1.1 H AST 12 L ALT 15 Alkaline Phosphatase 74 Total Protein 7.2 Albumin 4.2 ASSESSMENT/PLAN: Ms. Crouch is an 88 year old female with ESRD (HD /), COPD (on home O2 2L) , asthma, CHF, DM, HTN, HLD, A-fib, anemia, GERD, L incarcerated hernia and SBO s/p repair (11/2018) who presents with AMS #AMS likely 2/2 worsening dementia vs SBO vs cardiac Infectious w/u negative (afebrile, no leukocytosis, UA neg, CXR neg) EKG: new TWI in V5, V6. Initial trop negative, will trend. ?CHF exacerbation ; last echo in June showed EF 55-60%, impaired LV relaxaton, aneurysmal atrial septum, mild TR CT head: nonspecific microvascular ischemic disease; no acute intracranial pathology Order CTAP to r/o SBO F/u TSH, B12, ammonia Dysphagia screen and S&S eval. NPO and holding home meds pending results. #ESRD (HD /) Cont dialysis while admitted Pt takes home Renvela 800mg and Alendronate sodium 70mg #Atrial fibrillation Pt takes eliquis 2.5mg BID #HTN Pt takes Hydralazine 100mg, Metoprolol succinate 100mg, Telmisartan- Amlodipine 80-10 daily #COPD Pt on home O2 2L, cont Pt takes Trelecy Ellipta #DM2 Pt takes insulin glargine 10unit sq daily SSI TIDAC and frequent FSG monitoring #GERD Pt takes Esomeprazole 20mg daily #FEN Renal diet No standing fluids #DVT ppx Heparin sq #Dispo Monitor on med-surg ATTENDING PHYSICIAN STATEMENT I saw and evaluated the patient. I reviewed the resident's note and discussed the case with the resident. I agree with the resident's findings and plan as documented. SUBJECTIVE: OBJECTIVE: ASSESSMENT AND PLAN:
[2019-03-04 02:44] LABS: EPI CELLS 2.5 /HPF (0-5/HPF); HYALINE CASTS 0 /lpf (0-8); PH,URINE >= 9.0 (5.0-8.0); URINE APPEARANCE CLEAR; URINE BACTERIA 18.7 /hpf (NEGATIVE); URINE BILIRUBIN NEGATIVE (NEGATIVE); URINE COLOR YELLOW; URINE GLUCOSE (UA) NEGATIVE (NEGATIVE); URINE KETONE NEGATIVE (NEGATIVE); URINE LEUK ESTERASE TRACE (NEGATIVE); URINE NITRITE NEGATIVE (NEGATIVE); URINE PROTEIN 2+ (NEGATIVE); URINE RBC 1 /hpf (0-4); URINE UROBILINOGEN 0.2 mg/dL (0.2-1.0); URINE WBC 5 /hpf (0-5)
[2019-03-04 03:56] VITALS: BMI 18.0
[2019-03-04] MEDS ORDERED: HEPARIN NA (PORCINE) 5,000 UNITS/ML 1ML VIAL SQ SCH (06:00)
[2019-03-04] MEDS: INSULIN SLIDING SCALE (NOVOLOG) 1 VIAL SQ SCH ×3 (06:36→16:08)
[2019-03-04 07:01] LABS: BASO % 0.8 % (0-2.0); EOS % 3.2 % (0-4.5); HEMATOCRIT 32.3 % (32.4-45.2); HEMOGLOBIN 10.5 GM/dL (10.7-15.3); LYMPH % 35.2 % (8-40); MCH 27.2 pg (25.7-33.7); MCHC 32.6 g/dl (32.0-36.0); MEAN CELL VOLUME 83.4 fl (80-96); MEAN PLT VOLUME 9.3 fl (7.5-11.1); MONO % 9.8 % (3.8-10.2); PLATELET COUNT 194 K/MM3 (134-434); RBC 3.87 M/mm3 (3.60-5.2); RDW 15.6 % (11.6-15.6); WHITE BLOOD COUNT 4.5 K/mm3 (4.0-10.0)
[2019-03-04 07:09] LABS: ALBUMIN 3.7 g/dl (3.4-5.0); BLOOD UREA NITROGEN 38.6 mg/dL (7-18); CALCIUM 9.7 mg/dL (8.5-10.1); CREATININE 6.4 mg/dL (0.55-1.3); MAGNESIUM 2.2 mg/dL (1.8-2.4); N-TERMINAL BNP 2762.1 pg/ml (5-450); PHOSPHOROUS 3.5 mg/dL (2.5-4.9); POTASSIUM 4.4 mmol/L (3.5-5.1); TOT PROT 6.2 g/dl (6.4-8.2)
[2019-03-04] MEDS ORDERED: POLYETHYLENE GLYCOL 3350 119 GM BTL PO ONE (11:31)
[2019-03-04] MEDS ORDERED: DOCUSATE NA 100 MG/10 ML UNIT-DOSE CUPS PO PRN (11:31)
--- NOTE | 2019-03-04 11:51 | EKG ---
Test Reason : Blood Pressure : / mmHG Vent. Rate : 077 BPM Atrial Rate : 077 BPM P-R Int : 204 ms QRS Dur : 096 ms QT Int : 384 ms P-R-T Axes : 086 089 066 degrees QTc Int : 434 ms NORMAL SINUS RHYTHM VOLTAGE CRITERIA FOR LEFT VENTRICULAR HYPERTROPHY T WAVE ABNORMALITY, CONSIDER LATERAL ISCHEMIA ABNORMAL ECG WHEN COMPARED WITH ECG OF 05-NOV-2018 23:30, INVERTED T WAVES HAVE REPLACED NONSPECIFIC T WAVE ABNORMALITY IN LATERAL LEADS Confirmed by MADELINE ALDANA MD ([id number]) on 03/04/2019 11:50:55 AM Referred By: Confirmed By:MADELINE ALDANA MD
[2019-03-04] MEDS ORDERED: PT OWN MED DRAWER 7, Y5N ONE (12:37)
[2019-03-04] MEDS: SEVELAMER CARBONATE 800 MG TAB (FP) PO SCH ×2 (12:57→16:31)
--- NOTE | 2019-03-04 14:53 | PN ---
Progress Note (short form) - Note Progress Note: 88 year old female with ESRD (HD //), COPD (on home O2 2L), asthma, CHF, DM , HTN, HLD, a-fib, anemia, GERD, L incarcerated hernia and SBO s/p repair (2018) who presents with AMS. Now at baseline as per daughter. Daughter notes yesterday patient had an episode of lethargy, "locked jaw", refusal to tolerate PO, but overall was following commands during this time. Now symptoms resolved. Patient appears clinically dry, has several BP meds she takes at home, lethargic episode possible due to over medication w/ BP meds and volume depletion, awaiting renal evaluation for HD recommendations. PE VSS GA comfortable, Alert and orientated, answers to questions HEENT NC/AT, EOMI, dry MM, neck supple, b/l catarcts+ Chest CTAB, no crackles or wheezing CVS S1, S2+, irregularly irregular Abd thin body habitus, soft, mild tenderness, ND Ext No LE edema, thin extremities, dry skin Vital Signs - 24 hr 03/03/19 03/04/19 03/04/19 20:36 00:57 03:28 Temperature 97.9 F 98.3 F Pulse Rate 81 78 Pulse Rate [ 77 Apical] Respiratory 18 20 18 Rate Blood Pressure 165/68 147/77 Blood Pressure 147/74 [Right Arm] O2 Sat by Pulse 100 100 100 Oximetry (%) 03/04/19 03/04/19 03/04/19 06:00 08:48 09:04 Temperature 98.3 F Pulse Rate 78 72 Pulse Rate [ Apical] Respiratory 18 18 Rate Blood Pressure 147/77 158/75 Blood Pressure [Right Arm] O2 Sat by Pulse 100 100 Oximetry (%) Laboratory Results - last 24 hr 03/03/19 03/03/19 03/04/19 22:50 22:50 02:00 WBC 4.5 RBC 4.52 Hgb 12.3 Hct 37.6 D MCV 83.2 MCH 27.2 MCHC 32.7 RDW 15.8 H Plt Count 237 MPV 8.5 Absolute Neuts (auto) 2.4 Neutrophils % 53.1 Lymphocytes % 34.4 Monocytes % 7.7 Eosinophils % 4.0 Basophils % 0.8 Nucleated RBC % 0 Sodium 140 Potassium 4.3 Chloride 102 Carbon Dioxide 35 H Anion Gap 4 L BUN 36.6 H Creatinine 6.2 H Est GFR (CKD-EPI)AfAm 6.42 Est GFR (CKD-EPI)NonAf 5.54 POC Glucometer Random Glucose 107 H Calcium 10.3 H Phosphorus Magnesium Total Bilirubin 1.1 H AST 12 L ALT 15 Alkaline Phosphatase 74 Ammonia Creatine Kinase 33 Troponin I < 0.02 B-Natriuretic Peptide Total Protein 7.2 Albumin 4.2 Vitamin B12 TSH Thyroxine (T4) Urine Color Yellow Urine Appearance Clear Urine pH >= 9.0 H D Ur Specific [place] 1.011 Urine Protein 2+ H Urine Glucose (UA) Negative Urine Ketones Negative Urine Blood Negative Urine Nitrite Negative Urine Bilirubin Negative Urine Urobilinogen 0.2 Ur Leukocyte Esterase Trace Urine WBC (Auto) 5 Urine RBC (Auto) 1 Urine Casts (Auto) 0 U Epithel Cells (Auto) 2.5 Urine Bacteria (Auto) 18.7 03/04/19 03/04/19 03/04/19 04:10 05:10 05:10 WBC 4.5 RBC 3.87 Hgb 10.5 L Hct 32.3 L MCV 83.4 MCH 27.2 MCHC 32.6 RDW 15.6 Plt Count 194 MPV 9.3 Absolute Neuts (auto) 2.3 Neutrophils % 51.0 Lymphocytes % 35.2 Monocytes % 9.8 Eosinophils % 3.2 Basophils % 0.8 Nucleated RBC % 0 Sodium 140 Potassium 4.4 Chloride 103 Carbon Dioxide 31 Anion Gap 6 L BUN 38.6 H Creatinine 6.4 H Est GFR (CKD-EPI)AfAm 6.17 Est GFR (CKD-EPI)NonAf 5.33 POC Glucometer Random Glucose 101 Calcium 9.7 Phosphorus 3.5 Magnesium 2.2 Total Bilirubin 1.0 AST 11 L ALT 12 L Alkaline Phosphatase 62 Ammonia Creatine Kinase Troponin I < 0.02 B-Natriuretic Peptide 2762.1 H Total Protein 6.2 L Albumin 3.7 Vitamin B12 TSH 0.79 Thyroxine (T4) 11.2 Urine Color Urine Appearance Urine pH Ur Specific [place] Urine Protein Urine Glucose (UA) Urine Ketones Urine Blood Urine Nitrite Urine Bilirubin Urine Urobilinogen Ur Leukocyte Esterase Urine WBC (Auto) Urine RBC (Auto) Urine Casts (Auto) U Epithel Cells (Auto) Urine Bacteria (Auto) 03/04/19 03/04/19 03/04/19 05:10 05:10 06:33 WBC RBC Hgb Hct MCV MCH MCHC RDW Plt Count MPV Absolute Neuts (auto) Neutrophils % Lymphocytes % Monocytes % Eosinophils % Basophils % Nucleated RBC % Sodium Potassium Chloride Carbon Dioxide Anion Gap BUN Creatinine Est GFR (CKD-EPI)AfAm Est GFR (CKD-EPI)NonAf POC Glucometer 110 Random Glucose Calcium Phosphorus Magnesium Total Bilirubin AST ALT Alkaline Phosphatase Ammonia 17.40 Creatine Kinase Troponin I B-Natriuretic Peptide Total Protein Albumin Vitamin B12 446 TSH Thyroxine (T4) Urine Color Urine Appearance Urine pH Ur Specific [place] Urine Protein Urine Glucose (UA) Urine Ketones Urine Blood Urine Nitrite Urine Bilirubin Urine Urobilinogen Ur Leukocyte Esterase Urine WBC (Auto) Urine RBC (Auto) Urine Casts (Auto) U Epithel Cells (Auto) Urine Bacteria (Auto) 03/04/19 11:15 WBC RBC Hgb Hct MCV MCH MCHC RDW Plt Count MPV Absolute Neuts (auto) Neutrophils % Lymphocytes % Monocytes % Eosinophils % Basophils % Nucleated RBC % Sodium Potassium Chloride Carbon Dioxide Anion Gap BUN Creatinine Est GFR (CKD-EPI)AfAm Est GFR (CKD-EPI)NonAf POC Glucometer 94 Random Glucose Calcium Phosphorus Magnesium Total Bilirubin AST ALT Alkaline Phosphatase Ammonia Creatine Kinase Troponin I B-Natriuretic Peptide Total Protein Albumin Vitamin B12 TSH Thyroxine (T4) Urine Color Urine Appearance Urine pH Ur Specific [place] Urine Protein Urine Glucose (UA) Urine Ketones Urine Blood Urine Nitrite Urine Bilirubin Urine Urobilinogen Ur Leukocyte Esterase Urine WBC (Auto) Urine RBC (Auto) Urine Casts (Auto) U Epithel Cells (Auto) Urine Bacteria (Auto) Current Medications Generic Name Dose Route Start Last Admin Trade Name Freq PRN Reason Stop Dose Admin Apixaban 2.5 mg 03/04/19 22:00 Eliquis - PO BID [facility] Atorvastatin Calcium 20 mg 03/04/19 22:00 Lipitor - PO HS [facility] Docusate Sodium 100 mg 03/04/19 11:31 Colace Liquid - PO DAILY PRN CONSTIPATION Insulin Aspart 1 vial 03/04/19 07:00 03/04/19 11:42 Novolog Vial Sliding Scale - SQ Not Given TIDAC [facility] Protocol Isosorbide Mononitrate 30 mg 03/05/19 10:00 Imdur - PO DAILY [facility] Metoprolol Succinate 50 mg 03/04/19 11:45 03/04/19 12:57 Toprol Xl - PO 50 mg DAILY [facility] Administration Pantoprazole Sodium 20 mg 03/05/19 10:00 Protonix - PO DAILY [facility] Ranolazine 500 mg 03/04/19 22:00 Ranexa - PO BID [facility] Senna 1 tab 03/04/19 22:00 Senna - PO HS [facility] Sevelamer Carbonate 800 mg 03/04/19 12:00 03/04/19 12:57 Renvela - PO 800 mg TIDCM [facility] Administration A/P: 88 F ESRD on HD, last HD Friday, COPD on home O2, HFpEF, HTN, HLD, Afib on AC, presents with acute episode of weakness, lethargy, not tolerating PO, but following commands, episode likely due to polypharmacy and volume depletion. Renal consulted for HD recommendations. ESRD on HD ?change to HD schedule, to be confirmed by renal, patient may need less fluids to be removed during HD to avoid volume depletion Renal consult: Dr. Reis EKG changes TWI in lateral leads Trops neg x2, likely due to demand no signs of ACS in view of negative trops, absent chest pain Cont. to monitor HTN over controlled, patient on ARB/CCB/hydralazine/BB at high doses as well as Imdur Will keep on metoprolol 50mg ER (lowered dose) and Imdur, keep off ARB/CCB/ Hydralazine for now as BP is acceptable and observe Afib rate controlled no signs of bleeding, cont. AC COPD lungs CTAB, not in acute exacerbation, no accessory muscle use for respiration Cont. home COPD meds, Albuterol PRN HLD cont. Statin GERD PPI/H2 cont. DVT ppx: Eliquis (adjusted dose for weight/CRE) GI ppx: H2/PPI Visit type - Emergency Visit Emergency Visit: Yes ED Registration Date: 03/04/19 Care time: The patient presented to the Emergency Department on the above date and was hospitalized for further evaluation of their emergent condition. - New Patient This patient is new to me today: Yes Date on this admission: 03/04/19 - Critical Care Critical Care patient: No
[2019-03-04] MEDS ORDERED: SODIUM CHLORIDE 250 ML IV PRN (14:55)
--- NOTE | 2019-03-04 14:56 | CONSULT ---
Consult Consult Specialty:: Nephrology Reason for Consultation:: esrd - History of Present Illness Chief Complaint: altered mental status History of Present Illness: Pt is an 88 year old female with pmhx of esrd, copd on home o2, asthma, chf, dm , htn, hld, a-fib, anemia, and gerd who presents to the er with altered mental status. She has been getting increasingly confused over the last year. She had gone to sleep then woke up and was not talkative at all. It is not clear if she had an episode of syncope. She is now awake and appears at baseline. She is due for HD today. - History Source History Provided By: Family Member, Medical Record - Past Medical History FAMILY PROTECTION SPECIALIST: Yes: Dementia Cardio/Vascular: Yes: HTN Pulmonary: Yes: COPD, O2 Dependent, Pneumonia. No: Asthma, Pulmonary Embolus, Sleep Apnea Gastrointestinal: Yes: GERD Renal/: Yes: Renal Inusuff, Hemodialysis, Renal Calculi (maybe- she had flank pain) ...: No Endocrine: Yes: Diabetes Mellitus - Past Surgical History Past Surgical History: Yes: AV Fistula/Graft - Alcohol/Substance Use Hx Alcohol Use: No - Smoking History Smoking history: Never smoked Have you smoked in the past 12 months: No Aproximately how many cigarettes per day: 0 If you are a former smoker, when did you quit?: 50 YEARS - Social History Usual Living Arrangement: With Child Home Medications - Allergies Allergies/Adverse Reactions: Allergies Allergy/AdvReac Type Severity Reaction Status Date / Time egg AdvReac Vomiting Verified 03/03/19 20:38 - Home Medications Home Medications: Ambulatory Orders Apixaban [Eliquis -] 2.5 mg PO BID tablet 06/13/18 Isosorbide Mononitrate [Imdur -] 30 mg PO DAILY tab.sr.24h 06/13/18 Sevelamer Carbonate [Renvela -] 800 mg PO TIDCM tab 06/13/18 Alendronate Sodium [Binosto] 70 mg PO DAILY 11/05/18 Atorvastatin Ca [Lipitor] 20 mg PO HS 11/05/18 Esomeprazole Magnesium 20 mg PO DAILY 11/05/18 Fluticasone/Umeclidin/Vilanter [Trelegy Ellipta 100-62.5-25] 1 each IH DAILY 07/19 Hydralazine HCl 100 mg PO PRN 11/05/18 Insulin Glargine,Hum.rec.anlog [Toumagedo Solostar] 10 unit SQ DAILY 11/05/18 Metoprolol Succinate [Toprol XL -] 100 mg PO DAILY 11/05/18 Ondansetron [Zofran *Odt*] 4 mg SL DAILY 11/05/18 Ranolazine [Ranolazine ER] 500 mg PO BID 11/05/18 Telmisartan/Amlodipine [Telmisartan-Amlodipine 80-10] 1 each PO DAILY 11/05/18 Family Medical History Family History: Denies Review of Systems - Review of Systems Constitutional: reports: Lethargy Eyes: reports: No Symptoms HENT: reports: No Symptoms Neck: reports: No Symptoms Cardiovascular: reports: No Symptoms Respiratory: reports: No Symptoms Gastrointestinal: reports: No Symptoms Genitourinary: reports: No Symptoms Musculoskeletal: reports: No Symptoms Integumentary: reports: No Symptoms Neurological: reports: No Symptoms Endocrine: reports: No Symptoms Hematology/Lymphatic: reports: No Symptoms Psychiatric: reports: No Symptoms Physical Exam Vital Signs: Vital Signs Temperature 98.3 F 03/04/19 06:00 Pulse Rate 72 03/04/19 09:04 Respiratory Rate 18 03/04/19 09:04 Blood Pressure 158/75 03/04/19 09:04 O2 Sat by Pulse Oximetry (%) 100 03/04/19 08:48 Constitutional: Yes: Calm Eyes: Yes: Conjunctiva Clear HENT: Yes: Atraumatic Neck: Yes: Supple Cardiovascular: Yes: S1, S2 Respiratory: Yes: CTA Bilaterally, On Nasal O2 Gastrointestinal: Yes: Soft Renal/: Yes: WNL Musculoskeletal: Yes: WNL Extremities: Yes: WNL Edema: No Neurological: Yes: Confusion Labs: CBC, BMP 03/04/19 05:10 03/04/19 05:10 Imaging - Results Chest X-ray: Report Reviewed Problem List - Problems (1) Altered mental status Code(s): R41.82 - ALTERED MENTAL STATUS, UNSPECIFIED Qualifiers: Altered mental status type: transient alteration of awareness Qualified Code(s): R40.4 - Transient alteration of awareness (2) ESRD (end stage renal disease) Code(s): N18.6 - END STAGE RENAL DISEASE Assessment/Plan Current Medications Generic Name Dose Route Start Last Admin Trade Name Freq PRN Reason Stop Dose Admin Apixaban 2.5 mg 03/04/19 22:00 Eliquis - PO BID [facility] Atorvastatin Calcium 20 mg 03/04/19 22:00 Lipitor - PO HS [facility] Docusate Sodium 100 mg 03/04/19 11:31 Colace Liquid - PO DAILY PRN CONSTIPATION Insulin Aspart 1 vial 03/04/19 07:00 03/04/19 11:42 Novolog Vial Sliding Scale - SQ Not Given TIDAC [facility] Protocol Isosorbide Mononitrate 30 mg 03/05/19 10:00 Imdur - PO DAILY [facility] Metoprolol Succinate 50 mg 03/04/19 11:45 03/04/19 12:57 Toprol Xl - PO 50 mg DAILY [facility] Administration Pantoprazole Sodium 20 mg 03/05/19 10:00 Protonix - PO DAILY [facility] Ranolazine 500 mg 03/04/19 22:00 Ranexa - PO BID [facility] Senna 1 tab 03/04/19 22:00 Senna - PO HS [facility] Sevelamer Carbonate 800 mg 03/04/19 12:00 03/04/19 12:57 Renvela - PO 800 mg TIDCM [facility] Administration Impression 1. ESRD 2. HTN 3. HLD 4. COPD 5. DM 6. pos heb b core 7. altered mental status 8. anemia 9. a-fib Plan - HD today - will not UF fluids today - pt left HD at her dry weight - concern for polypharmacy, bp meds adjusted - monitor bp closely - renal diet - pt on TTS schedule, was dialzyed on Friday due to holiday
--- NOTE | 2019-03-04 15:14 | EKG ---
Test Reason : Blood Pressure : / mmHG Vent. Rate : 080 BPM Atrial Rate : 080 BPM P-R Int : 208 ms QRS Dur : 088 ms QT Int : 372 ms P-R-T Axes : 074 065 088 degrees QTc Int : 429 ms NORMAL SINUS RHYTHM POSSIBLE LEFT ATRIAL ENLARGEMENT SEPTAL INFARCT , AGE UNDETERMINED T WAVE ABNORMALITY, CONSIDER LATERAL ISCHEMIA ABNORMAL ECG WHEN COMPARED WITH ECG OF 03-MAR-2019 23:10, NO SIGNIFICANT CHANGE WAS FOUND Confirmed by MADELINE ALDANA MD ([id number]) on 03/04/2019 3:14:19 PM Referred By: Confirmed By:MADELINE ALDANA MD
[2019-03-04] MEDS ORDERED: OLANZapine 5 MG TABLET PO ONE (20:58)
[2019-03-04] MEDS: ATORVASTATIN CA 20 MG TABLET (FP) PO SCH ×2 (21:20→21:56)
[2019-03-04] MEDS: RANOLAZINE E.R. 500 MG TABLET (FP) PO SCH (21:20)
[2019-03-04] MEDS: APIXABAN 2.5 MG TABLET PO SCH ×2 (21:20→21:55)
[2019-03-04] MEDS: SENNOSIDES 8.6MG TABLET (FP) PO SCH ×2 (21:20→21:56)
[2019-03-05] MEDS: INSULIN SLIDING SCALE (NOVOLOG) 1 VIAL SQ SCH ×2 (07:00→12:52)
[2019-03-05] MEDS: SEVELAMER CARBONATE 800 MG TAB (FP) PO SCH ×2 (08:00→12:52)
[2019-03-05] MEDS ORDERED: PANTOPRAZOLE 20 MG TABLET (FP) PO SCH (10:00)
[2019-03-05] MEDS ORDERED: ISOSORBIDE MONONITRATE 30 MG TAB.SR.24H (FP) PO SCH (10:00)
[2019-03-05] MEDS: APIXABAN 2.5 MG TABLET PO SCH (10:47)
[2019-03-05] MEDS: RANOLAZINE E.R. 500 MG TABLET (FP) PO SCH (10:48)
--- NOTE | 2019-03-05 11:49 | DS ---
Physical Exam: Vital Signs Period Temp Pulse Resp BP Sys/Betancourt Pulse Ox Last 24 Hr 97.5 F-98.3 F 65-92 18-21 134-171/60-93 97-100 PHYSICAL EXAM GENERAL: The patient is awake, alert, and fully oriented, in no acute distress. HEAD: Normal with no signs of trauma. EYES: PERRL, extraocular movements intact, sclera anicteric, conjunctiva clear. ENT: Ears normal, nares patent, oropharynx clear without exudates, moist mucous membranes. NECK: Trachea midline, full range of motion, supple. LUNGS: Breath sounds equal, clear to auscultation bilaterally, no wheezes, no crackles, no accessory muscle use. HEART: Regular rate and rhythm, S1, S2 without murmur, rub or gallop. ABDOMEN: Soft, nontender, nondistended, normoactive bowel sounds, no guarding, no rebound, no hepatosplenomegaly, no masses. EXTREMITIES: 2+ pulses, warm, well-perfused, no edema. NEUROLOGICAL: Cranial nerves II through XII grossly intact. Normal speech, gait not observed. PSYCH: Normal mood, normal affect. SKIN: Warm, dry, normal turgor, no rashes or lesions noted. LABS Laboratory Results - last 24 hr 03/04/19 03/05/19 05:10 06:46 POC Glucometer 95 PTH Intact 167 H HOSPITAL COURSE: Date of Admission:03/04/19 Date of Discharge: 03/05/19 Discharge Summary Problems reviewed: Yes Reason For Visit: ALTERED MENTAL STATUS Current Active Problems Altered mental status (Acute) Nonspecific ST-T wave electrocardiographic changes (Acute) Condition: Good - Instructions Referrals: Reid Marrufo [Primary Care Provider] - Disposition: VNS/HOME HEALTH CARE - Home Medications Comprehensive Discharge Medication List: Ambulatory Orders Apixaban [Eliquis -] 2.5 mg PO BID tablet 06/13/18 Isosorbide Mononitrate [Imdur -] 30 mg PO DAILY tab.sr.24h 06/13/18 Sevelamer Carbonate [Renvela -] 800 mg PO TIDCM tab 06/13/18 Alendronate Sodium [Binosto] 70 mg PO DAILY 11/05/18 Atorvastatin Ca [Lipitor] 20 mg PO HS 11/05/18 Esomeprazole Magnesium 20 mg PO DAILY 11/05/18 Fluticasone/Umeclidin/Vilanter [Trelegy Ellipta 100-62.5-25] 1 each IH DAILY 07/19 Insulin Glargine,Hum.rec.anlog [Alejandro Spencer] 10 unit SQ DAILY 11/05/18 Metoprolol Succinate [Toprol XL -] 100 mg PO DAILY 11/05/18 Ondansetron [Zofran *Odt*] 4 mg SL DAILY 11/05/18 Ranolazine [Ranolazine ER] 500 mg PO BID 11/05/18
--- NOTE | 2019-03-05 12:10 | DS ---
Physical Exam: Vital Signs Period Temp Pulse Resp BP Sys/Betancourt Pulse Ox Last 24 Hr 97.5 F-98.3 F 65-92 18-21 134-171/60-93 97-100 PHYSICAL EXAM PE VSS GA comfortable, alert and orientated, sitting up in bed, daughter at bedside HEENT NC/AT, EOMI, no JVD, neck supple Chest CTAB, no crackels or wheezing CVS S1, S2+, RRR Abd soft, NT, ND, BS+ Ext No LE edema, no calf tenderness, moves all 4 ext. LABS Laboratory Results - last 24 hr 03/04/19 03/05/19 05:10 06:46 POC Glucometer 95 PTH Intact 167 H HOSPITAL COURSE: 88 F h/o ESRD (HD T/), COPD (on home O2 2L), asthma, CHF, DM, HTN, HLD, a- fib, anemia, GERD, L incarcerated hernia and SBO s/p repair (11/2018) who presents with AMS. Patient was found to be clinically dry, at her dry weight, not requiring HD during admission. Patient was slowly titrated off her home BP medications, and BP improved as well as mental status. Patient cont. her Metoprolol and Imdur, and was taken off Telmasartan/Hydralazine/Amlodipine. As per family patient slowly went back to her baseline, denied dizziness/SOB/CP, feels comfortable now. Ready for discharge with follow up with her scheduled HD appointment on Friday (tomorrow). Date of Admission:03/04/19 Date of Discharge: 03/05/19 Minutes to complete discharge: 45 Discharge Summary Problems reviewed: Yes Reason For Visit: ALTERED MENTAL STATUS Current Active Problems Altered mental status (Acute) Nonspecific ST-T wave electrocardiographic changes (Acute) Hospital Course: 88 F h/o ESRD (HD /), COPD (on home O2 2L), asthma, CHF, DM, HTN, HLD, a- fib, anemia, GERD, L incarcerated hernia and SBO s/p repair (11/2018) who presents with AMS. Patient was found to be clinically dry, at her dry weight, not requiring HD during admission. Patient was slowly titrated off her home BP medications, and BP improved as well as mental status. Patient cont. her Metoprolol and Imdur, and was taken off Telmasartan/Hydralazine/Amlodipine. As per family patient slowly went back to her baseline, denied dizziness/SOB/CP, feels comfortable now. Ready for discharge with follow up with her scheduled HD appointment on Friday (tomorrow). PE VSS GA comfortable, alert and orientated, sitting up in bed, daughter at bedside HEENT NC/AT, EOMI, no JVD, neck supple Chest CTAB, no crackels or wheezing CVS S1, S2+, RRR Abd soft, NT, ND, BS+ Ext No LE edema, no calf tenderness, moves all 4 ext. A/P: 88 F ESRD on HD, HTn, COPD on home O2, Asthma, HFpEF, T2DM, HLD, Afib on AC admitted for symptomatic hypotension due to polypharmacy. Patient now at baseline after titrating BP medications. AMS, resolved -likely due to volume depletion and polypharmacy -patient MS now at baseline, patient and patient's family instructed to DC Telmisartan/Amlodine and Hydralazine, and continue rest of BP medications as same doses. -Follow up with outpatient charge weigher, resume HD schedule tomorrow at outpatient HD center ESRD on HD resume Fri//Fri schedule, next HD appointment tomorrow cleared by renal: Dr. Reis HTN controlled, 142/60, systolic ranging 130-150 which is acceptable increased dose of Metoprolol to 100mg, cont. Imdur Avoid overcontrol of BP as this may worsen MS and put patient at increased risk for falls HLD cont. statin COPD not in acute exacerbation Cont. home COPD meds, cont. Home O2 therapy HFpEF not in acute exacerbation currently euvolemic Cont. BB and Imdur T2DM Cont. Home DM 2 medications Afib on Eliquis Rate controlled on BB, cont. Eliquis Discharge instructions: Patient is to STOP Telmisartan/Amlodine and Hydralazine. Patient instructed to continue rest of her home medications and follow up with her PCP/charge weigher. Disposition: Patient to be discharged home with BUSINESS PROCESS CONSULTANT services and family support. Patient instructed to resume HD schedule for tomorrow at her outpatient HD center, and resume home medications with the above recommendations. Condition: Good - Instructions Diet, Activity, Other Instructions: Patient instructed to resume their home diet. Please make an appointment to see your PCP/charge weigher a within 1 week of discharge. Please resume your Friday, and Friday hemodialysis schedule at your outpatient hemodialysis center. Please return to home activities as tolerated. Please call 911 or come directly to the emergency department if you experience unusual headache, vision changes, shortness of breath, chest pain, numbness, tingling, loss of alertness/ awareness, loss of function, unusual bleeding or any alarming symptoms. Thank you for allowing me to care for you. Bianca Hyde Medical Referrals: Reid Marrufo [Primary Care Provider] - Disposition: VNS/HOME HEALTH CARE - Home Medications Comprehensive Discharge Medication List: Ambulatory Orders Apixaban [Eliquis -] 2.5 mg PO BID tablet 06/13/18 Isosorbide Mononitrate [Imdur -] 30 mg PO DAILY tab.sr.24h 06/13/18 Sevelamer Carbonate [Renvela -] 800 mg PO TIDCM tab 06/13/18 Alendronate Sodium [Binosto] 70 mg PO DAILY 11/05/18 Atorvastatin Ca [Lipitor] 20 mg PO HS 11/05/18 Esomeprazole Magnesium 20 mg PO DAILY 11/05/18 Fluticasone/Umeclidin/Vilanter [Trelegy Ellipta 100-62.5-25] 1 each IH DAILY 07/19 Insulin Glargine,Hum.rec.anlog [Toujeo Solostar] 10 unit SQ DAILY 11/05/18 Metoprolol Succinate [Toprol XL -] 100 mg PO DAILY 11/05/18 Ondansetron [Zofran *Odt*] 4 mg SL DAILY 11/05/18 Ranolazine [Ranolazine ER] 500 mg PO BID 11/05/18 Prescription Drug Monitoring Program (I-STOP) results: I-STOP not reviewed This patient is new to me today: No Emergency Visit: Yes ED Registration Date: 03/04/19 Care time: The patient presented to the Emergency Department on the above date and was hospitalized for further evaluation of their emergent condition. Critical Care patient: No - Discharge Referral Referred to [facility] Med P.C.: No
[2019-03-05 13:41] VITALS: BP 149/75; PULSE 80; TEMP 98.2
--- NOTE | 2019-03-05 14:31 | PN ---
Progress Note, Physician History of Present Illness: Pt seen and examined at bedside. She is awake and appears comfortable. - Current Medication List Current Medications: Active Medications Apixaban (Eliquis -) 2.5 mg PO BID [facility] Last Admin: 03/05/19 10:47 Dose: 2.5 mg Atorvastatin Calcium (Lipitor -) 20 mg PO [facility] Last Admin: 03/04/19 21:56 Dose: Not Given Docusate Sodium (Colace Liquid -) 100 mg PO DAILY PRN PRN Reason: CONSTIPATION Last Admin: 03/04/19 21:20 Dose: 100 mg Sodium Chloride (Normal Saline -) 250 mls @ 3,000 mls/hr IV PRN PRN PRN Reason: Hypotension during Dialysis Stop: 03/05/19 14:55 Insulin Aspart (Novolog Vial Sliding Scale -) 1 vial SQ TIDAC [facility]; Protocol Last Admin: 03/05/19 12:52 Dose: Not Given Isosorbide Mononitrate (Imdur -) 30 mg PO DAILY [facility] Last Admin: 03/05/19 10:48 Dose: 30 mg Metoprolol Succinate (Toprol Xl -) 100 mg PO DAILY [facility] Last Admin: 03/05/19 10:47 Dose: 100 mg Pantoprazole Sodium (Protonix -) 20 mg PO DAILY [facility] Last Admin: 03/05/19 10:48 Dose: 20 mg Ranolazine (Ranexa -) 500 mg PO BID [facility] Last Admin: 03/05/19 10:48 Dose: 500 mg Senna (Senna -) 1 tab PO [facility] Last Admin: 03/04/19 21:56 Dose: Not Given Sevelamer Carbonate (Renvela -) 800 mg PO TIDCM [facility] Last Admin: 03/05/19 12:52 Dose: 800 mg - Objective Vital Signs: Vital Signs Temperature 98.2 F 03/05/19 13:40 Pulse Rate 80 03/05/19 13:40 Respiratory Rate 18 03/05/19 13:40 Blood Pressure 149/75 03/05/19 13:40 O2 Sat by Pulse Oximetry (%) 97 03/05/19 09:00 Constitutional: Yes: Calm Eyes: Yes: Conjunctiva Clear HENT: Yes: Atraumatic Neck: Yes: Supple Cardiovascular: Yes: S1, S2 Respiratory: Yes: CTA Bilaterally Gastrointestinal: Yes: Normal Bowel Sounds, Soft Genitourinary: Yes: WNL Musculoskeletal: Yes: WNL Edema: No Integumentary: Yes: WNL Neurological: Yes: Oriented Psychiatric: Yes: Oriented Labs: CBC, BMP 03/04/19 05:10 03/04/19 05:10 Problem List - Problems (1) Altered mental status Code(s): R41.82 - ALTERED MENTAL STATUS, UNSPECIFIED Qualifiers: Altered mental status type: transient alteration of awareness Qualified Code(s): R40.4 - Transient alteration of awareness (2) ESRD (end stage renal disease) Code(s): N18.6 - END STAGE RENAL DISEASE Assessment/Plan Current Medications Generic Name Dose Route Start Last Admin Trade Name Freq PRN Reason Stop Dose Admin Apixaban 2.5 mg 03/04/19 22:00 03/05/19 10:47 Eliquis - PO 2.5 mg BID [facility] Administration Atorvastatin Calcium 20 mg 03/04/19 22:00 03/04/19 21:56 Lipitor - PO Not Given HS [facility] Docusate Sodium 100 mg 03/04/19 11:31 03/04/19 21:20 Colace Liquid - PO 100 mg DAILY PRN Administration CONSTIPATION Sodium Chloride 250 mls @ 3,000 mls/hr 03/04/19 14:55 Normal Saline - IV 03/05/19 14:55 PRN PRN Hypotension during Dialysis Insulin Aspart 1 vial 03/04/19 07:00 03/05/19 12:52 Novolog Vial Sliding Scale - SQ Not Given TIDAC [facility] Protocol Isosorbide Mononitrate 30 mg 03/05/19 10:00 03/05/19 10:48 Imdur - PO 30 mg DAILY [facility] Administration Metoprolol Succinate 100 mg 03/05/19 10:00 03/05/19 10:47 Toprol Xl - PO 100 mg DAILY [facility] Administration Pantoprazole Sodium 20 mg 03/05/19 10:00 03/05/19 10:48 Protonix - PO 20 mg DAILY [facility] Administration Ranolazine 500 mg 03/04/19 22:00 03/05/19 10:48 Ranexa - PO 500 mg BID [facility] Administration Senna 1 tab 03/04/19 22:00 03/04/19 21:56 Senna - PO Not Given HS [facility] Sevelamer Carbonate 800 mg 03/04/19 12:00 03/05/19 12:52 Renvela - PO 800 mg TIDCM [facility] Administration Impression 1. ESRD 2. HTN 3. HLD 4. COPD 5. DM 6. pos heb b core 7. altered mental status 8. anemia 9. a-fib Plan - pt has HD set up as outpt tomorrow - monitor bp - bp meds adjusted - renal diet - pt on TTS schedule
== END 2019-03-05 16:24 | disposition home health service (06) ==
LOC: JER 20:30 → JERBED 03-04 01:45 → J4W 03-04 03:19
PROVIDERS: ADMIT Internal Medicine
PROC: 3E013GC Introduction of Other Therapeutic Substance into Subcutaneous Tissue, Percutaneous Approach (ICD-10-PCS; principal; 2019-03-04)
DX: R40.4 Transient alteration of awareness (principal); R94.31 Abnormal electrocardiogram [ECG] [EKG]; E11.22 Type 2 diabetes mellitus with diabetic chronic kidney disease; I13.2 Hypertensive heart and chronic kidney disease with heart failure and with stage 5 chronic kidney disease, or end stage renal disease; I50.9 Heart failure, unspecified; N18.6 End stage renal disease; Z99.2 Dependence on renal dialysis; Z79.4 Long term (current) use of insulin; I48.91 Unspecified atrial fibrillation; E78.5 Hyperlipidemia, unspecified; J44.9 Chronic obstructive pulmonary disease, unspecified; D64.9 Anemia, unspecified; K21.9 Gastro-esophageal reflux disease without esophagitis; Z98.890 Other specified postprocedural states; Z91.012 Allergy to eggs; Z99.81 Dependence on supplemental oxygen
CPT/HCPCS: 36415; 70450-TC; 71045-TC-FY; 74176-TC; 80053; 81003; 82140; 82550; 82607; 82962; 83735; 83880; 83970; 84100; 84436; 84443; 84484; 85025; 86803; 87086; 87340; 93005; 93010; 96372; 97116-GP; 97161-GP; 99285-25; G0378; J1644

== ENCOUNTER 2019-03-12 10:16 | Inpatient (IN) | payer OTHER ==
[2019-03-12] MEDS ORDERED: methylPREDNISolone NA SUCC 125 MG/2 ML VIAL IVPB ONE (11:10)
--- NOTE | 2019-03-12 11:10 | PDOC ---
Attending Attestation - Resident Resident Name: Rusty Henryan - ED Attending Attestation I have performed the following: I have examined & evaluated the patient, The case was reviewed & discussed with the resident, I agree w/resident's findings & plan, Exceptions are as noted - HPI HPI: 03/12/19 12:33 Ms. Crouch is an 88 yo F history of COPD (2L NC), ESRD (iHD T,Th,Sa) who presents for evaluation of 2 days of shortness of breath. The pt reports feeling short of breath since yesterday, despite dialysis yesterday. She used her nebulizer at home with little relief. Daughter did not notice any fevers/chills Pt has not complained of chest pain Allergies: NKDA 03/12/19 14:03 03/12/19 14:03 03/12/19 14:03 03/13/19 12:36 - Physicial Exam PE: 03/12/19 11:10 GENERAL: The patient is in no acute distress, tachypneic. HEAD: Normal EYES: PERRLA, EOMI, sclera anicteric, conjunctiva clear. ENT: Ears normal, nares patent, oropharynx clear without exudates. Moist mucous membranes. NECK: Normal range of motion, supple without lymphadenopathy LUNGS: (+) coarse breath sounds. Breath sounds equal, No wheezes, and no crackles. HEART:Regular rate and rhythm, normal S1 and S2 without murmur, rub or gallop. ABDOMEN: Soft, nontender, normoactive bowel sounds. No guarding, no rebound. No masses palpable. EXTREMITIES: Normal range of motion, no edema. No erythema, or tenderness. NEUROLOGICAL: Cranial nerves II through XII grossly intact. Normal speech. No focal neurological deficits. MUSCULOSKELETAL: Back non-tender to palpation, no CVA tenderness SKIN: Warm, Dry, normal turgor, no rashes or lesions noted. - Critical Care Time Total Critical Care Time: 35 Critical Care Statement: The care of this patient involved high complexity decision making to prevent further life threatening deterioration of the patient 's condition and/or to evaluate & treat vital organ system(s) failure or risk of failure. - Medical Decision Making 03/12/19 12:51 88 yo F presenting with shortness of breath No chest pain SOB began yesterday while in HD no improvement today Rectal temp 101 EKG: ST rate of 104 bpm, axis nml, intervals nml, no st elevation, t wave inversion v5, v6 03/12/19 12:54 Laboratory Tests 03/12/19 03/12/19 10:51 10:51 WBC 7.3 Hgb 10.3 L Hct 31.6 L Plt Count 178 Sodium 135 L Potassium 4.1 Chloride 95 L Carbon Dioxide 36 H BUN 17.7 Creatinine 3.5 H Random Glucose 245 H Troponin I 0.02 CXR: increased markings at the base Pt placed on bipap with marked improvement in work of breathing 03/12/19 12:55 Will broadly cover Will admit Renal consult placed Will closely monitor
[2019-03-12] MEDS: ALBUTEROL SO4 2.5/IPRATROPIUM 0.5 INH SOL 3 ML VIAL.NEB. NEB SCH ×3 (11:15→11:49)
[2019-03-12] MEDS ORDERED: methylPREDNISolone NA SUCC 125 MG/2 ML VIAL ONE (11:20)
[2019-03-12] MEDS ORDERED: ALBUTEROL SO4 2.5/IPRATROPIUM 0.5 INH SOL 3 ML VIAL.NEB. NEB ONE (11:20)
[2019-03-12 11:28] LABS: BASO % 0.1 % (0-2.0); EOS % 0.2 % (0-4.5); HEMATOCRIT 31.6 % (32.4-45.2); HEMOGLOBIN 10.3 GM/dL (10.7-15.3); LYMPH % 13.9 % (8-40); MCH 26.9 pg (25.7-33.7); MCHC 32.7 g/dl (32.0-36.0); MEAN CELL VOLUME 82.1 fl (80-96); MEAN PLT VOLUME 9.3 fl (7.5-11.1); MONO % 8.9 % (3.8-10.2); NEUT % 76.9 % (42.8-82.8); PLATELET COUNT 178 K/MM3 (134-434); RBC 3.84 M/mm3 (3.60-5.2); RDW 16.5 % (11.6-15.6); WHITE BLOOD COUNT 7.3 K/mm3 (4.0-10.0)
[2019-03-12 11:42] LABS: ALBUMIN 3.8 g/dl (3.4-5.0); BILIRUBIN,TOTAL 0.8 mg/dL (0.2-1); BLOOD UREA NITROGEN 17.7 mg/dL (7-18); CALCIUM 9.3 mg/dL (8.5-10.1); CREATININE 3.5 mg/dL (0.55-1.3); POTASSIUM 4.1 mmol/L (3.5-5.1)
[2019-03-12] MEDS ORDERED: PIPERACILLIN/TAZOB 3.375 GM 3.375 GM in DEXTROSE 5%-WATER - 50 ML IVPB ONE (11:54)
[2019-03-12] MEDS ORDERED: PIPERACILLIN/TAZOB 3.375 GM 3.375 GM/50 ML BAG IVPB ONE (12:05)
--- NOTE | 2019-03-12 12:06 | PDOC ---
History of Present Illness - General Chief Complaint: Shortness of Breath Stated Complaint: S.O.B./ABD PAIN Time Seen by Provider: 03/12/19 10:37 - History of Present Illness Initial Comments: The pt is an 88F w/ a history of COPD (2L NC), ESRD (iHD T,Th,Sa) who presents for evaluation of 2 days of shortness of breath. The pt reports feeling short of breath since after dialysis yesterday. She used her nebulizer at home with little relief. She denies fevers/chills, chest pain, abdominal pain, N/V/C/D, dysuria, hematuria 03/12/19 12:02 Past History - Past Medical History Allergies/Adverse Reactions: Allergies Allergy/AdvReac Type Severity Reaction Status Date / Time egg AdvReac Vomiting Verified 03/03/19 20:38 Home Medications: Ambulatory Orders Apixaban [Eliquis -] 2.5 mg PO BID tablet 06/13/18 Isosorbide Mononitrate [Imdur -] 30 mg PO DAILY tab.sr.24h 06/13/18 Sevelamer Carbonate [Renvela -] 800 mg PO TIDCM tab 06/13/18 Alendronate Sodium [Binosto] 70 mg PO DAILY 11/05/18 Atorvastatin Ca [Lipitor] 20 mg PO HS 11/05/18 Esomeprazole Magnesium 20 mg PO DAILY 11/05/18 Fluticasone/Umeclidin/Vilanter [Trelegy Ellipta 100-62.5-25] 1 each IH DAILY 07/19 Insulin Glargine,Hum.rec.anlog [Alejandro Spencer] 10 unit SQ DAILY 11/05/18 Metoprolol Succinate [Toprol XL -] 100 mg PO DAILY 11/05/18 Ondansetron [Zofran *Odt*] 4 mg SL DAILY 11/05/18 Ranolazine [Ranolazine ER] 500 mg PO BID 11/05/18 Anemia: Yes Asthma: Yes Cancer: No Cardiac Disorders: No CVA: Yes COPD: Yes (home o2) CHF: Yes Dementia: No Diabetes: Yes GI Disorders: Yes (GERD) Disorders: Yes HTN: Yes Hypercholesterolemia: Yes Kidney Stones: Yes Liver Disease: No Seizures: No Thyroid Disease: No - Surgical History Abdominal Surgery: No Appendectomy: No Cardiac Surgery: No Cholecystectomy: No Lung Surgery: No Neurologic Surgery: Yes (CRANIOTOMY 10YEARS AGO) Orthopedic Surgery: No - Immunization History Immunization Up to Date: Yes - Psycho Social/Smoking Cessation Hx Smoking History: Never smoked Have you smoked in the past 12 months: No Number of Cigarettes Smoked Daily: 0 If you are a former smoker, when did you quit?: 50 YEARS Cigars Per Day: 0 Information on smoking cessation initiated: No Hx Alcohol Use: No Drug/Substance Use Hx: No Substance Use Type: None Hx Substance Use Treatment: No Review of Systems - Review of Systems Able to Perform ROS?: Yes Comments:: GENERAL/CONSTITUTIONAL: No fever or chills. No weakness HEAD, EYES, EARS, NOSE AND THROAT: No change in vision. No change in hearing. No sore throat CARDIOVASCULAR: No chest pain RESPIRATORY: Denies cough, hemoptysis GASTROINTESTINAL: No nausea, vomiting, diarrhea or constipation GENITOURINARY: No dysuria, frequency, or change in urination MUSCULOSKELETAL: No joint or muscle swelling or pain. No neck or back pain SKIN: No rash NEUROLOGIC: No headache, vertigo, loss of consciousness, or change in strength/ sensation ENDOCRINE: No increased thirst. No abnormal weight change ALLERGIC/IMMUNOLOGIC: No hives or skin allergy 03/12/19 11:58 Is the patient limited Czech proficient: No *Physical Exam - Vital Signs Last Vital Signs Temp Pulse Resp BP Pulse Ox 99.2 F 109 H 16 184/78 H 100 03/12/19 10:25 03/12/19 10:25 03/12/19 10:25 03/12/19 10:25 03/12/19 11:00 - Physical Exam GENERAL: Awake, alert, and oriented to person/place/time HEAD: No signs of trauma, normocephalic, atraumatic EYES: PERRLA, EOMI, sclera anicteric, conjunctiva clear ENT: Hearing grossly normal, nares patent, oropharynx clear without exudates. Moist mucosa LUNGS: Tachypnic, pursed lips, prolonged expiratory phase, b/l mild-moderate wheezing HEART: Tachycardic rate and regular rhythm, normal S1 and S2, no murmurs appreciated, peripheral pulses normal and equal bilaterally ABDOMEN: Soft, nontender, normoactive bowel sounds. No guarding, no rebound EXTREMITIES: Normal inspection, Normal range of motion, no edema. No clubbing or cyanosis NEUROLOGICAL: Cranial nerves II through XII grossly intact. Normal speech, no focal sensorimotor deficits SKIN: Warm, Dry 03/12/19 11:58 ED Treatment Course - LABORATORY CBC & Chemistry Diagram: 03/12/19 10:51 03/12/19 10:51 - ADDITIONAL ORDERS Additional order review: Laboratory Results 03/12/19 03/12/19 10:51 10:51 Sodium 135 L Potassium 4.1 Chloride 95 L Carbon Dioxide 36 H Anion Gap 3 L BUN 17.7 Creatinine 3.5 H Est GFR (CKD-EPI)AfAm 12.81 Est GFR (CKD-EPI)NonAf 11.05 Random Glucose 245 H Calcium 9.3 Magnesium 2.2 Total Bilirubin 0.8 AST 31 ALT 25 Alkaline Phosphatase 80 Troponin I 0.02 Total Protein 7.0 Albumin 3.8 03/12/19 10:51 RBC 3.84 MCV 82.1 MCHC 32.7 RDW 16.5 H MPV 9.3 Neutrophils % 76.9 D Lymphocytes % 13.9 D Monocytes % 8.9 Eosinophils % 0.2 D Basophils % 0.1 - RADIOLOGY Radiology Studies Ordered: Category Date Time Status CHEST X-RAY PORTABLE* [RAD] Stat Radiology 03/12/19 10:40 Ordered - Medications Given in the ED: ED Medications Discontinued Medications Generic Name Dose Route Start Last Admin Trade Name Freq PRN Reason Stop Dose Admin Albuterol/Ipratropium 1 amp 03/12/19 11:15 03/12/19 11:49 Duoneb - NEB 03/12/19 11:46 1 amp Q15M FORREST Administration Methylprednisolone Sodium Succinate 125 mg 03/12/19 11:10 03/12/19 11:28 Solu-Medrol - IVPB 03/12/19 11:11 125 mg ONCE ONE Administration Medical Decision Making - Medical Decision Making The pt is an 88F w/ a history of COPD (2L NC), ESRD (iHD T,Th,Sa) who presents for evaluation of 2 days of shortness of breath. ED Course Labs sent ECG CXR BiPAP Fever noted, sepsis order set initiated Pt given duo-nebs x3 and Solumedrol 125mg IV once Vanc/Zosyn given 03/12/19 12:09 ECG w/ sinus tachycardia; HR 104; QTc 457; poor baseline, non-specific TW abn, abn ECG No leukocytosis Anemia noted, no indication to transfuse at this time K 4.1 Cr 4.1 s/p iHD yesterday LA wnl LFTs wnl Trop I neg Will admit for COPD exacerbation Pt signed out to Kofi Admitting 03/12/19 12:44 Discharge - Discharge Information Problems reviewed: Yes Clinical Impression/Diagnosis: ESRD (end stage renal disease) on dialysis COPD (chronic obstructive pulmonary disease) Qualifiers: COPD type: unspecified COPD Qualified Code(s): J44.9 - Chronic obstructive pulmonary disease, unspecified Condition: Fair - Admission Yes - Follow up/Referral - Patient Discharge Instructions - Post Discharge Activity
[2019-03-12 12:35] LABS: VENOUS PC02 67.5 mmHg (38-52); VENOUS PH 7.33 (7.31-7.41)
[2019-03-12 12:44] LABS: INR 1.08 (0.83-1.09); PROTHROMBIN TIME (PATIENT) 12.7 SEC (9.7-13.0)
[2019-03-12] MEDS ORDERED: ACETAMINOPHEN 1000 MG/100 ML VIAL (NON FORMULARY) IVPB ONE (13:09)
[2019-03-12] MEDS ORDERED: ACETAMINOPHEN INJECTION 100 ML IVPB ONE (13:33)
--- NOTE | 2019-03-12 14:40 | HP ---
CHIEF COMPLAINT:Shortness of breath and wheezing for last 1 day PCP: HISTORY OF PRESENT ILLNESS: The pt is an 88F w/ a history of COPD (2L NC), ESRD (iHD T,Th,Sa) who presents for evaluation of 2 days of shortness of breath. The pt reports feeling short of breath since after dialysis yesterday. She used her nebulizer at home with little relief. She denies fevers/chills, chest pain, abdominal pain, N/V/C/D, dysuria, hematuria ER course was notable for: (1)sob (2)[place] cxr (3)on hd Recent Travel: PAST MEDICAL HISTORY:The pt is an 88F w/ a history of COPD (2L NC), ESRD PAST SURGICAL HISTORY: Social History: Smoking:ex smoker Alcohol:none Drugs: none Allergies egg Adverse Reaction (Verified 03/03/19 20:38) Vomiting HOME MEDICATIONS: Home Medications Medication Instructions Recorded Apixaban [Eliquis -] 2.5 mg PO BID tablet 06/13/18 Isosorbide Mononitrate [Imdur -] 30 mg PO DAILY tab.sr.24h 06/13/18 Sevelamer Carbonate [Renvela -] 800 mg PO TIDCM tab 06/13/18 Alendronate Sodium [Binosto] 70 mg PO DAILY 11/05/18 Atorvastatin Ca [Lipitor] 20 mg PO HS 11/05/18 Esomeprazole Magnesium 20 mg PO DAILY 11/05/18 Fluticasone/Umeclidin/Vilanter 1 each IH DAILY 11/05/18 [Trelegy Ellipta 100-62.5-25] Insulin Glargine,Hum.rec.anlog 10 unit SQ DAILY 11/05/18 [Toucelia Solostar] Metoprolol Succinate [Toprol XL -] 100 mg PO DAILY 11/05/18 Ondansetron [Zofran *Odt*] 4 mg SL DAILY 11/05/18 Ranolazine [Ranolazine ER] 500 mg PO BID 11/05/18 REVIEW OF SYSTEMS CONSTITUTIONAL: Absent: fever, chills, diaphoresis, generalized weakness, malaise, loss of appetite, weight change HEENT: Absent: rhinorrhea, nasal congestion, throat pain, throat swelling, difficulty swallowing, mouth swelling, ear pain, eye pain, visual changes CARDIOVASCULAR: Absent: chest pain, syncope, palpitations, irregular heart rate, lightheadedness , peripheral edema RESPIRATORY: Present shortness of breath wheezing GASTROINTESTINAL: Absent: abdominal pain, abdominal distension, nausea, vomiting, diarrhea, constipation, melena, hematochezia GENITOURINARY: Absent: dysuria, frequency, urgency, hesitancy, hematuria, flank pain, genital pain MUSCULOSKELETAL: Absent: myalgia, arthralgia, joint swelling, back pain, neck pain SKIN: Absent: rash, itching, pallor HEMATOLOGIC/IMMUNOLOGIC: Absent: easy bleeding, easy bruising, lymphadenopathy, frequent infections ENDOCRINE: Absent: unexplained weight gain, unexplained weight loss, heat intolerance, cold intolerance NEUROLOGIC: Absent: headache, focal weakness or paresthesias, dizziness, unsteady gait, seizure, mental status changes, bladder or bowel incontinence PSYCHIATRIC: Absent: anxiety, depression, suicidal or homicidal ideation, hallucinations. PHYSICAL EXAMINATION Vital Signs - 24 hr 03/12/19 03/12/19 10:25 11:00 Temperature 99.2 F Pulse Rate 109 H Respiratory 16 Rate Blood Pressure 184/78 H O2 Sat by Pulse 94 L 100 Oximetry (%) Patient is comfortable HEENT normal Neck supple no JVD Lungs Bilateral wheezing Abdomen nontender no organomegaly bowel sounds normal Extremities no edema no cyanosis normal pulses Neurologically he is alert awake oriented, nonfocal Skin no rash noted . Laboratory Results - last 24 hr 03/12/19 03/12/19 03/12/19 10:51 10:51 10:51 WBC 7.3 RBC 3.84 Hgb 10.3 L Hct 31.6 L MCV 82.1 MCH 26.9 MCHC 32.7 RDW 16.5 H Plt Count 178 MPV 9.3 Absolute Neuts (auto) 5.6 Neutrophils % 76.9 D Lymphocytes % 13.9 D Monocytes % 8.9 Eosinophils % 0.2 D Basophils % 0.1 Nucleated RBC % 0 PT with INR INR PTT (Actin FS) VBG pH POC VBG pCO2 POC VBG pO2 VBG HCO3 VBG O2 Sat (Claudia) VBG Base Excess Sodium 135 L Potassium 4.1 Chloride 95 L Carbon Dioxide 36 H Anion Gap 3 L BUN 17.7 Creatinine 3.5 H Est GFR (CKD-EPI)AfAm 12.81 Est GFR (CKD-EPI)NonAf 11.05 Random Glucose 245 H Lactic Acid Calcium 9.3 Magnesium 2.2 Total Bilirubin 0.8 AST 31 ALT 25 Alkaline Phosphatase 80 Troponin I 0.02 Total Protein 7.0 Albumin 3.8 03/12/19 03/12/19 03/12/19 11:47 11:49 11:49 WBC RBC Hgb Hct MCV MCH MCHC RDW Plt Count MPV Absolute Neuts (auto) Neutrophils % Lymphocytes % Monocytes % Eosinophils % Basophils % Nucleated RBC % PT with INR 12.70 INR 1.08 PTT (Actin FS) 33.0 VBG pH 7.33 POC VBG pCO2 67.5 H POC VBG pO2 49.0 H VBG HCO3 34.9 H VBG O2 Sat (Claudia) 56.1 L VBG Base Excess 7.8 H Sodium Potassium Chloride Carbon Dioxide Anion Gap BUN Creatinine Est GFR (CKD-EPI)AfAm Est GFR (CKD-EPI)NonAf Random Glucose Lactic Acid 1.7 Calcium Magnesium Total Bilirubin AST ALT Alkaline Phosphatase Troponin I Total Protein Albumin ASSESSMENT/PLAN: The pt is an 88F w/ a history of COPD (2L NC), ESRD (iHD T,Th,Sa) who presents for evaluation of 2 days of shortness of breath. Patient to start on IV Solu-Medrol. Nebulizer treatment No need for antibiotic because her white cell count is normal and chest x-ray has no pneumonia. She has also received 1 dose of Zosyn and vancomycin in the ER. Atrial fibrillation continue Eliquis Hypertension stable continue same medication Diabetes she is on Lantus will start the same dose also put her BGM ASC and at bedtime and start her on insulin coverage Her PCO2 level is high so we will start her on BiPAP setting of inspiratory 10 cc of water and expiration 5 DVT prophylaxis she does not need because she is on Eliquis Visit type - Emergency Visit Emergency Visit: Yes ED Registration Date: 03/12/19 Care time: The patient presented to the Emergency Department on the above date and was hospitalized for further evaluation of their emergent condition. - New Patient This patient is new to me today: Yes Date on this admission: 03/12/19 - Critical Care Critical Care patient: No
[2019-03-12] MEDS ORDERED: SODIUM CHLORIDE 250 ML IV PRN ×2 (15:59→16:00)
[2019-03-12] MEDS ORDERED: EPOETIN ALFA 2,000 UNIT/1 ML VIAL IVPUSH ONE (15:59)
--- NOTE | 2019-03-12 15:59 | CONSULT ---
Consult Consult Specialty:: Nephrology Reason for Consultation:: ESRD - History of Present Illness Chief Complaint: cough and shortness of breath History of Present Illness: Pt is an 88 year old female with pmhx of copd, htn, chf and esrd who presented with shortness of breath and cough. She was last dialyzed yesterday. She has felt shortness of breath since. She was found to have fever in the ER. She was recently discharged from the hospital. She denies chills. - History Source History Provided By: Patient, Medical Record - Past Medical History TRAFFIC DIRECTOR: Yes: Dementia Cardio/Vascular: Yes: HTN Pulmonary: Yes: COPD, O2 Dependent, Pneumonia. No: Asthma, Pulmonary Embolus, Sleep Apnea Gastrointestinal: Yes: GERD Renal/: Yes: Renal Inusuff, Hemodialysis, Renal Calculi (maybe- she had flank pain) Endocrine: Yes: Diabetes Mellitus - Past Surgical History Past Surgical History: Yes: AV Fistula/Graft - Alcohol/Substance Use Hx Alcohol Use: No - Smoking History Smoking history: Never smoked Have you smoked in the past 12 months: No Aproximately how many cigarettes per day: 0 If you are a former smoker, when did you quit?: 50 YEARS - Social History Usual Living Arrangement: With Child Home Medications - Allergies Allergies/Adverse Reactions: Allergies Allergy/AdvReac Type Severity Reaction Status Date / Time egg AdvReac Vomiting Verified 03/03/19 20:38 - Home Medications Home Medications: Ambulatory Orders Apixaban [Eliquis -] 2.5 mg PO BID tablet 06/13/18 Isosorbide Mononitrate [Imdur -] 30 mg PO DAILY tab.sr.24h 06/13/18 Sevelamer Carbonate [Renvela -] 800 mg PO TIDCM tab 06/13/18 Alendronate Sodium [Binosto] 70 mg PO DAILY 11/05/18 Atorvastatin Ca [Lipitor] 20 mg PO HS 11/05/18 Esomeprazole Magnesium 20 mg PO DAILY 11/05/18 Fluticasone/Umeclidin/Vilanter [Trelegy Ellipta 100-62.5-25] 1 each IH DAILY 07/19 Insulin Glargine,Hum.rec.anlog [[place] Solellen] 10 unit SQ DAILY 11/05/18 Metoprolol Succinate [Toprol XL -] 100 mg PO DAILY 11/05/18 Ondansetron [Zofran *Odt*] 4 mg SL DAILY 11/05/18 Ranolazine [Ranolazine ER] 500 mg PO BID 11/05/18 Family Medical History Family History: Denies Review of Systems - Review of Systems Constitutional: reports: Malaise Eyes: reports: No Symptoms HENT: reports: No Symptoms Neck: reports: No Symptoms Cardiovascular: reports: Shortness of Breath. denies: Edema Respiratory: reports: Cough, SOB, SOB on Exertion Gastrointestinal: reports: No Symptoms Genitourinary: reports: No Symptoms Musculoskeletal: reports: No Symptoms Integumentary: reports: No Symptoms Neurological: reports: No Symptoms Endocrine: reports: No Symptoms Hematology/Lymphatic: reports: No Symptoms Psychiatric: reports: No Symptoms Physical Exam Vital Signs: Vital Signs Temperature 99.2 F 03/12/19 10:25 Pulse Rate 68 03/12/19 14:39 Respiratory Rate 18 03/12/19 14:39 Blood Pressure 136/66 03/12/19 14:39 O2 Sat by Pulse Oximetry (%) 100 03/12/19 14:39 Constitutional: Yes: Calm Eyes: Yes: Conjunctiva Clear HENT: Yes: Atraumatic Neck: Yes: Supple Cardiovascular: Yes: S1, S2 Respiratory: Yes: CTA Bilaterally Gastrointestinal: Yes: Normal Bowel Sounds, Soft Renal/: Yes: WNL Musculoskeletal: Yes: WNL Edema: No Neurological: Yes: Confusion Labs: CBC, BMP 03/12/19 10:51 03/12/19 10:51 Imaging - Results Chest X-ray: Report Reviewed Problem List - Problems (1) ESRD (end stage renal disease) Code(s): N18.6 - END STAGE RENAL DISEASE Assessment/Plan Current Medications Generic Name Dose Route Start Last Admin Trade Name Freq PRN Reason Stop Dose Admin Acetaminophen 650 mg 03/12/19 14:44 Tylenol - PO Q6H PRN PAIN Albuterol Sulfate 1 amp 03/12/19 14:44 Ventolin 0.083% Nebulizer Soln - NEB Q6H PRN SHORT OF BREATH/WHEEZING Apixaban 2.5 mg 03/12/19 22:00 Eliquis - PO BID FORREST Atorvastatin Calcium 20 mg 03/12/19 22:00 Lipitor - PO HS FORREST Insulin Aspart 1 vial 01/10/20 16:30 Novolog Vial Sliding Scale - SQ ACHS [facility] Protocol Insulin Detemir 10 units 03/13/19 07:00 Levemir Vial SQ ACBK [facility] Isosorbide Mononitrate 30 mg 03/13/19 10:00 Imdur - PO DAILY [facility] Methylprednisolone Sodium Succinate 40 mg 03/12/19 18:00 Solu-Medrol - IVPUSH Q8H-IV [facility] Metoprolol Succinate 100 mg 03/13/19 10:00 Toprol Xl - PO DAILY [facility] Non-Formulary Medication 1 each 03/13/19 10:00 Fluticasone/Umeclidin/Vilanter [Trelegy Ellipta 100-62.5-25] IH DAILY [facility] Pantoprazole Sodium 20 mg 03/13/19 10:00 Protonix - PO DAILY [facility] Ranolazine 500 mg 03/12/19 22:00 Ranexa - PO BID [facility] Sevelamer Carbonate 800 mg 03/12/19 17:30 Renvela - PO TIDCM [facility] Impression 1. ESRD 2. HTN 3. HLD 4. COPD 5. DM 6. pos heb b core 7. altered mental status 8. anemia 9. a-fib 10. fever Plan - HD tomorrow - send cultures - discussed with ER - monitor pulse ox - repeat bp improved - resume home meds - pt on TTS schedule
[2019-03-12] MEDS: INSULIN SLIDING SCALE (NOVOLOG) 1 VIAL SQ SCH ×2 (17:40→23:26)
[2019-03-12] MEDS ORDERED: methylPREDNISolone NA SUCC 40 MG/1 ML VIAL ONE (18:12)
[2019-03-12] MEDS: methylPREDNISolone NA SUCC 40 MG/1 ML VIAL IVPUSH SCH (18:23)
[2019-03-12] MEDS: SEVELAMER CARBONATE 800 MG TAB (FP) PO SCH (18:53)
[2019-03-12] MEDS: ALBUTEROL SO4 0.083% IH SOL 2.5 MG/3 ML VIAL.NEB. NEB PRN (21:45)
[2019-03-12] MEDS ORDERED: PT OWN MED DRAWER 7, Y5N ONE (23:03)
[2019-03-12] MEDS: ATORVASTATIN CA 20 MG TABLET (FP) PO SCH (23:05)
[2019-03-12] MEDS: APIXABAN 2.5 MG TABLET PO SCH (23:05)
[2019-03-12] MEDS: RANOLAZINE E.R. 500 MG TABLET (FP) PO SCH (23:05)
[2019-03-13] MEDS: methylPREDNISolone NA SUCC 40 MG/1 ML VIAL IVPUSH SCH ×3 (02:45→21:30)
[2019-03-13] MEDS ORDERED: ONDANSETRON 4 MG/2 ML VIAL IVPUSH ONE (03:26)
--- NOTE | 2019-03-13 03:31 | PN ---
Progress Note (short form) - Note Progress Note: Paged by nurse, patient complaining of chest pain. Patient described pain as pressure over chest and appeared uncomfortable. Trop, CXR ordered. Neb treatment given. Trop negative, CXR on my read without acute pathology. Patient more comfortable after neb treatment. Later on during the night received another page from nurse stating that patient was uncomfortable, yelling. Patient on BiPAP machine with SpO2 at 95%+, however complaining that "she cannot breath" Patient not using accessory muscles, had a strong clear voice. 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 Patient appeared more anxious than in respiratory distress. Patient calmed down. Second neb treatment and Melatonin 5mg given with good effect.
[2019-03-13] MEDS ORDERED: MELATONIN 5 MG TABLETS PO ONE (03:33)
[2019-03-13] MEDS: ALBUTEROL SO4 0.083% IH SOL 2.5 MG/3 ML VIAL.NEB. NEB PRN ×2 (04:21→20:30)
[2019-03-13] MEDS: INSULIN SLIDING SCALE (NOVOLOG) 1 VIAL SQ SCH ×5 (06:46→21:41)
[2019-03-13] MEDS: INSULIN (LEVEMIR) 100 UNITS/ML UNITS SQ SCH (06:47)
[2019-03-13 08:14] VITALS: BMI 37.0
--- NOTE | 2019-03-13 09:13 | EKG ---
Test Reason : Blood Pressure : / mmHG Vent. Rate : 104 BPM Atrial Rate : 104 BPM P-R Int : 184 ms QRS Dur : 080 ms QT Int : 348 ms P-R-T Axes : 084 076 083 degrees QTc Int : 457 ms POOR DATA QUALITY, INTERPRETATION MAY BE ADVERSELY AFFECTED SINUS TACHYCARDIA VOLTAGE CRITERIA FOR LEFT VENTRICULAR HYPERTROPHY NONSPECIFIC T WAVE ABNORMALITY ABNORMAL ECG WHEN COMPARED WITH ECG OF 04-MAR-2019 04:53, CRITERIA FOR SEPTAL INFARCT ARE NO LONGER PRESENT Confirmed by GAIL GERARD MD ([id number]) on 03/13/2019 9:12:50 AM Referred By: Confirmed By:GAIL GERARD MD
[2019-03-13] MEDS ORDERED: PATIENT'S OWN MEDICATION (NON-FORMULARY) (Insulin Glargine,Hum.Rec.Anlog [Toujeo Solostar] SQ SCH (10:00)
[2019-03-13] MEDS ORDERED: FLU VACCINE QUAD 60 MCG/0.5 ML (MDV 19-20) IM ONE (10:00)
[2019-03-13] MEDS ORDERED: PANTOPRAZOLE 20 MG TABLET PO SCH (10:00)
[2019-03-13] MEDS: RANOLAZINE E.R. 500 MG TABLET (FP) PO SCH ×2 (10:52→21:30)
[2019-03-13] MEDS: SEVELAMER CARBONATE 800 MG TAB (FP) PO SCH ×3 (10:53→17:45)
[2019-03-13] MEDS: ISOSORBIDE MONONITRATE 30 MG TAB.SR.24H (FP) PO SCH ×3 (11:13→19:02)
[2019-03-13] MEDS: APIXABAN 2.5 MG TABLET PO SCH ×2 (11:13→21:30)
--- NOTE | 2019-03-13 11:25 | EKG ---
Test Reason : Blood Pressure : / mmHG Vent. Rate : 090 BPM Atrial Rate : 090 BPM P-R Int : 204 ms QRS Dur : 084 ms QT Int : 366 ms P-R-T Axes : 082 087 057 degrees QTc Int : 447 ms NORMAL SINUS RHYTHM MINIMAL VOLTAGE CRITERIA FOR LVH, MAY BE NORMAL VARIANT SEPTAL INFARCT , AGE UNDETERMINED ABNORMAL ECG WHEN COMPARED WITH ECG OF 12-MAR-2019 10:43, NONSPECIFIC T WAVE ABNORMALITY HAS REPLACED INVERTED T WAVES IN LATERAL LEADS Confirmed by MOUSTAPHA MIDDLETON, GAIL ([id number]) on 03/13/2019 11:25:18 AM Referred By: FARTUN Confirmed By:GAIL GERARD MD
[2019-03-13 11:27] LABS: EPI CELLS 7.9 /HPF (0-5/HPF); HYALINE CASTS 9 /lpf (0-8); PH,URINE 5.5 (5.0-8.0); URINE APPEARANCE CLOUDY; URINE BACTERIA 0.5 /hpf (NEGATIVE); URINE BILIRUBIN NEGATIVE (NEGATIVE); URINE COLOR YELLOW; URINE GLUCOSE (UA) NEGATIVE (NEGATIVE); URINE KETONE NEGATIVE (NEGATIVE); URINE LEUK ESTERASE NEGATIVE (NEGATIVE); URINE NITRITE NEGATIVE (NEGATIVE); URINE PROTEIN 4+ (NEGATIVE); URINE RBC 2 /hpf (0-4); URINE UROBILINOGEN 0.2 mg/dL (0.2-1.0); URINE WBC 14 /hpf (0-5)
[2019-03-13] MEDS: ACETAMINOPHEN 325 MG TABLET (FP) PO PRN ×2 (11:35→16:21)
[2019-03-13] MEDS ORDERED: ONDANSETRON 4 MG/2 ML VIAL IVPUSH PRN (11:50)
[2019-03-13] MEDS ORDERED: PANTOPRAZOLE 20 MG TABLET PO ONE ×2 (11:50→16:15)
[2019-03-13] MEDS ORDERED: BISACODYL 10 MG SUPP.RECT PR ONE (11:53)
[2019-03-13] MEDS ORDERED: EPOETIN ALFA 3,000 UNIT/1 ML ML IVPUSH ONE (12:00)
[2019-03-13 12:45] LABS: HEMOGLOBIN 9.4 GM/dL (10.7-15.3); MCH 26.9 pg (25.7-33.7); MCHC 32.4 g/dl (32.0-36.0); MEAN CELL VOLUME 83.1 fl (80-96); MEAN PLT VOLUME 9.8 fl (7.5-11.1); PLATELET COUNT 189 K/MM3 (134-434); RBC 3.48 M/mm3 (3.60-5.2); RDW 16.6 % (11.6-15.6); WHITE BLOOD COUNT 9.9 K/mm3 (4.0-10.0)
[2019-03-13 13:24] LABS: ALBUMIN 3.5 g/dl (3.4-5.0); BILIRUBIN,TOTAL 0.5 mg/dL (0.2-1); BLOOD UREA NITROGEN 44.2 mg/dL (7-18); CALCIUM 9.7 mg/dL (8.5-10.1); CREATININE 4.8 mg/dL (0.55-1.3); POTASSIUM 4.3 mmol/L (3.5-5.1); TOT PROT 6.6 g/dl (6.4-8.2)
--- NOTE | 2019-03-13 15:33 | PN ---
Progress Note, Physician Chief Complaint: abdominal pain History of Present Illness: patient seen and examined at bedside. States she has abdominal discomfort, last BM 4 days ago. otherwise feels well. - Current Medication List Current Medications: Active Medications Acetaminophen (Tylenol -) 650 mg PO Q6H PRN PRN Reason: PAIN Last Admin: 03/13/19 11:35 Dose: 650 mg Albuterol Sulfate (Ventolin 0.083% Nebulizer Soln -) 1 amp NEB Q6H PRN PRN Reason: SHORT OF BREATH/WHEEZING Last Admin: 03/13/19 04:21 Dose: 1 amp Apixaban (Eliquis -) 2.5 mg PO BID [facility] Last Admin: 03/13/19 11:13 Dose: Not Given Atorvastatin Calcium (Lipitor -) 20 mg PO HS [facility] Last Admin: 03/12/19 23:05 Dose: 20 mg Docusate Sodium (Colace -) 100 mg PO TID [facility] Sodium Chloride (Normal Saline -) 250 mls @ 3,000 mls/hr IV PRN PRN PRN Reason: Hypotension during Dialysis Stop: 03/13/19 15:59 Sodium Chloride (Normal Saline -) 250 mls @ 3,000 mls/hr IV PRN PRN PRN Reason: Hypotension during Dialysis Stop: 03/13/19 16:00 Insulin Aspart (Novolog Vial Sliding Scale -) 1 vial SQ [facility]; Protocol Last Admin: 03/13/19 12:00 Dose: Not Given Insulin Detemir (Levemir Vial) 10 units SQ ACBK [facility] Last Admin: 03/13/19 06:47 Dose: 10 units Isosorbide Mononitrate (Imdur -) 30 mg PO DAILY [facility] Last Admin: 03/13/19 11:13 Dose: Not Given Methylprednisolone Sodium Succinate (Solu-Medrol -) 40 mg IVPUSH Q8H-IV [facility] Last Admin: 03/13/19 10:52 Dose: 40 mg Metoprolol Succinate (Toprol Xl -) 100 mg PO DAILY [facility] Last Admin: 03/13/19 11:13 Dose: Not Given Non-Formulary Medication (Fluticasone/Umeclidin/Vilanter [Trelegy Ellipta 100- 62.5-25]) 1 each IH DAILY [facility] Ondansetron HCl (Zofran Injection) 4 mg IVPUSH Q8H PRN PRN Reason: NAUSEA Pantoprazole Sodium (Protonix -) 20 mg PO DAILY [facility] Last Admin: 03/13/19 10:52 Dose: 20 mg Pantoprazole Sodium (Protonix -) 40 mg PO DAILY [facility] Ranolazine (Ranexa -) 500 mg PO BID [facility] Last Admin: 03/13/19 10:52 Dose: 500 mg Sevelamer Carbonate (Renvela -) 800 mg PO TIDCM [facility] Last Admin: 03/13/19 12:01 Dose: Not Given - Objective Vital Signs: Vital Signs Temperature 98.2 F 03/13/19 11:50 Pulse Rate 104 H 03/13/19 14:00 Respiratory Rate 18 03/13/19 14:00 Blood Pressure 150/90 03/13/19 14:00 O2 Sat by Pulse Oximetry (%) 99 03/13/19 10:00 Constitutional: Yes: Well Nourished, No Distress, Calm Cardiovascular: Yes: Regular Rate and Rhythm Respiratory: Yes: Wheezes. No: Accessory Muscle Use Gastrointestinal: Yes: Normal Bowel Sounds, Distention (slight), Hypoactive Bowel Sounds. No: Tenderness, Tenderness, Epigastrium, Tenderness, Rebound, Vomiting Extremities: Yes: WNL Edema: No Labs: CBC, BMP 03/13/19 12:15 03/13/19 11:35 INR, PTT INR 1.08 (0.83-1.09) 03/12/19 11:49 - ....Imaging X-ray: Report Reviewed Problem List - Problems (1) COPD (chronic obstructive pulmonary disease) Code(s): J44.9 - CHRONIC OBSTRUCTIVE PULMONARY DISEASE, UNSPECIFIED Qualifiers: COPD type: unspecified COPD Qualified Code(s): J44.9 - Chronic obstructive pulmonary disease, unspecified (2) ESRD (end stage renal disease) on dialysis Code(s): N18.6 - END STAGE RENAL DISEASE; Z99.2 - DEPENDENCE ON RENAL DIALYSIS (3) Abdominal pain Code(s): R10.9 - UNSPECIFIED ABDOMINAL PAIN (4) COPD exacerbation Code(s): J44.1 - CHRONIC OBSTRUCTIVE PULMONARY DISEASE W (ACUTE) EXACERBATION (5) Diabetes Code(s): E11.9 - TYPE 2 DIABETES MELLITUS WITHOUT COMPLICATIONS Qualifiers: Diabetes mellitus type: type 2 Diabetes mellitus terminal operator insulin use: without fdc use Diabetes mellitus complication status: with kidney complications Diabetes mellitus complication detail: with chronic kidney disease Chronic kidney disease stage: on chronic dialysis Qualified Code(s) : E11.22 - Type 2 diabetes mellitus with diabetic chronic kidney disease; N18.6 - End stage renal disease; Z99.2 - Dependence on renal dialysis (6) Hypercholesterolemia Code(s): E78.00 - PURE HYPERCHOLESTEROLEMIA, UNSPECIFIED (7) Hypertension Code(s): I10 - ESSENTIAL (PRIMARY) HYPERTENSION Qualifiers: Hypertension type: essential hypertension Qualified Code(s): I10 - Essential (primary) hypertension Assessment/Plan ASSESSMENT/PLAN: The pt is an 88F w/ a history of COPD (2L NC), ESRD (HD T,,) who presents for evaluation of 2 days of shortness of breath. 1) COPD exacerbation -IV steroids, taper to 40 mg Q12H -inhaled nebs -BIPAP QHS and PRN 2) ESRD on HD -per renal, HD today 3) Abdominal pain likely due to constipation -xray confirms -start bowel regimen 4) Afib -rates controlled on bb -cw eliquis 5) HTN -cw current meds 6) DM2 -cw current regimen
[2019-03-13] MEDS: DOCUSATE SODIUM 100 MG CAPSULE (FP) PO SCH ×2 (16:22→21:30)
[2019-03-13] MEDS ORDERED: BISACODYL 10 MG SUPP.RECT RC ONE (16:30)
--- NOTE | 2019-03-13 17:23 | PN ---
Progress Note, Physician History of Present Illness: Pt seen and examined at bedside. She felt better with HD. She denies chest pain or shortness of breath. - Current Medication List Current Medications: Active Medications Acetaminophen (Tylenol -) 650 mg PO Q6H PRN PRN Reason: PAIN Last Admin: 03/13/19 16:21 Dose: 650 mg Albuterol Sulfate (Ventolin 0.083% Nebulizer Soln -) 1 amp NEB Q6H PRN PRN Reason: SHORT OF BREATH/WHEEZING Last Admin: 03/13/19 04:21 Dose: 1 amp Apixaban (Eliquis -) 2.5 mg PO BID [facility] Last Admin: 03/13/19 11:13 Dose: Not Given Atorvastatin Calcium (Lipitor -) 20 mg PO HS [facility] Last Admin: 03/12/19 23:05 Dose: 20 mg Docusate Sodium (Colace -) 100 mg PO TID [facility] Last Admin: 03/13/19 16:22 Dose: 100 mg Sodium Chloride (Normal Saline -) 250 mls @ 3,000 mls/hr IV PRN PRN PRN Reason: Hypotension during Dialysis Stop: 03/13/19 16:00 Insulin Aspart (Novolog Vial Sliding Scale -) 1 vial SQ ACHS [facility]; Protocol Last Admin: 03/13/19 16:19 Dose: 2 units Insulin Detemir (Levemir Vial) 10 units SQ ACBK [facility] Last Admin: 03/13/19 06:47 Dose: 10 units Isosorbide Mononitrate (Imdur -) 30 mg PO DAILY [facility] Last Admin: 03/13/19 11:13 Dose: Not Given Methylprednisolone Sodium Succinate (Solu-Medrol -) 40 mg IVPUSH BID [facility] Metoprolol Succinate (Toprol Xl -) 100 mg PO DAILY [facility] Last Admin: 03/13/19 11:13 Dose: Not Given Non-Formulary Medication (Fluticasone/Umeclidin/Vilanter [Trelegy Ellipta 100- 62.5-25]) 1 each IH DAILY [facility] Ondansetron HCl (Zofran Injection) 4 mg IVPUSH Q8H PRN PRN Reason: NAUSEA Pantoprazole Sodium (Protonix -) 40 mg PO DAILY [facility] Ranolazine (Ranexa -) 500 mg PO BID [facility] Last Admin: 03/13/19 10:52 Dose: 500 mg Sevelamer Carbonate (Renvela -) 800 mg PO TIDCM [facility] Last Admin: 03/13/19 12:01 Dose: Not Given - Objective Vital Signs: Vital Signs Temperature 98.2 F 03/13/19 11:50 Pulse Rate 70 03/13/19 16:00 Respiratory Rate 18 03/13/19 16:00 Blood Pressure 122/66 03/13/19 16:00 O2 Sat by Pulse Oximetry (%) 97 03/13/19 16:14 Constitutional: Yes: Calm Eyes: Yes: Conjunctiva Clear HENT: Yes: Atraumatic Neck: Yes: Supple Cardiovascular: Yes: S1, S2 Respiratory: Yes: On Nasal O2 Gastrointestinal: Yes: Normal Bowel Sounds, Soft Genitourinary: Yes: WNL Musculoskeletal: Yes: WNL Edema: No Neurological: Yes: Oriented Psychiatric: Yes: Oriented Labs: CBC, BMP 03/13/19 12:15 03/13/19 11:35 INR, PTT INR 1.08 (0.83-1.09) 03/12/19 11:49 Problem List - Problems (1) ESRD (end stage renal disease) Code(s): N18.6 - END STAGE RENAL DISEASE Assessment/Plan Current Medications Generic Name Dose Route Start Last Admin Trade Name Freq PRN Reason Stop Dose Admin Acetaminophen 650 mg 03/12/19 14:44 03/13/19 16:21 Tylenol - PO 650 mg Q6H PRN Administration PAIN Albuterol Sulfate 1 amp 03/12/19 14:44 03/13/19 04:21 Ventolin 0.083% Nebulizer Soln - NEB 1 amp Q6H PRN Administration SHORT OF BREATH/WHEEZING Apixaban 2.5 mg 03/12/19 22:00 03/13/19 11:13 Eliquis - PO Not Given BID [facility] Atorvastatin Calcium 20 mg 03/12/19 22:00 03/12/19 23:05 Lipitor - PO 20 mg HS [facility] Administration Docusate Sodium 100 mg 03/13/19 14:00 03/13/19 16:22 Colace - PO 100 mg TID [facility] Administration Sodium Chloride 250 mls @ 3,000 mls/hr 03/12/19 16:00 Normal Saline - IV 03/13/19 16:00 PRN PRN Hypotension during Dialysis Insulin Aspart 1 vial 03/12/19 16:30 03/13/19 16:19 Novolog Vial Sliding Scale - SQ 2 units ACHS [facility] Administration Protocol Insulin Detemir 10 units 03/13/19 07:00 03/13/19 06:47 Levemir Vial SQ 10 units ACBK [facility] Administration Isosorbide Mononitrate 30 mg 03/13/19 10:00 03/13/19 11:13 Imdur - PO Not Given DAILY [facility] Methylprednisolone Sodium Succinate 40 mg 03/13/19 22:00 Solu-Medrol - IVPUSH BID [facility] Metoprolol Succinate 100 mg 03/13/19 10:00 03/13/19 11:13 Toprol Xl - PO Not Given DAILY [facility] Non-Formulary Medication 1 each 03/13/19 10:00 Fluticasone/Umeclidin/Vilanter [Trelegy Ellipta 100-62.5-25] IH DAILY [facility] Ondansetron HCl 4 mg 03/13/19 11:50 Zofran Injection IVPUSH Q8H PRN [facility]USEA Pantoprazole Sodium 40 mg 03/14/19 10:00 Protonix - PO DAILY [facility] Ranolazine 500 mg 03/12/19 22:00 03/13/19 10:52 Ranexa - PO 500 mg BID [facility] Administration Sevelamer Carbonate 800 mg 03/12/19 17:30 03/13/19 12:01 Renvela - PO Not Given TIDCM [facility] Impression 1. ESRD 2. HTN 3. HLD 4. COPD 5. DM 6. pos heb b core 7. altered mental status 8. anemia 9. a-fib 10. fever Plan - HD today - will schedule extra session on Friday - bp improved - renal diet - discussed with family - pt on TTS schedule
[2019-03-13] MEDS: ATORVASTATIN CA 20 MG TABLET (FP) PO SCH (21:30)
[2019-03-14] MEDS: DOCUSATE SODIUM 100 MG CAPSULE (FP) PO SCH ×4 (06:43→21:21)
[2019-03-14] MEDS: INSULIN SLIDING SCALE (NOVOLOG) 1 VIAL SQ SCH ×4 (07:05→21:09)
[2019-03-14] MEDS: INSULIN (LEVEMIR) 100 UNITS/ML UNITS SQ SCH (07:05)
[2019-03-14] MEDS ORDERED: INSULIN (LEVEMIR) 100 UNITS/ML UNITS SQ ONE ×2 (07:47→08:24)
[2019-03-14 09:52] LABS: BLOOD UREA NITROGEN 32.7 mg/dL (7-18); CALCIUM 9.7 mg/dL (8.5-10.1); CREATININE 3.9 mg/dL (0.55-1.3); POTASSIUM 4.1 mmol/L (3.5-5.1)
[2019-03-14] MEDS: RANOLAZINE E.R. 500 MG TABLET (FP) PO SCH ×2 (09:58→21:09)
[2019-03-14] MEDS: SEVELAMER CARBONATE 800 MG TAB (FP) PO SCH ×3 (09:58→17:25)
[2019-03-14] MEDS: methylPREDNISolone NA SUCC 40 MG/1 ML VIAL IVPUSH SCH ×2 (09:58→21:09)
[2019-03-14] MEDS: ISOSORBIDE MONONITRATE 30 MG TAB.SR.24H (FP) PO SCH (09:58)
[2019-03-14] MEDS: PANTOPRAZOLE 40 MG TABLET PO SCH (09:58)
[2019-03-14] MEDS: APIXABAN 2.5 MG TABLET PO SCH ×2 (09:58→21:09)
[2019-03-14] MEDS ORDERED: guaiFENesin/D-M SUGAR-FREE/ACLHOL-FREE 118 ML BOTTLE PO PRN (12:17)
--- NOTE | 2019-03-14 15:14 | PN ---
Progress Note, Physician Chief Complaint: sob History of Present Illness: patient seen and examined at bedside. feeling much better, did not have a BM. As per daughter, patient is breathing faster than she usually does - Current Medication List Current Medications: Active Medications Acetaminophen (Tylenol -) 650 mg PO Q6H PRN PRN Reason: PAIN Last Admin: 03/13/19 16:21 Dose: 650 mg Albuterol Sulfate (Ventolin 0.083% Nebulizer Soln -) 1 amp NEB Q6H PRN PRN Reason: SHORT OF BREATH/WHEEZING Last Admin: 03/13/19 20:30 Dose: 1 amp Apixaban (Eliquis -) 2.5 mg PO BID [facility]PL[facility] BY [facility] Last Admin: 03/14/19 09:58 Dose: 2.5 mg Atorvastatin Calcium (Lipitor -) 20 mg PO HS [facility]PL[facility] Last Admin: 03/13/19 21:30 Dose: 20 mg Docusate Sodium (Colace -) 100 mg PO TID [facility] Last Admin: 03/14/19 13:06 Dose: 100 mg Guaifenesin (Diabetic Tussin Dm -) 5 ml PO Q4H PRN PRN Reason: COUGH Sodium Chloride (Normal Saline -) 250 mls @ 3,000 mls/hr IV PRN PRN PRN Reason: Hypotension during Dialysis Stop: 03/13/19 16:00 Insulin Aspart (Novolog Vial Sliding Scale -) 1 vial SQ ACHS [facility]; Protocol Last Admin: 03/14/19 11:40 Dose: 4 units Insulin Detemir (Levemir Vial) 10 units SQ ACBK [facility]PL[facility] Last Admin: 03/14/19 07:05 Dose: 10 units Isosorbide Mononitrate (Imdur -) 30 mg PO DAILY [facility] Last Admin: 03/14/19 09:58 Dose: 30 mg Methylprednisolone Sodium Succinate (Solu-Medrol -) 40 mg IVPUSH BID [facility] Last Admin: 03/14/19 09:58 Dose: 40 mg Metoprolol Succinate (Toprol Xl -) 100 mg PO DAILY [facility] Last Admin: 03/14/19 09:58 Dose: 100 mg Non-Formulary Medication (Fluticasone/Umeclidin/Vilanter [Trelegy Ellipta 100- 62.5-25]) 1 each IH DAILY [facility] Ondansetron HCl (Zofran Injection) 4 mg IVPUSH Q8H PRN PRN Reason: NAUSEA Pantoprazole Sodium (Protonix -) 40 mg PO DAILY [facility] Last Admin: 03/14/19 09:58 Dose: 40 mg Ranolazine (Ranexa -) 500 mg PO BID [facility] Last Admin: 03/14/19 09:58 Dose: 500 mg Sevelamer Carbonate (Renvela -) 800 mg PO TIDCM REPLACED BY [facility] Last Admin: 03/14/19 13:06 Dose: 800 mg - Objective Vital Signs: Vital Signs Temperature 98.3 F 03/14/19 14:00 Pulse Rate 93 H 03/14/19 14:00 Respiratory Rate 03/14/19 14:00 Blood Pressure 147/66 03/14/19 14:00 O2 Sat by Pulse Oximetry (%) 97 03/14/19 09:00 Constitutional: Yes: Well Nourished, No Distress, Calm Cardiovascular: Yes: WNL, Regular Rate and Rhythm Respiratory: Yes: WNL, Regular, CTA Bilaterally Gastrointestinal: Yes: WNL, Normal Bowel Sounds, Soft Musculoskeletal: Yes: WNL Extremities: Yes: WNL Edema: No Labs: CBC, BMP 03/13/19 12:15 03/14/19 08:55 INR, PTT INR 1.08 (0.83-1.09) 03/12/19 11:49 Problem List - Problems (1) COPD (chronic obstructive pulmonary disease) Code(s): J44.9 - CHRONIC OBSTRUCTIVE PULMONARY DISEASE, UNSPECIFIED Qualifiers: COPD type: unspecified COPD Qualified Code(s): J44.9 - Chronic obstructive pulmonary disease, unspecified (2) ESRD (end stage renal disease) on dialysis Code(s): N18.6 - END STAGE RENAL DISEASE; Z99.2 - DEPENDENCE ON RENAL DIALYSIS (3) Abdominal pain Code(s): R10.9 - UNSPECIFIED ABDOMINAL PAIN (4) COPD exacerbation Code(s): J44.1 - CHRONIC OBSTRUCTIVE PULMONARY DISEASE W (ACUTE) EXACERBATION (5) Diabetes Code(s): E11.9 - TYPE 2 DIABETES MELLITUS WITHOUT COMPLICATIONS Qualifiers: Diabetes mellitus type: type 2 Diabetes mellitus [facility] insulin use: without exterminator use Diabetes mellitus complication status: with kidney complications Diabetes mellitus complication detail: with chronic kidney disease Chronic kidney disease stage: on chronic dialysis Qualified Code(s) : E11.22 - Type 2 diabetes mellitus with diabetic chronic kidney disease; N18.6 - End stage renal disease; Z99.2 - Dependence on renal dialysis (6) Hypercholesterolemia Code(s): E78.00 - PURE HYPERCHOLESTEROLEMIA, UNSPECIFIED (7) Hypertension Code(s): I10 - ESSENTIAL (PRIMARY) HYPERTENSION Qualifiers: Hypertension type: essential hypertension Qualified Code(s): I10 - Essential (primary) hypertension Assessment/Plan ASSESSMENT/PLAN: The pt is an 88F w/ a history of COPD (2L NC), ESRD (HD ,,) who presents for evaluation of 2 days of shortness of breath. 1) COPD exacerbation -IV steroids, taper to PO prednisone in AM -inhaled nebs -BIPAP QHS and PRN 2) ESRD on HD -HD per renal 3) Abdominal pain likely due to constipation -started bowel regimen 4) Afib -rates controlled on bb -cw eliquis 5) HTN -cw current meds 6) DM2 -cw current regimen
[2019-03-14] MEDS ORDERED: SODIUM CHLORIDE 250 ML IV PRN ×2 (19:53→19:54)
--- NOTE | 2019-03-14 19:53 | PN ---
Progress Note, Physician History of Present Illness: Pt seen and examined at bedside. She feels her breathing improves with bipap. She denies chest pain. - Current Medication List Current Medications: Active Medications Acetaminophen (Tylenol -) 650 mg PO Q6H PRN PRN Reason: PAIN Last Admin: 03/13/19 16:21 Dose: 650 mg Albuterol Sulfate (Ventolin 0.083% Nebulizer Soln -) 1 amp NEB Q6H PRN PRN Reason: SHORT OF BREATH/WHEEZING Last Admin: 03/13/19 20:30 Dose: 1 amp Apixaban (Eliquis -) 2.5 mg PO BID [facility] Last Admin: 03/14/19 09:58 Dose: 2.5 mg Atorvastatin Calcium (Lipitor -) 20 mg PO HS [facility] Last Admin: 03/13/19 21:30 Dose: 20 mg Docusate Sodium (Colace -) 100 mg PO TID [facility] Last Admin: 03/14/19 13:06 Dose: 100 mg Guaifenesin (Diabetic Tussin Dm -) 5 ml PO Q4H PRN PRN Reason: COUGH Last Admin: 03/14/19 17:26 Dose: 5 ml Sodium Chloride (Normal Saline -) 250 mls @ 3,000 mls/hr IV PRN PRN PRN Reason: Hypotension during Dialysis Stop: 03/13/19 16:00 Insulin Aspart (Novolog Vial Sliding Scale -) 1 vial SQ [facility]; Protocol Last Admin: 03/14/19 17:26 Dose: 2 units Insulin Detemir (Levemir Vial) 10 units SQ ACBK [facility] Last Admin: 03/14/19 07:05 Dose: 10 units Isosorbide Mononitrate (Imdur -) 30 mg PO DAILY [facility] Last Admin: 03/14/19 09:58 Dose: 30 mg Methylprednisolone Sodium Succinate (Solu-Medrol -) 40 mg IVPUSH BID [facility] Last Admin: 03/14/19 09:58 Dose: 40 mg Metoprolol Succinate (Toprol Xl -) 100 mg PO DAILY [facility] Last Admin: 03/14/19 09:58 Dose: 100 mg Non-Formulary Medication (Fluticasone/Umeclidin/Vilanter [Trelegy Ellipta 100- 62.5-25]) 1 each IH DAILY [facility] Ondansetron HCl (Zofran Injection) 4 mg IVPUSH Q8H PRN PRN Reason: NAUSEA Pantoprazole Sodium (Protonix -) 40 mg PO DAILY [facility] Last Admin: 03/14/19 09:58 Dose: 40 mg Ranolazine (Ranexa -) 500 mg PO BID [facility] Last Admin: 03/14/19 09:58 Dose: 500 mg Sevelamer Carbonate (Renvela -) 800 mg PO TIDCM [facility] Last Admin: 03/14/19 17:25 Dose: 800 mg - Objective Vital Signs: Vital Signs Temperature 98.4 F 03/14/19 18:00 Pulse Rate 85 03/14/19 18:00 Respiratory Rate 20 03/14/19 18:00 Blood Pressure 144/73 03/14/19 18:00 O2 Sat by Pulse Oximetry (%) 97 03/14/19 09:00 Constitutional: Yes: Calm Eyes: Yes: Conjunctiva Clear HENT: Yes: Atraumatic Neck: Yes: Supple Cardiovascular: Yes: S1, S2 Respiratory: Yes: On Nasal O2 Gastrointestinal: Yes: Soft Genitourinary: Yes: WNL Musculoskeletal: Yes: WNL Edema: No Neurological: Yes: Oriented Labs: CBC, BMP 03/13/19 12:15 03/14/19 08:55 INR, PTT INR 1.08 (0.83-1.09) 03/12/19 11:49 Problem List - Problems (1) ESRD (end stage renal disease) Code(s): N18.6 - END STAGE RENAL DISEASE Assessment/Plan Current Medications Generic Name Dose Route Start Last Admin Trade Name Freq PRN Reason Stop Dose Admin Acetaminophen 650 mg 03/12/19 14:44 03/13/19 16:21 Tylenol - PO 650 mg Q6H PRN Administration PAIN Albuterol Sulfate 1 amp 03/12/19 14:44 03/13/19 20:30 Ventolin 0.083% Nebulizer Soln - NEB 1 amp Q6H PRN Administration SHORT OF BREATH/WHEEZING Apixaban 2.5 mg 03/12/19 22:00 03/14/19 09:58 Eliquis - PO 2.5 mg BID [facility] Administration Atorvastatin Calcium 20 mg 03/12/19 22:00 03/13/19 21:30 Lipitor - PO 20 mg HS [facility] Administration Docusate Sodium 100 mg 03/13/19 14:00 03/14/19 13:06 Colace - PO 100 mg TID [facility] Administration Guaifenesin 5 ml 03/14/19 12:17 03/14/19 17:26 Diabetic Tussin Dm - PO 5 ml Q4H PRN Administration COUGH Sodium Chloride 250 mls @ 3,000 mls/hr 03/12/19 16:00 Normal Saline - IV 03/13/19 16:00 PRN PRN Hypotension during Dialysis Insulin Aspart 1 vial 03/12/19 16:30 03/14/19 17:26 Novolog Vial Sliding Scale - SQ 2 units ACHS [facility] Administration Protocol Insulin Detemir 10 units 03/13/19 07:00 03/14/19 07:05 Levemir Vial SQ 10 units ACBK [facility] Administration Isosorbide Mononitrate 30 mg 03/13/19 10:00 03/14/19 09:58 Imdur - PO 30 mg DAILY [facility] Administration Methylprednisolone Sodium Succinate 40 mg 03/13/19 22:00 03/14/19 09:58 Solu-Medrol - IVPUSH 40 mg BID [facility] Administration Metoprolol Succinate 100 mg 03/13/19 10:00 03/14/19 09:58 Toprol Xl - PO 100 mg DAILY [facility] Administration Non-Formulary Medication 1 each 03/13/19 10:00 Fluticasone/Umeclidin/Vilanter [Trelegy Ellipta 100-62.5-25] IH DAILY [facility] Ondansetron HCl 4 mg 03/13/19 11:50 Zofran Injection IVPUSH Q8H PRN NAUSEA Pantoprazole Sodium 40 mg 03/14/19 10:00 03/14/19 09:58 Protonix - PO 40 mg DAILY [facility] Administration Ranolazine 500 mg 03/12/19 22:00 03/14/19 09:58 Ranexa - PO 500 mg BID [facility] Administration Sevelamer Carbonate 800 mg 03/12/19 17:30 03/14/19 17:25 Renvela - PO 800 mg TIDCM [facility] Administration Impression 1. ESRD 2. HTN 3. HLD 4. COPD 5. DM 6. pos heb b core 7. altered mental status 8. anemia 9. a-fib 10. fever Plan - HD tomorrow for volume - renal diet - bipap as needed - monitor bp - discussed with family - pt on TTS schedule
[2019-03-14] MEDS: ALBUTEROL SO4 0.083% IH SOL 2.5 MG/3 ML VIAL.NEB. NEB PRN (20:15)
[2019-03-14] MEDS: ATORVASTATIN CA 20 MG TABLET (FP) PO SCH (21:09)
[2019-03-15] MEDS: INSULIN (LEVEMIR) 100 UNITS/ML UNITS SQ SCH (07:03)
[2019-03-15] MEDS: DOCUSATE SODIUM 100 MG CAPSULE (FP) PO SCH ×3 (07:03→21:58)
[2019-03-15] MEDS: INSULIN SLIDING SCALE (NOVOLOG) 1 VIAL SQ SCH ×5 (07:03→22:00)
[2019-03-15] MEDS: ACETAMINOPHEN 325 MG TABLET (FP) PO PRN (08:49)
[2019-03-15] MEDS: SEVELAMER CARBONATE 800 MG TAB (FP) PO SCH ×3 (08:51→18:35)
[2019-03-15 10:44] LABS: HEMOGLOBIN 9.6 GM/dL (10.7-15.3); MCH 27.4 pg (25.7-33.7); MCHC 33.1 g/dl (32.0-36.0); MEAN CELL VOLUME 82.7 fl (80-96); MEAN PLT VOLUME 9.4 fl (7.5-11.1); PLATELET COUNT 235 K/MM3 (134-434); RDW 16.5 % (11.6-15.6)
[2019-03-15 11:12] LABS: BLOOD UREA NITROGEN 64.8 mg/dL (7-18); CALCIUM 8.7 mg/dL (8.5-10.1); CREATININE 5.8 mg/dL (0.55-1.3); POTASSIUM 4.2 mmol/L (3.5-5.1)
--- NOTE | 2019-03-15 11:24 | PN ---
Physical Exam: SUBJECTIVE: Patient seen and examined at dialysis. She is comfortable and has no complaints. OBJECTIVE: Vital Signs Period Temp Pulse Resp BP Sys/Betancourt Pulse Ox Last 24 Hr 97.7 F-99.0 F 85-99 18-20 144-183/66-109 98 GENERAL: The patient is awake, alert, and fully oriented, in no acute distress. LUNGS: Breath sounds equal, clear to auscultation bilaterally, no wheezes, no crackles, no accessory muscle use. HEART: Regular rate and rhythm, S1, S2 without murmur, rub or gallop. ABDOMEN: Obese, soft, nontender, nondistended, normoactive bowel sounds, no guarding, no rebound, no hepatosplenomegaly, no masses. EXTREMITIES: 2+ pulses, warm, well-perfused, trace edema. Laboratory Results - last 24 hr 03/14/19 03/14/19 03/14/19 11:42 17:23 21:08 WBC RBC Hgb Hct MCV MCH MCHC RDW Plt Count MPV Sodium Potassium Chloride Carbon Dioxide Anion Gap BUN Creatinine Est GFR (CKD-EPI)AfAm Est GFR (CKD-EPI)NonAf POC Glucometer 219 197 115 Random Glucose Calcium 03/15/19 03/15/19 03/15/19 07:02 09:50 09:50 WBC 10.0 RBC 3.50 L Hgb 9.6 L Hct 29.0 L MCV 82.7 MCH 27.4 MCHC 33.1 RDW 16.5 H Plt Count 235 D MPV 9.4 Sodium 132 L Potassium 4.2 Chloride 95 L Carbon Dioxide 31 Anion Gap 7 L BUN 64.8 H Creatinine 5.8 H Est GFR (CKD-EPI)AfAm 6.96 Est GFR (CKD-EPI)NonAf 6.00 POC Glucometer 159 Random Glucose 191 H Calcium 8.7 Active Medications Generic Name Dose Route Start Last Admin Trade Name Freq PRN Reason Stop Dose Admin Acetaminophen 650 mg 03/12/19 14:44 03/13/19 16:21 Tylenol - PO 650 mg Q6H PRN Administration PAIN Albuterol Sulfate 1 amp 03/12/19 14:44 03/14/19 20:15 Ventolin 0.083% Nebulizer Soln - NEB 1 amp Q6H PRN Administration SHORT OF BREATH/WHEEZING Apixaban 2.5 mg 03/12/19 22:00 03/14/19 21:09 Eliquis - PO 2.5 mg BID [facility] Administration Atorvastatin Calcium 20 mg 03/12/19 22:00 03/14/19 21:09 Lipitor - PO 20 mg HS [facility] Administration Docusate Sodium 100 mg 03/13/19 14:00 03/15/19 07:03 Colace - PO Not Given TID [facility] Guaifenesin 5 ml 03/14/19 12:17 03/14/19 17:26 Diabetic Tussin Dm - PO 5 ml Q4H PRN Administration COUGH Sodium Chloride 250 mls @ 3,000 mls/hr 03/14/19 19:54 Normal Saline - IV 03/15/19 19:54 PRN PRN Hypotension during Dialysis Insulin Aspart 1 vial 03/12/19 16:30 03/15/19 07:03 Novolog Vial Sliding Scale - SQ 2 units ACHS [facility] Administration Protocol Insulin Detemir 10 units 03/13/19 07:00 03/15/19 07:03 Levemir Vial SQ 10 units ACBK [facility] Administration Isosorbide Mononitrate 30 mg 03/13/19 10:00 03/14/19 09:58 Imdur - PO 30 mg DAILY [facility] Administration Methylprednisolone Sodium Succinate 40 mg 03/13/19 22:00 03/14/19 21:09 Solu-Medrol - IVPUSH 40 mg BID [facility] Administration Metoprolol Succinate 100 mg 03/13/19 10:00 03/14/19 09:58 Toprol Xl - PO 100 mg DAILY [facility] Administration Non-Formulary Medication 1 each 03/13/19 10:00 Fluticasone/Umeclidin/Vilanter [Trelegy Ellipta 100-62.5-25] IH DAILY [facility] Ondansetron HCl 4 mg 03/13/19 11:50 Zofran Injection IVPUSH Q8H PRN NAUSEA Pantoprazole Sodium 40 mg 03/14/19 10:00 03/14/19 09:58 Protonix - PO 40 mg DAILY [facility] Administration Ranolazine 500 mg 03/12/19 22:00 03/14/19 21:09 Ranexa - PO 500 mg BID [facility] Administration Sevelamer Carbonate 800 mg 03/12/19 17:30 03/15/19 08:51 Renvela - PO 800 mg TIDCM [facility] Administration ASSESSMENT/PLAN: This is an 88 year old woman with a history of HTN, hyperlipidemia, a fib, chronic diastolic heart failure, type 2 DM, chronic hypoxic respiratory failure , COPD, ESRD, GERD who presented to the ED with shortness of breath. 1. Acute exacerbation of COPD - Continue SoluMedrol, Trelegy - Oxygen to keep sat >90% - BiPAP at night and as needed 2. ESRD - Continue HD, Renvela 3. Constipation - Improved - Continue Colace 4. History of atrial fibrillation - Remains in sinus rhythm - Continue Toprol XL, Eliquis 5. HTN 6. Hyperlipidemia - Continue Lipitor 7. Acute on chronic diastolic heart failure - Fluid management with HD 8. Type 2 DM - Continue Levemir, Novolg sliding scale 9. Chronic hypoxic respiratory failure 10. GERD - Continue Protonix Visit type - Emergency Visit Emergency Visit: Yes ED Registration Date: 03/12/19 Care time: The patient presented to the Emergency Department on the above date and was hospitalized for further evaluation of their emergent condition. - New Patient This patient is new to me today: Yes Date on this admission: 03/15/19 - Critical Care Critical Care patient: No - Discharge Referral Referred to [facility] No
[2019-03-15] MEDS: methylPREDNISolone NA SUCC 40 MG/1 ML VIAL IVPUSH SCH ×2 (13:25→21:59)
[2019-03-15] MEDS: ISOSORBIDE MONONITRATE 30 MG TAB.SR.24H (FP) PO SCH (13:25)
[2019-03-15] MEDS: PANTOPRAZOLE 40 MG TABLET PO SCH (13:25)
[2019-03-15] MEDS: RANOLAZINE E.R. 500 MG TABLET (FP) PO SCH ×2 (13:25→21:58)
[2019-03-15] MEDS: APIXABAN 2.5 MG TABLET PO SCH ×2 (13:26→21:58)
--- NOTE | 2019-03-15 14:09 | PN ---
Progress Note, Physician History of Present Illness: Pt seen and examined at bedside. She is awake and alert. She tolerated HD. - Current Medication List Current Medications: Active Medications Acetaminophen (Tylenol -) 650 mg PO Q6H PRN PRN Reason: PAIN Last Admin: 03/13/19 16:21 Dose: 650 mg Albuterol Sulfate (Ventolin 0.083% Nebulizer Soln -) 1 amp NEB Q6H PRN PRN Reason: SHORT OF BREATH/WHEEZING Last Admin: 03/14/19 20:15 Dose: 1 amp Apixaban (Eliquis -) 2.5 mg PO BID [facility] Last Admin: 03/15/19 13:26 Dose: 2.5 mg Atorvastatin Calcium (Lipitor -) 20 mg PO HS [facility] Last Admin: 03/14/19 21:09 Dose: 20 mg Docusate Sodium (Colace -) 100 mg PO TID [facility] Last Admin: 03/15/19 13:25 Dose: 100 mg Guaifenesin (Diabetic Tussin Dm -) 5 ml PO Q4H PRN PRN Reason: COUGH Last Admin: 03/14/19 17:26 Dose: 5 ml Sodium Chloride (Normal Saline -) 250 mls @ 3,000 mls/hr IV PRN PRN PRN Reason: Hypotension during Dialysis Stop: 03/15/19 19:54 Insulin Aspart (Novolog Vial Sliding Scale -) 1 vial SQ [facility]; Protocol Last Admin: 03/15/19 13:38 Dose: Not Given Insulin Detemir (Levemir Vial) 10 units SQ ACBK [facility] Last Admin: 03/15/19 07:03 Dose: 10 units Isosorbide Mononitrate (Imdur -) 30 mg PO DAILY [facility] Last Admin: 03/15/19 13:25 Dose: 30 mg Methylprednisolone Sodium Succinate (Solu-Medrol -) 40 mg IVPUSH BID [facility] Last Admin: 03/15/19 13:25 Dose: 40 mg Metoprolol Succinate (Toprol Xl -) 100 mg PO DAILY [facility] Last Admin: 03/15/19 13:25 Dose: 100 mg Non-Formulary Medication (Fluticasone/Umeclidin/Vilanter [Trelegy Ellipta 100- 62.5-25]) 1 each IH DAILY [facility] Ondansetron HCl (Zofran Injection) 4 mg IVPUSH Q8H PRN PRN Reason: NAUSEA Pantoprazole Sodium (Protonix -) 40 mg PO DAILY [facility] Last Admin: 03/15/19 13:25 Dose: 40 mg Ranolazine (Ranexa -) 500 mg PO BID [facility] Last Admin: 03/15/19 13:25 Dose: 500 mg Sevelamer Carbonate (Renvela -) 800 mg PO TIDCM [facility] Last Admin: 03/15/19 13:27 Dose: 800 mg - Objective Vital Signs: Vital Signs Temperature 97.7 F 03/15/19 09:25 Pulse Rate 91 H 03/15/19 12:35 Respiratory Rate 18 03/15/19 12:35 Blood Pressure 166/91 03/15/19 12:35 O2 Sat by Pulse Oximetry (%) 98 03/14/19 21:00 Constitutional: Yes: Calm Eyes: Yes: Conjunctiva Clear HENT: Yes: Atraumatic Cardiovascular: Yes: S1, S2 Respiratory: Yes: On Nasal O2 Gastrointestinal: Yes: Soft Genitourinary: Yes: WNL Musculoskeletal: Yes: WNL Edema: Yes Edema: LLE: Trace, RLE: Trace Neurological: Yes: Oriented Labs: CBC, BMP 03/15/19 09:50 03/15/19 09:50 INR, PTT INR 1.08 (0.83-1.09) 03/12/19 11:49 Problem List - Problems (1) ESRD (end stage renal disease) Code(s): N18.6 - END STAGE RENAL DISEASE Assessment/Plan Current Medications Generic Name Dose Route Start Last Admin Trade Name Freq PRN Reason Stop Dose Admin Acetaminophen 650 mg 03/12/19 14:44 03/13/19 16:21 Tylenol - PO 650 mg Q6H PRN Administration PAIN Albuterol Sulfate 1 amp 03/12/19 14:44 03/14/19 20:15 Ventolin 0.083% Nebulizer Soln - NEB 1 amp Q6H PRN Administration SHORT OF BREATH/WHEEZING Apixaban 2.5 mg 03/12/19 22:00 03/15/19 13:26 Eliquis - PO 2.5 mg BID [facility] Administration Atorvastatin Calcium 20 mg 03/12/19 22:00 03/14/19 21:09 Lipitor - PO 20 mg HS [facility] Administration Docusate Sodium 100 mg 03/13/19 14:00 03/15/19 13:25 Colace - PO 100 mg TID [facility] Administration Guaifenesin 5 ml 03/14/19 12:17 03/14/19 17:26 Diabetic Tussin Dm - PO 5 ml Q4H PRN Administration COUGH Sodium Chloride 250 mls @ 3,000 mls/hr 03/14/19 19:54 Normal Saline - IV 03/15/19 19:54 PRN PRN Hypotension during Dialysis Insulin Aspart 1 vial 03/12/19 16:30 03/15/19 13:38 Novolog Vial Sliding Scale - SQ Not Given ACHS [facility] Protocol Insulin Detemir 10 units 03/13/19 07:00 03/15/19 07:03 Levemir Vial SQ 10 units ACBK [facility] Administration Isosorbide Mononitrate 30 mg 03/13/19 10:00 03/15/19 13:25 Imdur - PO 30 mg DAILY [facility] Administration Methylprednisolone Sodium Succinate 40 mg 03/13/19 22:00 03/15/19 13:25 Solu-Medrol - IVPUSH 40 mg BID [facility] Administration Metoprolol Succinate 100 mg 03/13/19 10:00 03/15/19 13:25 Toprol Xl - PO 100 mg DAILY [facility] Administration Non-Formulary Medication 1 each 03/13/19 10:00 Fluticasone/Umeclidin/Vilanter [Trelegy Ellipta 100-62.5-25] IH DAILY [facility] Ondansetron HCl 4 mg 03/13/19 11:50 Zofran Injection IVPUSH Q8H PRN NAUSEA Pantoprazole Sodium 40 mg 03/14/19 10:00 03/15/19 13:25 Protonix - PO 40 mg DAILY [facility] Administration Ranolazine 500 mg 03/12/19 22:00 03/15/19 13:25 Ranexa - PO 500 mg BID [facility] Administration Sevelamer Carbonate 800 mg 03/12/19 17:30 03/15/19 13:27 Renvela - PO 800 mg TIDCM [facility] Administration Impression 1. ESRD 2. HTN 3. HLD 4. COPD 5. DM 6. pos heb b core 7. altered mental status 8. anemia 9. a-fib 10. fever Plan - HD today - pt to resume her schedule tomorrow - renal diet - bipap as needed - discussed with family
[2019-03-15] MEDS ORDERED: amLODIPine BESYLATE 5 MG TABLET (FP) PO ONE (20:08)
[2019-03-15] MEDS: ALBUTEROL SO4 0.083% IH SOL 2.5 MG/3 ML VIAL.NEB. NEB PRN (20:10)
[2019-03-15] MEDS: ATORVASTATIN CA 20 MG TABLET (FP) PO SCH (21:58)
[2019-03-16] MEDS: INSULIN (LEVEMIR) 100 UNITS/ML UNITS SQ SCH (07:29)
[2019-03-16] MEDS: DOCUSATE SODIUM 100 MG CAPSULE (FP) PO SCH ×2 (07:30→14:23)
[2019-03-16] MEDS: INSULIN SLIDING SCALE (NOVOLOG) 1 VIAL SQ SCH ×2 (07:30→14:23)
[2019-03-16] MEDS: SEVELAMER CARBONATE 800 MG TAB (FP) PO SCH ×2 (08:22→14:34)
[2019-03-16 11:08] LABS: HEMATOCRIT 29.1 % (32.4-45.2); HEMOGLOBIN 9.5 GM/dL (10.7-15.3); MCH 27.2 pg (25.7-33.7); MCHC 32.7 g/dl (32.0-36.0); MEAN CELL VOLUME 83.3 fl (80-96); MEAN PLT VOLUME 9.8 fl (7.5-11.1); PLATELET COUNT 273 K/MM3 (134-434); RBC 3.49 M/mm3 (3.60-5.2); RDW 16.5 % (11.6-15.6); WHITE BLOOD COUNT 6.5 K/mm3 (4.0-10.0)
[2019-03-16] MEDS ORDERED: SODIUM CHLORIDE 250 ML IV PRN (11:25)
[2019-03-16] MEDS ORDERED: EPOETIN ALFA 10,000 UNIT/1 ML VIAL IVPUSH ONE (11:30)
[2019-03-16 11:33] LABS: BLOOD UREA NITROGEN 52.6 mg/dL (7-18); CALCIUM 8.9 mg/dL (8.5-10.1); CREATININE 4.4 mg/dL (0.55-1.3); POTASSIUM 4.2 mmol/L (3.5-5.1)
[2019-03-16] MEDS: methylPREDNISolone NA SUCC 40 MG/1 ML VIAL IVPUSH SCH (14:22)
[2019-03-16] MEDS: PANTOPRAZOLE 40 MG TABLET PO SCH (14:23)
[2019-03-16] MEDS: ISOSORBIDE MONONITRATE 30 MG TAB.SR.24H (FP) PO SCH (14:23)
[2019-03-16] MEDS: RANOLAZINE E.R. 500 MG TABLET (FP) PO SCH (14:23)
[2019-03-16] MEDS: APIXABAN 2.5 MG TABLET PO SCH (14:23)
--- NOTE | 2019-03-16 14:23 | PN ---
Progress Note, Physician Chief Complaint: sob History of Present Illness: patient seen and examined, feeling well no complaints. Breathing better - Current Medication List Current Medications: Active Medications Acetaminophen (Tylenol -) 650 mg PO Q6H PRN PRN Reason: PAIN Last Admin: 03/13/19 16:21 Dose: 650 mg Albuterol Sulfate (Ventolin 0.083% Nebulizer Soln -) 1 amp NEB Q6H PRN PRN Reason: SHORT OF BREATH/WHEEZING Last Admin: 03/15/19 20:10 Dose: 1 amp Apixaban (Eliquis -) 2.5 mg PO BID [facility] Last Admin: 03/15/19 21:58 Dose: 2.5 mg Atorvastatin Calcium (Lipitor -) 20 mg PO HS [facility] Last Admin: 03/15/19 21:58 Dose: 20 mg Docusate Sodium (Colace -) 100 mg PO TID [facility] Last Admin: 03/16/19 07:30 Dose: Not Given Guaifenesin (Diabetic Tussin Dm -) 5 ml PO Q4H PRN PRN Reason: COUGH Last Admin: 03/14/19 17:26 Dose: 5 ml Insulin Aspart (Novolog Vial Sliding Scale -) 1 vial SQ [facility]; Protocol Last Admin: 03/16/19 07:30 Dose: Not Given Insulin Detemir (Levemir Vial) 10 units SQ ACBK [facility] Last Admin: 03/16/19 07:29 Dose: 10 units Isosorbide Mononitrate (Imdur -) 30 mg PO DAILY [facility] Last Admin: 03/15/19 13:25 Dose: 30 mg Methylprednisolone Sodium Succinate (Solu-Medrol -) 40 mg IVPUSH BID [facility] Last Admin: 03/15/19 21:59 Dose: 40 mg Metoprolol Succinate (Toprol Xl -) 100 mg PO DAILY [facility] Last Admin: 03/15/19 13:25 Dose: 100 mg Non-Formulary Medication (Fluticasone/Umeclidin/Vilanter [Trelegy Ellipta 100- 62.5-25]) 1 each IH DAILY [facility] Ondansetron HCl (Zofran Injection) 4 mg IVPUSH Q8H PRN PRN Reason: NAUSEA Pantoprazole Sodium (Protonix -) 40 mg PO DAILY [facility] Last Admin: 03/15/19 13:25 Dose: 40 mg Ranolazine (Ranexa -) 500 mg PO BID [facility] Last Admin: 03/15/19 21:58 Dose: 500 mg Sevelamer Carbonate (Renvela -) 800 mg PO TIDCM [facility] Last Admin: 03/16/19 08:22 Dose: 800 mg - Objective Vital Signs: Vital Signs Temperature 98 F 03/16/19 10:30 Pulse Rate 97 H 03/16/19 12:10 Respiratory Rate 18 03/16/19 12:10 Blood Pressure 153/91 03/16/19 12:10 O2 Sat by Pulse Oximetry (%) 99 03/16/19 08:37 Constitutional: Yes: Well Nourished, No Distress, Calm HENT: Yes: WNL, Atraumatic, Normocephalic Cardiovascular: Yes: WNL, Regular Rate and Rhythm Respiratory: Yes: WNL, Regular, CTA Bilaterally Gastrointestinal: Yes: WNL, Normal Bowel Sounds, Soft Musculoskeletal: Yes: WNL Extremities: Yes: WNL Edema: No Labs: CBC, BMP 03/16/19 10:40 03/16/19 10:08 INR, PTT INR 1.08 (0.83-1.09) 03/12/19 11:49 Problem List - Problems (1) COPD (chronic obstructive pulmonary disease) Code(s): J44.9 - CHRONIC OBSTRUCTIVE PULMONARY DISEASE, UNSPECIFIED Qualifiers: COPD type: unspecified COPD Qualified Code(s): J44.9 - Chronic obstructive pulmonary disease, unspecified (2) ESRD (end stage renal disease) on dialysis Code(s): N18.6 - END STAGE RENAL DISEASE; Z99.2 - DEPENDENCE ON RENAL DIALYSIS (3) Abdominal pain Code(s): R10.9 - UNSPECIFIED ABDOMINAL PAIN (4) COPD exacerbation Code(s): J44.1 - CHRONIC OBSTRUCTIVE PULMONARY DISEASE W (ACUTE) EXACERBATION (5) Diabetes Code(s): E11.9 - TYPE 2 DIABETES MELLITUS WITHOUT COMPLICATIONS Qualifiers: Diabetes mellitus type: type 2 Diabetes mellitus long goods drier insulin use: without long goods drier use Diabetes mellitus complication status: with kidney complications Diabetes mellitus complication detail: with chronic kidney disease Chronic kidney disease stage: on chronic dialysis Qualified Code(s) : E11.22 - Type 2 diabetes mellitus with diabetic chronic kidney disease; N18.6 - End stage renal disease; Z99.2 - Dependence on renal dialysis (6) Hypercholesterolemia Code(s): E78.00 - PURE HYPERCHOLESTEROLEMIA, UNSPECIFIED (7) Hypertension Code(s): I10 - ESSENTIAL (PRIMARY) HYPERTENSION Qualifiers: Hypertension type: essential hypertension Qualified Code(s): I10 - Essential (primary) hypertension Assessment/Plan The pt is an 88F w/ a history of COPD (2L NC), ESRD (HD T,Th,Sa) who presents for evaluation of 2 days of shortness of breath. 1) COPD exacerbation, improved -PO prednisone taper -inhaled nebs -BIPAP QHS and PRN 2) ESRD on HD -HD per renal 3) Abdominal pain likely due to constipation -started bowel regimen -improved 4) Afib -rates controlled on bb -cw eliquis 5) HTN -cw current meds 6) DM2 -cw current regimen
--- NOTE | 2019-03-16 14:24 | DS ---
Physical Exam: SUBJECTIVE: Patient seen and examined. No events overnight. Patient offers no complaints. Says she feels better today. OBJECTIVE: Vital Signs Period Temp Pulse Resp BP Sys/Betancourt Pulse Ox Last 24 Hr 97.6 F-98.8 F 86-97 18-20 149-191/76-98 97-99 PHYSICAL EXAM GENERAL: comfortable in NAD HEAD: Normal with no signs of trauma. EYES: PERRL, conjunctiva clear. ENT: moist mucous membranes. NECK: supple. LUNGS: Lungs CTA b/l HEART: RRR ABDOMEN: Soft, nontender, nondistended, normoactive bowel sounds EXTREMITIES: 2+ pulses LABS Laboratory Results - last 24 hr 03/15/19 03/15/19 03/16/19 17:28 21:52 07:27 WBC RBC Hgb Hct MCV MCH MCHC RDW Plt Count MPV Sodium Potassium Chloride Carbon Dioxide Anion Gap BUN Creatinine Est GFR (CKD-EPI)AfAm Est GFR (CKD-EPI)NonAf POC Glucometer 204 195 140 Random Glucose Calcium 03/16/19 03/16/19 03/16/19 10:08 10:40 14:21 WBC 6.5 RBC 3.49 L Hgb 9.5 L Hct 29.1 L MCV 83.3 MCH 27.2 MCHC 32.7 RDW 16.5 H Plt Count 273 MPV 9.8 Sodium 131 L Potassium 4.2 Chloride 94 L Carbon Dioxide 31 Anion Gap 7 L BUN 52.6 H Creatinine 4.4 H Est GFR (CKD-EPI)AfAm 9.71 Est GFR (CKD-EPI)NonAf 8.38 POC Glucometer 102 Random Glucose 352 H Calcium 8.9 HOSPITAL COURSE: Date of Admission:03/12/19 The pt is an 88F w/ a history of COPD (2L NC), ESRD (HD T,Th,) who presents for evaluation of 2 days of shortness of breath. 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 Date of Discharge: 03/16/19 Minutes to complete discharge: 35 Discharge Summary Problems reviewed: Yes Reason For Visit: DIABETES MELLITUS,ACUTE EXACERB OF COPD,ESRD Current Active Problems COPD (chronic obstructive pulmonary disease) (Acute) ESRD (end stage renal disease) on dialysis (Acute) Condition: Improved - Instructions Diet, Activity, Other Instructions: You were admitted because of difficulty breathing. Your breathing improved with breathing treatments. You will be discharged on a steroid Taper. Please take medications as prescribed. Prednisone: Day 1: 40mg Day 2: 30mg Day 3: 20mg Day 4: 10mg Follow up with your primary care doctor in 1 week. If you develop worsening shortness of breath, please go to your nearest emergency room. Referrals: ON STAFF,NOT [Primary Care Provider] - Disposition: HOME - Home Medications Comprehensive Discharge Medication List: Ambulatory Orders Apixaban [Eliquis -] 2.5 mg PO BID tablet 06/13/18 Isosorbide Mononitrate [Imdur -] 30 mg PO DAILY tab.sr.24h 06/13/18 Sevelamer Carbonate [Renvela -] 800 mg PO TIDCM tab 06/13/18 Alendronate Sodium [Binosto] 70 mg PO DAILY 11/05/18 Atorvastatin Ca [Lipitor] 20 mg PO HS 11/05/18 Esomeprazole Magnesium 20 mg PO DAILY 11/05/18 Fluticasone/Umeclidin/Vilanter [Trelegy Ellipta 100-62.5-25] 1 each IH DAILY 07/19 Insulin Glargine,Hum.rec.anlog [Toujeo Solostar] 10 unit SQ DAILY 11/05/18 Metoprolol Succinate [Toprol XL -] 100 mg PO DAILY 11/05/18 Ondansetron [Zofran *Odt*] 4 mg SL DAILY 11/05/18 Ranolazine [Ranolazine ER] 500 mg PO BID 11/05/18 Albuterol 0.083% Nebulizer Amelia [Ventolin 0.083% Nebulizer Soln -] 1 amp NEB Q6H PRN amp 03/16/19 Prednisone See Taper PO DAILY 4 Days #10 tablet 03/16/19 This patient is new to me today: Yes Date on this admission: 03/16/19 Emergency Visit: Yes ED Registration Date: 03/12/19 Care time: The patient presented to the Emergency Department on the above date and was hospitalized for further evaluation of their emergent condition. Critical Care patient: No - Discharge Referral Referred to [facility] Med [facility].C[facility] No ATTENDING PHYSICIAN STATEMENT I saw and evaluated the patient. I reviewed the resident's note and discussed the case with the resident. I agree with the resident's findings and plan as documented. SUBJECTIVE: OBJECTIVE: ASSESSMENT AND PLAN:
--- NOTE | 2019-03-16 14:31 | PN ---
Progress Note, Physician History of Present Illness: Pt seen and examined at bedside. She is tolerating HD. - Current Medication List Current Medications: Active Medications Acetaminophen (Tylenol -) 650 mg PO Q6H PRN PRN Reason: PAIN Last Admin: 03/13/19 16:21 Dose: 650 mg Albuterol Sulfate (Ventolin 0.083% Nebulizer Soln -) 1 amp NEB Q6H PRN PRN Reason: SHORT OF BREATH/WHEEZING Last Admin: 03/15/19 20:10 Dose: 1 amp Apixaban (Eliquis -) 2.5 mg PO BID [facility] Last Admin: 03/16/19 14:23 Dose: 2.5 mg Atorvastatin Calcium (Lipitor -) 20 mg PO HS [facility] Last Admin: 03/15/19 21:58 Dose: 20 mg Docusate Sodium (Colace -) 100 mg PO TID [facility] Last Admin: 03/16/19 14:23 Dose: 100 mg Guaifenesin (Diabetic Tussin Dm -) 5 ml PO Q4H PRN PRN Reason: COUGH Last Admin: 03/14/19 17:26 Dose: 5 ml Insulin Aspart (Novolog Vial Sliding Scale -) 1 vial SQ [facility]; Protocol Last Admin: 03/16/19 14:23 Dose: Not Given Insulin Detemir (Levemir Vial) 10 units SQ ACBK [facility] Last Admin: 03/16/19 07:29 Dose: 10 units Isosorbide Mononitrate (Imdur -) 30 mg PO DAILY [facility] Last Admin: 03/16/19 14:23 Dose: 30 mg Methylprednisolone Sodium Succinate (Solu-Medrol -) 40 mg IVPUSH BID [facility] Last Admin: 03/16/19 14:22 Dose: 40 mg Metoprolol Succinate (Toprol Xl -) 100 mg PO DAILY [facility] Last Admin: 03/16/19 14:23 Dose: 100 mg Non-Formulary Medication (Fluticasone/Umeclidin/Vilanter [Trelegy Ellipta 100- 62.5-25]) 1 each IH DAILY [facility] Ondansetron HCl (Zofran Injection) 4 mg IVPUSH Q8H PRN PRN Reason: NAUSEA Pantoprazole Sodium (Protonix -) 40 mg PO DAILY [facility] Last Admin: 03/16/19 14:23 Dose: 40 mg Ranolazine (Ranexa -) 500 mg PO BID [facility] Last Admin: 03/16/19 14:23 Dose: 500 mg Sevelamer Carbonate (Renvela -) 800 mg PO TIDCM [facility] Last Admin: 03/16/19 08:22 Dose: 800 mg - Objective Vital Signs: Vital Signs Temperature 98 F 03/16/19 10:30 Pulse Rate 97 H 03/16/19 12:10 Respiratory Rate 18 03/16/19 12:10 Blood Pressure 153/91 03/16/19 12:10 O2 Sat by Pulse Oximetry (%) 99 03/16/19 08:37 Constitutional: Yes: Calm Eyes: Yes: Conjunctiva Clear HENT: Yes: Atraumatic Neck: Yes: Supple Cardiovascular: Yes: S1, S2 Respiratory: Yes: On Nasal O2 Gastrointestinal: Yes: Soft Genitourinary: Yes: WNL Musculoskeletal: Yes: WNL Edema: No Neurological: Yes: Oriented Psychiatric: Yes: Oriented Labs: CBC, BMP 03/16/19 10:40 03/16/19 10:08 INR, PTT INR 1.08 (0.83-1.09) 03/12/19 11:49 Problem List - Problems (1) ESRD (end stage renal disease) Code(s): N18.6 - END STAGE RENAL DISEASE Assessment/Plan Current Medications Generic Name Dose Route Start Last Admin Trade Name Freq PRN Reason Stop Dose Admin Acetaminophen 650 mg 03/12/19 14:44 03/13/19 16:21 Tylenol - PO 650 mg Q6H PRN Administration PAIN Albuterol Sulfate 1 amp 03/12/19 14:44 03/15/19 20:10 Ventolin 0.083% Nebulizer Soln - NEB 1 amp Q6H PRN Administration SHORT OF BREATH/WHEEZING Apixaban 2.5 mg 03/12/19 22:00 03/16/19 14:23 Eliquis - PO 2.5 mg BID [facility] Administration Atorvastatin Calcium 20 mg 03/12/19 22:00 03/15/19 21:58 Lipitor - PO 20 mg HS [facility] Administration Docusate Sodium 100 mg 03/13/19 14:00 03/16/19 14:23 Colace - PO 100 mg TID [facility] Administration Guaifenesin 5 ml 03/14/19 12:17 03/14/19 17:26 Diabetic Tussin Dm - PO 5 ml Q4H PRN Administration COUGH Insulin Aspart 1 vial 03/12/19 16:30 03/16/19 14:23 Novolog Vial Sliding Scale - SQ Not Given [facility] Protocol Insulin Detemir 10 units 03/13/19 07:00 03/16/19 07:29 Levemir Vial SQ 10 units ACBK [facility] Administration Isosorbide Mononitrate 30 mg 03/13/19 10:00 03/16/19 14:23 Imdur - PO 30 mg DAILY [facility] Administration Methylprednisolone Sodium Succinate 40 mg 03/13/19 22:00 03/16/19 14:22 Solu-Medrol - IVPUSH 40 mg BID [facility] Administration Metoprolol Succinate 100 mg 03/13/19 10:00 03/16/19 14:23 Toprol Xl - PO 100 mg DAILY [facility] Administration Non-Formulary Medication 1 each 03/13/19 10:00 Fluticasone/Umeclidin/Vilanter [Trelegy Ellipta 100-62.5-25] IH DAILY [facility] Ondansetron HCl 4 mg 03/13/19 11:50 Zofran Injection IVPUSH Q8H PRN NAUSEA Pantoprazole Sodium 40 mg 03/14/19 10:00 03/16/19 14:23 Protonix - PO 40 mg DAILY [facility] Administration Ranolazine 500 mg 03/12/19 22:00 03/16/19 14:23 Ranexa - PO 500 mg BID [facility] Administration Sevelamer Carbonate 800 mg 03/12/19 17:30 03/16/19 08:22 Renvela - PO 800 mg TIDCM [facility] Administration Impression 1. ESRD 2. HTN 3. HLD 4. COPD 5. DM 6. pos heb b core 7. altered mental status 8. anemia 9. a-fib 10. fever Plan - HD today, pt back on schedule - next HD on , scheduled as outpt - renal diet - bipap as needed - discussed with family
[2019-03-16 16:22] VITALS: BP 161/87; PULSE 98; TEMP 97.9
== END 2019-03-16 17:48 | disposition home health service (06) | DRG 190 ==
LOC: JER 10:16 → SUPCPDRO 10:16 → JERBED 13:15 → J5S 20:11
PROVIDERS: ADMIT Internal Medicine; ATTEND Internal Medicine
PROC: 5A1D70Z Performance of Urinary Filtration, Intermittent, Less than 6 Hours Per Day (ICD-10-PCS; principal; 2019-03-13)
PROC: 5A1D70Z Performance of Urinary Filtration, Intermittent, Less than 6 Hours Per Day (ICD-10-PCS; 2019-03-15)
PROC: 5A1D70Z Performance of Urinary Filtration, Intermittent, Less than 6 Hours Per Day (ICD-10-PCS; 2019-03-16)
DX: J44.1 Chronic obstructive pulmonary disease with (acute) exacerbation (principal); N18.6 End stage renal disease; I50.33 Acute on chronic diastolic (congestive) heart failure; J96.11 Chronic respiratory failure with hypoxia; I13.2 Hypertensive heart and chronic kidney disease with heart failure and with stage 5 chronic kidney disease, or end stage renal disease; K21.9 Gastro-esophageal reflux disease without esophagitis; D64.9 Anemia, unspecified; Z99.81 Dependence on supplemental oxygen; E78.00 Pure hypercholesterolemia, unspecified; R00.0 Tachycardia, unspecified; F03.90 Unspecified dementia, unspecified severity, without behavioral disturbance, psychotic disturbance, mood disturbance, and anxiety; R41.82 Altered mental status, unspecified; I48.91 Unspecified atrial fibrillation; E11.22 Type 2 diabetes mellitus with diabetic chronic kidney disease; Z99.2 Dependence on renal dialysis; R50.9 Fever, unspecified; K59.09 Other constipation
CPT/HCPCS: 36415; 71045-TC-FY; 74019-TC-FY; 80048; 80053; 81003; 82803; 82962; 83605; 83735; 84484; 85025; 85027; 85610; 85730; 87040; 87081; 87086; 87804; 93005; 93010; 94640; 94660; 99284-25; G0008; J0131; J0885; Q2036

== ENCOUNTER 2019-03-29 16:48 | Inpatient (IN) | payer OTHER ==
--- NOTE | 2019-03-29 17:08 | PDOC ---
Rapid Medical Evaluation Chief Complaint: Pain, Acute Time Seen by Provider: 03/29/19 17:02 Medical Evaluation: Allergies Allergy/AdvReac Type Severity Reaction Status Date / Time egg AdvReac Vomiting Verified 03/03/19 20:38 03/29/19 17:04 Pt c/o: abd pain with vomiting, poor po intake, hx esrd, copd, recent discharge from [facility] Pt on brief exam: no abd distention, noted pursed lip breathing pt ordered for: labs, iv zofran, kub Pt to proceed to the ED Discharge Disposition - Diagnosis Vomiting, SBO (small bowel obstruction) - Discharge Dispostion Disposition: VNS/HOME HEALTH CARE Condition at time of disposition: Stable - Referrals - Patient Instructions - Post Discharge Activity
[2019-03-29 18:21] LABS: BASO % 0.2 % (0-2.0); EOS % 0.2 % (0-4.5); HEMATOCRIT 32.1 % (32.4-45.2); HEMOGLOBIN 10.5 GM/dL (10.7-15.3); LYMPH % 6.3 % (8-40); MCH 27.2 pg (25.7-33.7); MCHC 32.5 g/dl (32.0-36.0); MEAN CELL VOLUME 83.5 fl (80-96); MEAN PLT VOLUME 9.4 fl (7.5-11.1); MONO % 8.5 % (3.8-10.2); NEUT % 84.8 % (42.8-82.8); PLATELET COUNT 417 K/MM3 (134-434); RBC 3.85 M/mm3 (3.60-5.2); RDW 18.4 % (11.6-15.6); WHITE BLOOD COUNT 15.4 K/mm3 (4.0-10.0)
[2019-03-29 19:01] LABS: ALBUMIN 3.6 g/dl (3.4-5.0); ALK PHOS 92 U/L (45-117); ANION GAP 6 MMOL/L (8-16); BILIRUBIN,TOTAL 0.7 mg/dL (0.2-1); BLOOD UREA NITROGEN 33.3 mg/dL (7-18); CALCIUM 9.9 mg/dL (8.5-10.1); CHLORIDE 90 mmol/L (98-107); CO2 34 mmol/L (21-32); GLUCOSE,RANDOM 155 mg/dL (74-106); POTASSIUM 5.3 mmol/L (3.5-5.1); SGOT/AST 36 U/L (15-37); SGPT/ALT 19 U/L (13-61); SODIUM 131 mmol/L (136-145); TOT PROT 7.2 g/dl (6.4-8.2)
--- NOTE | 2019-03-29 19:55 | PDOC ---
Attending Attestation - Resident Resident Name: RachanaPrabhjot - ED Attending Attestation I have performed the following: I have examined & evaluated the patient, The case was reviewed & discussed with the resident, I agree w/resident's findings & plan - HPI HPI: 03/30/19 02:26 see resident hpi - Physicial Exam PE: 03/30/19 02:26 agree with resident exam - Medical Decision Making 88-year-old female sent in for evaluation of abdominal pain CT scan consistent with bowel obstruction Surgical consultation called Nephrology contacted as well due to patient's need for hemodialysis We will admit to medical /28/20 02:26
--- NOTE | 2019-03-29 20:03 | PDOC ---
History of Present Illness - General Chief Complaint: Pain, Acute Stated Complaint: ABD PAIN Time Seen by Provider: 03/29/19 17:02 History Source: Patient Exam Limitations: No Limitations - History of Present Illness Initial Comments: 88 yo F with a hx of ESRD (Friday, , and Friday), COPD (on 2L NC at home), CHF, DM, HTN, HLD, afib (on eliquis), anemia, and hx of repair of left inguinal incarcerated hernia and SBO (11/2018) presents with 3 days of abdominal pain with associated nausea and vomiting. Per the daughter at bedside , the patient has had multiple vomiting episodes that are non bloody and non billious. Per the patient, the abdominal pain is located in the epigastric and RUQ region without radiation. The pain is described as a cramping like sensation without aggravating or relieving factors. Per the patient, her last BM prior to presentation was 2 days prior. Denies the following: fever, chills, SOB, chest pain, hematochezia, diarrhea, constipation, dysuria, hematuria, vaginal bleeding, vaginal discharge, low back pain, and recent immobilizations. Allergies: NKDA Past History - Past Medical History Allergies/Adverse Reactions: Allergies Allergy/AdvReac Type Severity Reaction Status Date / Time egg AdvReac Vomiting Verified 03/29/19 18:07 Home Medications: Ambulatory Orders Apixaban [Eliquis -] 2.5 mg PO BID tablet 06/13/18 Isosorbide Mononitrate [Imdur -] 30 mg PO DAILY tab.sr.24h 06/13/18 Sevelamer Carbonate [Renvela -] 800 mg PO TIDCM tab 06/13/18 Alendronate Sodium [Binosto] 70 mg PO WEEKLY 11/05/18 Atorvastatin Ca [Lipitor] 20 mg PO HS 11/05/18 Esomeprazole Magnesium 20 mg PO DAILY 11/05/18 Fluticasone/Umeclidin/Vilanter [Trelegy Ellipta 100-62.5-25] 1 each IH DAILY 07/19 Insulin Glargine,Hum.rec.anlog [Toucelia Solostar] 10 unit SQ DAILY 11/05/18 Metoprolol Succinate [Toprol XL -] 100 mg PO DAILY 11/05/18 Ondansetron [Zofran *Odt*] 4 mg SL DAILY 11/05/18 Ranolazine [Ranolazine ER] 500 mg PO BID 11/05/18 Albuterol 0.083% Nebulizer Amelia [Ventolin 0.083% Nebulizer Soln -] 1 amp NEB Q6H PRN amp 03/16/19 Calcium Acetate 2 tab PO TID 03/30/19 Hydralazine HCl 100 mg PO BID 03/30/19 Telmisartan/Amlodipine [Telmisartan-Amlodipine 80-10] 1 tab PO DAILY 03/30/19 Anemia: Yes Asthma: Yes Cancer: No Cardiac Disorders: No CVA: Yes COPD: Yes (home o2) CHF: Yes Dementia: No Diabetes: Yes GI Disorders: Yes (GERD) Disorders: Yes HTN: Yes Hypercholesterolemia: Yes Kidney Stones: Yes Liver Disease: No Seizures: No Thyroid Disease: No - Surgical History Abdominal Surgery: No Appendectomy: No Cardiac Surgery: No Cholecystectomy: No Lung Surgery: No Neurologic Surgery: Yes (CRANIOTOMY 10YEARS AGO) Orthopedic Surgery: No - Immunization History Immunization Up to Date: Yes - Psycho Social/Smoking Cessation Hx Smoking History: Never smoked Have you smoked in the past 12 months: No Number of Cigarettes Smoked Daily: 0 If you are a former smoker, when did you quit?: 50 YEARS Cigars Per Day: 0 Information on smoking cessation initiated: No Hx Alcohol Use: No Drug/Substance Use Hx: No Substance Use Type: None Hx Substance Use Treatment: No Review of Systems - Review of Systems Able to Perform ROS?: Yes Is the patient limited Bulgarian proficient: No Constitutional: No: Chills, Diaphoresis, Fever, Weakness HEENTM: No: Eye Pain, Ear Pain, Nose Pain, Throat Pain, Mouth Pain Respiratory: No: Cough, Shortness of Breath, Hemoptysis Cardiac (ROS): No: Chest Pain, Lightheadedness, Palpitations, Chest Tightness ABD/GI: Yes: Nausea, Poor Appetite, Poor Fluid Intake, Vomiting, Abdominal cramping. No: Constipated, Diarrhea, Rectal Bleeding, Tarry Stools : No: Burning, Dysuria, Hematuria Musculoskeletal: No: Back Pain, Joint Pain, Neck Pain Integumentary: No: Bruising, Erythema, Rash Neurological: No: Headache, Numbness Psychiatric: No: Change in Appetite Endocrine: No: Unexplained Weight Loss Hematologic/Lymphatic: No: Anemia *Physical Exam - Vital Signs Last Vital Signs Temp Pulse Resp BP Pulse Ox 98.0 F 99 H 15 149/79 100 03/29/19 19:25 03/29/19 19:25 03/29/19 19:25 03/29/19 19:25 03/29/19 19:25 - Physical Exam General Appearance: Yes: Nourished, Appropriately Dressed. No: Apparent Distress, Intoxicated HEENT: positive: EOMI, CHAN, Normal ENT Inspection, Normal Voice, Symmetrical, TMs Normal, Pharynx Normal, Hearing Grossly Normal. negative: Pale Conjunctivae , Scleral Icterus (R), Scleral Icterus (L), Muffled/Hoarse voice, Pharyngeal Erythema, Tonsillar Exudate, Tonsillar Erythema, Nasal Congestion, Rhinorrhea, Excessive drooling Neck: positive: Trachea midline, Supple. negative: Tender, Lymphadenopathy (R) , Lymphadenopathy (L), Tender lateral, Tender midline Respiratory/Chest: positive: Lungs Clear, Normal Breath Sounds. negative: Chest Tender, Respiratory Distress, Accessory Muscle Use, Paradoxal Breathing, Crackles, Rhonchi, Stridor, Wheezing Cardiovascular: positive: Regular Rate, S1, S2, Irregularly Irregular. negative : Systolic Murmur Gastrointestinal/Abdominal: positive: Normal Bowel Sounds, Tender (RUQ and epigastric region with palpation), Flat, Soft. negative: Distended, Guarding, Rebound Lymphatic: negative: Adenopathy Musculoskeletal: positive: Normal Inspection. negative: CVA Tenderness, Vertebral Tenderness Extremity: positive: Normal Capillary Refill, Normal Inspection, Normal Range of Motion. negative: Tender, Swelling, Calf Tenderness Integumentary: positive: Normal Color, Dry, Warm. negative: Swelling, Ecchymosis Neurologic: positive: food assembler II-XII NML intact, Alert, Normal Mood/Affect ED Treatment Course - LABORATORY CBC & Chemistry Diagram: 04/01/19 13:00 04/01/19 16:00 - ADDITIONAL ORDERS Additional order review: Laboratory Results 03/29/19 03/29/19 03/29/19 17:40 17:40 17:40 Sodium 131 L Potassium 5.3 H Chloride 90 L Carbon Dioxide 34 H Anion Gap 6 L BUN 33.3 H Creatinine 5.0 H Est GFR (CKD-EPI)AfAm 8.32 Est GFR (CKD-EPI)NonAf 7.18 Random Glucose 155 H Lactic Acid 1.1 Calcium 9.9 Magnesium 2.0 Total Bilirubin 0.7 AST 36 ALT 19 Alkaline Phosphatase 92 Total Protein 7.2 Albumin 3.6 Lipase 141 03/29/19 17:40 RBC 3.85 MCV 83.5 MCHC 32.5 RDW 18.4 H MPV 9.4 Neutrophils % 84.8 H Lymphocytes % 6.3 L D Monocytes % 8.5 Eosinophils % 0.2 Basophils % 0.2 Medical Decision Making - Medical Decision Making 88 yo F with a hx of ESRD (Friday, , and Friday), COPD (on 2L NC at home), CHF, DM, HTN, HLD, afib (on eliquis), anemia, and hx of repair of left inguinal incarcerated hernia and SBO (11/2018) presents with 3 days of abdominal pain with associated nausea and vomiting. Initial vitals; Initial Vital Signs Temp Pulse Resp BP Pulse Ox 98.1 F 94 H 16 162/68 95 03/29/19 17:00 03/29/19 17:00 03/29/19 17:00 03/29/19 17:00 03/29/19 17:00 Work up: patient presents with RUQ and epigastric pain in the setting of multiple vomiting episodes with a hx of multiple surgical interventions in the abdomen including a hx of SBO. ddx: pancreatitis vs nephrolithiasis vs pyelonephritis vs UTI vs cholelithiasis vs cholecystitis vs gastritis vs colitis vs duoedenitis vs gastroenteritis vs ACS vs PNA vs mesenteric ischemia Laboratory Tests 03/29/19 03/29/19 03/29/19 17:40 17:40 17:40 WBC 15.4 H RBC 3.85 Hgb 10.5 L Hct 32.1 L MCV 83.5 MCH 27.2 MCHC 32.5 RDW 18.4 H Plt Count 417 D MPV 9.4 Absolute Neuts (auto) 13.0 H Neutrophils % 84.8 H Lymphocytes % 6.3 L D Monocytes % 8.5 Eosinophils % 0.2 Basophils % 0.2 Nucleated RBC % 0 Sodium 131 L Potassium 5.3 H Chloride 90 L Carbon Dioxide 34 H Anion Gap 6 L BUN 33.3 H Creatinine 5.0 H Est GFR (CKD-EPI)AfAm 8.32 Est GFR (CKD-EPI)NonAf 7.18 Random Glucose 155 H Lactic Acid 1.1 Calcium 9.9 Magnesium Total Bilirubin 0.7 AST 36 ALT 19 Alkaline Phosphatase 92 Troponin I < 0.02 Total Protein 7.2 Albumin 3.6 Lipase 03/29/19 17:40 WBC RBC Hgb Hct MCV MCH MCHC RDW Plt Count MPV Absolute Neuts (auto) Neutrophils % Lymphocytes % Monocytes % Eosinophils % Basophils % Nucleated RBC % Sodium Potassium Chloride Carbon Dioxide Anion Gap BUN Creatinine Est GFR (CKD-EPI)AfAm Est GFR (CKD-EPI)NonAf Random Glucose Lactic Acid Calcium Magnesium 2.0 Total Bilirubin AST ALT Alkaline Phosphatase Troponin I Total Protein Albumin Lipase 141 lipase wnl troponin wnl leukocytosis present mild hyponatremia with glucose correction EKG: NSR within ventricular rate of 99 bpm. QRS is 82 ms. QTc is [address] elevations or depressions. T wave peaking in V3 V4. No TWI. CT abdomen and pelvis: large amount of stool is present within the colon: evidence of dilatation of the small bowel loops with possible transition point in the left internal hernia. No other acute processes identified. Dr. Alexandre was contacted (surgery [employer] sales consultant). Due to the patient's prior surgery by Dr. Waggoner, she stated it would be more appropriate for the patient to be followed by Dr. Waggoner. Dr. Waggoner was contacted and made aware of the patient. No NG tube needed. Patient to be admitted for SBO Head CT negative for acute process. Discharge - Discharge Information Problems reviewed: Yes Clinical Impression/Diagnosis: Vomiting, SBO (small bowel obstruction) Condition: Stable - Follow up/Referral - Patient Discharge Instructions - Post Discharge Activity
[2019-03-29] MEDS ORDERED: FAMOTIDINE 20 MG/50 ML IVPB 20 MG/50 ML MG IVPB ONE ×2 (20:24→21:27)
[2019-03-29] MEDS ORDERED: ONDANSETRON 4 MG/2 ML VIAL IVPUSH ONE (20:24)
[2019-03-29] MEDS ORDERED: ACETAMINOPHEN 1000 MG/100 ML VIAL (NON FORMULARY) IVPB ONE (20:24)
[2019-03-29] MEDS ORDERED: ACETAMINOPHEN INJECTION 100 ML IVPB ONE (21:26)
[2019-03-29] MEDS ORDERED: ONDANSETRON 4 MG/2 ML VIAL ONE (21:27)
--- NOTE | 2019-03-30 01:08 | PN ---
Teaching Attending Note Name of Resident: Mayco Michael ATTENDING PHYSICIAN STATEMENT I saw and evaluated the patient. I reviewed the resident's note and discussed the case with the resident. I agree with the resident's findings and plan as documented. SUBJECTIVE: 88 year old woman with a PMH of ESRD on hemodialysis (TThSa), COPD (on home O2) , Asthma, CHF, Thrombocytopenia, NIDDM, HTN, HLD, Afib, Craniotomy, Anemia, GERD , Left incarcerated hernia and SBO s/p repair (11/2018), Was brought into hospital for abdominal pain. OBJECTIVE: Last Vital Signs Temp Pulse Resp BP Pulse Ox 98.0 F 99 H 15 149/79 100 03/29/19 19:25 03/29/19 19:25 03/29/19 19:25 03/29/19 19:25 03/29/19 19:25 GENERAL: Well developed, well nourished. Awake and alert. No acute distress , Nontoxic- appearing, elderly, frail HEENT: Normocephalic, atraumatic. PERRLA, EOMI. No conjunctival pallor. Sclera are non- icteric. Moist mucous membranes. Oropharynx is clear. NECK: Supple. Full ROM. No JVD. Carotid pulses 2+ and symmetric, without bruits. No thyromegaly. No lymphadenopathy. CARDIOVASCULAR: Regular rate and rhythm. No murmurs, rubs, or gallops. Distal pulses are 2+ and symmetric. PULMONARY: No evidence of respiratory distress. Lungs clear to auscultation bilaterally. No wheezing, rales or rhonchi. ABDOMINAL: Soft. Non-tender. Non-distended. No rebound or guarding. No organomegaly. Normoactive bowel sounds. MUSCULOSKELETAL Normal range of motion at all joints. No bony deformities or tenderness. No CVA tenderness. EXTREMITIES: No cyanosis. No clubbing. No edema. No calf tenderness. SKIN: Warm and dry. Normal capillary refill. No rashes. No jaundice. Abnormal Lab Results 03/29/19 03/29/19 17:40 17:40 WBC 15.4 H Hgb 10.5 L Hct 32.1 L RDW 18.4 H Absolute Neuts (auto) 13.0 H Neutrophils % 84.8 H Lymphocytes % 6.3 L D Sodium 131 L Potassium 5.3 H Chloride 90 L Carbon Dioxide 34 H Anion Gap 6 L BUN 33.3 H Creatinine 5.0 H Random Glucose [address] of abdomen pelvis performed without IV contrast. Dilatation of small bowel to the level of left inguinal hernia compatible small bowel obstruction. There is wall thickening of the bowel within the hernia concerning for strangulation/ ischemia. ASSESSMENT AND PLAN: #Possible small bowel obstruction, Possible strangulation of bowel within the Left inguinal hernia. Lactate was normal. Dr. Waggoner was consulted from the emergency room. N.p.o. Surgery consult 2 with intermittent suction Morphine IV as needed for pain control Zofran IV as needed if nausea or vomiting Avoid IV fluid hydration as patient is end-stage renal disease #ESRD on hemodialysis (TThSa) Nephrology consultation for hemodialysis #COPD/Asthma (on home O2) Continue with Nasal cannula #Anemiasuspect is secondary to chronic disease #Atrial fibrillationrate is controlled Continue with Eliquis, beta-jens #Diabetes mellitus NovoLog sliding scale Diabetic/renal diet #Hypertension Continue with beta-jens, Hydralazine #Dyslipidemia Continue with atorvastatin
[2019-03-30] MEDS ORDERED: SODIUM CHLORIDE 1,000 ML IV SCH (02:15)
[2019-03-30] MEDS ORDERED: ALBUTEROL SO4 0.083% IH SOL 2.5 MG/3 ML VIAL.NEB. NEB PRN (03:08)
--- NOTE | 2019-03-30 03:15 | HP ---
CHIEF COMPLAINT: abdominal pain, nausea, vomiting PCP: Dr. Reid Marrufo HISTORY OF PRESENT ILLNESS: Araceli Crouch is an 88 year old female with a past medical history of ESRD (T,Th, Sat), COPD (on 2L NC), anemia, asthma, CHF, DM, GERD, HTN, HLD, afib (on Eliquis ), L incarcerated hernia and SBO s/p repair (11/2018) presents with a 2-3 days history of abdominal pain, nausea, vomiting. Family member at the bedside assisted with history taking. The patient had been having increasing abdominal pain located mainly in the epigastric and RUQ with no radiation associated with nausea and NBNB vomiting over 3 days. She denied any new food consumption, and endorsed poor appetite. Patient and family member endorsed normal bowel movements with the most recent occurring on the morning of admission. Denied hematochezia, melena, hematemesis. Denied fever, chills, chest pain, palpitations, sob increased from baseline, urinary symptoms of dysusia, frequency, urgency, hesitancy. Denied increased leg edema. Denied sick contacts , recent travel. Most recent abdominal surgery in November 2018. ER course was notable for: (1) O2 sat 100 on 2L NC (2) WBC 15.4 with left shift, Na 131 (132 corrected), K 5.3, BUN 33.9, CRE 5.0, GLU 155 (3) Head CT with no acute intracranial pathology, nonspecific white matter changes, microvascular ischemic disease, bilateral propotosis (4) Abd CT noting IMPRESSION: Limited evaluation of solid organs and vasculature without IV contrast. Dilation of small bowel to the level of the left inguinal hernia compatible with small bowel obstruction. There is wall thickening of the bowel within the hernia concerning for strangulation/ischemia. Interval development of a few nodular peribronchial densities in the bilateral lower lobes which may be related to acute infectious or inflammatory process versus aspiration. Large stool burden within the ascending colon and transverse colon suggesting constipation. Recent Travel: denies PAST MEDICAL HISTORY: as above PAST SURGICAL HISTORY: Open skull surgery for subdural hematomas 2/2 fall x10 years ago L hernia repair Social History: Smoking: former smoker Alcohol: alcohol Drugs: alcohol Allergies egg Adverse Reaction (Verified 03/29/19 18:07) Vomiting HOME MEDICATIONS: Home Medications Medication Instructions Recorded Apixaban [Eliquis -] 2.5 mg PO BID tablet 06/13/18 Isosorbide Mononitrate [Imdur -] 30 mg PO DAILY tab.sr.24h 06/13/18 Sevelamer Carbonate [Renvela -] 800 mg PO TIDCM tab 06/13/18 Alendronate Sodium [Binosto] 70 mg PO WEEKLY 11/05/18 Atorvastatin Ca [Lipitor] 20 mg PO HS 11/05/18 Esomeprazole Magnesium 20 mg PO DAILY 11/05/18 Fluticasone/Umeclidin/Vilanter 1 each IH DAILY 11/05/18 [Treleeliot Ellipta 100-62.5-25] Insulin Glargine,Hum.rec.anlog 10 unit SQ DAILY 11/05/18 [Toucelia Solostar] Metoprolol Succinate [Toprol XL -] 100 mg PO DAILY 11/05/18 Ondansetron [Zofran *Odt*] 4 mg SL DAILY 11/05/18 Ranolazine [Ranolazine ER] 500 mg PO BID 11/05/18 Albuterol 0.083% Nebulizer Amelia 1 amp NEB Q6H PRN amp 03/16/19 [Ventolin 0.083% Nebulizer Soln -] Calcium Acetate 2 tab PO TID 03/30/19 Hydralazine HCl 100 mg PO BID 03/30/19 Telmisartan/Amlodipine 1 tab PO DAILY 03/30/19 [Telmisartan-Amlodipine 80-10] REVIEW OF SYSTEMS CONSTITUTIONAL: loss of appetite Absent: fever, chills, diaphoresis, generalized weakness, malaise, weight change HEENT: Absent: rhinorrhea, nasal congestion, throat pain, throat swelling, difficulty swallowing CARDIOVASCULAR: Absent: chest pain, syncope, palpitations, irregular heart rate, lightheadedness , peripheral edema RESPIRATORY: Absent: cough, shortness of breath, dyspnea with exertion, orthopnea, wheezing GASTROINTESTINAL: abdominal pain, nausea, vomiting Absent: abdominal distension, diarrhea, constipation, melena, hematochezia GENITOURINARY: Absent: dysuria, frequency, urgency, hesitancy, hematuria, flank pain, MUSCULOSKELETAL: Absent: myalgia, arthralgia, joint swelling, back pain, neck pain SKIN: Absent: rash, itching, pallor HEMATOLOGIC/IMMUNOLOGIC: Absent: easy bleeding, easy bruising, lymphadenopathy, frequent infections ENDOCRINE: Absent: unexplained weight gain, unexplained weight loss, heat intolerance, cold intolerance NEUROLOGIC: Absent: headache, focal weakness or paresthesias, dizziness, unsteady gait, seizure, mental status changes PSYCHIATRIC: Absent: anxiety, depression, suicidal or homicidal ideation, hallucinations. PHYSICAL EXAMINATION Vital Signs - 24 hr 03/29/19 03/29/19 17:00 19:25 Temperature 98.1 F 98.0 F Pulse Rate 94 H Pulse Rate [ 99 H Left Radial] Respiratory 16 15 Rate Blood Pressure 162/68 Blood Pressure 149/79 [Right Arm] O2 Sat by Pulse 95 100 Oximetry (%) GENERAL: Awake, alert, and fully oriented, in mild acute distress. Creole speaking HEAD: Normal with no signs of trauma. EYES: Pupils equal, round and reactive to light, extraocular movements intact, sclera anicteric, conjunctiva clear. EARS, NOSE, THROAT: Oropharynx clear without exudates. Dry mucous membranes. NECK: Normal range of motion, supple without lymphadenopathy, JVD. LUNGS: Breath sounds equal, minor crackles heard in the RLL. No auscultated wheezes. No accessory muscle use. HEART: Normal rate and irregular rhythm, normal S1 and S2 without murmur, rub. ABDOMEN: Soft, tender to palpation in the epigastric and RUQ, not distended, normoactive bowel sounds, no guarding, no rebound, no masses. Tympanic to percussion in the RUQ and LUQ, duller in the RLQ and LLQ. MUSCULOSKELETAL: Normal range of motion at all joints. No bony deformities or tenderness. UPPER EXTREMITIES: 2+ pulses, warm, well-perfused. No cyanosis. No clubbing. No peripheral edema. LOWER EXTREMITIES: 2+ pulses, warm, well-perfused. No calf tenderness. No peripheral edema. NEUROLOGICAL: Cranial nerves II-XII intact. 5/5 muscle strength upper and lower extremities. PSYCHIATRIC: Cooperative. Good eye contact. Appropriate mood and affect. SKIN: Warm, dry, normal turgor, no rashes or lesions noted, normal capillary refill. Laboratory Results - last 24 hr 03/29/19 03/29/19 03/29/19 17:40 17:40 17:40 WBC 15.4 H RBC 3.85 Hgb 10.5 L Hct 32.1 L MCV 83.5 MCH 27.2 MCHC 32.5 RDW 18.4 H Plt Count 417 D MPV 9.4 Absolute Neuts (auto) 13.0 H Neutrophils % 84.8 H Lymphocytes % 6.3 L D Monocytes % 8.5 Eosinophils % 0.2 Basophils % 0.2 Nucleated RBC % 0 Sodium 131 L Potassium 5.3 H Chloride 90 L Carbon Dioxide 34 H Anion Gap 6 L BUN 33.3 H Creatinine 5.0 H Est GFR (CKD-EPI)AfAm 8.32 Est GFR (CKD-EPI)NonAf 7.18 Random Glucose 155 H Lactic Acid 1.1 Calcium 9.9 Magnesium Total Bilirubin 0.7 AST 36 ALT 19 Alkaline Phosphatase 92 Troponin I < 0.02 Total Protein 7.2 Albumin 3.6 Lipase 03/29/19 03/30/19 17:40 01:25 WBC RBC Hgb Hct MCV MCH MCHC RDW Plt Count MPV Absolute Neuts (auto) Neutrophils % Lymphocytes % Monocytes % Eosinophils % Basophils % Nucleated RBC % Sodium Potassium Chloride Carbon Dioxide Anion Gap BUN Creatinine Est GFR (CKD-EPI)AfAm Est GFR (CKD-EPI)NonAf Random Glucose Lactic Acid Calcium Magnesium 2.0 Total Bilirubin AST ALT Alkaline Phosphatase Troponin I < 0.02 Total Protein Albumin Lipase 141 EKG--> NSR, LVH, T wave inversion in aVL, no ST segment abnormalities, Qtc 444. Unchanged from previous admission. ASSESSMENT/PLAN: Araceli Crouch is an 88 year old female with a past medical history of ESRD (T,Th, Sat), COPD (on 2L NC), anemia, asthma, CHF, DM, GERD, HTN, HLD, afib (on Eliquis ), L incarcerated hernia and SBO s/p repair admitted for small bowel obstruction. Small Bowel Obstruction - in the setting of previous SBO and abdominal surgery - CT scan as above - surgery consulted, Dr. Waggoner, and will see patient in the morning, not recommending NG tube - NPO pending surgical procedures - held Eliquis - monitor WBC and abdominal exam - avoid IV fluids in ESRD ESRD - nephrology consulted, will receive dialysis tomorrow - continue to monitor electrolytes Anemia - likely secondary to ESRD COPD - continue home Trelelgy and albuterol prn Afib - hold Eliquis for potential surgical procedure - continue home hydralazine and metoprolol DM - BGM - ISS - home glargine 10 units daily HTN - home amlodipine - on combination medication telmisartan but in ESRD, can consider alternative, medication not noted to be present on last discharge HLD - continue home Lipitor Noted Propotosis on CT scan - not well noted on physical exam - last TSH in March 2019 within normal limits DVT PPx - SCDs - avoid chemical prophylaxis until cleared by surgery FEN - avoid IVF in setting of ESRD - continue to monitor electrolytes and replete as necessary, hyperkalemia, hyponatremia noted, will be having dialysis tomorrow - NPO pending potential surgical intervention Dispo - admit to Med-surg Visit type - Emergency Visit Emergency Visit: Yes ED Registration Date: 03/29/19 Care time: The patient presented to the Emergency Department on the above date and was hospitalized for further evaluation of their emergent condition. - New Patient This patient is new to me today: Yes Date on this admission: 03/30/19 - Critical Care Critical Care patient: No
[2019-03-30] MEDS ORDERED: ACETAMINOPHEN 1000 MG/100 ML VIAL (NON FORMULARY) IVPB PRN (03:27)
[2019-03-30 03:40] LABS: ANION GAP 7 MMOL/L (8-16); BLOOD UREA NITROGEN 40.2 mg/dL (7-18); CALCIUM 9.6 mg/dL (8.5-10.1); CHLORIDE 91 mmol/L (98-107); CO2 36 mmol/L (21-32); CREATININE 5.4 mg/dL (0.55-1.3); GLUCOSE,RANDOM 135 mg/dL (74-106); POTASSIUM 5.2 mmol/L (3.5-5.1); SODIUM 133 mmol/L (136-145)
[2019-03-30] MEDS: INSULIN SLIDING SCALE (NOVOLOG) 1 VIAL SQ SCH ×4 (03:43→21:05)
[2019-03-30] MEDS ORDERED: ONDANSETRON 4 MG/2 ML VIAL IVPUSH PRN (05:00)
[2019-03-30] MEDS ORDERED: CALCIUM ACETATE PO SCH (06:00)
[2019-03-30 06:35] LABS: BASO % 0.3 % (0-2.0); EOS % 0.2 % (0-4.5); HEMOGLOBIN 9.3 GM/dL (10.7-15.3); LYMPH % 8.4 % (8-40); MCH 27.7 pg (25.7-33.7); MCHC 33.2 g/dl (32.0-36.0); MEAN CELL VOLUME 83.3 fl (80-96); MEAN PLT VOLUME 9.1 fl (7.5-11.1); MONO % 5.6 % (3.8-10.2); NEUT % 85.5 % (42.8-82.8); PLATELET COUNT 326 K/MM3 (134-434); RBC 3.36 M/mm3 (3.60-5.2); RDW 18.2 % (11.6-15.6); WHITE BLOOD COUNT 9.2 K/mm3 (4.0-10.0)
[2019-03-30 06:45] LABS: PROTHROMBIN TIME (PATIENT) 11.8 SEC (9.7-13.0)
[2019-03-30 06:48] LABS: ACTIVATED PTT 30.4 SECONDS (25.2-36.5)
[2019-03-30 06:53] LABS: BLOOD UREA NITROGEN 41.1 mg/dL (7-18); CALCIUM 9.4 mg/dL (8.5-10.1); CREATININE 5.6 mg/dL (0.55-1.3); MAGNESIUM 1.9 mg/dL (1.8-2.4); PHOSPHOROUS 3.7 mg/dL (2.5-4.9); POTASSIUM 4.9 mmol/L (3.5-5.1)
--- NOTE | 2019-03-30 07:47 | CONSULT ---
- Consultation REQUESTING PROVIDER: CONSULT REQUEST: We have been asked to surgically evaluate this patient for SBO (2/2 inguinal hernia?) PCP: Shoshana Salas MD HPI: Called to unruly 88yo female w/ PMHx as noted below. Presents to [facility] ED w/ c /o abd pain for the past three days. Associated with n/v (nbnb). Patient well known to surgery service as we operated on her 11/09/2018 for bilateral inguinal hernia repair with Parietex [employer] Mesh (Lucas Waggoner). Patient recently dc'd from hospital on 03/16/2019 (admitted with SOB). Currently, patient sitting up in bed. Generalized weakness, malaise, loss of appetite secondary to poor PO intake. Last bm was reported on day of hospital admission ( prior too coming to hospital). Denies CP, palpitations, SOB or NÚÑEZ. Denies melena or hematochezia. Denies hematuria, dysuria or flank pain. CT Scan: SB dilation to the level of the left inguinal hernia compatible with sbo. There is wall thickening of the bowel within the hernia concerning for strangulation/ischemia. Large stool burden within the ascending colon and transverse colon suggesting constipation. PMHx: ESRD (T,Th,Sat), COPD (on 2L NC), anemia, asthma, CHF, DM, GERD, HTN, HLD , afib (on Eliquis) PSHx 11/09/18 Repair b/l inguinal hernias w/Parietex [employer] mesh (Edilson) Craniotomy - subdural hematoma 2/2 fall x10 years ago AV Fistula/Graft Home Meds Apixaban [Eliquis -] 2.5 mg PO BID tablet Isosorbide Mononitrate [Imdur -] 30 mg PO DAILY tab.sr.24h Sevelamer Carbonate [Renvela -] 800 mg PO TIDCM tab Alendronate Sodium [Binosto] 70 mg PO DAILY Atorvastatin Ca [Lipitor] 20 mg PO HS Esomeprazole Magnesium 20 mg PO DAILY Fluticasone/Umeclidin/Vilanter [Trelegy Ellipta 100-62.5-25] 1 each IH DAILY Insulin Glargine,Hum.rec.anlog [Alejandro Spencer] 10 unit SQ DAILY Metoprolol Succinate [Toprol XL -] 100 mg PO DAILY Ondansetron [Zofran *Odt*] 4 mg SL DAILY Ranolazine [Ranolazine ER] 500 mg PO BID Allergies Egg ROS CONSTITUTIONAL: Absent: chills, diaphoresis, weight change CARDIOVASCULAR: Absent: syncope, palpitations, irregular heart rate, lightheadedness RESPIRATORY: Absent: cough, wheezing, stridor, hemoptysis GASTROINTESTINAL:Absent: see hpi GENITOURINARY: Absent: frequency, urgency, hesitancy MUSCULOSKELETAL: Absent: myalgia, arthralgia, joint swelling, back pain, neck pain SKIN: Absent: rash, itching, pallor HEMATOLOGIC/IMMUNOLOGIC: Absent: easy bleeding, easy bruising, lymphadenopathy NEUROLOGIC: Absent: headache, focal weakness, paresthesias, dizziness, unsteady gait, seizure, mental status changes, bladder or bowel incontinence PSYCHIATRIC: Absent: anxiety, depression, suicidal or homicidal ideation, hallucinations. PHYSICAL EXAM: GENERAL: Awake, alert, in no acute distress. HEAD: Normal with no signs of trauma. EYES: PERRL, sclera anicteric, conjunctiva clear. NECK: Normal ROM, supple without lymphadenopathy, JVD, or masses. LUNGS: CTA HEART: RRR ABDOMEN: Softly distended, hypoactive bowel sounds. mild RLQ ttp. voluntary guarding. no rebound or rigidity. bilat inguinal scars well healed. No palpable hernia appreciated RECATL: Declined. MUSCULOSKELETAL: No CVA tenderness. UE: 2+ pulses, warm, well-perfused. No cyanosis. Cap refill <2 seconds. No peripheral edema. LE: 2+ pulses, warm, well-perfused. No calf tenderness. No peripheral edema. NEURO: Normal speech, gait not observed. PSYCH: Cooperative. Good eye contact. Appropriate mood and affect. Last Vital Signs Temp Pulse Resp BP Pulse Ox 98.0 F 95 H 20 145/73 99 03/29/19 19:25 03/30/19 02:00 03/30/19 02:00 03/30/19 02:00 03/30/19 02:00 CBC, BMP 03/30/19 05:30 03/30/19 05:30 INR, PTT INR 1.00 (0.83-1.09) 03/30/19 05:30 Hepatic Panel Total Bilirubin 0.7 mg/dL (0.2-1) 03/29/19 17:40 AST 36 U/L (15-37) 03/29/19 17:40 ALT 19 U/L (13-61) 03/29/19 17:40 Alkaline Phosphatase 92 U/L (45-117) 03/29/19 17:40 Albumin 3.6 g/dl (3.4-5.0) 03/29/19 17:40 Problem List - Problems (1) Abdominal pain Assessment/Plan: 88 yo female with ABD pain. ABD CT scan performed but not offically read yet shows ? SBO at level of LEFT ingunial hernia containing SB content. She is afebrile. Non-toxic appearing. No leukocytosis. NPO IVF GI PPx DVT PPx Serial ABD exams Serial AXR Avoid narcotics for pain management HD per her schedule f/u Official radiology report NGT if becomes n/v Surgery Team to cont following Above plan discussed with Dr. Waggoner and agrees. Code(s): R10.9 - UNSPECIFIED ABDOMINAL PAIN (2) COPD (chronic obstructive pulmonary disease) Code(s): J44.9 - CHRONIC OBSTRUCTIVE PULMONARY DISEASE, UNSPECIFIED Qualifiers: COPD type: unspecified COPD Qualified Code(s): J44.9 - Chronic obstructive pulmonary disease, unspecified (3) ESRD (end stage renal disease) on dialysis Code(s): N18.6 - END STAGE RENAL DISEASE; Z99.2 - DEPENDENCE ON RENAL DIALYSIS (4) Gastritis Code(s): K29.70 - GASTRITIS, UNSPECIFIED, WITHOUT BLEEDING (5) Thrombocytopenia Code(s): D69.6 - THROMBOCYTOPENIA, UNSPECIFIED (6) COPD exacerbation Code(s): J44.1 - CHRONIC OBSTRUCTIVE PULMONARY DISEASE W (ACUTE) EXACERBATION (7) Diabetes Code(s): E11.9 - TYPE 2 DIABETES MELLITUS WITHOUT COMPLICATIONS Qualifiers: Diabetes mellitus type: type 2 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 chcf use Diabetes mellitus complication status: with kidney complications Diabetes mellitus complication detail: with chronic kidney disease Chronic kidney disease stage: on chronic dialysis Qualified Code(s) : E11.22 - Type 2 diabetes mellitus with diabetic chronic kidney disease; N18.6 - End stage renal disease; Z99.2 - Dependence on renal dialysis (8) Hypertension Code(s): I10 - ESSENTIAL (PRIMARY) HYPERTENSION Qualifiers: Hypertension type: essential hypertension Qualified Code(s): I10 - Essential (primary) hypertension Visit type - Case Type Case Type: ED Admission - Emergency Emergency Visit: Yes ED Registration Date: 03/29/19 Care time: The patient presented to the Emergency Department on the above date and was hospitalized for further evaluation of their emergent condition. - New patient This patient is new to me today: Yes Date on this admission: 03/30/19
[2019-03-30] MEDS ORDERED: SODIUM CHLORIDE 250 ML IV PRN ×2 (09:11→14:18)
--- NOTE | 2019-03-30 09:18 | PN ---
Teaching Attending Note Name of Resident: Lyudmila Rasmussen ATTENDING PHYSICIAN STATEMENT I saw and evaluated the patient. I reviewed the resident's note and discussed the case with the resident. I agree with the resident's findings and plan as documented. SUBJECTIVE: Still complaint of abdominal pain denies nausea vomiting OBJECTIVE: Vital Signs Period Temp Pulse Resp BP Sys/Betancourt Pulse Ox Last 24 Hr 98.0 F-98.1 F 90-99 15-20 145-162/68-80 95-100 General: Elderly female comfortable, not in distress HEENT; mucous membranes moist, no anemia, no jaundice, PERRLA, no nystagmus Neck: No JVD, supple, no bruit, thyroid palpably normal, normal carotid pulsations. Chest: Nontender, bilateral basal rales. 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 There is wall thickening of the bowel within the hernia concerning for strangulation/ ischemia. Large stool burden within the ascending colon and transverse colon suggesting constipation. Active Medications Acetaminophen (Ofirmev Injection -) 1,000 mg IVPB Q6H PRN PRN Reason: PAIN LEVEL 6-10 Stop: 03/31/19 03:27 Albuterol Sulfate (Ventolin 0.083% Nebulizer Soln -) 1 amp NEB RQID PRN PRN Reason: SHORT OF BREATH/WHEEZING Amlodipine Besylate (Norvasc -) 10 mg PO DAILY [facility] Atorvastatin Calcium (Lipitor -) 20 mg PO HS [facility] Budesonide/Formoterol Fumarate (Symbicort 80/4.5mcg -) 2 puff IH BID [facility] Calcium Acetate (Phoslo -) 1,334 mg PO TIDCM [facility] Epoetin Nnamdi (Epogen -) 6,000 unit IVPUSH ONCE ONE Stop: 03/30/19 09:13 Hydralazine HCl (Apresoline -) 100 mg PO BID [facility] Sodium Chloride (Normal Saline -) 250 mls @ 3,000 mls/hr IV PRN PRN PRN Reason: Hypotension during Dialysis Stop: 03/31/19 09:11 Sodium Chloride (Normal Saline -) 250 mls @ 3,000 mls/hr IV PRN PRN PRN Reason: Hypotension during Dialysis Stop: 03/31/19 09:12 Insulin Aspart (Novolog Vial Sliding Scale -) 1 vial SQ Q6H [facility]; Protocol Last Admin: 03/30/19 09:00 Dose: Not Given Insulin Detemir (Levemir Vial) 10 units SQ DAILY [facility] Isosorbide Mononitrate (Imdur -) 30 mg PO DAILY [facility] Metoprolol Succinate (Toprol Xl -) 100 mg PO DAILY [facility] Ondansetron HCl (Zofran Injection) 4 mg IVPUSH Q8H PRN PRN Reason: NAUSEA AND/OR VOMITING Pantoprazole Sodium (Protonix -) 20 mg PO DAILY [facility] Ranolazine (Ranexa -) 500 mg PO BID [facility] Sevelamer Carbonate (Renvela -) 800 mg PO TIDCM [facility] Tiotropium Nenzel (Spiriva Respimat) 2 puff IH DAILY [facility] ASSESSMENT AND PLAN:88 year old female with a past medical history of ESRD (T,Th ,Sat), COPD (on 2L NC), anemia, asthma, CHF, type II DM, GERD, HTN, HLD, afib ( on Eliquis), L incarcerated hernia and SBO s/p repair (11/2018) presents with a 2-3 days history of abdominal pain, nausea, vomiting. CT abdomen shows small bowel obstruction: Impression: Small bowel obstruction Problem List - Problems (1) Small bowel obstruction Assessment/Plan: Patient presents with abdominal pain for 3 days with nausea, vomiting, multiple hospitalization for similar presentation, history of bilateral inguinal hernia repair In the ER CT abdomen shows small bowel dilatation at the level of left inguinal hernia compatible with SBO with large stool burden ascending colon transfer: History of constipation questionable stimulation of hernia, evaluated by surgery recommended conservative management, NG tube if patient have vomited will continue IV hydration follow-up serial abdominal exam, KUB, urgent surgical consult if worsening of symptoms follow-up CBC BMP magnesium and lactic acid daily. Problems reviewed: Yes Code(s): K56.609 - UNSP INTESTNL OBST, UNSP TO PARTIAL VERSUS COMPLETE OBST (2) History of end stage renal disease Assessment/Plan: On hemodialysis continue same Problems reviewed: Yes Code(s): Z87.448 - PERSONAL HISTORY OF OTHER DISEASES OF URINARY SYSTEM (3) Atrial fibrillation Assessment/Plan: Rate controlled at present in normal sinus rhythm on hold of apixaban will CVs to heparin infusion if indicated follow-up cardiology recommendations Problems reviewed: Yes Code(s): I48.91 - UNSPECIFIED ATRIAL FIBRILLATION Qualifiers: Atrial fibrillation type: paroxysmal Qualified Code(s): I48.0 - Paroxysmal atrial fibrillation (4) Pulmonary hypertension Assessment/Plan: Chronic Problems reviewed: Yes Code(s): I27.20 - PULMONARY HYPERTENSION, UNSPECIFIED (5) Diabetes Assessment/Plan: Type 2 diabetes continue Levemir 10 units with correction dose insulin Problems reviewed: Yes Code(s): E11.9 - TYPE 2 DIABETES MELLITUS WITHOUT COMPLICATIONS Qualifiers: Diabetes mellitus type: type 2 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: without correction use Diabetes mellitus complication status: with kidney complications Diabetes mellitus complication detail: with chronic kidney disease Chronic kidney disease stage: on chronic dialysis Qualified Code(s) : E11.22 - Type 2 diabetes mellitus with diabetic chronic kidney disease; N18.6 - End stage renal disease; Z99.2 - Dependence on renal dialysis (6) Hypercholesterolemia Assessment/Plan: Continue statin Problems reviewed: Yes Code(s): E78.00 - PURE HYPERCHOLESTEROLEMIA, UNSPECIFIED (7) Hypertension Assessment/Plan: Well-controlled continue all home medications Problems reviewed: Yes Code(s): I10 - ESSENTIAL (PRIMARY) HYPERTENSION Qualifiers: Hypertension type: essential hypertension Qualified Code(s): I10 - Essential (primary) hypertension (8) COPD (chronic obstructive pulmonary disease) Assessment/Plan: Stable continue DuoNeb as needed every 6 hourly,, continue Symbicort Problems reviewed: Yes Code(s): J44.9 - CHRONIC OBSTRUCTIVE PULMONARY DISEASE, UNSPECIFIED
[2019-03-30] MEDS: CALCIUM ACETATE 667 MG CAPSULE (FP) PO SCH ×3 (09:51→18:22)
[2019-03-30] MEDS: SEVELAMER CARBONATE 800 MG TAB (FP) PO SCH ×3 (09:52→18:22)
[2019-03-30] MEDS ORDERED: TELMISARTAN PO SCH (10:00)
[2019-03-30] MEDS ORDERED: AMLODIPINE PO SCH (10:00)
[2019-03-30] MEDS ORDERED: [UNRECOGNIZED DRUG - OTHER] PO SCH (10:00)
[2019-03-30] MEDS ORDERED: PATIENT'S OWN MEDICATION (NON-FORMULARY) (Insulin Glargine,Hum.Rec.Anlog [Toujeo Solostar] SQ SCH ×2 (10:00)
[2019-03-30] MEDS ORDERED: PATIENT'S OWN MEDICATION (NON-FORMULARY) (Hydralazine Hcl [Hydralazine Hcl] 100 MG) PO SCH (10:00)
[2019-03-30] MEDS: INSULIN (LEVEMIR) 100 UNITS/ML UNITS SQ SCH (10:20)
[2019-03-30] MEDS: hydrALAZINE HCL 50 MG TABLET (FP) PO SCH ×2 (10:20→21:06)
[2019-03-30] MEDS: ISOSORBIDE MONONITRATE 30 MG TAB.SR.24H (FP) PO SCH (10:20)
[2019-03-30] MEDS: BUDESONIDE/FORMETEROL FUMARATE 80/4.5 mcg INHALER IH SCH ×2 (10:21→21:06)
[2019-03-30] MEDS: TIOTROPIUM BROMIDE 2.5 MCG (SPIRIVA) RESPIMAT INHALER IH SCH (10:21)
[2019-03-30] MEDS: RANOLAZINE E.R. 500 MG TABLET (FP) PO SCH ×2 (10:25→21:06)
[2019-03-30] MEDS: PANTOPRAZOLE 20 MG TABLET PO SCH (10:25)
[2019-03-30] MEDS: amLODIPine BESYLATE 10 MG TABLET (FP) PO SCH (10:25)
--- NOTE | 2019-03-30 11:48 | PN ---
Physical Exam: SUBJECTIVE: Patient seen and examined. Says she still has abdominal pain. OBJECTIVE: Vital Signs Period Temp Pulse Resp BP Sys/Betancourt Pulse Ox Last 24 Hr 98.0 F-98.5 F 82-99 15-20 145-162/68-80 95-100 General: in NAD, laying in bed HEENT; mucous membranes moist, PERRLA Neck: No JVD, supple Chest: Nontender, bilateral basal rales. 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 , no gross motor sensory deficit Laboratory Results - last 24 hr 03/29/19 03/29/19 03/29/19 17:40 17:40 17:40 WBC 15.4 H RBC 3.85 Hgb 10.5 L Hct 32.1 L MCV 83.5 MCH 27.2 MCHC 32.5 RDW 18.4 H Plt Count 417 D MPV 9.4 Absolute Neuts (auto) 13.0 H Neutrophils % 84.8 H Lymphocytes % 6.3 L D Monocytes % 8.5 Eosinophils % 0.2 Basophils % 0.2 Nucleated RBC % 0 PT with INR INR PTT (Actin FS) Sodium 131 L Potassium 5.3 H Chloride 90 L Carbon Dioxide 34 H Anion Gap 6 L BUN 33.3 H Creatinine 5.0 H Est GFR (CKD-EPI)AfAm 8.32 Est GFR (CKD-EPI)NonAf 7.18 POC Glucometer Random Glucose 155 H Lactic Acid 1.1 Calcium 9.9 Phosphorus Magnesium Total Bilirubin 0.7 AST 36 ALT 19 Alkaline Phosphatase 92 Troponin I < 0.02 Total Protein 7.2 Albumin 3.6 Lipase 03/29/19 03/30/19 03/30/19 17:40 01:25 03:35 WBC RBC Hgb Hct MCV MCH MCHC RDW Plt Count MPV Absolute Neuts (auto) Neutrophils % Lymphocytes % Monocytes % Eosinophils % Basophils % Nucleated RBC % PT with INR INR PTT (Actin FS) Sodium 133 L Potassium 5.2 H Chloride 91 L Carbon Dioxide 36 H Anion Gap 7 L BUN 40.2 H Creatinine 5.4 H Est GFR (CKD-EPI)AfAm 7.58 Est GFR (CKD-EPI)NonAf 6.54 POC Glucometer 138 Random Glucose 135 H Lactic Acid Calcium 9.6 Phosphorus Magnesium 2.0 Total Bilirubin AST ALT Alkaline Phosphatase Troponin I < 0.02 Total Protein Albumin Lipase 141 03/30/19 03/30/19 03/30/19 05:30 05:30 05:30 WBC 9.2 RBC 3.36 L Hgb 9.3 L Hct 28.0 L MCV 83.3 MCH 27.7 MCHC 33.2 RDW 18.2 H Plt Count 326 D MPV 9.1 Absolute Neuts (auto) 7.9 Neutrophils % 85.5 H Lymphocytes % 8.4 D Monocytes % 5.6 Eosinophils % 0.2 Basophils % 0.3 Nucleated RBC % 0 PT with INR 11.80 INR 1.00 PTT (Actin FS) 30.4 Sodium 133 L Potassium 4.9 Chloride 92 L Carbon Dioxide 36 H Anion Gap 5 L BUN 41.1 H Creatinine 5.6 H Est GFR (CKD-EPI)AfAm 7.26 Est GFR (CKD-EPI)NonAf 6.26 POC Glucometer Random Glucose 128 H Lactic Acid Calcium 9.4 Phosphorus 3.7 Magnesium 1.9 Total Bilirubin AST ALT Alkaline Phosphatase Troponin I Total Protein Albumin Lipase 03/30/19 11:12 WBC RBC Hgb Hct MCV MCH MCHC RDW Plt Count MPV Absolute Neuts (auto) Neutrophils % Lymphocytes % Monocytes % Eosinophils % Basophils % Nucleated RBC % PT with INR INR PTT (Actin FS) Sodium Potassium Chloride Carbon Dioxide Anion Gap BUN Creatinine Est GFR (CKD-EPI)AfAm Est GFR (CKD-EPI)NonAf POC Glucometer 119 Random Glucose Lactic Acid Calcium Phosphorus Magnesium Total Bilirubin AST ALT Alkaline Phosphatase Troponin I Total Protein Albumin Lipase Active Medications Generic Name Dose Route Start Last Admin Trade Name Shubham PRN Reason Stop Dose Admin Acetaminophen 1,000 mg 03/30/19 03:27 Ofirmev Injection - IVPB 03/31/19 03:27 Q6H PRN PAIN LEVEL 6-10 Albuterol Sulfate 1 amp 03/30/19 03:08 Ventolin 0.083% Nebulizer Soln - NEB RQID PRN SHORT OF BREATH/WHEEZING Amlodipine Besylate 10 mg 03/30/19 10:00 03/30/19 10:25 Norvasc - PO Not Given DAILY [facility] Atorvastatin Calcium 20 mg 03/30/19 22:00 Lipitor - PO HS [facility] Budesonide/Formoterol Fumarate 2 puff 03/30/19 10:00 03/30/19 10:21 Symbicort 80/4.5mcg - IH Not Given BID [facility] Calcium Acetate 1,334 mg 03/30/19 08:00 03/30/19 11:39 Phoslo - PO Not Given TIDCM [facility] Epoetin Nnamdi 6,000 unit 03/30/19 09:12 Procrit - IVPUSH 03/30/19 09:13 ONCE ONE Hydralazine HCl 100 mg 03/30/19 10:00 03/30/19 10:20 Apresoline - PO Not Given BID [facility] Sodium Chloride 250 mls @ 3,000 mls/hr 03/30/19 09:11 Normal Saline - IV 03/31/19 09:11 PRN PRN Hypotension during Dialysis Sodium Chloride 250 mls @ 3,000 mls/hr 03/30/19 09:12 Normal Saline - IV 03/31/19 09:12 PRN PRN Hypotension during Dialysis Insulin Aspart 1 vial 03/30/19 02:15 03/30/19 09:00 Novolog Vial Sliding Scale - SQ Not Given Q6H [facility] Protocol Insulin Detemir 10 units 03/30/19 10:00 03/30/19 10:20 Levemir Vial SQ Not Given DAILY [facility] Isosorbide Mononitrate 30 mg 03/30/19 10:00 03/30/19 10:20 Imdur - PO Not Given DAILY [facility] Metoprolol Succinate 100 mg 03/30/19 10:00 03/30/19 10:22 Toprol Xl - PO Not Given DAILY [facility] Ondansetron HCl 4 mg 03/30/19 05:00 Zofran Injection IVPUSH Q8H PRN NAUSEA AND/OR VOMITING Pantoprazole Sodium 20 mg 03/30/19 10:00 03/30/19 10:25 Protonix - PO 20 mg DAILY [facility] Administration Ranolazine 500 mg 03/30/19 10:00 03/30/19 10:25 Ranexa - PO 500 mg BID [facility] Administration Sevelamer Carbonate 800 mg 03/30/19 08:00 03/30/19 11:39 Renvela - PO Not Given TIDCM [facility] Tiotropium Castine 2 puff 03/30/19 10:00 03/30/19 10:21 Spiriva Respimat IH Not Given DAILY [facility] ASSESSMENT/PLAN: Araceli Crouch is an 88 year old female with a past medical history of ESRD (T,Th, Sat), COPD (on 2L NC), anemia, asthma, CHF, DM, GERD, HTN, HLD, afib (on Eliquis ), L incarcerated hernia and SBO s/p repair admitted for small bowel obstruction. #Small Bowel Obstruction - in the setting of previous SBO and abdominal surgery -CT: SB dilation to the level of the left inguinal hernia compatible with sbo. There is wall thickening of the bowel within the hernia concerning for strangulation/ischemia. -NGT if becomes n/v -surgery on board. FU reccs -NPO -held Eliquis -serial abd exams -serial AXR #ESRD - nephrology consulted, will receive dialysis tomorrow - continue to monitor electrolytes #Constipation -CT scan: Large stool burden within the ascending colon and transverse colon suggesting constipation. -will give enema #Anemia - likely secondary to ESRD #COPD - continue home Trelelgy and albuterol prn Afib - hold Eliquis for potential surgical procedure - continue home hydralazine and metoprolol #DM - BGM - ISS - home glargine 10 units daily #HTN - home amlodipine - on combination medication telmisartan but in ESRD, can consider alternative, medication not noted to be present on last discharge #HLD - continue home Lipitor #Noted Propotosis on CT scan - not well noted on physical exam - last TSH in March 2019 within normal limits #DVT PPx - SCDs - avoid chemical prophylaxis until cleared by surgery FEN -no IV fluids -monitor -npo Visit type - Emergency Visit Emergency Visit: Yes ED Registration Date: 03/29/19 Care time: The patient presented to the Emergency Department on the above date and was hospitalized for further evaluation of their emergent condition. - New Patient This patient is new to me today: Yes Date on this admission: 03/30/19 - Critical Care Critical Care patient: No ATTENDING PHYSICIAN STATEMENT I saw and evaluated the patient. I reviewed the resident's note and discussed the case with the resident. I agree with the resident's findings and plan as documented. SUBJECTIVE: OBJECTIVE: ASSESSMENT AND PLAN:
--- NOTE | 2019-03-30 11:59 | EKG ---
Test Reason : Blood Pressure : / mmHG Vent. Rate : 099 BPM Atrial Rate : 099 BPM P-R Int : 196 ms QRS Dur : 082 ms QT Int : 346 ms P-R-T Axes : 077 066 080 degrees QTc Int : 444 ms NORMAL SINUS RHYTHM MODERATE VOLTAGE CRITERIA FOR LVH, MAY BE NORMAL VARIANT NONSPECIFIC T WAVE ABNORMALITY ABNORMAL ECG Confirmed by MD JESSICA, VIPUL ([id number]) on 03/30/2019 11:58:48 AM Referred By: Confirmed By:VIPUL LOPEZ MD
[2019-03-30] MEDS ORDERED: MINERAL OIL ENEMA 133 ML ENEMA PR ONE (12:59)
[2019-03-30] MEDS ORDERED: EPOETIN ALFA 3,000 UNIT/1 ML ML IVPUSH ONE (14:30)
[2019-03-30] MEDS ORDERED: EPOETIN ALFA-EPBX 2,000 UNIT/ML VIAL IVPUSH ONE (14:30)
[2019-03-30 18:36] VITALS: BMI 18.2
--- NOTE | 2019-03-30 19:42 | CONSULT ---
Consult Consult Specialty:: Nephrology Reason for Consultation:: ESRD - History of Present Illness Chief Complaint: abdominal pain History of Present Illness: Pt is an 88 year old female with pmhx of esrd, htn, hernia repair, and chf who presents to the ER with abdominal pain. She was found to have SBO. I was called to evaluate her as she is on HD. She is due for HD today. She denies shortness of breath. She does have appetite. 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 No: Asthma, Pulmonary Embolus, Sleep Apnea Gastrointestinal: Yes: GERD Renal/: Yes: Renal Inusuff, Hemodialysis, Renal Calculi (maybe- she had flank pain) ...: No Endocrine: Yes: Diabetes Mellitus - Past Surgical History Past Surgical History: Yes: AV Fistula/Graft - Alcohol/Substance Use Hx Alcohol Use: No - Smoking History Smoking history: Never smoked Have you smoked in the past 12 months: No Aproximately how many cigarettes per day: 0 If you are a former smoker, when did you quit?: 50 YEARS - Social History Usual Living Arrangement: With Child Home Medications - Allergies Allergies/Adverse Reactions: Allergies Allergy/AdvReac Type Severity Reaction Status Date / Time egg AdvReac Vomiting Verified 03/29/19 18:07 - Home Medications Home Medications: Ambulatory Orders Apixaban [Eliquis -] 2.5 mg PO BID tablet 06/13/18 Isosorbide Mononitrate [Imdur -] 30 mg PO DAILY tab.sr.24h 06/13/18 Sevelamer Carbonate [Renvela -] 800 mg PO TIDCM tab 06/13/18 Alendronate Sodium [Binosto] 70 mg PO WEEKLY 11/05/18 Atorvastatin Ca [Lipitor] 20 mg PO HS 11/05/18 Esomeprazole Magnesium 20 mg PO DAILY 11/05/18 Fluticasone/Umeclidin/Vilanter [Trelegy Ellipta 100-62.5-25] 1 each IH DAILY 07/19 Insulin Glargine,Hum.rec.anlog [Toucelia Solostgeorge] 10 unit SQ DAILY 11/05/18 Metoprolol Succinate [Toprol XL -] 100 mg PO DAILY 11/05/18 Ondansetron [Zofran *Odt*] 4 mg SL DAILY 11/05/18 Ranolazine [Ranolazine ER] 500 mg PO BID 11/05/18 Albuterol 0.083% Nebulizer Amelia [Ventolin 0.083% Nebulizer Soln -] 1 amp NEB Q6H PRN amp 03/16/19 Calcium Acetate 2 tab PO TID 03/30/19 Hydralazine HCl 100 mg PO BID 03/30/19 Telmisartan/Amlodipine [Telmisartan-Amlodipine 80-10] 1 tab PO DAILY 03/30/19 Family Medical History Family History: Denies Review of Systems - Review of Systems Constitutional: reports: Malaise Eyes: reports: No Symptoms HENT: reports: No Symptoms Neck: reports: No Symptoms Cardiovascular: reports: No Symptoms Respiratory: reports: No Symptoms Gastrointestinal: reports: Abdominal Pain Genitourinary: reports: No Symptoms Musculoskeletal: reports: No Symptoms Integumentary: reports: No Symptoms Neurological: reports: No Symptoms Endocrine: reports: No Symptoms Hematology/Lymphatic: reports: No Symptoms Psychiatric: reports: No Symptoms Physical Exam Vital Signs: Vital Signs Temperature 98.1 F 03/30/19 18:27 Pulse Rate 91 H 03/30/19 18:27 Respiratory Rate 22 H 03/30/19 18:27 Blood Pressure 143/75 03/30/19 18:27 O2 Sat by Pulse Oximetry (%) 96 03/30/19 18:27 Constitutional: Yes: Calm Eyes: Yes: Conjunctiva Clear HENT: Yes: Atraumatic Neck: Yes: Supple Cardiovascular: Yes: S1, S2 Respiratory: Yes: CTA Bilaterally Gastrointestinal: Yes: Tenderness Renal/: Yes: WNL Musculoskeletal: Yes: WNL Edema: No Neurological: Yes: Oriented Psychiatric: Yes: Oriented Labs: CBC, BMP 03/30/19 05:30 03/30/19 05:30 Laboratory Tests 03/29/19 03/30/19 03/30/19 17:40 01:25 05:30 WBC 15.4 H 9.2 Hgb 10.5 L 9.3 L Sodium 133 L Potassium 5.2 H BUN 40.2 H Creatinine 5.4 H 03/30/19 05:30 WBC Hgb Sodium 133 L Potassium 4.9 BUN 41.1 H Creatinine 5.6 H Imaging - Results Cat Scan: Report Reviewed Problem List - Problems (1) Atrial fibrillation Code(s): I48.91 - UNSPECIFIED ATRIAL FIBRILLATION Qualifiers: Atrial fibrillation type: paroxysmal Qualified Code(s): I48.0 - Paroxysmal atrial fibrillation (2) Small bowel obstruction Code(s): K56.609 - UNSP INTESTNL OBST, UNSP TO PARTIAL VERSUS COMPLETE OBST (3) ESRD (end stage renal disease) Code(s): N18.6 - END STAGE RENAL DISEASE Assessment/Plan Current Medications Generic Name Dose Route Start Last Admin Trade Name Freq PRN Reason Stop Dose Admin Acetaminophen 1,000 mg 03/30/19 03:27 Ofirmev Injection - IVPB 03/31/19 03:27 Q6H PRN PAIN LEVEL 6-10 Albuterol Sulfate 1 amp 03/30/19 03:08 Ventolin 0.083% Nebulizer Soln - NEB RQID PRN SHORT OF BREATH/WHEEZING Amlodipine Besylate 10 mg 03/30/19 10:00 03/30/19 10:25 Norvasc - PO Not Given DAILY [facility] Atorvastatin Calcium 20 mg 03/30/19 22:00 Lipitor - PO HS [facility] Budesonide/Formoterol Fumarate 2 puff 03/30/19 10:00 03/30/19 10:21 Symbicort 80/4.5mcg - IH Not Given BID [facility] Calcium Acetate 1,334 mg 03/30/19 08:00 03/30/19 18:22 Phoslo - PO Not Given TIDCM [facility] Hydralazine HCl 100 mg 03/30/19 10:00 03/30/19 10:20 Apresoline - PO Not Given BID [facility] Sodium Chloride 250 mls @ 3,000 mls/hr 03/30/19 14:18 Normal Saline - IV 03/30/19 22:00 PRN PRN Hypotension during Dialysis Insulin Aspart 1 vial 03/30/19 02:15 03/30/19 14:17 Novolog Vial Sliding Scale - SQ Not Given Q6H [facility] Protocol Insulin Detemir 10 units 03/30/19 10:00 03/30/19 10:20 Levemir Vial SQ Not Given DAILY [facility] Isosorbide Mononitrate 30 mg 03/30/19 10:00 03/30/19 10:20 Imdur - PO Not Given DAILY [facility] Metoprolol Succinate 100 mg 03/30/19 10:00 03/30/19 10:22 Toprol Xl - PO Not Given DAILY [facility] Ondansetron HCl 4 mg 03/30/19 05:00 Zofran Injection IVPUSH Q8H PRN NAUSEA AND/OR VOMITING Pantoprazole Sodium 20 mg 03/30/19 10:00 03/30/19 10:25 Protonix - PO 20 mg DAILY [facility] Administration Ranolazine 500 mg 03/30/19 10:00 03/30/19 10:25 Ranexa - PO 500 mg BID [facility] Administration Sevelamer Carbonate 800 mg 03/30/19 08:00 03/30/19 18:22 Renvela - PO Not Given TIDCM [facility] Tiotropium [place] 2 puff 03/30/19 10:00 03/30/19 10:21 Spiriva Respimat IH Not Given DAILY [facility] Impression 1. ESRD 2. HTN 3. HLD 4. COPD 5. DM 6. pos heb b core 7. SBO 8. anemia 9. a-fib 10. hernia Plan - HD today - will not UF volume on HD - repeat labs in am - surgery eval - discussed with family
[2019-03-30] MEDS: ATORVASTATIN CA 20 MG TABLET (FP) PO SCH (21:06)
[2019-03-31] MEDS: INSULIN SLIDING SCALE (NOVOLOG) 1 VIAL SQ SCH ×4 (01:55→22:00)
[2019-03-31 07:31] LABS: HEMATOCRIT 24.5 % (32.4-45.2); HEMOGLOBIN 8.2 GM/dL (10.7-15.3); MCH 28.1 pg (25.7-33.7); MCHC 33.4 g/dl (32.0-36.0); MEAN CELL VOLUME 84.2 fl (80-96); MEAN PLT VOLUME 8.5 fl (7.5-11.1); PLATELET COUNT 296 K/MM3 (134-434); RBC 2.92 M/mm3 (3.60-5.2); RDW 19.2 % (11.6-15.6); WHITE BLOOD COUNT 5.4 K/mm3 (4.0-10.0)
--- NOTE | 2019-03-31 08:05 | PN ---
Progress Note (short form) - Note Progress Note: 88 year old female admitted secondary to Small Bowel Obstruction. Patient seen and examined at bedside. Patient is currently NPO and without complaints Vital Signs Temp 98.2 F 03/31/19 06:00 Pulse 107 H 03/31/19 06:00 Resp 20 03/31/19 06:00 BP 144/96 03/31/19 06:00 Pulse Ox 96 03/30/19 21:00 Intake & Output 03/30/19 03/30/19 03/31/19 11:59 23:59 11:59 Intake Total 400 500 Output Total 500 Balance -100 500 Weight 113 lb Intake: IVPB 400 Oral 500 Output: Fluid Removed, 500 Hemodialysis Other: Voiding Method Diaper Height 5 ft 6 in Body Mass Index (BMI) 18.2 Weight Measurement Method Patient Lift Scale General: Well developed, well nourished, black female confused and in no acute distress. Abdomen: Soft, non-tender, non-distended, no rebound tenderness Assessment and Plan: 88 year old female with Small Bowel Obstruction per CT Scan - NPO - F/U Abdominal X-ray ordered for this morning - Continue current medical management
--- NOTE | 2019-03-31 08:26 | PN ---
Teaching Attending Note Name of Resident: Lyudmila Rasmussen ATTENDING PHYSICIAN STATEMENT I saw and evaluated the patient. I reviewed the resident's note and discussed the case with the resident. I agree with the resident's findings and plan as documented. SUBJECTIVE: Denies any nausea vomiting or abdominal pain OBJECTIVE: Vital Signs Temperature 98.2 F 03/31/19 06:00 Pulse Rate 107 H 03/31/19 06:00 Respiratory Rate 20 03/31/19 06:00 Blood Pressure 144/96 03/31/19 06:00 O2 Sat by Pulse Oximetry (%) 96 03/30/19 21:00 General: Elderly female comfortable, not in distress HEENT; mucous membranes moist, no anemia, no jaundice, PERRLA, no nystagmus Neck: No JVD, supple, no bruit, thyroid palpably normal, normal carotid pulsations. Chest: Nontender, bilateral basal rales. 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 There is wall thickening of the bowel within the hernia concerning for strangulation/ ischemia. Large stool burden within the ascending colon and transverse colon suggesting constipation. CBC, BMP 03/31/19 07:12 03/31/19 07:12 ASSESSMENT AND PLAN:88 year old female with a past medical history of ESRD (T,Th ,Sat), COPD (on 2L NC), anemia, asthma, CHF, type II DM, GERD, HTN, HLD, afib ( on Eliquis), L incarcerated hernia and SBO s/p repair (11/2018) presents with a 2-3 days history of abdominal pain, nausea, vomiting. CT abdomen shows small bowel obstruction: Impression: Small bowel obstruction Problem List - Problems (1) Small bowel obstruction Assessment/Plan: Improving continue current conservative management follow-up KUB and surgical input Code(s): K56.609 - UNSP INTESTNL OBST, UNSP TO PARTIAL VERSUS COMPLETE OBST (2) History of end stage renal disease Assessment/Plan: On hemodialysis continue same Code(s): Z87.448 - PERSONAL HISTORY OF OTHER DISEASES OF URINARY SYSTEM (3) Atrial fibrillation Assessment/Plan: Rate controlled at present in normal sinus rhythm on hold of apixaban will CVs to heparin infusion if indicated follow-up cardiology recommendations Code(s): I48.91 - UNSPECIFIED ATRIAL FIBRILLATION Qualifiers: Atrial fibrillation type: paroxysmal Qualified Code(s): I48.0 - Paroxysmal atrial fibrillation (4) Pulmonary hypertension Assessment/Plan: Chronic Code(s): I27.20 - PULMONARY HYPERTENSION, UNSPECIFIED (5) Diabetes Assessment/Plan: Type 2 diabetes continue Levemir 10 units with correction dose insulin Code(s): E11.9 - TYPE 2 DIABETES MELLITUS WITHOUT COMPLICATIONS Qualifiers: Diabetes mellitus type: type 2 Diabetes mellitus care home insulin use: without care home use Diabetes mellitus complication status: with kidney complications Diabetes mellitus complication detail: with chronic kidney disease Chronic kidney disease stage: on chronic dialysis Qualified Code(s) : E11.22 - Type 2 diabetes mellitus with diabetic chronic kidney disease; N18.6 - End stage renal disease; Z99.2 - Dependence on renal dialysis (6) Hypercholesterolemia Assessment/Plan: Continue statin Code(s): E78.00 - PURE HYPERCHOLESTEROLEMIA, UNSPECIFIED (7) Hypertension Assessment/Plan: Well-controlled continue all home medications Code(s): I10 - ESSENTIAL (PRIMARY) HYPERTENSION Qualifiers: Hypertension type: essential hypertension Qualified Code(s): I10 - Essential (primary) hypertension (8) COPD (chronic obstructive pulmonary disease) Assessment/Plan: Stable continue DuoNeb as needed every 6 hourly,, continue Symbicort Code(s): J44.9 - CHRONIC OBSTRUCTIVE PULMONARY DISEASE, UNSPECIFIED
[2019-03-31] MEDS: SEVELAMER CARBONATE 800 MG TAB (FP) PO SCH ×3 (09:14→17:36)
[2019-03-31] MEDS: CALCIUM ACETATE 667 MG CAPSULE (FP) PO SCH ×3 (09:14→17:36)
[2019-03-31 09:34] LABS: ALBUMIN 2.7 g/dl (3.4-5.0); BILIRUBIN,TOTAL 0.8 mg/dL (0.2-1); BLOOD UREA NITROGEN 18.4 mg/dL (7-18); CALCIUM 8.6 mg/dL (8.5-10.1); CREATININE 3.5 mg/dL (0.55-1.3); POTASSIUM 4.1 mmol/L (3.5-5.1); TOT PROT 5.5 g/dl (6.4-8.2)
[2019-03-31] MEDS ORDERED: PT OWN MED DRAWER 7, Y5N ONE ×2 (10:47→15:50)
[2019-03-31] MEDS: RANOLAZINE E.R. 500 MG TABLET (FP) PO SCH ×2 (10:53→21:49)
[2019-03-31] MEDS: hydrALAZINE HCL 50 MG TABLET (FP) PO SCH ×2 (10:53→21:49)
[2019-03-31] MEDS: PANTOPRAZOLE 20 MG TABLET PO SCH (10:54)
[2019-03-31] MEDS: INSULIN (LEVEMIR) 100 UNITS/ML UNITS SQ SCH (10:54)
[2019-03-31] MEDS: ISOSORBIDE MONONITRATE 30 MG TAB.SR.24H (FP) PO SCH (10:54)
[2019-03-31] MEDS: amLODIPine BESYLATE 10 MG TABLET (FP) PO SCH (10:54)
[2019-03-31] MEDS: TIOTROPIUM BROMIDE 2.5 MCG (SPIRIVA) RESPIMAT INHALER IH SCH (10:55)
[2019-03-31] MEDS: BUDESONIDE/FORMETEROL FUMARATE 80/4.5 mcg INHALER IH SCH ×2 (10:55→21:57)
--- NOTE | 2019-03-31 11:16 | PN ---
Progress Note, Physician History of Present Illness: Pt seen and examined at bedside. She is awake and alert. She feels that her abd pain is improved. - Current Medication List Current Medications: Active Medications Albuterol Sulfate (Ventolin 0.083% Nebulizer Soln -) 1 amp NEB RQID PRN PRN Reason: SHORT OF BREATH/WHEEZING Amlodipine Besylate (Norvasc -) 10 mg PO DAILY [facility] Last Admin: 03/31/19 10:54 Dose: 10 mg Atorvastatin Calcium (Lipitor -) 20 mg PO HS [facility] Last Admin: 03/30/19 21:06 Dose: 20 mg Budesonide/Formoterol Fumarate (Symbicort 80/4.5mcg -) 2 puff IH BID [facility] Last Admin: 03/31/19 10:55 Dose: 2 puff Calcium Acetate (Phoslo -) 1,334 mg PO TIDCM [facility] Last Admin: 03/31/19 09:14 Dose: Not Given Hydralazine HCl (Apresoline -) 100 mg PO BID [facility] Last Admin: 03/31/19 10:53 Dose: 100 mg Insulin Aspart (Novolog Vial Sliding Scale -) 1 vial SQ Q6H [facility]; Protocol Last Admin: 03/31/19 09:14 Dose: Not Given Insulin Detemir (Levemir Vial) 10 units SQ DAILY [facility] Last Admin: 03/31/19 10:54 Dose: Not Given Isosorbide Mononitrate (Imdur -) 30 mg PO DAILY [facility] Last Admin: 03/31/19 10:54 Dose: 30 mg Metoprolol Succinate (Toprol Xl -) 100 mg PO DAILY [facility] Last Admin: 03/31/19 10:53 Dose: 100 mg Ondansetron HCl (Zofran Injection) 4 mg IVPUSH Q8H PRN PRN Reason: NAUSEA AND/OR VOMITING Pantoprazole Sodium (Protonix -) 20 mg PO DAILY [facility] Last Admin: 03/31/19 10:54 Dose: 20 mg Ranolazine (Ranexa -) 500 mg PO BID [facility] Last Admin: 03/31/19 10:53 Dose: 500 mg Sevelamer Carbonate (Renvela -) 800 mg PO TIDCM [facility] Last Admin: 03/31/19 09:14 Dose: Not Given Tiotropium [place] (Spiriva Respimat) 2 puff IH DAILY [facility] Last Admin: 03/31/19 10:55 Dose: 2 puff - Objective Vital Signs: Vital Signs Temperature 98.2 F 03/31/19 06:00 Pulse Rate 107 H 03/31/19 06:00 Respiratory Rate 20 03/31/19 06:00 Blood Pressure 144/96 03/31/19 06:00 O2 Sat by Pulse Oximetry (%) 96 03/30/19 21:00 Constitutional: Yes: Calm Eyes: Yes: Conjunctiva Clear HENT: Yes: Atraumatic Neck: Yes: Supple Cardiovascular: Yes: S1, S2 Respiratory: Yes: CTA Bilaterally Gastrointestinal: Yes: Soft Genitourinary: Yes: WNL Musculoskeletal: Yes: WNL Edema: No Neurological: Yes: Oriented Psychiatric: Yes: Oriented Labs: CBC, BMP 03/31/19 07:12 03/31/19 07:12 INR, PTT INR 1.00 (0.83-1.09) 03/30/19 05:30 Problem List - Problems (1) Atrial fibrillation Code(s): I48.91 - UNSPECIFIED ATRIAL FIBRILLATION Qualifiers: Atrial fibrillation type: paroxysmal Qualified Code(s): I48.0 - Paroxysmal atrial fibrillation (2) Small bowel obstruction Code(s): K56.609 - UNSP INTESTNL OBST, UNSP TO PARTIAL VERSUS COMPLETE OBST (3) ESRD (end stage renal disease) Code(s): N18.6 - END STAGE RENAL DISEASE Assessment/Plan Current Medications Generic Name Dose Route Start Last Admin Trade Name Freq PRN Reason Stop Dose Admin Albuterol Sulfate 1 amp 03/30/19 03:08 Ventolin 0.083% Nebulizer Soln - NEB RQID PRN SHORT OF BREATH/WHEEZING Amlodipine Besylate 10 mg 03/30/19 10:00 03/31/19 10:54 Norvasc - PO 10 mg DAILY [facility] Administration Atorvastatin Calcium 20 mg 03/30/19 22:00 03/30/19 21:06 Lipitor - PO 20 mg HS [facility] Administration Budesonide/Formoterol Fumarate 2 puff 03/30/19 10:00 03/31/19 10:55 Symbicort 80/4.5mcg - IH 2 puff BID [facility] Administration Calcium Acetate 1,334 mg 03/30/19 08:00 03/31/19 09:14 Phoslo - PO Not Given TIDCM [facility] Hydralazine HCl 100 mg 03/30/19 10:00 03/31/19 10:53 Apresoline - PO 100 mg BID [facility] Administration Insulin Aspart 1 vial 03/30/19 02:15 03/31/19 09:14 Novolog Vial Sliding Scale - SQ Not Given Q6H [facility] Protocol Insulin Detemir 10 units 03/30/19 10:00 03/31/19 10:54 Levemir Vial SQ Not Given DAILY [facility] Isosorbide Mononitrate 30 mg 03/30/19 10:00 03/31/19 10:54 Imdur - PO 30 mg DAILY [facility] Administration Metoprolol Succinate 100 mg 03/30/19 10:00 03/31/19 10:53 Toprol Xl - PO 100 mg DAILY [facility] Administration Ondansetron HCl 4 mg 03/30/19 05:00 Zofran Injection IVPUSH Q8H PRN NAUSEA AND/OR VOMITING Pantoprazole Sodium 20 mg 03/30/19 10:00 03/31/19 10:54 Protonix - PO 20 mg DAILY [facility] Administration Ranolazine 500 mg 03/30/19 10:00 03/31/19 10:53 Ranexa - PO 500 mg BID [facility] Administration Sevelamer Carbonate 800 mg 03/30/19 08:00 03/31/19 09:14 Renvela - PO Not Given TIDCM [facility] Tiotropium [place] 2 puff 03/30/19 10:00 03/31/19 10:55 Spiriva Respimat IH 2 puff DAILY [facility] Administration Impression 1. ESRD 2. HTN 3. HLD 4. COPD 5. DM 6. pos heb b core 7. SBO 8. anemia 9. a-fib 10. hernia Plan - HD tomorrow - surgery follow up for SBO - pt NPO - discussed with family
[2019-03-31 11:38] LABS: ANISOCYTOSIS 2+; MACROCYTOSIS 0; OVALOCYTE 1+; PLATELET ESTIMATE NORMAL; TARGET CELLS 2+; TEAR DROP CELLS 1+
[2019-03-31] MEDS: DEXTROSE 5%-0.45% SALINE 1,000 ML IV SCH (12:12)
--- NOTE | 2019-03-31 12:13 | PN ---
Physical Exam: SUBJECTIVE: Patient seen and examined. No complaints today. no events overnight. OBJECTIVE: Vital Signs Period Temp Pulse Resp BP Sys/Betancourt Pulse Ox Last 24 Hr 98 F-98.5 F 76-107 18-22 108-149/50-96 95-96 General: in NAD, laying in bed HEENT; mucous membranes moist, PERRLA Neck: No JVD, supple Chest: Nontender, bilateral basal rales. 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 Lymphocytes % No Result Required. Nucleated RBC % 0 Sodium Potassium Chloride Carbon Dioxide Anion Gap BUN Creatinine Est GFR (CKD-EPI)AfAm Est GFR (CKD-EPI)NonAf POC Glucometer 88 Random Glucose Calcium Total Bilirubin AST ALT Alkaline Phosphatase Total Protein Albumin Blood Type A POSITIVE Antibody Screen Negative 03/31/19 03/31/19 07:12 11:06 WBC RBC Hgb Hct MCV MCH MCHC RDW Plt Count MPV Absolute Neuts (auto) Neutrophils % Lymphocytes % Nucleated RBC % Sodium 145 Potassium 4.1 Chloride 106 Carbon Dioxide 33 H Anion Gap 5 L BUN 18.4 H Creatinine 3.5 H Est GFR (CKD-EPI)AfAm 12.81 Est GFR (CKD-EPI)NonAf 11.05 POC Glucometer 69 Random Glucose 87 Calcium 8.6 Total Bilirubin 0.8 AST 13 L ALT 12 L Alkaline Phosphatase 73 Total Protein 5.5 L Albumin 2.7 L Blood Type Antibody Screen Active Medications Generic Name Dose Route Start Last Admin Trade Name Freq PRN Reason Stop Dose Admin Albuterol Sulfate 1 amp 03/30/19 03:08 Ventolin 0.083% Nebulizer Soln - NEB RQID PRN SHORT OF BREATH/WHEEZING Amlodipine Besylate 10 mg 03/30/19 10:00 03/31/19 10:54 Norvasc - PO 10 mg DAILY [facility] Administration Atorvastatin Calcium 20 mg 03/30/19 22:00 03/30/19 21:06 Lipitor - PO 20 mg HS [facility] Administration Budesonide/Formoterol Fumarate 2 puff 03/30/19 10:00 03/31/19 10:55 Symbicort 80/4.5mcg - IH 2 puff BID [facility] Administration Calcium Acetate 1,334 mg 03/30/19 08:00 03/31/19 09:14 Phoslo - PO Not Given TIDCM [facility] Epoetin Nnamdi 10,000 unit 04/01/19 11:16 Procrit - SQ 04/01/19 11:17 ONCE ONE Hydralazine HCl 100 mg 03/30/19 10:00 03/31/19 10:53 Apresoline - PO 100 mg BID [facility] Administration Sodium Chloride 250 mls @ 3,000 mls/hr 03/31/19 11:16 Normal Saline - IV 04/01/19 11:16 PRN PRN Hypotension during Dialysis Dextrose/Sodium Chloride 1,000 mls @ 42 mls/hr 03/31/19 11:30 D5-1/2ns - IV ASDIR [facility] Insulin Aspart 1 vial 03/30/19 02:15 03/31/19 09:14 Novolog Vial Sliding Scale - SQ Not Given Q6H [facility] Protocol Isosorbide Mononitrate 30 mg 03/30/19 10:00 03/31/19 10:54 Imdur - PO 30 mg DAILY [facility] Administration Metoprolol Succinate 100 mg 03/30/19 10:00 03/31/19 10:53 Toprol Xl - PO 100 mg DAILY [facility] Administration Ondansetron HCl 4 mg 03/30/19 05:00 Zofran Injection IVPUSH Q8H PRN NAUSEA AND/OR VOMITING Pantoprazole Sodium 20 mg 03/30/19 10:00 03/31/19 10:54 Protonix - PO 20 mg DAILY [facility] Administration Ranolazine 500 mg 03/30/19 10:00 03/31/19 10:53 Ranexa - PO 500 mg BID [facility] Administration Sevelamer Carbonate 800 mg 03/30/19 08:00 03/31/19 09:14 Renvela - PO Not Given TIDCM [facility] Tiotropium [place] 2 puff 03/30/19 10:00 03/31/19 10:55 Spiriva Respimat IH 2 puff DAILY [facility] Administration ASSESSMENT/PLAN: Araceli Crouch is an 88 year old female with a past medical history of ESRD (T,Th, Sat), COPD (on 2L NC), anemia, asthma, CHF, DM, GERD, HTN, HLD, afib (on Eliquis ), L incarcerated hernia and SBO s/p repair admitted for small bowel obstruction. #Small Bowel Obstruction-symptoms improving -in the setting of previous SBO and abdominal surgery -CT: SB dilation to the level of the left inguinal hernia compatible with sbo. There is wall thickening of the bowel within the hernia concerning for strangulation/ischemia. -NGT if develops n/v -AXR today: may be undergong partial resolution -surgery on board. FU reccs. possible sx intervention. -NPO -held Eliquis -serial abd exams -serial AXR #ESRD - nephrology consulted, dialysis here - continue to monitor electrolytes #Constipation -CT scan: Large stool burden within the ascending colon and transverse colon suggesting constipation. -enema given yesterday. #Anemia - likely secondary to ESRD #COPD - continue home Trelelgy and albuterol prn Afib - hold Eliquis for potential surgical procedure - continue home hydralazine and metoprolol #DM - BGM - ISS - held home glargine due to patient being NPO and hypoglycemic #HTN - home amlodipine - on combination medication telmisartan but in ESRD, can consider alternative, medication not noted to be present on last discharge #HLD - continue home Lipitor #Noted Propotosis on CT scan - not well noted on physical exam - last TSH in March 2019 within normal limits #DVT PPx - SCDs - avoid chemical prophylaxis until cleared by surgery FEN -gentle hydraton d5 1/2ns -monitor -npo Visit type - Emergency Visit Emergency Visit: Yes ED Registration Date: 03/29/19 Care time: The patient presented to the Emergency Department on the above date and was hospitalized for further evaluation of their emergent condition. - New Patient This patient is new to me today: Yes Date on this admission: 03/31/19 - Critical Care Critical Care patient: No ATTENDING PHYSICIAN STATEMENT I saw and evaluated the patient. I reviewed the resident's note and discussed the case with the resident. I agree with the resident's findings and plan as documented. SUBJECTIVE: OBJECTIVE: ASSESSMENT AND PLAN:
[2019-03-31] MEDS ORDERED: ALPRAZolam 0.25 MG TABLET PO ONE (12:44)
--- NOTE | 2019-03-31 13:56 | PN ---
Progress Note (short form) - Note Progress Note: Attending Surgeon Seen in f/u; she is confused; appears not to be in any distress; no vomiting VSS AF abdo-soft; flat and non tender; no clinical evidence of recurrent hernia r/l; no evidence of femoral hernia. Latest imaging reviewed IMP: resolving SBO secondary to previous LIH repair; no evidence of an acute surgical abdomen. PLAN: Will get UGI w/SBFT and d/w daughter goals of care Lucas Waggoner MD FACS
[2019-03-31] MEDS: ATORVASTATIN CA 20 MG TABLET (FP) PO SCH (21:49)
[2019-04-01] MEDS: INSULIN SLIDING SCALE (NOVOLOG) 1 VIAL SQ SCH ×4 (02:03→22:17)
[2019-04-01 07:58] LABS: ALBUMIN 2.7 g/dl (3.4-5.0); BILIRUBIN,TOTAL 0.8 mg/dL (0.2-1); BLOOD UREA NITROGEN 29.2 mg/dL (7-18); CALCIUM 8.3 mg/dL (8.5-10.1); POTASSIUM 4.2 mmol/L (3.5-5.1); TOT PROT 5.3 g/dl (6.4-8.2)
[2019-04-01 08:02] LABS: BASO % 0.6 % (0-2.0); EOS % 1.9 % (0-4.5); HEMATOCRIT 23.9 % (32.4-45.2); HEMOGLOBIN 7.8 GM/dL (10.7-15.3); LYMPH % 21.9 % (8-40); MCH 27.6 pg (25.7-33.7); MCHC 32.6 g/dl (32.0-36.0); MEAN CELL VOLUME 84.6 fl (80-96); MEAN PLT VOLUME 8.8 fl (7.5-11.1); MONO % 9.1 % (3.8-10.2); NEUT % 66.5 % (42.8-82.8); PLATELET COUNT 290 K/MM3 (134-434); RBC 2.83 M/mm3 (3.60-5.2); RDW 18.6 % (11.6-15.6); WHITE BLOOD COUNT 5.6 K/mm3 (4.0-10.0)
[2019-04-01] MEDS: SEVELAMER CARBONATE 800 MG TAB (FP) PO SCH ×3 (09:12→17:09)
[2019-04-01] MEDS: CALCIUM ACETATE 667 MG CAPSULE (FP) PO SCH ×3 (09:12→17:12)
--- NOTE | 2019-04-01 09:19 | PN ---
Teaching Attending Note Name of Resident: Lyudmila Rasmussen ATTENDING PHYSICIAN STATEMENT I saw and evaluated the patient. I reviewed the resident's note and discussed the case with the resident. I agree with the resident's findings and plan as documented. SUBJECTIVE: OBJECTIVE: Vital Signs Temperature 98.6 F 04/01/19 06:07 Pulse Rate 86 04/01/19 06:07 Respiratory Rate 04/01/19 08:46 Blood Pressure 123/51 L 04/01/19 06:07 O2 Sat by Pulse Oximetry (%) 96 04/01/19 08:46 General: Elderly female comfortable, not in distress HEENT; mucous membranes moist, no anemia, no jaundice, PERRLA, no nystagmus Neck: No JVD, supple, no bruit, thyroid palpably normal, normal carotid pulsations. Chest: Nontender, bilateral basal rales. 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 There is wall thickening of the bowel within the hernia concerning for strangulation/ ischemia. Large stool burden within the ascending colon and transverse colon suggesting constipation. 04/01/19 06:29 04/01/19 06:00 Small bowel series: No obstruction, no hernia ASSESSMENT AND PLAN:88 year old female with a past medical history of ESRD (T,Th ,Sat), COPD (on 2L NC), anemia, asthma, CHF, type II DM, GERD, HTN, HLD, afib ( on Eliquis), L incarcerated hernia and SBO s/p repair (11/2018) presents with a 2-3 days history of abdominal pain, nausea, vomiting. CT abdomen shows small bowel obstruction, yesterday evaluated by surgery team small bowel series shows no obstruction or hernia. Problem List - Problems (1) Small bowel obstruction Assessment/Plan: Improving continue current conservative management small bowel series shows no obstruction advance p.o. as recommended by surgery team. Code(s): K56.609 - UNSP INTESTNL OBST, UNSP TO PARTIAL VERSUS COMPLETE OBST (2) History of end stage renal disease Assessment/Plan: On hemodialysis continue same Code(s): Z87.448 - PERSONAL HISTORY OF OTHER DISEASES OF URINARY SYSTEM (3) Atrial fibrillation Assessment/Plan: Rate controlled at present in normal sinus rhythm on hold of apixaban will CVs to heparin infusion if indicated follow-up cardiology recommendations Code(s): I48.91 - UNSPECIFIED ATRIAL FIBRILLATION Qualifiers: Atrial fibrillation type: paroxysmal Qualified Code(s): I48.0 - Paroxysmal atrial fibrillation (4) Pulmonary hypertension Assessment/Plan: Chronic Code(s): I27.20 - PULMONARY HYPERTENSION, UNSPECIFIED (5) Diabetes Assessment/Plan: Type 2 diabetes continue Levemir 10 units with correction dose insulin Code(s): E11.9 - TYPE 2 DIABETES MELLITUS WITHOUT COMPLICATIONS Qualifiers: Diabetes mellitus type: type 2 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 use Diabetes mellitus complication status: with kidney complications Diabetes mellitus complication detail: with chronic kidney disease Chronic kidney disease stage: on chronic dialysis Qualified Code(s) : E11.22 - Type 2 diabetes mellitus with diabetic chronic kidney disease; N18.6 - End stage renal disease; Z99.2 - Dependence on renal dialysis (6) Hypercholesterolemia Assessment/Plan: Continue statin Code(s): E78.00 - PURE HYPERCHOLESTEROLEMIA, UNSPECIFIED (7) Hypertension Assessment/Plan: Well-controlled continue all home medications Code(s): I10 - ESSENTIAL (PRIMARY) HYPERTENSION Qualifiers: Hypertension type: essential hypertension Qualified Code(s): I10 - Essential (primary) hypertension (8) COPD (chronic obstructive pulmonary disease) Assessment/Plan: Stable continue DuoNeb as needed every 6 hourly,, continue Symbicort Code(s): J44.9 - CHRONIC OBSTRUCTIVE PULMONARY DISEASE, UNSPECIFIED
--- NOTE | 2019-04-01 09:27 | PN ---
Progress Note (short form) - Note Progress Note: surgery Batient being followed for recurrent LIH/ SBO. Patient seen and examined at bedside. Nursing reports no issues overnight. She is scheduled for HD and small bowel series today. Vital Signs Temp 98.6 F 04/01/19 06:07 Pulse 86 04/01/19 06:07 Resp 20 04/01/19 08:46 BP 123/51 L 04/01/19 06:07 Pulse Ox 96 04/01/19 08:46 Intake & Output 03/31/19 03/31/19 04/01/19 11:59 23:59 11:59 Intake Total 500 668 Balance 500 668 Weight 113 lb 104 lb 2 oz Intake: IV 168 D5-1/2Ns - 1,000 ml @ 42 168 mls/hr IV ASDIR FORREST Rx#: [id number] Oral 500 500 Other: Voiding Method Diaper Diaper Height 5 ft 6 in Body Mass Index (BMI) 18.2 Weight Measurement Method Standing Scale CBC, BMP 04/01/19 06:29 04/01/19 06:00 PE: pleasantly confused in NAD Unlabored resp on RA VSS AF abdo-soft; non tender; minimal distention I Problem List - Problems (1) Small bowel obstruction Assessment/Plan: Resolving SBO secondary to previous LIH repair; no evidence of an acute surgical abdomen. Asymptomatic anemia. -Transfuse PRN- HD today -HD per renal -f/u Small bowel series today -trend labs -OOB with assist as tolerated -Surgery team to follow Code(s): K56.609 - UNSP INTESTNL OBST, UNSP TO PARTIAL VERSUS COMPLETE OBST
[2019-04-01] MEDS ORDERED: EPOETIN ALFA 10,000 UNIT/1 ML VIAL SQ ONE (11:00)
[2019-04-01] MEDS ORDERED: SODIUM CHLORIDE 250 ML IV PRN (11:16)
[2019-04-01 13:57] LABS: HEMATOCRIT 25.4 % (32.4-45.2); HEMOGLOBIN 8.2 GM/dL (10.7-15.3); MCH 27.4 pg (25.7-33.7); MCHC 32.4 g/dl (32.0-36.0); MEAN CELL VOLUME 84.5 fl (80-96); MEAN PLT VOLUME 8.8 fl (7.5-11.1); PLATELET COUNT 319 K/MM3 (134-434); RBC 3.01 M/mm3 (3.60-5.2); RDW 18.9 % (11.6-15.6); WHITE BLOOD COUNT 6.2 K/mm3 (4.0-10.0)
--- NOTE | 2019-04-01 14:07 | PN ---
Physical Exam: SUBJECTIVE: Patient seen and examined. No events overnight. Offers no complaints. OBJECTIVE: Vital Signs Period Temp Pulse Resp BP Sys/Betancourt Pulse Ox Last 24 Hr 97.2 F-98.6 F 81-95 18-20 123-167/51-88 96-96 General: in NAD, laying in bed HEENT; mucous membranes moist, PERRLA Neck: No JVD, supple Chest: Nontender, bilateral basal rales. 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 , no gross motor sensory deficit Laboratory Results - last 24 hr 03/31/19 03/31/19 04/01/19 18:24 21:52 06:00 WBC RBC Hgb Hct MCV MCH MCHC RDW Plt Count MPV Absolute Neuts (auto) Neutrophils % Lymphocytes % Monocytes % Eosinophils % Basophils % Nucleated RBC % Sodium 143 Potassium 4.2 Chloride 106 Carbon Dioxide 32 Anion Gap 5 L BUN 29.2 H Creatinine 5.0 H Est GFR (CKD-EPI)AfAm 8.32 Est GFR (CKD-EPI)NonAf 7.18 POC Glucometer 85 81 Random Glucose 97 Calcium 8.3 L Total Bilirubin 0.8 AST 12 L ALT 10 L Alkaline Phosphatase 67 Total Protein 5.3 L Albumin 2.7 L 04/01/19 04/01/19 04/01/19 06:29 11:42 13:00 WBC 5.6 6.2 RBC 2.83 L 3.01 L Hgb 7.8 L 8.2 L Hct 23.9 L 25.4 L MCV 84.6 84.5 MCH 27.6 27.4 MCHC 32.6 32.4 RDW 18.6 H 18.9 H Plt Count 290 319 MPV 8.8 8.8 Absolute Neuts (auto) 3.7 Neutrophils % 66.5 D Lymphocytes % 21.9 D Monocytes % 9.1 Eosinophils % 1.9 D Basophils % 0.6 Nucleated RBC % 0 Sodium Potassium Chloride Carbon Dioxide Anion Gap BUN Creatinine Est GFR (CKD-EPI)AfAm Est GFR (CKD-EPI)NonAf POC Glucometer 86 Random Glucose Calcium Total Bilirubin AST ALT Alkaline Phosphatase Total Protein Albumin Active Medications Generic Name Dose Route Start Last Admin Trade Name Freq PRN Reason Stop Dose Admin Albuterol Sulfate 1 amp 03/30/19 03:08 Ventolin 0.083% Nebulizer Soln - NEB RQID PRN SHORT OF BREATH/WHEEZING Amlodipine Besylate 10 mg 03/30/19 10:00 03/31/19 10:54 Norvasc - PO 10 mg DAILY FORREST Administration Atorvastatin Calcium 20 mg 03/30/19 22:00 03/31/19 21:49 Lipitor - PO 20 mg HS FORREST Administration Budesonide/Formoterol Fumarate 2 puff 03/30/19 10:00 03/31/19 21:57 Symbicort 80/4.5mcg - IH 2 puff BID FORREST Administration Calcium Acetate 1,334 mg 03/30/19 08:00 04/01/19 09:12 Phoslo - PO Not Given TIDCM FORREST Hydralazine HCl 100 mg 03/30/19 10:00 03/31/19 21:49 Apresoline - PO 100 mg BID FORREST Administration Dextrose/Sodium Chloride 1,000 mls @ 42 mls/hr 03/31/19 11:30 03/31/19 12:12 D5-1/2ns - IV 42 mls/hr ASDIR FORREST Administration Insulin Aspart 1 vial 03/30/19 02:15 04/01/19 09:30 Novolog Vial Sliding Scale - SQ Not Given Q6H [facility] Protocol Isosorbide Mononitrate 30 mg 03/30/19 10:00 03/31/19 10:54 Imdur - PO 30 mg DAILY FORREST Administration Metoprolol Succinate 100 mg 03/30/19 10:00 03/31/19 10:53 Toprol Xl - PO 100 mg DAILY FORREST Administration Ondansetron HCl 4 mg 03/30/19 05:00 Zofran Injection IVPUSH Q8H PRN NAUSEA AND/OR VOMITING Pantoprazole Sodium 20 mg 03/30/19 10:00 03/31/19 10:54 Protonix - PO 20 mg DAILY FOR[facility] Administration Ranolazine 500 mg 03/30/19 10:00 03/31/19 21:49 Ranexa - PO 500 mg BID FORREST Administration Sevelamer Carbonate 800 mg 03/30/19 08:00 04/01/19 09:12 Renvela - PO Not Given TIDCM FORREST Tiotropium [place] 2 puff 03/30/19 10:00 03/31/19 10:55 Spiriva Respimat IH 2 puff DAILY FORREST Administration ASSESSMENT/PLAN: Araceli Crouch is an 88 year old female with a past medical history of ESRD (T,Th, Sat), COPD (on 2L NC), anemia, asthma, CHF, DM, GERD, HTN, HLD, afib (on Eliquis ), L incarcerated hernia and SBO s/p repair admitted for small bowel obstruction. #Small Bowel Obstruction-symptoms improving -in the setting of previous SBO and abdominal surgery -CT: SB dilation to the level of the left inguinal hernia compatible with sbo. There is wall thickening of the bowel within the hernia concerning for strangulation/ischemia. -NGT if develops n/v -AXR yesterday: may be undergoing partial resolution -FU todays UGIS -surgery on board. FU reccs. possible sx intervention. -NPO -held Eliquis #ESRD - nephrology consulted, dialysis - continue to monitor electrolytes #Constipation -CT scan: Large stool burden within the ascending colon and transverse colon suggesting constipation. -enema given yesterday. #Anemia - likely secondary to ESRD #COPD - continue home Trelelgy and albuterol prn Afib - hold Eliquis for potential surgical procedure - continue home hydralazine and metoprolol #DM - BGM - ISS - held home glargine due to patient being NPO and hypoglycemic #HTN - home amlodipine - on combination medication telmisartan but in ESRD, can consider alternative, medication not noted to be present on last discharge #HLD - continue home Lipitor #Noted Propotosis on CT scan - not well noted on physical exam - last TSH in March 2019 within normal limits #DVT PPx - SCDs - avoid chemical prophylaxis until cleared by surgery FEN -gentle hydraton d5 1/2ns -monitor -npo Visit type - Emergency Visit Emergency Visit: Yes ED Registration Date: 03/29/19 Care time: The patient presented to the Emergency Department on the above date and was hospitalized for further evaluation of their emergent condition. - New Patient This patient is new to me today: No - Critical Care Critical Care patient: No ATTENDING PHYSICIAN STATEMENT I saw and evaluated the patient. I reviewed the resident's note and discussed the case with the resident. I agree with the resident's findings and plan as documented. SUBJECTIVE: OBJECTIVE: ASSESSMENT AND PLAN:
[2019-04-01 14:50] LABS: BLOOD UREA NITROGEN 29.9 mg/dL (7-18); CALCIUM 8.4 mg/dL (8.5-10.1); CREATININE 5.1 mg/dL (0.55-1.3); POTASSIUM 4.1 mmol/L (3.5-5.1)
--- NOTE | 2019-04-01 15:00 | PN ---
Progress Note, Physician History of Present Illness: Pt seen and examined at bedside. She is tolerating HD. She feels abd pain is improved. - Current Medication List Current Medications: Active Medications Albuterol Sulfate (Ventolin 0.083% Nebulizer Soln -) 1 amp NEB RQID PRN PRN Reason: SHORT OF BREATH/WHEEZING Amlodipine Besylate (Norvasc -) 10 mg PO DAILY REPLACED BY [facility] Last Admin: 03/31/19 10:54 Dose: 10 mg Atorvastatin Calcium (Lipitor -) 20 mg PO HS REPLACED BY [facility] Last Admin: 03/31/19 21:49 Dose: 20 mg Budesonide/Formoterol Fumarate (Symbicort 80/4.5mcg -) 2 puff IH BID REPLACED BY [facility] Last Admin: 03/31/19 21:57 Dose: 2 puff Calcium Acetate (Phoslo -) 1,334 mg PO TIDCM REPLACED BY [facility] Last Admin: 04/01/19 09:12 Dose: Not Given Hydralazine HCl (Apresoline -) 100 mg PO BID REPLACED BY [facility] Last Admin: 03/31/19 21:49 Dose: 100 mg Dextrose/Sodium Chloride (D5-1/2ns -) 1,000 mls @ 42 mls/hr IV ASDIR REPLACED BY [facility] Last Admin: 03/31/19 12:12 Dose: 42 mls/hr Insulin Aspart (Novolog Vial Sliding Scale -) 1 vial SQ Q6H REPLACED BY [facility]; Protocol Last Admin: 04/01/19 09:30 Dose: Not Given Isosorbide Mononitrate (Imdur -) 30 mg PO DAILY REPLACED BY [facility] Last Admin: 03/31/19 10:54 Dose: 30 mg Metoprolol Succinate (Toprol Xl -) 100 mg PO DAILY REPLACED BY [facility] Last Admin: 03/31/19 10:53 Dose: 100 mg Ondansetron HCl (Zofran Injection) 4 mg IVPUSH Q8H PRN PRN Reason: NAUSEA AND/OR VOMITING Pantoprazole Sodium (Protonix -) 20 mg PO DAILY REPLACED BY [facility] Last Admin: 03/31/19 10:54 Dose: 20 mg Ranolazine (Ranexa -) 500 mg PO BID REPLACED BY [facility] Last Admin: 03/31/19 21:49 Dose: 500 mg Sevelamer Carbonate (Renvela -) 800 mg PO TIDCM REPLACED BY [facility] Last Admin: 04/01/19 09:12 Dose: Not Given Tiotropium Neal (Spiriva Respimat) 2 puff IH DAILY FORREST Last Admin: 03/31/19 10:55 Dose: 2 puff - Objective Vital Signs: Vital Signs Temperature 97.2 F L 04/01/19 12:50 Pulse Rate 85 04/01/19 14:00 Respiratory Rate 18 04/01/19 14:00 Blood Pressure 160/71 04/01/19 14:00 O2 Sat by Pulse Oximetry (%) 96 04/01/19 08:46 Constitutional: Yes: Calm Eyes: Yes: Conjunctiva Clear HENT: Yes: Atraumatic Cardiovascular: Yes: S1, S2 Respiratory: Yes: CTA Bilaterally Gastrointestinal: Yes: Tenderness Genitourinary: Yes: WNL Musculoskeletal: Yes: WNL Edema: No Neurological: Yes: Oriented Psychiatric: Yes: Oriented Labs: CBC, BMP 04/01/19 13:00 04/01/19 13:00 INR, PTT INR 1.00 (0.83-1.09) 03/30/19 05:30 Problem List - Problems (1) Atrial fibrillation Code(s): I48.91 - UNSPECIFIED ATRIAL FIBRILLATION Qualifiers: Atrial fibrillation type: paroxysmal Qualified Code(s): I48.0 - Paroxysmal atrial fibrillation (2) Small bowel obstruction Code(s): K56.609 - UNSP INTESTNL OBST, UNSP TO PARTIAL VERSUS COMPLETE OBST (3) ESRD (end stage renal disease) Code(s): N18.6 - END STAGE RENAL DISEASE Assessment/Plan Current Medications Generic Name Dose Route Start Last Admin Trade Name Freq PRN Reason Stop Dose Admin Albuterol Sulfate 1 amp 03/30/19 03:08 Ventolin 0.083% Nebulizer Soln - NEB RQID PRN SHORT OF BREATH/WHEEZING Amlodipine Besylate 10 mg 03/30/19 10:00 03/31/19 10:54 Norvasc - PO 10 mg DAILY FORREST Administration Atorvastatin Calcium 20 mg 03/30/19 22:00 03/31/19 21:49 Lipitor - PO 20 mg HS FORREST Administration Budesonide/Formoterol Fumarate 2 puff 03/30/19 10:00 03/31/19 21:57 Symbicort 80/4.5mcg - IH 2 puff BID FORREST Administration Calcium Acetate 1,334 mg 03/30/19 08:00 04/01/19 09:12 Phoslo - PO Not Given TIDCM FORREST Hydralazine HCl 100 mg 03/30/19 10:00 03/31/19 21:49 Apresoline - PO 100 mg BID FORREST Administration Dextrose/Sodium Chloride 1,000 mls @ 42 mls/hr 03/31/19 11:30 03/31/19 12:12 D5-1/2ns - IV 42 mls/hr ASDIR FORREST Administration Insulin Aspart 1 vial 03/30/19 02:15 04/01/19 09:30 Novolog Vial Sliding Scale - SQ Not Given Q6H REPLACED BY [facility] Protocol Isosorbide Mononitrate 30 mg 03/30/19 10:00 03/31/19 10:54 Imdur - PO 30 mg DAILY FORREST Administration Metoprolol Succinate 100 mg 03/30/19 10:00 03/31/19 10:53 Toprol Xl - PO 100 mg DAILY FORREST Administration Ondansetron HCl 4 mg 03/30/19 05:00 Zofran Injection IVPUSH Q8H PRN NAUSEA AND/OR VOMITING Pantoprazole Sodium 20 mg 03/30/19 10:00 03/31/19 10:54 Protonix - PO 20 mg DAILY FORREST Administration Ranolazine 500 mg 03/30/19 10:00 03/31/19 21:49 Ranexa - PO 500 mg BID FORREST Administration Sevelamer Carbonate 800 mg 03/30/19 08:00 04/01/19 09:12 Renvela - PO Not Given TIDCM FORREST Tiotropium Neal 2 puff 03/30/19 10:00 03/31/19 10:55 Spiriva Respimat IH 2 puff DAILY FORREST Administration Impression 1. ESRD 2. HTN 3. HLD 4. COPD 5. DM 6. pos heb b core 7. SBO 8. anemia 9. a-fib 10. hernia Plan - HD today - pt has been npo - will give clinimix - surgery follow up for plan - pt NPO - discussed with family
[2019-04-01] MEDS: PANTOPRAZOLE 20 MG TABLET PO SCH (17:09)
[2019-04-01] MEDS: hydrALAZINE HCL 50 MG TABLET (FP) PO SCH ×2 (17:10→22:18)
[2019-04-01] MEDS: ISOSORBIDE MONONITRATE 30 MG TAB.SR.24H (FP) PO SCH (17:10)
[2019-04-01] MEDS: DEXTROSE 5%-0.45% SALINE 1,000 ML IV SCH (17:10)
[2019-04-01] MEDS: RANOLAZINE E.R. 500 MG TABLET (FP) PO SCH ×2 (17:10→22:19)
[2019-04-01] MEDS: amLODIPine BESYLATE 10 MG TABLET (FP) PO SCH (17:10)
[2019-04-01] MEDS: TIOTROPIUM BROMIDE 2.5 MCG (SPIRIVA) RESPIMAT INHALER IH SCH (17:11)
[2019-04-01] MEDS: BUDESONIDE/FORMETEROL FUMARATE 80/4.5 mcg INHALER IH SCH ×2 (17:11→22:20)
[2019-04-01 17:23] LABS: BLOOD UREA NITROGEN 6.1 mg/dL (7-18); CREATININE 1.3 mg/dL (0.55-1.3)
[2019-04-01] MEDS: ATORVASTATIN CA 20 MG TABLET (FP) PO SCH (22:18)
[2019-04-02] MEDS: INSULIN SLIDING SCALE (NOVOLOG) 1 VIAL SQ SCH ×2 (02:12→09:10)
--- NOTE | 2019-04-02 07:55 | PN ---
Progress Note (short form) - Note Progress Note: 88yo F h/o sbo and recurrent inguinal hernia, pt seen and examined at bedside. Pt has UGI with small bowel followthrough, which showed no signs of obstruction. Pt was started on clears which she tolerated. Pt also reported to have BM yesterday per nursing. Pt complaining of some mile RLQ tenderness. Last Vital Signs Temp Pulse Resp BP Pulse Ox 98.3 F 87 20 138/62 99 04/02/19 06:00 04/02/19 06:00 04/02/19 06:00 04/02/19 06:00 04/01/19 21:00 CBC, BMP 04/01/19 13:00 04/01/19 16:00 PE: Gen: A&O X3 Resp: breathing comfortably Abd: soft, nondistended, mild RLQ tenderness. Problem List - Problems (1) Small bowel obstruction Assessment/Plan: Plan -SBO appears to be completely resolved, will adv diet -no need for surgical intervention at this time. -please contact surgical team if any acute changes. Pt discussed with Dr. Waggoner who agrees with plan Code(s): K56.609 - UNSP INTESTNL OBST, UNSP TO PARTIAL VERSUS COMPLETE OBST
[2019-04-02] MEDS: SEVELAMER CARBONATE 800 MG TAB (FP) PO SCH ×2 (09:09→11:24)
[2019-04-02] MEDS: amLODIPine BESYLATE 10 MG TABLET (FP) PO SCH (09:09)
[2019-04-02] MEDS: hydrALAZINE HCL 50 MG TABLET (FP) PO SCH (09:09)
[2019-04-02] MEDS: ISOSORBIDE MONONITRATE 30 MG TAB.SR.24H (FP) PO SCH (09:09)
[2019-04-02] MEDS: CALCIUM ACETATE 667 MG CAPSULE (FP) PO SCH ×2 (09:09→11:24)
[2019-04-02] MEDS: BUDESONIDE/FORMETEROL FUMARATE 80/4.5 mcg INHALER IH SCH (09:10)
[2019-04-02] MEDS: RANOLAZINE E.R. 500 MG TABLET (FP) PO SCH (09:10)
[2019-04-02] MEDS: TIOTROPIUM BROMIDE 2.5 MCG (SPIRIVA) RESPIMAT INHALER IH SCH (09:10)
[2019-04-02] MEDS: PANTOPRAZOLE 20 MG TABLET PO SCH (09:10)
[2019-04-02 09:16] VITALS: BP 128/59; PULSE 83; TEMP 98.7
--- NOTE | 2019-04-02 10:43 | DS ---
Physical Examination Vital Signs: Vital Signs Temperature 98.7 F 04/02/19 09:15 Pulse Rate 83 04/02/19 09:15 Respiratory Rate 20 04/02/19 09:15 Blood Pressure 128/59 L 04/02/19 09:15 O2 Sat by Pulse Oximetry (%) 99 04/01/19 21:00 eneral: Elderly female comfortable, not in distress HEENT; mucous membranes moist, no anemia, no jaundice, PERRLA, no nystagmus Neck: No JVD, supple, no bruit, thyroid palpably normal, normal carotid pulsations. Chest: Nontender, bilateral basal rales. CVS: S1-S2 regular no murmur/gallop/rub Abdomen: No distention, tenderness + BS + Extremities: No edema., No cough tenderness, pulses present LEGAL SUPPORT ASSISTANT: AO X3 , no gross motor sensory deficit Labs: CBC, BMP 04/01/19 13:00 04/01/19 16:00 Discharge Summary Problems reviewed: Yes Reason For Visit: EPIGASTRIC PAIN Current Active Problems Atrial fibrillation (Acute) COPD (chronic obstructive pulmonary disease) (Acute) Small bowel obstruction (Acute) Small bowel obstruction (Acute) Vomiting (Acute) Other Procedures: CT abdomen: SB dilation to the level of the left inguinal hernia compatible with sbo. There is wall thickening of the bowel within the hernia concerning for strangulation/ischemia. Large stool burden within the ascending colon and transverse colon suggesting constipation. Small bowel series: No obstruction, no hernia Hospital Course: 88 year old female with a past medical history of ESRD (T,Th,Sat), COPD (on 2L [place]), anemia, asthma, CHF, type II DM, GERD, HTN, HLD, afib (on Eliquis), L incarcerated hernia and SBO s/p repair (11/2018) presents with a 2-3 days history of abdominal pain, nausea, vomiting. CT abdomen shows small bowel obstruction, yesterday evaluated by surgery team small bowel series shows no obstruction or hernia. Cleared by karen to [place] Home patient is tolerating PO Condition: Stable - Instructions Diet, Activity, Other Instructions: low salt low cholestrol, Diabetic Please visit ED if c/o abd pain, nausea or vomiting O2 inhalation Referrals: Lucas Waggoner MD [Staff Physician] - 2 Weeks Zelda Reis MD [Staff Physician] - 1 Week Disposition: HOME - Home Medications Comprehensive Discharge Medication List: Ambulatory Orders Apixaban [Eliquis -] 2.5 mg PO BID tablet 06/13/18 Isosorbide Mononitrate [Imdur -] 30 mg PO DAILY tab.sr.24h 06/13/18 Sevelamer Carbonate [Renvela -] 800 mg PO TIDCM tab 06/13/18 Alendronate Sodium [Binosto] 70 mg PO WEEKLY 11/05/18 Atorvastatin Ca [Lipitor] 20 mg PO HS 11/05/18 Esomeprazole Magnesium 20 mg PO DAILY 11/05/18 Fluticasone/Umeclidin/Vilanter [Trelegy Ellipta 100-62.5-25] 1 each IH DAILY 07/19 Insulin Glargine,Hum.rec.anlog [Toujeo Solostar] 10 unit SQ DAILY 11/05/18 Metoprolol Succinate [Toprol XL -] 100 mg PO DAILY 11/05/18 Ondansetron [Zofran *Odt*] 4 mg SL DAILY 11/05/18 Ranolazine [Ranolazine ER] 500 mg PO BID 11/05/18 Albuterol 0.083% Nebulizer Amelia [Ventolin 0.083% Nebulizer Soln -] 1 amp NEB Q6H PRN amp 03/16/19 Calcium Acetate 2 tab PO TID 03/30/19 Hydralazine HCl 100 mg PO BID 03/30/19 Telmisartan/Amlodipine [Telmisartan-Amlodipine 80-10] 1 tab PO DAILY 03/30/19
--- NOTE | 2019-04-02 15:23 | PN ---
Progress Note, Physician History of Present Illness: Pt seen and examined at bedside. She is awake and alert. She tolerated her diet. She denies abd pain. - Objective Vital Signs: Vital Signs Temperature 98.7 F 04/02/19 09:15 Pulse Rate 83 04/02/19 09:15 Respiratory Rate 20 04/02/19 09:15 Blood Pressure 128/59 L 04/02/19 09:15 O2 Sat by Pulse Oximetry (%) 98 04/02/19 09:00 Constitutional: Yes: Calm Eyes: Yes: Conjunctiva Clear HENT: Yes: Atraumatic Neck: Yes: Supple Cardiovascular: Yes: S1, S2 Respiratory: Yes: CTA Bilaterally Gastrointestinal: Yes: Soft Genitourinary: Yes: WNL Musculoskeletal: Yes: WNL Edema: No Neurological: Yes: Oriented Psychiatric: Yes: Oriented Labs: CBC, BMP 04/01/19 13:00 04/01/19 16:00 INR, PTT INR 1.00 (0.83-1.09) 03/30/19 05:30 Problem List - Problems (1) Atrial fibrillation Code(s): I48.91 - UNSPECIFIED ATRIAL FIBRILLATION Qualifiers: Atrial fibrillation type: paroxysmal Qualified Code(s): I48.0 - Paroxysmal atrial fibrillation (2) Small bowel obstruction Code(s): K56.609 - UNSP INTESTNL OBST, UNSP TO PARTIAL VERSUS COMPLETE OBST (3) ESRD (end stage renal disease) Code(s): N18.6 - END STAGE RENAL DISEASE Assessment/Plan Impression 1. ESRD 2. HTN 3. HLD 4. COPD 5. DM 6. pos heb b core 7. SBO 8. anemia 9. a-fib 10. hernia Plan - pt has HD set up as outpt - instructed to return if she gets abd pain - discussed with family - renal diet - monitor bp
== END 2019-04-02 14:57 | disposition home health service (06) | DRG 388 ==
LOC: JER 16:48 → JERBED 23:31 → J7W 03-30 18:01
PROVIDERS: ADMIT Internal Medicine; ATTEND Internal Medicine
PROC: 5A1D70Z Performance of Urinary Filtration, Intermittent, Less than 6 Hours Per Day (ICD-10-PCS; principal; 2019-03-30)
PROC: 5A1D70Z Performance of Urinary Filtration, Intermittent, Less than 6 Hours Per Day (ICD-10-PCS; 2019-04-01)
DX: K56.609 Unspecified intestinal obstruction, unspecified as to partial versus complete obstruction (principal); N18.6 End stage renal disease; E43 Unspecified severe protein-calorie malnutrition; E87.1 Hypo-osmolality and hyponatremia; I13.2 Hypertensive heart and chronic kidney disease with heart failure and with stage 5 chronic kidney disease, or end stage renal disease; J44.9 Chronic obstructive pulmonary disease, unspecified; E78.5 Hyperlipidemia, unspecified; D64.9 Anemia, unspecified; K21.9 Gastro-esophageal reflux disease without esophagitis; D72.829 Elevated white blood cell count, unspecified; Z99.81 Dependence on supplemental oxygen; D69.6 Thrombocytopenia, unspecified; K59.09 Other constipation; E11.22 Type 2 diabetes mellitus with diabetic chronic kidney disease; I50.9 Heart failure, unspecified; I27.20 Pulmonary hypertension, unspecified; F03.90 Unspecified dementia, unspecified severity, without behavioral disturbance, psychotic disturbance, mood disturbance, and anxiety
CPT/HCPCS: 36415; 70450-TC; 74018-TC-FY; 74019-TC-FY; 74176-TC; 74250-TC-FY; 80048; 80053; 82565; 82962; 83605; 83690; 83735; 84100; 84484; 84520; 85025; 85027; 85610; 85730; 86850; 86900; 86901; 93005; 93010; 94640; 99285-25; J0131; J0885; J7030; Q5106

== ENCOUNTER 2019-10-23 20:53 | Inpatient (IN) | payer OTHER ==
[2019-10-23 21:23] VITALS: BMI 20.5
--- NOTE | 2019-10-23 22:12 | PDOC ---
History of Present Illness - General Chief Complaint: Pain, Acute Stated Complaint: ABD PAIN History Source: Patient Exam Limitations: Clinical Condition, Language Barrier - History of Present Illness Initial Comments: Miko Charles is a 89 F with a PMH of ESRD on HD (M/T/W), COPD on 2L NC at home, Anemia, asthma, CHF, DM, GERD, HTN, HLD, Afib on eliquis, L incarcerated hernia w/SBO s/p repair on 11/2018, presents with 1 days of abdominal pain, nausea and vomiting. Patient does not speak Egyptian and Hx was provided by her daughter at bedside. She reports that her mother was complaining of Abdominal pain, episodic. She reports that she witnessed about 4 episodes of NBNB vomits, but unsure how many times she vomited. LBM was today. She reports previous admission on 07/11/19, similar presentation. Daughter also reports that her mother seems to be a little more confused than her baseline. at baseline, she knows her name, able to verbalize, and aware of her surroundings. Previous admission 07/11/19-07/21/19: illeus/SBO 10/23/19 22:32 Past History - Travel History Traveled outside of the country in the last 30 days: No Close contact w/someone who was outside of country & ill: No - Medical History Allergies/Adverse Reactions: Allergies Allergy/AdvReac Type Severity Reaction Status Date / Time No Known Drug Allergies Allergy Verified 10/24/19 08:08 egg AdvReac Vomiting Verified 10/23/19 21:21 Home Medications: Ambulatory Orders Apixaban [Eliquis -] 2.5 mg PO BID tablet 06/13/18 Isosorbide Mononitrate [Imdur -] 30 mg PO DAILY tab.sr.24h 06/13/18 Sevelamer Carbonate [Renvela -] 800 mg PO TIDCM tab 06/13/18 Atorvastatin Ca [Lipitor] 20 mg PO HS 11/05/18 Metoprolol Succinate [Toprol XL -] 100 mg PO DAILY 11/05/18 Ondansetron [Zofran *Odt*] 8 mg SL DAILY PRN 11/05/18 Ranolazine [Ranolazine ER] 500 mg PO BID 11/05/18 Hydralazine HCl 100 mg PO BID 03/30/19 Telmisartan/Amlodipine [Telmisartan-Amlodipine 80-10] 1 tab PO DAILY 03/30/19 Albuterol Sulfate Inhaler - [Ventolin HFA Inhaler -] 1 puff IH TID PRN 10/24/19 Carvedilol [Coreg -] 1 tab PO BID 10/24/19 Famotidine [Pepcid -] 20 mg PO DAILY 10/24/19 LORazepam [Ativan] 0.5 mg PO DAILY PRN 10/24/19 levETIRAcetam [Keppra Xr -] 1 tab PO DAILY 10/24/19 Anemia: Yes Asthma: Yes Cancer: No Cardiac Disorders: No CVA: Yes COPD: Yes (home o2) CHF: Yes Dementia: No Diabetes: Yes Dialysis: Yes (M/W/F) GI Disorders: Yes (GERD) Disorders: Yes HTN: Yes Hypercholesterolemia: Yes Kidney Stones: Yes Liver Disease: No Seizures: No Thyroid Disease: No - Surgical History Abdominal Surgery: No Appendectomy: No Cardiac Surgery: No Cholecystectomy: No GI Surgery: Yes (Hernia repair 01/2019) Lung Surgery: No Neurologic Surgery: Yes (CRANIOTOMY 10YEARS AGO) Orthopedic Surgery: No - Reproductive History Is Patient Now?: No Cervical CA: No Dysfunctional Uterine Bleeding: No Ectopic : No Endometrial CA: No Polycystic Ovaries: No Therapeutic (s) & number: No Tubal Ligation: No - Immunization History Immunization Up to Date: Yes - Psycho-Social/Smoking History Smoking History: Never smoked Have you smoked in the past 12 months: No Number of Cigarettes Smoked Daily: 0 If you are a former smoker, when did you quit?: 50 YEARS Cigars Per Day: 0 Information on smoking cessation initiated: No - Substance Abuse Hx (Audit-C & DAST Scrn) How often the patient has a drink containing alcohol: Never Score: In Men: 4 or > Positive; In Women: 3 or > Positive: 0 Screen Result (Pos requires Nsg. Audit-10AR): Negative In the last yr the pt used illegal drug/Rx for NonMed reason: No Score: Yes response is considered Positive: 0 Screen Result (Positive result requires Nsg. DAST-10): Negative Review of Systems - Review of Systems Able to Perform ROS?: No (clinial condition) Is the patient limited Egyptian proficient: Yes Constitutional: No: Chills, Fever Respiratory: No: Shortness of Breath, Wheezing Cardiac (ROS): No: Chest Pain, Palpitations ABD/GI: Yes: Nausea, Poor Appetite, Poor Fluid Intake, Vomiting : No: Dysuria, Flank Pain *Physical Exam - Vital Signs Last Vital Signs Temp Pulse Resp BP Pulse Ox 98.2 F 96 H 18 139/72 100 10/23/19 21:21 10/23/19 21:21 10/23/19 21:21 10/23/19 21:21 10/23/19 21:21 - Physical Exam General Appearance: Yes: Mild Distress HEENT: negative: Scleral Icterus (R), Scleral Icterus (L), Nasal Congestion, Rhinorrhea Neck: positive: Supple. negative: Rigid, Lymphadenopathy (R), Lymphadenopathy (L) Respiratory/Chest: positive: Decreased Breath Sounds. negative: Respiratory Distress, Rales, Rhonchi Cardiovascular: positive: Regular Rate, S1, S2. negative: Edema, JVD, Murmur Vascular Pulses: Carotid (R): 2+, Carotid (L): 2+, Dorsalis-Pedis (R): 1+, Doralis-Pedis (L): 1+ Gastrointestinal/Abdominal: positive: Tender (TTP of RLQ and LLQ), Soft, Hernia (Left abdominal hernia). negative: Distended, Guarding Extremity: negative: Pedal Edema, Calf Tenderness Integumentary: positive: Normal Color, Dry Neurologic: positive: Respond to painful stimul, Responsive, Other (somnolent). negative: Fully Oriented ED Treatment Course - LABORATORY CBC & Chemistry Diagram: 10/23/19 22:40 10/24/19 08:50 Medical Decision Making - Medical Decision Making 10/23/19 22:44 89 F with a PMH of ESRD on HD (M/T/W), COPD on 2L NC at home, Anemia, asthma, CHF, DM, GERD, HTN, HLD, Afib on eliquis, L incarcerated hernia w/SBO s/p repair on 11/2018, presents with 1 days of abdominal pain, nausea and vomiting. #SBO - Previous Hx of SBO, Hx of incarcerated hernia - CBC, CMP, LAC acid, PT(INR), PTT - CXR, EKG - UA, urine culture 10/23/19 23:33 - CTAB: IV and PO contrast Discharge - Discharge Information Problems reviewed: Yes Clinical Impression/Diagnosis: Hx SBO, SBO (small bowel obstruction) - Follow up/Referral - Patient Discharge Instructions - Post Discharge Activity
[2019-10-23 22:47] LABS: BASO % 0.6 % (0-2.0); EOS % 0.5 % (0-4.5); HEMATOCRIT 37.1 % (32.4-45.2); HEMOGLOBIN 12.2 GM/dL (10.7-15.3); LYMPH % 10.7 % (8-40); MCH 28.5 pg (25.7-33.7); MCHC 32.9 g/dl (32.0-36.0); MEAN CELL VOLUME 86.5 fl (80-96); MEAN PLT VOLUME 8.7 fl (7.5-11.1); MONO % 6.4 % (3.8-10.2); NEUT % 81.8 % (42.8-82.8); PLATELET COUNT 200 K/MM3 (134-434); RBC 4.29 M/mm3 (3.60-5.2); RDW 14.6 % (11.6-15.6); WHITE BLOOD COUNT 8.1 K/mm3 (4.0-10.0)
[2019-10-23 22:51] LABS: EPI CELLS 7 /uL (0-25.1); HYALINE CASTS 1 /uL (0-3.1); PH,URINE >= 9.0 (5.0-8.0); URINE APPEARANCE CLEAR; URINE BACTERIA 4 /uL (0-1359); URINE BILIRUBIN NEGATIVE (NEGATIVE); URINE COLOR YELLOW; URINE GLUCOSE (UA) NEGATIVE (NEGATIVE); URINE KETONE NEGATIVE (NEGATIVE); URINE LEUK ESTERASE NEGATIVE (NEGATIVE); URINE NITRITE NEGATIVE (NEGATIVE); URINE PROTEIN 3+ (NEGATIVE); URINE RBC 6 /uL (0-23.9); URINE WBC 3 /uL (0-25.8)
[2019-10-23 23:14] LABS: ALBUMIN 4.3 g/dl (3.4-5.0); BILIRUBIN,TOTAL 0.7 mg/dL (0.2-1); BLOOD UREA NITROGEN 36.7 mg/dL (7-18); CALCIUM 10.3 mg/dL (8.5-10.1); CREATININE 5.2 mg/dL (0.55-1.3); MAGNESIUM 2.6 mg/dL (1.8-2.4); POTASSIUM 4.9 mmol/L (3.5-5.1); TOT PROT 7.5 g/dl (6.4-8.2)
--- NOTE | 2019-10-24 00:03 | PDOC ---
*Physical Exam - Vital Signs Last Vital Signs Temp Pulse Resp BP Pulse Ox 98.2 F 96 H 18 139/72 100 10/23/19 21:21 10/23/19 21:21 10/23/19 21:21 10/23/19 21:21 10/23/19 21:21 ED Treatment Course - LABORATORY CBC & Chemistry Diagram: 10/23/19 22:40 10/25/19 08:30 - ADDITIONAL ORDERS Additional order review: Laboratory Results 10/23/19 10/23/19 10/23/19 22:40 22:40 22:40 PT with INR INR PTT (Actin FS) Sodium 134 L Potassium 4.9 Chloride 95 L Carbon Dioxide 32 Anion Gap 7 L BUN 36.7 H Creatinine 5.2 H Est GFR (CKD-EPI)AfAm 7.88 Est GFR (CKD-EPI)NonAf 6.80 Random Glucose 145 H Lactic Acid 1.1 Calcium 10.3 H Phosphorus 4.0 Magnesium 2.6 H Total Bilirubin 0.7 AST 14 L ALT 14 Alkaline Phosphatase 81 Total Protein 7.5 Albumin 4.3 Urine Color Yellow Urine Appearance Clear Urine pH >= 9.0 H D Ur Specific Hickman 1.015 Urine Protein 3+ H Urine Glucose (UA) Negative Urine Ketones Negative Urine Blood Negative Urine Nitrite Negative Urine Bilirubin Negative Urine Urobilinogen 1.0 Ur Leukocyte Esterase Negative Urine WBC (Auto) 3 Urine RBC (Auto) 6 Urine Casts (Auto) 1 U Epithel Cells (Auto) 7 Urine Bacteria (Auto) 4 10/23/19 22:40 PT with INR Cancelled INR Cancelled PTT (Actin FS) Cancelled Sodium Potassium Chloride Carbon Dioxide Anion Gap BUN Creatinine Est GFR (CKD-EPI)AfAm Est GFR (CKD-EPI)NonAf Random Glucose Lactic Acid Calcium Phosphorus Magnesium Total Bilirubin AST ALT Alkaline Phosphatase Total Protein Albumin Urine Color Urine Appearance Urine pH Ur Specific Hickman Urine Protein Urine Glucose (UA) Urine Ketones Urine Blood Urine Nitrite Urine Bilirubin Urine Urobilinogen Ur Leukocyte Esterase Urine WBC (Auto) Urine RBC (Auto) Urine Casts (Auto) U Epithel Cells (Auto) Urine Bacteria (Auto) 10/23/19 22:40 RBC 4.29 MCV 86.5 MCHC 32.9 RDW 14.6 D MPV 8.7 D Neutrophils % 81.8 Lymphocytes % 10.7 D Monocytes % 6.4 Eosinophils % 0.5 Basophils % 0.6 Medical Decision Making - Medical Decision Making Pt signed out by Dr. Ibrahim. PCP is Reid Ortiz 89 F with a PMH of ESRD on HD (M/T/W), COPD on 2L NC at home, Anemia, asthma, CHF, DM, GERD, HTN, HLD, Afib on eliquis, L incarcerated hernia w/SBO s/p repair on 11/2018, presents with 1 day of abdominal pain, nausea and vomiting. labs: no leukocytosis, no anemia; elevated Cr (baseline), lactate WNL Pending CT A/P CT a/p: some fluid filled loops of ileum in pelvis but not definitely obstructed. could represent ileus. moderate stool burden, no free intraperitoneal air Pt reports improvement in abdominal pain, discussed admission with daughter who agreed to plan. Plan to admit for serial abdominal exams, surgery f/u Disposition Admit Discharge - Discharge Information Problems reviewed: Yes Clinical Impression/Diagnosis: Hx SBO, SBO (small bowel obstruction) Condition: Improved Disposition: VNS/HOME HEALTH CARE - Follow up/Referral - Patient Discharge Instructions - Post Discharge Activity
[2019-10-24 01:29] LABS: INR 0.89 (0.83-1.09); PROTHROMBIN TIME (PATIENT) 10.5 SEC (9.7-13.0)
[2019-10-24 01:31] LABS: ACTIVATED PTT 23.1 SECONDS (25.2-36.5)
--- NOTE | 2019-10-24 04:05 | PDOC ---
Documentation entered by Liana Dee SCRIBE, acting as scribe for Susy Wright MD. Susy Wright MD: This documentation has been prepared by the karinaeLuiz Sydney, SCRIBE, under my direction and personally reviewed by me in its entirety. I confirm that the documentation accurately reflects all work, treatment, procedures, and medical decision making performed by me. Attending Attestation - Resident Resident Name: PatriceArnie - ED Attending Attestation I have performed the following: I have examined & evaluated the patient, The case was reviewed & discussed with the resident, I agree w/resident's findings & plan, Exceptions are as noted - HPI HPI: 10/23/19 22:56 Patient is a 89 year old female with a significant past medical history of ESRD on HD (M/T/W), COPD on 2L NC at home, Anemia, asthma, CHF, DM, GERD, HTN, HLD, Afib on eliquis, L incarcerated hernia w/SBO s/p repair on 11/2018 who presents to the ED with one day of abdominal pain, nausea and vomiting. Patient does not speak Macanese and patients daughter provided the history at bedside. Patients daughter endorses her mother had been complaining of abdominal pain and witnessed 4 episodes of NBNB vomiting, but is unsure how many total episodes of vomiting. Daughter notes a previous admission to the hospital for similar symptoms. Denies headache, fever, chills, shortness of breath, chest pain, diarrhea, constipation, or urinary changes. Allergies: NKDA PCP: Dr. Marrufo - Physicial Exam PE: 10/24/19 20:19 agree with resident exam Pt has diffuse abdominal pain She is thin and weak appearing Pt has no pitting edema of lower extremities Pt is afebrile no flank pain HEENT normal - Medical Decision Making 10/23/19 23:16 Pt's CBC is normal Chem normal - chronic CKD. Pt's UA normal alaos 10/24/19 04:04 Patient Name: BRIAN ONEILL THIS IS A PRELIMINARY REPORT DATE OF SERVICE: 2019-10-24 00:43:23 IMAGES: [id number] EXAM: CT abdomen and pelvis without contrast HISTORY: Bladder ileus or obstruction. COMPARISON: CT March 29, 2019 FINDINGS: The exam is very limited due to the lack of intravenous contrast and because oral contrast has only flowed into the jejunum. There are some fluid-filled loops of ileum in the pelvis but these are not definitively obstructed. Could represent an ileus. However if there are clinical signs or symptoms of bowel obstruction recommend close follow-up/observation since this scan is limited. Moderate stool burden throughout the colon. No free intraperitoneal air. Trace ascites noted. Normal liver. Normal spleen. No acute pancreatic abnormalities are identified. No definite gallbladder abnormalities. Bilateral renal atrophy. Osseous structures are intact. Emphysematous changes at the lung bases predominantly right anterior. Cardiomegaly. Trace pericardial fluid. Discharge - Discharge Information Problems reviewed: Yes Clinical Impression/Diagnosis: Hx SBO, SBO (small bowel obstruction) - Follow up/Referral - Patient Discharge Instructions - Post Discharge Activity
--- NOTE | 2019-10-24 04:35 | PN ---
Teaching Attending Note Name of Resident: Alejo Tracy ATTENDING PHYSICIAN STATEMENT I saw and evaluated the patient. I reviewed the resident's note and discussed the case with the resident. I agree with the resident's findings and plan as documented. SUBJECTIVE: Patient is an 89 year old woman witha PMH of ESRD on hemodialysis, COPD (on O2 2 L at home), Subdural hematoma, Anemia, Asthma, HFpEF (LVEF 55%; 07/19/2019), NIDDM, GERD, HTN, HLD, Afib (on Eliquis) and Left incarcerated hernia with SBO (repair in 11/2018) who presents to the ER with one day of abdominal pain, nausea and vomiting. Patient does not speak Azeri and patients daughter provided the history at bedside. Patients daughter reports that her mother had been complaining of abdominal pain and she witnessed 4 bouts of NBNB vomiting. Patient was admitted on 07/11/2019 for similar symptoms and was found to have SBO that resolved without surgery. Her hospital stay was complicated by Staph epidermidis bacteremia. No reported chest pain, shortness of breath, headache, palpitations, dizziness, fever, chills, diarrhea, constipation, dysuria, frequency, urgency, melena, hematochezia or hematuria. No reported history of alcohol, tobacco or illicit drug use. No reported sick contacts or recent travels. Family history is unremarkable. OBJECTIVE: Alert Vital Signs Period Temp Pulse Resp BP Sys/Betancourt Pulse Ox Last 24 Hr 98.2 F-98.5 F 94-96 18-18 131-139/61-72 100-100 HEENT: No Jaundice, eye redness or discharge, PERRLA, EOMI. Normocephalic, atraumatic. External ears are normal and hearing is grossly intact. No nasal discharge. Neck: Supple, nontender. No palpable adenopathy or thyromegaly. No JVD Chest: Good effort. Clear to auscultation and percussion. Heart: Regular. No S3, rub or murmur Abdomen: Not distended, soft, lower abdominal tenderness, left side hernia and no HSM. No rebound or guarding. Normal bowel sounds. Ext: Peripheral pulses intact. No leg edema. Skin: Warm and dry. No petechiae, rash or ecchymosis. Neuro: Somnolent but readily arousable. Oriented to person. CN 2-12 grossly intact. Sensation grossly intact in all four extremities and DTR are symmetric. Psych: Unable to assess. Home Medications Medication Instructions Recorded Apixaban [Eliquis -] 2.5 mg PO BID tablet 06/13/18 Isosorbide Mononitrate [Imdur -] 30 mg PO DAILY tab.sr.24h 06/13/18 Sevelamer Carbonate [Renvela -] 800 mg PO TIDCM tab 06/13/18 Alendronate Sodium [Binosto] 70 mg PO WEEKLY 11/05/18 Atorvastatin Ca [Lipitor] 20 mg PO HS 11/05/18 Esomeprazole Magnesium 20 mg PO DAILY 11/05/18 Fluticasone/Umeclidin/Vilanter 1 each IH DAILY 11/05/18 [Trelegy Ellipta 100-62.5-25] Insulin Glargine,Hum.rec.anlog 10 unit SQ DAILY 11/05/18 [Toujeo Solostar] Metoprolol Succinate [Toprol XL -] 100 mg PO DAILY 11/05/18 Ondansetron [Zofran *Odt*] 4 mg SL DAILY 11/05/18 Ranolazine [Ranolazine ER] 500 mg PO BID 11/05/18 Albuterol 0.083% Nebulizer Amelia 1 amp NEB Q6H PRN amp 03/16/19 [Ventolin 0.083% Nebulizer Soln -] Calcium Acetate 2 tab PO TID 03/30/19 Hydralazine HCl 100 mg PO BID 03/30/19 Telmisartan/Amlodipine 1 tab PO DAILY 03/30/19 [Telmisartan-Amlodipine 80-10] Meropenem [Merrem (Restricted To 500 mg IVPB DAILY@1200 vial 07/21/19 Id) -] Vancomycin HCl in Dextrose 5 % 750 mg IV ASDIR 30 Days #1 ml 07/21/19 [Vancomycin 750 mg/150 ml Bag] Abnormal Lab Results 10/23/19 10/23/19 10/24/19 22:40 22:40 00:33 PTT (Actin FS) 23.1 L Sodium 134 L Chloride 95 L Anion Gap 7 L BUN 36.7 H Creatinine 5.2 H Random Glucose 145 H Calcium 10.3 H Magnesium 2.6 H AST 14 L Urine pH >= 9.0 H D Urine Protein 3+ H Current Medications Generic Name Dose Route Start Last Admin Trade Name Freq PRN Reason Stop Dose Admin Insulin Aspart 1 vial 10/24/19 07:00 Novolog Vial Sliding Scale - [facility] Protocol ASSESSMENT AND PLAN: 1. Abdominal pain/Rule out SBO - CT abdomen/pelvis without contrast FINDINGS: " The exam is very limited due to the lack of intravenous contrast and because oral contrast has only flowed into the jejunum. There are some fluid-filled loops of ileum in the pelvis but these are not definitively obstructed. Could represent an ileus. However if there are clinical signs or symptoms of bowel obstruction recommend close follow-up/observation since this scan is limited. Moderate stool burden throughout the colon. No free intraperitoneal air. Trace ascites noted. Normal liver. Normal spleen. No acute pancreatic abnormalities are identified. No definite gallbladder abnormalities. Bilateral renal atrophy. Osseous structures are intact. Emphysematous changes at the lung bases predominantly right anterior. Cardiomegaly. Trace pericardial fluid." Will keep her NPO, place NGT if vomiting persists, consult Surgery and discuss use of enema in this setting in view of "moderate stool burden", hold Eliquis pending Surgery consult and consult Nephrology for ESRD care. Viral testing for COVID-19 ordered and patient placed on airborne, droplet and contact isolation. Started on supplemental oxygen via nasal cannula. EKG shows NSR at 91/minute,1o AV block and QTc 447 with anterior infarct of undetermined age. Not significantly changed compared to prior EKG. Initial troponin is negative. Hypercalcemia may be iatrogenic. Will check PTH, phosphate and hold calcium and Vitamin D supplements. Hyponatremia likely partly due to hyperglycemia. Will limit free water intake and correct hyperglycemia. Will continue comprehensive care for all of patients comorbid conditions including Duoneb PRN for COPD. 2. DM For now, we will hold the home diabetes drugs and implement sliding scale insulin regimen. Provide comprehensive diabetes care with patient teaching and counseling about the importance of adherence to prescribed diabetes regimen, euglycemia, eye care and foot care. 3. Hypertension Will restart suitable outpatient antihypertensive drugs when clinically appropriate. Subsequently, will revise regimen to ensure [id number] excellent BP control. Patient counseled on the injurious effects of uncontrolled hypertension. Nonpharmacologic measures to control hypertension like weight loss, salt restriction and exercise stressed. Importance of adherence to treatment regimen and attainment of normotension emphasized. 4. Polypharmacy - Will liaise with patient's PCP to discontinue medications that are not absolutely essential. 5. DVT prophylaxis - SCD; hold Eliquis in case she needs surgery. 6. Advance directives - Full code
--- NOTE | 2019-10-24 06:24 | HP ---
CHIEF COMPLAINT: 1 Day of abdominal pain with nausea and NBNB vomiting PCP: Dr. Reid Marrufo HISTORY OF PRESENT ILLNESS: 89 year old female patient with past medical history that includes ESRD on HD, COPD on 2 lpm NC, Anemia, Asthma, CHF, DM, GERD, HTN, HLD, AFib on Eliquis, and previous SBO, who presented to the ED with 1 day of abdominal pain with nausea and NBNB vomiting. Since she came in, she reports that her abdominal pain is now much less with occasional cramping. The nausea is also resolved, and she has not vomited in the past several hours. She does report constipation where she passed yesterday a hard stool that had a small amount of bright red blood on it, which the patient thinks is from hemorrhoids. ER course was notable for: (1) CT A/P (2) (3) PAST MEDICAL HISTORY: ESRD on HD, COPD on 2 lpm NC, Anemia, Asthma, CHF, DM, GERD, HTN, HLD, AFib on Eliquis PAST SURGICAL HISTORY: Left incarcerated hernia with SBO s/p repair 2018, subdural hematoma surgery Social History: Smoking: Denied Alcohol: Denied Drugs: Denied Allergies egg Adverse Reaction (Verified 10/23/19 21:21) Vomiting HOME MEDICATIONS: Home Medications Medication Instructions Recorded Apixaban [Eliquis -] 2.5 mg PO BID tablet 06/13/18 Isosorbide Mononitrate [Imdur -] 30 mg PO DAILY tab.sr.24h 06/13/18 Sevelamer Carbonate [Renvela -] 800 mg PO TIDCM tab 06/13/18 Alendronate Sodium [Binosto] 70 mg PO WEEKLY 11/05/18 Atorvastatin Ca [Lipitor] 20 mg PO HS 11/05/18 Esomeprazole Magnesium 20 mg PO DAILY 11/05/18 Fluticasone/Umeclidin/Vilanter 1 each IH DAILY 11/05/18 [Treleeliot Ellipta 100-62.5-25] Insulin Glargine,Hum.rec.anlog 10 unit SQ DAILY 11/05/18 [Toucelia Solostar] Metoprolol Succinate [Toprol XL -] 100 mg PO DAILY 11/05/18 Ondansetron [Zofran *Odt*] 4 mg SL DAILY 11/05/18 Ranolazine [Ranolazine ER] 500 mg PO BID 11/05/18 Albuterol 0.083% Nebulizer Amelia 1 amp NEB Q6H PRN amp 03/16/19 [Ventolin 0.083% Nebulizer Soln -] Calcium Acetate 2 tab PO TID 03/30/19 Hydralazine HCl 100 mg PO BID 03/30/19 Telmisartan/Amlodipine 1 tab PO DAILY 03/30/19 [Telmisartan-Amlodipine 80-10] Meropenem [Merrem (Restricted To 500 mg IVPB DAILY@1200 vial 07/21/19 Id) -] Vancomycin HCl in Dextrose 5 % 750 mg IV ASDIR 30 Days #1 ml 07/21/19 [Vancomycin 750 mg/150 ml Bag] REVIEW OF SYSTEMS CONSTITUTIONAL: Absent: fever, chills HEENT: Absent: headache CARDIOVASCULAR: Absent: chest pain RESPIRATORY: shortness of breath improved when on nasal cannula Absent: GASTROINTESTINAL: constipation, occasional abdominal cramping, small amount of bright red blood on a hard stool which patient thinks is from hemorrhoids Absent: no longer nauseous, no vomiting GENITOURINARY: Absent: dysuria, frequency PHYSICAL EXAMINATION Vital Signs - 24 hr 10/23/19 10/23/19 10/24/19 21:21 22:09 03:19 Temperature 98.2 F 98.5 F Pulse Rate 96 H Pulse Rate [ 94 H Left Radial] Respiratory 18 18 Rate Blood Pressure 139/72 Blood Pressure 131/61 [Right Arm] O2 Sat by Pulse 100 100 100 Oximetry (%) GENERAL: Awake, alert, and fully oriented, in no acute distress. HEAD: Normal with no signs of trauma. EYES: Extraocular movements intact. No lid lag. EARS, NOSE, THROAT: Ears normal, nares patent, oropharynx clear without exudates. Moist mucous membranes. NECK: Normal range of motion, supple without lymphadenopathy, JVD, or masses. LUNGS: Breath sounds equal, clear to auscultation bilaterally. No wheezes, and no crackles. No accessory muscle use. HEART: Irregular rhythm, normal rate, normal S1 and S2 without murmur, rub or gallop. ABDOMEN: Soft, nontender to palpation in all quadrants, not distended, hyperactive bowel sounds with gurgling, no guarding, no rebound, no masses. No suprapubic tenderness. No epigastric tenderness. MUSCULOSKELETAL: Normal range of motion at all joints. No bony deformities or tenderness. UPPER EXTREMITIES: 2+ pulses, warm, well-perfused. No cyanosis. No clubbing. No peripheral edema. LOWER EXTREMITIES: 2+ pulses, warm, well-perfused. No calf tenderness. No peripheral edema. NEUROLOGICAL: Normal speech. Normal gait. PSYCHIATRIC: Cooperative. Good eye contact. Appropriate mood and affect. SKIN: Warm, dry, normal turgor, no rashes or lesions noted, normal capillary refill. Laboratory Results - last 24 hr 10/23/19 10/23/19 10/23/19 22:40 22:40 22:40 WBC 8.1 RBC 4.29 Hgb 12.2 Hct 37.1 D MCV 86.5 MCH 28.5 MCHC 32.9 RDW 14.6 D Plt Count 200 D MPV 8.7 D Absolute Neuts (auto) 6.6 Neutrophils % 81.8 Lymphocytes % 10.7 D Monocytes % 6.4 Eosinophils % 0.5 Basophils % 0.6 Nucleated RBC % 0 PT with INR Cancelled INR Cancelled PTT (Actin FS) Cancelled Sodium 134 L Potassium 4.9 Chloride 95 L Carbon Dioxide 32 Anion Gap 7 L BUN 36.7 H Creatinine 5.2 H Est GFR (CKD-EPI)AfAm 7.88 Est GFR (CKD-EPI)NonAf 6.80 Random Glucose 145 H Lactic Acid Calcium 10.3 H Phosphorus 4.0 Magnesium 2.6 H Total Bilirubin 0.7 AST 14 L ALT 14 Alkaline Phosphatase 81 Total Protein 7.5 Albumin 4.3 Urine Color Urine Appearance Urine pH Ur Specific [place] Urine Protein Urine Glucose (UA) Urine Ketones Urine Blood Urine Nitrite Urine Bilirubin Urine Urobilinogen Ur Leukocyte Esterase Urine WBC (Auto) Urine RBC (Auto) Urine Casts (Auto) U Epithel Cells (Auto) Urine Bacteria (Auto) Blood Type Antibody Screen 10/23/19 10/23/19 10/24/19 22:40 22:40 00:33 WBC RBC Hgb Hct MCV MCH MCHC RDW Plt Count MPV Absolute Neuts (auto) Neutrophils % Lymphocytes % Monocytes % Eosinophils % Basophils % Nucleated RBC % PT with INR 10.50 INR 0.89 PTT (Actin FS) 23.1 L Sodium Potassium Chloride Carbon Dioxide Anion Gap BUN Creatinine Est GFR (CKD-EPI)AfAm Est GFR (CKD-EPI)NonAf Random Glucose Lactic Acid 1.1 Calcium Phosphorus Magnesium Total Bilirubin AST ALT Alkaline Phosphatase Total Protein Albumin Urine Color Yellow Urine Appearance Clear Urine pH >= 9.0 H D Ur Specific [place] 1.015 Urine Protein 3+ H Urine Glucose (UA) Negative Urine Ketones Negative Urine Blood Negative Urine Nitrite Negative Urine Bilirubin Negative Urine Urobilinogen 1.0 Ur Leukocyte Esterase Negative Urine WBC (Auto) 3 Urine RBC (Auto) 6 Urine Casts (Auto) 1 U Epithel Cells (Auto) 7 Urine Bacteria (Auto) 4 Blood Type Antibody Screen 10/24/19 03:28 WBC RBC Hgb Hct MCV MCH MCHC RDW Plt Count MPV Absolute Neuts (auto) Neutrophils % Lymphocytes % Monocytes % Eosinophils % Basophils % Nucleated RBC % PT with INR INR PTT (Actin FS) Sodium Potassium Chloride Carbon Dioxide Anion Gap BUN Creatinine Est GFR (CKD-EPI)AfAm Est GFR (CKD-EPI)NonAf Random Glucose Lactic Acid Calcium Phosphorus Magnesium Total Bilirubin AST ALT Alkaline Phosphatase Total Protein Albumin Urine Color Urine Appearance Urine pH Ur Specific [place] Urine Protein Urine Glucose (UA) Urine Ketones Urine Blood Urine Nitrite Urine Bilirubin Urine Urobilinogen Ur Leukocyte Esterase Urine WBC (Auto) Urine RBC (Auto) Urine Casts (Auto) U Epithel Cells (Auto) Urine Bacteria (Auto) Blood Type A POSITIVE Antibody Screen Negative ASSESSMENT/PLAN: 89 year old female patient with past medical history that includes ESRD on HD, COPD on 2 lpm NC, Anemia, Asthma, CHF, DM, GERD, HTN, HLD, AFib on Eliquis, and previous SBO, who presented to the ED with 1 day of abdominal pain with nausea and NBNB vomiting. 1. r/o SBO - Abdominal pain with nausea and vomiting, now nearly completely resolved - History of past SBO - NPO - NG Tube if patient becomes nauseous and starts vomiting again - Consulted Surgery 2. ESRD on HD - Nephrology Consulted 3. Hypercalcemia - PTH - Phosphate - Holding Calcium and Vitamin D supplements 4. COPD - Duoneb PRN 5. HTN - Restart home meds when appropriate 6. DM - Novolog Sliding Scale 7. Polypharmacy - Patient has 17 medications, some of which may be able to be taken off # FEN - IV Fluids. Monitoring Electrolytes. DVT PPx - SCDs with Eliquis on hold in case of need of surgery Family Medical History Family History: Denies Visit type - Medication Review Med list reviewed for High Risk Meds patients 65 and older: Yes - Emergency Visit Emergency Visit: Yes Care time: The patient presented to the Emergency Department on the above date and was hospitalized for further evaluation of their emergent condition. - New Patient This patient is new to me today: Yes Date on this admission: 10/24/19 - Critical Care Critical Care patient: No ATTENDING PHYSICIAN STATEMENT I saw and evaluated the patient. I reviewed the resident's note and discussed the case with the resident. I agree with the resident's findings and plan as documented. SUBJECTIVE: OBJECTIVE: ASSESSMENT AND PLAN:
[2019-10-24] MEDS ORDERED: INSULIN SLIDING SCALE (NOVOLOG) 1 VIAL SQ SCH (07:00)
[2019-10-24] MEDS ORDERED: amLODIPine BESYLATE 5 MG TABLET (FP) ONE (08:38)
[2019-10-24] MEDS ORDERED: APIXABAN 2.5 MG TABLET ONE (08:38)
[2019-10-24] MEDS ORDERED: ISOSORBIDE MONONITRATE 60 MG TAB.SR.24H (FP) PO ONE (08:39)
[2019-10-24] MEDS ORDERED: VALSARTAN 80 MG TABLET (UD) ONE (08:39)
[2019-10-24] MEDS ORDERED: hydrALAZINE HCL 25 MG TABLET (FP) ONE (08:39)
[2019-10-24] MEDS: hydrALAZINE HCL 50 MG TABLET (FP) PO SCH ×2 (09:49→21:33)
[2019-10-24] MEDS: VALSARTAN 160 MG TABLET (UD) PO SCH (09:49)
[2019-10-24] MEDS: ISOSORBIDE MONONITRATE 30 MG TAB.SR.24H (FP) PO SCH (09:50)
[2019-10-24] MEDS: amLODIPine BESYLATE 10 MG TABLET (FP) PO SCH (09:50)
[2019-10-24] MEDS: APIXABAN 2.5 MG TABLET PO SCH ×2 (09:50→21:33)
[2019-10-24] MEDS: RANOLAZINE E.R. 500 MG TABLET (FP) PO SCH ×2 (09:50→21:33)
[2019-10-24] MEDS ORDERED: TELMISARTAN PO SCH (10:00)
[2019-10-24] MEDS ORDERED: AMLODIPINE PO SCH (10:00)
[2019-10-24] MEDS ORDERED: [UNRECOGNIZED DRUG - OTHER] PO SCH (10:00)
--- NOTE | 2019-10-24 11:10 | CONSULT ---
Consult Consult Specialty:: SURGERY Reason for Consultation:: r/o SBO - History of Present Illness Chief Complaint: ABDOMINAL PAIN History of Present Illness: 89 year old female patient with past medical history that includes ESRD on HD, COPD on 2 lpm NC, Anemia, Asthma, CHF, DM, GERD, HTN, HLD, AFib on Eliquis, and previous SBO, who presented to the ED with 1 day of abdominal pain with nausea and NBNB vomiting. Since she came in, she reports that her abdominal pain is now much less with occasional cramping. The nausea is also resolved, and she has not vomited in the past several hours. She does report constipation where she passed yesterday a hard stool that had a small amount of bright red blood on it, which the patient thinks is from hemorrhoids. 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 No: Asthma, Pulmonary Embolus, Sleep Apnea Gastrointestinal: Yes: GERD Renal/: Yes: Renal Inusuff, Hemodialysis, Renal Calculi (maybe- she had flank pain) ...LMP: 03/22/89 ...: No Endocrine: Yes: Diabetes Mellitus - Past Surgical History Past Surgical History: Yes: AV Fistula/Graft - Alcohol/Substance Use Hx Alcohol Use: No - Smoking History Smoking history: Never smoked Have you smoked in the past 12 months: No Aproximately how many cigarettes per day: 0 If you are a former smoker, when did you quit?: 50 YEARS - Social History Usual Living Arrangement: With Child Home Medications - Allergies Allergies/Adverse Reactions: Allergies Allergy/AdvReac Type Severity Reaction Status Date / Time No Known Drug Allergies Allergy Verified 10/24/19 08:08 egg AdvReac Vomiting Verified 10/23/19 21:21 - Home Medications Home Medications: Ambulatory Orders Apixaban [Eliquis -] 2.5 mg PO BID tablet 06/13/18 Isosorbide Mononitrate [Imdur -] 30 mg PO DAILY tab.sr.24h 06/13/18 Sevelamer Carbonate [Renvela -] 800 mg PO TIDCM tab 06/13/18 Alendronate Sodium [Binosto] 70 mg PO WEEKLY 11/05/18 Atorvastatin Ca [Lipitor] 20 mg PO HS 11/05/18 Esomeprazole Magnesium 20 mg PO DAILY 11/05/18 Fluticasone/Umeclidin/Vilanter [Trelegy Ellipta 100-62.5-25] 1 each IH DAILY 11/05/18 Insulin Glargine,Hum.rec.anlog [Toujeo Solostar] 10 unit SQ DAILY 11/05/18 Metoprolol Succinate [Toprol XL -] 100 mg PO DAILY 11/05/18 Ondansetron [Zofran *Odt*] 4 mg SL DAILY 11/05/18 Ranolazine [Ranolazine ER] 500 mg PO BID 11/05/18 Albuterol 0.083% Nebulizer Amelia [Ventolin 0.083% Nebulizer Soln -] 1 amp NEB Q6H PRN amp 03/16/19 Calcium Acetate 2 tab PO TID 03/30/19 Hydralazine HCl 100 mg PO BID 03/30/19 Telmisartan/Amlodipine [Telmisartan-Amlodipine 80-10] 1 tab PO DAILY 03/30/19 Meropenem [Merrem (Restricted To Id) -] 500 mg IVPB DAILY@1200 vial 07/21/19 Vancomycin HCl in Dextrose 5 % [Vancomycin 750 mg/150 ml Bag] 750 mg IV ASDIR 30 Days #1 ml 07/21/19 Physical Exam Vital Signs: Vital Signs Temperature 97.2 F L 10/24/19 09:34 Pulse Rate 89 10/24/19 09:34 Respiratory Rate 18 10/24/19 03:19 Blood Pressure 137/63 10/24/19 09:34 O2 Sat by Pulse Oximetry (%) 100 10/24/19 09:34 Constitutional: Yes: No Distress Eyes: Yes: Conjunctiva Clear HENT: Yes: Normocephalic Neck: Yes: Supple Cardiovascular: Yes: Pulse Irregular Respiratory: Yes: CTA Bilaterally Gastrointestinal: Yes: Soft, Tenderness (none) ...Rectal Exam: Yes: Deferred Neurological: Yes: Alert Labs: CBC, BMP 10/23/19 22:40 10/23/19 22:40 Imaging - Results Cat Scan: Report Reviewed, Image Reviewed Problem List - Problems (1) Abdominal pain Assessment/Plan: constipation No surgical intervention necessary Code(s): R10.9 - UNSPECIFIED ABDOMINAL PAIN
[2019-10-24] MEDS: INSULIN SLIDING SCALE (NOVOLOG) 1 VIAL SQ SCH ×2 (11:51→16:38)
[2019-10-24 12:17] LABS: BLOOD UREA NITROGEN 39.6 mg/dL (7-18); CALCIUM 9.5 mg/dL (8.5-10.1); CREATININE 5.6 mg/dL (0.55-1.3); POTASSIUM 4.9 mmol/L (3.5-5.1)
[2019-10-24] MEDS ORDERED: DOCUSATE NA 100 MG/10 ML UNIT-DOSE CUPS PO PRN (13:47)
[2019-10-24] MEDS ORDERED: LACTULOSE 20 GM/30 ML UDC (FOR ORAL USE ONLY) PO ONE (13:48)
[2019-10-24] MEDS ORDERED: LACTULOSE 20 GM/30 ML UDC (FOR ORAL USE ONLY) ONE (14:03)
[2019-10-24] MEDS ORDERED: LORazepam 0.5 MG TABLET PO PRN (14:09)
[2019-10-24] MEDS ORDERED: ALBUTEROL SO4 HFA INHALER IH PRN (14:09)
--- NOTE | 2019-10-24 14:15 | PN ---
Progress Note (short form) - Note Progress Note: Subjective: Encentuate glaze carrier was used but she is not able to cooperate due dementia and hearing difficulty . patient pointed at RLQ when asked about pain . per grand daughter who spoke to RN, patientis confused at her base line , possibly due to dementia Objective: Vital Signs: Last Vital Signs Temp Pulse Resp BP Pulse Ox 97.2 F L 89 18 137/63 100 10/24/19 09:34 10/24/19 09:34 10/24/19 03:19 10/24/19 09:34 10/24/19 09:34 Laboratory Results - last 24 hr 10/23/19 10/23/19 10/23/19 22:40 22:40 22:40 WBC 8.1 RBC 4.29 Hgb 12.2 Hct 37.1 D MCV 86.5 MCH 28.5 MCHC 32.9 RDW 14.6 D Plt Count 200 D MPV 8.7 D Absolute Neuts (auto) 6.6 Neutrophils % 81.8 Lymphocytes % 10.7 D Monocytes % 6.4 Eosinophils % 0.5 Basophils % 0.6 Nucleated RBC % 0 PT with INR Cancelled INR Cancelled PTT (Actin FS) Cancelled Sodium 134 L Potassium 4.9 Chloride 95 L Carbon Dioxide 32 Anion Gap 7 L BUN 36.7 H Creatinine 5.2 H Est GFR (CKD-EPI)AfAm 7.88 Est GFR (CKD-EPI)NonAf 6.80 POC Glucometer Random Glucose 145 H Lactic Acid Calcium 10.3 H Phosphorus 4.0 Magnesium 2.6 H Total Bilirubin 0.7 AST 14 L ALT 14 Alkaline Phosphatase 81 Total Protein 7.5 Albumin 4.3 Urine Color Urine Appearance Urine pH Ur Specific [place] Urine Protein Urine Glucose (UA) Urine Ketones Urine Blood Urine Nitrite Urine Bilirubin Urine Urobilinogen Ur Leukocyte Esterase Urine WBC (Auto) Urine RBC (Auto) Urine Casts (Auto) U Epithel Cells (Auto) Urine Bacteria (Auto) Blood Type Antibody Screen 10/23/19 10/23/19 10/24/19 22:40 22:40 00:33 WBC RBC Hgb Hct MCV MCH MCHC RDW Plt Count MPV Absolute Neuts (auto) Neutrophils % Lymphocytes % Monocytes % Eosinophils % Basophils % Nucleated RBC % PT with INR 10.50 INR 0.89 PTT (Actin FS) 23.1 L Sodium Potassium Chloride Carbon Dioxide Anion Gap BUN Creatinine Est GFR (CKD-EPI)AfAm Est GFR (CKD-EPI)NonAf POC Glucometer Random Glucose Lactic Acid 1.1 Calcium Phosphorus Magnesium Total Bilirubin AST ALT Alkaline Phosphatase Total Protein Albumin Urine Color Yellow Urine Appearance Clear Urine pH >= 9.0 H D Ur Specific [place] 1.015 Urine Protein 3+ H Urine Glucose (UA) Negative Urine Ketones Negative Urine Blood Negative Urine Nitrite Negative Urine Bilirubin Negative Urine Urobilinogen 1.0 Ur Leukocyte Esterase Negative Urine WBC (Auto) 3 Urine RBC (Auto) 6 Urine Casts (Auto) 1 U Epithel Cells (Auto) 7 Urine Bacteria (Auto) 4 Blood Type Antibody Screen 10/24/19 10/24/19 10/24/19 03:28 06:49 07:29 WBC RBC Hgb Hct MCV MCH MCHC RDW Plt Count MPV Absolute Neuts (auto) Neutrophils % Lymphocytes % Monocytes % Eosinophils % Basophils % Nucleated RBC % PT with INR INR PTT (Actin FS) Sodium Potassium Chloride Carbon Dioxide Anion Gap BUN Creatinine Est GFR (CKD-EPI)AfAm Est GFR (CKD-EPI)NonAf POC Glucometer 79 Random Glucose Lactic Acid Calcium Phosphorus 4.0 Magnesium Total Bilirubin AST ALT Alkaline Phosphatase Total Protein Albumin Urine Color Urine Appearance Urine pH Ur Specific [place] Urine Protein Urine Glucose (UA) Urine Ketones Urine Blood Urine Nitrite Urine Bilirubin Urine Urobilinogen Ur Leukocyte Esterase Urine WBC (Auto) Urine RBC (Auto) Urine Casts (Auto) U Epithel Cells (Auto) Urine Bacteria (Auto) Blood Type A POSITIVE Antibody Screen Negative 10/24/19 10/24/19 08:50 11:38 WBC RBC Hgb Hct MCV MCH MCHC RDW Plt Count MPV Absolute Neuts (auto) Neutrophils % Lymphocytes % Monocytes % Eosinophils % Basophils % Nucleated RBC % PT with INR INR PTT (Actin FS) Sodium 135 L Potassium 4.9 Chloride 95 L Carbon Dioxide 35 H Anion Gap 5 L BUN 39.6 H Creatinine 5.6 H Est GFR (CKD-EPI)AfAm 7.21 Est GFR (CKD-EPI)NonAf 6.22 POC Glucometer 96 Random Glucose 80 Lactic Acid Calcium 9.5 Phosphorus Magnesium Total Bilirubin AST ALT Alkaline Phosphatase Total Protein Albumin Urine Color Urine Appearance Urine pH Ur Specific [place] Urine Protein Urine Glucose (UA) Urine Ketones Urine Blood Urine Nitrite Urine Bilirubin Urine Urobilinogen Ur Leukocyte Esterase Urine WBC (Auto) Urine RBC (Auto) Urine Casts (Auto) U Epithel Cells (Auto) Urine Bacteria (Auto) Blood Type Antibody Screen Physical Exam: NAD, awake, alert, comfortable MMM. CV: RRR, no MRG Lungs: CTAB ABd: soft, ND, NT, normal BS . Ext : No edema or erythema on upper or lower extremities. Rectal exam with empty rectal vault . no tumors or hemorrhoids Imaging: CT scan image and reprot reviewed. Assessment/Plan: 89 y/o lady with h/o ESRD on hemodialysis, COPD (on O2 2L at home), Subdural hematoma, Anemia, Asthma, HFpEF , NIDDM, GERD, HTN, HLD, Afib, and Left incarcerated hernia with SBO ( s/p repair in 2019) , who presented with Abd pain. 1- Abd pain, could be due to constipation . no tenderness onj exam, and CT did show constipation . rectal vault is empty on rectal exam, and there is no signs of infection - will give laxatives to relive constipation - Looks euvolemic - Sx input noted. - cont home famotidine. just make it q48 hours for her Cr Cl - start full liquid diet 2- h/o HTN: resume her ARB, coreg, norvasc, and torpol 3- h/o A fib: cont toprol and eliquis 4- ESRD: Hd per schedule . renal consult . resume sevelamir 5- DM : last A1c 4.8 in 07/20 . per her pharmacy , she is not on insulin h/o Diastolic CHF: volume management with HD . dispo: PT eval. possible dc tomorrow if BM and abd pain is better Unable to reach her daughters over phone, message left. called [facility] and confirmed all her meds. list updated in EMR Visit type - Emergency Visit Emergency Visit: Yes ED Registration Date: 10/24/19 Care time: The patient presented to the Emergency Department on the above date and was hospitalized for further evaluation of their emergent condition. - New Patient This patient is new to me today: Yes Date on this admission: 10/24/19 - Critical Care Critical Care patient: No - Medication Review Med list reviewed for High Risk Meds patients 65 and older: Yes
[2019-10-24] MEDS ORDERED: FAMOTIDINE 20 MG TABLET PO SCH (14:30)
[2019-10-24] MEDS: SEVELAMER CARBONATE 800 MG TAB (FP) PO SCH (17:59)
--- NOTE | 2019-10-24 19:12 | CON.NEP ---
Consult Consult Specialty:: nephrology Referred by:: Demarcus Reason for Consultation:: ESRD for HD - History of Present Illness Chief Complaint: vomiting History of Present Illness: one day of abdominal pain, nausea and vomiting. Patient does not speak [place] and patients daughter provided the history at bedside. Patients daughter endorses her mother had been complaining of abdominal pain and witnessed 4 episodes of NBNB vomiting, but is unsure how many total episodes of vomiting. Daughter notes a previous admission to the hospital for similar symptoms. 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 No: Asthma, Pulmonary Embolus, Sleep Apnea Gastrointestinal: Yes: GERD Renal/: Yes: Renal Inusuff, Hemodialysis, Renal Calculi (maybe- she had flank pain) ...LMP: 03/22/89 ...: No Endocrine: Yes: Diabetes Mellitus - Past Surgical History Past Surgical History: Yes: AV Fistula/Graft - Alcohol/Substance Use Hx Alcohol Use: No - Smoking History Smoking history: Never smoked Have you smoked in the past 12 months: No Aproximately how many cigarettes per day: 0 If you are a former smoker, when did you quit?: 50 YEARS - Social History Usual Living Arrangement: With Child Home Medications - Allergies Allergies/Adverse Reactions: Allergies Allergy/AdvReac Type Severity Reaction Status Date / Time No Known Drug Allergies Allergy Verified 10/24/19 08:08 egg AdvReac Vomiting Verified 10/23/19 21:21 - Home Medications Home Medications: Ambulatory Orders Apixaban [Eliquis -] 2.5 mg PO BID tablet 06/13/18 Isosorbide Mononitrate [Imdur -] 30 mg PO DAILY tab.sr.24h 06/13/18 Sevelamer Carbonate [Renvela -] 800 mg PO TIDCM tab 06/13/18 Atorvastatin Ca [Lipitor] 20 mg PO HS 11/05/18 Metoprolol Succinate [Toprol XL -] 100 mg PO DAILY 11/05/18 Ondansetron [Zofran *Odt*] 8 mg SL DAILY PRN 11/05/18 Ranolazine [Ranolazine ER] 500 mg PO BID 11/05/18 Hydralazine HCl 100 mg PO BID 03/30/19 Telmisartan/Amlodipine [Telmisartan-Amlodipine 80-10] 1 tab PO DAILY 03/30/19 Albuterol Sulfate Inhaler - [Ventolin HFA Inhaler -] 1 puff IH TID PRN 10/24/19 Carvedilol [Coreg -] 1 tab PO BID 10/24/19 Famotidine [Pepcid -] 20 mg PO DAILY 10/24/19 LORazepam [Ativan] 0.5 mg PO DAILY PRN 10/24/19 levETIRAcetam [Keppra Xr -] 1 tab PO DAILY 10/24/19 Nephrology Consult - Height Height: 5 ft - Weight Weight: 105 lb - BMI Body Mass Index (BMI): 20.5 - Lab Results CBC,BMP: CBC, BMP 10/23/19 22:40 10/24/19 08:50 Anion Gap: Anion Gap Anion Gap 5 MMOL/L (8-16) L 10/24/19 08:50 - Physical Examination Vital Signs: Vital Signs Temperature 98.2 F 10/24/19 15:47 Pulse Rate 75 10/24/19 15:47 Respiratory Rate 18 10/24/19 15:47 Blood Pressure 108/58 L 10/24/19 15:47 O2 Sat by Pulse Oximetry (%) 94 L 10/24/19 15:47 Constitutional: Yes: Well Nourished, No Distress, Calm Eyes: Yes: WNL, Conjunctiva Clear, EOM Intact HENT: Yes: WNL, Atraumatic, Normocephalic Neck: Yes: WNL, Supple, Trachea Midline Cardiovascular: Yes: WNL, Regular Rate and Rhythm Respiratory: Yes: WNL, Regular, CTA Bilaterally Gastrointestinal: Yes: WNL, Normal Bowel Sounds Renal/: Yes: WNL Musculoskeletal: Yes: WNL Extremities: Yes: WNL Integumentary: Yes: WNL Neurological: Yes: WNL, Alert, Oriented Psychiatric: Yes: WNL, Alert, Oriented Assessment/Plan ESRD on HD admitted for eval of repeated vomiting seen by gen surgery Plan- HD maintenance
[2019-10-24] MEDS ORDERED: SODIUM CHLORIDE 250 ML IV PRN (20:50)
[2019-10-24] MEDS: CARVEDILOL 3.125 MG TABLET (FP) PO SCH (21:33)
[2019-10-24] MEDS ORDERED: ATORVASTATIN CA 20 MG TABLET (FP) PO SCH (22:00)
[2019-10-25] MEDS: INSULIN SLIDING SCALE (NOVOLOG) 1 VIAL SQ SCH ×3 (06:20→17:34)
[2019-10-25] MEDS: ISOSORBIDE MONONITRATE 30 MG TAB.SR.24H (FP) PO SCH (09:06)
[2019-10-25] MEDS ORDERED: PT OWN MED DRAWER 7, Y5N ONE (09:06)
[2019-10-25] MEDS: APIXABAN 2.5 MG TABLET PO SCH (09:06)
[2019-10-25] MEDS: amLODIPine BESYLATE 10 MG TABLET (FP) PO SCH (09:07)
[2019-10-25] MEDS: VALSARTAN 160 MG TABLET (UD) PO SCH (09:07)
[2019-10-25] MEDS: SEVELAMER CARBONATE 800 MG TAB (FP) PO SCH ×3 (09:07→17:26)
[2019-10-25] MEDS: hydrALAZINE HCL 50 MG TABLET (FP) PO SCH (09:07)
[2019-10-25] MEDS: RANOLAZINE E.R. 500 MG TABLET (FP) PO SCH (09:07)
[2019-10-25] MEDS: CARVEDILOL 3.125 MG TABLET (FP) PO SCH (09:07)
--- NOTE | 2019-10-25 09:45 | PN ---
Physical Exam: SUBJECTIVE: Patient seen and examined at bedside. No acute events overnight. Per nurse, no bowel movements yet. Pt still complaints of RUQ abd pain. Tolerating CLD. No f/c, n/v. OBJECTIVE: Vital Signs Period Temp Pulse Resp BP Sys/Betancourt Pulse Ox Last 24 Hr 97.9 F-99.7 F 68-79 18-20 97-135/49-64 94-100 GENERAL: Comfortable, well-appearing elderly female. NAD. HEENT: AT/NC. EOMI. Dry mucus membranes. NECK: Trachea midline, full range of motion, supple. LUNGS: CTA B/L. No wheezes/rales noted. HEART: RRR, normal S1, S2. ABDOMEN: Soft, mild TTP to deep palpation in b/l upper quadrants. +BS in all 4Qs. No masses, guarding or rebound tenderness. EXTREMITIES: 2+ pulses, warm, well-perfused, no edema. SKIN: Warm, dry, normal turgor, no rashes or lesions noted Laboratory Results - last 24 hr 10/24/19 10/24/19 10/24/19 08:50 11:38 17:07 Sodium 135 L Potassium 4.9 Chloride 95 L Carbon Dioxide 35 H Anion Gap 5 L BUN 39.6 H Creatinine 5.6 H Est GFR (CKD-EPI)AfAm 7.21 Est GFR (CKD-EPI)NonAf 6.22 POC Glucometer 96 93 Random Glucose 80 Calcium 9.5 10/24/19 10/25/19 21:33 06:19 Sodium Potassium Chloride Carbon Dioxide Anion Gap BUN Creatinine Est GFR (CKD-EPI)AfAm Est GFR (CKD-EPI)NonAf POC Glucometer 78 85 Random Glucose Calcium Active Medications Generic Name Dose Route Start Last Admin Trade Name Freq PRN Reason Stop Dose Admin Albuterol Sulfate 1 puff 10/24/19 14:09 Ventolin Hfa Inhaler - IH Q8H PRN SHORTNESS OF BREATH Amlodipine Besylate 10 mg 10/24/19 10:00 10/25/19 09:07 Norvasc - PO 10 mg DAILY [facility] Administration Apixaban 2.5 mg 10/24/19 10:00 10/25/19 09:06 Eliquis - PO 2.5 mg BID [facility] Administration Atorvastatin Calcium 20 mg 10/24/19 22:00 10/24/19 21:33 Lipitor - PO 20 mg HS [facility] Administration Carvedilol 3.125 mg 10/24/19 22:00 10/25/19 09:07 Coreg - PO 3.125 mg BID [facility] Administration Docusate Sodium 200 mg 10/24/19 13:47 10/25/19 09:07 Colace Liquid - PO 200 mg DAILY PRN Administration CONSTIPATION Famotidine 20 mg 10/24/19 14:30 10/24/19 15:00 Pepcid - PO 20 mg Q48H [facility] Administration Hydralazine HCl 100 mg 10/24/19 10:00 10/25/19 09:07 Apresoline - PO 100 mg BID [facility] Administration Sodium Chloride 250 mls @ 3,000 mls/hr 10/24/19 20:50 Normal Saline - IV 10/25/19 20:50 PRN PRN Hypotension during Dialysis Insulin Aspart 1 vial 10/24/19 11:00 10/25/19 06:20 Novolog Vial Sliding Scale - SQ Not Given TIDAC [facility] Protocol Isosorbide Mononitrate 30 mg 10/24/19 10:00 10/25/19 09:06 Imdur - PO 30 mg DAILY [facility] Administration Levetiracetam 500 mg 10/25/19 10:00 10/25/19 09:07 Keppra Xr - PO 500 mg DAILY [facility] Administration Lorazepam 0.5 mg 10/24/19 14:09 Ativan - PO DAILY PRN AGITATION Metoprolol Succinate 100 mg 10/24/19 10:00 10/25/19 09:07 Toprol Xl - PO 100 mg DAILY [facility] Administration Polyethylene Glycol 17 gm 10/25/19 10:00 10/25/19 09:08 Miralax (For Daily Use) - PO 17 gm DAILY [facility] Administration Ranolazine 500 mg 10/24/19 10:00 10/25/19 09:07 Ranexa - PO 500 mg BID [facility] Administration Sevelamer Carbonate 800 mg 10/24/19 17:30 10/25/19 09:07 Renvela - PO 800 mg TIDCM [facility] Administration Valsartan 320 mg 10/24/19 10:00 10/25/19 09:07 Diovan - PO 320 mg DAILY [facility] Administration ASSESSMENT/PLAN: 89 year old female patient with past medical history that includes ESRD on HD, COPD on 2 lpm NC, Anemia, Asthma, CHF, DM, GERD, HTN, HLD, AFib on Eliquis, and previous SBO, who presented to the ED with 1 day of abdominal pain with nausea and NBNB vomiting. #Abdominal Pain; suspect 2/2 constipation/fecal retention -CT findings showed fecal retention; no acute isses -Miralax 17 BID, Colace 200 for constipation; Lactulose given x1 yesterday -Cont to monitor for BM -Trial on FLD for now #HTN; Cont home meds: Diovan 320, Amlo 10, Toprol XL 100 #Afib; Cont home meds: Toprol XL 100, Eliquis 2.5 BID #ESRD; Cont HD schedule. Renal consulted. #DM; BGM/ISS ACHS #Prophylaxis DVT: On home Eliquis GI: Pepcid 20 q48h (renally adjusted) Dispo -cont to monitor on med-surg Visit type - Emergency Visit Emergency Visit: Yes ED Registration Date: 10/24/19 Care time: The patient presented to the Emergency Department on the above date and was hospitalized for further evaluation of their emergent condition. - New Patient This patient is new to me today: Yes Date on this admission: 10/25/19 - Critical Care Critical Care patient: No - Discharge Referral Referred to [facility] Med P.C.: No - Medication Review Med list reviewed for High Risk Meds patients 65 and older: Yes ATTENDING PHYSICIAN STATEMENT I saw and evaluated the patient. I reviewed the resident's note and discussed the case with the resident. I agree with the resident's findings and plan as documented. SUBJECTIVE: OBJECTIVE: ASSESSMENT AND PLAN:
[2019-10-25] MEDS ORDERED: FAMOTIDINE 20 MG TABLET PO SCH (10:00)
[2019-10-25] MEDS ORDERED: POLYETHYLENE GLYCOL 3350 119 GM BTL PO SCH ×2 (10:00)
[2019-10-25] MEDS ORDERED: levETIRAcetam XR 500 MG TAB PO SCH (10:00)
[2019-10-25 11:05] LABS: POTASSIUM 5.4 mmol/L (3.5-5.1)
--- NOTE | 2019-10-25 11:34 | PN ---
Teaching Attending Note Name of Resident: Yaquelin Nuno ATTENDING PHYSICIAN STATEMENT I saw and evaluated the patient. I reviewed the resident's note and discussed the case with the resident. I agree with the resident's findings and plan as documented. SUBJECTIVE: pt seen and examined OBJECTIVE: Last Vital Signs Temp Pulse Resp BP Pulse Ox 98.5 F 76 18 125/58 L 100 10/25/19 10:00 10/25/19 10:00 10/25/19 10:00 10/25/19 10:00 10/25/19 10:00 GENERAL: Awake, alert, and oriented, in no acute distress. HEAD: Normal with no signs of trauma. EYES: Pupils equal, round and reactive to light, sclera anicteric, conjunctiva clear. LUNGS: Breath sounds equal, clear to auscultation bilaterally. No wheezes, and no crackles. No accessory muscle use. HEART: Regular rate and rhythm, normal S1 and S2 ABDOMEN: Soft, nontender, not distended, BS++ MUSCULOSKELETAL: Normal range of motion at all joints. No bony deformities or tenderness. No CVA tenderness. LOWER EXTREMITIES: 2+ pulses, warm, well-perfused. No calf tenderness. No peripheral edema. CBCD WBC 8.1 K/mm3 (4.0-10.0) 10/23/19 22:40 RBC 4.29 M/mm3 (3.60-5.2) 10/23/19 22:40 Hgb 12.2 GM/dL (10.7-15.3) 10/23/19 22:40 Hct 37.1 % (32.4-45.2) D 10/23/19 22:40 MCV 86.5 fl (80-96) 10/23/19 22:40 MCHC 32.9 g/dl (32.0-36.0) 10/23/19 22:40 RDW 14.6 % (11.6-15.6) D 10/23/19 22:40 Plt Count 200 K/MM3 (134-434) D 10/23/19 22:40 MPV 8.7 fl (7.5-11.1) D 10/23/19 22:40 CMP Sodium 131 mmol/L (136-145) L 10/25/19 08:30 Potassium 5.4 mmol/L (3.5-5.1) H 10/25/19 08:30 Chloride 91 mmol/L (98-107) L 10/25/19 08:30 Carbon Dioxide 35 mmol/L (21-32) H 10/24/19 08:50 Anion Gap 5 MMOL/L (8-16) L 10/24/19 08:50 BUN 39.6 mg/dL (7-18) H 10/24/19 08:50 Creatinine 5.6 mg/dL (0.55-1.3) H 10/24/19 08:50 Calcium 9.5 mg/dL (8.5-10.1) 10/24/19 08:50 Total Bilirubin 0.7 mg/dL (0.2-1) 10/23/19 22:40 AST 14 U/L (15-37) L 10/23/19 22:40 ALT 14 U/L (13-61) 10/23/19 22:40 Alkaline Phosphatase 81 U/L (45-117) 10/23/19 22:40 Total Protein 7.5 g/dl (6.4-8.2) 10/23/19 22:40 Albumin 4.3 g/dl (3.4-5.0) 10/23/19 22:40 ASSESSMENT AND PLAN: 89 y/o lady with h/o ESRD on hemodialysis, COPD (on O2 2L at home), Subdural hematoma, Anemia, Asthma, HFpEF , NIDDM, GERD, HTN, HLD, Afib, and Left incarcerated hernia with SBO ( s/p repair in 2019) , who presented with Abd pain. # Abdominal pain -etiology: constipation, ischemic colitis -CT revealing constipation -Gentle hydration, Miralax BID -Looks euvolemic -start full liquid diet -surgery consult appreciated (no intervention) HTN Afib (on eliquis) ESRD DM (a1C 4.8, NOT ON INSULIN) HFpEF PT eval. Plan: Evaluate for discharge if symptoms improved and have BM
[2019-10-25 11:37] LABS: BLOOD UREA NITROGEN 50.3 mg/dL (7-18); CALCIUM 9.6 mg/dL (8.5-10.1); CREATININE 6.8 mg/dL (0.55-1.3); MAGNESIUM 2.6 mg/dL (1.8-2.4); PHOSPHOROUS 5.4 mg/dL (2.5-4.9)
--- NOTE | 2019-10-25 15:12 | PN ---
Physical Exam: SUBJECTIVE: Patient seen and examined. No acute events overnight. Pt still complaints of RUQ abd pain. OBJECTIVE: Vital Signs Period Temp Pulse Resp BP Sys/Betancourt Pulse Ox Last 24 Hr 97.9 F-98.5 F 68-83 18-20 94-135/50-69 94-100 GENERAL: AAOx3, in no acute distress HEENT: NCAT, PERRLA, EOMI, sclera anicteric, conjunctiva clear, oropharynx clear w/o exudates. MMM. NECK: Normal ROM, supple, no lymphadenopathy, JVD, or masses LUNGS: CTABL no wheezes/ rhonchi/ rales. No distress, speaks in full sentences. No increased work of breathing. HEART: RRR, normal S1 S2, no M/R/G, peripheral pulses 2+ and equal b/l ABDOMEN: Soft, mild TTP to deep palpation in b/l upper quadrants. +BS in all 4Qs. No masses, guarding or rebound tenderness. EXTREMITIES: Normal inspection. No peripheral edema. No clubbing or cyanosis. SKIN: Warm, Dry, normal turgor, no rashes or lesions noted Laboratory Results - last 24 hr 10/24/19 10/24/19 10/24/19 03:28 17:07 21:33 Sodium Potassium Chloride Carbon Dioxide Anion Gap BUN Creatinine Est GFR (CKD-EPI)AfAm Est GFR (CKD-EPI)NonAf POC Glucometer 93 78 Random Glucose Calcium Phosphorus Magnesium COVID-19 ([facility]) Not detected 10/25/19 10/25/19 06:19 08:30 Sodium 131 L Potassium 5.4 H Chloride 91 L Carbon Dioxide 28 Anion Gap 12 BUN 50.3 H Creatinine 6.8 H Est GFR (CKD-EPI)AfAm 5.70 Est GFR (CKD-EPI)NonAf 4.92 POC Glucometer 85 Random Glucose 74 Calcium 9.6 Phosphorus 5.4 H Magnesium 2.6 H COVID-19 ([facility]) Active Medications Generic Name Dose Route Start Last Admin Trade Name Freq PRN Reason Stop Dose Admin Albuterol Sulfate 1 puff 10/24/19 14:09 Ventolin Hfa Inhaler - IH Q8H PRN SHORTNESS OF BREATH Amlodipine Besylate 10 mg 10/24/19 10:00 10/25/19 09:07 Norvasc - PO 10 mg DAILY [facility] Administration Apixaban 2.5 mg 10/24/19 10:00 10/25/19 09:06 Eliquis - PO 2.5 mg BID [facility] Administration Atorvastatin Calcium 20 mg 10/24/19 22:00 10/24/19 21:33 Lipitor - PO 20 mg HS [facility] Administration Docusate Sodium 200 mg 10/24/19 13:47 10/25/19 09:07 Colace Liquid - PO 200 mg DAILY PRN Administration CONSTIPATION Famotidine 20 mg 10/24/19 14:30 10/24/19 15:00 Pepcid - PO 20 mg Q48H [facility] Administration Hydralazine HCl 100 mg 10/24/19 10:00 10/25/19 09:07 Apresoline - PO 100 mg BID [facility] Administration Sodium Chloride 250 mls @ 3,000 mls/hr 10/24/19 20:50 Normal Saline - IV 10/25/19 20:50 PRN PRN Hypotension during Dialysis Insulin Aspart 1 vial 10/24/19 11:00 10/25/19 12:19 Novolog Vial Sliding Scale - SQ Not Given TIDAC [facility] Protocol Isosorbide Mononitrate 30 mg 10/24/19 10:00 10/25/19 09:06 Imdur - PO 30 mg DAILY [facility] Administration Levetiracetam 500 mg 10/25/19 10:00 10/25/19 09:07 Keppra Xr - PO 500 mg DAILY [facility] Administration Lorazepam 0.5 mg 10/24/19 14:09 Ativan - PO DAILY PRN AGITATION Metoprolol Succinate 100 mg 10/24/19 10:00 10/25/19 09:07 Toprol Xl - PO 100 mg DAILY [facility] Administration Polyethylene Glycol 17 gm 10/25/19 10:00 10/25/19 09:53 Miralax (For Daily Use) - PO Not Given BID [facility] Ranolazine 500 mg 10/24/19 10:00 10/25/19 09:07 Ranexa - PO 500 mg BID [facility] Administration Sevelamer Carbonate 800 mg 10/24/19 17:30 10/25/19 12:19 Renvela - PO Not Given TIDCM [facility] Valsartan 320 mg 10/24/19 10:00 10/25/19 09:07 Diovan - PO 320 mg DAILY [facility] Administration ASSESSMENT/PLAN: 89 year old female patient with past medical history that includes ESRD on HD, COPD on 2 lpm NC, Anemia, Asthma, CHF, DM, GERD, HTN, HLD, AFib on Eliquis, and previous SBO, who presented to the ED with 1 day of abdominal pain with nausea and NBNB vomiting. #Abdominal Pain -suspect 2/2 constipation/fecal retention -CT findings showed fecal retention; no acute issues were noted -Miralax 17 BID, Colace 200 for constipation; Lactulose given x1 yesterday -Cont to monitor for BM -Trial on FLD for now -Pt sister was contacted who stated that the pt mental status at baseline is in and out #HTN -Cont home meds: Diovan 320, Amlo 10, Toprol XL 100 #Afib -Cont home meds: Toprol XL 100, Eliquis 2.5 BID #ESRD -Cont HD schedule. Renal consulted. -Patient is scheduled for dialysis today. #COPD -Duoneb PRN #DM -BGM/ISS ACHS #Prophylaxis DVT: On home Eliquis GI: Pepcid 20 q48h (renally adjusted) Dispo -cont to monitor on med-surg Visit type - Emergency Visit Emergency Visit: No - New Patient This patient is new to me today: Yes Date on this admission: 10/25/19 - Critical Care Critical Care patient: No - Discharge Referral Referred to [facility] Med P.C.: No - Medication Review Med list reviewed for High Risk Meds patients 65 and older: Yes ATTENDING PHYSICIAN STATEMENT I saw and evaluated the patient. I reviewed the resident's note and discussed the case with the resident. I agree with the resident's findings and plan as documented. SUBJECTIVE: OBJECTIVE: ASSESSMENT AND PLAN:
--- NOTE | 2019-10-25 16:35 | PN ---
Progress Note, Physician History of Present Illness: Pt seen and examined at bedside. She is tolerating HD. - Current Medication List Current Medications: Active Medications Albuterol Sulfate (Ventolin Hfa Inhaler -) 1 puff IH Q8H PRN PRN Reason: SHORTNESS OF BREATH Amlodipine Besylate (Norvasc -) 10 mg PO DAILY [facility] Last Admin: 10/25/19 09:07 Dose: 10 mg Documented by: Apixaban (Eliquis -) 2.5 mg PO BID [facility] Last Admin: 10/25/19 09:06 Dose: 2.5 mg Documented by: Atorvastatin Calcium (Lipitor -) 20 mg PO HS [facility] Last Admin: 10/24/19 21:33 Dose: 20 mg Documented by: Docusate Sodium (Colace Liquid -) 200 mg PO DAILY PRN PRN Reason: CONSTIPATION Last Admin: 10/25/19 09:07 Dose: 200 mg Documented by: Famotidine (Pepcid -) 20 mg PO Q48H [facility] Last Admin: 10/24/19 15:00 Dose: 20 mg Documented by: Hydralazine HCl (Apresoline -) 100 mg PO BID [facility] Last Admin: 10/25/19 09:07 Dose: 100 mg Documented by: Sodium Chloride (Normal Saline -) 250 mls @ 3,000 mls/hr IV PRN PRN PRN Reason: Hypotension during Dialysis Stop: 10/25/19 20:50 Insulin Aspart (Novolog Vial Sliding Scale -) 1 vial SQ TIDAC [facility]; Protocol Last Admin: 10/25/19 12:19 Dose: Not Given Documented by: Isosorbide Mononitrate (Imdur -) 30 mg PO DAILY [facility] Last Admin: 10/25/19 09:06 Dose: 30 mg Documented by: Levetiracetam (Keppra Xr -) 500 mg PO DAILY [facility] Last Admin: 10/25/19 09:07 Dose: 500 mg Documented by: Lorazepam (Ativan -) 0.5 mg PO DAILY PRN PRN Reason: AGITATION Metoprolol Succinate (Toprol Xl -) 100 mg PO DAILY [facility] Last Admin: 10/25/19 09:07 Dose: 100 mg Documented by: Polyethylene Glycol (Miralax (For Daily Use) -) 17 gm PO BID [facility] Last Admin: 10/25/19 09:53 Dose: Not Given Documented by: Ranolazine (Ranexa -) 500 mg PO BID [facility] Last Admin: 10/25/19 09:07 Dose: 500 mg Documented by: Sevelamer Carbonate (Renvela -) 800 mg PO TIDCM [facility] Last Admin: 10/25/19 12:19 Dose: Not Given Documented by: Valsartan (Diovan -) 320 mg PO DAILY [facility] Last Admin: 10/25/19 09:07 Dose: 320 mg Documented by: - Objective Vital Signs: Vital Signs Temperature 98.2 F 10/25/19 11:55 Pulse Rate 76 10/25/19 15:05 Respiratory Rate 18 10/25/19 15:05 Blood Pressure 129/58 L 10/25/19 15:05 O2 Sat by Pulse Oximetry (%) 100 10/25/19 10:00 Constitutional: Yes: Calm Eyes: Yes: Conjunctiva Clear HENT: Yes: Atraumatic Neck: Yes: Supple Cardiovascular: Yes: S1, S2 Respiratory: Yes: CTA Bilaterally Gastrointestinal: Yes: Normal Bowel Sounds, Soft Genitourinary: Yes: WNL Edema: No Neurological: Yes: Oriented Psychiatric: Yes: Oriented Labs: CBC, BMP 10/23/19 22:40 10/25/19 08:30 INR, PTT INR 0.89 (0.83-1.09) 10/24/19 00:33 Assessment/Plan Current Medications Generic Name Dose Route Start Last Admin Trade Name Freq PRN Reason Stop Dose Admin Albuterol Sulfate 1 puff 10/24/19 14:09 Ventolin Hfa Inhaler - IH Q8H PRN SHORTNESS OF BREATH Amlodipine Besylate 10 mg 10/24/19 10:00 10/25/19 09:07 Norvasc - PO 10 mg DAILY [facility] Administration Apixaban 2.5 mg 10/24/19 10:00 10/25/19 09:06 Eliquis - PO 2.5 mg BID [facility] Administration Atorvastatin Calcium 20 mg 10/24/19 22:00 10/24/19 21:33 Lipitor - PO 20 mg HS [facility] Administration Docusate Sodium 200 mg 10/24/19 13:47 10/25/19 09:07 Colace Liquid - PO 200 mg DAILY PRN Administration CONSTIPATION Famotidine 20 mg 10/24/19 14:30 10/24/19 15:00 Pepcid - PO 20 mg Q48H [facility] Administration Hydralazine HCl 100 mg 10/24/19 10:00 10/25/19 09:07 Apresoline - PO 100 mg BID [facility] Administration Sodium Chloride 250 mls @ 3,000 mls/hr 10/24/19 20:50 Normal Saline - IV 10/25/19 20:50 PRN PRN Hypotension during Dialysis Insulin Aspart 1 vial 10/24/19 11:00 10/25/19 12:19 Novolog Vial Sliding Scale - SQ Not Given TIDAC [facility] Protocol Isosorbide Mononitrate 30 mg 10/24/19 10:00 10/25/19 09:06 Imdur - PO 30 mg DAILY [facility] Administration Levetiracetam 500 mg 10/25/19 10:00 10/25/19 09:07 Keppra Xr - PO 500 mg DAILY [facility] Administration Lorazepam 0.5 mg 10/24/19 14:09 Ativan - PO DAILY PRN AGITATION Metoprolol Succinate 100 mg 10/24/19 10:00 10/25/19 09:07 Toprol Xl - PO 100 mg DAILY [facility] Administration Polyethylene Glycol 17 gm 10/25/19 10:00 10/25/19 09:53 Miralax (For Daily Use) - PO Not Given BID [facility] Ranolazine 500 mg 10/24/19 10:00 10/25/19 09:07 Ranexa - PO 500 mg BID [facility] Administration Sevelamer Carbonate 800 mg 10/24/19 17:30 10/25/19 12:19 Renvela - PO Not Given TIDCM [facility] Valsartan 320 mg 10/24/19 10:00 10/25/19 09:07 Diovan - PO 320 mg DAILY [facility] Administration Impression 1. ESRD 2. HTN 3. HLD 4. COPD 5. DM 6. pos heb b core 7. SBO 8. anemia 9. a-fib 10. 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
[2019-10-25 17:34] VITALS: BP 121/50; PULSE 72; TEMP 98.6
--- NOTE | 2019-10-25 18:01 | DS ---
Physical Exam: SUBJECTIVE: Patient seen and examined. No acute events overnight. Pt still complaints of RUQ abd pain. OBJECTIVE: Vital Signs Period Temp Pulse Resp BP Sys/Betancourt Pulse Ox Last 24 Hr 97.9 F-98.6 F 68-83 18-20 94-135/50-69 100-100 PHYSICAL EXAM GENERAL: AAOx3, in no acute distress HEENT: NCAT, PERRLA, EOMI, sclera anicteric, conjunctiva clear, oropharynx clear w/o exudates. MMM. NECK: Normal ROM, supple, no lymphadenopathy, JVD, or masses LUNGS: CTABL no wheezes/ rhonchi/ rales. No distress, speaks in full sentences. No increased work of breathing. HEART: RRR, normal S1 S2, no M/R/G, peripheral pulses 2+ and equal b/l ABDOMEN: Soft, mild TTP to deep palpation in b/l upper quadrants. +BS in all 4Qs. No masses, guarding or rebound tenderness. EXTREMITIES: Normal inspection. No peripheral edema. No clubbing or cyanosis. SKIN: Warm, Dry, normal turgor, no rashes or lesions noted LABS Laboratory Results - last 24 hr 10/24/19 10/24/19 10/24/19 03:28 08:50 21:33 Sodium Potassium Chloride Carbon Dioxide Anion Gap BUN Creatinine Est GFR (CKD-EPI)AfAm Est GFR (CKD-EPI)NonAf POC Glucometer 78 Random Glucose Calcium Phosphorus Magnesium PTH Intact 135 H COVID-19 ([facility]) Not detected 10/25/19 10/25/19 10/25/19 06:19 08:30 17:29 Sodium 131 L Potassium 5.4 H Chloride 91 L Carbon Dioxide 28 Anion Gap 12 BUN 50.3 H Creatinine 6.8 H Est GFR (CKD-EPI)AfAm 5.70 Est GFR (CKD-EPI)NonAf 4.92 POC Glucometer 85 90 Random Glucose 74 Calcium 9.6 Phosphorus 5.4 H Magnesium 2.6 H PTH Intact COVID-19 ([facility]) HOSPITAL COURSE: 89 year old female patient with past medical history that includes ESRD on HD, COPD on 2 lpm NC, Anemia, Asthma, CHF, DM, GERD, HTN, HLD, AFib on Eliquis, and previous SBO, who presented to the ED with 1 day of abdominal pain with nausea and NBNB vomiting. Her abdominal pain was suspected to be due to constipation/fecal retention. A CT study that was done showed fecal retention with no acute issues found on imaging. During her stay, she was given Miralax 17 BID, Colace 200, Lactulose, and a tap water enema. She was able to pass a bowel movement on the day of her discharge after a tap water enema. She also was taking her home meds for hypertension and atrial fibrillation during her stay. Her daughter was contacted who endorsed that the patient is constipated at baseline and only passes bowel once a week. Patient also received hemodialysis during her stay with us. She also used Duoneb PRN for her COPD during her stay and her diabetes was controlled with an insulin sliding scale. For DVT prophylaxis we continued the patient on her home Eliquis. Date of Admission:10/24/19 10/24/2019- CT Abdomen/Pelvis w/o contrast- fecal retention with no evidence of bowel obstruction or acute pathology within the abdomen or pelvis. Markedly limited study. Date of Discharge: 10/25/19 Minutes to complete discharge: 36 Discharge Summary Problems reviewed: Yes Reason For Visit: HISTORY OF SMALL BOWEL OBSTRUCTION Current Active Problems Abdominal pain (Acute) Constipation (Chronic) Condition: Improved - Instructions Diet, Activity, Other Instructions: Your visit: You were admitted to the hospital for abdominal pain. You were found to have constipation. You were treated with stool softners with improvement of your symptoms. Medications changes: -Please continue to take stool softeners. Senna 1 tab daily. Docusate 100mg daily. Miralax daily. goal for a BM every day. if no BM in 2 days, please use suppository. hold laxatives for diarrhea -Continue to take all other home medications as prescribed. Follow up: - Please follow-up with your horticulture worker Dr. Reis in 1 week. - Visit with your Primary Care Provider Dr. Garcia in 2 weeks. Additional Instructions: -You are being discharged to your home with visiting nursing services. -Please return to the Emergency Department if you experience worsening pain, fevers, chills, shortness of breath, or chest pain, or if you experience any worsening, new or concerning symptoms. stop taking coreg and follow up with your primary regarding that . coreg and metoprolol together can cause slowing of your heart rate Referrals: Macenat,Reid R [Primary Care Provider] - Zelda Reis MD [Staff Physician] - Disposition: VNS/HOME HEALTH CARE - Home Medications Comprehensive Discharge Medication List: Ambulatory Orders Apixaban [Eliquis -] 2.5 mg PO BID tablet 06/13/18 Isosorbide Mononitrate [Imdur -] 30 mg PO DAILY tab.sr.24h 06/13/18 Sevelamer Carbonate [Renvela -] 800 mg PO TIDCM tab 06/13/18 Atorvastatin Ca [Lipitor] 20 mg PO HS 11/05/18 Metoprolol Succinate [Toprol XL -] 100 mg PO DAILY 11/05/18 Ranolazine [Ranolazine ER] 500 mg PO BID 11/05/18 Hydralazine HCl 100 mg PO BID 03/30/19 Telmisartan/Amlodipine [Telmisartan-Amlodipine 80-10] 1 tab PO DAILY 03/30/19 Albuterol Sulfate Inhaler - [Ventolin HFA Inhaler -] 1 puff IH TID PRN 10/24/19 Famotidine [Pepcid -] 20 mg PO DAILY 10/24/19 LORazepam [Ativan] 0.5 mg PO DAILY PRN 10/24/19 levETIRAcetam [Keppra Xr -] 1 tab PO DAILY 10/24/19 Bisacodyl Suppository [Dulcolax Suppository -] 10 mg RC DAILY PRN #7 supp.rect 10/25/19 Docusate Liquid [Colace Liquid -] 100 mg PO DAILY #1 ud 10/25/19 Polyethylene Glycol 3350 [Miralax (For Bowel Prep) -] 17 gm PO DAILY #1 bottle 10/25/19 Sennosides [Senna] 8.6 mg PO DAILY #30 capsule 10/25/19 This patient is new to me today: No Emergency Visit: No Critical Care patient: No - Discharge Referral Referred to [facility] Med P.C.: No ATTENDING PHYSICIAN STATEMENT I saw and evaluated the patient. I reviewed the resident's note and discussed the case with the resident. I agree with the resident's findings and plan as documented. SUBJECTIVE: OBJECTIVE: ASSESSMENT AND PLAN:
--- NOTE | 2019-10-25 18:14 | HOSP ---
Subjective - Review of Symptoms Events since last encounter: pt seen and examined . she denies pain. daughter called and she concur that patient is better . exam showed soft abd , nl BS , No tenderness. had a small BM yesterday. gave enema today. dc home with a bowel regimen. she worked with PT. Physical Examination Vital Signs: Vital Signs Temperature 98.6 F 10/25/19 17:34 Pulse Rate 72 10/25/19 17:34 Respiratory Rate 20 10/25/19 17:34 Blood Pressure 121/50 L 10/25/19 17:34 O2 Sat by Pulse Oximetry (%) 100 10/25/19 10:00 Labs: CBC, BMP 10/23/19 22:40 10/25/19 08:30
--- NOTE | 2019-10-25 21:47 | EKG ---
Test Reason : Blood Pressure : / mmHG Vent. Rate : 091 BPM Atrial Rate : 091 BPM P-R Int : 214 ms QRS Dur : 098 ms QT Int : 364 ms P-R-T Axes : 086 089 073 degrees QTc Int : 447 ms SINUS RHYTHM WITH 1ST DEGREE A-V BLOCK CANNOT RULE OUT ANTERIOR INFARCT (CITED ON OR BEFORE 11-JUL-2019) POOR R PROGRESSION ABNORMAL ECG WHEN COMPARED WITH ECG OF 11-JUL-2019 08:20, PREMATURE ATRIAL COMPLEXES ARE NO LONGER PRESENT Confirmed by TYLER SAUER MD ([id number]) on 10/25/2019 9:47:18 PM Referred By: Confirmed By:TYLER SAUER MD
== END 2019-10-25 18:53 | disposition home health service (06) | DRG 391 ==
LOC: JER 20:53 → JERBED 10-24 03:01 → J8W 10-24 15:07
PROVIDERS: ADMIT Internal Medicine; ATTEND Student in an Organized Health Care Education/Training Program
PROC: 5A1D70Z Performance of Urinary Filtration, Intermittent, Less than 6 Hours Per Day (ICD-10-PCS; principal; 2019-10-25)
DX: K59.00 Constipation, unspecified (principal); N18.6 End stage renal disease; I13.2 Hypertensive heart and chronic kidney disease with heart failure and with stage 5 chronic kidney disease, or end stage renal disease; I50.32 Chronic diastolic (congestive) heart failure; E11.22 Type 2 diabetes mellitus with diabetic chronic kidney disease; Z99.2 Dependence on renal dialysis; D64.9 Anemia, unspecified; K21.9 Gastro-esophageal reflux disease without esophagitis; E78.5 Hyperlipidemia, unspecified; I48.91 Unspecified atrial fibrillation; Z79.01 Long term (current) use of anticoagulants; J44.9 Chronic obstructive pulmonary disease, unspecified; Z99.81 Dependence on supplemental oxygen; E83.52 Hypercalcemia
CPT/HCPCS: 36415; 74176-TC; 80048; 80053; 81003; 82306; 82962; 83605; 83735; 83970; 84100; 85025; 85610; 85730; 86803; 86850; 86900; 86901; 87086; 87340; 93005; 93010; 97116-GP; 97161-GP; 99285-25; U0003

== ENCOUNTER 2019-11-30 07:19 | Inpatient (IN) | payer OTHER ==
--- OUTSIDE RECORDS SUMMARY | 2019-11-30 07:41 | XMS ---
:1930 Author Organization [facility] Care Team Providers Name Role Phone [facility] Un[facility] Unavailable Re-disclosure Warning The records that you are about to access may contain information from federally- assisted alcohol or drug abuse programs. If such information is present, then the following federally mandated warning applies: This information has been disclosed to you from records protected by federal confidentiality rules (42 CFR part 2). The federal rules prohibit you from making any further disclosure of this information unless further disclosure is expressly permitted by the written consent of the person to whom it pertains or as otherwise permitted by 42 CFR part 2. A general authorization for the release of medical or other information is NOT sufficient for this purpose. The Federal rules restrict any use of the information to criminally investigate or prosecute any alcohol or drug abuse patient.The records that you are about to access may contain highly sensitive health information, the redisclosure of which is protected by Article 27-F of the [place] State Public Health law. If you continue you may haveaccess to information: Regarding HIV / AIDS; Provided by facilities licensed or operated by the [facility] Office of Mental Health; or Provided by the [facility] Office for People With Developmental Disabilities. If such information is present, then the following [facility] mandated warning applies: This information has been disclosed to you from confidential records which are protected by state law. State law prohibits you from making any further disclosure of this information without the specific written consent of the person to whom it pertains, or as otherwise permitted by law. Any unauthorized further disclosure in violation of state law may result in a fine or nursing home sentence or both. A general authorization for the release of medical or other information is NOT sufficient authorization for further disclosure. Encounters Encounter Providers Location Date Indications Data Source(s ) Outpatient Attender: [id number] 04/20/2019 [facility] 01:01:23 PM Care [place] [facility]) EST Patient admitted. Outpatient 05/12/2018 01:15:00 PM EDT [employer] [facility] Outpatient 05/12/2018 12:34:58 PM EDT - [facility] [employer] 05/12/2018 03:29:03 PM EDT [facility] Outpatient 05/12/2018 12:00:00 AM EDT [employer] [facility] Immunizations Vaccine Date Status Description Data Source(s) This CVX code 12/12/2017 completed Influenza 12/12/2017, [facility] allows reporting 12:00:00 AM EDT Vaccine 04/17/2016, [facility] of a vaccination 01/01/2016 [facility] when formulation [employer] is unknown (for example, when recording a Influenza vaccination when noted on a vaccination card) This CVX code 04/17/2016 completed Influenza 12/12/2017, [facility] allows reporting 12:00:00 AM EST Vaccine 04/17/2016, [facility] of a vaccination 01/01/2016 [facility] when formulation Sys [employer] Inc is unknown (for example, when recording a Influenza vaccination when noted on a vaccination card) This CVX code 01/01/2016 completed Influenza 12/12/2017, [facility] allows reporting 12:00:00 AM EDT Vaccine 04/17/2016, [facility] of a vaccination 01/01/2016 He al[facility] when formulation Sys [employer] Inc is unknown (for example, when recording a Influenza vaccination when noted on a vaccination card) Medications Medication Brand Start Product Dose Route [facility] Indications Reaction Description Data Name Date Form Instructions Instructions Source(s) Losartan red 05/04/ active TAKE 1 Bon Potassium an 2019 TABLET BY Jarrett rs 50 MG Oral (COZAA 12:00: MOUTH EVER Y [facility] Tablet R) 50 00 AM DAY Health losartan mg EST System Inc (COZAAR) 50 tablet mg tablet 200 ACTUAT albute 11/04/ Inhala active Take 2 Puffs Bon Albuterol rol 2018 {puff tion [facility] 0.09 (DAMARIS 12:00: } inhalation Johana ty MG/ACTUAT RAYNA 00 AM every six Heal Metered HFA) EDT (6) hours as Syst em Inc Dose 90 needed for Inhaler mcg/ac Wheezing. [Ventolin] tuatio albuterol n (VENTOLIN inhale HFA) 90 r mcg/actuati on inhaler Hydralazine BIDIL 07/29/ active TAKE 1 B on Hydrochlori 20-37. 2017 TABLET BY S chiquiurs de 37.5 MG 5 mg 12:00: MOUTH THREE [facility] / per 00 AM TIMES A DAY Health Isosorbide tablet EDT System Inc Dinitrate 20 MG Oral Tablet [Bidil] BIDIL 20-37.5 mg per tablet pregabalin LYRICA 07/23/ active 1 CAPSUL E 1 Bon 75 MG Oral 75 mg 2018 TO 3 HOURS Se cours Capsule capsul 12:00: BEFORE Charit y [Lyrica] e 00 AM BEDTIME IN LYRICA 75 EDT THE EVENING Sys tem Inc mg capsule ONCE A DAY AT BEDTIME ORALLY 30 DAYS Levalbutero levalb 07/22/ active 3 ML IN Bon l 0.417 uterol 2018 NEBULIZER Sec[facility] rs MG/ML (XOPEN 12:00: MACHINE [facility] Inhalant EX) 00 AM EVERY 8 HRS Hea lth Solution 1.25 EDT INHALATION Syste m Inc levalbutero mg/3 30 DAYS l (XOPENEX) mL 1.25 mg/3 nebu mL nebu sevelamer RENVEL 07/02/ active TAKE 1 Jamie n carbonate A 800 2017 TABLET BY [facility] 800 MG Oral mg tab 12:00: MOUTH THR EE [facility] Tablet tab 00 AM TIMES A DAY Healt h [Renvela] EDT System Inc RENVELA 800 mg tab tab TRELEGY Treleg 07/01/ active TAKE 1 PUFF Bon ELLIPTA y 2018 BY MOUTH [facility] 100-62.5-25 Ellipt 12:00: EVERY DAY [facility] mcg dsdv a 100 00 AM Health McG-62 EDT System Inc .5 McG-25 McG Powder For Inhala tion Calcitriol calcit 06/25/ active TAKE 1 B on 0.57317 MG RIOL 2018 CAPSULE BY Sec pedro Oral (ROCAL 12:00: MOUTH MON, Johana ty Capsule TROL) 00 AM FRI & FRIDAY He alth calcitRIOL 0.25 EDT System In c (ROCALTROL) mcg 0.25 mcg capsul capsule e Acetaminoph traMAD 02/03/ active TAKE 1 Bon en 325 MG / ol-landon 2016 TABLET BY S betty tramadol tamino 12:00: MOUTH EVERY [facility] hydrochlori phen 00 AM 6 HOURS H ealth de 37.5 MG (ULTRA EST NEEDED Syste m Inc Oral Tablet CET) traMADol-ac 37.5-3 etaminophen 25 mg (ULTRACET) per 37.5-325 mg tablet per tablet 7 ACTUAT umecli Inhala aborted Take 1 Puff Bon umeclidiniu dinium 2016 {puff tion by Jarrett rs m 0.0625 (INCRU 12:00: } inhalation C harity MG/ACTUAT SE 00 AM daily. To Heal Dry Powder ELLIPT EDT replace Syst em Inc Inhaler A) Spiriva [Incruse] 62.5 umeclidiniu mcg/ac m (INCRUSE tuatio ELLIPTA) n 62.5 inhale mcg/actuati r on inhaler Atenolol 25 atenol 01/23/ active Jamie n MG Oral ol 2015 [facility] Tablet (TENOR 12:00: [facility] atenolol MIN) 00 AM Health (TENORMIN) 25 mg EST System I nc 25 mg tablet tablet valsartan valsar 01/08/ active TAKE 1 Jamie n 160 MG Oral su 2015 TABLET BY Ady vasquez Tablet (DIOVA 12:00: MOUTH EVERY Ch arity valsartan N) 160 00 AM DAY Health (DIOVAN) mg EST System Inc 160 mg tablet tablet 24 HR metopr 01/08/ active TAKE 1 Bon metoprolol olol 2015 TABLET BY Ziggy urs succinate succin 12:00: MOUTH EVERY [facility] 50 MG ate 00 AM DAY Health Extended (TOPRO EST System In c Release L-XL) Oral Tablet 50 mg metoprolol XL succinate tablet (TOPROL-XL) 50 mg XL tablet Amlodipine amLODI 01/05/ active TAKE 1 B on 10 MG Oral Marathon 2015 TABLET BY Seco urs Tablet (NORVA 12:00: MOUTH EVERY Ch arity amLODIPine SC) 10 00 AM DAY Health (NORVASC) mg EDT System Inc 10 mg tablet tablet pantoprazol pantop 12/25/ active TAKE 1 Bon e 40 MG razole 2015 TABLET TWICE Se cours Delayed (MAURICIO 12:00: A DAY [facility] Release NIX) 00 AM Health Oral Tablet 40 mg EDT System Inc pantoprazol tablet e (PROTONIX) 40 mg tablet Albuterol albute 11/03/ 2.5 Nebuli active 3 mL by Bon 0.83 MG/ML rol 2015 mg zation Nebulization [facility] Inhalant (PROVE 12:00: route four C harity Solution NTIL 00 AM (4) times Healt h albuterol VENTOL EDT daily as Syst em Inc (PROVENTIL IN) needed for VENTOLIN) 2.5 mg Wheezing. 2.5 mg /3 /3 mL mL (0.083 (0.083 %) %) nebulizer nebuli solution zer soluti on potassium Potass 20 Oral active Take 20 mEq Bon chloride ium meq by mouth two Sec [facility] (KLOR-CON) Chlori (2) times a [facility] 20 mEq de 20 day. Health packet Meq System Inc Oral Packet For Soluti on Glipizide 5 glipiZ Oral active Take by Bon MG Oral KEL mouth two [facility] Tablet (GLUCO (2) times a Rita ity glipiZIDE TROL) day. Health (GLUCOTROL) 5 mg System I nc 5 mg tablet tablet Rosuvastati rosuva 20 mg Oral active Take 20 mg Bon n calcium statin by mouth Sec[facility] 20 MG Oral (CREST nightly. Ramila rity Tablet OR) 20 Health [Crestor] mg System Inc rosuvastati tablet n (CRESTOR) 20 mg tablet Furosemide furose 80 mg Oral active Take 80 m g Bon 40 MG Oral mide by mouth Sec[facility] rs Tablet (LASIX daily. [facility] furosemide ) 40 Health (LASIX) 40 mg System In c mg tablet tablet Omeprazole Omepra 20 mg Oral active Take 20 m g Bon 20 MG zole by mouth [facility] Delayed delaye daily. [facility] Release d Health Oral Tablet releas System Inc Omeprazole e delayed (PRILO release SEC (PRILOSEC D/R) D/R) 20 mg 20 mg tablet tablet Insurance Providers Payer name Policy type Policy ID Covered Covered constitution party's Policy P dilan / Coverage constitution party ID relationship to Garay Inf ormation type garay MEDICARE [id number] SP [id number] MEDICAID [id number] SP [id number] MEDICARE [id number] SP [id number] MEDICARE [id number] SP [id number] [place] [id number] [place]ICA[place] OF [id number] [place] [id number] [place] [id number] [place] [id number] Problems, Conditions, and Diagnoses Code Display Name Description Problem Type Effective Data Dates Source(s) J45.909 Asthma Asthma [id number] 11/03/2014 [facility] 12:00:00 AM [facility] [employer] Calendly J44.9 COPD (chronic COPD (chronic [id number] 11/03/2014 [facility] obstructive obstructive 12:00:00 AM [facility] pulmonary disease) pulmonary disease) 66. com E78.5 Hyperlipidemia Hyperlipidemia [id number] 11/03/2014 [facility] 12:00:00 AM [facility] 66. com I10 Hypertension Hypertension [id number] 11/03/2014 [place] [facility] 12:00:00 AM [facility] [employer] [facility] E11.9 Diabetes Diabetes [id number] 11/03/2014 [facility] 12:00:00 AM [facility] [employer] [facility] J44.9 Chronic obstructive Chronic obstructive Diagnosis 019 [facility] pulmonary disease, pulmonary disease, 12:34:58 PM [facility] unspecified unspecified [employer] [facility] Results ID Date Data Source [id number] 10/24/2019 03:28:00 AM EDT [facility] Name Value Range Interpretation Description Data Sup porting Code Source(s) Document(s ) SARS [facility] coronavirus 2 RNA This lab was ordered by [facility] and reported by [facility]. ID Date Data Source [id number] 07/11/2019 09:12:00 AM EDT [facility] Name Value Range Interpretation Description Data Sup porting Code Source(s) Document(s ) SARS [facility] CORONAVIRUS 2 RNA This lab was ordered by [facility] and reported by [facility]. Procedure Social History Code Duration Value Status Description Data Source(s ) Smoking 05/12/2018 Former smoker completed Former smoker [facility] 12:00:00 AM [employer] Smoking Unknown if ever completed Unknown if ever Eloy Garcia smoked smoked [facility] 03/03/1984 Current smoker completed Current smoker [facility] 12:00:00 AM [employer] Vital Signs ID Date Data Source UNK Name Value Range Interpretation Code Description Data Source(s) Oxygen saturation 100 % 100 % [facility] in Arterial blood Results [employer] [facility] [employer] Body mass index 22.31 kg/m2 22.31 kg/m2 [facility] (BMI) [Ratio] [employer] Body weight 55.339 kg 55.339 kg [facility] [employer] Body temperature 36.33 Olivia 36.33 Olivia [facility] [employer] Heart rate 84 /min 84 /min [facility] [employer] Diastolic blood 60 mm[Hg] 60 mm[Hg] [facility] pressure [employer] Systolic blood 130 mm[Hg] 130 mm[Hg] [place] [facility] pressure [employer] Patient Treatment Plan of Care Planned Activity Planned Date Details Description Data Source (s) Losartan Potassium 50 MG 05/04/2018 12:00:00 [facility] Oral Tablet AM [employer] System I nc 200 ACTUAT Albuterol 0.09 11/04/2017 12:00:00 [facility] MG/ACTUAT Metered Dose AM [facility] Inhaler [Ventolin] Hydralazine Hydrochloride 07/29/2017 12:00:00 [facility] 37.5 MG / Isosorbide AM [employer] Dinitrate 20 MG Oral Tablet [Bidil] pregabalin 75 MG Oral 07/23/2017 12:00:00 [facility] Capsule [Lyrica] [employer] [facility] Levalbuterol 0.417 MG/ML 07/22/2017 12:00:00 [facility] Inhalant Solution AM [employer] Sys tem Inc sevelamer carbonate 800 07/02/2017 12:00:00 Bon Beverley [facility] MG Oral Tablet [Renvela] AM [facility] TRELEAMMON ELLIPTA 07/01/2017 12:00:00 Bon S betty Tsang 100-62.5-25 mcg dsdv AM [employer] [facility] [employer] Calcitriol 0.78185 MG 06/25/2017 12:00:00 [facility] Oral Capsule AM [facility] [employer] System I nc Acetaminophen 325 MG / 02/03/2017 12:00:00 [facility] tramadol hydrochloride AM [facility] System Inc 37.5 MG Oral Tablet 7 ACTUAT umeclidinium 07/10/2016 12:00:00 [facility] 0.0625 MG/ACTUAT Dry AM [facility] [employer] System [employer] Powder Inhaler [Incruse] Atenolol 25 MG Oral 01/24/2016 12:00:00 [facility] Tablet AM [facility] [employer] System I nc valsartan 160 MG Oral 01/09/2016 12:00:00 [facility] Tablet AM [facility] [employer] System I nc 24 HR metoprolol 01/09/2016 12:00:00 [facility] succinate 50 MG Extended AM [facility] System Inc Release Oral Tablet Amlodipine 10 MG Oral 01/06/2016 12:00:00 [facility] Tablet AM [facility] [employer] System I nc pantoprazole 40 MG 12/26/2015 12:00:00 [facility] Delayed Release Oral AM [employer] [facility] [employer] Tablet Albuterol 0.83 MG/ML 11/03/2014 12:00:00 [facility] Inhalant Solution AM [facility] Health Sys tem Inc Omeprazole 20 MG Delayed [facility] Release Oral Tablet Health S ystem Inc Rosuvastatin calcium 20 [facility] MG Oral Tablet [Crestor] [facility] System [facility] Furosemide 40 MG Oral [facility] Tablet Health System I nc potassium chloride [facility] (KLOR-CON) 20 mEq packet [facility] System [facility] Glipizide 5 MG Oral [facility] Tablet Health System I nc
--- NOTE | 2019-11-30 08:01 | PDOC ---
History of Present Illness <Karin Knight - Last Filed: 11/30/19 12:43> - General History Source: Patient, Family (Daughter) Exam Limitations: No Limitations - History of Present Illness Initial Comments: 11/30/19 08:15 89 y.o. F with a PMHx of ESRD on HD (M/W/F), COPD on 2L NC at home, Afib on eliquis, CHF, HTN, HLD, Anemia, Asthma, DM, GERD, L incarcerated hernia w/SBO s/p repair in 2019. Patient presents due to 2 days of R sided abdominal pain abdominal pain non radiating. Pt's history was taken from the daughter at bedside. Pt has not been able to eat since yesterdays breakfast and has had 3 episodes of emesis today and yesterday productive of a non-bloody white mucus. Pt has not had a bowel movement in 3 days per the home health aid. Patient denies and fever chills, headache, chest pain, SOB. PCP: Dr. Marrufo Specialist: Dr. Reis PMHx: ESRD on HD (M/W/F), COPD on 2L NC at home, Afib on eliquis, CHF, HTN, HLD, Anemia, Asthma, DM, GERD PSHx: L incarcerated hernia w/SBO s/p repair in 2019 Meds: In Chart Allergies: Egg 11/30/19 08:26 11/30/19 13:41 Is this a multiple visit Asthma Patient?: No Timing/Duration: 1 week (3 days) <Ayden Aquino - Last Filed: 11/30/19 13:45> - General Chief Complaint: Nausea/Vomiting Stated Complaint: ABD PAIN Time Seen by Provider: 11/30/19 07:58 Past History <Karin Knight - Last Filed: 11/30/19 12:43> - Travel History Traveled outside of the country in the last 30 days: No Close contact w/someone who was outside of country & ill: No - Medical History Anemia: Yes Asthma: Yes Cancer: No Cardiac Disorders: No CVA: Yes COPD: Yes (home o2) CHF: Yes Dementia: No Diabetes: Yes Dialysis: Yes (M/W/F) GI Disorders: Yes (GERD) Disorders: Yes HTN: Yes Hypercholesterolemia: Yes Kidney Stones: Yes Liver Disease: No Seizures: No Thyroid Disease: No - Surgical History Abdominal Surgery: No Appendectomy: No Cardiac Surgery: No Cholecystectomy: No GI Surgery: Yes (Hernia repair 01/2019) Lung Surgery: No Neurologic Surgery: Yes (CRANIOTOMY 10YEARS AGO) Orthopedic Surgery: No - Reproductive History Is Patient Now?: No Cervical CA: No Dysfunctional Uterine Bleeding: No Ectopic : No Endometrial CA: No Polycystic Ovaries: No Therapeutic (s) & number: No Tubal Ligation: No - Immunization History Immunization Up to Date: Yes - Psycho-Social/Smoking History Smoking History: Never smoked Have you smoked in the past 12 months: No Number of Cigarettes Smoked Daily: 0 If you are a former smoker, when did you quit?: 50 YEARS Cigars Per Day: 0 Information on smoking cessation initiated: No - Substance Abuse Hx (Audit-C & DAST Scrn) How often the patient has a drink containing alcohol: Never Score: In Men: 4 or > Positive; In Women: 3 or > Positive: 0 Screen Result (Pos requires Nsg. Audit-10AR): Negative <Ayden Aquino - Last Filed: 11/30/19 13:45> - Medical History Allergies/Adverse Reactions: Allergies Allergy/AdvReac Type Severity Reaction Status Date / Time No Known Drug Allergies Allergy Verified 11/30/19 07:35 egg AdvReac Vomiting Verified 11/30/19 07:35 Home Medications: Ambulatory Orders Apixaban [Eliquis -] 2.5 mg PO BID tablet 06/13/18 Isosorbide Mononitrate [Imdur -] 30 mg PO DAILY tab.sr.24h 06/13/18 Sevelamer Carbonate [Renvela -] 800 mg PO TIDCM tab 06/13/18 Atorvastatin Ca [Lipitor] 20 mg PO HS 11/05/18 Metoprolol Succinate [Toprol XL -] 100 mg PO DAILY 11/05/18 Ranolazine [Ranolazine ER] 500 mg PO BID 11/05/18 Albuterol Sulfate Inhaler - [Ventolin HFA Inhaler -] 1 puff IH TID PRN 10/24/19 Famotidine [Pepcid -] 20 mg PO DAILY 10/24/19 LORazepam [Ativan] 0.5 mg PO DAILY PRN 10/24/19 levETIRAcetam [Keppra Xr -] 1 tab PO DAILY 10/24/19 Bisacodyl Suppository [Dulcolax Suppository -] 10 mg RC DAILY PRN #7 supp.rect 10/25/19 Docusate Liquid [Colace Liquid -] 100 mg PO DAILY #1 ud 10/25/19 Polyethylene Glycol 3350 [Miralax (For Bowel Prep) -] 17 gm PO DAILY #1 bottle 10/25/19 Sennosides [Senna] 8.6 mg PO DAILY #30 capsule 10/25/19 Review of Systems - Review of Systems Able to Perform ROS?: Yes Is the patient limited Gabonese proficient: Yes Constitutional: No: Chills, Fever HEENTM: No: Blurred Vision, Double Vision Respiratory: No: Cough, Shortness of Breath, Wheezing Cardiac (ROS): No: Chest Pain, Edema, Lightheadedness ABD/GI: Yes: Constipated, Nausea, Poor Appetite, Vomiting (6 episodes total, non bloody). No: Abdominal Distended, Blood Streaked Bowels, Diarrhea : No: Burning, Dysuria Musculoskeletal: Yes: Joint Pain (L knee). No: Back Pain Integumentary: No: Bruising, Flushing, Rash, Sweating Neurological: No: Headache, Numbness, Tingling, Dizziness Hematologic/Lymphatic: Yes: Anemia. No: Easy Bleeding, Easy Bruising <Ayden Aquino - Last Filed: 11/30/19 13:45> *Physical Exam - Vital Signs Last Vital Signs Temp Pulse Resp BP Pulse Ox 98.6 F 107 H 22 H 195/97 H 100 11/30/19 07:33 11/30/19 07:33 11/30/19 07:33 11/30/19 07:33 11/30/19 07:33 <Karin Knight - Last Filed: 11/30/19 12:43> - Vital Signs Last Vital Signs Temp Pulse Resp BP Pulse Ox 98.6 F 107 H 22 H 195/97 H 100 11/30/19 07:33 11/30/19 07:33 11/30/19 07:33 11/30/19 07:33 11/30/19 07:33 - Physical Exam General Appearance: Yes: Nourished, Appropriately Dressed. No: Apparent Distress Respiratory/Chest: positive: Lungs Clear, Other (Coarse breath sounds b/l). negative: Chest Tender, Normal Breath Sounds, Respiratory Distress, Accessory Muscle Use, Crackles, Rales, Stridor, Wheezing Cardiovascular: positive: Other (A-fib). negative: Regular Rhythm, Regular Rate, Edema, JVD Gastrointestinal/Abdominal: positive: Tender (RUQ), Flat, Soft, Decreased BS, Tenderness (RUQ). negative: Normal Bowel Sounds, Organomegaly, Pulsatile Mass, Increased Bowel Sounds, Distended, Guarding, Rebound Musculoskeletal: negative: Normal Inspection, CVA Tenderness Extremity: positive: Normal Inspection. negative: Swelling, Calf Tenderness Integumentary: positive: Normal Color, Dry, Warm. negative: Rash, Swelling Neurologic: positive: Fully Oriented, Alert, Normal Mood/Affect, Normal Response <Ayden Aquino - Last Filed: 11/30/19 13:45> ED Treatment Course - LABORATORY CBC & Chemistry Diagram: 11/30/19 08:20 11/30/19 08:20 - ADDITIONAL ORDERS Additional order review: Laboratory Results 11/30/19 11/30/19 11/30/19 08:20 08:20 08:20 PT with INR 11.70 INR 0.99 Sodium 136 Potassium 4.5 Chloride 96 L Carbon Dioxide 35 H Anion Gap 6 L BUN 36.8 H Creatinine 4.9 H Est GFR (CKD-EPI)AfAm 8.47 Est GFR (CKD-EPI)NonAf 7.31 POC Glucometer Random Glucose 159 H Lactic Acid 1.5 Calcium 10.6 H Total Bilirubin 1.5 H Direct Bilirubin 0.2 AST 13 L ALT 12 L Alkaline Phosphatase 77 Troponin I Total Protein 8.0 Albumin 4.5 Lipase 11/30/19 11/30/19 08:20 08:18 PT with INR INR Sodium Potassium Chloride Carbon Dioxide Anion Gap BUN Creatinine Est GFR (CKD-EPI)AfAm Est GFR (CKD-EPI)NonAf POC Glucometer 162 Random Glucose Lactic Acid Calcium Total Bilirubin Direct Bilirubin AST ALT Alkaline Phosphatase Troponin I < 0.02 Total Protein Albumin Lipase 189 11/30/19 11/30/19 08:20 08:18 RBC 4.03 MCV 88.9 MCHC 32.8 RDW 16.8 H MPV 8.6 Neutrophils % 83.4 H Lymphocytes % 9.9 Monocytes % 6.6 Eosinophils % 0.0 D Basophils % 0.1 POC Glucometer 162 - RADIOLOGY Radiology Studies Ordered: Category Date Time Status ABDOMEN & PELVIS CT WITH CONTR [CT] Stat CT Scan 11/30/19 09:49 Completed - Medications Given in the ED: ED Medications Discontinued Medications Generic Name Dose Route Start Last Admin Trade Name Shubham PRN Reason Stop Dose Admin Acetaminophen 1,000 mg 11/30/19 08:23 11/30/19 08:41 Ofirmev Injection - IVPB 11/30/19 08:24 1,000 mg ONCE ONE Administration Famotidine/Sodium Chloride 20 mg in 50 mls @ 100 mls/hr 11/30/19 08:15 11/30/19 08:40 Pepcid 20 Mg Premixed Ivpb - IVPB 11/30/19 08:44 100 mls/hr ONCE ONE Administration Ondansetron HCl 4 mg 11/30/19 08:14 11/30/19 08:40 Zofran Injection IVPUSH 11/30/19 08:15 4 mg ONCE ONE Administration <Karin Knight - Last Filed: 11/30/19 12:43> - LABORATORY CBC & Chemistry Diagram: 11/30/19 08:20 11/30/19 08:20 <Ayden Aquino - Last Filed: 11/30/19 13:45> Medical Decision Making - Medical Decision Making 11/30/19 08:32 89 y.o. F with a PMH of ESRD on HD (M/W/F), COPD on 2L NC at home, Afib on eliquis, CHF, HTN, HLD, Anemia, Asthma, DM, GERD, L incarcerated hernia w/SBO s/p repair in 2019. DDx: Ileus, SBO, Mesenteric ischemia, pancreatitis, IA, Gastroparesis, peptic ulcer disease Labs: WBC 7, BUN 36.8, Cr 4.9, Tbili 1.5/Direct 0.2, Trops <0.02, Lipase 189, lactic acid 1.5 CT scan: Dilated small bowel loops concerning for obstruction. Transition point is suspected to occur at a left inguinal hernia, which contains a portion of dilated small bowel with adjacent collapse of bowel caliber. EKG: Dispo: Admission to Med-Surg 11/30/19 09:40 11/30/19 13:36 - 2x attempts to place the NG tube by the ED team. Surgical team was by bedside and attempted to place the NG tube but patient was persistent at pulling it out. She refused further attempts at NG tube placement. 11/30/19 13:43 <Ayden Aquino - Last Filed: 11/30/19 13:45> Discharge - Discharge Information Problems reviewed: Yes - Admission Yes <Karin Knight - Last Filed: 11/30/19 12:43> - Admission Yes <Ayden Aquino - Last Filed: 11/30/19 13:45> - Discharge Information Clinical Impression/Diagnosis: SBO (small bowel obstruction) Abdominal pain Qualifiers: Abdominal location: generalized Qualified Code(s): R10.84 - Generalized abdominal pain Constipation Qualifiers: Constipation type: unspecified constipation type Qualified Code(s): K59.00 - Constipation, unspecified Chronic kidney disease Qualifiers: Chronic kidney disease stage: on chronic dialysis Qualified Code(s): N18.6 - En d stage renal disease Vomiting Qualifiers: Vomiting type: unspecified Vomiting Intractability: non-intractable Nausea presence: unspecified Qualified Code(s): R11.10 - Vomiting, unspecified - Follow up/Referral Referrals: Reid Marrufo [Primary Care Provider] - - Patient Discharge Instructions - Post Discharge Activity
[2019-11-30] MEDS ORDERED: ONDANSETRON 4 MG/2 ML VIAL IVPUSH ONE (08:14)
[2019-11-30] MEDS ORDERED: FAMOTIDINE 20 MG/50 ML IVPB 20 MG/50 ML MG IVPB ONE ×2 (08:15→08:35)
[2019-11-30] MEDS ORDERED: ACETAMINOPHEN 1000 MG/100 ML VIAL (NON FORMULARY) IVPB ONE (08:23)
[2019-11-30] MEDS ORDERED: ACETAMINOPHEN INJECTION 100 ML IVPB ONE ×2 (08:35→17:26)
--- NOTE | 2019-11-30 08:54 | PDOC ---
Attending Attestation - Resident Resident Name: Ayden Aquino - ED Attending Attestation I have performed the following: I have examined & evaluated the patient, The case was reviewed & discussed with the resident, I agree w/resident's findings & plan - HPI HPI: 11/30/19 08:50 [age]-year-old female with history of multiple medical problems including end- stage renal disease on Friday/Friday/Friday dialysis, atrial fibrillation on Eli, history of chronic GI complaints including constipation and occasional episodes of obstruction presents now with her typical GI complaints of intermittent abdominal pain with nausea/vomiting and decreased p.o. intake in the setting of several days of constipation. Last meal was yesterday morning, nonbloody nonbilious vomiting since then. Has had small stool output for the last few days but last normal bowel movement was at least 3 or 4 days ago. Daughter at bedside, knows patient well, cares for her along with home health aide, no reported fevers. Patient takes MiraLAX and Linzess but inconsistently, presents for evaluation because symptoms are not resolving. - Physicial Exam PE: 11/30/19 08:51 Afebrile, hypertensive, O2 sat within normal limits Alert lying in stretcher, occasional mild distress secondary to abdominal pain Dry mucosa Heart is irregular slight tachycardia Abdomen is soft/nondistended. No focal guarding or rebound, bowel sounds are within normal limits, no palpable masses - Medical Decision Making 11/30/19 08:52 89-year-old female with history of chronic abdominal complaints and constipation presents now with several days of constipation and nausea/vomiting/decreased p.o. intake with element of dehydration, received dialysis yesterday, hypertensive here but without evidence of sepsis and with no focal peritoneal findings on examination. Presentation seems most consistent with acute on chronic exacerbation of constipation, given multiple comorbidities rule out any infectious process or obstructive process or vascular process. Labs sent including lactate Antiemetic, antacid, pain control Will likely need CT of the abdomen and pelvis Reassess Heart Score/ECG Review #1 ECG reviewed & interpreted by me at: 08:35 General ECG Interpretation: Sinus Rhythm, Normal Rate (96), Normal Intervals (qtc 444, LVH), No acute ischemic changes (TWI I/AVL) Compared to previous ECG there are: No significant change (c/w 10/23/19) Discharge - Discharge Information Problems reviewed: Yes Clinical Impression/Diagnosis: Abdominal pain Qualifiers: Abdominal location: generalized Qualified Code(s): R10.84 - Generalized abdominal pain Constipation Qualifiers: Constipation type: unspecified constipation type Qualified Code(s): K59.00 - Constipation, unspecified - Follow up/Referral Referrals: Reid Marrufo [Primary Care Provider] - - Patient Discharge Instructions - Post Discharge Activity
[2019-11-30 08:57] LABS: BASO % 0.1 % (0-2.0); HEMATOCRIT 35.8 % (32.4-45.2); HEMOGLOBIN 11.7 GM/dL (10.7-15.3); LYMPH % 9.9 % (8-40); MCH 29.2 pg (25.7-33.7); MCHC 32.8 g/dl (32.0-36.0); MEAN CELL VOLUME 88.9 fl (80-96); MEAN PLT VOLUME 8.6 fl (7.5-11.1); MONO % 6.6 % (3.8-10.2); NEUT % 83.4 % (42.8-82.8); PLATELET COUNT 280 K/MM3 (134-434); RBC 4.03 M/mm3 (3.60-5.2); RDW 16.8 % (11.6-15.6)
[2019-11-30 09:03] LABS: INR 0.99 (0.83-1.09); PROTHROMBIN TIME (PATIENT) 11.7 SEC (9.7-13.0)
[2019-11-30 09:30] LABS: ALBUMIN 4.5 g/dl (3.4-5.0); BILIRUBIN,TOTAL 1.5 mg/dL (0.2-1); BLOOD UREA NITROGEN 36.8 mg/dL (7-18); CALCIUM 10.6 mg/dL (8.5-10.1); CREATININE 4.9 mg/dL (0.55-1.3); POTASSIUM 4.5 mmol/L (3.5-5.1)
[2019-11-30 09:32] LABS: LIPASE 189 U/L (73-393)
[2019-11-30 10:06] LABS: BILIRUBIN,DIRECT 0.2 mg/dL (0.0-0.2)
[2019-11-30] MEDS ORDERED: LIDOCAINE VISCOUS 2% ORAL/TOP 100 ML BOTTLE MM ONE (13:03)
[2019-11-30] MEDS ORDERED: LIDOCAINE HCL 2% JELLY 10 ML CARTRIDGE ONE (13:04)
[2019-11-30] MEDS ORDERED: LIDOCAINE VISCOUS 2% ORAL/TOP 20 ML UNIT-DOSE CUP ONE (13:06)
[2019-11-30] MEDS ORDERED: SODIUM CHLORIDE 0.45% 1,000 ML IV SCH (13:30)
--- NOTE | 2019-11-30 14:06 | CONSULT ---
Consult Consult Specialty:: Nephrology Reason for Consultation:: ESRD - History of Present Illness Chief Complaint: abdominal pain History of Present Illness: Pt is an 89 year old female with pmhx of esrd, copd, a-fib, chf, htn, hld, asthma, dm, gerd, anemia, hernia repair and pericardial effusion who presents to the ER with abdominal pain. She has history of constipation and takes laxatives at home. She lives with her daughter who takes care of her. She had several episodes of emesis today. She was found to have possible sbo on ct scan. She denies shortness of breath. She denies fever or chills. She last went to HD yesterday. Her last bowel movement was 3 days ago per her daughter. 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: Yes: Dementia Cardio/Vascular: Yes: HTN Pulmonary: Yes: Asthma, COPD, O2 Dependent, Pneumonia Gastrointestinal: Yes: GERD Renal/: Yes: Renal Inusuff, Hemodialysis, Renal Calculi (maybe- she had flank pain) ...LMP: 03/22/89 ...: No Endocrine: Yes: Diabetes Mellitus - Past Surgical History Past Surgical History: Yes: AV Fistula/Graft - Alcohol/Substance Use Hx Alcohol Use: No - Smoking History Smoking history: Never smoked Have you smoked in the past 12 months: No Aproximately how many cigarettes per day: 0 If you are a former smoker, when did you quit?: 50 YEARS - Social History Usual Living Arrangement: With Child Home Medications - Allergies Allergies/Adverse Reactions: Allergies Allergy/AdvReac Type Severity Reaction Status Date / Time No Known Drug Allergies Allergy Verified 11/30/19 07:35 egg AdvReac Vomiting Verified 11/30/19 07:35 - Home Medications Home Medications: Ambulatory Orders Apixaban [Eliquis -] 2.5 mg PO BID tablet 06/13/18 Isosorbide Mononitrate [Imdur -] 30 mg PO DAILY tab.sr.24h 06/13/18 Sevelamer Carbonate [Renvela -] 800 mg PO TIDCM tab 06/13/18 Atorvastatin Ca [Lipitor] 20 mg PO HS 11/05/18 Ranolazine [Ranolazine ER] 500 mg PO BID 11/05/18 Albuterol Sulfate Inhaler - [Ventolin HFA Inhaler -] 1 puff IH TID PRN 10/24/19 Famotidine [Pepcid -] 20 mg PO DAILY 10/24/19 LORazepam [Ativan] 0.5 mg PO DAILY PRN 10/24/19 levETIRAcetam [Keppra Xr -] 1 tab PO DAILY 10/24/19 Bisacodyl Suppository [Dulcolax Suppository -] 10 mg RC DAILY PRN #7 supp.rect 10/25/19 Docusate Liquid [Colace Liquid -] 100 mg PO DAILY #1 ud 10/25/19 Polyethylene Glycol 3350 [Miralax (For Bowel Prep) -] 17 gm PO DAILY #1 bottle 10/25/19 Sennosides [Senna] 8.6 mg PO DAILY #30 capsule 10/25/19 Telmisartan/Amlodipine [Telmisartan-Amlodipine 80-10] 1 each PO DAILY 11/30/19 Family Medical History Family History: Denies Review of Systems - Review of Systems Constitutional: reports: Loss of Appetite, Malaise Eyes: reports: No Symptoms HENT: reports: No Symptoms Neck: reports: No Symptoms Cardiovascular: reports: No Symptoms Respiratory: reports: SOB on Exertion Gastrointestinal: reports: Abdominal Pain, Vomiting Genitourinary: reports: No Symptoms Musculoskeletal: reports: No Symptoms Integumentary: reports: No Symptoms Neurological: reports: No Symptoms Endocrine: reports: No Symptoms Hematology/Lymphatic: reports: No Symptoms Psychiatric: reports: No Symptoms Physical Exam Vital Signs: Vital Signs Temperature 98.6 F 11/30/19 07:33 Pulse Rate 107 H 11/30/19 07:33 Respiratory Rate 22 H 11/30/19 07:33 Blood Pressure 195/97 H 11/30/19 07:33 O2 Sat by Pulse Oximetry (%) 100 11/30/19 07:33 Constitutional: Yes: Calm Eyes: Yes: Conjunctiva Clear HENT: Yes: Atraumatic Cardiovascular: Yes: S1, S2 Respiratory: Yes: On Nasal O2 Gastrointestinal: Yes: Tenderness Renal/: Yes: WNL Musculoskeletal: Yes: WNL Edema: No Integumentary: Yes: WNL Neurological: Yes: Oriented Psychiatric: Yes: Oriented Labs: CBC, BMP 11/30/19 08:20 11/30/19 08:20 Imaging - Results Cat Scan: Report Reviewed Problem List - Problems (1) ESRD (end stage renal disease) Code(s): N18.6 - END STAGE RENAL DISEASE (2) Abdominal pain Code(s): R10.9 - UNSPECIFIED ABDOMINAL PAIN Qualifiers: Abdominal location: generalized Qualified Code(s): R10.84 - Generalized abdominal pain (3) SBO (small bowel obstruction) Code(s): K56.609 - UNSP INTESTNL OBST, UNSP TO PARTIAL VERSUS COMPLETE OBST (4) Vomiting Code(s): R11.10 - VOMITING, UNSPECIFIED Qualifiers: Vomiting type: unspecified Vomiting Intractability: non-intractable Nausea presence: unspecified Qualified Code(s): R11.10 - Vomiting, unspecified (5) Constipation Code(s): K59.00 - CONSTIPATION, UNSPECIFIED Qualifiers: Constipation type: unspecified constipation type Qualified Code(s): K59.00 - Constipation, unspecified (6) Hx SBO Code(s): Z87.19 - PERSONAL HISTORY OF OTHER DISEASES OF THE DIGESTIVE SYSTEM (7) Diabetes Code(s): E11.9 - TYPE 2 DIABETES MELLITUS WITHOUT COMPLICATIONS Qualifiers: Diabetes mellitus type: type 2 Diabetes mellitus custodial insulin use: without custodial use Diabetes mellitus complication status: with kidney complications Diabetes mellitus complication detail: with chronic kidney disease Chronic kidney disease stage: on chronic dialysis Qualified Code(s): E11.22 - Type 2 diabetes mellitus with diabetic chronic kidney disease; N18.6 - End stage renal disease; Z99.2 - Dependence on renal dialysis (8) Hypercholesterolemia Code(s): E78.00 - PURE HYPERCHOLESTEROLEMIA, UNSPECIFIED (9) Hypertension Code(s): I10 - ESSENTIAL (PRIMARY) HYPERTENSION Qualifiers: Hypertension type: essential hypertension Qualified Code(s): I10 - Essential (primary) hypertension (10) Pericardial effusion Code(s): I31.3 - PERICARDIAL EFFUSION (NONINFLAMMATORY) Assessment/Plan Current Medications Generic Name Dose Route Start Last Admin Trade Name Freq PRN Reason Stop Dose Admin Sodium Chloride 1,000 mls @ 42 mls/hr 11/30/19 13:30 11/30/19 14:01 1/2 Normal Saline IV 42 mls/hr ASDIR FORREST Administration Insulin Aspart 1 vial 11/30/19 16:30 Novolog Vial Sliding Scale - SQ TIDAC FORREST Protocol Levetiracetam 500 mg 12/01/19 10:00 Keppra Injection - IVPB DAILY FORREST Impression 1. ESRD 2. HTN 3. HLD 4. COPD 5. DM 6. pos heb b core 7. SBO 8. anemia 9. a-fib 10. 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 abdominal pain 13. r/o sbo Plan - pt last dialyzed yesterday - discussed with ER - surgery evaluation for ct findings - pt made npo - gentle hydration and caution with fluids - repeat labs in am - will evaluate for HD tomorrow - monitor bp - will give hydralazine for elevated bp - will need to convert po meds to IV
[2019-11-30] MEDS ORDERED: ONDANSETRON 4 MG/2 ML VIAL IVPUSH PRN ×2 (14:07→17:45)
[2019-11-30] MEDS ORDERED: hydrALAZINE HCL 20 MG/ML VIAL IVPUSH ONE (14:09)
[2019-11-30] MEDS ORDERED: LIDOCAINE HCL 1%, 10 MG/ML (20ML VIAL) ONE (14:10)
--- NOTE | 2019-11-30 14:13 | CONSULT ---
<Emerald Pulido - Last Filed: 11/30/19 14:42> - Consultation REQUESTING PROVIDER: CONSULT REQUEST: We have been asked to surgically evaluate this patient for incarcerated L inguinal hernia. Hospitalist:Ayden García MD HISTORY OF PRESENT ILLNESS: 89 y/o F known to surgery w/ PMHx ESRD on HD (MWF), COPD on 2 lpm NC, Anemia, Asthma, CHF, DM, GERD, HTN, HLD, AFib on Eliquis, and prior SBO a/w 1 day of abdominal pain, nausea/vomiting. Pts daughter bedside, reports pt has had rlq abdominal pain, nausea and vomiting (nonbilious, nonbloody) for the past 2 days. Pt has frequent episodes of constipation/fecal retention for which she was rec ently hospitalized (10/22-10/24). Had b/l inguinal hernia repair w/ mesh one year ago with Dr Waggoner. Denies cp/sob, fevers, chills. PMHx: as above PSHx: hernia repair b/l inguinal w/ mesh Dr Waggoner 11/2018 Home Medications Medication Instructions Recorded Apixaban [Eliquis -] 2.5 mg PO BID tablet 06/13/18 Isosorbide Mononitrate [Imdur -] 30 mg PO DAILY tab.sr.24h 06/13/18 Sevelamer Carbonate [Renvela -] 800 mg PO TIDCM tab 06/13/18 Atorvastatin Ca [Lipitor] 20 mg PO HS 11/05/18 Ranolazine [Ranolazine ER] 500 mg PO BID 11/05/18 Albuterol Sulfate Inhaler - 1 puff IH TID PRN 10/24/19 [Ventolin HFA Inhaler -] Famotidine [Pepcid -] 20 mg PO DAILY 10/24/19 LORazepam [Ativan] 0.5 mg PO DAILY PRN 10/24/19 levETIRAcetam [Keppra Xr -] 1 tab PO DAILY 10/24/19 Bisacodyl Suppository [Dulcolax 10 mg RC DAILY PRN #7 supp.rect 10/25/19 Suppository -] Docusate Liquid [Colace Liquid -] 100 mg PO DAILY #1 ud 10/25/19 Polyethylene Glycol 3350 [Miralax 17 gm PO DAILY #1 bottle 10/25/19 (For Bowel Prep) -] Sennosides [Senna] 8.6 mg PO DAILY #30 capsule 10/25/19 Telmisartan/Amlodipine 1 each PO DAILY 11/30/19 [Telmisartan-Amlodipine 80-10] Allergies Allergy/AdvReac Type Severity Reaction Status Date / Time No Known Drug Allergies Allergy Verified 11/30/19 07:35 egg AdvReac Vomiting Verified 11/30/19 07:35 REVIEW OF SYSTEMS: CONSTITUTIONAL: Absent: fever, chills CARDIOVASCULAR: Absent: chest pain, syncope RESPIRATORY: Absent: cough, shortness of breath GASTROINTESTINAL: + abdominal pain, (-)abdominal distension, (+) nausea, (+)vomiting, (-)diarrhea, (+)constipation PHYSICAL EXAM: GENERAL: Awake, alert, in no acute distress. HEAD: Normal with no signs of trauma. LUNGS: No accessory muscle use. ABDOMEN: Soft, +ttp in rlq, llq with palpable mass (incarcerated bowel), not reducible, +ttp. Abdomen not distended, no guarding, no rebound. Vital Signs Temperature 98.6 F 11/30/19 07:33 Pulse Rate 107 H 11/30/19 07:33 Respiratory Rate 22 H 11/30/19 07:33 Blood Pressure 195/97 H 11/30/19 07:33 O2 Sat by Pulse Oximetry (%) 100 11/30/19 07:33 Lab Results WBC 7.0 K/mm3 (4.0-10.0) 11/30/19 08:20 RBC 4.03 M/mm3 (3.60-5.2) 11/30/19 08:20 Hgb 11.7 GM/dL (10.7-15.3) 11/30/19 08:20 Hct 35.8 % (32.4-45.2) 11/30/19 08:20 MCV 88.9 fl (80-96) 11/30/19 08:20 MCHC 32.8 g/dl (32.0-36.0) 11/30/19 08:20 RDW 16.8 % (11.6-15.6) H 11/30/19 08:20 Plt Count 280 K/MM3 (134-434) D 11/30/19 08:20 INR 0.99 (0.83-1.09) 11/30/19 08:20 Sodium 136 mmol/L (136-145) 11/30/19 08:20 Potassium 4.5 mmol/L (3.5-5.1) 11/30/19 08:20 Chloride 96 mmol/L (98-107) L 11/30/19 08:20 Carbon Dioxide 35 mmol/L (21-32) H 11/30/19 08:20 Anion Gap 6 MMOL/L (8-16) L 11/30/19 08:20 BUN 36.8 mg/dL (7-18) H 11/30/19 08:20 Creatinine 4.9 mg/dL (0.55-1.3) H 11/30/19 08:20 Random Glucose 159 mg/dL (74-106) H 11/30/19 08:20 Calcium 10.6 mg/dL (8.5-10.1) H 11/30/19 08:20 CT A/P (11/30/19): dilated distal small bowel loops are concerning for obstruction. Transition point is suspected to occur at a left inguinal hernia which contains a dilated small bowel with adjacent collapse of bowel caliber. A/P: 89 y/o F known to surgery w/ PMHx ESRD on HD (MWF), COPD on 2 lpm NC, Anemia, Asthma, CHF, DM, GERD, HTN, HLD, AFib on Eliquis, and prior SBO a/w 1 day of abdominal pain, nausea/vomiting. Found to have sbo/incarcerated L inguinal hernia Afebrile, vss No leukocytosis, lactate 1.5 -NPO -OR today -T&S sent -Covid ordered for floor, case to proceed in [facility]6 (Covid RM) -D/w pts daughter (HCP) who agrees <Lucas Waggoner - Last Filed: 12/10/19 16:41> - Consultation Attending Surgeon: I personally saw and examined the patient. My examination reveals a patient with a recurrent left groin hernia and SBO. I discussed the case with the surgical PA and agree with their findings and plan of care with any exceptions as noted. ~ Lucas Waggoner MD, FACS
[2019-11-30] MEDS ORDERED: LIDOCAINE HCL/PF 2% SDV 5ML VIAL ONE ×2 (14:20→14:21)
[2019-11-30] MEDS ORDERED: fentaNYL CITRATE 250 MCG/5 ML VIAL ONE (14:20)
[2019-11-30] MEDS ORDERED: ROCURONIUM BROMIDE 50 MG/5 ML SYRINGE ONE (14:21)
[2019-11-30] MEDS ORDERED: PROPOFOL 20 ML ONE (14:21)
--- NOTE | 2019-11-30 14:22 | HP ---
CHIEF COMPLAINT: abdominal pain PCP: HISTORY OF PRESENT ILLNESS: Patient is a 89 y/o female with a history of ESRD on HD, COPD on 2 L, anema, CHF, DM, GERD. HTN, HLOD, afib, and previous SBO's. Patient presents for nausea and vomiting. Daughter reports she has been having this on and off for years. The events occur randomly and do not resolve unless they are in the hospital. She is unable to eat and has pain in her abdomen. Per the daughter patient did not eat anything abnormal, denies fever, chills, chest pain, headache, or constipation. Patient lives with daughter and typically uses a walker to get ar ound. WHile in the ED patient was evaluated for surgery, patient will be taken to the OR for SBO. ER course was notable for: (1) tylenol (2) (3) Recent Travel: denies PAST MEDICAL HISTORY: ESRD on HD, COPD on 2 L, anema, CHF, DM, GERD< HTN, HLOD, afib, and previous SBO's. PAST SURGICAL HISTORY: hernia repair in either January 2019 or 2017 per daughter Social History: Smoking: denies Alcohol: denies Drugs: denies Allergies No Known Drug Allergies Allergy (Verified 11/30/19 07:35) egg Adverse Reaction (Verified 11/30/19 07:35) Vomiting HOME MEDICATIONS: Home Medications Medication Instructions Recorded Apixaban [Eliquis -] 2.5 mg PO BID tablet 06/13/18 Isosorbide Mononitrate [Imdur -] 30 mg PO DAILY tab.sr.24h 06/13/18 Sevelamer Carbonate [Renvela -] 800 mg PO TIDCM tab 06/13/18 Atorvastatin Ca [Lipitor] 20 mg PO HS 11/05/18 Ranolazine [Ranolazine ER] 500 mg PO BID 11/05/18 Albuterol Sulfate Inhaler - 1 puff IH TID PRN 10/24/19 [Ventolin HFA Inhaler -] Famotidine [Pepcid -] 20 mg PO DAILY 10/24/19 LORazepam [Ativan] 0.5 mg PO DAILY PRN 10/24/19 levETIRAcetam [Keppra Xr -] 1 tab PO DAILY 10/24/19 Bisacodyl Suppository [Dulcolax 10 mg RC DAILY PRN #7 supp.rect 10/25/19 Suppository -] Docusate Liquid [Colace Liquid -] 100 mg PO DAILY #1 ud 10/25/19 Polyethylene Glycol 3350 [Miralax 17 gm PO DAILY #1 bottle 10/25/19 (For Bowel Prep) -] Sennosides [Senna] 8.6 mg PO DAILY #30 capsule 10/25/19 Telmisartan/Amlodipine 1 each PO DAILY 11/30/19 [Telmisartan-Amlodipine 80-10] REVIEW OF SYSTEMS CONSTITUTIONAL: Absent: fever, chills, diaphoresis, generalized weakness, malaise, loss of appetite, weight change HEENT: Absent: rhinorrhea, nasal congestion, throat pain, throat swelling, difficulty swallowing, mouth swelling, ear pain, eye pain, visual changes CARDIOVASCULAR: Absent: chest pain, syncope, palpitations, irregular heart rate, ligh theadedness, peripheral edema RESPIRATORY: Absent: cough, shortness of breath, dyspnea with exertion, orthopnea, wheezing, stridor, hemoptysis GASTROINTESTINAL: abdominal pain, abdominal distension, nausea, vomiting, Absent: diarrhea, constipation, melena, hematochezia GENITOURINARY: Absent: dysuria, frequency, urgency, hesitancy, hematuria, flank pain, genital pain MUSCULOSKELETAL: Absent: myalgia, arthralgia, joint swelling, back pain, neck pain SKIN: Absent: rash, itching, pallor HEMATOLOGIC/IMMUNOLOGIC: Absent: easy bleeding, easy bruising, lymphadenopathy, frequent infections ENDOCRINE: Absent: unexplained weight gain, unexplained weight loss, heat intolerance, cold intolerance NEUROLOGIC: Absent: headache, focal weakness or paresthesias, dizziness, unsteady gait, seizure, mental status changes, bladder or bowel incontinence PSYCHIATRIC: Absent: anxiety, depression, suicidal or homicidal ideation, hallucinations. PHYSICAL EXAMINATION Vital Signs - 24 hr 11/30/19 07:33 Temperature 98.6 F Pulse Rate 107 H Respiratory 22 H Rate Blood Pressure 195/97 H O2 Sat by Pulse 100 Oximetry (%) GENERAL: Awake, alert, and fully oriented, in no acute distress. HEAD: Normal with no signs of trauma. EYES: Pupils equal, round and reactive to light, extraocular movements intact, b/l cataractses. LUNGS: Breath sounds equal, clear to auscultation bilaterally. No wheezes, and no crackles. No accessory muscle use. HEART: Regular rate and rhythm, normal S1 and S2 without murmur, rub or gallop. ABDOMEN: Soft, nontender, hypoactive bowel sounds, fullness in LLQ MUSCULOSKELETAL: Normal range of motion at all joints. . LOWER EXTREMITIES: No peripheral edema. SKIN: Warm, dry, normal turgor, no rashes or lesions noted, normal capillary refill. CBC, BMP 11/30/19 08:20 11/30/19 08:20 ASSESSMENT/PLAN: Patient is a 89 y/o female with a history of ESRD on HD, COPD on 2 L, anema, CHF, DM, GERD. HTN, HLOD, afib, and previous SBO's who is admitted for SBO. #SBO - going to surgery with Edilson today - keep NPO - zofran for nausea, QTC: 444 - ABD CT: distal dilated small bowel loops concerning for obstruction, transition point suspected at inguinal herni #HTN - hold po meds prior to surgery - need to recheck BP - per daughter she is off metoprolol and and hydralazine due to hypo episodes #[facility] @ [facility] #seizures - adjusted Keppra to IV for tomorrow #DM - BGMS - SS DVT ppx: SCD's FEN - NS @ 42 per [place] Dispo: monitor after surgery on med surg Family Medical History Family History: As Documented Visit type - Medication Review Med list reviewed for High Risk Meds patients 65 and older: Yes - Emergency Visit Emergency Visit: Yes ED Registration Date: 11/30/19 Care time: The patient presented to the Emergency Department on the above date and was hospitalized for further evaluation of their emergent condition. - New Patient This patient is new to me today: Yes Date on this admission: 12/01/19 - Critical Care Critical Care patient: No ATTENDING PHYSICIAN STATEMENT I saw and evaluated the patient. I reviewed the resident's note and discussed the case with the resident. I agree with the resident's findings and plan as documented. SUBJECTIVE: OBJECTIVE: ASSESSMENT AND PLAN:
[2019-11-30] MEDS ORDERED: MIDAZOLAM HCL 2 MG/2 ML SINGLE DOSE VIAL ONE (15:06)
[2019-11-30] MEDS ORDERED: FLU VACCINE (FLULAVAL) PF 60 MCG/0.5 ML SYRINGE 2020-2021 IM ONE (15:12)
[2019-11-30] MEDS ORDERED: ceFAZolin SODIUM 1 GM VIAL ONE (15:22)
[2019-11-30] MEDS ORDERED: ceFAZolin SODIUM 1 GM VIAL IVPB ONE (15:26)
[2019-11-30] MEDS ORDERED: GLYCOPYRROLATE 0.2 MG/1 ML VIAL ONE (16:28)
[2019-11-30] MEDS ORDERED: NEOSTIGMINE METHYLSULFATE 0.5 MG/ML - 10 ML MDV ONE (16:28)
[2019-11-30] MEDS ORDERED: INSULIN SLIDING SCALE (NOVOLOG) 1 VIAL SQ SCH (16:30)
[2019-11-30] MEDS ORDERED: METOPROLOL TARTRATE 5 MG/5 ML VIAL ONE (16:45)
[2019-11-30] MEDS ORDERED: ACETAMINOPHEN 1000 MG/100 ML VIAL (NON FORMULARY) IVPB PRN ×2 (16:45→17:45)
--- NOTE | 2019-11-30 16:47 | SURG ---
Surgery Contact Center Agent Note Contact Center Agent: Emerald Pulido PA-C (Suzy) Date of Service: 11/30/19 Diagnosis: Incarcerated left inguinal hernia Procedure: Operation: incarcerated left femoral hernia repair with plug I was present for the entirety of the operative procedure. For further detail, please refer to operative report.
--- NOTE | 2019-11-30 16:51 | OP ---
Operative Note - Note: Operative Date: 11/30/19 Pre-Operative Diagnosis: Incarcerated left inguinal hernia Operation: incarcerated left femoral hernia repair with plug Findings: as dictated Implants: as dictated Post-Operative Diagnosis: Other (incarcerated left femoral hernia) Surgeon: Lucas Waggoner Turn Out: Emerald Pulido Anesthesiologist/RIGGING SLINGER: Laz Syed Anesthesia: General Specimens Removed: hernia sac Estimated Blood Loss (mls): 5 (ml) Fluid Volume Replaced (mls): 200 (ml LR) Operative Report Dictated: Yes
[2019-11-30] MEDS ORDERED: HYDROmorphone HCl 2 MG/ML VIAL IVPUSH PRN (17:08)
--- NOTE | 2019-11-30 17:55 | PN ---
Teaching Attending Note Name of Resident: Catia Mukherjee ATTENDING PHYSICIAN STATEMENT I saw and evaluated the patient. I reviewed the resident's note and discussed the case with the resident. I agree with the resident's findings and plan as documented. SUBJECTIVE: Patient seen and examined at bedside, admitted for recurrent SBO, requiring ex-lap by surgery team, will likely be monitored in ICU after surgery. VSS. OBJECTIVE: GA in mild distress, tired appearing HEENT NC/AT, dry MM, neck supple Chest poor inspiratory effort, decreased BS at bases CVS S1, S2+, RRR Abd rigid, tender, decreased BS+ Ext no LE edema Vital Signs (72 hours) 11/30/19 11/30/19 11/30/19 07:33 14:18 14:59 Temperature 98.6 F 97.9 F Pulse Rate 107 H 108 H Pulse Rate [ 89 Left] Respiratory 22 H 20 19 Rate Blood Pressure 195/97 H 184/86 H Blood Pressure 159/75 [Left Arm] O2 Sat by Pulse 100 99 Oximetry (%) Laboratory Results - last 24 hr 11/30/19 11/30/19 11/30/19 08:18 08:20 08:20 WBC RBC Hgb Hct MCV MCH MCHC RDW Plt Count MPV Absolute Neuts (auto) Neutrophils % Lymphocytes % Monocytes % Eosinophils % Basophils % Nucleated RBC % PT with INR INR Sodium Potassium Chloride Carbon Dioxide Anion Gap BUN Creatinine Est GFR (CKD-EPI)AfAm Est GFR (CKD-EPI)NonAf POC Glucometer 162 Random Glucose Lactic Acid 1.5 Calcium Total Bilirubin Direct Bilirubin AST ALT Alkaline Phosphatase Troponin I < 0.02 Total Protein Albumin Lipase 189 Blood Type Antibody Screen 11/30/19 11/30/19 11/30/19 08:20 08:20 08:20 WBC 7.0 RBC 4.03 Hgb 11.7 Hct 35.8 MCV 88.9 MCH 29.2 MCHC 32.8 RDW 16.8 H Plt Count 280 D MPV 8.6 Absolute Neuts (auto) 5.8 Neutrophils % 83.4 H Lymphocytes % 9.9 Monocytes % 6.6 Eosinophils % 0.0 D Basophils % 0.1 Nucleated RBC % 0 PT with INR 11.70 INR 0.99 Sodium 136 Potassium 4.5 Chloride 96 L Carbon Dioxide 35 H Anion Gap 6 L BUN 36.8 H Creatinine 4.9 H Est GFR (CKD-EPI)AfAm 8.47 Est GFR (CKD-EPI)NonAf 7.31 POC Glucometer Random Glucose 159 H Lactic Acid Calcium 10.6 H Total Bilirubin 1.5 H Direct Bilirubin 0.2 AST 13 L ALT 12 L Alkaline Phosphatase 77 Troponin I Total Protein 8.0 Albumin 4.5 Lipase Blood Type Antibody Screen 11/30/19 14:05 WBC RBC Hgb Hct MCV MCH MCHC RDW Plt Count MPV Absolute Neuts (auto) Neutrophils % Lymphocytes % Monocytes % Eosinophils % Basophils % Nucleated RBC % PT with INR INR Sodium Potassium Chloride Carbon Dioxide Anion Gap BUN Creatinine Est GFR (CKD-EPI)AfAm Est GFR (CKD-EPI)NonAf POC Glucometer Random Glucose Lactic Acid Calcium Total Bilirubin Direct Bilirubin AST ALT Alkaline Phosphatase Troponin I Total Protein Albumin Lipase Blood Type A POSITIVE Antibody Screen Negative Home Medications Medication Instructions Recorded Apixaban [Eliquis -] 2.5 mg PO BID tablet 06/13/18 Isosorbide Mononitrate [Imdur -] 30 mg PO DAILY tab.sr.24h 06/13/18 Sevelamer Carbonate [Renvela -] 800 mg PO TIDCM tab 06/13/18 Atorvastatin Ca [Lipitor] 20 mg PO HS 11/05/18 Ranolazine [Ranolazine ER] 500 mg PO BID 11/05/18 Albuterol Sulfate Inhaler - 1 puff IH TID PRN 10/24/19 [Ventolin HFA Inhaler -] Famotidine [Pepcid -] 20 mg PO DAILY 10/24/19 LORazepam [Ativan] 0.5 mg PO DAILY PRN 10/24/19 levETIRAcetam [Keppra Xr -] 1 tab PO DAILY 10/24/19 Bisacodyl Suppository [Dulcolax 10 mg RC DAILY PRN #7 supp.rect 10/25/19 Suppository -] Docusate Liquid [Colace Liquid -] 100 mg PO DAILY #1 ud 10/25/19 Polyethylene Glycol 3350 [Miralax 17 gm PO DAILY #1 bottle 10/25/19 (For Bowel Prep) -] Sennosides [Senna] 8.6 mg PO DAILY #30 capsule 10/25/19 Telmisartan/Amlodipine 1 each PO DAILY 11/30/19 [Telmisartan-Amlodipine 80-10] Current Medications Generic Name Dose Route Start Last Admin Trade Name Freq PRN Reason Stop Dose Admin Acetaminophen 1,000 mg 11/30/19 17:45 Ofirmev Injection - IVPB 12/01/19 16:46 Q6H PRN PAIN LEVEL 1-5 Fentanyl 25 mcg 11/30/19 17:08 Sublimaze Injection - IVPUSH [id number] PRN PAIN-PACU ORDER X 4 DOSES ONLY Hydromorphone HCl 0.25 mg 11/30/19 17:08 Dilaudid Vial - IVPUSH 12/01/19 17:07 Q1H PRN PAIN LEVEL 6-10 Sodium Chloride 1,000 mls @ 42 mls/hr 11/30/19 17:45 1/2 Normal Saline IV ASDIR [facility] Insulin Aspart 1 vial 12/01/19 07:00 Novolog Vial Sliding Scale - SQ TIDAC [facility] Protocol Levetiracetam 500 mg 12/01/19 10:00 Keppra Injection - IVPB DAILY [facility] Ondansetron HCl 4 mg 11/30/19 17:45 Zofran Injection IVPUSH Q6H PRN NAUSEA ASSESSMENT AND PLAN: 89 F Acute small bowel obstruction h/o abdominal surgeries w/ adhesions HTN HLD CAD CHF T2DM Seizure disorder ESRD on HD COPD/Asthma Afib on Eliquis Plan: Keep NPO, serial abdominal exams, monitor lactic acid, gentle IVF avoid overload IV opioids (dilaudid) for pain control Surgery team following Transfusion threshold >8.0 Hgb DVT ppx: SCD, hold Eliquis
[2019-11-30] MEDS: SODIUM CHLORIDE 0.45% 1,000 ML IV SCH (19:40)
[2019-11-30] MEDS ORDERED: MORPHINE SULFATE 2 MG/ML VIAL IVPUSH ONE ×2 (19:47)
--- NOTE | 2019-11-30 21:10 | CONSULT ---
Consultation: REQUESTING PROVIDER: CONSULT REQUEST: We have been asked to medically evaluate this patient for (specify). HISTORY OF PRESENT ILLNESS: Patient is a 89 YO F with PMH HTN, HLD, CHF, afib (on eliquis), DM, GERD, anemia, asthma, ESRD on HD (Friday/Friday/Friday [last HD on 11/28]), COPD (on 2 L), and h/o SBO presents with nausea and vomiting & intermittent abdominal pain for 2 days. For the last few days, she has had decreased oral intake and several days of constipation. Last BM was ~11/25-, per daughter. She takes MiraLAX and Linzess, but her symptoms did not improve. Her last meal was the morning of 11/28, but has been having non-bloody, nonbilious vomiting since. On arrival to ED, patient had several episodes of emesis and was given tylenol for pain & zofran for n/v. She was hypertensive at 195/97, which was managed with hydralazine. CT scan of abdomen showed Dilated small bowel loops concerning for obstruction; Transition point is suspected to occur at a left inguinal hernia, which contains a portion of dilated small bowel with adjacent collapse of bowel caliber. Today, patient underwent an incarcerated left femoral hernia repair with plug with estimated blood loss 5 mL. Patient has home health aide and uses a walker. Recent Travel: denies PMH: HTN, HLD, CHF, afib (on eliquis), DM, GERD, anemia, asthma, ESRD on HD (Friday/Friday/Friday [last HD on 11/28]), COPD (on 2 L), and h/o SBO PSH: b/l inguinal hernia repair w/ mesh Dr Waggoner (11/2018); open surgery for subdural hematoma 2/ fall X 10 years ago Social History: Smoking: denies Alcohol: denies Drugs: denies Allergies Eggs: vomiting History obtained per chart review. Patient unable to answer questions as she is confused. Discussed with daughter. She endorses that patient is sometimes confused, which is normal for her. Malay Creole: [id number] [facility] Creole: [id number] REVIEW OF SYSTEMS: Patient is confused. unable to assess PHYSICAL EXAMINATION Vital Signs - 24 hr 11/30/19 11/30/19 11/30/19 07:33 14:18 14:59 Temperature 98.6 F 97.9 F Pulse Rate 107 H 108 H Pulse Rate [ 89 Left] Respiratory 22 H 20 19 Rate Blood Pressure 195/97 H 184/86 H Blood Pressure 159/75 [Left Arm] O2 Sat by Pulse 100 99 Oximetry (%) 11/30/19 11/30/19 11/30/19 16:52 17:05 17:20 Temperature 98.8 F Pulse Rate 92 H 92 H 91 H Pulse Rate [ Left] Respiratory 18 18 16 Rate Blood Pressure 159/68 153/66 182/85 H Blood Pressure [Left Arm] O2 Sat by Pulse 100 97 100 Oximetry (%) 11/30/19 11/30/19 11/30/19 17:35 17:50 18:05 Temperature Pulse Rate 89 87 88 Pulse Rate [ Left] Respiratory 18 18 16 Rate Blood Pressure 185/76 H 155/56 L 154/70 Blood Pressure [Left Arm] O2 Sat by Pulse 100 100 100 Oximetry (%) 11/30/19 11/30/19 11/30/19 18:20 18:35 18:50 Temperature Pulse Rate 89 82 85 Pulse Rate [ Left] Respiratory 18 14 18 Rate Blood Pressure 154/66 158/74 171/76 H Blood Pressure [Left Arm] O2 Sat by Pulse 100 100 100 Oximetry (%) 11/30/19 11/30/19 11/30/19 19:05 19:20 20:08 Temperature 97.8 F 98.2 F Pulse Rate 86 86 84 Pulse Rate [ Left] Respiratory 14 14 18 Rate Blood Pressure 171/73 H 152/66 168/65 Blood Pressure [Left Arm] O2 Sat by Pulse 100 100 100 Oximetry (%) GENERAL: Somnolent. Confused. HEENT: Normal with no signs of trauma. EYES: Pupils equal, round and reactive to light, extraocular movements intact, sclera anicteric, conjunctiva clear. No lid lag. EARS, NOSE, THROAT: Ears normal, nares patent, oropharynx clear without exudates. Moist mucous membranes. LUNGS: Breath sounds equal, clear to auscultation bilaterally. No wheezes, and no crackles. No accessory muscle use. HEART: Regular rate and rhythm, normal S1 and S2 without murmur, rub or gallop. ABDOMEN: hypoactive bowel sounds. patient is guarding likely due to confusion/agitation and would not allow medical team to assess surgical site. However, abdomen is non-TTP when palpating abdomen over gown UPPER EXTREMITIES: 2+ pulses, warm, well-perfused. No cyanosis. No peripheral edema. AV fistula Left UE (palpable thrill/audible bruit) LOWER EXTREMITIES: 2+ pulses, warm, well-perfused. No calf tenderness. No peripheral edema. NEUROLOGICAL: gait not assessed. patient is confused Laboratory Results - last 24 hr 11/30/19 11/30/19 11/30/19 08:18 08:20 08:20 WBC RBC Hgb Hct MCV MCH MCHC RDW Plt Count MPV Absolute Neuts (auto) Neutrophils % Lymphocytes % Monocytes % Eosinophils % Basophils % Nucleated RBC % PT with INR INR Sodium Potassium Chloride Carbon Dioxide Anion Gap BUN Creatinine Est GFR (CKD-EPI)AfAm Est GFR (CKD-EPI)NonAf POC Glucometer 162 Random Glucose Lactic Acid 1.5 Calcium Total Bilirubin Direct Bilirubin AST ALT Alkaline Phosphatase Troponin I < 0.02 Total Protein Albumin Lipase 189 Blood Type Antibody Screen 11/30/19 11/30/19 11/30/19 08:20 08:20 08:20 WBC 7.0 RBC 4.03 Hgb 11.7 Hct 35.8 MCV 88.9 MCH 29.2 MCHC 32.8 RDW 16.8 H Plt Count 280 D MPV 8.6 Absolute Neuts (auto) 5.8 Neutrophils % 83.4 H Lymphocytes % 9.9 Monocytes % 6.6 Eosinophils % 0.0 D Basophils % 0.1 Nucleated RBC % 0 PT with INR 11.70 INR 0.99 Sodium 136 Potassium 4.5 Chloride 96 L Carbon Dioxide 35 H Anion Gap 6 L BUN 36.8 H Creatinine 4.9 H Est GFR (CKD-EPI)AfAm 8.47 Est GFR (CKD-EPI)NonAf 7.31 POC Glucometer Random Glucose 159 H Lactic Acid Calcium 10.6 H Total Bilirubin 1.5 H Direct Bilirubin 0.2 AST 13 L ALT 12 L Alkaline Phosphatase 77 Troponin I Total Protein 8.0 Albumin 4.5 Lipase Blood Type Antibody Screen 11/30/19 14:05 WBC RBC Hgb Hct MCV MCH MCHC RDW Plt Count MPV Absolute Neuts (auto) Neutrophils % Lymphocytes % Monocytes % Eosinophils % Basophils % Nucleated RBC % PT with INR INR Sodium Potassium Chloride Carbon Dioxide Anion Gap BUN Creatinine Est GFR (CKD-EPI)AfAm Est GFR (CKD-EPI)NonAf POC Glucometer Random Glucose Lactic Acid Calcium Total Bilirubin Direct Bilirubin AST ALT Alkaline Phosphatase Troponin I Total Protein Albumin Lipase Blood Type A POSITIVE Antibody Screen Negative Active Medications Generic Name Dose Route Start Last Admin Trade Name Freq PRN Reason Stop Dose Admin Acetaminophen 1,000 mg 11/30/19 17:45 11/30/19 18:00 Ofirmev Injection - IVPB 12/01/19 16:46 1,000 mg Q6H PRN Administration PAIN LEVEL 1-5 Chlorhexidine Gluconate 1 applic 11/30/19 22:00 Hibiclens For Decolonization - TP HS [facility] Fentanyl 25 mcg 11/30/19 17:08 11/30/19 17:35 Sublimaze Injection - IVPUSH 25 mcg [id number] PRN Administration PAIN-PACU ORDER X 4 DOSES ONLY Hydromorphone HCl 0.25 mg 11/30/19 17:08 Dilaudid Vial - IVPUSH 12/01/19 17:07 Q1H PRN PAIN LEVEL 6-10 Sodium Chloride 1,000 mls @ 42 mls/hr 11/30/19 17:45 11/30/19 19:40 1/2 Normal Saline IV 42 mls/hr ASDIR [facility] Administration Insulin Aspart 1 vial 12/01/19 07:00 Novolog Vial Sliding Scale - SQ TIDAC [facility] Protocol Levetiracetam 500 mg 12/01/19 10:00 Keppra Injection - IVPB DAILY [facility] Mupirocin 1 applic 11/30/19 22:00 Bactroban Ointment (For Decolonization) - NS 12/05/19 21:59 BID [facility] Ondansetron HCl 4 mg 11/30/19 17:45 Zofran Injection IVPUSH Q6H PRN NAUSEA ASSESSMENT/PLAN: Patient is a 89 YO F with PMH HTN, HLD, CHF, afib (on eliquis), DM, GERD, anemia, asthma, ESRD on HD (Friday/Friday/Friday [last HD on 11/28]), COPD (on 2 L), and h/o SBO presents with nausea and vomiting & intermittent abdominal pain. Found to SBO on CT scan and underwent incarcerated left femoral hernia repair with plug. POD#0. Admitted to ICU for monitoring. Neuro Patient unable to answer questions as she is confused. Discussed with daughter. She endorses that patient is sometimes confused, which is normal for her. #seizures -continue keppra 500 mg IVPB Daily Cardio #HTN #HTN -PO meds were held prior to surgery. Will evaluate patients BP -home medication is telmisartan/amlodipine #Afib: will consider restarting home eliquis 2.5 mg PO BID in the morning if patient able to tolerate PO #CHF: -home medication is isosorbide mononitrate 30 mg PO daily, ranolazine 500 mg PO BID #HLD: -home medication is lipitor 20 mg PO HS Pulm #COPD (on 2L) Home medication Albuterol inhaler 1 puff IH TID PRN GI #SBO. -POD #0 incarcerated left femoral hernia repair with plug -CTAP: Dilated small bowel loops concerning for obstruction; Transition point is suspected to occur at a left inguinal hernia, which contains a portion of dilated small bowel with adjacent collapse of bowel caliber. Ascites. Small hiatal hernia -NPO -zofran 4 mg IV push Q6H PRN for nausea; QTC 444 #Hyperbilirubinemia Total bilirubin: 1.5. Direct bilirubin 0.2 Renal #ESRD on HD (Friday/Friday/Friday) -last HD on 11/28 -Renal (Dr. Reis) following. -BUN/Cr: 36.8/4.9 -1/2 NS @ 42 ENDO #DM - BGM TIDAC -ISS TIDAC DVT ppx - SCD's -will consider restarting home eliquis 2.5 mg PO BID in the morning if patient able to tolerate PO FEN - 1/2 NS @ 42 per [place] -monitor lytes -NPO DISPO Maintain ICU Dispo: We will continue to follow the patient. Thank you for this consultative opportunity. ATTENDING PHYSICIAN STATEMENT I saw and evaluated the patient. I reviewed the resident's note and discussed the case with the resident. I agree with the resident's findings and plan as documented. SUBJECTIVE: OBJECTIVE: ASSESSMENT AND PLAN:
[2019-11-30] MEDS ORDERED: HALOPERIDOL LACTATE 5 MG/ML IM ONE (21:59)
[2019-11-30] MEDS: MUPIROCIN 2% TOPICAL OINTMENT FOR DECOLONIZATION NS SCH (23:46)
[2019-11-30] MEDS: CHLORHEXIDINE GLUCONATE 4% CLEANSER FOR DECOLONIZATION TP SCH (23:46)
[2019-12-01] MEDS: INSULIN SLIDING SCALE (NOVOLOG) 1 VIAL SQ SCH ×3 (06:53→17:11)
[2019-12-01 07:45] LABS: BASO % 0.3 % (0-2.0); HEMATOCRIT 29.1 % (32.4-45.2); HEMOGLOBIN 9.6 GM/dL (10.7-15.3); LYMPH % 15.2 % (8-40); MCH 29.7 pg (25.7-33.7); MCHC 33.1 g/dl (32.0-36.0); MEAN CELL VOLUME 89.8 fl (80-96); MEAN PLT VOLUME 8.6 fl (7.5-11.1); MONO % 7.7 % (3.8-10.2); NEUT % 75.8 % (42.8-82.8); PLATELET COUNT 215 K/MM3 (134-434); RBC 3.24 M/mm3 (3.60-5.2); RDW 16.5 % (11.6-15.6)
[2019-12-01 08:23] LABS: ALBUMIN 3.7 g/dl (3.4-5.0); CALCIUM 9.3 mg/dL (8.5-10.1); CREATININE 6.1 mg/dL (0.55-1.3); MAGNESIUM 2.5 mg/dL (1.8-2.4); PHOSPHOROUS 5.6 mg/dL (2.5-4.9); TOT PROT 6.8 g/dl (6.4-8.2)
[2019-12-01] MEDS: APIXABAN 2.5 MG TABLET PO SCH ×2 (09:00→21:25)
[2019-12-01] MEDS ORDERED: ALBUTEROL SO4 HFA INHALER IH PRN (09:23)
--- NOTE | 2019-12-01 09:49 | CONSULT ---
Admitting History and Physical - Admission History of Present Illness: 89 y/o female with a history of ESRD on HD, COPD on 2 L, anema, CHF, DM, GERD. HTN, HLOD, afib, and previous SBO's who is admitted for SBO. Operative Date: 11/30/19 Pre-Operative Diagnosis: Incarcerated left inguinal hernia Operation: incarcerated left femoral hernia repair with plug Selected Entries 12/01/19 12/01/19 12/01/19 00:00 02:00 04:00 Supper Temperature 98.1 F Pulse Rate 77 98 H 96 H Blood Pressure 184/86 H 174/87 H 170/85 12/01/19 12/01/19 06:00 07:18 Supper NPO Temperature 98.5 F Pulse Rate 86 95 H Blood Pressure 173/93 H 156/92 Laboratory Tests 11/30/19 12/01/19 14:15 07:02 WBC 8.0 COVID-19 ([facility]) Not detected Last seen by me 11/2018, tolerated reg diet/thin liquid Pt was confused, with concern for dysphagia yesterday. Pt is calm today, responsive, verbal. History Source: Medical Record Limitations to Obtaining History: Clinical Condition - Past Medical History [employer]: Yes: Dementia Cardiovascular: Yes: HTN Pulmonary: Yes: Asthma, COPD, O2 Dependent, Pneumonia Gastrointestinal: Yes: GERD Renal/: Yes: Renal Inusuff, Hemodialysis, Renal Calculi (maybe- she had flank pain) ...LMP: 03/22/89 ...: No Endocrine: Yes: Diabetes Mellitus - Past Surgical History Past Surgical History: Yes: AV Fistula/Graft - Advance Directives Advance Directives: Yes: Health Care Proxy - Smoking History Smoking history: Never smoked Have you smoked in the past 12 months: No Aproximately how many cigarettes per day: 0 If you are a former smoker, when did you quit?: 50 YEARS - Alcohol/Substance Use Hx Alcohol Use: No History - Admission Reason For Visit: SMALL BOWEL OBSTRUCTION - Diagnostics CT Scan: Report Reviewed - General Mental Status: Awake and Alert, Able to Follow Commands Attention: Intact Ability to Follow Directions: Good Head/Neck Control: Good - Hearing Hearing: Normal Hearing Aide: No With Patient: No Speech Evaluation - Communication Primary Language: FAROESE CREOLE Secondary Language: BULGARIAN (some) Communication: Yes: Within Normal Limits - Speech Production Intelligibility: Yes: WNL - Speech Characteristics Voice Loudness: Normal Voice Pitch: Yes: Normal Voice Phonatory-based Quality: Yes: Normal Speech Pattern: Normal Speech Clarity: < 100% Nasal Resonance: Normal Articulation: Yes: Precise Rate of Speech: Intact - Language/Auditory Comprehension Follows: Yes: 1 Stage Simple Commands Observation: Able to respond to yes/no queries: Yes, Comprehends Conversational Speech: Yes - Language/Verbal Expression Functional Communication Status: Yes: WNL (seems intact. Language barrier) - Swallow Evaluation/Bedside Assessment Current Nutritional Intake: NPO Oral Secretions: Yes: WFL Dentition: Yes: Adequate Facial Symmetry at Rest: Symmetrical Facial Symmetry on Retraction: Symmetrical Facial Movement: Controlled Against Resistance Opening: Normal Against Resistance Closing: Normal Lingual Movement: Symmetric Lingual Speed of Movement: Normal Lingual Movement Strgth Against Opposition: Normal Laryngeal Elevation: WFL Laryngeal Movement: Able to Palpate Rate of Intake: WFL Labial Seal: WFL A-P Transit: WFL Timing of Swallow: WFL Coughing/Throat Clear: No (assessed with juice only with good tolerance) Recommendations - Speech Evaluation, Impression/Plan Impression: Verbal. Intelligibility WNL. Swallowing assessed with juice only with good tolerance. Per surgery, clear liquids suggested. - Dysphagia Impressions/Plan Swallowing Skills: WFL Dysphagia Impressions: No Impairment *Silent aspiration: cannot be R/O at bedside - Recommendations Diet Consistency: Other (clear liquids)
[2019-12-01] MEDS ORDERED: ISOSORBIDE MONONITRATE 30 MG TAB.SR.24H (FP) PO SCH (10:00)
[2019-12-01] MEDS ORDERED: amLODIPine BESYLATE 10 MG TABLET (FP) PO SCH (10:00)
[2019-12-01] MEDS ORDERED: levETIRAcetam 500 MG/5 ML INJECTION VIAL IVPB SCH ×2 (10:00)
--- NOTE | 2019-12-01 10:12 | PN ---
Progress Note (short form) - Note Progress Note: Surgery: Pt for speech and swallow eval this am. As per nursing notes, pt pulling on lines overnight. No nausea or emesis. Voided. Vital Signs Period Temp Pulse Resp BP Sys/Betancourt Pulse Ox Last 24 Hr 97.8 F-98.8 F 77-108 13-23 152-185/56-98 95-100 GEN; Alert ABD: soft, non-distended, non-tedner. Dressing c/d/i LE:No calf tenderness or swelling noted b/l. SCDs in place. +2 Dp pulses CBC, BMP 12/01/19 07:02 12/01/19 07:02 A/p: 89 yo female s/p Left inguinal hernia repair for incarcerated femoral hernia, POD#1 May begin diet when cleared by speech and swallow OOB to chair Resume eliquis this am D/w Dr. Waggoner
[2019-12-01] MEDS: RANOLAZINE E.R. 500 MG TABLET (FP) PO SCH ×2 (10:33→21:25)
[2019-12-01] MEDS: MUPIROCIN 2% TOPICAL OINTMENT FOR DECOLONIZATION NS SCH ×2 (10:41→21:24)
--- NOTE | 2019-12-01 11:00 | EKG ---
Test Reason : Blood Pressure : / mmHG Vent. Rate : 096 BPM Atrial Rate : 096 BPM P-R Int : 200 ms QRS Dur : 090 ms QT Int : 352 ms P-R-T Axes : 082 053 088 degrees QTc Int : 444 ms NORMAL SINUS RHYTHM MINIMAL VOLTAGE CRITERIA FOR LVH, MAY BE NORMAL VARIANT NONSPECIFIC T WAVE ABNORMALITY ABNORMAL ECG WHEN COMPARED WITH ECG OF 23-OCT-2019 22:59, NO SIGNIFICANT CHANGE WAS FOUND Confirmed by MD Nargis, Elvis ([id number]) on 12/01/2019 11:00:21 AM Referred By: Confirmed By:Elvis Barillas MD
--- NOTE | 2019-12-01 11:15 | PN ---
Teaching Attending Note Name of Resident: Floyd Cuello ATTENDING PHYSICIAN STATEMENT I saw and evaluated the patient. I reviewed the resident's note and discussed the case with the resident. I agree with the resident's findings and plan as documented. SUBJECTIVE: Pt seen and examined in the ICU. s/p incarcerated hernia repair. No overnight ev ents. OBJECTIVE: Vital Signs Period Temp Pulse Resp BP Sys/Betancourt Pulse Ox Last 24 Hr 97.8 F-98.8 F 77-108 13-23 147-185/56-98 95-100 Intake & Output 11/28/19 11/29/19 11/30/19 12/01/19 23:59 23:59 23:59 23:59 Intake Total 401 294 Output Total 5 Balance 396 294 Weight 40 kg 20.894 kg Gen: NAD at rest Heart: RRR Lung: decreased breath sounds at the bases Abd: soft, nontender Ext: no edema, dressings clean CBC, BMP 12/01/19 07:02 12/01/19 07:02 Active Medications Acetaminophen (Ofirmev Injection -) 1,000 mg IVPB Q6H PRN PRN Reason: PAIN LEVEL 1-5 Stop: 12/01/19 16:46 Last Admin: 11/30/19 18:00 Dose: 1,000 mg Documented by: Albuterol Sulfate (Ventolin Hfa Inhaler -) 1 puff IH TID PRN PRN Reason: SHORTNESS OF BREATH Amlodipine Besylate (Norvasc -) 10 mg PO DAILY [facility] Last Admin: 12/01/19 10:30 Dose: 10 mg Documented by: Apixaban (Eliquis -) 2.5 mg PO BID [facility] Last Admin: 12/01/19 09:00 Dose: 2.5 mg Documented by: Atorvastatin Calcium (Lipitor -) 20 mg PO HS [facility] Chlorhexidine Gluconate (Hibiclens For Decolonization -) 1 applic TP [facility] Last Admin: 11/30/19 23:46 Dose: Not Given Documented by: Epoetin Nnamdi-epbx (Retacrit) 4,000 unit IVPUSH ONCE ONE Stop: 12/01/19 09:26 Fentanyl (Sublimaze Injection -) 25 mcg IVPUSH [id number] PRN PRN Reason: PAIN-PACU ORDER X 4 DOSES ONLY Last Admin: 11/30/19 17:35 Dose: 25 mcg Documented by: Hydromorphone HCl (Dilaudid Vial -) 0.25 mg IVPUSH Q1H PRN PRN Reason: PAIN LEVEL 6-10 Stop: 12/01/19 17:07 Sodium Chloride (1/2 Normal Saline) 1,000 mls @ 42 mls/hr IV ASDIR [facility] Last Admin: 11/30/19 19:40 Dose: 42 mls/hr Documented by: Sodium Chloride (Normal Saline -) 250 mls @ 3,000 mls/hr IV PRN PRN PRN Reason: Hypotension during Dialysis Stop: 12/02/19 09:25 Insulin Aspart (Novolog Vial Sliding Scale -) 1 vial SQ TIDAC [facility]; Protocol Last Admin: 12/01/19 06:53 Dose: Not Given Documented by: Isosorbide Mononitrate (Imdur -) 30 mg PO DAILY [facility] Last Admin: 12/01/19 10:31 Dose: 30 mg Documented by: Levetiracetam (Keppra Injection -) 500 mg IVPB DAILY [facility] Last Admin: 12/01/19 09:00 Dose: 500 mg Documented by: Mupirocin (Bactroban Ointment (For Decolonization) -) 1 applic NS BID [facility] Stop: 12/05/19 21:59 Last Admin: 12/01/19 10:41 Dose: 1 applic Documented by: Ondansetron HCl (Zofran Injection) 4 mg IVPUSH Q6H PRN PRN Reason: NAUSEA Ranolazine (Ranexa -) 500 mg PO BID [facility] Last Admin: 12/01/19 10:33 Dose: 500 mg Documented by: ASSESSMENT AND PLAN: Small Bowel Obstruction Incarcerated Left Inguinal Hernia s/p repair POD 1 CAD LV Diastolic Dysfunction Atrial Fibrillation COPD Seizure Disorder HTN Hyperlipidemia - pain control - resume meds - PO as tolerated - d/c IVF if tolerating PO - rate control - continue anticoagulation - DVT prophylaxis - can monitor on floor
--- NOTE | 2019-12-01 11:35 | HOSP ---
Physical Examination Vital Signs: Vital Signs Temperature 97.9 F 12/01/19 10:00 Pulse Rate 95 H 12/01/19 10:00 Respiratory Rate 16 12/01/19 10:00 Blood Pressure 147/63 12/01/19 10:00 O2 Sat by Pulse Oximetry (%) 100 12/01/19 10:00 Constitutional: Yes: No Distress HENT: Yes: Atraumatic, Normocephalic Cardiovascular: Yes: Regular Rate and Rhythm, S1, S2 Respiratory: Yes: WNL, CTA Bilaterally Gastrointestinal: Yes: Soft, Hypoactive Bowel Sounds Labs: CBC, BMP 12/01/19 07:02 12/01/19 07:02 Hospitalist Encounter Assessment: Patient is a 89 YO F with PMH HTN, HLD, CHF, afib (on eliquis), DM, GERD, anemia, asthma, ESRD on HD (Friday/Friday/Friday [last HD on 11/28]), COPD (on 2 L), and h/o SBO presents with nausea and vomiting & intermittent abdominal pain for 2 days. For the last few days, she has had decreased oral intake and several days of constipation. Last BM was ~11/25-, per daughter. She takes MiraLAX and Linzess, but her symptoms did not improve. Her last meal was the morning of 11/28, but has been having non-bloody, nonbilious vomiting since. On arrival to ED, patient had several episodes of emesis and was given tylenol for pain & zofran for n/v. She was hypertensive at 195/97, which was managed with hydralazine. CT scan of abdomen showed Dilated small bowel loops concerning for obstruction; Transition point is suspected to occur at a left inguinal hernia, which contains a portion of dilated small bowel with adjacent collapse of bowel caliber. Patient underwent an incarcerated left femoral hernia repair with plug with estimated blood loss 5 mL. POD#1. Admitted to ICU for monitoring. On arrival to the ED, she was somnolent and confused; unable to answer questions. The team discussed her mental status with the daughter, who endorsed that the patient is sometimes confused, which is normal for her. Today, the patient is awake and alert, but still not oriented. PO meds were held yesterday due to confusion and somnolence, but patient is awake and alert today, so PO meds were restarted. Patient is stable for transfer to [facility] surg
--- NOTE | 2019-12-01 11:46 | PN ---
Physical Exam: SUBJECTIVE: Patient seen and examined. Overnight, patient was agitated, and she pulled out her A-line. Not oriented X3, but is conversant. Denies abdominal pain, N/V. OBJECTIVE: Vital Signs Period Temp Pulse Resp BP Sys/Betancourt Pulse Ox Last 24 Hr 97.8 F-98.8 F 77-108 13-23 147-185/56-98 95-100 GENERAL: Alert and awake. Not oriented. does not know person, place, time HEENT: Normal with no signs of trauma. EYES: Pupils equal, round and reactive to light, extraocular movements intact, sclera anicteric, conjunctiva clear. No lid lag. EARS, NOSE, THROAT: Ears normal, nares patent, oropharynx clear without exudates. Moist mucous membranes. LUNGS: Breath sounds equal, clear to auscultation bilaterally. No wheezes, and no crackles. No accessory muscle use. HEART: Regular rate and rhythm, normal S1 and S2 without murmur, rub or gallop. ABDOMEN: Soft, nontender, nondistended, hypoactive bowel sounds. surgical site bandaged. UPPER EXTREMITIES: 2+ pulses, warm, well-perfused. No cyanosis. No peripheral edema. AV fistula Left UE (palpable thrill/audible bruit) LOWER EXTREMITIES: 2+ pulses, warm, well-perfused. No calf tenderness. No peripheral edema. NEUROLOGICAL: gait not assessed. Laboratory Results - last 24 hr 11/30/19 11/30/19 12/01/19 14:05 14:15 06:40 WBC RBC Hgb Hct MCV MCH MCHC RDW Plt Count MPV Absolute Neuts (auto) Neutrophils % Lymphocytes % Monocytes % Eosinophils % Basophils % Nucleated RBC % Sodium Potassium Chloride Carbon Dioxide Anion Gap BUN Creatinine Est GFR (CKD-EPI)AfAm Est GFR (CKD-EPI)NonAf POC Glucometer 79 Random Glucose Calcium Phosphorus Magnesium Total Bilirubin AST ALT Alkaline Phosphatase Total Protein Albumin COVID-19 ([facility]) Not detected Blood Type A POSITIVE Antibody Screen Negative 12/01/19 12/01/19 12/01/19 07:02 07:02 11:28 WBC 8.0 RBC 3.24 L Hgb 9.6 L Hct 29.1 L D MCV 89.8 MCH 29.7 MCHC 33.1 RDW 16.5 H Plt Count 215 D MPV 8.6 Absolute Neuts (auto) 6.0 Neutrophils % 75.8 Lymphocytes % 15.2 D Monocytes % 7.7 Eosinophils % 1.0 D Basophils % 0.3 Nucleated RBC % 0 Sodium 141 Potassium 5.0 Chloride 101 Carbon Dioxide 32 Anion Gap 8 BUN 54.0 H Creatinine 6.1 H Est GFR (CKD-EPI)AfAm 6.50 Est GFR (CKD-EPI)NonAf 5.61 POC Glucometer 67 Random Glucose 93 Calcium 9.3 Phosphorus 5.6 H Magnesium 2.5 H Total Bilirubin 1.0 AST 14 L ALT 9 L Alkaline Phosphatase 67 Total Protein 6.8 Albumin 3.7 COVID-19 ([facility]) Blood Type Antibody Screen Active Medications Generic Name Dose Route Start Last Admin Trade Name Freq PRN Reason Stop Dose Admin Acetaminophen 1,000 mg 11/30/19 17:45 11/30/19 18:00 Ofirmev Injection - IVPB 12/01/19 16:46 1,000 mg Q6H PRN Administration PAIN LEVEL 1-5 Albuterol Sulfate 1 puff 12/01/19 09:23 Ventolin Hfa Inhaler - IH TID PRN SHORTNESS OF BREATH Amlodipine Besylate 10 mg 12/01/19 10:00 12/01/19 10:30 Norvasc - PO 10 mg DAILY [facility] Administration Apixaban 2.5 mg 12/01/19 10:00 12/01/19 09:00 Eliquis - PO 2.5 mg BID [facility] Administration Atorvastatin Calcium 20 mg 12/01/19 22:00 Lipitor - PO HS [facility] Chlorhexidine Gluconate 1 applic 11/30/19 22:00 11/30/19 23:46 Hibiclens For Decolonization - TP Not Given [facility] Epoetin Nnamdi-epbx 4,000 unit 12/01/19 09:25 Retacrit IVPUSH 12/01/19 09:26 ONCE ONE Fentanyl 25 mcg 11/30/19 17:08 11/30/19 17:35 Sublimaze Injection - IVPUSH 25 mcg [id number] PRN Administration PAIN-PACU ORDER X 4 DOSES ONLY Hydromorphone HCl 0.25 mg 11/30/19 17:08 Dilaudid Vial - IVPUSH 12/01/19 17:07 Q1H PRN PAIN LEVEL 6-10 Sodium Chloride 1,000 mls @ 42 mls/hr 11/30/19 17:45 11/30/19 19:40 1/2 Normal Saline IV 42 mls/hr ASDIR [facility] Administration Sodium Chloride 250 mls @ 3,000 mls/hr 12/01/19 09:25 Normal Saline - IV 12/02/19 09:25 PRN PRN Hypotension during Dialysis Insulin Aspart 1 vial 12/01/19 07:00 12/01/19 06:53 Novolog Vial Sliding Scale - SQ Not Given [facility] Protocol Isosorbide Mononitrate 30 mg 12/01/19 10:00 12/01/19 10:31 Imdur - PO 30 mg DAILY [facility] Administration Levetiracetam 500 mg 12/01/19 10:00 12/01/19 09:00 Keppra Injection - IVPB 500 mg DAILY [facility] Administration Mupirocin 1 applic 11/30/19 22:00 12/01/19 10:41 Bactroban Ointment (For Decolonization) - NS 12/05/19 21:59 1 applic BID [facility] Administration Ondansetron HCl 4 mg 11/30/19 17:45 Zofran Injection IVPUSH Q6H PRN NAUSEA Ranolazine 500 mg 12/01/19 10:00 12/01/19 10:33 Ranexa - PO 500 mg BID [facility] Administration ASSESSMENT/PLAN: Patient is a 89 YO F with PMH HTN, HLD, CHF, afib (on eliquis), DM, GERD, anemia, asthma, ESRD on HD (Friday/Friday/Friday [last HD on 11/28]), COPD (on 2 L), and h/o SBO presents with nausea and vomiting & intermittent abdominal pain. Found to SBO on CT scan and underwent incarcerated left femoral hernia repair with plug. POD#1. Admitted to ICU for monitoring. Neuro Patient unable to answer questions as she is confused. Discussed with daughter. She endorses that patient is sometimes confused, which is normal for her. #seizures -continue keppra 500 mg IVPB Daily Cardio #HTN #HTN -PO meds were held prior to surgery. Will evaluate patients BP -started amlodipine 10 mg daily instead of home medication telmisartan/amlodipine due to patient's renal status #Afib: restarted home dose eliquis 2.5 mg PO BID in the morning if patient able to tolerate PO #CHF: -restarted home dose isosorbide mononitrate 30 mg PO daily, ranolazine 500 mg PO BID #HLD: -restarted home dose lipitor 20 mg PO HS Pulm #COPD (on 2L) restarted home medication Albuterol inhaler 1 puff IH TID PRN GI #SBO. -POD #1 incarcerated left femoral hernia repair with plug -CTAP: Dilated small bowel loops concerning for obstruction; Transition point is suspected to occur at a left inguinal hernia, which contains a portion of dilated small bowel with adjacent collapse of bowel caliber. Ascites. Small hiatal hernia -NPO -zofran 4 mg IV push Q6H PRN for nausea; QTC 444 #Hyperbilirubinemia Total bilirubin: 1.5. Renal #ESRD on HD (Friday/Friday/Friday) -last HD on 11/28 -Renal (Dr. Reis) following. -BUN/Cr increased from 36.8/4.9 to 54/6.1 -03/04 NS @ 42 ENDO #DM - BGM TIDAC -ISS TIDAC DVT ppx - SCD's -restarted home dose 2.5 mg PO BID FEN - 03/04 NS @ 42 per [place] -monitor lytes -clear liquids per surgery and speech & swallow notes DISPO transfer to med surg ATTENDING PHYSICIAN STATEMENT I saw and evaluated the patient. I reviewed the resident's note and discussed the case with the resident. I agree with the resident's findings and plan as documented. SUBJECTIVE: OBJECTIVE: ASSESSMENT AND PLAN:
--- NOTE | 2019-12-01 12:11 | PN ---
Progress Note (short form) - Note Progress Note: Patient is a 89 y/o female with a history of ESRD on HD, COPD on 2 L, anema, CHF, DM, GERD. HTN, HLOD, afib, and previous SBO's who was admitted for SBO. Patient underwent surgery for incarcerated left femoral hernia repair with plug. Evaluated by speech and swallow. Vital Signs Temperature 97.9 F 12/01/19 10:00 Pulse Rate 95 H 12/01/19 10:00 Respiratory Rate 16 12/01/19 10:00 Blood Pressure 147/63 12/01/19 10:00 O2 Sat by Pulse Oximetry (%) 100 12/01/19 10:00 Physical Exam: General: no acute distress, awake, alert Heart: RRR Lungs:CTAL Abdomen: wrapping surrounding abdomen MSK: no pitting edema CBC, BMP 12/01/19 07:02 12/01/19 07:02 #incarcerated left femoral hernia repair with plug - POD#1 - patient on clear liquids - eliquis for dvt ppx - monitored by surgical team closely Patient stable for downgrade
[2019-12-01] MEDS ORDERED: SODIUM CHLORIDE 250 ML IV PRN (12:59)
--- NOTE | 2019-12-01 13:01 | PN ---
Progress Note (short form) - Note Progress Note: Anesthesia Post Op Note Pt s/p GA for inguinal hernia repair Pt awake alert in bed baseline unchanged pt uncooperative as per notes no n/v, puritis VSS pain mild no apparent anesthesia comp Morris Carson
--- NOTE | 2019-12-01 13:03 | PN ---
Progress Note, Physician History of Present Illness: Pt seen and examined at bedside. She had surgery yesterday. She appears comfortable. - Current Medication List Current Medications: Active Medications Acetaminophen (Ofirmev Injection -) 1,000 mg IVPB Q6H PRN PRN Reason: PAIN LEVEL 1-5 Stop: 12/01/19 16:46 Last Admin: 11/30/19 18:00 Dose: 1,000 mg Documented by: Albuterol Sulfate (Ventolin Hfa Inhaler -) 1 puff IH TID PRN PRN Reason: SHORTNESS OF BREATH Amlodipine Besylate (Norvasc -) 10 mg PO DAILY [facility] Last Admin: 12/01/19 10:30 Dose: 10 mg Documented by: Apixaban (Eliquis -) 2.5 mg PO BID [facility] Last Admin: 12/01/19 09:00 Dose: 2.5 mg Documented by: Atorvastatin Calcium (Lipitor -) 20 mg PO [facility] Chlorhexidine Gluconate (Hibiclens For Decolonization -) 1 applic TP [facility] Last Admin: 11/30/19 23:46 Dose: Not Given Documented by: Epoetin Nnamdi-epbx (Retacrit) 4,000 unit IVPUSH ONCE ONE Stop: 12/01/19 13:31 Fentanyl (Sublimaze Injection -) 25 mcg IVPUSH [id number] PRN PRN Reason: PAIN-PACU ORDER X 4 DOSES ONLY Last Admin: 11/30/19 17:35 Dose: 25 mcg Documented by: Hydromorphone HCl (Dilaudid Vial -) 0.25 mg IVPUSH Q1H PRN PRN Reason: PAIN LEVEL 6-10 Stop: 12/01/19 17:07 Sodium Chloride (1/2 Normal Saline) 1,000 mls @ 42 mls/hr IV ASDIR [facility] Last Admin: 11/30/19 19:40 Dose: 42 mls/hr Documented by: Sodium Chloride (Normal Saline -) 250 mls @ 3,000 mls/hr IV PRN PRN PRN Reason: Hypotension during Dialysis Stop: 12/02/19 12:58 Insulin Aspart (Novolog Vial Sliding Scale -) 1 vial SQ TIDAC [facility]; Protocol Last Admin: 12/01/19 06:53 Dose: Not Given Documented by: Isosorbide Mononitrate (Imdur -) 30 mg PO DAILY [facility] Last Admin: 12/01/19 10:31 Dose: 30 mg Documented by: Levetiracetam (Keppra Injection -) 500 mg IVPB DAILY [facility] Last Admin: 12/01/19 09:00 Dose: 500 mg Documented by: Mupirocin (Bactroban Ointment (For Decolonization) -) 1 applic NS BID [facility] Stop: 12/05/19 21:59 Last Admin: 12/01/19 10:41 Dose: 1 applic Documented by: Ondansetron HCl (Zofran Injection) 4 mg IVPUSH Q6H PRN PRN Reason: NAUSEA Ranolazine (Ranexa -) 500 mg PO BID [facility] Last Admin: 12/01/19 10:33 Dose: 500 mg Documented by: - Objective Vital Signs: Vital Signs Temperature 97.9 F 12/01/19 10:00 Pulse Rate 111 H 12/01/19 12:00 Respiratory Rate 19 12/01/19 12:00 Blood Pressure 129/67 12/01/19 12:00 O2 Sat by Pulse Oximetry (%) 98 12/01/19 12:00 Constitutional: Yes: Calm Eyes: Yes: Conjunctiva Clear HENT: Yes: Atraumatic Neck: Yes: Supple Cardiovascular: Yes: S1, S2 Respiratory: Yes: CTA Bilaterally Gastrointestinal: Yes: Normal Bowel Sounds, Soft Genitourinary: Yes: WNL Musculoskeletal: Yes: WNL Edema: No Neurological: Yes: Oriented Psychiatric: Yes: Oriented Labs: CBC, BMP 12/01/19 07:02 12/01/19 07:02 INR, PTT INR 0.99 (0.83-1.09) 11/30/19 08:20 Problem List - Problems (1) ESRD (end stage renal disease) Code(s): N18.6 - END STAGE RENAL DISEASE (2) Abdominal pain Code(s): R10.9 - UNSPECIFIED ABDOMINAL PAIN Qualifiers: Abdominal location: generalized Qualified Code(s): R10.84 - Generalized abdominal pain (3) SBO (small bowel obstruction) Code(s): K56.609 - UNSP INTESTNL OBST, UNSP TO PARTIAL VERSUS COMPLETE OBST (4) Vomiting Code(s): R11.10 - VOMITING, UNSPECIFIED Qualifiers: Vomiting type: unspecified Vomiting Intractability: non-intractable Nausea presence: unspecified Qualified Code(s): R11.10 - Vomiting, unspecified (5) Constipation Code(s): K59.00 - CONSTIPATION, UNSPECIFIED Qualifiers: Constipation type: unspecified constipation type Qualified Code(s): K59.00 - Constipation, unspecified (6) Hx SBO Code(s): Z87.19 - PERSONAL HISTORY OF OTHER DISEASES OF THE DIGESTIVE SYSTEM (7) Diabetes Code(s): E11.9 - TYPE 2 DIABETES MELLITUS WITHOUT COMPLICATIONS Qualifiers: Diabetes mellitus type: type 2 Diabetes mellitus custodial insulin use: without custodial use Diabetes mellitus complication status: with kidney complications Diabetes mellitus complication detail: with chronic kidney disease Chronic kidney disease stage: on chronic dialysis Qualified Code(s): E11.22 - Type 2 diabetes mellitus with diabetic chronic kidney disease; N18.6 - End stage renal disease; Z99.2 - Dependence on renal dialysis (8) Hypercholesterolemia Code(s): E78.00 - PURE HYPERCHOLESTEROLEMIA, UNSPECIFIED (9) Hypertension Code(s): I10 - ESSENTIAL (PRIMARY) HYPERTENSION Qualifiers: Hypertension type: essential hypertension Qualified Code(s): I10 - Essential (primary) hypertension (10) Pericardial effusion Code(s): I31.3 - PERICARDIAL EFFUSION (NONINFLAMMATORY) Assessment/Plan Current Medications Generic Name Dose Route Start Last Admin Trade Name Freq PRN Reason Stop Dose Admin Acetaminophen 1,000 mg 11/30/19 17:45 11/30/19 18:00 Ofirmev Injection - IVPB 12/01/19 16:46 1,000 mg Q6H PRN Administration PAIN LEVEL 1-5 Albuterol Sulfate 1 puff 12/01/19 09:23 Ventolin Hfa Inhaler - IH TID PRN SHORTNESS OF BREATH Amlodipine Besylate 10 mg 12/01/19 10:00 12/01/19 10:30 Norvasc - PO 10 mg DAILY [facility] Administration Apixaban 2.5 mg 12/01/19 10:00 12/01/19 09:00 Eliquis - PO 2.5 mg BID [facility] Administration Atorvastatin Calcium 20 mg 12/01/19 22:00 Lipitor - PO HS [facility] Chlorhexidine Gluconate 1 applic 11/30/19 22:00 11/30/19 23:46 Hibiclens For Decolonization - TP Not Given HS [facility] Epoetin Nnamdi-epbx 4,000 unit 12/01/19 13:30 Retacrit IVPUSH 12/01/19 13:31 ONCE ONE Fentanyl 25 mcg 11/30/19 17:08 11/30/19 17:35 Sublimaze Injection - IVPUSH 25 mcg [id number] PRN Administration PAIN-PACU ORDER X 4 DOSES ONLY Hydromorphone HCl 0.25 mg 11/30/19 17:08 Dilaudid Vial - IVPUSH 12/01/19 17:07 Q1H PRN PAIN LEVEL 6-10 Sodium Chloride 1,000 mls @ 42 mls/hr 11/30/19 17:45 11/30/19 19:40 1/2 Normal Saline IV 42 mls/hr [facility] Administration Sodium Chloride 250 mls @ 3,000 mls/hr 12/01/19 12:59 Normal Saline - IV 12/02/19 12:58 PRN PRN Hypotension during Dialysis Insulin Aspart 1 vial 12/01/19 07:00 12/01/19 06:53 Novolog Vial Sliding Scale - SQ Not Given TIDAC [facility] Protocol Isosorbide Mononitrate 30 mg 12/01/19 10:00 12/01/19 10:31 Imdur - PO 30 mg DAILY [facility] Administration Levetiracetam 500 mg 12/01/19 10:00 12/01/19 09:00 Keppra Injection - IVPB 500 mg DAILY [facility] Administration Mupirocin 1 applic 11/30/19 22:00 12/01/19 10:41 Bactroban Ointment (For Decolonization) - NS 12/05/19 21:59 1 applic BID [facility] Administration Ondansetron HCl 4 mg 11/30/19 17:45 Zofran Injection IVPUSH Q6H PRN NAUSEA Ranolazine 500 mg 12/01/19 10:00 12/01/19 10:33 Ranexa - PO 500 mg BID [facility] Administration Impression 1. ESRD 2. HTN 3. HLD 4. COPD 5. DM 6. pos heb b core 7. SBO 8. anemia 9. a-fib 10. 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 abdominal pain 13. r/o sbo Plan - HD today - surgery follow up - monitor bp with HD - will UF 0.5 liters - discussed with ICU team - bp stable - pt less agitated
[2019-12-01] MEDS ORDERED: EPOETIN ALFA-EPBX 4,000 UNIT/ML VIAL IVPUSH ONE (13:30)
[2019-12-01] MEDS: CHLORHEXIDINE GLUCONATE 4% CLEANSER FOR DECOLONIZATION TP SCH (21:25)
--- NOTE | 2019-12-01 21:34 | PN ---
Teaching Attending Note Name of Resident: Catia Mukherjee ATTENDING PHYSICIAN STATEMENT I saw and evaluated the patient. I reviewed the resident's note and discussed the case with the resident. I agree with the resident's findings and plan as documented. SUBJECTIVE: Patient seen and examined at bedside, stable for downgrade to floors, POD#1 for incarcerated hernia w/ plug VSS. OBJECTIVE: GA NAD, tired appearing, calm HEENT NC/AT, dry MM, neck supple Chest CTAB anteriorally CVS S1, S2+, RRR Abd abdomen wrapped in dressing, Mildly tender, decreased BS Ext no LE edema Vital Signs (72 hours) 11/30/19 11/30/19 11/30/19 07:33 14:18 14:59 Temperature 98.6 F 97.9 F Pulse Rate 107 H 108 H Pulse Rate [ 89 Left] Respiratory 22 H 20 19 Rate Blood Pressure 195/97 H 184/86 H Blood Pressure 159/75 [Left Arm] O2 Sat by Pulse 100 99 Oximetry (%) 11/30/19 11/30/19 11/30/19 16:52 17:05 17:20 Temperature 98.8 F Pulse Rate 92 H 92 H 91 H Pulse Rate [ Left] Respiratory 18 18 16 Rate Blood Pressure 159/68 153/66 182/85 H Blood Pressure [Left Arm] O2 Sat by Pulse 100 97 100 Oximetry (%) 11/30/19 11/30/19 11/30/19 17:35 17:50 18:05 Temperature Pulse Rate 89 87 88 Pulse Rate [ Left] Respiratory 18 18 16 Rate Blood Pressure 185/76 H 155/56 L 154/70 Blood Pressure [Left Arm] O2 Sat by Pulse 100 100 100 Oximetry (%) 11/30/19 11/30/19 11/30/19 18:20 18:35 18:50 Temperature Pulse Rate 89 82 85 Pulse Rate [ Left] Respiratory 18 14 18 Rate Blood Pressure 154/66 158/74 171/76 H Blood Pressure [Left Arm] O2 Sat by Pulse 100 100 100 Oximetry (%) 11/30/19 11/30/19 11/30/19 19:05 19:20 20:08 Temperature 97.8 F 98.2 F Pulse Rate 86 86 84 Pulse Rate [ Left] Respiratory 14 14 18 Rate Blood Pressure 171/73 H 152/66 168/65 Blood Pressure [Left Arm] O2 Sat by Pulse 100 100 100 Oximetry (%) 11/30/19 12/01/19 12/01/19 22:07 00:00 02:00 Temperature 98.1 F Pulse Rate 98 H 77 98 H Pulse Rate [ Left] Respiratory 22 H 13 22 H Rate Blood Pressure 173/98 H 184/86 H 174/87 H Blood Pressure [Left Arm] O2 Sat by Pulse 100 98 95 Oximetry (%) 12/01/19 12/01/19 12/01/19 04:00 06:00 07:18 Temperature 98.5 F Pulse Rate 96 H 86 95 H Pulse Rate [ Left] Respiratory 15 18 23 H Rate Blood Pressure 170/85 173/93 H 156/92 Blood Pressure [Left Arm] O2 Sat by Pulse 100 99 Oximetry (%) 12/01/19 12/01/19 12/01/19 10:00 12:00 13:50 Temperature 97.9 F 97.8 F Pulse Rate 95 H 111 H 92 H Pulse Rate [ Left] Respiratory 16 19 18 Rate Blood Pressure 147/63 129/67 130/64 Blood Pressure [Left Arm] O2 Sat by Pulse 100 98 Oximetry (%) 12/01/19 12/01/19 12/01/19 14:00 14:30 15:00 Temperature 97.6 F Pulse Rate 90 90 100 H Pulse Rate [ Left] Respiratory 25 H 18 18 Rate Blood Pressure 137/61 132/68 130/71 Blood Pressure [Left Arm] O2 Sat by Pulse 100 Oximetry (%) 12/01/19 12/01/19 12/01/19 15:30 16:00 16:30 Temperature 97.9 F Pulse Rate 94 H 89 89 Pulse Rate [ Left] Respiratory 18 22 H 18 Rate Blood Pressure 132/78 109/78 109/76 Blood Pressure [Left Arm] O2 Sat by Pulse 100 Oximetry (%) 12/01/19 12/01/19 12/01/19 17:00 17:30 18:00 Temperature 98.0 F Pulse Rate 80 82 98 H Pulse Rate [ Left] Respiratory 18 18 21 H Rate Blood Pressure 110/70 118/74 126/61 Blood Pressure [Left Arm] O2 Sat by Pulse 100 Oximetry (%) 12/01/19 20:00 Temperature Pulse Rate 93 H Pulse Rate [ Left] Respiratory 19 Rate Blood Pressure 139/72 Blood Pressure [Left Arm] O2 Sat by Pulse 100 Oximetry (%) Laboratory Results - last 24 hr 11/30/19 12/01/19 12/01/19 14:15 06:40 07:02 WBC 8.0 RBC 3.24 L Hgb 9.6 L Hct 29.1 L D MCV 89.8 MCH 29.7 MCHC 33.1 RDW 16.5 H Plt Count 215 D MPV 8.6 Absolute Neuts (auto) 6.0 Neutrophils % 75.8 Lymphocytes % 15.2 D Monocytes % 7.7 Eosinophils % 1.0 D Basophils % 0.3 Nucleated RBC % 0 Sodium Potassium Chloride Carbon Dioxide Anion Gap BUN Creatinine Est GFR (CKD-EPI)AfAm Est GFR (CKD-EPI)NonAf POC Glucometer 79 Random Glucose Calcium Phosphorus Magnesium Total Bilirubin AST ALT Alkaline Phosphatase Total Protein Albumin COVID-19 ([facility]) Not detected 12/01/19 12/01/19 12/01/19 07:02 11:28 16:37 WBC RBC Hgb Hct MCV MCH MCHC RDW Plt Count MPV Absolute Neuts (auto) Neutrophils % Lymphocytes % Monocytes % Eosinophils % Basophils % Nucleated RBC % Sodium 141 Potassium 5.0 Chloride 101 Carbon Dioxide 32 Anion Gap 8 BUN 54.0 H Creatinine 6.1 H Est GFR (CKD-EPI)AfAm 6.50 Est GFR (CKD-EPI)NonAf 5.61 POC Glucometer 67 125 Random Glucose 93 Calcium 9.3 Phosphorus 5.6 H Magnesium 2.5 H Total Bilirubin 1.0 AST 14 L ALT 9 L Alkaline Phosphatase 67 Total Protein 6.8 Albumin 3.7 COVID-19 ([facility]) 12/01/19 20:56 WBC RBC Hgb Hct MCV MCH MCHC RDW Plt Count MPV Absolute Neuts (auto) Neutrophils % Lymphocytes % Monocytes % Eosinophils % Basophils % Nucleated RBC % Sodium Potassium Chloride Carbon Dioxide Anion Gap BUN Creatinine Est GFR (CKD-EPI)AfAm Est GFR (CKD-EPI)NonAf POC Glucometer 70 Random Glucose Calcium Phosphorus Magnesium Total Bilirubin AST ALT Alkaline Phosphatase Total Protein Albumin COVID-19 ([facility]) Home Medications Medication Instructions Recorded Apixaban [Eliquis -] 2.5 mg PO BID tablet 06/13/18 Isosorbide Mononitrate [Imdur -] 30 mg PO DAILY tab.sr.24h 06/13/18 Sevelamer Carbonate [Renvela -] 800 mg PO TIDCM tab 06/13/18 Atorvastatin Ca [Lipitor] 20 mg PO HS 11/05/18 Ranolazine [Ranolazine ER] 500 mg PO BID 11/05/18 Albuterol Sulfate Inhaler - 1 puff IH TID PRN 10/24/19 [Ventolin HFA Inhaler -] Famotidine [Pepcid -] 20 mg PO DAILY 10/24/19 LORazepam [Ativan] 0.5 mg PO DAILY PRN 10/24/19 levETIRAcetam [Keppra Xr -] 1 tab PO DAILY 10/24/19 Bisacodyl Suppository [Dulcolax 10 mg RC DAILY PRN #7 supp.rect 10/25/19 Suppository -] Docusate Liquid [Colace Liquid -] 100 mg PO DAILY #1 ud 10/25/19 Polyethylene Glycol 3350 [Miralax 17 gm PO DAILY #1 bottle 10/25/19 (For Bowel Prep) -] Sennosides [Senna] 8.6 mg PO DAILY #30 capsule 10/25/19 Telmisartan/Amlodipine 1 each PO DAILY 11/30/19 [Telmisartan-Amlodipine 80-10] Current Medications Generic Name Dose Route Start Last Admin Trade Name Freq PRN Reason Stop Dose Admin Albuterol Sulfate 1 puff 12/01/19 09:23 Ventolin Hfa Inhaler - IH TID PRN SHORTNESS OF BREATH Amlodipine Besylate 10 mg 12/01/19 10:00 12/01/19 10:30 Norvasc - PO 10 mg DAILY [facility] Administration Apixaban 2.5 mg 12/01/19 10:00 12/01/19 21:25 Eliquis - PO 2.5 mg BID [facility] Administration Atorvastatin Calcium 20 mg 12/01/19 22:00 12/01/19 21:25 Lipitor - PO 20 mg HS [facility] Administration Chlorhexidine Gluconate 1 applic 11/30/19 22:00 12/01/19 21:25 Hibiclens For Decolonization - TP 1 applic HS [facility] Administration Fentanyl 25 mcg 11/30/19 17:08 11/30/19 17:35 Sublimaze Injection - IVPUSH 25 mcg [id number] PRN Administration PAIN-PACU ORDER X 4 DOSES ONLY Sodium Chloride 1,000 mls @ 42 mls/hr 11/30/19 17:45 11/30/19 19:40 1/2 Normal Saline IV 42 mls/hr ASD[facility] Administration Sodium Chloride 250 mls @ 3,000 mls/hr 12/01/19 12:59 Normal Saline - IV 12/02/19 12:58 PRN PRN Hypotension during Dialysis Insulin Aspart 1 vial 12/01/19 07:00 12/01/19 17:11 Novolog Vial Sliding Scale - SQ Not Given TIDAC [facility] Protocol Isosorbide Mononitrate 30 mg 12/01/19 10:00 12/01/19 10:31 Imdur - PO 30 mg DAILY [facility] Administration Levetiracetam 500 mg 12/01/19 10:00 12/01/19 09:00 Keppra Injection - IVPB 500 mg DAILY [facility] Administration Mupirocin 1 applic 11/30/19 22:00 12/01/19 21:24 Bactroban Ointment (For Decolonization) - NS 12/05/19 21:59 1 applic BID [facility] Administration Ondansetron HCl 4 mg 11/30/19 17:45 Zofran Injection IVPUSH Q6H PRN NAUSEA Ranolazine 500 mg 12/01/19 10:00 12/01/19 21:25 Ranexa - PO 500 mg BID [facility] Administration ASSESSMENT AND PLAN: 89 F Incarcerated hernia repair w/ plug POD#1 h/o abdominal surgeries w/ adhesions HTN HLD CAD CHF T2DM Seizure disorder ESRD on HD COPD/Asthma Afib on Eliquis Plan: HD schedule per renal service, appears clinically euvolemic Decrease use of opioids, recommend Tylenol IV for pain control Surgery team following Transfusion threshold >8.0 Hgb (CAD history) DVT ppx: Eliquis per Surgery team
[2019-12-01] MEDS ORDERED: ATORVASTATIN CA 20 MG TABLET (FP) PO SCH (22:00)
[2019-12-02] MEDS: SODIUM CHLORIDE 0.45% 1,000 ML IV SCH ×2 (06:03)
[2019-12-02] MEDS: INSULIN SLIDING SCALE (NOVOLOG) 1 VIAL SQ SCH ×3 (06:03→16:58)
[2019-12-02 06:53] LABS: HEMATOCRIT 23.7 % (32.4-45.2); MCH 29.9 pg (25.7-33.7); MCHC 33.6 g/dl (32.0-36.0); MEAN CELL VOLUME 88.8 fl (80-96); MEAN PLT VOLUME 8.9 fl (7.5-11.1); PLATELET COUNT 179 K/MM3 (134-434); RBC 2.67 M/mm3 (3.60-5.2); RDW 16.3 % (11.6-15.6); WHITE BLOOD COUNT 5.8 K/mm3 (4.0-10.0)
[2019-12-02 07:24] LABS: CALCIUM 8.3 mg/dL (8.5-10.1); CREATININE 3.6 mg/dL (0.55-1.3); MAGNESIUM 1.8 mg/dL (1.8-2.4); POTASSIUM 4.1 mmol/L (3.5-5.1)
[2019-12-02 07:29] LABS: BLOOD UREA NITROGEN 18.7 mg/dL (7-18)
--- NOTE | 2019-12-02 08:19 | PN ---
Progress Note (short form) - Note Progress Note: POD 2, s/p Left inguinal hernia repair for incarcerated femoral hernia Pt seen and examined. No issues overnight per RN. Pt with dementia. Vital Signs Temp 98.1 F 12/02/19 06:00 Pulse 60 12/02/19 08:00 Resp 92 H 12/02/19 08:00 BP 141/70 12/02/19 08:00 Pulse Ox 95 12/02/19 06:00 Intake & Output 12/01/19 12/01/19 12/02/19 11:59 23:59 11:59 Intake Total 294 1154 594 Output Total 4013 Balance 294 -2859 594 Weight 101 lb 10.13 oz 101 lb 10.13 oz Intake: IV 294 504 294 1/2 Normal Saline 1,000 294 504 294 ml @ 42 mls/hr IV [facility] Rx#:[id number] IVPB 400 Oral 250 300 Output: Urine 0 Void 0 Fluid Removed, 900 Hemodialysis Fluid Removed, 3113 Hemodialysis Other: Voiding Method Diaper Incontinent Indwelling Catheter # Unmeasured Voids Void 1 1 Bowel Movement No CBC, BMP 12/02/19 05:50 12/02/19 05:50 Gen: awake, alert, nad Resp: unlabored on ra Abdo: soft, minimal ttp near incision, dressing removed, incision c/d/i with mandy in place, no erythema or drainage present. New 4x4s and paper tape applied. A/P: 89 y/o F known to surgery w/ PMHx ESRD on HD (MWF), COPD on 2 lpm NC, Anemia, Asthma, CHF, DM, GERD, HTN, HLD, AFib on Eliquis, and prior SBO a/w 1 day of abdominal pain, nausea/vomiting, found to have sbo/incarcerated L inguinal hernia now POD 2, s/p Left inguinal hernia repair for incarcerated fe moral hernia Afebrile, vss No leukocytosis -on clear liquids per s&s, continue to advance diet to baseline per speech and swallow -OOb as tolerated with assist -Keep dressing c/d/i -on home Eliquis d/w attending Dr Waggoner
[2019-12-02] MEDS ORDERED: ONDANSETRON 4 MG/2 ML VIAL IVPUSH PRN (08:36)
[2019-12-02] MEDS ORDERED: SODIUM CHLORIDE 0.45% 1,000 ML IV SCH (08:36)
[2019-12-02] MEDS ORDERED: ALBUTEROL SO4 HFA INHALER IH PRN (08:36)
--- NOTE | 2019-12-02 09:26 | PN ---
Progress Note, OUTSIDE PHYSICAL DAMAGE APPRAISER - Note Progress Note: Selected Entries 12/02/19 12/02/19 12/02/19 00:00 02:00 04:00 Temperature Pulse Rate 98 H 96 H 88 Blood Pressure 127/67 127/67 125/59 L O2 Sat by Pulse 99 98 Oximetry (%) 12/02/19 12/02/19 06:00 08:00 Temperature 98.1 F Pulse Rate 81 60 Blood Pressure 118/54 L 141/70 O2 Sat by Pulse 95 Oximetry (%) Laboratory Tests 12/02/19 05:50 WBC 5.8 Clear liquids [id number] and tolerated well. Upgrade diet, per surgery
[2019-12-02] MEDS: amLODIPine BESYLATE 10 MG TABLET (FP) PO SCH (09:28)
[2019-12-02] MEDS: APIXABAN 2.5 MG TABLET PO SCH ×2 (09:28→21:45)
[2019-12-02] MEDS: levETIRAcetam 500 MG/5 ML INJECTION VIAL IVPB SCH (09:28)
[2019-12-02] MEDS: ISOSORBIDE MONONITRATE 30 MG TAB.SR.24H (FP) PO SCH (09:29)
[2019-12-02] MEDS: RANOLAZINE E.R. 500 MG TABLET (FP) PO SCH ×2 (09:29→21:45)
--- NOTE | 2019-12-02 11:59 | PN ---
Teaching Attending Note Name of Resident: Singh Potter ATTENDING PHYSICIAN STATEMENT I saw and evaluated the patient. I reviewed the resident's note and discussed the case with the resident. I agree with the resident's findings and plan as documented. SUBJECTIVE: Seen and examined at bedside. A&Ox1, non-tender abdomen. Distant BS heard OBJECTIVE Last Vital Signs Temp Pulse Resp BP Pulse Ox 98.1 F 60 92 H 141/70 95 12/02/19 06:00 12/02/19 08:00 12/02/19 08:00 12/02/19 08:00 12/02/19 06:00 PE: Per resident note Labs/Imaging: reviewed ASSESSMENT/PLAN 89-year-old female past medical history of ESRD, COPD on 2 L, anemia, asthma, CHF, diabetes, GERD, HTN, HLD, A. fib on Eliquis, prior SBO presents with SBO secondary to incarcerated left inguinal hernia for which she underwent surgery on 11/29. Patient was stabilized postop in the ICU and transferred to the floor. #SBO secondary to incarcerated left inguinal hernia POD #2 Surgery on board: Appreciate recommendations Pain control Physical therapy Tolerating clear liquids: Diet per surgical team #Acute blood loss anemia Hemoglobin 8.0 this morning. Will recheck in afternoon, if continues to decrease transfuse Transfuse to goal hemoglobin greater than 8.0 -if continues to drop will hold apixaban #ESRD on HD MWF -nephrology on board: appreciate recs #HTN -cont home meds #HLD -cont home statin
[2019-12-02 13:13] LABS: HEMATOCRIT 25.7 % (32.4-45.2); HEMOGLOBIN 8.6 GM/dL (10.7-15.3); MCH 30.2 pg (25.7-33.7); MCHC 33.3 g/dl (32.0-36.0); MEAN CELL VOLUME 90.6 fl (80-96); MEAN PLT VOLUME 8.8 fl (7.5-11.1); PLATELET COUNT 189 K/MM3 (134-434); RBC 2.83 M/mm3 (3.60-5.2); RDW 16.5 % (11.6-15.6); WHITE BLOOD COUNT 6.2 K/mm3 (4.0-10.0)
[2019-12-02 15:19] VITALS: BMI 19.7
--- NOTE | 2019-12-02 15:23 | PN ---
Progress Note, Physician History of Present Illness: Pt seen and examined at bedside. She is tolerating diet so far. - Current Medication List Current Medications: Active Medications Albuterol Sulfate (Ventolin Hfa Inhaler -) 1 puff IH TID PRN PRN Reason: SHORTNESS OF BREATH Amlodipine Besylate (Norvasc -) 10 mg PO DAILY [facility] Last Admin: 12/02/19 09:28 Dose: 10 mg Documented by: Apixaban (Eliquis -) 2.5 mg PO BID [facility] Last Admin: 12/02/19 09:28 Dose: 2.5 mg Documented by: Atorvastatin Calcium (Lipitor -) 20 mg PO HS [facility] Sodium Chloride (Normal Saline -) 250 mls @ 3,000 mls/hr IV PRN PRN PRN Reason: Hypotension during Dialysis Stop: 12/02/19 09:25 Sodium Chloride (1/2 Normal Saline) 1,000 mls @ 42 mls/hr IV ASDIR [facility] Last Admin: 12/02/19 09:29 Dose: 42 mls/hr Documented by: Insulin Aspart (Novolog Vial Sliding Scale -) 1 vial SQ TIDAC [facility]; Protocol Last Admin: 12/02/19 13:09 Dose: Not Given Documented by: Isosorbide Mononitrate (Imdur -) 30 mg PO DAILY [facility] Last Admin: 12/02/19 09:29 Dose: 30 mg Documented by: Levetiracetam (Keppra Injection -) 500 mg IVPB DAILY [facility] Last Admin: 12/02/19 09:28 Dose: 500 mg Documented by: Ondansetron HCl (Zofran Injection) 4 mg IVPUSH Q6H PRN PRN Reason: NAUSEA Ranolazine (Ranexa -) 500 mg PO BID [facility] Last Admin: 12/02/19 09:29 Dose: 500 mg Documented by: - Objective Vital Signs: Vital Signs Temperature 98 F 12/02/19 13:26 Pulse Rate 92 H 12/02/19 13:26 Respiratory Rate 16 12/02/19 13:26 Blood Pressure 140/70 12/02/19 13:26 O2 Sat by Pulse Oximetry (%) 95 12/02/19 06:00 Constitutional: Yes: Calm Eyes: Yes: Conjunctiva Clear HENT: Yes: Atraumatic Neck: Yes: Supple Cardiovascular: Yes: S1, S2 Respiratory: Yes: CTA Bilaterally Gastrointestinal: Yes: Soft Genitourinary: Yes: WNL Musculoskeletal: Yes: WNL Edema: No Neurological: Yes: Oriented Labs: CBC, BMP 12/02/19 12:58 12/02/19 05:50 INR, PTT INR 0.99 (0.83-1.09) 11/30/19 08:20 Problem List - Problems (1) ESRD (end stage renal disease) Code(s): N18.6 - END STAGE RENAL DISEASE (2) Abdominal pain Code(s): R10.9 - UNSPECIFIED ABDOMINAL PAIN Qualifiers: Abdominal location: generalized Qualified Code(s): R10.84 - Generalized abdominal pain (3) SBO (small bowel obstruction) Code(s): K56.609 - UNSP INTESTNL OBST, UNSP TO PARTIAL VERSUS COMPLETE OBST (4) Vomiting Code(s): R11.10 - VOMITING, UNSPECIFIED Qualifiers: Vomiting type: unspecified Vomiting Intractability: non-intractable Nausea presence: unspecified Qualified Code(s): R11.10 - Vomiting, unspecified (5) Constipation Code(s): K59.00 - CONSTIPATION, UNSPECIFIED Qualifiers: Constipation type: unspecified constipation type Qualified Code(s): K59.00 - Constipation, unspecified (6) Hx SBO Code(s): Z87.19 - PERSONAL HISTORY OF OTHER DISEASES OF THE DIGESTIVE SYSTEM (7) Diabetes Code(s): E11.9 - TYPE 2 DIABETES MELLITUS WITHOUT COMPLICATIONS Qualifiers: Diabetes mellitus type: type 2 Diabetes mellitus manager terminal insulin use: without manager terminal use Diabetes mellitus complication status: with kidney complications Diabetes mellitus complication detail: with chronic kidney disease Chronic kidney disease stage: on chronic dialysis Qualified Code(s): E11.22 - Type 2 diabetes mellitus with diabetic chronic kidney disease; N18.6 - End stage renal disease; Z99.2 - Dependence on renal dialysis (8) Hypercholesterolemia Code(s): E78.00 - PURE HYPERCHOLESTEROLEMIA, UNSPECIFIED (9) Hypertension Code(s): I10 - ESSENTIAL (PRIMARY) HYPERTENSION Qualifiers: Hypertension type: essential hypertension Qualified Code(s): I10 - Essential (primary) hypertension (10) Pericardial effusion Code(s): I31.3 - PERICARDIAL EFFUSION (NONINFLAMMATORY) Assessment/Plan Current Medications Generic Name Dose Route Start Last Admin Trade Name Freq PRN Reason Stop Dose Admin Albuterol Sulfate 1 puff 12/02/19 08:36 Ventolin Hfa Inhaler - IH TID PRN SHORTNESS OF BREATH Amlodipine Besylate 10 mg 12/02/19 10:00 12/02/19 09:28 Norvasc - PO 10 mg DAILY [facility] Administration Apixaban 2.5 mg 12/02/19 10:00 12/02/19 09:28 Eliquis - PO 2.5 mg BID [facility] Administration Atorvastatin Calcium 20 mg 12/02/19 22:00 Lipitor - PO HS [facility] Sodium Chloride 250 mls @ 3,000 mls/hr 12/02/19 08:36 Normal Saline - IV 12/02/19 09:25 PRN PRN Hypotension during Dialysis Sodium Chloride 1,000 mls @ 42 mls/hr 12/02/19 08:36 12/02/19 09:29 1/2 Normal Saline IV 42 mls/hr ASDIR [facility] Administration Insulin Aspart 1 vial 12/02/19 11:00 12/02/19 13:09 Novolog Vial Sliding Scale - SQ Not Given TIDAC [facility] Protocol Isosorbide Mononitrate 30 mg 12/02/19 10:00 12/02/19 09:29 Imdur - PO 30 mg DAILY [facility] Administration Levetiracetam 500 mg 12/02/19 10:00 12/02/19 09:28 Keppra Injection - IVPB 500 mg DAILY [facility] Administration Ondansetron HCl 4 mg 12/02/19 08:36 Zofran Injection IVPUSH Q6H PRN NAUSEA Ranolazine 500 mg 12/02/19 10:00 12/02/19 09:29 Ranexa - PO 500 mg BID [facility] Administration Impression 1. ESRD 2. HTN 3. HLD 4. COPD 5. DM 6. pos heb b core 7. SBO 8. anemia 9. a-fib 10. 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 abdominal pain 13. r/o sbo Plan - d/c fluids - HD tomorrow - epogen for anemia - pt tolerating diet so far - cont wound care - bp stable
[2019-12-02] MEDS ORDERED: PT OWN MED DRAWER 7, Y5N ONE (16:50)
[2019-12-02] MEDS ORDERED: INSULIN (NOVOLOG) ASPART 100 UNITS/ML 10ML VIAL ONE (16:51)
--- NOTE | 2019-12-02 17:11 | PN ---
Physical Exam: SUBJECTIVE: Patient seen and examined at bedside. No acute events overnight. OBJECTIVE: Vital Signs Period Temp Pulse Resp BP Sys/Betancourt Pulse Ox Last 24 Hr 98 F-98.3 F 81-99 14-118 108-147/52-74 95-100 GENERAL: NAD HEAD: Normal with no signs of trauma. EYES: EOMI Sclera Clear LUNGS: Clear to auscultation HEART: RRR S1S ABDOMEN: Soft, Nontender. Surgical mandy intact, no erythema/warmth or signs of wound infection. BS Hypoactive EXTREMITIES: No CCE Laboratory Results - last 24 hr 12/01/19 12/02/19 12/02/19 20:56 05:50 05:50 WBC 5.8 RBC 2.67 L Hgb 8.0 L Hct 23.7 L D MCV 88.8 MCH 29.9 MCHC 33.6 RDW 16.3 H Plt Count 179 MPV 8.9 Sodium 137 Potassium 4.1 Chloride 96 L Carbon Dioxide 35 H Anion Gap 6 L BUN 18.7 H Creatinine 3.6 H Est GFR (CKD-EPI)AfAm 12.29 Est GFR (CKD-EPI)NonAf 10.61 POC Glucometer 70 Random Glucose 78 Calcium 8.3 L Phosphorus 4.0 Magnesium 1.8 12/02/19 12/02/19 12/02/19 06:00 11:40 12:58 WBC 6.2 RBC 2.83 L Hgb 8.6 L Hct 25.7 L MCV 90.6 MCH 30.2 MCHC 33.3 RDW 16.5 H Plt Count 189 MPV 8.8 Sodium Potassium Chloride Carbon Dioxide Anion Gap BUN Creatinine Est GFR (CKD-EPI)AfAm Est GFR (CKD-EPI)NonAf POC Glucometer 72 88 Random Glucose Calcium Phosphorus Magnesium 12/02/19 12/02/19 16:53 17:00 WBC RBC Hgb Hct MCV MCH MCHC RDW Plt Count MPV Sodium Potassium Chloride Carbon Dioxide Anion Gap BUN Creatinine Est GFR (CKD-EPI)AfAm Est GFR (CKD-EPI)NonAf POC Glucometer 66 66 Random Glucose Calcium Phosphorus Magnesium Active Medications Generic Name Dose Route Start Last Admin Trade Name Freq PRN Reason Stop Dose Admin Albuterol Sulfate 1 puff 12/02/19 08:36 Ventolin Hfa Inhaler - IH TID PRN SHORTNESS OF BREATH Amlodipine Besylate 10 mg 12/02/19 10:00 12/02/19 09:28 Norvasc - PO 10 mg DAILY [facility] Administration Apixaban 2.5 mg 12/02/19 10:00 12/02/19 09:28 Eliquis - PO 2.5 mg BID [facility] Administration Atorvastatin Calcium 20 mg 12/02/19 22:00 Lipitor - PO HS [facility] Epoetin Nnamdi 10,000 unit 12/03/19 15:23 Procrit - IVPUSH 12/03/19 15:24 ONCE ONE Sodium Chloride 250 mls @ 3,000 mls/hr 12/02/19 08:36 Normal Saline - IV 12/02/19 09:25 PRN PRN Hypotension during Dialysis Sodium Chloride 1,000 mls @ 42 mls/hr 12/02/19 08:36 12/02/19 09:29 1/2 Normal Saline IV 42 mls/hr ASDIR [facility] Administration Sodium Chloride 250 mls @ 3,000 mls/hr 12/02/19 15:23 Normal Saline - IV 12/03/19 15:23 PRN PRN Hypotension during Dialysis Insulin Aspart 1 vial 12/02/19 11:00 12/02/19 16:58 Novolog Vial Sliding Scale - SQ Not Given [facility] Protocol Isosorbide Mononitrate 30 mg 12/02/19 10:00 12/02/19 09:29 Imdur - PO 30 mg DAILY [facility] Administration Levetiracetam 500 mg 12/02/19 10:00 12/02/19 09:28 Keppra Injection - IVPB 500 mg DAILY [facility] Administration Ondansetron HCl 4 mg 12/02/19 08:36 Zofran Injection IVPUSH Q6H PRN NAUSEA Ranolazine 500 mg 12/02/19 10:00 12/02/19 09:29 Ranexa - PO 500 mg BID [facility] Administration ASSESSMENT/PLAN: Patient is a 89 YO F with PMH HTN, HLD, CHF, afib (on eliquis), DM, GERD, anemia, asthma, ESRD on HD (Friday/Friday/Friday [last HD on 11/28]), COPD (on 2 L), and h/o SBO presents with nausea and vomiting & intermittent abdominal pain. Found to SBO on CT scan and underwent incarcerated left femoral hernia repair with plug. POD#2. SBO 2/2 incarcerated Left inguinal Hernia POD# 2 #SBO--> POD #2 incarcerated left femoral hernia repair with plug -CTAP: Dilated small bowel loops concerning for obstruction; Transition point is suspected to occur at a left inguinal hernia, which contains a portion of dilated small bowel with adjacent collapse of bowel caliber. Ascites. Small hiatal hernia -zofran 4 mg IV push Q6H PRN for nausea; QTC 444 #Seizure D/o -continue keppra 500 mg IVPB Daily HTN - amlodipine 10 mg daily #Afib: eliquis 2.5 mg PO BID #CHF: isosorbide mononitrate 30 mg PO daily, ranolazine 500 mg PO BID #HLD: lipitor 20 mg PO HS #COPD (on 2L) restarted home medication Albuterol inhaler 1 puff IH TID PRN #ESRD on HD (Friday/Friday/Friday) -Renal (Dr. Reis) following. #DM - BGM TIDAC -ISS TIDAC DVT ppx -2.5 mg PO BID FEN - D5 1/2 NS @ 42 -Monitor lytes -Renal/Low Sodium Diet DISPO med surg Visit type - Emergency Visit Emergency Visit: Yes ED Registration Date: 11/30/19 Care time: The patient presented to the Emergency Department on the above date and was hospitalized for further evaluation of their emergent condition. - New Patient This patient is new to me today: No - Critical Care Critical Care patient: No - Discharge Referral Referred to [facility] Med P.C.: No - Medication Review Med list reviewed for High Risk Meds patients 65 and older: Yes ATTENDING PHYSICIAN STATEMENT I saw and evaluated the patient. I reviewed the resident's note and discussed the case with the resident. I agree with the resident's findings and plan as documented. SUBJECTIVE: OBJECTIVE: ASSESSMENT AND PLAN:
[2019-12-02] MEDS ORDERED: DEXTROSE 5%-0.45% SALINE 1,000 ML IV SCH (17:15)
--- NOTE | 2019-12-02 17:38 | PATH ---
Surgical Pathology Report Patient Name: BRIAN ONEILL Med. Rec. #: [id number] /Age/Gender: 1930 (Age: 89) / F Account: [id number] Location: [facility] MED/SURG Taken: 11/30/2019 Received: 12/01/2019 Reported: 12/02/2019 Physicians: MD SEBASTIAN Carlson Specimen(s) Received HERNIA SAC Clinical History Small bowel obstruction Final Diagnosis HERNIA SAC, LEFT, REPAIR OF INCARCERATED RECURRENT INGUINAL HERNIA: HERNIA SAC. Electronically Signed By Catia Pizarro M.D. Gross Description Received in formalin labeled "hernia sac," is a 5.3 x 3.2 x 0.5 cm su-alex, focally hemorrhagic portion of fibromembranous tissue with attached fat, consistent with a hernia sac. Medical Attendant sections are submitted in one cassette. /12/01/2019 saudi/12/01/2019
[2019-12-02] MEDS ORDERED: ATORVASTATIN CA 20 MG TABLET (FP) PO SCH (22:00)
[2019-12-03] MEDS: INSULIN SLIDING SCALE (NOVOLOG) 1 VIAL SQ SCH ×3 (06:10→17:17)
[2019-12-03 07:20] LABS: MAGNESIUM 1.7 mg/dL (1.8-2.4); PHOSPHOROUS 4.8 mg/dL (2.5-4.9)
[2019-12-03] MEDS ORDERED: MAGNESIUM OXIDE 400 MG TABLET (FP) PO ONE ×2 (09:45→14:30)
[2019-12-03] MEDS ORDERED: SODIUM CHLORIDE 250 ML IV PRN ×2 (09:52→09:54)
[2019-12-03] MEDS ORDERED: EPOETIN ALFA 10,000 UNIT/1 ML VIAL IVPUSH ONE (10:00)
[2019-12-03 10:18] LABS: MCH 29.4 pg (25.7-33.7); MCHC 33.4 g/dl (32.0-36.0); MEAN CELL VOLUME 88.1 fl (80-96); MEAN PLT VOLUME 9.2 fl (7.5-11.1); PLATELET COUNT 187 K/MM3 (134-434); RBC 2.73 M/mm3 (3.60-5.2); RDW 15.8 % (11.6-15.6); WHITE BLOOD COUNT 5.1 K/mm3 (4.0-10.0)
--- NOTE | 2019-12-03 10:21 | PN ---
Progress Note, CLOTH TESTER - Note Progress Note: Selected Entries 12/02/19 12/02/19 12/02/19 00:00 04:00 06:00 Supper NPO Temperature Pulse Rate Blood Pressure O2 Sat by Pulse 99 98 95 Oximetry (%) Oxygen Delivery Method 12/02/19 12/02/19 12/02/19 15:57 17:53 21:00 Supper Temperature Pulse Rate Blood Pressure O2 Sat by Pulse 100 100 100 Oximetry (%) Oxygen Delivery Nasal Cannula Nasal Cannula Method 12/02/19 12/03/19 22:00 06:51 Supper Temperature 98.4 F Pulse Rate 90 Blood Pressure 127/60 O2 Sat by Pulse 100 90 L Oximetry (%) Oxygen Delivery Method Laboratory Tests 12/03/19 06:15 WBC Pending Diet advanced to reg/thin from clear liquids tolerating dietwithout overt signs of aspiration reported or observed.
[2019-12-03 10:27] LABS: BLOOD UREA NITROGEN 29.5 mg/dL (7-18); CALCIUM 8.2 mg/dL (8.5-10.1); CREATININE 4.6 mg/dL (0.55-1.3); POTASSIUM 4.1 mmol/L (3.5-5.1)
--- NOTE | 2019-12-03 11:42 | PN ---
Progress Note (short form) - Note Progress Note: POD 3, s/p Left inguinal hernia repair for incarcerated femoral hernia Pt seen and examined. No issues overnight per RN. Pt with dementia. Vital Signs Temp 98.4 F 12/03/19 06:51 Pulse 90 12/03/19 06:51 Resp 18 12/03/19 06:51 BP 127/60 12/03/19 06:51 Pulse Ox 90 L 12/03/19 06:51 Intake & Output 12/02/19 12/02/19 12/03/19 11:59 23:59 11:59 Intake Total 594 184 294 Balance 594 184 294 Weight 101 lb 10.13 oz 101 lb 100 lb 7 oz Intake: IV 294 184 294 1/2 Normal Saline 1,000 294 ml @ 42 mls/hr IV ASDIR [facility] Rx#:[id number] 1/2 Normal Saline 1,000 100 ml @ 42 mls/hr IV ASDIR [facility] Rx#:[id number] D5-1/2Ns - 1,000 ml @ 42 84 294 mls/hr IV ASDIR FORREST Rx#: [id number] Oral 300 Other: Voiding Method Indwelling Catheter Toilet Incontinent # Unmeasured Voids Void 2 1 Bowel Movement No Height 5 ft Body Mass Index (BMI) 19.7 CBC, BMP 12/03/19 06:15 12/03/19 06:15 Gen: awake, alert, nad Resp: unlabored on ra Abdo: soft, minimal ttp near incision, dressing removed, incision c/d/i with mandy in place, no erythema or drainage present. New 4x4s and paper tape applied. A/P: 89 y/o F known to surgery w/ PMHx ESRD on HD (MWF), COPD on 2 lpm NC, Anemia, Asthma, CHF, DM, GERD, HTN, HLD, AFib on Eliquis, and prior SBO a/w 1 day of abdominal pain, nausea/vomiting, found to have sbo/incarcerated L inguinal hernia now POD 3, s/p Left inguinal hernia repair for incarcerated femoral hernia Afebrile, vss No leukocytosis tolerating renal diet -Keep dressing c/d/i -Pt should f/u in the office in 1 week d/w attending Dr Waggoner
--- NOTE | 2019-12-03 12:35 | DS ---
Physical Exam: SUBJECTIVE: Patient seen and examined OBJECTIVE: Vital Signs Period Temp Pulse Resp BP Sys/Betancourt Pulse Ox Last 24 Hr 98 F-98.6 F 76-100 16-18 108-141/52-94 90-100 PHYSICAL EXAM GENERAL: The patient is awake, alert, and fully oriented, in no acute distress. HEAD: Normal with no signs of trauma. EYES: PERRL, extraocular movements intact, sclera anicteric, conjunctiva clear. ENT: Ears normal, nares patent, oropharynx clear without exudates, moist mucous membranes. NECK: Trachea midline, full range of motion, supple. LUNGS: Breath sounds equal, clear to auscultation bilaterally, no wheezes, no crackles, no accessory muscle use. HEART: Regular rate and rhythm, S1, S2 without murmur, rub or gallop. ABDOMEN: Soft, nontender, nondistended, normoactive bowel sounds, no guarding, no rebound, no hepatosplenomegaly, no masses. EXTREMITIES: 2+ pulses, warm, well-perfused, no edema. NEUROLOGICAL: Cranial nerves II through XII grossly intact. Normal speech, gait not observed. PSYCH: Normal mood, normal affect. SKIN: Warm, dry, normal turgor, no rashes or lesions noted. LABS Laboratory Results - last 24 hr 12/01/19 12/02/19 12/02/19 16:10 12:58 16:53 WBC 6.2 RBC 2.83 L Hgb 8.6 L Hct 25.7 L MCV 90.6 MCH 30.2 MCHC 33.3 RDW 16.5 H Plt Count 189 MPV 8.8 Sodium Potassium Chloride Carbon Dioxide Anion Gap BUN Creatinine Est GFR (CKD-EPI)AfAm Est GFR (CKD-EPI)NonAf POC Glucometer 66 Random Glucose Calcium Phosphorus Magnesium Hep C Ab Diagnostic <0.1 12/02/19 12/02/19 12/03/19 17:00 17:15 05:47 WBC RBC Hgb Hct MCV MCH MCHC RDW Plt Count MPV Sodium Potassium Chloride Carbon Dioxide Anion Gap BUN Creatinine Est GFR (CKD-EPI)AfAm Est GFR (CKD-EPI)NonAf POC Glucometer 66 83 81 Random Glucose Calcium Phosphorus Magnesium Hep C Ab Diagnostic 12/03/19 12/03/19 06:15 06:15 WBC 5.1 RBC 2.73 L Hgb 8.0 L Hct 24.0 L MCV 88.1 MCH 29.4 MCHC 33.4 RDW 15.8 H Plt Count 187 MPV 9.2 Sodium 130 L Potassium 4.1 Chloride 92 L Carbon Dioxide 31 Anion Gap 7 L BUN 29.5 H Creatinine 4.6 H Est GFR (CKD-EPI)AfAm 9.14 Est GFR (CKD-EPI)NonAf 7.89 POC Glucometer Random Glucose 90 Calcium 8.2 L Phosphorus 4.8 Magnesium 1.7 L Hep C Ab Diagnostic HOSPITAL COURSE: Date of Admission:11/30/19 Date of Discharge: 12/03/19 Discharge Summary Problems reviewed: Yes Reason For Visit: SMALL BOWEL OBSTRUCTION Current Active Problems Abdominal pain (Acute) ESRD (end stage renal disease) (Acute) SBO (small bowel obstruction) (Acute) Vomiting (Acute) Chronic kidney disease (Chronic) Constipation (Chronic) Condition: Improved - Instructions Diet, Activity, Other Instructions: You presented to the hospital due to abdominal pain. You were found to have an obstruction in your abdomen which required surgery. Dr. Waggoner Discharge Instructions Dear BRIAN ONEILL, Post Operative Instructions Physical activity Resume your normal everyday activity as tolerated no heavy lifting or exercise until seen by your surgeon. You may walk unlimited amounts of and climb stairs. You may resume driving the car when you feel safe and comfortable behind the wheel. Wound care Keep wound clean and dry. Can shower in 2 days, when showering allow soap and water to run over the incision, pat dry well after showering. Keep wound covered with dry gauze and tape. Frakes will be removed in the office. Diet There are no dietary restrictions. Eat healthy, high-fiber foods. Drink 6 to 8 glasses of liquid each day. This will assist in keeping your bowels are regular. Pain management You may take Tylenol or acetaminophen or Ibuprofen (for example, Motrin, Advil etc.) Any pain prescription medication ordered should be taken as prescribed for moderate to severe pain. Call Dr. Waggoner for any of the following: Severe pain not relieved by medication Fever of 101 or higher Excessive bleeding or drainage on dressing Inability to urinate Call the office at [phone] for a post operative appointment in 7 - 10 days. Please also follow up with your primary care doctor in 1 week. please continue your dialysis as previously scheduled. Referrals: Lucas Waggoner MD [Staff Physician] - 1 Week ( f/u in the office in 1 week) Reid Marrufo [Primary Care Provider] - 1 Week Disposition: VNS/HOME HEALTH CARE - Home Medications Comprehensive Discharge Medication List: Ambulatory Orders Apixaban [Eliquis -] 2.5 mg PO BID tablet 06/13/18 Isosorbide Mononitrate [Imdur -] 30 mg PO DAILY tab.sr.24h 06/13/18 Sevelamer Carbonate [Renvela -] 800 mg PO TIDCM tab 06/13/18 Atorvastatin Ca [Lipitor] 20 mg PO HS 11/05/18 Ranolazine [Ranolazine ER] 500 mg PO BID 11/05/18 Albuterol Sulfate Inhaler - [Ventolin HFA Inhaler -] 2 puff IH Q3H6XD PRN 10/24/19 Famotidine [Pepcid -] 40 mg PO DAILY 10/24/19 LORazepam [Ativan] 0.5 mg PO DAILY PRN 10/24/19 levETIRAcetam [Keppra Xr -] 1 tab PO DAILY 10/24/19 Bisacodyl Suppository [Dulcolax Suppository -] 10 mg RC DAILY PRN #7 supp.rect 10/25/19 Docusate Liquid [Colace Liquid -] 100 mg PO DAILY #1 ud 10/25/19 Polyethylene Glycol 3350 [Miralax 255 gm Btl -] 17 gm PO DAILY #1 bottle 10/25/19 Sennosides [Senna] 8.6 mg PO DAILY #30 capsule 10/25/19 Telmisartan/Amlodipine [Telmisartan-Amlodipine 80-10] 1 each PO DAILY 11/30/19 Carvedilol 3.125 mg PO BID 12/03/19 Hydralazine HCl 100 mg PO BID 12/03/19 Metoprolol Succinate 100 mg PO DAILY 12/03/19 - Discharge Referral Referred to [facility] Med P.C.: No ATTENDING PHYSICIAN STATEMENT I saw and evaluated the patient. I reviewed the resident's note and discussed the case with the resident. I agree with the resident's findings and plan as documented. SUBJECTIVE: OBJECTIVE: ASSESSMENT AND PLAN:
--- NOTE | 2019-12-03 12:57 | PN ---
Teaching Attending Note Name of Resident: Singh Pottre ATTENDING PHYSICIAN STATEMENT I saw and evaluated the patient. I reviewed the resident's note and discussed the case with the resident. I agree with the resident's findings and plan as documented. SUBJECTIVE: Seen and examined at bedside. At mental baseline. Tolerating p.o. Cleared by surgical team for discharge OBJECTIVE Last Vital Signs Temp Pulse Resp BP Pulse Ox 98.2 F 100 H 18 141/94 90 L 12/03/19 10:15 12/03/19 12:20 12/03/19 12:20 12/03/19 12:20 12/03/19 06:51 PE: Per resident note Labs/Imaging: reviewed ASSESSMENT/PLAN 89-year-old female past medical history of ESRD, COPD on 2 L, anemia, asthma, CHF, diabetes, GERD, HTN, HLD, A. fib on Eliquis, prior SBO presents with SBO secondary to incarcerated left inguinal hernia for which she underwent surgery on 11/29. Patient was stabilized postop in the ICU and transferred to the floor. Pt tolerated PO diet and passed flatus. Cleared by surgery for discharge. Medically cleared for discharge on her home medications.
[2019-12-03 14:09] VITALS: BP 142/58; TEMP 97.5
[2019-12-03] MEDS ORDERED: PT OWN MED DRAWER 7, Y5N ONE (14:14)
[2019-12-03] MEDS: amLODIPine BESYLATE 10 MG TABLET (FP) PO SCH (14:22)
[2019-12-03] MEDS: ISOSORBIDE MONONITRATE 30 MG TAB.SR.24H (FP) PO SCH (14:22)
[2019-12-03] MEDS: levETIRAcetam 500 MG/5 ML INJECTION VIAL IVPB SCH (14:23)
[2019-12-03] MEDS: APIXABAN 2.5 MG TABLET PO SCH (14:26)
[2019-12-03] MEDS: RANOLAZINE E.R. 500 MG TABLET (FP) PO SCH (14:26)
--- NOTE | 2019-12-03 14:41 | PN ---
Progress Note, Physician History of Present Illness: Pt seen and examined at bedside. She is awake and appears comfortable. She is tolerating HD. - Current Medication List Current Medications: Active Medications Albuterol Sulfate (Ventolin Hfa Inhaler -) 1 puff IH TID PRN PRN Reason: SHORTNESS OF BREATH Amlodipine Besylate (Norvasc -) 10 mg PO DAILY [facility] Last Admin: 12/03/19 14:22 Dose: 10 mg Documented by: Apixaban (Eliquis -) 2.5 mg PO BID [facility] Last Admin: 12/03/19 14:26 Dose: 2.5 mg Documented by: Atorvastatin Calcium (Lipitor -) 20 mg PO HS [facility] Last Admin: 12/02/19 21:45 Dose: 20 mg Documented by: Dextrose/Sodium Chloride (D5-1/2ns -) 1,000 mls @ 42 mls/hr IV ASDIR [facility] Last Admin: 12/02/19 20:51 Dose: 42 mls/hr Documented by: Insulin Aspart (Novolog Vial Sliding Scale -) 1 vial SQ TIDAC [facility]; Protocol Last Admin: 12/03/19 14:03 Dose: Not Given Documented by: Isosorbide Mononitrate (Imdur -) 30 mg PO DAILY [facility] Last Admin: 12/03/19 14:22 Dose: 30 mg Documented by: Levetiracetam (Keppra Injection -) 500 mg IVPB DAILY [facility] Last Admin: 12/03/19 14:23 Dose: 500 mg Documented by: Ondansetron HCl (Zofran Injection) 4 mg IVPUSH Q6H PRN PRN Reason: NAUSEA Ranolazine (Ranexa -) 500 mg PO BID [facility] Last Admin: 12/03/19 14:26 Dose: 500 mg Documented by: - Objective Vital Signs: Vital Signs Temperature 97.5 F L 12/03/19 14:07 Pulse Rate 89 12/03/19 14:07 Respiratory Rate 20 12/03/19 14:07 Blood Pressure 142/58 L 12/03/19 14:07 O2 Sat by Pulse Oximetry (%) 100 12/03/19 14:07 Constitutional: Yes: Calm Eyes: Yes: Conjunctiva Clear HENT: Yes: Atraumatic Neck: Yes: Supple Cardiovascular: Yes: S1, S2 Respiratory: Yes: On Nasal O2 Gastrointestinal: Yes: Soft Genitourinary: Yes: WNL Musculoskeletal: Yes: WNL Edema: No Neurological: Yes: Oriented Psychiatric: Yes: Oriented Labs: CBC, BMP 12/03/19 06:15 12/03/19 06:15 INR, PTT INR 0.99 (0.83-1.09) 11/30/19 08:20 Problem List - Problems (1) ESRD (end stage renal disease) Code(s): N18.6 - END STAGE RENAL DISEASE (2) Abdominal pain Code(s): R10.9 - UNSPECIFIED ABDOMINAL PAIN Qualifiers: Abdominal location: generalized Qualified Code(s): R10.84 - Generalized abdominal pain (3) SBO (small bowel obstruction) Code(s): K56.609 - UNSP INTESTNL OBST, UNSP TO PARTIAL VERSUS COMPLETE OBST (4) Vomiting Code(s): R11.10 - VOMITING, UNSPECIFIED Qualifiers: Vomiting type: unspecified Vomiting Intractability: non-intractable Nausea presence: unspecified Qualified Code(s): R11.10 - Vomiting, unspecified (5) Constipation Code(s): K59.00 - CONSTIPATION, UNSPECIFIED Qualifiers: Constipation type: unspecified constipation type Qualified Code(s): K59.00 - Constipation, unspecified (6) Hx SBO Code(s): Z87.19 - PERSONAL HISTORY OF OTHER DISEASES OF THE DIGESTIVE SYSTEM (7) Diabetes Code(s): E11.9 - TYPE 2 DIABETES MELLITUS WITHOUT COMPLICATIONS Qualifiers: Diabetes mellitus type: type 2 Diabetes mellitus senior care insulin use: without senior care use Diabetes mellitus complication status: with kidney complications Diabetes mellitus complication detail: with chronic kidney disease Chronic kidney disease stage: on chronic dialysis Qualified Code(s): E11.22 - Type 2 diabetes mellitus with diabetic chronic kidney disease; N18.6 - End stage renal disease; Z99.2 - Dependence on renal dialysis (8) Hypercholesterolemia Code(s): E78.00 - PURE HYPERCHOLESTEROLEMIA, UNSPECIFIED (9) Hypertension Code(s): I10 - ESSENTIAL (PRIMARY) HYPERTENSION Qualifiers: Hypertension type: essential hypertension Qualified Code(s): I10 - Essential (primary) hypertension (10) Pericardial effusion Code(s): I31.3 - PERICARDIAL EFFUSION (NONINFLAMMATORY) Assessment/Plan Current Medications Generic Name Dose Route Start Last Admin Trade Name Freq PRN Reason Stop Dose Admin Albuterol Sulfate 1 puff 12/02/19 08:36 Ventolin Hfa Inhaler - IH TID PRN SHORTNESS OF BREATH Amlodipine Besylate 10 mg 12/02/19 10:00 12/03/19 14:22 Norvasc - PO 10 mg DAILY [facility] Administration Apixaban 2.5 mg 12/02/19 10:00 12/03/19 14:26 Eliquis - PO 2.5 mg BID [facility] Administration Atorvastatin Calcium 20 mg 12/02/19 22:00 12/02/19 21:45 Lipitor - PO 20 mg HS [facility] Administration Dextrose/Sodium Chloride 1,000 mls @ 42 mls/hr 12/02/19 17:15 12/02/19 20:51 D5-1/2ns - IV 42 mls/hr ASDIR [facility] Administration Insulin Aspart 1 vial 12/02/19 11:00 12/03/19 14:03 Novolog Vial Sliding Scale - SQ Not Given TIDAC [facility] Protocol Isosorbide Mononitrate 30 mg 12/02/19 10:00 12/03/19 14:22 Imdur - PO 30 mg DAILY [facility] Administration Levetiracetam 500 mg 12/02/19 10:00 12/03/19 14:23 Keppra Injection - IVPB 500 mg DAILY [facility] Administration Ondansetron HCl 4 mg 12/02/19 08:36 Zofran Injection IVPUSH Q6H PRN NAUSEA Ranolazine 500 mg 12/02/19 10:00 12/03/19 14:26 Ranexa - PO 500 mg BID [facility] Administration Impression 1. ESRD 2. HTN 3. HLD 4. COPD 5. DM 6. pos heb b core 7. SBO 8. anemia 9. a-fib 10. 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 abdominal pain 13. r/o sbo Plan - stop fluids - HD today - epogen for anemia - pt has HD set up as outpt - discussed with medical team
[2019-12-03 15:07] VITALS: PULSE 108
[2019-12-03 22:07] LABS: HEP B CORE AB, TOT Positive (Negative)
--- NOTE | 2019-12-08 10:45 | OP ---
DATE OF OPERATION: 11/30/2019 PREOPERATIVE DIAGNOSIS: Incarcerated recurrent left inguinal hernia. POSTOPERATIVE DIAGNOSIS: Incarcerated left femoral hernia. PROCEDURE: Repair incarcerated left femoral hernia. SURGEON: Lucas Waggoner MD [employer] REPRESENTATIVE: Emerald Pulido PA-C ANESTHESIA: General. OPERATIVE FINDINGS: There was an incarcerated left femoral hernia which contained viable small bowel. The rest of the findings were unremarkable. PROCEDURE: The patient was placed on the operating table in the supine position and, after the induction of general anesthesia, the patient's left groin was prepped with ChloraPrep and draped in sterile fashion. A timeout was taken and incision made with a scalpel through the previous left inguinal hernia repair incision. This was taken down through skin, subcutaneous tissue and Jose's fascia and the external oblique fascia identified. The previously noted findings were observed and specifically this was a hernia sac coming below the inguinal ligament. The hernia sac was opened and was found to contain viable small bowel. There was clear peritoneal fluid present within the sac and the hernia reduced once the femoral hernia defect was enlarged by dividing a portion of the inguinal ligament. Next, redundant sac was excised and sent for pathological exam and then several loops of small bowel were delivered into the wound through the hernia defect and found to be viable and again with clear peritoneal fluid. The hernia defect was then repaired by placing a medium hernia plug into the defect and suturing it in place with interrupted 2-0 Prolene suture. Hemostasis was checked for and noted to be good and then the wound was copiously irrigated with sterile saline. Hemostasis was again verified and then the incision closed in layers by reapproximating Jose's fascia with interrupted 2-0 Vicryl, the deep dermis with interrupted 3-0 Vicryl and the skin edges with surgical mandy. Dry sterile dressings were placed and the procedure terminated at this point and the patient transferred to the postanesthesia care unit in stable condition awake and alert. ESTIMATED BLOOD LOSS: 5 mL REPLACEMENTS: Crystalloid. DRAINS: None. SPECIMEN: Hernia sac to Pathology. I, Lucas Waggoner, was physically present in the operating room from the time the patient was placed on the operating table until she was transferred to the postanesthesia care unit in my accompaniment. Lucas Waggoner MD /[id number]
== END 2019-12-03 17:57 | disposition home health service (06) | DRG 350 ==
LOC: JER 07:19 → JERBED 13:44 → J4S 14:45 → JICU 19:32 → J7W 12-02 15:02
PROVIDERS: ATTEND Internal Medicine
PROC: 0YU60KZ Supplement Left Inguinal Region with Nonautologous Tissue Substitute, Open Approach (ICD-10-PCS; 2019-11-30)
PROC: 5A1D70Z Performance of Urinary Filtration, Intermittent, Less than 6 Hours Per Day (ICD-10-PCS; principal; 2019-12-01)
PROC: 5A1D70Z Performance of Urinary Filtration, Intermittent, Less than 6 Hours Per Day (ICD-10-PCS; 2019-12-03)
DX: K40.30 Unilateral inguinal hernia, with obstruction, without gangrene, not specified as recurrent (principal); N18.6 End stage renal disease; I13.2 Hypertensive heart and chronic kidney disease with heart failure and with stage 5 chronic kidney disease, or end stage renal disease; R18.8 Other ascites; D62 Acute posthemorrhagic anemia; I31.3 Pericardial effusion (noninflammatory); R11.10 Vomiting, unspecified; K59.00 Constipation, unspecified; E11.22 Type 2 diabetes mellitus with diabetic chronic kidney disease; I48.91 Unspecified atrial fibrillation; E78.5 Hyperlipidemia, unspecified; K21.9 Gastro-esophageal reflux disease without esophagitis; D64.9 Anemia, unspecified; F03.90 Unspecified dementia, unspecified severity, without behavioral disturbance, psychotic disturbance, mood disturbance, and anxiety; J44.9 Chronic obstructive pulmonary disease, unspecified; I50.9 Heart failure, unspecified; I25.10 Atherosclerotic heart disease of native coronary artery without angina pectoris; G40.909 Epilepsy, unspecified, not intractable, without status epilepticus; Z99.81 Dependence on supplemental oxygen; Z99.2 Dependence on renal dialysis
CPT/HCPCS: 36415; 74177-TC; 80048; 80053; 82248; 82962; 83605; 83690; 83735; 84100; 84484; 85025; 85027; 85610; 86704; 86706; 86707; 86708; 86709; 86803; 86850; 86900; 86901; 87340; 88302-TC; 93005; 93010; 94760; 94761; 97116-GP; 97161-GP; 99285-25; J0131; J0885; Q5106; Q9967; U0003

== ENCOUNTER 2020-01-10 11:00 | Inpatient (IN) | payer OTHER ==
[2020-01-10] MEDS ORDERED: SODIUM CHLORIDE 2,177 ML IV ONE (11:32)
[2020-01-10 12:18] LABS: BASO % 0.3 % (0-2.0); EOS % 0.1 % (0-4.5); HEMATOCRIT 34.2 % (32.4-45.2); HEMOGLOBIN 11.2 GM/dL (10.7-15.3); LYMPH % 5.2 % (8-40); MCH 29.3 pg (25.7-33.7); MCHC 32.8 g/dl (32.0-36.0); MEAN CELL VOLUME 89.4 fl (80-96); MEAN PLT VOLUME 8.6 fl (7.5-11.1); MONO % 5.5 % (3.8-10.2); NEUT % 88.9 % (42.8-82.8); PLATELET COUNT 344 K/MM3 (134-434); RBC 3.82 M/mm3 (3.60-5.2); RDW 14.8 % (11.6-15.6); WHITE BLOOD COUNT 11.1 K/mm3 (4.0-10.0)
[2020-01-10 12:24] LABS: INR 1.34 (0.83-1.09); PROTHROMBIN TIME (PATIENT) 16.3 SEC (9.7-13.0)
[2020-01-10 12:27] LABS: ACTIVATED PTT 32.1 SECONDS (25.2-36.5)
[2020-01-10] MEDS ORDERED: ACETAMINOPHEN 1000 MG/100 ML VIAL (NON FORMULARY) IVPB ONE ×3 (12:38→20:27)
[2020-01-10 12:42] LABS: CHLORIDE 96 mmol/L (98-107); POTASSIUM 5.3 mmol/L (3.5-5.1); SODIUM 135 mmol/L (136-145)
[2020-01-10 12:44] LABS: ALBUMIN 4.1 g/dl (3.4-5.0); ANION GAP 8 MMOL/L (8-16); CALCIUM 9.8 mg/dL (8.5-10.1); CO2 30 mmol/L (21-32); GLUCOSE,RANDOM 197 mg/dL (74-106)
[2020-01-10 12:45] LABS: BLOOD UREA NITROGEN 76.6 mg/dL (7-18)
[2020-01-10 12:48] LABS: SGOT/AST 13 U/L (15-37); SGPT/ALT 9 U/L (13-61)
[2020-01-10 12:49] LABS: BILIRUBIN,TOTAL 0.7 mg/dL (0.2-1); TOT PROT 7.4 g/dl (6.4-8.2)
[2020-01-10 12:50] LABS: ALK PHOS 88 U/L (45-117)
[2020-01-10] MEDS ORDERED: ACETAMINOPHEN INJECTION 100 ML IVPB ONE (12:51)
[2020-01-10] MEDS ORDERED: VANCOMYCIN 1 GM in D5W (PRE-DOCKED) 1,000 MG/250 ML IVPB ONE (12:59)
[2020-01-10] MEDS ORDERED: PIPERACILLIN/TAZOB 2.25 GM 2.25 GM in DEXTROSE 5%-WATER - 50 ML IVPB ONE (13:01)
[2020-01-10 13:14] LABS: LDH 211 U/L (84-246)
[2020-01-10] MEDS ORDERED: PIPERACILLIN/TAZOB 2.25 GM 2.25 GM/50 ML BAG IVPB ONE (13:21)
[2020-01-10] MEDS ORDERED: VANCOMYCIN 1 GRAM (PRE-DOCKED) 1,000 MG/250 ML BAG IVPB ONE (13:21)
[2020-01-10 13:45] LABS: CREATININE 8.9 mg/dL (0.55-1.3)
[2020-01-10] MEDS ORDERED: ACETAMINOPHEN 325 MG TABLET (FP) PO PRN (14:27)
[2020-01-10 15:21] LABS: EPI CELLS 10 /uL (0-25.1); HYALINE CASTS 1 /uL (0-3.1); PH,URINE 6.5 (5.0-8.0); URINE APPEARANCE CLEAR; URINE BACTERIA 10 /uL (0-1359); URINE BILIRUBIN NEGATIVE (NEGATIVE); URINE COLOR YELLOW; URINE GLUCOSE (UA) NEGATIVE (NEGATIVE); URINE KETONE NEGATIVE (NEGATIVE); URINE LEUK ESTERASE NEGATIVE (NEGATIVE); URINE NITRITE NEGATIVE (NEGATIVE); URINE PROTEIN 3+ (NEGATIVE); URINE RBC 37 /uL (0-23.9); URINE UROBILINOGEN 0.2 mg/dL (0.2-1.0); URINE WBC 6 /uL (0-25.8)
[2020-01-10] MEDS: INSULIN SLIDING SCALE (NOVOLOG) 1 VIAL SQ SCH ×2 (17:10→21:09)
[2020-01-10] MEDS: SEVELAMER CARBONATE 800 MG TAB (FP) PO SCH (19:16)
[2020-01-10] MEDS: SODIUM ZIRCONIUM CYCLOSILICATE (LOKELMA) 5 GM PACKET PO SCH (19:17)
[2020-01-10] MEDS ORDERED: PIPERACILLIN/TAZOBACTAM 2.25 GM VIAL IVPB ONE (20:47)
[2020-01-10] MEDS ORDERED: DEXTROSE 5%-WATER - 50 ML IVPB ONE (20:47)
[2020-01-10] MEDS: PIPERACILLIN/TAZOB 2.25 GM 2.25 GM in DEXTROSE 5%-WATER - 50 ML IVPB SCH (21:02)
[2020-01-10] MEDS: APIXABAN 2.5 MG TABLET PO SCH (21:03)
[2020-01-10] MEDS: OLANZapine 5 MG TABLET PO SCH (21:03)
[2020-01-10] MEDS: ROSUVASTATIN CA 10 MG TABLET (FP) PO SCH (21:03)
[2020-01-10] MEDS ORDERED: CARVEDILOL 3.125 MG TABLET (FP) PO SCH (22:00)
[2020-01-10] MEDS: BUDESONIDE/FORMETEROL FUMARATE 80/4.5 mcg INHALER IH SCH (22:13)
[2020-01-11] MEDS ORDERED: DEXTROSE 5%-WATER - 50 ML IVPB ONE ×3 (04:47→21:21)
[2020-01-11] MEDS ORDERED: PIPERACILLIN/TAZOBACTAM 2.25 GM VIAL IVPB ONE ×3 (04:47→21:21)
[2020-01-11] MEDS: PIPERACILLIN/TAZOB 2.25 GM 2.25 GM in DEXTROSE 5%-WATER - 50 ML IVPB SCH ×3 (05:03→21:27)
[2020-01-11] MEDS: INSULIN SLIDING SCALE (NOVOLOG) 1 VIAL SQ SCH ×4 (06:07→21:25)
[2020-01-11] MEDS ORDERED: SODIUM CHLORIDE 250 ML IV PRN ×2 (06:39→13:37)
[2020-01-11 08:32] LABS: BASO % 0.2 % (0-2.0); EOS % 0.2 % (0-4.5); HEMATOCRIT 32.1 % (32.4-45.2); HEMOGLOBIN 10.4 GM/dL (10.7-15.3); LYMPH % 7.1 % (8-40); MCHC 32.3 g/dl (32.0-36.0); MEAN CELL VOLUME 89.9 fl (80-96); MEAN PLT VOLUME 8.8 fl (7.5-11.1); MONO % 6.7 % (3.8-10.2); NEUT % 85.8 % (42.8-82.8); PLATELET COUNT 301 K/MM3 (134-434); RBC 3.58 M/mm3 (3.60-5.2); WHITE BLOOD COUNT 13.1 K/mm3 (4.0-10.0)
[2020-01-11] MEDS: SEVELAMER CARBONATE 800 MG TAB (FP) PO SCH ×3 (08:41→17:52)
[2020-01-11 08:47] LABS: POTASSIUM 4.9 mmol/L (3.5-5.1)
[2020-01-11 09:09] LABS: CALCIUM 9.2 mg/dL (8.5-10.1)
[2020-01-11 09:10] LABS: ALBUMIN 3.4 g/dl (3.4-5.0); MAGNESIUM 2.7 mg/dL (1.8-2.4)
[2020-01-11 09:11] LABS: BLOOD UREA NITROGEN 83.7 mg/dL (7-18)
[2020-01-11 09:13] LABS: PHOSPHOROUS 6.1 mg/dL (2.5-4.9)
[2020-01-11 09:14] LABS: BILIRUBIN,TOTAL 1.1 mg/dL (0.2-1)
[2020-01-11 09:15] LABS: TOT PROT 6.4 g/dl (6.4-8.2)
[2020-01-11 09:18] LABS: CREATININE 9.4 mg/dL (0.55-1.3)
[2020-01-11] MEDS ORDERED: SODIUM ZIRCONIUM CYCLOSILICATE (LOKELMA) 5 GM PACKET PO SCH (10:00)
[2020-01-11] MEDS: BUDESONIDE/FORMETEROL FUMARATE 80/4.5 mcg INHALER IH SCH ×2 (11:46→21:37)
[2020-01-11] MEDS ORDERED: PT OWN MED DRAWER 7, Y5N ONE (11:49)
[2020-01-11] MEDS: APIXABAN 2.5 MG TABLET PO SCH ×2 (11:53→21:29)
[2020-01-11] MEDS: OLANZapine 5 MG TABLET PO SCH ×2 (11:53→21:32)
[2020-01-11] MEDS: levETIRAcetam XR 500 MG TAB PO SCH (14:08)
[2020-01-11] MEDS: SODIUM ZIRCONIUM CYCLOSILICATE (LOKELMA) 5 GM PACKET PO SCH (15:21)
[2020-01-11] MEDS ORDERED: VANCOMYCIN 500 MG in DEXTROSE 5%-WATER 100 ML IVPB ONE (16:30)
[2020-01-11] MEDS ORDERED: VANCOMYCIN 500 MG VIAL (RESTRICTED TO ID ONLY) ONE (17:39)
[2020-01-11] MEDS ORDERED: DEXTROSE 5%-WATER 100 ML IVPB ONE (17:39)
[2020-01-11] MEDS: ALBUTEROL SO4 HFA INHALER IH PRN (18:04)
[2020-01-11] MEDS ORDERED: ALBUTEROL SO4 0.083% IH SOL 2.5 MG/3 ML VIAL.NEB. NEB ONE (18:21)
[2020-01-11] MEDS: ROSUVASTATIN CA 10 MG TABLET (FP) PO SCH (21:29)
[2020-01-11] MEDS ORDERED: PIPERACILLIN/TAZOB 2.25 GM 2.25 GM in DEXTROSE 5%-WATER - 50 ML IVPB SCH (22:00)
[2020-01-12] MEDS ORDERED: PIPERACILLIN/TAZOBACTAM 2.25 GM VIAL IVPB ONE (05:26)
[2020-01-12] MEDS ORDERED: DEXTROSE 5%-WATER - 50 ML IVPB ONE (05:26)
[2020-01-12] MEDS: PIPERACILLIN/TAZOB 2.25 GM 2.25 GM in DEXTROSE 5%-WATER - 50 ML IVPB SCH ×2 (05:33→16:04)
[2020-01-12] MEDS: INSULIN SLIDING SCALE (NOVOLOG) 1 VIAL SQ SCH ×4 (06:22→22:24)
[2020-01-12 08:35] LABS: BASO % 0.3 % (0-2.0); EOS % 1.3 % (0-4.5); HEMATOCRIT 33.6 % (32.4-45.2); HEMOGLOBIN 10.8 GM/dL (10.7-15.3); LYMPH % 17.4 % (8-40); MCH 29.2 pg (25.7-33.7); MCHC 32.2 g/dl (32.0-36.0); MEAN CELL VOLUME 90.6 fl (80-96); MEAN PLT VOLUME 8.3 fl (7.5-11.1); MONO % 11.6 % (3.8-10.2); NEUT % 69.4 % (42.8-82.8); PLATELET COUNT 291 K/MM3 (134-434); RBC 3.71 M/mm3 (3.60-5.2); RDW 14.9 % (11.6-15.6); WHITE BLOOD COUNT 9.8 K/mm3 (4.0-10.0)
[2020-01-12 09:08] LABS: POTASSIUM 4.2 mmol/L (3.5-5.1)
[2020-01-12 09:11] LABS: CALCIUM 9.4 mg/dL (8.5-10.1)
[2020-01-12 09:12] LABS: MAGNESIUM 2.6 mg/dL (1.8-2.4)
[2020-01-12 09:15] LABS: CREATININE 5.7 mg/dL (0.55-1.3); PHOSPHOROUS 6.7 mg/dL (2.5-4.9)
[2020-01-12 09:17] LABS: TOT PROT 6.2 g/dl (6.4-8.2)
[2020-01-12 09:28] LABS: BLOOD UREA NITROGEN 43.5 mg/dL (7-18)
[2020-01-12] MEDS ORDERED: PT OWN MED DRAWER 7, Y5N ONE (09:38)
[2020-01-12] MEDS: levETIRAcetam XR 500 MG TAB PO SCH (11:00)
[2020-01-12] MEDS: OLANZapine 5 MG TABLET PO SCH ×2 (11:00→22:11)
[2020-01-12] MEDS: APIXABAN 2.5 MG TABLET PO SCH ×2 (11:00→22:11)
[2020-01-12] MEDS: SEVELAMER CARBONATE 800 MG TAB (FP) PO SCH ×3 (11:00→17:25)
[2020-01-12] MEDS: BUDESONIDE/FORMETEROL FUMARATE 80/4.5 mcg INHALER IH SCH ×2 (11:00→22:20)
[2020-01-12] MEDS ORDERED: EPOETIN ALFA-EPBX 4,000 UNIT/ML VIAL IVPUSH ONE (14:45)
[2020-01-12] MEDS: ROSUVASTATIN CA 10 MG TABLET (FP) PO SCH (22:19)
[2020-01-13] MEDS: INSULIN SLIDING SCALE (NOVOLOG) 1 VIAL SQ SCH ×4 (06:46→22:15)
[2020-01-13] MEDS: SEVELAMER CARBONATE 800 MG TAB (FP) PO SCH ×3 (08:37→17:07)
[2020-01-13 08:57] LABS: POTASSIUM 3.7 mmol/L (3.5-5.1)
[2020-01-13 09:03] LABS: BLOOD UREA NITROGEN 26.8 mg/dL (7-18); CALCIUM 8.8 mg/dL (8.5-10.1); MAGNESIUM 2.2 mg/dL (1.8-2.4)
[2020-01-13 09:07] LABS: CREATININE 4.3 mg/dL (0.55-1.3); PHOSPHOROUS 5.2 mg/dL (2.5-4.9)
[2020-01-13] MEDS ORDERED: PT OWN MED DRAWER 7, Y5N ONE ×2 (09:23→09:58)
[2020-01-13] MEDS: OLANZapine 5 MG TABLET PO SCH ×2 (09:59→22:18)
[2020-01-13] MEDS: APIXABAN 2.5 MG TABLET PO SCH ×3 (09:59→22:15)
[2020-01-13] MEDS: BUDESONIDE/FORMETEROL FUMARATE 80/4.5 mcg INHALER IH SCH ×2 (09:59→22:16)
[2020-01-13] MEDS: levETIRAcetam XR 500 MG TAB PO SCH (10:00)
[2020-01-13] MEDS ORDERED: INSULIN (NOVOLOG) ASPART 100 UNITS/ML 10ML VIAL ONE (11:12)
[2020-01-13] MEDS ORDERED: SODIUM CHLORIDE 250 ML IV PRN (13:34)
[2020-01-13] MEDS: ALBUTEROL SO4 HFA INHALER IH PRN (17:08)
[2020-01-13] MEDS: ROSUVASTATIN CA 10 MG TABLET (FP) PO SCH ×2 (22:15)
[2020-01-14] MEDS: INSULIN SLIDING SCALE (NOVOLOG) 1 VIAL SQ SCH ×4 (08:06→23:30)
[2020-01-14] MEDS: SEVELAMER CARBONATE 800 MG TAB (FP) PO SCH ×3 (08:29→17:04)
[2020-01-14] MEDS ORDERED: PT OWN MED DRAWER 7, Y5N ONE (08:30)
[2020-01-14 09:11] LABS: BASO % 0.4 % (0-2.0); HEMATOCRIT 31.2 % (32.4-45.2); HEMOGLOBIN 10.2 GM/dL (10.7-15.3); LYMPH % 21.2 % (8-40); MCH 29.3 pg (25.7-33.7); MCHC 32.7 g/dl (32.0-36.0); MEAN CELL VOLUME 89.6 fl (80-96); MEAN PLT VOLUME 8.6 fl (7.5-11.1); MONO % 11.5 % (3.8-10.2); NEUT % 64.9 % (42.8-82.8); PLATELET COUNT 339 K/MM3 (134-434); RBC 3.49 M/mm3 (3.60-5.2); WHITE BLOOD COUNT 7.5 K/mm3 (4.0-10.0)
[2020-01-14] MEDS: BUDESONIDE/FORMETEROL FUMARATE 80/4.5 mcg INHALER IH SCH (09:20)
[2020-01-14] MEDS: APIXABAN 2.5 MG TABLET PO SCH (09:20)
[2020-01-14] MEDS: levETIRAcetam XR 500 MG TAB PO SCH (09:20)
[2020-01-14] MEDS: OLANZapine 5 MG TABLET PO SCH (09:20)
[2020-01-14 09:33] LABS: POTASSIUM 3.9 mmol/L (3.5-5.1)
[2020-01-14 09:39] LABS: ALBUMIN 2.9 g/dl (3.4-5.0); BLOOD UREA NITROGEN 44.2 mg/dL (7-18); CALCIUM 8.9 mg/dL (8.5-10.1); MAGNESIUM 2.4 mg/dL (1.8-2.4)
[2020-01-14 09:42] LABS: BILIRUBIN,TOTAL 0.6 mg/dL (0.2-1); CREATININE 5.8 mg/dL (0.55-1.3); PHOSPHOROUS 5.6 mg/dL (2.5-4.9)
[2020-01-14 09:43] LABS: TOT PROT 6.2 g/dl (6.4-8.2)
[2020-01-14] MEDS ORDERED: VANCOMYCIN 1 GM in D5W (PRE-DOCKED) 1,000 MG/250 ML IVPB ONE ×2 (11:56→17:15)
[2020-01-14] MEDS ORDERED: HALOPERIDOL LACTATE 5 MG/ML IM ONE (12:05)
[2020-01-15] MEDS: OLANZapine 5 MG TABLET PO SCH ×4 (00:17→23:01)
[2020-01-15] MEDS: APIXABAN 2.5 MG TABLET PO SCH ×4 (00:17→23:01)
[2020-01-15] MEDS: ROSUVASTATIN CA 10 MG TABLET (FP) PO SCH ×3 (00:17→23:01)
[2020-01-15] MEDS: BUDESONIDE/FORMETEROL FUMARATE 80/4.5 mcg INHALER IH SCH ×3 (00:18→23:03)
[2020-01-15] MEDS: INSULIN SLIDING SCALE (NOVOLOG) 1 VIAL SQ SCH ×4 (06:16→22:57)
[2020-01-15] MEDS: SEVELAMER CARBONATE 800 MG TAB (FP) PO SCH ×3 (08:16→17:35)
[2020-01-15 09:14] LABS: BASO % 0.4 % (0-2.0); EOS % 2.3 % (0-4.5); HEMATOCRIT 32.9 % (32.4-45.2); HEMOGLOBIN 10.6 GM/dL (10.7-15.3); LYMPH % 24.6 % (8-40); MCHC 32.3 g/dl (32.0-36.0); MEAN CELL VOLUME 89.9 fl (80-96); MEAN PLT VOLUME 8.5 fl (7.5-11.1); MONO % 11.3 % (3.8-10.2); NEUT % 61.4 % (42.8-82.8); PLATELET COUNT 377 K/MM3 (134-434); RBC 3.66 M/mm3 (3.60-5.2); RDW 15.2 % (11.6-15.6); WHITE BLOOD COUNT 6.8 K/mm3 (4.0-10.0)
[2020-01-15 09:52] LABS: POTASSIUM 3.7 mmol/L (3.5-5.1)
[2020-01-15 10:01] LABS: BLOOD UREA NITROGEN 19.5 mg/dL (7-18)
[2020-01-15 10:06] LABS: CALCIUM 8.9 mg/dL (8.5-10.1)
[2020-01-15 10:08] LABS: MAGNESIUM 2.1 mg/dL (1.8-2.4)
[2020-01-15 10:10] LABS: CREATININE 3.8 mg/dL (0.55-1.3); PHOSPHOROUS 3.8 mg/dL (2.5-4.9)
[2020-01-15] MEDS ORDERED: PT OWN MED DRAWER 7, Y5N ONE (10:10)
[2020-01-15 10:11] LABS: BILIRUBIN,TOTAL 0.6 mg/dL (0.2-1); TOT PROT 6.6 g/dl (6.4-8.2)
[2020-01-15] MEDS: levETIRAcetam XR 500 MG TAB PO SCH (10:17)
[2020-01-16] MEDS: INSULIN SLIDING SCALE (NOVOLOG) 1 VIAL SQ SCH ×4 (06:34→23:31)
[2020-01-16 08:36] LABS: POTASSIUM 3.8 mmol/L (3.5-5.1)
[2020-01-16 08:46] LABS: HEMATOCRIT 34.8 % (32.4-45.2); HEMOGLOBIN 11.7 GM/dL (10.7-15.3); MCH 29.9 pg (25.7-33.7); MCHC 33.5 g/dl (32.0-36.0); MEAN CELL VOLUME 89.3 fl (80-96); MEAN PLT VOLUME 8.2 fl (7.5-11.1); PLATELET COUNT 386 K/MM3 (134-434); RDW 15.2 % (11.6-15.6); WHITE BLOOD COUNT 8.2 K/mm3 (4.0-10.0)
[2020-01-16] MEDS: SEVELAMER CARBONATE 800 MG TAB (FP) PO SCH ×4 (08:51→17:27)
[2020-01-16 09:15] LABS: BLOOD UREA NITROGEN 37.6 mg/dL (7-18); CALCIUM 9.3 mg/dL (8.5-10.1)
[2020-01-16 09:18] LABS: CREATININE 5.7 mg/dL (0.55-1.3)
[2020-01-16] MEDS: BUDESONIDE/FORMETEROL FUMARATE 80/4.5 mcg INHALER IH SCH ×3 (10:25→23:31)
[2020-01-16] MEDS: levETIRAcetam XR 500 MG TAB PO SCH ×2 (10:48→12:16)
[2020-01-16] MEDS: OLANZapine 5 MG TABLET PO SCH ×3 (10:48→23:30)
[2020-01-16] MEDS: APIXABAN 2.5 MG TABLET PO SCH ×3 (10:48→23:30)
[2020-01-16 11:45] LABS: ANISOCYTOSIS 0; MACROCYTOSIS 0; PLATELET ESTIMATE NORMAL
[2020-01-16] MEDS ORDERED: PT OWN MED DRAWER 7, Y5N ONE (12:12)
[2020-01-16] MEDS: ROSUVASTATIN CA 10 MG TABLET (FP) PO SCH (23:30)
[2020-01-17] MEDS: INSULIN SLIDING SCALE (NOVOLOG) 1 VIAL SQ SCH ×4 (06:25→21:22)
[2020-01-17 08:13] LABS: BASO % 0.3 % (0-2.0); EOS % 2.5 % (0-4.5); HEMATOCRIT 31.3 % (32.4-45.2); HEMOGLOBIN 10.1 GM/dL (10.7-15.3); LYMPH % 26.5 % (8-40); MCH 29.1 pg (25.7-33.7); MCHC 32.4 g/dl (32.0-36.0); MEAN CELL VOLUME 89.9 fl (80-96); MEAN PLT VOLUME 8.2 fl (7.5-11.1); MONO % 9.9 % (3.8-10.2); NEUT % 60.8 % (42.8-82.8); PLATELET COUNT 402 K/MM3 (134-434); RBC 3.48 M/mm3 (3.60-5.2); RDW 14.8 % (11.6-15.6); WHITE BLOOD COUNT 7.9 K/mm3 (4.0-10.0)
[2020-01-17 08:16] LABS: POTASSIUM 4.3 mmol/L (3.5-5.1)
[2020-01-17 08:19] LABS: CALCIUM 8.8 mg/dL (8.5-10.1)
[2020-01-17 08:20] LABS: BLOOD UREA NITROGEN 55.1 mg/dL (7-18)
[2020-01-17 08:23] LABS: CREATININE 6.8 mg/dL (0.55-1.3)
[2020-01-17] MEDS: SEVELAMER CARBONATE 800 MG TAB (FP) PO SCH ×3 (08:31→17:56)
[2020-01-17] MEDS: APIXABAN 2.5 MG TABLET PO SCH ×2 (10:09→21:00)
[2020-01-17] MEDS: OLANZapine 5 MG TABLET PO SCH ×2 (10:09→21:00)
[2020-01-17] MEDS: levETIRAcetam XR 500 MG TAB PO SCH (10:10)
[2020-01-17] MEDS: BUDESONIDE/FORMETEROL FUMARATE 80/4.5 mcg INHALER IH SCH ×2 (10:13→21:05)
[2020-01-17] MEDS ORDERED: PT OWN MED DRAWER 7, Y5N ONE (12:07)
[2020-01-17] MEDS ORDERED: VANCOMYCIN 1 GM in D5W (PRE-DOCKED) 1,000 MG/250 ML IVPB ONE (16:02)
[2020-01-17] MEDS ORDERED: SODIUM CHLORIDE 250 ML IV PRN (16:36)
[2020-01-17] MEDS: ROSUVASTATIN CA 10 MG TABLET (FP) PO SCH (21:00)
[2020-01-18] MEDS: INSULIN SLIDING SCALE (NOVOLOG) 1 VIAL SQ SCH ×2 (06:00→11:18)
[2020-01-18] MEDS: SEVELAMER CARBONATE 800 MG TAB (FP) PO SCH ×2 (11:06→11:17)
[2020-01-18] MEDS ORDERED: PT OWN MED DRAWER 7, Y5N ONE (11:07)
[2020-01-18] MEDS: OLANZapine 5 MG TABLET PO SCH (11:17)
[2020-01-18] MEDS: APIXABAN 2.5 MG TABLET PO SCH (11:17)
[2020-01-18] MEDS: levETIRAcetam XR 500 MG TAB PO SCH (11:18)
[2020-01-18] MEDS: BUDESONIDE/FORMETEROL FUMARATE 80/4.5 mcg INHALER IH SCH (11:18)
[2020-01-18 12:20] VITALS: BMI 19.1
[2020-01-18 13:17] VITALS: BP 134/64; PULSE 80; TEMP 97.6
[2020-01-19] MEDS ORDERED: VITAMIN B COMP W-C 1 EA TABLET (NEPHRO-VITE) PO SCH (10:00)
== END 2020-01-18 17:48 | disposition home health service (06) | DRG 871 ==
LOC: JER 11:00 → JERBED 14:19 → J6S 17:32
PROVIDERS: ATTEND Internal Medicine
PROC: 5A1D70Z Performance of Urinary Filtration, Intermittent, Less than 6 Hours Per Day (ICD-10-PCS; principal; 2020-01-17)
DX: A41.02 Sepsis due to Methicillin resistant Staphylococcus aureus (principal); N18.6 End stage renal disease; J18.9 Pneumonia, unspecified organism; I13.2 Hypertensive heart and chronic kidney disease with heart failure and with stage 5 chronic kidney disease, or end stage renal disease; J98.11 Atelectasis; J44.9 Chronic obstructive pulmonary disease, unspecified; E11.9 Type 2 diabetes mellitus without complications; I48.91 Unspecified atrial fibrillation; Z99.2 Dependence on renal dialysis; E78.5 Hyperlipidemia, unspecified; D64.9 Anemia, unspecified; K21.9 Gastro-esophageal reflux disease without esophagitis; J45.909 Unspecified asthma, uncomplicated; E87.5 Hyperkalemia
CPT/HCPCS: 36415; 71045-TC-FY; 80048; 80053; 81003; 82728; 82962; 83605; 83615; 83735; 84100; 84484; 85025; 85379; 85610; 85730; 86140; 86803; 87040; 87070; 87086; 87186; 87205; 87340; 87899; 93005; 93010; 93306-TC; 94640; 97116-GP; 97161-GP; 99285-25; C9803; G0480; J0131; Q5106; U0003